=== PATIENT | female | born 1945 | race Caucasian/White ===

== ENCOUNTER → 2016-11-13 | Outpatient (REF) | payer MEDICARE ==
[~2016-11-13] MED LIST: /ADVA50050 IN; /CELE20CA OR; /TIOT18INH INH; ACET65TA OR; ALBU83IN IN; ASPI81TA63 OR; ATOR1TAB21 PO; B-1250TA3 PO; CALC600T71 PO; COLA100C PO; COLA100C2 OR; DIGO0.126 OR; DIOV160T5 OR; DULC5TAB PO; ELIQ5TAB PO; FENO1CAP PO; FOLI1TAB OR; FOLI1TAB2 PO; FURO40TA2 PO; GLUC500T OR; LASI40TA OR; LOPR50TA OR; METF1000 PO; METH2.5T OR; METO50TA2 PO; MEXI15CA PO; MIRA3350 PO; NICO21DI4 TD; OMEG100011 PO; OMEP20TA7 OR; PERC5TAB6 PO; PRED10TA2 OR; PROA1AER INH; RANI300T PO; SIMV40TA2 OR; TRAM50TA2 OR; TRIC145T19 OR; VALS1TAB47 PO; VITA1CAP7 PO
[2016-11-13 12:46] LABS: ALBUMIN/GLOBULIN RATIO 0.94 (1.00-1.93); BILIRUBIN,TOTAL 0.2 MG/DL (0.2-1.0); CALCIUM LEVEL 8.3 MG/DL (8.8-10.2); CREATININE FOR GFR 1.25 MG/DL (0.55-1.02); GLOMERULAR FILTRATION RATE 45.2 (>45); POTASSIUM SERUM 4.2 MEQ/L (3.5-5.1); TOTAL PROTEIN 6.2 GM/DL (6.4-8.2)
[2016-11-13 12:47] LABS: MEAN CORPUSCULAR HEMOGLOBIN 31.2 pg (27.0-33.0); MEAN CORPUSCULAR HGB CONC 31.7 g/dl (32.0-36.5); MEAN CORPUSCULAR VOLUME 98.6 fl (80.0-96.0); RED CELL DISTRIBUTION WIDTH 14.3 % (11.5-14.5); WHITE BLOOD COUNT 6.4 K/mm3 (4.0-10.0)
== END ==
LOC: M LABDRAW1 11:46
PROVIDERS: ATTEND Nurse Practitioner Family
DX: E55.9 Vitamin D deficiency, unspecified (principal); E78.00 Pure hypercholesterolemia, unspecified; E11.9 Type 2 diabetes mellitus without complications; I10 Essential (primary) hypertension

== ENCOUNTER → 2016-11-14 | Outpatient (CLI) | payer MEDICARE ==
--- NOTE | 2016-11-14 11:19 | REP ---
CT LEFT HIP: CT left hip is performed in the axial plane. Sagittal and coronal reconstruction images are performed. I see no evidence of acute fracture or dislocation. Old fracture is noted of the right pubis. There are moderate degenerative changes at the left hip joint with moderate diffuse joint space narrowing, subchondral sclerosis and spurring. No suspicious bone lesion is seen in this region. There are vascular calcifications diffusely with an arterial graft crossing from the left common femoral artery over toward the right. No other significant abnormality is seen of the visualized soft tissue structures. IMPRESSION: Moderate degenerative changes. No acute fracture. Old fracture right pubis. Signed by Raymundo Baeza MD 11/14/2016 04:42 P
== END ==
LOC: M RAD 09:27
PROVIDERS: ATTEND Orthopaedic Surgery
DX: M16.12 Unilateral primary osteoarthritis, left hip (principal)

== ENCOUNTER → 2016-12-31 | Outpatient (REF) | payer MEDICARE ==
[~2016-12-31] MED LIST changes: -COLA100C PO; +COLA100C3 PO
[2016-12-31 14:02] LABS: MEAN CORPUSCULAR HEMOGLOBIN 30.8 pg (27.0-33.0); MEAN CORPUSCULAR HGB CONC 32.3 g/dl (32.0-36.5); MEAN CORPUSCULAR VOLUME 95.4 fl (80.0-96.0); RED CELL DISTRIBUTION WIDTH 14.7 % (11.5-14.5); WHITE BLOOD COUNT 5.4 K/mm3 (4.0-10.0)
[2016-12-31 14:25] LABS: ALBUMIN 3.1 GM/DL (3.2-5.2); ALBUMIN/GLOBULIN RATIO 1.11 (1.00-1.93); ALKALINE PHOSPHATASE 50 U/L (45-117); ALT/SGPT 13 U/L (12-78); ANION GAP 5 MEQ/L (8-16); AST/SGOT 8 U/L (15-37); BILIRUBIN,DIRECT < 0.1 MG/DL (0.0-0.2); BILIRUBIN,TOTAL 0.2 MG/DL (0.2-1.0); BLOOD UREA NITROGEN 29 MG/DL (7-18); CALCIUM LEVEL 8.4 MG/DL (8.8-10.2); CARBON DIOXIDE LEVEL 35 MEQ/L (21-32); CHLORIDE LEVEL 102 MEQ/L (98-107); CHOLESTEROL LEVEL 147 MG/DL (<200); CREATININE FOR GFR 0.96 MG/DL (0.55-1.02); GLOMERULAR FILTRATION RATE > 60.0 (>45); GLUCOSE, FASTING 90 MG/DL (80-110); POTASSIUM SERUM 4.4 MEQ/L (3.5-5.1); SODIUM LEVEL 142 MEQ/L (136-145); TOTAL PROTEIN 5.9 GM/DL (6.4-8.2); TRIGLYCERIDES LEVEL 143 MG/DL (<150)
== END ==
LOC: M LABDRAW1 12:56
PROVIDERS: ATTEND Nurse Practitioner Family
DX: E11.9 Type 2 diabetes mellitus without complications (principal); I10 Essential (primary) hypertension; K21.9 Gastro-esophageal reflux disease without esophagitis; J44.9 Chronic obstructive pulmonary disease, unspecified; I50.9 Heart failure, unspecified; D64.9 Anemia, unspecified

== ENCOUNTER → 2017-02-12 | Outpatient (REF) | payer MEDICARE ==
[2017-02-12 16:15] LABS: FREE T4 1.27 NG/DL (0.76-1.46); PERCENT SATURATION 27.2 % (13.2-37.4)
== END ==
LOC: M LABDRAW1 13:02
PROVIDERS: ATTEND Internal Medicine Cardiovascular Disease
DX: R53.83 Other fatigue (principal); D64.9 Anemia, unspecified

== ENCOUNTER → 2017-04-25 | Outpatient (REF) | payer MEDICARE ==
[~2017-04-25] MED LIST changes: +CALC1TAB5 PO; -CALC600T71 PO; -COLA100C3 PO; +COLA100C5 PO; -FOLI1TAB2 PO; +FOLI1TAB4 PO; -METF1000 PO; +METF10004 PO; -METO50TA2 PO; +METO50TA7 PO; +PERC5TAB12 PO; -PERC5TAB6 PO; -PROA1AER INH; +PROAAER10 INH
[2017-04-25 14:16] LABS: MEAN CORPUSCULAR HEMOGLOBIN 31.5 pg (27.0-33.0); MEAN CORPUSCULAR HGB CONC 32.8 g/dl (32.0-36.5); MEAN CORPUSCULAR VOLUME 95.8 fl (80.0-96.0); RED CELL DISTRIBUTION WIDTH 14.4 % (11.5-14.5)
[2017-04-25 14:28] LABS: ALBUMIN 3.6 GM/DL (3.2-5.2); ALBUMIN/GLOBULIN RATIO 1.03 (1.00-1.93); BILIRUBIN,TOTAL 0.3 MG/DL (0.2-1.0); CALCIUM LEVEL 9.2 MG/DL (8.8-10.2); CREATININE FOR GFR 1.18 MG/DL (0.55-1.02); GLOMERULAR FILTRATION RATE 48.2 (>39); PERCENT SATURATION 24.2 % (13.2-45.0); TOTAL PROTEIN 7.1 GM/DL (6.4-8.2)
== END ==
LOC: M LABDRAW1 13:54
PROVIDERS: ATTEND Nurse Practitioner Family
DX: E78.5 Hyperlipidemia, unspecified (principal); I10 Essential (primary) hypertension; E11.9 Type 2 diabetes mellitus without complications; D64.9 Anemia, unspecified; E55.9 Vitamin D deficiency, unspecified

== ENCOUNTER → 2017-08-04 | Outpatient (REF) | payer OTHER ==
[2017-08-04 16:15] LABS: MEAN CORPUSCULAR HGB CONC 31.3 g/dl (32.0-36.5); MEAN CORPUSCULAR VOLUME 99.1 fl (80.0-96.0); PLATELET COUNT, AUTOMATED 221 10^3/uL (150-450); RED CELL DISTRIBUTION WIDTH 14.3 % (11.5-14.5); WHITE BLOOD COUNT 6.1 10^3/uL (4.0-10.0)
[2017-08-04 16:44] LABS: ALBUMIN 3.3 GM/DL (3.2-5.2); ALBUMIN/GLOBULIN RATIO 1.06 (1.00-1.93); BILIRUBIN,TOTAL 0.3 MG/DL (0.2-1.0); CALCIUM LEVEL 8.8 MG/DL (8.8-10.2); CREATININE FOR GFR 1.01 MG/DL (0.55-1.02); GLOMERULAR FILTRATION RATE 57.7 (>39); POTASSIUM SERUM 4.4 MEQ/L (3.5-5.1); TOTAL PROTEIN 6.4 GM/DL (6.4-8.2)
== END ==
LOC: M LABDRAW1 15:40
PROVIDERS: ATTEND Internal Medicine Cardiovascular Disease
DX: E78.00 Pure hypercholesterolemia, unspecified (principal); I10 Essential (primary) hypertension; E11.9 Type 2 diabetes mellitus without complications

== ENCOUNTER → 2017-08-04 | Outpatient (REF) | payer OTHER ==
[2017-08-04 16:13] LABS: BASO % 0.5 % (0.0-1.0); EOS # 0.3 10^3/uL (0.0-0.50); EOS % 4.1 % (0.0-3.0); IMMATURE GRANULOCYTE % 0.5 % (0-0); LYMPH # 2.1 10^3/uL (1.5-4.5); LYMPH % 34.7 % (24.0-44.0); MEAN CORPUSCULAR HGB CONC 31.3 g/dl (32.0-36.5); MEAN CORPUSCULAR VOLUME 99.1 fl (80.0-96.0); MONO # 0.6 10^3/uL (0.0-0.8); MONO % 9.7 % (0.0-5.0); NEUTROPHILS # 3.1 10^3/uL (1.8-7.7); NEUTROPHILS % 50.5 % (36.0-66.0); PLATELET COUNT, AUTOMATED 221 10^3/uL (150-450); RED CELL DISTRIBUTION WIDTH 14.3 % (11.5-14.5); WHITE BLOOD COUNT 6.1 10^3/uL (4.0-10.0)
[2017-08-04 16:36] LABS: ALBUMIN 3.3 GM/DL (3.2-5.2); ALBUMIN/GLOBULIN RATIO 1.1 (1.00-1.93); BILIRUBIN,TOTAL 0.3 MG/DL (0.2-1.0); CALCIUM LEVEL 8.9 MG/DL (8.8-10.2); CREATININE FOR GFR 1.01 MG/DL (0.55-1.02); GLOMERULAR FILTRATION RATE 57.7 (>39); POTASSIUM SERUM 4.4 MEQ/L (3.5-5.1); TOTAL PROTEIN 6.3 GM/DL (6.4-8.2)
== END ==
LOC: M LABDRAW1 15:45
PROVIDERS: ATTEND Internal Medicine Cardiovascular Disease
DX: I50.42 Chronic combined systolic (congestive) and diastolic (congestive) heart failure (principal); I48.0 Paroxysmal atrial fibrillation

== ENCOUNTER → 2017-12-23 | Outpatient (REF) | payer OTHER ==
[2017-12-23 15:28] LABS: HEMATOCRIT 34.2 % (36.0-47.0); HEMOGLOBIN 10.7 g/dl (12.0-15.5); MEAN CORPUSCULAR HGB CONC 31.3 g/dl (32.0-36.5); MEAN CORPUSCULAR VOLUME 95.8 fl (80.0-96.0); PLATELET COUNT, AUTOMATED 242 10^3/uL (150-450); RED BLOOD COUNT 3.57 10^6/uL (4.00-5.40); RED CELL DISTRIBUTION WIDTH 14.2 % (11.5-14.5); WHITE BLOOD COUNT 7.2 10^3/uL (4.0-10.0)
[2017-12-23 15:52] LABS: ANION GAP 5 MEQ/L (8-16); BLOOD UREA NITROGEN 24 MG/DL (7-18); CALCIUM LEVEL 9.2 MG/DL (8.8-10.2); CARBON DIOXIDE LEVEL 34 MEQ/L (21-32); CHLORIDE LEVEL 105 MEQ/L (98-107); CREATININE FOR GFR 1.49 MG/DL (0.55-1.30); GLOMERULAR FILTRATION RATE 36.8 (>39); GLUCOSE, FASTING 176 MG/DL (70-100); POTASSIUM SERUM 4.2 MEQ/L (3.5-5.1); SODIUM LEVEL 144 MEQ/L (136-145)
== END ==
LOC: M LABDRAW1 14:17
DX: I48.91 Unspecified atrial fibrillation (principal)
CPT/HCPCS: 80048

== ENCOUNTER → 2018-01-02 | Outpatient (CLI) | payer OTHER ==
[2018-01-02 08:29] LABS: INR 1.09; PROTHROMBIN TIME 14.3 SECONDS (12.4-14.5)
[2018-01-02 08:47] LABS: ANION GAP 5 MEQ/L (8-16); BLOOD UREA NITROGEN 30 MG/DL (7-18); CALCIUM LEVEL 8.6 MG/DL (8.8-10.2); CARBON DIOXIDE LEVEL 34 MEQ/L (21-32); CHLORIDE LEVEL 104 MEQ/L (98-107); CREATININE FOR GFR 1.55 MG/DL (0.55-1.30); GLOMERULAR FILTRATION RATE 35.2 (>39); GLUCOSE, FASTING 101 MG/DL (70-100); POTASSIUM SERUM 4.2 MEQ/L (3.5-5.1); SODIUM LEVEL 143 MEQ/L (136-145)
== END ==
LOC: M LAB 06:47
DX: Z79.01 Long term (current) use of anticoagulants (principal); Z79.899 Other long term (current) drug therapy
CPT/HCPCS: 83735

== ENCOUNTER → 2018-01-23 | Outpatient (REF) | payer OTHER ==
[2018-01-23 15:35] LABS: HEMATOCRIT 28.1 % (36.0-47.0); HEMOGLOBIN 8.9 g/dl (12.0-15.5); MEAN CORPUSCULAR HEMOGLOBIN 30.2 pg (27.0-33.0); MEAN CORPUSCULAR HGB CONC 31.7 g/dl (32.0-36.5); MEAN CORPUSCULAR VOLUME 95.3 fl (80.0-96.0); PLATELET COUNT, AUTOMATED 218 10^3/uL (150-450); RED BLOOD COUNT 2.95 10^6/uL (4.00-5.40); RED CELL DISTRIBUTION WIDTH 14.6 % (11.5-14.5); WHITE BLOOD COUNT 6.6 10^3/uL (4.0-10.0)
[2018-01-23 15:43] LABS: ANION GAP 5 MEQ/L (8-16); BLOOD UREA NITROGEN 38 MG/DL (7-18); CALCIUM LEVEL 8.9 MG/DL (8.8-10.2); CARBON DIOXIDE LEVEL 33 MEQ/L (21-32); CHLORIDE LEVEL 105 MEQ/L (98-107); CREATININE FOR GFR 1.61 MG/DL (0.55-1.30); GLOMERULAR FILTRATION RATE 33.7 (>39); GLUCOSE, FASTING 97 MG/DL (70-100); POTASSIUM SERUM 4.3 MEQ/L (3.5-5.1); SODIUM LEVEL 143 MEQ/L (136-145)
== END ==
LOC: M LABDRAW1 11:18
DX: I48.91 Unspecified atrial fibrillation (principal)
CPT/HCPCS: 80048

== ENCOUNTER → 2018-03-30 | Outpatient (REF) | payer OTHER ==
[2018-03-30 13:31] LABS: HEMOGLOBIN 9.6 g/dl (12.0-15.5); MEAN CORPUSCULAR HEMOGLOBIN 30.9 pg (27.0-33.0); MEAN CORPUSCULAR VOLUME 99.7 fl (80.0-96.0); PLATELET COUNT, AUTOMATED 273 10^3/uL (150-450); RED BLOOD COUNT 3.11 10^6/uL (4.00-5.40); RED CELL DISTRIBUTION WIDTH 14.2 % (11.5-14.5)
[2018-03-30 13:51] LABS: ALBUMIN 3.3 GM/DL (3.2-5.2); ALBUMIN/GLOBULIN RATIO 0.92 (1.00-1.93); ALKALINE PHOSPHATASE 82 U/L (45-117); ALT/SGPT 12 U/L (12-78); ANION GAP 7 MEQ/L (8-16); AST/SGOT 10 U/L (7-37); BILIRUBIN,TOTAL 0.3 MG/DL (0.2-1.0); BLOOD UREA NITROGEN 31 MG/DL (7-18); CALCIUM LEVEL 8.7 MG/DL (8.8-10.2); CARBON DIOXIDE LEVEL 32 MEQ/L (21-32); CHLORIDE LEVEL 104 MEQ/L (98-107); CHOLESTEROL LEVEL 115 MG/DL (<200); CHOLESTEROL RISK RATIO 3.382 (<5); CPK CREATINE PHOSPHOKINASE 30 U/L (26-192); CREATININE FOR GFR 1.39 MG/DL (0.55-1.30); FERRITIN 25 NG/ML (8-252); GLOMERULAR FILTRATION RATE 39.8 (>39); GLUCOSE, FASTING 83 MG/DL (70-100); HDL CHOLESTEROL 34 MG/DL (>40); IRON (FE) 50 UG/DL (50-170); LDL CHOLESTEROL 51.6 MG/DL (<100); NON-HDL-C 81 MG/DL; PERCENT SATURATION 19.6 % (13.2-45.0); POTASSIUM SERUM 5.1 MEQ/L (3.5-5.1); SODIUM LEVEL 143 MEQ/L (136-145); TOTAL IRON BINDING CAPACITY 255 UG/DL (250-450); TOTAL PROTEIN 6.9 GM/DL (6.4-8.2); TRIGLYCERIDES LEVEL 147 MG/DL (<150)
[2018-03-30 13:55] LABS: ESTIMATED AVERAGE GLUCOSE 82 MG/DL (60-110); HEMOGLOBIN A1c 4.5 %
[2018-03-30 14:25] LABS: CREATININE, URINE 64.4 MG/DL; MALB URINE SIEMENS 5.1 MG/L; MAU/CREAT RATIO 7.9 MCG/MG (0.0-30.0)
== END ==
LOC: M LABDRAW1 13:06
DX: I10 Essential (primary) hypertension (principal); E11.9 Type 2 diabetes mellitus without complications; E78.00 Pure hypercholesterolemia, unspecified
CPT/HCPCS: 82550

== ENCOUNTER → 2018-06-05 | Outpatient (REF) | payer OTHER ==
[2018-06-05 11:47] LABS: HEMATOCRIT 34.7 % (36.0-47.0); HEMOGLOBIN 11.1 g/dl (12.0-15.5); MEAN CORPUSCULAR HEMOGLOBIN 30.7 pg (27.0-33.0); MEAN CORPUSCULAR VOLUME 95.9 fl (80.0-96.0); PLATELET COUNT, AUTOMATED 267 10^3/uL (150-450); RED BLOOD COUNT 3.62 10^6/uL (4.00-5.40); WHITE BLOOD COUNT 7.5 10^3/uL (4.0-10.0)
[2018-06-05 13:39] LABS: ALBUMIN 3.8 GM/DL (3.2-5.2); ALBUMIN/GLOBULIN RATIO 1.12 (1.00-1.93); ALKALINE PHOSPHATASE 88 U/L (45-117); ALT/SGPT 10 U/L (12-78); ANION GAP 8 MEQ/L (8-16); AST/SGOT 10 U/L (7-37); BILIRUBIN,TOTAL 0.4 MG/DL (0.2-1.0); BLOOD UREA NITROGEN 35 MG/DL (7-18); CALCIUM LEVEL 9.8 MG/DL (8.8-10.2); CARBON DIOXIDE LEVEL 33 MEQ/L (21-32); CHLORIDE LEVEL 101 MEQ/L (98-107); CHOLESTEROL LEVEL 145 MG/DL (<200); CHOLESTEROL RISK RATIO 4.027 (<5); CPK CREATINE PHOSPHOKINASE 51 U/L (26-192); CREATININE FOR GFR 1.53 MG/DL (0.55-1.30); GLOMERULAR FILTRATION RATE 35.6 (>39); GLUCOSE, FASTING 95 MG/DL (70-100); HDL CHOLESTEROL 36 MG/DL (>40); LDL CHOLESTEROL 68 MG/DL (<100); NON-HDL-C 109 MG/DL; SODIUM LEVEL 142 MEQ/L (136-145); TOTAL PROTEIN 7.2 GM/DL (6.4-8.2); TRIGLYCERIDES LEVEL 207 MG/DL (<150)
[2018-06-05 14:19] LABS: CREATININE, URINE 16.8 MG/DL; MALB URINE SIEMENS < 5.0 MG/L
[2018-06-05 14:20] LABS: ESTIMATED AVERAGE GLUCOSE 97 MG/DL (60-110)
[2018-06-05 14:21] LABS: MAU/CREAT RATIO 29.8 MCG/MG (0.0-30.0)
== END ==
LOC: M LABDRAW1 10:51
DX: E11.9 Type 2 diabetes mellitus without complications (principal); I10 Essential (primary) hypertension; E78.00 Pure hypercholesterolemia, unspecified
CPT/HCPCS: 82550

== ENCOUNTER → 2018-10-14 | Outpatient (REF) | payer OTHER ==
[~2018-10-14] MED LIST changes: +FOLI1TAB11 PO; -FOLI1TAB4 PO
[2018-10-14 13:37] LABS: HEMATOCRIT 33.4 % (36.0-47.0); HEMOGLOBIN 10.1 g/dl (12.0-15.5); MEAN CORPUSCULAR HEMOGLOBIN 30.4 pg (27.0-33.0); MEAN CORPUSCULAR HGB CONC 30.2 g/dl (32.0-36.5); MEAN CORPUSCULAR VOLUME 100.6 fl (80.0-96.0); PLATELET COUNT, AUTOMATED 280 10^3/uL (150-450); RED BLOOD COUNT 3.32 10^6/uL (4.00-5.40); WHITE BLOOD COUNT 7.3 10^3/uL (4.0-10.0)
[2018-10-14 13:45] LABS: ALBUMIN 3.6 GM/DL (3.2-5.2); BILIRUBIN,TOTAL 0.4 MG/DL (0.2-1.0); CALCIUM LEVEL 8.8 MG/DL (8.8-10.2); CHOLESTEROL RISK RATIO 3.729 (<5); CREATININE FOR GFR 1.54 MG/DL (0.55-1.30); GLOMERULAR FILTRATION RATE 35.4 (>39); POTASSIUM SERUM 4.5 MEQ/L (3.5-5.1); TOTAL PROTEIN 6.8 GM/DL (6.4-8.2)
[2018-10-14 14:25] LABS: HEMOGLOBIN A1c 4.4 %
[2018-10-14 14:29] LABS: CREATININE, URINE 99.8 MG/DL; MALB URINE SIEMENS 10.4 MG/L; MAU/CREAT RATIO 10.4 MCG/MG (0.0-30.0)
== END ==
LOC: M LABDRAW1 11:23
PROVIDERS: ATTEND Nurse Practitioner Family
DX: J40 Bronchitis, not specified as acute or chronic (principal); I10 Essential (primary) hypertension; E11.9 Type 2 diabetes mellitus without complications; E78.00 Pure hypercholesterolemia, unspecified

== ENCOUNTER → 2019-01-21 | Outpatient (REF) | payer OTHER ==
[~2019-01-21] MED LIST changes: -/ADVA50050 IN; -/CELE20CA OR; -/TIOT18INH INH; +ADVA1AER2 IN; +CELE1CAP4 OR; +D-3-50003 PO; -FENO1CAP PO; +FENO45CA3 PO; +SPIR1CAP INH; -VALS1TAB47 PO; +VALS1TAB67 PO; -VITA1CAP7 PO
[2019-01-21 12:55] LABS: ALBUMIN 3.3 GM/DL (3.2-5.2); BILIRUBIN,TOTAL 0.3 MG/DL (0.2-1.0); CALCIUM LEVEL 8.7 MG/DL (8.8-10.2); CHOLESTEROL RISK RATIO 3.146 (<5); CREATININE FOR GFR 1.57 MG/DL (0.55-1.30); GLOMERULAR FILTRATION RATE 34.6 (>39); POTASSIUM SERUM 4.3 MEQ/L (3.5-5.1); TOTAL PROTEIN 7.1 GM/DL (6.4-8.2)
[2019-01-21 12:56] LABS: HEMOGLOBIN 11.1 g/dl (12.0-15.5); MEAN CORPUSCULAR HEMOGLOBIN 32.1 pg (27.0-33.0); MEAN CORPUSCULAR HGB CONC 30.8 g/dl (32.0-36.5); PLATELET COUNT, AUTOMATED 299 10^3/uL (150-450); RED BLOOD COUNT 3.46 10^6/uL (4.00-5.40); WHITE BLOOD COUNT 7.5 10^3/uL (4.0-10.0)
[2019-01-21 13:02] LABS: TOTAL 25(OH) VITAMIN D 50.2 NG/ML (30.0-100.0)
[2019-01-21 13:14] LABS: HEMOGLOBIN A1c 4.6 %
[2019-01-21 13:21] LABS: CREATININE, URINE 97.8 MG/DL; MALB URINE SIEMENS 15.3 MG/L; MAU/CREAT RATIO 15.6 MCG/MG (0.0-30.0)
== END ==
LOC: M LABDRAW1 11:50
PROVIDERS: ATTEND Nurse Practitioner Family
DX: I10 Essential (primary) hypertension (principal); E78.5 Hyperlipidemia, unspecified; E55.9 Vitamin D deficiency, unspecified

== ENCOUNTER → 2019-03-16 | Outpatient (CLI) | payer MEDICARE ==
--- NOTE | 2019-03-16 23:11 | REP ---
Clinical: History of renal artery aneurysm. Screening for abdominal aortic aneurysm. Technique: Real time parsons scale ultrasound examination using curved array transducer. Findings: Abdominal aorta demonstrates moderate atheromatous plaquing without evidence for aneurysm. No periaortic fluid collections are identified. Proximal aorta 2.2 x 2.3 cm. Mid aorta (renal artery level) gassed out Mid aorta 2.2 x 2.1 cm. Distal aorta 2.6 x 2.3 cm. Right common iliac artery 0.9 cm maximal diameter. Left common iliac artery 0.9 cm maximal diameter. Impression: Atheromatous plaquing without evidence for abdominal aortic aneurysm. Electronically Signed by Eddi Bergman MD 03/16/2019 11:03 P
== END ==
LOC: M RAD 10:08
PROVIDERS: ATTEND Surgery Vascular Surgery
DX: I25.10 Atherosclerotic heart disease of native coronary artery without angina pectoris (principal); I72.2 Aneurysm of renal artery

== ENCOUNTER → 2019-04-30 | Outpatient (REF) | payer MEDICARE ==
[2019-04-30 14:02] LABS: HEMATOCRIT 34.4 % (36.0-47.0); HEMOGLOBIN 10.7 g/dl (12.0-15.5); MEAN CORPUSCULAR HEMOGLOBIN 31.7 pg (27.0-33.0); MEAN CORPUSCULAR HGB CONC 31.1 g/dl (32.0-36.5); MEAN CORPUSCULAR VOLUME 101.8 fl (80.0-96.0); PLATELET COUNT, AUTOMATED 243 10^3/uL (150-450); RED BLOOD COUNT 3.38 10^6/uL (4.00-5.40); WHITE BLOOD COUNT 6.6 10^3/uL (4.0-10.0)
[2019-04-30 14:26] LABS: CALCIUM LEVEL 8.9 MG/DL (8.8-10.2); CREATININE FOR GFR 1.39 MG/DL (0.55-1.30); GLOMERULAR FILTRATION RATE 39.7 (>39)
[2019-04-30 14:27] LABS: ALBUMIN 3.3 GM/DL (3.2-5.2); BILIRUBIN,TOTAL 0.4 MG/DL (0.2-1.0); CHOLESTEROL RISK RATIO 3.136 (<5); TOTAL PROTEIN 6.5 GM/DL (6.4-8.2)
[2019-04-30 14:36] LABS: CREATININE, URINE 73.2 MG/DL; MALB URINE SIEMENS 10.3 MG/L
[2019-04-30 14:44] LABS: HEMOGLOBIN A1c 5.6 %
== END ==
LOC: M LABDRAW1 13:22
PROVIDERS: ATTEND Nurse Practitioner Family
DX: I10 Essential (primary) hypertension (principal); E78.5 Hyperlipidemia, unspecified; E11.9 Type 2 diabetes mellitus without complications; E55.9 Vitamin D deficiency, unspecified

== ENCOUNTER → 2019-07-12 | Outpatient (REF) | payer MEDICARE ==
[2019-07-12 12:54] LABS: HEMATOCRIT 32.6 % (36.0-47.0); HEMOGLOBIN 10.1 g/dl (12.0-15.5); MEAN CORPUSCULAR HEMOGLOBIN 31.2 pg (27.0-33.0); MEAN CORPUSCULAR VOLUME 100.6 fl (80.0-96.0); PLATELET COUNT, AUTOMATED 237 10^3/uL (150-450); RED BLOOD COUNT 3.24 10^6/uL (4.00-5.40); WHITE BLOOD COUNT 8.5 10^3/uL (4.0-10.0)
[2019-07-12 13:18] LABS: ALBUMIN 3.2 GM/DL (3.2-5.2); BILIRUBIN,TOTAL 0.4 MG/DL (0.2-1.0); CALCIUM LEVEL 9.5 MG/DL (8.8-10.2); CHOLESTEROL RISK RATIO 3.357 (<5); CREATININE FOR GFR 1.75 MG/DL (0.55-1.30); GLOMERULAR FILTRATION RATE 30.4 (>39); POTASSIUM SERUM 4.3 MEQ/L (3.5-5.1); TOTAL PROTEIN 6.2 GM/DL (6.4-8.2)
[2019-07-12 15:19] LABS: TOTAL 25(OH) VITAMIN D 68.5 NG/ML (30.0-100.0)
== END ==
LOC: M LABDRAW1 11:31
PROVIDERS: ATTEND Nurse Practitioner Family
DX: I10 Essential (primary) hypertension (principal); E78.49 Other hyperlipidemia; E55.9 Vitamin D deficiency, unspecified

== ENCOUNTER 2019-07-18 01:27 | Emergency (ER) | payer MEDICARE ==
[~2019-07-18] VITALS: Ht 160 cm; Wt 64.5 kg
[2019-07-18] MEDS ORDERED: ASPI325T36 PO (03:39)
[2019-07-18 03:41] VITALS: BP 137/77
== END 2019-07-18 03:55 | disposition home or self-care (01) ==
LOC: M ED 01:27
DX: R04.0 Epistaxis (principal); Z79.899 Other long term (current) drug therapy; Z88.5 Allergy status to narcotic agent; Z88.8 Allergy status to other drugs, medicaments and biological substances

== ENCOUNTER 2019-09-17 22:18 | Emergency (ER) | payer MEDICARE ==
[~2019-09-17 22:18] MED LIST changes: +ASPI325T36 PO
[2019-09-17 23:08] LABS: BASO % 0.5 % (0.0-1.0); EOS # 0.1 10^3/uL (0.0-0.5); EOS % 0.7 % (0.0-3.0); HEMATOCRIT 31.3 % (36.0-47.0); HEMOGLOBIN 9.4 g/dl (12.0-15.5); LYMPH # 0.7 10^3/uL (1.5-5.0); MEAN CORPUSCULAR HEMOGLOBIN 30.4 pg (27.0-33.0); MEAN CORPUSCULAR VOLUME 101.3 fl (80.0-96.0); MONO # 1.3 10^3/uL (0.0-0.8); MONO % 15.3 % (0.0-5.0); NEUTROPHILS # 6.1 10^3/uL (1.5-8.5); NEUTROPHILS % 74.3 % (36.0-66.0); PLATELET COUNT, AUTOMATED 235 10^3/uL (150-450); RED BLOOD COUNT 3.09 10^6/uL (4.00-5.40); VENOUS BASE EXCESS 1.4 (-2.0-2.0); VENOUS HCO3 28.8 MEQ/L (23.0-27.0); VENOUS O2 SATURATION 66.8 % (60.0-80.0); VENOUS PARTIAL PRESSURE CO2 59.2 mmHg (38.0-50.0); VENOUS PARTIAL PRESSURE O2 37.1 mmHg (30.0-50.0); VENOUS PH 7.305 UNITS (7.330-7.430); VENOUS STANDARD HCO3 25.2 MEQ/L; VENOUS TOTAL CO2 30.6 MEQ/L (24.0-28.0); WHITE BLOOD COUNT 8.2 10^3/uL (4.0-10.0)
[2019-09-17] MEDS ORDERED: IPRATROPIUM 0.5MG/ALBUTEROL 2.5MG INH SOL UD 3ML (DUONEB)(J7620) NEB ONE (23:15)
[2019-09-17] MEDS ORDERED: dexameTHASONE 20 MG/5 ML VIAL (J1100) IV ONE (23:15)
[2019-09-17 23:23] LABS: BLOOD UREA NITROGEN 29 MG/DL (7-18); CALCIUM LEVEL 8.5 MG/DL (8.8-10.2); CARBON DIOXIDE LEVEL 32 MEQ/L (21-32); CHLORIDE LEVEL 100 MEQ/L (98-107); CK-MB VALUE MASS < 1.0 NG/ML (<3.6); CPK CREATINE PHOSPHOKINASE 40 U/L (26-192); CREATININE FOR GFR 1.99 MG/DL (0.55-1.30); GLOMERULAR FILTRATION RATE 26.2 (>39); GLUCOSE, FASTING 112 MG/DL (70-100); NT-PRO BNP 3060 PG/ML (<125); POTASSIUM SERUM 3.9 MEQ/L (3.5-5.1); SODIUM LEVEL 140 MEQ/L (136-145); TROPONIN I 0.03 NG/ML (< 0.10)
[2019-09-17] MEDS ORDERED: FUROSEMIDE 100 MG/10 ML VIAL (J1940) IV ONE (23:30)
[2019-09-18 01:04] LABS: INFLUENZA A AMPLIFICATION NEGATIVE (NEGATIVE); INFLUENZA B AMPLIFICATION NEGATIVE (NEGATIVE)
[2019-09-18 01:35] VITALS: BP 143/73
--- NOTE | 2019-09-18 11:10 | REP ---
CHEST, SINGLE VIEW: Comparison 08/30/2015. There is no evidence of acute infiltrate. No pleural effusion is seen. The heart is normal in size. The mediastinal silhouette is unremarkable. The visualized osseous structures are intact. There is a left pacemaker noted. IMPRESSION: No acute pulmonary disease. Electronically Signed by Raymundo Baeza MD 09/18/2019 03:56 P
--- NOTE | 2019-09-18 22:23 | ECGEPIP ---
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
== END 2019-09-18 01:36 | disposition home or self-care (01) ==
LOC: M ED 22:18
DX: J44.9 Chronic obstructive pulmonary disease, unspecified (principal); I50.9 Heart failure, unspecified; E11.9 Type 2 diabetes mellitus without complications; I11.0 Hypertensive heart disease with heart failure; N28.9 Disorder of kidney and ureter, unspecified; I48.91 Unspecified atrial fibrillation; E78.5 Hyperlipidemia, unspecified; K21.9 Gastro-esophageal reflux disease without esophagitis; D64.9 Anemia, unspecified; Z86.718 Personal history of other venous thrombosis and embolism; Z95.0 Presence of cardiac pacemaker; Z79.899 Other long term (current) drug therapy; Z79.84 Long term (current) use of oral hypoglycemic drugs; Z79.82 Long term (current) use of aspirin; Z88.5 Allergy status to narcotic agent; Z88.8 Allergy status to other drugs, medicaments and biological substances; F17.210 Nicotine dependence, cigarettes, uncomplicated
CPT/HCPCS: 36415; 71045; 80048; 82550; 82553; 82803; 83880; 84484; 85025; 87040; 87502; 93005; 94640; 96374; 96375; 99284; J1100; J1940

== ENCOUNTER → 2019-11-03 | Outpatient (REF) | payer MEDICARE ==
[2019-11-03 10:08] LABS: HEMATOCRIT 31.2 % (36.0-47.0); HEMOGLOBIN 9.7 g/dl (12.0-15.5); MEAN CORPUSCULAR HEMOGLOBIN 30.9 pg (27.0-33.0); MEAN CORPUSCULAR HGB CONC 31.1 g/dl (32.0-36.5); MEAN CORPUSCULAR VOLUME 99.4 fl (80.0-96.0); PLATELET COUNT, AUTOMATED 263 10^3/uL (150-450); RED BLOOD COUNT 3.14 10^6/uL (4.00-5.40); WHITE BLOOD COUNT 8.1 10^3/uL (4.0-10.0)
[2019-11-03 10:28] LABS: HEMOGLOBIN A1c 5.2 %
[2019-11-03 10:46] LABS: ALBUMIN 3.4 GM/DL (3.2-5.2); BILIRUBIN,TOTAL 0.3 MG/DL (0.2-1.0); CALCIUM LEVEL 8.7 MG/DL (8.8-10.2); CHOLESTEROL RISK RATIO 4.025 (<5); CREATININE FOR GFR 1.87 MG/DL (0.55-1.30); GLOMERULAR FILTRATION RATE 28.2 (>39); POTASSIUM SERUM 4.4 MEQ/L (3.5-5.1); TOTAL PROTEIN 6.5 GM/DL (6.4-8.2)
[2019-11-03 10:54] LABS: CREATININE, URINE 46.9 MG/DL; MALB URINE SIEMENS 7.2 MG/L; MAU/CREAT RATIO 15.3 MCG/MG (0.0-30.0)
[2019-11-03 11:59] LABS: TOTAL 25(OH) VITAMIN D 58.5 NG/ML (30.0-100.0)
== END ==
LOC: M LABDRAW1 08:50
PROVIDERS: ATTEND Nurse Practitioner Family
DX: I10 Essential (primary) hypertension (principal); E78.5 Hyperlipidemia, unspecified; E11.9 Type 2 diabetes mellitus without complications; D64.9 Anemia, unspecified; E55.9 Vitamin D deficiency, unspecified

== ENCOUNTER → 2019-11-25 | Outpatient (REF) | payer MEDICARE ==
[2019-11-25 13:55] LABS: HEMATOCRIT 31.5 % (36.0-47.0); HEMOGLOBIN 9.8 g/dl (12.0-15.5); MEAN CORPUSCULAR HEMOGLOBIN 31.4 pg (27.0-33.0); MEAN CORPUSCULAR HGB CONC 31.1 g/dl (32.0-36.5); PLATELET COUNT, AUTOMATED 307 10^3/uL (150-450); RED BLOOD COUNT 3.12 10^6/uL (4.00-5.40); WHITE BLOOD COUNT 7.2 10^3/uL (4.0-10.0)
[2019-11-25 14:15] LABS: CALCIUM LEVEL 8.8 MG/DL (8.8-10.2); CREATININE FOR GFR 1.59 MG/DL (0.55-1.30); POTASSIUM SERUM 5.1 MEQ/L (3.5-5.1)
== END ==
LOC: M LABDRAW1 11:42
PROVIDERS: ATTEND Nurse Practitioner Family
DX: D64.9 Anemia, unspecified (principal); E86.0 Dehydration

== ENCOUNTER → 2020-02-08 | Outpatient (CLI) | payer MEDICARE ==
[2020-02-08 11:49] LABS: BASO # 0.1 10^3/uL (0.0-0.2); BASO % 1.1 % (0.0-1.0); EOS # 0.3 10^3/uL (0.0-0.5); EOS % 4.6 % (0.0-3.0); HEMOGLOBIN 10.2 g/dl (12.0-15.5); LYMPH # 1.4 10^3/uL (1.5-5.0); LYMPH % 21.5 % (24.0-44.0); MEAN CORPUSCULAR HEMOGLOBIN 30.5 pg (27.0-33.0); MEAN CORPUSCULAR HGB CONC 30.9 g/dl (32.0-36.5); MEAN CORPUSCULAR VOLUME 98.8 fl (80.0-96.0); MONO # 0.6 10^3/uL (0.0-0.8); NEUTROPHILS % 62.3 % (36.0-66.0); PLATELET COUNT, AUTOMATED 265 10^3/uL (150-450); RED BLOOD COUNT 3.34 10^6/uL (4.00-5.40); WHITE BLOOD COUNT 6.3 10^3/uL (4.0-10.0)
[2020-02-08 13:07] LABS: ALBUMIN 3.3 GM/DL (3.2-5.2); BILIRUBIN,TOTAL 0.6 MG/DL (0.2-1.0); CALCIUM LEVEL 8.3 MG/DL (8.8-10.2); CHOLESTEROL RISK RATIO 3.743 (<5); CREATININE FOR GFR 1.9 MG/DL (0.55-1.30); GLOMERULAR FILTRATION RATE 27.7 (>39); POTASSIUM SERUM 5.4 MEQ/L (3.5-5.1); TOTAL PROTEIN 6.7 GM/DL (6.4-8.2)
== END ==
LOC: M LAB 11:04
PROVIDERS: ATTEND Internal Medicine Cardiovascular Disease
DX: I50.42 Chronic combined systolic (congestive) and diastolic (congestive) heart failure (principal); I44.2 Atrioventricular block, complete; I48.0 Paroxysmal atrial fibrillation

== ENCOUNTER → 2020-02-08 | Outpatient (CLI) | payer MEDICARE ==
[2020-02-08 11:49] LABS: HEMATOCRIT 32.7 % (36.0-47.0); MEAN CORPUSCULAR HEMOGLOBIN 30.1 pg (27.0-33.0); MEAN CORPUSCULAR HGB CONC 30.6 g/dl (32.0-36.5); MEAN CORPUSCULAR VOLUME 98.5 fl (80.0-96.0); PLATELET COUNT, AUTOMATED 262 10^3/uL (150-450); RED BLOOD COUNT 3.32 10^6/uL (4.00-5.40); WHITE BLOOD COUNT 6.4 10^3/uL (4.0-10.0)
[2020-02-08 12:41] LABS: HEMOGLOBIN A1c 4.5 %
[2020-02-08 13:02] LABS: CREATININE, URINE 63.7 MG/DL; MALB URINE SIEMENS 10.3 MG/L; MAU/CREAT RATIO 16.1 MCG/MG (0.0-30.0)
[2020-02-08 13:06] LABS: ALBUMIN 3.4 GM/DL (3.2-5.2); ALT/SGPT 14 U/L (12-78); BILIRUBIN,TOTAL 0.4 MG/DL (0.2-1.0); BLOOD UREA NITROGEN 55 MG/DL (7-18); CALCIUM LEVEL 8.9 MG/DL (8.8-10.2); CARBON DIOXIDE LEVEL 30 MEQ/L (21-32); CHLORIDE LEVEL 105 MEQ/L (98-107); CHOLESTEROL LEVEL 147 MG/DL (<200); CHOLESTEROL RISK RATIO 3.972 (<5); CPK CREATINE PHOSPHOKINASE 212 U/L (26-192); CREATININE FOR GFR 1.91 MG/DL (0.55-1.30); GLOMERULAR FILTRATION RATE 27.5 (>39); GLUCOSE, FASTING 86 MG/DL (70-100); HDL CHOLESTEROL 37 MG/DL (>40); LDL CHOLESTEROL 72 MG/DL (<100); NON-HDL-C 110 MG/DL; POTASSIUM SERUM 5.4 MEQ/L (3.5-5.1); SODIUM LEVEL 139 MEQ/L (136-145); TOTAL 25(OH) VITAMIN D 55.6 NG/ML (30.0-100.0); TOTAL PROTEIN 6.8 GM/DL (6.4-8.2); TRIGLYCERIDES LEVEL 191 MG/DL (<150); VITAMIN B12 LEVEL > 2000 PG/ML (247-911)
== END ==
LOC: M LAB 11:00
PROVIDERS: ATTEND Nurse Practitioner Family
DX: I11.0 Hypertensive heart disease with heart failure (principal); E78.5 Hyperlipidemia, unspecified; E11.9 Type 2 diabetes mellitus without complications; E55.9 Vitamin D deficiency, unspecified; E53.8 Deficiency of other specified B group vitamins; D64.9 Anemia, unspecified; I50.42 Chronic combined systolic (congestive) and diastolic (congestive) heart failure; I44.2 Atrioventricular block, complete; I48.0 Paroxysmal atrial fibrillation

== ENCOUNTER → 2020-02-14 | Outpatient (CLI) | payer MEDICARE ==
[2020-02-14 17:16] LABS: HEMATOCRIT 31.8 % (36.0-47.0); HEMOGLOBIN 9.3 g/dl (12.0-15.5); MEAN CORPUSCULAR HEMOGLOBIN 30.4 pg (27.0-33.0); MEAN CORPUSCULAR HGB CONC 29.2 g/dl (32.0-36.5); MEAN CORPUSCULAR VOLUME 103.9 fl (80.0-96.0); PLATELET COUNT, AUTOMATED 253 10^3/uL (150-450); RED BLOOD COUNT 3.06 10^6/uL (4.00-5.40); WHITE BLOOD COUNT 7.3 10^3/uL (4.0-10.0)
[2020-02-14 17:47] LABS: CALCIUM LEVEL 8.2 MG/DL (8.8-10.2); CREATININE FOR GFR 1.31 MG/DL (0.55-1.30); GLOMERULAR FILTRATION RATE 42.5 (>39); POTASSIUM SERUM 4.9 MEQ/L (3.5-5.1)
== END ==
LOC: M LAB 14:59
PROVIDERS: ATTEND Nurse Practitioner Family
DX: E86.0 Dehydration (principal); D64.9 Anemia, unspecified

== ENCOUNTER → 2020-03-06 | Outpatient (CLI) | payer MEDICARE ==
[2020-03-06 13:47] LABS: BASO # 0.1 10^3/uL (0.0-0.2); EOS # 0.3 10^3/uL (0.0-0.5); EOS % 4.3 % (0.0-3.0); HEMATOCRIT 36.3 % (36.0-47.0); HEMOGLOBIN 10.9 g/dl (12.0-15.5); LYMPH # 1.3 10^3/uL (1.5-5.0); LYMPH % 22.2 % (24.0-44.0); MEAN CORPUSCULAR HEMOGLOBIN 30.4 pg (27.0-33.0); MEAN CORPUSCULAR VOLUME 101.1 fl (80.0-96.0); MONO # 0.5 10^3/uL (0.0-0.8); NEUTROPHILS # 3.9 10^3/uL (1.5-8.5); NEUTROPHILS % 64.2 % (36.0-66.0); PLATELET COUNT, AUTOMATED 292 10^3/uL (150-450); RED BLOOD COUNT 3.59 10^6/uL (4.00-5.40)
[2020-03-06 14:08] LABS: CALCIUM LEVEL 9.1 MG/DL (8.8-10.2); CREATININE FOR GFR 1.63 MG/DL (0.55-1.30); GLOMERULAR FILTRATION RATE 32.9 (>39)
== END ==
LOC: M LAB 13:09
PROVIDERS: ATTEND Internal Medicine Cardiovascular Disease
DX: R06.02 Shortness of breath (principal)

== ENCOUNTER → 2020-03-08 | Outpatient (CLI) | payer MEDICARE | LOC: M LABSMTC 09:55 | PROVIDERS: ATTEND Internal Medicine Cardiovascular Disease | DX: Z01.818 Encounter for other preprocedural examination (principal); Z11.59 Encounter for screening for other viral diseases | CPT/HCPCS: C9803; U0003 ==

== ENCOUNTER → 2020-06-14 | Outpatient (REF) | payer MEDICARE | LOC: M LAB REF 17:27 | PROVIDERS: ATTEND Internal Medicine Nephrology | DX: D50.9 Iron deficiency anemia, unspecified (principal) ==

== ENCOUNTER → 2020-09-14 | Outpatient (REF) | payer MEDICARE ==
[2020-09-20 15:26] LABS: PERCENT SATURATION 32.1 % (13.2-45.0)
== END ==
LOC: M LAB REF 17:16
PROVIDERS: ATTEND Internal Medicine Nephrology
DX: D50.9 Iron deficiency anemia, unspecified (principal)

== ENCOUNTER 2020-11-30 15:08 | Inpatient (IN) | payer MEDICARE ==
[~2020-11-30] VITALS: Ht 160 cm; Wt 74.1 kg
[~2020-11-30 15:08] MED LIST changes: -ASPI325T36 PO; +ASPI325T49 PO
[2020-11-30] MEDS ORDERED: ACETAMINOPHEN 325 MG TAB PO ONE (16:55)
--- NOTE | 2020-11-30 17:26 | REP ---
INDICATION: fall to left side rib pain. COMPARISON: Chest 09/17/2019. TECHNIQUE: Four views left ribs performed as well as PA view chest. FINDINGS: Evaluation of left ribs is somewhat limited due to overlying pacemaker device. No definite rib fracture or bone lesion is seen. At the level of the hilum in the right mid lung zone there is a vague opacity which may represent a small area of infiltrate or a nodule. There appears to be an adjacent metallic clip from a possible prior biopsy. The heart is not enlarged. There is calcification of the thoracic aorta. IMPRESSION: No radiographic evidence of left rib fracture although the study is limited due to overlying left-sided pacemaker. In the right mid lung there is a vague focal opacity which may represent a focal nodule or infiltrate. There appears to be an adjacent clip possibly from a prior biopsy of that area. Clinical correlation is necessary. <Electronically signed by Raymundo Baeza > 11/30/20 [id number]
[2020-11-30 17:29] LABS: BASO # 0.1 10^3/uL (0.0-0.2); BASO % 0.4 % (0.0-1.0); EOS # 0.5 10^3/uL (0.0-0.5); EOS % 3.4 % (0.0-3.0); HEMATOCRIT 32.3 % (36.0-47.0); HEMOGLOBIN 9.7 g/dl (12.0-15.5); LYMPH # 1.2 10^3/uL (1.5-5.0); MEAN CORPUSCULAR HEMOGLOBIN 31.8 pg (27.0-33.0); MEAN CORPUSCULAR VOLUME 105.9 fl (80.0-96.0); MONO # 1.1 10^3/uL (0.0-0.8); NEUTROPHILS # 10.8 10^3/uL (1.5-8.5); NEUTROPHILS % 78.5 % (36.0-66.0); PLATELET COUNT, AUTOMATED 207 10^3/uL (150-450); RED BLOOD COUNT 3.05 10^6/uL (4.00-5.40); WHITE BLOOD COUNT 13.7 10^3/uL (4.0-10.0)
[2020-11-30] MEDS ORDERED: NS 500 ML IV ONE (18:00)
[2020-11-30 19:01] LABS: RSV AMPLIFICATION NEGATIVE (NEGATIVE)
[2020-11-30 19:05] LABS: ALBUMIN 3.2 GM/DL (3.2-5.2); ALT/SGPT 17 U/L (12-78); BILIRUBIN,DIRECT < 0.1 MG/DL (0.0-0.2); BILIRUBIN,TOTAL 0.3 MG/DL (0.2-1.0); CK-MB VALUE MASS 1.1 NG/ML (<3.6); CPK CREATINE PHOSPHOKINASE 64 U/L (26-192); LIPASE 104 U/L (73-393); MB/CK RELATIVE INDEX 1.72 (< OR =4); TOTAL PROTEIN 6.8 GM/DL (6.4-8.2); TROPONIN I < 0.02 NG/ML (< 0.10)
[2020-11-30] MEDS ORDERED: AZIT-12 PO (20:04)
[2020-11-30] MEDS ORDERED: VENTAER INH (20:04)
[2020-11-30] MEDS ORDERED: AMOX875T2 PO (20:04)
[2020-11-30] MEDS ORDERED: FERR1TAB8 PO (20:05)
[2020-11-30] MEDS ORDERED: ALLO10TA PO (20:05)
[2020-11-30] MEDS ORDERED: SITA50TAB PO (20:05)
[2020-11-30] MEDS ORDERED: PANT40TA29 PO (20:05)
[2020-11-30] MEDS ORDERED: DOCU100C16 PO (20:05)
[2020-11-30] MEDS ORDERED: FURO40TA2 PO (20:05)
[2020-11-30] MEDS ORDERED: GLIP2.5T6 PO (20:05)
[2020-11-30] MEDS ORDERED: AMIO200T3 PO (20:05)
[2020-11-30] MEDS ORDERED: CALC1CAP31 PO (20:05)
[2020-11-30] MEDS ORDERED: DILT120C89 PO (20:05)
[2020-11-30] MEDS ORDERED: RALO1TAB PO (20:05)
[2020-11-30] MEDS ORDERED: ALBU83IN INH (20:05)
[2020-11-30] MEDS ORDERED: ENTR1TAB PO (20:05)
[2020-11-30] MEDS ORDERED: CALC600T60 PO (20:05)
[2020-11-30] MEDS ORDERED: D31000TA2 PO (20:05)
[2020-11-30] MEDS ORDERED: FOLI1TAB11 PO (20:05)
[2020-11-30] MEDS ORDERED: ATOR1TAB21 PO (20:05)
--- NOTE | 2020-11-30 20:41 | HPEPDOC ---
General Date of Admission Nov 30, 2020 at 20:09 Date of Service: Nov 30, 2020 Chief Complaint The patient is a 75-year-old female admitted with a reason for visit of [place],Chest Pain,Fall. Exam Limitations: No limitations History of Present Illness HPI:This is a elderly female with Hx of COPD O2 dependent on 3L NC , CAD s/p pacemaker, DM2, who presents to [facility] ER with cc of L sided rib pain and L pelvic pain. 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 She states that she went to [place] ER and imagings were performed but no acute fractures found and she was discharged. She presents back to the ER with continous pain and states that the pain is constant and it is difficult to bear her entire weight on the left side. Denies CP, palpitations, or dizziness or syncopal episodes. Also denies SOB, abdominal pain, no worsened cough from her usual or shortness of breath, no worsening of lower extr edema. Past medical history COPD DM 2 Hypertension CAD s/p pacemaker Past family history noncontributory. Social history not actively smoking, quit in March 2020. Started smoking at age 15, 2 packs per day. Denies any alcohol or illicit drug use Imaging: PHYSICAL EXAM VITALS: See below. GENERAL: Pt is laying comfortably in bed in no acute distress, O2 dependent on 3L NC HEENT: EOMI. Conjunctiva and lids normal. CARDIOVASCULAR: Regular rate and rhythm, trace pedal edema appreciate, no JVD. PULMONARY: Clear to auscultation with good air movement. No wheezes, rales, or rhonchi appreciated. ABD: No tenderness to palpation. Normoactive bowel sounds to all four quadrants. No guarding on palpation EXTREMITIES: 2+ DP pulses. no bruising, cyanosis or clubbing, some almost healed laceration on the L arm from the fall MSK: tenderness in L rib area and hip area where she fell. no signs of bruising or hematoma or bleeding. NEURO: No focal neurological deficits. CN II-12 preserved. Strength 5/5 throughout; sensation intact This is an elderly female who sustained a mechanical fall on Friday resulting in uncontrolled pain in L rib and pelvic region will be admitted for further pain management. No acute findings on Plain films. ASSESSMENT AND PLAN #Mechanical fall - fall was on friday. workeup up at [place]- neg sent home - still reports pain in ribs and L hip. - ordered hip XR- pending - pain control -fall precautions -PT/OT eval and treat #leukocytosis - XR and procal ordered #HTN- c/w home meds #DM2- SSI fingerstick acqhs +hypoglycemic protocol #COPD -at baseline. currently on 3L NC satting >92% -duonebs PRN -XR ordered- pending results #CHF (unspecified) - does not seem to be in decompensated state - c/w home meds DVT ppx: heparin code: full Home Medications Scheduled Albuterol Sulf (Albuterol Sulfate) 2.5 Mg/3 Ml Vial.neb, 2.5 MG INH QID, (Reported) Allopurinol (Allopurinol) 100 Mg Tablet, 100 MG PO DAILY, (Reported) Amiodarone HCl (Amiodarone HCl) 200 Mg Tablet, 200 MG PO DAILY, (Reported) Amoxicillin/Potassium Clav (Amox-Clav 875-125 mg Tablet) 1 Each Tablet, 1 TAB PO BID, (Reported) FOR 10 DAYS, STARTED 11/27 Atorvastatin Calcium (Atorvastatin Calcium) 20 Mg Tablet, 20 MG PO DAILY, (Reported) Azithromycin (Azithromycin) 250 Mg Tablet, 250 MG PO DAILY, (Reported) FOR 5 DAYS, STARTED 11/27 Calcitriol (Calcitriol) 0.25 Mcg Capsule, 0.25 MCG PO DAILY, (Reported) Calcium Carbonate (Calcium) 600 Mg Tablet, 600 MG PO BID, (Reported) Cholecalciferol (Vitamin D3) (Vitamin D3) 1,000 Unit Tablet, 1,000 UNITS PO QHS, (Reported) Ferrous Sulfate (Ferrous Sulfate) 325 Mg Tablet, 325 MG PO BID, (Reported) Folic Acid (Folic Acid) 1 Mg Tablet, 1 MG PO DAILY, (Reported) Furosemide (Furosemide) 40 Mg Tablet, 40 MG PO DAILY, (Reported) Glipizide (Glipizide ER) 2.5 Mg Tab.er.24, 2.5 MG PO DAILY, (Reported) Pantoprazole Sodium (Pantoprazole Sodium) 40 Mg Tablet.dr, 40 MG PO DAILY, (Reported) Raloxifene HCl (Raloxifene HCl) 60 Mg Tablet, 60 MG PO DAILY, (Reported) Sacubitril/Valsartan (Entresto 24 mg-26 mg Tablet) 1 Each Tablet, 1 TAB PO BID, (Reported) Sitagliptin (Januvia) 50 Mg Tablet, 50 MG PO DAILY, (Reported) dilTIAZem HCl (Diltiazem 24Hr Cd) 120 Mg Cap.er.24h, 120 MG PO DAILY, (Reported) Scheduled PRN Albuterol Sulfate (Ventolin Hfa) 18 Gm Hfa.aer.ad, 2 PUFFS INH Q6H PRN for SOB/WHEEZING, (Reported) Docusate Sodium (Docusate Sodium) 100 Mg Capsule, 100 MG PO BID PRN for CONSTIPATION, (Reported) Allergies Coded Allergies: codeine (Verified Adverse Reaction, Intermediate, stabbing abd pain, 11/30/20) phenytoin (Verified Adverse Reaction, Intermediate, feels like being stabbed in abd, 11/30/20) gabapentin (Verified Adverse Reaction, Mild, VERTIGO, 11/30/20) oxycodone (Verified Adverse Reaction, Mild, SHAKINESS, 11/30/20) A-FIB/CHADSVASC A-FIB History Current/History of A-Fib/PAF?: No Current PO Anticoag Therapy: No Vital Signs Vital Signs Date Time Temp Pulse Resp B/P (MAP) Pulse Ox O2 Delivery O2 Flow Rate FiO2 11/30/20 18:37 97.8 72 26 150/67 (94) 98 Nasal Cannula 3.0 Laboratory Data Labs 24H Laboratory Tests 2 11/30/20 17:16: Immature Granulocyte % (Auto) 0.7, Neutrophils (%) (Auto) 78.5H, Lymphocytes (%) (Auto) 9.0L, Monocytes (%) (Auto) 8.0, Eosinophils (%) (Auto) 3.4H, Basophils (%) (Auto) 0.4, Neutrophils # (Auto) 10.8H, Lymphocytes # (Auto) 1.2L, Monocytes # (Auto) 1.1H, Eosinophils # (Auto) 0.5, Basophils # (Auto) 0.1, Nucleated Red Blood Cells % (auto) 0.0, NK-Vha-K-Type Natriuretic Peptide 1279H 11/30/20 17:20: POC Glucose (Misc Panel) 86, POC Sodium (Misc Panel) 142, POC Potassium (Misc Panel) 4.8, POC Chloride (Misc Panel) 103, POC Total CO2 (Misc Panel) 31.0H, POC Blood Urea Nitrogen (Misc Panel 46H, POC Ionized Calcium (Misc Panel) 4.6, POC Creatinine (Misc Panel) 3.0H, POC Hematocrit (Misc Panel) 29.0L 11/30/20 18:14: Coronavirus (COVID-19)(PCR) NEGATIVE, Influenza Type A (RT-PCR) NEGATIVE, Influenza Type B (RT-PCR) NEGATIVE, Respiratory Syncytial Virus (PCR) NEGATIVE 11/30/20 18:26: Total Bilirubin 0.3, Direct Bilirubin < 0.1, Aspartate Amino Transf (AST/SGOT) 15, Alanine Aminotransferase (ALT/SGPT) 17, Alkaline Phosphatase 63, Total Creatine Kinase 64, Creatine Kinase MB 1.1, Creatine Kinase MB Relative Index 1.72, Troponin I < 0.02, Total Protein 6.8, Albumin 3.2, Albumin/Globulin Ratio 0.9L, Lipase 104 CBC/BMP Laboratory Tests 11/30/20 17:16 Plan / VTE VTE Prophylaxis Ordered?: Yes GME ATTESTATION GME ATTESTATION My faculty preceptor for this patient encounter was physically present during the encounter and was fully available. All aspects of the patient interview, examination, medical decision making process, and medical care plan development were reviewed and approved by the faculty preceptor. The faculty preceptor is aware and concurs with the plan as stated in the body of this note and will attest to such by his/her cosignature. ATTENDING NOTE time of service 905pm is a 75 yr old w COPD, O2 dependence, HTN, HFpEF, P Afib, CKD and DLP who is admitted primarily for ELIER; she also has chest wall & hip pain related to a fall. rest per 's H&P Judy Solis DO Nov 30, 2020 20:41 COLETTE BUENROSTRO MD Dec 01, 2020 07:06
[2020-11-30] MEDS ORDERED: DOCUSATE SODIUM 100MG CAPSULE PO PRN (20:45)
[2020-11-30] MEDS ORDERED: ALBUTEROL 90 MCG/ACT 8GM HFA INHALER INH PRN (20:45)
[2020-11-30] MEDS ORDERED: GLUCOSE 4GM CHEW TABLET PO PRN (20:55)
[2020-11-30] MEDS ORDERED: DEXTROSE 50% 50 ML SYRINGE IV PRN (20:55)
[2020-11-30] MEDS ORDERED: GLUCAGON INJ 1MG VIAL SC PRN (20:55)
[2020-11-30 20:57] LABS: VENOUS BASE EXCESS 1.3 (-2.0-2.0); VENOUS HCO3 28.3 MEQ/L (23.0-27.0); VENOUS O2 SATURATION 72.4 % (60.0-80.0); VENOUS PARTIAL PRESSURE CO2 57.3 mmHg (38.0-50.0); VENOUS PARTIAL PRESSURE O2 40.3 mmHg (30.0-50.0); VENOUS PH 7.311 UNITS (7.330-7.430); VENOUS STANDARD HCO3 25.2 MEQ/L
[2020-11-30] MEDS ORDERED: FERROUS SULFATE 325MG TAB PO SCH (21:00)
[2020-11-30] MEDS: HumaLOG INSULIN (NovoLOG) PER UNIT SC SCH (21:00)
[2020-11-30 21:15] VITALS: BP 166/76
[2020-11-30] MEDS: ENTRESTO 24-26MG TABLET (SACUBITRIL/VALSARTAN) PO SCH (22:41)
[2020-11-30] MEDS: VITAMIN D 1,000 INTERNATIONAL UNITS TABLET PO SCH (22:41)
[2020-11-30] MEDS: ACETAMINOPHEN TAB 650MG DOSE (2X325MG) PO PRN (22:46)
--- NOTE | 2020-12-01 02:05 | ECGEPIP ---
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
[2020-12-01] MEDS: HEPARIN SOD (PORCINE) 5000UNITS/ML 1ML VIAL/SYRINGE SC SCH ×3 (05:20→21:08)
[2020-12-01] MEDS: ACETAMINOPHEN TAB 650MG DOSE (2X325MG) PO PRN ×3 (05:20→21:09)
[2020-12-01 06:00] VITALS: BP 111/57
[2020-12-01 06:11] LABS: HEMATOCRIT 29.7 % (36.0-47.0); HEMOGLOBIN 8.9 g/dl (12.0-15.5); MEAN CORPUSCULAR HEMOGLOBIN 31.4 pg (27.0-33.0); MEAN CORPUSCULAR VOLUME 104.9 fl (80.0-96.0); PLATELET COUNT, AUTOMATED 194 10^3/uL (150-450); RED BLOOD COUNT 2.83 10^6/uL (4.00-5.40); WHITE BLOOD COUNT 9.6 10^3/uL (4.0-10.0)
[2020-12-01 06:45] LABS: CALCIUM LEVEL 8.6 MG/DL (8.8-10.2); CREATININE FOR GFR 2.55 MG/DL (0.55-1.30); GLOMERULAR FILTRATION RATE 19.6 (>39); POTASSIUM SERUM 4.4 MEQ/L (3.5-5.1)
[2020-12-01] MEDS: ALBUTEROL SULFATE 2.5 MG/0.5 ML INH NEB SOLN INH SCH ×4 (07:11→20:27)
[2020-12-01] MEDS: HumaLOG INSULIN (NovoLOG) PER UNIT SC SCH ×4 (07:30→21:00)
[2020-12-01] MEDS ORDERED: FUROSEMIDE 40 MG TAB PO SCH (09:00)
[2020-12-01] MEDS ORDERED: FLUBLOK(EGG FREE)(QUAD)INFLUENZA VACC 0.5ML SYRINGE 18YRS & OLDER IM ONE (09:00)
[2020-12-01] MEDS: AMIODARONE 200 MG TAB (PACERONE) PO SCH (09:10)
[2020-12-01] MEDS: CALCITRIOL 0.25 MCG CAP (S0169) PO SCH (09:10)
[2020-12-01] MEDS: FOLIC ACID 1 MG TAB PO SCH (09:10)
[2020-12-01] MEDS: ATORVASTATIN 20 MG TAB PO SCH (09:10)
[2020-12-01] MEDS: allopurinoL 100 MG TAB PO SCH (09:10)
[2020-12-01] MEDS: PANTOPRAZOLE 40MG TAB (PROTONIX) PO SCH (09:10)
[2020-12-01] MEDS: ENTRESTO 24-26MG TABLET (SACUBITRIL/VALSARTAN) PO SCH ×2 (09:11→21:09)
[2020-12-01 09:12] LABS: CREATININE,RANDOM URINE 77.7 MG/DL
[2020-12-01 09:46] LABS: OSMOLALITY URINE 530 MOSM/KG (50-1400)
--- NOTE | 2020-12-01 10:36 | IPNPDOC ---
Text Note Date of Service The patient was seen on 12/01/20. NOTE Subjective: Patient was seen and examined tells me she's feeling well overall. With regards to her fall she tells me she didn't really quite fall she just misplaced her hand while trying to get out of bed and slipped rolling out of the bed onto the floor. I discussed her reason for admission with regards to her acute renal injury. She tells me she drinks multiple cups of coffee per day and rarely any water. There is no acute overnight events. Objective: Constitutional: Awake and alert, in no apparent distress ENT: Sclera are clear. Mucosa is moist. Respiratory: Lungs diminished breath sounds bilaterally. No respiratory distress. Cardiovascular: RRR S1 and S2 are normal, no murmur Gastrointestinal: Abdomen is soft, non distended, non tender Musculoskeletal: Lower extremity pitting edema 1/2+ Neurologic: No focal neurological deficit. Mental Status: A&O x3, normal affect Skin: Warm, dry Assessment/plan: This is an elderly female who sustained a mechanical fall on Friday resulting in uncontrolled pain in L rib and pelvic region will be admitted for further pain management. No acute findings on Plain films. # Acute kidney injury on chronic kidney disease: vs progression of CKD. FeUrea 56% suggestive of intrinsic kidney disease. Her cook supervisor Dr. Mcclellan was consulted. # Mechanical fall: Fell out of bed. Physical therapy evaluation. [facility] and he has been negative for acute fracture. # CHF: EF unkonwn. Fu echo. BNP is elevated. She does have some LE edema. Baseline unknown. Continue home medications. # Hypertension: Continue home meds. Monitor and titrate # DM: ISS. Frequent Accu-Cheks. Hypoglycemic precautions. # COPD: Not in exacerbation. Continue baseline 3 L oxygen by nasal cannula. Continue home inhalers. # DVT prophylaxis: Heparin A Yousef Hospitalist VS,[place], I+O VS, Danielbone, I+O Laboratory Tests 11/30/20 17:16 12/01/20 05:58 Vital Signs Date Time Temp Pulse Resp B/P (MAP) Pulse Ox O2 Delivery O2 Flow Rate FiO2 12/01/20 09:10 91 114/63 12/01/20 06:00 97.5 20 92 Nasal Cannula 2.0 I&O- Last 24 Hours up to 6 AM 12/01/20 05:59 Intake Total 860 ml Output Total 200 ml Balance 660 ml ADRIAN PAIGE MD Dec 01, 2020 10:36
[2020-12-01] MEDS: FUROSEMIDE 40MG/4ML VIAL (J1940) IV SCH ×2 (12:41→20:56)
[2020-12-01 14:00] VITALS: BP 120/50
--- NOTE | 2020-12-01 17:32 | CR ---
CONSULTATION DATE: 12/01/2020 CONSULTATION FOR: Chay Sepulveda M.D. REASON FOR CONSULTATION: Shortness of breath and acute renal failure in this lady with multiple chronic medical problems. HISTORY OF PRESENT ILLNESS: Mrs. Montanez is a 75-year-old female who was admitted due to acute kidney injury and shortness of breath. Apparently she fell at home about 5 days ago and injured left rib cage. She was seen in the emergency room at [facility] and was discharged; however, she continued to have pain in her chest. She came to the emergency room at [facility] last night, and labs were checked. Her kidney function was noticed to be worsened, and she was admitted. A nephrology consultation was requested, and patient is seen this morning. MEDICAL HISTORY: Significant for: 1. History of congestive heart failure. 2. History of type 2 diabetes. 3. History of hypertension. 4. History of coronary artery disease. 5. History of chronic kidney disease. 6. Chronic obstructive pulmonary disease (COPD). PERSONAL AND SOCIAL HISTORY: Patient denies any drug or alcohol use. She is a former smoker. FAMILY HISTORY: Noncontributory for this admission. HOME MEDICATIONS: - albuterol inhaler and nebulizer four times a day - allopurinol 100 mg daily - amiodarone 200 mg daily - Augmentin 500 mg twice a day - atorvastatin 20 mg daily - calcitriol 0.25 mcg daily - calcium carbonate 600 mg twice a day - vitamin D 1000 units daily - ferrous sulfate 325 mg twice a day - folic acid 1 mg daily - furosemide 40 mg daily - glipizide 2.5 mg daily - pantoprazole 40 mg daily - raloxifene 60 mg daily - Entresto 24/26 mg one tablet twice a day - diltiazem ER 120 mg daily - Januvia 50 mg daily ALLERGIES: She has allergy to CODEINE, PHENYTOIN, GABAPENTIN, and OXYCODONE. REVIEW OF SYSTEMS: Patient reports fall at home from the bed a few days ago. She denies any fever or chills. She denies any loss of consciousness. Ears, nose, and throat are unremarkable. Cardiovascular system is significant for history of congestive heart failure. She is short of breath and also reports leg edema. Respiratory system is negative for hemoptysis or pleuritic type of chest pain. Gastrointestinal (GI) system is negative for vomiting or diarrhea. Genitourinary () system is negative for dysuria or hematuria. Musculoskeletal system is significant for history of gout and leg edema. She also has chronic degenerative arthritis. Endocrine system is significant for diabetes, secondary hyperparathyroidism, and no history of thyroid problems. Psychosocial system negative for depression or anxiety. Neurological system is significant for peripheral neuropathy. Hematological system is significant for anemia of chronic kidney disease. She is currently not on any anticoagulation. PHYSICAL EXAMINATION: Temperature 979.5 degrees Fahrenheit, heart rate 88 per minute, respiratory rate 20 per minute, blood pressure 114/63 mmHg and oxygen saturation 92% on 2 liters oxygen. Head is atraumatic. Neck supple, and jugular venous distention (JVD) about 9 cm above sternal angle. Heart sounds are irregular in rhythm and lungs with basilar rales, more prominent on the right than the left. Abdomen is soft and nontender, and bowel sounds are normal. Extremities without any cyanosis or clubbing. She has 1+ leg edema bilaterally. Neurologically, she is awake, alert, and without a focal deficit. Today's labs show sodium 144, potassium 4.4, CO2 of 31, BUN 47, and creatinine 2.55. Glucose 86 and calcium 8.6. Yesterday a BNP level was 1279. Lipase level was 104, and her liver enzymes were all within normal range. Urinalysis completely unremarkable. Chest x-ray was negative for any rib fracture. PROBLEMS: 1. Acute on chronic congestive heart failure. She most likely has diastolic congestive heart failure. Her volume status is clinically decompensated, and I am going to start her on intravenous Lasix 40 mg every 8 hours. We will monitor closely and adjust medications as needed. 2. Acute renal failure superimposed on chronic kidney disease. I suspect this is related to congestive heart failure and likely to improve with diuresis. I do not feel that patient has dehydration. I would not recommend giving her any more fluid. 3. Anemia. Her anemia is stable at present and will need to be monitored closely. No urgent need for transfusion. 4. History of secondary hyperparathyroidism. She has been with chronic kidney disease (CKD) and secondary hyperparathyroidism. She was taking calcitriol at home, and I will recommend to continue with the same dose. We will check parathyroid level next week. 5. Gout. She has no active problems and should continue with allopurinol, as she was taking at home. We are going to diurese her, and that increases the risk for acute gout, so I would recommend to keep her on home dose of allopurinol. Thank you for involving me in the care of Mrs. Montanez. I will follow her along with you.
[2020-12-01] MEDS: VITAMIN D 1,000 INTERNATIONAL UNITS TABLET PO SCH (21:08)
[2020-12-01 22:00] VITALS: BP 124/65
--- NOTE | 2020-12-02 00:21 | REPVR ---
PROCEDURE INFORMATION: Exam: XR Left Hip Exam date and time: 11/30/2020 9:02 PM Age: 75 years old Clinical indication: Hip pain; Left hip; Additional info: Fall and pain TECHNIQUE: Imaging protocol: XR Left hip. Views: 2 or 3 views hip with pelvis when performed. COMPARISON: CT-Hip WITHOUT CONTRAST 11/14/2016 9:36 AM FINDINGS: Bones/joints: Old healed fractures noted of the right pubic symphysis. There is some narrowing of the left hip joint with sclerosis and osteophyte formation. There is no evidence of acute fracture of the left hip. Soft tissues: Unremarkable. Gastrointestinal tract: There is a large amount of stool within the rectum. Vasculature: There is prominent vascular calcification. IMPRESSION: Moderate degenerative and arthritic changes of the left hip joint. Large amount of stool within the rectum and sigmoid colon. Electronically signed by: Harley Lozano On 12/02/2020 00:21:37 AM
[2020-12-02] MEDS: ACETAMINOPHEN TAB 650MG DOSE (2X325MG) PO PRN ×4 (03:11→23:23)
[2020-12-02] MEDS: FUROSEMIDE 40MG/4ML VIAL (J1940) IV SCH (05:04)
[2020-12-02] MEDS: HEPARIN SOD (PORCINE) 5000UNITS/ML 1ML VIAL/SYRINGE SC SCH ×3 (05:05→21:16)
[2020-12-02 06:00] VITALS: BP 104/57
[2020-12-02] MEDS: ALBUTEROL SULFATE 2.5 MG/0.5 ML INH NEB SOLN INH SCH ×4 (07:27→20:48)
[2020-12-02] MEDS: HumaLOG INSULIN (NovoLOG) PER UNIT SC SCH ×4 (07:30→21:00)
[2020-12-02 09:26] LABS: HEMATOCRIT 30.5 % (36.0-47.0); HEMOGLOBIN 9.4 g/dl (12.0-15.5); MEAN CORPUSCULAR HEMOGLOBIN 32.3 pg (27.0-33.0); MEAN CORPUSCULAR HGB CONC 30.8 g/dl (32.0-36.5); MEAN CORPUSCULAR VOLUME 104.8 fl (80.0-96.0); PLATELET COUNT, AUTOMATED 220 10^3/uL (150-450); RED BLOOD COUNT 2.91 10^6/uL (4.00-5.40); WHITE BLOOD COUNT 9.5 10^3/uL (4.0-10.0)
[2020-12-02 09:56] LABS: CALCIUM LEVEL 9.3 MG/DL (8.8-10.2); CREATININE FOR GFR 2.91 MG/DL (0.55-1.30); GLOMERULAR FILTRATION RATE 16.9 (>39); PHOSPHORUS LEVEL 4.6 MG/DL (2.5-4.9); POTASSIUM SERUM 4.4 MEQ/L (3.5-5.1)
[2020-12-02] MEDS: AMIODARONE 200 MG TAB (PACERONE) PO SCH (09:58)
[2020-12-02] MEDS: allopurinoL 100 MG TAB PO SCH (09:58)
[2020-12-02] MEDS: FOLIC ACID 1 MG TAB PO SCH (09:59)
[2020-12-02] MEDS: ENTRESTO 24-26MG TABLET (SACUBITRIL/VALSARTAN) PO SCH ×2 (09:59→21:16)
[2020-12-02] MEDS: ATORVASTATIN 20 MG TAB PO SCH (09:59)
[2020-12-02] MEDS: CALCITRIOL 0.25 MCG CAP (S0169) PO SCH (09:59)
[2020-12-02] MEDS: PANTOPRAZOLE 40MG TAB (PROTONIX) PO SCH (09:59)
--- NOTE | 2020-12-02 11:25 | IPNPDOC ---
Text Note Date of Service The patient was seen on 12/02/20. NOTE Subjective: Patient was seen and examined. She tells me she's been having a lot of urine output because of the IV Lasix. She feels well overall she has some left shoulder pain from the site of her fall I discussed with her using a lidocaine patch she is agreeable to try. There is no acute overnight events. Objective: Constitutional: Awake and alert, in no apparent distress ENT: Sclera are clear. Mucosa is moist. Respiratory: Lungs diminished breath sounds bilaterally. No respiratory distress. Cardiovascular: RRR S1 and S2 are normal, no murmur Gastrointestinal: Abdomen is soft, non distended, non tender Musculoskeletal: Lower extremity pitting edema 1/2+ about the same as yesterday Neurologic: No focal neurological deficit. Mental Status: A&O x3, normal affect Skin: Warm, dry Assessment/plan: This is an elderly female who sustained a mechanical fall on Friday resulting in uncontrolled pain in L rib and pelvic region will be admitted for further pain management. No acute findings on Plain films. # Acute kidney injury on chronic kidney disease: FeUrea 56% suggestive of intrinsic kidney disease. Her park interpretive specialist Dr. Mcclellan was consulted. Possibly fr om her fluid overload state. We should see improvement as she is diuresed. Kidney function is worse today. # Mechanical fall: Fell out of bed. Physical therapy evaluation. Imaging at [facility] has been negative for acute fracture. Lidocaine patch. # CHF: EF unkonwn. Follow up echo. BNP is elevated. She does have some LE edema. Baseline unknown. Continue home medications. Diuresis with IV Lasix. # Hypertension: Continue home meds. Monitor and titrate # DM: ISS. Frequent Accu-Cheks. Hypoglycemic precautions. # COPD: Not in exacerbation. Continue baseline 3 L oxygen by nasal cannula. Continue home inhalers. # DVT prophylaxis: Heparin A Yousef Hospitalist VS,Anna, I+O VS, Danielbone, I+O Laboratory Tests 12/02/20 08:44 Vital Signs Date Time Temp Pulse Resp B/P (MAP) Pulse Ox O2 Delivery O2 Flow Rate FiO2 12/02/20 10:03 85 132/91 12/02/20 09:00 3.0 12/02/20 06:00 98.2 18 94 Nasal Cannula I&O- Last 24 Hours up to 6 AM 12/02/20 06:00 Intake Total 1720 ml Output Total 2875 ml Balance -1155 ml ADRIAN PAIGE MD Dec 02, 2020 11:24
[2020-12-02] MEDS: LIDOCAINE 5% (LIDODERM) PATCH TD SCH (11:34)
[2020-12-02 14:00] VITALS: BP 111/58
[2020-12-02] MEDS: FUROSEMIDE 40 MG TAB PO SCH (16:56)
--- NOTE | 2020-12-02 19:38 | IPN ---
NEPHROLOGY PROGRESS NOTE DATE: 12/02/2020 SUBJECTIVE: Ms. Montanez is seen this morning on her bedside. She complains of frequent urination through the night and could not sleep well. She has been receiving intravenous (IV) Lasix every 8 hours. She denies any nausea or vomiting. Her dyspnea has improved. There is no fever or chills. PHYSICAL EXAMINATION: Temperature 98.2 degrees Fahrenheit, heart rate 80 per minute, respiratory rate 18 per minute, blood pressure 132/90 mmHg, oxygen saturation 92%. HEAD: Atraumatic. NECK: Supple and jugular venous distention (JVD) is not visible sitting upright at the edge of bed. LUNGS: Have much improved breath sounds with few basilar rales. HEART SOUNDS: Regular. ABDOMEN: Soft and nontender. Bowel sounds are normal. EXTREMITIES: Without any cyanosis or clubbing. Lower extremity edema is improved compared with yesterday. LABORATORY STUDIES: Today's labs show a WBC 9.5, hemoglobin 9.4, hematocrit 30.5, platelets 220. Sodium 139, potassium 4.4, CO2 29, BUN 51, creatinine 2.91, glucose 155, calcium 9.2. Albumin 3.0. PROBLEMS: 1. Acute kidney injury superimposed on chronic kidney disease. Kidney function slightly worse related to diuresis. We will continue to monitor closely. No urgent need for dialysis. 2. Congestive heart failure. Volume status is improving. I am going to change her diuretic to oral Lasix 40 mg twice a day. 3. Left-sided chest pain. This is related to recent fall and injury to her rib cage. She remains on Lidoderm patch and Tylenol as needed. 4. Anemia. No change in anemia and we will continue to monitor closely. There is no urgent intervention needed. We will check her iron studies.
[2020-12-02] MEDS: VITAMIN D 1,000 INTERNATIONAL UNITS TABLET PO SCH (21:16)
[2020-12-02] MEDS: **NOTE PATIENT COMMENT** MISC XX SCH (21:16)
[2020-12-02 22:00] VITALS: BP 110/59
[2020-12-03] MEDS: ACETAMINOPHEN TAB 650MG DOSE (2X325MG) PO PRN ×3 (05:38→21:27)
[2020-12-03] MEDS: HEPARIN SOD (PORCINE) 5000UNITS/ML 1ML VIAL/SYRINGE SC SCH ×3 (05:39→21:27)
[2020-12-03 06:00] VITALS: BP 108/54
[2020-12-03 06:26] LABS: HEMATOCRIT 30.7 % (36.0-47.0); HEMOGLOBIN 9.2 g/dl (12.0-15.5); MEAN CORPUSCULAR HEMOGLOBIN 30.8 pg (27.0-33.0); MEAN CORPUSCULAR VOLUME 102.7 fl (80.0-96.0); PLATELET COUNT, AUTOMATED 229 10^3/uL (150-450); RED BLOOD COUNT 2.99 10^6/uL (4.00-5.40); WHITE BLOOD COUNT 9.1 10^3/uL (4.0-10.0)
[2020-12-03 07:03] LABS: CALCIUM LEVEL 9.2 MG/DL (8.8-10.2); CREATININE FOR GFR 3.17 MG/DL (0.55-1.30); GLOMERULAR FILTRATION RATE 15.3 (>39); PERCENT SATURATION 16.9 % (13.2-45.0); PHOSPHORUS LEVEL 5.5 MG/DL (2.5-4.9); POTASSIUM SERUM 4.8 MEQ/L (3.5-5.1)
[2020-12-03] MEDS: ALBUTEROL SULFATE 2.5 MG/0.5 ML INH NEB SOLN INH SCH ×4 (07:14→19:55)
[2020-12-03] MEDS: HumaLOG INSULIN (NovoLOG) PER UNIT SC SCH ×4 (07:30→21:00)
[2020-12-03] MEDS: ATORVASTATIN 20 MG TAB PO SCH (08:51)
[2020-12-03] MEDS: FUROSEMIDE 40 MG TAB PO SCH ×2 (08:51→17:07)
[2020-12-03] MEDS: AMIODARONE 200 MG TAB (PACERONE) PO SCH (08:51)
[2020-12-03] MEDS: FOLIC ACID 1 MG TAB PO SCH (08:51)
[2020-12-03] MEDS: LIDOCAINE 5% (LIDODERM) PATCH TD SCH (08:51)
[2020-12-03] MEDS: allopurinoL 100 MG TAB PO SCH (08:51)
[2020-12-03] MEDS: ENTRESTO 24-26MG TABLET (SACUBITRIL/VALSARTAN) PO SCH ×2 (08:51→21:26)
[2020-12-03] MEDS: PANTOPRAZOLE 40MG TAB (PROTONIX) PO SCH (08:51)
[2020-12-03] MEDS: CALCITRIOL 0.25 MCG CAP (S0169) PO SCH (08:51)
[2020-12-03 14:00] VITALS: BP 109/52
--- NOTE | 2020-12-03 15:53 | IPNPDOC ---
Text Note Date of Service The patient was seen on 12/03/20. NOTE Subjective: Patient is sitting upright in the chair when I examined her this morning. She seems to be in fairly good spirits. She is grateful for having the Lasix and switched over to PO, this seems to be more tolerable for her. She does still continue to have some pain on the left side, the lidocaine patches and Tylenol seem to be helping but not as much as she would like. Nevertheless the pain is still apparently tolerable. Objective: Constitutional: Awake and alert, in no apparent distress ENT: Sclera are clear. Mucosa is moist. Respiratory: Lungs diminished breath sounds at the bases bilaterally. No respiratory distress. Speaking in full sentences. Cardiovascular: RRR S1 and S2 are normal, no murmur. No appreciable JVD. Gastrointestinal: Abdomen is soft, non distended, non tender Musculoskeletal: Lower extremity pitting edema 1-2+ pitting to the mid/upper shins bilaterally. Neurologic: No focal neurological deficit. Mental Status: A&O x3, normal affect Skin: Warm, dry Assessment/plan: This is an elderly female who sustained a mechanical fall on Friday resulting in uncontrolled pain in L rib and pelvic region will be admitted for further pain m anagement. No acute findings on Plain films. # Acute kidney injury on chronic kidney disease: FeUrea 56% suggestive of intrinsic kidney disease. Nephrology was consulted, their input on the matters greatly appreciated. GFR continues to slowly decline, however urinary output still remains fairly good. Will defer to nephrology regarding necessity of dialysis. At this time while she still has some evidence of mild fluid overload, she seems to be better than prior. # Mechanical fall: Fell out of bed. Physical therapy evaluation. Imaging at [facility] has been negative for acute fracture. Continue with Tylenol and Lidocaine patch. # CHF: EF unkonwn. Follow up echo. BNP is elevated. She does have some LE edema. Baseline unknown. Continue home medications. Diuresis with Lasix per recommendations from nephrology. # Hypertension: Continue home meds. Monitor and titrate # DM: ISS. Frequent Accu-Cheks. Hypoglycemic precautions. # COPD: Not in exacerbation. Continue baseline 3 L oxygen by nasal cannula. Continue home inhalers. # DVT prophylaxis: Heparin VS,Fishbone, I+O VS, Fishbone, I+O Laboratory Tests 12/03/20 05:41 Vital Signs Date Time Temp Pulse Resp B/P (MAP) Pulse Ox O2 Delivery O2 Flow Rate FiO2 12/03/20 14:00 98.2 79 20 109/52 (71) 93 Nasal Cannula 3.0 I&O- Last 24 Hours up to 6 AM 12/03/20 06:00 Intake Total 1420 ml Output Total 1725 ml Balance -305 ml JIMMY PAREDES DO Dec 03, 2020 15:52
--- NOTE | 2020-12-03 18:48 | IPN ---
NEPHROLOGY PROGRESS NOTE DATE: 12/03/2020 SUBJECTIVE: Ms. Montanez is seen this afternoon on her bedside. She is sitting in the chair at the time of my visit. She reports feeling better; however, still has some discomfort in her left chest rib cage where she injured herself due to fall. She is using Lidoderm patch. She denies any nausea or vomiting. PHYSICAL EXAMINATION: Temperature 98.2 degrees Fahrenheit, heart rate 80 per minute, respiratory rate 20 per minute, blood pressure 109/52 mmHg, oxygen saturation 96% on 3 liters oxygen. HEAD: Atraumatic. NECK: Supple and jugular venous distention (JVD) not abnormally elevated. LUNGS: Bibasilar rales. HEART SOUNDS: Irregular in rhythm. ABDOMEN: Soft and nontender. EXTREMITIES: Without any cyanosis or clubbing. Lower extremity edema is 1+ bilaterally. NEUROLOGIC: She is awake, alert and oriented times three. MEDICATIONS: Her medications are all reviewed and no changes are noted over the last 24 hours. She has been on oral diuretics now with Lasix 40 mg daily. She is also on diltiazem 120 mg daily and Entresto 24/26 mg twice a day for her congestive heart failure. She remains on amiodarone 200 mg daily for atrial fibrillation. LABORATORY DATA: Today's labs show WBC 9.1, hemoglobin 9.2, hematocrit 30.7, platelets 229. Sodium 139, potassium 4.8, CO2 32, BUN 65, creatinine 3.17. Iron level 39, saturation 17%. BNP level is down to 760 and albumin is 3.0. PROBLEMS: 1. Acute on chronic congestive heart failure. She has known history of systolic congestive heart failure and seems to be responding to diuretic well. She still has some peripheral edema. Currently she is taking oral furosemide 40 mg twice a day. I have explained to the patient that her kidney function is gradually worsening and she is likely to require dialysis in the future. At present so far, she has responded to diuretics so there is no emergent indication for dialysis. 2. Acute kidney superimposed on chronic kidney disease. Kidney function has been gradually worsening with diuresis. She has advanced renal disease and likely to require dialysis in near future. 3. Atrial fibrillation. Ventricular rate is well-controlled with amiodarone, calcium channel alberto and we will continue with the same. 4. Anemia. Her anemia is stable and does not need any urgent intervention. Iron studies are borderline. Will give her one dose of Aranesp 100 mcg tomorrow.
[2020-12-03] MEDS: VITAMIN D 1,000 INTERNATIONAL UNITS TABLET PO SCH (21:26)
[2020-12-03] MEDS: **NOTE PATIENT COMMENT** MISC XX SCH (21:27)
[2020-12-03 22:00] VITALS: BP 102/60
[2020-12-04] MEDS: ACETAMINOPHEN TAB 650MG DOSE (2X325MG) PO PRN ×3 (03:46→21:36)
[2020-12-04] MEDS: HEPARIN SOD (PORCINE) 5000UNITS/ML 1ML VIAL/SYRINGE SC SCH ×3 (05:05→21:36)
[2020-12-04 06:00] VITALS: BP 108/53
[2020-12-04] MEDS: ALBUTEROL SULFATE 2.5 MG/0.5 ML INH NEB SOLN INH SCH ×4 (07:14→19:55)
[2020-12-04] MEDS: HumaLOG INSULIN (NovoLOG) PER UNIT SC SCH ×4 (07:30→20:01)
[2020-12-04 08:40] LABS: HEMATOCRIT 29.6 % (36.0-47.0); HEMOGLOBIN 9.1 g/dl (12.0-15.5); MEAN CORPUSCULAR HEMOGLOBIN 31.9 pg (27.0-33.0); MEAN CORPUSCULAR HGB CONC 30.7 g/dl (32.0-36.5); MEAN CORPUSCULAR VOLUME 103.9 fl (80.0-96.0); PLATELET COUNT, AUTOMATED 223 10^3/uL (150-450); RED BLOOD COUNT 2.85 10^6/uL (4.00-5.40); WHITE BLOOD COUNT 7.2 10^3/uL (4.0-10.0)
[2020-12-04] MEDS ORDERED: DARBEPOETIN 100 MCG/0.5 ML *NON-DIALYSIS* SYRINGE (J0881) SC SCH (09:00)
[2020-12-04] MEDS: ATORVASTATIN 20 MG TAB PO SCH (09:04)
[2020-12-04] MEDS: CALCITRIOL 0.25 MCG CAP (S0169) PO SCH (09:04)
[2020-12-04] MEDS: AMIODARONE 200 MG TAB (PACERONE) PO SCH (09:04)
[2020-12-04] MEDS: PANTOPRAZOLE 40MG TAB (PROTONIX) PO SCH (09:05)
[2020-12-04] MEDS: FUROSEMIDE 40 MG TAB PO SCH (09:05)
[2020-12-04] MEDS: ENTRESTO 24-26MG TABLET (SACUBITRIL/VALSARTAN) PO SCH ×2 (09:05→21:38)
[2020-12-04] MEDS: FOLIC ACID 1 MG TAB PO SCH (09:05)
[2020-12-04] MEDS: LIDOCAINE 5% (LIDODERM) PATCH TD SCH (09:06)
[2020-12-04 09:16] LABS: ALBUMIN 2.9 GM/DL (3.2-5.2); CALCIUM LEVEL 9.2 MG/DL (8.8-10.2); CREATININE FOR GFR 3.54 MG/DL (0.55-1.30); GLOMERULAR FILTRATION RATE 13.5 (>39); PHOSPHORUS LEVEL 5.3 MG/DL (2.5-4.9); POTASSIUM SERUM 4.7 MEQ/L (3.5-5.1)
[2020-12-04 09:56] LABS: URIC ACID 8.4 MG/DL (2.6-6.0)
--- NOTE | 2020-12-04 10:30 | REP ---
INDICATION: CHF COMPARISON: 11/30/2020 TECHNIQUE: PA and lateral. FINDINGS: The mediastinum and cardiac silhouette are stable and within normal limits. Pacemaker again identified in stable position. The lung saavedra demonstrate chronic stable changes without acute consolidation, effusion, or pneumothorax. No evidence for pulmonary vascular congestion or CHF. The skeletal structures are intact and normal. IMPRESSION: No acute cardiopulmonary process. <Electronically signed by Eddi Bergman > 12/04/20 1024
[2020-12-04] MEDS: allopurinoL 100 MG TAB PO SCH (11:34)
--- NOTE | 2020-12-04 13:26 | IPN ---
NEPHROLOGY PROGRESS NOTE DATE: 12/04/2020 SUBJECTIVE: Ms. Montanez is seen this morning on her bedside. She is sitting in the chair as usual and reports feeling well. Her left-sided rib cage is still sore. She denies any nausea or vomiting. She still has some leg edema. PHYSICAL EXAMINATION: Temperature 98 degrees Fahrenheit, heart rate 70 per minute, respiratory rate 18 per minute, blood pressure 108/53 mmHg, oxygen saturation 96% on 2 liters oxygen. HEAD: Atraumatic. NECK: Supple and jugular venous distention (JVD) not abnormally elevated sitting upright. LUNGS: Clear to auscultation. HEART SOUNDS: Regular. ABDOMEN: Soft and nontender. Bowel sounds are normal. EXTREMITIES: Without any cyanosis or clubbing. Lower extremity edema is 1+ bilaterally. NEUROLOGIC: She is awake, alert and oriented times three. LABORATORY DATA: Today's labs show WBC 7.2, hemoglobin 9.2, hematocrit 29.6, platelets 223. Sodium 140, potassium 4.7, CO2 31, BUN 78 and creatinine 3.54, calcium 9.2, phosphorus 5.3. Uric acid 8.4. A BNP level is down to 515. PROBLEMS: 1. Acute on chronic systolic congestive heart failure. Her volume status has improved significantly. We repeated her chest x-ray today which did not show any evidence for pulmonary vascular congestion or pleural effusion. I am going to cut down her diuretics to 40 mg daily. 2. Acute renal failure superimposed on chronic kidney disease. Kidney function gradually worsening with the diuresis. I feel that she has advanced chronic kidney disease at baseline. I have explained to her about potential need for dialysis. At this point, there is no emergent need for dialysis; however, it is quite likely that she will need dialysis in the very near future. 3. Anemia. Her anemia has been stable and does not need any urgent intervention. Her iron studies were borderline and I would recommend that she keep taking oral iron supplement. 4. Pain in the left rib cage due to fall. Patient is feeling the pain is slightly better. She is not a suitable candidate for nonsteroidal antiinflammatories (NSAIDs). She can continue with Lidoderm patch or Tylenol.
--- NOTE | 2020-12-04 13:37 | ECHO ---
DATE OF PROCEDURE: 12/02/2020 Age: 75 Gender: Female Height: 160 cm Weight: 74 kg REFERRING PHYSICIAN: Chay Sepulveda MD INDICATION: Heart failure, unspecified. MEASUREMENTS: 2D Measurements: Left atrium 3.9 cm Aortic root 3.5 cm Intraventricular septum 1.18 cm Posterior wall 1.31 cm Left ventricle diastole 3.5 cm Inferior vena cava 1.4 cm (more than 50% respiratory variation). Doppler Measurements: No aortic stenosis No aortic regurgitation Aortic valve velocity 184 cm/s LVOT velocity 128 cm/s LVOT VTI 19.4 cm No mitral stenosis No mitral regurgitation Mitral E velocity 97.7 cm/s Mitral A velocity 123 cm/s Mitral deceleration time 264 msec Mild tricuspid regurgitation Estimated right ventricular systolic pressure 28-33 mmHg Estimated right atrial pressure 5-10 mmHg No pulmonic regurgitation MITRAL ANNULAR TISSUE DOPPLER E prime septal 5.4 cm/s, E prime lateral 8.5 cm/s DESCRIPTION: Rhythm appeared to be AV sequential paced rhythm. This was a moderately technically difficult echocardiogram performed with the patient supine. This was a 2D, M-mode, color flow Doppler, and pulsed wave Doppler examination including mitral annular tissue Doppler. CONCLUSIONS: 1. Borderline concentric left ventricular hypertrophy. Normal regional LV wall motion and wall thickening. Normal LV systolic function. LVEF 65% by visual estimate. Grade 1 LV diastolic dysfunction. 2. Severe mitral annular calcification. No mitral stenosis or mitral regurgitation. 3. Very mild left atrial dilatation. 4. Normal right ventricle size and systolic function. Suggestive of estimated right ventricle systolic pressure to be nearly upper limits of normal to mildly elevated. Mild tricuspid regurgitation. Normal CVP. 5. Presence of endocardial, right atria, right ventricle, and pulmonary sinus pacemaker leads. MTDD
[2020-12-04 14:00] VITALS: BP 134/57
[2020-12-04] MEDS ORDERED: FERRIC CARBOXYMALTOSE INJ 750 MG in NS 250 ML IV ONE (15:00)
--- NOTE | 2020-12-04 17:46 | IPNPDOC ---
Text Note Date of Service The patient was seen on 12/04/20. NOTE Subjective: She is once again sitting upright in the chair when I examined her this morning. Her only complaint is that of left-sided rib pain. Chest x-ray was obtained today, it does not show any effusion, rib fractures were ruled out previously. She reports that she does continue to urinate, albeit not nearly as much as when she was on IV Lasix. Objective: Constitutional: Awake and alert, in no apparent distress ENT: Sclera are clear. Mucosa is moist. Respiratory: Lungs diminished breath sounds at the bases bilaterally. No respiratory distress. Speaking in full sentences. Cardiovascular: RRR S1 and S2 are normal, no murmur. No appreciable JVD. Gastrointestinal: Abdomen is soft, non distended, non tender Musculoskeletal: Lower extremity pitting edema 1-2+ pitting to the mid/upper shins bilaterally. Neurologic: No focal neurological deficit. Mental Status: A&O x3, normal affect Skin: Warm, dry Assessment/plan: # Acute kidney injury on chronic kidney disease: Nephrology was consulted, their input in the matters greatly appreciated. It seems that she will likely end up on dialysis in the near future. # Mechanical fall: Fell out of bed. Physical therapy evaluation. Imaging at [facility] has been negative for acute fracture. Continue with Tylenol and Lidocaine patch. She is not an appropriate candidate for NSAIDs due to her poor renal function. # CHF: EF unkonwn. Follow up echo. BNP is elevated. She does have some LE edema. Baseline unknown. Continue home medications. Diuresis per recommendations from nephrology. # Hypertension: Continue home meds. Monitor and titrate # DM: ISS. Frequent Accu-Cheks. Hypoglycemic precautions. # COPD: Not in exacerbation. Continue baseline 3 L oxygen by nasal cannula. Continue home inhalers. # DVT prophylaxis: Heparin VS,Fishbone, I+O VS, Fishbone, I+O Laboratory Tests 12/04/20 08:15 Vital Signs Date Time Temp Pulse Resp B/P (MAP) Pulse Ox O2 Delivery O2 Flow Rate FiO2 12/04/20 15:45 17 12/04/20 09:05 69 108/53 12/04/20 09:05 3.0 12/04/20 06:00 98.0 96 12/03/20 22:00 Nasal Cannula I&O- Last 24 Hours up to 6 AM 12/04/20 06:00 Intake Total 1020 ml Output Total 1500 ml Balance -480 ml JIMMY PAREDES DO Dec 04, 2020 17:46
[2020-12-04] MEDS: VITAMIN D 1,000 INTERNATIONAL UNITS TABLET PO SCH (21:36)
[2020-12-04] MEDS: **NOTE PATIENT COMMENT** MISC XX SCH (21:39)
[2020-12-04 22:00] VITALS: BP 121/62
[2020-12-05] MEDS: ACETAMINOPHEN TAB 650MG DOSE (2X325MG) PO PRN (03:49)
[2020-12-05 06:00] VITALS: BP 112/55
[2020-12-05] MEDS: HEPARIN SOD (PORCINE) 5000UNITS/ML 1ML VIAL/SYRINGE SC SCH ×2 (06:23→14:14)
[2020-12-05] MEDS: HumaLOG INSULIN (NovoLOG) PER UNIT SC SCH ×2 (06:37→12:00)
[2020-12-05] MEDS: ALBUTEROL SULFATE 2.5 MG/0.5 ML INH NEB SOLN INH SCH ×2 (07:15→11:21)
[2020-12-05 07:34] LABS: HEMATOCRIT 28.1 % (36.0-47.0); HEMOGLOBIN 8.5 g/dl (12.0-15.5); MEAN CORPUSCULAR HEMOGLOBIN 31.3 pg (27.0-33.0); MEAN CORPUSCULAR HGB CONC 30.2 g/dl (32.0-36.5); MEAN CORPUSCULAR VOLUME 103.3 fl (80.0-96.0); PLATELET COUNT, AUTOMATED 207 10^3/uL (150-450); RED BLOOD COUNT 2.72 10^6/uL (4.00-5.40); WHITE BLOOD COUNT 8.2 10^3/uL (4.0-10.0)
[2020-12-05 07:59] LABS: ALBUMIN 2.7 GM/DL (3.2-5.2); CREATININE FOR GFR 3.43 MG/DL (0.55-1.30); PHOSPHORUS LEVEL 4.3 MG/DL (2.5-4.9); POTASSIUM SERUM 5.2 MEQ/L (3.5-5.1)
[2020-12-05] MEDS: FOLIC ACID 1 MG TAB PO SCH (08:14)
[2020-12-05] MEDS: ATORVASTATIN 20 MG TAB PO SCH (08:14)
[2020-12-05] MEDS: CALCITRIOL 0.25 MCG CAP (S0169) PO SCH (08:15)
[2020-12-05] MEDS: PANTOPRAZOLE 40MG TAB (PROTONIX) PO SCH (08:15)
[2020-12-05] MEDS: ENTRESTO 24-26MG TABLET (SACUBITRIL/VALSARTAN) PO SCH (08:15)
[2020-12-05] MEDS: allopurinoL 100 MG TAB PO SCH (08:15)
[2020-12-05 08:17] VITALS: BP 110/52
[2020-12-05] MEDS: AMIODARONE 200 MG TAB (PACERONE) PO SCH (08:18)
[2020-12-05] MEDS: LIDOCAINE 5% (LIDODERM) PATCH TD SCH (08:21)
[2020-12-05] MEDS ORDERED: CALCIUM GLUCONATE 1,000 MG in D5W MINI-BAG PLUS 100 ML IV ONE (09:00)
[2020-12-05] MEDS ORDERED: FUROSEMIDE 40 MG TAB PO SCH (09:00)
[2020-12-05] MEDS ORDERED: SOD POLYSTYRENE SULFONATE SUSP 15 GM/60 ML UD PO ONE (10:00)
--- NOTE | 2020-12-05 11:14 | DSES ---
DISCHARGE SUMMARY DATE OF ADMISSION: 11/30/2020 DATE OF DISCHARGE: 12/05/2020 RESERVES CLERK: [employer] OPERATOR: VANESSA MOHAMUD MD PRIMARY DISCHARGE DIAGNOSIS: 1. Acute kidney injury on chronic kidney disease Stage IV. 2. Mechanical fall. 3. Diastolic congestive heart failure. 4. Mild tricuspid regurgitation. 5. Hypertension. 6. Type 2 diabetes. 7. COPD, compensated. 8. Hyperkalemia. 9. Anemia of chronic kidney disease. 10.Musculoskeletal pain in the left ribcage status post mechanical fall. 11.Acute on chronic diastolic congestive heart failure exacerbation. DISCHARGE MEDICATIONS: 1. Lasix 40 mg daily. 2. Albuterol 2.5 q. 6 hourly as needed. 3. Allopurinol 100 daily. 4. Amiodarone 200 daily. 5. Augmentin one tablet p.o. b.i.d. 6. Atorvastatin 20 daily. 7. Azithromycin 250 daily. 8. Calcitriol 0.25 mcg daily. 9. Calcium 600 b.i.d. 10.Vitamin D 1000 units q.h.s. 11.Diltiazem 120 daily. 12.Colace 100 b.i.d. as needed. 13.Ferrous sulfate 325 b.i.d. 14.Folic acid 1 mg daily. 15.Protonix 40 daily. 16.Raloxifene 60 mg daily. 17.Januvia 50 mg daily. HOSPITAL COURSE: A 75-year-old female admitted on 11/30/2020 with complaints of mechanical fall at home, was found to have no acute fracture and discharged home, presents back due to persistent pain with difficulty bearing weight on her left side. Patient was admitted status post mechanical fall. During the hospital admission, the patient complained of chest pain due to musculoskeletal pain of the left rib cage. Patient was then found to have worsening renal function and a lodge attendant was consulted. She was found to have acute on chronic diastolic congestive heart failure exacerbation and was started on IV Lasix 40 mg q. 8 hourly with worsening creatinine. Her anemia was stable and did no require any blood transfusion. The patient's admission weight was 74.5 kilos increased to 76.3 kilos and discharged with 74.1 kg. Patient was diuresed from 12/01 to 12/03 and remained in net negative balance, negative 845 ml, negative 305 ml, negative 305 ml, negative 690 ml. Her creatinine continued to worsen to 3.43 on the day of discharge with GFR of 14 at Stage V renal failure. Dr. Mohamud had discussed with her the need for dialysis in the near future. Patient's chest pain improved on as needed pain medication. She was stable on her home doses of medications and had no other acute issues. She had some elevated potassium which was treated with Kayexalate and calcium gluconate. PHYSICAL EXAMINATION: VITAL SIGNS: On discharge, temperature 98.2, pulse 74, respiratory rate 17, blood pressure 110/52, 91% on 3 liters nasal cannula. GENERAL: Awake, alert and oriented x3. HEENT/NECK: No JVD. No thyromegaly or cervical lymphadenopathy. Moist mucous membranes. LUNGS: Clear to auscultation. No wheezing or rales. HEART: S1 and S2, sinus rhythm. ABDOMEN: Soft, nontender and nondistended. EXTREMITIES: No cyanosis or clubbing. 1+ pitting edema bilaterally. LABORATORY DATA: On discharge, white count 8.3, hemoglobin is 8.5, hematocrit is 28, platelet count is 207,000. Sodium is 139, potassium is 5.2, chloride is 106, bicarbonate 30, BUN 81, creatinine 3.43, glucose of 118. Time spent on discharge: 30 minutes MTDD
[2020-12-05 12:30] LABS: HEMATOCRIT 30.1 % (36.0-47.0); HEMOGLOBIN 9.2 g/dl (12.0-15.5)
--- NOTE | 2020-12-05 12:55 | IPN ---
PROGRESS NOTE DATE: 12/05/2020 SUBJECTIVE: Mrs. Montanez is seen this morning on her bedside. She is sitting in the chair at the time of my visit. She has been using oxygen and complains of pain in her left rib cage. She denies any nausea or vomiting. OBJECTIVE: VITAL SIGNS: Temperature 98.2 degrees Fahrenheit, heart rate 74 per minute, and respiratory rate 18 per minute. Blood pressure 110/52 mmHg and oxygen saturation 91% on 3 liters oxygen. HEAD: Atraumatic. NECK: Supple and JVD not abnormally elevated. The patient is using oxygen via nasal cannula. HEART: Sounds are irregular in rhythm. LUNGS: Sounds clear to auscultation. ABDOMEN: Soft and nontender. Bowel sounds are normal. EXTREMITIES: Without any cyanosis or clubbing. She does have some chronic lower extremity edema, which is essentially unchanged since yesterday. NEUROLOGIC: She is awake, alert, and oriented x3. LABORATORY DATA: Today's labs show WBC count 8.2, hemoglobin 8.5, hematocrit 28.1, platelets 207,000. Sodium 139, potassium 5.2, CO2 of 30, BUN 81, creatinine 3.43. Glucose 180 and calcium 9.0. BNP level is down 412. PROBLEMS: 1. Congestive heart failure acute on chronic. Volume status has improved and she remains on Lasix 40 mg just once a day. BNP level continues to decrease. 2. Acute renal failure superimposed on chronic kidney disease. Kidney function slightly improved over the last 24 hours. The patient has almost stage 5 chronic kidney disease. At this point, she does not have any uremic symptoms and there is no emergent indication for dialysis; however, I have explained to the patient once again about potential need for dialysis in the future. 3. Hyperkalemia. Mild hyperkalemia is related to a high potassium diet. She should be placed on a 2 gram potassium diet restriction. 4. Anemia with iron deficiency. The patient received a dose of intravenous iron yesterday and we will continue to monitor. There is no emergent need for a transfusion at this point. She is not on any Aranesp at this time either. 5. Hypertension. Blood pressure seems well-controlled. No changes are being made in her antihypertensive medications. 6. Disposition: I feel that the patient can be discharged to home and follow-up as an outpatient from a renal standpoint.
[2020-12-05] MEDS ORDERED: LIDO5OIN19 TOP (13:11)
== END 2020-12-05 15:08 | disposition home health service (06) | DRG 291 ==
LOC: M ED 15:08 → M ED INP 20:09 → ENRESERV 20:26 → M MSPAV 21:15
PROVIDERS: ADMIT Internal Medicine; ATTEND General Practice
DX: I13.0 Hypertensive heart and chronic kidney disease with heart failure and stage 1 through stage 4 chronic kidney disease, or unspecified chronic kidney disease (principal); I50.33 Acute on chronic diastolic (congestive) heart failure; N17.9 Acute kidney failure, unspecified; N18.4 Chronic kidney disease, stage 4 (severe); N25.81 Secondary hyperparathyroidism of renal origin; J44.9 Chronic obstructive pulmonary disease, unspecified; Z99.81 Dependence on supplemental oxygen; I25.10 Atherosclerotic heart disease of native coronary artery without angina pectoris; E11.22 Type 2 diabetes mellitus with diabetic chronic kidney disease; S20.212A Contusion of left front wall of thorax, initial encounter; S70.02XA Contusion of left hip, initial encounter; W06.XXXA Fall from bed, initial encounter; Y92.013 Bedroom of single-family (private) house as the place of occurrence of the external cause; D72.829 Elevated white blood cell count, unspecified; D63.1 Anemia in chronic kidney disease; R60.0 Localized edema; E87.70 Fluid overload, unspecified; I48.91 Unspecified atrial fibrillation; E87.5 Hyperkalemia; I07.1 Rheumatic tricuspid insufficiency; Z95.0 Presence of cardiac pacemaker; Z87.891 Personal history of nicotine dependence; Z20.822 Contact with and (suspected) exposure to COVID-19; Z79.899 Other long term (current) drug therapy; Z79.84 Long term (current) use of oral hypoglycemic drugs; Z88.5 Allergy status to narcotic agent; Z87.39 Personal history of other diseases of the musculoskeletal system and connective tissue; Z88.8 Allergy status to other drugs, medicaments and biological substances

== ENCOUNTER → 2021-01-24 | Outpatient (CLI) | payer MEDICARE ==
[~2021-01-24] MED LIST changes: +ALBU83IN INH; +ALLO10TA PO; +AMIO200T3 PO; +AMOX875T2 PO; +AZIT-12 PO; +CALC1CAP31 PO; +CALC600T60 PO; +D31000TA2 PO; +DILT120C89 PO; +DOCU100C16 PO; +ENTR1TAB PO; +FERR1TAB8 PO; +GLIP2.5T6 PO; +LIDO5OIN19 TOP; +PANT40TA29 PO; +RALO1TAB PO; +SITA50TAB PO; +VENTAER INH
--- NOTE | 2021-01-24 10:51 | PFTRPT ---
Height: 63.00 Inches Weight: 169.00 Lbs BSA: 1.80 Diagnosis: I48.0 DATE: 01/24/2021 ORDERED BY: Joceline Ferguson M.D. Pre and post bronchodilator studies have excellent technical quality. Forced vital capacity is reduced. FEV1 is out of proportion. Obstructive index is therefore reduced. Expiratory limit of the flow-volume loop consistent with very significant flow rate limitation. Favorable bronchodilator response is identified. Total lung capacity is normal. Residual volume suggests significant air trapping. Diffusing capacity is significantly reduced, but does correct for alveolar volume. No hemoglobin available for correction. Airway resistance and conductance are normal. IMPRESSION: At least moderate obstructive ventilatory impairment with bronchodilator response. Underlying air trapping. Please correlate clinically. MTDD
== END ==
LOC: M CARPUL 10:10
PROVIDERS: ATTEND Internal Medicine Cardiovascular Disease
DX: I48.0 Paroxysmal atrial fibrillation (principal)

== ENCOUNTER → 2021-02-07 | Outpatient (CLI) | payer MEDICARE ==
[2021-02-07 14:20] LABS: BASO # 0.1 10^3/uL (0.0-0.2); BASO % 0.7 % (0.0-1.0); EOS # 0.4 10^3/uL (0.0-0.5); EOS % 4.6 % (0.0-3.0); HEMATOCRIT 34.6 % (36.0-47.0); HEMOGLOBIN 10.3 g/dl (12.0-15.5); LYMPH # 1.2 10^3/uL (1.5-5.0); LYMPH % 13.3 % (24.0-44.0); MEAN CORPUSCULAR HEMOGLOBIN 32.4 pg (27.0-33.0); MEAN CORPUSCULAR HGB CONC 29.8 g/dl (32.0-36.5); MEAN CORPUSCULAR VOLUME 108.8 fl (80.0-96.0); MONO # 0.8 10^3/uL (0.0-0.8); MONO % 8.4 % (2.0-8.0); NEUTROPHILS # 6.4 10^3/uL (1.5-8.5); NEUTROPHILS % 71.9 % (36.0-66.0); PLATELET COUNT, AUTOMATED 221 10^3/uL (150-450); RED BLOOD COUNT 3.18 10^6/uL (4.00-5.40); WHITE BLOOD COUNT 8.9 10^3/uL (4.0-10.0)
[2021-02-07 14:50] LABS: ALBUMIN 3.3 GM/DL (3.2-5.2); BILIRUBIN,TOTAL 0.2 MG/DL (0.2-1.0); CALCIUM LEVEL 8.8 MG/DL (8.8-10.2); CHOLESTEROL RISK RATIO 3.975 (<5); CREATININE FOR GFR 2.63 MG/DL (0.55-1.30); MAGNESIUM LEVEL 2.6 MG/DL (1.8-2.4); POTASSIUM SERUM 4.8 MEQ/L (3.5-5.1); TOTAL PROTEIN 6.8 GM/DL (6.4-8.2)
== END ==
LOC: M LAB 13:33
PROVIDERS: ATTEND Internal Medicine Cardiovascular Disease
DX: I50.42 Chronic combined systolic (congestive) and diastolic (congestive) heart failure (principal)

== ENCOUNTER → 2021-04-18 | Outpatient (REF) | payer MEDICARE | LOC: M LAB REF 12:54 | PROVIDERS: ATTEND Internal Medicine Nephrology | DX: N18.4 Chronic kidney disease, stage 4 (severe) (principal); E83.42 Hypomagnesemia ==

== ENCOUNTER 2021-06-08 18:04 | Inpatient (IN) | payer MEDICARE ==
[~2021-06-08] VITALS: Ht 160 cm; Wt 80.5 kg
--- NOTE | 2021-06-08 20:02 | REP ---
INDICATION: dyspnea. COMPARISON: Comparison chest x-ray December 04, 2020. TECHNIQUE: Sitting AP portable chest x-ray. FINDINGS: A multilead pacemaker is seen in the right heart view of the left side as before. EKG electrodes are seen. Cardiomegaly is observed. Pulmonary vasculature is cephalized. There is no evidence of pleural effusion or diffuse pulmonary edema. There is a mild bilateral lower lobe platelike atelectasis. No focal infiltrate. IMPRESSION: CHF pattern with mild bibasilar platelike atelectasis. Cardiomegaly and vascular congestion. No pleural effusion or pulmonary edema seen. <Electronically signed by Mikie Rose > 06/08/211958
[2021-06-08 20:33] LABS: BASO # 0.1 10^3/uL (0.0-0.2); BASO % 0.4 % (0.0-1.0); EOS # 0.1 10^3/uL (0.0-0.5); EOS % 0.4 % (0.0-3.0); HEMATOCRIT 30.7 % (36.0-47.0); HEMOGLOBIN 9.3 g/dl (12.0-15.5); LYMPH # 0.3 10^3/uL (1.5-5.0); MEAN CORPUSCULAR HEMOGLOBIN 32.4 pg (27.0-33.0); MEAN CORPUSCULAR HGB CONC 30.3 g/dl (32.0-36.5); MONO # 0.6 10^3/uL (0.0-0.8); MONO % 4.3 % (2.0-8.0); NEUTROPHILS # 12.2 10^3/uL (1.5-8.5); PLATELET COUNT, AUTOMATED 187 10^3/uL (150-450); RED BLOOD COUNT 2.87 10^6/uL (4.00-5.40); WHITE BLOOD COUNT 13.5 10^3/uL (4.0-10.0)
[2021-06-08] MEDS ORDERED: ACETAMINOPHEN TAB 650MG DOSE (2X325MG) PO ONE (21:10)
[2021-06-08 21:26] LABS: ALBUMIN 2.8 GM/DL (3.2-5.2); BILIRUBIN,TOTAL 0.2 MG/DL (0.2-1.0); CALCIUM LEVEL 8.6 MG/DL (8.8-10.2); GLOMERULAR FILTRATION RATE 16.2 (>39); MAGNESIUM LEVEL 2.3 MG/DL (1.8-2.4); POTASSIUM SERUM 4.9 MEQ/L (3.5-5.1); TOTAL PROTEIN 6.5 GM/DL (6.4-8.2)
[2021-06-08] MEDS ORDERED: FUROSEMIDE 40MG/4ML VIAL (J1940) IV ONE (22:10)
[2021-06-09] MEDS ORDERED: BREO1INH3 INH (00:25)
[2021-06-09] MEDS ORDERED: GLIP2.5T6 PO (00:25)
[2021-06-09] MEDS ORDERED: MED REC COMMENT (00:49)
[2021-06-09] MEDS ORDERED: HOME MED LIST COMPLETE! XX SCH (00:50)
[2021-06-09] MEDS ORDERED: LevoFLOXacin IV 750 MG in IV 1 EA IV ONE (01:00)
--- NOTE | 2021-06-09 02:08 | REPVR ---
PROCEDURE INFORMATION: Exam: CT Abdomen And Pelvis Without Contrast Exam date and time: 06/09/2021 1:08 AM Age: 76 years old Clinical indication: Fever TECHNIQUE: Imaging protocol: Computed tomography of the abdomen and pelvis without contrast. Radiation optimization: All CT scans at this facility use at least one of these dose optimization techniques: automated exposure control; mA and/or kV adjustment per patient size (includes targeted exams where dose is matched to clinical indication); or iterative reconstruction. COMPARISON: CR Hip, Ap,Lat LEFT 11/30/2020 8:53 PM FINDINGS: Liver: Noncontrast liver shows no obvious lesion. Gallbladder and bile ducts: Gallbladder is surgically absent. Pancreas: Noncontrast pancreas shows no obvious mass or adjacent fluid. Spleen: Noncontrast spleen shows no obvious focal deformity. Adrenal glands: Adrenal glands are normal in appearance. Kidneys and ureters: Kidneys show no stone or hydronephrosis. Stomach and bowel: No evidence of small bowel obstruction. Diverticular changes are present within the colon without inflammation. Appendix: Appendix is not seen. No RLQ inflammation to suggest appendicitis. Intraperitoneal space: No pneumoperitoneum. Vasculature: Atherosclerotic change present in the aorta, without aneurysm. Lymph nodes: No bulky lymphadenopathy. Urinary bladder: Galvan catheter is present within the bladder. Reproductive: Female reproductive organs appear unremarkable. Bones/joints: Degenerative changes are seen in the hips and lumbar spine. Soft tissues: Unremarkable. Other findings: Limited evaluation without enteric or IV contrast. Exam is limited by artifact from patient being scanned with arms at the sides. IMPRESSION: 1. Significantly limited study demonstrating no acute process or explanation for fever. 2. Colonic diverticulosis without active inflammation Electronically signed by: Yazan Crowley On 06/09/2021 02:07:42 AM
--- NOTE | 2021-06-09 02:17 | REPVR ---
PROCEDURE INFORMATION: Exam: CT Chest Without Contrast; Diagnostic Exam date and time: 06/09/2021 1:08 AM Age: 76 years old Clinical indication: Fever TECHNIQUE: Imaging protocol: Diagnostic computed tomography of the chest without contrast. Radiation optimization: All CT scans at this facility use at least one of these dose optimization techniques: automated exposure control; mA and/or kV adjustment per patient size (includes targeted exams where dose is matched to clinical indication); or iterative reconstruction. COMPARISON: CR Chest, 1 view 06/08/2021 7:37 PM FINDINGS: Lungs: Limited study without IV contrast and also limited by streak artifact resulting from motion and scanning of the patient with the arms at the sides of the body. Also the anterior most aspect of the lung tissue and chest wall is excluded from field of view. Atelectasis is present in the dependent portions of the lungs. No suspicious lung mass or air space process. No central endobronchial lesion. Subtle reticulonodular non masslike opacity, lateral right upper lobe Pleural spaces: Miniscule dependent pleural effusions. No pneumothorax. Heart: Multi-chamber cardiac dilatation is noted. Pulmonary arteries: Pulmonary vascular/interstitial pattern does not suggest active pulmonary edema. Aorta: Thoracic aorta is atherosclerotic and ectatic. No focal aneurysm. Other arteries: Atherosclerotic calcifications in the coronary vessels. Lymph nodes: . No enlarged lymph nodes. 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 Soft tissues: Unremarkable. IMPRESSION: Possible focal inflammatory or infectious focus in the left upper lobe measuring 15 mm Probable mild pulmonary fibrosis and dependent atelectasis Electronically signed by: Yazan Crowley On 06/09/2021 02:17:03 AM
--- NOTE | 2021-06-09 02:26 | HPEPDOC ---
[facility] Medical History & Physical Date of Admission Jun 09, 2021 Date of Service: Jun 09, 2021 Attending Physician: TASNEEM MICHELLE MD History and Physical CC: SOB HISTORY OF PRESENT ILLNESS: This is a 77-year-old morbidly obese female who presents to [facility] ER with chief complaint of generalized weakness and shortness of breath. Patient has COPD and emphysematous bronchitis and is oxygen dependent (3 L at home). Patient states that she has had progressive shortness of breath x1 week as well as generalized weakness. Patient also reports orthopnea and paroxysmal nocturnal dyspnea as well as noticing increased lower extremity swelling. She states that she's been complaint with her 2L fluid restriction and limits her salt content as much as possible, although she reports eating packaged hotdogs often. She denies any increased coughing but does have more increased sputum production that is parsons. She has been needing more of her inhalers which do help with her shortness of breath however she presented to the ER today due to more profound generalized weakness. She reports some fever and some chills and states that she could not get up from her bed today which concerned her daughter who brought her into the ER. Patient denies any dizziness syncope or presyncope or loss of consciousness or vision changes and denies any chest pain associated with the shortness of breath. REVIEW OF SYSTEMS: General: Fever and mild chills, denies any unintentional weight loss. Decreased p.o. intake/decreased appetite HEENT: Denies changes in vision including blurry vision or double vision, or hearing loss nasal congestion or sore throat Heart: Denies chest pain or chest pressure or discomfort, or palpitations. Increased lower extremity edema Pulm: Denies increased cough but does report increased sputum production (parsons). Increased shortness of breath GI: Denies nausea vomiting diarrhea abdominal pain or bloody stools MSK: Increasing weakness throughout. Psych: Denies sadness or loss of interest in doing things, no thoughts of self- harm or suicidal ideation PAST MEDICAL HISTORY Obesity Tobacco dependence COPD Emphysematous bronchitis Chronic hypercapnic respiratory failure CATHRYN Essential hypertension Hypoxemia DM2 History of CAD History of CHF History of CKD History of secondary hyperparathyroidism History of anemia GERD Deviated nasal septum SURGICAL HISTORY: Watchman left atrial appendage closure implant 2019 Pacemaker Implant - 2014 Hysterectomy - 1976 Removal of Gallbladder - 1967 Appendectomy - 1967 Fem-Fem - 2002 FAMILY HISTORY: diabetes and htn in both parents SOCIAL HISTORY: . Patient is a current smoker, smokes every day - 1 PPD FOR 2 YEARS PHYSICAL EXAM: VS: SEE BELOW GENERAL: The patient is a well-developed, well-nourished, in no apparent distr ess. AAOx3 NEURO: No focal neurological deficits. Strength 4 out of 5 throughout, sensation intact throughout. HEENT: Head is normocephalic and atraumatic. Extraocular muscles are intact. Pupils are equal, round, and reactive to light and accommodation. Nares appears normal. Moist mucous membranes. PULM: Clear to auscultation bilaterally. No wheezing, rhonchi or rales appreciated.. CARDIO: Normal S1, S2. no significant murmurs, gallops, rubs or clicks. 3+ pitting edema up to her thighs bilaterally. JVD 3 cm above clavicle. ABDOMEN: Obese, soft, nontender, and nondistended. Normal bowel sounds. No significant organomegaly appreciated. EXTREMITIES: No cyanosis, clubbing, rash, lesions. IMAGING: Chest radiograph impression: CHF pattern with mild bibasilar platelike atelectasis. Cardiomegaly and vascular congestion. No pleural effusions or pulmonary edema seen. No focal infiltrate. Abdominal/pelvis CT impression: Significantly limited study demonstrating no acute process or explanation for fever. Colonic diverticulosis without active inflammation CT chest without contrast impression: Possible focal inflammatory or infectious focus in the upper lobe measuring 15 mm. Probable mild pulmonary fibrosis and dependent atelectasis ASSESSMENT AND PLAN This is a 76-year-old female who presents to [facility] ER with chief complaint of generalized weakness and progressive shortness of breath. In the ER she is noted to have hypoxia and elevated proBNP and clinically fluid overloaded. It was also noted that she had fever of 101.3, leukocytosis and POC lactate of 2.35 and a dose of Tylenol for her fever however no antibiotics given in ER. She was placed on supplemental oxygen and given a dose of IV 40 of Lasix and hospitalist team was asked to admit the patient for further management of care. Acute on chronic hypercapnic respiratory failure likely secondary to acute Decompensated systolic and diastolic HF Last echo was performed on November 2020 with left ventricular ejection fraction 65% and grade 1 left ventricular diastolic dysfunction as well as severe mitral annular calcification and mild left atrial dilatation, mild tricuspid regurg. Normal CVP. Will place on telemetry and repeat EKG and troponin tomorrow a.m as well as repeat echo as well as ABG to reassess her PCO2. Will start her on lasix IV q8h and follow her in and outs with daily weight ins. Vital signs every 4 hours. Call physician for heart rate in the 30 or increasing oxygen requirements, SBP less than 95, UOP less than 100 mL/h. Titrate O2 to maintain SPO2 between 88 to 90%. 2 g sodium diet. Sepsis, unknown source currently, possible CAP fever with leukocytosis and initial elevated lactate will order repeat lactate and order procal and MRSA pcr. will place on renally dosed Zosyn UA with reflex culture pending I will order for blood cultures on patient. will order for CT chest and CT abd/pelvis- pending History of anemia No urgent need for transfusion currently. We will continue to monitor her CBC closely and transfuse if necessary. NOAH on CKD Suspect this may be secondary to acute decompensated heart failure. We will diurese with Lasix every 8 hours continue to monitor her diuresis consider upping Lasix the patient does not diurese A.m. team to consider consulting nephrology as necessary. Would not recommend at this point giving her fluids. Essential hypertension Continue home meds COPD less likely to be in acute exacerbation, not wheezing on ausculation c/w home meds/inhalers O2 titrate to SPO2 88%-92% DM2 Hold her home meds glipizide and Januvia. We will place her on sliding scale with FSBS AC nightly plus hypoglycemic protocol History of secondary hyperparathyroidism Patient has a history of CKD. Continue home Calcitrol. Repeat PTH as necessary GERD continue with home meds Obesity complicating medical care Prolonged QTC Would avoid QT prolonging agents. Repeat EKG tomorrow a.m. Placed on telemetry for close monitoring. Patient has no symptoms of chest pain DVT prophylaxis Heparin Vital Signs Vital Signs Date Time Temp Pulse Resp B/P (MAP) Pulse Ox O2 Delivery O2 Flow Rate FiO2 06/09/21 00:21 100 18 129/61 (83) 94 06/08/21 20:28 101.4 Nasal Cannula 4.0 Laboratory Data Labs 24H Laboratory Tests 2 06/08/21 19:51: Immature Granulocyte % (Auto) 1.9, Neutrophils (%) (Auto) 91.0H, Lymphocytes (%) (Auto) 2.0L, Monocytes (%) (Auto) 4.3, Eosinophils (%) (Auto) 0.4, Basophils (%) (Auto) 0.4, Neutrophils # (Auto) 12.2H, Lymphocytes # (Auto) 0.3L, Monocytes # (Auto) 0.6, Eosinophils # (Auto) 0.1, Basophils # (Auto) 0.1, Nucleated Red Blood Cells % (auto) 0.0, Anion Gap 6L, Glomerular Filtration Rate 16.2L, Calcium Level 8.6L, Magnesium Level 2.3, Total Bilirubin 0.2, Aspartate Amino Transf (AST/SGOT) 25, Alanine Aminotransferase (ALT/SGPT) 18, Alkaline Phosphatase 80, QB-Gqn-Z-Type Natriuretic Peptide 3510H, Total Protein 6.5, Albumin 2.8L, Albumin/Globulin Ratio 0.8L 06/08/21 20:26: POC Troponin I (Misc) 0.07 06/08/21 23:41: POC Lactate (Misc Panel) 2.35*H 06/08/21 23:44: Urine Color YELLOW, Urine Appearance HAZY, Urine pH 5.0, Urine Specific [place] 1.013, Urine Protein 1+H, Urine Glucose (UA) NEGATIVE, Urine Ketones NEGATIVE, Urine Blood 2+H, Urine Nitrite NEGATIVE, Urine Bilirubin NEGATIVE, Urine Urobilinogen 0.2, Urine Leukocyte Esterase NEGATIVE, Urine WBC (Auto) 1, Urine RBC (Auto) 2, Urine Hyaline Casts (Auto) 0, Urine Bacteria (Auto) 1+H, Urine Squamous Epithelial Cells 0, Urine Sperm (Auto) CBC/BMP Laboratory Tests 06/08/21 19:51 Microbiology Microbiology 06/08/21 Respiratory Virus Panel (PCR) ([facility]) - Final, Complete Human Rhinovirus/Enterovirus Home Medications Scheduled Albuterol Sulf (Albuterol Sulfate) 2.5 Mg/3 Ml Vial.neb, 2.5 MG INH QID Allopurinol (Allopurinol) 100 Mg Tablet, 100 MG PO DAILY Amiodarone HCl (Amiodarone HCl) 200 Mg Tablet, 200 MG PO DAILY Atorvastatin Calcium (Atorvastatin Calcium) 20 Mg Tablet, 20 MG PO DAILY Calcitriol (Calcitriol) 0.25 Mcg Capsule, 0.25 MCG PO DAILY Calcium Carbonate (Calcium) 600 Mg Tablet, 600 MG PO BID Cholecalciferol (Vitamin D3) (Vitamin D3) 1,000 Unit Tablet, 1,000 UNITS PO QHS Ferrous Sulfate (Ferrous Sulfate) 325 Mg Tablet, 325 MG PO BID Fluticasone/Vilanterol (Breo Ellipta 200-25 Mcg INH) 1 Each Blst.w.dev, 1 PUFF INH DAILY Folic Acid (Folic Acid) 1 Mg Tablet, 1 MG PO DAILY Furosemide (Furosemide) 40 Mg Tablet, 80 MG PO DAILY Glipizide (Glipizide ER) 2.5 Mg Tab.er.24, 2.5 MG PO DAILY Pantoprazole Sodium (Pantoprazole Sodium) 40 Mg Tablet.dr, 40 MG PO DAILY Raloxifene HCl (Raloxifene HCl) 60 Mg Tablet, 60 MG PO DAILY Sitagliptin (Januvia) 50 Mg Tablet, 50 MG PO DAILY dilTIAZem HCl (Diltiazem 24Hr Cd) 120 Mg Cap.er.24h, 120 MG PO DAILY Scheduled PRN Albuterol Sulfate (Ventolin Hfa) 18 Gm Hfa.aer.ad, 2 PUFFS INH Q6H PRN for SOB/WHEEZING Docusate Sodium (Docusate Sodium) 100 Mg Capsule, 100 MG PO BID PRN for CONSTIPATION Miscellaneous Medications [Med Rec Comment] UNABLE TO SPEAK WITH PT. TO VERIFY USED EXTERNAL Allergies Coded Allergies: codeine (Verified Adverse Reaction, Intermediate, stabbing abd pain, 11/30/20) phenytoin (Verified Adverse Reaction, Intermediate, feels like being stabbed in abd, 11/30/20) gabapentin (Verified Adverse Reaction, Mild, VERTIGO, 11/30/20) oxycodone (Verified Adverse Reaction, Mild, SHAKINESS, 11/30/20) GME ATTESTATION GME ATTESTATION My faculty preceptor for this patient encounter was physically present during the encounter and was fully available. All aspects of the patient interview, examination, medical decision making process, and medical care plan development were reviewed and approved by the faculty preceptor. The faculty preceptor is aware and concurs with the plan as stated in the body of this note and will attest to such by his/her cosignature. Judy Solis DO Jun 09, 2021 02:26
[2021-06-09 03:30] VITALS: BP 144/79
[2021-06-09] MEDS: PIPERACILLIN/TAZOBACTAM SOD 2.25 GM in D5W MINI-BAG PLUS 50 ML IV SCH ×3 (03:56→14:35)
[2021-06-09] MEDS: ACETAMINOPHEN TAB 650MG DOSE (2X325MG) PO PRN ×2 (04:01→21:21)
[2021-06-09] MEDS ORDERED: IPRATROPIUM 0.5MG/ALBUTEROL 2.5MG INH SOL UD 3ML (DUONEB) NEB PRN (04:10)
[2021-06-09] MEDS: COMBIVENT RESPIMAT 100-20MCG INHALER 4GM INH PRN (04:24)
[2021-06-09] MEDS ORDERED: GLUCAGON INJ 1MG VIAL SC PRN (04:55)
[2021-06-09] MEDS ORDERED: GLUCOSE 4GM CHEW TABLET PO PRN (04:55)
[2021-06-09] MEDS ORDERED: DEXTROSE 50% 50 ML SYRINGE IV PRN (04:55)
[2021-06-09] MEDS: HEPARIN SOD (PORCINE) 5000UNITS/ML 1ML VIAL/SYRINGE SC SCH ×3 (05:27→21:03)
[2021-06-09] MEDS: FUROSEMIDE 40MG/4ML VIAL (J1940) IV SCH ×4 (05:28→21:08)
--- NOTE | 2021-06-09 05:35 | ECGEPIP ---
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
[2021-06-09] MEDS ORDERED: DOCUSATE SODIUM 100MG CAPSULE PO PRN (05:50)
[2021-06-09] MEDS ORDERED: ALBUTEROL 90 MCG/ACT 8GM HFA INHALER INH PRN (05:50)
[2021-06-09 06:00] VITALS: BP 121/66
[2021-06-09] MEDS ORDERED: FLUBLOK(EGG FREE)(QUAD)INFLUENZA VACC 0.5ML SYRINGE 18YRS & OLDER IM ONE (09:00)
[2021-06-09] MEDS ORDERED: LevoFLOXacin IV 500 MG in IV 1 EA IV ONE (09:00)
[2021-06-09] MEDS: FERROUS SULFATE 325MG TAB PO SCH ×2 (09:13→21:01)
[2021-06-09] MEDS: FOLIC ACID 1 MG TAB PO SCH (09:13)
[2021-06-09] MEDS: allopurinoL 100 MG TAB PO SCH (09:13)
[2021-06-09] MEDS: CALCITRIOL 0.25 MCG CAP (S0169) PO SCH (09:13)
[2021-06-09] MEDS: HumaLOG INSULIN (NovoLOG) PER UNIT SC SCH ×5 (09:14→21:00)
[2021-06-09] MEDS: PANTOPRAZOLE 40MG TAB (PROTONIX) PO SCH (09:15)
[2021-06-09] MEDS: AMIODARONE 200 MG TAB (PACERONE) PO SCH (09:15)
--- NOTE | 2021-06-09 11:11 | ECGEPIP ---
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 Electronically Signed on 06-09-2021 11:11:10 EDT by Deng Aguilera
[2021-06-09 14:00] VITALS: BP 97/65
[2021-06-09 14:35] VITALS: BP 103/51
--- NOTE | 2021-06-09 17:48 | IPNPDOC ---
Date Seen The patient was seen on 06/09/21. Progress Note SUBJECTIVE: Patient is a 76-year-old obese female with generalized weakness and short of breath x1 week and generalized weakness. Currently she is on 5 L nasal cannula. Of note respiratory panel is done, and resulted positive for human rhinovirus/enterovirus. She is currently on Covid contact protocol due to being exposed to several family members have tested positive for the viru s. Patient reports able to walk from bed to chair without becoming shortness of breath and says that she is less weak than yesterday. Review of systems: General: Denies fever, chills Heart: Denies chest pain, tachycardia Respiratory: Denies pain with breathing; reports some shortness of breath, pro ductive cough Gastrointestinal: Denies nausea, vomiting, diarrhea; reports upper abdominal pain which she endorses she has been experiencing on and off since open heart surgery OBJECTIVE PHYSICAL EXAMINATION: VITAL SIGNS: Please see below. GENERAL: 76-year-old obese female, resting in bed, in mild acute respiratory distress, on nasal cannula HEENT: Head normocephalic atraumatic, eyes EOMI CARDIOVASCULAR: Regular rate and rhythm, no murmurs, no rubs, no gallops. RESPIRATORY: Crackles in the right lower lobe appreciated otherwise clear to auscultation bilaterally ABDOMINAL: Obese, normoactive bowel sounds; some abdominal discomfort appreciated when the upper quadrants were palpated (see review of systems) LABORATORY DATA, MICROBIOLOGY: Please see below. IMAGING: Abdomen pelvis CT 06/09/2021: 1. Significantly limited study demonstrating no acute process or explanation for fever. 2. Colonic diverticulosis without active inflammation Chest CT 06/09/2021: Possible focal inflammatory or infectious focus in the left upper lobe Echocardiogram: . DVT prophylaxis ordered?: Heparin ASSESSMENT AND PLAN: This is a 36-year-old female with acute on chronic hypercapnic respiratory failure secondary to acute decompensated systolic and diastolic heart failure who presented to the ED with shortness of breath and weakness.. PROBLEMS: #Acute on chronic hypercapnic respiratory failure likely secondary to acute Decompensated systolic and diastolic HF -Repeat EKG: AV dual-paced rhythm No significant change compared with 06/08/2021 -Zosyn replaced with 1g ceftriaxone -Repeat ABG not resulted -Will start her on lasix IV q8h and follow her in and outs with daily weight ins. #Sepsis, unknown source currently, possible CAP Fever with leukocytosis and initial elevated lactate UA with reflex culture pending I will order for blood cultures on patient. #History of anemia No urgent need for transfusion currently. We will continue to monitor her CBC closely and transfuse if necessary. #NOAH on CKD Suspect this may be secondary to acute decompensated heart failure. We will diurese with Lasix every 8 hours continue to monitor her diuresis consider upping Lasix the patient does not diurese #Essential hypertension Continue home meds #COPD less likely to be in acute exacerbation, not wheezing on ausculation c/w home meds/inhalers O2 titrate to SPO2 88%-92% #DM2 Hold her home meds glipizide and Januvia. We will place her on sliding scale with FSBS AC nightly plus hypoglycemic protocol #History of secondary hyperparathyroidism Patient has a history of CKD. Continue home Calcitrol. Repeat PTH as necessary #GERD continue with home meds #Obesity complicating medical care #Prolonged QTC Would avoid QT prolonging agents. Repeat EKG tomorrow a.m. Placed on telemetry for close monitoring. Patient has no symptoms of chest pain VS, I&O, 24H, [facility] Vital Signs/I&O Vital Signs Date Time Temp Pulse Resp B/P (MAP) Pulse Ox O2 Delivery O2 Flow Rate FiO2 06/09/21 14:35 87 103/51 (68) 06/09/21 14:00 97.7 20 94 Nasal Cannula 5.0 I&O- Last 24 Hours up to 6 AM 06/09/21 06:00 Intake Total 50 ml Output Total 1050 ml Balance -1000 ml Laboratory Data 24H LABS Laboratory Tests 2 06/08/21 19:51: Immature Granulocyte % (Auto) 1.9, Neutrophils (%) (Auto) 91.0H, Lymphocytes (%) (Auto) 2.0L, Monocytes (%) (Auto) 4.3, Eosinophils (%) (Auto) 0.4, Basophils (%) (Auto) 0.4, Neutrophils # (Auto) 12.2H, Lymphocytes # (Auto) 0.3L, Monocytes # (Auto) 0.6, Eosinophils # (Auto) 0.1, Basophils # (Auto) 0.1, Nucleated Red Blood Cells % (auto) 0.0, Anion Gap 6L, Glomerular Filtration Rate 16.2L, Calcium Level 8.6L, Magnesium Level 2.3, Total Bilirubin 0.2, Aspartate Amino Transf (AST/SGOT) 25, Alanine Aminotransferase (ALT/SGPT) 18, Alkaline Phosphatase 80, HE-Jqy-S-Type Natriuretic Peptide 3510H, Total Protein 6.5, Albumin 2.8L, Albumin/Globulin Ratio 0.8L 06/08/21 20:26: POC Troponin I (Misc) 0.07 06/08/21 23:41: POC Lactate (Misc Panel) 2.35*H 06/08/21 23:44: Urine Color YELLOW, Urine Appearance HAZY, Urine pH 5.0, Urine Specific [place] 1.013, Urine Protein 1+H, Urine Glucose (UA) NEGATIVE, Urine Ketones NEGATIVE, Urine Blood 2+H, Urine Nitrite NEGATIVE, Urine Bilirubin NEGATIVE, Urine Urobilinogen 0.2, Urine Leukocyte Esterase NEGATIVE, Urine WBC (Auto) 1, Urine RBC (Auto) 2, Urine Hyaline Casts (Auto) 0, Urine Bacteria (Auto) 1+H, Urine Squamous Epithelial Cells 0, Urine Sperm (Auto) 06/09/21 04:08: Coronavirus (COVID-19)(PCR) NEGATIVE 06/09/21 04:25: Lactic Acid Level 0.7, Troponin I 0.06 06/09/21 05:31: Bedside Glucose (Misc Panel) 166H 06/09/21 08:15: Bedside Glucose (Misc Panel) 143H 06/09/21 11:25: Bedside Glucose (Misc Panel) 212H 06/09/21 16:36: Bedside Glucose (Misc Panel) 90 CBC/BMP Laboratory Tests 06/08/21 19:51 Microbiology Microbiology 06/09/21 Gram Stain - Final, Resulted 06/09/21 Sputum Culture, Resulted Pending 06/09/21 Blood Culture, Received Pending 06/09/21 Blood Culture, Received Pending 06/08/21 Respiratory Virus Panel (PCR) ([facility]) - Final, Complete Human Rhinovirus/Enterovirus GME ATTESTATION GME ATTESTATION My faculty preceptor for this patient encounter was physically present during the encounter and was fully available. All aspects of the patient interview, examination, medical decision making process, and medical care plan development were reviewed and approved by the faculty preceptor. The faculty preceptor is aware and concurs with the plan as stated in the body of this note and will attest to such by his/her cosignature. ATTENDING NOTE I personally examined Ms. Montanez and discussed her physical examination findings, investigative findings, assessment and plan with the resident and I agree with the above noted assessment and plan. She was admitted for acute on chronic hypoxemic respiratory failure i/s/o Rhinovirus and and acute on chronic HFpEF, with suspected superimposed PNA with chronic advanced CKD with significantly diminished GFR. Matt Rhodes DO Jun 09, 2021 17:48 CARITO WEBB MD Jun 10, 2021 17:17
[2021-06-09] MEDS: cefTRIAXone SOD 1 GM in D5W MINI-BAG PLUS 50 ML IV SCH (21:01)
[2021-06-09] MEDS: VITAMIN D 1,000 INTERNATIONAL UNITS TABLET PO SCH (21:01)
[2021-06-09 22:00] VITALS: BP 137/50
[2021-06-10] MEDS: ACETAMINOPHEN TAB 650MG DOSE (2X325MG) PO PRN ×2 (04:01→12:46)
[2021-06-10] MEDS: FUROSEMIDE 40MG/4ML VIAL (J1940) IV SCH (05:08)
[2021-06-10] MEDS: HEPARIN SOD (PORCINE) 5000UNITS/ML 1ML VIAL/SYRINGE SC SCH ×3 (05:10→21:04)
[2021-06-10 06:00] VITALS: BP 116/67
[2021-06-10 06:37] LABS: HEMATOCRIT 31.1 % (36.0-47.0); HEMOGLOBIN 9.4 g/dl (12.0-15.5); MEAN CORPUSCULAR HEMOGLOBIN 32.2 pg (27.0-33.0); MEAN CORPUSCULAR HGB CONC 30.2 g/dl (32.0-36.5); MEAN CORPUSCULAR VOLUME 106.5 fl (80.0-96.0); PLATELET COUNT, AUTOMATED 207 10^3/uL (150-450); RED BLOOD COUNT 2.92 10^6/uL (4.00-5.40); WHITE BLOOD COUNT 10.8 10^3/uL (4.0-10.0)
[2021-06-10 06:59] LABS: CALCIUM LEVEL 8.2 MG/DL (8.8-10.2); CREATININE FOR GFR 3.53 MG/DL (0.55-1.30); GLOMERULAR FILTRATION RATE 13.5 (>39); MAGNESIUM LEVEL 2.4 MG/DL (1.8-2.4)
[2021-06-10] MEDS: HumaLOG INSULIN (NovoLOG) PER UNIT SC SCH ×4 (07:30→20:50)
--- NOTE | 2021-06-10 08:42 | REP ---
INDICATION: chf. COMPARISON: Comparison portable chest x-ray 08 June 2021. TECHNIQUE: Portable upright AP chest radiograph. FINDINGS: A multilead pacemaker is again noted in the right heart view of the left side. The patient appears to be status post mitral and aortic valve replacement. Moderate cardiac enlargement is observed. Pulmonary vasculature is cephalized. There is platelike atelectasis in the left base. The platelike atelectasis previously noted in the right base is improved. No new infiltrate. IMPRESSION: Cardiomegaly with pacemaker. Platelike atelectasis persists left base. Cephalization. <Electronically signed by Mikie Rose > 06/10/21 2062
[2021-06-10] MEDS: allopurinoL 100 MG TAB PO SCH (08:43)
[2021-06-10] MEDS: AMIODARONE 200 MG TAB (PACERONE) PO SCH (08:43)
[2021-06-10] MEDS: CALCITRIOL 0.25 MCG CAP (S0169) PO SCH (08:43)
[2021-06-10] MEDS: FERROUS SULFATE 325MG TAB PO SCH ×2 (08:43→21:04)
[2021-06-10] MEDS: FOLIC ACID 1 MG TAB PO SCH (08:43)
[2021-06-10] MEDS: PANTOPRAZOLE 40MG TAB (PROTONIX) PO SCH (08:43)
[2021-06-10] MEDS: ATORVASTATIN 20 MG TAB PO SCH (08:43)
[2021-06-10] MEDS: FUROSEMIDE 80 MG TAB PO SCH (08:43)
[2021-06-10] MEDS ORDERED: RALOXIFENE 60MG TABLET (PATIENT'S OWN MED) PO SCH (09:00)
[2021-06-10] MEDS: ADVAIR HFA 230/21MCG INHALER INH SCH ×2 (10:58→20:49)
--- NOTE | 2021-06-10 13:09 | IPNPDOC ---
Text Note Date of Service The patient was seen on 06/10/21. NOTE SUBJECTIVE: -Currently on 5 L nasal cannula. -yesterday confirmed human rhinovirus/enterovirus URI. -Currently on droplet precautions due to recent covid-19 exposure as several family members have tested positive -Reports that she continues to feel a bit better. However she is on 5L OBJECTIVE: VITAL SIGNS: Please see below. GENERAL: NAD, on 5L nasal cannula HEENT: Head normocephalic atraumatic, eyes EOMI, MMM CARDIOVASCULAR: Regular rate and rhythm, no murmurs, no rubs, no gallops. RESPIRATORY: has crackles R>L lower lobes, otherwise without wheezing ABDOMINAL: Obese, normoactive bowel sounds, NTND EXT: no edema, WWP LABORATORY DATA: Reviewed WBC 10.8 Hgb 9.9 platelets 207 na 141 K 4 Cr 3.53 mag 2.4 IMAGING: Abdomen pelvis CT 06/09/2021: 1. Significantly limited study demonstrating no acute process or explanation for fever. 2. Colonic diverticulosis without active inflammation Chest CT 06/09/2021: Possible focal inflammatory or infectious focus in the left upper lobe ASSESSMENT AND PLAN: 76-year-old W who was admitted for acute on chronic hypoxemic respiratory failure i/s/o Rhinovirus and and acute on chronic HFpEF, with suspected superimposed PNA. PROBLEMS: #Acute on chronic hypoxemic respiratory failure i/s/o Rhinovirus and and acute on chronic HFpEF, with suspected superimposed PNA. -supplemental O2, to goal >89 -continue home mdis -giving ceftriaxone for suspected PNA with sputum showing GPCs in pairs and chains -droplet precautions -s/p IV diuresis, will restore home diuretic dosing given now rising Cr, pending nephrology recommendations #Sepsis, 2/2 rhinovirus and possible CAP: Fever with leukocytosis and lactic acidosis -f/u UCx and BCx -continue ceftriaxone for potential CAP and f/u BCx and SCx -f/u procalcitonin -lactic acidosis resolved #Chronic anemia -Monitor her CBC closely and transfuse if necessary for goal Hgb >8. #NOAH on CKD, with GFR approaching 10 -consult nephrology despite her diuretic responsiveness given her CKD and GFR that is approaching dialysis need. -daily BMP -for today will give home PO dosing of diuretic pending nephrology recs #Essential hypertension -Continue home meds #COPD w/o exacerbation despite acute on chronic hypoxemia i/s/o rhinovirus URI -c/w home meds/inhalers -O2 titrate to SPO2 88%-92% #DM2 -Hold her home meds glipizide and Januvia. -FSBS ACHS -hypoglycemic protocol #History of secondary hyperparathyroidism -Has history of CKD. Continue home Calcitrol. #GERD -continue with home PPI #Obesity complicating medical care DVT ppx: heparin SC TID VS,Fishbone, I+O VS, Fishbone, I+O Laboratory Tests 06/10/21 06:16 Vital Signs Date Time Temp Pulse Resp B/P (MAP) Pulse Ox O2 Delivery O2 Flow Rate FiO2 06/10/21 06:00 98.2 100 18 116/67 (83) 90 Nasal Cannula 5.0 I&O- Last 24 Hours up to 6 AM 06/10/21 06:00 Intake Total 1540 ml Output Total 2250 ml Balance -710 ml CARITO WEBB MD Jun 10, 2021 08:55
--- NOTE | 2021-06-10 13:51 | CR ---
NEPHROLOGY CONSULTATION DATE: 06/10/2021 CONSULTATION REQUESTED BY: Martina Singh M.D. REASON FOR CONSULTATION: Acute kidney injury superimposed on chronic kidney disease in this lady with congestive heart failure. HISTORY OF PRESENT ILLNESS: Mrs. Montanez is a 77-year-old female with multiple chronic medical problems including history of chronic lung disease with emphysema on home oxygen 3 liters, history of advanced chronic kidney disease, congestive heart failure and anemia. She presented to the emergency room with shortness of breath and was admitted last evening. She tested positive for rhinovirus, but was also noted to be in congestive heart failure. She was diuresed and this morning, her kidney function is noted to be much worse. Nephrology consultation was requested and patient is seen. She is sitting in the chair at the time of my visit. She reports that she has been more short of breath for at least three days prior to admission. She was too weak that she could not even get up from the bed, and that is the reason why her family decided to bring her to the emergency room. PAST MEDICAL HISTORY: Significant for: 1. History of advanced chronic lung disease on home oxygen. 2. History of obesity. 3. History of chronic kidney disease. 4. Obstructive sleep apnea. 5. Essential hypertension. 6. History of type 2 diabetes. 7. History of coronary artery disease. 8. Congestive heart failure. 9. Secondary hyperparathyroidism. 10. Anemia. 11. Gastroesophageal reflux disease. PAST SURGICAL HISTORY: Significant for: 1. Watchman's procedure last year. 2. Pacemaker placement. 3. Hysterectomy. 4. Removal of gallbladder. 5. Appendectomy. 6. Femoral bypass. PERSONAL AND SOCIAL HISTORY: Patient is . She is an active smoker. FAMILY HISTORY: Negative for end-stage renal disease, but significant for diabetes. MEDICATIONS: Her home medications include: - albuterol nebulizers four times a day - allopurinol 100 mg daily - amiodarone 200 mg daily - atorvastatin 20 mg daily - calcitriol 0.25 mcg daily - calcium carbonate 600 mg twice a day - vitamin D 1000 units daily - ferrous sulfate 325 mg twice a day - Breo Ellipta inhaler once a day - folic acid 1 mg daily - furosemide 80 mg daily - glipizide ER 2.5 mg daily - pantoprazole 40 mg daily - raloxifene 60 mg daily - Januvia 50 mg daily - diltiazem 120 mg daily ALLERGIES: She has allergies to CODEINE, PHENYTOIN, GABAPENTIN and OXYCODONE. REVIEW OF SYSTEMS: GENERAL: Patient denies any fevers or chills. She was just very weak and short of breath and could not even get up from the bed. EARS, NOSE AND THROAT: Unremarkable. CARDIOVASCULAR SYSTEM: Significant for chronic dyspnea and hypoxemia. She denies any chest pain. RESPIRATORY SYSTEM: Significant for chronic emphysema and respiratory failure. She is on home oxygen. Denies any hemoptysis or pleuritic-type chest pain. GASTROINTESTINAL (GI) SYSTEM: Negative for nausea, vomiting or diarrhea. GENITOURINARY () SYSTEM: Negative for dysuria or hematuria. MUSCULOSKELETAL SYSTEM: Significant for generalized weakness and chronic degenerative arthritis. ENDOCRINE SYSTEM: Significant for type 2 diabetes and secondary hyperparathyroidism. HEMATOLOGICAL SYSTEM: Significant for chronic anemia. She denies any excessive bleeding or black colored stool. SKIN: Negative for rash or ulcers. NEUROLOGICAL SYSTEM: Negative for seizures or stroke. PHYSICAL EXAMINATION: GENERAL: Patient is awake and alert, at her baseline mentation, sitting in the chair. VITAL SIGNS: Temperature 98.2 degrees Fahrenheit, heart rate 100 per minute, respiratory rate 20 per minute, blood pressure 116/67 mmHg, oxygen saturation 90% on 5 liters oxygen. HEAD: Atraumatic. No oral thrush or ulcers noted. Pupils are equal and reactive to light and sclerae are anicteric. EARS, NOSE AND THROAT: Unremarkable. NECK: Supple and jugular venous distention (JVD) seems to be quite prominent, even sitting upright. HEART: Regular S1, S2 with borderline tachycardia. LUNGS: Diminished breath sounds and rales at lower 1/3 bilaterally. ABDOMEN: Soft. Bowel sounds are normal. No palpable organomegaly. EXTREMITIES: No any cyanosis or clubbing. Lower extremity edema is present. NEUROLOGIC: She is awake, alert and at her baseline mentation. LABORATORY DATA: On June 08, 2021, her WBC was 13.5, hemoglobin 9.3 and hematocrit 30.7. Today her WBC is 10.8, hemoglobin 9.4 and hematocrit 31. Urinalysis showed 1+ protein and 2+ blood. She only had 1 WBC and 2 RBCs. Chemistry on admission showed BUN 56 and creatinine 3.0, sodium 141 and potassium 4.9. A BNP level was 5310. Today, her BUN is 75 and creatinine 3.53, sodium 141 and potassium 4.0, calcium 8.2, magnesium 2.4. IMAGING STUDIES: Included a chest CT scan and chest x-ray today. She has cardiomegaly and pacemaker present. Platelet atelectasis on the left base and cephalization of her blood vessels. Chest CT scan done on June 09, 2021 showed possible focal inflammatory and infectious focus in the left upper lobe measuring 15 mm, mild pulmonary fibrosis and dependent atelectasis. PROBLEMS: 1. Acute kidney injury superimposed on chronic kidney disease. Patient has advanced chronic kidney disease even at baseline. Her worsening kidney function is most likely related to congestive heart failure and diuresis. She is still slightly decompensated. I would not stop her diuretic completely, but we will cut down the dose of her diuretic while monitoring her kidney function. A BNP level should be repeated again. 2. Congestive heart failure. Volume status still decompensated. I agree with the diuresis at a slightly decreased rate now and continued monitoring of her volume status and kidney function. 3. Anemia. At present, her anemia is stable and does not need any urgent intervention. 4. Pulmonary infiltrate. There was only a small infiltrate suspected on her chest CT scan. She is currently on antibiotics, including Zosyn and ceftriaxone. 5. History of gout. At present, she is asymptomatic and remains on allopurinol 100 mg daily. Thank you for involving me in the care of Mrs. Montanez. I will follow her along with you.
[2021-06-10 14:00] VITALS: BP 113/72
[2021-06-10] MEDS: cefTRIAXone SOD 1 GM in D5W MINI-BAG PLUS 50 ML IV SCH (21:01)
[2021-06-10] MEDS: VITAMIN D 1,000 INTERNATIONAL UNITS TABLET PO SCH (21:04)
[2021-06-10 21:53] VITALS: BP 114/71
[2021-06-11] MEDS: ACETAMINOPHEN TAB 650MG DOSE (2X325MG) PO PRN ×4 (00:19→19:48)
[2021-06-11] MEDS: HEPARIN SOD (PORCINE) 5000UNITS/ML 1ML VIAL/SYRINGE SC SCH ×3 (05:06→21:55)
[2021-06-11 06:00] VITALS: BP 112/60
[2021-06-11 06:36] LABS: NT-PRO BNP 3081 PG/ML (<125)
[2021-06-11] MEDS: HumaLOG INSULIN (NovoLOG) PER UNIT SC SCH ×4 (07:30→20:40)
[2021-06-11] MEDS: ADVAIR HFA 230/21MCG INHALER INH SCH ×2 (08:02→20:00)
[2021-06-11 08:11] LABS: BLOOD UREA NITROGEN 92 MG/DL (7-18); CALCIUM LEVEL 8.3 MG/DL (8.8-10.2); CARBON DIOXIDE LEVEL 33 MEQ/L (21-32); CHLORIDE LEVEL 97 MEQ/L (98-107); CREATININE FOR GFR 4.05 MG/DL (0.55-1.30); GLOMERULAR FILTRATION RATE 11.5 (>39); GLUCOSE, FASTING 104 MG/DL (70-100); POTASSIUM SERUM 4.1 MEQ/L (3.5-5.1); SODIUM LEVEL 139 MEQ/L (136-145)
[2021-06-11] MEDS: FOLIC ACID 1 MG TAB PO SCH (08:21)
[2021-06-11] MEDS: CALCITRIOL 0.25 MCG CAP (S0169) PO SCH (08:21)
[2021-06-11] MEDS: ATORVASTATIN 20 MG TAB PO SCH (08:21)
[2021-06-11] MEDS: FERROUS SULFATE 325MG TAB PO SCH ×2 (08:21→21:55)
[2021-06-11] MEDS: FUROSEMIDE 80 MG TAB PO SCH ×2 (08:21→18:35)
[2021-06-11] MEDS: AMIODARONE 200 MG TAB (PACERONE) PO SCH (08:21)
[2021-06-11] MEDS: PANTOPRAZOLE 40MG TAB (PROTONIX) PO SCH (08:21)
[2021-06-11] MEDS: allopurinoL 100 MG TAB PO SCH (08:21)
[2021-06-11 11:49] LABS: HEPATITIS B SURFACE ANTIBODY NEGATIVE (POSITIVE)
[2021-06-11 11:59] LABS: HEPATITIS B SURFACE ANTIGEN NEGATIVE (NEGATIVE)
[2021-06-11 12:28] LABS: HEPATITIS B CORE ANTIBODY IGM NEGATIVE (NEGATIVE)
--- NOTE | 2021-06-11 13:42 | IPN ---
PROGRESS NOTE DATE: 06/11/2021 SUBJECTIVE: Mrs. Montanez is seen this morning on her bedside. She is getting ready for an echocardiogram on her bedside. She reports that her dyspnea is slightly improved and she is still requiring five to six liters of oxygen. She denies any nausea or vomiting. OBJECTIVE: VITAL SIGNS: Temperature is 98.7 degrees Fahrenheit, heart rate is 90 per minute and respiratory rate is 20 per minute. Blood pressure is 112/60 mmHg and oxygen saturation is 92% on six liters of oxygen. HEENT: Head is atraumatic. NECK: Supple. JVD is moderately elevated. HEART: Heart sounds are irregular. LUNGS: Bilateral rales at lower one-third. ABDOMEN: Soft and nontender. Bowel sounds are normal. EXTREMITIES: Without any cyanosis or clubbing. NEUROLOGIC: She is awake, alert and at her baseline mentation. LABORATORY DATA: Today's labs shows a sodium level of 139, potassium of 4.1, CO2 33, BUN 92 and creatinine 4.05. Calcium is 8.3 and a BNP level of 3081. It is important to notice that on admission on June 08 her BNP level was 3510. WBC count is 10.8, hemoglobin 9.4 and hematocrit 31. PROBLEMS: 1. Acute on chronic renal failure. Kidney function is slightly worse compared to yesterday. GFR is now down to 11.5. Patient is known to have advanced chronic kidney disease at baseline and she is very much likely to require dialysis. We will watch for the next 24 hours and if her kidney function does not improve then dialysis will be initiated. 2. Congestive heart failure, volume status slightly improved. I am going to increase her Lasix dose to 80 mg b.i.d. pending echocardiogram report. She is also being treated for rhinovirus and has chronic lung disease so volume status evaluation is somewhat limited on physical exam. Her BNP level is 3081 which is only slightly improved since admission. 3. Anemia, her anemia was stable with CBC yesterday. Today, there was no CBC checked. No urgent need for any intervention.
[2021-06-11 14:00] VITALS: BP 92/50
--- NOTE | 2021-06-11 17:09 | IPNPDOC ---
Date Seen The patient was seen on 06/11/21. Progress Note SUBJECTIVE: -Currently on 5 L nasal cannula. -Respiratory panel was positive for human rhinovirus/enterovirus; sputum culture was positive preliminary for Streptococcus pneumonia -Currently on droplet precautions due to recent covid-19 exposure as several family members have tested positive -Reports that she continues to feel a bit better. -Dr. Mcclellan has been consulted for this patient's management -Per nurses however patient has been complaining of right hip and groin pain. Patient states that it was from fall she had during last Aimee. Says tylenol has been helping. OBJECTIVE: VITAL SIGNS: Please see below. GENERAL: NAD, on 5L nasal cannula, resting comfortably in bed HEENT: Head normocephalic atraumatic, eyes EOMI, MMM CARDIOVASCULAR: Regular rate and rhythm, no murmurs, no rubs, no gallops. RESPIRATORY: Crackles bilaterally, otherwise without wheezing ABDOMINAL: Obese, normoactive bowel sounds, tender to palpation in the right lower quadrant area Extremities: No appreciable swelling noted in lower extremities bilaterally; radial and dorsalis pedis pulses palpated Review of systems: Cardiac: Denies chest pain, tachycardia Respiratory: Denies pain with breathing; reports shortness of breath and cough Gastrointestinal: Denies nausea, vomiting, diarrhea Genitourinary: Denies dysuria, hematuria Neurologic denies headache, dizziness LABORATORY DATA: Reviewed IMAGING: Abdomen pelvis CT 06/09/2021: 1. Significantly limited study demonstrating no acute process or explanation for fever. 2. Colonic diverticulosis without active inflammation Chest CT 06/09/2021: Possible focal inflammatory or infectious focus in the left upper lobe Chest x-ray 06/10/2021: Cardiomegaly with pacemaker. Platelike atelectasis persists in the left base. Cephalization. ASSESSMENT AND PLAN: 76-year-old W who was admitted for acute on chronic hypoxemic respiratory failure i/s/o Rhinovirus and and acute on chronic HFpEF, with suspected superimposed PNA. PROBLEMS: #Acute on chronic hypoxemic respiratory failure i/s/o Rhinovirus and and acute on chronic HFpEF, with suspected superimposed PNA. -supplemental O2, to goal >89 -continue home mdis -giving ceftriaxone for suspected PNA with sputum showing GPCs in pairs and chains -droplet precautions -s/p IV diuresis, will restore home diuretic dosing given now rising Cr, pending nephrology recommendations #Sepsis, 2/2 rhinovirus and possible CAP: Fever with leukocytosis and lactic acidosis -f/u UCx and BCx -continue ceftriaxone for potential CAP and f/u BCx and SCx -procalcitonin resulted and within normal limits -lactic acidosis resolved #Chronic anemia -Monitor her CBC closely and transfuse if necessary for goal Hgb >8. #NOAH on CKD, with GFR approaching 10 -consult nephrology despite her diuretic responsiveness given her CKD and GFR that is approaching dialysis need. -daily BMP today 3081 -Dr. Mcclellan was consulted on this patient. He has advised that we will watch her kidney function over the next 24 hours and if no improvement is seen then dialysis will be initiated. #Essential hypertension -Continue home meds #COPD w/o exacerbation despite acute on chronic hypoxemia i/s/o rhinovirus URI -c/w home meds/inhalers -O2 titrate to SPO2 88%-92% #Congestive heart failure: -Per Dr. Mcclellan volume status has improved. He will increase her Lasix dose to 80 twice daily pending echocardiogram report. #DM2 -Hold her home meds glipizide and Januvia. -FSBS ACHS -hypoglycemic protocol #History of secondary hyperparathyroidism -Has history of CKD. Continue home Calcitrol. #GERD -continue with home PPI #Obesity complicating medical care DVT ppx: heparin SC TID GME ATTESTATION My faculty preceptor for this patient encounter was physically present during the encounter and was fully available. All aspects of the patient interview, examination, medical decision making process, and medical care plan development were reviewed and approved by the faculty preceptor. The faculty preceptor is aware and concurs with the plan as stated in the body of this note and will attest to such by his/her cosignature. ATTENDING NOTE I personally examined Ms. Montanez with the collector of internal revenue and discussed her physical examination findings, investigative findings, assessment and plan with the resident team and I agree with the above noted assessment and plan. She was admitted for acute on chronic hypoxemic respiratory failure i/s/o Rhinovirus and and acute on chronic HFpEF, with superimposed strep PNA with course c/b acute on chronic advanced CKD with significantly diminished GFR with nephrology onboard. VS, I&O, 24H, Fishbone Vital Signs/I&O Vital Signs Date Time Temp Pulse Resp B/P (MAP) Pulse Ox O2 Delivery O2 Flow Rate FiO2 06/11/21 14:00 97.8 66 18 92/50 (64) 91 Nasal Cannula 5.0 I&O- Last 24 Hours up to 6 AM 06/11/21 06:00 Intake Total 580 ml Output Total 850 ml Balance -270 ml Laboratory Data 24H LABS Laboratory Tests 2 06/10/21 20:25: Bedside Glucose (Misc Panel) 116H 06/11/21 05:28: Anion Gap 9, Glomerular Filtration Rate 11.5L, Calcium Level 8.3L, HG-Kiz-[id number]-Type Natriuretic Peptide 3081H, Hepatitis B Surface Antigen NEGATIVE, Hepatitis B Surface Antibody NEGATIVE, Hepatitis B Core IgM Antibody NEGATIVE, Hepatitis C Antibody Index 0.0 06/11/21 06:05: Bedside Glucose (Misc Panel) 107 06/11/21 11:34: Bedside Glucose (Misc Panel) 144H CBC/BMP Laboratory Tests 06/11/21 05:28 Microbiology Microbiology 06/09/21 Gram Stain - Final, Resulted 06/09/21 Sputum Culture - Preliminary, Resulted Streptococcus Pneumoniae 06/09/21 Blood Culture - Preliminary, Resulted No Growth after 48 hours. All Specime... 06/09/21 Blood Culture - Preliminary, Resulted No Growth after 48 hours. All Specime... 06/08/21 Respiratory Virus Panel (PCR) ([facility]) - Final, Complete Human Rhinovirus/Enterovirus Matt Rhodes DO Jun 11, 2021 17:09 CARITO WEBB MD Jun 11, 2021 18:21
[2021-06-11] MEDS: cefTRIAXone SOD 1 GM in D5W MINI-BAG PLUS 50 ML IV SCH (19:36)
[2021-06-11] MEDS: VITAMIN D 1,000 INTERNATIONAL UNITS TABLET PO SCH (21:55)
[2021-06-11 22:07] VITALS: BP 123/70
[2021-06-12] MEDS: ACETAMINOPHEN TAB 650MG DOSE (2X325MG) PO PRN ×3 (04:22→21:52)
[2021-06-12] MEDS ORDERED: NS 250 ML IV ONE (04:55)
[2021-06-12] MEDS: HEPARIN SOD (PORCINE) 5000UNITS/ML 1ML VIAL/SYRINGE SC SCH ×2 (05:19→16:30)
[2021-06-12 05:59] LABS: BASO % 0.1 % (0.0-1.0); HEMOGLOBIN 9.8 g/dl (12.0-15.5); LYMPH # 0.8 10^3/uL (1.5-5.0); LYMPH % 10.1 % (24.0-44.0); MEAN CORPUSCULAR HEMOGLOBIN 32.7 pg (27.0-33.0); MEAN CORPUSCULAR HGB CONC 31.6 g/dl (32.0-36.5); MEAN CORPUSCULAR VOLUME 103.3 fl (80.0-96.0); NEUTROPHILS # 6.3 10^3/uL (1.5-8.5); NEUTROPHILS % 75.9 % (36.0-66.0); PLATELET COUNT, AUTOMATED 170 10^3/uL (150-450); WHITE BLOOD COUNT 8.3 10^3/uL (4.0-10.0)
[2021-06-12 06:15] VITALS: BP 93/58
[2021-06-12 06:21] VITALS: BP 100/60
[2021-06-12 06:24] LABS: CALCIUM LEVEL 8.1 MG/DL (8.8-10.2); CREATININE FOR GFR 4.64 MG/DL (0.55-1.30); GLOMERULAR FILTRATION RATE 9.8 (>39)
[2021-06-12] MEDS: HumaLOG INSULIN (NovoLOG) PER UNIT SC SCH ×4 (07:30→21:00)
[2021-06-12] MEDS: ADVAIR HFA 230/21MCG INHALER INH SCH ×2 (07:57→20:00)
--- NOTE | 2021-06-12 08:13 | ECHO ---
ECHOCARDIOGRAM DATE OF PROCEDURE: 06/11/2021 Age: Gender: F Height: 160 cm Weight: 86 kg REFERRING PHYSICIAN: Judy Solis DO INDICATION: Dyspnea MEASUREMENTS: IVS: 1.1 LV: 5.0 LVPW: 1.2 LA: 3.7 Aorta: 3.3 Left atrial volume index: 43 FINDINGS: This study is of markedly limited quality with very difficult visualization. Underlying sinus rhythm with wide QRS complex. Left ventricle has normal size. I cannot completely rule out some wall motion abnormality but based on limited views, there is probably normal or near-normal left ventricular (LV) systolic function. Right ventricle was poorly seen but grossly appears normal. There is bi-atrial enlargement. Aortic valve has sclerotic abnormalities but visualization was limited and I cannot comment on its anatomic structure. There are degenerative abnormalities of mitral valve with mitral annular calcifications but preserved mobility of leaflets. Again the image was poor. Tricuspid valve appears normal. Pulmonic valve was not seen. No pericardial effusion is noted. Inferior vena cava was not visualized. Aortic root is normal. Aortic arch and abdominal aorta were not seen. Doppler interrogation of aortic valve reveals no insufficiency and trivial stenosis with mean gradient 7 mmHg. There is also trivial mitral stenosis with mean gradient 3 mmHg. Mild tricuspid insufficiency is seen. Calculated pulmonary artery pressure at a minimum is in the 30s assuming normal central venous pressure. Mitral inflow pattern indicated grade 1 diastolic dysfunction but this is not completely reliable in the setting of mild mitral stenosis. CONCLUSIONS: 1. This study is of poor technical quality. Underlying sinus rhythm with wide QRS complex. 2. Normal left ventricle (LV) size with grossly preserved left ventricular (LV) systolic function based on limited views. I certainly cannot rule out segmental wall motion abnormality with any degree of certainty. Most likely grade 1 diastolic dysfunction. 3. Trivial aortic stenosis. 4. Trivial mitral stenosis. 5. Unable to estimate central venous pressure but at least mild pulmonary hypertension. MTDD
[2021-06-12] MEDS ORDERED: LIDOCAINE 1% MDV 20ML VIAL As Ordered ONE (08:25)
[2021-06-12] MEDS: AMIODARONE 200 MG TAB (PACERONE) PO SCH (09:47)
[2021-06-12] MEDS: COMBIVENT RESPIMAT 100-20MCG INHALER 4GM INH PRN (09:53)
--- NOTE | 2021-06-12 11:18 | ROOPDOC ---
[facility] Report Of Operation Report of Operation DATE OF PROCEDURE: 06/12/21 PREPROCEDURE DIAGNOSES: End-stage renal disease, requiring emergent hemodialysis treatment POSTPROCEDURE DIAGNOSES:End-stage renal disease, requiring emergent hemodialysis treatment PROCEDURE PERFORMED: Insertion of right internal jugular vein permacatheter. A 19 cm Palindrome permacatheter was inserted, under ultrasound-guided venous access and fluoroscopic guidance. SURGEON: Padmini Saavedra MD LIGHT BULB ASSEMBLER: None ANESTHESIA: Local ESTIMATED BLOOD LOSS: Approximately two mL. COMPLICATIONS: None. REMARKS: Patent right internal jugular vein FINDINGS: Good flow through both ports of the catheter. The catheter tip was at the junction of the superior vena cava and the right atrium SPECIMENS REMOVED: None PROCEDURE NOTE: Indication for the procedure: The patient is a 76-year-old lady, who was hospitalized with pneumonia, and noted to have worsening chronic kidney disease, and a fluid overload, requiring urgent hemodialysis. DESCRIPTION OF PROCEDURE: Informed consent was obtained from the patient, after explaining the risk benefits and complications of the procedure, which include but are not limited to bleeding, infection, cardiorespiratory complications, including pneumothorax, hemothorax, catheter related complications including sepsis, catheter migration, thrombosis, dislodgment etc. Alternatives to the procedure including nonoperative treatment and its consequences were explained. The patient understood and agreed to the procedure The patient was laid supine on the procedure table. The right side of the neck and her upper chest were cleaned and draped in a sterile fashion. She was already on scheduled antibiotics for pneumonia. A timeout was performed. After administering local anesthesia with 1% lidocaine, the right internal jugular vein was accessed, using the micropuncture needle under ultrasound guidance. The needle was exchanged to five Guamanian micro sheath over 0.018 inch guidewire. All procedures were performed under fluoroscopy guidance. The sheath was then exchanged to an Amplatz floppy tip guidewire, which was positioned in the inferior vena cava. The subcutaneous tunnel for the catheter and the exit site for the catheter were then anesthetized with 1% lidocaine. A small skin incision was made, at the catheter exit site, which was planned, about 2 fingerbreadths below the clavicle, slightly lateral to the midclavicular line. The 19 cm palindrome catheter, that was attached to the metallic tunneler was then tunneled from the exit site to the vein access site subcutaneously. The access site was serially d ilated with dilators, to accommodate the sheath. The dilator of the sheath and the wire were removed, and the catheter that was disconnected from the tunnel was then inserted into the sheath, as the sheath was gently peeled away. The final position of the catheter tip was noted under fluoroscopy. There were no kinks or twists in the course of the catheter. Both ports were aspirated and good flow was noted. Both ports were flushed with heparinized saline and hep-locked with full-strength heparin. The catheter was anchored to the skin with 2-0 Prolene suture. The vein access site was closed with a 4-0 Monocryl subcuticular suture. Dry dressings were placed. The patient tolerated the procedure well and was transferred to the recovery room in a hemodynamically stable condition, with a guarded prognosis Padmini Saavedra MD Jun 12, 2021 11:18
--- NOTE | 2021-06-12 12:24 | IPN ---
PROGRESS NOTE DATE: 06/12/2021 SUBJECTIVE: Mrs. Montanez is seen this morning. Unfortunately, her kidney function has worsened and she did not diurese and in fact she was slightly positive fluid balance yesterday. Her echocardiogram was done yesterday which did not help much other than reiterating that she has Grade 1 diastolic dysfunction. Inferior vena cava could not be evaluated so her volume status discussion remains basically on clinical grounds. She remains hypoxic requiring 7 liters of oxygen now. Oxygenation is only in the high 80s and not even up to 90. OBJECTIVE: VITAL SIGNS: Temperature is 98.7 degrees Fahrenheit, heart rate is 120 per minute and respiratory rate is 20 per minute. Blood pressure is 135/60 mmHg and oxygen saturation 89% on 7 liters of oxygen. HEENT: Head is atraumatic. Pupils are equal and reactive to light. Sclera anicteric. NECK: Supple. JVD is moderately elevated. She has a new Perm-A-Cath placed in her right internal jugular vein. The catheter was just placed this morning by Vascular Surgery. HEART: Her heart sounds are irregular and tachycardic. LUNGS: Diminished breath sounds and bibasilar rales. ABDOMEN: Soft and nontender, bowel sounds are normal. EXTREMITIES: Without any cyanosis or clubbing. NEUROLOGIC: She is awake, alert and at her baseline mentation. LABORATORY DATA: Today's labs showed a WBC count of 8.3, hemoglobin 9.8 and hematocrit 31, platelets are 170,000. Sodium is 138, potassium is 4.0, chloride is 96, CO2 31, BUN up to 101, and creatinine 4.64. Glucose is 109, calcium is 8.1. PROBLEMS: 1. Acute renal failure superimposed on chronic kidney disease. Patient has advanced renal failure at baseline and now she has developed worsening kidney function with congestive heart failure and rhinovirus infection. She has diuresed initially very well, however, was not in negative fluid balance over the last 24 hours. She is being dialyzed this morning and is likely to continue with maintenance dialysis. 2. Congestive heart failure, volume status is slightly decompensated, however her hypoxemia is getting worse. Would try to remove at least one liter of fluid today and see how she does. We will consider another session of dialysis tomorrow to remove further fluid. 3. Anemia. Her anemia is stable and does not need any urgent intervention at present. 4. Rhinovirus respiratory infection. Patient is more hypoxic probably due to a combination of viral infection and congestive heart failure. There is also a risk for bacterial infection and she remains on Rocephin 1 gram every 24 hours. 5. Atrial fibrillation, her ventricular rate is above 100 today and she has been on amiodarone 200 mg daily.
--- NOTE | 2021-06-12 12:34 | CR.PDOC ---
General Date of Consultation: Jun 12, 2021 (800 am) Referring Provider: ELIZA MOHAMUD DO Attending Physician: Padmini Saavedra MD Consultation REASON FOR CONSULTATION/CHIEF COMPLAINT: Acute worsening of chronic kidney disease, requiring urgent hemodialysis and hemodialysis access HISTORY OF PRESENT ILLNESS: Mrs. Montanez is a 77-year-old female who was hospitalized with worsening dyspnea on 06/10/2021. She has history of multiple chronic medical problems including history of chronic lung disease with emphysema on home oxygen 3 liters, history of advanced chronic kidney disease, congestive heart failure and anemia. She tested positive for rhinovirus, but was also noted to be in congestive heart failure. She was initially diuresed, which only worsen her kidney function. She was also noted to have pneumonia of the left upper lobe, with strep pneumoniae noted on sputum cul tures, and is being treated with ceftriaxone. She is right-handed PAST MEDICAL HISTORY: Significant for: 1. History of advanced chronic lung disease on home oxygen. 2. History of obesity. 3. History of chronic kidney disease. 4. Obstructive sleep apnea. 5. Essential hypertension. 6. History of type 2 diabetes. 7. History of coronary artery disease. 8. Congestive heart failure. 9. Secondary hyperparathyroidism. 10. Anemia. 11. Gastroesophageal reflux disease. PAST SURGICAL HISTORY: Watchman left atrial appendage closure implant 2019 Pacemaker Implant - 2014 Hysterectomy - 1976 Removal of Gallbladder - 1967 Appendectomy - 1967 Fem-Fem - 2002 FAMILY HISTORY: Noncontributory SOCIAL HISTORY: Previous smoker, currently lives with her daughter Jennifer. REVIEW OF SYSTEMS: Review of systems, including the dementia systems, apart from the above mentioned history, is otherwise negative to the best of my knowledge PHYSICAL EXAMINATION: VITAL SIGNS: Please see below. GENERAL APPEARANCE: Obese, elderly lady, who is dyspneic, and is wheezing. She was given albuterol nebulizer-after which her dyspnea improved, and the wheezing resolved. She is awake alert and appropriately responsive. She is not in acute distress otherwise. HEENT: Pallor+, no icterus Neck: No carotid bruits RESPIRATORY: Bilateral air entry decreased at the bases, intermittent rhonchi at the bases. Diffuse wheezing-which resolved after and nebulization with albuterol. CARDIOVASCULAR: Median sternotomy scar, left infraclavicular pacemaker noted ABDOMEN: Obese, bruises secondary to subcutaneous heparin, nontender EXTREMITIES: Right radial radial pulse is not palpable, left radial pulse +1 palpable. Both hands are cool however with preserved capillary refill. Bilateral dorsalis pedis +2 palpable, no pedal edema NEUROLOGICAL: Grossly nonfocal exam PSYCHIATRIC: Cooperative, normal mood and affect LABORATORY DATA: Relevant labs and imaging noted. White count normal ASSESSMENT/PLAN: Acute worsening of chronic kidney disease. She is right-handed. She requires urgent hemodialysis treatments. Plan: Insertion of tunneled hemodialysis catheter today. Vital Signs/I&O Vital Signs Date Time Temp Pulse Resp B/P (MAP) Pulse Ox O2 Delivery O2 Flow Rate FiO2 06/12/21 11:01 124 20 89 Nasal Cannula 6.0 06/12/21 09:47 135/61 06/12/21 08:44 98.7 I&O- Last 24 Hours up to 6 AM 06/12/21 05:59 Intake Total 1330 ml Output Total 950 ml Balance 380 ml Laboratory Data Labs 24H Laboratory Tests 2 06/11/21 20:01: Bedside Glucose (Misc Panel) 143H 06/12/21 05:24: Immature Granulocyte % (Auto) 1.9, Neutrophils (%) (Auto) 75.9H, Lymphocytes (%) (Auto) 10.1L, Monocytes (%) (Auto) 12.0H, Eosinophils (%) (Auto) 0.0, Basophils (%) (Auto) 0.1, Neutrophils # (Auto) 6.3, Lymphocytes # (Auto) 0.8L, Monocytes # (Auto) 1.0H, Eosinophils # (Auto) 0.0, Basophils # (Auto) 0.0, Nucleated Red Blood Cells % (auto) 0.0 06/12/21 05:25: Anion Gap 11, Glomerular Filtration Rate 9.8L, Calcium Level 8.1L CBC/BMP Laboratory Tests 06/12/21 05:24 06/12/21 05:25 Microbiology Microbiology 06/09/21 Gram Stain - Final, Complete 06/09/21 Sputum Culture - Final, Complete Streptococcus Pneumoniae 06/09/21 Blood Culture - Preliminary, Resulted No Growth after 72 hours. All specime... 06/09/21 Blood Culture - Preliminary, Resulted No Growth after 72 hours. All specime... 06/08/21 Respiratory Virus Panel (PCR) (NICOLE) - Final, Complete Human Rhinovirus/Enterovirus Allergies Coded Allergies: codeine (Verified Adverse Reaction, Intermediate, stabbing abd pain, 11/30/20) phenytoin (Verified Adverse Reaction, Intermediate, feels like being stabbed in abd, 11/30/20) gabapentin (Verified Adverse Reaction, Mild, VERTIGO, 11/30/20) oxycodone (Verified Adverse Reaction, Mild, SHAKINESS, 11/30/20) Home Medications Scheduled Albuterol Sulf (Albuterol Sulfate) 2.5 Mg/3 Ml Vial.neb, 2.5 MG INH QID, (Reported) Allopurinol (Allopurinol) 100 Mg Tablet, 100 MG PO DAILY, (Reported) Amiodarone HCl (Amiodarone HCl) 200 Mg Tablet, 200 MG PO DAILY, (Reported) Atorvastatin Calcium (Atorvastatin Calcium) 20 Mg Tablet, 20 MG PO DAILY, (Reported) Calcitriol (Calcitriol) 0.25 Mcg Capsule, 0.25 MCG PO DAILY, (Reported) Calcium Carbonate (Calcium) 600 Mg Tablet, 600 MG PO BID, (Reported) Cholecalciferol (Vitamin D3) (Vitamin D3) 1,000 Unit Tablet, 1,000 UNITS PO QHS, (Reported) Ferrous Sulfate (Ferrous Sulfate) 325 Mg Tablet, 325 MG PO BID, (Reported) Fluticasone/Vilanterol (Breo Ellipta 200-25 Mcg INH) 1 Each Blst.w.dev, 1 PUFF INH DAILY, (Reported) Folic Acid (Folic Acid) 1 Mg Tablet, 1 MG PO DAILY, (Reported) Furosemide (Furosemide) 40 Mg Tablet, 80 MG PO DAILY, (Reported) Glipizide (Glipizide ER) 2.5 Mg Tab.er.24, 2.5 MG PO DAILY, (Reported) Pantoprazole Sodium (Pantoprazole Sodium) 40 Mg Tablet.dr, 40 MG PO DAILY, (Repo rted) Raloxifene HCl (Raloxifene HCl) 60 Mg Tablet, 60 MG PO DAILY, (Reported) Sitagliptin (Januvia) 50 Mg Tablet, 50 MG PO DAILY, (Reported) dilTIAZem HCl (Diltiazem 24Hr Cd) 120 Mg Cap.er.24h, 120 MG PO DAILY, (Reported) Scheduled PRN Albuterol Sulfate (Ventolin Hfa) 18 Gm Hfa.aer.ad, 2 PUFFS INH Q6H PRN for SOB/WHEEZING, (Reported) Docusate Sodium (Docusate Sodium) 100 Mg Capsule, 100 MG PO BID PRN for CONSTIPATION, (Reported) Miscellaneous Medications [Med Rec Comment] , (Reported) UNABLE TO SPEAK WITH PT. TO VERIFY USED EXTERNAL Padmini Saavedra MD Jun 12, 2021 12:33
[2021-06-12] MEDS: FUROSEMIDE 80 MG TAB PO SCH ×2 (12:41→16:30)
[2021-06-12] MEDS: FERROUS SULFATE 325MG TAB PO SCH ×2 (12:41→21:52)
[2021-06-12 15:50] VITALS: BP 96/57
[2021-06-12 16:17] LABS: BASO % 0.3 % (0.0-1.0); HEMATOCRIT 36.4 % (36.0-47.0); HEMOGLOBIN 11.2 g/dl (12.0-15.5); LYMPH # 0.8 10^3/uL (1.5-5.0); LYMPH % 7.4 % (24.0-44.0); MEAN CORPUSCULAR HEMOGLOBIN 32.2 pg (27.0-33.0); MEAN CORPUSCULAR HGB CONC 30.8 g/dl (32.0-36.5); MEAN CORPUSCULAR VOLUME 104.6 fl (80.0-96.0); MONO # 0.8 10^3/uL (0.0-0.8); MONO % 7.9 % (2.0-8.0); NEUTROPHILS # 8.2 10^3/uL (1.5-8.5); NEUTROPHILS % 81.6 % (36.0-66.0); PLATELET COUNT, AUTOMATED 193 10^3/uL (150-450); RED BLOOD COUNT 3.48 10^6/uL (4.00-5.40); WHITE BLOOD COUNT 10.1 10^3/uL (4.0-10.0)
[2021-06-12] MEDS: PANTOPRAZOLE 40MG TAB (PROTONIX) PO SCH (16:29)
[2021-06-12] MEDS: allopurinoL 100 MG TAB PO SCH (16:29)
[2021-06-12] MEDS: ATORVASTATIN 20 MG TAB PO SCH (16:29)
[2021-06-12] MEDS: FOLIC ACID 1 MG TAB PO SCH (16:29)
[2021-06-12] MEDS: CALCITRIOL 0.25 MCG CAP (S0169) PO SCH (16:29)
[2021-06-12] MEDS ORDERED: NS 500 ML IV ONE (16:35)
--- NOTE | 2021-06-12 16:54 | REP ---
INDICATION: tachypnea. COMPARISON: 06/10/2021 TECHNIQUE: Portable FINDINGS: The technique utilized in obtaining the radiograph has magnified the cardiac silhouette and accentuated the interstitial markings. There is cardiomegaly accentuated by technique status quo. There is a dual chamber bipolar pacemaker device was is unchanged. Since the last examination a central venous catheter has been placed the tip of which appears to be in the superior vena cava, however, the exact tip of the catheter appears to be superimposed over an exterior equipment monitor phototypesetting lead. There is no significant change in appearance of the lung saavedra. There is chronic central pulmonary venous engorgement status quo. IMPRESSION: 1. Cardiomegaly and chronic lung field changes as described above without evidence of acute cardiopulmonary disease. 2. Central venous catheter as described above. Consider repeat radiograph with removal of the external equipment monitor phototypesetting lead. <Electronically signed by Francisco Sanders > 06/12/21 [id number]
--- NOTE | 2021-06-12 17:02 | ECGEPIP ---
[facility] Test Date: 2021-06-12 Pat Name: DONALD ARMANDO Department: Room: [place] [address] Gender: Female Intelligence Operations: shayy : 1945 Requested By: Judy Solis Order Number: [id number] Reading MD: Deng Aguilera Measurements Intervals [place] Rate: 101 P: GA: QRS: -88 QRSD: 158 T: 77 QT: 402 QTc: 521 Interpretive Statements Sinus tachycardia, P-synchronous Ventricular paced rhythm. Electronically Signed on 06-12-2021 17:02:03 EDT by Deng Aguilera
[2021-06-12 17:44] LABS: CALCIUM LEVEL 9.7 MG/DL (8.8-10.2); CK-MB VALUE MASS 1.9 NG/ML (<3.6); CREATININE FOR GFR 2.74 MG/DL (0.55-1.30); MAGNESIUM LEVEL 2.1 MG/DL (1.8-2.4); MB/CK RELATIVE INDEX 0.07 (< OR =4); TROPONIN I 0.19 NG/ML (< 0.10)
[2021-06-12] MEDS ORDERED: HEPARIN DRIP 25,000 UNITS in IV 1 EA IV SCH (18:30)
[2021-06-12] MEDS ORDERED: HEPARIN SOD (PORCINE) 5000UNITS/ML 1ML VIAL/SYRINGE IV PRN (18:30)
--- NOTE | 2021-06-12 19:21 | IPNPDOC ---
Date Seen The patient was seen on 06/12/21. Progress Note SUBJECTIVE: Patient is a 76-year-old female with acute on chronic hypoxemic respiratory failure, NOAH with CKD, COPD exacerbation despite acute on chronic hypoxemia, congestive heart failure. She is status post permacath placement after worsening kidney function and has received dialysis. After the procedure nurses have reported becoming hypoxic and tachypnea and increased/fluctuating heart rate. Satting only 90% on 4 L nasal cannula at 15 L at 50% on Ventimask. Stat CTA has not been ordered to rule out pulmonary embolism. Patient will be transferred to the PCU for further evaluation. Per patient, she was tired after the procedure and shortness of breath was related to length of time being flat on the table. After dialysis he says she felt better and could breathe better. She denies having chest pain at all today. Review of systems: Respiratory: Denies shortness of breath, wheezing Cardiac: Denies chest pain, tachycardia Gastrointestinal: Denies nausea, vomiting, diarrhea Genitourinary: Denies dysuria, hematuria Neurological: Denies headache, dizziness OBJECTIVE PHYSICAL EXAMINATION: VITAL SIGNS: Please see below. GENERAL: 76-year-old female, propped up in bed, on Ventimask and O2, in no acute distress HEENT: Head normocephalic/atraumatic CARDIOVASCULAR: Tachycardic rate normal rhythm. RESPIRATORY: Crackles appreciated on bases bilaterally. ABDOMINAL: Normoactive bowel sounds, tender to palpation in upper quadrants EXTREMITIES: No appreciable lower extremity swelling LABORATORY DATA, IMAGING STUDIES, MICROBIOLOGY: Please see below. DVT prophylaxis ordered?: Heparin ASSESSMENT AND PLAN: This is a 76-year-old female status post Permacat h placement for worsening kidney failure, hypoxemic respiratory failure, NOAH with CKD. Currently she has been tachypneic and hypoxic. Stat CTA to rule out pulmonary embolism until proven otherwise PROBLEMS: #Acute on chronic hypoxemic respiratory failure i/s/o Rhinovirus and and acute on chronic HFpEF, with suspected superimposed PNA. -supplemental O2, to goal >89 -Has become tachypneic and hypoxic this afternoon. With fluctuating heart rate. Is on 4 L nasal cannula and 15 L at 50% on Ventimask but CTAs that has been ordered to rule out pulmonary embolism. -Also placed on IV heparin drip -Cardio marker panel have also been ordered -continue home mdis -giving ceftriaxone for suspected PNA with sputum showing GPCs in pairs and chains -droplet precautions -s/p IV diuresis, will restore home diuretic dosing given now rising Cr, pending nephrology recommendations #Sepsis, 2/2 rhinovirus and possible CAP: Fever with leukocytosis and lactic acidosis -f/u UCx and BCx -continue ceftriaxone for potential CAP and f/u BCx and SCx -procalcitonin resulted and within normal limits -lactic acidosis resolved #Chronic anemia -Monitor her CBC closely and transfuse if necessary for goal Hgb >8. #NOAH on CKD, with GFR approaching 10 -consult nephrology despite her diuretic responsiveness given her CKD and GFR that is approaching dialysis need. -daily BMP today 3081 -Dr. Mcclellan was consulted on this patient. He has advised that we will watch her kidney function over the next 24 hours and if no improvement is seen then dialysis will be initiated. #Essential hypertension -Continue home meds #COPD w/o exacerbation despite acute on chronic hypoxemia i/s/o rhinovirus URI -c/w home meds/inhalers -O2 titrate to SPO2 88%-92% #Congestive heart failure: -Per Dr. Mcclellan volume status has improved. He will increase her Lasix dose to 80 twice daily pending echocardiogram report. #DM2 -Hold her home meds glipizide and Januvia. -FSBS ACHS -hypoglycemic protocol #History of secondary hyperparathyroidism -Has history of CKD. Continue home Calcitrol. #GERD -continue with home PPI #Obesity complicating medical care DVT ppx: - Will DC heparin SQ - Will start heparin infusion VS, I&O, 24H, Fishbone Vital Signs/I&O Vital Signs Date Time Temp Pulse Resp B/P (MAP) Pulse Ox O2 Delivery O2 Flow Rate FiO2 06/12/21 18:08 90 Venturi Mask 15.0 50 06/12/21 15:50 97.7 61 28 96/57 (70) I&O- Last 24 Hours up to 6 AM 06/12/21 06:00 Intake Total 1370 ml Output Total 1050 ml Balance 320 ml Laboratory Data 24H LABS Laboratory Tests 2 06/11/21 20:01: Bedside Glucose (Misc Panel) 143H 06/12/21 05:24: Immature Granulocyte % (Auto) 1.9, Neutrophils (%) (Auto) 75.9H, Lymphocytes (%) (Auto) 10.1L, Monocytes (%) (Auto) 12.0H, Eosinophils (%) (Auto) 0.0, Basophils (%) (Auto) 0.1, Neutrophils # (Auto) 6.3, Lymphocytes # (Auto) 0.8L, Monocytes # (Auto) 1.0H, Eosinophils # (Auto) 0.0, Basophils # (Auto) 0.0, Nucleated Red Blood Cells % (auto) 0.0 06/12/21 05:25: Anion Gap 11, Glomerular Filtration Rate 9.8L, Calcium Level 8.1L 06/12/21 15:47: Immature Granulocyte % (Auto) 2.8, Neutrophils (%) (Auto) 81.6H, Lymphocytes (%) (Auto) 7.4L, Monocytes (%) (Auto) 7.9, Eosinophils (%) (Auto) 0.0, Basophils (%) (Auto) 0.3, Neutrophils # (Auto) 8.2, Lymphocytes # (Auto) 0.8L, Monocytes # (Auto) 0.8, Eosinophils # (Auto) 0.0, Basophils # (Auto) 0.0, Nucleated Red Blood Cells % (auto) 0.0, Anion Gap 11, Glomerular Filtration Rate 18.0L, Calcium Level 9.7#, Lactic Acid Level 3.3*H, Magnesium Level 2.1, Total Creatine Kinase 2690H, Creatine Kinase MB 1.9, Creatine Kinase MB Relative Index 0.07, Troponin I 0.19H, TR-Vzl-L-Type Natriuretic Peptide 3995H 06/12/21 17:05: Bedside Glucose (Misc Panel) 133H CBC/BMP Laboratory Tests 06/12/21 05:24 06/12/21 05:25 06/12/21 15:47 Microbiology Microbiology 06/09/21 Gram Stain - Final, Complete 06/09/21 Sputum Culture - Final, Complete Streptococcus Pneumoniae 06/09/21 Blood Culture - Preliminary, Resulted No Growth after 72 hours. All specime... 06/09/21 Blood Culture - Preliminary, Resulted No Growth after 72 hours. All specime... 06/08/21 Respiratory Virus Panel (PCR) (NICOLE) - Final, Complete Human Rhinovirus/Enterovirus GME ATTESTATION GME ATTESTATION My faculty preceptor for this patient encounter was physically present during the encounter and was fully available. All aspects of the patient interview, examination, medical decision making process, and medical care plan development were reviewed and approved by the faculty preceptor. The faculty preceptor is aware and concurs with the plan as stated in the body of this note and will attest to such by his/her cosignature. ATTENDING NOTE I, Amy Giles, have independently examined this patient and performed my own physical exam, as well as reviewed the documentation and edited where necessary with the resident. For medical students we have performed the physical exam together and discussed medical decision making and I have verified the history. I have discussed in detail with the resident / student the findings and plan of treatment as documented by the resident / student and edited their note. I agree with their findings and treatment plan and have edited their documentation. I will continue to follow the patient during this hospital stay. Matt Rhodes DO Jun 12, 2021 19:21 AMY GILES MD Jun 12, 2021 20:09
[2021-06-12] MEDS ORDERED: ISOVUE-370 76% 100ML VIAL As Ordered ONE (19:54)
--- NOTE | 2021-06-12 21:01 | REPVR ---
PROCEDURE INFORMATION: Exam: CTA Chest With Contrast Exam date and time: 06/12/2021 8:45 PM Age: 76 years old Clinical indication: Other: Hypoxia TECHNIQUE: Imaging protocol: Computed tomographic angiography of the chest with contrast. 3D rendering (Not supervised by radiologist): MIP and/or 3D reconstructed images were created by the technologist. Radiation optimization: All CT scans at this facility use at least one of these dose optimization techniques: automated exposure control; mA and/or kV adjustment per patient size (includes targeted exams where dose is matched to clinical indication); or iterative reconstruction. Contrast material: ISOVUE 370; Contrast volume: 75 ml; Contrast route: INTRAVENOUS (IV); COMPARISON: CT Chest without contrast 06/09/2021 1:18 AM FINDINGS: Tubes, catheters and devices: Occlusion device in the left atrial appendage. Failure Pulmonary arteries: There is enlargement of the central pulmonary arteries, findings which can be associated with pulmonary arterial hypertension which should be correlated clinically. There are no pulmonary emboli. Aorta: There is fusiform dilatation of the supravalvular ascending thoracic aorta which measures 3.9 cm. maximally. There is no dissection or saccular component. Other arteries: There is mild atherosclerosis in the thoracic aorta. Lungs: Small peripheral reticular opacities in the superior segment of the left lower lobe, posterior segment of the right upper lobe. Findings likely chronic. Bibasilar parenchymal opacities with air bronchograms at the lung bases likely represent foci of atelectasis. Clinical correlation to exclude infection suggested. Well inflated lungs with flattened diaphragmatic contours and increased retrosternal airspace consistent with COPD. Pleural spaces: Unremarkable. No pneumothorax. No pleural effusion. Heart: There is mild atherosclerotic calcification of the coronary arteries. Lymph nodes: Unremarkable. No enlarged lymph nodes. Bones/joints: The spine demonstrates mild degenerative changes. Osteoporosis. Soft tissues: Subcutaneous air demonstrated adjacent to the right clavicle likely iatrogenic. IMPRESSION: 1. Bibasilar parenchymal opacities with air bronchograms at the lung bases likely represent foci of atelectasis. Clinical correlation to exclude infection suggested. 2. COPD. 3. There is fusiform dilatation of the supravalvular ascending thoracic aorta which measures 3.9 cm. maximally. There is no dissection or saccular component. 4. There is enlargement of the central pulmonary arteries, findings which can be associated with pulmonary arterial hypertension which should be correlated clinically. 5. There are no pulmonary emboli. Electronically signed by: Preston Jerez On 06/12/2021 21:01:01 PM
[2021-06-12 21:15] VITALS: BP 132/90
[2021-06-12 21:30] LABS: CK-MB VALUE MASS 1.5 NG/ML (<3.6); MB/CK RELATIVE INDEX 0.06 (< OR =4); TROPONIN I 0.17 NG/ML (< 0.10)
[2021-06-12] MEDS: VITAMIN D 1,000 INTERNATIONAL UNITS TABLET PO SCH (21:52)
[2021-06-12] MEDS: cefTRIAXone SOD 1 GM in D5W MINI-BAG PLUS 50 ML IV SCH (21:53)
[2021-06-12] MEDS ORDERED: LevoFLOXacin IV 750 MG in IV 1 EA IV ONE (22:00)
[2021-06-13] VITALS (8 sets, daily range): BP systolic 112–154; BP diastolic 57–74; O2SAT 88–97
[2021-06-13 02:45] LABS: CK-MB VALUE MASS 1.5 NG/ML (<3.6); MB/CK RELATIVE INDEX 0.07 (< OR =4); TROPONIN I 0.17 NG/ML (< 0.10)
[2021-06-13 06:38] LABS: BASO % 0.3 % (0.0-1.0); HEMATOCRIT 29.6 % (36.0-47.0); LYMPH # 0.6 10^3/uL (1.5-5.0); MEAN CORPUSCULAR HEMOGLOBIN 32.5 pg (27.0-33.0); MEAN CORPUSCULAR HGB CONC 31.1 g/dl (32.0-36.5); MEAN CORPUSCULAR VOLUME 104.6 fl (80.0-96.0); MONO # 0.8 10^3/uL (0.0-0.8); MONO % 10.8 % (2.0-8.0); NEUTROPHILS # 5.3 10^3/uL (1.5-8.5); NEUTROPHILS % 76.6 % (36.0-66.0); PLATELET COUNT, AUTOMATED 151 10^3/uL (150-450); RED BLOOD COUNT 2.83 10^6/uL (4.00-5.40); WHITE BLOOD COUNT 6.9 10^3/uL (4.0-10.0)
[2021-06-13 06:44] LABS: HEMOGLOBIN 9.2 g/dl (12.0-15.5)
[2021-06-13 06:48] LABS: CALCIUM LEVEL 7.9 MG/DL (8.8-10.2); CREATININE FOR GFR 3.73 MG/DL (0.55-1.30); GLOMERULAR FILTRATION RATE 12.6 (>39); POTASSIUM SERUM 4.1 MEQ/L (3.5-5.1)
[2021-06-13] MEDS: ADVAIR HFA 230/21MCG INHALER INH SCH ×2 (07:48→20:00)
[2021-06-13] MEDS: HumaLOG INSULIN (NovoLOG) PER UNIT SC SCH ×4 (08:00→21:02)
[2021-06-13] MEDS ORDERED: REMDESIVIR 200 MG in NS 250 ML IV ONE ×2 (10:50→15:00)
[2021-06-13] MEDS: FOLIC ACID 1 MG TAB PO SCH (10:58)
[2021-06-13] MEDS: FUROSEMIDE 80 MG TAB PO SCH ×2 (10:58→17:45)
[2021-06-13] MEDS: AMIODARONE 200 MG TAB (PACERONE) PO SCH (10:59)
[2021-06-13] MEDS: CALCITRIOL 0.25 MCG CAP (S0169) PO SCH (10:59)
[2021-06-13] MEDS: PANTOPRAZOLE 40MG TAB (PROTONIX) PO SCH (10:59)
[2021-06-13] MEDS: allopurinoL 100 MG TAB PO SCH (10:59)
[2021-06-13] MEDS: FERROUS SULFATE 325MG TAB PO SCH ×2 (10:59→21:02)
[2021-06-13] MEDS: ATORVASTATIN 20 MG TAB PO SCH (10:59)
[2021-06-13 11:58] LABS: BASO % 0.2 % (0.0-1.0); HEMATOCRIT 29.7 % (36.0-47.0); HEMOGLOBIN 9.2 g/dl (12.0-15.5); LYMPH # 0.7 10^3/uL (1.5-5.0); LYMPH % 8.9 % (24.0-44.0); MEAN CORPUSCULAR HEMOGLOBIN 32.2 pg (27.0-33.0); MEAN CORPUSCULAR VOLUME 103.8 fl (80.0-96.0); MONO # 0.8 10^3/uL (0.0-0.8); MONO % 9.7 % (2.0-8.0); NEUTROPHILS # 6.4 10^3/uL (1.5-8.5); NEUTROPHILS % 77.3 % (36.0-66.0); PLATELET COUNT, AUTOMATED 154 10^3/uL (150-450); RED BLOOD COUNT 2.86 10^6/uL (4.00-5.40); WHITE BLOOD COUNT 8.2 10^3/uL (4.0-10.0)
[2021-06-13 12:12] LABS: INR 1.07; PROTHROMBIN TIME 14.3 SECONDS (12.7-14.5)
[2021-06-13 12:13] LABS: PARTIAL THROMBOPLASTIN TIME 34.3 SECONDS (25.9-37.0)
[2021-06-13 12:15] LABS: D-DIMER QUANT 2648.48 ng/ml (<500)
[2021-06-13] MEDS ORDERED: SODIUM CHLORIDE 0.9% INJ 10 ML SYR IV ONE (12:50)
[2021-06-13 13:26] LABS: ALBUMIN 2.3 GM/DL (3.2-5.2); ALT/SGPT 27 U/L (12-78); BILIRUBIN,DIRECT < 0.1 MG/DL (0.0-0.2); BILIRUBIN,TOTAL 0.2 MG/DL (0.2-1.0); BLOOD UREA NITROGEN 59 MG/DL (7-18); C REACTIVE PROTEIN QUANTITATIV 4.07 MG/DL (0.00-0.30); CALCIUM LEVEL 8.1 MG/DL (8.8-10.2); CARBON DIOXIDE LEVEL 26 MEQ/L (21-32); CHLORIDE LEVEL 99 MEQ/L (98-107); CPK CREATINE PHOSPHOKINASE 1809 U/L (26-192); CREATININE FOR GFR 4.18 MG/DL (0.55-1.30); FERRITIN 2843 NG/ML (8-252); GLOMERULAR FILTRATION RATE 11.1 (>39); GLUCOSE, FASTING 119 MG/DL (70-100); LDH LACTATE DEHYDROGENASE 346 U/L (84-246); MAGNESIUM LEVEL 2.2 MG/DL (1.8-2.4); NT-PRO BNP 2393 PG/ML (<125); POTASSIUM SERUM 4.2 MEQ/L (3.5-5.1); SODIUM LEVEL 135 MEQ/L (136-145); TOTAL PROTEIN 5.9 GM/DL (6.4-8.2); TROPONIN I 0.14 NG/ML (< 0.10)
--- NOTE | 2021-06-13 14:14 | ECGEPIP ---
[facility] Test Date: 2021-06-13 Pat Name: DONALD ARMANDO Department: Room: [place] [address] Gender: Female Business Test Analyst: PEEWEE : 1945 Requested By: Judy Solis Order Number: [id number] Reading MD: Deng Aguilera Measurements Intervals [place] Rate: 90 P: -8 [place]: 138 QRS: -87 QRSD: 156 T: 84 QT: 428 QTc: 523 Interpretive Statements AV-sequential Biventricular paced rhythm Electronically Signed on 06-13-2021 14:14:06 EDT by Deng Aguilera
[2021-06-13] MEDS: HEPARIN SOD (PORCINE) 5000UNITS/ML 1ML VIAL/SYRINGE SQ SCH ×2 (14:19→21:03)
[2021-06-13] MEDS: ACETAMINOPHEN TAB 650MG DOSE (2X325MG) PO PRN (14:21)
[2021-06-13] MEDS: dexameTHASONE 4 MG/ML 1ML VIAL (J1100 PER 1MG) IV SCH (14:25)
--- NOTE | 2021-06-13 19:10 | IPNPDOC ---
Date Seen The patient was seen on 06/13/21. Progress Note SUBJECTIVE: Patient is a 76-year-old female with Patient is a 76-year-old female with acute on chronic hypoxemic respiratory failure, NOAH with CKD, COPD exacerbation despite acute on chronic hypoxemia, congestive heart failure. She had permacath placed yesterday for dialysis. She is also been placed on Covid isolation due to recently testing positive. She denies chest pain, shortness of breath, abdominal pain, nausea, vomiting, diarrhea, headache, dizziness. Does report breathing better than yesterday. She does report that pains in her leg, back, hip kept her awake overnight but these are no new issues per patient OBJECTIVE PHYSICAL EXAMINATION: VITAL SIGNS: Please see below. GENERAL: 76-year-old female, sitting in chair, no acute distress HEENT: Normocephalic atraumatic CARDIOVASCULAR: Regular rate and rhythm (limited due to single-use stethoscope being poor quality). RESPIRATORY: Crackles appreciated at bases (limited due to single-use stethos cope being poor quality). EXTREMITIES: No edema noted in the lower extremities LABORATORY DATA, IMAGING STUDIES, MICROBIOLOGY: Please see below. DVT prophylaxis ordered?: Heparin infusion ASSESSMENT AND PLAN: This is a 76-year-old female with recent confirmed positive Covid test, status post Permacath placement for worsening kidney failure, hypoxemic respiratory failure, NOAH with CKD. PROBLEMS: #Acute on chronic hypoxemic respiratory failure - likely 2/2 multifactorial etiology; 2/2 COVID 19 / RSV / Superimposed bacterial PNA / Possibly fluid overload -supplemental O2, to goal >89 -Has been on high flow NC and Vapotherm -continue home mdis -giving ceftriaxone for suspected PNA with sputum showing GPCs in pairs and chains -droplet precautions -s/p IV diuresis, will restore home diuretic dosing given now rising Cr, pending nephrology recommendations #Covid Pneumonia -Placed in isolation on droplet and contact precautions -Has been started on remdesivir and Dexamethasone (Day #2) #Sepsis, 2/2 rhinovirus and possible CAP: Fever with leukocytosis and lactic acidosis -f/u UCx and BCx -continue ceftriaxone for potential CAP and f/u BCx and SCx -procalcitonin resulted and within normal limits -lactic acidosis resolved #Chronic anemia -Monitor her CBC closely and transfuse if necessary for goal Hgb >8. #NOAH on CKD, with GFR approaching 10 -consult nephrology despite her diuretic responsiveness given her CKD and GFR that is approaching dialysis need. -daily BMP today 3081 -Dr. Mcclellan was consulted on this patient. He has advised that we will watch her kidney function over the next 24 hours and if no improvement is seen then dialysis will be initiated. #Essential hypertension -Continue home meds #COPD w/o exacerbation despite acute on chronic hypoxemia i/s/o rhinovirus URI -c/w home meds/inhalers -O2 titrate to SPO2 88%-92% #Congestive heart failure: -Per Dr. Mcclellan volume status has improved. He will increase her Lasix dose to 80 twice daily pending echocardiogram report. #DM2 -Hold her home meds glipizide and Januvia. -FSBS ACHS -hypoglycemic protocol #History of secondary hyperparathyroidism -Has history of CKD. Continue home Calcitrol. #GERD -continue with home PPI #Obesity complicating medical care DVT ppx: - Will DC heparin SQ - Will start heparin infusion Vital Signs Date Time Temp Pulse Resp B/P (MAP) Pulse Ox O2 Delivery O2 Flow Rate FiO2 06/13/21 16:00 40.0 100 06/13/21 15:30 93 HVNI-Vapotherm 40.0 100 06/13/21 15:30 98.7 83 22 116/57 (76) 88 High Flow Cannula 10.0 06/13/21 12:00 99.7 82 22 154/74 (100) 89 High Flow Cannula 6.0 06/13/21 12:00 6.0 06/13/21 12:00 88 High Flow Cannula 6.0 06/13/21 08:00 98.7 75 23 148/64 (92) 90 High Flow Cannula 6.0 06/13/21 08:00 6.0 06/13/21 07:49 79 06/13/21 04:39 98.1 73 24 118/62 (80) 95 High Flow Cannula 10.0 06/13/21 04:00 10.0 06/13/21 00:00 99.1 93 22 112/68 (83) 93 High Flow Cannula 15.0 06/13/21 00:00 15.0 06/12/21 21:15 98.2 114 22 132/90 (104) 90 Nasal Cannula 6.0 06/12/21 21:00 15.0 Intake & Output 06/13/21 06:00 Intake Total 160 ml Output Total 2375 ml Balance -2215 ml Laboratory Tests 06/12/21 19:55: Activated Partial Thromboplast Time 107.6H, Total Creatine Kinase 2445H, Creatine Kinase MB 1.5, Creatine Kinase MB Relative Index 0.06, Troponin I 0.17H 06/12/21 21:22: Bedside Glucose (Misc Panel) 119H 06/12/21 22:02: Lactic Acid Level 1.3 06/13/21 01:50: Total Creatine Kinase 2037H, Creatine Kinase MB 1.5, Creatine Kinase MB Relative Index 0.07, Troponin I 0.17H 06/13/21 05:58: White Blood Count 6.9, Red Blood Count 2.83L, Hemoglobin 9.2#L, Hematocrit 29.6L, Mean Corpuscular Volume 104.6H, Mean Corpuscular Hemoglobin 32.5, Mean Corpuscular Hemoglobin Concent 31.1L, Red Cell Distribution Width 16.0H, Platelet Count 151, Immature Granulocyte % (Auto) 3.3H, Neutrophils (%) (Auto) 76.6H, Lymphocytes (%) (Auto) 9.0L, Monocytes (%) (Auto) 10.8H, Eosinophils (%) (Auto) 0.0, Basophils (%) (Auto) 0.3, Neutrophils # (Auto) 5.3, Lymphocytes # (Auto) 0.6L, Monocytes # (Auto) 0.8, Eosinophils # (Auto) 0.0, Basophils # (Auto) 0.0, Nucleated Red Blood Cells % (auto) 0.3H, Sodium Level 136, Potassium Level 4.1, Chloride Level 99, Carbon Dioxide Level 28, Anion Gap 9, Blood Urea Nitrogen 56H, Creatinine 3.73H, Glomerular Filtration Rate 12.6L, Fasting Glucose 91, Calcium Level 7.9#L 06/13/21 08:07: Bedside Glucose (Misc Panel) 85 06/13/21 08:25: Coronavirus (COVID-19)(PCR) POSITIVEA 06/13/21 11:03: Bedside Glucose (Misc Panel) 153H 06/13/21 11:29: White Blood Count 8.2, Red Blood Count 2.86L, Hemoglobin 9.2L, Hematocrit 29.7L, Mean Corpuscular Volume 103.8H, Mean Corpuscular Hemoglobin 32.2, Mean Corpuscular Hemoglobin Concent 31.0L, Red Cell Distribution Width 16.2H, Platelet Count 154, Immature Granulocyte % (Auto) 3.9H, Neutrophils (%) (Auto) 77.3H, Lymphocytes (%) (Auto) 8.9L, Monocytes (%) (Auto) 9.7H, Eosinophils (%) (Auto) 0.0, Basophils (%) (Auto) 0.2, Neutrophils # (Auto) 6.4, Lymphocytes # (Auto) 0.7L, Monocytes # (Auto) 0.8, Eosinophils # (Auto) 0.0, Basophils # (Auto) 0.0, Nucleated Red Blood Cells % (auto) 0.0, Prothrombin Time 14.3H, Prothromb Time International Ratio 1.07, Activated Partial Thromboplast Time 34.3, Fibrinogen 656H, D-Dimer, Quantitative 2648.48H, Sodium Level 135L, Potassium Level 4.2, Chloride Level 99, Carbon Dioxide Level 26, Anion Gap 10, Blood Urea Nitrogen 59H, Creatinine 4.18H, Glomerular Filtration Rate 11.1L, Fasting Glucose 119H, Calcium Level 8.1L, Magnesium Level 2.2, Ferritin 2843H, Total Bilirubin 0.2, Direct Bilirubin < 0.1, Aspartate Amino Transf (AST/SGOT) 97H, Alanine Aminotransferase (ALT/SGPT) 27, Alkaline Phosphatase 57, Lactate Dehydrogenase 346H, Total Creatine Kinase 1809H, Troponin I 0.14H, C-Reactive Protein, Quantitative 4.07H, PW-Sdt-B-Type Natriuretic Peptide 2393H, Total Protein 5.9L, Albumin 2.3L, Albumin/Globulin Ratio 0.6L, Procalcitonin 0.16 06/13/21 17:23: Bedside Glucose (Misc Panel) 97 Microbiology 06/13/21 Stool Occult Blood (NICOLE) - Final, Complete 06/09/21 Gram Stain - Final, Complete 06/09/21 Sputum Culture - Final, Complete Streptococcus Pneumoniae 06/08/21 Respiratory Virus Panel (PCR) (NICOLE) - Final, Complete Human Rhinovirus/Enterovirus VS, I&O, 24H, Fishbone Vital Signs/I&O Vital Signs Date Time Temp Pulse Resp B/P (MAP) Pulse Ox O2 Delivery O2 Flow Rate FiO2 06/13/21 16:00 40.0 100 06/13/21 15:30 93 HVNI-Vapotherm 06/13/21 15:30 98.7 83 22 116/57 (76) I&O- Last 24 Hours up to 6 AM 06/13/21 06:00 Intake Total 160 ml Output Total 2375 ml Balance -2215 ml Laboratory Data 24H LABS Laboratory Tests 2 06/12/21 19:55: Activated Partial Thromboplast Time 107.6H, Total Creatine Kinase 2445H, Creatine Kinase MB 1.5, Creatine Kinase MB Relative Index 0.06, Troponin I 0.17H 06/12/21 21:22: Bedside Glucose (Misc Panel) 119H 06/12/21 22:02: Lactic Acid Level 1.3 06/13/21 01:50: Total Creatine Kinase 2037H, Creatine Kinase MB 1.5, Creatine Kinase MB Relative Index 0.07, Troponin I 0.17H 06/13/21 05:58: Immature Granulocyte % (Auto) 3.3H, Neutrophils (%) (Auto) 76.6H, Lymphocytes (%) (Auto) 9.0L, Monocytes (%) (Auto) 10.8H, Eosinophils (%) (Auto) 0.0, Basophils (%) (Auto) 0.3, Neutrophils # (Auto) 5.3, Lymphocytes # (Auto) 0.6L, Monocytes # (Auto) 0.8, Eosinophils # (Auto) 0.0, Basophils # (Auto) 0.0, Nucleated Red Blood Cells % (auto) 0.3H, Anion Gap 9, Glomerular Filtration Rate 12.6L, Calcium Level 7.9#L 06/13/21 08:07: Bedside Glucose (Misc Panel) 85 06/13/21 08:25: Coronavirus (COVID-19)(PCR) POSITIVEA 06/13/21 11:03: Bedside Glucose (Misc Panel) 153H 06/13/21 11:29: Immature Granulocyte % (Auto) 3.9H, Neutrophils (%) (Auto) 77.3H, Lymphocytes (%) (Auto) 8.9L, Monocytes (%) (Auto) 9.7H, Eosinophils (%) (Auto) 0.0, Basophils (%) (Auto) 0.2, Neutrophils # (Auto) 6.4, Lymphocytes # (Auto) 0.7L, Monocytes # (Auto) 0.8, Eosinophils # (Auto) 0.0, Basophils # (Auto) 0.0, Nucle ated Red Blood Cells % (auto) 0.0, Prothrombin Time 14.3H, Prothromb Time International Ratio 1.07, Activated Partial Thromboplast Time 34.3, Fibrinogen 656H, D-Dimer, Quantitative 2648.48H, Anion Gap 10, Glomerular Filtration Rate 11.1L, Calcium Level 8.1L, Magnesium Level 2.2, Ferritin 2843H, Total Bilirubin 0.2, Direct Bilirubin < 0.1, Aspartate Amino Transf (AST/SGOT) 97H, Alanine Aminotransferase (ALT/SGPT) 27, Alkaline Phosphatase 57, Lactate Dehydrogenase 346H, Total Creatine Kinase 1809H, Troponin I 0.14H, C-Reactive Protein, Quantitative 4.07H, GI-Aij-O-Type Natriuretic Peptide 2393H, Total Protein 5.9L, Albumin 2.3L, Albumin/Globulin Ratio 0.6L, Procalcitonin 0.16 06/13/21 17:23: Bedside Glucose (Misc Panel) 97 CBC/BMP Laboratory Tests 06/13/21 05:58 06/13/21 11:29 Microbiology Microbiology 06/13/21 Stool Occult Blood (NICOLE) - Final, Complete 06/09/21 Gram Stain - Final, Complete 06/09/21 Sputum Culture - Final, Complete Streptococcus Pneumoniae 06/09/21 Blood Culture - Preliminary, Resulted No Growth after 72 hours. All specime... 06/09/21 Blood Culture - Preliminary, Resulted No Growth after 72 hours. All specime... 06/08/21 Respiratory Virus Panel (PCR) (NICOLE) - Final, Complete Human Rhinovirus/Enterovirus GME ATTESTATION GME ATTESTATION My faculty preceptor for this patient encounter was physically present during the encounter and was fully available. All aspects of the patient interview, examination, medical decision making process, and medical care plan development were reviewed and approved by the faculty preceptor. The faculty preceptor is aware and concurs with the plan as stated in the body of this note and will attest to such by his/her cosignature. ATTENDING NOTE I, Amy Giles, have independently examined this patient and performed my own physical exam, as well as reviewed the documentation and edited where necessary with the resident. For medical students we have performed the physical exam together and discussed medical decision making and I have verified the history. I have discussed in detail with the resident / student the findings and plan of treatment as documented by the resident / student and edited their note. I agree with their findings and treatment plan and have edited their documentation. I will continue to follow the patient during this hospital stay. Matt Rhodes DO Jun 13, 2021 19:10 AMY GILES MD Jun 14, 2021 12:57
[2021-06-13] MEDS: cefTRIAXone SOD 1 GM in D5W MINI-BAG PLUS 50 ML IV SCH (20:00)
[2021-06-13] MEDS: VITAMIN D 1,000 INTERNATIONAL UNITS TABLET PO SCH (21:02)
[2021-06-14] VITALS (27 sets, daily range): BP systolic 90–150; BP diastolic 52–89; O2SAT 96–97
[2021-06-14] MEDS ORDERED: LIDOCAINE 5% (LIDODERM) PATCH TD ONE (00:20)
[2021-06-14 04:58] LABS: HEMATOCRIT 30.3 % (36.0-47.0); HEMOGLOBIN 9.5 g/dl (12.0-15.5); MEAN CORPUSCULAR HGB CONC 31.4 g/dl (32.0-36.5); PLATELET COUNT, AUTOMATED 156 10^3/uL (150-450); RED BLOOD COUNT 2.97 10^6/uL (4.00-5.40); WHITE BLOOD COUNT 6.5 10^3/uL (4.0-10.0)
[2021-06-14 05:04] LABS: INR 1.05; PROTHROMBIN TIME 14.1 SECONDS (12.7-14.5)
[2021-06-14 05:05] LABS: PARTIAL THROMBOPLASTIN TIME 39.2 SECONDS (25.9-37.0)
[2021-06-14 05:07] LABS: D-DIMER QUANT 2551.94 ng/ml (<500)
[2021-06-14 05:22] LABS: LYMPHOCYTES 7 % (16-44); MONOCYTES 1 % (0-5); NEUTROPHILS 84 % (28-66)
[2021-06-14 05:23] LABS: PLATELET ESTIMATE NORMAL (NORMAL)
[2021-06-14 05:37] LABS: ALBUMIN 2.4 GM/DL (3.2-5.2); ALT/SGPT 28 U/L (12-78); BILIRUBIN,DIRECT < 0.1 MG/DL (0.0-0.2); BILIRUBIN,TOTAL 0.2 MG/DL (0.2-1.0); BLOOD UREA NITROGEN 72 MG/DL (7-18); C REACTIVE PROTEIN QUANTITATIV 3.47 MG/DL (0.00-0.30); CALCIUM LEVEL 8.1 MG/DL (8.8-10.2); CARBON DIOXIDE LEVEL 26 MEQ/L (21-32); CHLORIDE LEVEL 100 MEQ/L (98-107); CPK CREATINE PHOSPHOKINASE 1293 U/L (26-192); CREATININE FOR GFR 5.51 MG/DL (0.55-1.30); FERRITIN 2627 NG/ML (8-252); GLOMERULAR FILTRATION RATE 8.1 (>39); GLUCOSE, FASTING 119 MG/DL (70-100); LDH LACTATE DEHYDROGENASE 360 U/L (84-246); MAGNESIUM LEVEL 2.5 MG/DL (1.8-2.4); SODIUM LEVEL 136 MEQ/L (136-145); TROPONIN I 0.09 NG/ML (< 0.10)
[2021-06-14] MEDS: HumaLOG INSULIN (NovoLOG) PER UNIT SC SCH ×4 (06:51→20:33)
[2021-06-14] MEDS: HEPARIN SOD (PORCINE) 5000UNITS/ML 1ML VIAL/SYRINGE SQ SCH ×3 (06:51→20:33)
[2021-06-14] MEDS: FOLIC ACID 1 MG TAB PO SCH (06:55)
[2021-06-14] MEDS: FERROUS SULFATE 325MG TAB PO SCH ×2 (06:55→20:32)
[2021-06-14] MEDS: ATORVASTATIN 20 MG TAB PO SCH (06:56)
[2021-06-14] MEDS: FUROSEMIDE 80 MG TAB PO SCH ×2 (06:56→16:20)
[2021-06-14] MEDS: CALCITRIOL 0.25 MCG CAP (S0169) PO SCH (06:57)
[2021-06-14] MEDS: AMIODARONE 200 MG TAB (PACERONE) PO SCH (06:57)
[2021-06-14] MEDS: dexameTHASONE 4 MG/ML 1ML VIAL (J1100 PER 1MG) IV SCH (06:58)
[2021-06-14] MEDS: PANTOPRAZOLE 40MG TAB (PROTONIX) PO SCH (06:58)
[2021-06-14] MEDS: allopurinoL 100 MG TAB PO SCH (06:58)
[2021-06-14] MEDS: ADVAIR HFA 230/21MCG INHALER INH SCH ×2 (08:41→19:41)
[2021-06-14] MEDS ORDERED: REMDESIVIR 100 MG in NS 250 ML IV SCH (10:50)
--- NOTE | 2021-06-14 12:03 | IPN ---
NEPHROLOGY PROGRESS NOTE DATE: 06/14/2021 SUBJECTIVE: Mrs. Montanez is seen this morning in the intensive care unit. Yesterday, I made several phone calls coordinating her care, as patient needed dialysis. However, she has tested positive for COVID and needed an isolation room for dialysis, which was not available. In any event, she has now been transferred to the intensive care unit and is being dialyzed this morning on her bedside. She has been on Vapotherm with 75% FiO2 and 20 liters of oxygen per minute. She also has developed acute renal failure superimposed on chronic kidney disease requiring dialysis. She was dialyzed three days ago; however, she had difficulty breathing during and after dialysis, which did get worse. Following that, she had a CT angiogram done to rule out pulmonary embolism. Her pulmonary embolism was ruled out and then she tested positive for COVID. It is important that she did test negative on admission for COVID. In any event, she remains oliguric and is being dialyzed this morning. PHYSICAL EXAMINATION: VITAL SIGNS: Temperature 98.4 degrees Fahrenheit, heart rate 94 per minute, respiratory rate 20 per minute, blood pressure 99/55 mmHg, oxygen saturation 97% on high-flow oxygen with Vapotherm. HEAD: Atraumatic. NECK: Supple and jugular venous distention (JVD) difficult to be assessed. HEART SOUNDS: Regular. LUNGS: Diminished breath sounds and bilateral rhonchi. ABDOMEN: Soft and nontender. Bowel sounds are normal. EXTREMITIES: Without any cyanosis or clubbing. LABORATORY DATA: Today's labs show sodium 136, potassium 5.0, CO2 26, BUN 72, creatinine 5.51, glucose 119, calcium 8.1. LDH was 360 this morning. CPK 1293. C-reactive protein is 0. 09. Total protein 6.0 and albumin 2.4. PROBLEMS: 1. Acute renal failure superimposed on chronic kidney disease. Patient will be considered end-stage renal disease for all practical purposes, as her baseline renal failure is pretty advanced and she is not likely to recover any kidney function. She is being dialyzed today and she is tolerating dialysis better compared to her first treatment. 2. Congestive heart failure. Volume status is slightly decompensated. Her hypoxemia is significantly worse related to COVID pneumonia. We are trying to remove about 2 liters of fluid and it remains to be seen how much she tolerates. So far, she is doing well. 3. Anemia. Her anemia is stable and does not need any urgent intervention. 4. COVID pneumonia. Patient is being treated with Remdesivir and dexamethasone. We hope that she will improve, as she is currently hemodynamically stable and feeling slightly better.
--- NOTE | 2021-06-14 12:18 | IPN ---
NEPHROLOGY PROGRESS NOTE DATE: 06/14/2021 SUBJECTIVE: Ms. Montanez is seen this morning in the Intensive Care Unit. Yesterday I made several phone calls coordinating her care as patient needed dialysis; however, she has tested positive for COVID and needed an isolation room for dialysis which was not available. In any event she has been on transfer to the Intensive Care Unit and being dialyzed this morning on her bedside. She has been on Vapotherm with 75% FiO2 and 20 liters of oxygen per minute. She also has developed acute renal failure superimposed on chronic kidney disease requiring dialysis. She was dialyzed 3 days ago; however, she had difficulty breathing during and after dialysis which did get worse. Following that she had a CT audiogram done to rule out pulmonary embolism. Pulmonary embolism was ruled out and then she tested positive for COVID. It is important that she did test negative on admission for COVID. In any event she remains oliguric and is being dialyzed this morning. PHYSICAL EXAMINATION: Temperature 98.4 degrees Fahrenheit, heart rate 94 per minute and respiratory rate 20 per minute. Blood pressure 99/55 mmHg and oxygen saturation 97% on high flow oxygen with Vapotherm. Head: Atraumatic. Neck: Supple and JVD difficult to be assessed. Heart: Sounds are regular. Lungs: With diminished breath sounds and bilateral rhonchi. Abdomen: Soft and nontender and bowel sounds are normal. Extremities: Without any cyanosis or clubbing. LABORATORY DATA: Today's labs show: Sodium 136, potassium 5, CO2 26, BUN 72, creatinine 5.51, glucose 190, calcium 8.1. LDH 360 this morning and CPK 1293. C-reactive protein is 0.09. Total protein 6 and albumin 2.4. PROBLEMS/PLAN: 1. Acute renal failure superimposed on chronic kidney disease: Patient will be considered end-stage renal disease for all practical purposes as her baseline renal failure is pretty advanced and she is not likely to recover any kidney function. She is being dialyzed today and she is tolerating dialysis better compared to her first treatment. 2. Congestive heart failure: Volume status is slightly decompensated. Her hypoxemia is significantly worse related to COVID pneumonia. We are trying to remove about 2 liters of fluid and it remains to be seen how much she tolerates. So far she is doing well. 3. Anemia: Her anemia is stable and does not need any urgent intervention. 4. COVID pneumonia: Patient is being treated with remdesivir and dexamethasone. We hope that she will improve as she is currently hemodynamically stable and feeling slightly better.
[2021-06-14] MEDS ORDERED: **NOTE PATIENT COMMENT** MISC XX ONE (12:20)
[2021-06-14] MEDS: ACETAMINOPHEN TAB 650MG DOSE (2X325MG) PO PRN (12:52)
--- NOTE | 2021-06-14 14:32 | IPNPDOC ---
Date Seen The patient was seen on 06/14/21. Progress Note SUBJECTIVE: Patient is a 76-year-old female with acute on chronic hypoxemic respiratory failure likely 2/2 to multifactorial etiology, Covid pneumonia, sepsis likely 2/2 to rhinovirus and possible CAP, chronic anemia, NOAH on CKD with a GFR protein 10, essential hypertension, COPD without exacerbation despite acute on chronic hypoxemia, CHF, DM 2, 2/2 hyperparathyroidism, GERD. She was transferred to [facility] ICU for further evaluation and management. He is doing well today and breathing better. She does report suprapubic tenderness which she relates related to catheter insertion. Patient has been moved to the ICU today so that she can receive dialysis given that she is on Vapotherm and aerosolizing. OBJECTIVE PHYSICAL EXAMINATION: VITAL SIGNS: Please see below. GENERAL: 76-year-old female, lying in bed in the ICU, on Vapotherm mask, in no acute distress HEENT: Normocephalic atraumatic CARDIOVASCULAR: Regular rate and rhythm (difficult to hear due to poor quality with stethoscope and ambient noise in the room). RESPIRATORY: Slight crackles appreciated at the bases (again poor quality at the stethoscope limited while he could hear). ABDOMINAL: Normoactive bowel sounds, tender to palpation in the suprapubic area likely due to catheter insertion EXTREMITIES: No edema noted in the lower extremities NEUROLOGICAL: No focal deficits appreciated LABORATORY DATA, IMAGING STUDIES, MICROBIOLOGY: Please see below. DVT prophylaxis ordered?: - Heparin SQ ASSESSMENT AND PLAN: This is a 76-year-old female with Covid pneumonia with a confirmed diagnosis yesterday, status post permacath placement due to worsening kidney failure, hypoxemic respiratory failure, NOAH with CKD. PROBLEMS: #Acute on chronic hypoxemic respiratory failure - likely 2/2 multifactorial etiology; 2/2 COVID 19 / RSV / Superimposed bacterial PNA / Possibly fluid overload -supplemental O2, to goal >89 -Has been on high flow NC and Vapotherm -continue home mdis -giving ceftriaxone for suspected PNA with sputum showing GPCs in pairs and chains -droplet precautions -s/p IV diuresis, will restore home diuretic dosing given now rising Cr, pending nephrology recommendations #COVID19 Pneumonia -Placed in isolation on droplet and contact precautions -Has been started on remdesivir and Dexamethasone (Day #2) #Sepsis, 2/2 rhinovirus and possible CAP: Fever with leukocytosis and lactic acidosis -f/u UCx and BCx -continue ceftriaxone for potential CAP and f/u BCx and SCx -procalcitonin resulted and within normal limits -lactic acidosis resolved #Chronic anemia -Monitor her CBC closely and transfuse if necessary for goal Hgb >8. #ESRD - Has received first HD on 06/12 -consult nephrology despite her diuretic responsiveness given her CKD and GFR that is approaching dialysis need. -daily BMP today 3081 - Will be dialyzed today in the ICU -Dr. Mcclellan saw the patient again today #Essential hypertension -Continue home meds #COPD w/o exacerbation despite acute on chronic hypoxemia i/s/o rhinovirus URI -c/w home meds/inhalers -O2 titrate to SPO2 88%-92% #Congestive heart failure: -Per Dr. Mcclellan Volume status is slightly decompensated. Her hypoxemia is significantly worse related to COVID pneumonia. We are trying to remove about 2 liters of fluid and it remains to be seen how much she tolerates. #DM2 -Hold her home meds glipizide and Januvia. -FSBS ACHS -hypoglycemic protocol #History of secondary hyperparathyroidism -Has history of CKD. Continue home Calcitrol. #GERD -continue with home PPI #Obesity complicating medical care DVT ppx: - c/w heparin SQ VS, I&O, 24H, Fishbone Vital Signs/I&O Vital Signs Date Time Temp Pulse Resp B/P (MAP) Pulse Ox O2 Delivery O2 Flow Rate FiO2 06/14/21 12:00 20.0 75 06/14/21 11:00 69 99/55 (70) 97 HVNI-Vapotherm 06/14/21 08:01 98.4 24 I&O- Last 24 Hours up to 6 AM 06/14/21 05:59 Intake Total 955 ml Output Total 1435 ml Balance -480 ml Laboratory Data 24H LABS Laboratory Tests 2 06/13/21 17:23: Bedside Glucose (Misc Panel) 97 06/13/21 21:02: Bedside Glucose (Misc Panel) 301H 06/14/21 04:34: Immature Granulocyte % (Auto) , Neutrophils (%) (Auto) , Nucleated Red Blood Cells % (auto) 0.0, Neutrophils 84H, Band Neutrophils 8, Lymphocytes (Manual) 7L, Monocytes (Manual) 1, Red Blood Cell Morphology NORMAL, Platelet Estimate NORMAL, Prothrombin Time 14.1H, Prothromb Time International Ratio 1.05, Activated Partial Thromboplast Time 39.2H, Fibrinogen 671H, D-Dimer, Quantitative 2551.94H, Anion Gap 10, Glomerular Filtration Rate 8.1L, Calcium Level 8.1L, Magnesium Level 2.5H, Ferritin 2627H, Total Bilirubin 0.2, Direct Bilirubin < 0.1, Aspartate Amino Transf (AST/SGOT) 85H, Alanine Aminotransferase (ALT/SGPT) 28, Alkaline Phosphatase 63, Lactate Dehydrogenase 360H, Total Creatine Kinase 1293H, Troponin I 0.09#, C-Reactive Protein, Quantitative 3.47H, Total Protein 6.0L, Albumin 2.4L, Albumin/Globulin Ratio 0.7L 06/14/21 12:01: Bedside Glucose (Misc Panel) 103 06/14/21 12:55: Urine Color REINA, Urine Appearance CLOUDYH, Urine pH 5.0, Urine Specific [place] 1.027, Urine Protein 2+H, Urine Glucose (UA) NEGATIVE, Urine Ketones NEGATIVE, Urine Blood 3+H, Urine Nitrite NEGATIVE, Urine Bilirubin NEGATIVE, Urine Urobilinogen 0.2, Urine Leukocyte Esterase 2+H, Urine WBC (Auto) 5H, Urine RBC (Auto) TNTCH, Urine Hyaline Casts (Auto) 0, Urine Bacteria (Auto) NEGATIVE, Urine Squamous Epithelial Cells 1, Urine Amorphous Sediment SMALLH, Urine Sperm (Auto) CBC/BMP Laboratory Tests 06/14/21 04:34 Microbiology Microbiology 06/14/21 Urine Culture, Received Pending 06/13/21 Stool Occult Blood (NICOLE) - Final, Complete 06/09/21 Gram Stain - Final, Complete 06/09/21 Sputum Culture - Final, Complete Streptococcus Pneumoniae 06/09/21 Blood Culture - Final, Complete NO GROWTH AFTER 5 DAYS 06/09/21 Blood Culture - Final, Complete NO GROWTH AFTER 5 DAYS 06/08/21 Respiratory Virus Panel (PCR) (NICOLE) - Final, Complete Human Rhinovirus/Enterovirus GME ATTESTATION GME ATTESTATION My faculty preceptor for this patient encounter was physically present during the encounter and was fully available. All aspects of the patient interview, examination, medical decision making process, and medical care plan development were reviewed and approved by the faculty preceptor. The faculty preceptor is aware and concurs with the plan as stated in the body of this note and will attest to such by his/her cosignature. ATTENDING NOTE I, Amy Giles, have independently examined this patient and performed my own physical exam, as well as reviewed the documentation and edited where necessary with the resident. For medical students we have performed the physical exam together and discussed medical decision making and I have verified the history. I have discussed in detail with the resident / student the findings and plan of treatment as documented by the resident / student and edited their note. I agree with their findings and treatment plan and have edited their documentation. I will continue to follow the patient during this hospital stay. Matt Rhodes DO Jun 14, 2021 14:32 AMY GILES MD Jun 14, 2021 15:16
[2021-06-14] MEDS: SODIUM CHLORIDE 0.9% INJ 10 ML SYR IV SCH (14:48)
[2021-06-14] MEDS: REMDESIVIR 100 MG in NS 250 ML IV SCH (14:48)
[2021-06-14] MEDS: cefTRIAXone SOD 1 GM in D5W MINI-BAG PLUS 50 ML IV SCH (19:45)
[2021-06-14] MEDS: VITAMIN D 1,000 INTERNATIONAL UNITS TABLET PO SCH (20:33)
[2021-06-14] MEDS ORDERED: LevoFLOXacin IV 500 MG in IV 1 EA IV SCH (22:00)
[2021-06-15] VITALS (8 sets, daily range): BP systolic 98–126; BP diastolic 54–65
[2021-06-15] MEDS: ACETAMINOPHEN TAB 650MG DOSE (2X325MG) PO PRN ×3 (01:45→22:22)
[2021-06-15] MEDS: HEPARIN SOD (PORCINE) 5000UNITS/ML 1ML VIAL/SYRINGE SQ SCH ×3 (05:24→21:13)
[2021-06-15 05:30] LABS: HEMATOCRIT 28.1 % (36.0-47.0); HEMOGLOBIN 8.9 g/dl (12.0-15.5); MEAN CORPUSCULAR HEMOGLOBIN 32.6 pg (27.0-33.0); MEAN CORPUSCULAR HGB CONC 31.7 g/dl (32.0-36.5); MEAN CORPUSCULAR VOLUME 102.9 fl (80.0-96.0); PLATELET COUNT, AUTOMATED 180 10^3/uL (150-450); RED BLOOD COUNT 2.73 10^6/uL (4.00-5.40); WHITE BLOOD COUNT 7.1 10^3/uL (4.0-10.0)
[2021-06-15 05:48] LABS: INR 1.17; PROTHROMBIN TIME 15.4 SECONDS (12.7-14.5)
[2021-06-15 05:49] LABS: PARTIAL THROMBOPLASTIN TIME 38.3 SECONDS (25.9-37.0)
[2021-06-15 06:06] LABS: ALBUMIN 2.3 GM/DL (3.2-5.2); ALT/SGPT 27 U/L (12-78); BILIRUBIN,DIRECT < 0.1 MG/DL (0.0-0.2); BILIRUBIN,TOTAL 0.2 MG/DL (0.2-1.0); BLOOD UREA NITROGEN 50 MG/DL (7-18); CALCIUM LEVEL 8.1 MG/DL (8.8-10.2); CARBON DIOXIDE LEVEL 25 MEQ/L (21-32); CHLORIDE LEVEL 102 MEQ/L (98-107); CPK CREATINE PHOSPHOKINASE 529 U/L (26-192); CREATININE FOR GFR 4.67 MG/DL (0.55-1.30); FERRITIN 2241 NG/ML (8-252); GLOMERULAR FILTRATION RATE 9.7 (>39); GLUCOSE, FASTING 159 MG/DL (70-100); LDH LACTATE DEHYDROGENASE 346 U/L (84-246); MAGNESIUM LEVEL 2.3 MG/DL (1.8-2.4); NT-PRO BNP 3982 PG/ML (<125); POTASSIUM SERUM 4.3 MEQ/L (3.5-5.1); SODIUM LEVEL 136 MEQ/L (136-145); TOTAL PROTEIN 6.4 GM/DL (6.4-8.2); TROPONIN I 0.08 NG/ML (< 0.10)
[2021-06-15 06:44] LABS: ANISOCYTOSIS 1+; LYMPHOCYTES 4 % (16-44); METAMYELOCYTES 2 % (0-0); MONOCYTES 4 % (0-5); MYELOCYTES 3 % (0-0); NEUTROPHILS 84 % (28-66); PLATELET ESTIMATE NORMAL (NORMAL)
[2021-06-15] MEDS: dexameTHASONE 4 MG/ML 1ML VIAL (J1100 PER 1MG) IV SCH (07:51)
[2021-06-15] MEDS: FOLIC ACID 1 MG TAB PO SCH (07:51)
[2021-06-15] MEDS: HumaLOG INSULIN (NovoLOG) PER UNIT SC SCH ×4 (07:51→20:21)
[2021-06-15] MEDS: PANTOPRAZOLE 40MG TAB (PROTONIX) PO SCH (07:51)
[2021-06-15] MEDS: FUROSEMIDE 80 MG TAB PO SCH ×2 (07:51→17:26)
[2021-06-15] MEDS: AMIODARONE 200 MG TAB (PACERONE) PO SCH (07:52)
[2021-06-15] MEDS: allopurinoL 100 MG TAB PO SCH (07:52)
[2021-06-15] MEDS: FERROUS SULFATE 325MG TAB PO SCH ×2 (07:52→20:22)
[2021-06-15] MEDS: CALCITRIOL 0.25 MCG CAP (S0169) PO SCH (07:53)
[2021-06-15] MEDS: ATORVASTATIN 20 MG TAB PO SCH (07:53)
[2021-06-15] MEDS: ADVAIR HFA 230/21MCG INHALER INH SCH ×2 (08:14→20:16)
--- NOTE | 2021-06-15 12:15 | IPN ---
PROGRESS NOTE DATE: 06/15/2021 Ms. Montanez is seen in intensive care unit. She remains on VapoTherm oxygen supplementation with 20 liters oxygen and 60% FiO2. She is oxygenating much better now, up to 97%. She was dialyzed yesterday, and we removed 2 liters of fluid. She has been in acute renal failure superimposed on chronic kidney disease, and her urine output is minimal. She has been quite hypoxic due to COVID pneumonia in addition to congestive heart failure. PHYSICAL EXAMINATION: Temperature 98.6 degrees Fahrenheit, heart rate 82 per minute, respiratory rate 20 per minute, oxygen saturation is 92%. She is current on VapoTherm, 20 liter oxygen, 60% FiO2. Today's labs show WBC count 7.1, hemoglobin 8.9, and hematocrit 28.1. Platelets 180. Sodium 136, potassium 4.3, chloride 102, CO2 of 25, BUN 50, and creatinine 4.67. Glucose 159 and calcium 8.1. Ferritin is 2241. Her total CPK is down to 529, and LDH is 346. BNP level 3982. PROBLEMS: 1. Congestive heart failure. Volume status somewhat improved with dialysis and fluid removal yesterday. We plan for the removal of fluid with dialysis tomorrow. Today she looks comfortable, so I am holding off on dialysis today. 2. Acute renal failure superimposed on chronic kidney disease. Patient has advanced chronic kidney disease at baseline. She is now end-stage renal disease and likely to remain dialysis dependent. She will be dialyzed tomorrow. 3. Anemia. Her anemia has been stable and does not need any urgent intervention. 4. COVID pneumonia. Patient remains on remdesivir and dexamethasone.
[2021-06-15] MEDS: REMDESIVIR 100 MG in NS 250 ML IV SCH (14:08)
[2021-06-15] MEDS: SODIUM CHLORIDE 0.9% INJ 10 ML SYR IV SCH (14:08)
--- NOTE | 2021-06-15 14:27 | IPNPDOC ---
Date Seen The patient was seen on 06/15/21. Progress Note SUBJECTIVE: Patient is a 76-year-old female with Covid and acute on chronic hypoxemic respiratory failure likely secondary to multifactorial etiology, sepsis likely secondary to rhinovirus and possibly CAP, chronic anemia, NOAH and now ESRD, essential hypertension, COPD without exacerbation despite acute on chronic hypoxemia, CHF, DM 2, 2/2 hyperparathyroidism, GERD. She was seen in the Covid ICU. She reports she is breathing better although apparently she had some trouble overnight and the settings of her Vapotherm was increased. She is complaining of restless painful legs and the inability to keep them still (she says this has been going on since open heart surgery). Review of systems: Cardiac: Denies chest pain, tachycardia Respiratory: Denies shortness of breath, difficulty breathing Gastrointestinal: Denies nausea, vomiting; reports loose stools suprapubic pain/discomfort Genitourinary: Denies dysuria, hematuria OBJECTIVE PHYSICAL EXAMINATION: VITAL SIGNS: Please see below. GENERAL: 36-year-old female, resting in bed, and occasional mild respiratory distress, in the ICU HEENT: Normocephalic atraumatic CARDIOVASCULAR: Regular rhythm (limited due to ambient noise in room and poor quality of the stethoscope). RESPIRATORY: Slight crackles appreciated at the lung bases (again limited due to poor quality of stethoscope). ABDOMINAL: Normoactive bowel sounds, nontender to palpation, nondistended EXTREMITIES: No lower extremity edema NEUROLOGICAL: No focal neurologic deficits appreciated LABORATORY DATA, IMAGING STUDIES, MICROBIOLOGY: Please see below. Imaging: CXR 06/08: CHF pattern with mild bibasilar platelike atelectasis. Cardiomegaly and vascular congestion. No pleural effusion or pulmonary edema seen. CT abdomen / pelvis 06/09: 1. Significantly limited study demonstrating no acute process or explanation for fever. 2. Colonic diverticulosis without active inflammation CT chest 06/09: Possible focal inflammatory or infectious focus in the left upper lobe measuring 15 mm Probable mild pulmonary fibrosis and dependent atelectasis CXR 06/10: Cardiomegaly with pacemaker. Platelike atelectasis persists left base. Cephalization. ECHO 06/10: 1. This study is of poor technical quality. Underlying sinus rhythm with wide QRS complex. 2. Normal left ventricle (LV) size with grossly preserved left ventricular (LV) systolic function based on limited views. I certainly cannot rule out segmental wall motion abnormality with any degree of certainty. Most likely grade 1 diasto lic dysfunction. 3. Trivial aortic stenosis. 4. Trivial mitral stenosis. 5. Unable to estimate central venous pressure but at least mild pulmonary hypertension. CXR 06/12: 1. Cardiomegaly and chronic lung field changes as described above without evidence of acute cardiopulmonary disease. 2. Central venous catheter as described above. Consider repeat radiograph with removal of the external site monitor lead. CTA Chest 06/12: 1. Bibasilar parenchymal opacities with air bronchograms at the lung bases likely represent foci of atelectasis. Clinical correlation to exclude infection suggested. 2. COPD. 3. There is fusiform dilatation of the supravalvular ascending thoracic aorta which measures 3.9 cm. maximally. There is no dissection or saccular component. 4. There is enlargement of the central pulmonary arteries, findings which can be associated with pulmonary arterial hypertension which should be correlated clinically. 5. There are no pulmonary emboli. ASSESSMENT AND PLAN: This is a 76-year-old female with PMH of CAD, CHF, HTN, COPD, CATHRYN, CKD3, Anemia, GERD who presented to the ER with SOB, thought to be 2/2 RSV and superimposed PNA. Her hospital course was complicated with worsening renal function, now dialysis dependent. And patient was eventually found to be COVID19 positive. Patient has been transitioned to the ICU for Vapotherm therapy and dialysis. PROBLEMS: #Acute on chronic hypoxemic respiratory failure - likely 2/2 multifactorial etiology; 2/2 COVID19 / RSV / Superimposed bacterial PNA / Possibly fluid overload - Patient is currently on Vapotherm therapy and her requirement has been improving - Sputum culture /: Streptococcus pneumonia - s/p IV diuresis, will restore home diuretic dosing given now rising Cr, pending nephrology recommendations - c/w Inhaled therapy as ordered - c/w ceftriaxone (Day #6) #COVID19 Pneumonia - Placed in isolation on droplet and contact precautions - Has been started on remdesivir and Dexamethasone (Day #3) - c/w Icentive spirometry; will add Acapella and Mucinex #Sepsis, 2/2 rhinovirus and possible CAP: Fever with leukocytosis and lactic acidosis - Procalcitonin resulted and within normal limits - s/p Lactic acidosis #Chronic anemia -Monitor her CBC closely and transfuse if necessary for goal Hgb >8. #ESRD - Has received first HD on 06/12 -consult nephrology despite her diuretic responsiveness given her CKD and GFR that is approaching dialysis need. -daily BMP today 3081 - Will be dialyzed today in the ICU -Dr. Mcclellan saw the patient again today and plans to remove more fluid with d ialysis tomorrow. #Essential hypertension -Continue home meds #COPD w/o exacerbation -c/w home meds/inhalers -O2 titrate to SPO2 88%-92% #Congestive heart failure: -Per Dr. Mcclellan volume status has improved somewhat with dialysis yesterday #DM2 -Hold her home meds glipizide and Januvia. -FSBS ACHS -hypoglycemic protocol #History of secondary hyperparathyroidism -Has history of CKD. Continue home Calcitrol. #GERD -continue with home PPI #Obesity complicating medical care DVT ppx: - c/w heparin SQ Disposition: - Awaiting clinical improvement VS, I&O, 24H, [facility] Vital Signs/I&O Vital Signs Date Time Temp Pulse Resp B/P (MAP) Pulse Ox O2 Delivery O2 Flow Rate FiO2 06/15/21 13:00 70 92 HVNI-Vapotherm 20.0 60 06/15/21 12:00 98.2 30 120/57 (78) I&O- Last 24 Hours up to 6 AM 06/15/21 06:00 Intake Total 1210 ml Output Total 2110 ml Balance -900 ml Laboratory Data 24H LABS Laboratory Tests 2 06/14/21 17:54: Bedside Glucose (Misc Panel) 209H 06/14/21 19:43: Bedside Glucose (Misc Panel) 372H 06/15/21 05:13: Immature Granulocyte % (Auto) , Neutrophils (%) (Auto) , Nucleated Red Blood Cells % (auto) 0.0, Neutrophils 84H, Band Neutrophils 3, Lymphocytes (Manual) 4L, Monocytes (Manual) 4, Metamyelocytes 2H, Myelocytes 3H, Anisocytosis 1+, M acrocytosis 1+, Platelet Estimate NORMAL, Prothrombin Time 15.4H, Prothromb Time International Ratio 1.17, Activated Partial Thromboplast Time 38.3, Fibrinogen 578H, Anion Gap 9, Glomerular Filtration Rate 9.7L, Calcium Level 8.1L, Magnesium Level 2.3, Ferritin 2241H, Total Bilirubin 0.2, Direct Bilirubin < 0.1, Aspartate Amino Transf (AST/SGOT) 55H, Alanine Aminotransferase (ALT/SGPT) 27, Alkaline Phosphatase 56, Lactate Dehydrogenase 346H, Total Creatine Kinase 529H, Troponin I 0.08, WQ-[id number]-Type Natriuretic Peptide 3982H, Total Protein 6.4, Albumin 2.3L, Albumin/Globulin Ratio 0.6L, Procalcitonin 0.26 06/15/21 12:10: Bedside Glucose (Misc Panel) 179H CBC/BMP Laboratory Tests 06/15/21 05:13 Microbiology Microbiology 06/14/21 Urine Culture - Final, Complete 06/13/21 Stool Occult Blood (NICOLE) - Final, Complete 06/09/21 Gram Stain - Final, Complete 06/09/21 Sputum Culture - Final, Complete Streptococcus Pneumoniae 06/09/21 Blood Culture - Final, Complete NO GROWTH AFTER 5 DAYS 06/09/21 Blood Culture - Final, Complete NO GROWTH AFTER 5 DAYS 06/08/21 Respiratory Virus Panel (PCR) (NICOLE) - Final, Complete Human Rhinovirus/Enterovirus GME ATTESTATION GME ATTESTATION My faculty preceptor for this patient encounter was physically present during the encounter and was fully available. All aspects of the patient interview, examination, medical decision making process, and medical care plan development were reviewed and approved by the faculty preceptor. The faculty preceptor is aware and concurs with the plan as stated in the body of this note and will attest to such by his/her cosignature. ATTENDING NOTE I, Amy Giles, have independently examined this patient and performed my own physical exam, as well as reviewed the documentation and edited where necessary with the resident. For medical students we have performed the physical exam together and discussed medical decision making and I have verified the history. I have discussed in detail with the resident / student the findings and plan of treatment as documented by the resident / student and edited their note. I agree with their findings and treatment plan and have edited their documentation. I will continue to follow the patient during this hospital stay. Matt Rhodes DO Jun 15, 2021 14:27 AMY GILES MD Jun 15, 2021 15:00
[2021-06-15] MEDS: guaiFENesin ER 600 MG TAB PO SCH (20:22)
[2021-06-15] MEDS: VITAMIN D 1,000 INTERNATIONAL UNITS TABLET PO SCH (20:22)
[2021-06-15] MEDS: cefTRIAXone SOD 1 GM in D5W MINI-BAG PLUS 50 ML IV SCH (20:22)
[2021-06-16] VITALS (7 sets, daily range): BP systolic 104–128; BP diastolic 55–76
[2021-06-16 04:54] LABS: HEMATOCRIT 26.6 % (36.0-47.0); HEMOGLOBIN 8.6 g/dl (12.0-15.5); MEAN CORPUSCULAR HEMOGLOBIN 32.3 pg (27.0-33.0); MEAN CORPUSCULAR HGB CONC 32.3 g/dl (32.0-36.5); PLATELET COUNT, AUTOMATED 184 10^3/uL (150-450); RED BLOOD COUNT 2.66 10^6/uL (4.00-5.40)
[2021-06-16 05:03] LABS: INR 1.15; PROTHROMBIN TIME 15.1 SECONDS (12.7-14.5)
[2021-06-16 05:04] LABS: PARTIAL THROMBOPLASTIN TIME 39.9 SECONDS (25.9-37.0)
[2021-06-16 05:06] LABS: D-DIMER QUANT 1924.27 ng/ml (<500)
[2021-06-16 05:19] LABS: ALBUMIN 2.4 GM/DL (3.2-5.2); ALT/SGPT 27 U/L (12-78); BILIRUBIN,DIRECT < 0.1 MG/DL (0.0-0.2); BILIRUBIN,TOTAL 0.2 MG/DL (0.2-1.0); C REACTIVE PROTEIN QUANTITATIV 1.44 MG/DL (0.00-0.30); CPK CREATINE PHOSPHOKINASE 321 U/L (26-192); FERRITIN 1835 NG/ML (8-252); LDH LACTATE DEHYDROGENASE 370 U/L (84-246); MAGNESIUM LEVEL 2.5 MG/DL (1.8-2.4); TOTAL PROTEIN 5.7 GM/DL (6.4-8.2); TROPONIN I 0.05 NG/ML (< 0.10)
[2021-06-16 05:31] LABS: ATYPICAL LYMPH 2 % (0-5); LYMPHOCYTES 6 % (16-44); METAMYELOCYTES 3 % (0-0); MONOCYTES 9 % (0-5); NEUTROPHILS 80 % (28-66)
[2021-06-16 05:32] LABS: ANISOCYTOSIS 1+; PLATELET ESTIMATE NORMAL (NORMAL); POLYCHROMASIA 1+
[2021-06-16] MEDS: HEPARIN SOD (PORCINE) 5000UNITS/ML 1ML VIAL/SYRINGE SQ SCH ×3 (06:15→20:44)
[2021-06-16] MEDS: ADVAIR HFA 230/21MCG INHALER INH SCH ×2 (07:51→20:00)
[2021-06-16] MEDS: HumaLOG INSULIN (NovoLOG) PER UNIT SC SCH ×4 (07:52→20:47)
[2021-06-16 08:41] LABS: BLOOD UREA NITROGEN 79 MG/DL (7-18); CALCIUM LEVEL 7.8 MG/DL (8.8-10.2); CARBON DIOXIDE LEVEL 21 MEQ/L (21-32); CHLORIDE LEVEL 103 MEQ/L (98-107); CREATININE FOR GFR 6.12 MG/DL (0.55-1.30); GLOMERULAR FILTRATION RATE 7.1 (>39); GLUCOSE, FASTING 151 MG/DL (70-100); POTASSIUM SERUM 4.7 MEQ/L (3.5-5.1); SODIUM LEVEL 136 MEQ/L (136-145)
[2021-06-16] MEDS: FOLIC ACID 1 MG TAB PO SCH (09:20)
[2021-06-16] MEDS: allopurinoL 100 MG TAB PO SCH (09:20)
[2021-06-16] MEDS: dexameTHASONE 4 MG/ML 1ML VIAL (J1100 PER 1MG) IV SCH (09:20)
[2021-06-16] MEDS: guaiFENesin ER 600 MG TAB PO SCH ×2 (09:20→20:43)
[2021-06-16] MEDS: PANTOPRAZOLE 40MG TAB (PROTONIX) PO SCH (09:21)
[2021-06-16] MEDS: CALCITRIOL 0.25 MCG CAP (S0169) PO SCH (09:21)
[2021-06-16] MEDS: ATORVASTATIN 20 MG TAB PO SCH (09:21)
[2021-06-16] MEDS: AMIODARONE 200 MG TAB (PACERONE) PO SCH (09:21)
[2021-06-16] MEDS: FUROSEMIDE 80 MG TAB PO SCH ×2 (09:21→17:54)
[2021-06-16] MEDS: FERROUS SULFATE 325MG TAB PO SCH ×2 (09:21→20:42)
[2021-06-16] MEDS: SODIUM CHLORIDE 0.9% INJ 10 ML SYR IV SCH (09:58)
--- NOTE | 2021-06-16 10:08 | IPNPDOC ---
Text Note Date of Service The patient was seen on 06/16/21. NOTE Subjective: Patient is 76-year-old female with PMH of CAD, CHF, HTN, COPD, CATHRYN, CKD3, Anemia, GERD who presented to the ER with SOB, thought to be 2/2 RSV and superimposed PNA. Her hospital course was complicated with worsening renal function, now dialysis dependent. She was eventually found to be COVID19 positive. Patient has been transitioned to the ICU for Vapotherm therapy and dialysis. Patient was seen and examined at the bedside. Patient was that her breathing is doing relatively better. Denies any chest pain or palpitations. Has not exper ience any nausea, vomiting, abdominal pain or diarrhea. Patient is scheduled to receive dialysis today in the ICU. Objective: Vitals (See below) General: Sitting up in chair, appears comfortable, AAOx3 HEENT: NC, AT CVS: +S1S2 Lungs: Fair air entry b/l, faint crackles, no wheezing or rhonchi Abdomen: Soft, ND, NT Extremities: Lower extremities do not reveal any significant edema Imaging: CXR 06/08: CHF pattern with mild bibasilar platelike atelectasis. Cardiomegaly and vascular congestion. No pleural effusion or pulmonary edema seen. CT abdomen / pelvis 06/09: 1. Significantly limited study demonstrating no acute process or explanation for fever. 2. Colonic diverticulosis without active inflammation CT chest 06/09: Possible focal inflammatory or infectious focus in the left upper lobe measuring 15 mm Probable mild pulmonary fibrosis and dependent atelectasis CXR 06/10: Cardiomegaly with pacemaker. Platelike atelectasis persists left base. Cephalization. ECHO 06/10: 1. This study is of poor technical quality. Underlying sinus rhythm with wide QRS complex. 2. Normal left ventricle (LV) size with grossly preserved left ventricular (LV) systolic function based on limited views. I certainly cannot rule out segmental wall motion abnormality with any degree of certainty. Most likely grade 1 diastolic dysfunction. 3. Trivial aortic stenosis. 4. Trivial mitral stenosis. 5. Unable to estimate central venous pressure but at least mild pulmonary hypertension. CXR 06/12: 1. Cardiomegaly and chronic lung field changes as described above without evidence of acute cardiopulmonary disease. 2. Central venous catheter as described above. Consider repeat radiograph with removal of the external rn cardiac cath lead. CTA Chest 06/12: 1. Bibasilar parenchymal opacities with air bronchograms at the lung bases likely represent foci of atelectasis. Clinical correlation to exclude infection suggested. 2. COPD. 3. There is fusiform dilatation of the supravalvular ascending thoracic aorta which measures 3.9 cm. maximally. There is no dissection or saccular component. 4. There is enlargement of the central pulmonary arteries, findings which can be associated with pulmonary arterial hypertension which should be correlated clinically. 5. There are no pulmonary emboli. Assessment and plan: Acute on chronic hypoxemic respiratory failure - likely 2/2 multifactorial etiology; 2/2 COVID19 / RSV / Superimposed bacterial PNA / Possibly fluid overload - Patient is currently on Vapotherm therapy; requirements have remained re latively stable - s/p IV diuresis, will restore home diuretic dosing given now rising Cr, pending nephrology recommendations - c/w Inhaled therapy as ordered COVID19 Pneumonia - c/w Incentive spirometry / Acapella / Mucinex - c/w remdesivir and Dexamethasone (Day #3) Sepsis - likely 2/2 Rhinovirus with superimposed CAP - Patient was that her breathing is doing relatively better - Still reports a mild cough - Hemodynamically stable and afebrile - Sputum culture 06/09: Streptococcus pneumonia - Blood culture 06/09: No growth at 5 days - Urine culture 06/14: Negative - Respiratory panel 06/08: Rhinovirus - s/p Lactic acidosis - PCT of 0.26 - c/w Ceftriaxone (Day #7) Chronic anemia - Hg remains stable ESRD - s/p PermCath placement on 06/[address] Saavedra - Has started HD on 06/12/2021 - Nephrology on consultation; appreciate their input - Will receive HD today HTN - BP well controlled - c/w Furosemide / Diltiazem Questionable athymia - Will review prior records - c/w Amiodarone (from outpatient regimen) DLP - c/w Atorvastatin Chronic COPD - No evidence of exacerbation - c/w inhaled therapy as ordered Chronic Diastolic CHF - No evidence of fluid overload - ECHO noted above - c/w Furosemide NIDDM2 - s/p Glipizide and Januvia from outpatient - c/w ISS Secondary hyperparathyroidism - 2/2 CKD - c/w Calcitrol Gout - c/w Allopurinol Obesity - BMI of 33.5 - Complicating medical care GERD - c/w Protonix DVT prophylaxis - c/w Heparin SQ Disposition: - Awaiting clinical improvement VS,Anna, I+O VSAnna I+O Laboratory Tests 06/16/21 04:35 Vital Signs Date Time Temp Pulse Resp B/P (MAP) Pulse Ox O2 Delivery O2 Flow Rate FiO2 06/16/21 09:22 117 102/59 06/16/21 08:00 99.2 26 88 HVNI-Vapotherm 15.0 55 I&O- Last 24 Hours up to 6 AM 06/16/21 06:00 Intake Total 930 ml Output Total 220 ml Balance 710 ml LAI GILES MD Jun 16, 2021 10:08
[2021-06-16] MEDS: ACETAMINOPHEN TAB 650MG DOSE (2X325MG) PO PRN ×2 (15:17→22:53)
[2021-06-16] MEDS: REMDESIVIR 100 MG in NS 250 ML IV SCH (15:23)
[2021-06-16] MEDS: cefTRIAXone SOD 1 GM in D5W MINI-BAG PLUS 50 ML IV SCH (20:42)
[2021-06-16] MEDS: VITAMIN D 1,000 INTERNATIONAL UNITS TABLET PO SCH (20:42)
--- NOTE | 2021-06-16 21:30 | IPNPDOC ---
Subjective CC/HPI The patient is a 76-year-old female admitted with a reason for visit of [place],Chf Exacerbation,Pneumonia,Rhinovirus Infectio. Events since last encounter Pt was seen and examined in COVID 19 ICU. She remains on Vapotherm with 60% FiO2. She is still oliguria and today and last HD was 2 days ago. Today she will need bedside HD in ICU. She is able to speak to me with the vapotherm on. General: Reports: Fatigue, Malaise; Denies: Chills, Night Sweats Constitutional: Reports: Malaise, Weakness; Denies: Chills, Fever Eyes: Denies: Pain, Vision change ENT: Denies: Head Aches, Ear Pain, Dysphagia Skin: Denies: Rash, Lesions Pulmonary: Reports: Dyspnea, Cough Cardiovascular: Reports: Orthopnea; Denies: Chest Pain, Palpitations Gastrointestinal: Denies: Nausea, Vomiting Genitourinary: Reports: Other Symptoms (Galvan); Denies: Dysuria, Frequency Hematologic: Denies: Bruising, Bleeding Excessively Musculoskeletal: Denies: Neck Pain, Back Pain Neurological: Reports: Weakness; Denies: Numbness, Confusion Psych: Reports: Mood Normal Objective Physical Examination General Exam: Alert, Mild Distress (Resp distress wearing Vapotherm) EYE EXAM: PERRLA, Conjunctiva & lids normal, EOMI ENT EXAM: Atraumatic, Mucous membr. moist/pink Neck Exam: Supple, Other (Rt IJ tunneled HD catheter); No: JVD, thyromegaly Chest Exam: Normal air movement, Other (Mild crepts at bases. Vapother at 60% FiO2 due to COVID 19) Heart Exam: Rate Normal; No: Murmurs, Rubs ABDOMEN EXAM: Normal bowel sounds, Soft; No: Tenderness Extremity Exam: No: Clubbing, Cyanosis, Edema Skin Exam: Nl turgor and temperature; No: Rash, Breakdown Neuro Exam: Strength at 5/5 X4 ext; No: Normal Speech (Sec to shortness of breath) Psych Exam: Mental status NL, Anxiety, Oriented x 3 Vital Signs/I&O Vital Signs Date Time Temp Pulse Resp B/P (MAP) Pulse Ox O2 Delivery O2 Flow Rate FiO2 06/16/21 16:00 99.2 69 22 119/61 (80) 93 HVNI-Vapotherm 20.0 60 I&O- Last 24 Hours up to 6 AM 06/16/21 06:00 Intake Total 930 ml Output Total 220 ml Balance 710 ml Laboratory Data Labs 24H Laboratory Tests 2 06/16/21 04:35: Immature Granulocyte % (Auto) , Neutrophils (%) (Auto) , Nucleated Red Blood Cells % (auto) 0.2H, Neutrophils 80H, Lymphocytes (Manual) 6L, Monocytes (Manual) 9H, Metamyelocytes 3H, Atypical Lymphocytes 2, Polychromasia 1+, Anisocytosis 1+, Macrocytosis 1+, Platelet Estimate NORMAL, Prothrombin Time 15.1H, Prothromb Time International Ratio 1.15, Activated Partial Thromboplast Time 39.9H, Fibrinogen 539H, D-Dimer, Quantitative 1924.27H, Anion Gap 12, Glomerular Filtration Rate 7.1L, Calcium Level 7.8L, Magnesium Level 2.5H, Ferritin 1835H, Total Bilirubin 0.2, Direct Bilirubin < 0.1, Aspartate Amino Transf (AST/SGOT) 38H, Alanine Aminotransferase (ALT/SGPT) 27, Alkaline Phosphatase 58, Lactate Dehydrogenase 370H, Total Creatine Kinase 321H, Troponin I 0.05#, C-Reactive Protein, Quantitative 1.44H, Total Protein 5.7L, Albumin 2 .4L, Albumin/Globulin Ratio 0.7L 06/16/21 07:50: Bedside Glucose (Misc Panel) 135H 06/16/21 11:31: Bedside Glucose (Misc Panel) 168H 06/16/21 17:40: Bedside Glucose (Misc Panel) 138H 06/16/21 20:45: Bedside Glucose (Misc Panel) 297H CBC/BMP Laboratory Tests 06/16/21 04:35 FSBS Laboratory Tests Test 06/16/21 07:50 06/16/21 11:31 06/16/21 17:40 06/16/21 20:45 Range/Units Bedside Glucose (Misc Panel) 135 168 138 297 83-110 MG/DL Current Medications Current Medications Medications (Trade) Dose Ordered Sig/Beatrice Route PRN Reason Start Time Stop Time Status Last Admin Dose Admin Acetaminophen (Tylenol Tab) 650 mg Q4H PRN PO MILD PAIN or TEMP > 101 06/09/21 00:30 06/16/21 15:17 Albuterol Sulfate (Proventil, Ventolin Hfa) 2 puff Q6H PRN INH SOB/WHEEZING 06/09/21 05:50 Albuterol/ Ipratropium (Combivent Respimat 100-20mcg) 1 puff Q4HP PRN INH SHORTNESS OF BREATH 06/09/21 04:20 06/12/21 09:53 Albuterol/ Ipratropium (Duoneb (Ipr 0.5mg/Alb 2.5mg)) 3 ml Q4HP PRN NEB SOB/WHEEZING 06/09/21 04:10 06/09/21 04:17 DC Allopurinol (Zyloprim) 100 mg DAILY PO 06/09/21 09:00 06/16/21 09:20 Amiodarone HCl (Pacerone, Cordarone) 200 mg DAILY PO 06/09/21 09:00 06/16/21 09:21 Atorvastatin Calcium (Lipitor) 20 mg DAILY PO 06/10/21 09:00 06/16/21 09:21 Calcitriol (Rocaltrol) 0.25 mcg DAILY PO 06/09/21 09:00 06/16/21 09:21 Ceftriaxone Sodium 1 gm/ Dextrose 50 ml @ 100 mls/hr Q24H IV 06/09/21 20:00 06/16/21 20:42 Dexamethasone (Decadron) 6 mg DAILY IV 06/13/21 14:00 06/22/21 09:01 06/16/21 09:20 Dextrose (Dextrose 50%) 25 ml ASDIRECTED PRN IV SEE LABEL COMMENTS 06/09/21 04:55 Diltiazem HCl (Cardizem Cd) 120 mg DAILY PO 06/09/21 09:00 06/16/21 09:22 Docusate Sodium (Colace) 100 mg BID PRN PO CONSTIPATION 06/09/21 05:50 Ferrous Sulfate (Ferrous Sulfate) 325 mg BID PO 06/09/21 09:00 06/16/21 20:42 Folic Acid (Folic Acid) 1 mg DAILY PO 06/09/21 09:00 06/16/21 09:20 Furosemide (LASIX injection) 40 mg Q8H IV 06/09/21 06:00 06/10/21 08:27 DC 06/10/21 05:08 Furosemide (Lasix) 80 mg BID@0900,1700 PO 06/11/21 17:00 06/16/21 17:54 Furosemide (Lasix) 80 mg DAILY PO 06/10/21 09:00 06/11/21 12:35 DC 06/11/21 08:21 Glucagon (Glucagon) 1 mg ASDIRECTED PRN SC SEE LABEL COMMENTS 06/09/21 04:55 Glucose (Glucose) 16 GM ASDIRECTED PRN PO SEE LABEL COMMENTS 06/09/21 04:55 Guaifenesin (Mucinex Tab Er) 600 mg BID PO 06/15/21 21:00 06/16/21 20:43 Heparin Sodium (Heparin) Please refer to ... ASDIRECTED XX 06/16/21 06:00 06/17/21 05:59 Heparin Sodium (Heparin) dose as per volume indica... ASDIRECTED PRN IV SEE LABEL COMMENTS 06/16/21 06:00 06/16/21 21:09 DC Heparin Sodium (Porcine) (Heparin) ASDIRECTED PRN IV SEE LABEL COMMENTS 06/12/21 18:30 06/12/21 21:37 DC Heparin Sodium (Porcine) (Heparin) 5,000 units Q8H SC 06/09/21 06:00 06/12/21 18:32 DC 06/12/21 05:19 Heparin Sodium (Porcine) (Heparin) 5,000 units Q8H SQ 06/13/21 14:00 06/16/21 20:44 Heparin Sodium (Porcine) 30080 units/IV Miscellaneous Supplies 250 ml @ 0 mls/hr Q0M IV 06/12/21 18:30 06/12/21 21:37 DC Home Med (Home Med List Complete!) ASDIRECTED XX 06/09/21 00:50 06/09/21 00:55 DC Insulin Human Lispro (HumaLOG INSULIN) SEE PROTOCOL TABLE AC SC 06/09/21 07:30 06/16/21 17:54 Insulin Human Lispro (HumaLOG INSULIN) SEE PROTOCOL TABLE QHS SC 06/09/21 21:00 06/16/21 20:47 Levofloxacin 500 mg/IV Miscellaneous Supplies 100 ml @ 100 mls/hr Q48H IV 06/14/21 22:00 06/13/21 18:05 DC Miscellaneous (Unresolved Patient Own Med Order) SEE LABEL COMMENTS DAILY XX 06/10/21 09:00 06/15/21 16:26 DC Non-Formulary Medication (Heparin Iv Rate Change Documentation ml/ Hr) ASDIRECTED XX 06/12/21 18:30 06/12/21 21:37 DC Pantoprazole Sodium (Protonix) 40 mg DAILY PO 06/09/21 09:00 06/16/21 09:21 Patient Own Medication (Patient'S Own Med) 60MG = 1 TABLET DAILY PO 06/10/21 09:00 06/15/21 16:26 DC Piperacillin Sod/ Tazobactam Sod 2.25 gm/Dextrose 50 ml @ 100 mls/hr Q6H IV 06/09/21 02:00 06/09/21 17:09 DC 06/09/21 14:35 Remdesivir 100 mg/ Sodium Chloride 270 ml @ 270 mls/hr Q24H IV 06/14/21 10:50 06/13/21 12:35 DC Remdesivir 100 mg/ Sodium Chloride 270 ml @ 270 mls/hr Q24H IV 06/14/21 15:00 06/18/21 14:59 06/16/21 15:23 Salmeterol Xinafoate/ Fluticasone (Advair Hfa 230) 2 puff RBID INH 06/10/21 08:00 06/16/21 07:51 Sodium Chloride (Saline Lock Flush) 30 ml Q24H IV 06/14/21 11:50 06/18/21 11:49 06/15/21 14:08 Vitamin D (Vitamin D) 1,000 units QHS PO 06/09/21 21:00 06/16/21 20:42 Allergies Coded Allergies: codeine (Verified Adverse Reaction, Intermediate, stabbing abd pain, 11/30/20) phenytoin (Verified Adverse Reaction, Intermediate, feels like being stabbed in abd, 11/30/20) gabapentin (Verified Adverse Reaction, Mild, VERTIGO, 11/30/20) oxycodone (Verified Adverse Reaction, Mild, SHAKINESS, 11/30/20) Assessment/Plan Date Seen The patient was seen on 06/16/21 in the morning during rounds. Plan / VTE VTE Prophylaxis Ordered?: Yes Plan Orders past 48 Hours Orders Fingerstick Blood Sugar (06/15/21 12:10) Ct W/ Intravenous Contrast Consent (06/15/21 14:17) Acapella (06/15/21 14:54) Guaifenesin Er Tablet (Mucinex Tab Er) (06/15/21 21:00) Pt Eval & Tx As Needed (06/15/21 17:00) Ot Eval & Treat As Needed (06/15/21 17:00) Fingerstick Blood Sugar (06/15/21 17:22) Transfer (In House) (06/15/21 18:12) * Nursing Order * (06/15/21 18:13) Fingerstick Blood Sugar (06/15/21 20:21) Hemodialysis Acute Orders (06/16/21 06:00) Heparin (Heparin) (06/16/21 06:00) Heparin (Heparin) (06/16/21 06:00) Liver Profile (06/16/21 06:00) Creatine Phosphokinase (06/16/21 06:00) Troponin (06/16/21 06:00) C Reactive Protein Quantitativ (06/16/21 06:00) Lactate Dehydrogenase (06/16/21 06:00) Ferritin (06/16/21 06:00) D-Dimer Quant (06/16/21 06:00) Fibrinogen (06/16/21 06:00) Partial Thromboplastin Time (06/16/21 06:00) Prothrombin Time Profile\Inr (06/16/21 06:00) Magnesium Level (06/16/21 06:00) Differential No Charge (06/16/21 04:35) Platelet Estimate (06/16/21 04:35) Basic Metabolic Profile (06/18/21 06:00) Basic Metabolic Profile (06/19/21 06:00) Basic Metabolic Profile (06/20/21 06:00) Basic Metabolic Profile (06/21/21 06:00) Cbc With Differential (06/17/21 06:00) Cbc With Differential (06/18/21 06:00) Cbc With Differential (06/19/21 06:00) Cbc With Differential (06/20/21 06:00) Cbc With Differential (06/21/21 06:00) Fingerstick Blood Sugar (06/16/21 07:50) Basic Metabolic Profile (06/16/21 04:35) 2 Gram Sodium Diet (06/16/21 Breakfast) Fingerstick Blood Sugar (06/16/21 11:31) Fingerstick Blood Sugar (06/16/21 17:40) Basic Metabolic Profile (06/17/21 06:00) Fingerstick Blood Sugar (06/16/21 20:45) Plan Text 1. HFpEF. HD to be done today with UF goal 2Kg. 2. Acute renal failure superimposed on chronic kidney disease. Remains oliguric according to I/O. HD dependent for now. HD today. 3. Anemia sec to ESRD. I would avoid ZINA for now in acute COVID 19 pneumonia due to risk of clots until Hb drops below 8. 4. Acute COVID-19 pneumonia. Patient remains on remdesivir and dexamethasone and requiring O2 via vapotherm. Volume being optimized with HD. 5. Sec Hyperparathyroidism: Continue Calcitriol. Total critical care time excluding procedures was 35 minutes. DAYTON NELSON MD Jun 16, 2021 21:30
[2021-06-17] VITALS (7 sets, daily range): BP systolic 107–133; BP diastolic 59–90
[2021-06-17] MEDS: HEPARIN SOD (PORCINE) 5000UNITS/ML 1ML VIAL/SYRINGE SQ SCH ×3 (06:14→22:10)
[2021-06-17 07:15] LABS: HEMATOCRIT 27.7 % (36.0-47.0); HEMOGLOBIN 8.9 g/dl (12.0-15.5); MEAN CORPUSCULAR HEMOGLOBIN 32.4 pg (27.0-33.0); MEAN CORPUSCULAR HGB CONC 32.1 g/dl (32.0-36.5); MEAN CORPUSCULAR VOLUME 100.7 fl (80.0-96.0); PLATELET COUNT, AUTOMATED 190 10^3/uL (150-450); RED BLOOD COUNT 2.75 10^6/uL (4.00-5.40); WHITE BLOOD COUNT 7.5 10^3/uL (4.0-10.0)
[2021-06-17] MEDS: HumaLOG INSULIN (NovoLOG) PER UNIT SC SCH ×4 (07:30→20:36)
[2021-06-17 07:36] LABS: INR 1.19; PROTHROMBIN TIME 15.5 SECONDS (12.7-14.5)
[2021-06-17 07:37] LABS: PARTIAL THROMBOPLASTIN TIME 43.8 SECONDS (25.9-37.0)
[2021-06-17 07:39] LABS: ALBUMIN 2.4 GM/DL (3.2-5.2); ALT/SGPT 27 U/L (12-78); BILIRUBIN,DIRECT < 0.1 MG/DL (0.0-0.2); BILIRUBIN,TOTAL 0.3 MG/DL (0.2-1.0); BLOOD UREA NITROGEN 47 MG/DL (7-18); CARBON DIOXIDE LEVEL 26 MEQ/L (21-32); CHLORIDE LEVEL 105 MEQ/L (98-107); CPK CREATINE PHOSPHOKINASE 225 U/L (26-192); CREATININE FOR GFR 3.56 MG/DL (0.55-1.30); FERRITIN 1741 NG/ML (8-252); GLOMERULAR FILTRATION RATE 13.3 (>39); GLUCOSE, FASTING 112 MG/DL (70-100); LDH LACTATE DEHYDROGENASE 359 U/L (84-246); MAGNESIUM LEVEL 2.4 MG/DL (1.8-2.4); NT-PRO BNP 3056 PG/ML (<125); POTASSIUM SERUM 4.3 MEQ/L (3.5-5.1); SODIUM LEVEL 139 MEQ/L (136-145); TOTAL PROTEIN 5.7 GM/DL (6.4-8.2); TROPONIN I 0.05 NG/ML (< 0.10)
[2021-06-17] MEDS: ADVAIR HFA 230/21MCG INHALER INH SCH ×2 (08:00→19:28)
[2021-06-17 08:11] LABS: EOSINOPHILS 1 % (0-3); LYMPHOCYTES 2 % (16-44); METAMYELOCYTES 3 % (0-0); MONOCYTES 9 % (0-5); MYELOCYTES 2 % (0-0); NEUTROPHILS 81 % (28-66)
[2021-06-17 08:15] LABS: ANISOCYTOSIS 1+; SCHISTOCYTES 1+; TEAR DROP CELLS 1+
[2021-06-17 08:16] LABS: OVALOCYTES 1+; PLATELET ESTIMATE NORMAL (NORMAL)
--- NOTE | 2021-06-17 09:02 | IPNPDOC ---
Text Note Date of Service The patient was seen on 06/17/21. NOTE Subjective: Patient is 76-year-old female with PMH of CAD, CHF, HTN, COPD, CATHRYN, CKD3, Anemia, GERD who presented to the ER with SOB, thought to be 2/2 RSV and superimposed PNA. Her hospital course was complicated with worsening renal function, now dialysis dependent. She was eventually found to be COVID19 positive. Patient has been transitioned to the ICU for Vapotherm therapy and dialysis. Patient was seen and examined at the bedside. Patient was lying in bed, appears comfortable, not in any acute distress. Reports improvement of her breathing. Reports a mild cough. Denies any chest pain, palpitations, has not spent any nausea, vomiting or diarrhea. Galvan in place. Objective: Vitals (See below) General: Patient is laying in bed, appears comfortable, not in acute distress. She is awake, alert, oriented to person, place and time HEENT: NC, AT CVS: +S1S2 Lungs: There appears to be fair air entry bilaterally without any auscultated crackles, wheezing, rhonchi Abdomen: Soft without distention or tenderness Extremities: No edema Imaging: CXR 06/08: CHF pattern with mild bibasilar platelike atelectasis. Cardiomegaly and vascular congestion. No pleural effusion or pulmonary edema seen. CT abdomen / pelvis 06/09: 1. Significantly limited study demonstrating no acute process or explanation for fever. 2. Colonic diverticulosis without active inflammation CT chest 06/09: Possible focal inflammatory or infectious focus in the left upper lobe measuring 15 mm Probable mild pulmonary fibrosis and dependent atelectasis CXR 06/10: Cardiomegaly with pacemaker. Platelike atelectasis persists left base. Cephalization. ECHO 06/10: 1. This study is of poor technical quality. Underlying sinus rhythm with wide QRS complex. 2. Normal left ventricle (LV) size with grossly preserved left ventricular (LV) systolic function based on limited views. I certainly cannot rule out segmental wall motion abnormality with any degree of certainty. Most likely grade 1 diasto lic dysfunction. 3. Trivial aortic stenosis. 4. Trivial mitral stenosis. 5. Unable to estimate central venous pressure but at least mild pulmonary hypertension. CXR 06/12: 1. Cardiomegaly and chronic lung field changes as described above without evidence of acute cardiopulmonary disease. 2. Central venous catheter as described above. Consider repeat radiograph with removal of the external barge pilot lead. CTA Chest 06/12: 1. Bibasilar parenchymal opacities with air bronchograms at the lung bases likely represent foci of atelectasis. Clinical correlation to exclude infection suggested. 2. COPD. 3. There is fusiform dilatation of the supravalvular ascending thoracic aorta which measures 3.9 cm. maximally. There is no dissection or saccular component. 4. There is enlargement of the central pulmonary arteries, findings which can be associated with pulmonary arterial hypertension which should be correlated clinically. 5. There are no pulmonary emboli. Assessment and plan: Acute on chronic hypoxemic respiratory failure - likely 2/2 multifactorial etiology; 2/2 COVID19 / RSV / Superimposed bacterial PNA - Reports breathing is improving; reports a mild nonproductive cough - Has remained hemodynamically stable and afebrile - Patient is on Vapotherm and her requirement is improving. She will likely be transitioned to nasal cannula today - c/w Inhaled therapy as ordered COVID19 Pneumonia / Rhinovirus - Respiratory panel 06/08: Rhinovirus - COVID19 positive on 06/13 - c/w Remdesivir and Dexamethasone (Day #4) - c/w Incentive spirometry / Acapella / Mucinex Superimposed CAP - Sputum culture 06/09: Streptococcus pneumonia - Blood culture 06/09: No growth at 5 days - Urine culture 06/14: Negative - PCT of 0.26 - Will DC Ceftriaxone (Completed 7 day course ) s/p Lactic acidosis Chronic anemia - Hg remains stable ESRD - s/p PermCath placement on 06/[address] Saavedra - Has started HD on 06/12/2021 - PFS on board for outpatient HD setup - Nephrology on consultation; appreciate their input HTN - BP well controlled - c/w Furosemide / Diltiazem Questionable athymia - Patient reports she doesn't know why she's on this medication - c/w Amiodarone (from outpatient regimen) DLP - c/w Atorvastatin Chronic COPD - No evidence of exacerbation - c/w inhaled therapy as ordered Chronic Diastolic CHF - No evidence of fluid overload - ECHO noted above - c/w Furosemide NIDDM2 - s/p Glipizide and Januvia from outpatient - c/w ISS Secondary hyperparathyroidism - 2/2 CKD - c/w Calcitrol Gout - c/w Allopurinol Obesity - BMI of 33.5 - Complicating medical care GERD - c/w Protonix DVT prophylaxis - c/w Heparin SQ Disposition: - Awaiting clinical improvement - c/w PT / OT - recommending home with services Anna CLANCY, I+O Anna CLANCY I+O Laboratory Tests 06/17/21 06:47 06/17/21 06:48 Vital Signs Date Time Temp Pulse Resp B/P (MAP) Pulse Ox O2 Delivery O2 Flow Rate FiO2 06/17/21 08:00 98.9 69 22 115/72 (86) 92 HVNI-Vapotherm 15.0 45 I&O- Last 24 Hours up to 6 AM 06/17/21 06:00 Intake Total 1440 ml Output Total 2450 ml Balance -1010 ml LAI GILES MD Jun 17, 2021 09:02
[2021-06-17] MEDS: FOLIC ACID 1 MG TAB PO SCH (09:29)
[2021-06-17] MEDS: allopurinoL 100 MG TAB PO SCH (09:29)
[2021-06-17] MEDS: FUROSEMIDE 80 MG TAB PO SCH ×2 (09:30→16:05)
[2021-06-17] MEDS: ATORVASTATIN 20 MG TAB PO SCH (09:30)
[2021-06-17] MEDS: FERROUS SULFATE 325MG TAB PO SCH ×2 (09:30→20:34)
[2021-06-17] MEDS: CALCITRIOL 0.25 MCG CAP (S0169) PO SCH (09:30)
[2021-06-17] MEDS: PANTOPRAZOLE 40MG TAB (PROTONIX) PO SCH (09:30)
[2021-06-17] MEDS: AMIODARONE 200 MG TAB (PACERONE) PO SCH (09:30)
[2021-06-17] MEDS: dexameTHASONE 4 MG/ML 1ML VIAL (J1100 PER 1MG) IV SCH (09:31)
[2021-06-17] MEDS: guaiFENesin ER 600 MG TAB PO SCH ×2 (09:32→20:34)
[2021-06-17] MEDS: SODIUM CHLORIDE 0.9% INJ 10 ML SYR IV SCH (11:50)
[2021-06-17] MEDS: ACETAMINOPHEN TAB 650MG DOSE (2X325MG) PO PRN (14:09)
[2021-06-17] MEDS: REMDESIVIR 100 MG in NS 250 ML IV SCH (16:05)
[2021-06-17] MEDS: VITAMIN D 1,000 INTERNATIONAL UNITS TABLET PO SCH (20:34)
--- NOTE | 2021-06-17 23:08 | IPNPDOC ---
Subjective CC/HPI The patient is a 76-year-old female admitted with a reason for visit of Elier,Chf Exacerbation,Pneumonia,Rhinovirus Infectio. Events since last encounter Pt was seen in COVID 19 ICU. She is feeling better. She is still on Vapotherm. HD was done yesterday 2L fluid was removed. UOP 500/75 ml since yesterday. General: Denies: Chills, Night Sweats Constitutional: Denies: Chills, Fever Eyes: Denies: Pain ENT: Denies: Head Aches, Ear Pain Skin: Denies: Rash, Lesions Pulmonary: Reports: Dyspnea Cardiovascular: Denies: Chest Pain, Palpitations Gastrointestinal: Denies: Nausea, Vomiting Genitourinary: Denies: Dysuria, Frequency Musculoskeletal: Denies: Neck Pain, Back Pain Neurological: Reports: Weakness; Denies: Numbness Psych: Reports: Mood Normal Objective Physical Examination General Exam: Alert, Mild Distress (Resp distress wearing Vapotherm) EYE EXAM: PERRLA, Conjunctiva & lids normal, EOMI ENT EXAM: Atraumatic, Mucous membr. moist/pink Neck Exam: Supple, Other (Rt IJ tunneled HD catheter); No: JVD, thyromegaly Chest Exam: Normal air movement, Other (Mild crepts at bases. Vapother at 60% FiO2 due to COVID 19) Heart Exam: Rate Normal; No: Murmurs, Rubs ABDOMEN EXAM: Normal bowel sounds, Soft; No: Tenderness Extremity Exam: No: Clubbing, Cyanosis, Edema Skin Exam: Nl turgor and temperature; No: Rash, Breakdown Neuro Exam: Strength at 5/5 X4 ext; No: Normal Speech (Sec to shortness of breath) Psych Exam: Mental status NL, Anxiety, Oriented x 3 Vital Signs/I&O Vital Signs Date Time Temp Pulse Resp B/P (MAP) Pulse Ox O2 Delivery O2 Flow Rate FiO2 06/17/21 21:00 8.0 06/17/21 20:30 114 91 06/17/21 20:11 98.7 22 125/90 (102) High Flow Cannula 06/17/21 10:00 45 I&O- Last 24 Hours up to 6 AM 06/17/21 06:00 Intake Total 1440 ml Output Total 2450 ml Balance -1010 ml Laboratory Data Labs 24H Laboratory Tests 2 06/17/21 06:47: Prothrombin Time 15.5H, Prothromb Time International Ratio 1.19, Activated Partial Thromboplast Time 43.8H, Fibrinogen 440, Anion Gap 8, Glomerular Filtration Rate 13.3L, Calcium Level 8.0L, Magnesium Level 2.4, Ferritin 1741H, Total Bilirubin 0.3, Direct Bilirubin < 0.1, Aspartate Amino Transf (AST/SGOT) 29, Alanine Aminotransferase (ALT/SGPT) 27, Alkaline Phosphatase 58, Lactate Dehydrogenase 359H, Total Creatine Kinase 225H, Troponin I 0.05, KG-Rjj-[id number]-Type Natriuretic Peptide 3056H, Total Protein 5.7L, Albumin 2.4L, Albumin/Globulin Ratio 0.7L 06/17/21 06:48: Immature Granulocyte % (Auto) , Neutrophils (%) (Auto) , Nucleated Red Blood Cells % (auto) 0.0, Neutrophils 81H, Band Neutrophils 2, Lymphocytes (Manual) 2L, Monocytes (Manual) 9H, Eosinophils (Manual) 1, Metamyelocytes 3H, Myelocytes 2H, Anisocytosis 1+, Macrocytosis 1+, Schistocytes 1+, Tear Drop Cells 1+, Ovalocytes 1+, Platelet Estimate NORMAL, Procalcitonin 0.06 06/17/21 07:43: Bedside Glucose (Misc Panel) 108 06/17/21 12:21: Bedside Glucose (Misc Panel) 320H 06/17/21 17:42: Bedside Glucose (Misc Panel) 244H CBC/BMP Laboratory Tests 06/17/21 06:47 06/17/21 06:48 FSBS Laboratory Tests Test 06/17/21 07:43 06/17/21 12:21 06/17/21 17:42 Range/Units Bedside Glucose (Misc Panel) 108 320 244 83-110 MG/DL Current Medications Current Medications Medications (Trade) Dose Ordered Sig/Beatrice Route PRN Reason Start Time Stop Time Status Last Admin Dose Admin Acetaminophen (Tylenol Tab) 650 mg Q4H PRN PO MILD PAIN or TEMP > 101 06/09/21 00:30 06/17/21 14:09 Albuterol Sulfate (Proventil, Ventolin Hfa) 2 puff Q6H PRN INH SOB/WHEEZING 06/09/21 05:50 Albuterol/ Ipratropium (Combivent Respimat 100-20mcg) 1 puff Q4HP PRN INH SHORTNESS OF BREATH 06/09/21 04:20 06/12/21 09:53 Albuterol/ Ipratropium (Duoneb (Ipr 0.5mg/Alb 2.5mg)) 3 ml Q4HP PRN NEB SOB/WHEEZING 06/09/21 04:10 06/09/21 04:17 DC Allopurinol (Zyloprim) 100 mg DAILY PO 06/09/21 09:00 06/17/21 09:29 Amiodarone HCl (Pacerone, Cordarone) 200 mg DAILY PO 06/09/21 09:00 06/17/21 09:30 Atorvastatin Calcium (Lipitor) 20 mg DAILY PO 06/10/21 09:00 06/17/21 09:30 Calcitriol (Rocaltrol) 0.25 mcg DAILY PO 06/09/21 09:00 06/17/21 09:30 Ceftriaxone Sodium 1 gm/ Dextrose 50 ml @ 100 mls/hr Q24H IV 06/09/21 20:00 06/17/21 09:03 DC 06/16/21 20:42 Dexamethasone (Decadron) 6 mg DAILY IV 06/13/21 14:00 06/22/21 09:01 06/17/21 09:31 Dextrose (Dextrose 50%) 25 ml ASDIRECTED PRN IV SEE LABEL COMMENTS 06/09/21 04:55 Diltiazem HCl (Cardizem Cd) 120 mg DAILY PO 06/09/21 09:00 06/17/21 09:30 Docusate Sodium (Colace) 100 mg BID PRN PO CONSTIPATION 06/09/21 05:50 Ferrous Sulfate (Ferrous Sulfate) 325 mg BID PO 06/09/21 09:00 06/17/21 20:34 Folic Acid (Folic Acid) 1 mg DAILY PO 06/09/21 09:00 06/17/21 09:29 Furosemide (LASIX injection) 40 mg Q8H IV 06/09/21 06:00 06/10/21 08:27 DC 06/10/21 05:08 Furosemide (Lasix) 80 mg BID@0900,1700 PO 06/11/21 17:00 06/17/21 16:05 Furosemide (Lasix) 80 mg DAILY PO 06/10/21 09:00 06/11/21 12:35 DC 06/11/21 08:21 Glucagon (Glucagon) 1 mg ASDIRECTED PRN SC SEE LABEL COMMENTS 06/09/21 04:55 Glucose (Glucose) 16 GM ASDIRECTED PRN PO SEE LABEL COMMENTS 06/09/21 04:55 Guaifenesin (Mucinex Tab Er) 600 mg BID PO 06/15/21 21:00 06/17/21 20:34 Heparin Sodium (Heparin) Please refer to ... ASDIRECTED XX 06/16/21 06:00 06/17/21 05:59 DC Heparin Sodium (Heparin) dose as per volume indica... ASDIRECTED PRN IV SEE LABEL COMMENTS 06/16/21 06:00 06/16/21 21:09 DC Heparin Sodium (Porcine) (Heparin) ASDIRECTED PRN IV SEE LABEL COMMENTS 06/12/21 18:30 06/12/21 21:37 DC Heparin Sodium (Porcine) (Heparin) 5,000 units Q8H SC 06/09/21 06:00 06/12/21 18:32 DC 06/12/21 05:19 Heparin Sodium (Porcine) (Heparin) 5,000 units Q8H SQ 06/13/21 14:00 06/17/21 22:10 Heparin Sodium (Porcine) 46580 units/IV Miscellaneous Supplies 250 ml @ 0 mls/hr Q0M IV 06/12/21 18:30 06/12/21 21:37 DC Home Med (Home Med List Complete!) ASDIRECTED XX 06/09/21 00:50 06/09/21 00:55 DC Insulin Human Lispro (HumaLOG INSULIN) SEE PROTOCOL TABLE AC SC 06/09/21 07:30 06/17/21 17:47 Insulin Human Lispro (HumaLOG INSULIN) SEE PROTOCOL TABLE QHS SC 06/09/21 21:00 06/16/21 20:47 Levofloxacin 500 mg/IV Miscellaneous Supplies 100 ml @ 100 mls/hr Q48H IV 06/14/21 22:00 06/13/21 18:05 DC Miscellaneous (Unresolved Patient Own Med Order) SEE LABEL COMMENTS DAILY XX 06/10/21 09:00 06/15/21 16:26 DC Non-Formulary Medication (Heparin Iv Rate Change Documentation ml/ Hr) ASDIRECTED XX 06/12/21 18:30 06/12/21 21:37 DC Pantoprazole Sodium (Protonix) 40 mg DAILY PO 06/09/21 09:00 06/17/21 09:30 Patient Own Medication (Patient'S Own Med) 60MG = 1 TABLET DAILY PO 06/10/21 09:00 06/15/21 16:26 DC Piperacillin Sod/ Tazobactam Sod 2.25 gm/Dextrose 50 ml @ 100 mls/hr Q6H IV 06/09/21 02:00 06/09/21 17:09 DC 06/09/21 14:35 Remdesivir 100 mg/ Sodium Chloride 270 ml @ 270 mls/hr Q24H IV 06/14/21 10:50 06/13/21 12:35 DC Remdesivir 100 mg/ Sodium Chloride 270 ml @ 270 mls/hr Q24H IV 06/14/21 15:00 06/18/21 14:59 06/17/21 16:05 Salmeterol Xinafoate/ Fluticasone (Advair Hfa / ) 2 puff RBID INH 06/10/21 08:00 06/17/21 19:28 Sodium Chloride (Saline Lock Flush) 30 ml Q24H IV 06/14/21 11:50 06/18/21 11:49 06/15/21 14:08 Vitamin D (Vitamin D) 1,000 units QHS PO 06/09/21 21:00 06/17/21 20:34 Allergies Coded Allergies: codeine (Verified Adverse Reaction, Intermediate, stabbing abd pain, 11/30/20) phenytoin (Verified Adverse Reaction, Intermediate, feels like being stabbed in abd, 11/30/20) gabapentin (Verified Adverse Reaction, Mild, VERTIGO, 11/30/20) oxycodone (Verified Adverse Reaction, Mild, SHAKINESS, 11/30/20) Assessment/Plan Date Seen The patient was seen on 06/17/21 at 23:04. Plan / VTE VTE Prophylaxis Ordered?: Yes Plan Orders past 48 Hours Orders Basic Metabolic Profile (06/18/21 06:00) Basic Metabolic Profile (06/19/21 06:00) Basic Metabolic Profile (06/20/21 06:00) Basic Metabolic Profile (06/21/21 06:00) Cbc With Differential (06/17/21 06:00) Cbc With Differential (06/18/21 06:00) Cbc With Differential (06/19/21 06:00) Cbc With Differential (06/20/21 06:00) Cbc With Differential (06/21/21 06:00) Fingerstick Blood Sugar (06/16/21 07:50) 2 Gram Sodium Diet (06/16/21 Breakfast) Fingerstick Blood Sugar (06/16/21 11:31) Fingerstick Blood Sugar (06/16/21 17:40) Basic Metabolic Profile (06/17/21 06:00) Fingerstick Blood Sugar (06/16/21 20:45) Differential No Charge (06/17/21 06:48) Platelet Estimate (06/17/21 06:48) Fingerstick Blood Sugar (06/17/21 07:43) Fingerstick Blood Sugar (06/17/21 12:21) Fingerstick Blood Sugar (06/17/21 17:42) Plan Text 1. HFpEF. HD done yesterday. 2Kg removed. Next Hd will be on friday. 2. Acute renal failure superimposed on chronic kidney disease. Remains oliguric according to I/O. HD dependent for now. 3. Anemia sec to ESRD. I would avoid ZINA for now in acute COVID 19 pneumonia due to risk of clots until Hb drops below 8. 4. Acute COVID-19 pneumonia. Patient remains on remdesivir and dexamethasone and requiring O2 via vapotherm. Volume being optimized with HD. 5. Sec Hyperparathyroidism: Continue Calcitriol. DAYTON NELSON MD Jun 17, 2021 23:08
[2021-06-18] VITALS (9 sets, daily range): BP systolic 106–142; BP diastolic 57–90
[2021-06-18 05:15] LABS: HEMATOCRIT 27.2 % (36.0-47.0); HEMOGLOBIN 8.6 g/dl (12.0-15.5); MEAN CORPUSCULAR HEMOGLOBIN 32.5 pg (27.0-33.0); MEAN CORPUSCULAR HGB CONC 31.6 g/dl (32.0-36.5); MEAN CORPUSCULAR VOLUME 102.6 fl (80.0-96.0); PLATELET COUNT, AUTOMATED 210 10^3/uL (150-450); RED BLOOD COUNT 2.65 10^6/uL (4.00-5.40); WHITE BLOOD COUNT 8.3 10^3/uL (4.0-10.0)
[2021-06-18 05:42] LABS: CALCIUM LEVEL 7.6 MG/DL (8.8-10.2); CREATININE FOR GFR 4.5 MG/DL (0.55-1.30); GLOMERULAR FILTRATION RATE 10.2 (>39); POTASSIUM SERUM 4.7 MEQ/L (3.5-5.1)
[2021-06-18 06:14] LABS: ANISOCYTOSIS 1+; LYMPHOCYTES 5 % (16-44); METAMYELOCYTES 3 % (0-0); MONOCYTES 9 % (0-5); MYELOCYTES 4 % (0-0); NEUTROPHILS 79 % (28-66); PLATELET ESTIMATE NORMAL (NORMAL)
[2021-06-18] MEDS: HEPARIN SOD (PORCINE) 5000UNITS/ML 1ML VIAL/SYRINGE SQ SCH ×3 (06:21→21:43)
[2021-06-18] MEDS: FUROSEMIDE 80 MG TAB PO SCH ×2 (08:19→18:21)
[2021-06-18] MEDS: CALCITRIOL 0.25 MCG CAP (S0169) PO SCH (08:19)
[2021-06-18] MEDS: HumaLOG INSULIN (NovoLOG) PER UNIT SC SCH ×4 (08:20→21:43)
[2021-06-18] MEDS: ADVAIR HFA 230/21MCG INHALER INH SCH ×2 (08:20→20:38)
[2021-06-18] MEDS: FOLIC ACID 1 MG TAB PO SCH (08:21)
[2021-06-18] MEDS: allopurinoL 100 MG TAB PO SCH (08:21)
[2021-06-18] MEDS: AMIODARONE 200 MG TAB (PACERONE) PO SCH (08:21)
[2021-06-18] MEDS: ATORVASTATIN 20 MG TAB PO SCH (08:21)
[2021-06-18] MEDS: FERROUS SULFATE 325MG TAB PO SCH ×2 (08:21→21:45)
[2021-06-18] MEDS: PANTOPRAZOLE 40MG TAB (PROTONIX) PO SCH (08:21)
[2021-06-18] MEDS: guaiFENesin ER 600 MG TAB PO SCH ×2 (08:21→21:45)
[2021-06-18] MEDS: dexameTHASONE 4 MG/ML 1ML VIAL (J1100 PER 1MG) IV SCH (08:22)
--- NOTE | 2021-06-18 09:22 | IPNPDOC ---
Text Note Date of Service The patient was seen on 06/18/21. NOTE Subjective: Patient is 76-year-old female with PMH of CAD, CHF, HTN, COPD (on 3L at home), CATHRYN, CKD3, Anemia, GERD who presented to the ER with SOB, thought to be 2/2 RSV and superimposed PNA. Her hospital course was complicated with worsening renal function, now dialysis dependent. She was eventually found to be COVID19 positive. Patient has been transitioned to the ICU for Vapotherm therapy and dialysis. Patient was seen and examined at the bedside. Patient is seen sitting up in chair, appears comfortable. She is now down to her baseline level of oxygen of 3 L. Patient reports her breathing is doing better. She denies any significant cough. Denies any nausea, vomiting, abdominal pain or diarrhea. Objective: Vitals (See below) General: Patient is sitting up in chair, appears to be comfortable without any acute distress. She is awake, alert, oriented 3 HEENT: Atraumatic normocephalic CVS: +S1S2 Lungs: Air entry appears to be fair bilaterally without any auscultated evidence for crackles, wheezing, rhonchi Abdomen: Soft, without any appreciated distension or tenderness Extremities: Lower extremities do not reveal any edema Imaging: CXR 06/08: CHF pattern with mild bibasilar platelike atelectasis. Cardiomegaly and vascular congestion. No pleural effusion or pulmonary edema seen. CT abdomen / pelvis 06/09: 1. Significantly limited study demonstrating no acute process or explanation for fever. 2. Colonic diverticulosis without active inflammation CT chest 06/09: Possible focal inflammatory or infectious focus in the left upper lobe measuring 15 mm Probable mild pulmonary fibrosis and dependent atelectasis CXR 06/10: Cardiomegaly with pacemaker. Platelike atelectasis persists left base. Cephalization. ECHO 06/10: 1. This study is of poor technical quality. Underlying sinus rhythm with wide QRS complex. 2. Normal left ventricle (LV) size with grossly preserved left ventricular (LV) systolic function based on limited views. I certainly cannot rule out segmental wall motion abnormality with any degree of certainty. Most likely grade 1 diasto lic dysfunction. 3. Trivial aortic stenosis. 4. Trivial mitral stenosis. 5. Unable to estimate central venous pressure but at least mild pulmonary hypertension. CXR 06/12: 1. Cardiomegaly and chronic lung field changes as described above without evidence of acute cardiopulmonary disease. 2. Central venous catheter as described above. Consider repeat radiograph with removal of the external conveyor belt installer lead. CTA Chest 06/12: 1. Bibasilar parenchymal opacities with air bronchograms at the lung bases likely represent foci of atelectasis. Clinical correlation to exclude infection suggested. 2. COPD. 3. There is fusiform dilatation of the supravalvular ascending thoracic aorta which measures 3.9 cm. maximally. There is no dissection or saccular component. 4. There is enlargement of the central pulmonary arteries, findings which can be associated with pulmonary arterial hypertension which should be correlated clinically. 5. There are no pulmonary emboli. Assessment and plan: Acute on chronic hypoxemic respiratory failure - likely 2/2 multifactorial etiology; 2/2 COVID19 / RSV / Superimposed bacterial PNA - Patient appears to be breathing comfortably and is now on her baseline level of oxygen - s/p Vapotherm - At baseline patient uses 3 L of nasal cannula oxygen - currently at baseline - Hemodynamically stable / Afebrile - c/w Inhaled therapy as ordered COVID19 Pneumonia / Rhinovirus - Respiratory panel 06/08: Rhinovirus - COVID19 positive on 06/13 - c/w Remdesivir and Dexamethasone (Day #5) - c/w Incentive spirometry / Acapella / Mucinex Superimposed CAP - Sputum culture 06/09: Streptococcus pneumonia - Blood culture 06/09: No growth at 5 days - Urine culture 06/14: Negative - PCT of 0.26 - s/p Ceftriaxone (Completed 7 day course ) s/p Lactic acidosis Chronic anemia - Hg remains stable ESRD - s/p PermCath placement on 06/[address] Saavedra - Has started HD on 06/12/2021 - PFS on board for outpatient HD setup - Nephrology on consultation; appreciate their input HTN - BP well controlled - c/w Furosemide / Diltiazem Questionable athymia - Patient reports she doesn't know why she's on this medication - c/w Amiodarone (from outpatient regimen) DLP - c/w Atorvastatin Chronic COPD - No evidence of exacerbation - c/w inhaled therapy as ordered Chronic Diastolic CHF - No evidence of fluid overload - ECHO noted above - c/w Furosemide NIDDM2 - s/p Glipizide and Januvia from outpatient - c/w ISS Secondary hyperparathyroidism - 2/2 CKD - c/w Calcitrol Gout - c/w Allopurinol Obesity - BMI of 33.5 - Complicating medical care GERD - c/w Protonix DVT prophylaxis - c/w Heparin SQ Code status: - Patient has voiced that she does not want chest compression and does not want to be connected to a ventilator - Will update code status to DNR / DNI to reflect this change Disposition: - Awaiting clinical improvement - PFS on board for HD setup for outpatient - c/w PT / OT - recommending home with services VS,Anna, I+O VSAnna, I+O Laboratory Tests 06/18/21 04:57 Vital Signs Date Time Temp Pulse Resp B/P (MAP) Pulse Ox O2 Delivery O2 Flow Rate FiO2 06/18/21 08:19 76 106/57 06/18/21 08:00 98.1 22 93 Nasal Cannula 3.0 06/17/21 10:00 45 I&O- Last 24 Hours up to 6 AM 06/18/21 05:59 Intake Total 2070 ml Output Total 650 ml Balance 1420 ml LAI GILES MD Jun 18, 2021 09:22
[2021-06-18] MEDS: ACETAMINOPHEN TAB 650MG DOSE (2X325MG) PO PRN ×2 (14:39→21:44)
[2021-06-18] MEDS: VITAMIN D 1,000 INTERNATIONAL UNITS TABLET PO SCH (21:45)
--- NOTE | 2021-06-18 22:04 | IPNPDOC ---
Subjective CC/HPI The patient is a 76-year-old female admitted with a reason for visit of Elier,Chf Exacerbation,Pneumonia,Rhinovirus Infectio. Events since last encounter Pt was seen in [place] [id number] ICU today. She is feeling much better. O2 has been titrated down to nasal canula. She is sitting in the sofa. General: Denies: Chills, Night Sweats Constitutional: Denies: Chills, Fever Eyes: Denies: Pain ENT: Denies: Head Aches, Ear Pain Skin: Denies: Rash, Lesions Pulmonary: Reports: Dyspnea; Denies: Cough Cardiovascular: Denies: Chest Pain, Palpitations, Orthopnea Gastrointestinal: Denies: Nausea, Vomiting Genitourinary: Denies: Dysuria, Frequency Hematologic: Denies: Bruising Musculoskeletal: Denies: Neck Pain, Back Pain Neurological: Denies: Weakness, Numbness Psych: Reports: Mood Normal Objective Physical Examination General Exam: Alert, Mild Distress (Resp distress wearing nasal canula@6L) EYE EXAM: PERRLA, Conjunctiva & lids normal, EOMI ENT EXAM: Atraumatic, Mucous membr. moist/pink Neck Exam: Supple, Other (Rt IJ tunneled HD catheter); No: JVD, thyromegaly Chest Exam: Normal air movement, Other (Mild crepts at bases. NC@6L) Heart Exam: Rate Normal; No: Murmurs, Rubs ABDOMEN EXAM: Normal bowel sounds, Soft; No: Tenderness Extremity Exam: No: Clubbing, Cyanosis, Edema Skin Exam: Nl turgor and temperature; No: Rash, Breakdown Neuro Exam: Strength at 5/5 X4 ext; No: Normal Speech (Sec to shortness of breath) Psych Exam: Mental status NL, Mood NL, Oriented x 3 Vital Signs/I&O Vital Signs Date Time Temp Pulse Resp B/P (MAP) Pulse Ox O2 Delivery O2 Flow Rate FiO2 06/18/21 19:41 3.0 06/18/21 16:43 97.6 76 16 130/64 (86) 95 Nasal Cannula 06/17/21 10:00 45 I&O- Last 24 Hours up to 6 AM 06/18/21 06:00 Intake Total 2070 ml Output Total 650 ml Balance 1420 ml Laboratory Data Labs 24H Laboratory Tests 2 06/18/21 04:57: Immature Granulocyte % (Auto) , Neutrophils (%) (Auto) , Nucleated Red Blood Cells % (auto) 0.0, Neutrophils 79H, Lymphocytes (Manual) 5L, Monocytes (Manual) 9H, Metamyelocytes 3H, Myelocytes 4H, Poikilocytosis , Anisocytosis 1+, Macrocytosis 1+, Ovalocytes , Platelet Estimate NORMAL, Anion Gap 10, Glomerular Filtration Rate 10.2L, Calcium Level 7.6L 06/18/21 07:31: Bedside Glucose (Misc Panel) 127H 06/18/21 11:37: Bedside Glucose (Misc Panel) 258H 06/18/21 18:20: Bedside Glucose (Misc Panel) 233H 06/18/21 21:25: Bedside Glucose (Misc Panel) 293H CBC/BMP Laboratory Tests 06/18/21 04:57 FSBS Laboratory Tests Test 06/18/21 07:31 06/18/21 11:37 06/18/21 18:20 06/18/21 21:25 Range/Units Bedside Glucose (Misc Panel) 127 258 233 293 83-110 MG/DL Current Medications Current Medications Medications (Trade) Dose Ordered Sig/Beatrice Route PRN Reason Start Time Stop Time Status Last Admin Dose Admin Acetaminophen (Tylenol Tab) 650 mg Q4H PRN PO MILD PAIN or TEMP > 101 06/09/21 00:30 06/18/21 21:44 Albuterol Sulfate (Proventil, Ventolin Hfa) 2 puff Q6H PRN INH SOB/WHEEZING 06/09/21 05:50 Albuterol/ Ipratropium (Combivent Respimat 100-20mcg) 1 puff Q4HP PRN INH SHORTNESS OF BREATH 06/09/21 04:20 06/12/21 09:53 Albuterol/ Ipratropium (Duoneb (Ipr 0.5mg/Alb 2.5mg)) 3 ml Q4HP PRN NEB SOB/WHEEZING 06/09/21 04:10 06/09/21 04:17 DC Allopurinol (Zyloprim) 100 mg DAILY PO 06/09/21 09:00 06/18/21 08:21 Amiodarone HCl (Pacerone, Cordarone) 200 mg DAILY PO 06/09/21 09:00 06/18/21 08:21 Atorvastatin Calcium (Lipitor) 20 mg DAILY PO 06/10/21 09:00 06/18/21 08:21 Calcitriol (Rocaltrol) 0.25 mcg DAILY PO 06/09/21 09:00 06/18/21 08:19 Ceftriaxone Sodium 1 gm/ Dextrose 50 ml @ 100 mls/hr Q24H IV 06/09/21 20:00 06/17/21 09:03 DC 06/16/21 20:42 Dexamethasone (Decadron) 6 mg DAILY IV 06/13/21 14:00 06/22/21 09:01 06/18/21 08:22 Dextrose (Dextrose 50%) 25 ml ASDIRECTED PRN IV SEE LABEL COMMENTS 06/09/21 04:55 Diltiazem HCl (Cardizem Cd) 120 mg DAILY PO 06/09/21 09:00 06/18/21 08:19 Docusate Sodium (Colace) 100 mg BID PRN PO CONSTIPATION 06/09/21 05:50 Ferrous Sulfate (Ferrous Sulfate) 325 mg BID PO 06/09/21 09:00 06/18/21 21:45 Folic Acid (Folic Acid) 1 mg DAILY PO 06/09/21 09:00 06/18/21 08:21 Furosemide (LASIX injection) 40 mg Q8H IV 06/09/21 06:00 06/10/21 08:27 DC 06/10/21 05:08 Furosemide (Lasix) 80 mg BID@0900,1700 PO 06/11/21 17:00 06/18/21 18:21 Furosemide (Lasix) 80 mg DAILY PO 06/10/21 09:00 06/11/21 12:35 DC 06/11/21 08:21 Glucagon (Glucagon) 1 mg ASDIRECTED PRN SC SEE LABEL COMMENTS 06/09/21 04:55 Glucose (Glucose) 16 GM ASDIRECTED PRN PO SEE LABEL COMMENTS 06/09/21 04:55 Guaifenesin (Mucinex Tab Er) 600 mg BID PO 06/15/21 21:00 06/18/21 21:45 Heparin Sodium (Heparin) Please refer to ... ASDIRECTED XX 06/16/21 06:00 06/17/21 05:59 DC Heparin Sodium (Heparin) dose as per volume indica... ASDIRECTED PRN IV SEE LABEL COMMENTS 06/16/21 06:00 06/16/21 21:09 DC Heparin Sodium (Porcine) (Heparin) ASDIRECTED PRN IV SEE LABEL COMMENTS 06/12/21 18:30 06/12/21 21:37 DC Heparin Sodium (Porcine) (Heparin) 5,000 units Q8H SC 06/09/21 06:00 06/12/21 18:32 DC 06/12/21 05:19 Heparin Sodium (Porcine) (Heparin) 5,000 units Q8H SQ 06/13/21 14:00 06/18/21 21:43 Heparin Sodium (Porcine) 61360 units/IV Miscellaneous Supplies 250 ml @ 0 mls/hr Q0M IV 06/12/21 18:30 06/12/21 21:37 DC Home Med (Home Med List Complete!) ASDIRECTED XX 06/09/21 00:50 06/09/21 00:55 DC Insulin Human Lispro (HumaLOG INSULIN) SEE PROTOCOL TABLE AC SC 06/09/21 07:30 06/18/21 18:22 Insulin Human Lispro (HumaLOG INSULIN) SEE PROTOCOL TABLE QHS CA 06/09/21 21:00 06/18/21 21:43 Levofloxacin 500 mg/IV Miscellaneous Supplies 100 ml @ 100 mls/hr Q48H IV 06/14/21 22:00 06/13/21 18:05 DC Miscellaneous (Unresolved Patient Own Med Order) SEE LABEL COMMENTS DAILY XX 06/10/21 09:00 06/15/21 16:26 DC Non-Formulary Medication (Heparin Iv Rate Change Documentation ml/ Hr) ASDIRECTED XX 06/12/21 18:30 06/12/21 21:37 DC Pantoprazole Sodium (Protonix) 40 mg DAILY PO 06/09/21 09:00 06/18/21 08:21 Patient Own Medication (Patient'S Own Med) 60MG = 1 TABLET DAILY PO 06/10/21 09:00 06/15/21 16:26 DC Piperacillin Sod/ Tazobactam Sod 2.25 gm/Dextrose 50 ml @ 100 mls/hr Q6H IV 06/09/21 02:00 06/09/21 17:09 DC 06/09/21 14:35 Remdesivir 100 mg/ Sodium Chloride 270 ml @ 270 mls/hr Q24H IV 06/14/21 10:50 06/13/21 12:35 DC Remdesivir 100 mg/ Sodium Chloride 270 ml @ 270 mls/hr Q24H IV 06/14/21 15:00 06/18/21 14:59 DC 06/17/21 16:05 Salmeterol Xinafoate/ Fluticasone (Advair Hfa ) 2 puff RBID INH 06/10/21 08:00 06/18/21 20:38 Sodium Chloride (Saline Lock Flush) 30 ml Q24H IV 06/14/21 11:50 06/18/21 11:49 DC 06/15/21 14:08 Vitamin D (Vitamin D) 1,000 units QHS PO 06/09/21 21:00 06/18/21 21:45 Allergies Coded Allergies: codeine (Verified Adverse Reaction, Intermediate, stabbing abd pain, 11/30/20) phenytoin (Verified Adverse Reaction, Intermediate, feels like being stabbed in abd, 11/30/20) gabapentin (Verified Adverse Reaction, Mild, VERTIGO, 11/30/20) oxycodone (Verified Adverse Reaction, Mild, SHAKINESS, 11/30/20) Assessment/Plan Date Seen The patient was seen on 06/18/21 in AM. Plan / VTE VTE Prophylaxis Ordered?: Yes Plan Orders past 48 Hours Orders Fingerstick Blood Sugar (06/17/21 07:43) Fingerstick Blood Sugar (06/17/21 12:21) Fingerstick Blood Sugar (06/17/21 17:42) Differential No Charge (06/18/21 04:57) Platelet Estimate (06/18/21 04:57) Fingerstick Blood Sugar (06/18/21 07:31) Discontinue Urinary Catheter (06/18/21 09:19) Transfer (In House) (06/18/21 11:28) Dc Telemetry (06/18/21 11:29) Fingerstick Blood Sugar (06/18/21 11:37) Code Status (06/18/21 15:29) Fingerstick Blood Sugar (06/18/21 18:20) Fingerstick Blood Sugar (06/18/21 21:25) Plan Text 1. HFpEF. HD done Friday.Next Hd will be tomorrow. 2. Acute renal failure superimposed on chronic kidney disease. Remains oliguric according to I/O. HD dependent for now. Remove Galvan. 3. Anemia sec to ESRD. I would avoid ZINA for now in acute COVID 19 pneumonia due to risk of clots until Hb drops below 8. 4. Acute COVID-19 pneumonia. Remdesivir and dexamethasone and requiring O2 via NC now. Volume being optimized with HD. OK to transfer out of ICU now. 5. Sec Hyperparathyroidism: Continue Calcitriol. DAYTON NELSON MD Jun 18, 2021 22:04
[2021-06-19] MEDS: ACETAMINOPHEN TAB 650MG DOSE (2X325MG) PO PRN ×3 (04:50→21:10)
[2021-06-19] MEDS: HEPARIN SOD (PORCINE) 5000UNITS/ML 1ML VIAL/SYRINGE SQ SCH ×3 (04:51→21:08)
[2021-06-19 06:00] VITALS: BP 142/76
[2021-06-19] MEDS: ADVAIR HFA 230/21MCG INHALER INH SCH ×2 (07:52→21:04)
[2021-06-19 08:07] LABS: HEMOGLOBIN 9.3 g/dl (12.0-15.5); MEAN CORPUSCULAR HEMOGLOBIN 31.6 pg (27.0-33.0); PLATELET COUNT, AUTOMATED 235 10^3/uL (150-450); RED BLOOD COUNT 2.94 10^6/uL (4.00-5.40); WHITE BLOOD COUNT 10.9 10^3/uL (4.0-10.0)
[2021-06-19 08:18] LABS: INR 1.16; PROTHROMBIN TIME 15.3 SECONDS (12.7-14.5)
[2021-06-19 08:19] LABS: PARTIAL THROMBOPLASTIN TIME 39.9 SECONDS (25.9-37.0)
[2021-06-19 08:37] LABS: LYMPHOCYTES 3 % (16-44); METAMYELOCYTES 4 % (0-0); MONOCYTES 5 % (0-5); MYELOCYTES 1 % (0-0); NEUTROPHILS 86 % (28-66); PLATELET ESTIMATE NORMAL (NORMAL)
[2021-06-19] MEDS: AMIODARONE 200 MG TAB (PACERONE) PO SCH (08:38)
[2021-06-19] MEDS: CALCITRIOL 0.25 MCG CAP (S0169) PO SCH (08:38)
[2021-06-19] MEDS: FERROUS SULFATE 325MG TAB PO SCH ×2 (08:38→21:08)
[2021-06-19] MEDS: ATORVASTATIN 20 MG TAB PO SCH (08:38)
[2021-06-19] MEDS: FOLIC ACID 1 MG TAB PO SCH (08:38)
[2021-06-19] MEDS: PANTOPRAZOLE 40MG TAB (PROTONIX) PO SCH (08:38)
[2021-06-19] MEDS: allopurinoL 100 MG TAB PO SCH (08:38)
[2021-06-19] MEDS: dexameTHASONE 4 MG/ML 1ML VIAL (J1100 PER 1MG) IV SCH (08:39)
[2021-06-19] MEDS: guaiFENesin ER 600 MG TAB PO SCH ×2 (08:39→21:08)
[2021-06-19 08:40] LABS: ALBUMIN 2.7 GM/DL (3.2-5.2); ALT/SGPT 28 U/L (12-78); BILIRUBIN,DIRECT < 0.1 MG/DL (0.0-0.2); BILIRUBIN,TOTAL 0.4 MG/DL (0.2-1.0); BLOOD UREA NITROGEN 104 MG/DL (7-18); CALCIUM LEVEL 8.6 MG/DL (8.8-10.2); CARBON DIOXIDE LEVEL 24 MEQ/L (21-32); CHLORIDE LEVEL 100 MEQ/L (98-107); CPK CREATINE PHOSPHOKINASE 98 U/L (26-192); CREATININE FOR GFR 4.49 MG/DL (0.55-1.30); FERRITIN 1273 NG/ML (8-252); GLOMERULAR FILTRATION RATE 10.2 (>39); GLUCOSE, FASTING 159 MG/DL (70-100); LDH LACTATE DEHYDROGENASE 365 U/L (84-246); NT-PRO BNP 3307 PG/ML (<125); POTASSIUM SERUM 4.4 MEQ/L (3.5-5.1); SODIUM LEVEL 134 MEQ/L (136-145); TOTAL PROTEIN 6.8 GM/DL (6.4-8.2); TROPONIN I 0.02 NG/ML (< 0.10)
[2021-06-19] MEDS: HumaLOG INSULIN (NovoLOG) PER UNIT SC SCH ×3 (08:40→21:10)
[2021-06-19] MEDS: FUROSEMIDE 80 MG TAB PO SCH (09:41)
[2021-06-19 14:00] VITALS: BP 140/74
--- NOTE | 2021-06-19 16:11 | IPNPDOC ---
Text Note Date of Service The patient was seen on 06/19/21. NOTE Subjective: -Sitting up in chair, appears comfortable. On oxygen of 3 L. Conversational. Patient reports her breathing is doing better. -Denies any nausea, vomiting, abdominal pain or diarrhea. Objective: Vitals: See below General: Patient is sitting up in chair, appears to be comfortable without any acute distress. She is awake, alert, oriented 3 HEENT: Atraumatic normocephalic CVS: RRR, no m/r/g Lungs: Air entry appears to be fair bilaterally without any auscultated evidence for crackles, wheezing, rhonchi Abdomen: Soft, without any appreciated distension or tenderness Extremities: Lower extremities do not reveal any edema Labs : reviewed Imaging: CXR 06/08: CHF pattern with mild bibasilar platelike atelectasis. Cardiomegaly and vascular congestion. No pleural effusion or pulmonary edema seen. CT abdomen / pelvis 06/09: 1. Significantly limited study demonstrating no acute process or explanation for fever. 2. Colonic diverticulosis without active inflammation CT chest 06/09: Possible focal inflammatory or infectious focus in the left upper lobe measuring 15 mm Probable mild pulmonary fibrosis and dependent atelectasis CXR 06/10: Cardiomegaly with pacemaker. Platelike atelectasis persists left base. Cephalization. ECHO 06/10: 1. This study is of poor technical quality. Underlying sinus rhythm with wide QRS complex. 2. Normal left ventricle (LV) size with grossly preserved left ventricular (LV) systolic function based on limited views. I certainly cannot rule out segmental wall motion abnormality with any degree of certainty. Most likely grade 1 diastolic dysfunction. 3. Trivial aortic stenosis. 4. Trivial mitral stenosis. 5. Unable to estimate central venous pressure but at least mild pulmonary hypertension. CXR 06/12: 1. Cardiomegaly and chronic lung field changes as described above without evidence of acute cardiopulmonary disease. 2. Central venous catheter as described above. Consider repeat radiograph with removal of the external clinical research monitor lead. CTA Chest 06/12: 1. Bibasilar parenchymal opacities with air bronchograms at the lung bases likely represent foci of atelectasis. Clinical correlation to exclude infection suggested. 2. COPD. 3. There is fusiform dilatation of the supravalvular ascending thoracic aorta which measures 3.9 cm. maximally. There is no dissection or saccular component. 4. There is enlargement of the central pulmonary arteries, findings which can be associated with pulmonary arterial hypertension which should be correlated clinically. 5. There are no pulmonary emboli. Assessment: 76-year-old female with PMH of CAD, CHF, HTN, COPD (on 3L at home), CATHRYN, CKD3, Anemia, GERD who presented to the ER with SOB, thought to be 2/2 RSV and superimposed PNA. Her hospital course was complicated with worsening renal function, now dialysis dependent. She was eventually found to be COVID19 positive. Acute on chronic hypoxemic respiratory failure - likely 2/2 multifactorial etiology; 2/2 COVID19 / RSV / Superimposed bacterial PNA - Patient appears to be breathing comfortably and is now on her baseline level of oxygen - At baseline patient uses 3 L of nasal cannula oxygen - currently at baseline - Hemodynamically stable / Afebrile - c/w Inhaled therapy as ordered COVID19 Pneumonia / Rhinovirus - Respiratory panel 06/08: Rhinovirus - COVID19 positive on 06/13 - DC IV Dexamethasone, will give pred taper - s/p 5d of Remdesivir - c/w Incentive spirometry / Acapella / Mucinex Superimposed CAP - Sputum culture 06/09: Streptococcus pneumonia - Blood culture 06/09: No growth at 5 days - Urine culture 06/14: Negative - PCT of 0.26 - s/p Ceftriaxone (Completed 7 day course ) s/p Lactic acidosis Chronic anemia - Hg remains stable ESRD - s/p PermCath placement on 06/[address] Saavedra - Has started HD on 06/12/2021 - PFS on board for outpatient HD setup, done, To nd home tomorrow with T, Th, Sat HD chair - Nephrology on consultation; appreciate their input HTN - BP well controlled - c/w Furosemide / Diltiazem Questionable athymia - Patient reports she doesn't know why she's on this medication - c/w Amiodarone (from outpatient regimen) DLP - c/w Atorvastatin Chronic COPD - No evidence of exacerbation - c/w inhaled therapy as ordered Chronic Diastolic CHF - No evidence of fluid overload - ECHO noted above - c/w Furosemide NIDDM2 - s/p Glipizide and Januvia from outpatient - c/w ISS Secondary hyperparathyroidism - 2/2 CKD - c/w Calcitrol Gout - c/w Allopurinol Obesity - BMI of 33.5 - Complicating medical care GERD - c/w Protonix DVT prophylaxis - c/w Heparin SQ Code status: - DNR / DNI Disposition: -Home tomorrow with services Anna CLANCY, I+O Anna CLANCY I+O Laboratory Tests 06/19/21 07:15 Vital Signs Date Time Temp Pulse Resp B/P (MAP) Pulse Ox O2 Delivery O2 Flow Rate FiO2 06/19/21 14:00 97.2 99 18 140/74 (96) 95 Nasal Cannula 3.0 06/17/21 10:00 45 l I&O- Last 24 Hours up to 6 AM 06/19/21 05:59 Intake Total 1420 ml Output Total 650 ml Balance 770 ml CARITO WEBB MD Jun 19, 2021 16:11
--- NOTE | 2021-06-19 16:49 | IPNPDOC ---
Subjective CC/HPI The patient is a 76-year-old female admitted with a reason for visit of Elier,Chf Exacerbation,Pneumonia,Rhinovirus Infectio. Events since last encounter Pt was examined in [place] [id number] Isolation unit. She was transferred out of ICU yesterday. O2 requirement is only 3L via NC and she reports it is her baseline O2 requirement. No signs of improvement of renal function. Cr is 4.4. General: Denies: Chills, Night Sweats Constitutional: Denies: Chills, Fever Eyes: Denies: Pain, Vision change ENT: Denies: Head Aches, Ear Pain Skin: Denies: Rash, Lesions Pulmonary: Reports: Dyspnea; Denies: Cough Cardiovascular: Denies: Chest Pain, Palpitations Gastrointestinal: Denies: Nausea, Vomiting Genitourinary: Denies: Dysuria, Frequency Hematologic: Denies: Bruising, Bleeding Excessively Musculoskeletal: Denies: Neck Pain, Back Pain Neurological: Denies: Weakness, Numbness Psych: Reports: Mood Normal Objective Physical Examination General Exam: Alert, No Acute Distress EYE EXAM: PERRLA, Conjunctiva & lids normal, EOMI ENT EXAM: Atraumatic, Mucous membr. moist/pink Neck Exam: Supple, Other (Rt IJ tunneled HD catheter); No: JVD, thyromegaly Chest Exam: Normal air movement, Other (Mild crepts at bases. NC@3L) Heart Exam: Rate Normal; No: Murmurs, Rubs ABDOMEN EXAM: Normal bowel sounds, Soft; No: Tenderness Extremity Exam: No: Clubbing, Cyanosis, Edema Skin Exam: Nl turgor and temperature; No: Rash, Breakdown Neuro Exam: Normal Speech, Strength at 5/5 X4 ext Psych Exam: Mental status NL, Mood NL, Oriented x 3 Vital Signs/I&O Vital Signs Date Time Temp Pulse Resp B/P (MAP) Pulse Ox O2 Delivery O2 Flow Rate FiO2 06/19/21 14:00 97.2 99 18 140/74 (96) 95 Nasal Cannula 3.0 06/17/21 10:00 45 I&O- Last 24 Hours up to 6 AM 06/19/21 06:00 Intake Total 1420 ml Output Total 650 ml Balance 770 ml Laboratory Data Labs 24H Laboratory Tests 2 06/18/21 18:20: Bedside Glucose (Misc Panel) 233H 06/18/21 21:25: Bedside Glucose (Misc Panel) 293H 06/19/21 07:15: Immature Granulocyte % (Auto) , Neutrophils (%) (Auto) , Nucleated Red Blood Cells % (auto) 0.3H, Neutrophils 86H, Band Neutrophils 1, Lymphocytes (Manual) 3L, Monocytes (Manual) 5, Metamyelocytes 4H, Myelocytes 1H, Red Blood Cell Morphology NORMAL, Platelet Estimate NORMAL, Prothrombin Time 15.3H, Prothromb T tre International Ratio 1.16, Activated Partial Thromboplast Time 39.9H, Fibrinogen 474H, Anion Gap 10, Glomerular Filtration Rate 10.2L, Calcium Level 8.6L, Ferritin 1273H, Total Bilirubin 0.4, Direct Bilirubin < 0.1, Aspartate Amino Transf (AST/SGOT) 15, Alanine Aminotransferase (ALT/SGPT) 28, Alkaline Phosphatase 67, Lactate Dehydrogenase 365H, Total Creatine Kinase 98, Troponin I 0.02, WR-Agl-[id number]-Type Natriuretic Peptide 3307H, Total Protein 6.8, Albumin 2.7L, Albumin/Globulin Ratio 0.7L, Procalcitonin <0.05 06/19/21 11:54: Bedside Glucose (Misc Panel) 277H CBC/BMP Laboratory Tests 06/19/21 07:15 FSBS Laboratory Tests Test 06/18/21 18:20 06/18/21 21:25 06/19/21 11:54 Range/Units Bedside Glucose (Misc Panel) 233 293 277 83-110 MG/DL Current Medications Current Medications Medications (Trade) Dose Ordered Sig/Beatrice Route PRN Reason Start Time Stop Time Status Last Admin Dose Admin Acetaminophen (Tylenol Tab) 650 mg Q4H PRN PO MILD PAIN or TEMP > 101 06/09/21 00:30 06/19/21 12:34 Albuterol Sulfate (Proventil, Ventolin Hfa) 2 puff Q6H PRN INH SOB/WHEEZING 06/09/21 05:50 Albuterol/ Ipratropium (Combivent Respimat 100-20mcg) 1 puff Q4HP PRN INH SHORTNESS OF BREATH 06/09/21 04:20 06/12/21 09:53 Albuterol/ Ipratropium (Duoneb (Ipr 0.5mg/Alb 2.5mg)) 3 ml Q4HP PRN NEB SOB/WHEEZING 06/09/21 04:10 06/09/21 04:17 DC Allopurinol (Zyloprim) 100 mg DAILY PO 06/09/21 09:00 06/19/21 08:38 Amiodarone HCl (Pacerone, Cordarone) 200 mg DAILY PO 06/09/21 09:00 06/19/21 08:38 Atorvastatin Calcium (Lipitor) 20 mg DAILY PO 06/10/21 09:00 06/19/21 08:38 Calcitriol (Rocaltrol) 0.25 mcg DAILY PO 06/09/21 09:00 06/19/21 08:38 Ceftriaxone Sodium 1 gm/ Dextrose 50 ml @ 100 mls/hr Q24H IV 06/09/21 20:00 06/17/21 09:03 DC 06/16/21 20:42 Dexamethasone (Decadron) 6 mg DAILY IV 06/13/21 14:00 06/19/21 16:12 DC 06/19/21 08:39 Dextrose (Dextrose 50%) 25 ml ASDIRECTED PRN IV SEE LABEL COMMENTS 06/09/21 04:55 Diltiazem HCl (Cardizem Cd) 120 mg DAILY PO 06/09/21 09:00 06/19/21 08:39 Docusate Sodium (Colace) 100 mg BID PRN PO CONSTIPATION 06/09/21 05:50 Ferrous Sulfate (Ferrous Sulfate) 325 mg BID PO 06/09/21 09:00 06/19/21 08:38 Folic Acid (Folic Acid) 1 mg DAILY PO 06/09/21 09:00 06/19/21 08:38 Furosemide (LASIX injection) 40 mg Q8H IV 06/09/21 06:00 06/10/21 08:27 DC 06/10/21 05:08 Furosemide (Lasix) 80 mg BID@0900,1700 PO 06/11/21 17:00 06/19/21 09:41 Furosemide (Lasix) 80 mg DAILY PO 06/10/21 09:00 06/11/21 12:35 DC 06/11/21 08:21 Glucagon (Glucagon) 1 mg ASDIRECTED PRN SC SEE LABEL COMMENTS 06/09/21 04:55 Glucose (Glucose) 16 GM ASDIRECTED PRN PO SEE LABEL COMMENTS 06/09/21 04:55 Guaifenesin (Mucinex Tab Er) 600 mg BID PO 06/15/21 21:00 06/19/21 08:39 Heparin Sodium (Heparin) Please refer to ... ASDIRECTED XX 06/19/21 06:00 06/20/21 05:59 Heparin Sodium (Heparin) Please refer to ... ASDIRECTED XX 06/16/21 06:00 06/17/21 05:59 DC Heparin Sodium (Heparin) dose as per volume indica... ASDIRECTED PRN IV SEE LABEL COMMENTS 06/19/21 06:00 06/19/21 22:59 Heparin Sodium (Heparin) dose as per volume indica... ASDIRECTED PRN IV SEE LABEL COMMENTS 06/16/21 06:00 06/16/21 21:09 DC Heparin Sodium (Porcine) (Heparin) ASDIRECTED PRN IV SEE LABEL COMMENTS 06/12/21 18:30 06/12/21 21:37 DC Heparin Sodium (Porcine) (Heparin) 5,000 units Q8H SC 06/09/21 06:00 06/12/21 18:32 DC 06/12/21 05:19 Heparin Sodium (Porcine) (Heparin) 5,000 units Q8H SQ 06/13/21 14:00 06/19/21 12:35 Heparin Sodium (Porcine) 83583 units/IV Miscellaneous Supplies 250 ml @ 0 mls/hr Q0M IV 06/12/21 18:30 06/12/21 21:37 DC Home Med (Home Med List Complete!) ASDIRECTED XX 06/09/21 00:50 06/09/21 00:55 DC Insulin Human Lispro (HumaLOG INSULIN) SEE PROTOCOL TABLE AC SC 06/09/21 07:30 06/19/21 12:34 Insulin Human Lispro (HumaLOG INSULIN) SEE PROTOCOL TABLE QHS SC 06/09/21 21:00 06/18/21 21:43 Levofloxacin 500 mg/IV Miscellaneous Supplies 100 ml @ 100 mls/hr Q48H IV 06/14/21 22:00 06/13/21 18:05 DC Miscellaneous (Unresolved Patient Own Med Order) SEE LABEL COMMENTS DAILY XX 06/10/21 09:00 06/15/21 16:26 DC Non-Formulary Medication (Heparin Iv Rate Change Documentation ml/ Hr) ASDIRECTED XX 06/12/21 18:30 06/12/21 21:37 DC Pantoprazole Sodium (Protonix) 40 mg DAILY PO 06/09/21 09:00 06/19/21 08:38 Patient Own Medication (Patient'S Own Med) 60MG = 1 TABLET DAILY PO 06/10/21 09:00 06/15/21 16:26 DC Piperacillin Sod/ Tazobactam Sod 2.25 gm/Dextrose 50 ml @ 100 mls/hr Q6H IV 06/09/21 02:00 06/09/21 17:09 DC 06/09/21 14:35 Prednisone (Deltasone) 40 mg DAILY PO 06/20/21 09:00 Remdesivir 100 mg/ Sodium Chloride 270 ml @ 270 mls/hr Q24H IV 06/14/21 10:50 06/13/21 12:35 DC Remdesivir 100 mg/ Sodium Chloride 270 ml @ 270 mls/hr Q24H IV 06/14/21 15:00 06/18/21 14:59 DC 06/17/21 16:05 Salmeterol Xinafoate/ Fluticasone (Advair Hfa 230) 2 puff RBID INH 06/10/21 08:00 06/19/21 07:52 Sodium Chloride (Saline Lock Flush) 30 ml Q24H IV 06/14/21 11:50 06/18/21 11:49 DC 06/15/21 14:08 Vitamin D (Vitamin D) 1,000 units QHS PO 06/09/21 21:00 06/18/21 21:45 Allergies Coded Allergies: codeine (Verified Adverse Reaction, Intermediate, stabbing abd pain, 11/30/20) phenytoin (Verified Adverse Reaction, Intermediate, feels like being stabbed in abd, 11/30/20) gabapentin (Verified Adverse Reaction, Mild, VERTIGO, 11/30/20) oxycodone (Verified Adverse Reaction, Mild, SHAKINESS, 11/30/20) Assessment/Plan Date Seen The patient was seen on 06/19/21 in AM. Plan / VTE VTE Prophylaxis Ordered?: Yes Plan Orders past 48 Hours Orders Fingerstick Blood Sugar (06/17/21 17:42) Differential No Charge (06/18/21 04:57) Platelet Estimate (06/18/21 04:57) Fingerstick Blood Sugar (06/18/21 07:31) Discontinue Urinary Catheter (06/18/21 09:19) Transfer (In House) (06/18/21 11:28) Dc Telemetry (06/18/21 11:29) Fingerstick Blood Sugar (06/18/21 11:37) Code Status (06/18/21 15:29) Fingerstick Blood Sugar (06/18/21 18:20) Fingerstick Blood Sugar (06/18/21 21:25) Heparin (Heparin) (06/19/21 06:00) Heparin (Heparin) (06/19/21 06:00) Basic Metabolic Profile (06/19/21 06:00) Differential No Charge (06/19/21 07:15) Platelet Estimate (06/19/21 07:15) Hemodialysis Acute Orders (06/19/21 11:29) Notify Provider If: (06/19/21 11:37) Fingerstick Blood Sugar (06/19/21 11:54) Prednisone (Deltasone) (06/20/21 09:00) Plan Text 1. HFpEF. HD to be done today. UF goal ~2.5Kg. 2. Acute renal failure superimposed on chronic kidney disease. Remains oliguric according to I/O. HD dependent for now. Continue outpatient HD on DC. 3. Anemia sec to ESRD. start ZINA as outpatient once COVID symptoms resolve. 4. Acute COVID-19 pneumonia. s/o Remdesivir and dexamethasone. O2 requirement is back to baseline. 5. Sec Hyperparathyroidism: Continue Calcitriol. Disposition: OK to [facility] from nephrology standpoint after HD today. DAYTON NELSON MD Jun 19, 2021 16:48
[2021-06-19 20:00] VITALS: BP 129/77
[2021-06-19] MEDS: VITAMIN D 1,000 INTERNATIONAL UNITS TABLET PO SCH (21:08)
[2021-06-20 04:00] VITALS: BP 135/73
[2021-06-20] MEDS: HEPARIN SOD (PORCINE) 5000UNITS/ML 1ML VIAL/SYRINGE SQ SCH ×2 (06:45→12:19)
[2021-06-20] MEDS: HumaLOG INSULIN (NovoLOG) PER UNIT SC SCH ×3 (07:30→12:19)
[2021-06-20 07:43] LABS: CALCIUM LEVEL 8.5 MG/DL (8.8-10.2); CREATININE FOR GFR 3.41 MG/DL (0.55-1.30); POTASSIUM SERUM 4.4 MEQ/L (3.5-5.1)
[2021-06-20 08:11] LABS: HEMATOCRIT 32.9 % (36.0-47.0); HEMOGLOBIN 10.2 g/dl (12.0-15.5); MEAN CORPUSCULAR HEMOGLOBIN 31.9 pg (27.0-33.0); MEAN CORPUSCULAR VOLUME 102.8 fl (80.0-96.0); PLATELET COUNT, AUTOMATED 252 10^3/uL (150-450)
[2021-06-20] MEDS: ADVAIR HFA 230/21MCG INHALER INH SCH (08:22)
[2021-06-20] MEDS: FOLIC ACID 1 MG TAB PO SCH (08:28)
[2021-06-20 08:29] VITALS: BP 135/73
[2021-06-20] MEDS: allopurinoL 100 MG TAB PO SCH (08:29)
[2021-06-20] MEDS: CALCITRIOL 0.25 MCG CAP (S0169) PO SCH (08:29)
[2021-06-20] MEDS: ATORVASTATIN 20 MG TAB PO SCH (08:29)
[2021-06-20] MEDS: FUROSEMIDE 80 MG TAB PO SCH ×2 (08:29→08:34)
[2021-06-20] MEDS: FERROUS SULFATE 325MG TAB PO SCH (08:30)
[2021-06-20] MEDS: guaiFENesin ER 600 MG TAB PO SCH (08:30)
[2021-06-20] MEDS: AMIODARONE 200 MG TAB (PACERONE) PO SCH (08:30)
[2021-06-20] MEDS: PANTOPRAZOLE 40MG TAB (PROTONIX) PO SCH (08:30)
[2021-06-20 08:56] LABS: LYMPHOCYTES 5 % (16-44); METAMYELOCYTES 2 % (0-0); MONOCYTES 3 % (0-5); MYELOCYTES 2 % (0-0); NEUTROPHILS 86 % (28-66); PLATELET ESTIMATE NORMAL (NORMAL)
[2021-06-20] MEDS ORDERED: predniSONE 20 MG TAB PO SCH (09:00)
--- NOTE | 2021-06-20 10:23 | DS.PDOC ---
Discharge Summary General Date of Admission Jun 09, 2021 at 01:49 Date of Discharge 06/20/2021 Attending Physician: CARITO WEBB MD Specialist/Consultants Involve: Mackenzie Mcclellan MD Discharge Summary PROCEDURES PERFORMED DURING STAY: Permacath placement by vascular surgery on 06/12 ADMITTING DIAGNOSES: CHF exacerbation DISCHARGE DIAGNOSES: Progressive CKD now ESRD and initiated on HD HFpEF exacerbation Acute on Chronic hypoxemic respiratory failure RSV URI Covid-19 PNA Streptococcus pneumonia Obesity Emphysema CATHRYN Essential hypertension DM2 History of CAD History of secondary hyperparathyroidism Chronic anemia GERD Lactic acidosis COMPLICATIONS/CHIEF COMPLAINT: Elier,Chf Exacerbation,Pneumonia,Rhinovirus Infectio. HISTORY OF PRESENT ILLNESS: 77-year-old morbidly obese W who presented to [facility] ER with chief complaint of generalized weakness and shortness of breath. Patient has COPD and emphysematous bronchitis and is oxygen dependent (3 L at home). Patient reported that she has had progressive shortness of breath x1 week as well as generalized weakness. Patient also reported orthopnea and paroxysmal nocturnal dyspnea as well as noticing increased lower extremity swelling. She reported that she had been complaint with her 2L fluid restriction and limits her salt content as much as possible, although she reports eating packaged hotdogs often. She denied any increased coughing but did have more increased sputum. She was needing more of her inhalers which did help with her shortness of breath and decided to present to the ER due to more profound generalized weakness. She reported some subjective fever and some chills. HOSPITAL COURSE: In summary, Ms. Montanez has a history of CAD, HFpEF, HTN, COPD (on 3L at home), CATHRYN, CKD3, Anemia, GERD who presented to the ER with SOB, initially thought to be 2/2 RSV and superimposed PNA. Her hospital course was complicated with worsening renal function, now dialysis dependent, and she was eventually found to be COVID19 positive on repeat testing. She was briefly transferred to the ICU for worsening acute on chronic hypoxemic respiratory failure and required up to Vapotherm therapy while she was transitioned to HD by nephrology. Her hospital course by issues was as follows: Acute on chronic hypoxemic respiratory failure - likely 2/2 multifactorial etiology; 2/2 COVID19 / RSV / Superimposed bacterial PNA - At baseline patient uses 3 L of nasal cannula oxygen - currently at baseline, but during the course required Vapotherm and thus brief ICU stay - c/w Inhaled mdis - s/p dexamethasone, now on prednisone taper COVID19 Pneumonia / Rhinovirus - Respiratory panel 06/08: Rhinovirus - COVID19 positive on 06/13 - s/p 5d of Remdesivir - s/p dexamethasone, now on prednisone taper - c/w Incentive spirometry / Acapella / Mucinex Superimposed CAP - Sputum culture 06/09: Streptococcus pneumonia - Blood culture 06/09: No growth at 5 days - Urine culture 06/14: Negative - PCT of 0.26 - s/p Ceftriaxone (Completed 7 day course ) s/p Lactic acidosis Chronic anemia - Hg remains stable ESRD - s/p PermCath placement on 06/[address] Saavedra - Has started HD on 06/12/2021 HTN - BP well controlled - c/w Furosemide / Diltiazem Questionable arrhythmia - Patient reports she doesn't know why she's on this medication - c/w Amiodarone (from outpatient regimen) DLP - c/w Atorvastatin Chronic COPD - No evidence of exacerbation - c/w inhaled therapy as ordered Acute on chronic Diastolic CHF - ECHO noted above - Initially received IV diuretics, now to c/w Furosemide NIDDM2 - Held Glipizide and Januvia from outpatient - was given ISS Secondary hyperparathyroidism - 10/10 ESRD - c/w Calcitrol Gout - c/w Allopurinol Obesity - BMI of 33.5 - Complicating medical care GERD - c/w Protonix DVT prophylaxis - c/w Heparin SQ DISCHARGE MEDICATIONS: Please see below. ALLERGIES: Please see below. PHYSICAL EXAMINATION ON DISCHARGE: VITAL SIGNS: Please see below. Objective: Vitals: See below General: Patient is sitting up in chair, appears to be comfortable without any acute distress. She is awake, alert, oriented 3 HEENT: Atraumatic normocephalic CVS: RRR, +S1S2 Lungs: Air entry is fair bilaterally without any auscultated evidence for crackles, wheezing, rhonchi Abdomen: Soft, without any appreciated distension or tenderness Extremities: Lower extremities do not reveal any edema LABORATORY DATA: Please see below. Imaging: CXR 06/08: CHF pattern with mild bibasilar platelike atelectasis. Cardiomegaly and vascular congestion. No pleural effusion or pulmonary edema seen. CT abdomen / pelvis 06/09: 1. Significantly limited study demonstrating no acute process or explanation for fever. 2. Colonic diverticulosis without active inflammation CT chest 06/09: Possible focal inflammatory or infectious focus in the left upper lobe measuring 15 mm Probable mild pulmonary fibrosis and dependent atelectasis CXR 06/10: Cardiomegaly with pacemaker. Platelike atelectasis persists left base. Cephalization. ECHO 06/10: 1. This study is of poor technical quality. Underlying sinus rhythm with wide QRS complex. 2. Normal left ventricle (LV) size with grossly preserved left ventricular (LV) systolic function based on limited views. I certainly cannot rule out segmental wall motion abnormality with any degree of certainty. Most likely grade 1 diastolic dysfunction. 3. Trivial aortic stenosis. 4. Trivial mitral stenosis. 5. Unable to estimate central venous pressure but at least mild pulmonary hypertension. CXR 06/12: 1. Cardiomegaly and chronic lung field changes as described above without evidence of acute cardiopulmonary disease. 2. Central venous catheter as described above. Consider repeat radiograph with removal of the external quality assurance monitor final lead. CTA Chest 06/12: 1. Bibasilar parenchymal opacities with air bronchograms at the lung bases likely represent foci of atelectasis. Clinical correlation to exclude infection suggested. 2. COPD. 3. There is fusiform dilatation of the supravalvular ascending thoracic aorta wh ich measures 3.9 cm. maximally. There is no dissection or saccular component. 4. There is enlargement of the central pulmonary arteries, findings which can be associated with pulmonary arterial hypertension which should be correlated clinically. 5. There are no pulmonary emboli. PROGNOSIS: Good ACTIVITY: As tolerated DIET: Renal, consistent carb and 2g sodium DISCHARGE PLAN: Home with services, with HD on , , Fri DISPOSITION: Home with services DISCHARGE INSTRUCTIONS: Home with services, with HD on , , Sat. Please complete the prednisone taper as prescribed ITEMS TO FOLLOWUP ON ON OUTPATIENT: ESRD on HD Covid-19 PNA self isolation until resolution of symptoms DISCHARGE CONDITION: Stable TIME SPENT ON DISCHARGE: 55 minutes. Vital Signs/I&Os Vital Signs Date Time Temp Pulse Resp B/P (MAP) Pulse Ox O2 Delivery O2 Flow Rate FiO2 06/20/21 08:29 135/73 06/20/21 04:00 97.2 92 20 93 Nasal Cannula 3.0 06/17/21 10:00 45 I&O- Last 24 Hours up to 6 AM 06/20/21 06:00 Intake Total 1460 ml Output Total 2500 ml Balance -1040 ml Laboratory Data Labs 24H Laboratory Tests 2 06/19/21 11:54: Bedside Glucose (Misc Panel) 277H 06/19/21 20:33: Bedside Glucose (Misc Panel) 272H 06/20/21 07:00: Immature Granulocyte % (Auto) , Neutrophils (%) (Auto) , Nucleated Red Blood Cells % (auto) 0.8H, Neutrophils 86H, Band Neutrophils 2, Lymphocytes (Manual) 5L, Monocytes (Manual) 3, Metamyelocytes 2H, Myelocytes 2H, Platelet Estimate NORMAL, Anion Gap 8, Glomerular Filtration Rate 14.0L, Calcium Level 8.5L CBC/BMP Laboratory Tests 06/20/21 07:00 FSBS Laboratory Tests Test 06/19/21 11:54 06/19/21 20:33 Range/Units Bedside Glucose (Misc Panel) 277 272 83-110 MG/DL Microbiology Microbiology 06/14/21 Urine Culture - Final, Complete 06/13/21 Stool Occult Blood (NICOLE) - Final, Complete Discharge Medications Scheduled Albuterol Sulf (Albuterol Sulfate) 2.5 Mg/3 Ml Vial.neb, 2.5 MG INH QID, (Reported) Allopurinol (Allopurinol) 100 Mg Tablet, 100 MG PO DAILY, (Reported) Amiodarone HCl (Amiodarone HCl) 200 Mg Tablet, 200 MG PO DAILY, (Reported) Atorvastatin Calcium (Atorvastatin Calcium) 20 Mg Tablet, 20 MG PO DAILY, (Reported) Calcitriol (Calcitriol) 0.25 Mcg Capsule, 0.25 MCG PO DAILY, (Reported) Calcium Carbonate (Calcium) 600 Mg Tablet, 600 MG PO BID, (Reported) Cholecalciferol (Vitamin D3) (Vitamin D3) 1,000 Unit Tablet, 1,000 UNITS PO QHS, (Reported) Ferrous Sulfate (Ferrous Sulfate) 325 Mg Tablet, 325 MG PO BID, (Reported) Fluticasone/Vilanterol (Breo Ellipta 200-25 Mcg INH) 1 Each Blst.w.dev, 1 PUFF INH DAILY, (Reported) Folic Acid (Folic Acid) 1 Mg Tablet, 1 MG PO DAILY, (Reported) Furosemide (Furosemide) 40 Mg Tablet, 80 MG PO DAILY, (Reported) Glipizide (Glipizide ER) 2.5 Mg Tab.er.24, 2.5 MG PO DAILY, (Reported) Pantoprazole Sodium (Pantoprazole Sodium) 40 Mg Tablet.dr, 40 MG PO DAILY, (Reported) Raloxifene HCl (Raloxifene HCl) 60 Mg Tablet, 60 MG PO DAILY, (Reported) Sitagliptin (Januvia) 50 Mg Tablet, 50 MG PO DAILY, (Reported) dilTIAZem HCl (Diltiazem 24Hr Cd) 120 Mg Cap.er.24h, 120 MG PO DAILY, (Reported) Scheduled PRN Albuterol Sulfate (Ventolin Hfa) 18 Gm Hfa.aer.ad, 2 PUFFS INH Q6H PRN for SOB/WHEEZING, (Reported) Docusate Sodium (Docusate Sodium) 100 Mg Capsule, 100 MG PO BID PRN for CONSTIPATION, (Reported) Miscellaneous Medications [Med Rec Comment] , (Reported) UNABLE TO SPEAK WITH PT. TO VERIFY USED EXTERNAL Allergies Coded Allergies: codeine (Verified Adverse Reaction, Intermediate, stabbing abd pain, 11/30/20) phenytoin (Verified Adverse Reaction, Intermediate, feels like being stabbed in abd, 11/30/20) gabapentin (Verified Adverse Reaction, Mild, VERTIGO, 11/30/20) oxycodone (Verified Adverse Reaction, Mild, SHAKINESS, 11/30/20) CARITO WEBB MD Jun 20, 2021 10:23
[2021-06-20] MEDS ORDERED: PRED10TA2 PO (10:28)
[2021-06-20] MEDS ORDERED: COMBAER6 INH (10:28)
[2021-06-20] MEDS ORDERED: FURO40TA2 PO (10:28)
[2021-06-20] MEDS ORDERED: MUCI600T31 PO (10:28)
--- NOTE | 2021-06-20 17:02 | IPNPDOC ---
Subjective CC/HPI The patient is a 76-year-old female admitted with a reason for visit of [place],Chf Exacerbation,Pneumonia,Rhinovirus Infectio. Events since last encounter Pt was seen in [place] [address] isolation unit. She was dialyzed yesterday and 2.2Kg fluid was removed. She reports feeling a lot better. O2 requirement is @3L via NC which is her baseline due to COPD. She is getting ready to be discharged today. General: Denies: Chills, Night Sweats, Fatigue Constitutional: Denies: Chills, Fever Eyes: Denies: Pain, Vision change ENT: Denies: Head Aches, Ear Pain Skin: Denies: Rash, Lesions Pulmonary: Reports: Dyspnea (Baseline COPD.) Cardiovascular: Denies: Chest Pain, Palpitations Gastrointestinal: Denies: Nausea, Vomiting Genitourinary: Denies: Dysuria, Frequency Hematologic: Denies: Bruising, Bleeding Excessively Musculoskeletal: Denies: Neck Pain, Back Pain Neurological: Denies: Weakness Psych: Reports: Mood Normal Objective Physical Examination General Exam: Alert, No Acute Distress EYE EXAM: PERRLA, Conjunctiva & lids normal, EOMI ENT EXAM: Atraumatic, Mucous membr. moist/pink Neck Exam: Supple, Other (Rt IJ tunneled HD catheter); No: JVD, thyromegaly Chest Exam: Normal air movement, Other (Mild crepts at bases. NC@3L) Heart Exam: Rate Normal; No: Murmurs, Rubs ABDOMEN EXAM: Normal bowel sounds, Soft; No: Tenderness Extremity Exam: No: Clubbing, Cyanosis, Edema Skin Exam: Nl turgor and temperature; No: Rash, Breakdown Neuro Exam: Normal Speech, Strength at 5/5 X4 ext Psych Exam: Mental status NL, Mood NL, Oriented x 3 Vital Signs/I&O Vital Signs Date Time Temp Pulse Resp B/P (MAP) Pulse Ox O2 Delivery O2 Flow Rate FiO2 06/20/21 08:29 135/73 06/20/21 04:00 97.2 92 20 93 Nasal Cannula 3.0 06/17/21 10:00 45 I&O- Last 24 Hours up to 6 AM 06/20/21 06:00 Intake Total 1460 ml Output Total 2500 ml Balance -1040 ml Laboratory Data Labs 24H Laboratory Tests 2 06/19/21 20:33: Bedside Glucose (Misc Panel) 272H 10/13/21 07:00: Immature Granulocyte % (Auto) , Neutrophils (%) (Auto) , Nucleated Red Blood Cells % (auto) 0.8H, Neutrophils 86H, Band Neutrophils 2, Lymphocytes (Manual) 5L, Monocytes (Manual) 3, Metamyelocytes 2H, Myelocytes 2H, Platelet Estimate NORMAL, Anion Gap 8, Glomerular Filtration Rate 14.0L, Calcium Level 8.5L 06/20/21 11:53: Bedside Glucose (Misc Panel) 207H CBC/BMP Laboratory Tests 06/20/21 07:00 FSBS Laboratory Tests Test 06/19/21 20:33 06/20/21 11:53 Range/Units Bedside Glucose (Misc Panel) 272 207 83-110 MG/DL Current Medications Current Medications Medications (Trade) Dose Ordered Sig/Beatrice Route PRN Reason Start Time Stop Time Status Last Admin Dose Admin Acetaminophen (Tylenol Tab) 650 mg Q4H PRN PO MILD PAIN or TEMP > 101 06/09/21 00:30 06/19/21 21:10 Albuterol Sulfate (Proventil, Ventolin Hfa) 2 puff Q6H PRN INH SOB/WHEEZING 06/09/21 05:50 Albuterol/ Ipratropium (Combivent Respimat 100-20mcg) 1 puff Q4HP PRN INH SHORTNESS OF BREATH 06/09/21 04:20 06/12/21 09:53 Albuterol/ Ipratropium (Duoneb (Ipr 0.5mg/Alb 2.5mg)) 3 ml Q4HP PRN NEB SOB/WHEEZING 06/09/21 04:10 06/09/21 04:17 DC Allopurinol (Zyloprim) 100 mg DAILY PO 06/09/21 09:00 06/20/21 08:29 Amiodarone HCl (Pacerone, Cordarone) 200 mg DAILY PO 06/09/21 09:00 06/20/21 08:30 Atorvastatin Calcium (Lipitor) 20 mg DAILY PO 06/10/21 09:00 06/20/21 08:29 Calcitriol (Rocaltrol) 0.25 mcg DAILY PO 06/09/21 09:00 06/20/21 08:29 Ceftriaxone Sodium 1 gm/ Dextrose 50 ml @ 100 mls/hr Q24H IV 06/09/21 20:00 06/17/21 09:03 DC 06/16/21 20:42 Dexamethasone (Decadron) 6 mg DAILY IV 06/13/21 14:00 06/19/21 16:12 DC 06/19/21 08:39 Dextrose (Dextrose 50%) 25 ml ASDIRECTED PRN IV SEE LABEL COMMENTS 06/09/21 04:55 Diltiazem HCl (Cardizem Cd) 120 mg DAILY PO 06/09/21 09:00 06/20/21 08:29 Docusate Sodium (Colace) 100 mg BID PRN PO CONSTIPATION 06/09/21 05:50 Ferrous Sulfate (Ferrous Sulfate) 325 mg BID PO 06/09/21 09:00 06/20/21 08:30 Folic Acid (Folic Acid) 1 mg DAILY PO 06/09/21 09:00 06/20/21 08:28 Furosemide (LASIX injection) 40 mg Q8H IV 06/09/21 06:00 06/10/21 08:27 DC 06/10/21 05:08 Furosemide (Lasix) 80 mg BID@0900,1700 PO 06/11/21 17:00 06/20/21 08:29 Furosemide (Lasix) 80 mg DAILY PO 06/10/21 09:00 06/11/21 12:35 DC 06/11/21 08:21 Glucagon (Glucagon) 1 mg ASDIRECTED PRN SC SEE LABEL COMMENTS 06/09/21 04:55 Glucose (Glucose) 16 GM ASDIRECTED PRN PO SEE LABEL COMMENTS 06/09/21 04:55 Guaifenesin (Mucinex Tab Er) 600 mg BID PO 06/15/21 21:00 06/20/21 08:30 Heparin Sodium (Heparin) Please refer to ... ASDIRECTED XX 06/19/21 06:00 06/20/21 05:59 DC Heparin Sodium (Heparin) Please refer to ... ASDIRECTED XX 06/16/21 06:00 06/17/21 05:59 DC Heparin Sodium (Heparin) dose as per volume indica... ASDIRECTED PRN IV SEE LABEL COMMENTS 06/19/21 06:00 06/19/21 22:59 DC Heparin Sodium (Heparin) dose as per volume indica... ASDIRECTED PRN IV SEE LABEL COMMENTS 06/16/21 06:00 06/16/21 21:09 DC Heparin Sodium (Porcine) (Heparin) ASDIRECTED PRN IV SEE LABEL COMMENTS 06/12/21 18:30 06/12/21 21:37 DC Heparin Sodium (Porcine) (Heparin) 5,000 units Q8H SC 06/09/21 06:00 06/12/21 18:32 DC 06/12/21 05:19 Heparin Sodium (Porcine) (Heparin) 5,000 units Q8H SQ 06/13/21 14:00 06/20/21 12:19 Heparin Sodium (Porcine) 98545 units/IV Miscellaneous Supplies 250 ml @ 0 mls/hr Q0M IV 06/12/21 18:30 06/12/21 21:37 DC Home Med (Home Med List Complete!) ASDIRECTED XX 06/09/21 00:50 06/09/21 00:55 DC Insulin Human Lispro (HumaLOG INSULIN) SEE PROTOCOL TABLE AC SC 06/09/21 07:30 06/20/21 12:19 Insulin Human Lispro (HumaLOG INSULIN) SEE PROTOCOL TABLE QHS SC 06/09/21 21:00 06/19/21 21:10 Levofloxacin 500 mg/IV Miscellaneous Supplies 100 ml @ 100 mls/hr Q48H IV 06/14/21 22:00 06/13/21 18:05 DC Miscellaneous (Unresolved Patient Own Med Order) SEE LABEL COMMENTS DAILY XX 06/10/21 09:00 06/15/21 16:26 DC Non-Formulary Medication (Heparin Iv Rate Change Documentation ml/ Hr) ASDIRECTED XX 06/12/21 18:30 06/12/21 21:37 DC Pantoprazole Sodium (Protonix) 40 mg DAILY PO 06/09/21 09:00 06/20/21 08:30 Patient Own Medication (Patient'S Own Med) 60MG = 1 TABLET DAILY PO 06/10/21 09:00 06/15/21 16:26 DC Piperacillin Sod/ Tazobactam Sod 2.25 gm/Dextrose 50 ml @ 100 mls/hr Q6H IV 06/09/21 02:00 06/09/21 17:09 DC 06/09/21 14:35 Prednisone (Deltasone) 40 mg DAILY PO 06/20/21 09:00 06/20/21 08:28 Remdesivir 100 mg/ Sodium Chloride 270 ml @ 270 mls/hr Q24H IV 06/14/21 10:50 06/13/21 12:35 DC Remdesivir 100 mg/ Sodium Chloride 270 ml @ 270 mls/hr Q24H IV 06/14/21 15:00 06/18/21 14:59 DC 06/17/21 16:05 Salmeterol Xinafoate/ Fluticasone (Advair Hfa / ) 2 puff RBID INH 06/10/21 08:00 06/20/21 08:22 Sodium Chloride (Saline Lock Flush) 30 ml Q24H IV 06/14/21 11:50 06/18/21 11:49 DC 06/15/21 14:08 Vitamin D (Vitamin D) 1,000 units QHS PO 06/09/21 21:00 06/19/21 21:08 Allergies Coded Allergies: codeine (Verified Adverse Reaction, Intermediate, stabbing abd pain, 11/30/20) phenytoin (Verified Adverse Reaction, Intermediate, feels like being stab bed in abd, 11/30/20) gabapentin (Verified Adverse Reaction, Mild, VERTIGO, 11/30/20) oxycodone (Verified Adverse Reaction, Mild, SHAKINESS, 11/30/20) Assessment/Plan Date Seen The patient was seen on 06/20/21 in AM at [facility] 19 unit. Plan / VTE VTE Prophylaxis Ordered?: Yes Plan Orders past 48 Hours Orders Fingerstick Blood Sugar (06/18/21 18:20) Fingerstick Blood Sugar (06/18/21 21:25) Heparin (Heparin) (06/19/21 06:00) Heparin (Heparin) (06/19/21 06:00) Basic Metabolic Profile (06/19/21 06:00) Differential No Charge (06/19/21 07:15) Platelet Estimate (06/19/21 07:15) Hemodialysis Acute Orders (06/19/21 11:29) Notify Provider If: (06/19/21 11:37) Fingerstick Blood Sugar (06/19/21 11:54) Prednisone (Deltasone) (06/20/21 09:00) Fingerstick Blood Sugar (06/19/21 20:33) Differential No Charge (06/20/21 07:00) Platelet Estimate (06/20/21 07:00) Discharge/Transfer Order (06/20/21 10:24) Patient Discharge Instruction (06/20/21 10:24) Fingerstick Blood Sugar (06/20/21 11:53) Attending Doctor Change: (06/20/21 12:28) Plan Text 1. HFpEF. HD done yesterday. volume status is better. 2. Acute renal failure superimposed on chronic kidney disease. HD dependent for now. Continue outpatient HD on DC. 3. Anemia sec to ESRD. start ZINA as outpatient once COVID symptoms resolve. 4. Acute COVID-19 pneumonia. s/o Remdesivir and dexamethasone. O2 requirement is back to baseline. 5. Sec Hyperparathyroidism: Continue Calcitriol. Disposition: OK to [facility] from nephrology standpoint. DAYTON NELSON MD Jun 20, 2021 17:02
== END 2021-06-20 13:45 | disposition home health service (06) | DRG 871 ==
LOC: M ED 18:04 → EDBD 18:04 → M ED INP 06-09 01:49 → M MSPAV 06-09 03:27 → M PCU 06-12 21:05 → M 4MAIN 06-13 14:37 → M ICU 06-13 20:14 → M 4MAIN 06-18 16:21
PROVIDERS: ADMIT Family Medicine; ATTEND Internal Medicine
PROC: 0JH63XZ Insertion of Tunneled Vascular Access Device into Chest Subcutaneous Tissue and Fascia, Percutaneous Approach (ICD-10-PCS; 2021-06-12)
PROC: 02HV33Z Insertion of Infusion Device into Superior Vena Cava, Percutaneous Approach (ICD-10-PCS; principal; 2021-06-12 09:30)
PROC: XW033E5 Introduction of Remdesivir Anti-infective into Peripheral Vein, Percutaneous Approach, New Technology Group 5 (ICD-10-PCS; 2021-06-13)
PROC: 3E0333Z Introduction of Anti-inflammatory into Peripheral Vein, Percutaneous Approach (ICD-10-PCS; 2021-06-13)
DX: A41.9 Sepsis, unspecified organism (principal); J96.22 Acute and chronic respiratory failure with hypercapnia; I50.43 Acute on chronic combined systolic (congestive) and diastolic (congestive) heart failure; J96.21 Acute and chronic respiratory failure with hypoxia; J13 Pneumonia due to Streptococcus pneumoniae; U07.1 COVID-19; J12.82 Pneumonia due to coronavirus disease 2019; N18.6 End stage renal disease; N17.9 Acute kidney failure, unspecified; I13.2 Hypertensive heart and chronic kidney disease with heart failure and with stage 5 chronic kidney disease, or end stage renal disease; N25.81 Secondary hyperparathyroidism of renal origin; E87.2 Acidosis; J44.0 Chronic obstructive pulmonary disease with (acute) lower respiratory infection; G72.81 Critical illness myopathy; Z66 Do not resuscitate; E11.22 Type 2 diabetes mellitus with diabetic chronic kidney disease; K21.9 Gastro-esophageal reflux disease without esophagitis; E66.9 Obesity, unspecified; F17.200 Nicotine dependence, unspecified, uncomplicated; D63.1 Anemia in chronic kidney disease; G47.33 Obstructive sleep apnea (adult) (pediatric); I25.10 Atherosclerotic heart disease of native coronary artery without angina pectoris; Z95.0 Presence of cardiac pacemaker; Z90.49 Acquired absence of other specified parts of digestive tract; Z79.84 Long term (current) use of oral hypoglycemic drugs; Z79.899 Other long term (current) drug therapy; Z88.5 Allergy status to narcotic agent; Z88.8 Allergy status to other drugs, medicaments and biological substances; Z68.33 Body mass index [BMI] 33.0-33.9, adult; Z99.81 Dependence on supplemental oxygen; Z99.2 Dependence on renal dialysis

== ENCOUNTER 2021-07-04 19:17 | Inpatient (IN) | payer MEDICARE ==
[~2021-07-04] VITALS: Ht 160 cm; Wt 85.2 kg
[~2021-07-04 19:17] MED LIST changes: +BREO1INH3 INH; +COMBAER6 INH; +MED REC COMMENT; +MUCI600T31 PO; +PRED10TA2 PO
--- OUTSIDE RECORDS SUMMARY | 2021-07-04 19:23 | CCD | Continuity of Care Document ---
Author Author Zita Still Organization Unknown Address Unknown Phone [phone] Care Team Providers Care Production Control Analyst Name Role Phone DANYA JETT NP AUTM [phone] Social History Type Date Description Comments Sex Unknown Allergies and adverse reactions Active Allergies Criticality Reaction | Severity Comments Date Fioricet With Codeine Unable to assess criticality 09/12/2020 Medications Active Medications SIG Qnty Indications Ordering Provide r Date Accu-Chek Gisele Plus Strips Used To Check Blood Sugar Twice Daily DX: E11.9 200units Silver [facility] M[facility] 03/21/2021 Lidocaine 5% Ointment apply to affected area four times a day 106.32gm Silver [facility] M[facility] Entresto 24-26mg Tablets Take One Tablet By Mouth Twice Daily 60tabs Silver [facility] Calcitriol 0.25mcg Capsules Take 1 Capsule By Mouth Daily 90caps Silver [facility] 09/12/19 21 Allopurinol 100mg Tablets take 1 tablet by oral route every day 90tabs Silver [facility] 01/2021 Raloxifene HCL 60mg Tablets Take 1 Tablet By Mouth Daily 90tabs Silver Peterson [facility] 00 Azithromycin 500mg Tablets TK 1 T PO D For 3 Days Unknown Losartan Potassium 100mg Tablets Joceline Ferguson Clopidogrel Bisulfate 75mg Tablets TK 1 T PO qd Unknown Atorvastatin Calcium 20mg Tablets Take One Tablet By Mouth Daily 90tabs Silver Peterson [facility] Ranitidine HCL 300mg Tablets Danya Jett ALEXANDR Prednisone 5mg Tablets TK 1 T PO qd Unknown Buspirone HCL 10mg Tablets TK 1 T PO bid Unknown Ipratropium [place]/Albuterol Sulfate 0.5-2.5(3)mg/3ML Solution Inhale The Contents Of 1 Vial Via Nebulizer qid Unknown Diltiazem HCL ER Coated Beads 120mg Caps ER 24HR take 1 capsule(120 mg) by mouth every day at bedtime 90caps Silver Peterson M[facility] Amoxicillin/Clavulanate Potassium 875-125mg Tablets Take 1 Tablet By Mouth Twice Daily as Directed Unknown Azithromycin 250mg Tablets Unknown Glipizide ER 2.5mg Tablets ER 24HR Take 1 Tablet By Mouth Every Day Unknown Methylprednisolone 4mg TBPK Use as Directed - - Start On 08/02/20 Unknown 0 Ventolin HFA 108(90Base) mcg/Act A erosol Inhale 2 Puffs By Mouth Every 4 To 6 Hours as Needed 54units Silver Peterson M[facility] Albuterol Sulfate (2 .5mg/3ML) 0.083% Nebulizer Inhale The Contents Of 1 Vial Via Nebulizer Four Times Daily 360 units Silver Peterson M.D[facility] Ferosul 325(65Fe) mg Tablets take 1 tablet by mouth twice daily 180tabs Silver [facility] M[facility] Metoprolol Tartrate 25mg Tablets Unknown Hydrocodone-Acetaminophen 5-325mg Tablets Unknown Dok 100mg Capsules Unknown Magnesium Oxide 400mg Tablets take 1 tablet by oral route once a day 90tabs Erlinda Arriaga,P.C. Folic Acid 1mg Tablets take 1 tablet by mouth once a day 90tabs Silver Peterson M[facility] 000 Furosemide 40mg Tablets Mackenzie Mcclellan MD Pantoprazole Sodium 40mg Tablets D R take 1 tablet by oral route once a day 90tabs Erlinda Arriaga,P.C[facility] Metformin HCL 1000mg Tablets Take 1 Tablet By Mouth Twice Daily 180tabs Danya Jett NP Gabapentin 100mg Capsules Take One Tablet By Mouth Twice Daily 180caps Silver Peterson M[facility] Januvia 50mg Tablets take one tablet by mouth daily 90tabs Silver Peterson M[facility] Amiodarone HCL 200mg Tablets Take 1 Tablet By Mouth Every Day 90tabs Silver Peterson [facility] Medications Administered in Office Medication SIG Qnty Indications Ordering Provider Date Technetium TC 99M Sestamibi Injection Silver Peterson M.D[facility] 02/23/2020 Adminstraton Fee Injection Danya Jett NP 08/03/2007 Immunizations CPT Code Status Date Vaccine Lot # [id number] Given 08/03/2007 Flu Injection Vital Signs Date Vital Result Comment 10/30/2020 10:28am Height 63 inches 5'3" Weight 164.00 lb BMI (Body Mass Index) 29.0 kg/m2 Body Temperature 97.4 F BP Systolic 134 mmHg BP Diastolic 64 mmHg Heart Rate 97 /min O2 % BldC Oximetry 89 % 3 l 09/12/2020 2:05pm Height 63 inches 5'3" Weight 154.00 lb BMI (Body Mass Index) 27.3 kg/m2 Body Temperature 97.0 F BP Systolic 100 mmHg BP Diastolic 54 mmHg Heart Rate 87 /min O2 % BldC Oximetry 96 % Respiratory Rate 22 /min Results Test Acquired Date Facility Test Result H/L Range Note Ua W/ Reflex To Culture 06/08/2021 [facility] [place] [id number] [phone] Appearance, Urine RFX HAZY Normal Clear Color, Urine RFX YELLOW Normal Yellow PH,Urine RFX 5.0 units Normal 5.0-9.0 Specific [place] Ur Auto RFX 1.013 Normal 1.002-1.035 Protein, Urine Auto RFX 1+ mg/dL High Negative Glucose, Urine (Ua) Auto RFX NEGATIVE mg/dL Normal Negative Ketone, Urine Auto RFX NEGATIVE mg/dL Normal Negative Urobilinogen, Urine Auto RFX 0.2 mg/dL Normal 0.0-2.0 Bilirubin, Urine Auto RFX NEGATIVE Normal Negative Nitrite, Urine Auto RFX NEGATIVE Normal Negative Leukocyte Esterase Ur Auto RFX NEGATIVE Normal Negative Blood, Urine Blood RFX 2+ High Negative WBC, Urine Auto RFX 1 /HPF Normal 0-3 RBC, Urine Auto RFX 2 /HPF Normal 0-3 Bacteria, Urine Auto RFX 1+ High Negative Squam Epithelial Cell Ur Aurfx 0 /HPF Normal 0-6 Hyaline Cast, Urine Auto RFX 0 /LPF Normal 0-1 Urinalysis 04/12/[address] [address] [phone] Urinalysis (SEE NOTE) 1, 2 Source R Color yellow Normal: Yellow Clarity clear Normal: Clear Spec [place] 1.010 1.001 - 1.030 pH 7 5 - 9 Glucose NORM Normal: Negative Bilirubin NEG Normal: Negative Ketone NEG Normal: Negative Protein 15 Normal: Negative Nitrite NEG Normal: Negative Blood NEG Normal: Negative Leuk Est NEG Normal: Negative Urobilinogen NOR less than 1.0 mg/dL Microscopic See Below WBC 1 - 3 Normal: None Seen Epithelial FEW Normal: None Seen Bacteria Trace Normal: None Seen Amorph Sed RARE Normal: None Seen Casts See Below Hyaline Cast 0-1 Abnormal Normal: None Seen Coarse Gran 0-1 Abnormal Normal: None Seen CBC W/Automated Diff 04/12/[address] [address] [phone] CBC W/Automated Diff (SEE NOTE) 3 WBC 9.5 10^3/uL 4.2 - 11.0 RBC 2.99 10^6/uL Low 4.20 - 5.40 Hemoglobin 9.7 g/dL Low 12.0 - 16.0 Hematocrit 32.0 % Low 37.0 - 47.0 MCV 107.0 fL High 81.0 - 101 MCH 32.4 pg 27.0 - 34.0 MCHC 30.3 g/dL Low 31.0 - 36.0 RDW 16.0 % High 11.5 - 14.5 Platelets 194 10^3/uL 150 - 450 MPV 9.5 fL 7.4 - 10.4 Neut 73.5 % 37.0 - 80.0 Lymph 12.4 % Low 25.0 - 40.0 Dolores 7.8 % 3.0 - 8.0 Eos 3.5 % 0.0 - 7.0 Baso 0.5 % 0.0 - 2.5 %Ig 2.3 % High 0.0 - 0.0 %NRBC 0.0 % 0.0 - 0.0 #Neut 6.95 10^3/uL High 2.00 - 6.90 #Lymph 1.17 10^3/uL 0.60 - 3.40 #Dolores 0.74 10^3/uL 0.00 - 0.90 #Eos 0.33 10^3/uL 0.00 - 0.70 #Baso 0.05 10^3/uL 0.00 - 0.20 #Ig 0.22 10^3/uL High 0.00 - 0.10 #NRBC 0.00 10^3/uL 0.00 - 0.00 Manual Diff NOT INDICATED RBC Morph NOT INDICATED PT/PTT 04/12/[address] [address] [phone] Protime 13.6 seconds 11.0 - 15.5 Inr 1.03 0.93 - 1.23 PTT 27.8 seconds 24.8 - 36.7 4 Laboratory test finding 04/12/2021 [facility] [address] [place] [phone] [phone] Troponin T <0.01 NG/ML 0.00 - 0.10 5 Lipase Serum 26 U/L 13 - 60 Magnesium Serum 2.2 mg/dL 1.7 - 2.2 Comprehensive Metabolic Panel 04/12/2021 [facility] [address] [place] [phone] Comprehensive Metabo (SEE NOTE) 6 Sodium 143 mEq/L 134 - 153 Potassium 4.9 mEq/L 3.6 - 5.0 Chloride 101 mEq/L 98 - 107 Co2 34 mEq/L High 22 - 30 Glucose 88 mg/dL 70 - 99 BUN 52 mg/dL High 7 - 21 Creatinine 2.3 mg/dL High 0.7 - 1.5 BUN/Creat 23 8 - 27 Total Protein 6.3 g/dL 6.3 - 8.2 Albumin 3.9 g/dL 3.9 - 5.0 Globulin 2.4 GM/DL 2.4 - 3.2 A/G Ratio 1.6 0.8 - 2.0 Calcium 9.1 mg/dL 8.4 - 10.2 Total Bili <0.7 mg/dL 0.2 - 1.3 Alkaline Phos 81 U/L 38 - 126 Sgot/Ast 11 U/L 5 - 40 SGPT/Alt 7 U/L 7 - 56 Anion Gap 8.0 mmol/L 8.0 - 16.0 Age 76 yrs Non-Aa GFR 22 mL/min Afr Amer GFR >60 7 Laboratory test finding 04/12/2021 [facility] [address] [place], [place] [id number] [phone] Pro-BNP 1469 pg/mL High 0 - 125 TSH Highly Sensitive 5.41 uIU/mL High 0.47 - 5.01 Influenza A And B Rna Probe [facility] [address] [place] [address] [phone] Influenza A NEGATIVE Normal: Negative Influenza B NEGATIVE Normal: Negative Influenza A Reenter NEGATIVE Normal: Negative Influenza B Reenter NEGATIVE Normal: Negative 8 Complete Blood Count 02/07/[address] [id number] [phone] White Blood Count 8.9 10 Normal 4.0-10.0 Red Blood Count 3.18 10 Low 4.00-5.40 Hemoglobin 10.3 g/dL Low 12.0-15.5 Hematocrit 34.6 % Low 36.0-47.0 Mean Corpuscular Volume 108.8 fl High 80.0-96.0 Mean Corpuscular Hemoglobin 32.4 pg Normal 27.0-33.0 Mean Corpuscular HGB Conc 29.8 g/dL Low 32.0-36.5 Red Cell Distribution Width 15.8 % High 11.5-14.5 Platelet Count, Automated 221 10 Normal 150-450 Neutrophils % 71.9 % High 36.0-66.0 Lymph % 13.3 % Low 24.0-44.0 Dolores % 8.4 % High 2.0-8.0 Eos % 4.6 % High 0.0-3.0 Baso % 0.7 % Normal 0.0-1.0 Immature Granulocyte % 1.1 % Normal 0-3.0 Nucleated Red Blood Cell % 0.0 % Normal 0-0 Neutrophils # 6.4 10 Normal 1.5-8.5 Lymph # 1.2 10 Low 1.5-5.0 Dolores # 0.8 10 Normal 0.0-0.8 Eos # 0.4 10 Normal 0.0-0.5 Baso # 0.1 10 Normal 0.0-0.2 Comprehensive Metabolic Profil 02/07/[address] [address] [phone] Glucose, Fasting 86 mg/dL Normal 70-100 Blood Urea Nitrogen 55 mg/dL High 7-18 Creatinine For GFR 2.63 mg/dL High 0.55-1.30 Glomerular Filtration Rate 19.0 Low >39 9 Sodium Level 143 mEq/L Normal 136-145 Potassium Serum 4.8 mEq/L Normal 3.5-5.1 Chloride Level 106 mEq/L Normal 98-107 Carbon Dioxide Level 35 mEq/L High 21-32 Anion Gap 2 mEq/L Low 8-16 Calcium Level 8.8 mg/dL Normal 8.8-10.2 Ast/Sgot 13 U/L Normal 7-37 Alt/SGPT 16 U/L Normal 12-78 Alkaline Phosphatase 94 U/L Normal 45-117 Bilirubin,Total 0.2 mg/dL Normal 0.2-1.0 Total Protein 6.8 GM/DL Normal 6.4-8.2 Albumin 3.3 GM/DL Normal 3.2-5.2 Albumin/Globulin Ratio 0.9 Low 1.2-2.2 Lipid Panel 02/07/[address] [address] [phone] Triglycerides Level 206 mg/dL High <150 Cholesterol Level 163 mg/dL Normal <200 HDL Cholesterol 41 mg/dL Normal >40 LDL Cholesterol 81 mg/dL Normal <100 Non-HDL-C 122 mg/dL Normal Cholesterol Risk Ratio 3.975 Normal <5 Laboratory test finding 02/07/2021 [facility] l [address] [place], [place] [id number] [phone] Magnesium Level 2.6 mg/dL High 1.8-2.4 NT-Pro BNP 1098 pg/mL High <125 1 SOURCE: Clean Catch 2 URINALYSIS 3 COMPLETE BLOOD COUNT 4 \\BLDo\\INR INTERPRETATION\\BLD x\\ Therapeutic range for Coumadin and related oral anticoagulants. -International Normalized Ratio (INR): 2 .0 - 3.0 for Venous Thrombosis, Pulmonary Embolus, Tissue heart valves, Acute OK Atrial Fibrillation, Valvular heart disease and recurrent Systemic Embolism. -International Normalized Ratio (INR): 2 .5 - 3.5 for Mechanical Prosthetic valve. 5 TROPONIN T 0.1 ng/ml Recommended as the clinical th reshold value for Troponin T. 6 COMPREHENSIVE METABOLIC PANE L 7 Male GFR Interprentation 20-49 yrs >60 mL/min Normal 50-59 yrs >56 mL/min Normal 60-69 yrs >49 mL/min Normal 70-79yrs >42 mL/min Normal 80 and above >35 mL/min Normal Female GFR Interpretation 20-39 yrs >60 mL/min Normal 40-49 yrs >58 mL/min Normal 50-59 yrs >51 mL/min Normal 60-69 yrs >45 mL/min Normal 70-79 yrs >39 mL/min Normal 80 and above >32 mL/min Normal 8 PROCEDURAL CONTROL VALID KIT LOT # _[id number] 04/12/21.MRW. KIT EXP DATE _09.07.22 04/12/21.MRW. The Influenza A & B assay is a rapid molecular in vitro diagnostic test utilizing an isothermal nucleic acid amplification technology for the qualitative detection of influenza A and B viral RNA. Negative results do not preclude influenza virus infection and should not be used as the sole basis for diagnosis, treatment or other patient management decisions. 9 Units are mL/min/1.73 m2 Chronic Kidney Disease Staging per NKF: Stage I & II GFR >=60 Normal to Mildly Decreased Stage III GFR 30-59 Moderately Decreased Stage IV GFR 15-29 Severely Decreased Stage V GFR <15 Very Little GFR Left ESRD GFR <15 on THEATRE PROGRAM DIRECTOR Plan of Treatment 10/31/2020 - Danya Jett NP* E78.5 Hyperlipidemia* Comments:* Continue diet and medication, order given to patient for Fasting lipid * Follow up:* f/u o.v. in 3 months * I10 Essential (primary) hypertension* Comments:* stable, continue current medications Bp 134/64 * Follow up:* f/u 3 months * E11.9 Type 2 diabetes mellitus without complications* Comments:* good control with diet and medication,daily FSBS, reminded to get yearly eye exam * Follow up:* f/u with fasting labs in 3 months * R25.1 Massive tremor* Comments:* episodes x 2 of arms and legs shaking uncontrollably sits down if no chair available will fall, states no LOC, no loss of bowel or bladder control * Referral:* [facility], Neurology * I50.20 Unspecified systolic (congestive) heart failure* Comments:* Continue Entresto, 24-26 i po bid * Follow up:* f/u 4 weeks * J44.9 Chronic obstructive pulmonary disease, unspecified* Comments:* Cont 02@2l/min, cont nebulizor, states breathing at baseline no increased sob
--- OUTSIDE RECORDS SUMMARY | 2021-07-04 19:24 | CCD | Continuity of Care Document ---
Author Author Zita MALDONADO PA-C Organization Unknown Address [address] [place] [address] Phone [phone] Problems Active Problems Provider Date Essential hypertension Onset: 01/18/2016 Social History Type Date Description Comments Sex Unknown ETOH Use Denies alcohol use Tobacco Use Start: Unknown Patient is a current smoker, smo kes every day Allergies, Adverse Reactions, Alerts Active Allergies Criticality Reaction | Severity Comments Date Codeine Unable to assess criticality 01/18/2016 Dilantin Unable to assess criticality 01/18/2016 Medications Active Medications SIG Qnty Indications Ordering Provide r Date Euflexxa 20mg/2ML Soln Prefill Syr zaki Rt knee #1 05/25/21 KL/BC Ephraim Pandya MD 2020 Ipratropium [place] 0.02% Solution Ephraim Pandya MD 11/10/2019 Atorvastatin Calcium 20mg Tablets 1 by mouth every day Unknown Calcium 600+D3 [id number]-[id number] Tablets Unknown Vitamin D3 Maximum Strength 5000Unit Capsules Unknown Furosemide 40mg Tablets 1 by mouth every day Unknown Metformin HCL ER (Mod) 1000mg Tablets ER 24HR Unknown Ranitidine HCL 300mg Capsules Unknown Vitamin B12 100mcg Tablets 1 by mouth every day Unknown Ventolin HFA 108(90Base) mcg/Act A erosol Unknown Ipratropium [place] 0.02% Solution Unknown Aspirin Adult 325mg Tablets 1 by mouth every day Unknown Losartan Potassium 100mg Tablets Unknown Pantoprazole Sodium 40mg Tablets DR Unknown Ferrous Sulfate 325mg Tablets 1 by mouth a day Unknown Raloxifene HCL 60mg Tablets Unknown Immunizations Description No Information Available Vital Signs Date Vital Result Comment 05/09/2021 10:11am Body Temperature 97.4 F Height 63 inches 5'3" Weight 190.00 lb pt in w/c BMI (Body Mass Index) 33.7 kg/m2 04/23/2017 5:50pm Body Temperature 99.1 F Height 62 inches 5'2" Weight 143.00 lb BMI (Body Mass Index) 26.2 kg/m2 Results Description No Information Available Procedures Date Code Description Status 05/25/2021 Inject/Drain Joint/Bursa Major C ompleted 05/09/2021 39258 Office/Outpatient Established Lo w MDM 20-29 Min Completed 05/09/2021 Inject/Drain Joint/Bursa Major C ompleted Medical Devices Description No Information Available Encounters Type Date Location Provider Dx Diagnosis Office Visit 05/25/2021 9:45a [place] Marly Maldonado PA-C M17.11 Unilateral primary osteoarthritis, right knee Office Visit 05/09/2021 10:15a [place] Marly Maldonado PA-C M17.11 Unilateral primary osteoarthritis, right knee Assessments Date Code Description Provider 05/25/2021 M17.11 Unilateral primary osteoarthriti s, right knee Marly Maldonado PA-C 05/09/2021 M17.11 Unilateral primary osteoarthriti s, right knee Marly Maldonado PA-C Plan of Treatment Future Appointment(s):* 06/08/2021 2:00 pm - Marly Maldonado PA-C at [place] * 06/01/2021 5:15 pm - Marly Maldonado PA-C at [place] Functional Status Description No Information Available Mental Status Description No Information Available Referrals Refer to Reason for Referral Status Appt Date Marly Maldonado PA-C 05/23/21 Euflexxa Right Knee per [facility] fax auth is approved, [id number],exp 11/18/21,passed to structural design engineer sw. [facility] [address] [place] [address] [address] [place] [address] [phone] Ephraim Pandya MD Right knee Euflexxa- approved. Sending t o scheduling. Created [address] [facility], [address] [place] [address] [phone]
--- OUTSIDE RECORDS SUMMARY | 2021-07-04 19:24 | CCD | Continuity of Care Document ---
Author Author Zita GUY MD Organization Unknown Address [address] [facility], [address] [place] [address] Phone [phone] Care Team Providers Care Steel Burner Name Role Phone Danya Jett AUTM [phone] John Rey DO AUTM [phone] Joceline Ferguson M.D. AUTM [phone] AUTM Unavailable AUTM Unavailable Problems Active Problems Provider Date Overweight Deng Jacobsen D.O. Onset: 2 Tobacco user Priscilla Ziegler A.NRenteta Onset: 03/21/2011 Hypoxemia Priscilla Ziegler A.N.Adriane Onset: 03/21/2011 Essential hypertension Priscilla Ziegler A.N.Ardiane Onset: 03/21/2011 Obstructive sleep apnea syndrome Priscilla Ziegler A.N.Adriane Onset: 11/21/2010 Emphysematous bronchitis Priscilla Ziegler A.N.PRosey Onset: 11/22/19 11 Chronic hypercapnic respiratory failure STACI Shi Onset: 04/17/2021 Ex-smoker STACI Shi Onset: 04/17/2021 Social History Type Date Description Comments Sex Unknown Tobacco Use Start: Unknown Heavy tobacco smoker (more than 10 cigarettes/day) Cigarette Use Report Cessation Counseling Was Provided Tobacco Use Start: Unknown Patient is a current cigarette smoker, smokes every day Smoking Status Reviewed: 04/17/21 Patient is a current cigarette smoker, smokes every day ETOH Use Denies alcohol use Recreational Drug Use Denies Drug Use Tobacco Use Start: Unknown Patient is a current smoker, smo kes every day 1 PPD FOR 2 YEARS Tobacco Use Start: Unknown Report Cessation Counseling Was Provided Tobacco Use Start: Unknown Patient is a current smoker, smo kes every day Pt. hasn't smoked since March 2020 Allergies and adverse reactions Active Allergies Criticality Reaction | Severity Comments Date Codeine Unable to assess criticality nausea 04/09/2010 Phenytoin Unable to assess criticality nausea 04/09/2010 Medications Active Medications SIG Qnty Indications Ordering Provide r Date Breo Ellipta 200-25mcg/Inh Aerosol inhale one puff by mouth every day 60units J44.9 STACI Shi 04/08 Albuterol Sulfate/ Ipratropium (2.5mg/3ML) 0.083% Nebulizer 1 vial qid prn 120units 493.00 Deng Jacobsen DFran Currie 04/10/2010 Furosemide 40mg Tablets 1 po qd 60tabs Unknown Ranitidine HCL 300mg Tablets 1 po bid Unknown Atorvastatin Calcium 20mg Tablets 1 by mouth every day Unknown Calcium + D3 600-200 Tablets 1 by mouth twice a day Unknown Vitamin D (Ergocalciferol) 42724Smei Capsules 1 qd Unknown Pantoprazole Sodium 40mg Tablets D R daily -- one tablet in morning 1/2 hour before breakfast Unknown Raloxifene HCL 60mg Tablets 1 qd Unknown Vitamin B12 600mcg Tablets ER 1 by mouth every day Unknown Ipratropium [place] 0.03% Solution one nasal spray each nostril twice a day Unknown Aspirin 325mg Tablets DR 1 by mouth every day Unknown Ferrous Sulfate 325mg Tablets 1 by mouth twice a day Unknown Ventolin HFA 108(90Base) mcg/Act A erosol 2 puffs four times a day as needed Unknown Medications Administered in Office Medication SIG Qnty Indications Ordering Provider Date Covid-19 vaccine, Unspecified Inj ection Unknown 11/22/2020 Immunizations CPT Code Status Date Vaccine Lot # [id number] Given 07/14/2013 Influenza Vaccine 3 Years Of Age Or Older (Flulaval) 53484 Given 06/20/2010 Influenza Virus Split 3 Yrs And Above For Intramuscular Use Vital Signs Date Vital Result Comment 04/17/2021 9:52am BP Systolic 122 mmHg BP Diastolic 70 mmHg Heart Rate 97 /min O2 % BldC Oximetry 933 % Height 63 inches 5'3" Weight 186.00 lb BMI (Body Mass Index) 32.9 kg/m2 [place] Body Weight 115 lb Weight 84.370 kg BSA (Body Surface Area) 1.87 m2 09/13/2019 10:55am Height 63 inches 5'3" Weight 135.00 lb BMI (Body Mass Index) 23.9 kg/m2 [place] Body Weight 115 lb Weight 61.236 kg BSA (Body Surface Area) 1.64 m2 Results Description No Information Available Procedures Date Code Description Status 06/12/2021 32674 Hospital Subsequent Care Level 2 Completed 06/12/2021 87981 Fluoroscopic Guidanc e For Central Venous Access Device Placement Completed 06/12/2021 56060 Ultrasound Guidance For Vascular Access Requiring Ultrasound Eval Completed 06/12/2021 58853 Insertion Of [place] d Centrally Inserted Central Venous Catheter Completed 04/17/2021 53761 Office/Outpatient New Moderate M DM 45-59 Minutes Completed 04/17/2021 00182 Inhaler Teaching Completed Medical Devices Description No Information Available Encounters Type Date Location Provider Dx Diagnosis Office Visit 06/12/2021 9:00a [facility] Rat abi Guy MD N18.6 End stage renal disease Office Visit 04/17/2021 10:00a [facility] STACI Cobos J44.9 Chronic obstructive pulmonary disease, u nspecified R91.8 Other nonspecific abnormal f inding of lung field Z87.891 Personal history of nicotine dependence J96.12 Chronic respiratory failure with hypercapnia G47.33 Obstructive sleep apnea (yuko lt) (pediatric) Assessments Date Code Description Provider 06/12/2021 N18.6 End stage renal disease Padmini Guy MD 04/17/2021 J44.9 Chronic obstructive pulmonary di sease, unspecified STACI Shi 04/17/2021 R91.8 Other nonspecific abnormal findi ng of lung field STACI Shi 04/17/2021 Z87.891 Personal history of nicotine dep endence STACI Shi 04/17/2021 J96.12 Chronic respiratory failure with hypercapnia STACI Shi 04/17/2021 G47.33 Obstructive sleep apnea (adult) (pediatric) STACI Shi Plan of Treatment Future Appointment(s):* 11/01/2021 1:30 pm - STACI Shi at [facility] 04/17/2021 - STACI Shi* J44.9 Chronic obstructive pulmonary disease, unspecified * R91.8 Other nonspecific abnormal finding of lung field * Z87.891 Personal history of nicotine dependence * J96.12 Chronic respiratory failure with hypercapnia * G47.33 Obstructive sleep apnea (adult) (pediatric) * * New Medication:* Breo Ellipta 200-25 mcg/Inh * New Labs:* FVL/[place], Ordered: 04/17/21 * FVL/[place], Scheduled: 06/06/21 * Follow up:* Follow up 6-8 weeks with fvl/spirometry. Follow up [address] and FVL. Functional Status Description No Information Available Mental Status Description No Information Available Referrals Refer to Reason for Referral Status Appt Date Priscilla Ziegler A.N.P. COPD Closed 04/17/2021 [facility] [address] [place], [place] [id number] [phone]
--- OUTSIDE RECORDS SUMMARY | 2021-07-04 19:24 | CCD | Continuity of Care Document ---
Author Author Zita SANCHEZ PA-C Organization Unknown Address [address] [place] [address] Phone [phone] Problems Active Problems Provider Date Essential hypertension [...] Date Euflexxa 20mg/2ML Soln Prefill Syr zaki rt knee #1 05/25/21 kl/bc rt. knee #2 06/01/21 KLF/SH Ephraim Pandya MD 05/25/2021 Ipratropium [place] 0.02% Solution Ephraim Pandya MD 11/10/2019 Atorvastatin Calcium 20mg Tablets 1 by mouth every day Unknown Calcium 600+D3 [id number] Tablets Unknown Vitamin D3 Maximum Strength 5000Unit Capsules Unknown Furosemide 40mg Tablets 1 by mouth every day Unknown Metformin HCL ER (Mod) 1000mg Tablets ER 24HR Unknown Ranitidine HCL 300mg Capsules Unknown Vitamin B12 100mcg Tablets 1 by mouth every day Unknown Ventolin HFA 108(90Base) mcg/Act A erosol Unknown Ipratropium [place] 0.02% Solution Unknown Aspirin Adult 325mg Tablets [...] Information Available Procedures Date Code Description Status 06/01/2021 Inject/Drain Joint/Bursa Major C ompleted 05/25/2021 Inject/Drain Joint/Bursa Major C ompleted 05/09/2021 29888 Office/Outpatient Established Lo w MDM 20-29 Min Completed 05/09/2021 Inject/Drain Joint/Bursa Major C ompleted Medical Devices Description No Information Available Encounters Type Date Location Provider Dx Diagnosis Office Visit 06/01/2021 5:15p [place] Marly Sanchze PA-C M17.11 Unilateral primary osteoarthritis, right knee Office Visit 05/25/2021 9:45a [place] Marly Sanchez PA-C M17.11 Unilateral primary osteoarthritis, right knee Office Visit 05/09/2021 10:15a [place] Marly Sanchez PA-C M17.11 Unilateral primary osteoarthritis, right knee Assessments Date Code Description Provider 06/01/2021 M17.11 Unilateral primary osteoarthriti s, right knee Marly L. KIARA Sanchez 05/25/2021 M17.11 Unilateral primary osteoarthriti s, right knee Marly L. KIARA Sanchez 05/09/2021 M17.11 Unilateral primary osteoarthriti s, right knee Marly L. KIARA Sanchez Plan of Treatment Future Appointment(s):* 06/08/2021 2:00 pm - Marly Sanchez PA-C at [place] Functional Status Description No Information Available Mental Status Description No Information Available Referrals Refer to Reason for Referral Status Appt Date Marly Sanchez PA-C 05/23/21 Euflexxa Right Knee per [facility] fax auth is approved, [id number],exp 11/18/21,passed to magnetic prospector sw. Created [address] [place] [address] [address] [place] [address] [phone] Ephraim Pandya MD Right knee Euflexxa- approved. Sending t o scheduling. Created [address] [place] [address], [address] [place] [address] [phone]
--- OUTSIDE RECORDS SUMMARY | 2021-07-04 19:24 | CCD | Continuity of Care Document ---
Author Author Zita SANCHEZ PA-C Organization Unknown Address [address] [place] [address] Phone [phone] Problems Active Problems Provider Date Essential hypertension [...] 06/01/21 KLF/SH Ephraim Pandya MD 05/25/2021 Ipratropium [place] 0.02% Solution Ephraim Pandya MD 11/10/2019 Atorvastatin Calcium 20mg Tablets 1 by mouth every day Unknown Calcium 600+D3 [id number]-[id number] Tablets Unknown Vitamin D3 Maximum Strength 5000Unit Capsules Unknown Furosemide 40mg Tablets 1 by mouth every day Unknown Metformin HCL ER (Mod) 1000mg Tablets ER 24HR Unknown Ranitidine HCL 300mg Capsules Unknown Vitamin B12 100mcg Tablets 1 by mouth every day Unknown Ventolin HFA 108(90Base) mcg/Act A erosol Unknown Ipratropium [place] 0.02% Solution Unknown Aspirin Adult 325mg Tablets [...] 05/25/2021 Inject/Drain Joint/Bursa Major C ompleted 05/09/2021 46712 Office/Outpatient Established Lo w MDM 20-29 Min Completed 05/09/2021 Inject/Drain Joint/Bursa Major C ompleted Medical Devices Description No Information Available Encounters Type Date Location Provider Dx Diagnosis Office Visit 06/01/2021 5:15p [place] Marly Sanchez PA-C M17.11 Unilateral primary osteoarthritis, right knee Office Visit 05/25/2021 9:45a [place] Marly Sanchez PA-C M17.11 Unilateral primary osteoarthritis, right knee Office Visit 05/09/2021 10:15a [place] Marly Sanchez PA-C M17.11 Unilateral primary osteoarthritis, right knee Assessments Date Code Description Provider 06/01/2021 M17.11 Unilateral primary osteoarthriti s, right knee Marly L. KIARA Sanchez 05/25/2021 M17.11 Unilateral primary osteoarthriti s, right knee Marly L. KIARA Sanchez 05/09/2021 M17.11 Unilateral primary osteoarthriti s, right knee Marly L. KIARA Sanchez Plan of Treatment Future Appointment(s):* 06/08/2021 2:00 pm - Marly Sanchez PA-C at [place] Functional Status Description No Information Available Mental Status Description No Information Available Referrals Refer to Reason for Referral Status Appt Date Marly Sanchez PA-C 05/23/21 Euflexxa Right Knee per [facility] fax auth is approved, [id number],exp 11/18/21,passed to patient scheduler sw. Created [address] [place] [address] [address] [place] [address] [phone] Ephraim Pandya MD Right knee Euflexxa- approved. Sending t o scheduling. Created [address] [place] [address], [address] [place] [address] [phone]
--- OUTSIDE RECORDS SUMMARY | 2021-07-04 19:24 | CCD | Continuity of Care Document ---
Author Organization Unknown Address Unknown Phone Unavailable Care Team Providers Care Exercise Science Internship Name Role Phone DANYA JETT NP AUTM [phone] Social History Type Date Description Comments Sex Unknown Allergies, Adverse Reactions, Alerts Active Allergies Reaction Severity Comments Date Fioricet With Codeine 2020 Medications Active Medications SIG Qnty Indications Ordering Provide r Date Accu-Chek Gisele Plus Strips Used To Check Blood Sugar Twice Daily DX: E11.9 200units [facility] 03/21/2021 Lidocaine 5% Ointment apply to affected area four times a day 106.32gm [facility] 0 12/12/2020 Entresto 24-26mg Tablets Take One Tablet By Mouth Twice Daily 60tabs Silver [facility] Calcitriol 0.25mcg Capsules Take 1 Capsule By Mouth Daily 90caps Silver [facility] 021 Allopurinol 100mg Tablets take 1 tablet by oral route every day 90taanderson Peterson M[facility] Raloxifene HCL 60mg Tablets Take 1 Tablet By Mouth Daily 90taanderson [facility] 000 Azithromycin 500mg Tablets TK 1 T PO D For 3 Days Unknown Losartan Potassium 100mg Tablets Joceline Ferguson Clopidogrel Bisulfate 75mg Tablets TK 1 T PO qd Unknown Atorvastatin Calcium 20mg Tablets Joceline Ferguson Ranitidine HCL 300mg Tablets Danya Jett Prednisone 5mg Tablets TK 1 T PO qd Unknown Buspirone HCL 10mg Tablets TK 1 T PO bid Unknown Ipratropium [place]/Albuterol Sulfate 0.5-2.5(3)mg/3ML Solution Inhale The Contents Of 1 Vial Via Nebulizer qid Unknown Diltiazem HCL ER Coated Beads 120mg Caps ER 24HR take 1 capsule(120 mg) by mouth every day at bedtime 90caps Silver [facility] Amoxicillin/Clavulanate Potassium 875-125mg Tablets Take 1 Tablet By Mouth Twice Daily as Directed Unknown Azithromycin 250mg Tablets Unknown Glipizide ER 2.5mg Tablets ER 24HR Take 1 Tablet By Mouth Every Day Unknown Methylprednisolone 4mg TBPK Use as Directed - - Start On 08/02/20 Unknown 0 Ventolin HFA 108(90Base) mcg/Act A erosol inhale 2 puffs by mouth every 4 to 6 hours as needed 54units Silver [facility] Albuterol Sulfate (2 .5mg/3ML) 0.083% Nebulizer inhale the contents of 1 vial via nebulizer four times daily 360 units Silver [facility] Ferosul 325(65Fe) mg Tablets Take 1 Tablet By Mouth Twice Daily 180tabs Danya Jett, PEPPER 000 Metoprolol Tartrate 25mg Tablets Unknown Hydrocodone-Acetaminophen 5-325mg Tablets Unknown Dok 100mg Capsules Unknown Magnesium Oxide 400mg Tablets take 1 tablet by oral route once a day 90tabs Erlinda Arriaga, P.C[facility] Folic Acid 1mg Tablets take 1 tablet by mouth once a day 90tabs Silver [facility]. Furosemide 40mg Tablets Mackenzie Mcclellan MD Pantoprazole Sodium 40mg Tablets D R take 1 tablet by oral route once a day 90tabs Erlinda Arriaga, [facility] Metformin HCL 1000mg Tablets Take 1 Tablet By Mouth Twice Daily 180tabs Danya Jett NP 000 Gabapentin 100mg Capsules Take One Tablet By Mouth Twice Daily 180caps Sliver [facility] Januvia 50mg Tablets take one tablet by mouth daily 90tabs Silver [facility] 000 Amiodarone HCL 200mg Tablets Take 1 Tablet By Mouth Every Day 90tabs Silver [facility] Medications Administered in Office Medication SIG Qnty Indications Ordering Provider Date Technetium TC 99M Sestamibi Injection Silver [facility] 02/23/2020 Adminstraton Fee Injection Danya Jett NP 08/03/2007 Immunizations CPT Code Status Date Vaccine Lot # [id number] Given 08/03/2007 Flu Injection Vital Signs Date [...] Date Facility Test Result H/L Range Note CBC W/Automated Diff 04/12/[address] [address] [phone] CBC W/Automated Diff (SEE NOTE) 1 WBC 9.5 10^3/uL 4.2 - 11.0 RBC [...] Lymph 12.4 % Low 25.0 - 40.0 [place] 7.8 % 3.0 - 8.0 Eos 3.5 % 0.0 - 7.0 Baso 0.5 % 0.0 - 2.5 %Ig 2.3 % High 0.0 - 0.0 %NRBC 0.0 % 0.0 - 0.0 #Neut 6.95 10^3/uL High 2.00 - 6.90 #Lymph 1.17 10^3/uL 0.60 - 3.40 #[place] 0.74 10^3/uL 0.00 - 0.90 #Eos 0.33 10^3/uL 0.00 - 0.70 #Baso 0.05 10^3/uL 0.00 - 0.20 #Ig 0.22 10^3/uL High 0.00 - 0.10 #NRBC 0.00 10^3/uL 0.00 - 0.00 Manual Diff NOT INDICATED RBC Morph NOT INDICATED PT/PTT 04/12/[address] [address] [phone] Protime 13.6 seconds 11.0 - 15.5 Inr 1.03 0.93 - 1.23 PTT 27.8 seconds 24.8 - 36.7 2 Laboratory test finding 04/12/2021 [facility] [address] [place] [address] [phone] Troponin T <0.01 NG/ML 0.00 - 0.10 3 Lipase Serum 26 U/L 13 - 60 Magnesium Serum 2.2 mg/dL 1.7 - 2.2 Comprehensive Metabolic Panel 04/12/2021 [facility] [address] [place] [address] [phone] Comprehensive Metabo (SEE NOTE) 4 Sodium 143 mEq/L 134 - 153 Potassium [...] GFR 22 mL/min Afr Amer GFR >60 5 Laboratory test finding 04/12/[address] [address] [phone] Pro-BNP 1469 pg/mL High 0 - 125 TSH Highly Sensitive 5.41 uIU/mL High 0.47 - 5.01 Influenza A And B Rna Probe 04/12/[address] [address] [phone] Influenza A NEGATIVE Normal: Negative Influenza B NEGATIVE Normal: Negative Influenza A Reenter NEGATIVE Normal: Negative Influenza B Reenter NEGATIVE Normal: Negative 6 Urinalysis 04/12/[address] [address] [phone] Urinalysis (SEE NOTE) 7, 8 Source R Color yellow Normal: Yellow Clarity clear Normal: Clear Spec [place] 1.010 1.001 - 1.030 pH 7 5 [...] Coarse Gran 0-1 Abnormal Normal: None Seen Lipid Panel 02/07/2021 [place] [id number] [phone] Triglycerides Level 206 mg/dL High <150 Cholesterol Level 163 mg/dL Normal <200 HDL Cholesterol 41 mg/dL Normal >40 LDL Cholesterol 81 mg/dL Normal <100 Non-HDL-C 122 mg/dL Normal Cholesterol Risk Ratio 3.975 Normal <5 Laboratory test finding 02/07/2021 [place] [id number] [phone] Magnesium Level 2.6 mg/dL High 1.8-2.4 NT-Pro BNP 1098 pg/mL High <125 Comprehensive Metabolic Profil 02/07/[address] [address] [phone] Glucose, Fasting 86 mg/dL Normal 70-100 Blood [...] Normal 3.2-5.2 Albumin/Globulin Ratio 0.9 Low 1.2-2.2 Complete Blood Count 02/07/2021 [place] 3210993 [phone] White Blood Count 8.9 10 Normal 4.0-10.0 [...] 36.0-66.0 Lymph % 13.3 % Low 24.0-44.0 [place] % 8.4 % High 2.0-8.0 Eos % 4.6 % High 0.0-3.0 Baso % 0.7 % Normal 0.0-1.0 Immature Granulocyte % 1.1 % Normal 0-3.0 Nucleated Red Blood Cell % 0.0 % Normal 0-0 Neutrophils # 6.4 10 Normal 1.5-8.5 Lymph # 1.2 10 Low 1.5-5.0 [place] # 0.8 10 Normal 0.0-0.8 Eos # 0.4 10 Normal 0.0-0.5 Baso # 0.1 10 Normal 0.0-0.2 Cardiac Marker Panel 11/30/[address] [address] [phone] CPK Creatine Phosphokinase 64 U/L Normal 26-19 2 CK-MB Value Mass 1.1 NG/ML Normal <3.6 MB/CK Relative Index 1.72 Normal < Or =4 10 Troponin I < 0.02 NG/ML Normal < 0.10 11 Liver Profile 11/30/[address] [address] [phone] Ast/Sgot 15 U/L Normal 7-37 Alt/SGPT 17 U/L Normal 12-78 Alkaline Phosphatase 63 U/L Normal 45-117 Bilirubin,Total 0.3 mg/dL Normal 0.2-1.0 Bilirubin,Direct < 0.1 mg/dL Normal 0.0-0.2 Total Protein 6.8 GM/DL Normal 6.4-8.2 Albumin 3.2 GM/DL Normal 3.2-5.2 Albumin/Globulin Ratio 0.9 Low 1.2-2.2 Laboratory test finding 11/30/2020 [place] [address] [place] [address] [phone] Lipase 104 U/L Normal 73-393 Istat Chem8+ Panel 11/30/[address] [address] [phone] iSTAT HCT 29.0 % Low 38.0-51.0 iSTAT Glucose 86 mg/dL Normal 70-105 iSTAT Sodium 142 mEq/L Normal 136-145 iSTAT Potassium 4.8 mEq/L Normal 3.5-5.1 iSTAT CA++ 4.6 mg/dL Normal 4.5-5.3 iSTAT Chloride 103 mEq/L Normal 98-109 iSTAT Co2 31.0 MM/L High 23.0-27.0 iSTAT BUN 46 mg/dL High 8-26 iSTAT Creatinine 3.0 mg/dL High 0.6-1.3 CBC With Differential 11/30/[address] [address] [phone] White Blood Count 13.7 10 High 4.0-10.0 Red Blood Count 3.05 10 Low 4.00-5.40 Hemoglobin 9.7 g/dL Low 12.0-15.5 Hematocrit 32.3 % Low 36.0-47.0 Mean Corpuscular Volume 105.9 fl High 80.0-96.0 Mean Corpuscular Hemoglobin 31.8 pg Normal 27.0-33.0 Mean Corpuscular HGB Conc 30.0 g/dL Low 32.0-36.5 Red Cell Distribution Width 15.1 % High 11.5-14.5 Platelet Count, Automated 207 10 Normal 150-450 Neutrophils % 78.5 % High 36.0-66.0 Lymph % 9.0 % Low 24.0-44.0 [place] % 8.0 % Normal 2.0-8.0 Eos % 3.4 % High 0.0-3.0 Baso % 0.4 % Normal 0.0-1.0 Immature Granulocyte % 0.7 % Normal 0-3.0 Nucleated Red Blood Cell % 0.0 % Normal 0-0 Neutrophils # 10.8 10 High 1.5-8.5 Lymph # 1.2 10 Low 1.5-5.0 [place] # 1.1 10 High 0.0-0.8 Eos # 0.5 10 Normal 0.0-0.5 Baso # 0.1 10 Normal 0.0-0.2 Laboratory test finding [facility]30[facility] [address] [place], [place] [id number] [phone] NT-Pro BNP 1279 pg/mL High <125 Urinalysis 11/27/[address] [address] [phone] Urinalysis (SEE NOTE) 12 Source R Color yellow Normal: Yellow Clarity clear Normal: Clear Spec [place] 1.020 1.001 - 1.030 pH 5 5 - 9 Glucose NORM Normal: Negative Bilirubin NEG Normal: Negative Ketone NEG Normal: Negative Protein NEG Normal: Negative Nitrite NEG Normal: Negative Blood NEG Normal: Negative Leuk Est NEG Normal: Negative Urobilinogen NOR less than 1.0 mg/dL Microscopic Not Indicate 1 COMPLETE BLOOD COUNT 2 \\BLDo\\INR INTERPRETATION\\BLD x\\ Therapeutic range for Coumadin and related oral anticoagulants. -International Normalized Ratio (INR): 2 .0 - 3.0 for Venous Thrombosis, Pulmonary Embolus, Tissue heart valves, Acute CT Atrial Fibrillation, Valvular heart disease and recurrent Systemic Embolism. -International Normalized Ratio (INR): 2 .5 - 3.5 for Mechanical Prosthetic valve. 3 TROPONIN T 0.1 ng/ml Recommended as the clinical th reshold value for Troponin T. 4 COMPREHENSIVE METABOLIC PANE L 5 Male GFR Interprentation 20-49 yrs >60 mL/min Normal 50-59 yrs >56 mL/min Normal 60-69 yrs >49 mL/min Normal 70-79yrs >42 mL/min Normal 80 and above >35 mL/min Normal Female GFR Interpretation 20-39 yrs >60 mL/min Normal 40-49 yrs >58 mL/min Normal 50-59 yrs >51 mL/min Normal 60-69 yrs >45 mL/min Normal 70-79 yrs >39 mL/min Normal 80 and above >32 mL/min Normal 6 PROCEDURAL CONTROL VALID KIT LOT # _[id number] 04/12/21.1322.MRW. KIT EXP DATE _09.07.22 04/12/21.1322.MRW. The Influenza A & B assay is a rapid molecular in vitro diagnostic test utilizing an isothermal nucleic acid amplification technology for the qualitative detection of influenza A and B viral RNA. Negative results do not preclude influenza virus infection and should not be used as the sole basis for diagnosis, treatment or other patient management decisions. 7 SOURCE: Clean Catch 8 URINALYSIS 9 Units are mL/min/1.73 m2 Chronic Kidney Disease Staging per NKF: Stage I & II GFR >=60 Normal to Mildly Decreased Stage III GFR 30-59 Moderately Decreased Stage IV GFR 15-29 Severely Decreased Stage V GFR <15 Very Little GFR Left ESRD GFR <15 on [employer] 10 DIAGNOSIS CRITERIA MMB ng/ml Relative Index (RI) NON-AMI < or = 5 N/A FISH ZONE > 5 < or = 4 AMI > 5 > 4 11 Troponin I Reference Interva l for Siemens [place] LOCI: 99th Percentile= 0.00-0.045 ng/ml Risk Stratification: <= 0.10 ng/ml Decreased Risk for Adverse Clinical Events. 0.10-1.50 ng/ml Increased Risk for Adv erse Clinical Events. Evaluation of additional criterion and/or repeat testing in 2-6 hours is suggested to rule out myocardial damage. >= 1.50 ng/ml Indicative of Myocardial Injury. 12 URINALYSIS Procedures Date Code Description Status 12/12/2020 48110 Program Pacemaker Multip Lead Co mpleted 10/30/2020 275[address] Office/Outpatient Established Lo w MDM 20-29 Min Completed 10/30/2020 08589 EKG Completed Encounters Type Date Location Provider Dx Diagnosis Office Visit 10/30/2020 10:[facility]a [facility] Danya Jett NP I 10 Essential (primary) hypertension J44.9 Chronic obstructive pulmonar y disease, unspecified E11.9 Type 2 diabetes mellitus wit hout complications I48.0 Paroxysmal atrial fibrillati on Assessments Date Code Description Provider 12/12/2020 I48.0 Paroxysmal atrial fibrillation [facility]bin [facility] 12/12/2020 Z95.0 Presence of cardiac pacemaker Maddie [facility] 10/31/2020 E78.5 Hyperlipidemia Danya Jett NP 10/31/2020 I10 Essential (primary) hypertension Danya Jett NP 10/31/2020 E11.9 Type 2 diabetes mellitus without complications Danya Jett NP 10/31/2020 R25.1 Massive tremor Danya Jett NP 10/31/2020 I50.20 Unspecified systolic (congestive ) heart failure Danya Jett NP 10/31/2020 J44.9 Chronic obstructive pulmonary di sease, unspecified Danya Jett NP 10/30/2020 I10 Essential (primary) hypertension Danya Jett NP 10/30/2020 J44.9 Chronic obstructive pulmonary di sease, unspecified Danya Jett NP 10/30/2020 E11.9 Type 2 diabetes mellitus without complications Danya Jett NP 10/30/2020 I48.0 Paroxysmal atrial fibrillation L loren Jett NP Plan of Treatment 10/31/2020 - Danya Jett [...] of bowel or bladder control * Referral:* [facility], Neurology * I50.20 Unspecified systolic (congestive) heart failure* Comments:* Continue Entresto, 24-26 i po bid * Follow up:* f/u 4 weeks * J44.9 Chronic obstructive pulmonary disease, unspecified* Comments:* Cont 02@2l/min, cont nebulizor, states breathing at baseline no increased sob Referrals Refer to Reason for Referral Status Appt Date [facility] Please eval and treat Patien t with 2 episodes of uncontrolled shaking of arms and legs,no LOC no Loss of bowel or bladder control. Created [address] [place] [address] [phone]
--- OUTSIDE RECORDS SUMMARY | 2021-07-04 19:24 | CCD | Continuity of Care Document ---
Author Author Zita QUINONES M.D. Organization Unknown Address [address] [place] [address] Phone [phone] Care Team Providers Care Sap Architect Name Role Phone Danya Jett AUTM [phone] Joceline Ferguson M.D. AUTM [phone] Problems Active Problems Provider Date Abdominal aortic aneurysm without rupture Erlinda Wong Onset: 02/04/2020 Acute myocardial infarction Angel Quinones M.D. Onset: 01/07 Essential hypertension Angel Quinones M.D. Onset: 0 Sleep disorder Angel Quinones M.D. Onset: 02/04/2020 Social History Type Date Description Comments Sex Unknown Tobacco Use Reviewed: 02/15/20 currently smokes 1/2 Pack Xiomy ly x 40 years Smoking Status Reviewed: 02/15/20 currently smokes 1/2 Pack Xiomy ly x 40 years ETOH Use Denies alcohol use Tobacco Use Start: Unknown End: Patient is a former smoker Allergies, Adverse Reactions, Alerts Active Allergies Reaction Severity Comments Date Codeine ? 02/04/2020 Medications Active Medications SIG Qnty Indications Ordering Provide r Date Vitamin D (Cholecalciferol) 50mcg (1999 Ut) Capsules 1 by mouth every day Unknown 000 Januvia 50mg Tablets every da y Unknown Glipizide ER 2.5mg Tablets ER 24HR every day Unknown Allopurinol 300mg Tablets espinoza ry day Unknown Clopidogrel Bisulfate 75mg Tablets TK 1 T PO qd Unknown Atorvastatin Calcium 20mg Tablets every day Unknown Raloxifene HCL 60mg Tablets e very day Unknown Furosemide 40mg Tablets every day Unknown Ferrous Sulfate 325(65Fe) mg Table ts 2 by mouth every day Unknown Pantoprazole Sodium 40mg Tablets D R every day Unknown Losartan Potassium 100mg Tablets every day Unknown Vitamin D-3 25mcg (1000 Ut) Capsul es 1 by mouth every day Unknown Metformin HCL 1000mg Tablets twice a day Unknown Aspirin Adult 325mg Tablets 1 by mouth every day Unknown Vitamin B12 500mcg Tablets 1 by mouth every day Unknown Calcium 600 High Potency 600mg Tab lets 2 Tabs qd Unknown Ipratropium [place]/Albuterol Sulfate 0.5-2.5(3)mg/3ML Solution 1 vial via nebulizer four times a day as needed Unknown Ventolin HFA 108(90Base) mcg/Act A erosol as needed Unknown Immunizations Description No Information Available Vital Signs Date Vital Result Comment 03/23/2021 1:33pm BP Systolic Left Arm 180 mmHg BP Diastolic Left Arm 80 mmHg Heart Rate 100 /min Body Temperature 90.0 F Height 63 inches 5'3" Weight 169.00 lb Weight 76.658 kg BMI (Body Mass Index) 29.9 kg/m2 02/04/2020 1:16pm BP Systolic Right Arm 180 mmHg BP Diastolic Right Arm 80 mmHg BP Systolic Left Arm 180 mmHg BP Diastolic Left Arm 80 mmHg Heart Rate 76 /min Height 63 inches 5'3" Weight 145.00 lb Weight 65.772 kg BMI (Body Mass Index) 25.7 kg/m2 Results Description No Information Available Procedures Description No Information Available Medical Devices Description No Information Available Encounters Type Date Location Provider Dx Diagnosis Office Visit 03/23/2021 2:45p Main Office Angel Quinones M.D. 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
--- OUTSIDE RECORDS SUMMARY | 2021-07-04 19:24 | CCD | Continuity of Care Document ---
Author Organization Unknown Address Unknown Phone Unavailable Care Team Providers Care Unionmelt Operator Name Role Phone DANYA JETT NP AUTM [phone] Social History Type Date Description Comments Sex [...] Tablets Joceline Ferguson Ranitidine HCL 300mg Tablets aDnya Jett Prednisone 5mg Tablets TK 1 T PO qd Unknown Buspirone HCL 10mg Tablets TK 1 T PO bid Unknown Ipratropium [place]/Albuterol Sulfate 0.5-2.5(3)mg/3ML Solution Inhale The Contents Of [...] By Mouth Twice Daily 180caps Silver [facility] Januvia 50mg Tablets take [...] CPT Code Status Date Vaccine Lot # [id number] Given 08/03/2007 Flu Injection Vital Signs Date [...] H/L Range Note CBC W/Automated Diff 04/12/[address] [address] [phone] CBC W/Automated Diff (SEE NOTE) 1 WBC [...] Lymph 12.4 % Low 25.0 - 40.0 [place] 7.8 % 3.0 - 8.0 Eos 3.5 % 0.0 - 7.0 Baso 0.5 % 0.0 - 2.5 %Ig 2.3 % High 0.0 - 0.0 %NRBC 0.0 % 0.0 - 0.0 #Neut 6.95 10^3/uL High 2.00 - 6.90 #Lymph 1.17 10^3/uL 0.60 - 3.40 #[place] 0.74 10^3/uL 0.00 - 0.90 #Eos 0.33 10^3/uL 0.00 - 0.70 #Baso 0.05 10^3/uL 0.00 - 0.20 #Ig 0.22 10^3/uL High 0.00 - 0.10 #NRBC 0.00 10^3/uL 0.00 - 0.00 Manual Diff NOT INDICATED RBC Morph NOT INDICATED PT/PTT 04/12/[address] [address] [phone] Protime 13.6 seconds 11.0 - 15.5 Inr 1.03 0.93 - 1.23 PTT 27.8 seconds 24.8 - 36.7 2 Laboratory test finding 04/12/2021 [facility] [address] [place] [address] [phone] Troponin T <0.01 NG/ML 0.00 - 0.10 3 Lipase Serum 26 U/L 13 - 60 Magnesium Serum 2.2 mg/dL 1.7 - 2.2 Comprehensive Metabolic Panel 04/12/2021 [facility] [address] [place] [address] [phone] Comprehensive Metabo (SEE NOTE) 4 Sodium 143 [...] GFR >60 5 Laboratory test finding 04/12/[address] [address] [phone] Pro-BNP 1469 pg/mL High 0 - 125 TSH Highly Sensitive 5.41 uIU/mL High 0.47 - 5.01 Influenza A And B Rna Probe 04/12/[address] [address] [phone] Influenza A NEGATIVE Normal: Negative Influenza B NEGATIVE Normal: Negative Influenza A Reenter NEGATIVE Normal: Negative Influenza B Reenter NEGATIVE Normal: Negative 6 Urinalysis 04/12/[address] [address] [phone] Urinalysis (SEE NOTE) 7, 8 Source R Color yellow Normal: Yellow Clarity clear Normal: Clear Spec [place] 1.010 1.001 - 1.030 pH 7 5 [...] Abnormal Normal: None Seen Lipid Panel 02/07/2021 [place] [id number] [phone] Triglycerides Level 206 mg/dL High <150 Cholesterol Level 163 mg/dL Normal <200 HDL Cholesterol 41 mg/dL Normal >40 LDL Cholesterol 81 mg/dL Normal <100 Non-HDL-C 122 mg/dL Normal Cholesterol Risk Ratio 3.975 Normal <5 Laboratory test finding 02/07/2021 [place] [id number] [phone] Magnesium Level 2.6 mg/dL High 1.8-2.4 NT-Pro BNP 1098 pg/mL High <125 Comprehensive Metabolic Profil 02/07/[address] [address] [phone] Glucose, Fasting 86 mg/dL Normal 70-100 Blood [...] 0.9 Low 1.2-2.2 Complete Blood Count 02/07/2021 [place] 9618458 [phone] White Blood Count 8.9 10 Normal 4.0-10.0 [...] 36.0-66.0 Lymph % 13.3 % Low 24.0-44.0 [place] % 8.4 % High 2.0-8.0 Eos % 4.6 % High 0.0-3.0 Baso % 0.7 % Normal 0.0-1.0 Immature Granulocyte % 1.1 % Normal 0-3.0 Nucleated Red Blood Cell % 0.0 % Normal 0-0 Neutrophils # 6.4 10 Normal 1.5-8.5 Lymph # 1.2 10 Low 1.5-5.0 [place] # 0.8 10 Normal 0.0-0.8 Eos # 0.4 10 Normal 0.0-0.5 Baso # 0.1 10 Normal 0.0-0.2 Cardiac Marker Panel 11/30/[address] [address] [phone] CPK Creatine Phosphokinase 64 U/L Normal 26-19 2 CK-MB Value Mass 1.1 NG/ML Normal <3.6 MB/CK Relative Index 1.72 Normal < Or =4 10 Troponin I < 0.02 NG/ML Normal < 0.10 11 Liver Profile 11/30/[address] [address] [phone] Ast/Sgot 15 U/L Normal 7-37 Alt/SGPT 17 U/L Normal 12-78 Alkaline Phosphatase 63 U/L Normal 45-117 Bilirubin,Total 0.3 mg/dL Normal 0.2-1.0 Bilirubin,Direct < 0.1 mg/dL Normal 0.0-0.2 Total Protein 6.8 GM/DL Normal 6.4-8.2 Albumin 3.2 GM/DL Normal 3.2-5.2 Albumin/Globulin Ratio 0.9 Low 1.2-2.2 Laboratory test finding 11/30/2020 [place] [address] [place] [address] [phone] Lipase 104 U/L Normal 73-393 Istat Chem8+ Panel 11/30/[address] [address] [phone] iSTAT HCT 29.0 % Low 38.0-51.0 iSTAT Glucose 86 mg/dL Normal 70-105 iSTAT Sodium 142 mEq/L Normal 136-145 iSTAT Potassium 4.8 mEq/L Normal 3.5-5.1 iSTAT CA++ 4.6 mg/dL Normal 4.5-5.3 iSTAT Chloride 103 mEq/L Normal 98-109 iSTAT Co2 31.0 MM/L High 23.0-27.0 iSTAT BUN 46 mg/dL High 8-26 iSTAT Creatinine 3.0 mg/dL High 0.6-1.3 CBC With Differential 11/30/[address] [address] [phone] White Blood Count 13.7 10 High 4.0-10.0 [...] 36.0-66.0 Lymph % 9.0 % Low 24.0-44.0 [place] % 8.0 % Normal 2.0-8.0 Eos % 3.4 % High 0.0-3.0 Baso % 0.4 % Normal 0.0-1.0 Immature Granulocyte % 0.7 % Normal 0-3.0 Nucleated Red Blood Cell % 0.0 % Normal 0-0 Neutrophils # 10.8 10 High 1.5-8.5 Lymph # 1.2 10 Low 1.5-5.0 [place] # 1.1 10 High 0.0-0.8 Eos # 0.5 10 Normal 0.0-0.5 Baso # 0.1 10 Normal 0.0-0.2 Laboratory test finding 11/30/2020 [facility] [address] [place], [place] 1108053 [phone] NT-Pro BNP 1279 pg/mL High <125 Urinalysis 11/27/[address] [address] [phone] Urinalysis (SEE NOTE) 12 Source R Color yellow Normal: Yellow Clarity clear Normal: Clear Spec [place] 1.020 1.001 - 1.030 pH 5 5 [...] Thrombosis, Pulmonary Embolus, Tissue heart valves, Acute [place] Atrial Fibrillation, Valvular heart disease and recurrent [...] Little GFR Left ESRD GFR <15 on [employer] 10 DIAGNOSIS CRITERIA MMB ng/ml Relative Index (RI) NON-AMI < or = 5 N/A FISH ZONE > 5 < or = 4 AMI > 5 > 4 11 Troponin I Reference Interva l for Siemens [place] LOCI: 99th Percentile= 0.00-0.045 ng/ml Risk Stratification: <= 0.10 ng/ml Decreased Risk for Adverse Clinical Events. 0.10-1.50 ng/ml Increased Risk for Adv erse Clinical Events. Evaluation of additional criterion and/or repeat testing in 2-6 hours is suggested to rule out myocardial damage. >= 1.50 ng/ml Indicative of Myocardial Injury. 12 URINALYSIS Procedures Date Code Description Status 12/12/2020 67082 Program Pacemaker Multip Lead Co mpleted 10/30/2020 [address] Office/Outpatient Established Lo w MDM 20-29 Min Completed 10/30/2020 92058 EKG Completed Encounters Type Date Location Provider [...] of bowel or bladder control * Referral:* [facility], Neurology * I50.20 Unspecified systolic (congestive) heart failure* Comments:* Continue Entresto, 24-26 i po bid * Follow up:* f/u 4 weeks * J44.9 Chronic obstructive pulmonary disease, unspecified* Comments:* Cont 02@2l/min, cont nebulizor, states breathing at baseline no increased sob Referrals Refer to Reason for Referral Status Appt Date [facility] Please eval and treat Patien t with 2 episodes of uncontrolled shaking of arms and legs,no LOC no Loss of bowel or bladder control. Created [address] [place] [address] [phone]
--- OUTSIDE RECORDS SUMMARY | 2021-07-04 19:24 | CCD | Continuity of Care Document ---
Author Organization Unknown Address Unknown Phone Unavailable Care Team Providers Care Apartment Assistant Manager Name Role Phone DANYA JETT NP AUTM [phone] Social History Type Date Description Comments Sex Unknown Allergies, Adverse Reactions, Alerts Active Allergies Criticality [...] oral route every day 90tabs [facility] Raloxifene HCL 60mg Tablets Take 1 Tablet By Mouth Daily 90tabs [facility] 000 Azithromycin 500mg Tablets TK 1 T PO D For 3 Days Unknown Losartan Potassium 100mg Tablets Joceline Ferguson Clopidogrel Bisulfate 75mg Tablets TK 1 T PO qd Unknown Atorvastatin Calcium 20mg Tablets Take One Tablet By Mouth Daily 90tabs [facility] 0 Ranitidine HCL 300mg Tablets Danya Jett Prednisone 5mg Tablets TK 1 T PO qd Unknown Buspirone HCL 10mg Tablets TK 1 T PO bid Unknown Ipratropium [place]/Albuterol Sulfate 0.5-2.5(3)mg/3ML Solution Inhale The Contents Of [...] mouth daily 90tabs Silver [facility] Amiodarone HCL 200mg Tablets Take 1 Tablet By Mouth Every Day 90tabs Silver [facility] Medications Administered in Office Medication SIG Qnty Indications Ordering Provider Date Technetium TC 99M Sestamibi Injection Silver [facility] 02/23/2020 Adminstraton Fee Injection Danya Jett NP 08/03/2007 Immunizations CPT Code Status Date Vaccine Lot # [id number] Given 08/03/2007 Flu Injection Vital Signs Date [...] H/L Range Note CBC W/Automated Diff 04/12/[address] [address] [phone] CBC W/Automated Diff (SEE NOTE) 1 WBC [...] Lymph 12.4 % Low 25.0 - 40.0 [place] 7.8 % 3.0 - 8.0 Eos 3.5 % 0.0 - 7.0 Baso 0.5 % 0.0 - 2.5 %Ig 2.3 % High 0.0 - 0.0 %NRBC 0.0 % 0.0 - 0.0 #Neut 6.95 10^3/uL High 2.00 - 6.90 #Lymph 1.17 10^3/uL 0.60 - 3.40 #[place] 0.74 10^3/uL 0.00 - 0.90 #Eos 0.33 10^3/uL 0.00 - 0.70 #Baso 0.05 10^3/uL 0.00 - 0.20 #Ig 0.22 10^3/uL High 0.00 - 0.10 #NRBC 0.00 10^3/uL 0.00 - 0.00 Manual Diff NOT INDICATED RBC Morph NOT INDICATED PT/PTT 04/12/2021 [place] [address] [phone] Protime 13.6 seconds 11.0 - 15.5 Inr 1.03 0.93 - 1.23 PTT 27.8 seconds 24.8 - 36.7 2 Laboratory test finding 04/12/2021 [facility] [address] [place] [address] [phone] Troponin T <0.01 NG/ML 0.00 - 0.10 3 Lipase Serum 26 U/L 13 - 60 Magnesium Serum 2.2 mg/dL 1.7 - 2.2 Comprehensive Metabolic Panel 04/12/2021 [facility] [address] [place] [address] [phone] Comprehensive Metabo (SEE NOTE) 4 Sodium 143 [...] GFR >60 5 Laboratory test finding 04/12/[address] [address] [phone] Pro-BNP 1469 pg/mL High 0 - 125 TSH Highly Sensitive 5.41 uIU/mL High 0.47 - 5.01 Influenza A And B Rna Probe 04/12/[address] [address] [phone] Influenza A NEGATIVE Normal: Negative Influenza B NEGATIVE Normal: Negative Influenza A [place]enter NEGATIVE Normal: Negative Influenza B [place] NEGATIVE Normal: Negative 6 Urinalysis 04/12/[address] [address] [phone] Urinalysis (SEE NOTE) 7, 8 Source R Color yellow Normal: Yellow Clarity clear Normal: Clear Spec [place] 1.010 1.001 - 1.030 pH 7 5 [...] Abnormal Normal: None Seen Lipid Panel 02/07/[address] [address] [phone] Triglycerides Level 206 mg/dL High <150 Cholesterol Level 163 mg/dL Normal <200 HDL Cholesterol 41 mg/dL Normal >40 LDL Cholesterol 81 mg/dL Normal <100 Non-HDL-C 122 mg/dL Normal Cholesterol Risk Ratio 3.975 Normal <5 Laboratory test finding 02/07/[address] [address] [phone] Magnesium Level 2.6 mg/dL High 1.8-2.4 NT-Pro BNP 1098 pg/mL High <125 Comprehensive Metabolic Profil 02/07/[address] [address] [phone] Glucose, Fasting 86 mg/dL Normal 70-100 Blood [...] 0.9 Low 1.2-2.2 Complete Blood Count 02/07/[address] [address] [phone] White Blood Count 8.9 10 Normal 4.0-10.0 [...] 36.0-66.0 Lymph % 13.3 % Low 24.0-44.0 [place] % 8.4 % High 2.0-8.0 Eos % 4.6 % High 0.0-3.0 Baso % 0.7 % Normal 0.0-1.0 Immature Granulocyte % 1.1 % Normal 0-3.0 Nucleated Red Blood Cell % 0.0 % Normal 0-0 Neutrophils # 6.4 10 Normal 1.5-8.5 Lymph # 1.2 10 Low 1.5-5.0 [place] # 0.8 10 Normal 0.0-0.8 Eos # 0.4 10 Normal 0.0-0.5 Baso # 0.1 10 Normal 0.0-0.2 Cardiac Marker Panel 11/30/[address] [address] [phone] CPK Creatine Phosphokinase 64 U/L Normal 26-19 2 CK-MB Value Mass 1.1 NG/ML Normal <3.6 MB/CK Relative Index 1.72 Normal < Or =4 10 Troponin I < 0.02 NG/ML Normal < 0.10 11 Liver Profile 11/30/[address] [address] [phone] Ast/Sgot 15 U/L Normal 7-37 Alt/SGPT 17 U/L Normal 12-78 Alkaline Phosphatase 63 U/L Normal 45-117 Bilirubin,Total 0.3 mg/dL Normal 0.2-1.0 Bilirubin,Direct < 0.1 mg/dL Normal 0.0-0.2 Total Protein 6.8 GM/DL Normal 6.4-8.2 Albumin 3.2 GM/DL Normal 3.2-5.2 Albumin/Globulin Ratio 0.9 Low 1.2-2.2 Laboratory test finding 11/30/[address] [address] [phone] Lipase 104 U/L Normal 73-393 Istat Chem8+ Panel 11/30/2020 [place] [id number] [phone] iSTAT HCT 29.0 % Low 38.0-51.0 iSTAT Glucose 86 mg/dL Normal 70-105 iSTAT Sodium 142 mEq/L Normal 136-145 iSTAT Potassium 4.8 mEq/L Normal 3.5-5.1 iSTAT CA++ 4.6 mg/dL Normal 4.5-5.3 iSTAT Chloride 103 mEq/L Normal 98-109 iSTAT Co2 31.0 MM/L High 23.0-27.0 iSTAT BUN 46 mg/dL High 8-26 iSTAT Creatinine 3.0 mg/dL High 0.6-1.3 CBC With Differential 11/30/[address] [address] [phone] White Blood Count 13.7 10 High 4.0-10.0 [...] 36.0-66.0 Lymph % 9.0 % Low 24.0-44.0 [place] % 8.0 % Normal 2.0-8.0 Eos % 3.4 % High 0.0-3.0 Baso % 0.4 % Normal 0.0-1.0 Immature Granulocyte % 0.7 % Normal 0-3.0 Nucleated Red Blood Cell % 0.0 % Normal 0-0 Neutrophils # 10.8 10 High 1.5-8.5 Lymph # 1.2 10 Low 1.5-5.0 [place] # 1.1 10 High 0.0-0.8 Eos # 0.5 10 Normal 0.0-0.5 Baso # 0.1 10 Normal 0.0-0.2 Laboratory test finding 11/30/2020 [facility] [address] [place], [place] [address] [phone] NT-Pro BNP 1279 pg/mL High <125 Urinalysis 11/27/[address] [address] [phone] Urinalysis (SEE NOTE) 12 Source R Color yellow Normal: Yellow Clarity clear Normal: Clear Spec [place] 1.020 1.001 - 1.030 pH 5 5 [...] Thrombosis, Pulmonary Embolus, Tissue heart valves, Acute [place] Atrial Fibrillation, Valvular heart disease and recurrent [...] PROCEDURAL CONTROL VALID KIT LOT # [id number] 04/12/21.1321.MRW. KIT EXP DATE _09.07.22 04/12/21.MRW. The Influenza [...] Little GFR Left ESRD GFR <15 on RENAL DIALYSIS TECHNICIAN 10 DIAGNOSIS CRITERIA MMB ng/ml Relative Index (RI) NON-AMI < or = 5 N/A FISH ZONE > 5 < or = 4 AMI > 5 > 4 11 Troponin I Reference Interva l for [employer] LOCI: 99th Percentile= 0.00-0.045 ng/ml Risk Stratification: <= 0.10 ng/ml Decreased Risk for Adverse Clinical Events. 0.10-1.50 ng/ml Increased Risk for Adv erse Clinical Events. Evaluation of additional criterion and/or repeat testing in 2-6 hours is suggested to rule out myocardial damage. >= 1.50 ng/ml Indicative of Myocardial Injury. 12 URINALYSIS Procedures Date Code Description Status 12/12/2020 26255 Program Pacemaker Multip Lead Co mpleted 10/30/2020 15654 Office/Outpatient Established Lo w MDM 20-29 Min Completed 10/30/2020 92258 EKG Completed Encounters Type Date Location Provider Dx Diagnosis Office Visit 10/30/2020 10[facility]a [facility] Danya Jett NP I 10 Essential (primary) hypertension J44.9 Chronic obstructive pulmonar y disease, unspecified E11.9 Type 2 diabetes mellitus wit hout complications I48.0 Paroxysmal atrial fibrillati on Assessments Date Code Description Provider 12/12/2020 I48.0 Paroxysmal atrial fibrillation [facility]bin [facility] 12/12/2020 Z95.0 Presence of cardiac pacemaker Mi caio [facility] 10/31/2020 E78.5 Hyperlipidemia Danya [...] of bowel or bladder control * Referral:* [facility]rology * I50.20 Unspecified systolic (congestive) heart failure* Comments:* Continue Entresto, 24-26 i po bid * Follow up:* f/u 4 weeks * J44.9 Chronic obstructive pulmonary disease, unspecified* Comments:* Cont 02@2l/min, cont nebulizor, states breathing at baseline no increased sob Referrals Refer to Reason for Referral Status Appt Date [facility] Neurology Please eval and treat Patien t with 2 episodes of uncontrolled shaking of arms and legs,no LOC no Loss of bowel or bladder control. Created [address] [place] [address] [phone]
--- OUTSIDE RECORDS SUMMARY | 2021-07-04 19:24 | CCD | Continuity of Care Document ---
Author Author Zita LUI ANP Organization Unknown Address [address] [address] Phone [phone] Care Team Providers Care Waterproof Material Folder Name Role Phone Danya Jett AUTM [phone] John Rey DO AUTM [phone] Joceline Ferguson M.D. AUTM [phone] AUTM Unavailable AUTM Unavailable Problems Active Problems Provider Date Overweight Deng Jacobsen D.O. Onset: 2 Tobacco user Priscilla Lui A.NRenetta Onset: 03/21/2011 Hypoxemia Priscilla Lui A.NRenetta Onset: 03/21/2011 Essential hypertension Priscilla Lui A.N.Adriane Onset: 03/21/2011 Obstructive sleep apnea syndrome Priscilla Lui A.N.Adriane Onset: 11/21/2010 Emphysematous bronchitis Priscilla Lui A.NRenetta Onset: 11/22/19 11 Chronic hypercapnic respiratory failure [...] day Pt. hasn't smoked since March 2020 Allergies, Adverse Reactions, Alerts Active Allergies Reaction Severity Comments Date Codeine nausea 04/09/2010 Phenytoin nausea 04/09/2010 Medications Active Medications SIG Qnty [...] twice a day Unknown Vitamin D (Ergocalciferol) 17240Fsmg Capsules 1 qd Unknown Pantoprazole Sodium 40mg Tablets D R daily -- one tablet in morning 1/2 hour before breakfast Unknown Raloxifene HCL 60mg Tablets 1 qd Unknown Vitamin B12 600mcg Tablets ER 1 by mouth every day Unknown Ipratropium [place] 0.03% Solution one nasal spray each nostril [...] 3 Years Of Age Or Older (Flulaval) [address] Given 06/20/2010 Influenza Virus Split 3 Yrs And Above For Intramuscular Use Vital Signs Date Vital Result Comment 04/17/2021 9:52am BP Systolic 122 mmHg BP Diastolic 70 mmHg Heart Rate 97 /min O2 % BldC Oximetry 933 % Height 63 inches 5'3" Weight 186.00 lb BMI (Body Mass Index) 32.9 kg/m2 [place] Body Weight 115 lb Weight 84.370 kg BSA (Body Surface Area) 1.87 m2 09/13/2019 10:55am Height 63 inches 5'3" Weight 135.00 lb BMI (Body Mass Index) 23.9 kg/m2 [place] Body Weight 115 lb Weight 61.236 kg BSA (Body Surface Area) 1.64 m2 Results Description No Information Available Procedures Description No Information Available Medical Devices Description No Information Available Encounters Description No Information Available Assessments Date Code Description Provider 04/17/2021 J44.9 Chronic obstructive pulmonary di sease, unspecified STACI Shi 04/17/2021 R91.8 Other nonspecific abnormal findi ng of lung field STACI Shi 04/17/2021 Z87.891 Personal history of nicotine dep endence STACI Shi 04/17/2021 J96.12 Chronic respiratory failure with hypercapnia STACI Shi 04/17/2021 G47.33 Obstructive sleep apnea (adult) (pediatric) STACI Shi Plan of Treatment Future Appointment(s):* 11/01/2021 1:30 pm - STACI Shi at [facility] Pulmonary/Thoracic * 06/06/2021 12:30 pm - STACI Shi at [facility] Pulmonary/Thoracic 04/17/2021 - STACI Shi* J44.9 Chronic obstructive pulmonary disease, unspecified * R91.8 Other nonspecific abnormal finding of lung field * Z87.891 Personal history of nicotine dependence * J96.12 Chronic respiratory failure with hypercapnia * G47.33 Obstructive sleep apnea (adult) (pediatric) * * New Medication:* Breo Ellipta 200-25 mcg/Inh * New Labs:* FVL/[place], Ordered: 04/17/21 * FVL/[place], Scheduled: 06/06/21 * Follow up:* Follow up 6-8 weeks with fvl/spirometry. Follow up [address] and FVL. Functional Status Description No Information Available Mental Status Description No Information Available Referrals Refer to Reason for Referral Status Appt Date Priscilla Lui A.N.P. COPD Scheduled 04/17/2021 [facility] [address] [place], [place] [address] [phone]
--- OUTSIDE RECORDS SUMMARY | 2021-07-04 19:24 | CCD | Continuity of Care Document ---
Author Author Zita SANCHEZ PA-C Organization Unknown Address [address] [place] [address] Phone [phone] Problems Active Problems Provider Date Essential hypertension [...] SIG Qnty Indications Ordering Provide r Date Ipratropium [place] 0.02% Solution Ephraim Pandya MD 11/10/2019 Euflexxa 20mg/2ML Soln Prefill Syr zaki right knee #1 ked/lmk 07/12/19 right knee #2 ked/cp 07/19/19 RT knee #3 07/26/19 louied/le Ephraim Pandya MD 07/12/2019 Atorvastatin Calcium 20mg Tablets 1 by mouth every day Unknown Calcium 600+D3 [id number] Tablets Unknown Vitamin D3 Maximum Strength 5000Unit Capsules Unknown Furosemide 40mg Tablets 1 by mouth every day Unknown Metformin HCL ER (Mod) 1000mg Tablets ER 24HR Unknown Ranitidine HCL 300mg Capsules Unknown Vitamin B12 100mcg Tablets 1 by mouth every day Unknown Ventolin HFA 108(90Base) mcg/Act A erosol Unknown Ipratropium [place] 0.02% Solution Unknown Aspirin Adult 325mg Tablets [...] Information Available Procedures Date Code Description Status 05/09/2021 48444 Office/Outpatient Established Lo w MDM 20-29 Min Completed 05/09/202158051 Inject/Drain Joint/Bursa Major C ompleted 11/16/2020 83452 Office/Outpatient Established Mo d MDM 30-39 Min Completed 11/16/2020 05925 X-Ray Knee Complete W/Obliques & Tunnel And/Or Standing Views Completed 11/16/202086566 Inject/Drain Joint/Bursa Major C ompleted Medical Devices Description No Information Available Encounters Type Date Location Provider Dx Diagnosis Office Visit 05/09/2021 10:15a [place] PA-C M17.11 Unilateral primary osteoarthritis, right knee Office Visit 11/16/2020 11:15a [place] PA-C M17.11 Unilateral primary osteoarthritis, right knee Assessments Date Code Description Provider 05/09/2021 M17.11 Unilateral primary osteoarthriti s, right knee Marly Sanchez PA-C 11/16/2020 M17.11 Unilateral primary osteoarthriti s, right knee Marly Sanchez PA-C Plan of Treatment 05/09/2021 - Marly Sanchez PA-C* M17.11 Unilateral primary osteoarthritis, right knee* New Orders:* Euflexxa RT Knee Injection, Ordered: 05/09/21 * Follow up:* after rt knee Euflexxa approval and lt elbow eval w/KLF Functional Status Description No Information Available Mental Status Description No Information Available Referrals Refer to Reason for Referral Status Appt Date Ephraim Pandya MD Right knee Euflexxa- approved. Sending t o scheduling. Created [address] [facility], [address] [place] [address] [phone]
--- OUTSIDE RECORDS SUMMARY | 2021-07-04 19:24 | CCD | Continuity of Care Document ---
Author Author Zita SANCHEZ PA-C Organization Unknown Address [address] [place] [address] Phone [phone] Problems Active Problems Provider Date Essential hypertension [...] Qnty Indications Ordering Provide r Date Ipratropium [place] 0.02% Solution Ephraim Pandya MD 11/10/2019 Euflexxa 20mg/2ML Soln Prefill Syr zaki right knee #1 ked/lmk 07/12/19 right knee #2 ked/cp 07/19/19 RT knee #3 07/26/19 louied/le Ephraim Pandya MD 07/12/2019 Atorvastatin Calcium 20mg Tablets 1 by mouth every day Unknown Calcium 600+D3 [id number] Tablets Unknown Vitamin D3 Maximum Strength 5000Unit Capsules Unknown Furosemide 40mg Tablets 1 by mouth every day Unknown Metformin HCL ER (Mod) 1000mg Tablets ER 24HR Unknown Ranitidine HCL 300mg Capsules Unknown Vitamin B12 100mcg Tablets 1 by mouth every day Unknown Ventolin HFA 108(90Base) mcg/Act A erosol Unknown Ipratropium [place] 0.02% Solution Unknown Aspirin Adult 325mg Tablets [...] Available Procedures Date Code Description Status 05/09/2021 65491 Office/Outpatient Established Lo w MDM 20-29 Min Completed 05/09/202169542 Inject/Drain Joint/Bursa Major C ompleted 11/16/2020 72591 Office/Outpatient Established Mo d MDM 30-39 Min Completed 11/16/2020 88402 X-Ray Knee Complete W/Obliques & Tunnel And/Or Standing Views Completed 11/16/202005863 Inject/Drain Joint/Bursa Major C ompleted Medical Devices Description No Information Available Encounters Type Date Location Provider Dx Diagnosis Office Visit 05/09/2021 10:15a [place] PA-C M17.11 Unilateral primary osteoarthritis, right knee Office Visit 11/16/2020 11:15a [place] PA-C M17.11 Unilateral primary osteoarthritis, right [...] approved. Sending t o scheduling. Created [address] [facility], [address] [place] [address] [phone]
--- OUTSIDE RECORDS SUMMARY | 2021-07-04 19:24 | CCD | Continuity of Care Document ---
Author Author Zita MALDONADO PA-C Organization Unknown Address [address] [place] [address] Phone [phone] Problems Active Problems Provider Date Essential hypertension [...] Syr zaki Rt knee #1 05/25/21 KL/BC Ehpraim Pandya MD 2020 Ipratropium [place] 0.02% Solution Ephraim Pandya MD 11/10/2019 Atorvastatin Calcium 20mg Tablets 1 by mouth every day Unknown Calcium 600+D3 [id number] Tablets Unknown Vitamin D3 Maximum Strength 5000Unit Capsules Unknown Furosemide 40mg Tablets 1 by mouth every day Unknown Metformin HCL ER (Mod) 1000mg Tablets ER 24HR Unknown Ranitidine HCL 300mg Capsules Unknown Vitamin B12 100mcg Tablets 1 by mouth every day Unknown Ventolin HFA 108(90Base) mcg/Act A erosol Unknown Ipratropium [place] 0.02% Solution Unknown Aspirin Adult 325mg Tablets [...] 05/25/2021 Inject/Drain Joint/Bursa Major C ompleted 05/09/2021 66527 Office/Outpatient Established Lo w MDM 20-29 Min Completed 05/09/2021 Inject/Drain Joint/Bursa Major C ompleted Medical Devices Description No Information Available Encounters Type Date Location Provider Dx Diagnosis Office Visit 05/25/2021 9:45a [place] Marly Maldonado PA-C M17.11 Unilateral primary osteoarthritis, right knee Office Visit 05/09/2021 10:15a [place] Marly Maldonado PA-C M17.11 Unilateral primary osteoarthritis, right knee Assessments Date Code Description Provider 05/25/2021 M17.11 Unilateral primary osteoarthriti s, right knee Marly Maldonado PA-C 05/09/2021 M17.11 Unilateral primary osteoarthriti s, right knee Marly Maldonado PA-C Plan of Treatment Future Appointment(s):* 06/08/2021 2:00 pm - Marly Maldonado PA-C at [place] * 06/01/2021 5:15 pm - Marly Maldonado PA-C at [place] Functional Status Description No Information Available Mental Status Description No Information Available Referrals Refer to Reason for Referral Status Appt Date Marly Maldonado PA-C 05/23/21 Euflexxa Right Knee per [facility] fax auth is approved, [id number],exp 11/18/21,passed to respiratory care technician sw. [facility] [address] [place] [address] [address] [place] [address] [phone] Ephraim Pandya MD Right knee Euflexxa- approved. Sending t o scheduling. Created [address] [facility], [address] [place] [address] [phone]
--- OUTSIDE RECORDS SUMMARY | 2021-07-04 19:24 | CCD | Continuity of Care Document ---
Author Author Zita LUI ANP Organization Unknown Address [address] [address] Phone [phone] Care Team Providers Care [employer] Retailer Sales Consultant Name Role Phone Danya Jett AUTM [phone] John Rey DO AUTM [phone] Joceline Ferguson M.D. AUTM [phone] AUTM Unavailable AUTM Unavailable Problems Active Problems [...] twice a day Unknown Vitamin D (Ergocalciferol) 43514Qxnm Capsules 1 qd Unknown Pantoprazole Sodium 40mg Tablets D R daily -- one tablet in morning 1/2 hour before breakfast Unknown Raloxifene HCL 60mg Tablets 1 qd Unknown Vitamin B12 600mcg Tablets ER 1 by mouth every day Unknown Ipratropium [place] 0.03% Solution one nasal spray each nostril [...] 3 Years Of Age Or Older (Flulaval) [address] Given 06/20/2010 Influenza Virus Split 3 Yrs And Above For Intramuscular Use Vital Signs Date Vital Result Comment 04/17/2021 9:52am BP Systolic 122 mmHg BP Diastolic 70 mmHg Heart Rate 97 /min O2 % BldC Oximetry 933 % Height 63 inches 5'3" Weight 186.00 lb BMI (Body Mass Index) 32.9 kg/m2 [place] Body Weight 115 lb Weight 84.370 kg BSA (Body Surface Area) 1.87 m2 09/13/2019 10:55am Height 63 inches 5'3" Weight 135.00 lb BMI (Body Mass Index) 23.9 kg/m2 [place] Body Weight 115 lb Weight 61.236 kg BSA (Body Surface Area) 1.64 m2 Results Description No Information Available Procedures Date Code Description Status 04/17/2021 85151 Office/Outpatient New Moderate M DM 45-59 Minutes Completed 04/17/2021 93249 Inhaler Teaching Completed Medical Devices Description No Information Available Encounters Type Date Location Provider Dx Diagnosis Office Visit 04/17/2021 10:00a [facility] Pulmonary/Thoracic STACI Cobos J44.9 Chronic obstructive pulmonary disease, u nspecified R91.8 Other nonspecific abnormal f inding of lung field Z87.891 Personal history of nicotine dependence J96.12 Chronic respiratory failure with hypercapnia G47.33 Obstructive sleep apnea (yuko lt) (pediatric) Assessments Date Code Description Provider 04/17/2021 J44.9 [...] 11/01/2021 1:30 pm - STACI Shi at [facility] PulmonaryThoracic * 06/06/2021 12:30 pm - STACI Shi at [facility] Pulmonary/Thoracic 04/17/2021 - STACI Shi* J44.9 Chronic obstructive pulmonary disease, unspecified * R91.8 Other nonspecific abnormal finding of lung field * Z87.891 Personal history of nicotine dependence * J96.12 Chronic respiratory failure with hypercapnia * G47.33 Obstructive sleep apnea (adult) (pediatric) * * New Medication:* Breo Ellipta 200-25 mcg/Inh * New Labs:* FVL/[place], Ordered: 04/17/21 * FVL/[place], Scheduled: 06/06/21 * Follow up:* Follow up 6-8 weeks with fvl/spirometry. Follow up [address] and FVL. Functional Status Description No Information Available Mental Status Description No Information Available Referrals Refer to Reason for Referral Status Appt Date Priscilla Lui A.N.P. COPD Scheduled 04/17/2021 [facility]monary [address] [place], [place] [id number] [phone]
--- OUTSIDE RECORDS SUMMARY | 2021-07-04 19:28 | CCD ---
Author Author [facility] Organization [facility] Address Unknown Phone Unavailable Care Team Providers Care Biology Tutor Name Role Phone Toney, L Priscilla RELIEF PHARMACIST Unavailable Unavailable Toney, L Priscilla RELIEF PHARMACIST Unavailable Unavailable Toney, L Priscilla RELIEF PHARMACIST Unavailable Unavailable Toney, L Priscilla RELIEF PHARMACIST Unavailable Unavailable Toney, L Priscilla RELIEF PHARMACIST Unavailable Unavailable Toney, L Priscilla RELIEF PHARMACIST Unavailable Unavailable Toney, L Priscilla RELIEF PHARMACIST Unavailable Unavailable Toney, L Priscilla RELIEF PHARMACIST Unavailable Unavailable Toney, L Priscilla RELIEF PHARMACIST Unavailable Unavailable Toney, L Priscilla RELIEF PHARMACIST Unavailable Unavailable Toney, L Priscilla RELIEF PHARMACIST Unavailable Unavailable Toney, L Priscilla RELIEF PHARMACIST Unavailable Unavailable Toney, L Priscilla RELIEF PHARMACIST Unavailable Unavailable Toney, L Priscilla RELIEF PHARMACIST Unavailable Unavailable Toney, L Priscilla RELIEF PHARMACIST Unavailable Unavailable Toney, L Priscilla RELIEF PHARMACIST Unavailable Unavailable Toney, L Priscilla RELIEF PHARMACIST Unavailable Unavailable Toney, L Priscilla RELIEF PHARMACIST Unavailable Unavailable Toney, L Priscilla RELIEF PHARMACIST Unavailable Unavailable Toney, L Priscilla RELIEF PHARMACIST Unavailable Unavailable Toney, L Priscilla RELIEF PHARMACIST Unavailable Unavailable Toney, L Priscilla RELIEF PHARMACIST Unavailable Unavailable Toney, L Priscilla RELIEF PHARMACIST Unavailable Unavailable Toney, L Priscilla RELIEF PHARMACIST Unavailable Unavailable Toney, L Priscilla RELIEF PHARMACIST Unavailable Unavailable KIRSCHMAN, L DANYA RELIEF PHARMACIST Unavailable Unavailable KIRSCHMAN, L DANYA RELIEF PHARMACIST Unavailable Unavailable KIRSCHMAN, L DANYA RELIEF PHARMACIST Unavailable Unavailable KIRSCHMAN, L DANYA RELIEF PHARMACIST Unavailable Unavailable KIRSCHMAN, L DANYA RELIEF PHARMACIST Unavailable Unavailable KIRSCHMAN, L DANYA RELIEF PHARMACIST Unavailable Unavailable KIRSCHMAN, L DANYA RELIEF PHARMACIST Unavailable Unavailable KIRSCHMAN, L DANYA RELIEF PHARMACIST Unavailable Unavailable KIRSCHMAN, L DANYA RELIEF PHARMACIST Unavailable Unavailable KIRSCHMAN, L DANYA RELIEF PHARMACIST Unavailable Unavailable KIRSCHMAN, L DANYA RELIEF PHARMACIST Unavailable Unavailable KIRSCHMAN, L DANYA RELIEF PHARMACIST Unavailable Unavailable KIRSCHMAN, L DANYA RELIEF PHARMACIST Unavailable Unavailable KIRSCHMAN, L DANYA RELIEF PHARMACIST Unavailable Unavailable KIRSCHMAN, L DANYA RELIEF PHARMACIST Unavailable Unavailable KIRSCHMAN, L DANYA RELIEF PHARMACIST Unavailable Unavailable KIRSCHMAN, L DANYA RELIEF PHARMACIST Unavailable Unavailable KIRSCHMAN, L DANYA RELIEF PHARMACIST Unavailable Unavailable KIRSCHMAN, L DANYA RELIEF PHARMACIST Unavailable Unavailable KIRSCHMAN, L DANYA RELIEF PHARMACIST Unavailable Unavailable KIRSCHMAN, L DANYA RELIEF PHARMACIST Unavailable Unavailable KIRSCHMAN, L DANYA RELIEF PHARMACIST Unavailable Unavailable KIRSCHMAN, L DANYA RELIEF PHARMACIST Unavailable Unavailable KIRSCHMAN, L DANYA RELIEF PHARMACIST Unavailable Unavailable KIRSCHMAN, L DANYA RELIEF PHARMACIST Unavailable Unavailable KIRSCHMAN, L DANYA RELIEF PHARMACIST Unavailable Unavailable KIRSCHMAN, L DANYA RELIEF PHARMACIST Unavailable Unavailable KIRSCHMAN, L DANYA RELIEF PHARMACIST Unavailable Unavailable KIRSCHMAN, L DANYA RELIEF PHARMACIST Unavailable Unavailable KIRSCHMAN, L DANYA RELIEF PHARMACIST Unavailable Unavailable KIRSCHMAN, L DANYA RELIEF PHARMACIST Unavailable Unavailable KIRSCHMAN, L DANYA RELIEF PHARMACIST Unavailable Unavailable KIRSCHMAN, L DANYA RELIEF PHARMACIST Unavailable Unavailable KIRSCHMAN, L DANYA RELIEF PHARMACIST Unavailable Unavailable KIRSCHMAN, L DANYA RELIEF PHARMACIST Unavailable Unavailable KIRSCHMAN, L DANYA RELIEF PHARMACIST Unavailable Unavailable KIRSCHMAN, L DANYA RELIEF PHARMACIST Unavailable Unavailable KIRSCHMAN, L DANYA RELIEF PHARMACIST Unavailable Unavailable KIRSCHMAN, L DANYA RELIEF PHARMACIST Unavailable Unavailable KIRSCHMAN, L DANYA RELIEF PHARMACIST Unavailable Unavailable KIRSCHMAN, L DANYA RELIEF PHARMACIST Unavailable Unavailable KIRSCHMAN, L DANYA RELIEF PHARMACIST Unavailable Unavailable KIRSCHMAN, L DANYA RELIEF PHARMACIST Unavailable Unavailable KIRSCHMAN, L DANYA RELIEF PHARMACIST Unavailable Unavailable KIRSCHMAN, L DANYA RELIEF PHARMACIST Unavailable Unavailable KIRSCHMAN, L DANYA RELIEF PHARMACIST Unavailable Unavailable KIRSCHMAN, L DANYA RELIEF PHARMACIST Unavailable Unavailable Fish, [facility], PA-C Unavailable Unavailabl e Fish, [facility], PA-C Unavailable Unavailabl e Fish, [facility], PA-C Unavailable Unavailabl e Fish, [facility], PA-C Unavailable Unavailabl e Fish, [facility], PA-C Unavailable Unavailabl e Fish, [facility], PA-C Unavailable Unavailabl e Fish, [facility], PA-C Unavailable Unavailabl e Fish, [facility], PA-C Unavailable Unavailabl e Fish, [facility], PA-C Unavailable Unavailabl e Fish, [facility], PA-C Unavailable Unavailabl e Fish, [facility], PA-C Unavailable Unavailabl e Fish, [facility], PA-C Unavailable Unavailabl e Fish, [facility], PA-C Unavailable Unavailabl e Fish, [facility], PA-C Unavailable Unavailabl e Fish, [facility], PA-C Unavailable Unavailabl e Fish, [facility], PA-C Unavailable Unavailabl e Fish, [facility], PA-C Unavailable Unavailabl e Fish, [facility], PA-C Unavailable Unavailabl e Fish, [facility], PA-C Unavailable Unavailabl e Fish, [facility], PA-C Unavailable Unavailabl e Fish, [facility], PA-C Unavailable Unavailabl e Fish, [facility], PA-C Unavailable Unavailabl e Fish, [facility], PA-C Unavailable Unavailabl e Fish, [facility], PA-C Unavailable Unavailabl e Fish, [facility], PA-C Unavailable Unavailabl e Fish, [facility], PA-C Unavailable Unavailabl e Fish, [facility], PA-C Unavailable Unavailabl e Fish, [facility], PA-C Unavailable Unavailabl e Fish, [facility], PA-C Unavailable Unavailabl e Fish, [facility], PA-C Unavailable Unavailabl e Fish, [facility], PA-C Unavailable Unavailabl e Fish, [facility] Unavailable Unavailabl e Fish, [facility], PA-C Unavailable Unavailabl e Fish, [facility] Unavailable Unavailabl e Fish, [facility] Unavailable Unavailabl e Fish, [facility] Unavailable Unavailabl e KIRSCHMAN, L DANYA RELIEF PHARMACIST Unavailable Unavailable KIRSCHMAN, L DANYA RELIEF PHARMACIST Unavailable Unavailable KIRSCHMAN, L DANYA RELIEF PHARMACIST Unavailable Unavailable KIRSCHMAN, L DANYA RELIEF PHARMACIST Unavailable Unavailable KIRSCHMAN, L DANYA RELIEF PHARMACIST Unavailable Unavailable KIRSCHMAN, L DANYA RELIEF PHARMACIST Unavailable Unavailable KIRSCHMAN, L DANYA RELIEF PHARMACIST Unavailable Unavailable KIRSCHMAN, L DANYA RELIEF PHARMACIST Unavailable Unavailable KIRSCHMAN, L DANYA RELIEF PHARMACIST Unavailable Unavailable KIRSCHMAN, L DANYA RELIEF PHARMACIST Unavailable Unavailable KIRSCHMAN, L DANYA RELIEF PHARMACIST Unavailable Unavailable KIRSCHMAN, L DANYA RELIEF PHARMACIST Unavailable Unavailable KIRSCHMAN, L DANYA RELIEF PHARMACIST Unavailable Unavailable KIRSCHMAN, L DANYA RELIEF PHARMACIST Unavailable Unavailable KIRSCHMAN, L DANYA RELIEF PHARMACIST Unavailable Unavailable KIRSCHMAN, L DANYA RELIEF PHARMACIST Unavailable Unavailable KIRSCHMAN, L DANYA RELIEF PHARMACIST Unavailable Unavailable KIRSCHMAN, L DANYA RELIEF PHARMACIST Unavailable Unavailable KIRSCHMAN, L DANYA RELIEF PHARMACIST Unavailable Unavailable KIRSCHMAN, L DANYA RELIEF PHARMACIST Unavailable Unavailable KIRSCHMAN, L DANYA RELIEF PHARMACIST Unavailable Unavailable KIRSCHMAN, L DANYA RELIEF PHARMACIST Unavailable Unavailable KIRSCHMAN, L DANYA RELIEF PHARMACIST Unavailable Unavailable KIRSCHMAN, L DANYA RELIEF PHARMACIST Unavailable Unavailable KIRSCHMAN, L DANYA RELIEF PHARMACIST Unavailable Unavailable KIRSCHMAN, L DANYA RELIEF PHARMACIST Unavailable Unavailable KIRSCHMAN, L DANYA RELIEF PHARMACIST Unavailable Unavailable KIRSCHMAN, L DANYA RELIEF PHARMACIST Unavailable Unavailable KIRSCHMAN, L DANYA RELIEF PHARMACIST Unavailable Unavailable KIRSCHMAN, L DANYA RELIEF PHARMACIST Unavailable Unavailable KIRSCHMAN, L DANYA RELIEF PHARMACIST Unavailable Unavailable KIRSCHMAN, L DANYA RELIEF PHARMACIST Unavailable Unavailable KIRSCHMAN, L DANYA RELIEF PHARMACIST Unavailable Unavailable KIRSCHMAN, L DANYA RELIEF PHARMACIST Unavailable Unavailable KIRSCHMAN, L DANYA RELIEF PHARMACIST Unavailable Unavailable KIRSCHMAN, L DANYA RELIEF PHARMACIST Unavailable Unavailable KIRSCHMAN, L DANYA RELIEF PHARMACIST Unavailable Unavailable KIRSCHMAN, L DANYA RELIEF PHARMACIST Unavailable Unavailable KIRSCHMAN, L DANYA RELIEF PHARMACIST Unavailable Unavailable KIRSCHMAN, L DANYA RELIEF PHARMACIST Unavailable Unavailable KIRSCHMAN, L DANYA RELIEF PHARMACIST Unavailable Unavailable KIRSCHMAN, L DANYA RELIEF PHARMACIST Unavailable Unavailable KIRSCHMAN, L DANYA RELIEF PHARMACIST Unavailable Unavailable KIRSCHMAN, L DANYA RELIEF PHARMACIST Unavailable Unavailable KIRSCHMAN, L DANYA RELIEF PHARMACIST Unavailable Unavailable KIRSCHMAN, L DANYA RELIEF PHARMACIST Unavailable Unavailable KIRSCHMAN, L DANYA RELIEF PHARMACIST Unavailable Unavailable NED, L FARRUKH MD Unavailable Unavailable NED, L FARRUKH MD Unavailable Unavailable NED, L FARRUKH MD Unavailable Unavailable NED, L FARRUKH MD Unavailable Unavailable NED, L FARRUKH MD Unavailable Unavailable NED, L FARRUKH MD Unavailable Unavailable NED, L FARRUKH MD Unavailable Unavailable NED, L FARRUKH MD Unavailable Unavailable NEDEmelina GERARDO FARRUKH MD Unavailable Unavailable NED, L FARRUKH MD Unavailable Unavailable NED, L FARRUKH MD Unavailable Unavailable NED, L FARRUKH MD Unavailable Unavailable NEDEmelina GERARDO FARRUKH MD Unavailable Unavailable NED L FARRUKH MD Unavailable Unavailable NED, L FARRUKH MD Unavailable Unavailable NED L FARRUKH MD Unavailable Unavailable NED L FARRUKH MD Unavailable Unavailable NED L FARRUKH MD Unavailable Unavailable NED, L FARRUKH MD Unavailable Unavailable NED, L FARRUKH MD Unavailable Unavailable REY, MAQBOOL SILVER BUCHANAN Unavailable Unavailable REY, MAQBOOL SILVER MD Unavailable Unavailable REY, MAQBOOL SILVER MD Unavailable Unavailable REY, MAQBOOL SILVER MD Unavailable Unavailable REY, MAQBOOL SILVER MD Unavailable Unavailable REY, MAQBOOL SILVER MD Unavailable Unavailable REY, MAQBOOL SILVER MD Unavailable Unavailable REY, MAQBOOL SILVER MD Unavailable Unavailable REY, MAQBOOL SILVER MD Unavailable Unavailable REY, MAQBOOL SILVER MD Unavailable Unavailable REY, MAQBOOL SILVER MD Unavailable Unavailable REY, MAQBOOL SILVER MD Unavailable Unavailable REY, MAQBOOL SILVER MD Unavailable Unavailable REY, MAQBOOL SILVER MD Unavailable Unavailable REY, MAQBOOL SILVER MD Unavailable Unavailable REY, MAQBOOL SILVER MD Unavailable Unavailable REY, MAQBOOL SILVER MD Unavailable Unavailable REY, MAQBOOL SILVER MD Unavailable Unavailable REY, MAQBOOL SILVER MD Unavailable Unavailable REY, MAQBOOL SILVER MD Unavailable Unavailable REY, MAQBOOL SILVER MD Unavailable Unavailable REY, MAQBOOL SILVER MD Unavailable Unavailable REY, MAQBOOL SILVER MD Unavailable Unavailable REY, MAQBOOL SILVER MD Unavailable Unavailable REY, MAQBOOL SILVER MD Unavailable Unavailable REY, MAQBOOL SILVER MD Unavailable Unavailable REY, MAQBOOL SILEVR MD Unavailable Unavailable REY, MAQBOOL SILVER MD Unavailable Unavailable REY, MAQBOOL SILVER MD Unavailable Unavailable REY, MAQBOOL SILVER MD Unavailable Unavailable REY, MAQBOOL SILVER MD Unavailable Unavailable REY, MAQBOOL SILVER MD Unavailable Unavailable REY, MAQBOOL SILVER MD Unavailable Unavailable REY, MAQBOOL SILVER MD Unavailable Unavailable REY, MAQBOOL SILVER MD Unavailable Unavailable REY, MAQBOOL SILVER MD Unavailable Unavailable REY, MAQBOOL SILVER MD Unavailable Unavailable REY, MAQBOOL SILVER MD Unavailable Unavailable REY, MAQBOOL SILVER MD Unavailable Unavailable REY, MAQBOOL SILVER MD Unavailable Unavailable REY, MAQBOOL SILVER MD Unavailable Unavailable REY, MAQBOOL SILVER MD Unavailable Unavailable REY, MAQBOOL SILVER MD Unavailable Unavailable REY, MAQBOOL SILVER MD Unavailable Unavailable REY, MAQBOOL SILVER MD Unavailable Unavailable REY, MAQBOOL SILVER MD Unavailable Unavailable REY, MAQBOOL SILVER MD Unavailable Unavailable REY, MAQBOOL SILVER MD Unavailable Unavailable REY, MAQBOOL SILVER MD Unavailable Unavailable REY, MAQBOOL SILVER MD Unavailable Unavailable REY, MAQBOOL SILVER MD Unavailable Unavailable REY, MAQBOOL SILVER MD Unavailable Unavailable REY, MAQBOOL SILVER MD Unavailable Unavailable REY, MAQBOOL SILVER MD Unavailable Unavailable REY, MAQBOOL SILVER MD Unavailable Unavailable REY, MAQBOOL SILVER MD Unavailable Unavailable REY, MAQBOOL SILVER MD Unavailable Unavailable REY, MAQBOOL SILVER MD Unavailable Unavailable REY, MAQBOOL SILVER MD Unavailable Unavailable REY, MAQBOOL SILVER MD Unavailable Unavailable REY, MAQBOOL SILVER MD Unavailable Unavailable REY, MAQBOOL SILVER MD Unavailable Unavailable REY, MAQBOOL SILVER MD Unavailable Unavailable REY, MAQBOOL SILVER MD Unavailable Unavailable REY, MAQBOOL SILVER MD Unavailable Unavailable REY, MAQBOOL SILVER MD Unavailable Unavailable REY, MAQBOOL SILVER MD Unavailable Unavailable REY, MAQBOOL SILVER MD Unavailable Unavailable REY, MAQBOOL SILVER MD Unavailable Unavailable REY, MAQBOOL SILVER MD Unavailable Unavailable REY, MAQBOOL SILVER MD Unavailable Unavailable REY, MAQBOOL SILVER MD Unavailable Unavailable REY, MAQBOOL SILVER MD Unavailable Unavailable REY, MAQBOOL SILVER MD Unavailable Unavailable REY, MAQBOOL SILVER MD Unavailable Unavailable REY, MAQBOOL SILVER MD Unavailable Unavailable REY, MAQBOOL SILVER MD Unavailable Unavailable REY, MAQBOOL SILVER MD Unavailable Unavailable MERRY GUY MD Unavailable Unavailable MERRY GUY MD Unavailable Unavailable Haider Sommer MD Unavailable Unavailable Haider Sommer MD Unavailable Unavailable Haider Sommer MD Unavailable Unavailable Haider Sommer MD Unavailable Unavailable Haider Sommer MD Unavailable Unavailable Haider Sommer MD Unavailable Unavailable Haider Sommer MD Unavailable Unavailable Haider Sommer MD Unavailable Unavailable Haider Sommer MD Unavailable Unavailable Haider Sommer MD Unavailable Unavailable Hiader Sommer MD Unavailable Unavailable Haider Sommer MD Unavailable Unavailable Haider Sommer MD Unavailable Unavailable Haider Sommer MD Unavailable Unavailable Haider Sommer MD Unavailable Unavailable Haider Sommer MD Unavailable Unavailable Haider Sommer MD Unavailable Unavailable Haider Sommer MD Unavailable Unavailable Haider Sommer MD Unavailable Unavailable Haider Sommer MD Unavailable Unavailable Haider Sommer MD Unavailable Unavailable Haider Sommer MD Unavailable Unavailable Haider Sommer MD Unavailable Unavailable Haider Sommer MD Unavailable Unavailable Haider Sommer MD Unavailable Unavailable Ali, Haider Unavailable Unavailable Ali, Haider Unavailable Unavailable Ali, Haider Unavailable Unavailable Ali, Haider MD Unavailable Unavailable Ali, Haider MD Unavailable Unavailable Ali, Haider MD Unavailable Unavailable Ali, Haider MD Unavailable Unavailable Ali, Haider MD Unavailable Unavailable Ali, Haider MD Unavailable Unavailable Ali, Haider MD Unavailable Unavailable Ali, Haider MD Unavailable Unavailable Ali, Haider MD Unavailable Unavailable Ali, Haider MD Unavailable Unavailable Ali, Haider MD Unavailable Unavailable Ali, Haider MD Unavailable Unavailable Ali, Haider MD Unavailable Unavailable Ali, Haider MD Unavailable Unavailable Ali, Haider MD Unavailable Unavailable Ali, Haider MD Unavailable Unavailable Ali, Haider MD Unavailable Unavailable Ali, Haider MD Unavailable Unavailable Ali, Haider MD Unavailable Unavailable Ali, Haider MD Unavailable Unavailable Ali, Haider MD Unavailable Unavailable Ali, Haider MD Unavailable Unavailable Ali, Haider MD Unavailable Unavailable Ali, Haider MD Unavailable Unavailable Ali, Haider MD Unavailable Unavailable Ali, Haider MD Unavailable Unavailable Ali, Haider MD Unavailable Unavailable Ali, Haider BUCHANAN Unavailable Unavailable Ali, Haider BUCHANAN Unavailable Unavailable Ali, Haider MD Unavailable Unavailable Ali, Haider MD Unavailable Unavailable Ali, Haider MD Unavailable Unavailable Ali, Haider MD Unavailable Unavailable Ali, Haider MD Unavailable Unavailable Ali, Haider MD Unavailable Unavailable Ali, Haider MD Unavailable Unavailable Ali, Haider BUCHANAN Unavailable Unavailable Ali, Haider BUCHANAN Unavailable Unavailable Ali, Haider MD Unavailable Unavailable Ali, Haider MD Unavailable Unavailable Ali, Haider MD Unavailable Unavailable Ali, Haider MD Unavailable Unavailable Ali, Haider MD Unavailable Unavailable Ali, Haider BUCHANAN Unavailable Unavailable Ali, Haider BUCHANAN Unavailable Unavailable Ali, Haider BUCHANAN Unavailable Unavailable Ali, Haider BUCHANAN Unavailable Unavailable Ali, Haider BUCHANAN Unavailable Unavailable Ali, Haider BUCHANAN Unavailable Unavailable Ali, Haider Unavailable Unavailable Ali, Haider MD Unavailable Unavailable Ali, Haider Unavailable Unavailable Ali, Haider BUCHANAN Unavailable Unavailable Ali, Haider Unavailable Unavailable Ali, Haider BUCHANAN Unavailable Unavailable Ali, Haider BUCHANAN Unavailable Unavailable Ali, Haider BUCHANAN Unavailable Unavailable Ali, Haider MD Unavailable Unavailable Ali, Haider MD Unavailable Unavailable Ali, Haider MD Unavailable Unavailable Ali, Haider MD Unavailable Unavailable Ali, Haider MD Unavailable Unavailable Ali, Haider MD Unavailable Unavailable Ali, Haider MD Unavailable Unavailable Ali, Haider BUCHANAN Unavailable Unavailable Ali, Haider BUCHANAN Unavailable Unavailable Ali, Haider BUCHANAN Unavailable Unavailable Ali, Haider MD Unavailable Unavailable Ali, Haider MD Unavailable Unavailable Ali, Haider MD Unavailable Unavailable Haider Sommer MD Unavailable Unavailable Haider Sommer MD Unavailable Unavailable TURRIN, CHIOMA Unavailable Unavailable TURRIN, CHIOMA Unavailable Unavailable TURRIN, CHIOMA Unavailable Unavailable TURRIN, CHIOMA Unavailable Unavailable REY, MAQBOOL SILVER MD Unavailable Unavailable REY, MAQBOOL SILVER MD Unavailable Unavailable REY, MAQBOOL SILVER MD Unavailable Unavailable REY, MAQBOOL SILVER MD Unavailable Unavailable REY, MAQBOOL SILVER MD Unavailable Unavailable REY, MAQBOOL SILVER MD Unavailable Unavailable REY, MAQBOOL SILVER MD Unavailable Unavailable REY, MAQBOOL SILVER MD Unavailable Unavailable REY, MAQBOOL SILVER MD Unavailable Unavailable REY, MAQBOOL SILVER MD Unavailable Unavailable REY, MAQBOOL SILVER MD Unavailable Unavailable REY, MAQBOOL SILVER MD Unavailable Unavailable REY, MAQBOOL SILVER MD Unavailable Unavailable REY, MAQBOOL SILVER MD Unavailable Unavailable REY, MAQBOOL SILVER MD Unavailable Unavailable REY, MAQBOOL SILVER MD Unavailable Unavailable REY, MAQBOOL SILVER MD Unavailable Unavailable REY, MAQBOOL SILVER MD Unavailable Unavailable REY, MAQBOOL SILVER MD Unavailable Unavailable REY, MAQBOOL SILVER MD Unavailable Unavailable REY, MAQBOOL SILVER MD Unavailable Unavailable REY, MAQBOOL SILVER MD Unavailable Unavailable REY, MAQBOOL SILVER MD Unavailable Unavailable REY, MAQBOOL SILVER MD Unavailable Unavailable REY, MAQBOOL SILVER MD Unavailable Unavailable REY, MAQBOOL SILVER MD Unavailable Unavailable REY, MAQBOOL SILVER MD Unavailable Unavailable REY, MAQBOOL SILVER MD Unavailable Unavailable REY, MAQBOOL SILVER MD Unavailable Unavailable REY, MAQBOOL SILVER MD Unavailable Unavailable REY, MAQBOOL SILVER MD Unavailable Unavailable REY, MAQBOOL SILVER MD Unavailable Unavailable REY, MAQBOOL SILVER MD Unavailable Unavailable REY, MAQBOOL SILVER MD Unavailable Unavailable REY, MAQBOOL SILVER MD Unavailable Unavailable REY, MAQBOOL SILVER MD Unavailable Unavailable REY, MAQBOOL SILVER MD Unavailable Unavailable REY, MAQBOOL SILVER MD Unavailable Unavailable REY, MAQBOOL SILVER MD Unavailable Unavailable REY, MAQBOOL SILVER MD Unavailable Unavailable REY, MAQBOOL SILVER MD Unavailable Unavailable REY, MAQBOOL SILVER MD Unavailable Unavailable REY, MAQBOOL SILVER MD Unavailable Unavailable REY, MAQBOOL SILVER MD Unavailable Unavailable REY, MAQBOOL SILVER MD Unavailable Unavailable REY, MAQBOOL SILVER MD Unavailable Unavailable REY, MAQBOOL SILVER MD Unavailable Unavailable REY, MAQBOOL SILVER MD Unavailable Unavailable REY, MAQBOOL SILVER MD Unavailable Unavailable REY, MAQBOOL SILVER MD Unavailable Unavailable REY, MAQBOOL SILVER MD Unavailable Unavailable REY, MAQBOOL SILVER MD Unavailable Unavailable REY, MAQBOOL SILVER MD Unavailable Unavailable REY, MAQBOOL SILVER MD Unavailable Unavailable REY, MAQBOOL SILVER MD Unavailable Unavailable REY, MAQBOOL SILVER MD Unavailable Unavailable REY, MAQBOOL SILVER MD Unavailable Unavailable REY, MAQBOOL SILVER MD Unavailable Unavailable REY, MAQBOOL SILVER MD Unavailable Unavailable REY, MAQBOOL SILVER MD Unavailable Unavailable REY, MAQBOOL SILVER MD Unavailable Unavailable REY, MAQBOOL SILVER MD Unavailable Unavailable REY, MAQBOOL SILVER MD Unavailable Unavailable REY, MAQBOOL SILVER MD Unavailable Unavailable REY, MAQBOOL SILVER MD Unavailable Unavailable REY, MAQBOOL SILVER MD Unavailable Unavailable REY, MAQBOOL SILVER MD Unavailable Unavailable REY, MAQBOOL SILVER MD Unavailable Unavailable REY, MAQBOOL SILVER MD Unavailable Unavailable REY, MAQBOOL SILVER MD Unavailable Unavailable REY, MAQBOOL SILVER MD Unavailable Unavailable REY, MAQBOOL SILVER MD Unavailable Unavailable REY, MAQBOOL SILVER MD Unavailable Unavailable REY, RAYRAY LOFTON MD Unavailable Unavailable REY, RAYRAY LOFTON MD Unavailable Unavailable REY, RAYRAY LOFTON MD Unavailable Unavailable REY, RAYRAY LOFTON MD Unavailable Unavailable REY, RAYRAY LOFTON MD Unavailable Unavailable SEMEL, Marianela HELMS MD Unavailable Unavailable SEMEL, Marianela HELMS MD Unavailable Unavailable SEMEL, Marianela HELMS MD Unavailable Unavailable SEMEL, Marianela HELMS MD Unavailable Unavailable SEMEL, Marianela HELMS MD Unavailable Unavailable SEMEL, Marianela HELMS MD Unavailable Unavailable SEMEL, Marianela HELMS MD Unavailable Unavailable SEMEL, Marianela HELMS MD Unavailable Unavailable SEMEL, Marianela HELMS MD Unavailable Unavailable SEMEL, Marianela HELMS MD Unavailable Unavailable SEMEL, Marianela HELMS MD Unavailable Unavailable SEMEL, Marianela HELMS MD Unavailable Unavailable SEMEL, Marianela HELMS MD Unavailable Unavailable SEMEL, Marianela HELMS MD Unavailable Unavailable SEMEL, Marianela HELMS MD Unavailable Unavailable SEMEL, Marianela HELMS MD Unavailable Unavailable SEMEL, Marianela HELMS MD Unavailable Unavailable SEMEL, Marianela HELMS MD Unavailable Unavailable SEMEL, Marianela HELMS MD Unavailable Unavailable SEMEL, Marianela HELMS MD Unavailable Unavailable SEMEL, Marianela HELMS MD Unavailable Unavailable SEMEL, Marianela HELMS MD Unavailable Unavailable SEMEL, Marianela HELMS MD Unavailable Unavailable SEMEL, Marianela HELMS MD Unavailable Unavailable SEMEL, Marianela HELMS MD Unavailable Unavailable SEMEL, Marianela HELMS MD Unavailable Unavailable SEMEL, Marianela HELMS MD Unavailable Unavailable SEMEL, Marianela HELMS MD Unavailable Unavailable SEMEL, Marianela HELMS MD Unavailable Unavailable SEMEL, Marianela HELMS MD Unavailable Unavailable SEMEL, Marianela HELMS MD Unavailable Unavailable SEMEL, Marianela HELMS MD Unavailable Unavailable SEMEL, Marianela HELMS MD Unavailable Unavailable SEMEL, Marianela HELMS MD Unavailable Unavailable SEMEL, Marianela HELMS MD Unavailable Unavailable SEMEL, Marianela HELMS MD Unavailable Unavailable SEMEL, Marianela HELMS MD Unavailable Unavailable SEMEL, Marianela HELMS MD Unavailable Unavailable SEMEL, Marianela HELMS MD Unavailable Unavailable SEMEL, Marianela HELMS MD Unavailable Unavailable SEMEL, Marianela HELMS MD Unavailable Unavailable SEMEL, Marianela HELMS MD Unavailable Unavailable SEMEL, Marianela HELMS MD Unavailable Unavailable SEMEL, Marianela HELMS MD Unavailable Unavailable SEMEL, Marianela HELMS MD Unavailable Unavailable SEMEL, Marianela HELMS MD Unavailable Unavailable SEMEL, Marianela HELMS MD Unavailable Unavailable SEMEL, Marianela HELMS MD Unavailable Unavailable SEMEL, Marianela HELMS MD Unavailable Unavailable SEMEL, Marianela HELMS MD Unavailable Unavailable SEMEL, Marianela HELMS MD Unavailable Unavailable SEMEL, Marianela HELMS MD Unavailable Unavailable SEMEL, Marianela HELMS MD Unavailable Unavailable SEMEL, Marianela HELMS MD Unavailable Unavailable SEMEL, Marianela HELMS MD Unavailable Unavailable SEMEL, Marianela HELMS MD Unavailable Unavailable SEMEL, Marianela HELMS MD Unavailable Unavailable SEMEL, Marianela HELMS MD Unavailable Unavailable SEMEL, Marianela HELMS MD Unavailable Unavailable SEMEL, Marianela HELMS MD Unavailable Unavailable SEMEL, Marianela HELMS MD Unavailable Unavailable SEMEL, Marianela HELMS MD Unavailable Unavailable SEMEL, Marianela HELMS MD Unavailable Unavailable SEMEL, Marianela HELMS MD Unavailable Unavailable SEMEL, Marianela HELMS MD Unavailable Unavailable SEMEL, Marianela HELMS MD Unavailable Unavailable SEMEL, Marianela HELMS MD Unavailable Unavailable SEMEL, Marianela HELMS MD Unavailable Unavailable SEMEL, Marianela HELMS MD Unavailable Unavailable SEMEL, Marianela HELMS MD Unavailable Unavailable SEMEL, Marianela HELMS MD Unavailable Unavailable SEMEL, Marianela HELMS MD Unavailable Unavailable SEMEL, Marianela HELMS MD Unavailable Unavailable SEMEL, Marianela HELMS MD Unavailable Unavailable SEMEL, Marianela HELMS MD Unavailable Unavailable SEMEL, Marianela HELMS MD Unavailable Unavailable SEMEL, Marianela HELMS MD Unavailable Unavailable SEMEL, Marianela HELMS MD Unavailable Unavailable SEMEL, Marianela HELMS MD Unavailable Unavailable SEMEL, Marianela HELMS MD Unavailable Unavailable SEMEL, Marianela HELMS MD Unavailable Unavailable SEMEL, Marianela HELMS MD Unavailable Unavailable SEMEL, Marianela HELMS MD Unavailable Unavailable SEMEL, Marianela HELMS MD Unavailable Unavailable SEMEL, Marianela HELMS MD Unavailable Unavailable SEMEL, Marianela HELMS MD Unavailable Unavailable SEMEL, Marianela HELMS MD Unavailable Unavailable SEMEL, Marianela HELMS MD Unavailable Unavailable SEMEL, Marianela HELMS MD Unavailable Unavailable SEMEL, Marianela HELMS MD Unavailable Unavailable SEMEL, Marianela HELMS MD Unavailable Unavailable SEMEL, Marianela HELMS MD Unavailable Unavailable SEMEL, Marianela HELMS MD Unavailable Unavailable SEMEL, Marianela HELMS MD Unavailable Unavailable SEMEL, Marianela HELMS MD Unavailable Unavailable SEMEL, Marianela HELMS MD Unavailable Unavailable SEMEL, Marianela HELMS MD Unavailable Unavailable SEMEL, Marianela HELMS MD Unavailable Unavailable SEMEL, Marianela HEMLS MD Unavailable Unavailable SEMEL, Marianela HELMS MD Unavailable Unavailable SEMEL, Marianela HELMS MD Unavailable Unavailable SEMEL, Marianela HELMS MD Unavailable Unavailable SEMEL, Marianela HELMS MD Unavailable Unavailable SEMEL, Marianela HELMS MD Unavailable Unavailable SEMEL, Marianela HELMS MD Unavailable Unavailable SEMEL, Marianela HELMS MD Unavailable Unavailable SEMEL, Marianela HELMS MD Unavailable Unavailable SEMEL, Marianela HELMS MD Unavailable Unavailable SEMEL, Marianela HELMS MD Unavailable Unavailable SEMEL, Marianela HELMS MD Unavailable Unavailable SEMEL, Marianela HELMS MD Unavailable Unavailable SEMEL, Marianela HELMS MD Unavailable Unavailable SEMEL, Marianela HELMS MD Unavailable Unavailable SEMEL, Marianela HELMS MD Unavailable Unavailable SEMEL, Marianela HELMS MD Unavailable Unavailable SEMEL, Marianela HELMS MD Unavailable Unavailable SEMEL, Marianela HELMS MD Unavailable Unavailable SEMEL, Marianela HELMS MD Unavailable Unavailable SEMEL, Marianela HELMS MD Unavailable Unavailable SEMEL, Marianela HELMS MD Unavailable Unavailable SEMEL, Marianela HELMS MD Unavailable Unavailable SEMEL, Marianela HELMS MD Unavailable Unavailable SEMEL, Marianela HELMS MD Unavailable Unavailable SEMEL, Marianela HELMS MD Unavailable Unavailable SEMEL, Marianela HELMS MD Unavailable Unavailable SEMEL, Marianela HELMS MD Unavailable Unavailable SEMEL, Marianela HELMS MD Unavailable Unavailable SEMEL, Marianela HELMS MD Unavailable Unavailable SEMEL, Marianela HELMS MD Unavailable Unavailable SEMEL, Marianela HELMS MD Unavailable Unavailable SEMEL, Marianela HELMS MD Unavailable Unavailable SEMEL, Marianela HELMS MD Unavailable Unavailable SEMEL, Marianela HELMS MD Unavailable Unavailable SEMEL, Marianela HELMS MD Unavailable Unavailable SEMEL, Marianela HELMS MD Unavailable Unavailable SEMEL, Marianela HELMS MD Unavailable Unavailable SEMEL, Marianela HELMS MD Unavailable Unavailable SEMEL, Marianela HELMS MD Unavailable Unavailable SEMEL, Marianela HELMS MD Unavailable Unavailable SEMEL, Marianela HELMS MD Unavailable Unavailable SEMEL, Marianela HELMS MD Unavailable Unavailable SEMEL, Marianela HELMS MD Unavailable Unavailable SEMEL, Marianela HELMS MD Unavailable Unavailable SEMEL, Marianela HELMS MD Unavailable Unavailable SEMEL, Marianela HELMS MD Unavailable Unavailable SEMEL, Marianela HELMS MD Unavailable Unavailable SEMEL, Marianela HELMS MD Unavailable Unavailable SEMEL, Marianela HELMS MD Unavailable Unavailable SEMEL, Marianela HELMS MD Unavailable Unavailable SEMEL, Marianela HELMS MD Unavailable Unavailable SEMEL, Marianela HELMS MD Unavailable Unavailable SEMEL, Marianela HELMS MD Unavailable Unavailable SEMEL, Marianela HELMS MD Unavailable Unavailable SEMEL, Marianela HELMS MD Unavailable Unavailable SEMEL, Marianela HELMS MD Unavailable Unavailable SEMEL, Marianela HELMS MD Unavailable Unavailable SEMEL, Marianela HELMS MD Unavailable Unavailable SEMEL, Marianela HELMS MD Unavailable Unavailable SEMEL, Marianela HELMS MD Unavailable Unavailable SEMEL, Marianela HELMS MD Unavailable Unavailable SEMEL, Marianela HELMS MD Unavailable Unavailable SEMEL, Marianela HELMS MD Unavailable Unavailable SEMEL, Marianela HELMS MD Unavailable Unavailable SEMEL, Marianela HELMS MD Unavailable Unavailable SEMEL, Marianela HELMS MD Unavailable Unavailable SEMEL, Marianela HELMS MD Unavailable Unavailable SEMEL, Marianela HELMS MD Unavailable Unavailable SEMEL, Marianela HELMS MD Unavailable Unavailable SEMEL, Marianela HELMS MD Unavailable Unavailable SEMEL, Marianela HELMS MD Unavailable Unavailable SEMEL, Marianela HELMS MD Unavailable Unavailable SEMEL, Marianela HELMS MD Unavailable Unavailable SEMEL, Marianela HELMS MD Unavailable Unavailable SEMEL, Marianela HELMS MD Unavailable Unavailable SEMEL, Marianela HELMS MD Unavailable Unavailable SEMEL, Marianela HELMS MD Unavailable Unavailable SEMEL, Marianela HELMS MD Unavailable Unavailable SEMEL, Marianela HELMS MD Unavailable Unavailable SEMEL, Marianela HELMS MD Unavailable Unavailable SEMEL, Marianela HELMS MD Unavailable Unavailable SEMEL, Marianela HELMS MD Unavailable Unavailable SEMEL, Marianela HELMS MD Unavailable Unavailable SEMEL, Marianela HELMS MD Unavailable Unavailable SEMEL, Marianela HELMS MD Unavailable Unavailable SEMEL, Marianela HELMS MD Unavailable Unavailable SEMEL, Marianela HELMS MD Unavailable Unavailable SEMEL, Marianela HELMS MD Unavailable Unavailable SEMEL, Marianela HELMS MD Unavailable Unavailable SEMEL, Marianela HELMS MD Unavailable Unavailable SEMEL, Marianela HELMS MD Unavailable Unavailable SEMEL, Marianela HELMS MD Unavailable Unavailable SEMEL, Marianela HELMS MD Unavailable Unavailable SEMEL, Marianela HELMS MD Unavailable Unavailable SEMEL, Marianela HELMS MD Unavailable Unavailable SEMEL, Marianela HELMS MD Unavailable Unavailable SEMEL, Marianela HELMS MD Unavailable Unavailable SEMEL, Marianela HELMS MD Unavailable Unavailable SEMEL, Marianela HELMS MD Unavailable Unavailable SEMEL, Marianela HELMS MD Unavailable Unavailable SEMEL, Marianela HELMS MD Unavailable Unavailable SEMEL, Marianela HELMS MD Unavailable Unavailable SEMEL, Marianela HELMS MD Unavailable Unavailable SEMEL, Marianela HELMS MD Unavailable Unavailable SEMEL, Marianela HELMS MD Unavailable Unavailable SEMEL, Marianela HELMS MD Unavailable Unavailable SEMEL, Marianela HELMS MD Unavailable Unavailable SEMEL, Marianela HELMS MD Unavailable Unavailable SEMEL, Marianela HELMS MD Unavailable Unavailable SEMEL, Marianela HELMS MD Unavailable Unavailable SEMEL, Marianela HELMS MD Unavailable Unavailable SEMEL, Marianela HELMS MD Unavailable Unavailable SEMEL, Marianela HELMS MD Unavailable Unavailable SEMEL, Marianela HELMS MD Unavailable Unavailable SEMEL, Marianela HELMS MD Unavailable Unavailable SEMEL, Marianela HELMS MD Unavailable Unavailable SEMEL, Marianela HELMS MD Unavailable Unavailable SEMEL, Marianela HELMS MD Unavailable Unavailable SEMEL, Marianela HELMS MD Unavailable Unavailable SEMEL, Marianela HELMS MD Unavailable Unavailable SEMEL, Marianela HELMS MD Unavailable Unavailable SEMEL, Marianela HELMS MD Unavailable Unavailable SEMEL, Marianela HELMS MD Unavailable Unavailable SEMEL, Marianela HELMS MD Unavailable Unavailable SEMEL, Marianela HELMS MD Unavailable Unavailable SEMEL, Marianela HELMS MD Unavailable Unavailable SEMEL, Marianela HELMS MD Unavailable Unavailable SEMEL, Marianela HELMS MD Unavailable Unavailable SEMEL, Marianela HELMS MD Unavailable Unavailable SEMEL, Marianela HELMS MD Unavailable Unavailable SEMEL, Marianela HELMS MD Unavailable Unavailable SEMEL, Marianela HELMS MD Unavailable Unavailable SEMEL, Marianela HELMS MD Unavailable Unavailable SEMEL, Marianela HELMS MD Unavailable Unavailable SEMEL, Marianela HELMS MD Unavailable Unavailable SEMEL, Marianela HELMS MD Unavailable Unavailable SEMEL, Marianela HELMS MD Unavailable Unavailable SEMEL, Marianela HELMS MD Unavailable Unavailable SEMEL, Marianela HELMS MD Unavailable Unavailable SEMEL, Marianela HELMS MD Unavailable Unavailable SEMEL, Marianela HELMS MD Unavailable Unavailable SEMEL, Marianela HELMS MD Unavailable Unavailable SEMEL, Marianela HELMS MD Unavailable Unavailable Marianela QUINONES MD Unavailable Unavailable Marianela QUINONES MD Unavailable Unavailable Re-disclosure Warning The records that you are about to access may contain information from federally-assisted alcohol or drug abuse programs. If such information is present, then the following federally mandated warning applies: This information has been disclosed to you from records protected by federal confidentiality rules (42 CFR part 2). The federal rules prohibit you from making any further disclosure of this information unless further disclosure is expressly permitted by the written consent of the person to whom it pertains or as otherwise permitted by 42 CFR part 2. A general authorization for the release of medical or other information is NOT sufficient for this purpose. The Federal rules restrict any use of the information to criminally investigate or prosecute any alcohol or drug abuse patient.The records that you are about to access may contain highly sensitive health information, the redisclosure of which is protected by Article 27-F of the [facility] Public Health law. If you continue you may have access to information: Regarding HIV / AIDS; Provided by facilities licensed or operated by the [facility] Office of Mental Health; or Provided by the [facility] Office for People With Developmental Disabilities. If such information is present, then the following [facility] mandated warning applies: This information has been disclosed to you from confidential records which are protected by state law. State law prohibits you from making any further disclosure of this information without the specific written consent of the person to whom it pertains, or as otherwise permitted by law. Any unauthorized further disclosure in violation of state law may result in a fine or fdc sentence or both. A general authorization for the release of medical or other information is NOT sufficient authorization for further disc losure. Allergies and Adverse Reactions Type Description Substance Reaction Status Data Source(s ) Drug allergy DILANTIN DILANTIN STOMACH PAIN [facility] Drug allergy CODEINE CODEINE STOMACH PAIN [facility] Family History Family Member Name Family Member Gender Family Member Status Date o f Status Description Data Source(s) Unknown Male Problem [facility] ([facility]) () - in neck Unknown Female Problem [facility] ([facility]) Unknown Female Problem [facility] ([facility]) Unknown Female Problem [facility] ([facility]) Unknown Female Problem [facility] ([facility]) Unknown Female Problem [facility] ([facility]) Encounters Encounter Providers Location Date Indications Data Source(s ) Outpatient Attender: SAM Neff/Patricia/Damon/Re indl 06/12/2021 09:00:00 AM EDT [facility] ([facility] ) Office Visit Attender: Marly MIKE PA-C Physical Therapy 06/01/2021 05:15:00 PM EDT [facility] ([facility] ) Office Visit Attender: Marly MIKE PA-C Physical Therapy 05/25/2021 09:45:00 AM EDT [facility] ([facility] ) OFFICE OUTPATIENT VISIT 15 MINUTES Attender: Marly MIKE PA-C Physical Therapy 05/09/2021 10:15:00 AM EDT [facility] ([facility] ) Outpatient Attender: Priscilla Neff/Patricia/Damon/Reindl 04/17/2021 10:00:00 AM EDT [facility] ([facility] ) Emergency Attender: FARRUKH CASH MDConsultant: DANYA STONE RELIEF PHARMACIST 04/12/2021 11:40:00 AM EDT - 04/12/2021 03:47:00 PM EDT [facility] Patient discharged. Outpatient Attender: SCOOTER QUINONES MD Main Office 03/23/2021 02:45:0 0 PM EDT [facility] ([facility]) Outpatient Referrer: SCOOTER QUINONES MD 2021 11:21:22 AM EDT [facility] Office Visit Attender: Haider Sommer MD Main office [facility] 01/03/2021 02:15:00 PM EDT [facility] ([facility] ) Outpatient Attender: Haider Sommer MDConsultant: DANYA WATERMAN RELIEF PHARMACIST 12/18/2020 10:38:00 AM EDT - 12/18/2020 11:38:00 AM EDT [facility] Patient discharged. Emergency Attender: CHIOMA BLACKBURNConsultant: DANYA STONE RELIEF PHARMACIST 11/27/2020 03:26:00 PM EDT - 11/27/2020 05:44:00 PM EDT [facility] Patient discharged. Outpatient Attender: Marly MIKE PA-C Physical Therapy 11/16/2020 10:15:00 AM EST [facility] ([facility]) Outpatient Attender: Haider Sommer MD Main office - [place] 11/16/2020 08:30:00 AM EST [facility] ([facility]) Outpatient Attender: DANYA JETT NP [facility] 09:30:00 AM EST [facility] ([facility]) Outpatient Attender: SILVER PETERSON MDConsultant: DANYA STONE NP 09/12/2020 01:20:00 PM EST - 09/12/2020 02:20:[address] [facility] Outpatient Attender: SILVER PETERSON MDConsultant: DANYA STONE NP 08/09/2020 02:27:00 PM EST - 08/09/2020 03:27:[address] [facility] Outpatient Attender: SILVER PETERSON MD [facility] 08/09 12:30:00 PM EST [facility] ([facility]) Outpatient Attender: DANYA JETT NP [facility] 09:15:00 AM EST [facility] ([facility]) Outpatient Attender: SILVER PETERSON MD [facility] 06/28 02:00:00 PM EDT [facility] ([facility]) Inpatient Attender: SILVER PETERSON MDConsultant: DANYA STONE NP 05/28/2020 12:30:00 PM EDT - 06/13/2020 11:02:00 AM EDT [facility] Patient discharged. Inpatient Attender: SILVER PETERSON MDConsultant: DANYA STONE NP 05/22/2020 02:00:00 PM EDT - 05/28/2020 11:00:00 AM EDT [facility] Patient discharged. Outpatient Attender: SILVER PETERSON MDConsultant: DANYA STONE NP 05/01/2020 05:05:00 PM EDT - 05/01/2020 06:05:00 PM EDT [facility] Immunizations Vaccine Date Status Description Data Source(s) COVID-19 VACCINE [facility] 11/22/2020 12:00:00 AM EDT completed [facility] Vaccine Series Complete: YESThis Data wa s Submitted to [facility] [employer]. Medications Medication Brand Name Start Date Product Form Dose Route Admi nistrative Instructions Pharmacy Instructions Status Indications Reaction Description Data Source(s) 2 ML Sodium Hyaluronate 10 MG/ML Prefilled Syringe [Euflexxa ] Euflexxa 05/25/2021 12:00:00 AM EDT active [facility] ([facility]) 30 ACTUAT fluticasone furoate 0.2 MG/ACT UAT / vilanterol 0.025 MG/ACTUAT Dry Powder Inhaler [Breo] Breo Ellipta 04/17/2021 12:00:00 AM EDT OR AL active [facility] ([facility]) Accu-Chek Gisele Plus 03/21/2021 12:00:00 AM EDT active [facility] ([facility]) Lidocaine 0.05 MG/MG Topical Ointment Lidocaine 12/12/2020 12:00:00 AM EDT active [facility] ([facility]) Covid-19 vaccine, Unspecified 11/22/2020 12:00:00 AM EDT completed [facility] ([facility]) Medication administered onsite sacubitril 24 MG / valsartan 26 MG Oral Tablet [Entresto] En tresto 11/01/2020 12:00:00 AM EST active M [facility] ([facility]) Calcitriol 0.55341 MG Oral Capsule Calcitriol 09/12/2020 12:00:[address] active [facility] ([facility]) Allopurinol 100 MG Oral Tablet Allopurinol 09/12/2020 12:00:00 AM EST active [facility] ([facility]) Methylprednisolone Methylprednisolone 08/01/2020 12:00:00 AM EST completed [facility] ([facility]) Docusate Sodium 100 MG Oral Capsule docusate sodium (, DSS,) 100 MG CAPS docusate sodium (,DSS,) 100 MG CAPS 04/13/2020 12:00:00 AM EDT 100 mg Oral active Take 1 capsule (100 mg total ) by mouth 2 (two) times a day Hold for loose stools [facility] Folic Acid 1 MG Oral Tablet folic acid (FOLVITE) 1 MG tablet folic acid (FOLVITE) 1 MG tablet 04/13/2020 12:00:00 AM EDT 1 mg Oral active Take 1 tablet (1 mg total) by mouth daily [facility] Insurance Providers Payer name Policy type / Coverage type Policy ID Covered democrat ID Covered democrat's relationship to vance Policy Vance Plan Information Ghi FHP-(DO Not Use) Medigap Part B [id number] Self 0 [id number] [place]hi FHP-(DO Not Use) Medigap Part B [id number] Self 0 [id number] Ghi FHP-(DO Not Use) Medigap Part B [id number] Self 0 [id number] Ghi FHP-(DO Not Use) Medigap Part B [id number] Self Ghi FHP-(DO Not Use) Medigap Part B [id number] Self 0 [id number] Ghi FHP-(DO Not Use) Medigap Part B [id number] Self 0 [id number] Ghi FHP-(DO Not Use) Medigap Part B [id number] Self 0 [id number] UHC UNITED MEDICARE COMPLETE [id number] Self [id number] MEDICARE [id number] [facility] [id number] Medicare [place] Med[place] Part B [id number] Self 0 [id number] [facility] [id number] [id number] Self [id number] [facility] [id number] [facility] [id number] Self Medicare [place] Med[place]ap Part B [id number] Self 0 [id number] Medicare [place] Med[place]ap Part B [id number] Self 0 [id number] Medicare [place] Med[place]ap Part B [id number] Self 0 [id number] Medicare [place] Med[place]ap Part B [id number] Self 0 [id number] Medicare [place] Med[place]ap Part B [id number] Self 0 [id number] [facility] [id number] Self [id number] [facility] [id number] Self UHC UNITED MEDICARE COMPLETE G [id number] Self [id number] [facility] Commercial [id number] Self [id number] [facility] ([facility]) Medigap Part B [id number] Self [id number] [facility] ([facility]) [facility] Part B [id number] Self [id number] [facility] ([facility]) Commercial [id number] Self [id number] [facility] ([facility]) Commercial [id number] Self [id number] [facility] ([facility]) [facility] Part B [id number] Self [id number] TODAYS OPTIONS [id number] SP [id number] AMER PROG TODAYS OPTIONS G [id number] Self [id number] WELLCARE [id number] SP [id number] WELLCARE [id number] SP [id number] WELLCARE [id number] SP [id number] WELLCARE MEDICARE [id number] [phone] [id number] WELLCARE MEDICARE [id number] Mahsa 09 [id number] WELLCARE MEDICARE [id number] Mahsa 09 [id number] INSURANCE COVID-19 COVID Mahsa C OVID [employer] Commercial [id number] [id number] Self [id number] [facility] [id number] SP [id number] TODAYS OPTIONS/BAHRAINI O [id number] S [id number] TODAYS OPTION MCR -I/P [id number] 18 [id number] MEDICARE PART A SHADOW BILLING [id number] 18 [id number] [employer] Commercial [id number] Self [id number] MEDICARE COMPLETE [id number] SP [id number] TOD[employer] OPTION MCR [id number] 18 [id number] TOD[employer] OPT[place] [id number] 18 [id number] [employer] Commercial [id number] Self [id number] MEDICARE COMPLETE [id number] SP [id number] MEDICARE COMPLETE-UHC O [id number] S [id number] TODAYS OPTION -O/P [id number] 18 [id number] TODAYS OPTIONS [id number] SP [id number] WELLCARE [id number] SP [id number] WELLCARE O [id number] S [id number] INSURANCE COVID-19 [id number] [id number] MEDICARE [id number] SP [id number] A INSURANCE COVID-19 COVID Mahsa C OVID [employer] [place]/UNHC MEDICARE -CLINIC [id number] 18 [id number] [employer] [place]/UNHC MEDICARE-O/P [id number] 18 [id number] MEDICARE [id number] SP [id number] TODAYS OPTIONS [id number] SP [id number] MEDICARE COMPLETE-UHC O [id number] S [id number] MEDICARE COMPLETE-UHC O [id number] S [id number] INSURANCE COVID-19 COVID Mahsa C OVID WELLCARE -I/P [id number] 18 [id number] WELLCARE - SWING [id number] 18 [id number] WELLCARE -O/P [id number] 18 [id number] [facility] Commercial [id number] Self MEDICARE UNAVAILABLE SP UNAVAILA BLE OTHER LIABILITY O [id number] O [id number] OTHER LIABILITY [id number] SP [id number] [employer] O [id number] S [id number] MEDICARE COMPLETE [id number] SP [id number] EVERCARE [id number] SP [id number] [employer] [id number] SP [id number] [employer]URE [employer] [id number] SP [id number] MEDICARE [id number] SP [id number] A [employer] PLUS [id number] SP [id number] GHI [employer]ILY [employer] PLUS [id number] SP [id number] TODAYS OPTIONS [id number] SP [id number] MEDICARE PART A SHADOW BILLING [id number] 18 [id number] [employer] UN MEDICARE -PHYSICIAN [id number] 18 [id number] [employer]/UNHC MEDICARE- [id number] 18 [id number] MEDICARE [id number] SP [id number] [facility] P [id number] S [id number] UNHC AMERICHOICE XIX -HMO [id number] 18 [id number] MEDICARE COMPLETE-[facility] P [id number] S [id number] [employer] Commercial [id number] [id number] Self [id number] A Problems, Conditions, and Diagnoses Code Display Name Description Problem Type Effective Dates Data Source(s) R02261 Personal history of nicotine dependence Personal history of nicotine dependence Diagnosis 04/12/2021 11:40:00 AM EDT [facility] Z8701 Personal history of pneumonia (recurrent ) Personal history of pneumonia (recurrent) Diagnosis 04/12/2021 11:40:00 AM EDT [facility] Z950 Presence of cardiac pacemaker Presence of cardiac pace maker Diagnosis 04/12/2021 11:40:00 AM [facility] 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 Z7982 FDC (current) use of aspirin terminal block assembler (cu rrent) use of aspirin Diagnosis 04/12/2021 11:40:00 AM EDT [facility] [id number] CONTACT WITH AND SUSPECTED EXPOSURE TO C OVID-19 CONTACT WITH AND SUSPECTED EXPOSURE TO COVID-19 Diagnosis 04/12/2021 11:40:00 AM EDT [facility] E119 Type 2 diabetes mellitus without complic ations Type 2 diabetes mellitus without complications Diagnosis 04/12/2021 11:40:00 AM EDT [facility] I10 Essential (primary) hypertension Essential (primary) h ypertension Diagnosis 04/12/2021 11:40:00 AM EDT [facility] J441 Chronic obstructive pulmonary disease wi th (acute) exacerbation Chronic obstructive pulmonary disease with (acute) exacerbation Diagnosis 04/12/2021 11:40:00 AM EDT [facility] R05 Cough Cough Diagnosis 04/12/2021 11:40:00 AM ED T [facility] 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, cervical region Diagnosis 12/18/2020 10:38:00 AM EDT [facility] R2681 Unsteadiness on feet Unsteadiness on feet Diagnosis 12/18/2020 10:38:00 AM EDT [facility] G4089 Other seizures Other seizures Diagnosis 12/18/2020 10:38: 00 AM EDT [facility] G250 Essential tremor Essential tremor Diagnosis 12/18/2020 10 :38:00 AM EDT [facility] B90989 Unspecified place in unspeci fied non-institutional (private) residence as the place of occurrence of the external cause Unspecified place in unspecified non-institutional (private) residence as the place of occurrence of the external cause Diagnosis 11/27/2020 03:26:00 PM EDT [facility] [id number] Fall on same level from slip ping, tripping and stumbling without subsequent striking against object, initial encounter Fall on same level from slipping, tripping and stumbling without subsequent striking against object, initial encounter Diagnosis 11/27/2020 03:26:00 PM EDT [facility] [id number] Contusion of left hip, initial encounter Contusion of left hip, initial encounter Diagnosis 11/27/2020 03:26:00 PM EDT [facility] [id number] Contusion of right knee, initial encount er Contusion of right knee, initial encounter Diagnosis 11/27/2020 03:26:00 PM EDT [facility] J181 Lobar pneumonia, unspecified organism Lo bar pneumonia, unspecified organism Diagnosis 11/27/2020 03:26:00 PM EDT [facility] [id number] Contusion of left front wall of thorax, initial encounter Contusion of left front wall of thorax, initial encounter Diagnosis 03:26:00 PM EDT [facility] [id number] Unspecified injury of thorax, initial en counter Unspecified injury of thorax, initial encounter Diagnosis 11/27/2020 03:26:00 PM EDT [facility] 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 [id number] Unspecified injury of left elbow, initia l encounter Unspecified injury of left elbow, initial encounter Diagnosis 09/12/2020 01:20:[address] [facility] [id number] Unspecified injury of lower back, initia l encounter Unspecified injury of lower back, initial encounter Diagnosis 09/12/2020 01:20:[address] [facility] D649 Anemia, unspecified Anemia, unspecified Diagnosis 0 09/12/2020 01:20:[address] [facility] E8342 Hypomagnesemia Hypomagnesemia Diagnosis 08/09/2020 02:27: [address] [facility] I509 Heart failure, unspecified Heart failure, unspecified Diagnosis 08/09/2020 02:27:[address] [facility] [id number] Presence of other cardiac implants and g rafts Presence of other cardiac implants and grafts Diagnosis [facility]/28[facility] Unspecified atrial fibrillation Unspecified atrial fib rillation Diagnosis 05/28/2020 [facility] E875 Hyperkalemia Hyperkalemia Diagnosis 05/28/2020 12:30:[facility] Z[facility] Presence of other heart-valve replacemen t Presence of other heart-valve replacement Diagnosis 05/28/2020 [facility] Z[facility] Do not resuscitate Do not resuscitate Diagnosis 0 12:30:[facility] N189 Chronic kidney disease, unspecified Chronic kidn ey disease, unspecified Diagnosis 05/28/2020 12:30:00 PM EDT [facility] N179 Acute kidney failure, unspecified Acute kidney f ailure, unspecified Diagnosis 05/28/2020 12:30:00 PM EDT [facility] J9602 Acute respiratory failure with hypercapn ia Acute respiratory failure with hypercapnia Diagnosis 05/28/2020 12:30:00 PM EDT [facility] M6281 Muscle weakness (generalized) Muscle weakness (general ized) Diagnosis 05/28/2020 12:30:00 PM EDT [facility] I5020 Unspecified systolic (congestive) heart failure Unspecified systolic (congestive) heart failure Diagnosis 05/28/2020 12:30:00 PM EDT [facility] R600 Localized edema Localized edema Diagnosis 05/22/2020 02:0 0:00 PM EDT [facility] E8351 Hypocalcemia Hypocalcemia Diagnosis 05/22/2020 02:00:00 P M EDT [facility] J95788 Nicotine dependence, cigarettes, uncompl icated Nicotine dependence, cigarettes, uncomplicated Diagnosis 05/22/2020 02:00:00 PM EDT [facility] J449 Chronic obstructive pulmonary disease, u nspecified Chronic obstructive pulmonary disease, unspecified Diagnosis 05/22/2020 02:00:00 PM EDT [facility] Z87.891 Ex-smoker Ex-smoker Problem 04/17/2021 12:00:00 AM ED T [facility] (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 Problem 11/16/2020 12:00:00 AM EST [facility] ([facility], ) R26.81 Abnormal gait Abnormal gait Problem 11/16/2020 12:00:00 AM EST [facility] ([facility], ) G25.0 Essential tremor Essential tremor Problem 11/16/2020 12 :00:00 AM EST [facility] ([facility], ) Surgeries/Procedures Procedure Description Date Indications Data Source(s) Insertion Of Tunneled Centrally Inserted Central Venous Cath eter 06/12/2021 12:00:00 AM EDT [facility] ([facility]) Ultrasound Guidance For Vascular Access Requiring Ultrasound Eval 06/12/2021 12:00:00 AM EDT [facility] ([facility]) Fluoroscopic Guidance For Central Venous Access Device Place ment 06/12/2021 12:00:00 AM EDT [facility] ([facility]) [facility]/DAY 25 MINUTES 06/12/2021 12:00:00 AM EDT [facility] ([facility]) ARTHROCENTESIS ASPIR&/INJECTION MAJOR JT/BURSA 021 12:00:00 AM EDT [facility] ([facility]) ARTHROCENTESIS ASPIR&/INJECTION MAJOR JT/BURSA 021 12:00:00 AM EDT [facility] ([facility]) ARTHROCENTESIS ASPIR&/INJECTION MAJOR JT/BURSA 021 12:00:00 AM EDT [facility] ([facility]) OFFICE OUTPATIENT VISIT 15 MINUTES 05/09/2021 12:00:00 AM EDT [facility] ([facility]) DEMO&/EVAL OF PT UTILIZ AERSL GEN/NEB/INHLR/IPPB 04/17 12:00:00 AM EDT [facility] ([facility], ) OFFICE OUTPATIENT NEW 45 MINUTES 04/17/2021 12:00:00 A M EDT [facility] ([facility], ) ELECTROENCEPHALOGRAM W/REC AWAKE&ASLEEP 01/08/2021 12: 00:00 AM EDT [facility] ([facility], ) ELECTROENCEPHALOGRAM W/REC AWAKE&ASLEEP 01/08/2021 12: 00:00 AM EDT [facility] ([facility], ) PROGRAM EVAL IMPLANTABLE IN PRSN MULTI LD PACER 2020 12:00:00 AM EDT [facility] ([facility]) ARTHROCENTESIS ASPIR&/INJECTION MAJOR JT/BURSA 021 12:00:00 AM EST [facility] ([facility]) RADIOLOGIC EXAM KNEE COMPLETE 4/MORE VIEWS 11/16/2020 12:00:00 AM EST [facility] ([facility]) OFFICE OUTPATIENT VISIT 25 MINUTES 11/16/2020 12:00:00 AM EST [facility] ([facility]) ECG ROUTINE ECG W/LEAST 12 LDS W/I&R 10/30/2020 12:00: 00 AM EST [facility] ([facility]) OFFICE OUTPATIENT VISIT 15 MINUTES 10/30/2020 12:00:00 AM EST [facility] ([facility]) PROGRAM EVAL IMPLANTABLE IN PERSN DUAL LD PACER 2020 12:00:00 AM EST [facility] ([facility]) OFFICE OUTPATIENT VISIT 15 MINUTES 09/12/2020 12:00:00 AM EST [facility] ([facility]) PROGRAM EVAL IMPLANTABLE IN PERSN DUAL LD PACER 2019 12:00:00 AM EST [facility] ([facility]) PROGRAM EVAL IMPLANTABLE IN PRSN MULTI LD PACER 2019 12:00:00 AM EDT [facility] ([facility]) Computerized Tomography (CT Scan) of Chest and Abdomen Computerized Tomography (CT Scan) of Chest and Abdomen 06/05/2020 12:00:00 AM [facility] Plain Radiography of Chest Plain Radiography of Chest 2019 12:00:00 AM [facility] Monitoring of Cardiac Electrical Activity, External Ap proach Monitoring of Cardiac Electrical Activity, External Approach 05/28/2020 12:00:00 AM [facility] Introduction of Anesthetic Agent into Re spiratory Tract, Via Natural or Artificial Opening Introduction of Anesthetic Agent into Re spiratory Tract, Via Natural or Artificial Openin 05/28/2020 12:00:00 AM [facility] Introduction of Vasopressor into Peripheral Vein, Perc utaneous Approach Introduction of Vasopressor into Peripheral Vein, Percutaneous Approach 05/28/2020 12:00:00 AM [facility] Introduction of Electrolytic and Water B alance Substance into Peripheral Vein, Percutaneous Approach Introduction of Electrolytic and Water B alance Substance into Peripheral Vein, Percutaneous Approach 05/28/2020 12:00:00 AM [facility] Results ID Date Data Source [id number] 06/13/2021 08:25:00 AM EDT [facility] Name Value Range Interpretation Code Description Data Ro rce(s) Supporting Document(s) SARS coronavirus 2 RNA [Presence] in Res piratory specimen by AMARA with probe detection POSITIVE [facility] This lab was ordered by [facility] a nd reported by [facility]. ID Date Data Source [id number] 06/09/2021 04:08:00 AM EDT [facility] Name Value Range Interpretation Code Description Data Ro rce(s) Supporting Document(s) SARS coronavirus 2 RNA [Presence] in Res piratory specimen by AMARA with probe detection NEGATIVE [facility] This lab was ordered by [facility] a nd reported by [facility]. ID Date Data Source [id number] 06/08/2021 11:44:00 PM EDT [facility] ([facility]) Name Value Range Interpretation Code Description Data Ro rce(s) Supporting Document(s) Laboratory test finding (navigational concept) Laboratory test r esult Normal (applies to non-numeric results) [facility] ([facility]) Laboratory test finding (navigational concept) Laboratory test r esult Normal (applies to non-numeric results) [facility] ([facility]) Laboratory test finding (navigational concept) 5.0 units 5 .0-9.0 Normal (applies to non-numeric results) [facility] ([facility]) Laboratory test finding (navigational concept) 1.013 1 .002-1.035 Normal (applies to non-numeric results) [facility] ([facility]) Laboratory test finding (navigational concept) Laboratory test r esult Above high normal [facility] ([facility]) Laboratory test finding (navigational concept) Laboratory test r esult Normal (applies to non-numeric results) [facility] ([facility]) Laboratory test finding (navigational concept) Laboratory test r esult Normal (applies to non-numeric results) [facility] ([facility]) Laboratory test finding (navigational concept) 0.2 mg/dL 0 .0-2.0 Normal (applies to non-numeric results) [facility] ([facility]) Laboratory test finding (navigational concept) Laboratory test r esult Normal (applies to non-numeric results) [facility] ([facility]) Laboratory test finding (navigational concept) Laboratory test r esult Normal (applies to non-numeric results) [facility] ([facility]) Laboratory test finding (navigational concept) Laboratory test r esult Normal (applies to non-numeric results) [facility] ([facility]) Laboratory test finding (navigational concept) Laboratory test r esult Above high normal [facility] ([facility]) Laboratory test finding (navigational concept) 1 /HPF 0 -3 Normal (applies to non-numeric results) [facility] ([facility]) Laboratory test finding (navigational concept) 2 /HPF 0 -3 Normal (applies to non-numeric results) [facility] ([facility]) Laboratory test finding (navigational concept) Laboratory test r esult Above high normal [facility] ([facility]) Laboratory test finding (navigational concept) 0 /HPF 0 -6 Normal (applies to non-numeric results) [facility] ([facility]) Laboratory test finding (navigational concept) 0 /LPF 0 -1 Normal (applies to non-numeric results) [facility] ([facility]) ID Date Data Source [id number] 06/08/2021 07:51:00 PM EDT [facility] Name Value Range Interpretation Code Description Data Ro rce(s) Supporting Document(s) SARS-CoV-2 (COVID 19) NEGATIVE - SARS-CoV-2 (COVID19) [facility] This lab was ordered by [facility] a nd reported by [facility]. ID Date Data Source [id number] 04/12/2021 11:40:00 AM EDT [facility] 1 OrderSheet [facility] Emergency Department [address] [place] [address] Phone #: ext- [phone] 04/12/2021 11:39 [facility]: [id number] Sex: F : 1945 Age: 76yWEIGHT:84.8 kg (M) HEIGHT:63 inches (S) BMI:33.1ALLERGIES: Codeine, DilantinCHIEF COMPLAINT: coughDIAGNOSIS: Chronic obstructive lung diseaseLAB ORDERSOrder Description Priority Entered Acknowledged InitialedCBC w Diff STAT 12:04/12/2021 12:19 Osmar Whalen RN P.A.-C;CMP STAT 12:04/12/2021 12:19 Osmar Whalen RN P.A.-C;Lipase STAT 12:04/12/2021 12:19 Osmar Whalen RN P.A.-C;PT/PTT STAT 12:04/12/2021 12:19 Osmar Whalen RN P.A.-C;Troponin-T STAT 12:04/12/2021 12:19 Osmar Whalen RN P.A.- C;Magnesium STAT 12:04/12/2021 12:19 Osmar Whalen RN P.A.-C;BNP STAT 12:04/12/2021 12:19 Osmar Whalen RN P.A.-C;TSH STAT 12:04/12/2021 12:19 Osmar Whalen RN P.A.-C;Urinalysis (Clean STAT 12:04/12/2021 13:45 OsmarCatch) Luis Whalen RN P.A.-C;COVID-19 CAH STAT 12:04/12/2021 12:19 Osmar(Symptomatic as Luis Whalen RNDefined by CDC) P.A.-C;([id number]) 2 OrderSheet [facility] Emergency Department [address] [place] [address] Phone #: ext- [phone] 04/12/2021 11:39 Patient: DONALD ARM[id number] Sex: F : 1945 Age: 76y(Unknown if FristTest) (NotHospitalized)(Unknown if) (NotResident inCongregate CareSetting) (NotEmployed inHealthcare Setting) NOTES: ? admissoinInfluenza Nasal A B STAT 12:17 04/12/2021 12:19 Osmar Whalen RN P.A.-C;DIAGNOSTIC STUDY ORDERSOrder Description Priority Entered Acknowledged InitialedChest Portable 1 STAT 12:17 04/12/2021 12:20 Art Whalen RN(Oxygen?(No)) P.A.-C; Reason for Study: cough, congestion, hx of COPD. ? PNU vs COPD flare vs CHF flare vs other.CT Chest W/O Cont STAT 13:42 04/12/2021 13:45 Osmar(Oxygen?(No)) Luis Whalen RN P.A.-C; Reason for Study: NO CONTRAST: ? Abnormal CXR portableMEDICATION/IV/DRIP/FLUID ORDERSOrder Description Priority Entered Acknowledged InitialedNS IV 500 mL 12:28 04/12/2021 Cancelled: Other 12:32 ChristopherBolus: : Bolus 500 Luis Wooten P.A.-CmL (X1) P.A.-C;SOLU-Medrol 125 12:28 04/12/2021 Cancelled: Other 12:32 Christophermg IV X1 Dose: 125 Luis Wooten P.A.-Cmg (X1) P.A.-C;DuoNeb 3 mL X2 12:28 04/12/2021 Cancelled: Other 12:32 ChristopherDoses: 6 mL (3 mL Luis Wooten P.A.-CX2 Doses) P.A.-C;DuoNeb 3 mL X2 13:42 04/12/2021 14:09 PeterDoses: 6 mL (3 mL Luis Whalen RNX2 Doses) P.A.-C;SOLU-Medrol 125 13:42 04/12/2021 13:48 Petermg IV X1 Dose: 125 Luis Whalen RN 3 OrderSheet [facility] Emergency Department [address] [place] [address] Phone #: ext- [phone] 04/12/2021 11:39 Patient: DONALD ARMANDO Sex: F : 1945 Age: 76ymg (X1) P.A.-C;GENERAL ORDERSOrder Description Priority Entered Acknowledged InitialedBlood Pressure 12:04/12/2021 12:19 Marcellus Whalen RN P.A.-C;Street Cleaning Equipment Operator 12:04/12/2021 12:19 Osmar(continuous) Luis Whalen RN P.A.-C;EKG 12:04/12/2021 12:27 Chari Wooten larriman helperDamaso P.A.-C; Ilww4PAG 12:17 04/12/2021 12:19 Osmar Whalen RN P.A.-C;Obtain Old EKG 12:04/12/2021 12:19 Osmar Whalen RN P.A.-C;Obtain Old Records 12:17 04/12/2021 12:19 Osmar Whalen RN P.A.-C;Oxygen titrate to 12:04/12/2021 12:19 Osmar92% Luis Whalen RN P.A.-C;Pulse oximeter 12:04/12/2021 12:19 Osmar(Continuous) Luis Whalen RN P.A.-C;Saline Lock 12:04/12/2021 12:34 Osmar Whalen RN P.A.-C;Vitals 12:04/12/2021 12:19 Osmar Whalen RN P.A.-C;Oxygen (3 L/min) 12:17 04/12/2021 12:19 Osmar([place]) (Titrate to O2 Luis Whalen RNSat >92%) P.A.-C;-- (Ambulation oO2 14:54 04/12/2021 15:04 Petersat. ) Luis Whalen RN, P.A.-C;[Electronically signed by Osmar Whalen RN (15:46 04/12/2021)][Electronically signed by Luis Wooten P.A.-C (23:23 04/12/2021)] 4 OrderSheet [facility] Emergency Department [address] [place] [address] Phone #: ext- [phone] 04/12/2021 11:39 Patient: DONALD ARMANDO Sex: F : 1945 Age: 76y[Electronically locked by Osmar Whalen RN (15:46 04/12/2021)] Name Value Range Interpretation Code Description Data Ro rce(s) Supporting Document(s) ID Date Data Source [id number] 04/12/2021 11:40:00 AM EDT [facility] 1 Medication Reconciliation Report [facility] Emergency Department [address] [place] [address] Phone #: ext- [phone] 04/12/2021 11:39 Patient: DONALD ARMANDO Sex: F : 1945 Age: 76yWeight: 84.8 kgHeight/Length: 63 in.BMI: 33.1ALLERGIES: Codeine, DilantinThe patient's Home Medications are listed below:THE FOLLOWING MEDICATIONS NEED TO BE RECONCILED: Aspirin Oral (325 mg), daily Atorvastatin Calcium Oral (20 mg) 1 tablet, at bedtime Calcium 600 Oral Ferrous Sulfate Oral (325 (65 Fe) mg) 1 tablet, daily Furosemide Oral 40 mg, daily Ipratropium-Albuterol Inhalation Losartan Potassium Oral 100 mg, daily metFORMIN HCl Oral (1000 mg), 2x a day Oxygen Pantoprazole Sodium Oral (40 mg) 1 tablet, daily Raloxifene HCl Oral (60 mg) 1 tablet, daily raNITIdine HCl Oral 300 mg, daily, at bedtime Ventolin HFA Inhalation Vitamin B12 Oral Vitamin D3 Oral 50mcg, daily 2 Medication Reconciliation Report [facility] Emergency Department [address] [place] [address] Phone #: ext- [phone] 04/12/2021 11:39 Patient: DONALD ARMANDO Sex: F : 1945 Age: 76yThe source(s) of the original Home Medication information:Not obtained.The following Medications were given to the patient in the Emergency Department:Solu-Medrol [IVP] IVP 125 mg, administered: 13:48 1Duoneb [Neb Tx] Neb TX 2 unit dose, administered: 14:09 04/12/2021The following Medications were prescribed to the patient:prednisone 50 mg tablet Take 1 tablet once a day with meals for 5 days -- Dispense 5 tablet. Refills: 0.Substitution permitted.[facility] #[id number] [phone]. .azithromycin 250 mg tablet Take 2 tablet single dose for 1 days -- Take 2 tabs by mouth and day 1`andthen 1 tab by mouth for days 2-5. Dispense 6 tablet. Refills: 0. Substitution permitted.[facility] #[id number] - [address] [place], [place] [phone]. . -- Luis Wooten P.A.-C Name Value Range Interpretation Code Description Data [facility](s) Supporting Document(s) ID Date Data Source [id number] 04/12/2021 11:40:00 AM EDT [place] [address] Medication Administration Record [facility] Emergency Department [address] [place] [address] Phone #: ext- [phone] 04/12/2021 11:39 Patient: DONALD ARMANDO Sex: F : 1945 Age: 76yWeight: 84.8 kgHeight/Length: 63 inBMI: 33.1ALLERGIES: Codeine, Dilantin Date/Time Medication Administered Medication OrderedGiven DUONEB [NEB TX] DuoNeb 3 mL X2 Doses: 6 mL (314:09 04/12/2021 Dose: 2 unit dose Nebulizer Neb TX mL X2 Doses)Osmar Whalen RNGiven SOLU- MEDROL [IVP] SOLU-Medrol 125 mg IV X1 Dose:13:48 04/12/2021 (METHYLPREDNISOLONE SODIUM 125 mg (X1)Osmar Whalen RN SUCC) Dose: 125 mg IVP Site: #1 right forearm Name Value Range Interpretation Code Description Data [facility](s) Supporting Document(s) ID Date Data Source [id number] 04/12/2021 11:40:00 AM EDT [facility] 1 General Instructions [facility] Emergency Department [address] [place] [address] Phone #: ext- [phone] 04/12/2021 11:39 Patient: DONALD ARMANDO Sex: F : 1945 Age: 76yAcute exacerbation of COPD.INSTRUCTIONSTake Tylenol (Acetaminophen) or Motrin (Ibuprofen) as needed for fever control. Take medicationaccording to label instructions.Drink plenty of fluids. No dietary restrictions.Warnings: Further evaluation is necessary.GENERAL WARNINGS: Return or contact your physician immediately if your condition worsens orchanges unexpectedly, if not improving as expected, or if other problems arise.Prescription Medications:prednisone 50 mg tablet Take 1 tablet once a day with meals for 5 days -- Dispense 5 tablet. Refills: 0.Substitution permitted.Pharmacy [id number] [place] [address]. .azithromycin 250 mg tablet Take 2 tablet single dose for 1 days -- Take 2 tabs by mouth and day 1`andthen 1 tab by mouth for days 2-5. Dispense 6 tablet. Refills: 0. Substitution permitted.Pharmacy - [facility] #[id number] [phone] .Follow-up:Return to the emergency department as needed. Follow up with your healthcare provider in about twodays if not better. Call for an appointment. Follow up with a computer lab aide and senior sales engineer as scheduled.Understanding of the discharge instructions verbalized by patient. ADDITIONAL INFORMATIONCOPD Flare 2 General Instructions [facility] Emergency Department [address] [place] [address] Phone #: ext- [phone] 04/12/2021 11:39 Patient: DONALD ARMANDO Sex: F : 1945 Age: 76yYou have had a flare-up of your COPD.COPD (chronic obstructive pulmonary disease) is a common lung disease. It causes your airways toget irritated and narrower. This makes it harder for you to breathe. Emphysema and chronicbronchitis are both types of COPD. This is a long-term (chronic) condition. This means you alwayshave it. Sometimes it gets worse. When this happens, it is called a flare- up.Symptoms of COPDPeople with COPD may have symptoms most of the time. In a flare-up, your symptoms get worse.These symptoms may mean you are having a flare-up: Shortness of breath, shallow or rapid breathing, or wheezing that gets worse Lung infection Cough that gets worse More mucus, thicker mucus or mucus of a different color 3 General Instructions [facility] Emergency Department [address] [place] [address] Phone #: ext- [phone] 04/12/2021 11:39 Patient: DONALD ARMADNO Sex: F : 1945 Age: 76y Tiredness, less energy, or trouble doing your normal activities Fever Chest tightness Your symptoms don't get better even when you use your normal medicines, inhalers, and nebulizer Trouble talking You feel confusedCauses of flare-upsUnfortunately, a flare-up can happen even if you did everything right. And even if you followed yourhealthcare provider's i nstructions. Some causes of flare-ups are: Smoking or secondhand smoke Colds, the flu, or respiratory infections Air pollution Sudden change in the weather Dust, irritating chemicals, or strong fumes Not taking your medicines as prescribedHome careHere are some things you can do at home to treat a flare-up: Try not to panic. This makes it harder to breathe, and keeps you from doing the right things. Don't smoke or be around others who are smoking. Try to drink more fluids than normal during a flare-up, unless your healthcare provider has told you not to because of heart and kidney problems. More fluids can help loosen the mucus. Use your inhalers and nebulizer, if you have one, as you have been told to. When using a metered dose inhaler or nebulizer, it's very important to use the proper techniques. If you have any questions about how to use your device, contact your healthcare provider or refer to the user manual. If you were given antibiotics, take them until they are used up or your provider tells you to stop. It's important to finish the antibiotics, even though you feel better. This will make sure the infection has cleared. 4 General Instructions [facility] Emergency Department [address] [place] [address] Phone #: ext- [phone] 04/12/2021 11:39 [facility]: [id number] Sex: F : 1945 Age: 76y If you were given a steroid, finish it even if you feel better. Learn the names of your medicines, as well as how and when to use them. Talk with your provider about other conditions you have and their treatment and how it may affect your COPD. Oxygen may be prescribed if tests show that your blood contains too little oxygen. Ask your provider about long-term oxygen therapy. Coping tips for shortness of breath include: o Exercise. Try to be as active as possible. This will improve energy levels and strengthen your muscles, so you can do more. o Breathing methods. Ask your healthcare provider or nurse to show you how to do pursed-lip breath ing. o Balance rest and activity. Each day, try to balance rest periods with activity. For example, you might start the day with getting dressed and eating breakfast. Then you can relax and read the paper. After that, take a brief walk. And then sit with your feet up for a while. o Pulmonary rehab (rehabilitation). These programs help with managing your disease, breathing methods, exercise, support, and counseling. To find one, ask your provider or call your local hospital. Also, talk with your healthcare provider about a self- management program. o Healthy eating. Eating a healthy, balanced diet is important to staying as healthy as possible. So is trying to stay at your ideal weight. Make sure you have a lot of fruits and vegetables every day. And also eat balanced portions of whole grains, lean meats and fish, and low-fat dairy products.Preventing a dicxl-ezJzago-vmy happen. But the best way to treat one is to prevent it before it starts. Here are somepointers: Don't smoke or be around others who are smoking. Avoid using e-cigarettes due to their harmful side effects. Take your medicines as discussed with your healthcare provider. Talk with your provider about getting a flu shot every year. Also find out if you need a pneumonia shot. If there is a weather advisory warning to stay indoors, try to stay inside when possible. 5 General Instructions [facility] Emergency Department [address] [place] [address] Phone #: ext- [phone] 04/12/2021 11:39 Patient: DONALD ARMANDO [id number] Sex: F : 1945 Age: 76y Try to eat healthy, exercise, and get plenty of sleep. Try to stay away from things that normally set you off. These include dust, chemical fumes, hairsprays, or strong perfumes.Follow-up careFollow up with your healthcare provider, or as advised.If a culture was done, you will be told if your treatment needs to be changed. You can call asdirected for the results.If X-rays were done, you will be told of any new findings that may affect your care.During each appointment, talk with your healthcare provider about your ability to: [place] in your normal environment Correctly use inhaler (or your medicine delivery systems) [place] with other conditions you have and their treatments and how they may affect your COPDCall 911Call 911 if any of these occur: Wheezing or shortness or breath does not get better with treatment Chest pain or chest tightness Feeling lightheaded or dizzy You have trouble breathing You feel confused or it's hard to wake you up You faint or lose consciousness You have a rapid heart rate You have new pain in your chest, arm, shoulder, neck, or upper backWhen to seek medical adviceCall your healthcare provider right away if any of these occur: Fever of 100.4F (38C) or higher, or as directed by your healthcare provider Coughing up lots of dark-colored or bloody mucus (sputum) 6 General Instructions [facility] Emergency Department [address] [place] [address] Phone #: ext- [phone] 04/12/2021 11:39 Patient: DONALD ARMANDO Sex: F : 1945 Age: 76y You don't start to get better within 24 hours Swelling of your ankles gets worse Weakness [id number] [employer]. [address] [place] [address]. All rights reserved. This information is not intended as asubstitute for professional medical care. Always follow your healthcare professional's instructions.Bronchitis, Antibiotic Treatment (Adult)Bronchitis is an infection of the air passages (bronchial tu bes) in your lungs. It often occurs when youhave a cold. This illness is contagious during the first few days and is spread through the air bycoughing and sneezing, or by direct contact (touching the sick person and then touching your owneyes, nose, or mouth).Symptoms of bronchitis include cough with mucus (phlegm) and low-grade fever. Bronchitis usually 7 General Instructions [facility] Emergency Department [address] [place] [address] Phone #: ext- [phone] 04/12/2021 11:39 Patient: [facility]ALD [facility]AND[facility] [id number] Sex: F : 1945 Age: 76ylasts 7 to 14 days. Mild cases can be treated with simple home remedies. More severe infection istreated with an antibiotic.Home careFollow these guidelines when caring for yourself at home: If your symptoms are severe, rest at home for the first 2 to 3 days. When you go back to your usual activities, don't let yourself get too tired. Don't smoke. Also stay away from secondhand smoke. You may use vbib-dtx-qrhyzxb medicines to control fever or pain, unless another medicine was prescribed. If you have chronic liver or kidney disease or have ever had a stomach ulcer or gastrointestinal bleeding, talk with your healthcare provider before using these medicines. Also talk to your provider if you are taking medicine to prevent blood clots. Aspirin should never be given to anyone younger than 18 who is ill with a viral infection or fever. It may cause severe liver or brain damage. Your appetite may be l ow, so a light diet is fine. Stay well hydrated by drinking 6 to 8 glasses of fluids per day. This includes water, soft drinks, sports drinks, juices, tea, or soup. Extra fluids will help loosen mucus in your nose and lungs. Gahu-asw-aplqboa cough, cold, and sore-throat medicines will not shorten the length of the illness, but they may be helpful to reduce your symptoms. Don't use decongestants if you have high blood pressure. Finish all antibiotic medicine. Do this even if you are feeling better after only a few days.Follow-up careFollow up with your healthcare provider, or as advised. If you had an X-ray or ECG(electrocardiogram), a specialist will review it. You will be told of any new test results that may affectyour care.If you are age 65 or older, if you smoke, or if you have a chronic lung disease or condition that affectsyour immune system, ask your healthcare provider about getting a pneumococcal vaccine and ayearly flu shot (influenza vaccine).When to seek medical adviceCall your healthcare provider right away if any of these occur: Fever of 100.4F (38C) or higher, or as directed by your healthcare provider Coughing up more sputum 8 General Instructions [facility] Emergency Department [address] [place] [address] Phone #: ext- [phone] 04/12/2021 11:39 Patient: DONALD ARMANDO Sex: F : 1945 Age: 76y Weakness, drowsiness, headache, facial pain, ear pain, or a stiff neckCall 911Call 911 if any of these occur. Coughing up blood Weakness, drowsiness, headache, or stiff neck that get worse Trouble breathing, wheezing, or pain with breathing [id number] [employer]. [address] [place] [address]. All rights reserved. This information is not intended as asubstitute for professional medical care. Always follow your healthcare professional's instructions. You have been given the following additional information: COPD Flare Bronchitis, Antibiotic Treatment (Adult)(Electronically signed by Luis Wooten P.A.-C 04/12/2021 23:23) Name Value Range Interpretation Code Description Data Ro rce(s) Supporting Document(s) ID Date Data Source [id number] 04/12/2021 11:40:00 AM EDT [facility] 1 Clinical Report - Nurses [facility] Emergency Department [address] [place] [address] Phone #: [phone]- [phone] 04/12/2021 11:39 Patient: DONALD ARMANDO Sex: F : 1945 Age: 76yTRIAGEArrived by private vehicle. Historian: patient. Accompanied by family.Acuity: LEVEL 3.Chief Complaint: COUGH and (SOB with ambulation).Onset. (1 - 2 weeks ago). ( pt states she has had a persistent cough for about the past 1-2 weeks,coughing up a yellow sputum, she went to see Emelina Jett NP and was sent here for possible CHF).Treatment [employer]:Recently seen in the office.SEPSIS SCREEN: SIRS SCREEN NEGATIVE. SEPSIS SCREEN NEGATIVE. No suspected or confirmedsigns of infection present.KERRI COMA SCORE: 15- eyes open- spontaneous (4); best verbal response- oriented (5); bestmotor response- obeys commands (6). --11:51 04/12/21 Osmar Whalen RN11:45 04/12/21. BP: 111/89. MAP: 96. HR: 80. RR: 23. O2 saturation: 95% on nasal cannula at 3liters/minute. Temp: 97.4 F. Pain level now: 0/10. --11:51 04/12/21 Osmar Whalen RN.Weight: 84.8 kg measured. Height/Length: 63 inches Per Patient. BMI: 33.1. --11:44 04/12/21 Osmar Whalen RN.MedicationsAspirin Oral (Tablet 325 mg), daily. Atorvastatin Calcium Oral (Tablet 20 mg) 1 tablet, at bedtime. Calcium 600 Oral. Ferrous Sulfate Oral (Tablet 325 (65 Fe) mg) 1 tablet, daily. Furosemide Oral 40 mg, daily. --11:48 04/12/21 Osmar Whalen RN Ipratropium-Albuterol Inhalation. Losartan Potassium Oral 100 mg, daily. metFORMIN HCl Oral (Tablet 1000 mg), 2x a day. Oxygen. Pantoprazole Sodium Oral (Tablet Delayed Release 40 mg) 1 tablet, daily. Raloxifene HCl Oral (Tablet 60 mg) 1 tablet, daily. raNITIdine HCl Oral 300 mg, daily at bedtime. Ventolin HFA Inhalation. Vitamin B12 Oral. Vitamin D3 Oral 50mcg, daily. --11:48 04/12/21 Osmar Whalen RN. 2 Clinical Report - Nurses [facility] Emergency Department [address] [place] [address] Phone #: ext- [phone] 04/12/2021 11:39 Patient: DONALD ARMANDO Sex: F : 1945 Age: 76y Allergies Codeine. Dilantin. --11:48 04/12/21 Osmar Whalen RN. History PAST MEDICAL HX: Immunizations: up-to-date. The patient is post-menopausal. SOCIAL HX: Former smoker, end date 03/2020. No alcohol use or drug use. She was offered HIV testing but declined and hepatitis C testing but declined. She has not traveled outside the [place] Infectious disease exposure: No infectious disease exposure. The patient was not exposed to Coronavirus. SELF HARM ASSESSMENT: Self harm assessment was performed. The patient answered "no" to the question(s) "Have you recently felt down, depressed, or hopeless?", "Do you have thoughts of harming or killing yourself?", "Do you have a plan for harming or killing yourself?", "Have you recently had thoughts about harming or killing others?", "Do you have any dangerous items in your possession?", "Have you noticed less interest or pleasure in doing things?", "Are you here because you tried to hurt yourself?" and "Have you ever tried to hurt yourself before today?". ABUSE ASSESSMENT: No report of abuse. NUTRITIONAL RISK ASSESSMENT: The nutritional r isk assessment revealed no deficiencies. FUNCTIONAL ASSESSMENT: Functional assessment: no impairments noted. LEARNING NEEDS ASSESSMENT: The learning needs assessment revealed no barriers. FALL RISK ASSESSMENT: Fall risk assessment completed. No risk factors identified. SKIN INTEGRITY ASSESSMENT: Skin integrity risk assessment completed. No skin integrity risk identified. --11:51 04/12/21 Osmar Whalen RN. Interventions Identification and allergy band on patient. To treatment room. --11:51 04/12/21 Osmar Whalen RN.PHYSICAL ASSESSMENTAmbulatory to room.GENERAL / NEURO / PSYCH: Alert. Oriented X 4. Appears in distress.HEENT: Pupils equal, round and reactive to light. Ears within normal limits. Mucous membranes arepink.RESPIRATORY: Respiratory distress (pt voices dyspnea with ambulation, none at rest). Wheezesbilaterally; left lung base anteriorly, mid- lung anteriorly and upper lung anteriorly; abnormal breath soundsright lung base anteriorly, mid-lung anteriorly and upper lung anteriorly. Cough productive of scantamounts of yellow sputum.CVS: Cardiac rhythm: 100% A/V sequential pacing. Capillary refill less than 2 seconds. 3 Clinical Report - Nurses [facility] Emergency De partment [address] [place] [address] Phone #: ext- [phone] 04/12/2021 11:39 Patient: DONALD ARMANDO Sex: F : 1945 Age: 76y EXTREMITIES: Bilateral 1+ pitting edema of the lower extremities involving both lower legs. SKIN: Skin is warm and dry. Normal skin turgor. --11:55 04/12/21 Osmar Whalen RN.NURSING PROGRESS NOTESOxygen administered by nasal cannula at 3 liters. hall monitor, NIBP monitor and pulse oximeterplaced on patient; classroom monitor- Lead II; monitor alarms on. Patient gowned. Head of bed elevated.Reassurance given. Call light placed in reach. Side rails up x 2. Bed placed in lowest position. Brakesof bed on. Patient ready for evaluation- ED physician notified. --11:55 04/12/21 Osmar Whalen RN 12:36 04/12/2021 Site #1 started via IV in the right forearm with an 20g angiocath, with aseptic technique and good blood return; one attempt. Saline lock flushed with 10 mL saline. --12:36 04/12/21 Osmar Whalen RN Patient ID band checked for patient name and birthdate: patient confirmed. Flu swab obtained via nasal swab and nasal pharyngeal swab. Labeled in the presence of the patient and sent to lab. Patient ID band checked for patient name and birthdate: patient confirmed. COVID-19 specimen obtained by RN via nasopharyngeal swab. Labeled in the presence of the patient and sent to lab. --12:36 04/12/21 Osmar Whalen RN Reassessment acuity: LEVEL 3. --12:43 04/12/21 Osmar Whalen RN EKG time: (late entry - 12:21 04/12/2021). EKG was performed by a tech and shown to the PA. --12:51 04/12/21 [facility] [place] [address] 13:48 04/12/2021 Solu-Medrol (methylPREDNISolone Sodium Succ) IVP 125 mg given over 2 minute(s) via site #1. Allergies verified and confirmed 5 rights. IV patency established. IV site checked: no pain, redness, or swelling. IV flushed thoroughly pre- and post- medication administration. IVP given by RN. Information reviewed with patient including reason for taking this medication. Verbalizes understanding. --13:48 04/12/21 Osmar Whalen RN 14:09 04/12/2021 Duoneb Neb TX Nebulizer 2 unit dose given. Given by the nurse. Allergies verified and confirmed 5 rights. Information reviewed with patient including reason for taking this medication. Verbalizes understanding. --14:09 04/12/21 Osmar Whalen RN ( Ambulated patient per PA's Request O2 saturation maintained @ 93% on 3L). --15:07 04/12/21 [facility] ( Patient was provided with a cup of coffee and a sandwich.). --15:08 04/12/21 [facility] [place] [address] 15:28 04/12/2021 Si te #1 removed upon discharge. Catheter intact. Manual pressure and bandage applied. --15:28 04/12/21 Osmar Whalen RN.DISPOSITION / DISCHARGE 4 Clinical Report - Nurses [facility] Emergency Department [address] [place] [address] Phone #: ext- [phone] 04/12/2021 11:39 Patient: DONALD ARMANDO Sex: F : 1945 Age: 76y Condition at departure: improved and stable. Discharge instructions provided and reviewed with the patient. Reviewed medication(s) side effects, precautions, dosing and course information. Prescription(s) sent electronically to pharmacy. Patient verbalized understanding. Written instructions provided in [place]. The patient was discharged by the physician visitor service assistant. She was discharged home and accompanied by family. She left ambulatory and via private vehicle. Family member driving. --15:46 04/12/21 Osmar Whalen RN 15:45 04/12/21. BP: 144/84. MAP: 104. HR: 102. RR: 24. O2 saturation: 94%. Temp: 98.2 F. --15:46 04/12/21 Osmar Whalen RN 15:46 04/12/21. Pain level now: 0/10. --15:46 04/12/21 Osmar Whalen RN.Locked/Released at 04/12/2021 15:46 by Osmar Whalen RN Name Value Range Interpretation Code Description Data Ro rce(s) Supporting Document(s) ID Date Data Source [id number] 04/12/2021 11:40:00 AM EDT [facility] 1 Clinical Report - Physicians/Mid Levels [facility] Emergency Department [address] [place] [address] Phone #: ext- [phone] 04/12/2021 11:39 Patient: DONALD ARMANDO Sex: F : 1945 Age: 76y Time Seen: 11:58 04/12/2021; initial patient contact, initial documentation. Arrived- By private vehicle. Historian- patient. Disposition decision: 15:40 04/12/2021.HISTORY OF PRESENT ILLNESS Chief Complaint: COUGH. This started about 1 - 2 weeks ago and is still present. The illness is described as mild. The patient has had sputum production and a cough. No sore throat, hoarseness, nasal congestion or discharge or sinus pressure. No sinus drainage or ear pain. (pt states she has had a persistent cough for about the past 1-2 weeks, coughing up a yellow sputum, she went to see Emelina Jett NP and was sent here for possible CHF). Similar symptoms previously. Recent medical care: The patient was seen recently at another facility in a clinic.REVIEW OF SYSTEMSNo headache, eye discomfort, nausea, vomiting or diarrhea. No abdominal pain, hay fever, calf pain,difficulty with urination or skin rash. No enlarged lymph nodes, joint pain or tick bite. The patient has hadpedal edema. All other systems reviewed and are negative.PAST HISTORYSee nurses notes. Chronic obstructive pulmonary disease. Pneumonia. Problems: Elevated Cholesterol. Diabetes Mellitus. Gastroesophageal Reflux Disease. Fall. Atrial Fibrillation. Aortic Aneurysm. Contusion. Atypical Chest Pain. Heart Disease. Pacemaker. Other Disease. Vertigo. Lung Disease. Hernia. Heart Murmur. Lifestyle / Substance Problems. 2 Clinical Report - Physicians/Mid [facility] Emergency Department [address] [place] [address] Phone #: ext- [phone] 04/12/2021 11:39 Patient: [id number] Sex: F : 1945 Age: 76y Hypertension. Additional Surgeries: Colonoscopy [05/25/2018]. Hysterectomy. Pacemaker. Medications: Ipratropium-Albuterol Inhalation. Losartan Potassium Oral 100 mg, daily. metFORMIN HCl Oral (Tablet 1000 mg), 2x a day. Oxygen. Pantoprazole Sodium Oral (Tablet Delayed Release 40 mg) 1 tablet, daily. Raloxifene HCl Oral (Tablet 60 mg) 1 tablet, daily. raNITIdine HCl Oral 300 mg, daily at bedtime. Ventolin HFA Inhalation. Vitamin B12 Oral. Vitamin D3 Oral 50mcg, daily. Aspirin Oral (Tablet 325 mg), daily. Atorvastatin Calcium Oral (Tablet 20 mg) 1 tablet, at bedtime. Calcium 600 Oral. Ferrous Sulfate Oral (Tablet 325 (65 Fe) mg) 1 tablet, daily. Furosemide Oral 40 mg, daily. Allergies: Codeine. Dilantin.SOCIAL HISTORYFormer smoker. No alcohol use or drug use.ADDITIONAL NOTESThe nursing notes have been reviewed.PHYSICAL EXAMVital Signs: 04/12/2021 11:45 BP: 111/89. MAP: 96. HR: 80. RR: 23. O2 saturation: 95% on nasal cannulaat 3 liters/minute. Temp: 97.4 F. Pain level now: 0/10. Have been reviewed. Oxygen saturation normal.Appearance: Alert. No acute distress.ENT: Voice normal.Neck: Normal inspection. Neck supple.CVS: Normal heart rate and rhythm. No JVD present. Pulses normal. Capillary refill normal. Strongperipheral pulses. Heart sounds normal. Pulses: right radial 2+; left radial 2+; right dorsalis pedis 2+; leftdorsalis pedis 2+; right posterior tibial 2+.Respiratory: Chest normal on inspection. No respiratory distress. Unlabored respirations. Wheezingpresent. Rhonchi present. Good chest movement. 3 Clinical Report - Physicians/Mid Levels [facility] Emergency Department [address] [place] [address] Phone #: ext- [phone] 04/12/2021 11:39 Patient: DONALD [facility]AND[id number] Sex: F : 1945 Age: 76y Abdomen: Normal inspection. Soft and nontender. Bowel sounds normal. No di stention. Skin: Skin warm and dry. Extremities: Bilateral moderate 2+ pitting edema of the lower extremities involving both ankles and both lower legs. Neuro: Awake. Alert. Mood/affect normal. Speech normal. No motor deficit. No sensory deficit. Psych: Cognition normal. Thought process and content normal. Insight and judgement normal.LABS, X-RAYS, AND EKGEKG: Rate: 73. Electronic ventricular pacemaker REviewed by attending. Chest X-ray: (Logan schumacher James - 04/12/2021 1:29:37 PM 1. Congestive heart failure with interstitial edema. 2. Pleural-based opacities on the left, nonspecific. Masses versus airspace disease versus lobulated pleural thickening. PA and lateral chest recommended when feasible. If these are persistent, CT may be necessary for definitive evaluation.). The X-rays were interpreted by the radiologist. Chest CT: (Logan schumacher James - 04/12/2021 2:21:20 PM Healed fractures left second third and fourth ribs. These are new compared to the prior CT from 2019. Abundant sclerosis around the fracture sites account for the rounded opacities projected over the left lung on x-ray. No pulmonary masses are identified.). The study was interpreted by the radiologist. Laboratory Tests: CT Chest W/O Cont: (AURA: 04/12/2021 13:42) ( MsgRcvd 04/12/2021 14:51) In Progress Exam CT [place] W/[place] [address] PHONE: [phone] FAX: [phone] Name .................. : TR Whitley Acct Number.................. : [id number] ROOM. ................. : [facility] Number ................... : [id number] Stay type ............. : E/R Discharge Date......... ... : Admit Date ......... : 04/12/21 [facility] Date of ....... : 1945 Family Phys ................... : [id number] Phone .................. : [phone] Age ................................ : 76 Film# .................. .:[id number] Sex ................................. : F Unsigned transcriptions are preliminary reports and do not represent a medical or legal document CT [facility] W/O CONTRAST [id number] COMPLETE:04/12/21 13:42 [id number] Reason(s): NO CONTRAST: ? Abnormal CXR portable CT CHEST WITHOUT IV CONTRAST INDICATION: Pleural-based opacities seen on the left side, uncertain etiology. CT recommended. COMPARISON: Chest x-ray 04/12/2021, CT10/28/19 CONTRAST: None One or more of the following dose reduction techniques were utilized in effectively 4 Clinical Report - Physicians/Mid Levels [facility] Emergency Department [address] [place] [address] Phone #: ext- [phone] 04/12/2021 11:39 Patient: DONALD ARMANDO Sex: F : 1945 Age: 76ylowering the radiation dose for this examination: Automated Exposure Control,Adjustment of the mA and/or kV according to patient size, or Iterative reconstruction.FINDINGS:LUNGS: No pulmonary nodules or masses. Mild linear scarring in both lower lungsunchanged. No focal consolidation.PLEURA AND PERICARDIUM: No pleural or pericardial effusions.MEDIASTINUM AND SHEELA: No mediastinal or hilar adenopathy or masses. Pacemaker ispresent.CHEST WALL: No axillary adenopathy.SKELETAL: There are healed fractures of the left anterolateral second third and fourthribs. These are healed with abundant sclerosis. These are new compared to the priorCT and explain the rounded opacities seen on x-ray.UPPER ABDOMEN: Unremarkable.IMPRESSION: Healed fractures left second third and fourth ribs. These are new [address] [place], [place] [address] [id number]: [phone] FAX: [phone] .................. : TR Whitley Acct Number.................. : [id number]. ................. : TR-05 MR Number ................... : [id number] type ............. : E/R Discharge Date......... ... :Admit Date ......... : 04/12/21 Admit Phys .................... : COONEYNORMDate of ....... : 1945 Family Phys ................... : KIRSCHMANPhone .................. : [phone] Age ................................ : 76Film# .................. .:[id number] Sex ................................. : FUnsigned transcriptions are preliminary reports and do not represent a medical or legal document CT THORAX W/O CONTRAST [id number] COMPLETE:04/12/21 13:42 60838 Reason(s): NO CONTRAST: ? Abnormal CXR portablecompared to the prior CT from 2019. Abundant sclerosis around the fracture sitesaccount for the rounded opacities projected over the left lung on x-ray. No pulmonarymasses are identified. Electronically Reviewed and Signed ByMAGGIE OLMEDO JWSTranscribe Initials: GOLDEN, Transcribe Date: 04/12/21 14:50, Dictation Date:<<REPDIST>> Page 2 of 2 5 Clinical Report - Physicians/Mid Levels [facility] Emergency Department [address] [place] [address] Phone #: ext- [phone] 04/12/2021 11:39 Patient: DONALD ARMANDO Sex: F : 1945 Age: 76yCBC w Diff: (AURA: 04/12/2021 12:34) ( MsgRcvd 04/12/2021 12:45) Final results Test Result Flag Units (Reference) CBC W/AUTOMATED DIFF COMPLETE BLOOD COUNT WBC 9.5 10/uL (4.2 - 11.0) RBC 2.99 L 10/uL (4.20 - 5.40) HEMOGLOBIN 9.7 L g/dL (12.0 - 16.0) HEMATOCRIT 32.0 L % (37.0 - 47.0) MCV 107.0 H fL (81.0 - 101) MCH 32.4 pg (27.0 - 34.0) MCHC 30.3 L g/dL (31.0 - 36.0) RDW 16.0 H % (11.5 - 14.5) PLATELETS 194 10/uL (150 - 450) MPV 9.5 fL (7.4 - 10.4) NEUT 73.5 % (37.0 - 80.0) LYMPH 12.4 L % (25.0 - 40.0) MONO 7.8 % (3.0 - 8.0) EOS 3.5 % (0.0 - 7.0) BASO 0.5 % (0.0 - 2.5) %IG 2.3 H % (0.0 - 0.0) %NRBC 0.0 % (0.0 - 0.0) #NEUT 6.95 H 10/uL (2.00 - 6.90) #LYMPH 1.17 10/uL (0.60 - 3.40) #MONO 0.74 10/uL (0.00 - 0.90) #EOS 0.33 10/uL (0.00 - 0.70) #BASO 0.05 10/uL (0.00 - 0.20) #IG 0.22 H 10/uL (0.00 - 0.10) #NRBC 0.00 10/uL (0.00 - 0.00) MANUAL DIFF NOT INDICATED RBC MORPH NOT INDICATEDCMP: (AURA: 04/12/2021 12:34) ( MsgRcvd 04/12/2021 13:22) Final results Test Result Flag Units (Reference) COMPREHENSIVE METABOLIC PANEL COMPREHENSIVE METABOLIC PANEL SODIUM 143 mEq/L (134 - 153) POTASSIUM 4.9 mEq/L (3.6 - 5.0) CHLORIDE 101 mEq/L (98 - 107) CO2 34 H MEQ/L (22 - 30) GLUCOSE 88 MG/DL (70 - 99) BUN 52 H MG/DL (7 - 21) CREATININE 2.3 H MG/DL (0.7 - 1.5) BUN/CREAT 23 (8 - 27) TOTAL PROTEIN 6.3 G/DL (6.3 - 8.2) ALBUMIN 3.9 G/DL (3.9 - 5.0) GLOBULIN 2.4 GM/DL (2.4 - 3.2) A/G RATIO 1.6 (0.8 - 2.0) CALCIUM 9.1 MG/DL (8.4 - 10.2) TOTAL BILI <0.7 MG/DL (0.2 - 1.3) ALKALINE PHOS 81 U/L (38 - 1 26) SGOT/AST 11 U/L (5 - 40) SGPT/ALT 7 U/L (7 - 56) ANION GAP 8.0 mmol/L (8.0 - 16.0) AGE 76 yrs NON-AA GFR 22 mL/min AFR AMER GFR >60 Male GFR Interprentation 20-49 yrs >60 mL/min Xdcbil88-46 yrs >56 mL/min Normal 60-69 yrs >49 mL/min Normal 70-79yrs 6 Clinical Report - Physicians/Mid Levels [facility] Emergency Department [address] [place] [address] Phone #: ext- [phone] 04/12/2021 11:39 Patient: DONALD ARMANDO Sex: F : 1945 Age: 76y>42 mL/min Normal 80 and above >35 mL/min Normal Female GFRInterpretation 20-39 yrs >60 mL/min Normal 40-49 yrs >58 mL/minNormal 50-59 yrs >51 mL/min Normal 60-69 yrs >45 mL/min Znbkil40-41 yrs >39 mL/min Normal 80 and above >32 mL/min NormalLipase: (AURA: 04/12/2021 12:34) ( MtgRcvd 04/12/2021 13:18) Final results Test Result Flag Units (Reference) LIPASE 26 U/L (13 - 60)PT/PTT: (AURA: 04/12/2021 12:34) ( MsgRcvd 04/12/2021 12:56) Final results Test Result Flag Units (Reference) PROTIME 13.6 SECONDS (11.0 - 15.5) INR 1.03 (0.93 - 1.23) PTT 27.8 SECONDS (24.8 - 36.7) \\BLDo\\INR INTERPRETATION\\BLDx\\ Therapeutic range for Coumadin andrelated oral anticoagulants. - International Normalized Ratio (INR): 2.0 - 3.0 for VenousThrombosis, Pulmonary Embolus, Tissue heart valves, Acute OR Atrial Fibrillation, Valvular heart diseaseand recurrent Systemic Embolism. - International Normalized Ratio (INR): 2.5 - 3.5 forMechanical Prosthetic valve.Troponin-T: (AURA: 04/12/2021 12:34) ( [facility] 04/12/2021 12:59) Final results Test Result Flag Units (Reference) TROPONIN T <0.01 NG/ML (0.00 - 0.10) TROPONIN T0.1 ng/ml Recommended as the clinical threshold value forTroponin T.Magnesium: (AURA: 04/12/2021 12:34) ( [facility] 04/12/2021 13:18) Final results Test Result Flag Units (Reference) MAGNESIUM 2.2 MG/DL (1.7 - 2.2)BNP: (AURA: 04/12/2021 12:34) ( [facility] 04/12/2021 13:22) Final results Test Result Flag Units (Reference) BNP 1469 H PG/ML (0 - 125)TSH: (AURA: 04/12/2021 12:34) ( [facility] 04/12/2021 13:22) Final results Test Result Flag Units (Reference) TSH 5.41 H uIU/mL (0.47 - 5.01)Urinalysis: (AURA: 04/12/2021 13:45) ( [facility] 04/12/2021 14:17) Final results Test Result Flag Units (Reference) URINALYSIS URINALYSIS SOURCE R COLOR yellow (NORMAL: Yello CLARITY clear (NORMAL: Clear SPEC GRAVITY 1.010 (1.001 - 1.030 pH 7 (5 - 9) GLUCOSE NORM (NORMAL: Negat BILIRUBIN NEG (NORMAL: Negat KETONE NEG (NORMAL: Negat PROTEIN 15 (NORMAL: Negat NITRITE NEG (NORMAL: Negat 7 Clinical Report - Physicians/Mid Levels [facility] Emergency Department [address] [place] [address] Phone #: ext- [phone] 04/12/2021 11:39 - Patient: DONALD ARMANDO Sex: F : 1945 Age: 76y BLOOD NEG (NORMAL: Negat LEUK EST NEG (NORMAL: Negat UROBILINOGEN NOR (less than 1.0 MICROSCOPIC See Below WBC 1 - 3 (NORMAL: NONE EPITHELIAL FEW (NORMAL: NONE BACTERIA Trace (NORMAL: NONE AMORPH SED RARE (NORMAL: NONE CASTS See Below HYALINE CAST 0-1 A (NORMAL: None COARSE GRAN 0-1 A (NORMAL: NoneCOVID-19 CAH: (AURA: 04/12/2021 12:34) ( MsgRcvd 04/12/2021 13:23) Final results Test Result Flag Units (Reference) COVID-19 NOT DETECTED COVID-19 REENTER NOT DETECTED { PROCEDURAL CONTROL VALID KIT LOT # _[id number] 04/12/21.MRW. KIT EXP DATE _07.21.21 04/12/21.MRW. NORMAL RANG E IS NOT DETECTEDThe COVID-19 assay is a rapidmolecular in vitro diagnostic testutilizing an isothermal nucleic acid amplification technology for thequalitativedetection of nucleic acid from the SARS-CoV-2 viral RNA in directnasal or nasopharyngeal swabs. Testing shouldbe performed within the first 7days of the onset of symptoms.NEGATIVE RESULTS SHOULD BE TREATED PRESUMPTIVEAND, IF INCONSISTENT WITHCLINICAL SIGNS AND SYMPTOMS OR NECESSARY FOR PATIENT MANAGEMENT, SHOULD BETESTED WITHDIFFERENT AUTHORIZED OR CLEARED MOLECULAR TESTS. NEGATIVE RESULTSDO NOT PRECLUDE SARS-CoV-2 INFECTION AND SHOULDNOT BE USED THE SOLE BASISFOR PATIENT MANAGEMENT DECISIONS.Influenza Nasal A B: (AURA: 04/12/2021 12:34) ( MsgRcvd 04/12/2021 13:23) Final results Test Result Flag Units (Reference) INFLUENZA A NEGATIVE (NORMAL: NEGAT INFLUENZA B NEGATIVE (NORMAL: NEGAT INFLUENZA A REENTER NEGATIVE (NORMAL: NEGAT INFLUENZA B REENTER NEGATIVE (NORMAL: NEGAT PROCEDURAL CONTROL VALID KIT LOT # _[id number] 04/12/21.1321.MRW. KIT EXP DATE _09.07.22 04/12/21.MRW.The Influenza A utilizing an isothermal nucleic acid amplification technology for thequalitativedetection of influenza A and B viral RNA.Negative results do not preclude influenza virus infection and shouldnot beused as the sole basis for diagnosis, treatment or other patient managementdecisions.Chest Portable 1 View: (AURA: 04/12/2021 12:17) ( MsgRcvd 04/12/2021 13:44) Final results [place] [address] PHONE: [phone] FAX: [phone] Name .................. : TR Whitley Acct Number.................. : [id number] ROOM. ................. : TR05 Number ................... : [id number] Stay type ............. : E/R Discharge Date......... ... : Admit Date ......... : 04/12/21 Admit Phys .................... : COONEYNORM Date of ....... : 1945 Family Phys ................... : CASPER Phone .................. : [phone] Age ................................ : 76 Film# .................. .:[id number] Sex ................................. : F Unsigned transcriptions are preliminary reports and do not represent a medical or legal document CHEST PORTABLE [id number] COMPLETE:04/12/21 12:17 [id number] Reason(s): cough, congestion, hx of COPD. ? PNU vs COPD flare vs CHF flare 8 Clinical Report - Physicians/Mid Levels [facility] Emergency Department [address] [place] [address] Phone #: ext- [phone] 04/12/2021 11:39 Patient: DONALD ARMANDO Sex: F : 1945 Age: 76y PORTABLE CHEST SINGLE VIEW 12:59 PM HISTORY: Cough, congestion, COPD COMPARISON: 05/22/2020 FINDINGS: The heart is not enlarged. There is a pacemaker present. Multiple EKG leads are projected over the chest. Pulmonary vessels are mildly prominent. Mild peribronchial thickening. There are pleural-based opacities along the left lower lateral chest wall measuring up to 25 mm. These are of uncertain etiology. No pleural effusions or pneumothorax. IMPRESSION: 1. Congestive heart failure with interstitial edema. 2. Pleural-based opacities on the left, nonspecific. Masses versus airspace disease versus lobulated pleural thickening. PA and lateral chest recommended when feasible. If these are persistent, CT may be necessary for definitive evaluation. Electronically Reviewed and Signed By Matt Ford MD , 04/12/21 13:44, JWJuju Transcribe Initials: SSR, Transcribe Date: 04/12/21 13:39, Dictation Date: Page 1 of2 [facility] [address] [place] [address] PHONE: [phone] FAX: [phone] Name .................. : TR BENNETT Gutierrez Acct Number.................. : [id number] ROOM. ............... .. : TR05 Number ................... : [id number] Stay type ............. : E/R Discharge Date......... ... : Admit Date ......... : 04/12/21 Admit Phys .................... : COONEYNORM Date of ....... : 1945 [facility] Phone .................. : [phone] Age ................................ : 76 Film# .................. .:[id number] Sex ................................. : F Unsigned transcriptions are preliminary reports and do not represent a medical or legal document CHEST PORTABLE [id number] COMPLETE:04/12/21 12:17 26894 Reason(s): cough, congestion, hx of COPD. ? PNU vs COPD flare vs CHF flare Copy for: 010 EMERGENCY SRV Copy for: JE FREDERICK via fax Copy for: CASPER RACHEL via [employer] Copy for: EMERGENCY DEPT via [employer] 9 Clinical Report - Physicians/Mid Levels [facility] Emergency Department [address] [place] [address] Phone #: ext- [phone] 04/12/2021 11:39 Patient: DONALD ARMANDO Sex: F : 1945 Age: 76y Copy for: 710 MED REC Page 2 of 2.PROGRESS AND PROCEDURESCourse of Care: Enter room and pt marley holland peacefully in bed in NAD. Patient stable. Denies any newissues, concerns, or complaints. NAD, AOx3, interacting well and appropriately, no use of accessory muscle, able to speak full sentences, stable, non-toxic looking. Pt has a hx of COPD and is on O2 at home at 3LPM. Sts she was at PCP due to continued sllighly productive cough and concerns for CHF excerbations vs ohter. Denies any CP, SOB, or dyspnea at rest, but increased with exertion. PE demos NV intact b/l UE and LE. noted new pitting edeam of the b/l LE; pts sts typically of ankles, but not of legs. noted rhnoci nad slihgt wheezing on ausiltation. Pt sts she ahs renal issues, but not sure of numbers; see nephrolgoy. Will order labs adn imaging. Pt elizabethenlty stable, will hold on meds until labs return to evaluate. [facility] lab. Appears stable 49Kyl40 BUN: 40; today 52, increased Cerat: 2.3; today 2.3: stable GFR: 22; today 22: stable BNP: 4547; today 1469: decreased Will tx and obtain CT for furhter eval due to portable findings. 14:55 04/12/21. Enter room and patient lying peacefully in bed in NAD. Patient stable. Denies any new issues, concerns, or complaints. Noted that rhonci has resolved adn wheezing has decreased. will do walking O2 test. Pending reutls. 15:01 04/12/21. Informed that pt stayed constantly at 93% and this is her normal. Discussed wiht pt PCP (Danya) and review labs and results. Feel ath this point based on results and pts compalnts; ? COPD flare. She agrees. Pt has a f/u with Pulm and Nephrolgoy next week. Pt is stable. 10 Clinical Report - Physicians/Mid Levels [facility] Emergency Department [address] [place] [address] Phone #: ext- [phone] 04/12/2021 11:39 Patient: DONALD ARMANDO Sex: F : 1945 Age: 76y Will tx with abx and dc. She agrees. Discuss with attendinga nd agrees. Will utilzie azithromyinc and prednisone due to renal function Prednisone as per UTD: Altered kidney function: Mild to severe impairment: No dosage adjustment necessary (expert opinion). Azithromycin as per UTD: Mild to severe impairment: No dosage adjustment necessary (H?carmelita 1994). Attending agrees. Reviewed results. Discussed with attending. Agrees wiht discharge. Enter room and patient lying peacefully in bed in NAD. Patient stable. Denies any new issues, concerns, or complaints. Discussed results with pt. Discussed tx plan with pt. Discussed and counseled on stable condition. Discussed importance of a f/u with PCP. Discussed return to ER criteria. Answered their questions. Indicates and verbalizes that they understand, agree, and will comply with above. Denies any new questions or concerns. Patient has capacity to understand. Discharge decision based on the following: patient's condition is stable; patient's exam is stable; social support is adequate; transportation is available; follow-up is available. Discussed of OTC Motrin and Tylenol to control inflammation and pain management. Informed to follow directions on bottle that are appropriate for age and/or weight. Discussed case with health care provider (Ned). Disposition: Discharged home in good and improved condition. Condition: good and stable.CLINICAL IMPRESSION Acute exacerbation of COPD.INSTRUCTIONS Take Tylenol (Acetaminophen) or Motrin (Ibuprofen) as needed for fever control. Take medication according to label instructions. Drink plenty of fluids. No dietary restrictions. 11 Clinical Report - Physicians/Mid Levels [facility] Emergency Department [address] [place] [address] Phone #: ext- [phone] 04/12/2021 11:39 Patient: DONALD ARMANDO Sex: F : 1945 Age: 76y Warnings: Further evaluation is necessary. GENERAL WARNINGS: Return or contact your physician immediately if your condition worsens or changes unexpectedly, if not improving as expected, or if other problems arise. Prescription Medications: prednisone 50 mg tablet Take 1 tablet once a day with meals for 5 days -- Dispense 5 tablet. Refills: 0. Substitution permitted. [facility][id number] - [address] [place], [place] [id number]. . azithromycin 250 mg tablet Take 2 tablet single dose for 1 days -- Take 2 tabs by mouth and day 1`and then 1 tab by mouth for days 2-5. Dispense 6 tablet. Refills: 0. Substitution permitted. [facility] #[id number] - [address] [place] [id number]. . Follow-up: Return to the emergency department as needed. Follow up with your healthcare provider in about two days if not better. Call for an appointment. Follow up with a computer lab aide and senior sales engineer as scheduled. Understanding of the discharge instructions verbalized by patient.(Electronically signed by Luis Wooten P.A.-C 04/12/2021 23:23) Name Value Range Interpretation Code Description Data Ro rce(s) Supporting Document(s) ID Date Data Source [id number] 04/12/2021 10:26:00 [place] [address] RESPIRATORY CARE REPORT ==== ---------NAME------- NUMBER SEX AGE ADMIT DISC. XRAY# F/C TYPEPATRICIADEVI BENNETT Gutierrez [id number] F 76 04/12/21 04/12/21 [id number] MB8 E/R DATE OF : 1945 M/R# [id number] PH#: [phone] TR-05 LOCATION: EMERGENCY DEPT EKG 26452 COMP LETE:04/12/21 16:06 [facility] [address] PHYSICIAN: MIRIAN WOOTEN Name Value Range Interpretation Code Description Data Ro rce(s) Supporting Document(s) ID Date Data Source [id number] 04/12/2021 03:09:00 [place] [address] PHONE: [phone] FAX: [phone] Name .................. : PATRICIADEVI DONALD Gutierrez Acct Number.................. : [id number] ROOM. ................. : Number ................... : [id number] Stay type ............. : E/R Discharge Date......... ... : Admit Date ......... : 04/12/21 Admit Phys .................... : COONEYNORM Date of ....... : 1945 Family Phys ................... : Row44 Phone .................. : [phone] Age ................................ : 76 Film# .................. .:[id number] Sex ................................. : F Unsigned transcriptions are preliminary reports and do not represent a medical or legal document CT THORAX W/O CONTRAST [id number] COMPLETE:04/12/21 13:42 46498 Reason(s): NO CONTRAST: ? Abnormal CXR portable CT CHEST WITHOUT IV CONTRAST INDICATION: Pleural-based opacities seen on the left side, uncertain etiology. CT recommended. COMPARISON: Chest x-ray 04/12/2021, CT10/28/19 CONTRAST: None One or more of the following dose reduction techniques were utilized in effectively lowering the radiation dose for this examination: Automated Exposure Control, Adjustment of the mA and/or kV according to patient size, or Iterative reconstruction. FINDINGS: LUNGS: No pulmonary nodules or masses. Mild linear scarring in both lower lungs unchanged. No focal consolidation. PLEURA AND PERICARDIUM: No pleural or pericardial effusions. MEDIASTINUM AND SHEELA: No mediastinal or hilar adenopathy or masses. Pacemaker is present. CHEST WALL: No axillary adenopathy. SKELETAL: There are healed fractures of the left anterolateral second third and fourth ribs. These are healed with abundant sclerosis. These are new compared to the prior CT and explain the rounded opacities seen on x-ray. UPPER ABDOMEN: Unremarkable. IMPRESSION: Healed fractures left second third and fourth ribs. These are new Page 1 of 2 [facility] [address] [place] [address] PHONE: [phone] FAX: [phone] Name .................. : TR Whitley Acct Number.................. : [id number] ROOM. ................. : [address] Number ................... : [id number] Stay type ............. : E/R Discharge Date......... ... : Admit Date ......... : 04/12/21 Admit Phys .................... : COONEYNORM Date of ....... : 1945 Family Phys ................... : Row44 Phone .................. : [phone] Age ................................ : 76 Film# .................. .:[id number] Sex ................................. : F Unsigned transcriptions are preliminary reports and do not represent a medical or legal document CT THORAX W/O CONTRAST [id number] COMPLETE:04/12/21 13:42 [id number] Reason(s): NO CONTRAST: ? Abnormal CXR portable compared to the prior CT from 2019. Abundant sclerosis around the fracture sites account for the rounded opacities projected over the left lung on x-ray. No pulmonary masses are identified. Electronically Reviewed and Signed By Matt Ford MD , 04/12/21 15:09, COSMO Transcribe Initials: SSR, Transcribe Date: 04/12/21 14:50, Dictation Date: Copy for: 010 EMERGENCY SRV Copy for: JE FREDERICK via fax Copy for: CASPER RACHEL via modem Copy for: EMERGENCY DEPT via modem Copy for: Laura MED REC Page 2 of 2 Name Value Range Interpretation Code Description Data Ro rce(s) Supporting Document(s) ID Date Data Source [id number] 04/12/2021 01:44:00 PM EDT [facility] [address] [place] [address] PHONE: [phone] FAX: [phone] Name .................. : TR Whitley Acct Number.................. : [id number] ROOM. ................. : [address] Number ................... : [id number] Stay type ............. : E/R Discharge Date......... ... : Admit Date ......... : 04/12/21 Admit Phys .................... : [facility] Date of ....... : 1945 Family Phys ................... : CASPER Phone .................. : [phone] Age ................................ : 76 Film# .................. .:[id number] Sex ................................. : F Unsigned transcriptions are preliminary reports and do not represent a medical or legal document CHEST PORTABLE [id number] COMPLETE:04/12/21 12:17 52632 Reason(s): cough, congestion, hx of COPD. ? PNU vs COPD flare vs CHF flare PORTABLE CHEST SINGLE VIEW 12:59 PM HISTORY: Cough, congestion, COPD COMPARISON: 05/22/2020 FINDINGS: The heart is not enlarged. There is a pacemaker present. Multiple EKG leads are projected over the chest. Pulmonary vessels are mildly prominent. Mild peribronchial thickening. There are pleural-based opacities along the left lower lateral chest wall measuring up to 25 mm. These are of uncertain etiology. No pleural effusions or pneumothorax. IMPRESSION: 1. Congestive heart failure with interstitial edema. 2. Pleural-based opacities on the left, nonspecific. Masses versus airspace disease versus lobulated pleural thickening. PA and lateral chest recommended when feasible. If these are persistent, CT may be necessary for definitive evaluation. Electronically Reviewed and Signed By Matt Ford MD , 04/12/21 13:44, COSMO Transcribe Initials: GOLDEN, Transcribe Date: 04/12/21 13:39, Dictation Date: Page 1 of 2 [facility] [address] [place] [address] PHONE: [phone] FAX: [phone] Name .................. : TR Whitley Acct Number.................. : [id number] ROOM. ................. : TR- MR Number ................... : [id number] Stay type ............. : E/R Discharge Date......... ... : Admit Date ......... : 04/12/21 Admit Phys .................... : COCHAPINCITO Date of ....... : 1945 Family Phys ................... : CASPER Phone .................. : [phone] Age ................................ : 76 Film# .................. .:[id number] Sex ................................. : F Unsigned transcriptions are preliminary reports and do not represent a medical or legal document CHEST PORTABLE [id number] COMPLETE:04/12/21 12:17 [id number] Reason(s): cough, congestion, hx of COPD. ? PNU vs COPD flare vs CHF flare Copy for: 010 EMERGENCY SRV Copy for: JE FREDERICK via fax Copy for: CASPER RACHEL via modem Copy for: EMERGENCY DEPT via modem Copy for: 710 MED REC Page 2 of 2 Name Value Range Interpretation Code Description Data Ro rce(s) Supporting Document(s) ID Date Data Source [id number] 04/12/2021 01:45:00 PM EDT [facility] (Silver Peterson MD) Name Value Range Interpretation Code Description Data Ro rce(s) Supporting Document(s) Laboratory test finding (navigational concept) Laboratory test result [facility] (Silver Peterson MD) SOURCE: [facility] [employer] Laboratory test finding (navigational concept) Laboratory test result [facility] (Silver Peterson MD) SOURCE: [employer] Laboratory test finding (navigational concept) Laboratory test result [facility] (Silver Peterson MD) SOURCE: Clean Catch Laboratory test finding (navigational concept) Laboratory test result [facility] (Silver Pteerson MD) SOURCE: Clean Catch Laboratory test finding (navigational concept) 1.010 1.001-1.030 [facility] (Silver Peterson MD) SOURCE: Clean Catch Laboratory test finding (navigational concept) 7 5-9 [facility] (Silver Peterson MD) SOURCE: Clean Catch Laboratory test finding (navigational concept) Laboratory test result [facility] (Silver Peterson MD) SOURCE: Clean Catch Laboratory test finding (navigational concept) Laboratory test result [facility] (Silver Peterson MD) SOURCE: Clean Catch Laboratory test finding (navigational concept) Laboratory test result [facility] (Silver Pteerson MD) SOURCE: Clean Catch Laboratory test finding (navigational concept) 15 [facility] (Silver Peterson MD) SOURCE: Clean Catch Laboratory test finding (navigational concept) Laboratory test result [facility] (Silver Peterson MD) SOURCE: Clean Catch Laboratory test finding (navigational concept) Laboratory test result [facility] (Silver Peterson MD) SOURCE: Clean Catch Laboratory test finding (navigational concept) Laboratory test result [facility] (Silver Peterson MD) SOURCE: Clean Catch Laboratory test finding (navigational concept) Laboratory test result [facility] (Silver Peterson MD) SOURCE: Clean Catch Laboratory test finding (navigational concept) Laboratory test result [facility] (iSlver Peterson MD) SOURCE: Clean Catch Laboratory test finding (navigational concept) Laboratory test result [facility] (Silver Peterson MD) SOURCE: Clean Catch Laboratory test finding (navigational concept) Laboratory test result [facility] (Silver Peterson MD) SOURCE: Clean Catch Laboratory test finding (navigational concept) Laboratory test result [facility] (Silver Peterson MD) SOURCE: Clean Catch Laboratory test finding (navigational concept) Laboratory test result [facility] (Silver Peterson MD) SOURCE: Clean Catch Laboratory test finding (navigational concept) Laboratory test result [facility] (Silver Peterson MD) SOURCE: Clean Catch Laboratory test finding (navigational concept) Laboratory test r esult Abnormal (applies to non-numeric results) [facility] (Silver Peterson MD ) SOURCE: Clean Catch Laboratory test finding (navigational concept) Laboratory test r esult Abnormal (applies to non-numeric results) TONIENT (Silver Peterson MD ) SOURCE: Clean Catch ID Date Data Source [id number] 04/12/2021 02:15:00 PM EDT [facility] Name Value Range Interpretation Code Description Data Ro rce(s) Supporting Document(s) [facility]ALYSIS [facility] COL[facility] yellow NORMAL: Yellow [facility] CLARITY clear NORMAL: Clear [facility] Specific gravity of Urine by Test strip 1.010 1.001 - 1.030 [facility] pH 7 5 - 9 [facility] Glucose [Mass/volume] in Urine by Test strip NORM NORMAL: Negat [facility] Bilirubin.total [Presence] in Urine by Test strip NEG NORMAL: Negative [facility] Ketones [Presence] in Urine by Test strip NEG NORMAL: Negative [facility] Protein [Mass/volume] in Urine by Test strip 15 NORMAL: Negat [facility] Nitrite [Presence] in Urine by Test strip NEG NORMAL: Negative [facility] BLOOD NEG NORMAL: Negative [facility] LEUK EST NEG NORMAL: Negative [facility] Urobilinogen [Mass/volume] in Urine by Test strip NOR less joyce n 1.0 mg/dL [facility] MICROSCOPIC See Below [facility] WBC 1 - 3 NORMAL: NONE SEEN [facility] EPITHELIAL FEW NORMAL: NONE SEEN [facility] Bacteria [Presence] in Urine sediment by Light microscopy Tr sonali NORMAL: NONE SEEN [facility] Amorphous sediment [Presence] in Urine sediment by Light melody roscopy RARE NORMAL: NONE SEEN [facility] Casts [#/area] in Urine sediment by Microscopy low power field See Be low [facility] Hyaline casts [#/area] in Urine sediment by Microscopy low p ower field 0-1 NORMAL: None Seen A [facility] Coarse Granular Casts [#/area] in Urine sediment by Mi croscopy low power field 0-1 NORMAL: None Seen A [facility] ID Date Data Source [id number] 04/12/2021 12:34:00 PM EDT [facility] (Silver Peterson MD) Name Value Range Interpretation Code Description Data Ro rce(s) Supporting Document(s) Laboratory test finding (navigational concept) Laboratory test result [facility] (Silver Peterson MD) Laboratory test finding (navigational concept) Laboratory test result [facility] (Silver Peterson MD) Laboratory test finding (navigational concept) Laboratory test result [facility] (Silver Peterson MD) Laboratory test finding (navigational concept) Laboratory test result [facility] (Silver Peterson MD) <content>PROCEDURAL CONTROL VALID</con tent>
<content>KIT LOT # _[id number] 04/12/21.1322.MRW.</content>
<content>KIT EXP DATE _09.07.22 04/12/21.1322.MRW.</content>
<content>The Influenza A & B assay is a rapid molecular in vitro diagnostic test</content>
<content>utilizing an isothermal nucleic acid amplification technology for the</content>
<content>qualitative detection of influenza A and B viral RNA.</content>
<content>Negative results do not preclude influenza virus infection and should not be</content>
<content>used as the sole basis for diagnosis, treatment or other patient management</content>
<content>decisions.</content>
<content></content> ID Date Data Source [id number] 04/12/2021 12:34:00 PM EDT [facility] (Silver Peterson MD) Name Value Range Interpretation Code Description Data Ro rce(s) Supporting Document(s) Natriuretic peptide.B prohormone N-Terminal [Mass/volu me] in Serum or Plasma 1469 pg/mL 0-125 Above high normal [facility] (Silver Peterson MD) Thyrotropin [Units/volume] in Serum or Plasma by Detec tion limit <= 0.005 mIU/L 5.41 uIU/mL 0.47-5.01 Above high normal [facility] (Silver Peterson MD) ID Date Data Source [id number] 04/12/2021 12:34:00 PM EDT [facility] (Silver Peterson MD) Name Value Range Interpretation Code Description Data Ro rce(s) Supporting Document(s) Laboratory test finding (navigational concept) Laboratory test result [facility] (Silver Peterson MD) COMPREHENSIVE METABOLIC PANEL Laboratory test finding (navigational concept) 101 meq/L 98-107 [facility] (Silver Peterson MD) Laboratory test finding (navigational concept) 143 meq/L 134-153 [facility] (Silver Peterson MD) Laboratory test finding (navigational concept) 4.9 meq/L 3.6-5.0 [facility] (Silver Peterson MD) Laboratory test finding (navigational concept) 52 mg/dL 7-21 Above high normal [facility] (Silver Peterson MD) Laboratory test finding (navigational concept) 34 meq/L 22-30 Above high normal [facility] (Silver Peterson MD) Laboratory test finding (navigational concept) 88 mg/dL 70-99 [facility] (Silver Peterson MD) Laboratory test finding (navigational concept) 6.3 g/dL 6.3-8.2 [facility] (Silver Peterson MD) Laboratory test finding (navigational concept) 2.3 mg/dL 0 .7-1.5 Above high normal [facility] (Silver Peterson MD) Laboratory test finding (navigational concept) 23 8-27 [facility] (Silver Peterson MD) Laboratory test finding (navigational concept) 3.9 g/dL 3.9-5.0 [facility] (Silver Peterson MD) Laboratory test finding (navigational concept) 1.6 0.8-2.0 [facility] (Silver Peterson MD) Laboratory test finding (navigational concept) 2.4 GM/DL 2.4-3.2 [facility] (Silver Peterson MD) Laboratory test finding (navigational concept) 81 U/L 38-126 [facility] (Silver Peterson MD) Laboratory test finding (navigational concept) 9.1 mg/dL 8.4-10.2 [facility] (Silver Peterson MD) Laboratory test finding (navigational concept) Laboratory test resu lt 0.2-1.3 [facility] (Silver Peterson MD) Laboratory test finding (navigational concept) 8.0 mmol/L 8.0-16.0 [facility] (Silver Peterson MD) Laboratory test finding (navigational concept) 11 U/L 5-40 [facility] (Silver Peterson MD) Laboratory test finding (navigational concept) 7 U/L 7-56 [facility] (Silver Peterson MD) Laboratory test finding (navigational concept) 76 yrs [facility] (Silver Peterson MD) Laboratory test finding (navigational concept) 22 mL/min [facility] (Silver Peterson MD) Laboratory test finding (navigational concept) Laboratory test result [facility] (Silver Peterson MD) Male GFR Interprentation 20-49 yrs >60 mL/min Normal 50-59 yrs >56 mL/min Normal 60-69 yrs >49 mL/min Normal 70-79yrs >42 mL/min Normal 80 and above >35 mL/min Normal Female GFR Interpretation 20-39 yrs >60 mL/min Normal 40-49 yrs >58 mL/min Normal 50-59 yrs >51 mL/min Normal 60-69 yrs >45 mL/min Normal 70-79 yrs >39 mL/min Normal 80 and above >32 mL/min Normal ID Date Data Source [id number] 04/12/2021 12:34:00 PM EDT [facility] (Silver Peterson MD) Name Value Range Interpretation Code Description Data Ro rce(s) Supporting Document(s) Troponin T.cardiac [Mass/volume] in Serum or Plasma Laborato ry test result 0.00-0.10 [facility] (Silver Peterson MD) TROPONIN T 0.1 ng/ml Recommended as the clinical th reshold value for Troponin T. Magnesium [Mass/volume] in Serum or Plasma 2.2 mg/dL 1.7-2.2 [facility] (Silver Peterson MD) Lipoprotein lipase [Enzymatic activity/volume] in Serum or Plasm a 26 U/L 13-60 [facility] (Silver Peterson MD) ID Date Data Source [id number] 04/12/2021 12:34:00 PM EDT [facility] (Silver Peterson MD) Name Value Range Interpretation Code Description Data Ro rce(s) Supporting Document(s) Laboratory test finding (navigational concept) 13.6 s 11.0-15.5 [facility] (Silver Peterson MD) Laboratory test finding (navigational concept) 27.8 s 24.8-36.7 [facility] (Silver Peterson MD) \\BLDo\\INR INTERPRETATION\\BLDx\\ Therapeutic range for Coumadin and related oral anticoagulants. -International Normalized Ratio (INR): 2 .0 - 3.0 for Venous Thrombosis, Pulmonary Embolus, Tissue heart valves, Acute OR Atrial Fibrillation, Valvular heart disease and recurrent Systemic Embolism. -International Normalized Ratio (INR): 2 .5 - 3.5 for Mechanical Prosthetic valve. Laboratory test finding (navigational concept) 1.03 0.93-1.23 [facility] (Silver Peterson MD) ID Date Data Source [id number] 04/12/2021 12:34:00 PM EDT [facility] (Silver Peterson MD) Name Value Range Interpretation Code Description Data Ro rce(s) Supporting Document(s) Laboratory test finding (navigational concept) 2.99 10^6/uL 4 .20-5.40 Below low normal [facility] (Silver Peterson MD) Laboratory test finding (navigational concept) Laboratory test result [facility] (Silver Peterson MD) COMPLETE BLOOD COUNT Laboratory test finding (navigational concept) 9.5 10^3/uL 4.2-11.0 [facility] (Silver Peterson MD) Laboratory test finding (navigational concept) 9.7 g/dL 1 2.0-16.0 Below low normal [facility] (Silver Peterson MD) Laboratory test finding (navigational concept) 32.0 % 3 7.0-47.0 Below low normal [facility] (Silver Peterson MD) Laboratory test finding (navigational concept) 107.0 fL 8 1.0-101 Above high normal [facility] (Silver Peterson MD) Laboratory test finding (navigational concept) 32.4 pg 27.0-34.0 [facility] (Silver Peterson MD) Laboratory test finding (navigational concept) 30.3 g/dL 3 1.0-36.0 Below low normal [facility] (Silver Peterson MD) Laboratory test finding (navigational concept) 16.0 % 1 1.5-14.5 Above high normal [facility] (Silver Peterson MD) Laboratory test finding (navigational concept) 194 10^3/uL 150-450 [facility] (Silver Peterson MD) Laboratory test finding (navigational concept) 73.5 % 37.0-80.0 [facility] (Silver Peterson MD) Laboratory test finding (navigational concept) 9.5 fL 7.4-10.4 [facility] (Sivler Peterson MD) Laboratory test finding (navigational concept) 7.8 % 3.0-8.0 [facility] (Silver Peterson MD) Laboratory test finding (navigational concept) 3.5 % 0.0-7.0 [facility] (Silver Peterson MD) Laboratory test finding (navigational concept) 12.4 % 2 5.0-40.0 Below low normal [facility] (Silver Peterson MD) Laboratory test finding (navigational concept) 0.0 % 0.0-0.0 [facility] (Silver Peterson MD) Laboratory test finding (navigational concept) 2.3 % 0.0-0.0 Above high normal [facility] (Silver Peterson MD) Laboratory test finding (navigational concept) 0.5 % 0.0-2.5 [facility] (Silver Peterson MD) Laboratory test finding (navigational concept) 6.95 10^3/uL 2 .00-6.90 Above high normal [facility] (Silver Peterson MD) Laboratory test finding (navigational concept) 1.17 10^3/uL 0.60-3.40 [facility] (Silver Peterson MD) Laboratory test finding (navigational concept) 0.05 10^3/uL 0.00-0.20 [facility] (Silver Peterson MD) Laboratory test finding (navigational concept) 0.74 10^3/uL 0.00-0.90 [facility] (Silver Peterson MD) Laboratory test finding (navigational concept) 0.33 10^3/uL 0.00-0.70 [facility] (Silver Peterson MD) Laboratory test finding (navigational concept) 0.00 10^3/uL 0.00-0.00 [facility] (Silver Peterson MD) Laboratory test finding (navigational concept) 0.22 10^3/uL 0 .00-0.10 Above high normal [facility] (Silver Peterson MD) Laboratory test finding (navigational concept) Laboratory test result [facility] (Silver Peterson MD) Laboratory test finding (navigational concept) Laboratory test result [facility] (Silver Peterson MD) ID Date Data Source [id number] 04/12/2021 12:34:00 PM EDT [facility] Name Value Range Interpretation Code Description Data Ro rce(s) Supporting Document(s) COVID19 Case rprt NOT DETECTED [facility] This lab was ordered by [facility] and reported by [facility]. ID Date Data Source [id number] 04/12/2021 01:23:00 PM EDT [facility] NOT DETECTEDNOT DETECTED{ PROC EDURAL CONTROL VALID KIT LOT # _[id number] 04/12/21.1322.MRW. KIT EXP DATE _07.21.21 04/12/21.MRW. NORMAL RANGE IS NOT DETECTEDThe COVID-19 assay is a rapid molecular in vitro diagnostic testutilizing an isothermal nucleic acid amplification technology for thequalitative detection of nucleic acid from the SARS-CoV-2 viral RNA in directnasal or nasopharyngeal swabs. Testing should be performed within the first 7days of the onset of symptoms.NEGATIVE RESULTS SHOULD BE TREATED PRESUMPTIVE AND, IF INCONSISTENT WITHCLINICAL SIGNS AND SYMPTOMS OR NECESSARY FOR PATIENT MANAGEMENT, SHOULD BETESTED WITH DIFFERENT AUTHORIZED OR CLEARED MOLECULAR TESTS. NEGATIVE RESULTSDO NOT PRECLUDE SARS-CoV-2 INFECTION AND SHOULD NOT BE USED THE SOLE BASISFOR PATIENT MANAGEMENT DECISIONS. Name Value Range Interpretation Code Description Data Ro rce(s) Supporting Document(s) ID Date Data Source [id number] 04/12/2021 01:22:00 PM EDT [facility] Name Value Range Interpretation Code Description Data Ro rce(s) Supporting Document(s) Influenza virus A Ag [Presence] in Nasopharynx by Immunoassa y NEGATIVE NORMAL: NEGATIVE [facility] Influenza virus B Ag [Presence] in Nasopharynx by Immunoassa y NEGATIVE NORMAL: NEGATIVE [facility] NEGATIVENEGATIVE PROCEDURAL CO NTROL VALID KIT LOT # _[id number] 04/12/21.1321.MRW. KIT EXP DATE _09.07.22 04/12/21.MRW.The Influenza A & B assay is a rapid molecular in vitro diagnostic testutilizing an isothermal nucleic acid amplification technology for thequalitative detection of influenza A and B viral RNA.Negative results do not preclude influenza virus infection and should not beused as the sole basis for diagnosis, treatment or other patient managementdecisions. ID Date Data Source [id number] 04/12/2021 01:22:00 PM EDT [facility] Name Value Range Interpretation Code Description Data Ro rce(s) Supporting Document(s) Thyrotropin [Units/volume] in Serum or Plasma by Detec tion limit <= 0.05 mIU/L 5.41 uIU/mL 0.47 - 5.01 H [facility] ID Date Data Source [id number] 04/12/2021 01:22:00 PM EDT [facility] Name Value Range Interpretation Code Description Data Ro rce(s) Supporting Document(s) BNP 1469 PG/ML 0 - 125 H [facility] ID Date Data Source [id number] 04/12/2021 01:22:00 PM EDT [facility] Name Value Range Interpretation Code Description Data Ro rce(s) Supporting Document(s) COMPREHENSIVE METABOLIC PANEL [facility] COMPREHENSIVE METABOLIC PANEL Sodium [Moles/volume] in Serum or Plasma 143 mEq/L 134 - 153 [facility] Potassium [Moles/volume] in Serum or Plasma 4.9 mEq/L 3.6 - 5.0 [facility] Chloride [Moles/volume] in Serum or Plasma 101 mEq/L 98 - 107 [facility] Carbon dioxide, total [Moles/volume] in Serum or Plasma 34 MEQ/L 22 - 30 H [facility] Glucose [Mass/volume] in Serum or Plasma 88 MG/DL 70 - 99 [facility] BUN 52 MG/DL 7 - 21 [facility] Creatinine [Mass/volume] in Serum or Plasma 2.3 MG/DL 0.7 - 1.5 H [facility] BUN/CREAT 23 8 - 27 [facility] Protein [Mass/volume] in Serum or Plasma 6.3 G/DL 6.3 - 8.2 [facility] Albumin [Mass/volume] in Serum or Plasma 3.9 G/DL 3.9 - 5.0 [facility] Globulin [Mass/volume] in Serum by calculation 2.4 GM/DL 2.4 - 3.2 [facility] A/G RATIO 1.6 0.8 - 2.0 [facility] Calcium [Mass/volume] in Serum or Plasma 9.1 MG/DL 8.4 - 10.2 [facility] Bilirubin.total [Mass/volume] in Serum or Plasma <0.7 MG/DL 0.2 - 1.3 [facility] Alkaline phosphatase [Enzymatic activity/volume] in Serum or Plasma 81 U/L 38 - 126 [facility] Aspartate aminotransferase [Enzymatic activity/volume] in Serum or Plasma 11 U/L 5 - 40 [facility] Alanine aminotransferase [Enzymatic activity/volume] in Seru m or Plasma 7 U/L 7 - 56 [facility] Anion gap 3 in Serum or Plasma 8.0 mmol/L 8.0 - 16.0 [facility] AGE 76 yrs [facility] NON-AA GFR 22 mL/min [facility] AFR AMER GFR >60 [facility] Male GFR In terprentation 20-49 yrs >60 mL/min Normal 50-59 yrs >56 mL/min Normal 60-69 yrs >49 mL/min Normal 70-79yrs >42 mL/min Normal 80 and above >35 mL/min Normal Female GFR Interpretation 20-39 yrs >60 mL/min Normal 40-49 yrs >58 mL/min Normal 50-59 yrs >51 mL/min Normal 60-69 yrs >45 mL/min Normal 70-79 yrs >39 mL/min Normal 80 and above >32 mL/min Normal ID Date Data Source [id number] 04/12/2021 01:18:00 PM EDT [facility] Name Value Range Interpretation Code Description Data Ro rce(s) Supporting Document(s) Magnesium [Mass/volume] in Serum or Plasma 2.2 MG/DL 1.7 - 2.2 [facility] ID Date Data Source [id number] 04/12/2021 01:18:00 PM EDT [facility] Name Value Range Interpretation Code Description Data Ro rce(s) Supporting Document(s) Lipase [Enzymatic activity/volume] in Serum or Plasma 26 U/L 13 - 60 [facility] ID Date Data Source [id number] 04/12/2021 12:59:00 PM EDT [facility] Name Value Range Interpretation Code Description Data Ro rce(s) Supporting Document(s) TROPONIN T <0.01 NG/ML 0.00 - 0.10 [facility] TROPONIN T0.1 ng/ml Recommended as the c linical threshold value forTroponin T. ID Date Data Source [id number] 04/12/2021 12:55:00 PM EDT [facility] Name Value Range Interpretation Code Description Data Ro rce(s) Supporting Document(s) Prothrombin time (PT) 13.6 SECONDS 11.0 - 15.5 [facility] INR in Platelet poor plasma by Coagulation assay 1.03 0.93 - 1. 23 [facility] aPTT in Blood by Coagulation assay 27.8 SECONDS 24.8 - 36.7 [facility] \\BLDo\\INR INTERPRETATION\\BLDx\\ Therapeutic range for Coumadin and related oral anticoagulants. - International Normalized Ratio (INR): 2.0 - 3.0 for Venous Thrombosis, Pulmonary Embolus, Tissue heart valves, Acute OR Atrial Fibrillation, Valvular heart disease and recurrent Systemic Embolism. - International Normalized Ratio (INR): 2.5 - 3.5 for Mechanical Prosthetic valve. ID Date Data Source [id number] 04/12/2021 12:44:00 PM EDT [facility] Name Value Range Interpretation Code Description Data Ro rce(s) Supporting Document(s) CBC W/AUTOMATED DIFF [facility] COMPLETE BLOOD COUNT Leukocytes [#/volume] in Blood by Automated count 9.5 10^3/uL 4.2 - 1 1.0 [facility] Erythrocytes [#/volume] in Blood by Automated count 2.99 10^6/uL 4. 20 - 5.40 L [facility] Hemoglobin [Mass/volume] in Blood 9.7 g/dL 12.0 - 16.0 L [facility] Hematocrit [Volume Fraction] of Blood by Automated count 32.0 % 3 7.0 - 47.0 L [facility] Erythrocyte mean corpuscular volume [Entitic volume] b y Automated count 107.0 fL 81.0 - 101 H [facility] Erythrocyte mean corpuscular hemoglobin [Entitic mass] by Automated count 32.4 pg 27.0 - 34.0 [facility] Erythrocyte mean corpuscular hemoglobin concentration [Mass/volume] by Automated count 30.3 g/dL 31.0 - 36.0 L [facility] Erythrocyte distribution width [Ratio] by Automated count 16.0 % 11.5 - 14.5 H [facility] Platelets [#/volume] in Blood by Automated count 194 10^3/uL 150 - 45 0 [facility] Platelet mean volume [Entitic volume] in Blood by Automated count 9.5 fL 7.4 - 10.4 [facility] Neutrophils/100 leukocytes in Blood by Automated count 73.5 % 37. 0 - 80.0 [facility] Lymphocytes/100 leukocytes in Blood by Manual count 12.4 % 25.0 - 40.0 L [facility] Monocytes/100 leukocytes in Blood by Automated count 7.8 % 3.0 - 8.0 [facility] Eosinophils/100 leukocytes in Blood by Automated count 3.5 % 0.0 - 7.0 [facility] Basophils/100 leukocytes in Blood by Automated count 0.5 % 0.0 - 2.5 [facility] %IG 2.3 % 0.0 - 0.0 [facility] %NRBC 0.0 % 0.0 - 0.0 [facility] al Neutrophils [#/volume] in Blood by Automated count 6.95 10^3/uL 2.00 - 6.90 H [facility] Lymphocytes [#/volume] in Blood by Automated count 1.17 10^3/uL 0.60 - 3.40 [facility] Monocytes [#/volume] in Blood by Automated count 0.74 10^3/uL 0.00 - 0.90 [facility] Eosinophils [#/volume] in Blood by Automated count 0.33 10^3/uL 0.00 - 0.70 [facility] Basophils [#/volume] in Blood by Automated count 0.05 10^3/uL 0.00 - 0.20 [facility] #IG 0.22 10^3/uL 0.00 - 0.10 H [facility] #NRBC 0.00 10^3/uL 0.00 - 0.00 [facility] MANUAL DIFF NOT INDICATED [facility] RBC MORPH NOT INDICATED [facility] ID Date Data Source [id number] 03/23/2021 01:22:00 PM EDT [facility] WO IV CONTRASTCLINICAL HISTORY: Thoracic aortic aneurysm.COMPARISON: CT chest 02/04/2020TECHNIQUE: Helical acquisition performed through the chest.Coronal and parasagittal reconstructions are provided.FINDINGS: Lung parenchyma and pleura: Bronchiectasis and mucous plugging is identified in the anterolateral basal segment left lower lobe, increased compared to the prior study. Increased atelectasis likely related to mucous plugging identified inferior lingula. No suspicious nodule is seen. No endobronchial mass. Phlegm is identified in the left side of the trachea above the sander, similar to the prior study.Heart: The heart size is normal. There are pacemaker wires. There is no pericardial effusion. There is coronary artery calcification.Mediastinum: No endotracheal mass. No adenopathy in the mediastinum. Visualized esophagus looks normal.Thoracic aorta: Prior study demonstrated focal abdominal aortic aneurysm distally in front of the spine measuring 3.7 x 4.4 cm. I actually think the 4.4 cm measurement is related to tortuosity. The sagittal image measurement of 3.5 cm is probably more accurate. On today's examination the AP measurement is largest on sagittal image 59 at 3.6 cm. The AP and transverse measurements at the same level on today's examination are 4.3 by 4.1 cm, increased in transverse dimension compared to the prior study.Within the thoracic inlet the thyroid gland remains globular with no obvious nodule.Chest wall: Pacemaker seen left chest wall. Visualized portions of breasts unremarkable. Exaggerated kyphosis with no obvious fracture in the visualized vertebral bodies. There might be an old fracture superior endplate of L4 sagittal image 62, unchanged.Upper Abdomen: Liver more dense than the spleen. Vascular calcifications. Colonic diverticulosis. No suspicious findings.IMPRESSION: Increased atelectasis likely related to mucous plugging in the lateral right lung base.Bronchiectasis identified. No significant change in the extent of bronchiectasis.Larger distal abdominal aortic aneurysm. No evidence for leak.Follow-up recommended.Dictated by: JOSE SIMMONS M.D. on 1 Transcribed by: vick on 03/23/2021 02:08 PMCDS G code: ,CDS Modifier: ,cc: Name Value Range Interpretation Code Description Data Ro rce(s) Supporting Document(s) ID Date Data Source [id number] 02/07/2021 01:53:00 PM EDT [facility] (Silver Peterson MD) Name Value Range Interpretation Code Description Data Ro rce(s) Supporting Document(s) Magnesium [Mass/volume] in Serum or Plasma 2.6 mg/dL 1.8-2.4 Above high normal [facility] (Silver Peterson MD) Natriuretic peptide.B prohormone N-Terminal [Mass/volu me] in Serum or Plasma 1098 pg/mL Above high normal [facility] (Silver Peterson MD) ID Date Data Source [id number] 02/07/2021 01:53:00 PM EDT [facility] (Silver Peterson MD) Name Value Range Interpretation Code Description Data Ro rce(s) Supporting Document(s) Laboratory test finding (navigational concept) 206 mg/dL Above high normal [facility] (Silver Peterson MD) Laboratory test finding (navigational concept) 41 mg/dL Normal (applies to non-numeric results) [facility] (Silver Peterson MD) Laboratory test finding (navigational concept) 163 mg/dL Normal (applies to non-numeric results) [facility] (Silver Peterson MD) Laboratory test finding (navigational concept) 81 mg/dL Normal (applies to non-numeric results) [facility] (Silver Peterson MD) Laboratory test finding (navigational concept) 122 mg/dL Normal (applies to non-numeric results) [facility] (Silver Peterson MD) Laboratory test finding (navigational concept) 3.975 Normal (applies to non- numeric results) [facility] (Silver Peterson MD) ID Date Data Source [id number] 02/07/2021 01:53:00 PM EDT [facility] (Silver Peterson MD) Name Value Range Interpretation Code Description Data Ro rce(s) Supporting Document(s) Laboratory test finding (navigational concept) 55 mg/dL 7-18 Above high normal [facility] (Silver Peterson MD) Laboratory test finding (navigational concept) 86 mg/dL 7 0-100 Normal (applies to non-numeric results) [facility] (Silver Peterson MD) Laboratory test finding (navigational concept) 2.63 mg/dL 0 .55-1.30 Above high normal [facility] (Silver Peterson MD) Laboratory test finding (navigational concept) 143 meq/L 1 36-145 Normal (applies to non-numeric results) [facility] (Silver Peterson MD) Laboratory test finding (navigational concept) 19.0 Below low normal [facility] (Silver Peterson MD) <content>Units are mL/min/1.73 m2</content>
<content></content>
<content>Chronic Kidney Disease Staging per NKF:</content>
<content></content>
<content>Stage I & II GFR >=60 Normal to Mildly Decreased</content>
<content>Stage III GFR 30- 59 Moderately Decreased</content>
<content>Stage IV GFR 15-29 Severely Decreased</content>
<content>Stage V GFR <15 Very Little GFR Left</content>
<content>ESRD GFR <15 on [employer]ALSM[employer] APPRENTICE</content>
<content></content> Laboratory test finding (navigational concept) 106 meq/L 9 8-107 Normal (applies to non-numeric results) [facility] (Silver Peterson MD) Laboratory test finding (navigational concept) 4.8 meq/L 3 .5-5.1 Normal (applies to non-numeric results) [facility] (Silver Peterson MD) Laboratory test finding (navigational concept) 35 meq/L 21-32 Above high normal [facility] (Silver Peterson MD) Laboratory test finding (navigational concept) 2 meq/L 8-16 Below low normal [facility] (Silver Peterson MD) Laboratory test finding (navigational concept) 8.8 mg/dL 8 .8-10.2 Normal (applies to non-numeric results) [facility] (Silver Peterson MD) Laboratory test finding (navigational concept) 16 U/L 1 2-78 Normal (applies to non-numeric results) [facility] (Silver Peterson MD) Laboratory test finding (navigational concept) 13 U/L 7 -37 Normal (applies to non-numeric results) [facility] (Silver Peterson MD) Laboratory test finding (navigational concept) 6.8 GM/DL 6 .4-8.2 Normal (applies to non-numeric results) [facility] (Silver Peterson MD) Laboratory test finding (navigational concept) 94 U/L 4 5-117 Normal (applies to non-numeric results) [facility] (Silver Peterson MD) Laboratory test finding (navigational concept) 0.2 mg/dL 0 .2-1.0 Normal (applies to non-numeric results) [facility] (Silver Peterson MD) Laboratory test finding (navigational concept) 3.3 GM/DL 3 .2-5.2 Normal (applies to non-numeric results) [facility] (Silver ePterson MD) Laboratory test finding (navigational concept) 0.9 1.2-2.2 Below low normal [facility] (Silver Peterson MD) ID Date Data Source [id number] 02/07/2021 01:53:00 PM EDT [facility] (Silver Peterson MD) Name Value Range Interpretation Code Description Data Ro rce(s) Supporting Document(s) Laboratory test finding (navigational concept) 8.9 10 4 .0-10.0 Normal (applies to non-numeric results) [facility] (Silver Peterson MD) Laboratory test finding (navigational concept) 3.18 10 4 .00-5.40 Below low normal [facility] (Silver Peterson MD) Laboratory test finding (navigational concept) 34.6 % 3 6.0-47.0 Below low normal [facility] (Silver Peterson MD) Laboratory test finding (navigational concept) 10.3 g/dL 1 2.0-15.5 Below low normal [facility] (Silver Peterson MD) Laboratory test finding (navigational concept) 108.8 fl 8 0.0-96.0 Above high normal [facility] (Silver Peterson MD) Laboratory test finding (navigational concept) 29.8 g/dL 3 2.0-36.5 Below low normal [facility] (Silver Peterson MD) Laboratory test finding (navigational concept) 32.4 pg 2 7.0-33.0 Normal (applies to non-numeric results) [facility] (Silver Peterson MD) Laboratory test finding (navigational concept) 221 10 1 50-450 Normal (applies to non-numeric results) [facility] (Silver Peterson MD) Laboratory test finding (navigational concept) 15.8 % 1 1.5-14.5 Above high normal [facility] (Silver Peterson MD) Laboratory test finding (navigational concept) 71.9 % 3 6.0-66.0 Above high normal [facility] (Silver Peterson MD) Laboratory test finding (navigational concept) 13.3 % 2 4.0-44.0 Below low normal [facility] (Silver Peterson MD) Laboratory test finding (navigational concept) 4.6 % 0.0-3.0 Above high normal [facility] (Silver Peterson MD) Laboratory test finding (navigational concept) 8.4 % 2.0-8.0 Above high normal [facility] (Silver Peterson MD) Laboratory test finding (navigational concept) 0.7 % 0 .0-1.0 Normal (applies to non-numeric results) [facility] (Silver Peterson MD) Laboratory test finding (navigational concept) 0.0 % 0 -0 Normal (applies to non- numeric results) [facility] (Silevr Peterson MD) Laboratory test finding (navigational concept) 1.1 % 0 -3.0 Normal (applies to non-numeric results) [facility] (Silver Peterson MD) Laboratory test finding (navigational concept) 6.4 10 1 .5-8.5 Normal (applies to non-numeric results) [facility] (Silver Peterson MD) Laboratory test finding (navigational concept) 1.2 10 1.5-5.0 Below low normal [facility] (Silver Peterson MD) Laboratory test finding (navigational concept) 0.8 10 0 .0-0.8 Normal (applies to non-numeric results) [facility] (Silver Peterson MD) Laboratory test finding (navigational concept) 0.4 10 0 .0-0.5 Normal (applies to non-numeric results) [facility] (Silver Peterson MD) Laboratory test finding (navigational concept) 0.1 10 0 .0-0.2 Normal (applies to non-numeric results) [facility] (Silver Peterson MD) ID Date Data Source [id number] 12/20/2020 10:59:00 [place] [address] PHONE: [phone] FAX: [phone] Name .................. : MARGARETCINDY BENNETT Gutierrez Acct Number.................. : [id number] ROOM. ................. : Number ................... : [id number] Stay type ............. : O/P Discharge Date......... ... : 12/18/20 Admit Date ......... : 12/18/20 Admit Phys .................... : HAIDER SOMMER Date of ....... : 1945 Family Phys ................... : CASPER Phone .................. : [phone] Age ................................ : 75 Film# .................. .:[id number] Sex ................................. : F Unsigned transcriptions are preliminary reports and do not represent a medical or legal document CT CERV SPINE W/O ARI [id number] COMPLETE:12/18/20 19:[address] [facility] 8545 Reason for Exam: UNSTEADINESS ON FEET CT OF THE CERVICAL SPINE WITHOUT CONTRAST: FINDINGS: Marked spondylosis is seen at the vertebral body endplates of C4-5 and C5-6. Otherwise, mild and moderate degenerative spondylosis is seen. Fracture, subluxation, focal osseous lesion or spondylolisthesis is not seen. C2-3 and C3-4 intervertebral disc space is unremarkable. C4-5 and C5-6: Spondylosis at vertebral body endplates resulting in mild lateral recess narrowing without central canal stenosis or neuroforaminal narrowing. C6-7: Spondylosis and mild disc bulging noted that resulted in mild lateral recess narrowing without central canal stenosis or neuroforaminal narrowing. C7-T1 and T1-T2 intervertebral disc space is unremarkable. The paraspinal soft tissues are unremarkable. The visualized pulmonic apices are clear. IMPRESSION: Degenerative spondylosis. Spondylosis at C4-5 and C5-6 with mild lateral recess narrowing. Spondylosis and disc bulging at C6-7 with mild lateral recess narrowing. While performing the above CT examination, radiation dose reduction was accomplished utilizing automated exposure control, adjusting of the mA and kV based on the patient's body size and/or the use of imperative reconstructive techniques. Page [address] 2 [place] [address] PHONE: [phone] FAX: [phone] Name .................. : TR Whitley Acct Number.................. : [id number] ROOM. ................. : MR Number ................... : [id number] Stay type ............. : O/P Discharge Date......... ... : 12/18/20 Admit Date ......... : 12/18/20 Admit Phys .................... : HAIDER SOMMER Date of ....... : 1945 Family Phys ................... : CASPER Phone .................. : [phone] Age ................................ : 75 Film# ... ............... .:[id number] Sex ................................. : F Unsigned transcriptions are preliminary reports and do not represent a medical or legal document CT CERV SPINE W/O CONTRAS [id number] COMPLETE:12/18/20 19:[address] [facility] 8545 Reason for Exam: UNSTEADINESS ON FEET CT dose: 868.3 mGycm Electronically Reviewed and Signed By Viet Parra MD , 12/20/20 10:59, KGG Transcribe Initials: DZ , Transcribe Date: 12/19/20 05:34, Dictation Date: Copy for: HAIDER YUIMKO via fax Copy for: CASPER RACHEL via modem Copy for: [facility] MED REC Page 2 of 2 Name Value Range Interpretation Code Description Data Ro rce(s) Supporting Document(s) ID Date Data Source [id number] 12/19/2020 11:57:00 AM EDT [facility] [address] [place] [address] PHONE: [phone] FAX: [phone] Name .................. : TR Whitley Acct Number.................. : [id number] ROOM. ................. : MR Number ................... : [id number] Stay type ............. : O/P Discharge Date......... ... : 12/18/20 Admit Date ......... : 12/18/20 Admit Phys .................... : HAIDER SOMMER Date of ....... : 1945 Family Phys ................... : CASPER Phone .................. : [phone] Age ................................ : 75 Film# .................. .:[id number] Sex ................................. : F Unsigned transcriptions are preliminary reports and do not represent a medical or legal document CT HEAD W/O CONTRAST [id number] COMPLETE:12/18/20 19:[address] [facility] 8544 Reason for Exam: TREMOR,SEIZURES, UNSTEADINESS ON FEET CT SCAN OF THE HEAD WITHOUT CONTRAST: CLINICAL HISTORY: Tremors, seizures, unsteadiness on feet. COMPARISON: Prior study from 07/05/18. FINDINGS: No evidence of an acute hemorrhage or infarct is identified. No midline shift or mass effect is identified. No clear evidence of an extra-axial fluid collection is identified. No significant change as compared to the prior study. IMPRESSION: No acute intracranial findings. No significant change as compared to prior study from 07/05/18. While performing the above CT examination, radiation dose reduction was accomplished utilizing automated exposure control, adjusting of the mA and kV based on the patient's body size and/or the use of imperative reconstructive techniques. CT dose: 861.4 mGycm Examination dictated by SHIRA Meng. Examination was reviewed with Viet Parra MD, radiologist at the time of this dictation. Electronically Reviewed and Signed By Viet Parra MD , 12/19/20 11:57, KGG Transcribe Initials: DZ , Transcribe Date: 12/19/20 03:17, Dictation Date: Copy for: HAIDER SOMMER via fax Copy for: CASPER RACHEL via waylandm [address] [place] [address] PHONE: [phone] FAX: [phone] Name .................. : TR Whitley Acct Number.................. : [id number] ROOM. ................. : MR Number ................... : [id number] Stay type ............. : O/P Discharge Date......... ... : 12/18/20 Admit Date ......... : 12/18/20 Admit Phys .................... : HAIDER SOMMER Date of ....... : 1945 Family Phys ................... : CASPER Phone .................. : [phone] Age ................................ : 75 Film# .................. .:[id number] Sex ................................. : F Unsigned transcriptions are preliminary reports and do not represent a medical or legal document CT HEAD W/O CONTRAST [id number] COMPLETE:12/18/20 19:[address] [facility] 8544 Reason for Exam: TREMOR,SEIZURES, UNSTEADINESS ON FEET Copy for: 710 MED REC Page 2 of 2 Name Value Range Interpretation Code Description Data Ro rce(s) Supporting Document(s) ID Date Data Source [id number] 11/30/2020 06:26:00 PM EDT [facility] (Silver Peterson MD) Name Value Range Interpretation Code Description Data Ro rce(s) Supporting Document(s) Lipoprotein lipase [Enzymatic activity/volume] in Serum or P lasma 104 U/L 73-393 Normal (applies to non-numeric results) [facility] ( Silver Peterson MD) ID Date Data Source [id number] 11/30/2020 06:26:00 PM EDT [facility] (Silver Peterson MD) Name Value Range Interpretation Code Description Data Ro rce(s) Supporting Document(s) Laboratory test finding (navigational concept) 17 U/L 1 2-78 Normal (applies to non-numeric results) [facility] (Silver Peterson MD) Laboratory test finding (navigational concept) 15 U/L 7 -37 Normal (applies to non-numeric results) [facility] (Silver Peterson MD) Laboratory test finding (navigational concept) 63 U/L 4 5-117 Normal (applies to non-numeric results) [facility] (Silver Peterson MD) Laboratory test finding (navigational concept) 0.3 mg/dL 0 .2-1.0 Normal (applies to non-numeric results) [facility] (Silver Peterson MD) Laboratory test finding (navigational concept) Laboratory test r esult 0.0-0.2 Normal (applies to non-numeric results) [facility] (Silver curtis MD) Laboratory test finding (navigational concept) 3.2 GM/DL 3 .2-5.2 Normal (applies to non-numeric results) [facility] (Silver Peterson MD) Laboratory test finding (navigational concept) 6.8 GM/DL 6 .4-8.2 Normal (applies to non-numeric results) [facility] (Silver Peterson MD) Laboratory test finding (navigational concept) 0.9 1.2-2.2 Below low normal [facility] (Silver Peterson MD) ID Date Data Source [id number] 11/30/2020 06:26:00 PM EDT [facility] (Silver Peterson MD) Name Value Range Interpretation Code Description Data Ro rce(s) Supporting Document(s) Laboratory test finding (navigational concept) 64 U/L 2 6-192 Normal (applies to non-numeric results) [facility] (Silver Peterson MD) Laboratory test finding (navigational concept) 1.1 ng/mL Normal (applies to non-numeric results) [facility] (Silver Peterson MD) Laboratory test finding (navigational concept) 1.72 Normal (applies to non- numeric results) [facility] (Silver Peterson MD) <content>DIAGNOSIS CRITERIA</content>
<content>MMB ng/ml Relative Index (RI)</content>
<content>NON-AMI < or = 5 N/A</content>
<content>FISH ZONE > 5 < or = 4</content>
<content>AMI > 5 > 4</content>
<content></content> Laboratory test finding (navigational concept) Laboratory test r esult Normal (applies to non-numeric results) [facility] (Silver Peterson MD) <content>Troponin I Reference Interval f or Siemens [place] LOCI:</content>
<content></content>
<content>99th Percentile= 0.00-0.045 ng/ml</content>
<content></content>
<content>Risk Stratification:</content>
<content><= 0.10 ng/ml Decreased Risk for Adverse Clinical</content>
<content>Events.</content>
<content>0.10-1.50 ng/ml Increased Risk for Adverse Clinical</content>
<content>Events. Evaluation of additional</content>
<content>criterion and/or repeat testing in 2-6</content>
<content>hours is suggested to rule out myocardial</content>
<content>damage.</content>
<content>>= 1.50 ng/ml Indicative of Myocardial Injury.</content>
<content></content> ID Date Data Source [id number] 11/30/2020 06:14:00 PM EDT [facility] Name Value Range Interpretation Code Description Data Ro rce(s) Supporting Document(s) SARS coronavirus 2 RNA [Presence] in Res piratory specimen by AMARA with probe detection NEGATIVE [facility] This lab was ordered by [facility] a nd reported by [facility]. ID Date Data Source [id number] 11/30/2020 05:20:00 PM EDT [facility] (Silver Peterson MD) Name Value Range Interpretation Code Description Data Ro rce(s) Supporting Document(s) Laboratory test finding (navigational concept) 86 mg/dL 7 0-105 Normal (applies to non-numeric results) [facility] (Silver Peterson MD) Laboratory test finding (navigational concept) 29.0 % 3 8.0-51.0 Below low normal [facility] (Silver Peterson MD) Laboratory test finding (navigational concept) 142 meq/L 1 36-145 Normal (applies to non-numeric results) [facility] (Silver Peterson MD) Laboratory test finding (navigational concept) 4.6 mg/dL 4 .5-5.3 Normal (applies to non-numeric results) [facility] (Silver Peterson MD) Laboratory test finding (navigational concept) 4.8 meq/L 3 .5-5.1 Normal (applies to non-numeric results) [facility] (Silver Peterson MD) Laboratory test finding (navigational concept) 103 meq/L 9 8-109 Normal (applies to non-numeric results) [facility] (Silver Peterson MD) Laboratory test finding (navigational concept) 31.0 MM/L 2 3.0-27.0 Above high normal [facility] (Silver Peterson MD) Laboratory test finding (navigational concept) 46 mg/dL 8-26 Above high normal [facility] (Silver Peterson MD) Laboratory test finding (navigational concept) 3.0 mg/dL 0 .6-1.3 Above high normal [facility] (Silver Peterson MD) ID Date Data Source [id number] 11/30/2020 05:16:00 PM EDT [facility] (Silver Peterson MD) Name Value Range Interpretation Code Description Data Ro rce(s) Supporting Document(s) Natriuretic peptide.B prohormone N-Terminal [Mass/volu me] in Serum or Plasma 1279 pg/mL Above high normal [facility] (Silver Peterson MD) ID Date Data Source [id number] 11/30/2020 05:16:00 PM EDT [facility] (Silver Peterson MD) Name Value Range Interpretation Code Description Data Ro rce(s) Supporting Document(s) Laboratory test finding (navigational concept) 13.7 10 4 .0-10.0 Above high normal [facility] (Silver Peterson MD) Laboratory test finding (navigational concept) 9.7 g/dL 1 2.0-15.5 Below low normal [facility] (Silver Peterson MD) Laboratory test finding (navigational concept) 3.05 10 4 .00-5.40 Below low normal [facility] (Silver Peterson MD) Laboratory test finding (navigational concept) 32.3 % 3 6.0-47.0 Below low normal [facility] (Silver Peterson MD) Laboratory test finding (navigational concept) 105.9 fl 8 0.0-96.0 Above high normal [facility] (Silver Peterson MD) Laboratory test finding (navigational concept) 31.8 pg 2 7.0-33.0 Normal (applies to non-numeric results) [facility] (Silver Peterson MD) Laboratory test finding (navigational concept) 30.0 g/dL 3 2.0-36.5 Below low normal [facility] (Silver Peterson MD) Laboratory test finding (navigational concept) 207 10 1 50-450 Normal (applies to non-numeric results) [facility] (Silver Peterson MD) Laboratory test finding (navigational concept) 15.1 % 1 1.5-14.5 Above high normal [facility] (Silver Peterson MD) Laboratory test finding (navigational concept) 78.5 % 3 6.0-66.0 Above high normal [facility] (Silver Peterson MD) Laboratory test finding (navigational concept) 9.0 % 24.0-44 .0 Below low normal [facility] (Silver Peterson MD) Laboratory test finding (navigational concept) 8.0 % 2 .0-8.0 Normal (applies to non-numeric results) [facility] (Silver Peterson MD) Laboratory test finding (navigational concept) 3.4 % 0.0-3.0 Above high normal [facility] (Silver Peterson MD) Laboratory test finding (navigational concept) 0.4 % 0 .0-1.0 Normal (applies to non-numeric results) [facility] (Silver Peterson MD) Laboratory test finding (navigational concept) 0.0 % 0 -0 Normal (applies to non- numeric results) [facility] (Silver Peterson MD) Laboratory test finding (navigational concept) 0.7 % 0 -3.0 Normal (applies to non-numeric results) [facility] (Silver Peterson MD) Laboratory test finding (navigational concept) 1.2 10 1.5-5.0 Below low normal [facility] (Silver Peterson MD) Laboratory test finding (navigational concept) 10.8 10 1 .5-8.5 Above high normal [facility] (Silver Peterson MD) Laboratory test finding (navigational concept) 1.1 10 0.0-0.8 Above high normal [facility] (Silver Peterson MD) Laboratory test finding (navigational concept) 0.5 10 0 .0-0.5 Normal (applies to non-numeric results) [facility] (Silver Peterson MD) Laboratory test finding (navigational concept) 0.1 10 0 .0-0.2 Normal (applies to non-numeric results) [facility] (Silver Peterson MD) ID Date Data Source [id number] 11/28/2020 12:41:00 PM EDT [facility] [address] [place] [address] PHONE: [phone] FAX: [phone] Name .................. : PATRICIADEVI BENNETT Gutierrez Acct Number.................. : [id number] ROOM. ................. : TR-08 Number ................... : [id number] Stay type ............. : E/R Discharge Date......... ... : 11/27/20 Admit Date ......... : 11/27/20 Admit Phys .................... : BERE ULRICH Date of ....... : 1945 Family Phys ................... : Row44 Phone .................. : [phone] Age ................................ : 75 Film# .................. .:[id number] Sex ................................. : F Unsigned transcriptions are preliminary reports and do not represent a medical or legal document SPINE THORACIC [id number] COMPLETE:11/27/20 16:48 [facility] 6800 Reason(s): Fall THORACIC SPINE X-RAY: INDICATION: Fall. FINDINGS: Alignment is maintained. Anterior vertebral body heights are maintained. There is no fracture or dislocation. Multilevel degenerative disc disease is noted. There is exaggerated kyphosis. IMPRESSION: 1. No acute osseous abnormality of the thoracic spine. 2. Multilevel degenerative changes. Electronically Reviewed and Signed By Robert Gilliland M.D. , 11/28/20 12:41, [facility] Transcribe Initials: DZ , Transcribe Date: 11/28/20 00:39, Dictation Date: Copy for: EDOUARD LOYA via fax Copy for: CASPER RACHEL via modem Copy for: EMERGENCY DEPT via modem Copy for: 710 MED REC DISCHARGED Page 1 of 1 Name Value Range Interpretation Code Description Data Ro rce(s) Supporting Document(s) ID Date Data Source [id number] 11/28/2020 12:41:00 [place] [address] PHONE: [phone] FAX: [phone] Name .................. : PATRICIADEVI BENNETT Gutierrez Acct Number.................. : [id number] ROOM. ................. : TR-08 Number ................... : [id number] Stay type ............. : E/R Discharge Date......... ... : 11/27/20 Admit Date ......... : 11/27/20 Admit Phys .................... : BERE ULRICH Date of ....... : 1945 Family Phys ................... : CAS[place] Phone .................. : [phone] Age ................................ : 75 Film# .................. .:[id number] Sex ................................. : F Unsigned transcriptions are preliminary reports and do not represent a medical or legal document CHEST 2 VIEWS [id number] COMPLETE:11/27/20 16:48 KBO 6799 Reason(s): Chest Pain CHEST X-RAY: 2-VIEWS INDICATION: Chest pain. FINDINGS: The lungs are well-expanded with chronic interstitial changes and mild pulmonary vascular congestion. There is an area of approximately 2 cm in size in the left lower lobe which may represent a focal pneumonia or atelectasis. The cardiac silhouette is normal in size and contour. There is a left-sided cardiac conduction device. No acute osseous abnormality. IMPRESSION: 2 cm area of opacity in the left lower lobe. This may represent atelectasis versus an infiltrate. Electronically Reviewed and Signed By Robert Gilliland M.D. , 11/28/20 12:41, [facility] Transcribe Initials: KIRIT , Transcribe Date: 11/28/20 00:35, Dictation Date: Copy for: EDOUARD LOYA via fax Copy for: CASPER RACHEL via modem Copy for: EMERGENCY DEPT via modem Copy for: 710 MED REC DISCHARGED Page 1 of 1 Name Value Range Interpretation Code Description Data Ro rce(s) Supporting Document(s) ID Date Data Source [id number] 11/28/2020 12:41:00 PM EDT [facility] [address] [place] [address] PHONE: [phone] FAX: [phone] Name .................. : TR Whitley Acct Number.................. : [id number] ROOM. ................. : [facility] Number ................... : [id number] Stay type ............. : E/R Discharge Date......... ... : 11/27/20 Admit Date ......... : 11/27/20 Admit Phys .................... : BERE ULRICH Date of ....... : 1945 Family Phys ................... : [place] Phone .................. : [phone] Age ................................ : 75 Film# .................. .:[id number] Sex ................................. : F Unsigned transcriptions are preliminary reports and do not represent a medical or legal document HIP UNILAT W PELV 2 TO 3V LT [id number] COMPLETE:11/27/20 16:48 KBO 6798 Reason(s): Hip Injury LEFT HIP WITH AP PELVIS X-RAY: INDICATION: Hip injury. FINDINGS/IMPRESSION: There is no fracture or dislocation. Moderate degenerative changes are noted of the left femoroacetabular joint. Electronically Reviewed and Signed By Robert Gilliland M.D. , 11/28/20 12:41, [facility] Transcribe Initials: DZ , Transcribe Date: 11/28/20 00:33, Dictation Date: Copy for: EDOUARD ALEJANDREDE via fax Copy for: CASPER DESIRDIA via modem Copy for: EMERGENCY DEPT via modem Copy for: 710 MED REC DISCHARGED Page 1 of 1 Name Value Range Interpretation Code Description Data Ro rce(s) Supporting Document(s) ID Date Data Source [id number] 11/27/2020 03:26:00 PM EDT [facility] 1 OrderSheet [facility] Emergency Department [address] [place] [address] Phone #: ext- [phone] 11/27/2020 15:12 Patient: DONALD ARMANDO Sex: F : 1945 Age: 75yWEIGHT:73.4 kg (S) HEIGHT:63 inches (S) BMI:28.7ALLERGIES: Codeine, DilantinCHIEF COMPLAINT: slipped, fall, attempting to get upDIAGNOSIS: Fall, Contusion, PneumoniaLAB ORDERSOrder Description Priority Entered Acknowledged InitialedUrinalysis (Clean STAT 16:42 11/27/2020 16:53 BurnhamCatch) Ravindra [facility] TechDamaso PA; [id number] STUDY ORDERSOrder Description Priority Entered Acknowledged InitialedHip Left with Pelvis STAT 16:07 11/27/2020 16:13 Burnham2-3 Views [facility]; Tech1 Reason for Study: Hip Injury, Hip PainChest 2 View STAT 16:07 11/27/2020 16:13 Chari(Oxygen?(No)) [facility] HospitalDam[facility] PA; Tech1 NOTES: Fall left rib pain Reason for Study: Chest PainSpine Thoracic AP STAT 16:07 11/27/2020 16:13 BurnhamAnd Lat Ravindra Kimble larriman helper, Damaso ER(Oxygen?(No)) PA; Tech1 Reason for Study: Fall, Mid Back PainMEDICATION/IV/DRIP/FLUID ORDERSOrder Description Priority Entered Acknowledged InitialedTylenol PO 1000 16:07 11/27/2020 16:55 Graham Whalen RN PA;Vicodin (5-325mg) 17:17 11/27/2020 17:32 PeterPO 1 tab ( HIGH Ravindra Whalen RNALERT PA;MEDICATION)GENERAL ORDERS 2 OrderSheet [facility] Emergency Department [address] [place] [address] Phone #: ext- [phone] 11/27/2020 15:12 Patient: DONALD ARMANDO Sex: F : 1945 Age: 75yOrder Description Priority Entered Acknowledged InitialedSpirometry - 17:24 11/27/2020 Cancelled: Physician Order 17:33 RavindraIncentive (RT Req.) Ravindra SILVA PA;[Electronically signed by Osmar Whalen RN (17:44 11/27/2020)][Electronically signed by Ravindra Kimble (21:39 11/27/2020)][Electronically locked by Osmar Whalen RN (17:44 11/27/2020)] Name Value Range Interpretation Code Description Data Ro rce(s) Supporting Document(s) ID Date Data Source [id number] 11/27/2020 03:26:00 PM EDT [facility] 1 Medication Reconciliation Report [facility] Emergency Department [address] [place] [address] Phone #: ext- [phone] 11/27/2020 15:12 Patient: DONALD ARMANDO Sex: F : 1945 Age: 75yWeight: 73.4 kgHeight/Length: 63 in.BMI: 28.7ALLERGIES: Codeine, DilantinThe patient's Home Medications are listed below:CONTINUE TAKING THE FOLLOWING MEDICATIONS: Aspirin Oral (325 mg), daily Atorvastatin Calcium Oral (20 mg) 1 tablet, at bedtime Calcium 600 Oral Ferrous Sulfate Oral (325 (65 Fe) mg) 1 tablet, daily Furosemide Oral 40 mg, daily Ipratropium- Albuterol Inhalation Losartan Potassium Oral 100 mg, daily metFORMIN HCl Oral (1000 mg), 2x a day Oxygen Pantoprazole Sodium Oral (40 mg) 1 tablet, daily Raloxifene HCl Oral (60 mg) 1 tablet, daily raNITIdine HCl Oral 300 mg, daily, at bedtime Ventolin HFA Inhalation Vitamin B12 Oral Vitamin D3 Oral 50mcg, daily 2 Medication Reconciliation Report [facility] Emergency Department [address] [place] [address] Phone #: ext- [phone] 11/27/2020 15:12 Patient: DONALD ARMANDO Sex: F : 1945 Age: 75yThe source(s) of the original Home Medication information:Not obtained.The following Medications were given to the patient in the Emergency Department:Tylenol [PO] PO 1000 mg, administered: 16:55 11/27/2020VICODIN (5-325MG) [PO] PO 1 tab, administered: 17:32 11/27/2020The following Medications were prescribed to the patient:Augmentin 875 mg-125 mg tablet Take 1 tablet twice a day as directed for 10 days -- Dispense 20tablet. Refills: 0. Substitution permitted. Note to Pharmacy - Discounted [facility]: $217.82. Adjudicatewith: BIN:[id number] PCN:TEEPO Group:EMR ID:[id number]. Phone:[phone].Pharmacy - [facility] [address] [place] [address]. .azithromycin 250 mg tablet -- Take 2 tablets on the first day then one tablet daily for 4 days, totalduration is 5 days. Dispense 6 tablet. Refills: 0. Substitution permitted.Pharmacy - [facility] [address] [place] [address]. .gabapentin 100 mg capsule Take 1 capsule three times a day for 30 days -- Dispense 90 capsule.Refills: 0. Substitution permitted. Note to Pharmacy - Discounted [facility]: $19.99. Adjudicate with:BIN:[id number] PCN:BIJAN Group:EMR ID:[id number]. Phone:[phone].Pharmacy - [facility] [address] [place] [address]. . -- SHIRA Medina Name Value Range Interpretation Code Description Data Ro rce(s) Supporting Document(s) ID Date Data Source [id number] 11/27/2020 03:26:00 PM EDT [facility] 1 Medication Administration Record [facility] Emergency Department [address] [place] [address] Phone #: [phone] ext- [phone] 11/27/2020 15:12 Patient: DONALD ARMANDO Sex: F : 1945 Age: 75yWeight: 73.4 kgHeight/Length: 63 inBMI: 28.7ALLERGIES: Codeine, Dilantin Date/Time Medication Administered Medication OrderedGiven TYLENOL [PO] (APAP) Tylenol PO 1000 mg16:55 11/27/2020 Dose: 1000 mg Tablets Uli Whalen RNGiven VICODIN (5-325MG) [PO] Vicodin (5-325mg) PO 1 tab (HIGH17:32 11/27/2020 (ACETAMINOPHEN- HYDROCODONE) ALERT MEDICATION)Osmar Whalen RN Dose: 1 tab 5/325 mg Tablets PO Name Value Range Interpretation Code Description Data Ro rce(s) Supporting Document(s) ID Date Data Source [id number] 11/27/2020 03:26:00 PM EDT [facility] 1 General Instructions [facility] Emergency Department [address] [place] [address] Phone #: ext- [phone] 11/27/2020 15:12 Patient: DONALD ARMANDO Sex: F : 1945 Age: 75y Lobar pneumonia. Multiple contusions with soft tissue hematoma and abrasion to the left anterior chest, right knee and left hip. Fall on the same level by tripping.INSTRUCTIONS Warnings: Further evaluation is necessary. It is very important to follow up with a healthcare provider. GENERAL WARNINGS: Return or contact your physician immediately if your condition worsens or changes unexpectedly, if not improving as expected, or if other problems arise. SPECIFICALLY, return if there is no improvement in the pain. Your Current Medications: Your current home medications have been reviewed. CONTINUE TAKING THE FOLLOWING MEDICATIONS: Aspirin Oral : Tablet 325 mg, daily. Atorvastatin Calcium Oral : Tablet 20 mg, 1 tablet, at bedtime. Calcium 600 Oral. Ferrous Sulfate Oral : Tablet 325 (65 Fe) mg, 1 tablet daily. Furosemide Oral : 40 mg daily. Ipratropium-Albuterol Inhalation. Losartan Potassium Oral : 100 mg daily. metFORMIN HCl Oral : Tablet 1000 mg, 2x a day. Oxygen*. Pantoprazole Sodium Oral : Tablet Delayed Release 40 mg, 1 tablet daily. Raloxifene HCl Oral : Tablet 60 mg, 1 tablet daily. raNITIdine HCl Oral : 300 mg daily, at bedtime. Ventolin HFA Inhalation. Vitamin B12 Oral. Vitamin D3 Oral : 50mcg daily. Prescription Medications: Augmentin 875 mg-125 mg tablet Take 1 tablet twice a day as directed for 10 days -- Dispense 20 tablet. Refills: 0. Substitution permitted. Note to Pharmacy - [facility]ounted [facility]: $217.82. Adjudicate with: BIN:[id number] N:TEE Group:EMR ID:[id number]. Phone:[phone]. Pharmacy - [facility] #[id number] [id number]. . azithromycin 250 mg tablet -- Take 2 tablets on the first day then one tablet daily for 4 days, total 2 General Instructions [facility] Emergency Department [address] [place] [address] Phone #: ext- [phone] 11/27/2020 15:12 Patient: DONALD ARMANDO Sex: F : 1945 Age: 75y duration is 5 days. Dispense 6 tablet. Refills: 0. Substitution permitted. Pharmacy - [facility] #[id number] [id number]. . gabapentin 100 mg capsule Take 1 capsule three times a day for 30 days -- Dispense 90 capsule. Refills: 0. Substitution permitted. Note to Pharmacy - [facility]ounted [facility]: $19.99. Adjudicate with: BIN:[id number] PCN:BIJAN Group:EMR ID:[id number]. Phone:[phone]. Pharmacy - [facility] #[id number] - [address] [place], [place] [id number]. . Follow-up: Follow up with your doctor in three days if not better. Reason for referral: evaluation and treatment. Summary of care provided to patient. Understanding of the discharge instructions verbalized by patient. ADDITIONAL INFORMATIONMechanical FallYou have had a fall today. It appears that the cause is what is called mechanical. That means thatyo u slipped, tripped, or lost your balance. If your fall had been because of fainting or a seizure, youmight need other tests.It is normal to feel sore and tight in your muscles and back the next day, and not just the muscles youinjured at first. Remember, all the parts of your body are connected, so while initially one area hurts,the next day another may hurt. Also, when you injure yourself, it causes inflammation, which thencauses the muscles to tighten up and hurt more. After the initial worsening, it should graduallyimprove over the next few days. Do report more severe pain.Even without a definite head injury, you can still get a concussion from your head suddenly jerkingforward, backward, or sideways when falling. Concussions and even bleeding can still happen,especially if you have had a recent injury or take blood thinner medicine. It is not unusual to have amild headache and feel tired and even nauseous or dizzy.Home care Rest today and go back to your normal activities when you are feeling back to normal. If you were injured during the fall, follow the advice from your healthcare provider regarding care of your injury. At first, do not try to stretch out the sore spots. If there is a strain, stretching may make it worse. Massage may help relax the muscles without stretching them. 3 General Instructions [facility] Emergency Department [address] [place] [address] Phone #: ext- [phone] 11/27/2020 15:12 --------- [facility]: [id number] Sex: F : 1945 Age: 75y You can use an ice pack or cold compress on and off to the sore spots 10 to 20 minutes at a time, as often as you feel comfortable. This may help reduce the inflammation, swelling and pain. If you have any scrapes or abrasions, they usually heal within 10 days. It is important to keep the abrasions clean while they initially start to heal. However, an infection may happen even with proper care, so watch for early signs of infection (such as warmth, redness, or swelling).Medicines Talk to your healthcare provider before taking new medicines, especially if you have other medical problems or are taking other medicines. If you need anything for pain, you can take acetaminophen or ibuprofen, unless you were given a different pain medicine to use. Talk with your healthcare provider before using these medicines if you have chronic liver or kidney disease, or ever had a stomach ulcer or gastrointestinal bleeding, or are taking blood thinner medicines. Be careful if you are given prescription pain medicines, narcotics, or medicine for muscle spasm. They can make you sleepy and dizzy, and can affect your coordination, reflexes, and judgment. Do not drive or do work where you can injure yourself when taking them.Fall prevention Fix, remove, or replace anything that caused your fall. Make your home safe by keeping walkways clear of objects you may trip over. Use nonslip pads under rugs. Don't use small area rugs or throw rugs. Don't walk in poorly lit areas. Don't stand on chairs or wobbly ladders. Use caution when reaching overhead or looking upward. This position can cause a loss of balance. Be sure your shoes fit properly, have nonslip bottoms and are in good condition. Be cautious when going up and down curbs, and walking on uneven sidewalks. If your balance is poor, consider using a cane or walker. Stay as active as you can. Balance, flexibility, strength, and endurance all come from exercise. They all play a role in preventing falls. If you have pets, know where they are before you stand up or walk so you don't trip over 4 General Instructions [facility] Emergency Department [address] [place] [address] Phone #: ext- [phone] 11/27/2020 15:12 Patient: DONALD ARMAND[id number] Sex: F : 1945 Age: 75y them. Limit alcohol intake. Alcohol can cause balance problems and increase the risk of falls. Use night lights. Have your eyes tested to be sure you are seeing well, even if you already wear glasses.Follow-upFollow up with your healthcare provider, or as advised. If X-rays or CT scans were done, you will benotified if there is a change in the reading, especially if it affects treatment.Call [phone] if any of these happen: Trouble breathing Confused or difficulty arousing Fainting or loss of consciousness Rapid or very slow heart rate Se izure Difficulty with speech or vision, weakness of an arm or leg Difficulty walking or talking, loss of balance, numbness or weakness in one side of your body, or facial droopWhen to seek medical adviceCall your healthcare provider right away if any of these happen: Repeated mechanical falls, or unexplained falls Dizziness Severe headache Blood in vomit, stools (black or red color) 5454-1354 [employer]. [address] [place] [address]. All rights reserved. This information is not intended as asubstitute for professional medical care. Always follow your healthcare professional's instructions.Chest Bruise (Contusion) 5 General Instructions [facility] Emergency Department [address] [place], [place] [id number] Phone #: ext- [phone] 11/27/2020 15:12 Patient: DONALD ARMANDO Sex: F : 1945 Age: 75yThe chest wall runs from the shoulders to the diaphragm or bottom of the ribs. It includes the frontand back of the rib cage. It also includes the breastbone, shoulders, and collarbones. A blunt traumasuch as during a car accident or fall can injure the chest wall. This injury is called a chest wall bruise(contusion).Injury to the chest wall may result in pain, tenderness, bruising, and swelling. It may also result inbroken ribs and injured muscles. These cause pain, often during breathing. If one or more ribs arebroken in several areas, the chest wall may become unstable and painful. This may cause seriousbreathing trouble.In the emergency room or urgent care center, any broken bones or other injuries will be assessed.You will likely be given medicine for pain. Broken ribs usually heal without further treatment. A brokenshoulder or collarbone may be taped or supported with a sling.Home careFollow these guidelines when caring for yourself at home: Rest. Don't do any heavy lifting or strenuous activity. Don't do any activity that causes pain. Put an ice pack on the injured area. Do this for 20 minutes every 1 to 2 hours the first day. You can make an ice pack by wrapping a plastic bag of ice cubes in a thin towel. Continue to use the ice pack 3 to 4 times a day for the next 2 days. Then use the ice pack as needed to ease pain and swelling. After 1 to 2 days you may put a warm compress on the area. Do this for 10 minutes several times a day. A warm compress is a clean cloth that's damp with warm water. 6 General Instructions [facility] Emergency Department [address] [place] [address] Phone #: ext- [phone] 11/27/2020 15:12 Patient: DONALD ARMANDO Sex: F : 1945 Age: 75y Hold a pillow to the affected area when you cough. This will help ease pain. You may use [id number] pain medicine such as acetaminophen or ibuprofen to control pain, unless another pain medicine was prescribed. If you have chronic liver or kidney disease, talk with your healthcare provider before using these medicines. Also talk with your provider if you've had a stomach ulcer or gastrointestinal bleeding.Follow-up careFollow up with your healthcare provider, or as advised.When to seek medical adviceCall your healthcare provider right away if any of these occur: New abdominal pain or abdominal pain that gets worse Fever of 100.4F (38C) or higher, or as directed by your healthcare providerCall 911Call 911 if any of these occur: Dizziness, weakness, or fainting Shortness of breath, trouble breathing, or breathing fast Chest pain gets worse when you breathe Severe pain that comes on suddenly or lasts more than an hour [id number] [employer]. [address] [place] [address]. All rights reserved. This information is not intended as asubstitute for professional medical care. Always follow your healthcare professional's instructions.Upper Extremity BruiseYou have a bruise (contusion) on your arm, wrist, hand, or fingers. Symptoms include pain, swelling,and skin discoloration. No bones are broken. This injury may take from a few days to a few weeks toheal. During that time, the bruise may change from reddish in color, to purple-blue, to green-yellow, toyellow-brown.Home care Unless another medicine was prescribed, you can take acetaminophen, ibuprofen, or naproxen to control pain. Talk with your healthcare provider before using these medicines if you have chronic live r or kidney disease or ever had a stomach ulcer or digestive bleeding. 7 General Instructions [facility] Emergency Department [address] [place] [address] Phone #: ext- [phone] 11/27/2020 15:12 Patient: DONALD ARMANDO Sex: F : 1945 Age: 75y Elevate the injured area to reduce pain and swelling. As much as possible, sit or lie down with the injured area raised about the level of your heart. This is especially important during the first 48 hours. Ice the injured area to help reduce pain and swelling. Wrap an ice pack or ice cubes in a plastic bag in a thin towel. Apply to the bruised area for 20 minutes every 1 to 2 hours the first day. Continue this 3 to 4 times a day until the pain and swelling goes away. If a sling was provided, you may remove it to shower or bathe. To prevent joint stiffness, don't wear it for more than 1 week.Follow-up careFollow up with your healthcare provide, or as advised. Call if you are not improving within the next 1to 2 weeks.When to seek medical adviceCall your healthcare provider right away if any of these occur: Increased pain or swelling Hand or fingers become cold, blue, numb or tingly Signs of infection: Warmth, drainage, or increased redness or pain around the injury Inability to move the injured body part, the hand, or individual fingers. Frequent bruising for unknown reasons [id number] [employer]. [address] [place] [address]. All rights reserved. This information is not intended as asubstitute for professional medical care. Always follow your healthcare professional's instructions.Lower Extremity BruiseYou have a bruise (contusion on a leg, knee, ankle, foot, or toe. Symptoms include pain, swelling,and skin discoloration. No bones are broken. This injury may take from a few days to a few weeks toheal. During that time, the bruise may change from reddish in color, to purple-blue, to green-yellow,to yellow-brown.Home care Unless another medicine was prescribed, you can take acetaminophen, ibuprofen, or naproxen to control pain. Talk with your healthcare provider before using these medicines if you have chronic liver or kidney disease or ever had a stomach ulcer or digestive bleeding. 8 General Instructions [facility] Emergency Department [address] [place] [address] Phone #: ext- [phone] 11/27/2020 15:12 Patient: DONALD ARMANDO Sex: F : 1945 Age: 75y Elevate the injured area to reduce pain and swelling. As much as possible, sit or lie down with the injured area raised about the level of your heart. This is especially important during the first 48 hours. Ice the injured area to help reduce pain and swelling. Wrap an ice pack or ice cubes in a plastic bag in a thin towel. Apply to the bruised area for 20 minutes every 1 to 2 hours the first day. Continue this 3 to 4 times a day until the pain and swelling goes away. If crutches have been advised, don't bear full weight on the injured leg until you can do so without pain. You may return to sports when you are able to put full weight and impact on the injured leg without pain.Follow upFollow up with your healthcare provider, or as advised. Call if you are not improving within the next 1to 2 weeks.When to seek medical adviceCall your healthcare provider right away if any of these occur: Increased pain or swelling Foot or toes become cold, blue, numb or tingly Signs of infection: Warmth, drainage, or increased redness or pain around the injury Inability to move the injured area, or any joints below the injured area Frequent bruising for unknown reasons [id number] [employer]. [address] [place] [address], [place] [address]. All rights reserved. This information is not intended as asubstitute for professional medical care. Always follow your healthcare professional's instructions.Pneumonia (Adult)Pneumonia is an infection deep in the lungs. It is in the small air sacs (alveoli). It may be ca used by avirus, fungus, or bacteria. Pneumonia caused by bacteria is often treated with an antibiotic. Severecases may need to be treated in the hospital. Milder cases can be treated at home. Pneumoniasymptoms are a lot like flu symptoms. They include fever, cough (dry or with phlegm), headache,muscle weakness, and pain. These symptoms often get worse in the first 2 days. But they often startto get better in the first week of treatment. 9 General Instructions [facility] Emergency Department [address] [place] [address] Phone #: ext- [phone] 11/27/2020 15:12 Patient: DONALD ARMANDO Sex: F : 1945 Age: 75yHome careFollow these guidelines when caring for yourself at home: Get plenty of rest. Don't let yourself get overly tired when you go back to your activities. Participate in activities as directed by your healthcare provider. Stop smoking. This is the most important step you can take to help treat pneumonia. If you need help stopping smoking, talk with your healthcare provider. Stay away from smoke and other irritants. Stay away from secondhand smoke. Don't let anyone smoke in your home. 10 General Instructions [facility] Emergency Department [address] [place] [address] Phone #: ext- [phone] 11/27/2020 15:12 Patient: DONALD ARMANDO Sex: F : 1945 Age: 75y Prevent lung infections. Ask your healthcare provider about the flu and pneumonia vaccines. Take steps to prevent colds and other lung infections. Practice correct handwashing. Wash your hands often with soap and water. Use hand church history teacher when you can't wash your hands. Stay away from crowds during cold and flu season. Use pain medicine as directed. You may use acetaminophen or ibuprofen to control fever or pain, unless another medicine was prescribed. If you have chronic liver or kidney disease, talk with your healthcare provider before using these medicines. Also talk with your provider if you've had a stomach ulcer or GI (gastrointestinal) bleeding. Don't give aspirin to a child younger than age 19 unless directed by the provider. Taking aspirin can put a child at risk for Aliyah syndrome. This is a rare but very serious disorder. It most often affects the brain and the liver. Eat a light diet as needed. You may not feel like eating, so a light diet is fine. Follow the treatment plan as advised by your healthcare provider. Drink plenty of water and fluids. This can make mucus thinner and easier to cough up. Ask your healthcare provider how much water you should drink. For many people, 6 to 8 glasses (8 ounces each) a day is a good goal. Other fluids include sport drinks, sodas without caffeine, juices, tea, or soup. If you also have heart or kidney disease, check with your provider before you drink extra fluids. Finish all prescription medicine. Take antibiotic or antiviral medicine as prescribed by your healthcare provider, even if you are feeling better after a few days. Take the medicine until it is all gone. Try to stay away from air pollution. If you live in an area with air pollution, track the Air Quality Index (AQI) reports and plan your outdoor activities with the AQI recommendations in mindFollow-up careFollow up with your healthcare provider in the next 2 to 3 days, or as advised. This is to be sure themedicine is helping you get better.If you are 65 or older, you should get a pneumococcal vaccine and a yearly flu (influenza) shot. Youshould also get these vaccines if you have chronic lung disease such as asthma, emphysema, orCOPD. A second type of pneumonia vaccine is also available for people over age 65 and thoseyounger than 65 with certain health conditions. Talk with your healthcare provider about whichpneumococcal vaccine is best for you.Call [phone] any of these occur: 11 General Instructions [facility] Emergency Department [address] [place] [address] Phone #: ext- [phone] 11/27/2020 15:12 Patient: DONALD ARMANDO Sex: F : 1945 Age: 75y Unable to speak or swallow Lips or skin looks blue, purple, or fish Feeling dizzy or faint Unable to wake up or loss of consciousness Feeling of doom Trouble breathing or wheezing Shortness of breath gets worse or doesn't get better with treatment Rapid breathing (more than 25 breaths per minute) Coughing up blood Chest pain gets worse with breathing or doesn't get better with treatmentWhen to get medical adviceCall your healthcare provider right away if any of these occur: You don't get better in the first 2 days of treatment Fever of 100.4F (38C) or higher, or as directed by your healthcare provi watl Shaking chills Cough with phlegm that doesn't get better, or get worse Shortness of breath with activities Weakness, dizziness, or fainting that gets worse Thirst or dry mouth that gets worse Sinus pain, headache, or a stiff neck Chest pain with breathing or coughing Symptoms that get worse or not improving [id number] [employer]. [address] [place] [address]. All rights reserved. This information is not intendedas a substitute for professional medical care. Always follow your healthcare professional's instructions. You have been given the following additional information: Mechanical Fall Chest Wall Contusion 12 General Instructions [facility] Emergency Department [address] [place] [address] Phone #: ext [phone] 11/27/2020 15:12 Patient: DONALD ARMANDO Sex: F : 1945 Age: 75y Contusion, Upper Extremity Contusion, Lower Extremity Pneumonia (Adult)(Electronically signed by SHIRA Medina 11/27/2020 21:39) Name Value Range Interpretation Code Description Data Ro rce(s) Supporting Document(s) ID Date Data Source [id number] 11/27/2020 03:26:00 PM EDT [facility] 1 Clinical Report - Nurses [facility] Emergency Department [address] [place] [address] Phone #: ext- [phone] 11/27/2020 15:12 Patient: DONALD ARMANDO Sex: F : 1945 Age: 75yTRIAGEArrived by private vehicle. Historian: patient. Accompanied by family.Acuity: LEVEL 3.Chief Complaint: FALL. Slipped while attempting to get up.(left hip/side).Location of injuries: left axilla, left forearm, right knee and left hip. This occurred (12 hours ago). 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 SEPSIS SCREEN NEGATIVE. No suspected or conf irmedsigns of infection present.KERRI COMA SCORE: 15- eyes open- spontaneous (4); best verbal response- oriented (5); bestmotor response- obeys commands (6). --15:31 11/27/20 Osmar Whalen RN15:25 11/27/20. BP: 105/75. MAP: 85. HR: 75. RR: 18. O2 saturation: 96%. Temp: 97.9 F. Pain level now:05/18. --15:31 11/27/20 Osmar Whalen RN.Weight: 73.4 kg stated. Height/Length: 63 inches Per Patient. BMI: 28.7. --15:24 11/27/20 Osmar Whalen RN.MedicationsAspirin Oral (Tablet 325 mg), daily. Atorvastatin Calcium Oral (Tablet 20 mg) 1 tablet, at bedtime. Calcium 600 Oral. Ferrous Sulfate Oral (Tablet 325 (65 Fe) mg) 1 tablet, daily. Furosemide Oral 40 mg, daily. Ipratropium-Albuterol Inhalation. Losartan Potassium Oral 100 mg, daily. metFORMIN HCl Oral (Tablet 1000 mg), 2x a day. Oxygen. Pantoprazole Sodium Oral (Tablet Delayed Release 40 mg) 1 tablet, daily. Raloxifene HCl Oral (Tablet 60 mg) 1 tablet, daily. raNITIdine HCl Oral 300 mg, daily at bedtime. 2 Clinical Report - Nurses [facility] Emergency Department [address] [place] [address] Phone #: ext- [phone] 11/27/2020 15:12 [id number] Sex: F : 1945 Age: 75y Ventolin HFA Inhalation. Vitamin B12 Oral. Vitamin D3 Oral 50mcg, daily. --16:54 11/27/20 Osmar Whalen RN. Allergies Codeine. Dilantin. --16:54 11/27/20 Osmar Whalen RN. History PAST MEDICAL HX: Tetanus status: up-to-date. Immunizations: up-to-date. The patient is post-menopausal. SOCIAL HX: Former smoker, end date 03/2020. No alcohol use or drug use. She was offered HIV testing but declined and hepatitis C testing but declined. She has not traveled outside the [place] Infectious disease exposure: No infectious disease exposure. The patient was not exposed to Coronavirus. SELF HARM ASSESSMENT: Self harm assessment was performed. The patient answered "no" to the question(s) "Have you recently felt down, depressed, or hopeless?", "Do you have thoughts of harming or killing yourself?", "Do you have a plan for harming or killing yourself?", "Have you recently had thoughts about harming or killing others?", "Do you have any dangerous items in your possession?", "Have you noticed less interest or pleasure in doing things?", "Are you here because you tried to hurt yourself?" and "Have you ever tried to hurt yourself before today?". ABUSE ASSESSMENT: No report of abuse. NUTRITIONAL RISK ASSESSMENT: The nutritional risk assessment re vealed no deficiencies. LEARNING NEEDS ASSESSMENT: The learning needs assessment revealed no barriers. FALL RISK ASSESSMENT: Fall risk assessment completed. Risk factors identified include patient age greater than 65 years, history of fall and impairment of mobility. FUNCTIONAL ASSESSMENT: Functional assessment performed: uses walker. SKIN INTEGRITY ASSESSMENT: Skin integrity risk assessment completed. No skin integrity risk identified. --15:11/27/20 Osmar Whalen RN. Interventions To treatment room. --15:11/27/20 Osmar Whalen RN.PHYSICAL ASSESSMENTTo room via wheelchair.GENERAL / NEURO / PSYCH: Alert. Oriented X 4. Appears in pain.HEENT: Pupils equal, round and reactive to light. Head non-tender.RESPIRATORY: Respirations not labored. Breath sounds within normal limits. ( pain with palpation to 3 Clinical Report - Nurses [facility] Emergency Department [address] [place] [address] Phone #: ext- [phone] 11/27/2020 15:12 Patient: DONALD ARMANDO Sex: F : 1945 Age: 75y left chest area, lateral area). CVS: Left breast area : tenderness. Left rib area: tenderness. Normal heart rate and rhythm. Cardiac rhythm: 100% ventricular pacing. Pulses within normal limits. Capillary refill less than 2 seconds. GI / : Abdomen soft and nontender. EXTREMITIES: Extremities exhibit normal ROM. Neuro-vascular status intact to the extremity. Left forearm: small abrasion (mepilex dressing apllied per home health nurse). Right knee: ecchymosis. Left hip: tenderness. SKIN: Skin intact. Skin is warm and dry. --15:34 11/27/20 Osmar Whalen RN.NURSING PROGRESS NOTESCardiac monitor and NIBP monitor placed on patient; classroom monitor- Lead II; monitor alarms on.Extremity elevated. Patient gowned. Reassurance given. Call light placed in reach. Side rails up x 2.Bed placed in lowest position. Brakes of bed on. Patient ready for evaluation- ED physician notified.--15:35 11/27/20 Osmar Whalen RN Patient transported to CT by stretcher with mask and orthodontic laboratory technician. --16:15 11/27/20 [place] larriman helper, Damaso, ER Tech1 Correction --16:15 11/27/20 [place] larriman helper, Daamso, ER Tech1 Patient transported to radiology by stretcher with orthodontic laboratory technician. --16:16 11/27/20 [facility] Tech, Damaso, ER Tech1 Patient ID band checked for patient name and birthdate: patient confirmed. Instructions provided to collect clean catch urine and patient verbalized understanding. Clean catch urine collected with return of yellow-colored clear urine; sample sent to lab for urinalysis and culture. Specimen labeled in the presence of the patient. --16:55 11/27/20 [facility] Tech, Damaso, ER Tech1 16:55 11/27/2020 Tylenol (APAP) PO Tablets 1000 mg given. Allergies verified and confirmed 5 rights. Information reviewed with patient including reason for taking this medication. Verbalizes understanding. --16:55 11/27/20 Osmar Whalen RN 17:32 11/27/2020 VICODIN (5-325MG) (Acetaminophen-HYDROcodone) PO 5/325 mg Tablets 1 tab given. Allergies verified and confirmed 5 rights. Information reviewed with patient including reason for taking this medication and sedative warning. Verbalizes understanding. --17:32 11/27/20 Osmar Whalen RN.DISPOSITION / DISCHARGE Condition at departure: improved and stable. Discharge instructions provided and reviewed with the patient. Reviewed medication(s) side effects, precautions, dosing and course information. Prescription(s) sent electronically to pharmacy. Patient verbalized understanding. Written instructions provided in [place]. The patient was discharged by the physician visitor service assistant. She was discharged home and accompanied by family. She left in a wheelchair and via private vehicle. Family member driving. --17:44 11/27/20 Osmar Whalen RN 17:43 11/27/20. BP: 118/65. MAP: 82. HR: 71. RR: 18. O2 saturation: 96%. Pain level now: 02/15. 4 Clinical Report - Nurses [facility] Emergency Department [address] [place] [address] Phone #: ext- [phone] 11/27/2020 15:12 Patient: DONALD ARMANDO Sex: F : 1945 Age: 75y --17:44 11/27/20 Osmar Whalen RN.Locked/Released at 11/27/2020 17:44 by Osmar Whalen RN Name Value Range Interpretation Code Description Data Ro rce(s) Supporting Document(s) ID Date Data Source [id number] 11/27/2020 03:26:00 PM EDT [facility] 1 Clinical Report - Physicians/Mid Levels [facility] Emergency Department [address] [place] [address] Phone #: ext- [phone] 11/27/2020 15:12 Patient: DONALD ARMANDO Sex: F : 1945 Age: 75y Time Seen: 15:55 11/27/2020. Arrived- By private vehicle. Historian- patient.HISTORY OF PRESENT ILLNESS Chief Complaint: FALL: Location of injuries- chest, upper back, right knee and left forearm and left hip. The injury occurred this AM. Fell: No fainting episodes. Occurred at home. ( left axilla, left forearm, right knee and left hip. This occurred (12 hours ago). ( pt states she was attempting to get out of bed early this morning and she thought the bed was there when she went to use her hand and over judged the bed and she fell to the floor landing on the hardwood floor causing an injury to her left forearm, left hip and axillary area, and bruised her right knee)). The patient complains of mild pain. No blow to the head, neck pain, loss of consciousness or seizure. Not dazed.REVIEW OF SYSTEMSThe patient complains of pain on weight bearing. No n umbness, dizziness, loss of vision, hearing loss ordifficulty breathing. No weakness, headache, nausea, abdominal pain or laceration. No fever, vomiting,urinary problems or depression. The patient has had chest pain.PAST HISTORYDiabetes mellitus. Problems: Pneumonia. Medications: Aspirin Oral (Tablet 325 mg), daily. Atorvastatin Calcium Oral (Tablet 20 mg) 1 tablet, at bedtime. Calcium 600 Oral. Ferrous Sulfate Oral (Tablet 325 (65 Fe) mg) 1 tablet, daily. Furosemide Oral 40 mg, daily. Ipratropium-Albuterol Inhalation. Losartan Potassium Oral 100 mg, daily. metFORMIN HCl Oral (Tablet 1000 mg), 2x a day. Oxygen. Pantoprazole Sodium Oral (Tablet Delayed Release 40 mg) 1 tablet, daily. Raloxifene HCl Oral (Tablet 60 mg) 1 tablet, daily. raNITIdine HCl Oral 300 mg, daily at bedtime. 2 Clinical Report - Physicians/Mid Levels [facility] Emergency Department [address] [place] [address] Phone #: ext- [phone] 11/27/2020 15:12 Patient: DONALD ARMANDO Sex: F : 1945 Age: 75y Ventolin HFA Inhalation. Vitamin B12 Oral. Vitamin D3 Oral 50mcg, daily. Allergies: Codeine. Dilantin.SOCIAL HISTORYFormer smoker. No alcohol use or drug use.PHYSICAL EXAMVital Signs: 11/27/2020 15:25 BP: 105/75. MAP: 85. HR: 75. RR: 18. O2 saturation: 96%. Temp: 97.9 F.Pain level now: 9/10. Have been reviewed as normal. Oxygen saturation normal.Appearance: Alert. Oriented X3. No acute distress.Head: Head non-tender. No swelling of head.Eyes: Pupils equal, round a nd reactive to light. EOM intact.ENT: No dental injury. Pharynx normal.Neck: Painless ROM. Non-tender.CVS: Heart sounds normal. Pulses normal.Respiratory: Chest wall injury: moderate tenderness located in the upper and lateral chest. Splintingpresent. Chest wall: moderate tenderness located in the upper and lateral chest and area of the costalcartilage. Splinting present. Breath sounds normal.Abdomen: No visible injury. Soft and nontender. Bowel sounds normal. No organomegaly. No mass.Back: Tenderness in the left mid thoracic area.Skin: Skin warm and dry. Normal skin color. Normal skin turgor.Extremities: Left forearm: located in the mid forearm. (skin tear dressed by home health aid/ CDI). Lefthip: mild tenderness located in the lateral aspect of the hip. Limited ROM secondary to pain. Neurovascularintact distally.Gait: Gait not tested due to pain.Neuro: Oriented X 3.LABS, X-RAYS, AND EKGT-Spine X-rays: Degenerative joint disease. No fracture present. Views: AP and lateral. The X-rayswere interpreted by the radiologist and contemporaneously by me. Interpretation time: 16:50 11/27/2020.Chest X-ray: (2 cm area of the opacity in the left lower lobe. This may represent atelectasis versus aninfiltrate.). Views: PA and lateral. The X- rays were interpreted by the radiologist and contemporaneouslyby me. Interpretation time: 16:50 11/27/2020.Lt Hip X-ray: No fracture. Degenerative joint disease. Views: 2 view hip series. The X-rays wereinterpreted by the radiologist and contemporaneously by me. Interpretation time: 16:51 11/27/2020.PROGRESS AND PROCEDURESCourse of Care: 17:16 Nov 27 2020. (Discussed x-ray findings and pt is agreeable with dx and tx plan.). Patient counseled in person regarding the patient's stable condition, test results, diagnosis and need for 3 Clinical Report - Physicians/Mid Levels [facility] Emergency Department [address] [place] [address] Phone #: ext- [phone] 11/27/2020 15:12 Patient: DONALD ARMANDO Sex: F : 1945 Age: 75y follow-up. Patient agrees with plan of care. 17:Nov 27 2020. Disposition: Discharged home in good and improved condition (17:Nov 27 2020).CLINICAL IMPRESSION Lobar pneumonia. Multiple contusions with soft tissue hematoma and abrasion to the left anterior chest, right knee and left hip. Fall on the same level by tripping.INSTRUCTIONS Warnings: Further evaluation is necessary. It is very important to follow up with a healthcare provider. GENERAL WARNINGS: Return or contact your physician immediately if your condition worsens or changes unexpectedly, if not improving as expected, or if other problems arise. SPECIFICALLY, return if there is no improvement in the pain. Your Current Me dications: Your current home medications have been reviewed. CONTINUE TAKING THE FOLLOWING MEDICATIONS: Aspirin Oral : Tablet 325 mg, daily. Atorvastatin Calcium Oral : Tablet 20 mg, 1 tablet, at bedtime. Calcium 600 Oral. Ferrous Sulfate Oral : Tablet 325 (65 Fe) mg, 1 tablet daily. Furosemide Oral : 40 mg daily. Ipratropium-Albuterol Inhalation. Losartan Potassium Oral : 100 mg daily. metFORMIN HCl Oral : Tablet 1000 mg, 2x a day. Oxygen*. Pantoprazole Sodium Oral : Tablet Delayed Release 40 mg, 1 tablet daily. Raloxifene HCl Oral : Tablet 60 mg, 1 tablet daily. raNITIdine HCl Oral : 300 mg daily, at bedtime. Ventolin HFA Inhalation. Vitamin B12 Oral. Vitamin D3 Oral : 50mcg daily. Prescription Medications: Augmentin 875 mg-125 mg tablet Take 1 tablet twice a day as directed for 10 days -- Dispense 20 tablet. Refills: 0. Substitution permitted. Note to Pharmacy - Discounted [facility]: $217.82. Adjudicate with: BIN:[id number] SHAISTAN:BIJAN Group:EMR ID:[id number]. Phone:[phone]. [facility] [address] [place] [address]. . 4 Clinical Report - Physicians/Mid Levels [facility] Emergency Department [address] [place] [address] Phone #: ext- [phone] 11/27/2020 15:12 Patient: DONALD ARMANDO Sex: F : 1945 Age: 75y azithromycin 250 mg tablet -- Take 2 tablets on the first day then one tablet daily for 4 days, total duration is 5 days. Dispense 6 tablet. Refills: 0. Substitution permitted. [facility] [address] [place] [address]. . gabapentin 100 mg capsule Take 1 capsule three times a day for 30 days -- Dispense 90 capsule. Refills: 0. Substitution permitted. Note to Pharmacy - Discounted [facility]: $19.99. Adjudicate with: BIN:[id number] SHAISTAN:BIJAN Group:EMR ID:[id number]. Phone:[phone]. [facility] #[id number] [place] [address]. FaxNumber: [phone]. Follow-up: Follow up with your doctor in three days if not better. Reason for referral: evaluation and treatment. Summary of care provided to patient. Understanding of the discharge instructions verbalized by patient.(Electronically signed by SHIRA Medina 11/27/2020 21:39) Name Value Range Interpretation Code Description Data Ro rce(s) Supporting Document(s) ID Date Data Source [id number] 11/27/2020 04:45:00 PM EDT [facility] (Silver Peterson MD) Name Value Range Interpretation Code Description Data Ro rce(s) Supporting Document(s) Laboratory test finding (navigational concept) Laboratory test result [facility] (Silver Peterson MD) URINALYSIS Laboratory test finding (navigational concept) Laboratory test result [facility] (Silver Peterson MD) SOURCE: Clean Catch Laboratory test finding (navigational concept) Laboratory test result [facility] (Silver Peterson MD) SOURCE: Clean Catch Laboratory test finding (navigational concept) Laboratory test result [facility] (Silver Peterson MD) SOURCE: Clean Catch Laboratory test finding (navigational concept) 1.020 1.001-1.030 [facility] (Silver Peterson MD) SOURCE: Clean Catch Laboratory test finding (navigational concept) 5 5-9 [facility] (Silver Peterson MD) SOURCE: Clean Catch Laboratory test finding (navigational concept) Laboratory test result [facility] (Silver Peterson MD) SOURCE: Clean Catch Laboratory test finding (navigational concept) Laboratory test result [facility] (Silver Peterson MD) SOURCE: Clean Catch Laboratory test finding (navigational concept) Laboratory test result [facility] (Silver Peterson MD) SOURCE: Clean Catch Laboratory test finding (navigational concept) Laboratory test result [facility] (Silver Peterson MD) SOURCE: Clean Catch Laboratory test finding (navigational concept) Laboratory test result [facility] (Silver Peterson MD) SOURCE: Clean Catch Laboratory test finding (navigational concept) Laboratory test result [facility] (Silver Peterson MD) SOURCE: Clean Catch Laboratory test finding (navigational concept) Laboratory test result [facility] (Silver Peterson MD) SOURCE: Clean Catch Laboratory test finding (navigational concept) Laboratory test result [facility] (Silver Peterson MD) SOURCE: Clean Catch Laboratory test finding (navigational concept) Laboratory test result [facility] (Silver Peterson MD) SOURCE: Clean Catch ID Date Data Source [id number] 11/27/2020 05:14:00 PM EDT [facility] Name Value Range Interpretation Code Description Data Ro rce(s) Supporting Document(s) URINALYSIS [facility]er URINALYSIS SOURCE R [facility] COLOR yellow NORMAL: Yellow [facility] CLARITY clear NORMAL: Clear [facility] Specific gravity of Urine by Test strip 1.020 1.001 - 1.030 [facility] pH 5 5 - 9 [facility] al Glucose [Mass/volume] in Urine by Test strip NORM N[facility]AL[facility] Bil[facility].total [Presence] in Urine by Test strip NEG NORMAL: Negative [facility] Ketones [Presence] in Urine by Test strip NEG NORMAL: Negative [facility] Protein [Mass/volume] in Urine by Test strip NEG NORMAL: Negat [facility] Nitrite [Presence] in Urine by Test strip NEG NORMAL: Negative [facility] [facility] BLOOD NEG NORMAL: Negative [facility] Leukocyte esterase [Presence] in Urine by Test strip NEG FARRUKH L: Negative [facility] Urobilinogen [Mass/volume] in Urine by Test strip NOR less joyce n 1.0 mg/dL [facility] MICROSCOPIC Not Indicate [facility] ID Date Data Source [id number] 09/13/2020 01:40:00 PM EST [facility] [address] [place] [address] PHONE: [phone] FAX: [phone] Name .................. : RT Whitley Acct Number.................. : [id number] ROOM. ................. : MR Number ................... : [id number] Stay type ............. : O/P Discharge Date......... ... : 09/12/20 Admit Date ......... : 09/12/20 Admit Phys .................... : REY PAUL Date of ....... : 1945 Family Phys ................... : CASPER Phone .................. : [phone] Age ................................ : 75 Film# .................. .:[id number] Sex ................................. : F Unsigned transcriptions are preliminary reports and do not represent a medical or legal document [place] [id number] COMPLETE:09/12/20 15:25 KBO 1498 (REASON FOR PROCESS: FALL, ELBOW PAIN LEFT ELBOW X-RAY: INDICATION: Fall with elbow pain. FINDINGS/IMPRESSION: There is no fracture or dislocation. No significant degenerative changes. No joint effusion. Electronically Reviewed and Signed By Robert Gilliland M.D. , 09/13/20 13:40, NHY Transcribe Initials: KIRIT , Transcribe Date: 09/12/20 17:16, Dictation Date: Copy for: REY LOFTON via modem Copy for: CASPER RACHEL via modem Copy for: [id number] REC Page 1 of 1 Name Value Range Interpretation Code Description Data Ro rce(s) Supporting Document(s) ID Date Data Source [id number] 09/13/2020 01:40:00 PM EST [facility] [address] [address] PHONE: [phone] FAX: [phone] Name .................. : TR Whitley Acct Number.................. : [id number] ROOM. ................. : MR Number ................... : [id number] Stay type ............. : O/P Discharge Date......... ... : 09/12/20 Admit Date ......... : 09/12/20 Admit Phys .................... : REY BEVERLY Date of ....... : 1945 [facility] Phone .................. : [phone] Age ................................ : 75 Film# .................. .:[id number] Sex ................................. : F Unsigned transcriptions are preliminary reports and do not represent a medical or legal document SPINE LS COMPLETE [id number] COMPLETE:09/12/20 15:25 KBO 1497 (SPINE PROC REASON: FALL, BACKACHE LUMBAR SPINE X-RAY: INDICATION: Fall with backache. FINDINGS: Alignment is maintained. Anterior vertebral body heights are maintained. There is no evidence of fracture or dislocation. Moderate facet arthritis is noted from L3 through S1. Oblique images are at a suboptimal position on the left. There is no neuroforaminal narrowing on the right. IMPRESSION: 1. No acute osseous abnormality of the lumbar spine. 2. Moderate facet arthropathy from L3 through S1. Electronically Reviewed and Signed By Robert Gilliland M.D. , 09/13/20 13:40, NHY Transcribe Initials: DZ , Transcribe Date: 09/12/20 17:14, Dictation Date: Copy for: REY LOFTON via modem Copy for: CASPER RACHEL via modem Copy for: Laura MED REC Page 1 of 1 Name Value Range Interpretation Code Description Data Ro rce(s) Supporting Document(s) ID Date Data Source [id number] 09/12/2020 01:25:00 PM EST [facility] (Silver Peterson MD) Name Value Range Interpretation Code Description Data Ro rce(s) Supporting Document(s) Laboratory test finding (navigational concept) 144 meq/L 134-153 [facility] (Silver Peterson MD) Laboratory test finding (navigational concept) Laboratory test result [facility] (Silver Peterson MD) COMPREHENSIVE METABOLIC PANEL Laboratory test finding (navigational concept) 101 meq/L 98-107 [facility] (Silver Peterson MD) Laboratory test finding (navigational concept) 33 meq/L 22-30 Above high normal [facility] (Silver Peterson MD) Laboratory test finding (navigational concept) 5.2 meq/L 3 .6-5.0 Above high normal [facility] (Silver Peterson MD) Laboratory test finding (navigational concept) 62 mg/dL 7-21 Above high normal [facility] (Silver Peterson MD) Laboratory test finding (navigational concept) 62 mg/dL 65-110 Below low normal [facility] (Silver Peterson MD) Laboratory test finding (navigational concept) 3.0 mg/dL 0 .7-1.5 Above high normal [facility] (Silver Peterson MD) Laboratory test finding (navigational concept) 21 8-27 [facility] (Silver Peterson MD) Laboratory test finding (navigational concept) 6.7 g/dL 6.3-8.2 [facility] (Silver Peterson MD) Laboratory test finding (navigational concept) 4.0 g/dL 3.9-5.0 [facility] (Silver Peterson MD) Laboratory test finding (navigational concept) 1.5 0.8-2.0 [facility] (Silver Peterson MD) Laboratory test finding (navigational concept) 9.5 mg/dL 8.4-10.2 [facility] (Silver Peterson MD) Laboratory test finding (navigational concept) 2.7 GM/DL 2.4-3.2 [facility] (Silver Peterson MD) Laboratory test finding (navigational concept) 76 U/L 38-126 [facility] (Silver Peterson MD) Laboratory test finding (navigational concept) Laboratory test resu lt 0.2-1.3 [facility] (Silver Peterson MD) Laboratory test finding (navigational concept) 10.0 mmol/L 8.0-16.0 [facility] (Silver Peterson MD) Laboratory test finding (navigational concept) 10 U/L 5-40 [facility] (Silver Peterson MD) Laboratory test finding (navigational concept) 8 U/L 7-56 [facility] (Silver Peterson MD) Laboratory test finding (navigational concept) 16 mL/min [facility] (Silver Peterson MD) Laboratory test finding (navigational concept) 75 yrs [facility] (Sivler Peterson MD) Laboratory test finding (navigational concept) Laboratory test result [facility] (Silver Peterson MD) Male GFR Interprentation 20-49 yrs >60 mL/min Normal 50-59 yrs >56 mL/min Normal 60-69 yrs >49 mL/min Normal 70-79yrs >42 mL/min Normal 80 and above >35 mL/min Normal Female GFR Interpretation 20-39 yrs >60 mL/min Normal 40-49 yrs >58 mL/min Normal 50-59 yrs >51 mL/min Normal 60-69 yrs >45 mL/min Normal 70-79 yrs >39 mL/min Normal 80 and above >32 mL/min Normal ID Date Data Source [id number] 09/12/2020 01:25:00 PM EST [facility] (Silver Peterson MD) Name Value Range Interpretation Code Description Data Ro rce(s) Supporting Document(s) Laboratory test finding (navigational concept) Laboratory test result [facility] (Silver Peterson MD) COMPLETE BLOOD COUNT Laboratory test finding (navigational concept) 9.1 10^3/uL 4.2-11.0 [facility] (Silver Peterson MD) Laboratory test finding (navigational concept) 3.20 10^6/uL 4 .20-5.40 Below low normal [facility] (Silver Peterson MD) Laboratory test finding (navigational concept) 9.9 g/dL 1 2.0-16.0 Below low normal [facility] (Silver Peterson MD) Laboratory test finding (navigational concept) 32.5 % 3 7.0-47.0 Below low normal [facility] (Silver Peterson MD) Laboratory test finding (navigational concept) 30.9 pg 27.0-34.0 [facility] (Silver Peterson MD) Laboratory test finding (navigational concept) 101.6 fL 8 1.0-101 Above high normal [facility] (Silver Peterson MD) Laboratory test finding (navigational concept) 17.1 % 1 1.5-14.5 Above high normal [facility] (Silver Peterson MD) Laboratory test finding (navigational concept) 30.5 g/dL 3 1.0-36.0 Below low normal [facility] (Silver Peterson MD) Laboratory test finding (navigational concept) 272 10^3/uL 150-450 [facility] (Silver Peterson MD) Laboratory test finding (navigational concept) 10.4 fL 7.4-10.4 [facility] (Silver Peterson MD) Laboratory test finding (navigational concept) 17.2 % 2 5.0-40.0 Below low normal [facility] (Silver Peterson MD) Laboratory test finding (navigational concept) 65.8 % 37.0-80.0 [facility] (Silver Peterson MD) Laboratory test finding (navigational concept) 3.2 % 0.0-7.0 [facility] (Silver Peterson MD) Laboratory test finding (navigational concept) 12.2 % 3.0-8.0 Above high normal [facility] (Silver Peterson MD) Laboratory test finding (navigational concept) 1.1 % 0.0-0.0 Above high normal [facility] (Silver Peterson MD) Laboratory test finding (navigational concept) 0.5 % 0.0-2.5 [facility] (Silver Peterson MD) Laboratory test finding (navigational concept) 0.0 % 0.0-0.0 [facility] (Silver Peterson MD) Laboratory test finding (navigational concept) 1.57 10^3/uL 0.60-3.40 [facility] (Silver Peterson MD) Laboratory test finding (navigational concept) 5.99 10^3/uL 2.00-6.90 [facility] (Silver Peterson MD) Laboratory test finding (navigational concept) 0.05 10^3/uL 0.00-0.20 [facility] (Silver Peterson MD) Laboratory test finding (navigational concept) 1.11 10^3/uL 0 .00-0.90 Above high normal [facility] (Silver Peterson MD) Laboratory test finding (navigational concept) 0.29 10^3/uL 0.00-0.70 [facility] (Silver Peterson MD) Laboratory test finding (navigational concept) 0.10 10^3/uL 0.00-0.10 [facility] (Silver Peterson MD) Laboratory test finding (navigational concept) 0.00 10^3/uL 0.00-0.00 [facility] (Silver Peterson MD) Laboratory test finding (navigational concept) 1 % 0-5 [facility] (Silver Peterson MD) Laboratory test finding (navigational concept) 71 % 37-80 [facility] (Silver Peterson MD) Laboratory test finding (navigational concept) Laboratory test result [facility] (Silver Peterson MD) Laboratory test finding (navigational concept) 14 % 3-8 Above high normal [facility] (Silver Peterson MD) Laboratory test finding (navigational concept) 11 % 25-40 Below low normal [facility] (Silver Peterson MD) Laboratory test finding (navigational concept) 1 % 0-7 [facility] (Silver Peterson MD) Laboratory test finding (navigational concept) 2 % 0-2 [facility] (Silver Peterson MD) Laboratory test finding (navigational concept) Laboratory test result [facility] (Silver Peterson MD) Laboratory test finding (navigational concept) Laboratory test r esult Abnormal (applies to non-numeric results) [facility] (Silver Peterson MD ) Laboratory test finding (navigational concept) Laboratory test r esult Abnormal (applies to non-numeric results) [facility] (Silver Peterson MD ) Laboratory test finding (navigational concept) Laboratory test r esult Abnormal (applies to non-numeric results) [facility] (Silver Peterson MD ) Laboratory test finding (navigational concept) Laboratory test r esult Abnormal (applies to non-numeric results) [facility] (Silver Peterson MD ) { SICKLE CELL (NORMAL: NONE SEEN ) Laboratory test finding (navigational concept) Laboratory test result [facility] (Silver Peterson MD) COMMENT: ID Date Data Source [id number] 09/12/2020 02:48:[address] [facility] Name Value Range Interpretation Code Description Data Ro rce(s) Supporting Document(s) COMPREHENSIVE METABOLIC PANEL [facility] COMPREHENSIVE METABOLIC PANEL Sodium [Moles/volume] in Serum or Plasma 144 mEq/L 134 - 153 [facility] Potassium [Moles/volume] in Serum or Plasma 5.2 mEq/L 3.6 - 5.0 H [facility] Chloride [Moles/volume] in Serum or Plasma 101 mEq/L 98 - 107 [facility] Carbon dioxide, total [Moles/volume] in Serum or Plasma 33 MEQ/L 22 - 30 H [facility] Glucose [Mass/volume] in Serum or Plasma 62 MG/DL 65 - 110 L [facility] BUN 62 MG/DL 7 - 21 H [facility] Creatinine [Mass/volume] in Serum or Plasma 3.0 MG/DL 0.7 - 1.5 H [facility] BUN/CREAT 21 8 - 27 [facility] Protein [Mass/volume] in Serum or Plasma 6.7 G/DL 6.3 - 8.2 [facility] Albumin [Mass/volume] in Serum or Plasma 4.0 G/DL 3.9 - 5.0 [facility] Globulin [Mass/volume] in Serum by calculation 2.7 GM/DL 2.4 - 3.2 [facility] A/G RATIO 1.5 0.8 - 2.0 [facility] Calcium [Mass/volume] in Serum or Plasma 9.5 MG/DL 8.4 - 10.2 [facility] Bilirubin.total [Mass/volume] in Serum or Plasma <0.7 MG/DL 0.2 - 1.3 [facility] Alkaline phosphatase [Enzymatic activity/volume] in Serum or Plasma 76 U/L 38 - 126 [facility] Aspartate aminotransferase [Enzymatic activity/volume] in Serum or Plasma 10 U/L 5 - 40 [facility] Alanine aminotransferase [Enzymatic activity/volume] in Seru m or Plasma 8 U/L 7 - 56 [facility] Anion gap 3 in Serum or Plasma 10.0 mmol/L 8.0 - 16.0 [facility]GE 75 [facility] 16 mL/min [facility] AFR AMER GFR >60 [facility] Male GFR In terprentation 20-49 yrs >60 mL/min Normal 50-59 yrs >56 mL/min Normal 60-69 yrs >49 mL/min Normal 70-79yrs >42 mL/min Normal 80 and above >35 mL/min Normal Female GFR Interpretation 20-39 yrs >60 mL/min Normal 40-49 yrs >58 mL/min Normal 50-59 yrs >51 mL/min Normal 60-69 yrs >45 mL/min Normal 70-79 yrs >39 mL/min Normal 80 and above >32 mL/min Normal ID Date Data Source [id number] 09/12/2020 02:08:00 PM EST [facility] Name Value Range Interpretation Code Description Data Ro rce(s) Supporting Document(s) CBC W/AUTOMATED DIFF [facility] COMPLETE BLOOD COUNT Leukocytes [#/volume] in Blood by Automated count 9.1 10^3/uL 4.2 - 1 1.0 [facility] Erythrocytes [#/volume] in Blood by Automated count 3.20 10^6/uL 4. 20 - 5.40 L [facility] Hemoglobin [Mass/volume] in Blood 9.9 g/dL 12.0 - 16.0 L [facility] Hematocrit [Volume Fraction] of Blood by Automated count 32.5 % 3 7.0 - 47.0 L [facility] Erythrocyte mean corpuscular volume [Entitic volume] b y Automated count 101.6 fL 81.0 - 101 H [facility] Erythrocyte mean corpuscular hemoglobin [Entitic mass] by Automated count 30.9 pg 27.0 - 34.0 [facility] Erythrocyte mean corpuscular hemoglobin concentration [Mass/volume] by Automated count 30.5 g/dL 31.0 - 36.0 L [facility] Erythrocyte distribution width [Ratio] by Automated count 17.1 % 11.5 - 14.5 H [facility] Platelets [#/volume] in Blood by Automated count 272 10^3/uL 150 - 45 0 [facility] Platelet mean volume [Entitic volume] in Blood by Automated count 10.4 fL 7.4 - 10.4 [facility] Neutrophils/100 leukocytes in Blood by Automated count 65.8 % 37. 0 - 80.0 [facility] Lymphocytes/100 leukocytes in Blood by Manual count 17.2 % 25.0 - 40.0 L [facility] Monocytes/100 leukocytes in Blood by Automated count 12.2 % 3.0 - 8.0 H [facility] Eosinophils/100 leukocytes in Blood by Automated count 3.2 % 0.0 - 7.0 [facility] 0.5 %IG 1.1 % 0.0 - 0.0 H [facility] %NRBC 0.0 % 0.0 - 0.0 [facility] Neutrophils [#/volume] in Blood by Automated count 5.99 10^3/uL 2.00 - 6.90 [facility] Lymphocytes [#/volume] in Blood by Automated count 1.57 10^3/uL 0.60 - 3.40 [facility] Monocytes [#/volume] in Blood by Automated count 1.11 10^3/uL 0.00 - 0.90 H [facility] Eosinophils [#/volume] in Blood by Automated count 0.29 10^3/uL 0.00 - 0.70 [facility] Basophils [#/volume] in Blood by Automated count 0.05 10^3/uL 0.00 - 0.20 [facility] #IG 0.10 10^3/uL 0.00 - 0.10 [facility] #NRBC 0.00 10^3/uL 0.00 - 0.00 [facility] MANUAL DIFF SEE BELOW [facility] Segmented neutrophils/100 leukocytes in Blood by Manual count 71 % 37 - 80 [facility] BAND 1 % 0 - 5 [facility] %LYMPH 11 % 25 - 40 L [facility] %MONO 14 % 3 - 8 H [facility] %EOS 1 % 0 - 7 [facility] 2 RBC MORPH SEE BELOW [facility] Anisocytosis [Presence] in Blood by Light microscopy 1+ FARRUKH L: NONE SEEN A [facility] Macrocytes [Presence] in Blood by Light microscopy 1+ NORMAL: NONE SEEN A [facility] Poikilocytosis [Presence] in Blood by Light microscopy 1+ NOR MAL: NONE SEEN A [facility] { SICKLE CELL (NORMAL: NONE SEEN ) Ovalocytes [Presence] in Blood by Light microscopy 1+ NORMAL: NONE SEEN A [facility] Platelet adequacy [Presence] in Blood by Light microscopy NORMAL NORMAL: NORMAL [facility] COMMENT: ID Date Data Source [id number] 08/09/2020 02:36:00 PM EST [facility] (Silver Peterson MD) Name Value Range Interpretation Code Description Data Ro rce(s) Supporting Document(s) Laboratory test finding (navigational concept) Laboratory test result [facility] (Silver Peterson MD) COMPLETE BLOOD COUNT Laboratory test finding (navigational concept) 11.4 10^3/uL 4 .2-11.0 Above high normal [facility] (Silver Peterson MD) Laboratory test finding (navigational concept) 3.80 10^6/uL 4 .20-5.40 Below low normal [facility] (Silver Peterson MD) Laboratory test finding (navigational concept) 11.5 g/dL 1 2.0-16.0 Below low normal [facility] (Silver Peterson MD) Laboratory test finding (navigational concept) 37.9 % 37.0-47.0 [facility] (Silver Peterson MD) Laboratory test finding (navigational concept) 99.7 fL 81.0-101 [facility] (Silver Peterson MD) Laboratory test finding (navigational concept) 30.3 pg 27.0-34.0 [facility] (Silver Peterson MD) Laboratory test finding (navigational concept) 30.3 g/dL 3 1.0-36.0 Below low normal [facility] (Silver Peterson MD) Laboratory test finding (navigational concept) 17.2 % 1 1.5-14.5 Above high normal [facility] (Silver Peterson MD) Laboratory test finding (navigational concept) 10.5 fL 7 .4-10.4 Above high normal [facility] (Silver Peterson MD) Laboratory test finding (navigational concept) 287 10^3/uL 150-450 [facility] (Silver Peterson MD) Laboratory test finding (navigational concept) 70.6 % 37.0-80.0 [facility] (Silver Peterson MD) Laboratory test finding (navigational concept) 14.1 % 2 5.0-40.0 Below low normal [facility] (Silver Peterson MD) Laboratory test finding (navigational concept) 9.8 % 3.0-8.0 Above high normal [facility] (Silver Peterson MD) Laboratory test finding (navigational concept) 1.5 % 0.0-7.0 [facility] (Silver Peterson MD) Laboratory test finding (navigational concept) 0.7 % 0.0-2.5 [facility] (Silver Peterson MD) Laboratory test finding (navigational concept) 3.3 % 0.0-0.0 Above high normal [facility] (Silver Peterson MD) Laboratory test finding (navigational concept) 0.0 % 0.0-0.0 [facility] (Silver Peterson MD) Laboratory test finding (navigational concept) 8.04 10^3/uL 2 .00-6.90 Above high normal [facility] (Silver Peterson MD) Laboratory test finding (navigational concept) 1.60 10^3/uL 0.60-3.40 [facility] (Silver Peterson MD) Laboratory test finding (navigational concept) 1.11 10^3/uL 0 .00-0.90 Above high normal [facility] (Silver Peterson MD) Laboratory test finding (navigational concept) 0.08 10^3/uL 0.00-0.20 [facility] (Silver Peterson MD) Laboratory test finding (navigational concept) 0.17 10^3/uL 0.00-0.70 [facility] (Silver Peterson MD) Laboratory test finding (navigational concept) 0.37 10^3/uL 0 .00-0.10 Above high normal [facility] (Silver Peterson MD) Laboratory test finding (navigational concept) 78 % 37-80 [facility] (Silver Peterson MD) Laboratory test finding (navigational concept) Laboratory test result [facility] (Silver Peterson MD) Laboratory test finding (navigational concept) 0.00 10^3/uL 0.00-0.00 [facility] (Silver Peterson MD) Laboratory test finding (navigational concept) 4 % 3-8 [facility] (Silver Peterson MD) Laboratory test finding (navigational concept) 16 % 25-40 Below low normal [facility] (Silver Peterson MD) Laboratory test finding (navigational concept) 2 % 0-7 [facility] (Silver Peterson MD) Laboratory test finding (navigational concept) Laboratory test result [facility] (Silver Peterson MD) Laboratory test finding (navigational concept) Laboratory test r esult Abnormal (applies to non-numeric results) [facility] (Silver Peterson MD ) { SICKLE CELL (NORMAL: NONE SEEN ) Laboratory test finding (navigational concept) Laboratory test result [facility] (Silver Peterson MD) COMMENT: _0 08/09/20.1609.TAD. ID Date Data Source [id number] 08/09/2020 02:36:00 PM EST [facility] (Silver Peterson MD) Name Value Range Interpretation Code Description Data Ro rce(s) Supporting Document(s) Laboratory test finding (navigational concept) Laboratory test result [facility] (Silver Peterson MD) COMPREHENSIVE METABOLIC PANEL Laboratory test finding (navigational concept) 142 meq/L 134-153 [facility] (Silver Peterson MD) Laboratory test finding (navigational concept) 5.1 meq/L 3 .6-5.0 Above high normal [facility] (Silver Peterson MD) Laboratory test finding (navigational concept) 32 meq/L 22-30 Above high normal [facility] (Silver Peterson MD) Laboratory test finding (navigational concept) 101 meq/L 98-107 [facility] (Silver Peterson MD) Laboratory test finding (navigational concept) 126 mg/dL 6 5-110 Above high normal [facility] (Silver Peterson MD) Laboratory test finding (navigational concept) 2.4 mg/dL 0 .7-1.5 Above high normal [facility] (Silver Peterson MD) Laboratory test finding (navigational concept) 57 mg/dL 7-21 Above high normal [facility] (Silver Peterson MD) Laboratory test finding (navigational concept) 24 8-27 [facility] (Silver Peterson MD) Laboratory test finding (navigational concept) 6.7 g/dL 6.3-8.2 [facility] (Silver Peterson MD) Laboratory test finding (navigational concept) 2.6 GM/DL 2.4-3.2 [facility] (Silver Peterson MD) Laboratory test finding (navigational concept) 4.1 g/dL 3.9-5.0 [facility] (Silver Peterson MD) Laboratory test finding (navigational concept) 1.6 0.8-2.0 [facility] (Silver Peterson MD) Laboratory test finding (navigational concept) 9.6 mg/dL 8.4-10.2 [facility] (Silver Peterson MD) Laboratory test finding (navigational concept) Laboratory test resu lt 0.2-1.3 [facility] (Silver Peterson MD) Laboratory test finding (navigational concept) 65 U/L 38-126 [facility] (Silver Peterson MD) Laboratory test finding (navigational concept) 8 U/L 5-40 [facility] (Silver Peterson MD) Laboratory test finding (navigational concept) 7 U/L 7-56 [facility] (Silver Peterson MD) Laboratory test finding (navigational concept) 75 yrs [facility] (Silver Peterson MD) Laboratory test finding (navigational concept) 21 mL/min [facility] (Silver Peterson MD) Laboratory test finding (navigational concept) 9.0 mmol/L 8.0-16.0 [facility] (Silver Peterson MD) Laboratory test finding (navigational concept) Laboratory test result [facility] (Silver Peterson MD) Male GFR Interprentation 20-49 yrs >60 mL/min Normal 50-59 yrs >56 mL/min Normal 60-69 yrs >49 mL/min Normal 70-79yrs >42 mL/min Normal 80 and above >35 mL/min Normal Female GFR Interpretation 20-39 yrs >60 mL/min Normal 40-49 yrs >58 mL/min Normal 50-59 yrs >51 mL/min Normal 60-69 yrs >45 mL/min Normal 70-79 yrs >39 mL/min Normal 80 and above >32 mL/min Normal ID Date Data Source [id number] 08/09/2020 02:36:00 PM EST [facility] (Silver Peterson MD) Name Value Range Interpretation Code Description Data Ro rce(s) Supporting Document(s) Natriuretic peptide.B prohormone N-Terminal [Mass/volu me] in Serum or Plasma 1329 pg/mL 0-125 Above high normal [facility] (Silver Peterson MD) Fibrin D-dimer [Presence] in Platelet poor plasma 3.96 ug/mL 0.27-0.50 Above high normal [facility] (Silver Peterson MD) Iron [Mass/volume] in Serum or Plasma 75 ug/dL 42-135 [facility] (Silver Peterson MD) Magnesium [Mass/volume] in Serum or Plasma 1.5 mg/dL 1.7-2.2 Belo w low normal [facility] (Silver Peterson MD) ID Date Data Source [id number] 08/09/2020 04:09:00 PM EST [facility] Name Value Range Interpretation Code Description Data Ro rce(s) Supporting Document(s) CBC W/AUTOMATED DIFF [facility] COMPLETE BLOOD COUNT Leukocytes [#/volume] in Blood by Automated count 11.4 10^3/uL 4.2 - 11.0 H [facility] Erythrocytes [#/volume] in Blood by Automated count 3.80 10^6/uL 4. 20 - 5.40 L [facility] Hemoglobin [Mass/volume] in Blood 11.5 g/dL 12.0 - 16.0 L [facility] Hematocrit [Volume Fraction] of Blood by Automated count 37.9 % 3 7.0 - 47.0 [facility] Erythrocyte mean corpuscular volume [Entitic volume] by Auto mated count 99.7 fL 81.0 - 101 [facility] Erythrocyte mean corpuscular hemoglobin [Entitic mass] by Automated count 30.3 pg 27.0 - 34.0 [facility] Erythrocyte mean corpuscular hemoglobin concentration [Mass/volume] by Automated count 30.3 g/dL 31.0 - 36.0 L [facility] Erythrocyte distribution width [Ratio] by Automated count 17.2 % 11.5 - 14.5 H [facility] Platelets [#/volume] in Blood by Automated count 287 10^3/uL 150 - 45 0 [facility] Platelet mean volume [Entitic volume] in Blood by Automated count 10.5 fL 7.4 - 10.4 H [facility] Neutrophils/100 leukocytes in Blood by Automated count 70.6 % 37. 0 - 80.0 [facility] Lymphocytes/100 leukocytes in Blood by Manual count 14.1 % 25.0 - 40.0 L [facility] Monocytes/100 leukocytes in Blood by Automated count 9.8 % 3.0 - 8.0 H [facility] Eosinophils/100 leukocytes in Blood by Automated count 1.5 % 0.0 - 7.0 [facility] Basophils/100 leukocytes in Blood by Automated count 0.7 % 0.0 - 2.5 [facility] %IG 3.3 % 0.0 - 0.0 H [facility] al %NRBC 0.0 % 0.0 - 0.0 [facility] al Neutrophils [#/volume] in Blood by Automated count 8.04 10^3/uL 2.00 - 6.90 H [facility] Lymphocytes [#/volume] in Blood by Automated count 1.60 10^3/uL 0.60 - 3.40 [facility] Monocytes [#/volume] in Blood by Automated count 1.11 10^3/uL 0.00 - 0.90 H [facility] Eosinophils [#/volume] in Blood by Automated count 0.17 10^3/uL 0.00 - 0.70 [facility] Basophils [#/volume] in Blood by Automated count 0.08 10^3/uL 0.00 - 0.20 [facility] #IG 0.37 10^3/uL 0.00 - 0.10 H [facility] #NRBC 0.00 10^3/uL 0.00 - 0.00 [facility] o[facility]ital MANUAL DIFF SEE BELOW [facility] ital Segmented neutrophils/100 leukocytes in Blood by Manual count 78 % 37 - 80 [facility] %LYMPH 16 % 25 - 40 L [facility] al %MONO 4 % 3 - 8 [facility] al %EOS 2 % 0 - 7 [facility] al RBC MORPH SEE BELOW [facility] al Anisocytosis [Presence] in Blood by Light microscopy 1+ FARRUKH L: NONE SEEN A [facility] { SICKLE CELL (NORMAL: NONE SEEN ) Platelet adequacy [Presence] in Blood by Light microscopy NORMAL NORMAL: NORMAL [facility] COMMENT: _0 08/09/20.1609.TAD. ID Date Data Source [id number] 08/09/2020 04:02:00 PM EST [facility] Name Value Range Interpretation Code Description Data Ro rce(s) Supporting Document(s) COMPREHENSIVE METABOLIC PANEL [facility] COMPREHENSIVE METABOLIC PANEL Sodium [Moles/volume] in Serum or Plasma 142 mEq/L 134 - 153 [facility] Potassium [Moles/volume] in Serum or Plasma 5.1 mEq/L 3.6 - 5.0 H [facility] Chloride [Moles/volume] in Serum or Plasma 101 mEq/L 98 - 107 [facility] Carbon dioxide, total [Moles/volume] in Serum or Plasma 32 MEQ/L 22 - 30 H [facility] Glucose [Mass/volume] in Serum or Plasma 126 MG/DL 65 - 110 [facility] BUN 57 MG/DL 7 - 21 H [facility] Creatinine [Mass/volume] in Serum or Plasma 2.4 MG/DL 0.7 - 1.5 H [facility] BUN/CREAT 24 8 - 27 [facility] Protein [Mass/volume] in Serum or Plasma 6.7 G/DL 6.3 - 8.2 [facility] Albumin [Mass/volume] in Serum or Plasma 4.1 G/DL 3.9 - 5.0 [facility] Globulin [Mass/volume] in Serum by calculation 2.6 GM/DL 2.4 - 3.2 [facility] A/G RATIO 1.6 0.8 - 2.0 [facility] al Calcium [Mass/volume] in Serum or Plasma 9.6 MG/DL 8.4 - 10.2 [facility] Bilirubin.total [Mass/volume] in Serum or Plasma <0.7 MG/DL 0.2 - 1.3 [facility] Alkaline phosphatase [Enzymatic activity/volume] in Serum or Plasma 65 U/L 38 - 126 [facility] Aspartate aminotransferase [Enzymatic activity/volume] in Se rum or Plasma 8 U/L 5 - 40 [facility] Alanine aminotransferase [Enzymatic activity/volume] in Seru m or Plasma 7 U/L 7 - 56 [facility] Anion gap 3 in Serum or Plasma 9.0 mmol/L 8.0 - 16.0 [facility] AGE 75 yrs [facility] NON-AA GFR 21 mL/min [facility] AFR AMER GFR >60 [facility] Male GFR In terprentation 20-49 yrs >60 mL/min Normal 50-59 yrs >56 mL/min Normal 60-69 yrs >49 mL/min Normal 70-79yrs >42 mL/min Normal 80 and above >35 mL/min Normal Female GFR Interpretation 20-39 yrs >60 mL/min Normal 40-49 yrs >58 mL/min Normal 50-59 yrs >51 mL/min Normal 60-69 yrs >45 mL/min Normal 70-79 yrs >39 mL/min Normal 80 and above >32 mL/min Normal ID Date Data Source [id number] 08/09/2020 04:02:[address] [facility] Name Value Range Interpretation Code Description Data Ro rce(s) Supporting Document(s) Magnesium [Mass/volume] in Serum or Plasma 1.5 MG/DL 1.7 - 2.2 L [facility] ID Date Data Source [id number] 08/09/2020 04:02:00 PM [facility] Value Range Interpretation Code Description Data Ro rce(s) Supporting Document(s) Iron [Mass/volume] in Serum or Plasma 75 UG/DL 42 - 135 [facility] ID Date Data Source [id number] 08/09/2020 04:02:00 PM EST [facility] Name Value Range Interpretation Code Description Data Ro rce(s) Supporting Document(s) BNP 1329 PG/ML 0 - 125 H [facility] booker ID Date Data Source [id number] 08/09/2020 03:48:00 PM EST [facility] Name Value Range Interpretation Code Description Data Ro rce(s) Supporting Document(s) Fibrin D-dimer FEU [Mass/volume] in Platelet poor plasma 3.96 ug /mL 0.27 - 0.50 H [facility] ID Date Data Source [id number] 06/12/2020 10:46:00 [place] [address] PROGRESS NOTENAME: TR Whitley ROOM#: 119-1DATE OF : 1945 MR#: [id number] DATE: 05/28/20 OF SERVICE: 06/12/2020SUBJECTIVE:This patient has known history of renal failure and congestive heart failure. She was given Lasix 80 mgIV for her congestive heart failure. She is feeling better. Dyspnea has improved. She still has someankle edema. ROS: Did not notice any dizziness, syncope, blurred vision, diplopia, headache. No chestpain. No chills or fever. No cough or hemoptysis. No bowel disturbance. Has ankle edema.OBJECTIVE:On exam, moderately built. Blood pressure was 130/60. Head is normal. Heart is regular sinus rhythm.Lungs clear. Abdomen soft. Extremities 1+ edema.LABORATORY DATA:Lab tests showed BUN 44, creatinine 2.7, potassium 4.4, hemoglobin 8.6.ASSESSMENT:The patient has the following issues:1. Renal failure, acute on chronic.2. Congestive heart failure, responding to Lasix.PLAN:Plan is to give half normal saline 300 cc today over four hours. I spoke with Dr. Mcclellan, thenephrologist. He will be able to see her this week for renal failure.DD: Silver Peterson MD, PC 06/12/20 09:37DT: SSR 06/12/20 10:45DS: Silver Peterson MD, PC 06/28/20 09:35 1 Name Value Range Interpretation Code Description Data Ro rce(s) Supporting Document(s) ID Date Data Source [id number] 06/15/2020 02:17:00 [place] [address] DISCHARGE SUMMARYNAME: TR Whitley ROOM#: 119-1DATE OF : 1945 MR#: [id number] PHYS: Silver Peterson MD, PC DATE: 05/28/20 DISCHARGED: 06/13/20HISTORY OF PRESENT ILLNESS:This patient is being discharged from swing bed. She is a 74-year-old white female with a history ofcongestive heart failure, renal failure. She received a Lasix drip when she came in and she diuresed well andfelt better, but she went into kidney failure. Serum creatinine is staying between 2 and 6. She has knownhistory of mitral valve repair, mitral valve ring and tricuspid ring because of regurgitation. [facility]. On examination, blood pressure was 130/80. Head is normal. Heart rate was 70.Lungs were clear. Abdomen is soft. 1+ edema. The initial impression was congestive heart failure, systolicejection fraction of 40-50%, status post open heart surgery with mitral valve repair and mitral valve ring,history of atrial fibrillation with permanent pacemaker, Watchman device. The patient was deconditioned andwe wanted to control her kidney failure and adjust the diuretics appropriate. PT/OT was done. She was dizzywhen she walked, but PT/OT did help. The patient was maintained on Neurontin 100 mg t.i.d. for backache,Amiodarone 200 mg daily for atrial fibrillation, metoprolol tartrate 100 mg b.i.d., Januvia 50 mg daily fordiabetes. Half normal saline at 1000 cc with 1 ampoule of bicarb was given at 60 cc/hr IV for elevated BUNand creatinine.LABORATORY & X-RAY DATA:BNP on 05/28 was 19,000. Hemoglobin was 9.2. White count was 12.2. Magnesium was 1.8. BUN was 65.Creatinine was 2.2. Potassium was 5.3. Iron level was 87. On 05/31, BUN was 52, creatinine was 2.2,potassium was 5.8. Potassium went up. Patient was given Kayexalate. Hemoglobin was 9.3. Iron was low at35 on 06/01. Hemoglobin was 8.6. Magnesium was 1.6 on 06/01. BUN was 44, creatinine was 1.9, potassiumwas 4.8. ABG showed pO2 of 87, pCO2 of 79. On 06/01, patient was very unstable. She was given high flowoxygen. The patient went into respiratory failure with hypercapnia. Repeat on 06/02 showed pCO2 was 68.2,pH was 7.39. On 06/01, BUN was 13, creatinine was 1.8, hemoglobin was 9.8. On 06/03, pH was 7.40, pO2 was73, pCO2 was 67. BUN was 46, creatinine was 2.1. BNP [place] [address]. On 06/04, sodium was 143, potassiumwas 4.3, BUN was 40, creatinine was 2.0. BUN was 44, creatinine was 2.0 on 06/05. On 06/06, hemoglobin was8.9, BUN was 47, creatinine was 2.2. On 06/07, hemoglobin was 8.8. Patient's sputum culture grew some gramnegative rods and cocci. On 06/09, hemoglobin was 9.1. On 06/10, BUN was 42, creatinine was 2.1. On 06/11,hemoglobin was 8.9, BUN was 34, creatinine was 1.9, potassium was 5.6. Potassium went up and patient wasgiven Kayexalate. On 06/12, potassium was 4.4, BUN was 44, creatinine was 2.7. At this point, the patient wasgiven half normal saline at 300 cc. On 06/13, hemoglobin was 8.8, potassium was 4.4, BUN was 41, creatininewas 1.9, which was better. CT scan of the chest did show mild pleural effusion. EKG showed regular sinusrhythm with paced rhythm.HOSPITAL COURSE:The patient was treated with half normal saline with 1 ampoule of bicarb initially. Patient was given at60 cc/hr to improve kidney function and Lasix 40 mg was given 2 days in a row. The moment thepatient had Lasix IV, she goes into renal failure and her creatinine goes up. On 05/31, she was only onhalf normal saline at 60 cc/hr for 300 cc. Venofer 200 mg IV was given for low hemoglobin. [address] [place] [address] DISCHARGE SUMMARYNAME: TR Whitley ROOM#: 119-1DATE OF : 1945 MR#: [id number] PHYS: Silver Peterson MD, PC DATE: 05/28/20 DISCHARGED: 06/13/20Kayexalate 15 grams was given for 4 doses for high serum potassium. The patient stayed in thehospital. She was given boluses of IV fluids and had Lasix. I spoke with Dr. Mcclellan, the nephrologistwho is going to see the patient next week for kidney dysfunction. On 05/31, patient was also given IVLasix 5 mg/hr IV drip for 2 days because she was in congestive heart failure. On 06/07 half saline at 60cc/hr was given and continued the following day. Primaxin was given for positive sputum of gramnegative bacilli and cocci. The patient gradually improved and got better. BUN and creatinine becamegradually stable. On 06/13, BUN was 41 and creatinine was 1.9. I spoke with Dr. Mcclellan fromnephrology and he will see the patient next week. She became more stable and she was not dyspneic.She had rehabilitated and she had reached maximum improvement and further improvement would notbe expected, however she was stable and she was not dyspneic when she walks. She was made to walkin the martin and there was no drop in the oxygen saturation. O2 saturation stayed stable around 95%.DISCHARGE MEDICATIONS:1. Amiodarone 200 mg daily2. Lipitor 20 mg daily3. Colace 100 mg b.i.d.4. Ferrous sulfate 325 mg daily5. Folic acid 1 mg daily6. Gabapentin 100 mg b.i.d.7. [place] was stopped.8. Protonix 40 mg daily9. Plavix was stopped.10. Venlafaxine 60 mg daily11. Ventolin inhaler p.r.n.12. Metformin was zfkkyju08. Januvia was added at 50 mg daily for high blood sugar 14. Lasix was given at 20 mg on alternate daysDISCHARGE FOLLOW-UP:She was much more stable on the 6th and she was discharged to follow in the office.FINAL DIAGNOSES:1. Marked deconditioning2. Congestive heart failure, systolic ejection fraction of 40-50%3. Acute on chronic renal failure4. Status post open heart surgery with mitral valve repair with mitral valve ring and tricuspid valve ring.5. History of atrial fibrillation [address] [place] [address] DISCHARGE SUMMARYNAME: TR Whitley ROOM#: 119-1DATE OF : 1945 MR#: [id number] PHYS: Silver Peterson MD, PC DATE: 05/28/20 DISCHARGED: 06/13/20 6. History of permanent pacemaker 7. History of Watchman device 8. History of bronchitis 9. Gram negative bacilli in the sputum and cocci in the sputum 10. History of diabetesDD: Silver Peterson MD, PC 06/13/20 09:28DT: DMZ 06/15/20 01:37DS: Silver Peterson MD, PC 06/28/20 09:35 3 Name Value Range Interpretation Code Description Data Ro rce(s) Supporting Document(s) ID Date Data Source [id number] 06/13/2020 12:18:00 [place] [address] PHONE: [phone] FAX: [phone] Name .................. : TR Whitley Acct Number.................. : [id number] ROOM. ................. : 119-1 MR Number ................... : [id number] Stay type ............. : I/P Discharge Date......... ... : Admit Date ......... : 05/28/20 Admit Phys .................... : REY BEVERLY Date of ....... : 1945 Family Phys ................... : CASPER Phone .................. : [phone] Age ................................ : 75 Film# .................. .:[id number] Sex ................................. : F Unsigned transcriptions are preliminary reports and do not represent a medical or legal document RENAL/URINARY BLADDER [id number] COMPLETE:06/11/20 12:38 BAW [id number] (PROCEDURE REASON :HYDRONEPHROSIS RENAL AND BLADDER ULTRASOUND: HISTORY: Concern for hydronephrosis. COMPARISON: CT of the abdomen from 08/25/18. FINDINGS: Ultrasound images of the kidney and bladder are obtained. Examination is slightly limited due to patient body habitus and inability for proper positioning and respiratory hold. The right kidney measures 10.0 cm in length and demonstrates normal parenchymal echogenicity. No hydronephrosis or shadowing calculus. Measured resistive index is 0.66. The bladder is moderately distended somewhat, but within normal limits. The left kidney measures 8.6 cm in length and demonstrate normal pare nchymal echogenicity. No hydronephrosis or shadowing calculus. IMPRESSION: Limited examination. No hydronephrosis or shadowing calculi. Electronically Reviewed and Signed By Lauryn Huerta MD , 06/13/20 12:18, TANISHA Transcribe Initials: KIRIT , Transcribe Date: 06/11/20 16:52, Dictation Date: Copy for: [address] [place] [address] REC DISCHARGED Page 1 of 1 Name Value Range Interpretation Code Description Data Ro rce(s) Supporting Document(s) ID Date Data Source [id number] 06/13/2020 07:09:00 AM EDT [facility] Name Value Range Interpretation Code Description Data Ro rce(s) Supporting Document(s) CBC W/AUTOMATED DIFF [facility] COMPLETE BLOOD COUNT Leukocytes [#/volume] in Blood by Automated count 6.4 10^3/uL 4.2 - 1 1.0 [facility] Erythrocytes [#/volume] in Blood by Automated count 2.92 10^6/uL 4. 20 - 5.40 L [facility] Hemoglobin [Mass/volume] in Blood 8.8 g/dL 12.0 - 16.0 L [facility] Hematocrit [Volume Fraction] of Blood by Automated count 29.9 % 3 7.0 - 47.0 L [facility] Erythrocyte mean corpuscular volume [Entitic volume] b y Automated count 102.4 fL 81.0 - 101 H [facility] Erythrocyte mean corpuscular hemoglobin [Entitic mass] by Automated count 30.1 pg 27.0 - 34.0 [facility] Erythrocyte mean corpuscular hemoglobin concentration [Mass/volume] by Automated count 29.4 g/dL 31.0 - 36.0 L [facility] Erythrocyte distribution width [Ratio] by Automated count 17.0 % 11.5 - 14.5 H [facility] Platelets [#/volume] in Blood by Automated count 227 10^3/uL 150 - 45 0 [facility] Platelet mean volume [Entitic volume] in Blood by Automated count 9.8 fL 7.4 - 10.4 [facility] Neutrophils/100 leukocytes in Blood by Automated count 64.1 % 37. 0 - 80.0 [facility] Lymphocytes/100 leukocytes in Blood by Manual count 11.7 % 25.0 - 40.0 L [facility] Monocytes/100 leukocytes in Blood by Automated count 14.5 % 3.0 - 8.0 H [facility] Eosinophils/100 leukocytes in Blood by Automated count 8.3 % 0.0 - 7.0 H [facility] Basophils/100 leukocytes in Blood by Automated count 0.5 % 0.0 - 2.5 [facility] %IG 0.9 % 0.0 - 0.0 H [facility] al %NRBC 0.0 % 0.0 - 0.0 [facility] al Neutrophils [#/volume] in Blood by Automated count 4.07 10^3/uL 2.00 - 6.90 [facility] Lymphocytes [#/volume] in Blood by Automated count 0.74 10^3/uL 0.60 - 3.40 [facility] Monocytes [#/volume] in Blood by Automated count 0.92 10^3/uL 0.00 - 0.90 H [facility] Eosinophils [#/volume] in Blood by Automated count 0.53 10^3/uL 0.00 - 0.70 [facility] Basophils [#/volume] in Blood by Automated count 0.03 10^3/uL 0.00 - 0.20 [facility] #IG 0.06 10^3/uL 0.00 - 0.10 [facility] #NRBC 0.00 10^3/uL 0.00 - 0.00 [facility] MANUAL DIFF NOT INDICATED [facility] RBC MORPH NOT INDICATED [facility] spital ID Date Data Source [id number] 06/13/2020 07:06:00 AM EDT [facility] Name Value Range Interpretation Code Description Data Ro rce(s) Supporting Document(s) COMPREHENSIVE METABOLIC PANEL [facility] COMPREHENSIVE METABOLIC PANEL Sodium [Moles/volume] in Serum or Plasma 144 mEq/L 134 - 153 [facility] Potassium [Moles/volume] in Serum or Plasma 4.5 mEq/L 3.6 - 5.0 [facility] Chloride [Moles/volume] in Serum or Plasma 104 mEq/L 98 - 107 [facility] Carbon dioxide, total [Moles/volume] in Serum or Plasma 35 MEQ/L 22 - 30 H [facility] Glucose [Mass/volume] in Serum or Plasma 98 MG/DL 65 - 110 [facility] BUN 41 MG/DL 7 - 21 H [facility] Creatinine [Mass/volume] in Serum or Plasma 1.9 MG/DL 0.7 - 1.5 H [facility] BUN/CREAT 22 8 - 27 [facility] Protein [Mass/volume] in Serum or Plasma 5.3 G/DL 6.3 - 8.2 L [facility] Albumin [Mass/volume] in Serum or Plasma 3.3 G/DL 3.9 - 5.0 L [facility] Globulin [Mass/volume] in Serum by calculation 2.0 GM/DL 2.4 - 3.2 L [facility] A/G RATIO 1.7 0.8 - 2.0 [facility] Calcium [Mass/volume] in Serum or Plasma 8.7 MG/DL 8.4 - 10.2 [facility] Bilirubin.total [Mass/volume] in Serum or Plasma <0.7 MG/DL 0.2 - 1.3 [facility] Alkaline phosphatase [Enzymatic activity/volume] in Serum or Plasma 94 U/L 38 - 126 [facility] Aspartate aminotransferase [Enzymatic activity/volume] in Serum or Plasma 14 U/L 5 - 40 [facility] Alanine aminotransferase [Enzymatic activity/volume] in Seru m or Plasma 25 U/L 7 - 56 [facility] Anion gap 3 in Serum or Plasma 5.0 mmol/L 8.0 - 16.0 L [facility] AGE 75 yrs [facility] NON-AA GFR 28 mL/min [facility] AFR AMER GFR >60 [facility] Male GFR In terprentation 20-49 yrs >60 mL/min Normal 50-59 yrs >56 mL/min Normal 60-69 yrs >49 mL/min Normal 70-79yrs >42 mL/min Normal 80 and above >35 mL/min Normal Female GFR Interpretation 20-39 yrs >60 mL/min Normal 40-49 yrs >58 mL/min Normal 50-59 yrs >51 mL/min Normal 60-69 yrs >45 mL/min Normal 70-79 yrs >39 mL/min Normal 80 and above >32 mL/min Normal ID Date Data Source [id number] 06/12/2020 01:24:00 PM EDT [facility] [address] [place] [address] PHONE: [phone] FAX: [phone] Name .................. : PATRICIADEVI Whitley Acct Number.................. : [id number] ROOM. ................. : 119-1 MR Number ................... : [id number] Stay type ............. : I/P Discharge Date......... ... : Admit Date ......... : 05/10 Admit Phys .................... : REY BEVERLY Date of ....... : 1945 Family Phys ................... : [id number] Phone .................. : [phone] Age ................................ : 75 Film# .................. .:[id number] Sex ................................. : F Unsigned transcriptions are preliminary reports and do not represent a medical or legal document CT THORAX W/O CONTRAST [id number] COMPLETE:06/09/20 09:55 SAIMA [id number] (REASON FOR CHEST: EFFUSION CT OF THE THORAX WITHOUT CONTRAST: INDICATION: Effusion. FINDINGS: The neck base demonstrate a left-sided cardiac conduction device. The thyroid is grossly normal. The lungs demonstrate moderate chronic interstitial changes and slight hyperinflation. There is scarring in the bilateral lung bases. Trace bilateral pleural effusions are noted, right slightly greater than left. The heart is at the upper limits of n ormal in size. No lymphadenopathy is appreciated. There is evidence of coronary artery calcifications and aortic arch calcifications. The visualized upper abdomen demonstrate no acute abnormality. There is no acute osseous abnormality. IMPRESSION: Tiny bilateral pleural effusions, slightly greater on the right. While performing the above CT examination, radiation dose reduction was accomplished utilizing automated exposure control, adjusting of the mA and kV based on the patient's body size and/or the use of imperative reconstructive techniques. CT dose: 764.7 mGycm Electronically Reviewed and Signed By Robert Gilliland M.D. , 06/12/20 13:24, [place] [address] [place] [address] [place] [address] PHONE: [phone] FAX: [phone] Name .................. : TR Whitley Acct Number.................. : [id number] ROOM. ................. : 119-1 MR Number ................... : [id number] Stay type ............. : I/P Discharge Date......... ... : Admit Date ......... : 05/28/20 Admit Phys .................... : REY MIR Date of ....... : 1945 Family Phys ................... [place] Phone .................. : [phone] Age ................................ : 75 Film# .................. .:[id number] Sex ................................. : F Unsigned transcriptions are preliminary reports and do not represent a medical or legal document CT THORAX W/O CONTRAST [id number] COMPLETE:06/09/20 09:55 SAIMA [id number] (REASON FOR CHEST: EFFUSION Transcribe Initials: DZ , Transcribe Date: 06/10/20 03:30, Dictation Date: Copy for: 002 RUST Copy for: 710 [employer] REC Page 2 of 2 Name Value Range Interpretation Code Description Data Ro rce(s) Supporting Document(s) ID Date Data Source [id number] 06/11/2020 11:46:00 [place] [address] PROGRESS NOTENAME: TR Whitley ROOM#: [id number] OF : 1945 MR#: [id number] DATE: 05/28/20 OF SERVICE: 06/11/20UBJECTIVE: This patient has congestive heart failure. She is ambulating better. She does have dyspneaand ankle edema. ROS: There are no chills or fever. No cough or hemoptysis. No bowel disturbance. She hasankle edema. She denies any orthopnea or paroxysmal nocturnal dyspnea.OBJECTIVE: On exam, moderately built. Blood pressure is 95/58. Head is normal. Heart rate is 70. Lungsare clear. Abdomen is soft. Legs with 2+ pitting edema.LABORATORY DATA: Sodium is 143, potassium is 4.6, BUN is 34, creatinine is 1.9. Hemoglobinis 8.9. Iron level is low, being 33.ASSESSMENT: Patient has the following issues:1. Acute on chronic renal failure2. Hyperkalemia3. Anemia4. Mild congestive heart failurePLAN:1. We will discontinue IV fluids. She has ankle edema, which could be fluid overload, yet her kidney functions are poor with creatinine at 1.9.2. High serum potassium at 5.6. Plan to give Kayexalate 15 gram p.o. twice a day today. Ultrasound of the kidneys and bladder is being done for evaluation of hydronephrosis. We will give Lasix 60 mg IV. IV fluids will be discontinued.3. Venofer IV 200 mg and Procrit 20,000 units subcutaneous will be given for anemia.DD: Silver Peterson MD, PC 06/11/20 11:32DT: RAMIRO 06/11/20 11:41DS: Silver Peterson MD, PC 06/12/20 07:51 1 Name Value Range Interpretation Code Description Data Ro rce(s) Supporting Document(s) ID Date Data Source [id number] 06/10/2020 11:17:00 [place] [address] PROGRESS NOTENAME: TR Whitley ROOM#: 119-1DATE OF : 1945 MR#: [id number] DATE: 05/28/20 OF SERVICE: 06/10/20UBJECTIVE: This patient's dyspnea and wheezing is better. The CT scan does show tiny bilateral pleuraleffusions, greater on the right. The dyspnea has improved. BUN and creatinine are still high. ROS: There areno chills or fever. No cough or hemoptysis. No bowel disturbance. No ankle edema.OBJECTIVE: On exam, moderately built. Blood pressure is 130/80. Head is normal. Heart is regular sinusrhythm. Lungs are clear. Abdomen is soft. Extremities: No pitting edema.LABORATORY DATA: CT scan does show right-sided mild effusion. Hemoglobin is 8.9. Potassiumis 5.1. BUN is 42. Creatinine is 2.1.ASSESSMENT: Patient has the following issues:1. Elevated BUN and creatinine, renal failure.2. Elevated serum potassium.PLAN: Plan is to:1. Continue IV half saline at 80 cc/hr IV to improve kidney function.2. Kayexalate will be given a 15 grams b.i.d. p.o. for elevated serum potassium.DD: Silver ePterson MD, PC 06/10/20 11:32DT: RAMIRO 06/10/20 23:14DS: Marbin Peterson MD, PC 06/12/20 07:51 1 Name Value Range Interpretation Code Description Data Ro rce(s) Supporting Document(s) ID Date Data Source [id number] 06/09/2020 01:00:00 [place] [address] PROGRESS NOTENAME: TR Whitley ROOM#: 119-1DATE OF : 1945 MR#: [id number] DATE: 05/28/20 OF SERVICE: 06/09/20UBJECTIVE: This patient's dyspnea and wheezing is better. She denies any chest pain. ROS: There are nochills or fever. No cough or hemoptysis. No bowel disturbance. No ankle edema.OBJECTIVE: On exam, moderately built. Blood pressure is 130/80. Head is normal. Heart rate is 70. Lungsclear. Abdomen is soft.LABORATORY DATA: Serum potassium is 5. BUN is 46. Creatinine is 1.7. Hemoglobin is 9.1.ASSESSMENT/PLAN: Patient has the following issues: Congestive heart failure, renal failure,responding to Lasix. Will give 80 of Lasix IV today for mild congestive heart failure. We will also geta CT scan of the lungs to be sure there is no pleural effusion. We will give her half normal saline at 60cc/hr to improve kidney function. Serum creatinine is already coming down. PT/OT is being done.DD: Silver Peterson MD, PC 06/09/20 09:16DT: RAMIRO 06/09/20 12:53DS: Silver Peterson MD, PC 06/12/20 07:51 1 Name Value Range Interpretation Code Description Data Ro rce(s) Supporting Document(s) ID Date Data Source [id number] 06/08/2020 10:48:00 [place] [address] PROGRESS NOTENAME: TR Whitley ROOM#: 119-1DATE OF : 1945 MR#: [id number] DATE: 05/28/20 OF SERVICE: 06/08/2020SUBJECTIVE:This 75-year-old white female presented with renal failure. She is on IV fluids. Congestive heartfailure is better, dyspnea is better. ROS: No dizziness, syncope, blurred vision, diplopia, headache. Noorthopnea or paroxysmal nocturnal dyspnea. No chills or fever. No cough or hemoptysis. No boweldisturbance. No ankle edema.OBJECTIVE:On exam, moderately built. Blood pressure was 140/80. Head is normal. Heart regular sinus rhythm.Lungs clear. Abdomen soft.LABORATORY DATA:Lab tests showed hemoglobin of 9.0, potassium 5.1, BUN 50, creatinine 2.0.ASSESSMENT: Patient has the following issues:1. Acute on chronic renal failure.2. Hyperkalemia.3. Anemia.PLAN:Plan is to continue half normal saline at 60 cc/hour to improve kidney function. Patient is also gettingIV Primaxin, which will be stopped. Kayexalate will be given for high serum potassium.DD: Silver Peterson MD, PC 06/08/20 09:20DT: SSR 06/08/20 10:48DS: Silver Peterson MD, PC 06/12/20 07:51 1 Name Value Range Interpretation Code Description Data Ro rce(s) Supporting Document(s) ID Date Data Source [id number] 06/07/2020 10:47:00 [place] [address] PROGRESS NOTENAME: TR Whitley ROOM#: 119-1DATE OF : 1945 MR#: [id number] DATE: 05/28/20 OF SERVICE: 06/07/2020SUBJECTIVE:Patient feels better. Dyspnea and wheezing improved. Patient going into renal failure. ROS: Nodizziness, syncope, blurred vision, diplopia, headache. No chest pain. No chills or fever. No cough orhemoptysis. No bowel disturbance. No ankle edema.OBJECTIVE:On exam, moderately built. Blood pressure was 130/80. Head is normal. Heart regular sinus rhythm.Lungs clear. Abdomen soft.LABORATORY DATA:Lab tests showed potassium 4.7, BUN 53, creatinine 2.3, BNP 2536.ASSESSMENT:Patient has the following issues:1. Anemia, hemoglobin 8.8.2. Congestive heart failure.3. Renal failure.PLAN:The plan is to give half normal saline 60 cc/hour IV to improve kidney function.DD: Silver Peterson MD, PC 06/07/20 09:25DT: SSR 06/07/20 10:47DS: Silver Peterson MD, PC 06/12/20 07:51 1 Name Value Range Interpretation Code Description Data Ro rce(s) Supporting Document(s) ID Date Data Source [id number] 06/06/2020 01:48:00 [place] [address] PROGRESS NOTENAME: TR Whitley ROOM#: 119-1DATE OF : 1945 MR#: [id number] DATE: 05/28/20 OF SERVICE: 06/06/2020SUBJECTIVE:This patient is in a SWING bed for renal failure and congestive heart failure. Dyspnea and wheezingimproved, and she feels better. ROS: No syncope. Dizziness is better. No chills or fever. No cough orhemoptysis. No bowel disturbance. Has ankle edema.OBJECTIVE:On exam, moderately built. Blood pressure was 130/80. Head is normal. Heart regular sinus rhythm.Lungs clear. Abdomen soft. Has 1+ edema in leg.LABORATORY DATA:Lab tests showed BUN 47, creatinine 2.2, BNP 4177, hemoglobin 8.9.ASSESSMENT: Patient has the following issues:1. History of anemia.2. History of congestive heart failure.3. History of renal failure.PLAN:The plan is to continue Lasix 5 mg/hour drip for congestive heart failure. Primaxin 500 mg 12 hourlyfor pneumonitis. Sputum culture is being obtained. Will repeat CPK daily to evaluate kidney functions.Patient has output of almost 2500 over the past 24 hours, she lost 2 pounds of weight. Prognosis isguarded.DD: Silver Peterson MD, PC 06/06/20 09:54DT: [facility] 06/06/20 13:48DS: Silver Peterson MD, PC 06/12/20 07:51 1 Name Value Range Interpretation Code Description Data Ro rce(s) Supporting Document(s) ID Date Data Source [id number] 06/05/2020 11:50:00 [place] [address] PROGRESS NOTENAME: TR Whitley ROOM#: 119-1DATE OF : 1945 MR#: [id number] DATE: 05/28/20 OF SERVICE: 06/05/2020SUBJECTIVE:Patient complains of dizziness when she walks. Is slightly dyspneic also. ROS: There is no syncope,diplopia, headache. No chest pain. No chills or fever. No cough or hemoptysis. No bowel disturbance.No ankle edema. She is dizzy with exertion.OBJECTIVE:On exam, moderately built. Blood pressure was 131/80. Head is normal. Heart rate 70. Lungsdiminished at the bases. Extremities normal, no pitting edema.LABORATORY DATA:Lab tests showed hemoglobin 8.6, sodium 142, potassium 4.7, BUN 44, creatinine 2.0.ASSESSMENT: Patient has the following issues:1. Congestive heart failure.2. Renal failure.3. Dizziness.PLAN:The plan is to give low dose Lasix drip 5 mg/hour IV for diuresing her. Also, CAT scan of the chest emily done to rule out pleural effusion.DD: Silver Peterson MD, 06/05/20 09:10DT: SSR 06/05/20 11:50DS: Silver Peterson MD, PC 06/12/20 07:51 1 Name Value Range Interpretation Code [facility] ID Date Data Source [id number] 06/12/2020 06:55:00 AM EDT [facility] Name Value Range Interpretation Code Description Data [facility](s) Supporting Document(s) CBC W/AUTOMATED DIFF [facility] COMPLETE BLOOD COUNT Leukocytes [#/volume] in Blood by Automated count 6.3 10^3/uL 4.2 - 1 1.0 [facility] Erythrocytes [#/volume] in Blood by Automated count 2.81 10^6/uL 4. 20 - 5.40 L [facility] Hemoglobin [Mass/volume] in Blood 8.6 g/dL 12.0 - 16.0 L [facility] Hematocrit [Volume Fraction] of Blood by Automated count 28.9 % 3 7.0 - 47.0 L [facility] Erythrocyte mean corpuscular volume [Entitic volume] b y Automated count 102.8 fL 81.0 - 101 H [facility] Erythrocyte mean corpuscular hemoglobin [Entitic mass] by Automated count 30.6 pg 27.0 - 34.0 [facility] Erythrocyte mean corpuscular hemoglobin concentration [Mass/volume] by Automated count 29.8 g/dL 31.0 - 36.0 L [facility] Erythrocyte distribution width [Ratio] by Automated count 17.0 % 11.5 - 14.5 H [facility] Platelets [#/volume] in Blood by Automated count 203 10^3/uL 150 - 45 0 [facility] Platelet mean volume [Entitic volume] in Blood by Automated count 10.2 fL 7.4 - 10.4 [facility] Neutrophils/100 leukocytes in Blood by Automated count 66.5 % 37. 0 - 80.0 [facility] Lymphocytes/100 leukocytes in Blood by Manual count 11.4 % 25.0 - 40.0 L [facility] Monocytes/100 leukocytes in Blood by Automated count 13.4 % 3.0 - 8.0 H [facility] Eosinophils/100 leukocytes in Blood by Automated count 7.6 % 0.0 - 7.0 H [facility] 0.3 %IG 0.8 % 0.0 - 0.0 H [facility] al %NRBC 0.0 % 0.0 - 0.0 [facility] al Neutrophils [#/volume] in Blood by Automated count 4.18 10^3/uL 2.00 - 6.90 [facility] Lymphocytes [#/volume] in Blood by Automated count 0.72 10^3/uL 0.60 - 3.40 [facility] Monocytes [#/volume] in Blood by Automated count 0.84 10^3/uL 0.00 - 0.90 [facility] Eosinophils [#/volume] in Blood by Automated count 0.48 10^3/uL 0.00 - 0.70 [facility] Basophils [#/volume] in Blood by Automated count 0.02 10^3/uL 0.00 - 0.20 [facility] #IG 0.05 10^3/uL 0.00 - 0.10 [facility]ital #NRBC 0.00 10^3/uL 0.00 - 0.00 [facility] MANUAL DIFF SEE BELOW [facility] ital Segmented neutrophils/100 leukocytes in Blood by Manual count 73 % 37 - 80 [facility] BAND 0 % 0 - 5 [facility] %LYMPH 13 % 25 - 40 [facility] %MONO 6 % 3 - 8 [facility] %EOS 8 % 0 - 7 [facility] 0 RBC MORPH NOT INDICATED [facility] ID Date Data Source [id number] 06/12/2020 06:54:00 AM EDT [facility] Name Value Range Interpretation Code Description Data Ro rce(s) Supporting Document(s) COMPREHENSIVE METABOLIC PANEL [facility] COMPREHENSIVE METABOLIC PANEL Sodium [Moles/volume] in Serum or Plasma 143 mEq/L 134 - 153 [facility] Potassium [Moles/volume] in Serum or Plasma 4.4 mEq/L 3.6 - 5.0 [facility] Chloride [Moles/volume] in Serum or Plasma 101 mEq/L 98 - 107 [facility] Carbon dioxide, total [Moles/volume] in Serum or Plasma 36 MEQ/L 22 - 30 H [facility] Glucose [Mass/volume] in Serum or Plasma 115 MG/DL 65 - 110 H [facility] BUN 44 MG/DL 7 - 21 H [facility] al Creatinine [Mass/volume] in Serum or Plasma 2.7 MG/DL 0.7 - 1.5 H [facility] BUN/CREAT 16 8 - 27 [facility] al Protein [Mass/volume] in Serum or Plasma 5.6 G/DL 6.3 - 8.2 L [facility] Albumin [Mass/volume] in Serum or Plasma 3.4 G/DL 3.9 - 5.0 L [facility] Globulin [Mass/volume] in Serum by calculation 2.2 GM/DL 2.4 - 3.2 L [facility] A/G RATIO 1.5 0.8 - 2.0 [facility] al Calcium [Mass/volume] in Serum or Plasma 8.2 MG/DL 8.4 - 10.2 L [facility] Bilirubin.total [Mass/volume] in Serum or Plasma <0.7 MG/DL 0.2 - 1.3 [facility] Alkaline phosphatase [Enzymatic activity/volume] in Serum or Plasma 96 U/L 38 - 126 [facility] Aspartate aminotransferase [Enzymatic activity/volume] in Serum or Plasma 19 U/L 5 - 40 [facility] Alanine aminotransferase [Enzymatic activity/volume] in Seru m or Plasma 29 U/L 7 - 56 [facility] Anion gap 3 in Serum or Plasma 6.0 mmol/L 8.0 - 16.0 L [facility] AGE 75 yrs [facility] NON-AA GFR 18 mL/min [facility]er AFR AMER GFR >60 [facility] Male GFR In terprentation 20-49 yrs >60 mL/min Normal 50-59 yrs >56 mL/min Normal 60-69 yrs >49 mL/min Normal 70-79yrs >42 mL/min Normal 80 and above >35 mL/min Normal Female GFR Interpretation 20-39 yrs >60 mL/min Normal 40-49 yrs >58 mL/min Normal 50-59 yrs >51 mL/min Normal 60-69 yrs >45 mL/min Normal 70-79 yrs >39 mL/min Normal 80 and above >32 mL/min Normal ID Date Data Source [id number] 06/04/2020 11:02:00 [place] [address] PROGRESS NOTENAME: TR Whitley ROOM#: 119-1DATE OF : 1945 MR#: [id number] DATE: 05/28/20 OF SERVICE: 06/04/20UBJECTIVE: She was admitted with acute on chronic renal failure, CHF. She is breathing much better. Herchest x-ray shows improvement. The effusions are smaller. She was feeling slightly lightheaded today. Herlegs felt "a little rubbery". We held her Lasix as she is probably at or close to dry weight. Her BUN andcreatinine are up at 43/2.0. BNP has improved. On the , it was 12,799 and is currently down to 2,971. Willhold Lasix today and probably start p.o. tomorrow. She had a slight bloody nose yesterday, probably to dowith dry nostrils. She coughed up thick sputum that had a slight blood streak to it. Will stop her Lovenox andput on TEDS hose and encourage ambulation. She has been up walking today and yesterday. No complaints ofchest pain. Feels her breathing is much improved.OBJECTIVE: Blood pressure is 150/79. Pulse 95. Respirations 18. O2 saturation on 3 liters is 93%. Patient isalert and oriented x3. Pharynx, tongue, and gums pink and moist. Tongue is midline. Neck is supple withoutlymphadenopathy. No thyromegaly or goiter. Carotids 2+ without bruit. Chest has a few scattered rhonchi thatclear with cough. Heart is regular. Abdomen is benign. Bowel sounds positive. /rectal: Not done.Extremities: Trace bilateral lower extremity edema.ASSESSMENT/PLAN:1. CHF, improved.2. Acute on chronic renal failure, impro ving.3. Nonfasting blood sugar is 180.4. CO2 is much improved to 38.5. Continue other medications without change.DD: ALEXANDR Pulliam 06/04/20 15:47DT: RAMIRO 06/04/20 22:54DS: ALEXANDR Pulliam 06/11/20 15:33 1 Name Value Range Interpretation Code Description Data Ro rce(s) Supporting Document(s) ID Date Data Source [id number] 06/03/2020 11:06:00 [place] [address] PROGRESS NOTENAME: TR Whitley ROOM#: 119-1DATE OF : 1945 MR#: [id number] DATE: 05/28/20 OF SERVICE: 06/03/20UBJECTIVE: She was admitted with CHF, acute renal failure. She has history of severe COPD.LABORATORY STUDIES: Sodium is 147, potassium 4.1, chloride 99, CO2 is 43, blood sugar was 107,BUN 46, creatinine was 2.1. Yesterday BUN and creatinine was 38/1.8. Will stop her IV Lasix. White count isnormal. H&H is 8.7/30.2, up slightly from 8.6/30.1. Platelets are normal at 193. O2 saturation on 3 liters isrunning 96-100%. Patient remains in a paced rhythm. Arterial blood gas is improved. PH is 7.40, pCO2 is 67,down slightly from yesterday. PO2 is 78. O2 saturation is 95%. Total CO2 is 42.9. Patient states her breathingis improving to her. She continues to utilize her Acapella as well as her DuoNeb treatments. Will follow up onsputum C&S. Chest x-ray from the shows stable mild CHF. Stable small bilateral pleural effusions. Willrecheck chest x-ray in the AM. Patient state she is feeling stronger. She did ambulate in the martin with herwalker and one assist.OBJECTIVE: Blood pressure is 146/83. Pulse is 80. Respirations 20. O2 saturation is 100% on 3 liters.Patient is alert and oriented x3. Pharynx, tongue, and gums pink and moist. Tongue is midline. Neck is supplewithout lymphadenopathy. No thyromegaly or goiter. Jugular venous pressure is at clavicle at 60 degrees.Chest has decreased breath sounds. No wheeze or retraction. Heart is regular. Abdomen is benign. Bowelsounds positive. /rectal: Not done. Extremities: Trace bilateral lower extremity edema. Peripheral pulsesequal and palpable bilaterally.ASSESSMENT/PLAN:1. CHF, improving.2. Renal failure. BUN and creatinine up. Chest x-ray showing improvement. Will hold Lasix today. Recheck in the AM.3. Continue other medications without change.DD: ALEXANDR Pulliam 06/03/20 15:26DT: RAMIRO 06/03/20 22:56DS: ALEXANDR Pulliam 06/11/20 15:33 1 Name Value Range Interpretation Code Description Data Ro rce(s) Supporting Document(s) ID Date Data Source [id number] 06/11/2020 08:01:00 AM T [facility] Name Value Range Interpretation Code Description Data Ro rce(s) Supporting Document(s) CBC W/AUTOMATED DIFF [facility] COMPLETE BLOOD COUNT Leukocytes [#/volume] in Blood by Automated count 5.6 10^3/uL 4.2 - 1 1.0 [facility] Erythrocytes [#/volume] in Blood by Automated count 2.90 10^6/uL 4. 20 - 5.40 L [facility] Hemoglobin [Mass/volume] in Blood 8.9 g/dL 12.0 - 16.0 L [facility] Hematocrit [Volume Fraction] of Blood by Automated count 30.2 % 3 7.0 - 47.0 L [facility] Erythrocyte mean corpuscular volume [Entitic volume] b y Automated count 104.1 fL 81.0 - 101 H [facility] Erythrocyte mean corpuscular hemoglobin [Entitic mass] by Automated count 30.7 pg 27.0 - 34.0 [facility] Erythrocyte mean corpuscular hemoglobin concentration [Mass/volume] by Automated count 29.5 g/dL 31.0 - 36.0 L [facility] Erythrocyte distribution width [Ratio] by Automated count 17.3 % 11.5 - 14.5 H [facility] Platelets [#/volume] in Blood by Automated count 198 10^3/uL 150 - 45 0 [facility] Platelet mean volume [Entitic volume] in Blood by Automated count 10.3 fL 7.4 - 10.4 [facility] Neutrophils/100 leukocytes in Blood by Automated count 61.0 % 37. 0 - 80.0 [facility] Lymphocytes/100 leukocytes in Blood by Manual count 13.5 % 25.0 - 40.0 L [facility] Monocytes/100 leukocytes in Blood by Automated count 16.3 % 3.0 - 8.0 H [facility] Eosinophils/100 leukocytes in Blood by Automated count 7.6 % 0.0 - 7.0 H [facility] Basophils/100 leukocytes in Blood by Automated count 0.7 % 0.0 - 2.5 [facility] %IG 0.9 % 0.0 - 0.0 [facility] %NRBC 0.0 % 0.0 - 0.0 [facility] al Neutrophils [#/volume] in Blood by Automated count 3.43 10^3/uL 2.00 - 6.90 [facility] Lymphocytes [#/volume] in Blood by Automated count 0.76 10^3/uL 0.60 - 3.40 [facility] Monocytes [#/volume] in Blood by Automated count 0.92 10^3/uL 0.00 - 0.90 H [facility] Eosinophils [#/volume] in Blood by Automated count 0.43 10^3/uL 0.00 - 0.70 [facility] Basophils [#/volume] in Blood by Automated count 0.04 10^3/uL 0.00 - 0.20 [facility] #IG 0.05 10^3/uL 0.00 - 0.10 [facility] #NRBC 0.00 10^3/uL 0.00 - 0.00 [facility]spital MANUAL DIFF NOT INDICATED [facility] RBC MORPH NOT INDICATED [facility] spital ID Date Data Source [id number] 06/11/2020 08:00:00 AM EDT [facility] Name Value Range Interpretation Code Description Data Ro rce(s) Supporting Document(s) COMPREHENSIVE METABOLIC PANEL [facility] COMPREHENSIVE METABOLIC PANEL Sodium [Moles/volume] in Serum or Plasma 143 mEq/L 134 - 153 [facility] Potassium [Moles/volume] in Serum or Plasma 5.6 mEq/L 3.6 - 5.0 H [facility] Chloride [Moles/volume] in Serum or Plasma 104 mEq/L 98 - 107 [facility] Carbon dioxide, total [Moles/volume] in Serum or Plasma 34 MEQ/L 22 - 30 H [facility] Glucose [Mass/volume] in Serum or Plasma 90 MG/DL 65 - 110 [facility] BUN 34 MG/DL 7 - 21 H [facility] Creatinine [Mass/volume] in Serum or Plasma 1.9 MG/DL 0.7 - 1.5 H [facility] BUN/CREAT 18 8 - 27 [facility] Protein [Mass/volume] in Serum or Plasma 5.5 G/DL 6.3 - 8.2 L [facility] Albumin [Mass/volume] in Serum or Plasma 3.4 G/DL 3.9 - 5.0 L [facility] Globulin [Mass/volume] in Serum by calculation 2.1 GM/DL 2.4 - 3.2 L [facility] A/G RATIO 1.6 0.8 - 2.0 [facility] Calcium [Mass/volume] in Serum or Plasma 8.1 MG/DL 8.4 - 10.2 L [facility] Bilirubin.total [Mass/volume] in Serum or Plasma <0.7 MG/DL 0.2 - 1.3 [facility] Alkaline phosphatase [Enzymatic activity/volume] in Serum or Plasma 76 U/L 38 - 126 [facility] Aspartate aminotransferase [Enzymatic activity/volume] in Serum or Plasma 12 U/L 5 - 40 [facility] Alanine aminotransferase [Enzymatic activity/volume] in Seru m or Plasma 11 U/L 7 - 56 [facility] Anion gap 3 in Serum or Plasma 5.0 mmol/L 8.0 - 16.0 L [facility] AGE 75 yrs [facility] NON-AA GFR 28 mL/min [facility] AFR AMER GFR >60 [facility] Male GFR In terprentation 20-49 yrs >60 mL/min Normal 50-59 yrs >56 mL/min Normal 60-69 yrs >49 mL/min Normal 70-79yrs >42 mL/min Normal 80 and above >35 mL/min Normal Female GFR Interpretation 20-39 yrs >60 mL/min Normal 40-49 yrs >58 mL/min Normal 50-59 yrs >51 mL/min Normal 60-69 yrs >45 mL/min Normal 70-79 yrs >39 mL/min Normal 80 and above >32 mL/min Normal ID Date Data Source [id number] 06/11/2020 07:52:00 AM EDT [facility] Name Value Range Interpretation Code Description Data Ro rce(s) Supporting Document(s) Cobalamin (Vitamin B12) [Mass/volume] in Serum or Plasma 759 PG/ML 232 - 1245 [facility] ID Date Data Source [id number] 06/11/2020 07:40:00 AM EDT [facility] Name Value Range Interpretation Code Description Data Ro rce(s) Supporting Document(s) Magnesium [Mass/volume] in Serum or Plasma 1.9 MG/DL 1.7 - 2.2 [facility] ID Date Data Source [id number] 06/10/2020 12:33:00 PM EDT [facility] Name Value Range Interpretation Code Description Data Ro rce(s) Supporting Document(s) Iron [Mass/volume] in Serum or Plasma 33 UG/DL 42 - 135 L [facility] ID Date Data Source [id number] 06/10/2020 08:07:00 AM EDT [facility] Name Value Range Interpretation Code Description Data Ro rce(s) Supporting Document(s) CBC W/AUTOMATED DIFF [facility] COMPLETE BLOOD COUNT Leukocytes [#/volume] in Blood by Automated count 6.0 10^3/uL 4.2 - 1 1.0 [facility] Erythrocytes [#/volume] in Blood by Automated count 2.91 10^6/uL 4. 20 - 5.40 L [facility] Hemoglobin [Mass/volume] in Blood 8.9 g/dL 12.0 - 16.0 L [facility] Hematocrit [Volume Fraction] of Blood by Automated count 30.2 % 3 7.0 - 47.0 L [facility] Erythrocyte mean corpuscular volume [Entitic volume] b y Automated count 103.8 fL 81.0 - 101 H [facility] Erythrocyte mean corpuscular hemoglobin [Entitic mass] by Automated count 30.6 pg 27.0 - 34.0 [facility] Erythrocyte mean corpuscular hemoglobin concentration [Mass/volume] by Automated count 29.5 g/dL 31.0 - 36.0 L [facility] Erythrocyte distribution width [Ratio] by Automated count 17.5 % 11.5 - 14.5 H [facility] Platelets [#/volume] in Blood by Automated count 185 10^3/uL 150 - 45 0 [facility] Platelet mean volume [Entitic volume] in Blood by Automated count 10.2 fL 7.4 - 10.4 [facility] Neutrophils/100 leukocytes in Blood by Automated count 62.8 % 37. 0 - 80.0 [facility] Lymphocytes/100 leukocytes in Blood by Manual count 13.7 % 25.0 - 40.0 L [facility] Monocytes/100 leukocytes in Blood by Automated count 15.2 % 3.0 - 8.0 H [facility] Eosinophils/100 leukocytes in Blood by Automated count 6.8 % 0.0 - 7.0 [facility] Basophils/100 leukocytes in Blood by Automated count 0.5 % 0.0 - 2.5 [facility] %IG 1.0 % 0.0 - 0.0 H [facility] %NRBC 0.0 % 0.0 - 0.0 [facility] al Neutrophils [#/volume] in Blood by Automated count 3.77 10^3/uL 2.00 - 6.90 [facility] Lymphocytes [#/volume] in Blood by Automated count 0.82 10^3/uL 0.60 - 3.40 [facility] Monocytes [#/volume] in Blood by Automated count 0.91 10^3/uL 0.00 - 0.90 H [facility] Eosinophils [#/volume] in Blood by Automated count 0.41 10^3/uL 0.00 - 0.70 [facility] Basophils [#/volume] in Blood by Automated count 0.03 10^3/uL 0.00 - 0.20 [facility] #IG 0.06 10^3/uL 0.00 - 0.10 [facility] #NRBC 0.00 10^3/uL 0.00 - 0.00 [facility] MANUAL DIFF NOT INDICATED [facility] RBC MORPH NOT INDICATED [facility] ID Date Data Source [id number] 06/10/2020 07:46:00 AM EDT [facility] Name Value Range Interpretation Code Description Data Ro rce(s) Supporting Document(s) COMPREHENSIVE METABOLIC PANEL [facility] COMPREHENSIVE METABOLIC PANEL Sodium [Moles/volume] in Serum or Plasma 144 mEq/L 134 - 153 [facility] Potassium [Moles/volume] in Serum or Plasma 5.1 mEq/L 3.6 - 5.0 H [facility] Chloride [Moles/volume] in Serum or Plasma 102 mEq/L 98 - 107 [facility] Carbon dioxide, total [Moles/volume] in Serum or Plasma 36 MEQ/L 22 - 30 H [facility] Glucose [Mass/volume] in Serum or Plasma 102 MG/DL 65 - 110 [facility] BUN 42 MG/DL 7 - 21 H [facility] Creatinine [Mass/volume] in Serum or Plasma 2.1 MG/DL 0.7 - 1.5 H [facility] BUN/CREAT 20 8 - 27 [facility] Protein [Mass/volume] in Serum or Plasma 5.4 G/DL 6.3 - 8.2 L [facility] Albumin [Mass/volume] in Serum or Plasma 3.4 G/DL 3.9 - 5.0 L [facility] Globulin [Mass/volume] in Serum by calculation 2.0 GM/DL 2.4 - 3.2 L [facility] A/G RATIO 1.7 0.8 - 2.0 [facility] Calcium [Mass/volume] in Serum or Plasma 8.3 MG/DL 8.4 - 10.2 L [facility] Bilirubin.total [Mass/volume] in Serum or Plasma <0.7 MG/DL 0.2 - 1.3 [facility] Alkaline phosphatase [Enzymatic activity/volume] in Serum or Plasma 72 U/L 38 - 126 [facility] Aspartate aminotransferase [Enzymatic activity/volume] in Serum or Plasma 10 U/L 5 - 40 [facility] Alanine aminotransferase [Enzymatic activity/volume] in Seru m or Plasma 9 U/L 7 - 56 [facility] Anion gap 3 in Serum or Plasma 6.0 mmol/L 8.0 - 16.0 L [facility] AGE 75 yrs [facility] al NON-AA GFR 25 mL/min [facility] AFR AMER GFR >60 [facility] Male GFR In terprentation 20-49 yrs >60 mL/min Normal 50-59 yrs >56 mL/min Normal 60-69 yrs >49 mL/min Normal 70-79yrs >42 mL/min Normal 80 and above >35 mL/min Normal Female GFR Interpretation 20-39 yrs >60 mL/min Normal 40-49 yrs >58 mL/min Normal 50-59 yrs >51 mL/min Normal 60-69 yrs >45 mL/min Normal 70-79 yrs >39 mL/min Normal 80 and above >32 mL/min Normal ID Date Data Source [id number] 06/09/2020 07:02:00 AM EDT [facility] Name Value Range Interpretation Code Description Data Ro rce(s) Supporting Document(s) COMPREHENSIVE METABOLIC PANEL [facility] COMPREHENSIVE METABOLIC PANEL Sodium [Moles/volume] in Serum or Plasma 145 mEq/L 134 - 153 [facility] Potassium [Moles/volume] in Serum or Plasma 5.0 mEq/L 3.6 - 5.0 [facility] Chloride [Moles/volume] in Serum or Plasma 103 mEq/L 98 - 107 [facility] Carbon dioxide, total [Moles/volume] in Serum or Plasma 36 MEQ/L 22 - 30 H [facility] Glucose [Mass/volume] in Serum or Plasma 107 MG/DL 65 - 110 [facility] BUN 46 MG/DL 7 - 21 H [facility] al Creatinine [Mass/volume] in Serum or Plasma 1.7 MG/DL 0.7 - 1.5 H [facility] BUN/CREAT 27 8 - 27 [facility] Protein [Mass/volume] in Serum or Plasma 5.4 G/DL 6.3 - 8.2 L [facility] Albumin [Mass/volume] in Serum or Plasma 3.6 G/DL 3.9 - 5.0 L [facility] Globulin [Mass/volume] in Serum by calculation 1.8 GM/DL 2.4 - 3.2 L [facility] A/G RATIO 2.0 0.8 - 2.0 [facility] Calcium [Mass/volume] in Serum or Plasma 8.8 MG/DL 8.4 - 10.2 [facility] Bilirubin.total [Mass/volume] in Serum or Plasma <0.7 MG/DL 0.2 - 1.3 [facility] Alkaline phosphatase [Enzymatic activity/volume] in Serum or Plasma 73 U/L 38 - 126 [facility] Aspartate aminotransferase [Enzymatic activity/volume] in Se rum or Plasma 9 U/L 5 - 40 [facility] Alanine aminotransferase [Enzymatic activity/volume] in Seru m or Plasma 10 U/L 7 - 56 [facility] Anion gap 3 in Serum or Plasma 6.0 mmol/L 8.0 - 16.0 L [facility] AGE 75 yrs [facility] NON-AA GFR 31 mL/min [facility] booker AFR AMER GFR >60 [facility] Male GFR In terprentation 20-49 yrs >60 mL/min Normal 50-59 yrs >56 mL/min Normal 60-69 yrs >49 mL/min Normal 70-79yrs >42 mL/min Normal 80 and above >35 mL/min Normal Female GFR Interpretation 20-39 yrs >60 mL/min Normal 40-49 yrs >58 mL/min Normal 50-59 yrs >51 mL/min Normal 60-69 yrs >45 mL/min Normal 70-79 yrs >39 mL/min Normal 80 and above >32 mL/min Normal ID Date Data Source [id number] 06/09/2020 07:01:00 AM EDT [facility] Name Value Range Interpretation Code Description Data Or rce(s) Supporting Document(s) CBC W/AUTOMATED DIFF [facility] COMPLETE BLOOD COUNT Leukocytes [#/volume] in Blood by Automated count 7.2 10^3/uL 4.2 - 1 1.0 [facility] Erythrocytes [#/volume] in Blood by Automated count 3.05 10^6/uL 4. 20 - 5.40 L [facility] Hemoglobin [Mass/volume] in Blood 9.1 g/dL 12.0 - 16.0 L [facility] Hematocrit [Volume Fraction] of Blood by Automated count 32.1 % 3 7.0 - 47.0 L [facility] Erythrocyte mean corpuscular volume [Entitic volume] b y Automated count 105.2 fL 81.0 - 101 H [facility] Erythrocyte mean corpuscular hemoglobin [Entitic mass] by Automated count 29.8 pg 27.0 - 34.0 [facility] Erythrocyte mean corpuscular hemoglobin concentration [Mass/volume] by Automated count 28.3 g/dL 31.0 - 36.0 L [facility] Erythrocyte distribution width [Ratio] by Automated count 17.6 % 11.5 - 14.5 H [facility] Platelets [#/volume] in Blood by Automated count 183 10^3/uL 150 - 45 0 [facility] Platelet mean volume [Entitic volume] in Blood by Automated count 10.4 fL 7.4 - 10.4 [facility] Neutrophils/100 leukocytes in Blood by Automated count 66.6 % 37. 0 - 80.0 [facility] Lymphocytes/100 leukocytes in Blood by Manual count 12.6 % 25.0 - 40.0 L [facility] Monocytes/100 leukocytes in Blood by Automated count 14.5 % 3.0 - 8.0 H [facility] Eosinophils/100 leukocytes in Blood by Automated count 4.6 % 0.0 - 7.0 [facility] Basophils/100 leukocytes in Blood by Automated count 0.6 % 0.0 - 2.5 [facility] %IG 1.1 % 0.0 - 0.0 [facility] %NRBC 0.0 % 0.0 - 0.0 [facility] al Neutrophils [#/volume] in Blood by Automated count 4.83 10^3/uL 2.00 - 6.90 [facility] Lymphocytes [#/volume] in Blood by Automated count 0.91 10^3/uL 0.60 - 3.40 [facility] Monocytes [#/volume] in Blood by Automated count 1.05 10^3/uL 0.00 - 0.90 H [facility] Eosinophils [#/volume] in Blood by Automated count 0.33 10^3/uL 0.00 - 0.70 [facility] Basophils [#/volume] in Blood by Automated count 0.04 10^3/uL 0.00 - 0.20 [facility] #IG 0.08 10^3/uL 0.00 - 0.10 [facility] #NRBC 0.00 10^3/uL 0.00 - 0.00 [facility] MANUAL DIFF SEE BELOW [facility] ital Segmented neutrophils/100 leukocytes in Blood by Manual count 93 % 37 - 80 H [facility] %LYMPH 4 % 25 - 40 L [facility] %MONO 3 % 3 - 8 [facility] RBC MORPH SEE BELOW [facility] Anisocytosis [Presence] in Blood by Light microscopy 1+ FARRUKH L: NONE SEEN A [facility] Macrocytes [Presence] in Blood by Light microscopy 1+ NORMAL: NONE SEEN A [facility] Poikilocytosis [Presence] in Blood by Light microscopy 1+ NOR MAL: NONE SEEN A [facility] HYPO 1+ NORMAL: NONE SEEN A [facility] Polychromasia [Presence] in Blood by Light microscopy 1+ NORM AL: NONE SEEN A [facility] { SICKLE CELL (NORMAL: NONE SEEN ) Platelet adequacy [Presence] in Blood by Light microscopy NORMAL NORMAL: NORMAL [facility] COMMENT: ID Date Data Source [id number] 06/08/2020 07:21:00 AM EDT [facility] Name Value Range Interpretation Code Description Data Ro rce(s) Supporting Document(s) CBC W/AUTOMATED DIFF [facility] COMPLETE BLOOD COUNT Leukocytes [#/volume] in Blood by Automated count 8.5 10^3/uL 4.2 - 1 1.0 [facility] Erythrocytes [#/volume] in Blood by Automated count 2.98 10^6/uL 4. 20 - 5.40 L [facility] Hemoglobin [Mass/volume] in Blood 9.0 g/dL 12.0 - 16.0 L [facility] Hematocrit [Volume Fraction] of Blood by Automated count 31.1 % 3 7.0 - 47.0 L [facility] Erythrocyte mean corpuscular volume [Entitic volume] b y Automated count 104.4 fL 81.0 - 101 H [facility] Erythrocyte mean corpuscular hemoglobin [Entitic mass] by Automated count 30.2 pg 27.0 - 34.0 [facility] Erythrocyte mean corpuscular hemoglobin concentration [Mass/volume] by Automated count 28.9 g/dL 31.0 - 36.0 L [facility] Erythrocyte distribution width [Ratio] by Automated count 17.5 % 11.5 - 14.5 H [facility] Platelets [#/volume] in Blood by Automated count 167 10^3/uL 150 - 45 0 [facility] Platelet mean volume [Entitic volume] in Blood by Automated count 10.6 fL 7.4 - 10.4 H [facility] Neutrophils/100 leukocytes in Blood by Automated count 70.9 % 37. 0 - 80.0 [facility] Lymphocytes/100 leukocytes in Blood by Manual count 10.5 % 25.0 - 40.0 L [facility] Monocytes/100 leukocytes in Blood by Automated count 13.4 % 3.0 - 8.0 H [facility] Eosinophils/100 leukocytes in Blood by Automated count 3.9 % 0.0 - 7.0 [facility] Basophils/100 leukocytes in Blood by Automated count 0.4 % 0.0 - 2.5 [facility] %IG 0.9 % 0.0 - 0.0 H [facility] al %NRBC 0.0 % 0.0 - 0.0 [facility] al Neutrophils [#/volume] in Blood by Automated count 5.99 10^3/uL 2.00 - 6.90 [facility] Lymphocytes [#/volume] in Blood by Automated count 0.89 10^3/uL 0.60 - 3.40 [facility] Monocytes [#/volume] in Blood by Automated count 1.13 10^3/uL 0.00 - 0.90 H [facility] Eosinophils [#/volume] in Blood by Automated count 0.33 10^3/uL 0.00 - 0.70 [facility] Basophils [#/volume] in Blood by Automated count 0.03 10^3/uL 0.00 - 0.20 [facility] #IG 0.08 10^3/uL 0.00 - 0.10 [facility] #NRBC 0.00 10^3/uL 0.00 - 0.00 [facility] MANUAL DIFF NOT INDICATED [facility] RBC MORPH NOT INDICATED [facility] ID Date Data Source [id number] 06/08/2020 07:03:00 AM EDT [facility] Name Value Range Interpretation Code Description Data Ro rce(s) Supporting Document(s) COMPREHENSIVE METABOLIC PANEL [facility] COMPREHENSIVE METABOLIC PANEL Sodium [Moles/volume] in Serum or Plasma 143 mEq/L 134 - 153 [facility] Potassium [Moles/volume] in Serum or Plasma 5.1 mEq/L 3.6 - 5.0 H [facility] Chloride [Moles/volume] in Serum or Plasma 100 mEq/L 98 - 107 [facility] Carbon dioxide, total [Moles/volume] in Serum or Plasma 38 MEQ/L 22 - 30 H [facility] Glucose [Mass/volume] in Serum or Plasma 117 MG/DL 65 - 110 H [facility] BUN 50 MG/DL 7 - 21 H [facility] Creatinine [Mass/volume] in Serum or Plasma 2.0 MG/DL 0.7 - 1.5 H [facility] BUN/CREAT 25 8 - 27 [facility] Protein [Mass/volume] in Serum or Plasma 5.6 G/DL 6.3 - 8.2 L [facility] Albumin [Mass/volume] in Serum or Plasma 3.4 G/DL 3.9 - 5.0 L [facility] Globulin [Mass/volume] in Serum by calculation 2.2 GM/DL 2.4 - 3.2 L [facility] A/G RATIO 1.5 0.8 - 2.0 [facility] Calcium [Mass/volume] in Serum or Plasma 8.5 MG/DL 8.4 - 10.2 [facility] Bilirubin.total [Mass/volume] in Serum or Plasma <0.7 MG/DL 0.2 - 1.3 [facility] Alkaline phosphatase [Enzymatic activity/volume] in Serum or Plasma 68 U/L 38 - 126 [facility] Aspartate aminotransferase [Enzymatic activity/volume] in Se rum or Plasma 8 U/L 5 - 40 [facility] Alanine aminotransferase [Enzymatic activity/volume] in Seru m or Plasma 10 U/L 7 - 56 [facility] Anion gap 3 in Serum or Plasma 5.0 mmol/L 8.0 - 16.0 L [facility] AGE 75 yrs [facility] NON-AA GFR 26 mL/min [facility] booker AFR AMER GFR >60 [facility] Male GFR In terprentation 20-49 yrs >60 mL/min Normal 50-59 yrs >56 mL/min Normal 60-69 yrs >49 mL/min Normal 70-79yrs >42 mL/min Normal 80 and above >35 mL/min Normal Female GFR Interpretation 20-39 yrs >60 mL/min Normal 40-49 yrs >58 mL/min Normal 50-59 yrs >51 mL/min Normal 60-69 yrs >45 mL/min Normal 70-79 yrs >39 mL/min Normal 80 and above >32 mL/min Normal ID Date Data Source [id number] 06/07/2020 12:45:00 PM EDT [facility] [address] [place] [address] PHONE: [phone] FAX: [phone] Name .................. : TR Whitley Acct Number.................. : [id number] ROOM. ................. : 119-1 Number ................... : [id number] Stay type ............. : I/P Discharge Date......... ... : Admit Date ......... : 05/10 Admit Phys .................... : REY BEVERLY Date of ....... : 1945 Family Phys ................... : CASPER Phone .................. : [phone] Age ................................ : 75 Film# .................. .:[id number] Sex ................................. : F Unsigned transcriptions are preliminary reports and do not represent a medical or legal document CHEST 2 VIEWS [id number] COMPLETE:06/07/20 06:42 DLA [id number] (REASON FOR CHEST: CHF CHEST TWO VIEW, 06/07/20: INDICATION: CHF. Comparison . FINDINGS: Two views of the chest were submitted. Hyperinflation. Chronic interstitial changes. No infiltrate or effusion. Left-sided pacemaker. Borderline cardiomegaly. IMPRESSION: No infiltrate or effusion. COPD changes. Borderline cardiomegaly. Electronically Reviewed and Signed By Rishabh Cee MD , 06/07/20 12:45, JANINE Transcribe Initials: SSR, Transcribe Date: 06/07/20 09:22, Dictation Date: Copy for: 002 RUST Copy for: 710 [employer] REC Page 1 of 1 Name Value Range Interpretation Code Description Data Ro rce(s) Supporting Document(s) ID Date Data Source [id number] 06/07/2020 06:55:00 AM EDT [facility] Name Value Range Interpretation Code Description Data Ro rce(s) Supporting Document(s) COMPREHENSIVE METABOLIC PANEL [facility] COMPREHENSIVE METABOLIC PANEL Sodium [Moles/volume] in Serum or Plasma 143 mEq/L 134 - 153 [facility] Potassium [Moles/volume] in Serum or Plasma 4.7 mEq/L 3.6 - 5.0 [facility] Chloride [Moles/volume] in Serum or Plasma 97 mEq/L 98 - 107 L [facility] Carbon dioxide, total [Moles/volume] in Serum or Plasma 38 MEQ/L 22 - 30 H [facility] Glucose [Mass/volume] in Serum or Plasma 110 MG/DL 65 - 110 [facility] BUN 53 MG/DL 7 - 21 H [facility] Creatinine [Mass/volume] in Serum or Plasma 2.3 MG/DL 0.7 - 1.5 H [facility] BUN/CREAT 23 8 - 27 [facility] Protein [Mass/volume] in Serum or Plasma 5.3 G/DL 6.3 - 8.2 L [facility] Albumin [Mass/volume] in Serum or Plasma 3.2 G/DL 3.9 - 5.0 L [facility] Globulin [Mass/volume] in Serum by calculation 2.1 GM/DL 2.4 - 3.2 L [facility] A/G RATIO 1.5 0.8 - 2.0 [facility] Calcium [Mass/volume] in Serum or Plasma 8.4 MG/DL 8.4 - 10.2 [facility] Bilirubin.total [Mass/volume] in Serum or Plasma <0.7 MG/DL 0.2 - 1.3 [facility] Alkaline phosphatase [Enzymatic activity/volume] in Serum or Plasma 58 U/L 38 - 126 [facility] Aspartate aminotransferase [Enzymatic activity/volume] in Se rum or Plasma 8 U/L 5 - 40 [facility] Alanine aminotransferase [Enzymatic activity/volume] in Seru m or Plasma 11 U/L 7 - 56 [facility] Anion gap 3 in Serum or Plasma 8.0 mmol/L 8.0 - 16.0 [facility] AGE 75 [facility] G[facility] 22 mL/min [facility] AFR AMER GFR >60 [facility] pital Male GFR In terprentation 20-49 yrs >60 mL/min Normal 50-59 yrs >56 mL/min Normal 60-69 yrs >49 mL/min Normal 70-79yrs >42 mL/min Normal 80 and above >35 mL/min Normal Female GFR Interpretation 20-39 yrs >60 mL/min Normal 40-49 yrs >58 mL/min Normal 50-59 yrs >51 mL/min Normal 60-69 yrs >45 mL/min Normal 70-79 yrs >39 mL/min Normal 80 and above >32 mL/min Normal ID Date Data Source [id number] 06/07/2020 06:50:00 AM EDT [facility] Name Value Range Interpretation Code Description Data Ro rce(s) Supporting Document(s) BNP 2536 PG/ML 0 - 125 H [facility] booker ID Date Data Source [id number] 06/07/2020 10:53:00 AM EDT [facility] Name Value Range Interpretation Code Description Data Ro rce(s) Supporting Document(s) Iron [Mass/volume] in Serum or Plasma 54 UG/DL 42 - 135 [facility] ID Date Data Source [id number] 06/07/2020 07:10:00 AM EDT [facility] Name Value Range Interpretation Code Description Data Ro rce(s) Supporting Document(s) CBC W/AUTOMATED DIFF [facility] COMPLETE BLOOD COUNT Leukocytes [#/volume] in Blood by Automated count 7.8 10^3/uL 4.2 - 1 1.0 [facility] Erythrocytes [#/volume] in Blood by Automated count 2.89 10^6/uL 4. 20 - 5.40 L [facility] Hemoglobin [Mass/volume] in Blood 8.8 g/dL 12.0 - 16.0 L [facility] Hematocrit [Volume Fraction] of Blood by Automated count 29.8 % 3 7.0 - 47.0 L [facility] Erythrocyte mean corpuscular volume [Entitic volume] b y Automated count 103.1 fL 81.0 - 101 H [facility] Erythrocyte mean corpuscular hemoglobin [Entitic mass] by Automated count 30.4 pg 27.0 - 34.0 [facility] Erythrocyte mean corpuscular hemoglobin concentration [Mass/volume] by Automated count 29.5 g/dL 31.0 - 36.0 L [facility] Erythrocyte distribution width [Ratio] by Automated count 17.3 % 11.5 - 14.5 H [facility] Platelets [#/volume] in Blood by Automated count 169 10^3/uL 150 - 45 0 [facility] Platelet mean volume [Entitic volume] in Blood by Automated count 10.7 fL 7.4 - 10.4 H [facility] Neutrophils/100 leukocytes in Blood by Automated count 65.0 % 37. 0 - 80.0 [facility] Lymphocytes/100 leukocytes in Blood by Manual count 13.0 % 25.0 - 40.0 L [facility] Monocytes/100 leukocytes in Blood by Automated count 16.0 % 3.0 - 8.0 H [facility] Eosinophils/100 leukocytes in Blood by Automated count 4.2 % 0.0 - 7.0 [facility] 0.4 %IG 1.4 % 0.0 - 0.0 H [facility] [place] %NRBC 0.0 % 0.0 - 0.0 [facility] Neutrophils [#/volume] in Blood by Automated count 5.09 10^3/uL 2.00 - 6.90 [facility] Lymphocytes [#/volume] in Blood by Automated count 1.02 10^3/uL 0.60 - 3.40 [facility] Monocytes [#/volume] in Blood by Automated count 1.25 10^3/uL 0.00 - 0.90 H [facility] Eosinophils [#/volume] in Blood by Automated count 0.33 10^3/uL 0.00 - 0.70 [facility] Basophils [#/volume] in Blood by Automated count 0.03 10^3/uL 0.00 - 0.20 [facility] #IG 0.11 10^3/uL 0.00 - 0.10 H [facility] #NRBC 0.00 10^3/uL 0.00 - 0.00 [facility] MANUAL DIFF SEE BELOW [facility] Segmented neutrophils/100 leukocytes in Blood by Manual count 73 % 37 - 80 [facility] BAND 0 % 0 - 5 [facility] %LYMPH 17 % 25 - 40 L [facility] %MONO 7 % 3 - 8 [facility] %EOS 3 % 0 - 7 [facility] 0 RBC MORPH SEE BELOW [facility] Anisocytosis [Presence] in Blood by Light microscopy 1+ FARRUKH L: NONE SEEN A [facility] Poikilocytosis [Presence] in Blood by Light microscopy 1+ NOR MAL: NONE SEEN A [facility] HYPO 1+ NORMAL: NONE SEEN A [facility] { SICKLE CELL (NORMAL: NONE SEEN ) COMMENT: ID Date Data Source [id number] 06/06/2020 10:42:00 AM EDT [facility] [address] [place] [address] PHONE: [phone] FAX: [phone] Name .................. : TR Whitley Acct Number.................. : [id number] ROOM. ................. : 119-1 Number ................... : [id number] Stay type ............. : I/P Discharge Date......... ... : Admit Date ......... : 05/28/20 Admit Phys .................... : REY BEVERLY Date of ....... : 1945 Family Phys ................... : CASPER Phone .................. : [phone] Age ................................ : 75 Film# .................. .:[id number] Sex ................................. : F Unsigned transcriptions are preliminary reports and do not represent a medical or legal document CT THORAX W/O CONTRAST [id number] COMPLETE:06/05/20 19:[address] [facility] 17971 (REASON FOR CHEST: CHF CT OF THE CHEST WITHOUT CONTRAST: INDICATION: CHF. COMPARISON: 05/26/20 FINDINGS: No reactive mediastinal or hilar adenopathy. No cardiac enlargement or pericardial effusion. No infiltrate. No effusion. Chronic interstitial changes lower lungs. Mild hyperinflation. The osseous structures are unremarkable. Small right pleural effusion. IMPRESSION: No infiltrate. Small right effusion. Basilar atelectasis versus scarring. No reactive adenopathy. While performing the above CT examination, radiation dose reduction was accomplished utilizing automated exposure control, adjusting of the mA and kV based on the patient's body size and/or the use of imperative reconstructive techniques. CT dose: 311.7 mGycm Electronically Reviewed and Signed By Rishabh Cee MD , 06/06/20 10:42, JANINE Transcribe Initials: KIRIT , Transcribe Date: 06/06/20 03:18, Dictation Date: Page 1 of [address] [place] [address] PHONE: [phone] FAX: [phone] Name .................. : TR Whitley Acct Number.................. : [id number] ROOM. ................. : 119-1 MR Number ................... : [id number] Stay type ............. : I/P Discharge Date......... ... : Admit Date ......... : 05/28/20 Admit Phys .................... : REY BEVERLY Date of ....... : 1945 Family Phys ................... : [id number] Phone .................. : [phone] Age ................................ : 75 Film# .................. .:[id number] Sex ................................. : F Unsigned transcriptions are preliminary reports and do not represent a medical or legal document CT THORAX W/O CONTRAST 73705 COMPLETE:06/05/20 19:[address] [facility] 42775 (REASON FOR CHEST: CHF Copy for: 002 RUST Copy for: 710 MED REC Page 2 of 2 Name Value Range Interpretation Code Description Data Ro rce(s) Supporting Document(s) ID Date Data Source [id number] 06/06/2020 07:24:00 AM EDT [facility] Name Value Range Interpretation Code Description Data Ro rce(s) Supporting Document(s) CBC W/AUTOMATED DIFF [facility] COMPLETE BLOOD COUNT Leukocytes [#/volume] in Blood by Automated count 9.1 10^3/uL 4.2 - 1 1.0 [facility] Erythrocytes [#/volume] in Blood by Automated count 2.93 10^6/uL 4. 20 - 5.40 L [facility] Hemoglobin [Mass/volume] in Blood 8.9 g/dL 12.0 - 16.0 L [facility] Hematocrit [Volume Fraction] of Blood by Automated count 31.0 % 3 7.0 - 47.0 L [facility] Erythrocyte mean corpuscular volume [Entitic volume] b y Automated count 105.8 fL 81.0 - 101 H [facility] Erythrocyte mean corpuscular hemoglobin [Entitic mass] by Automated count 30.4 pg 27.0 - 34.0 [facility] Erythrocyte mean corpuscular hemoglobin concentration [Mass/volume] by Automated count 28.7 g/dL 31.0 - 36.0 L [facility] Erythrocyte distribution width [Ratio] by Automated count 17.6 % 11.5 - 14.5 H [facility] Platelets [#/volume] in Blood by Automated count 174 10^3/uL 150 - 45 0 [facility] Platelet mean volume [Entitic volume] in Blood by Automated count 10.8 fL 7.4 - 10.4 H [facility] Neutrophils/100 leukocytes in Blood by Automated count 71.2 % 37. 0 - 80.0 [facility] Lymphocytes/100 leukocytes in Blood by Manual count 11.0 % 25.0 - 40.0 L [facility] Monocytes/100 leukocytes in Blood by Automated count 14.1 % 3.0 - 8.0 H [facility] Eosinophils/100 leukocytes in Blood by Automated count 2.4 % 0.0 - 7.0 [facility] Basophils/100 leukocytes in Blood by Automated count 0.2 % 0.0 - 2.5 [facility] %IG 1.1 % 0.0 - 0.0 [facility] [place] %NRBC 0.0 % 0.0 - 0.0 [facility] Neutrophils [#/volume] in Blood by Automated count 6.49 10^3/uL 2.00 - 6.90 [facility] Lymphocytes [#/volume] in Blood by Automated count 1.00 10^3/uL 0.60 - 3.40 [facility] Monocytes [#/volume] in Blood by Automated count 1.29 10^3/uL 0.00 - 0.90 H [facility] Eosinophils [#/volume] in Blood by Automated count 0.22 10^3/uL 0.00 - 0.70 [facility] Basophils [#/volume] in Blood by Automated count 0.02 10^3/uL 0.00 - 0.20 [facility] #IG 0.10 10^3/uL 0.00 - 0.10 [facility] #NRBC 0.00 10^3/uL 0.00 - 0.00 [facility] MANUAL DIFF SEE BELOW [facility] Segmented neutrophils/100 leukocytes in Blood by Manual count 78 % 37 - 80 [facility] BAND 1 % 0 - 5 [facility] %LYMPH 8 % 25 - 40 L [facility] %MONO 11 % 3 - 8 H [facility] %EOS 2 % 0 - 7 [facility] RBC MORPH SEE BELOW [facility] Anisocytosis [Presence] in Blood by Light microscopy 1+ FARRUKH L: NONE SEEN A [facility] Macrocytes [Presence] in Blood by Light microscopy 1+ NORMAL: NONE SEEN A [facility] Poikilocytosis [Presence] in Blood by Light microscopy 1+ NOR MAL: NONE SEEN A [facility] HYPO 1+ NORMAL: NONE SEEN A [facility] { SICKLE CELL (NORMAL: NONE SEEN ) Platelet adequacy [Presence] in Blood by Light microscopy NORMAL NORMAL: NORMAL [facility] COMMENT: ID Date Data Source [id number] 06/06/2020 07:09:00 AM EDT [facility] Name Value Range Interpretation Code Description Data Ro rce(s) Supporting Document(s) COMPREHENSIVE METABOLIC PANEL [facility] COMPREHENSIVE METABOLIC PANEL Sodium [Moles/volume] in Serum or Plasma 145 mEq/L 134 - 153 [facility] Potassium [Moles/volume] in Serum or Plasma 4.7 mEq/L 3.6 - 5.0 [facility] Chloride [Moles/volume] in Serum or Plasma 99 mEq/L 98 - 107 [facility] Carbon dioxide, total [Moles/volume] in Serum or Plasma 39 MEQ/L 22 - 30 H [facility] Glucose [Mass/volume] in Serum or Plasma 102 MG/DL 65 - 110 [facility] BUN 47 MG/DL 7 - 21 H [facility] Creatinine [Mass/volume] in Serum or Plasma 2.2 MG/DL 0.7 - 1.5 H [facility] BUN/CREAT 21 8 - 27 [facility] Protein [Mass/volume] in Serum or Plasma 5.6 G/DL 6.3 - 8.2 L [facility] Albumin [Mass/volume] in Serum or Plasma 3.5 G/DL 3.9 - 5.0 L [facility] Globulin [Mass/volume] in Serum by calculation 2.1 GM/DL 2.4 - 3.2 L [facility] A/G RATIO 1.7 0.8 - 2.0 [facility] Calcium [Mass/volume] in Serum or Plasma 8.6 MG/DL 8.4 - 10.2 [facility] Bilirubin.total [Mass/volume] in Serum or Plasma <0.7 MG/DL 0.2 - 1.3 [facility] Alkaline phosphatase [Enzymatic activity/volume] in Serum or Plasma 62 U/L 38 - 126 [facility] Aspartate aminotransferase [Enzymatic activity/volume] in Se rum or Plasma 9 U/L 5 - 40 [facility] Alanine aminotransferase [Enzymatic activity/volume] in Seru m or Plasma 15 U/L 7 - 56 [facility] Anion gap 3 in Serum or Plasma 7.0 mmol/L 8.0 - 16.0 L [facility] AGE 75 yrs [facility] NON-AA GFR 23 mL/min [facility] AFR AMER GFR >60 [facility] Male GFR In terprentation 20-49 yrs >60 mL/min Normal 50-59 yrs >56 mL/min Normal 60-69 yrs >49 mL/min Normal 70-79yrs >42 mL/min Normal 80 and above >35 mL/min Normal Female GFR Interpretation 20-39 yrs >60 mL/min Normal 40-49 yrs >58 mL/min Normal 50-59 yrs >51 mL/min Normal 60-69 yrs >45 mL/min Normal 70-79 yrs >39 mL/min Normal 80 and above >32 mL/min Normal ID Date Data Source [id number] 06/06/2020 07:09:00 AM EDT [facility] Name Value Range Interpretation Code Description Data Ro rce(s) Supporting Document(s) BNP 4177 PG/ML 0 - 125 [facility] ID Date Data Source [id number] 06/05/2020 09:09:00 [place] [address] RESPIRATORY CARE REPORT ==== ---------NAME------- NUMBER SEX AGE ADMIT DISC. XRAY# F/C EDWIN DONALD Whitley [id number] F 75 05/28/20 [id number] ME8 I/P DATE OF : 1945 M/R# [id number] PH#: [phone] 119-1 LOCATION: EKG 42223 COMPLETE:06/05/20 1 0:50 72675 PHYSICIAN: REY PAUL Name Value Range Interpretation Code Description Data Ro rce(s) Supporting Document(s) ID Date Data Source [id number] 06/03/2020 01:19:00 [place] [address] PROGRESS NOTENAME: TR Whitley ROOM#: 119-1DATE OF : 1945 MR#: [id number] DATE: 05/28/20 OF SERVICE: 06/02/20UBJECTIVE: This patient's dyspnea and wheezing are slightly better. Patient went into respiratory failurewith hypercapnia. She is on high flow oxygen. ROS: She is dizzy when she stands up. There is no chills orfever. No cough or hemoptysis. No bowel disturbance. No ankle edema. She has some orthopnea.OBJECTIVE: On exam, moderately built. Blood pressure is 140/80. Head is normal. Heart is regular sinusrhythm. Lungs with scattered rhonchi in the bases. Abdomen is soft. Extremities with 1+ edema.LABORATORY DATA: Hemoglobin is 8.9. Sodium is 135, potassium is 4.7, BUN is 33, creatinineis 1.8. ABG shows pH of 7.39, pCO2 is 60, pO2 is 80. Magnesium is 1.9.ASSESSMENT: Patient has the following issues:1. Respiratory failure, hypercapnia.2. Congestive heart failure.PLAN:1. Patient is on high flow oxygen. We will change it to oxygen 2-3 liters per minute.2. We will add handihaler nebulizers with DuoNeb treatments with Pulmicort twice a day.3. We will increase Lasix to 40 mg b.i.d. IV.4. ABG will be obtained tomorrow in the morning.DD: Silver Peterson MD, 06/02/20 09:19DT: RAMIRO 06/03/20 01:14DS: Silver Peterson MD, PC 06/05/20 09:31 1 Name Value Range Interpretation Code Description Data Ro rce(s) Supporting Document(s) ID Date Data Source [id number] 06/01/2020 05:34:00 [place] [address] PROGRESS NOTENAME: TR Whitley ROOM#: 119-1DATE OF : 1945 MR#: [id number] DATE: 05/28/20 OF SERVICE: 06/01/20UBJECTIVE: This patient's condition became worse. She is more dyspneic.OBJECTIVE: Heart is regular sinus rhythm. Lungs with scattered rhonchi at the bases. Abdomen is soft.ASSESSMENT/PLAN: Patient went into respiratory distress with hypercapnia. Her venous pCO2 is 42.BUN is 44. Creatinine is 1.9. Magnesium level is 1.6. Hemoglobin is 8.6. Plan is to give high flow oxygen forelevated pCO2.DD: Silver Peterson MD, PC 06/01/20 16:48DT: RAMIRO 06/01/20 17:31DS: Silver Peterson MD, PC 06/05/20 09:31 1 Name Value Range Interpretation Code Description Data Ro rce(s) Supporting Document(s) ID Date Data Source [id number] 05/29/2020 02:01:00 [place] [address] PROGRESS NOTENAME: TR Whitley ROOM#: 119-1DATE OF : 1945 MR#: [id number] DATE: 05/28/20 OF SERVICE: 05/29/2020SUBJECTIVE:Donald Armando has improved quite a bit. Dyspnea and wheezing have improved. She is more alert.ROS: There is no dizziness, syncope, diplopia, headache. No chest pain. No chills or fever. No coughor hemoptysis. No bowel disturbance. No ankle edema.OBJECTIVE:On exam, moderately built. Blood pressure was 130/80. Head is normal. Heart regular sinus rhythm.Lungs clear. Abdomen soft.LABORATORY DATA:Lab tests showed sodium 145, potassium 5.3, BUN 65, creatinine 2.2, magnesium 1.8, hemoglobin 9.2,white count 12,200.ASSESSMENT: Patient has the following issues:1. Renal failure.2. Congestive heart failure.3. Hyperkalemia.PLAN:The plan is to give Kayexalate infusion 1 gram today. We will continue low dose Lasix.DD: Silver Peterson MD, PC 05/29/20 09:34DT: SSR 05/29/20 14:01DS: Silver Peterson MD, PC 06/05/20 09:31 1 Name Value Range Interpretation Code Description Data Ro rce(s) Supporting Document(s) ID Date Data Source [id number] 05/29/2020 11:32:00 [place] [address] HISTORY AND PHYSICALNAME: TR Whitley ROOM#: 119-1DATE OF : 1945 MR#: [id number] PHYS: Silver Peterson MD, DATE: 05/28/20HISTORY OF PRESENT ILLNESS:This is a 74-year-old white female who presented with dyspnea, orthopnea, ankle edema, weakness, chestpain, congestive heart failure. She received a Lasix drip, went into kidney failure, and was given IV saline toimprove kidney function. Patient has a history of coronary artery disease, coronary bypass, permanentpacemaker. She has had a mitral valve repair, mitral valve ring, and tricuspid ring for tricuspid regurgitation.She had surgery done in [facility] several months ago. On exam, blood pressure 130/80, pulse was70. Head was normal. Neck was distended. Heart regular sinus rhythm. Lungs had rales at the bases. Abdomensoft. Admission impression of congestive heart failure, systolic ejection fraction 40-50%, status post openheart surgery, mitral valve repair with mitral valve ring and tricuspid valve ring, history of atrial fibrillationwith permanent pacemaker, history of Watchman dev ice.LABORATORY STUDIES:Initial lab tests showed that the x-ray did show congestive failure, cardiomegaly, pulmonary venouscongestion, bilateral atelectasis, bilateral pleural effusion. EKG showed paced rhythm. Lab tests showed T4and TSH were normal. Patient was on amiodarone, we wanted to be sure the thyroid panels were good.Magnesium 1.8, iron level 87, sodium 138, potassium 4.9, BUN 40, creatinine 2.3. She had renal dysfunctionat the start of it. Troponin was 0.15, lactic acid 2.2. ABG showed pH 7.41, pO2 63.8, pCO2 46. On 05/22,sodium 138, potassium 4.9, creatinine 2.3, hemoglobin 10.2. On 05/23, potassium 5.3, BUN 47, creatinine 2.5,hemoglobin 9.8, LDL 78, hemoglobin A1c 5. On 05/24, potassium 5.3, BUN 70, creatinine 3.2. Patient wentinto renal failure from possible Lasix drip from diabetes, so we put her on IV fluid half normal with 1ampoule of bicarb 80 cc/hour. On 05/25, BUN 87, creatinine 3.4,hemoglobin 8.8. On 05/26, BUN 87,creatinine 3.1. IV fluid did improve the kidney function. Iron level was 48 on 05/26. On 05/27, BUN 85,creatinine 2.6, is much better, hemoglobin 9.1. On 05/28, hemoglobin 9.3, white count 12,000, potassium 5.1,BUN 78, creatinine 2.4. Kidney function improved with the IV fluid.COURSE DURING HOSPITALIZATION:Patient was put on classroom monitor, 2 L of oxygen per minute nasal cannula, amiodarone 200 mg dailytaking for atrial fib, metoprolol 25 mg bid, Lasix drip 10 mg/hour IV, metformin 1000 bid which wassubsequently stopped, Solu-Medrol 62.5 mg eight hourly IV. Dyspnea improved. Lung examination becamemuch clearer, chest x-ray much clearer. Procrit was given 20,000 units for anemia. On 05/25, BUN andcreatinine went up, Lasix drip was stopped, patient was given normal saline 250 cc/hour IV over three hours.Subsequently, she was put on half normal saline on 05/25 with 1 ampoule of bicarb 80 cc/hour, whichimproved the kidney function. CAT scan of the chest did show minimal congestive changes. Solu-Medrol wasgradually tapered and cut down to 62.5 mg once a day. The patient improved, much better. On 05/28, she hadimproved quite a bit. It was decided to discharge her to swing bed.FINAL DIAGNOSES: 1. Congestive heart failure, systolic ejection fraction 40-50% 1 [place] [address] HISTORY AND PHYSICALNAME: TR Whitley ROOM#: 119-1DATE OF : 1945 MR#: [id number] PHYS: Silver Peterson MD, PC DATE: 05/28/20 2. Status post open heart surgery. 3. Status post mitral valve repair with mitral valve ring and tricuspid valve ring. 4. History of atrial fibrillation. 5. History of permanent pacemaker, Watchmen device. 6. History of acute on chronic renal failure.DD: Silver Peterson MD, PC 05/28/20 12:17DT: DMZ 05/29/20 23:22DS: Silver Peterson MD, PC 06/05/20 09:31 2 Name Value Range Interpretation Code Description Data Ro rce(s) Supporting Document(s) ID Date Data Source [id number] [facility] Value Range Interpretation Code Description Data Ro rce(s) Supporting Document(s) Cobalamin (Vitamin B12) [Mass/volume] in Serum or Plasma 653 PG/ML 232 - 1245 [facility] ID Date Data Source [id number] 06/05/2020 09:52:[facility] Name Value Range Interpretation Code Description Data Ro rce(s) Supporting Document(s) Iron [Mass/volume] in Serum or Plasma 54 UG/DL 42 - 135 [facility] ID Date Data Source [id number] 06/05/2020 06:49:[facility] Value Range Interpretation Code Description Data Ro rce(s) Supporting Document(s) CBC W/AUTOMATED DIFF [facility] CORRECTE D REPORT COMPLETE BLOOD COUNT Leukocytes [#/volume] in Blood by Automated count 8.8 10^3/uL 4.2 - 1 1.0 [facility] Erythrocytes [#/volume] in Blood by Automated count 2.88 10^6/uL 4. 20 - 5.40 L [facility] Hemoglobin [Mass/volume] in Blood 8.6 g/dL 12.0 - 16.0 L [facility] Hematocrit [Volume Fraction] of Blood by Automated count 30.4 % 3 7.0 - 47.0 L [facility] Erythrocyte mean corpuscular volume [Entitic volume] b y Automated count 105.6 fL 81.0 - 101 H [facility] Erythrocyte mean corpuscular hemoglobin [Entitic mass] by Automated count 29.9 pg 27.0 - 34.0 [facility] Erythrocyte mean corpuscular hemoglobin concentration [Mass/volume] by Automated count 28.3 g/dL 31.0 - 36.0 L [facility] Erythrocyte distribution width [Ratio] by Automated count 17.5 % 11.5 - 14.5 H [facility] Platelets [#/volume] in Blood by Automated count 171 10^3/uL 150 - 45 0 [facility] Platelet mean volume [Entitic volume] in Blood by Automated count 10.0 fL 7.4 - 10.4 [facility] Neutrophils/100 leukocytes in Blood by Automated count 69.8 % 37. 0 - 80.0 [facility] Lymphocytes/100 leukocytes in Blood by Manual count 11.8 % 25.0 - 40.0 L [facility] Monocytes/100 leukocytes in Blood by Automated count 14.5 % 3.0 - 8.0 H [facility] Eosinophils/100 leukocytes in Blood by Automated count 2.5 % 0.0 - 7.0 [facility] 0.2 Basophils/100 leukocytes in Blood by Automated count 0.2 % 0.0 - 2.5 [facility] %IG 1.2 % 0.0 - 0.0 [facility] %NRBC 0.0 % 0.0 - 0.0 [facility] Neutrophils [#/volume] in Blood by Automated count 6.15 10^3/uL 2.00 - 6.90 [facility] Lymphocytes [#/volume] in Blood by Automated count 1.04 10^3/uL 0.60 - 3.40 [facility] Monocytes [#/volume] in Blood by Automated count 1.28 10^3/uL 0.00 - 0.90 H [facility] Eosinophils [#/volume] in Blood by Automated count 0.22 10^3/uL 0.00 - 0.70 [facility] Basophils [#/volume] in Blood by Automated count 0.02 10^3/uL 0.00 - 0.20 [facility] #IG 0.11 10^3/uL 0.00 - 0.10 H [facility] #NRBC 0.00 10^3/uL 0.00 - 0.00 [facility] MANUAL DIFF SEE BELOW [facility] Segmented neutrophils/100 leukocytes in Blood by Manual count 75 % 37 - 80 [facility] BAND 0 % 0 - 5 [facility] %LYMPH 17 % 25 - 40 L [facility] %MONO 7 % 3 - 8 [facility] %EOS 1 % 0 - 7 [facility] 0 RBC MORPH SEE BELOW [facility] { SICKLE CELL (NORMAL: NONE SEEN ) COMMENT: _NO_PLATELET_CLUMPING 06/05/20.TN . . . ____ Anisocytosis [Presence] in Blood by Light microscopy 1+ FARRUKH L: NONE SEEN A [facility] Poikilocytosis [Presence] in Blood by Light microscopy 1+ NOR MAL: NONE SEEN A [facility] HYPO 1+ NORMAL: NONE SEEN A [facility] { SICKLE CELL (NORMAL: NONE SEEN ) COMMENT: _NO_PLATELET_CLUMPING 06/05/20.TN . . . ____ ======== FOLLOWING RESULTS REPORTED IN ERROR MANUAL DIFF { CORRECT DIFF ADDED ID Date Data Source [id number] 06/05/2020 06:48:00 AM EDT [facility] Name Value Range Interpretation Code Description Data Ro rce(s) Supporting Document(s) COMPREHENSIVE METABOLIC PANEL [facility] COMPREHENSIVE METABOLIC PANEL Sodium [Moles/volume] in Serum or Plasma 142 mEq/L 134 - 153 [facility] Potassium [Moles/volume] in Serum or Plasma 4.7 mEq/L 3.6 - 5.0 [facility] Chloride [Moles/volume] in Serum or Plasma 99 mEq/L 98 - 107 [facility] Carbon dioxide, total [Moles/volume] in Serum or Plasma 40 MEQ/L 22 - 30 H [facility] Glucose [Mass/volume] in Serum or Plasma 107 MG/DL 65 - 110 [facility] BUN 44 MG/DL 7 - 21 H [facility] Creatinine [Mass/volume] in Serum or Plasma 2.0 MG/DL 0.7 - 1.5 H [facility] BUN/CREAT 22 8 - 27 [facility] Protein [Mass/volume] in Serum or Plasma 5.1 G/DL 6.3 - 8.2 L [facility] Albumin [Mass/volume] in Serum or Plasma 3.1 G/DL 3.9 - 5.0 L [facility] Globulin [Mass/volume] in Serum by calculation 2.0 GM/DL 2.4 - 3.2 L [facility] A/G RATIO 1.6 0.8 - 2.0 [facility] Calcium [Mass/volume] in Serum or Plasma 8.3 MG/DL 8.4 - 10.2 L [facility] Bilirubin.total [Mass/volume] in Serum or Plasma <0.7 MG/DL 0.2 - 1.3 [facility] Alkaline phosphatase [Enzymatic activity/volume] in Serum or Plasma 54 U/L 38 - 126 [facility] Aspartate aminotransferase [Enzymatic activity/volume] in Se rum or Plasma 8 U/L 5 - 40 [facility] Alanine aminotransferase [Enzymatic activity/volume] in Seru m or Plasma 15 U/L 7 - 56 [facility] Anion gap 3 in Serum or Plasma 3.0 mmol/L 8.0 - 16.0 L [facility] 75 [facility] 26 mL/min [facility] AFR AMER GFR >60 [facility] Male GFR In terprentation 20-49 yrs >60 mL/min Normal 50-59 yrs >56 mL/min Normal 60-69 yrs >49 mL/min Normal 70-79yrs >42 mL/min Normal 80 and above >35 mL/min Normal Female GFR Interpretation 20-39 yrs >60 mL/min Normal 40-49 yrs >58 mL/min Normal 50-59 yrs >51 mL/min Normal 60-69 yrs >45 mL/min Normal 70-79 yrs >39 mL/min Normal 80 and above >32 mL/min Normal ID Date Data Source [id number] 06/05/2020 06:48:00 AM EDT [facility] Name Value Range Interpretation Code Description Data Ro rce(s) Supporting Document(s) BNP 3862 PG/ML 0 - 125 H [facility] booker ID Date Data Source [id number] 06/04/2020 03:24:00 PM EDT [facility] Name Value Range Interpretation Code Description Data Ro rce(s) Supporting Document(s) COMPREHENSIVE METABOLIC PANEL [facility] COMPREHENSIVE METABOLIC PANEL Sodium [Moles/volume] in Serum or Plasma 143 mEq/L 134 - 153 [facility] Potassium [Moles/volume] in Serum or Plasma 4.8 mEq/L 3.6 - 5.0 [facility] Chloride [Moles/volume] in Serum or Plasma 98 mEq/L 98 - 107 [facility] Carbon dioxide, total [Moles/volume] in Serum or Plasma 38 MEQ/L 22 - 30 H [facility] Glucose [Mass/volume] in Serum or Plasma 180 MG/DL 65 - 110 H [facility] BUN 43 MG/DL 7 - 21 [facility] Creatinine [Mass/volume] in Serum or Plasma 2.0 MG/DL 0.7 - 1.5 H [facility] BUN/CREAT 22 8 - 27 [facility] Protein [Mass/volume] in Serum or Plasma 4.9 G/DL 6.3 - 8.2 L [facility] Albumin [Mass/volume] in Serum or Plasma 3.3 G/DL 3.9 - 5.0 L [facility] Globulin [Mass/volume] in Serum by calculation 1.6 GM/DL 2.4 - 3.2 L [facility] A/G RATIO 2.1 0.8 - 2.0 H [facility] Calcium [Mass/volume] in Serum or Plasma 8.7 MG/DL 8.4 - 10.2 [facility] Bilirubin.total [Mass/volume] in Serum or Plasma <0.7 MG/DL 0.2 - 1.3 [facility] Alkaline phosphatase [Enzymatic activity/volume] in Serum or Plasma 57 U/L 38 - 126 [facility] Aspartate aminotransferase [Enzymatic activity/volume] in Se rum or Plasma 9 U/L 5 - 40 [facility] Alanine aminotransferase [Enzymatic activity/volume] in Seru m or Plasma 19 U/L 7 - 56 [facility] Anion gap 3 in Serum or Plasma 7.0 mmol/L 8.0 - 16.0 L [facility] AGE 75 yrs [facility] NON-AA GFR 26 mL/min [facility] booker AFR AMER GFR >60 [facility] Male GFR In terprentation 20-49 yrs >60 mL/min Normal 50-59 yrs >56 mL/min Normal 60-69 yrs >49 mL/min Normal 70-79yrs >42 mL/min Normal 80 and above >35 mL/min Normal Female GFR Interpretation 20-39 yrs >60 mL/min Normal 40-49 yrs >58 mL/min Normal 50-59 yrs >51 mL/min Normal 60-69 yrs >45 mL/min Normal 70-79 yrs >39 mL/min Normal 80 and above >32 mL/min Normal ID Date Data Source [id number] 06/04/2020 03:23:00 PM EDT [facility] Name Value Range Interpretation Code Description Data Ro rce(s) Supporting Document(s) BNP 3971 PG/ML 0 - 125 H [facility] ID Date Data Source [id number] 06/08/2020 03:30:00 PM EDT [facility] Name Value Range Interpretation Code Description Data Ro rce(s) Supporting Document(s) CULTURE SPUTUM [facility] _CULTURE SPUTUM_$$[id number]$$[id number]$$[id number]$$[id number]$$[id number]$$[id number]$$[id number]$$[id number]$$[id number]$ $[id number]$$[id number]$$[id number]$$[id number] DATE/TIME: 06/08/2020 15:06Culture: CULTURE SPUTUM Status: FinalWhite Blood Cells: [id number] Cells: [id number] 1: P1Many gram positive rods. -- Continued on next page --Patient: TR Whitley Order: [id number] Page 2Culture: CULTURE SPUTUM Status: Final ====Result 2: P1Few gram negative rods.Result 3: P1Few gram positive cocci in pairs, chains, and clustersGram Stain Evaluation: P1This specimen is of good quality and is acceptable for routinebacterial culture.Isolate 1 Diphtheroids Flag: . . . . . . .5Heavy growthSusceptibility not normally performed on this organism. Previous result entered on 06/08/2020 14:50 ET Diphtheroids Previous result entered on 06/07/2020 12:10 ET Microbiological testing to rule out the presence of possible pathogensis in progress.Lower Respiratory Culture: [id number] Test performed by: [facility] #: [id number] [address] [place] [address] [id number] [facility] [id number] Director : Shreyas Fontana MD NPI #:Drawer Waxer : 06/07/20.0612.XMT.SENT REF 06/07/20.1503.XMT.SENT REF 06/08/20.1530.XMT.SENT REF 06/08/20.1530.DW .to [facility] via modem ID Date Data Source [id number] 06/03/2020 07:38:00 AM EDT [facility] Name Value Range Interpretation Code Description Data Ro rce(s) Supporting Document(s) DORIAN TEST POSITIVE A [facility] FiO2 3 LPM [facility] SITE RADIAL RT [facility] pH of Arterial blood 7.40 7.34 - 7.44 [facility] Carbon dioxide [Partial pressure] in Blood 67.1 mm/HG 32.0 - 42.0 H [facility] Oxygen [Partial pressure] in Blood 78.0 mm/HG 75.0 - 100 [facility] Bicarbonate [Moles/volume] in Blood 40.9 meq/L 20.0 - 24.0 H [facility] TCO2 42.9 meq/L 21.0 - 25.0 H [facility] pital Base excess in Blood by calculation 14.2 -2.0 - 2.0 H [facility] O2 SAT 95.9 % 95.0 - 98.0 [facility] ID Date Data Source [id number] 06/03/2020 07:45:00 AM EDT [facility] Name Value Range Interpretation Code Description Data Ro rce(s) Supporting Document(s) CBC W/AUTOMATED DIFF [facility] COMPLETE BLOOD COUNT Leukocytes [#/volume] in Blood by Automated count 9.0 10^3/uL 4.2 - 1 1.0 [facility] Erythrocytes [#/volume] in Blood by Automated count 2.90 10^6/uL 4. 20 - 5.40 L [facility] Hemoglobin [Mass/volume] in Blood 8.7 g/dL 12.0 - 16.0 L [facility] Hematocrit [Volume Fraction] of Blood by Automated count 30.2 % 3 7.0 - 47.0 L [facility] Erythrocyte mean corpuscular volume [Entitic volume] b y Automated count 104.1 fL 81.0 - 101 H [facility] Erythrocyte mean corpuscular hemoglobin [Entitic mass] by Automated count 30.0 pg 27.0 - 34.0 [facility] Erythrocyte mean corpuscular hemoglobin concentration [Mass/volume] by Automated count 28.8 g/dL 31.0 - 36.0 L [facility] Erythrocyte distribution width [Ratio] by Automated count 17.3 % 11.5 - 14.5 H [facility] Platelets [#/volume] in Blood by Automated count 193 10^3/uL 150 - 45 0 [facility] Platelet mean volume [Entitic volume] in Blood by Automated count 10.2 fL 7.4 - 10.4 [facility] Neutrophils/100 leukocytes in Blood by Automated count 65.6 % 37. 0 - 80.0 [facility] Lymphocytes/100 leukocytes in Blood by Manual count 16.5 % 25.0 - 40.0 L [facility] Monocytes/100 leukocytes in Blood by Automated count 13.5 % 3.0 - 8.0 H [facility] Eosinophils/100 leukocytes in Blood by Automated count 2.2 % 0.0 - 7.0 [facility] Basophils/100 leukocytes in Blood by Automated count 0.1 % 0.0 - 2.5 [facility] %IG 2.1 % 0.0 - 0.0 H [facility] %NRBC 0.0 % 0.0 - 0.0 [facility] Neutrophils [#/volume] in Blood by Automated count 5.91 10^3/uL 2.00 - 6.90 [facility] Lymphocytes [#/volume] in Blood by Automated count 1.49 10^3/uL 0.60 - 3.40 [facility] Monocytes [#/volume] in Blood by Automated count 1.22 10^3/uL 0.00 - 0.90 H [facility] Eosinophils [#/volume] in Blood by Automated count 0.20 10^3/uL 0.00 - 0.70 [facility] Basophils [#/volume] in Blood by Automated count 0.01 10^3/uL 0.00 - 0.20 [facility] #IG 0.19 10^3/uL 0.00 - 0.10 H [facility] #NRBC 0.00 10^3/uL 0.00 - 0.00 [facility] MANUAL DIFF SEE BELOW [facility] ital Segmented neutrophils/100 leukocytes in Blood by Manual count 70 % 37 - 80 [facility] %LYMPH 17 % 25 - 40 L [facility] al %MONO 11 % 3 - 8 H [facility] %EOS 2 % 0 - 7 [facility] RBC MORPH SEE BELOW [facility] Anisocytosis [Presence] in Blood by Light microscopy 1+ FARRUKH L: NONE SEEN A [facility] Macrocytes [Presence] in Blood by Light microscopy 1+ NORMAL: NONE SEEN A [facility] Poikilocytosis [Presence] in Blood by Light microscopy 1+ NOR MAL: NONE SEEN A [facility] HYPO 1+ NORMAL: NONE SEEN A [facility] { SICKLE CELL (NORMAL: NONE SEEN ) Platelet adequacy [Presence] in Blood by Light microscopy NORMAL NORMAL: NORMAL [facility] COMMENT: ID Date Data Source [id number] 06/03/2020 07:39:00 AM EDT [facility] Name Value Range Interpretation Code Description Data Ro rce(s) Supporting Document(s) COMPREHENSIVE METABOLIC PANEL [facility] COMPREHENSIVE METABOLIC PANEL Sodium [Moles/volume] in Serum or Plasma 147 mEq/L 134 - 153 [facility] Potassium [Moles/volume] in Serum or Plasma 4.1 mEq/L 3.6 - 5.0 [facility] Chloride [Moles/volume] in Serum or Plasma 99 mEq/L 98 - 107 [facility] Carbon dioxide, total [Moles/volume] in Serum or Plasma 43 MEQ/L 22 - 30 HH [facility] CALL/ READ BACK DARIAN ON [facility] BY: CM [facility] DATE/TIME 06/03/20 0740 [facility] Glucose [Mass/volume] in Serum or Plasma 107 MG/DL 65 - 110 [facility] BUN 46 MG/DL 7 - 21 H [facility] Creatinine [Mass/volume] in Serum or Plasma 2.1 MG/DL 0.7 - 1.5 H [facility] BUN/CREAT 22 8 - 27 [facility] Protein [Mass/volume] in Serum or Plasma 5.0 G/DL 6.3 - 8.2 L [facility] Albumin [Mass/volume] in Serum or Plasma 3.1 G/DL 3.9 - 5.0 L [facility] Globulin [Mass/volume] in Serum by calculation 1.9 GM/DL 2.4 - 3.2 L [facility] A/G RATIO 1.6 0.8 - 2.0 [facility] Calcium [Mass/volume] in Serum or Plasma 8.5 MG/DL 8.4 - 10.2 [facility] Bilirubin.total [Mass/volume] in Serum or Plasma <0.7 MG/DL 0.2 - 1.3 [facility] Alkaline phosphatase [Enzymatic activity/volume] in Serum or Plasma 50 U/L 38 - 126 [facility] Aspartate aminotransferase [Enzymatic activity/volume] in Se rum or Plasma 9 U/L 5 - 40 [facility] Alanine aminotransferase [Enzymatic activity/volume] in Seru m or Plasma 22 U/L 7 - 56 [facility] Anion gap 3 in Serum or Plasma 5.0 mmol/L 8.0 - 16.0 L [facility] AGE 75 yrs [facility] NON-AA GFR 25 mL/min [facility] AFR AMER GFR >60 [facility] Male GFR In terprentation 20-49 yrs >60 mL/min Normal 50-59 yrs >56 mL/min Normal 60-69 yrs >49 mL/min Normal 70-79yrs >42 mL/min Normal 80 and above >35 mL/min Normal Female GFR Interpretation 20-39 yrs >60 mL/min Normal 40-49 yrs >58 mL/min Normal 50-59 yrs >51 mL/min Normal 60-69 yrs >45 mL/min Normal 70-79 yrs >39 mL/min Normal 80 and above >32 mL/min Normal ID Date Data Source [id number] 06/03/2020 07:10:00 AM EDT [facility] Name Value Range Interpretation Code Description Data Ro rce(s) Supporting Document(s) BNP 15298 PG/ML 0 - 125 H [facility] ID Date Data Source [id number] 06/03/2020 07:03:00 AM EDT [facility] Name Value Range Interpretation Code Description Data Ro rce(s) Supporting Document(s) Magnesium [Mass/volume] in Serum or Plasma 1.9 MG/DL 1.7 - 2.2 [facility] ID Date Data Source [id number] 06/02/2020 08:59:00 AM EDT [facility] [address] [place] [address] PHONE: [phone] FAX: [phone] Name .................. : TR Whitley Acct Number.................. : [id number] ROOM. ................. : 119-1 MR Number ................... : [id number] Stay type ............. : I/P Discharge Date......... ... : Admit Date ......... : 05/28/20 Admit Phys .................... : REY BEVERLY Date of ....... : 1945 Family Phys ................... : [place] Phone .................. : [phone] Age ................................ : 75 Film# .................. .:[id number] Sex ................................. : F Unsigned transcriptions are preliminary reports and do not represent a medical or legal document CHEST 2 VIEWS 18272 COMPLETE:06/02/20 06:08 RLB [id number] (REASON FOR CHEST: CHF P A & LATERAL CHEST, 06/02/20: Comparison is made to 06/01/20. FINDINGS: There is cardiomegaly. The perihilar vasculature is mildly engorged. There are mild bilateral perihilar and basilar infiltrates that appear stable. Small bilateral pleural effusions are stable. No pneumothorax is seen. Left-sided pacemaker is present with leads at the right atrium and ventricle. The bones are stable. IMPRESSION: Cardiomegaly. Stable mild CHF. Stable small bilateral pleural effusions. Electronically Reviewed and Signed By Burt Gardner MD , 06/02/20 08:59, TDS Transcribe Initials: GOLDEN, Transcribe Date: 06/02/20 07:48, Dictation Date: Copy for: 002 RUST Copy for: 710 [employer] REC Page 1 of 1 Name Value Range Interpretation Code Description Data Ro rce(s) Supporting Document(s) ID Date Data Source [id number] 06/02/2020 08:56:00 AM EDT [facility] [address] [place] [address] PHONE: [phone] FAX: [phone] Name .................. : TR Whitley Acct Number.................. : [id number] ROOM. ................. : 119-1 MR Number ................... : [id number] Stay type ............. : I/P Discharge Date......... ... : Admit Date ......... : 05/28/20 Admit Phys .................... : REY PAUL Date of ....... : 1945 Family Phys ................... : [place] Phone .................. : [phone] Age ................................ : 75 Film# .................. .:[id number] Sex ................................. : F Unsigned transcriptions are preliminary reports and do not represent a medical or legal document CHEST 2 VIEWS 42443 COMPLETE:06/01/20 12:02 SAIMA [id number] (REASON FOR CHEST: CHF CHEST PA AND LATERAL, 06/01/20: INDICATION: CHF. FINDINGS: Compared to 05/30/2020, the pacer leads are again noted to be in good position. The right lower lobe disease is a bit improved with a trace right effusion. Pulmonary venous hypertension. Cardiomegaly noted. No CHF. IMPRESSION: Improved pulmonary venous hypertension. Trace right effusion remains. Improved aeration in the right lower lobe. Electronically Reviewed and Signed By RASHAD LIAR MD , 06/02/20 08:56, [facility] Transcribe Initials: SSR, Transcribe Date: 06/01/20 13:16, Dictation Date: Copy for: 002 RUST Copy for: 710 [employer] REC Page 1 of 1 Name Value Range Interpretation Code Description Data Ro rce(s) Supporting Document(s) ID Date Data Source [id number] 06/02/2020 06:57:00 AM EDT [facility] Name Value Range Interpretation Code Description Data Ro rce(s) Supporting Document(s) DORIAN TEST NOT GIVEN [facility] booker FiO2 3L NC [facility] SITE BRACHIAL LT [facility] pH of Arterial blood 7.39 7.34 - 7.44 [facility] Carbon dioxide [Partial pressure] in Blood 68.2 mm/HG 32.0 - 42.0 H [facility] Oxygen [Partial pressure] in Blood 80.8 mm/HG 75.0 - 100 [facility] Bicarbonate [Moles/volume] in Blood 40.1 meq/L 20.0 - 24.0 H [facility] TCO2 42.2 meq/L 21.0 - 25.0 H [facility] p[facility] Base excess in Blood by calculation 13.2 -2.0 - 2.0 H [facility] O2 SAT 96.1 % 95.0 - 98.0 [facility] ital ID Date Data Source [id number] 06/02/2020 07:24:00 AM EDT [facility] Name Value Range Interpretation Code Description Data Ro rce(s) Supporting Document(s) CBC W/AUTOMATED DIFF [facility] COMPLETE BLOOD COUNT Leukocytes [#/volume] in Blood by Automated count 6.4 10^3/uL 4.2 - 1 1.0 [facility] Erythrocytes [#/volume] in Blood by Automated count 2.99 10^6/uL 4. 20 - 5.40 L [facility] Hemoglobin [Mass/volume] in Blood 8.9 g/dL 12.0 - 16.0 L [facility] Hematocrit [Volume Fraction] of Blood by Automated count 30.9 % 3 7.0 - 47.0 L [facility] Erythrocyte mean corpuscular volume [Entitic volume] b y Automated count 103.3 fL 81.0 - 101 H [facility] Erythrocyte mean corpuscular hemoglobin [Entitic mass] by Automated count 29.8 pg 27.0 - 34.0 [facility] Erythrocyte mean corpuscular hemoglobin concentration [Mass/volume] by Automated count 28.8 g/dL 31.0 - 36.0 L [facility] Erythrocyte distribution width [Ratio] by Automated count 16.7 % 11.5 - 14.5 H [facility] Platelets [#/volume] in Blood by Automated count 211 10^3/uL 150 - 45 0 [facility] Platelet mean volume [Entitic volume] in Blood by Automated count 10.3 fL 7.4 - 10.4 [facility] Neutrophils/100 leukocytes in Blood by Automated count 86.1 % 37. 0 - 80.0 H [facility] Lymphocytes/100 leukocytes in Blood by Manual count 5.9 % 25.0 - 40.0 L [facility] Monocytes/100 leukocytes in Blood by Automated count 1.6 % 3.0 - 8.0 L [facility] Eosinophils/100 leukocytes in Blood by Automated count 0.0 % 0.0 - 7.0 [facility] Basophils/100 leukocytes in Blood by Automated count 0.3 % 0.0 - 2.5 [facility] %IG 6.1 % 0.0 - 0.0 H [facility] %NRBC 0.3 % 0.0 - 0.0 H [facility] Neutrophils [#/volume] in Blood by Automated count 5.50 10^3/uL 2.00 - 6.90 [facility] Lymphocytes [#/volume] in Blood by Automated count 0.38 10^3/uL 0.60 - 3.40 L [facility] Monocytes [#/volume] in Blood by Automated count 0.10 10^3/uL 0.00 - 0.90 [facility] Eosinophils [#/volume] in Blood by Automated count 0.00 10^3/uL 0.00 - 0.70 [facility] Basophils [#/volume] in Blood by Automated count 0.02 10^3/uL 0.00 - 0.20 [facility] #IG 0.39 10^3/uL 0.00 - 0.10 H [facility] #NRBC 0.02 10^3/uL 0.00 - 0.00 H [facility] MANUAL DIFF SEE BELOW [facility] Segmented neutrophils/100 leukocytes in Blood by Manual count 91 % 37 - 80 H [facility] BAND 1 % 0 - 5 [facility] %LYMPH 3 % 25 - 40 L [facility] %MONO 2 % 3 - 8 L [facility] Metamyelocytes/100 leukocytes in Blood by Manual count 1 % [facility] Myelocytes/100 leukocytes in Blood by Manual count 2 % [facility] RBC MORPH SEE BELOW [facility] Anisocytosis [Presence] in Blood by Light microscopy 1+ FARRUKH L: NONE SEEN A [facility] Macrocytes [Presence] in Blood by Light microscopy 1+ NORMAL: NONE SEEN A [facility] Poikilocytosis [Presence] in Blood by Light microscopy 1+ NOR MAL: NONE SEEN A [facility] HYPO 1+ NORMAL: NONE SEEN A [facility] { SICKLE CELL (NORMAL: NONE SEEN ) Platelet adequacy [Presence] in Blood by Light microscopy NORMAL NORMAL: NORMAL [facility] COMMENT: ID Date Data Source [id number] 06/02/2020 07:01:00 AM EDT [facility] Name Value Range Interpretation Code Description Data Ro rce(s) Supporting Document(s) Magnesium [Mass/volume] in Serum or Plasma 1.9 MG/DL 1.7 - 2.2 [facility] ID Date Data Source [id number] 06/02/2020 07:00:00 AM EDT [facility] Name Value Range Interpretation Code Description Data Ro rce(s) Supporting Document(s) COMPREHENSIVE METABOLIC PANEL [facility] COMPREHENSIVE METABOLIC PANEL Sodium [Moles/volume] in Serum or Plasma 145 mEq/L 134 - 153 [facility] Potassium [Moles/volume] in Serum or Plasma 4.7 mEq/L 3.6 - 5.0 [facility] Chloride [Moles/volume] in Serum or Plasma 100 mEq/L 98 - 107 [facility] Carbon dioxide, total [Moles/volume] in Serum or Plasma 40 MEQ/L 22 - 30 H [facility] Glucose [Mass/volume] in Serum or Plasma 170 MG/DL 65 - 110 H [facility] BUN 38 MG/DL 7 - 21 H [facility] al Creatinine [Mass/volume] in Serum or Plasma 1.8 MG/DL 0.7 - 1.5 H [facility] BUN/CREAT 21 8 - 27 [facility] Protein [Mass/volume] in Serum or Plasma 5.2 G/DL 6.3 - 8.2 L [facility] Albumin [Mass/volume] in Serum or Plasma 3.2 G/DL 3.9 - 5.0 L [facility] Globulin [Mass/volume] in Serum by calculation 2.0 GM/DL 2.4 - 3.2 L [facility] A/G RATIO 1.6 0.8 - 2.0 [facility] Calcium [Mass/volume] in Serum or Plasma 8.4 MG/DL 8.4 - 10.2 [facility] Bilirubin.total [Mass/volume] in Serum or Plasma <0.7 MG/DL 0.2 - 1.3 [facility] Alkaline phosphatase [Enzymatic activity/volume] in Serum or Plasma 55 U/L 38 - 126 [facility] Aspartate aminotransferase [Enzymatic activity/volume] in Serum or Plasma 12 U/L 5 - 40 [facility] Alanine aminotransferase [Enzymatic activity/volume] in Seru m or Plasma 31 U/L 7 - 56 [facility] Anion gap 3 in Serum or Plasma 5.0 mmol/L 8.0 - 16.0 L [facility] 75 [facility] 29 mL/min [facility] AFR AMER GFR >60 [facility] Male GFR In terprentation 20-49 yrs >60 mL/min Normal 50-59 yrs >56 mL/min Normal 60-69 yrs >49 mL/min Normal 70-79yrs >42 mL/min Normal 80 and above >35 mL/min Normal Female GFR Interpretation 20-39 yrs >60 mL/min Normal 40-49 yrs >58 mL/min Normal 50-59 yrs >51 mL/min Normal 60-69 yrs >45 mL/min Normal 70-79 yrs >39 mL/min Normal 80 and above >32 mL/min Normal ID Date Data Source [id number] 06/01/2020 07:46:00 PM EDT [facility] [address] [place] [address] RESPIRATORY CARE REPORT ==== ---------NAME------- NUMBER SEX AGE ADMIT DISC. XRAY# F/C TYPEDUFFANY DONALD Whitley [id number] F 75 05/28/20 [id number] ME8 I/P DATE OF : 1945 M/R# [id number] #: [id number] [id number] LOCATION: EKG 70983 COMPLETE:06/01/20 1 1:16 [place] [address] PHYSICIAN: REY PAUL Name Value Range Interpretation Code Description Data Ro rce(s) Supporting Document(s) ID Date Data Source [id number] 06/01/2020 09:56:00 AM EDT [facility] Name Value Range Interpretation Code Description Data Ro rce(s) Supporting Document(s) DORIAN TEST NOT GIVEN [facility] FiO2 3 LNC [facility] SITE BRACHIAL LT [facility] pH of Arterial blood 7.33 7.34 - 7.44 L [facility] Carbon dioxide [Partial pressure] in Blood 79.5 mm/HG 32.0 - 42.0 [facility] CALL/ READ BACK TIMUR PATEL 1000 [facility] BY: ASHOK [facility] DATE/TIME [id number] 1647 [facility] ital Oxygen [Partial pressure] in Blood 87.1 mm/HG 75.0 - 100 [facility] Bicarbonate [Moles/volume] in Blood 40.9 meq/L 20.0 - 24.0 H [facility] TCO2 43.3 meq/L 21.0 - 25.0 H [facility] pital Base excess in Blood by calculation 12.0 -2.0 - 2.0 H [facility] O2 SAT 96.2 % 95.0 - 98.0 [facility] ital ID Date Data Source [id number] 06/01/2020 07:22:00 AM EDT [facility] Name Value Range Interpretation Code Description Data Ro rce(s) Supporting Document(s) CBC W/AUTOMATED DIFF [facility] COMPLETE BLOOD COUNT Leukocytes [#/volume] in Blood by Automated count 8.4 10^3/uL 4.2 - 1 1.0 [facility] Erythrocytes [#/volume] in Blood by Automated count 2.84 10^6/uL 4. 20 - 5.40 L [facility] Hemoglobin [Mass/volume] in Blood 8.6 g/dL 12.0 - 16.0 L [facility] Hematocrit [Volume Fraction] of Blood by Automated count 30.1 % 3 7.0 - 47.0 L [facility] Erythrocyte mean corpuscular volume [Entitic volume] b y Automated count 106.0 fL 81.0 - 101 H [facility] Erythrocyte mean corpuscular hemoglobin [Entitic mass] by Automated count 30.3 pg 27.0 - 34.0 [facility] Erythrocyte mean corpuscular hemoglobin concentration [Mass/volume] by Automated count 28.6 g/dL 31.0 - 36.0 L [facility] Erythrocyte distribution width [Ratio] by Automated count 16.7 % 11.5 - 14.5 H [facility] Platelets [#/volume] in Blood by Automated count 216 10^3/uL 150 - 45 0 [facility] Platelet mean volume [Entitic volume] in Blood by Automated count 10.0 fL 7.4 - 10.4 [facility] Neutrophils/100 leukocytes in Blood by Automated count 55.8 % 37. 0 - 80.0 [facility] Lymphocytes/100 leukocytes in Blood by Manual count 16.7 % 25.0 - 40.0 L [facility] Monocytes/100 leukocytes in Blood by Automated count 14.1 % 3.0 - 8.0 H [facility] Eosinophils/100 leukocytes in Blood by Automated count 6.7 % 0.0 - 7.0 [facility] Basophils/100 leukocytes in Blood by Automated count 0.4 % 0.0 - 2.5 [facility] %IG 6.3 % 0.0 - 0.0 H [facility] %NRBC 0.2 % 0.0 - 0.0 H [facility] al Neutrophils [#/volume] in Blood by Automated count 4.68 10^3/uL 2.00 - 6.90 [facility] Lymphocytes [#/volume] in Blood by Automated count 1.40 10^3/uL 0.60 - 3.40 [facility] Monocytes [#/volume] in Blood by Automated count 1.18 10^3/uL 0.00 - 0.90 H [facility] Eosinophils [#/volume] in Blood by Automated count 0.56 10^3/uL 0.00 - 0.70 [facility] Basophils [#/volume] in Blood by Automated count 0.03 10^3/uL 0.00 - 0.20 [facility] #IG 0.53 10^3/uL 0.00 - 0.10 H [facility] #NRBC 0.02 10^3/uL 0.00 - 0.00 H [facility] MANUAL DIFF SEE BELOW [facility] ital Segmented neutrophils/100 leukocytes in Blood by Manual count 56 % 37 - 80 [facility] %LYMPH 21 % 25 - 40 L [facility] %MONO 9 % 3 - 8 [facility] %EOS 7 % 0 - 7 [facility] al Metamyelocytes/100 leukocytes in Blood by Manual count 5 % [facility] Myelocytes/100 leukocytes in Blood by Manual count 2 % [facility] RBC MORPH SEE BELOW [facility] al Anisocytosis [Presence] in Blood by Light microscopy 1+ FARRUKH L: NONE SEEN A [facility] Macrocytes [Presence] in Blood by Light microscopy 1+ NORMAL: NONE SEEN A [facility] Poikilocytosis [Presence] in Blood by Light microscopy 1+ NOR MAL: NONE SEEN A [facility] HYPO 1+ NORMAL: NONE SEEN A [facility] { SICKLE CELL (NORMAL: NONE SEEN ) Platelet adequacy [Presence] in Blood by Light microscopy NORMAL NORMAL: NORMAL [facility] COMMENT: ID Date Data Source [id number] 06/01/2020 07:29:00 AM EDT [facility] Name Value Range Interpretation Code Description Data Ro rce(s) Supporting Document(s) COMPREHENSIVE METABOLIC PANEL [facility] COMPREHENSIVE METABOLIC PANEL Sodium [Moles/volume] in Serum or Plasma 145 mEq/L 134 - 153 [facility] Potassium [Moles/volume] in Serum or Plasma 4.8 mEq/L 3.6 - 5.0 [facility] Chloride [Moles/volume] in Serum or Plasma 99 mEq/L 98 - 107 [facility] Carbon dioxide, total [Moles/volume] in Serum or Plasma 42 MEQ/L 22 - 30 HH [facility] CALL/ READ BACK PAT ON [facility] BY: CM [facility] DATE/TIME 06/01/20 0730 [facility] Glucose [Mass/volume] in Serum or Plasma 95 MG/DL 65 - 110 [facility] BUN 44 MG/DL 7 - 21 H [facility] Creatinine [Mass/volume] in Serum or Plasma 1.9 MG/DL 0.7 - 1.5 H [facility] BUN/CREAT 23 8 - 27 [facility] al Protein [Mass/volume] in Serum or Plasma 4.9 G/DL 6.3 - 8.2 L [facility] Albumin [Mass/volume] in Serum or Plasma 3.1 G/DL 3.9 - 5.0 L [facility] Globulin [Mass/volume] in Serum by calculation 1.8 GM/DL 2.4 - 3.2 L [facility] A/G RATIO 1.7 0.8 - 2.0 [facility] Calcium [Mass/volume] in Serum or Plasma 8.8 MG/DL 8.4 - 10.2 [facility] Bilirubin.total [Mass/volume] in Serum or Plasma <0.7 MG/DL 0.2 - 1.3 [facility] Alkaline phosphatase [Enzymatic activity/volume] in Serum or Plasma 48 U/L 38 - 126 [facility] Aspartate aminotransferase [Enzymatic activity/volume] in Serum or Plasma 11 U/L 5 - 40 [facility] Alanine aminotransferase [Enzymatic activity/volume] in Seru m or Plasma 30 U/L 7 - 56 [facility] Anion gap 3 in Serum or Plasma 4.0 mmol/L 8.0 - 16.0 L [facility] AGE 75 yrs [facility] al NON-AA GFR 28 mL/min [facility] AFR AMER GFR >60 [facility] pital Male GFR In terprentation 20-49 yrs >60 mL/min Normal 50-59 yrs >56 mL/min Normal 60-69 yrs >49 mL/min Normal 70-79yrs >42 mL/min Normal 80 and above >35 mL/min Normal Female GFR Interpretation 20-39 yrs >60 mL/min Normal 40-49 yrs >58 mL/min Normal 50-59 yrs >51 mL/min Normal 60-69 yrs >45 mL/min Normal 70-79 yrs >39 mL/min Normal 80 and above >32 mL/min Normal ID Date Data Source [id number] 06/01/2020 07:25:00 AM EDT [facility] Name Value Range Interpretation Code Description Data Ro rce(s) Supporting Document(s) Magnesium [Mass/volume] in Serum or Plasma 1.6 MG/DL 1.7 - 2.2 L [facility] ID Date Data Source [id number] 05/31/2020 10:48:00 AM EDT [facility] Name Value Range Interpretation Code Description Data Ro rce(s) Supporting Document(s) Iron [Mass/volume] in Serum or Plasma 35 UG/DL 42 - 135 L [facility] ID Date Data Source [id number] 05/31/2020 06:53:00 AM T [facility] Name Value Range Interpretation Code Description Data Ro rce(s) Supporting Document(s) CBC W/AUTOMATED DIFF [facility] COMPLETE BLOOD COUNT Leukocytes [#/volume] in Blood by Automated count 10.9 10^3/uL 4.2 - 11.0 [facility] Erythrocytes [#/volume] in Blood by Automated count 3.04 10^6/uL 4. 20 - 5.40 L [facility] Hemoglobin [Mass/volume] in Blood 9.3 g/dL 12.0 - 16.0 L [facility] Hematocrit [Volume Fraction] of Blood by Automated count 32.3 % 3 7.0 - 47.0 L [facility] Erythrocyte mean corpuscular volume [Entitic volume] b y Automated count 106.3 fL 81.0 - 101 H [facility] Erythrocyte mean corpuscular hemoglobin [Entitic mass] by Automated count 30.6 pg 27.0 - 34.0 [facility] Erythrocyte mean corpuscular hemoglobin concentration [Mass/volume] by Automated count 28.8 g/dL 31.0 - 36.0 L [facility] Erythrocyte distribution width [Ratio] by Automated count 17.0 % 11.5 - 14.5 H [facility] Platelets [#/volume] in Blood by Automated count 270 10^3/uL 150 - 45 0 [facility] Platelet mean volume [Entitic volume] in Blood by Automated count 10.1 fL 7.4 - 10.4 [facility] Neutrophils/100 leukocytes in Blood by Automated count 62.4 % 37. 0 - 80.0 [facility] Lymphocytes/100 leukocytes in Blood by Manual count 12.1 % 25.0 - 40.0 L [facility] Monocytes/100 leukocytes in Blood by Automated count 12.4 % 3.0 - 8.0 H [facility] Eosinophils/100 leukocytes in Blood by Automated count 6.7 % 0.0 - 7.0 [facility] Basophils/100 leukocytes in Blood by Automated count 0.4 % 0.0 - 2.5 [facility] %IG 6.0 % 0.0 - 0.0 H [facility] %NRBC 0.3 % 0.0 - 0.0 H [facility] Neutrophils [#/volume] in Blood by Automated count 6.77 10^3/uL 2.00 - 6.90 [facility] Lymphocytes [#/volume] in Blood by Automated count 1.31 10^3/uL 0.60 - 3.40 [facility] Monocytes [#/volume] in Blood by Automated count 1.35 10^3/uL 0.00 - 0.90 H [facility] Eosinophils [#/volume] in Blood by Automated count 0.73 10^3/uL 0.00 - 0.70 H [facility] Basophils [#/volume] in Blood by Automated count 0.04 10^3/uL 0.00 - 0.20 [facility] #IG 0.65 10^3/uL 0.00 - 0.10 H [facility] #NRBC 0.03 10^3/uL 0.00 - 0.00 H [facility] MANUAL DIFF SEE BELOW [facility] ital Segmented neutrophils/100 leukocytes in Blood by Manual count 71 % 37 - 80 [facility] %LYMPH 10 % 25 - 40 L [facility] %MONO 9 % 3 - 8 H [facility] %EOS 8 % 0 - 7 H [facility] Myelocytes/100 leukocytes in Blood by Manual count 2 % [facility] RBC MORPH SEE BELOW [facility] Anisocytosis [Presence] in Blood by Light microscopy 1+ FARRUKH L: NONE SEEN A [facility] Microcytes [Presence] in Blood by Light microscopy 1+ NORMAL: NONE SEEN A [facility] HYPO 1+ NORMAL: NONE SEEN A [facility] Basophilic stippling [Presence] in Blood by Light microscopy 2+ NORMAL: NONE SEEN A [facility] { SICKLE CELL (NORMAL: NONE SEEN ) Platelet adequacy [Presence] in Blood by Light microscopy NORMAL NORMAL: NORMAL [facility] COMMENT: ID Date Data Source [id number] 05/31/2020 06:40:00 AM EDT [facility] Name Value Range Interpretation Code Description Data Ro rce(s) Supporting Document(s) Magnesium [Mass/volume] in Serum or Plasma 1.8 MG/DL 1.7 - 2.2 [facility] ID Date Data Source [id number] 05/31/2020 06:39:00 AM EDT [facility] Name Value Range Interpretation Code Description Data Ro rce(s) Supporting Document(s) COMPREHENSIVE METABOLIC PANEL [facility] COMPREHENSIVE METABOLIC PANEL Sodium [Moles/volume] in Serum or Plasma 146 mEq/L 134 - 153 [facility] Potassium [Moles/volume] in Serum or Plasma 5.6 mEq/L 3.6 - 5.0 H [facility] Chloride [Moles/volume] in Serum or Plasma 102 mEq/L 98 - 107 [facility] Carbon dioxide, total [Moles/volume] in Serum or Plasma 41 MEQ/L 22 - 30 HH [facility] VERIFIED BY REPEAT CALL/ READ BACK CALLED TO MARY GRACE [facility] BY: MARLYS [facility] DATE/TIME 0605-31-2020 [facility] Glucose [Mass/volume] in Serum or Plasma 100 MG/DL 65 - 110 [facility] BUN 52 MG/DL 7 - 21 H [facility] Creatinine [Mass/volume] in Serum or Plasma 2.2 MG/DL 0.7 - 1.5 H [facility] BUN/CREAT 24 8 - 27 [facility] Protein [Mass/volume] in Serum or Plasma 5.4 G/DL 6.3 - 8.2 L [facility] Albumin [Mass/volume] in Serum or Plasma 3.4 G/DL 3.9 - 5.0 L [facility] Globulin [Mass/volume] in Serum by calculation 2.0 GM/DL 2.4 - 3.2 L [facility] A/G RATIO 1.7 0.8 - 2.0 [facility] Calcium [Mass/volume] in Serum or Plasma 9.4 MG/DL 8.4 - 10.2 [facility] Bilirubin.total [Mass/volume] in Serum or Plasma <0.7 MG/DL 0.2 - 1.3 [facility] Alkaline phosphatase [Enzymatic activity/volume] in Serum or Plasma 54 U/L 38 - 126 [facility] Aspartate aminotransferase [Enzymatic activity/volume] in Serum or Plasma 15 U/L 5 - 40 [facility] Alanine aminotransferase [Enzymatic activity/volume] in Seru m or Plasma 43 U/L 7 - 56 [facility] Anion gap 3 in Serum or Plasma 3.0 mmol/L 8.0 - 16.0 L [facility] AGE 75 yrs [facility] al NON-AA GFR 23 mL/min [facility] AFR AMER GFR >60 [facility] Male GFR In terprentation 20-49 yrs >60 mL/min Normal 50-59 yrs >56 mL/min Normal 60-69 yrs >49 mL/min Normal 70-79yrs >42 mL/min Normal 80 and above >35 mL/min Normal Female GFR Interpretation 20-39 yrs >60 mL/min Normal 40-49 yrs >58 mL/min Normal 50-59 yrs >51 mL/min Normal 60-69 yrs >45 mL/min Normal 70-79 yrs >39 mL/min Normal 80 and above >32 mL/min Normal ID Date Data Source [id number] 05/31/2020 01:31:00 [place] [address] RESPIRATORY CARE REPORT ==== ---------NAME------- NUMBER SEX AGE ADMIT DISC. XRAY# F/C TYPEMARGARETCINDY Whitley [id number] F 75 05/28/20 [id number] ME8 I/P DATE OF : 1945 M/R# [id number] PH#: [id number] 119-1 LOCATION: EKG 18747 COMPLETE:05/30/20 0 8:24 M 18702 PHYSICIAN: REY PAUL Name Value Range Interpretation Code Description Data Ro rce(s) Supporting Document(s) ID Date Data Source [id number] 05/30/2020 03:11:00 [place] [address] PHONE: [phone] FAX: [phone] Name .................. : PATRICIADEVI Whitley Acct Number.................. : [id number] ROOM. ................. : 119-1 Number ................... : [id number] Stay type ............. : I/P Discharge Date......... ... : Admit Date ......... : 05/10 Admit Phys .................... : REY BEVERLY Date of ....... : 1945 Family Phys ................... : [id number] Phone .................. : [phone] Age ................................ : 75 Film# .................. .:[id number] Sex ................................. : F Unsigned transcriptions are preliminary reports and do not represent a medical or legal document CHEST 2 VIEWS 35634 COMPLETE:05/29/20 06:10 DLA 71672 (REASON FOR CHEST: CHF CHEST X-RAY: 2-VIEWS INDICATION: CHF. FINDINGS: The lungs are well-expanded with moderate pulmonary vascular congestion. There is a small left pleural effusion. The cardiac silhouette is at the upper limits of normal in size. There is a left-sided cardiac conduction device. No acute osseous abnormality. IMPRESSION: Stable pulmonary vascular congestion. Enlarging right effusion. Bibasilar scarring and atelectasis noted. Electronically Reviewed and Signed By Robert Gilliland M.D. , 05/30/20 15:11, [facility] Transcribe Initials: KIRIT , Transcribe Date: 05/29/20 22:02, Dictation Date: Copy for: 002 RUST Copy for: 710 [employer] REC Page 1 of 1 Name Value Range Interpretation Code Description Data Ro rce(s) Supporting Document(s) ID Date Data Source [id number] 05/30/2020 03:00:00 PM EDT [facility] [address] [place] [address] PHONE: [phone] FAX: [phone] Name .................. : TR Whitley Acct Number.................. : [id number] ROOM. ................. : 119-1 MR Number ................... : [id number] Stay type ............. : I/P Discharge Date......... ... : Admit Date ......... : 05/10 Admit Phys .................... : REY BEVERLY Date of ....... : 1945 Family Phys ................... : [id number] Phone .................. : [phone] Age ................................ : 75 Film# .................. .:[id number] Sex ................................. : F Unsigned transcriptions are preliminary reports and do not represent a medical or legal document CHEST 2 VIEWS 90914 COMPLETE:05/30/20 06:35 DLA 16617 (REASON FOR CHEST: CHF CHEST TWO VIEWS, 05/30/20: Comparison is May 29, 2020. FINDINGS: Frontal and lateral views of the chest were performed. COPD changes and cardiomegaly are noted. Bibasilar air space disease suspicious for CHF and/or pneumonic infiltrates are noted. There are small bilateral pleural effusions. There is no pneumothorax or acute osseous abnormality. IMPRESSION: COPD. Cardiomegaly. Bibasilar air space disease and pleural effusions, likely CHF, however pneumonia cannot be excluded. No significant change noted. Electronically Reviewed and Signed By Viet Parra MD , 05/30/20 15:00, [facility] Transcribe Initials: SSR, Transcribe Date: 05/30/20 12:35, Dictation Date: Copy for: 002 RUST Copy for: 710 [facility] Page 1 of 1 Name Value Range Interpretation Code Description Data Ro rce(s) Supporting Document(s) ID Date Data Source [id number] 05/30/2020 07:35:00 AM EDT [facility] Name Value Range Interpretation Code Description Data Ro rce(s) Supporting Document(s) CBC W/AUTOMATED DIFF [facility] COMPLETE BLOOD COUNT Leukocytes [#/volume] in Blood by Automated count 12.7 10^3/uL 4.2 - 11.0 H [facility] Erythrocytes [#/volume] in Blood by Automated count 3.08 10^6/uL 4. 20 - 5.40 L [facility] Hemoglobin [Mass/volume] in Blood 9.4 g/dL 12.0 - 16.0 L [facility] Hematocrit [Volume Fraction] of Blood by Automated count 32.7 % 3 7.0 - 47.0 L [facility] Erythrocyte mean corpuscular volume [Entitic volume] b y Automated count 106.2 fL 81.0 - 101 H [facility] Erythrocyte mean corpuscular hemoglobin [Entitic mass] by Automated count 30.5 pg 27.0 - 34.0 [facility] Erythrocyte mean corpuscular hemoglobin concentration [Mass/volume] by Automated count 28.7 g/dL 31.0 - 36.0 L [facility] Erythrocyte distribution width [Ratio] by Automated count 17.2 % 11.5 - 14.5 H [facility] Platelets [#/volume] in Blood by Automated count 314 10^3/uL 150 - 45 0 [facility] Platelet mean volume [Entitic volume] in Blood by Automated count 10.1 fL 7.4 - 10.4 [facility] Neutrophils/100 leukocytes in Blood by Automated count 58.5 % 37. 0 - 80.0 [facility] Lymphocytes/100 leukocytes in Blood by Manual count 15.1 % 25.0 - 40.0 L [facility] Monocytes/100 leukocytes in Blood by Automated count 12.7 % 3.0 - 8.0 H [facility] Eosinophils/100 leukocytes in Blood by Automated count 5.3 % 0.0 - 7.0 [facility] Basophils/100 leukocytes in Blood by Automated count 0.7 % 0.0 - 2.5 [facility] %IG 7.7 % 0.0 - 0.0 H [facility] %NRBC 0.9 % 0.0 - 0.0 H [facility] Neutrophils [#/volume] in Blood by Automated count 7.41 10^3/uL 2.00 - 6.90 H [facility] Lymphocytes [#/volume] in Blood by Automated count 1.91 10^3/uL 0.60 - 3.40 [facility] Monocytes [#/volume] in Blood by Automated count 1.61 10^3/uL 0.00 - 0.90 H [facility] Eosinophils [#/volume] in Blood by Automated count 0.67 10^3/uL 0.00 - 0.70 [facility] Basophils [#/volume] in Blood by Automated count 0.09 10^3/uL 0.00 - 0.20 [facility] #IG 0.98 10^3/uL 0.00 - 0.10 H [facility] #NRBC 0.11 10^3/uL 0.00 - 0.00 H [facility] MANUAL DIFF SEE BELOW [facility] Segmented neutrophils/100 leukocytes in Blood by Manual count 67 % 37 - 80 [facility] BAND 1 % 0 - 5 [facility] %LYMPH 14 % 25 - 40 L [facility] %MONO 7 % 3 - 8 [facility] %EOS 11 % 0 - 7 H [facility] Nucleated erythrocytes/100 erythrocytes in Blood by Manual count 1 % [facility] RBC MORPH SEE BELOW [facility] al Anisocytosis [Presence] in Blood by Light microscopy 1+ FARRUKH L: NONE SEEN A [facility] Macrocytes [Presence] in Blood by Light microscopy 1+ NORMAL: NONE SEEN A [facility] Poikilocytosis [Presence] in Blood by Light microscopy 1+ NOR MAL: NONE SEEN A [facility] HYPO 1+ NORMAL: NONE SEEN A [facility] Polychromasia [Presence] in Blood by Light microscopy 1+ NORM AL: NONE SEEN A [facility] { SICKLE CELL (NORMAL: NONE SEEN ) Platelet adequacy [Presence] in Blood by Light microscopy NORMAL NORMAL: NORMAL [facility] COMMENT: ID Date Data Source [id number] 05/30/2020 07:28:00 AM EDT [facility] Name Value Range Interpretation Code Description Data Ro rce(s) Supporting Document(s) COMPREHENSIVE METABOLIC PANEL [facility] COMPREHENSIVE METABOLIC PANEL Sodium [Moles/volume] in Serum or Plasma 144 mEq/L 134 - 153 [facility] Potassium [Moles/volume] in Serum or Plasma 5.2 mEq/L 3.6 - 5.0 H [facility] Chloride [Moles/volume] in Serum or Plasma 101 mEq/L 98 - 107 [facility] Carbon dioxide, total [Moles/volume] in Serum or Plasma 39 MEQ/L 22 - 30 H [facility] Glucose [Mass/volume] in Serum or Plasma 90 MG/DL 65 - 110 [facility] [facility] [place] BUN 59 MG/DL 7 - 21 [facility] Creatinine [Mass/volume] in Serum or Plasma 2.3 MG/DL 0.7 - 1.5 [facility] [place] BUN/CREAT 26 8 - 27 [facility] Protein [Mass/volume] in Serum or Plasma 5.6 G/DL 6.3 - 8.2 L [facility] [place] Albumin [Mass/volume] in Serum or Plasma 3.5 G/DL 3.9 - 5.0 L [facility] Globulin [Mass/volume] in Serum by calculation 2.1 GM/DL 2.4 - 3.2 L [facility] A/G RATIO 1.7 0.8 - 2.0 [facility] Calcium [Mass/volume] in Serum or Plasma 8.9 MG/DL 8.4 - 10.2 [facility] Bilirubin.total [Mass/volume] in Serum or Plasma <0.7 MG/DL 0.2 - 1.3 [facility] Alkaline phosphatase [Enzymatic activity/volume] in Serum or Plasma 52 U/L 38 - 126 [facility] Aspartate aminotransferase [Enzymatic activity/volume] in Serum or Plasma 20 U/L 5 - 40 [facility] Alanine aminotransferase [Enzymatic activity/volume] in Seru m or Plasma 53 U/L 7 - 56 [facility] Anion gap 3 in Serum or Plasma 4.0 mmol/L 8.0 - 16.0 L [facility] [place] [facility] 75 [facility] 22 mL/min [facility] AFR AMER GFR >60 [facility] Male GFR In terprentation 20-49 yrs >60 mL/min Normal 50-59 yrs >56 mL/min Normal 60-69 yrs >49 mL/min Normal 70-79yrs >42 mL/min Normal 80 and above >35 mL/min Normal Female GFR Interpretation 20-39 yrs >60 mL/min Normal 40-49 yrs >58 mL/min Normal 50-59 yrs >51 mL/min Normal 60-69 yrs >45 mL/min Normal 70-79 yrs >39 mL/min Normal 80 and above >32 mL/min Normal ID Date Data Source [id number] 05/30/2020 07:28:00 AM EDT [facility] Name Value Range Interpretation Code Description Data Ro rce(s) Supporting Document(s) Magnesium [Mass/volume] in Serum or Plasma 1.8 MG/DL 1.7 - 2.2 [facility] ID Date Data Source [id number] 05/30/2020 03:10:00 [place] [address] RESPIRATORY CARE REPORT ==== ---------NAME------- NUMBER SEX AGE ADMIT DISC. XRAY# F/C BENCINDY Whitley [id number] F 75 05/28/20 [id number] I/P DATE OF : 1945 M/R# [id number] #: [id number] LOCATION: EKG [id number] COMPLETE:05/29/20 0 8:15 [facility] [address] PHYSICIAN: REY PAUL Name Value Range Interpretation Code Description Data Ro rce(s) Supporting Document(s) ID Date Data Source [id number] 05/27/2020 10:38:00 [place] [address] PROGRESS NOTENAME: TR Whitley ROOM#: [id number] OF : 1945 MR#: [id number] DATE: 05/22/20 OF SERVICE: 05/27/20UBJECTIVE: This patient dyspnea and wheezing have improved. Her appetite is fair. ROS: There is nodizziness, syncope, visual loss, diplopia or headache. There is no chest pain. No chills or fever. No cough orhemoptysis. No bowel disturbance. She has ankle edema.OBJECTIVE: On exam, moderately built. Blood pressure is 140/80. Head is normal. Heart rate is 70. Lungsare clear. Abdomen is soft. 1+ edema in the legs.LABORATORY DATA: Hemoglobin is 9.1. White count is 12.6. Sodium is 138, potassium is 4.9,BUN is 85, creatinine is 2.6.ASSES SMENT/PLAN: Her BUN and creatinine have improved. Yesterday, it was 87. BUN today is85. Patient has the following issues: 1. Renal failure 2. Congestive heart failure 3. Ankle edemaPLAN:1. Plan to give Lasix 1 dose of 40 mg today IV. We will continue IV fluids.2. Will give IV fluids with half normal saline with 1 ampoule of bicarb at 60-80 cc/hr IV. Her kidney functions are improving.DD: Silver Peterson MD, PC 05/27/20 12:02DT: RAMIRO 05/27/20 22:32DS: Silver Peterson MD, PC 05/29/20 12:06 1 Name Value Range Interpretation Code Description Data Ro rce(s) Supporting Document(s) ID Date Data Source [id number] 05/26/2020 11:50:00 [place] [address] PROGRESS NOTENAME: TR Whitley ROOM#: [id number] OF : 1945 MR#: [id number] DATE: 05/22/20 OF SERVICE: 05/26/20UBJECTIVE: This patient has known history of congestive heart failure and renal failure. The dyspnea andwheezing is better. Patient is on IV fluid. ROS: There is no history of any dizziness, syncope, visual loss,diplopia or headache. There is no orthopnea or paroxysmal nocturnal dyspnea. No chills or fever. No cough orhemoptysis. No bowel disturbance. No urinary problem. No ankle edema.OBJECTIVE: On exam, moderately built. Blood pressure is 110/80. Head is normal. Heart rate is 60. Lungsare clear. Abdomen is soft. Extremities with no pitting edema.LABORATORY DATA: Sodium is 137, potassium is 5.1, BUN is 87, creatinine is 3.1. Serumcalcium is 6.9. Hemoglobin is 8.3.ASSESSMENT: Patient has the following issues:1. Renal failure2. Congestive heart failure3. Hypocalcemia4. AnemiaPLAN: Plan is to give calcium gluconate 10 cc IV for hypoglycemia. We will continue IV fluid withhalf normal saline and 1 ampoule of bicarb at 80 cc/hr. She has urinary output of 900 cc in the past 24hours, but her BUN and creatinine are dropping. Solu-Medrol is being tapered to 62.5 mg daily. A CTscan of the chest is being planned for congestive heart failure.DD: Silver Peterson MD, PC 05/26/20 09:26DT: DMZ 05/26/20 23:45DS: Silver Peterson MD, PC 05/29/20 12:06 1 Name Value Range Interpretation Code Description Data Ro rce(s) Supporting Document(s) ID Date Data Source [id number] 05/25/2020 11:03:00 [place] [address] PROGRESS NOTENAME: TR Whitley ROOM#: [id number] OF : 1945 MR#: [id number] DATE: 05/22/20 OF SERVICE: 05/25/2020SUBJECTIVE:Patient has known history of congestive heart failure. She is taking Lasix IV. Dyspnea and wheezinghave improved. ROS: No chills or fever. No cough or hemoptysis. No bowel disturbance. No ankleedema.OBJECTIVE:On exam, moderately built. Blood pressure was 130/80. Head is normal. Heart rate 70. Lungs arediminished at the right base. Abdomen soft. Extremities normal.LABORATORY DATA:Lab tests showed hemoglobin 8.8. BUN was 70, creatinine 3.2 yesterday. Today's blood tests areawaited.ASSESSMENT:Patient has the following issues:1. Congestive heart failure.2. Renal failure.PLAN:The plan is to give normal saline at 250 cc/hour. This was stopped, waiting for labs today. Normalsaline will be given 250 cc IV over three hours. PT/OT will be done. Patient is responding to themedical therapy.DD: Silver Peterson MD, PC 05/25/20 07:17DT: SSR 05/25/20 11:03DS: Silver Peterson MD, PC 05/29/20 12:06 1 Name Value Range Interpretation Code Description Data Ro rce(s) Supporting Document(s) ID Date Data Source [id number] 05/24/2020 11:05:00 [place] [address] PROGRESS NOTENAME: TR Whitley ROOM#: [id number] OF : 1945 MR#: [id number] DATE: 05/22/20 OF SERVICE: 05/24/20UBJECTIVE: This is a patient with anemia, renal failure and congestive heart failure. The dyspnea andwheezing are improved. ROS: There is no history of any dizziness, syncope, visual loss, diplopia or headache.Denies any orthopnea or paroxysmal nocturnal dyspnea. No chills or fever. No cough or hemoptysis. Nobowel disturbance. The ankle edema is improved.OBJECTIVE: On exam, moderately built. Blood pressure is 140/80. Head is normal. Heart is regular sinusrhythm. Lungs with diminished air entry in the right base. Abdomen is soft. Extremities with 1+ pittingedema. Neurology normal.LABORATORY DATA: White count is 12. Hemoglobin is 8.8. Potassium is 5.3. BUN is 70.Creatinine is 3.2.ASSESSMENT: Patient has the following issues:1. Congestive heart failure2. Hyperkalemia3. Acute on chronic renal failurePLAN: Plan is to discontinue the Lasix drip, discontinue KCL. Kayexalate 15 gram p.o. is being givenfor high serum potassium. Normal saline is being given at 250 cc IV bolus for renal failure. Prognosisguarded.DD: Silver Peterson MD, PC 05/24/20 09:43DT: RAMIRO 9/16/20 22:57DS: Silver Peterson MD, PC 05/29/20 12:06 1 Name Value Range Interpretation Code Description Data Ro rce(s) Supporting Document(s) ID Date Data Source [id number] 05/23/2020 11:37:00 PM EDT [address] [address] PROGRESS NOTENAME: TR Whitley ROOM#: [id number] OF : 1945 MR#: [id number] DATE: 05/22/20 OF SERVICE: 05/23/20UBJECTIVE: This patient came in congestive heart failure. He is on a Lasix drip. He also is in renal failure.ROS: The patient denies any dizziness or syncope. The dyspnea is better. No chills or fever. No cough orhemoptysis. No bowel disturbance. He has ankle edema. He has orthopnea.OBJECTIVE: On exam, moderately built. Blood pressure is 120/80. Head is normal. Heart rate is 70. Lungswith rales at the bases. Abdomen is soft. Legs with 2+ pitting edema.LABORATORY DATA: BNP is 35,000. Sodium is 138, potassium is 4.9, BUN is 40, creatinine is2.3. ABG shows pH of 7.41, pCO2 of 63, pO2 of 46. Troponin was 0.15, slightly elevated. Lactic acidis 2.2. Hemoglobin is 10.2.ASSESSMENT: Patient has the following issues:1. Congestive heart failure.2. Anemia.3. Elevated BNP.PLAN: Plan is to continue the Lasix drip at 10 mg/hr IV. She has COPD. We will give her low dose ofmethylprednisolone. We will continue metoprolol as a beta alberto. Blood sugar will be monitoredclosely. BUN and creatinine are high. SONALI inhibitor is not being given. Her ejection fraction is 40-50%.DD: Silver Peterson MD, PC 05/23/20 09:37DT: RAMIRO 05/23/20 23:17DS: Silver Peterson MD, PC 05/29/20 12:06 1 Name Value Range Interpretation Code Description Data Ro rce(s) Supporting Document(s) ID Date Data Source [id number] 05/22/2020 12:07:00 [place] [address] HISTORY AND PHYSICALNAME: TR Whitley ROOM#: [id number] OF : 1945 MR#: [id number] PHYS: Silver Peterson MD, PC DATE: 05/22/20CHIEF COMPLAINT: This 74-year-old female complains of dyspnea, orthopnea, ankle edema, weakness,dizziness.HISTORY OF PRESENT ILLNESS:This patient has not been doing well for the last few days. She complains of tiredness, fatigue, dyspnea afterminimal exertion, ankle edema. She complains of weakness. She complains of significantly more dyspnea andcould not walk.MEDICATIONS: 1. Gabapentin 100 mg t.i.d. 2. Protonix 40 mg daily 3. Lipitor 20 mg daily 4. Amiodarone 200 mg daily 5. Metoprolol tartrate 25 mg daily 6. Furosemide 40 mg daily 7. Metformin 1000 mg b.i.d. 8. Folic acid dailyREVIEW OF SYSTEMS:The patient has significant orthopnea and paroxysmal nocturnal dyspnea. She cannot lay flat. She isdizzy when she walks. There are no chills or fever. No cough or hemoptysis. No bowel disturbance.She has ankle edema. No hematemesis or melena. No syncope. Patient has known history of atrialfibrillation with slow ventricular rate.PAST MEDICAL HISTORY:The patient has a permanent pacemaker. The patient was admitted on 09/19/19 for dyspnea, COPD,atrial fibrillation. She has known history of cholecystectomy, appendectomy, hysterectomy, history ofCOPD, history of aortic regurgitation, history of mitral regurgitation, history of mitral valve repair andmitral valve ring surgery at [facility] on 04/04/20. She has known history of COPD, historyof chronic kidney failure, history of cardiomyopathy, history of hypertension, history of anemia.PERSONAL HISTORY:Patient smokes half pack.FAMILY HISTORY:Father and mother both had heart disease.PHYSICAL EXAMINATION: [address] [place] [id number] HISTORY AND PHYSICAL NAME: TR Whitley ROOM#: [id number] DATE OF : 1945 MR#: [id number] ATTENDING PHYS: Silver Peterson MD, PC ADMISSION DATE: 05/22/20GENERAL: Moderately-built.VITAL SIGNS: Blood pressure is 130/80. Pulse was 70. Temperature 98. Respirations 18.HEENT: Head and eyes are normal. Pupils and fundus reveal grade 2 changes. Mouth normal. Tonguedry.NECK: Supple. No lymphadenopathy. Thyroid not enlarged. Neck veins are not distended. No carotidbruits.CHEST: Symmetrical.HEART: Rate is 70 beats per minute. There is a grade 1 systolic murmur at the base.LUNGS: Rales at the bases.ABDOMEN: Soft and nontender.EXTREMITIES: 2+ edema.NEUROLOGICAL: Normal.IMPRESSION: 1. Congestive heart failure. 2. Status post open heart surgery. 3. Status post mitral valve repair with mitral valve ring. 4. History of atrial fibrillation. 5. History of permanent pacemaker. 6. History of Watchman device.PLAN:This patient presented with congestive heart failure and COPD. We will give IV Lasix drip at 10 mg/hr.Patient is in renal failure. Creatinine is 2.6. It will be difficult to diurese here, but we will try the Lasix drip.We will monitor closely. Galvan catheter will be inserted, if indicated.DD: Silver Peterson MD, 05/22/20 17:15DT: RAMIRO 05/22/20 23:53DS: Silver Peterson MD, PC 05/29/20 12:06 2 Name Value Range Interpretation Code Description Data Ro rce(s) Supporting Document(s) ID Date Data Source [id number] 05/29/2020 10:49:00 [place] [address] DISCHARGE SUMMARYNAME: TR Whitley ROOM#: [id number] OF : 1945 MR#: [id number] PHYS: Silver Peterson MD, PC DATE: 05/22/20 DISCHARGED: 05/28/20DISCHARGE TO SWING BED.HISTORY OF PRESENT ILLNESS:This is a 74-year-old white female who presented with dyspnea, orthopnea, ankle edema, weakness,chest pain, congestive heart failure. She received a Lasix drip, went into kidney failure, and was givenIV saline to improve kidney function. Patient has a history of coronary artery disease, coronary bypass,permanent pacemaker. She has had a mitral valve repair, mitral valve ring, and tricuspid ring fortricuspid regurgitation. She had surgery done in [facility] several months ago. On exam,blood pressure 130/80, pulse was 70. Head was normal. Neck was distended. Heart regular sinusrhythm. Lungs had rales at the bases. Abdomen soft. Admission impression of congestive heart failure,systolic ejection fraction 40-50%, status post open heart surgery, mitral valve repair with mitral valvering and tricuspid valve ring, history of atrial fibrillation with permanent pacemaker, history ofWatchman device.LABORATORY STUDIES:Initial lab tests showed that the x-ray did show congestive failure, cardiomegaly, pulmonary venouscongestion, bilateral atelectasis, bilateral pleural effusion. EKG showed paced rhythm. Lab testsshowed T4 and TSH were normal. Patient was on amiodarone, we wanted to be sure the thyroid panelswere good. Magnesium 1.8, iron level 87, sodium 138, potassium 4.9, BUN 40, creatinine 2.3. She hadrenal dysfunction at the start of it. Troponin was 0.15, lactic acid 2.2. ABG showed pH 7.41, pO2 63.8,pCO2 46. On 05/22, sodium 138, potassium 4.9, creatinine 2.3, hemoglobin 10.2. On 05/23, potassium5.3, BUN 47, creatinine 2.5, hemoglobin 9.8, LDL 78, hemoglobin A1c 5. On 05/24, potassium 5.3,BUN 70, creatinine 3.2. Patient went into renal failure from possible Lasix drip from diabetes, so weput her on IV fluid half normal with 1 ampule of bicarb 80 cc/hour. On 05/25, BUN 87, creatinine 3.4,hemoglobin 8.8. On 05/26, BUN 87, creatinine 3.1. IV fluid did improve the kidney function. Ironlevel was 48 on 05/26. On 05/27, BUN 85, creatinine 2.6, is much better, hemoglobin 9.1. On 05/28,hemoglobin 9.3, white count 12,000, potassium 5.1, BUN 78, creatinine 2.4. Kidney functionimproved with the IV fluid.COURSE DURING HOSPITALIZATION:Patient was put on classroom monitor, 2 L of oxygen per minute nasal cannula, amiodarone 200 mgdaily taking for atrial fib, metoprolol 25 mg bid, Lasix drip 10 mg/hour IV, metformin 1000 bid whichwas subsequently stopped, Solu-Medrol 62.5 mg eight hourly IV. Dyspnea improved. Lung exambecame much clearer, chest x-ray much clearer. Procrit was given 20,000 units for anemia. On 05/25,BUN and creatinine went up, Lasix drip was stopped, patient was given normal saline 250 cc/hour IVover three hours. Subsequently, she was put on half normal saline on 05/25 with 1 ampule of bicarb 80cc/hour, which improved the kidney function. CAT scan of the chest did show minimal congestivechanges. Solu-Medrol was gradually tapered and cut down to 62.5 mg once a day. The patient [address] [place] [address] DISCHARGE SUMMARYNAME: TR Whitley ROOM#: [id number] OF : 1945 MR#: [id number] PHYS: Silver Peterson MD, PC DATE: 05/22/20 DISCHARGED: 05/28/20improved, much better. On 05/28, she had improved quite a bit. It was decided to discharge her toSWING bed.FINAL DIAGNOSES:1. CONGESTIVE HEART FAILURE, SYSTOLIC EJECTION 40-50%.2. STATUS POST OPEN HEART SURGERY.3. STATUS POST MITRAL VALVE REPAIR WITH MITRAL VALVE RING AND TRICUSPID VALVE RING.4. HISTORY OF ATRIAL FIBRILLATION.5. HISTORY OF PERMANENT PACEMAKER, WATCHMAN DEVICE.6. HISTORY OF ACUTE ON CHRONIC RENAL FAILURE.DD: Silver Peterson MD, PC 05/28/20 12:17DT: GOLDEN 05/29/20 10:49DS: Silver Peterson MD, PC 05/29/20 12:06 2 Name Value Range Interpretation Code Description Data Ro rce(s) Supporting Document(s) ID Date Data Source [id number] 05/29/2020 10:26:00 AM EDT [facility] [address] [place] [address] PHONE: [phone] FAX: [phone] Name .................. : TR Whitley Acct Number.................. : [id number] ROOM. ................. : [address] Number ................... : [id number] Stay type ............. : I/P Discharge Date......... ... : Admit Date ......... : 05/22/20 Admit Phys .................... : REY BEVERLY Date of ....... : 1945 Family Phys ................... : [id number] Phone .................. : [phone] Age ................................ : 75 Film# .................. .:[id number] Sex ................................. : F Unsigned transcriptions are preliminary reports and do not represent a medical or legal document CT THORAX W/O CONTRAST [id number] COMPLETE:05/26/20 12:04 RLB [id number] (REASON FOR CHEST: CHF CT OF THE THORAX WITHOUT CONTRAST ENHANCEMENT: HISTORY: CHF. FINDINGS: The thoracic inlet demonstrate atherosclerotic calcification throughout the aorta. There are pacer leads present and in good position. Some bibasilar atelectasis and scarring noted. Much of this is atelectatic, but there is some of it that is scarring. This is about the same as compared to 05/26/20. There is some pulmonary venous hypertension noted. No signs of any infiltrate identified. No signs of any alveolar edema noted. There is a trace right and left pleural effusion noted. No other significant findings. IMPRESSION: Pulmonary venous congestion. Stable bibasilar atelectasis and scarring. Trace bilateral effusions noted. Minimal change compared to 05/22/20. While performing the above CT examination, radiation dose reduction was accomplished utilizing automated exposure control, adjusting of the mA and kV based on the patient's body size and/or the use of imperative reconstructive techniques. CT dose: 333 mGycm Electronically Reviewed and Signed By RASHAD LIRA MD , 05/29/20 10:26, GMMarbin Transcribe Initials: DZ , Transcribe Date: 05/26/20 22:59, Dictation Date: Copy for: 710 MED REC DISCHARGED Page 1 of 1 Name Value Range Interpretation Code Description Data Ro rce(s) Supporting Document(s) ID Date Data Source [id number] 05/29/2020 07:46:00 AM EDT [facility] Name Value Range Interpretation Code Description Data Ro rce(s) Supporting Document(s) Magnesium [Mass/volume] in Serum or Plasma 1.8 MG/DL 1.7 - 2.2 [facility] ID Date Data Source [id number] 05/29/2020 07:46:00 AM EDT [facility] Name Value Range Interpretation Code Description Data Ro rce(s) Supporting Document(s) COMPREHENSIVE METABOLIC PANEL [facility] COMPREHENSIVE METABOLIC PANEL Sodium [Moles/volume] in Serum or Plasma 145 mEq/L 134 - 153 [facility] Potassium [Moles/volume] in Serum or Plasma 5.3 mEq/L 3.6 - 5.0 H [facility] Chloride [Moles/volume] in Serum or Plasma 103 mEq/L 98 - 107 [facility] Carbon dioxide, total [Moles/volume] in Serum or Plasma 37 MEQ/L 22 - 30 H [facility] Glucose [Mass/volume] in Serum or Plasma 101 MG/DL 65 - 110 [facility] BUN 65 MG/DL 7 - 21 H [facility] Creatinine [Mass/volume] in Serum or Plasma 2.2 MG/DL 0.7 - 1.5 H [facility] BUN/CREAT 30 8 - 27 H [facility] Protein [Mass/volume] in Serum or Plasma 5.7 G/DL 6.3 - 8.2 L [facility] Albumin [Mass/volume] in Serum or Plasma 3.5 G/DL 3.9 - 5.0 L [facility] Globulin [Mass/volume] in Serum by calculation 2.2 GM/DL 2.4 - 3.2 L [facility] A/G RATIO 1.6 0.8 - 2.0 [facility] Calcium [Mass/volume] in Serum or Plasma 8.3 MG/DL 8.4 - 10.2 L [facility] Bilirubin.total [Mass/volume] in Serum or Plasma <0.7 MG/DL 0.2 - 1.3 [facility] Alkaline phosphatase [Enzymatic activity/volume] in Serum or Plasma 54 U/L 38 - 126 [facility] Aspartate aminotransferase [Enzymatic activity/volume] in Serum or Plasma 15 U/L 5 - 40 [facility] Alanine aminotransferase [Enzymatic activity/volume] in Seru m or Plasma 50 U/L 7 - 56 [facility] Anion gap 3 in Serum or Plasma 5.0 mmol/L 8.0 - 16.0 L [facility] AGE 75 yrs [facility] al NON-AA GFR 23 mL/min [facility] AFR AMER GFR >60 [facility] Male GFR In terprentation 20-49 yrs >60 mL/min Normal 50-59 yrs >56 mL/min Normal 60-69 yrs >49 mL/min Normal 70-79yrs >42 mL/min Normal 80 and above >35 mL/min Normal Female GFR Interpretation 20-39 yrs >60 mL/min Normal 40-49 yrs >58 mL/min Normal 50-59 yrs >51 mL/min Normal 60-69 yrs >45 mL/min Normal 70-79 yrs >39 mL/min Normal 80 and above >32 mL/min Normal ID Date Data Source [id number] 05/29/2020 07:46:00 AM EDT [facility] Name Value Range Interpretation Code Description Data Ro rce(s) Supporting Document(s) Iron [Mass/volume] in Serum or Plasma 87 UG/DL 42 - 135 [facility] ID Date Data Source [id number] 05/29/2020 07:42:00 AM EDT [facility] Name Value Range Interpretation Code Description Data Ro rce(s) Supporting Document(s) CBC W/AUTOMATED DIFF [facility] COMPLETE BLOOD COUNT Leukocytes [#/volume] in Blood by Automated count 12.2 10^3/uL 4.2 - 11.0 H [facility] Erythrocytes [#/volume] in Blood by Automated count 3.05 10^6/uL 4. 20 - 5.40 L [facility] Hemoglobin [Mass/volume] in Blood 9.2 g/dL 12.0 - 16.0 L [facility] Hematocrit [Volume Fraction] of Blood by Automated count 31.8 % 3 7.0 - 47.0 L [facility] Erythrocyte mean corpuscular volume [Entitic volume] b y Automated count 104.3 fL 81.0 - 101 H [facility] Erythrocyte mean corpuscular hemoglobin [Entitic mass] by Automated count 30.2 pg 27.0 - 34.0 [facility] Erythrocyte mean corpuscular hemoglobin concentration [Mass/volume] by Automated count 28.9 g/dL 31.0 - 36.0 L [facility] Erythrocyte distribution width [Ratio] by Automated count 16.6 % 11.5 - 14.5 H [facility] Platelets [#/volume] in Blood by Automated count 312 10^3/uL 150 - 45 0 [facility] Platelet mean volume [Entitic volume] in Blood by Automated count 10.0 fL 7.4 - 10.4 [facility] Neutrophils/100 leukocytes in Blood by Automated count 70.6 % 37. 0 - 80.0 [facility] Lymphocytes/100 leukocytes in Blood by Manual count 10.0 % 25.0 - 40.0 L [facility] Monocytes/100 leukocytes in Blood by Automated count 11.5 % 3.0 - 8.0 H [facility] Eosinophils/100 leukocytes in Blood by Automated count 0.2 % 0.0 - 7.0 [facility] Basophils/100 leukocytes in Blood by Automated count 0.7 % 0.0 - 2.5 [facility] %IG 7.0 % 0.0 - 0.0 H [facility] al %NRBC 1.1 % 0.0 - 0.0 H [facility] al Neutrophils [#/volume] in Blood by Automated count 8.63 10^3/uL 2.00 - 6.90 [facility] [facility] [place] Lymphocytes [#/volume] in Blood by Automated count 1.22 10^3/uL 0.60 - 3.40 [facility] [place] Monocytes [#/volume] in Blood by Automated count 1.40 10^3/uL 0.00 - 0.90 H [facility] [place] Eosinophils [#/volume] in Blood by Automated count 0.02 10^3/uL 0.00 - 0.70 [facility] [place] Basophils [#/volume] in Blood by Automated count 0.08 10^3/uL 0.00 - 0.20 [facility] [place] #IG 0.85 10^3/uL 0.00 - 0.10 H [facility] #NRBC 0.14 10^3/uL 0.00 - 0.00 H [facility] MANUAL DIFF SEE BELOW [facility] ital Segmented neutrophils/100 leukocytes in Blood by Manual count 75 % 37 - 80 [facility] [place] BAND 1 % 0 - 5 [facility] %LYMPH 10 % 25 - 40 L [facility] al %MONO 10 % 3 - 8 H [facility] al Metamyelocytes/100 leukocytes in Blood by Manual count 2 % [facility] [place] Myelocytes/100 leukocytes in Blood by Manual count 2 % [facility] [place] Nucleated erythrocytes/100 erythrocytes in Blood by Manual count 2 % [facility] [place] RBC MORPH SEE BELOW [facility] al Anisocytosis [Presence] in Blood by Light microscopy 1+ FARRUKH L: NONE SEEN A [facility] Macrocytes [Presence] in Blood by Light microscopy 1+ NORMAL: NONE SEEN A [facility] [place] Poikilocytosis [Presence] in Blood by Light microscopy 1+ NOR MAL: NONE SEEN A [facility] HYPO 1+ NORMAL: NONE SEEN A [facility] { SICKLE CELL (NORMAL: NONE SEEN ) Platelet adequacy [Presence] in Blood by Light microscopy NORMAL NORMAL: NORMAL [facility] COMMENT: ID Date Data Source [id number] 05/29/2020 07:26:00 AM EDT [facility] Name Value Range Interpretation Code Description Data Ro rce(s) Supporting Document(s) BNP 82019 PG/ML 0 - 125 H [facility] ID Date Data Source [id number] 05/28/2020 08:11:00 AM [facility] Name Value Range Interpretation Code Description Data Ro rce(s) Supporting Document(s) COMPREHENSIVE METABOLIC PANEL [facility] [place] COMPREHENSIVE METABOLIC PANEL Sodium [Moles/volume] in Serum or Plasma 142 mEq/L 134 - 153 [facility] [place] Potassium [Moles/volume] in Serum or Plasma 5.1 mEq/L 3.6 - 5.0 H [facility] [place] Chloride [Moles/volume] in Serum or Plasma 100 mEq/L 98 - 107 [facility] [place] Carbon dioxide, total [Moles/volume] in Serum or Plasma 32 MEQ/L 22 - 30 H [facility] [place] Glucose [Mass/volume] in Serum or Plasma 133 MG/DL 65 - 110 H [facility] [place] BUN 78 MG/DL 7 - 21 HH [facility] al CALL/ READ BACK CALLED TO [facility] BY: TRACIE [facility] al DATE/TIME 05/28/20 @ 0810 [facility] ospital Creatinine [Mass/volume] in Serum or Plasma 2.4 MG/DL 0.7 - 1.5 H [facility] BUN/CREAT 33 8 - 27 H [facility] al Protein [Mass/volume] in Serum or Plasma 5.6 G/DL 6.3 - 8.2 L [facility] [place] Albumin [Mass/volume] in Serum or Plasma 3.4 G/DL 3.9 - 5.0 L [facility] [place] Globulin [Mass/volume] in Serum by calculation 2.2 GM/DL 2.4 - 3.2 L [facility] [place] A/G RATIO 1.5 0.8 - 2.0 [facility] Calcium [Mass/volume] in Serum or Plasma 7.8 MG/DL 8.4 - 10.2 L [facility] [place] Bilirubin.total [Mass/volume] in Serum or Plasma <0.7 MG/DL 0.2 - 1.3 [facility] [place] Alkaline phosphatase [Enzymatic activity/volume] in Serum or Plasma 59 U/L 38 - 126 [facility] [place] Aspartate aminotransferase [Enzymatic activity/volume] in Serum or Plasma 21 U/L 5 - 40 [facility] [place] Alanine aminotransferase [Enzymatic activity/volume] in Seru m or Plasma 62 U/L 7 - 56 H [facility] [place] Anion gap 3 in Serum or Plasma 10.0 mmol/L 8.0 - 16.0 [facility] [place] AGE 75 yrs [facility] NON-AA GFR 21 mL/min [facility] AFR AMER GFR >60 [facility] Male GFR In terprentation 20-49 yrs >60 mL/min Normal 50-59 yrs >56 mL/min Normal 60-69 yrs >49 mL/min Normal 70-79yrs >42 mL/min Normal 80 and above >35 mL/min Normal Female GFR Interpretation 20-39 yrs >60 mL/min Normal 40-49 yrs >58 mL/min Normal 50-59 yrs >51 mL/min Normal 60-69 yrs >45 mL/min Normal 70-79 yrs >39 mL/min Normal 80 and above >32 mL/min Normal ID Date Data Source [id number] 05/28/2020 07:43:00 AM EDT [facility] Name Value Range Interpretation Code Description Data Ro rce(s) Supporting Document(s) CBC W/AUTOMATED DIFF [facility] [place] COMPLETE BLOOD COUNT Leukocytes [#/volume] in Blood by Automated count 12.0 10^3/uL 4.2 - 11.0 H [facility] [place] Erythrocytes [#/volume] in Blood by Automated count 3.03 10^6/uL 4. 20 - 5.40 L [facility] [place] Hemoglobin [Mass/volume] in Blood 9.3 g/dL 12.0 - 16.0 L [facility] [place] Hematocrit [Volume Fraction] of Blood by Automated count 31.2 % 3 7.0 - 47.0 L [facility] [place] Erythrocyte mean corpuscular volume [Entitic volume] b y Automated count 103.0 fL 81.0 - 101 H [facility] [place] Erythrocyte mean corpuscular hemoglobin [Entitic mass] by Automated count 30.7 pg 27.0 - 34.0 [facility] [place] Erythrocyte mean corpuscular hemoglobin concentration [Mass/volume] by Automated count 29.8 g/dL 31.0 - 36.0 L [facility] [place] Erythrocyte distribution width [Ratio] by Automated count 16.5 % 11.5 - 14.5 H [facility] [place] Platelets [#/volume] in Blood by Automated count 317 10^3/uL 150 - 45 0 [facility] [place] Platelet mean volume [Entitic volume] in Blood by Automated count 10.4 fL 7.4 - 10.4 [facility] [place] Neutrophils/100 leukocytes in Blood by Automated count 78.3 % 37. 0 - 80.0 [facility] [place] Lymphocytes/100 leukocytes in Blood by Manual count 8.0 % 25.0 - 40.0 L [facility] [place] Monocytes/100 leukocytes in Blood by Automated count 8.5 % 3.0 - 8.0 H [facility] [place] Eosinophils/100 leukocytes in Blood by Automated count 0.1 % 0.0 - 7.0 [facility] [place] Basophils/100 leukocytes in Blood by Automated count 0.4 % 0.0 - 2.5 [facility] [place] %IG 4.7 % 0.0 - 0.0 H [facility] %NRBC 1.6 % 0.0 - 0.0 [facility] Neutrophils [#/volume] in Blood by Automated count 9.37 10^3/uL 2.00 - 6.90 H [facility] [place] Lymphocytes [#/volume] in Blood by Automated count 0.96 10^3/uL 0.60 - 3.40 [facility] [place] Monocytes [#/volume] in Blood by Automated count 1.02 10^3/uL 0.00 - 0.90 H [facility] [place] Eosinophils [#/volume] in Blood by Automated count 0.01 10^3/uL 0.00 - 0.70 [facility] [place] Basophils [#/volume] in Blood by Automated count 0.05 10^3/uL 0.00 - 0.20 [facility] [place] #IG 0.56 10^3/uL 0.00 - 0.10 H [facility] #NRBC 0.19 10^3/uL 0.00 - 0.00 H [facility] ospital MANUAL DIFF NOT INDICATED [facility] [place] RBC MORPH NOT INDICATED [facility] spital ID Date Data Source [id number] 05/27/2020 08:29:00 AM EDT [facility] Name Value Range Interpretation Code Description Data Ro rce(s) Supporting Document(s) CBC W/AUTOMATED DIFF [facility] [place] COMPLETE BLOOD COUNT Leukocytes [#/volume] in Blood by Automated count 12.6 10^3/uL 4.2 - 11.0 H [facility] [place] Erythrocytes [#/volume] in Blood by Automated count 3.02 10^6/uL 4. 20 - 5.40 L [facility] [place] Hemoglobin [Mass/volume] in Blood 9.1 g/dL 12.0 - 16.0 L [facility] [place] Hematocrit [Volume Fraction] of Blood by Automated count 30.6 % 3 7.0 - 47.0 L [facility] [place] Erythrocyte mean corpuscular volume [Entitic volume] b y Automated count 101.3 fL 81.0 - 101 H [facility] [place] Erythrocyte mean corpuscular hemoglobin [Entitic mass] by Automated count 30.1 pg 27.0 - 34.0 [facility] [place] Erythrocyte mean corpuscular hemoglobin concentration [Mass/volume] by Automated count 29.7 g/dL 31.0 - 36.0 L [facility] [place] Erythrocyte distribution width [Ratio] by Automated count 16.2 % 11.5 - 14.5 H [facility] [place] Platelets [#/volume] in Blood by Automated count 312 10^3/uL 150 - 45 0 [facility] [place] Platelet mean volume [Entitic volume] in Blood by Automated count 10.5 fL 7.4 - 10.4 H [facility] [place] Neutrophils/100 leukocytes in Blood by Automated count 75.8 % 37. 0 - 80.0 [facility] [place] Lymphocytes/100 leukocytes in Blood by Manual count 8.8 % 25.0 - 40.0 L [facility] [place] Monocytes/100 leukocytes in Blood by Automated count 10.4 % 3.0 - 8.0 H [facility] [place] Eosinophils/100 leukocytes in Blood by Automated count 0.0 % 0.0 - 7.0 [facility] [place] 0.4 %IG 4.6 % 0.0 - 0.0 H [facility] al %NRBC 2.3 % 0.0 - 0.0 H [facility] al Neutrophils [#/volume] in Blood by Automated count 9.55 10^3/uL 2.00 - 6.90 H [facility] [place] Lymphocytes [#/volume] in Blood by Automated count 1.11 10^3/uL 0.60 - 3.40 [facility] [place] Monocytes [#/volume] in Blood by Automated count 1.31 10^3/uL 0.00 - 0.90 H [facility] [place] Eosinophils [#/volume] in Blood by Automated count 0.00 10^3/uL 0.00 - 0.70 [facility] [place] Basophils [#/volume] in Blood by Automated count 0.05 10^3/uL 0.00 - 0.20 [facility] [place] #IG 0.58 10^3/uL 0.00 - 0.10 H [facility] ospital #NRBC 0.29 10^3/uL 0.00 - 0.00 H [facility] MANUAL DIFF SEE BELOW [facility] ital Segmented neutrophils/100 leukocytes in Blood by Manual count 83 % 37 - 80 H [facility] [place] BAND 0 % 0 - 5 [facility] al %LYMPH 12 % 25 - 40 [facility] %MONO 5 % 3 - 8 [facility] %EOS 0 % 0 - 7 [facility] 0 Nucleated erythrocytes/100 erythrocytes in Blood by Manual count 2 % [facility] [place] RBC MORPH NOT INDICATED [facility] sp[facility] ID Date Data Source [id number] 05/27/2020 08:00:00 AM EDT [facility] Name Value Range Interpretation Code Description Data Ro rce(s) Supporting Document(s) COMPREHENSIVE METABOLIC PANEL [facility] [place] COMPREHENSIVE METABOLIC PANEL Sodium [Moles/volume] in Serum or Plasma 138 mEq/L 134 - 153 [facility] [place] Potassium [Moles/volume] in Serum or Plasma 4.9 mEq/L 3.6 - 5.0 [facility] [place] Chloride [Moles/volume] in Serum or Plasma 98 mEq/L 98 - 107 [facility] [place] Carbon dioxide, total [Moles/volume] in Serum or Plasma 30 MEQ/L 22 - 30 [facility] [place] Glucose [Mass/volume] in Serum or Plasma 137 MG/DL 65 - 110 H [facility] [place] BUN 85 MG/DL 7 - 21 [facility]/ READ BACK CALL[facility] TO [facility] BY: TRACIE [facility]/TIME 05/27/20 @ 0800 [facility] Creatinine [Mass/volume] in Serum or Plasma 2.6 MG/DL 0.7 - 1.5 H [facility] [place] BUN/CREAT 33 8 - 27 [facility] Protein [Mass/volume] in Serum or Plasma 5.4 G/DL 6.3 - 8.2 L [facility] [place] Albumin [Mass/volume] in Serum or Plasma 3.3 G/DL 3.9 - 5.0 L [facility] [place] Globulin [Mass/volume] in Serum by calculation 2.1 GM/DL 2.4 - 3.2 L [facility] [place] A/G RATIO 1.6 0.8 - 2.0 [facility] Calcium [Mass/volume] in Serum or Plasma 7.1 MG/DL 8.4 - 10.2 L [facility] [place] Bilirubin.total [Mass/volume] in Serum or Plasma <0.7 MG/DL 0.2 - 1.3 [facility] [place] Alkaline phosphatase [Enzymatic activity/volume] in Serum or Plasma 61 U/L 38 - 126 [facility] [place] Aspartate aminotransferase [Enzymatic activity/volume] in Serum or Plasma 36 U/L 5 - 40 [facility] [place] Alanine aminotransferase [Enzymatic activity/volume] in Seru m or Plasma 77 U/L 7 - 56 H [facility] [place] Anion gap 3 in Serum or Plasma 10.0 mmol/L 8.0 - 16.0 [facility] [place] AGE 75 yrs [facility] NON-AA GFR 19 mL/min [facility] AFR AMER GFR >60 [facility] Male GFR In terprentation 20-49 yrs >60 mL/min Normal 50-59 yrs >56 mL/min Normal 60-69 yrs >49 mL/min Normal 70-79yrs >42 mL/min Normal 80 and above >35 mL/min Normal Female GFR Interpretation 20-39 yrs >60 mL/min Normal 40-49 yrs >58 mL/min Normal 50-59 yrs >51 mL/min Normal 60-69 yrs >45 mL/min Normal 70-79 yrs >39 mL/min Normal 80 and above >32 mL/min Normal ID Date Data Source [id number] 05/26/2020 09:22:00 AM EDT [facility] [address] [place] [address] PHONE: [phone] FAX: [phone] Name .................. : TR Whitley Acct Number.................. : [id number] ROOM. ................. : CCU3 Number ................... : [id number] Stay type ............. : I/P Discharge Date......... ... : Admit Date ......... : 05/09 12/26 Admit Phys .................... : REY BEVERLY Date of ....... : 1945 Family Phys ................... : [id number] Phone .................. : [phone] Age ................................ : 75 Film# .................. .:[id number] Sex ................................. : F Unsigned transcriptions are preliminary reports and do not represent a medical or legal document CHEST 2 VIEWS [id number] COMPLETE:05/25/20 06:29 KJE [id number] (REASON FOR CHEST: CHF CHEST X-RAY: 2-VIEWS INDICATION: CHF. COMPARISON: 02/08/20 TECHNIQUE: 2-views of the chest submitted. FINDINGS: Stable hyperinflation. No infiltrate. Borderline cardiomegaly. A left-sided pacemaker. Basilar atelectasis. IMPRESSION: Basilar atelectasis. Hyperinflation. Borderline cardiomegaly. No infiltrate. Electronically Reviewed and Signed By Rishabh Cee MD , 05/26/20 09:22, JANINE Transcribe Initials: KIRIT , Transcribe Date: 05/25/20 16:34, Dictation Date: Copy for: 002 RUST Copy for: 710 [employer] REC Page 1 of 1 Name Value Range Interpretation Code Description Data Ro rce(s) Supporting Document(s) ID Date Data Source [id number] 05/26/2020 10:33:00 AM EDT [facility] Name Value Range Interpretation Code Description Data Ro rce(s) Supporting Document(s) Cobalamin (Vitamin B12) [Mass/volume] in Serum or Plasma 653 PG/ML 232 - 1245 [facility] [place] ID Date Data Source [id number] 05/26/2020 10:14:00 AM EDT [facility] [place] Name Value Range Interpretation Code Description Data Ro rce(s) Supporting Document(s) Iron [Mass/volume] in Serum or Plasma 48 UG/DL 42 - 135 [facility] [place] ID Date Data Source [id number] 05/26/2020 07:33:00 AM EDT [facility] Name Value Range Interpretation Code Description Data Ro rce(s) Supporting Document(s) COMPREHENSIVE METABOLIC PANEL [facility] [place] COMPREHENSIVE METABOLIC PANEL Sodium [Moles/volume] in Serum or Plasma 137 mEq/L 134 - 153 [facility] [place] Potassium [Moles/volume] in Serum or Plasma 5.1 mEq/L 3.6 - 5.0 H [facility] [place] Chloride [Moles/volume] in Serum or Plasma 96 mEq/L 98 - 107 L [facility] [place] Carbon dioxide, total [Moles/volume] in Serum or Plasma 28 MEQ/L 22 - 30 [facility] [place] Glucose [Mass/volume] in Serum or Plasma 165 MG/DL 65 - 110 H [facility] [place] BUN 87 MG/DL 7 - 21 HH [facility] ELISEO ON AIUCM05/26/20 0734 Creatinine [Mass/volume] in Serum or Plasma 3.1 MG/DL 0.7 - 1.5 H [facility] [place] BUN/CREAT 28 8 - 27 [facility] Protein [Mass/volume] in Serum or Plasma 5.4 G/DL 6.3 - 8.2 L [facility] [place] Albumin [Mass/volume] in Serum or Plasma 3.1 G/DL 3.9 - 5.0 L [facility] [place] Globulin [Mass/volume] in Serum by calculation 2.3 GM/DL 2.4 - 3.2 L [facility] [place] A/G RATIO 1.3 0.8 - 2.0 [facility] Calcium [Mass/volume] in Serum or Plasma 6.9 MG/DL 8.4 - 10.2 LL [facility] [place] ELISEO ON AIUCM05/26/20 0734 Bilirubin.total [Mass/volume] in Serum or Plasma <0.7 MG/DL 0.2 - 1.3 [facility] [place] Alkaline phosphatase [Enzymatic activity/volume] in Serum or Plasma 56 U/L 38 - 126 [facility] [place] Aspartate aminotransferase [Enzymatic activity/volume] in Serum or Plasma 44 U/L 5 - 40 H [facility] [place] Alanine aminotransferase [Enzymatic activity/volume] in Seru m or Plasma 60 U/L 7 - 56 H [facility] [place] Anion gap 3 in Serum or Plasma 13.0 mmol/L 8.0 - 16.0 [facility] [place] AGE 75 yrs [facility] NON-AA GFR 16 mL/min [facility] booker AFR AMER GFR >60 [facility] Male GFR In terprentation 20-49 yrs >60 mL/min Normal 50-59 yrs >56 mL/min Normal 60-69 yrs >49 mL/min Normal 70-79yrs >42 mL/min Normal 80 and above >35 mL/min Normal Female GFR Interpretation 20-39 yrs >60 mL/min Normal 40-49 yrs >58 mL/min Normal 50-59 yrs >51 mL/min Normal 60-69 yrs >45 mL/min Normal 70-79 yrs >39 mL/min Normal 80 and above >32 mL/min Normal ID Date Data Source [id number] 05/26/2020 06:35:00 AM EDT [facility] Name Value Range Interpretation Code Description Data Ro rce(s) Supporting Document(s) CBC W/AUTOMATED DIFF [facility] [place] COMPLETE BLOOD COUNT Leukocytes [#/volume] in Blood by Automated count 11.2 10^3/uL 4.2 - 11.0 H [facility] [place] Erythrocytes [#/volume] in Blood by Automated count 2.72 10^6/uL 4. 20 - 5.40 L [facility] [place] Hemoglobin [Mass/volume] in Blood 8.3 g/dL 12.0 - 16.0 L [facility] [place] Hematocrit [Volume Fraction] of Blood by Automated count 27.3 % 3 7.0 - 47.0 L [facility] [place] Erythrocyte mean corpuscular volume [Entitic volume] b y Automated count 100.4 fL 81.0 - 101 [facility] [place] Erythrocyte mean corpuscular hemoglobin [Entitic mass] by Automated count 30.5 pg 27.0 - 34.0 [facility] Erythrocyte mean corpuscular hemoglobin concentration [Mass/volume] by Automated count 30.4 g/dL 31.0 - 36.0 L [facility] [place] Erythrocyte distribution width [Ratio] by Automated count 15.9 % 11.5 - 14.5 H [facility] [place] Platelets [#/volume] in Blood by Automated count 260 10^3/uL 150 - 45 0 [facility] [place] Platelet mean volume [Entitic volume] in Blood by Automated count 10.1 fL 7.4 - 10.4 [facility] Neutrophils/100 leukocytes in Blood by Automated count 88.9 % 37. 0 - 80.0 H [facility] [place] Lymphocytes/100 leukocytes in Blood by Manual count 5.0 % 25.0 - 40.0 L [facility] [place] Monocytes/100 leukocytes in Blood by Automated count 2.4 % 3.0 - 8.0 L [facility] [place] Eosinophils/100 leukocytes in Blood by Automated count 0.0 % 0.0 - 7.0 [facility] Basophils/100 leukocytes in Blood by Automated count 0.2 % 0.0 - 2.5 [facility] %IG 3.5 % 0.0 - 0.0 [facility] %NRBC 0.6 % 0.0 - 0.0 H [facility] al Neutrophils [#/volume] in Blood by Automated count 9.95 10^3/uL 2.00 - 6.90 H [facility] [place] Lymphocytes [#/volume] in Blood by Automated count 0.56 10^3/uL 0.60 - 3.40 L [facility] [place] Monocytes [#/volume] in Blood by Automated count 0.27 10^3/uL 0.00 - 0.90 [facility] Eosinophils [#/volume] in Blood by Automated count 0.00 10^3/uL 0.00 - 0.70 [facility] Basophils [#/volume] in Blood by Automated count 0.02 10^3/uL 0.00 - 0.20 [facility] #IG 0.39 10^3/uL 0.00 - 0.10 H [facility] #NRBC 0.07 10^3/uL 0.00 - 0.00 H [facility] MANUAL DIFF NOT INDICATED [facility] RBC MORPH NOT INDICATED [facility] sp[facility] ID Date Data Source [id number] 05/26/2020 03:21:00 AM EDT [facility] [address] [place] [address] RESPIRATORY CARE REPORT ==== ---------NAME------- NUMBER SEX AGE ADMIT DISC. XRAY# F/C [id number] DONALD Gutierrez [id number] F 75 05/22/20 [id number] [id number] I/P DATE OF : 1945 M/R# [id number] #: [id number] CCU3 LOCATION: [facility] [address] COMPLETE:05/25/20 08 :22 [facility] [id number] PHYSICIAN: REY PAUL Name Value Range Interpretation Code Description Data Ro rce(s) Supporting Document(s) ID Date Data Source [id number] 05/25/2020 08:28:00 AM EDT [facility] Name Value Range Interpretation Code Description Data Ro rce(s) Supporting Document(s) COMPREHENSIVE METABOLIC PANEL [facility] COMPREHENSIVE METABOLIC PANEL Sodium [Moles/volume] in Serum or Plasma 137 mEq/L 134 - 153 [facility] Potassium [Moles/volume] in Serum or Plasma 4.8 mEq/L 3.6 - 5.0 [facility] Chloride [Moles/volume] in Serum or Plasma 94 mEq/L 98 - 107 L [facility] [place] Carbon dioxide, total [Moles/volume] in Serum or Plasma 26 MEQ/L 22 - 30 [facility] Glucose [Mass/volume] in Serum or Plasma 168 MG/DL 65 - 110 H [facility] BUN 87 MG/DL 7 - 21 HH [facility] CALL/ READ BACK FAUZIA PATEL [facility] BY: ASHOK [facility] DATE/TIME 05.25.20 [facility] Creatinine [Mass/volume] in Serum or Plasma 3.4 MG/DL 0.7 - 1.5 H [facility] BUN/CREAT 26 8 - 27 [facility] Protein [Mass/volume] in Serum or Plasma 5.5 G/DL 6.3 - 8.2 L [facility] Albumin [Mass/volume] in Serum or Plasma 3.4 G/DL 3.9 - 5.0 L [facility] Globulin [Mass/volume] in Serum by calculation 2.1 GM/DL 2.4 - 3.2 L [facility] A/G RATIO 1.6 0.8 - 2.0 [facility] Calcium [Mass/volume] in Serum or Plasma 7.5 MG/DL 8.4 - 10.2 L [facility] Bilirubin.total [Mass/volume] in Serum or Plasma <0.7 MG/DL 0.2 - 1.3 [facility] Alkaline phosphatase [Enzymatic activity/volume] in Serum or Plasma 65 U/L 38 - 126 [facility] Aspartate aminotransferase [Enzymatic activity/volume] in Serum or Plasma 16 U/L 5 - 40 [facility] Alanine aminotransferase [Enzymatic activity/volume] in Seru m or Plasma 19 U/L 7 - 56 [facility] Anion gap 3 in Serum or Plasma 17.0 mmol/L 8.0 - 16.0 H [facility] AGE 75 yrs [facility] NON-AA GFR 14 mL/min [facility] AFR AMER GFR >60 [facility] Male GFR In terprentation 20-49 yrs >60 mL/min Normal 50-59 yrs >56 mL/min Normal 60-69 yrs >49 mL/min Normal 70-79yrs >42 mL/min Normal 80 and above >35 mL/min Normal Female GFR Interpretation 20-39 yrs >60 mL/min Normal 40-49 yrs >58 mL/min Normal 50-59 yrs >51 mL/min Normal 60-69 yrs >45 mL/min Normal 70-79 yrs >39 mL/min Normal 80 and above >32 mL/min Normal ID Date Data Source [id number] 05/25/2020 07:19:00 AM EDT [facility] Name Value Range Interpretation Code Description Data Ro rce(s) Supporting Document(s) CBC W/AUTOMATED DIFF [facility] COMPLETE BLOOD COUNT Leukocytes [#/volume] in Blood by Automated count 13.2 10^3/uL 4.2 - 11.0 H [facility] Erythrocytes [#/volume] in Blood by Automated count 2.88 10^6/uL 4. 20 - 5.40 L [facility] Hemoglobin [Mass/volume] in Blood 8.8 g/dL 12.0 - 16.0 L [facility] Hematocrit [Volume Fraction] of Blood by Automated count 28.8 % 3 7.0 - 47.0 L [facility] Erythrocyte mean corpuscular volume [Entitic volume] b y Automated count 100.0 fL 81.0 - 101 [facility] Erythrocyte mean corpuscular hemoglobin [Entitic mass] by Automated count 30.6 pg 27.0 - 34.0 [facility] Erythrocyte mean corpuscular hemoglobin concentration [Mass/volume] by Automated count 30.6 g/dL 31.0 - 36.0 L [facility] Erythrocyte distribution width [Ratio] by Automated count 15.9 % 11.5 - 14.5 H [facility] Platelets [#/volume] in Blood by Automated count 266 10^3/uL 150 - 45 0 [facility] Platelet mean volume [Entitic volume] in Blood by Automated count 10.6 fL 7.4 - 10.4 H [facility] Neutrophils/100 leukocytes in Blood by Automated count 91.7 % 37. 0 - 80.0 H [facility] Lymphocytes/100 leukocytes in Blood by Manual count 4.0 % 25.0 - 40.0 L [facility] Monocytes/100 leukocytes in Blood by Automated count 2.5 % 3.0 - 8.0 L [facility] Eosinophils/100 leukocytes in Blood by Automated count 0.0 % 0.0 - 7.0 [facility] Basophils/100 leukocytes in Blood by Automated count 0.1 % 0.0 - 2.5 [facility] %IG 1.7 % 0.0 - 0.0 H [facility] %NRBC 0.3 % 0.0 - 0.0 [facility] Neutrophils [#/volume] in Blood by Automated count 12.13 10^3/uL 2. 00 - 6.90 H [facility] Lymphocytes [#/volume] in Blood by Automated count 0.53 10^3/uL 0.60 - 3.40 L [facility] Monocytes [#/volume] in Blood by Automated count 0.33 10^3/uL 0.00 - 0.90 [facility] Eosinophils [#/volume] in Blood by Automated count 0.00 10^3/uL 0.00 - 0.70 [facility] Basophils [#/volume] in Blood by Automated count 0.01 10^3/uL 0.00 - 0.20 [facility] #IG 0.22 10^3/uL 0.00 - 0.10 H [facility] #NRBC 0.04 10^3/uL 0.00 - 0.00 H [facility] MANUAL DIFF NOT INDICATED [facility] RBC MORPH NOT INDICATED [facility] spital ID Date Data Source [id number] 05/25/2020 01:53:00 [place] [address] RESPIRATORY CARE REPORT ==== ---------NAME------- NUMBER SEX AGE ADMIT DISC. XRAY# F/C EDWIN DONALD Whitley [id number] F 75 05/22/20 [id number] I/P DATE OF : 1945 M/R# [id number] PH#: [id number] CCU3 LOCATION: [facility] [address] COMPLETE:05/24/20 13 :02 M [id number] PHYSICIAN: REY PAUL Name Value Range Interpretation Code Description Data Ro rce(s) Supporting Document(s) ID Date Data Source [id number] 05/24/2020 11:03:00 AM EDT [facility] [address] [place] [address] PHONE: [phone] FAX: [phone] Name .................. : TR DONALD Gutierrez Acct Number.................. : [id number] ROOM. ................. : [address] Number ................... : [id number] Stay type ............. : I/P Discharge Date......... ... : Admit Date ......... : 05/22/20 Admit Phys .................... : REY PAUL Date of ....... : 1945 Family Phys ................... : Row44 Phone .................. : [phone] Age ................................ : 75 Film# .................. .:[id number] Sex ................................. : F Unsigned transcriptions are preliminary reports and do not represent a medical or legal document CT THORAX W/O CONTRAST [id number] COMPLETE:05/22/20 15:44 BEM [id number] (REASON FOR CHEST: CHF CT OF THE CHEST WITHOUT CONTRAST: INDICATION: CHF. FINDINGS: The neck base is clear. There is a left-sided cardiac conduction device. The lungs demonstrate mild apical emphysematous changes. Trace dependent atelectasis and a tiny right pleural effusion are noted. The heart is normal in size. There is severe coronary artery calcification/evidence of prior cardiac stenting. No lymphadenopathy is visualized. The visualized upper abdomen demonstrates no acute abnormality. There is no acute osseous abnormality. IMPRESSION: No evidence of pulmonary edema to suggest CHF. Trace right pleural effusion. Mild dependent atelectasis bilaterally. While performing the above CT examination, radiation dose reduction was accomplished utilizing automated exposure control, adjusting of the mA and kV based on the patient's body size and/or the use of imperative reconstructive techniques. CT dose: 685.4 mGycm [address] [place] [address] PHONE: [phone] FAX: [phone] Name .................. : TR Whitley Acct Number.................. : [id number] ROOM. ................. : CCU3 MR Number ................... : [id number] Stay type ............. : I/P Discharge Date......... ... : Admit Date ......... : 05/22/20 Admit Phys .................... : REY MIR Date of ....... : 1945 Family Phys ................... : CASPER Phone .................. : [phone] Age ................................ : 75 Film# .................. .:[id number] Sex ................................. : F Unsigned transcriptions are preliminary reports and do not represent a medical or legal document CT THORAX W/O CONTRAST [id number] COMPLETE:05/22/20 15:44 BEM [id number] (REASON FOR CHEST: CHF Electronically Reviewed and Signed By Robert Gilliland M.D. , 05/24/20 11:03, TNFede Transcribe Initials: DZ , Transcribe Date: 05/23/20 00:49, Dictation Date: Copy for: 002 RUST Copy for: 710 MED REC Page 2 of 2 Name Value Range Interpretation Code Description Data Ro rce(s) Supporting Document(s) ID Date Data Source [id number] 05/24/2020 09:50:00 [place] [address] PHONE: [phone] FAX: [phone] Name .................. : TR MCKENZIEARA Gutierrez Acct Number.................. : [id number] ROOM. ................. : CCU3 Number ................... : [id number] Stay type ............. : I/P Discharge Date......... ... : Admit Date ......... : 05/22/20 Admit Phys .................... : REY BEVERLY Date of ....... : 1945 Family Phys ................... : CASPER Phone .................. : [phone] Age ................................ : 75 Film# .................. .:[id number] Sex ................................. : F Unsigned transcriptions are preliminary reports and do not represent a medical or legal document CHEST PORTABLE [id number] COMPLETE:05/22/20 17:47 RUBENS [id number] (REASON FOR CHEST: CHF AP PORTABLE CHEST X-RAY: FINDINGS: Pacer leads in good position. There is pulmonary venous hypertension identified. There is no definitive CHF identified. Compared to 09/22/19, the PVH is however, increased. IMPRESSION: Some increased pulmonary venous hypertension. No other definite abnormalities. Electronically Reviewed and Signed By RASHAD LIRA MD , 05/24/20 09:50, [facility] Transcribe Initials: DZ , Transcribe Date: 05/23/20 01:28, Dictation Date: Copy for: 002 RUST Copy for: 710 [employer] REC Page 1 of 1 Name Value Range Interpretation Code Description Data Ro rce(s) Supporting Document(s) ID Date Data Source [id number] 05/24/2020 07:31:00 AM EDT [facility] Name Value Range Interpretation Code Description Data Ro rce(s) Supporting Document(s) COMPREHENSIVE METABOLIC PANEL [facility] COMPREHENSIVE METABOLIC PANEL Sodium [Moles/volume] in Serum or Plasma 138 mEq/L 134 - 153 [facility] Potassium [Moles/volume] in Serum or Plasma 5.3 mEq/L 3.6 - 5.0 H [facility] Chloride [Moles/volume] in Serum or Plasma 94 mEq/L 98 - 107 L [facility] Carbon dioxide, total [Moles/volume] in Serum or Plasma 31 MEQ/L 22 - 30 H [facility] Glucose [Mass/volume] in Serum or Plasma 149 MG/DL 65 - 110 H [facility] BUN 70 MG/DL 7 - 21 H [facility] Creatinine [Mass/volume] in Serum or Plasma 3.2 MG/DL 0.7 - 1.5 H [facility] BUN/CREAT 22 8 - 27 [facility] Protein [Mass/volume] in Serum or Plasma 6.1 G/DL 6.3 - 8.2 L [facility] Albumin [Mass/volume] in Serum or Plasma 3.6 G/DL 3.9 - 5.0 L [facility] Globulin [Mass/volume] in Serum by calculation 2.5 GM/DL 2.4 - 3.2 [facility] A/G RATIO 1.4 0.8 - 2.0 [facility] Calcium [Mass/volume] in Serum or Plasma 8.2 MG/DL 8.4 - 10.2 L [facility] Bilirubin.total [Mass/volume] in Serum or Plasma <0.7 MG/DL 0.2 - 1.3 [facility] Alkaline phosphatase [Enzymatic activity/volume] in Serum or Plasma 71 U/L 38 - 126 [facility] Aspartate aminotransferase [Enzymatic activity/volume] in Se rum or Plasma 9 U/L 5 - 40 [facility] Alanine aminotransferase [Enzymatic activity/volume] in Seru m or Plasma 10 U/L 7 - 56 [facility] Anion gap 3 in Serum or Plasma 13.0 mmol/L 8.0 - 16.0 [facility] AGE 75 yrs [facility] GFR 15 mL/min [facility] AFR AMER GFR >60 [facility] Male GFR In terprentation 20-49 yrs >60 mL/min Normal 50-59 yrs >56 mL/min Normal 60-69 yrs >49 mL/min Normal 70-79yrs >42 mL/min Normal 80 and above >35 mL/min Normal Female GFR Interpretation 20-39 yrs >60 mL/min Normal 40-49 yrs >58 mL/min Normal 50-59 yrs >51 mL/min Normal 60-69 yrs >45 mL/min Normal 70-79 yrs >39 mL/min Normal 80 and above >32 mL/min Normal ID Date Data Source [id number] 05/24/2020 06:31:00 AM EDT [facility] Name Value Range Interpretation Code Description Data Ro rce(s) Supporting Document(s) CBC W/AUTOMATED DIFF [facility] COMPLETE BLOOD COUNT Leukocytes [#/volume] in Blood by Automated count 12.0 10^3/uL 4.2 - 11.0 H [facility] Erythrocytes [#/volume] in Blood by Automated count 2.91 10^6/uL 4. 20 - 5.40 L [facility] Hemoglobin [Mass/volume] in Blood 8.8 g/dL 12.0 - 16.0 L [facility] Hematocrit [Volume Fraction] of Blood by Automated count 29.1 % 3 7.0 - 47.0 L [facility] Erythrocyte mean corpuscular volume [Entitic volume] b y Automated count 100.0 fL 81.0 - 101 [facility] Erythrocyte mean corpuscular hemoglobin [Entitic mass] by Automated count 30.2 pg 27.0 - 34.0 [facility] Erythrocyte mean corpuscular hemoglobin concentration [Mass/volume] by Automated count 30.2 g/dL 31.0 - 36.0 L [facility] Erythrocyte distribution width [Ratio] by Automated count 15.9 % 11.5 - 14.5 H [facility] Platelets [#/volume] in Blood by Automated count 265 10^3/uL 150 - 45 0 [facility] Platelet mean volume [Entitic volume] in Blood by Automated count 10.5 fL 7.4 - 10.4 H [facility] Neutrophils/100 leukocytes in Blood by Automated count 92.1 % 37. 0 - 80.0 H [facility] Lymphocytes/100 leukocytes in Blood by Manual count 5.3 % 25.0 - 40.0 L [facility] Monocytes/100 leukocytes in Blood by Automated count 1.7 % 3.0 - 8.0 L [facility] Eosinophils/100 leukocytes in Blood by Automated count 0.0 % 0.0 - 7.0 [facility] Basophils/100 leukocytes in Blood by Automated count 0.1 % 0.0 - 2.5 [facility] %IG 0.8 % 0.0 - 0.0 [facility] %NRBC 0.0 % 0.0 - 0.0 [facility] Neutrophils [#/volume] in Blood by Automated count 11.04 10^3/uL 2. 00 - 6.90 H [facility] Lymphocytes [#/volume] in Blood by Automated count 0.63 10^3/uL 0.60 - 3.40 [facility] Monocytes [#/volume] in Blood by Automated count 0.20 10^3/uL 0.00 - 0.90 [facility] Eosinophils [#/volume] in Blood by Automated count 0.00 10^3/uL 0.00 - 0.70 [facility] Basophils [#/volume] in Blood by Automated count 0.01 10^3/uL 0.00 - 0.20 [facility] #IG 0.10 10^3/uL 0.00 - 0.10 [facility] #NRBC 0.00 10^3/uL 0.00 - 0.00 [facility] ospital MANUAL DIFF NOT INDICATED [facility] RBC MORPH NOT INDICATED [facility] spital ID Date Data Source [id number] 05/23/2020 10:39:00 AM EDT [facility] Name Value Range Interpretation Code Description Data Ro rce(s) Supporting Document(s) Iron [Mass/volume] in Serum or Plasma 75 UG/DL 42 - 135 [facility] ID Date Data Source [id number] 05/23/2020 07:21:00 AM EDT [facility] Name Value Range Interpretation Code Description Data Ro rce(s) Supporting Document(s) COMPREHENSIVE METABOLIC PANEL [facility] COMPREHENSIVE METABOLIC PANEL Sodium [Moles/volume] in Serum or Plasma 139 mEq/L 134 - 153 [facility] Potassium [Moles/volume] in Serum or Plasma 5.3 mEq/L 3.6 - 5.0 H [facility] Chloride [Moles/volume] in Serum or Plasma 95 mEq/L 98 - 107 L [facility] Carbon dioxide, total [Moles/volume] in Serum or Plasma 33 MEQ/L 22 - 30 H [facility] Glucose [Mass/volume] in Serum or Plasma 160 MG/DL 65 - 110 H [facility] BUN 47 MG/DL 7 - 21 H [facility] Creatinine [Mass/volume] in Serum or Plasma 2.5 MG/DL 0.7 - 1.5 H [facility] BUN/CREAT 19 8 - 27 [facility] Protein [Mass/volume] in Serum or Plasma 7.0 G/DL 6.3 - 8.2 [facility] Albumin [Mass/volume] in Serum or Plasma 4.0 G/DL 3.9 - 5.0 [facility] Globulin [Mass/volume] in Serum by calculation 3.0 GM/DL 2.4 - 3.2 [facility] A/G RATIO 1.3 0.8 - 2.0 [facility] Calcium [Mass/volume] in Serum or Plasma 8.8 MG/DL 8.4 - 10.2 [facility] Bilirubin.total [Mass/volume] in Serum or Plasma <0.7 MG/DL 0.2 - 1.3 [facility] Alkaline phosphatase [Enzymatic activity/volume] in Serum or Plasma 91 U/L 38 - 126 [facility] Aspartate aminotransferase [Enzymatic activity/volume] in Serum or Plasma 21 U/L 5 - 40 [facility] Alanine aminotransferase [Enzymatic activity/volume] in Seru m or Plasma 15 U/L 7 - 56 [facility] Anion gap 3 in Serum or Plasma 11.0 mmol/L 8.0 - 16.0 [facility] AGE 75 yrs [facility] NON-AA GFR 20 mL/min [facility] AFR AMER GFR >60 [facility] Male GFR In terprentation 20-49 yrs >60 mL/min Normal 50-59 yrs >56 mL/min Normal 60-69 yrs >49 mL/min Normal 70-79yrs >42 mL/min Normal 80 and above >35 mL/min Normal Female GFR Interpretation 20-39 yrs >60 mL/min Normal 40-49 yrs >58 mL/min Normal 50-59 yrs >51 mL/min Normal 60-69 yrs >45 mL/min Normal 70-79 yrs >39 mL/min Normal 80 and above >32 mL/min Normal ID Date Data Source [id number] 05/23/2020 07:21:00 AM EDT [facility] Name Value Range Interpretation Code Description Data Ro rce(s) Supporting Document(s) CVE PANEL [facility] LIPID PANEL Cholesterol [Mass/volume] in Serum or Plasma 153 MG/DL 131 - 200 [facility] Deprecated Triglyceride [Mass/volume] in Serum or Plasma 172 MG/DL 3 5 - 160 H [facility] HDL 46 MG/DL 29 - 86 [facility] Cholesterol in LDL [Mass/volume] in Serum or Plasma by Direc t assay 78 mg/dL 65 - 175 [facility] Cholesterol.total/Cholesterol in HDL [Mass Ratio] in Serum o r Plasma 3.3 3.2 - 4.4 [facility] LDL/HDL 1.70 1.47 - 3.22 [facility] CVE RISK CHOL/HDL LDL/HDLMEN: 1/2 AVERAGE 3.43 1.00 AVERAGE 4.97 3.55 2X AVERAGE 9.55 6.25 3X AVERAGE 23.99 7.99WOMEN: 1/2 AVERAGE 3.27 1.47 AVERAGE 4.44 3.22 2X AVERAGE 7.05 5.03 3X AVERAGE 11.04 6.14 ID Date Data Source [id number] 05/23/2020 07:21:00 AM EDT [facility] Name Value Range Interpretation Code Description Data Ro rce(s) Supporting Document(s) Hemoglobin A1c/Hemoglobin.total in Blood 5.0 % 4.4 - 6.1 [facility] {A1]{HB] ID Date Data Source [id number] 05/23/2020 07:01:00 AM EDT [facility] Name Value Range Interpretation Code Description Data Ro rce(s) Supporting Document(s) CBC W/AUTOMATED DIFF [facility] COMPLETE BLOOD COUNT Leukocytes [#/volume] in Blood by Automated count 5.5 10^3/uL 4.2 - 1 1.0 [facility] Erythrocytes [#/volume] in Blood by Automated count 3.27 10^6/uL 4. 20 - 5.40 L [facility] Hemoglobin [Mass/volume] in Blood 9.8 g/dL 12.0 - 16.0 L [facility] Hematocrit [Volume Fraction] of Blood by Automated count 32.4 % 3 7.0 - 47.0 L [facility] Erythrocyte mean corpuscular volume [Entitic volume] by Auto mated count 99.1 fL 81.0 - 101 [facility] Erythrocyte mean corpuscular hemoglobin [Entitic mass] by Automated count 30.0 pg 27.0 - 34.0 [facility] Erythrocyte mean corpuscular hemoglobin concentration [Mass/volume] by Automated count 30.2 g/dL 31.0 - 36.0 L [facility] Erythrocyte distribution width [Ratio] by Automated count 15.9 % 11.5 - 14.5 H [facility] Platelets [#/volume] in Blood by Automated count 281 10^3/uL 150 - 45 0 [facility] Platelet mean volume [Entitic volume] in Blood by Automated count 10.5 fL 7.4 - 10.4 H [facility] Neutrophils/100 leukocytes in Blood by Automated count 85.7 % 37. 0 - 80.0 H [facility] Lymphocytes/100 leukocytes in Blood by Manual count 11.4 % 25.0 - 40.0 L [facility] Monocytes/100 leukocytes in Blood by Automated count 1.3 % 3.0 - 8.0 L [facility] Eosinophils/100 leukocytes in Blood by Automated count 0.5 % 0.0 - 7.0 [facility] Basophils/100 leukocytes in Blood by Automated count 0.4 % 0.0 - 2.5 [facility] %IG 0.7 % 0.0 - 0.0 [facility] %NRBC 0.0 % 0.0 - 0.0 [facility] Neutrophils [#/volume] in Blood by Automated count 4.75 10^3/uL 2.00 - 6.90 [facility] Lymphocytes [#/volume] in Blood by Automated count 0.63 10^3/uL 0.60 - 3.40 [facility] Monocytes [#/volume] in Blood by Automated count 0.07 10^3/uL 0.00 - 0.90 [facility] Eosinophils [#/volume] in Blood by Automated count 0.03 10^3/uL 0.00 - 0.70 [facility] Basophils [#/volume] in Blood by Automated count 0.02 10^3/uL 0.00 - 0.20 [facility] #IG 0.04 10^3/uL 0.00 - 0.10 [facility] #NRBC 0.00 10^3/uL 0.00 - 0.00 [facility] MANUAL DIFF NOT INDICATED [facility] RBC MORPH NOT INDICATED [facility] ID Date Data Source [id number] 05/22/2020 07:58:00 PM EDT [facility] [address] [place] [address] PHONE: [phone] FAX: [phone] Name ..............: TR BENNETT [facility] Number ..........................: [id number] ROOM. ............: CCU3 Number ............................: [id number] Stay type.........: I/P Discharge Date...............: Admit Date .....: 05/22/20 Admit Phys .............................: REY BEVERLY Date of ..: 1945 Family Phys ...........................: CASPER Phone..............: [phone] Age.................................:75 Film# . ..............:[id number] Sex.................................:F Unsigned transcriptions are preliminary reports and do not represent a medical or legal document EKG [id number] COMPLETE:05/22/20 16:02 [place] [id number] Please See Scanned Results. Name Value Range Interpretation Code Description Data [facility] rce(s) Supporting Document(s) ID Date Data Source [id number] 05/22/2020 04:40:00 PM EDT [facility] Name Value Range Interpretation Code Description Data [facility] rce(s) Supporting Document(s) CBC W/AUTOMATED DIFF [facility] COMPLETE BLOOD COUNT Leukocytes [#/volume] in Blood by Automated count 12.8 10^3/uL 4.2 - 11.0 H [facility] Erythrocytes [#/volume] in Blood by Automated count 3.35 10^6/uL 4. 20 - 5.40 L [facility] Hemoglobin [Mass/volume] in Blood 10.2 g/dL 12.0 - 16.0 L [facility] Hematocrit [Volume Fraction] of Blood by Automated count 33.1 % 3 7.0 - 47.0 L [facility] Erythrocyte mean corpuscular volume [Entitic volume] by Auto mated count 98.8 fL 81.0 - 101 [facility] Erythrocyte mean corpuscular hemoglobin [Entitic mass] by Automated count 30.4 pg 27.0 - 34.0 [facility] Erythrocyte mean corpuscular hemoglobin concentration [Mass/volume] by Automated count 30.8 g/dL 31.0 - 36.0 L [facility] Erythrocyte distribution width [Ratio] by Automated count 16.0 % 11.5 - 14.5 H [facility] Platelets [#/volume] in Blood by Automated count 293 10^3/uL 150 - 45 0 [facility] Platelet mean volume [Entitic volume] in Blood by Automated count 9.8 fL 7.4 - 10.4 [facility] Neutrophils/100 leukocytes in Blood by Automated count 79.9 % 37. 0 - 80.0 [facility] Lymphocytes/100 leukocytes in Blood by Manual count 9.1 % 25.0 - 40.0 L [facility] Monocytes/100 leukocytes in Blood by Automated count 9.1 % 3.0 - 8.0 H [facility] Eosinophils/100 leukocytes in Blood by Automated count 0.9 % 0.0 - 7.0 [facility] Basophils/100 leukocytes in Blood by Automated count 0.5 % 0.0 - 2.5 [facility] %IG 0.5 % 0.0 - 0.0 H [facility] %NRBC 0.0 % 0.0 - 0.0 [facility] al Neutrophils [#/volume] in Blood by Automated count 10.24 10^3/uL 2. 00 - 6.90 H [facility] Lymphocytes [#/volume] in Blood by Automated count 1.16 10^3/uL 0.60 - 3.40 [facility] Monocytes [#/volume] in Blood by Automated count 1.16 10^3/uL 0.00 - 0.90 H [facility] Eosinophils [#/volume] in Blood by Automated count 0.11 10^3/uL 0.00 - 0.70 [facility] Basophils [#/volume] in Blood by Automated count 0.07 10^3/uL 0.00 - 0.20 [facility] #IG 0.06 10^3/uL 0.00 - 0.10 [facility] #NRBC 0.00 10^3/uL 0.00 - 0.00 [facility] MANUAL DIFF SEE BELOW [facility] Segmented neutrophils/100 leukocytes in Blood by Manual count 73 % 37 - 80 [facility] %LYMPH 13 % 25 - 40 L [facility] %MONO 14 % 3 - 8 [facility] MORPH NOT INDICATED [facility] ID Date Data Source [id number] 05/22/2020 04:13:00 PM EDT [facility] Name Value Range Interpretation Code Description Data Ro rce(s) Supporting Document(s) BNP >87263 PG/ML 0 - 125 H [facility] ID Date Data Source [id number] 05/22/2020 03:57:00 PM EDT [facility] Name Value Range Interpretation Code Description Data Ro rce(s) Supporting Document(s) Thyrotropin [Units/volume] in Serum or Plasma by Detec tion limit <= 0.05 mIU/L 3.67 uIU/mL 0.47 - 5.01 [facility] ID Date Data Source [id number] 05/22/2020 03:57:00 PM EDT [facility] Name Value Range Interpretation Code Description Data Ro rce(s) Supporting Document(s) Thyroxine (T4) [Mass/volume] in Serum or Plasma 8.7 UG/DL 4.5 - 12.5 [facility] ID Date Data Source [id number] 05/22/2020 03:56:00 PM EDT [facility] Name Value Range Interpretation Code Description Data Ro rce(s) Supporting Document(s) Cobalamin (Vitamin B12) [Mass/volume] in Serum or Plasma 819 PG/ML 232 - 1245 [facility] ID Date Data Source [id number] 05/22/2020 03:39:00 PM EDT [facility] Name Value Range Interpretation Code Description Data Ro rce(s) Supporting Document(s) TROPONIN T 0.15 NG/ML 0.00 - 0.10 [facility] spital CALL/ READ BACK MULUGETA PATEL ICU [facility] BY: TAD [facility] DATE/TIME [id number] [facility] ital TROPONIN T0.1 ng/ml Recommended as the c linical threshold value forTroponin T. ID Date Data Source [id number] 05/22/2020 03:38:00 PM EDT [facility] Value Range Interpretation Code Description Data Ro rce(s) Supporting Document(s) COMPREHENSIVE METABOLIC PANEL [facility] COMPREHENSIVE METABOLIC PANEL Sodium [Moles/volume] in Serum or Plasma 138 mEq/L 134 - 153 [facility] Potassium [Moles/volume] in Serum or Plasma 4.9 mEq/L 3.6 - 5.0 [facility] Chloride [Moles/volume] in Serum or Plasma 96 mEq/L 98 - 107 L [facility] Carbon dioxide, total [Moles/volume] in Serum or Plasma 31 MEQ/L 22 - 30 H [facility] Glucose [Mass/volume] in Serum or Plasma 99 MG/DL 65 - 110 [facility] BUN 40 MG/DL 7 - 21 H [facility] Creatinine [Mass/volume] in Serum or Plasma 2.3 MG/DL 0.7 - 1.5 H [facility] BUN/CREAT 17 8 - 27 [facility] Protein [Mass/volume] in Serum or Plasma 7.0 G/DL 6.3 - 8.2 [facility] Albumin [Mass/volume] in Serum or Plasma 4.1 G/DL 3.9 - 5.0 [facility] Globulin [Mass/volume] in Serum by calculation 2.9 GM/DL 2.4 - 3.2 [facility] A/G RATIO 1.4 0.8 - 2.0 [facility] Calcium [Mass/volume] in Serum or Plasma 9.1 MG/DL 8.4 - 10.2 [facility] Bilirubin.total [Mass/volume] in Serum or Plasma <0.7 MG/DL 0.2 - 1.3 [facility] Alkaline phosphatase [Enzymatic activity/volume] in Serum or Plasma 92 U/L 38 - 126 [facility] Aspartate aminotransferase [Enzymatic activity/volume] in Serum or Plasma 17 U/L 5 - 40 [facility] Alanine aminotransferase [Enzymatic activity/volume] in Seru m or Plasma 7 U/L 7 - 56 [facility] Anion gap 3 in Serum or Plasma 11.0 mmol/L 8.0 - 16.0 [facility] AGE 75 yrs [facility] al NON-AA GFR 22 mL/min [facility] AFR AMER GFR >60 [facility] Male GFR In terprentation 20-49 yrs >60 mL/min Normal 50-59 yrs >56 mL/min Normal 60-69 yrs >49 mL/min Normal 70-79yrs >42 mL/min Normal 80 and above >35 mL/min Normal Female GFR Interpretation 20-39 yrs >60 mL/min Normal 40-49 yrs >58 mL/min Normal 50-59 yrs >51 mL/min Normal 60-69 yrs >45 mL/min Normal 70-79 yrs >39 mL/min Normal 80 and above >32 mL/min Normal ID Date Data Source [id number] 05/22/2020 03:36:00 PM EDT [facility] Name Value Range Interpretation Code Description Data Ro rce(s) Supporting Document(s) Iron [Mass/volume] in Serum or Plasma 87 UG/DL 42 - 135 [facility] ID Date Data Source [id number] 05/22/2020 03:35:00 PM EDT [facility] Name Value Range Interpretation Code Description Data Ro rce(s) Supporting Document(s) Magnesium [Mass/volume] in Serum or Plasma 1.8 MG/DL 1.7 - 2.2 [facility] ID Date Data Source [id number] 05/22/2020 03:14:00 PM EDT [facility] Name Value Range Interpretation Code Description Data Ro rce(s) Supporting Document(s) Lactate [Moles/volume] in Serum or Plasma 2.2 MMOL/L 0.2 - 2.2 [facility] ID Date Data Source [id number] 05/22/2020 03:00:00 PM EDT [facility] Name Value Range Interpretation Code Description Data Ro rce(s) Supporting Document(s) DORIAN TEST POSITIVE A [facility] booker FiO2 2LNC [facility] SITE RADIAL LT [facility] pH of Arterial blood 7.41 7.34 - 7.44 [facility] Carbon dioxide [Partial pressure] in Blood 46.0 mm/HG 32.0 - 42.0 H [facility] Oxygen [Partial pressure] in Blood 63.8 mm/HG 75.0 - 100 L [facility] Bicarbonate [Moles/volume] in Blood 28.7 meq/L 20.0 - 24.0 H [facility] TCO2 30.1 meq/L 21.0 - 25.0 H [facility] Base excess in Blood by calculation 3.5 -2.0 - 2.0 H [facility] O2 SAT 92.5 % 95.0 - 98.0 L [facility] Procedure Social History No Information Vital Signs ID Date Data Source UNK Name Value Range Interpretation Code Description Data Source(s) Body temperature 97.4 [degF] 97.4 [degF] [facility] ([facility]) Body height 63 [in_i] 63 [in_i] [facility] ([facility]) 5'3" Body weight 190.00 [lb_av] 190.00 [lb_av] MEDEN T ([facility]) pt in w/c Body mass index (BMI) [Ratio] 33.7 kg/m2 33.7 k g/m2 [facility] ([facility]) Systolic blood pressure 122 mm[Hg] 122 mm[Hg] M EDENT ([facility]) Diastolic blood pressure 70 mm[Hg] 70 mm[Hg] [facility] ([facility]) Heart rate 97 /min 97 /min [facility] ([facility]) Oxygen saturation in Arterial blood by Pulse oximetry 933 % 933 % [facility] ([facility]) Body height 63 [in_i] 63 [in_i] [facility] ([facility]) 5'3" Body weight 186.00 [lb_av] 186.00 [lb_av] MEDEN T ([facility]) Body mass index (BMI) [Ratio] 32.9 kg/m2 32.9 k g/m2 [facility] ([facility]) [place] body weight 115 [lb_av] 115 [lb_av] MEDEN T ([facility]) Body weight 84.370 kg 84.370 kg [facility] ([facility]) Body surface area Derived from formula 1.87 m2 1.87 m2 [facility] ([facility]) Diastolic blood pressure 80 mm[Hg] 80 mm[Hg] [facility] ([facility]) Systolic blood pressure 180 mm[Hg] 180 mm[Hg] M EDENT ([facility]) Body temperature 90.0 [degF] 90.0 [degF] [facility] ([facility]) Body height 63 [in_i] 63 [in_i] [facility] 5'3" Body weight 76.658 kg 76.658 kg [facility] ([facility] Body weight 169.00 [lb_av] 169.00 [lb_av] MEDEN T ([facility]) Body mass index (BMI) [Ratio] 29.9 kg/m2 29.9 k g/m2 [facility] ([facility]) Heart rate 100 /min 100 /min [facility] ([facility]) Systolic blood pressure 100 mm[Hg] 100 mm[Hg] M EDENT ([facility], ) Heart rate 60 /min 60 /min [facility] ([facility]) Respiratory rate 14 /min 14 /min [facility] ( [facility]) Body height 63 [in_i] 63 [in_i] [facility] ([facility]) 5'3" Body weight 164.00 [lb_av] 164.00 [lb_av] MEDEN T ([facility]) Diastolic blood pressure 60 mm[Hg] 60 mm[Hg] [facility] ([facility]) Body mass index (BMI) [Ratio] 29.0 kg/m2 29.0 k g/m2 [facility] ([facility]) [place] body weight 115 [lb_av] 115 [lb_av] MEDEN T ([facility]) Systolic blood pressure 134 mm[Hg] 134 mm[Hg] M EDENT ([facility]) Body temperature 97.4 [degF] 97.4 [degF] [facility] ([facility]) Body height 63 [in_i] 63 [in_i] [facility] ([facility]) 5'3" Heart rate 97 /min 97 /min [facility] ([facility]) Diastolic blood pressure 64 mm[Hg] 64 mm[Hg] [facility] ([facility]) Oxygen saturation in Arterial blood by Pulse oximetry 89 % 89 % [facility] ([facility]) 3 l Body weight 164.00 [lb_av] 164.00 [lb_av] MEDEN T ([facility]) Body mass index (BMI) [Ratio] 29.0 kg/m2 29.0 k g/m2 [facility] ([facility]) Body temperature 97.0 [degF] 97.0 [degF] [facility] ([facility]) Body height 63 [in_i] 63 [in_i] [facility] ([facility]) 5'3" Body weight 154.00 [lb_av] 154.00 [lb_av] MEDEN T ([facility]) Heart rate 87 /min 87 /min [facility] ([facility]) Oxygen saturation in Arterial blood by Pulse oximetry 96 % 96 % [facility] ([facility]) Body mass index (BMI) [Ratio] 27.3 kg/m2 27.3 k g/m2 [facility] ([facility]) Systolic blood pressure 100 mm[Hg] 100 mm[Hg] M EDENT ([facility]) Diastolic blood pressure 54 mm[Hg] 54 mm[Hg] [facility] ([facility]) Respiratory rate 22 /min 22 /min [facility] ( [facility]) Body height 63 [in_i] 63 [in_i] [facility] ([facility]) 5'3" Body weight 153.00 [lb_av] 153.00 [lb_av] MEDEN T ([facility]) Body mass index (BMI) [Ratio] 27.1 kg/m2 27.1 k g/m2 [facility] ([facility]) Body temperature 97.2 [degF] 97.2 [degF] [facility] ([facility]) Systolic blood pressure 171 mm[Hg] 171 mm[Hg] M EDENT ([facility]) Diastolic blood pressure 89 mm[Hg] 89 mm[Hg] [facility] ([facility]) Heart rate 90 /min 90 /min [facility] ([facility]) Oxygen saturation in Arterial blood by Pulse oximetry 93 % 93 % [facility] ([facility]) 3 liters Respiratory rate 22 /min 22 /min [facility] ( [facility]) ID Date Data Source [id number] 06/28/2020 09:35:48 AM EDT [facility] Name Value Range Interpretation Code Description Data Source(s) WEIGHT RECORDED 163.[address] [facility] Height 63 Inches 063 Inches [facility] ID Date Data Source [id number] 06/01/2020 09:57:04 AM EDT [facility] Name Value Range Interpretation Code Description Data Source(s) WEIGHT RECORDED 158.[address] [facility] Height 63 Inches 063 Inches [facility] Patient Treatment Plan of Care Planned Activity Planned Date Details Description Data Source (s) Folic Acid 1 MG Oral Tablet 04/13/2020 12:00:00 AM EDT [facility] Docusate Sodium 100 MG Oral Capsule 04/13/2020 12:00:00 AM EDT [facility]
[2021-07-04] MEDS: ALBUTEROL 90 MCG/ACT 8GM HFA INHALER INH SCH ×2 (20:24→20:42)
--- OUTSIDE RECORDS SUMMARY | 2021-07-04 20:35 | CCD ---
Author Author [facility] Organization [facility] Address Unknown Phone Unavailable Care Team Providers Care Director Custom Name Role Phone Toney, L Priscilla STRUCTURAL ANALYST Unavailable Unavailable Toney, L Priscilla STRUCTURAL ANALYST Unavailable Unavailable Toney, L Priscilla STRUCTURAL ANALYST Unavailable Unavailable Toney, L Priscilla STRUCTURAL ANALYST Unavailable Unavailable Toney, L Priscilla STRUCTURAL ANALYST Unavailable Unavailable Toney, L Priscilla STRUCTURAL ANALYST Unavailable Unavailable Toney, L Priscilla STRUCTURAL ANALYST Unavailable Unavailable Toney, L Priscilla STRUCTURAL ANALYST Unavailable Unavailable Toney, L Priscilla STRUCTURAL ANALYST Unavailable Unavailable Toney, L Priscilla STRUCTURAL ANALYST Unavailable Unavailable Toney, L Priscilla STRUCTURAL ANALYST Unavailable Unavailable Toney, L Priscilla STRUCTURAL ANALYST Unavailable Unavailable Toney, L Priscilla STRUCTURAL ANALYST Unavailable Unavailable Toney, L Priscilla STRUCTURAL ANALYST Unavailable Unavailable Toney, L Priscilla STRUCTURAL ANALYST Unavailable Unavailable Toney, L Priscilla STRUCTURAL ANALYST Unavailable Unavailable Toney, L Priscilla STRUCTURAL ANALYST Unavailable Unavailable Toney, L Priscilla STRUCTURAL ANALYST Unavailable Unavailable Toney, L Priscilla STRUCTURAL ANALYST Unavailable Unavailable Toney, L Priscilla STRUCTURAL ANALYST Unavailable Unavailable Toney, L Prsicilla STRUCTURAL ANALYST Unavailable Unavailable Toney, L Priscilla STRUCTURAL ANALYST Unavailable Unavailable Toney, L Priscilla STRUCTURAL ANALYST Unavailable Unavailable Toney, L Priscilla STRUCTURAL ANALYST Unavailable Unavailable Toney, L Priscilla STRUCTURAL ANALYST Unavailable Unavailable KIRSCHMAN, L DANYA STRUCTURAL ANALYST Unavailable Unavailable KIRSCHMAN, L DANYA STRUCTURAL ANALYST Unavailable Unavailable KIRSCHMAN, L DANYA STRUCTURAL ANALYST Unavailable Unavailable KIRSCHMAN, L DANYA STRUCTURAL ANALYST Unavailable Unavailable KIRSCHMAN, L DANYA STRUCTURAL ANALYST Unavailable Unavailable KIRSCHMAN, L DANYA STRUCTURAL ANALYST Unavailable Unavailable KIRSCHMAN, L DANYA STRUCTURAL ANALYST Unavailable Unavailable KIRSCHMAN, L DANYA STRUCTURAL ANALYST Unavailable Unavailable KIRSCHMAN, L DANYA STRUCTURAL ANALYST Unavailable Unavailable KIRSCHMAN, L DANYA STRUCTURAL ANALYST Unavailable Unavailable KIRSCHMAN, L DANYA STRUCTURAL ANALYST Unavailable Unavailable KIRSCHMAN, L DANYA STRUCTURAL ANALYST Unavailable Unavailable KIRSCHMAN, L DANYA STRUCTURAL ANALYST Unavailable Unavailable KIRSCHMAN, L DANYA STRUCTURAL ANALYST Unavailable Unavailable KIRSCHMAN, L DANYA STRUCTURAL ANALYST Unavailable Unavailable KIRSCHMAN, L DANYA STRUCTURAL ANALYST Unavailable Unavailable KIRSCHMAN, L DANYA STRUCTURAL ANALYST Unavailable Unavailable KIRSCHMAN, L DANYA STRUCTURAL ANALYST Unavailable Unavailable KIRSCHMAN, L DANYA STRUCTURAL ANALYST Unavailable Unavailable KIRSCHMAN, L DANYA STRUCTURAL ANALYST Unavailable Unavailable KIRSCHMAN, L DANYA STRUCTURAL ANALYST Unavailable Unavailable KIRSCHMAN, L DANYA STRUCTURAL ANALYST Unavailable Unavailable KIRSCHMAN, L DANYA STRUCTURAL ANALYST Unavailable Unavailable KIRSCHMAN, L DANYA STRUCTURAL ANALYST Unavailable Unavailable KIRSCHMAN, L DANYA STRUCTURAL ANALYST Unavailable Unavailable KIRSCHMAN, L DANYA STRUCTURAL ANALYST Unavailable Unavailable KIRSCHMAN, L DANYA STRUCTURAL ANALYST Unavailable Unavailable KIRSCHMAN, L DANYA STRUCTURAL ANALYST Unavailable Unavailable KIRSCHMAN, L DANYA STRUCTURAL ANALYST Unavailable Unavailable KIRSCHMAN, L DANYA STRUCTURAL ANALYST Unavailable Unavailable KIRSCHMAN, L DANYA STRUCTURAL ANALYST Unavailable Unavailable KIRSCHMAN, L DANYA STRUCTURAL ANALYST Unavailable Unavailable KIRSCHMAN, L DANYA STRUCTURAL ANALYST Unavailable Unavailable KIRSCHMAN, L DANYA STRUCTURAL ANALYST Unavailable Unavailable KIRSCHMAN, L DANYA STRUCTURAL ANALYST Unavailable Unavailable KIRSCHMAN, L DANYA STRUCTURAL ANALYST Unavailable Unavailable KIRSCHMAN, L DANYA STRUCTURAL ANALYST Unavailable Unavailable KIRSCHMAN, L DANYA STRUCTURAL ANALYST Unavailable Unavailable KIRSCHMAN, L DANYA STRUCTURAL ANALYST Unavailable Unavailable KIRSCHMAN, L DANYA STRUCTURAL ANALYST Unavailable Unavailable KIRSCHMAN, L DANYA STRUCTURAL ANALYST Unavailable Unavailable KIRSCHMAN, L DANYA STRUCTURAL ANALYST Unavailable Unavailable KIRSCHMAN, L DANYA STRUCTURAL ANALYST Unavailable Unavailable KIRSCHMAN, L DANYA STRUCTURAL ANALYST Unavailable Unavailable KIRSCHMAN, L DANYA STRUCTURAL ANALYST Unavailable Unavailable KIRSCHMAN, L DANYA STRUCTURAL ANALYST Unavailable Unavailable KIRSCHMAN, L DANYA STRUCTURAL ANALYST Unavailable Unavailable Fish, [facility], PA-C Unavailable Unavailabl e Fish, [facility], PA-C Unavailable Unavailabl e Fish, [facility], PA-C Unavailable Unavailabl e Fish, [facility], PA-C Unavailable Unavailabl e Fish, [facility], PA-C Unavailable Unavailabl e Fish, [facility], PA-C Unavailable Unavailabl e Fish, [facility], PA-C Unavailable Unavailabl e Fish, [facility], PA-C Unavailable Unavailabl e Fish, [facility], PA-C Unavailable Unavailabl e Fish, [facility], PA-C Unavailable Unavailabl e Fish, [facility], PA-C Unavailable Unavailabl e Fish, [facility], PA-C Unavailable Unavailabl e Fish, [facility], PA-C Unavailable Unavailabl e Fish, [facility], PA-C Unavailable Unavailabl e Fish, [facility], PA-C Unavailable Unavailabl e Fish, [facility], PA-C Unavailable Unavailabl e Fish, [facility], PA-C Unavailable Unavailabl e Fish, [facility], PA-C Unavailable Unavailabl e Fish, [facility], PA-C Unavailable Unavailabl e Fish, [facility], PA-C Unavailable Unavailabl e Fish, [facility], PA-C Unavailable Unavailabl e Fish, [facility], PA-C Unavailable Unavailabl e Fish, [facility], PA-C Unavailable Unavailabl e Fish, [facility], PA-C Unavailable Unavailabl e Fish, [facility], PA-C Unavailable Unavailabl e Fish, [facility], PA-C Unavailable Unavailabl e Fish, [facility], PA-C Unavailable Unavailabl e Fish, [facility], PA-C Unavailable Unavailabl e Fish, [facility], PA-C Unavailable Unavailabl e Fish, [facility], PA-C Unavailable Unavailabl e Fish, [facility], PA-C Unavailable Unavailabl e Fish, [facility] Unavailable Unavailabl e Fish, An[facility], PA-C Unavailable Unavailabl e Fish, [facility] Unavailable Unavailabl e Fish, [facility] Unavailable Unavailabl e Fish, [facility] Unavailable Unavailabl e KIRSCHMAN, L DANYA STRUCTURAL ANALYST Unavailable Unavailable KIRSCHMAN, L DANYA STRUCTURAL ANALYST Unavailable Unavailable KIRSCHMAN, L DANYA STRUCTURAL ANALYST Unavailable Unavailable KIRSCHMAN, L DANYA STRUCTURAL ANALYST Unavailable Unavailable KIRSCHMAN, L DANYA STRUCTURAL ANALYST Unavailable Unavailable KIRSCHMAN, L DANYA STRUCTURAL ANALYST Unavailable Unavailable KIRSCHMAN, L DANYA STRUCTURAL ANALYST Unavailable Unavailable KIRSCHMAN, L DANYA STRUCTURAL ANALYST Unavailable Unavailable KIRSCHMAN, L DANYA STRUCTURAL ANALYST Unavailable Unavailable KIRSCHMAN, L DANYA STRUCTURAL ANALYST Unavailable Unavailable KIRSCHMAN, L DANYA STRUCTURAL ANALYST Unavailable Unavailable KIRSCHMAN, L DANYA STRUCTURAL ANALYST Unavailable Unavailable KIRSCHMAN, L DANYA STRUCTURAL ANALYST Unavailable Unavailable KIRSCHMAN, L DANYA STRUCTURAL ANALYST Unavailable Unavailable KIRSCHMAN, L DANYA STRUCTURAL ANALYST Unavailable Unavailable KIRSCHMAN, L DANYA STRUCTURAL ANALYST Unavailable Unavailable KIRSCHMAN, L DANYA STRUCTURAL ANALYST Unavailable Unavailable KIRSCHMAN, L DANYA STRUCTURAL ANALYST Unavailable Unavailable KIRSCHMAN, L DANYA STRUCTURAL ANALYST Unavailable Unavailable KIRSCHMAN, L DANYA STRUCTURAL ANALYST Unavailable Unavailable KIRSCHMAN, L DANYA STRUCTURAL ANALYST Unavailable Unavailable KIRSCHMAN, L DANYA STRUCTURAL ANALYST Unavailable Unavailable KIRSCHMAN, L DANYA STRUCTURAL ANALYST Unavailable Unavailable KIRSCHMAN, L DANYA STRUCTURAL ANALYST Unavailable Unavailable KIRSCHMAN, L DANYA STRUCTURAL ANALYST Unavailable Unavailable KIRSCHMAN, L DANYA STRUCTURAL ANALYST Unavailable Unavailable KIRSCHMAN, L DANYA STRUCTURAL ANALYST Unavailable Unavailable KIRSCHMAN, L DANYA STRUCTURAL ANALYST Unavailable Unavailable KIRSCHMAN, L DANYA STRUCTURAL ANALYST Unavailable Unavailable KIRSCHMAN, L DANYA STRUCTURAL ANALYST Unavailable Unavailable KIRSCHMAN, L DANYA STRUCTURAL ANALYST Unavailable Unavailable KIRSCHMAN, L DANYA STRUCTURAL ANALYST Unavailable Unavailable KIRSCHMAN, L DANYA STRUCTURAL ANALYST Unavailable Unavailable KIRSCHMAN, L DANYA STRUCTURAL ANALYST Unavailable Unavailable KIRSCHMAN, L DANYA STRUCTURAL ANALYST Unavailable Unavailable KIRSCHMAN, L DANYA STRUCTURAL ANALYST Unavailable Unavailable KIRSCHMAN, L DANYA STRUCTURAL ANALYST Unavailable Unavailable KIRSCHMAN, L DANYA STRUCTURAL ANALYST Unavailable Unavailable KIRSCHMAN, L DANYA STRUCTURAL ANALYST Unavailable Unavailable KIRSCHMAN, L DANYA STRUCTURAL ANALYST Unavailable Unavailable KIRSCHMAN, L DANYA STRUCTURAL ANALYST Unavailable Unavailable KIRSCHMAN, L DANYA STRUCTURAL ANALYST Unavailable Unavailable KIRSCHMAN, L DANYA STRUCTURAL ANALYST Unavailable Unavailable KIRSCHMAN, L DANYA STRUCTURAL ANALYST Unavailable Unavailable KIRSCHMAN, L DANYA STRUCTURAL ANALYST Unavailable Unavailable KIRSCHMAN, L DANYA STRUCTURAL ANALYST Unavailable Unavailable KIRSCHMAN, L DANYA STRUCTURAL ANALYST Unavailable Unavailable NED, L FARRUKH MD Unavailable [...] Unavailable Haider Sommer MD Unavailable Unavailable Haider Smomer MD Unavailable Unavailable Haider Sommer MD Unavailable [...] MAQBOOL SILVER MD Unavailable Unavailable REY, MAQBOOL SIVLER MD Unavailable Unavailable REY, MAQBOOL SILVER MD [...] SEMEL, Marianela HELMS MD Unavailable Unavailable SEMEL, Marainela HELMS MD Unavailable Unavailable SEMEL, Marianela HELMS [...] is protected by Article 27-F of the [place] Public Health law. If you continue you may have access to information: Regarding HIV / AIDS; Provided by facilities licensed or operated by the [facility] Office of Mental Health; or Provided by the [facility] Office for People With Developmental Disabilities. If such information is present, then the following [facility] mandated warning applies: This information has been [...] law may result in a fine or shelter sentence or both. A general authorization for the release of medical or other information is NOT sufficient authorization for further disc losure. Allergies and Adverse Reactions Type Description Substance Reaction Status Data Source(s ) Drug allergy DILANTIN DILANTIN STOMACH PAIN [facility] Drug allergy CODEINE CODEINE STOMACH PAIN [facility] Family History Family Member Name Family Member Gender Family Member Status Date o f Status Description Data Source(s) Unknown Male Problem [facility] ([facility]) () - in neck Unknown Female Problem [facility] ([facility]) Unknown Female Problem [facility] ([facility]) Unknown Female Problem [facility] ([facility]) Unknown Female Problem [facility] ([facility]) Unknown Female Problem [facility] ([facility]) Encounters Encounter Providers Location Date Indications Data Source(s ) Outpatient Attender: SAM Neff/Patricia/Damon/Re indl 06/12/2021 09:00:00 AM EDT [facility] Office Visit Attender: Marly MIKE PA-C Physical Therapy 06/01/2021 05:15:00 PM EDT [facility] ([facility] ) Office Visit Attender: Marly MIKE PA-C Physical Therapy 05/25/2021 09:45:00 AM EDT [facility] ([facility] ) OFFICE OUTPATIENT VISIT 15 MINUTES Attender: Marly MIKE PA-C Physical Therapy 05/09/2021 10:15:00 AM EDT [facility] ([facility] ) Outpatient Attender: Priscilla Neff/Patricia/Damon/Reindl 04/17/2021 10:00:00 AM EDT [facility] ([facility] ) Emergency Attender: FARRUKH CASH MDConsultant: DANYA STONE STRUCTURAL ANALYST 04/12/2021 11:40:00 AM EDT - 04/12/2021 03:47:[address] [facility] Patient discharged. Outpatient Attender: SCOOTER QUINONES MD Main Office 03/23/2021 02:45:0 0 PM EDT [facility] ([facility]) Outpatient Referrer: SCOOTER QUINONES MD 2021 11:21:[address] [facility] Office Visit Attender: Haider Sommer MD Main office [facility] 01/03/2021 02:15:00 PM EDT [facility] ([facility] ) Outpatient Attender: Haider Sommer MDConsultant: DANYA WATERMAN STRUCTURAL ANALYST 12/18/2020 10:38:00 AM EDT - 12/18/2020 11:38:[address] [facility] Patient discharged. Emergency Attender: CHIOMA BLACKBURNConsultant: DANYA STONE STRUCTURAL ANALYST 11/27/2020 03:26:00 PM EDT - 11/27/2020 05:44:[address] [facility] Patient discharged. Outpatient Attender: Marly MIKE PA-C Physical Therapy 11/16/2020 10:15:00 AM EST [facility] ([facility]) Outpatient Attender: Haider Sommer MD Main office - [place] 11/16/2020 08:30:00 AM EST [facility] ([facility]) Outpatient Attender: DANYA JETT NP [facility] 09:30:00 AM EST [facility] ([facility]) Outpatient Attender: SILVER PETERSON MDConsultant: DANYA STONE NP 09/12/2020 01:20:00 PM EST - 09/12/2020 02:20:00 PM [facility] Outpatient Attender: SILVER PETERSON MDConsultant: DANYA STONE NP 08/09/2020 02:27:00 PM EST - 08/09/2020 03:27:00 PM [facility] Outpatient Attender: SILVER PETERSON MD Medical [facility] 08/09 12:30:00 PM EST [facility] ([facility]) Outpatient Attender: DANYA JETT NP [facility] 09:15:00 AM EST [facility] ([facility]) Outpatient Attender: SILVER PETERSON MD [facility] 06/28 02:00:00 PM EDT [facility] ([facility]) Inpatient Attender: SILVER PETERSON MDConsultant: DANYA STONE NP 05/28/2020 12:30:00 PM EDT - 06/13/2020 11:02:[address] [facility] Patient discharged. Inpatient Attender: SILVER PETERSON MDConsultant: DANYA STONE NP 05/22/2020 02:00:00 PM EDT - 05/28/2020 11:00:[address] [facility] Patient discharged. Outpatient Attender: SILVER PETERSON MDConsultant: DANYA STONE NP 05/01/2020 05:05:00 PM EDT - 05/01/2020 06:05:[address] [facility] Immunizations Vaccine Date Status Description Data Source(s) COVID-19 VACCINE Connor 11/22/2020 12:00:00 AM EDT completed [facility] Vaccine Series Complete: YESThis Data wa s Submitted to [facility]. Medications Medication Brand Name Start Date Product Form Dose Route Admi nistrative Instructions Pharmacy Instructions Status Indications Reaction Description Data Source(s) 2 ML Sodium Hyaluronate 10 MG/ML Prefilled Syringe [Euflexxa ] Euflexxa 05/25/2021 12:00:00 AM EDT active [facility] ([facility]) 30 ACTUAT fluticasone furoate 0.2 MG/ACT UAT / vilanterol 0.025 MG/ACTUAT Dry Powder Inhaler [Breo] Breo Ellipta 04/17/2021 12:00:00 AM EDT OR AL active [facility] ([facility]) Accu-Chek Gisele Plus 03/21/2021 12:00:00 AM EDT active [facility] ([facility]) Lidocaine 0.05 MG/MG Topical Ointment Lidocaine 12/12/2020 12:00:00 AM EDT active [facility] ([facility]) Covid-19 vaccine, Unspecified 11/22/2020 12:00:00 AM EDT completed [facility] ([facility]) Medication administered onsite sacubitril 24 MG / valsartan 26 MG Oral Tablet [Entresto] En tresto 11/01/2020 12:00:00 AM EST active M [facility]ENT ([facility]) Calcitriol 0.52193 MG Oral Capsule Calcitriol 09/12/2020 12:00:00 AM [...] times a day Hold for loose stools [facility] Folic Acid 1 MG Oral Tablet folic acid (FOLVITE) 1 MG tablet folic acid (FOLVITE) 1 MG tablet 04/13/2020 12:00:00 AM EDT 1 mg Oral active Take 1 tablet (1 mg total) by mouth daily [facility] Insurance Providers Payer name Policy type / Coverage type Policy ID Covered constitution party ID Covered constitution party's relationship to vance Policy Vance Plan Information Ghi FHP-(DO Not Use) Medigap Part B [id number] Self 0 [id number] Ghi FHP-(DO Not Use) Medigap Part B [id number] Self 0 [id number] Ghi FHP-(DO Not Use) Medigap Part B [id number] Self 0 [id number] Ghi FHP-(DO Not Use) Medigap Part B [id number] Self Ghi FHP-(DO Not Use) Medigap Part B [id number] Self 0 [id number] Ghi FHP-(DO Not Use) Medigap Part B [id number] Self 0 [id number] Ghi FHP-(DO Not Use) Medigap Part B [id number] Self 0 [id number] UHC UNITED MEDICARE COMPLETE [id number] Self [id number] MEDICARE [id number] [facility] [id number] Medicare [place] Medigap Part B [id number] Self 0 [id number] [facility] [id number] Self [id number] [facility] [id number] [facility] [id number] Self Medicare [place] Medigap Part B [id number] Self 0 [id number] Medicare [place] Medigap Part B [id number] Self 0 [id number] Medicare [place] Medigap Part B [id number] Self 0 [id number] Medicare [place] Medigap Part B [id number] Self 0 [id number] Medicare [place] Medigap Part B [id number] Self 0 [id number] Medicare [facility] [id number] Self [id number] Medicare Advantage [facility] [id number] Self UHC UNITED MEDICARE COMPLETE G [id number] Self [id number] [facility] ([facility]) Commercial [id number] Self [id number] [facility] ([facility]) Medigap Part B [id number] Self [id number] [facility] ([facility]) [facility] Part B [id number] Self [id number] [facility] ([facility]) Commercial [id number] Self [id number] [facility] ([facility]) Commercial [id number] Self [id number] [facility] ([facility]) [facility] Part B [id number] Self [id number] [employer] [id number] SP [id number] AMER PROG [employer] G [id number] Self [id number] WELLCARE [id number] SP [id number] WELLCARE [id number] SP [id number] WELLCARE [id number] SP [id number] WELLCARE MEDICARE [id number] xxxxxxxxx [id number] WELLCARE MEDICARE [id number] Mahsa 09 [id number] WELLCARE MEDICARE [id number] Mahsa [id number] INSURANCE COVID-19 COVID Mahsa C OVID [employer] Commercial [id number] Self [id number] [facility] [id number] SP [id number] [employer]/IVORIAN O [id number] S [id number] [employer] MCR -I/P [id number] 18 [id number] MEDICARE PART A SHADOW BILLING [id number] 18 [id number] [employer] Commercial [id number] Self [id number] MEDICARE COMPLETE [id number] SP [id number] [employer] MCR [id number] 18 [id number] [employer] [place] [id number] 18 [id number] [employer] Commercial [id number] Self [id number] MEDICARE COMPLETE [id number] SP [id number] MEDICARE COMPLETE-UHC O [id number] S [id number] [employer] -O/P [id number] 18 [id number] [employer] [id number] SP [id number] WELLCARE [id number] SP [id number] WELLCARE O [id number] S [id number] INSURANCE COVID-19 [id number] xxxxx [id number] MEDICARE [id number] SP [id number] A INSURANCE COVID-19 COVID Mahsa C OVID [employer]/UNHC MEDICARE -CLINIC [id number] 18 [id number] [employer]/UNHC MEDICARE-O/P [id number] 18 [id number] MEDICARE [id number] SP [id number] [employer] [id number] SP [id number] MEDICARE COMPLETE-UHC O [id number] S [id number] MEDICARE COMPLETE-UHC O [id number] S [id number] INSURANCE COVID-19 COVID Mahsa C OVID WELLCARE -I/P [id number] 18 [id number] WELLCARE - SWING [id number] 18 [id number] WELLCARE -O/P [id number] 18 [id number] [facility] Commercial [id number] Self MEDICARE UNAVAILABLE SP UNAVAILA BLE OTHER LIABILITY O [id number] O [id number] OTHER LIABILITY [id number] SP [id number] [employer] O [id number] S [id number] MEDICARE COMPLETE [id number] SP [id number] EVERCARE [id number] SP [id number] [employer] [id number] SP [id number] [employer] [id number] SP [id number] MEDICARE [id number] SP [id number] A [employer] [id number] SP [id number] [employer] [id number] SP [id number] [employer] OPTIONS [id number] SP [id number] MEDICARE PART A SHADOW BILLING [id number] 18 [id number] [employer] UN MEDICARE -PHYSICIAN [id number] 18 [id number] [employer]/UNHC MEDICARE- [id number] 18 [id number] MEDICARE [id number] SP [id number] [facility] P [id number] S [id number] UNHC AMERICHOICE XIX -HMO [id number] 18 [id number] MEDICARE COMPLETE-[facility] P [id number] S [id number] [employer] Commercial [id number] Self [id number] A Problems, Conditions, and Diagnoses Code Display Name Description Problem Type Effective Dates Data Source(s) T29302 Personal history of nicotine dependence Personal history of nicotine dependence Diagnosis 04/12/2021 11:40:[address] [facility] Z8701 Personal history of pneumonia (recurrent ) Personal history of pneumonia (recurrent) Diagnosis 04/12/2021 11:40:[address] 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 [id number] CONTACT WITH AND SUSPECTED EXPOSURE TO C OVID-19 CONTACT WITH AND SUSPECTED EXPOSURE TO COVID-19 Diagnosis 04/12/2021 11:40:00 AM EDT [facility] E119 Type 2 diabetes mellitus without complic ations Type 2 diabetes mellitus without complications Diagnosis 04/12/2021 11:40:00 AM EDT [facility] I10 Essential (primary) hypertension Essential (primary) h ypertension Diagnosis 04/12/2021 11:40:[address] [facility] [facility] J441 Chronic obstructive pulmonary disease wi th (acute) exacerbation Chronic obstructive pulmonary disease with (acute) exacerbation Diagnosis 04/12/2021 11:40:[address] [facility] R05 Cough Cough Diagnosis 04/12/2021 11:40:[address] 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 R2681 Unsteadiness on feet Unsteadiness on feet Diagnosis 12/18/2020 10:38:[address] [facility] G4089 Other seizures Other seizures Diagnosis 12/18/2020 10:38: [address] [facility] G250 Essential tremor Essential tremor Diagnosis 12/18/2020 10 :38:[address] [facility] [id number] Unspecified place in unspeci fied non-institutional (private) residence as the place of occurrence of the external cause Unspecified place in unspecified non-institutional (private) residence as the place of occurrence of the external cause Diagnosis 11/27/2020 03:26:[address] [facility] U037CCP Fall on same level from slip ping, tripping and stumbling without subsequent striking against object, initial encounter Fall on same level from slipping, tripping and stumbling without subsequent striking against object, initial encounter Diagnosis 11/27/2020 03:26:[address] [facility] D5838PF Contusion of left hip, initial encounter Contusion of left hip, initial encounter Diagnosis 11/27/2020 03:26:[address] [facility] F1518TD Contusion of right knee, initial encount er Contusion of right knee, initial encounter Diagnosis 11/27/2020 03:26:[address] [facility] J181 Lobar pneumonia, unspecified organism Lo bar pneumonia, unspecified organism Diagnosis 11/27/2020 03:26:[address] [facility] U52693B Contusion of left front wall of thorax, initial encounter Contusion of left front wall of thorax, initial encounter Diagnosis 03:26:[address] 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, lumbar region Unspecified inflammatory spondylopathy, lumbar region Diagnosis 09/12/2020 01:20:0 0 PM [facility] [id number] Unspecified injury of left elbow, initia l encounter Unspecified injury of left elbow, initial encounter Diagnosis 09/12/2020 01:20:00 PM [facility] T2354PD Unspecified injury of lower back, initia l encounter Unspecified injury of lower back, initial encounter Diagnosis 09/12/2020 01:20:00 PM [facility] D649 Anemia, unspecified Anemia, unspecified Diagnosis 0 09/12/2020 01:20:00 PM [facility] E8342 Hypomagnesemia Hypomagnesemia Diagnosis 08/09/2020 02:27: 00 PM [facility] I509 Heart failure, unspecified Heart failure, unspecified Diagnosis 08/09/2020 02:27:00 PM [facility] W43245 Presence of other cardiac implants and g rafts Presence of other cardiac implants and grafts Diagnosis [facility]/28[facility] Unspecified atrial fibrillation Unspecified atrial fib rillation Diagnosis 05/28/2020 [facility] E875 Hyperkalemia Hyperkalemia Diagnosis 05/28/2020 12:30:[facility] Z954 Presence of other heart-valve replacemen t Presence of other heart-valve replacement Diagnosis 05/28/2020 [facility] Z66 Do not resuscitate Do not resuscitate Diagnosis 0 12:30[facility] N189 Chronic kidney disease, unspecified Chronic kidn ey disease, unspecified Diagnosis 05/28/2020 12:30:[address] [facility] N179 Acute kidney failure, unspecified Acute kidney f ailure, unspecified Diagnosis 05/28/2020 12:30:[address] [facility] J9602 Acute respiratory failure with hypercapn ia Acute respiratory failure with hypercapnia Diagnosis 05/28/2020 12:30:[address] [facility] M6281 Muscle weakness (generalized) Muscle weakness (general ized) Diagnosis 05/28/2020 12:30:[address] [facility] I5020 Unspecified systolic (congestive) heart failure Unspecified systolic (congestive) heart failure Diagnosis 05/28/2020 12:30:00 PM EDT [facility] R600 Localized edema Localized edema Diagnosis 05/22/2020 02:0 0:[address] [facility] E8351 Hypocalcemia Hypocalcemia Diagnosis 05/22/2020 02:00:[address] [facility] V37437 Nicotine dependence, cigarettes, uncompl icated Nicotine dependence, cigarettes, uncomplicated Diagnosis 05/22/2020 02:00:00 PM EDT [facility] J449 Chronic obstructive pulmonary disease, u nspecified Chronic obstructive pulmonary disease, unspecified Diagnosis 05/22/2020 02:00:00 PM EDT [facility] Z87.891 Ex-smoker Ex-smoker Problem 04/17/2021 12:00:00 AM ED T [facility] ([facility], ) J96.12 Chronic hypercapnic respiratory failure Chronic hypercapnic respiratory failure Problem 04/17/2021 12:00:00 AM EDT [facility] ([facility], ) 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 Problem 11/16/2020 12:00:00 AM EST [facility] ([facility], ) R26.81 Abnormal gait Abnormal gait Problem 11/16/2020 12:00:00 AM EST [facility] ([facility], ) G25.0 Essential tremor Essential tremor Problem 11/16/2020 12 :00:00 AM EST [facility] ([facility] ) Surgeries/Procedures Procedure Description Date Indications Data Source(s) Insertion Of Tunneled Centrally Inserted Central Venous Cath eter 06/12/2021 12:00:00 AM EDT [facility] ([facility]) Ultrasound Guidance For Vascular Access Requiring Ultrasound Eval 06/12/2021 12:00:00 AM EDT [facility] ([facility]) Fluoroscopic Guidance For Central Venous Access Device Place ment 06/12/2021 12:00:00 AM EDT [facility] ([facility]) [facility] HOSPITAL CARE/DAY 25 MINUTES 06/12/2021 12:00:00 AM EDT [facility] ([facility]) ARTHROCENTESIS ASPIR&/INJECTION MAJOR JT/BURSA 021 12:00:00 AM EDT [facility] ([facility]) ARTHROCENTESIS ASPIR&/INJECTION MAJOR JT/BURSA 021 12:00:00 AM EDT [facility] ([facility]) ARTHROCENTESIS ASPIR&/INJECTION MAJOR JT/BURSA 021 12:00:00 AM EDT [facility] ([facility]) OFFICE OUTPATIENT VISIT 15 MINUTES 05/09/2021 12:00:00 AM EDT [facility] ([facility]) DEMO&/EVAL OF PT UTILIZ AERSL GEN/NEB/INHLR/IPPB 04/17 12:00:00 AM EDT [facility] ([facility], ) OFFICE OUTPATIENT NEW 45 MINUTES 04/17/2021 12:00:00 A M EDT [facility] ([facility], ) ELECTROENCEPHALOGRAM W/REC AWAKE&ASLEEP 01/08/2021 12: 00:00 AM EDT [facility] ([facility] ) ELECTROENCEPHALOGRAM W/REC AWAKE&ASLEEP 01/08/2021 12: 00:00 AM EDT [facility] ([facility] ) PROGRAM EVAL IMPLANTABLE IN PRSN MULTI LD PACER 2020 12:00:00 AM EDT [facility] ([facility]) ARTHROCENTESIS ASPIR&/INJECTION MAJOR JT/BURSA 021 12:00:00 AM EST [facility] ([facility]) RADIOLOGIC EXAM KNEE COMPLETE 4/MORE VIEWS 11/16/2020 12:00:00 AM EST [facility] ([facility]) OFFICE OUTPATIENT VISIT 25 MINUTES 11/16/2020 12:00:00 AM EST [facility] ([facility]) ECG ROUTINE ECG W/LEAST 12 [...] of Chest and Abdomen 06/05/2020 12:00:00 AM [facility] Radiography of Chest Plain Radiography of Chest 2019 12:00:00 AM [facility] Monitoring of Cardiac Electrical Activity, External Ap proach Monitoring of Cardiac Electrical Activity, External Approach 05/28/2020 12:00:00 AM [facility] Introduction of Anesthetic Agent into Re spiratory Tract, Via Natural or Artificial Opening Introduction of Anesthetic Agent into Re spiratory Tract, Via Natural or Artificial Openin 05/28/2020 12:00:00 AM [facility] Introduction of Vasopressor into Peripheral Vein, Perc utaneous Approach Introduction of Vasopressor into Peripheral Vein, Percutaneous Approach 05/28/2020 12:00:00 AM [facility] Introduction of Electrolytic and Water B alance Substance into Peripheral Vein, Percutaneous Approach Introduction of Electrolytic and Water B alance Substance into Peripheral Vein, Percutaneous Approach 05/28/2020 12:00:00 AM [facility] Results ID Date Data Source [id number] 06/13/2021 08:25:00 AM EDT [facility] Name Value Range Interpretation Code Description Data Ro rce(s) Supporting Document(s) SARS coronavirus 2 RNA [Presence] in Res piratory specimen by AMARA with probe detection POSITIVE [facility] This lab was ordered by [facility] a nd reported by [facility]. ID Date Data Source [id number] 06/09/2021 04:08:00 AM EDT [facility] Name Value Range Interpretation Code Description Data Ro rce(s) Supporting Document(s) SARS coronavirus 2 RNA [Presence] in Res piratory specimen by AMARA with probe detection NEGATIVE [facility] This lab was ordered by [facility] a nd reported by [facility]. ID Date Data Source [id number] 06/08/2021 11:44:00 PM EDT [facility] ([facility] [...] r esult Above high normal [facility] (Silver Petersno MD) Laboratory test finding (navigational concept) 1 [...] (Silver Peterson MD) ID Date Data Source [id number] 06/08/2021 07:51:00 PM EDT [facility] Name Value Range Interpretation Code Description Data Ro rce(s) Supporting Document(s) SARS-CoV-2 (COVID 19) NEGATIVE - SARS-CoV-2 (COVID19) [facility] This lab was ordered by [facility] a nd reported by [facility]. ID Date Data Source [id number] 04/12/2021 11:40:[address] [facility] [address] [facility] Emergency Department [address] [place] [address] Phone #: ext- [phone] 04/12/2021 11:39 Patient: DONALD ARMANDO [facility] [id number] Sex: F : 1945 Age: 76yWEIGHT:84.8 kg [...] Osmar(Symptomatic as Luis Whalen RNDefined by CDC) P.A.-C;([id number]) [address] [facility] Emergency Department [address] [place] [address] Phone #: ext- [phone] 04/12/2021 11:39 Patient: DONALD ARMANDO [facility] [id number] Sex: F : 1945 Age: 76y(Unknown if [...] W/O Cont STAT 13:42 04/12/2021 13:45 Osmar(Oxygen?(No)) Lius Whalen RN P.A.-C; Reason for Study: NO [...] Dose: 125 Luis Whalen RN [address] [facility] Emergency Department [address] [place] [address] Phone #: ext- [phone] 04/12/2021 11:39 Patient: DONALD ARMANDO Sex: F : 1945 Age: 76ymg (X1) P.A.-C;GENERAL ORDERSOrder Description Priority Entered Acknowledged InitialedBlood Pressure 12:04/12/2021 12:19 Marcellus Whalen RN P.A.-C;Weighter 12:04/12/2021 12:19 Osmar(continuous) Luis Whalen RN P.A.-C;EKG 12:04/12/2021 12:27 Chari Wooten burlap bag sewerDamaso P.A.-C; Ccma4PGC 12:17 04/12/2021 12:19 Osmar Whalen RN P.A.-C;Obtain [...] Luis Wooten P.A.-C (23:23 04/12/2021)] [address] [facility] Emergency Department [address] [place] [address] Phone #: ext- [phone] 04/12/2021 11:39 Patient: DONALD ARMANDO Sex: F : 1945 Age: 76y[Electronically locked by Osmar Whalen RN (15:46 04/12/2021)] Name Value Range Interpretation Code Description Data Ro rce(s) Supporting Document(s) ID Date Data Source [id number] 04/12/2021 11:40:[address] [facility] [address] [facility] Emergency Department [address] [place] [address] Phone #: ext- [phone] 04/12/2021 11:39 Patient: [...] Oral 50mcg, daily [address] [facility] Emergency Department [address] [place] [address] Phone #: ext- [phone] 04/12/2021 11:39 Patient: DONALD ARMANDO Sex: F [...] days -- Dispense 5 tablet. Refills: 0.Substitution permitted.[id number] [id number]. .azithromycin 250 mg tablet Take 2 tablet single dose for 1 days -- Take 2 tabs by mouth and day 1`andthen 1 tab by mouth for days 2-5. Dispense 6 tablet. Refills: 0. Substitution permitted.[facility] #[id number] - [address] [place], [place] [id number]. . -- Luis Wooten P.A.-C Name Value Range Interpretation Code Description Data [facility](s) Supporting Document(s) ID Date Data Source [id number] 04/12/2021 11:40:00 AM EDT [place] [address] [facility] Emergency Department [address] [place] [address] Phone #: ext- [phone] 04/12/2021 11:39 Patient: [...] Name Value Range Interpretation Code Description Data [facility](s) Supporting Document(s) ID Date Data Source [id number] 04/12/2021 11:40:[address] [facility] [address] [facility] Emergency Department [address] [place] [address] Phone #: ext- [phone] 04/12/2021 11:39 Patient: [...] -- Dispense 5 tablet. Refills: 0.Substitution permitted.Pharmacy [id number] [place] [address]. .azithromycin 250 mg tablet Take 2 tablet single dose for 1 days -- Take 2 tabs by mouth and day 1`andthen 1 tab by mouth for days 2-5. Dispense 6 tablet. Refills: 0. Substitution permitted.Pharmacy - [facility] #[id number] [id number]. .Follow-up:Return to the emergency department as needed. Follow up with your healthcare provider in about twodays if not better. Call for an appointment. Follow up with a certified maintenance welder and car hiker as scheduled.Understanding of the discharge instructions verbalized by patient. ADDITIONAL INFORMATIONCOPD Flare [address] [facility] Emergency Department [address] [place] [address] Phone #: ext- [phone] 04/12/2021 11:39 Patient: DONALD ARMANDO Sex: F [...] of a different color [address] [facility] Emergency Department [address] [place] [address] Phone #: ext- [phone] 04/12/2021 11:39 Patient: DONALD ARMANDO Sex: F : 1945 Age: 76y Tiredness, [...] the infection has cleared. 4 General Instructions [facility] Emergency Department [address] [place] [address] Phone #: ext- [phone] 04/12/2021 11:39 Patient: DONALD ARMANDO [facility] [id number] Sex: F : 1945 Age: 76y If [...] and fish, and low-fat dairy products.Preventing a qocoh-tpEwxma-tvf happen. But the best way to treat [...] stay inside when possible. [address] [facility] Emergency Department [address] [place] [address] Phone #: ext- [phone] 04/12/2021 11:39 Patient: DONALD ARMANDO [facility] [id number] Sex: F : 1945 Age: 76y Try [...] your healthcare provider about your ability to: Hilton in your normal environment Correctly use inhaler (or your medicine delivery systems) Hilton with other conditions you have and their [...] or bloody mucus (sputum) [address] [facility] Emergency Department [address] [place] [address] Phone #: ext- [phone] 04/12/2021 11:39 Patient: DONALD ARMANDO Sex: F : 1945 Age: 76y You don't start to get better within 24 hours Swelling of your ankles gets worse Weakness [phone] [employer] [address] [place] [address]. All rights reserved. This information is not [...] low-grade fever. Bronchitis usually [address] [facility] Emergency Department [address] [place] [address] Phone #: ext- [phone] 04/12/2021 11:39 Patient: DONALD ARMANDO [facility]#: [id number] Sex: F : 1945 Age: 76ylasts 7 [...] away from secondhand smoke. You may use gdhq-bbq-dvdptnv medicines to control fever or pain, unless [...] loosen mucus in your nose and lungs. Mkps-ekn-vovuxsd cough, cold, and sore-throat medicines will not [...] Coughing up more sputum [address] [facility] Emergency Department [address] [place] [address] Phone #: ext- [phone] 04/12/2021 11:39 Patient: DONALD ARMANDO Sex: F : 1945 Age: 76y Weakness, drowsiness, headache, facial pain, ear pain, or a stiff neckCall 911Call 911 if any of these occur. Coughing up blood Weakness, drowsiness, headache, or stiff neck that get worse Trouble breathing, wheezing, or pain with breathing [phone] [employer] [address] [place] [address]. All rights reserved. This information is not intended as asubstitute for professional medical care. Always follow your healthcare professional's instructions. You have been given the following additional information: COPD Flare Bronchitis, Antibiotic Treatment (Adult)(Electronically signed by Luis Wooten P.A.-C 04/12/2021 23:23) Name Value Range Interpretation Code Description Data Ro rce(s) Supporting Document(s) ID Date Data Source [id number] 04/12/2021 11:40:[address] [facility] 1 Clinical Report - Nurses [facility] Emergency Department [address] [place] [address] Phone #: [phone] puq- [phone] 04/12/2021 11:39 Patient: DONALD ARMANDO Sex: F [...] and was sent here for possible CHF).Treatment PROGRAM TECHNICIAN:Recently seen in the office.SEPSIS SCREEN: SIRS SCREEN [...] Whalen RN. 2 Clinical Report - Nurses [facility] Emergency Department [address] [place] [address] Phone #: ext- [phone] 04/12/2021 11:39 Patient: DONALD ARMANDO Sex: F [...] 2 seconds. 3 Clinical Report - Nurses [facility] Emergency De partment [address] [place] [address] Phone #: ext- [phone] 04/12/2021 11:39 Patient: DONALD ARMANDO Sex: F : 1945 Age: 76y EXTREMITIES: Bilateral 1+ pitting edema of the lower extremities involving both lower legs. SKIN: Skin is warm and dry. Normal skin turgor. --11:55 04/12/21 Osmar Whalen RN.NURSING PROGRESS NOTESOxygen administered by nasal cannula at 3 liters. lottery sales clerk, NIBP monitor and pulse oximeterplaced on patient; engine emission technician- Lead II; monitor alarms on. Patient gowned. [...] and shown to the PA. --12:51 04/12/21 [facility] [place] [address] 13:48 04/12/2021 Solu-Medrol (methylPREDNISolone Sodium Succ) IVP [...] maintained @ 93% on 3L). --15:07 04/12/21 [facility] ( Patient was provided with a cup of coffee and a sandwich.). --15:08 04/12/21 [facility] [place] [address] 15:28 04/12/2021 Si te #1 removed upon discharge. Catheter intact. Manual pressure and bandage applied. --15:28 04/12/21 Osmar Whalen RN.DISPOSITION / DISCHARGE 4 Clinical Report - Nurses [facility] Emergency Department [address] [place] [address] Phone #: ext- [phone] 04/12/2021 11:39 Patient: DONALD ARMANDO Sex: F : 1945 Age: 76y Condition at departure: improved and stable. Discharge instructions provided and reviewed with the patient. Reviewed medication(s) side effects, precautions, dosing and course information. Prescription(s) sent electronically to pharmacy. Patient verbalized understanding. Written instructions provided in Mosotho. The patient was discharged by the physician general office assistant. She was discharged home and accompanied [...] rce(s) Supporting Document(s) ID Date Data Source [id number] 04/12/2021 11:40:[address] [facility] 1 Clinical Report - Physicians/Mid Levels [facility] Emergency Department [address] [place] [address] Phone #: ext- [phone] 04/12/2021 11:39 Patient: [...] Substance Problems. 2 Clinical Report - Physicians/Mid [facility] Emergency Department [address] [place] [address] Phone #: ext- [phone] 04/12/2021 11:39 Patient: DONALD ARMANDO [facility] [id number] Sex: F : 1945 Age: 76y Hypertension. [...] movement. 3 Clinical Report - Physicians/Mid Levels [facility] Emergency Department [address] [place] [address] Phone #: ext- [phone] 04/12/2021 11:39 Patient: DONALD ARMANDO [facility]#: [id number] Sex: F : 1945 Age: 76y Abdomen: [...] In Progress Exam [place]OR[place] W/[place] [address] PHONE: [phone] FAX: [phone] Name .................. : TR Whitley Acct Number.................. : [id number] [id number] Stay type ............. : E/R Discharge Date......... ... : Admit Date ......... : 04/12/21 [facility] .................... [facility] Date of ....... : 1945 Family Phys ................... : [employer] Phone .................. : [phone] Age ................................ : 76 Film# .................. .:[id number] Sex ................................. : F Unsigned transcriptions are preliminary reports and do not represent a medical or legal document CT THORAX W/O CONTRAST [id number] COMPLETE:04/12/21 13:42 33223 Reason(s): NO CONTRAST: ? Abnormal CXR portable CT CHEST WITHOUT IV CONTRAST INDICATION: Pleural-based opacities seen on the left side, uncertain etiology. CT recommended. COMPARISON: Chest x-ray 04/12/2021, CT10/28/19 CONTRAST: None One or more of the following dose reduction techniques were utilized in effectively 4 Clinical Report - Physicians/Mid Levels [facility] Emergency Department [address] [place] [address] Phone #: ext- [phone] 04/12/2021 11:39 Patient: [...] ribs. These are new [address] [place], [place] [address] [id number]: [phone] FAX: [phone] .................. : TR Whitley Acct Number.................. : [id number]. ................. : TR-05 MR Number ................... : [id number] type ............. : E/R Discharge Date......... ... :Admit Date ......... : 04/12/21 Admit Phys .................... : COONEYNORMDate of ....... : 1945 Family Phys ................... : KIRSCHMANPhone .................. : [phone] Age ................................ : 76Film# .................. .:[id number] Sex ................................. : FUnsigned transcriptions are preliminary reports and do not represent a medical or legal document CT THORAX W/O CONTRAST [id number] COMPLETE:04/12/21 13:42 [id number] Reason(s): NO CONTRAST: ? Abnormal CXR portablecompared to the prior CT from 2019. Abundant sclerosis around the fracture sitesaccount for the rounded opacities projected over the left lung on x-ray. No pulmonarymasses are identified. Electronically Reviewed and Signed ByMAGGIE OLMEDO JWSTranscribe Initials: GOLDEN, Transcribe Date: 04/12/21 14:50, Dictation Date:<<REPDIST>> Page 2 of 2 5 Clinical Report - Physicians/Mid Levels [facility] Emergency Department [address] [place] [address] Phone #: ext- [phone] 04/12/2021 11:39 Patient: [...] Male GFR Interprentation 20-49 yrs >60 mL/min Ryiyeg77-93 yrs >56 mL/min Normal 60-69 yrs >49 mL/min Normal 70-79yrs 6 Clinical Report - Physicians/Mid Levels [facility] Emergency Department [address] [place] [address] Phone #: ext- [phone] 04/12/2021 11:39 Patient: DONALD ARMANDO Sex: F : 1945 Age: 76y>42 mL/min Normal 80 and above >35 mL/min Normal Female GFRInterpretation 20-39 yrs >60 mL/min Normal 40-49 yrs >58 mL/minNormal 50-59 yrs >51 mL/min Normal 60-69 yrs >45 mL/min Uwchgd69-94 yrs >39 mL/min Normal 80 and above >32 mL/min NormalLipase: (AURA: 04/12/2021 12:34) ( AlgRcvd 04/12/2021 13:18) Final results Test Result Flag [...] VenousThrombosis, Pulmonary Embolus, Tissue heart valves, Acute [place] Atrial Fibrillation, Valvular heart diseaseand recurrent Systemic Embolism. - International Normalized Ratio (INR): 2.5 - 3.5 forMechanical Prosthetic valve.Troponin-T: (AURA: 04/12/2021 12:34) ( [facility] 04/12/2021 12:59) Final results Test Result Flag Units (Reference) TROPONIN T <0.01 NG/ML (0.00 - 0.10) TROPONIN T0.1 ng/ml Recommended as the clinical threshold value forTroponin T.Magnesium: (AURA: 04/12/2021 12:34) ( [facility] 04/12/2021 13:18) Final results Test Result Flag Units (Reference) MAGNESIUM 2.2 MG/DL (1.7 - 2.2)BNP: (AURA: 04/12/2021 12:34) ( [facility] 04/12/2021 13:22) Final results Test Result Flag Units (Reference) BNP 1469 H PG/ML (0 - 125)TSH: (AURA: 04/12/2021 12:34) ( [facility] 04/12/2021 13:22) Final results Test Result Flag Units (Reference) TSH 5.41 H uIU/mL (0.47 - 5.01)Urinalysis: (AURA: 04/12/2021 13:45) ( [facility] 04/12/2021 14:17) Final results Test Result Flag Units (Reference) URINALYSIS URINALYSIS SOURCE R COLOR yellow (NORMAL: Yello CLARITY clear (NORMAL: Clear SPEC GRAVITY 1.010 (1.001 - 1.030 pH 7 (5 - 9) GLUCOSE NORM (NORMAL: Negat BILIRUBIN NEG (NORMAL: Negat KETONE NEG (NORMAL: Negat PROTEIN 15 (NORMAL: Negat NITRITE NEG (NORMAL: Negat 7 Clinical Report - Physicians/Mid Levels [facility] Emergency Department [address] [place] [address] Phone #: ext- [phone] 04/12/2021 11:39 - [...] 04/12/2021 13:44) Final [place] [address] PHONE: [phone] FAX: [phone] Name .................. : TR Whitley Acct Number.................. : [id number] ROOM. ................. : TR05 Number ................... : [id number] Stay type ............. : E/R Discharge Date......... ... : Admit Date ......... : 04/12/21 Admit Phys .................... : COONEYNORM Date of ....... : 1945 Family Phys ................... : CASPER Phone .................. : [phone] Age ................................ : 76 Film# .................. .:[id number] Sex ................................. : F Unsigned transcriptions are preliminary reports and do not represent a medical or legal document CHEST PORTABLE [id number] COMPLETE:04/12/21 12:17 18799 Reason(s): cough, congestion, hx of COPD. ? PNU vs COPD flare vs CHF flare 8 Clinical Report - Physicians/Mid Levels [facility] Emergency Department [address] [place] [address] Phone #: ext- [phone] 04/12/2021 11:39 Patient: DONALD ARMANDO Sex: F [...] 04/12/21 13:39, Dictation Date: Page 1 of2 [facility] [address] [place] [address] PHONE: [phone] FAX: [phone] Name .................. : TR BENNETT Gutierrez Acct Number.................. : [id number] ROOM. ............... .. : TR05 Number ................... : [id number] Stay type ............. : E/R Discharge Date......... ... : Admit Date ......... : 04/12/21 Admit Phys .................... : COONEYNORM Date of ....... : 1945 [facility] ................[facility] Phone .................. : [phone] Age ................................ : 76 Film# .................. .:[id number] Sex ................................. : F Unsigned transcriptions are preliminary reports and do not represent a medical or legal document CHEST PORTABLE [id number] COMPLETE:04/12/21 12:17 79880 Reason(s): cough, congestion, hx of COPD. ? PNU vs COPD flare vs CHF flare Copy for: 010 EMERGENCY SRV Copy for: JE FREDERICK via fax Copy for: CASPER RACHEL via [employer] Copy for: EMERGENCY DEPT via [employer] 9 Clinical Report - Physicians/Mid Levels [facility] Emergency Department [address] [place] [address] Phone #: ext- [phone] 04/12/2021 11:39 Patient: DONALD ARMANDO Sex: F [...] return to evaluate. [facility] lab. Appears stable [id number] BUN: 40; today 52, increased Cerat: 2.3; [...] stable. 10 Clinical Report - Physicians/Mid Levels [facility] Emergency Department [address] [place] [address] Phone #: ext- [phone] 04/12/2021 11:39 Patient: DONALD ARMANDO Sex: F [...] restrictions. 11 Clinical Report - Physicians/Mid Levels [facility] Emergency Department [address] [place] [address] Phone #: ext- [phone] 04/12/2021 11:39 Patient: [...] Dispense 5 tablet. Refills: 0. Substitution permitted. [id number] - [address] [place], [place] [id number]. . azithromycin 250 mg tablet Take 2 tablet single dose for 1 days -- Take 2 tabs by mouth and day 1`and then 1 tab by mouth for days 2-5. Dispense 6 tablet. Refills: 0. Substitution permitted. [facility] #[id number] - [address] [place] [id number]. . Follow-up: Return to the emergency department as needed. Follow up with your healthcare provider in about two days if not better. Call for an appointment. Follow up with a certified maintenance welder and car hiker as scheduled. Understanding of the discharge instructions verbalized by patient.(Electronically signed by Luis Wooten P.A.-C 04/12/2021 23:23) Name Value Range Interpretation Code Description Data Ro rce(s) Supporting Document(s) ID Date Data Source [id number] 04/12/2021 10:26:00 [place] [address] RESPIRATORY CARE REPORT ==== ---------NAME------- NUMBER SEX AGE ADMIT DISC. XRAY# F/C TYPEPATRICIADEVI BENNETT Gutierrez [id number] F 76 04/12/21 04/12/21 [id number] E/R DATE OF : 1945 M/R# [id number] PH#: [phone] TR-05 LOCATION: EMERGENCY DEPT EKG [id number] COMP LETE:04/12/21 16:06 [facility] [address] PHYSICIAN: MIRIAN WOOTEN Name Value Range Interpretation Code Description Data Ro rce(s) Supporting Document(s) ID Date Data Source [id number] 04/12/2021 03:09:00 [place] [address] PHONE: [phone] FAX: [phone] Name .................. : PATRICIADEVI DONALD Gutierrez Acct Number.................. : [id number] ROOM. ................. : Number ................... : [id number] Stay type ............. : E/R Discharge Date......... ... : Admit Date ......... : 04/12/21 Admit Phys .................... : COONEYNORM Date of ....... : 1945 Family Phys ................... : [employer] Phone .................. : [phone] Age ................................ : 76 Film# .................. .:[id number] Sex ................................. : F Unsigned transcriptions are preliminary reports and do not represent a medical or legal document CT THORAX W/O CONTRAST [id number] COMPLETE:04/12/21 13:42 32479 Reason(s): NO CONTRAST: ? Abnormal CXR portable [...] These are new Page 1 of 2 [facility] [address] [place] [address] PHONE: [phone] FAX: [phone] Name .................. : TR Whitley Acct Number.................. : [id number] ROOM. ................. : [address] Number ................... : [id number] Stay type ............. : E/R Discharge Date......... ... : Admit Date ......... : 04/12/21 Admit Phys .................... : COONEYNORM Date of ....... : 1945 Family Phys ................... : [employer] Phone .................. : [phone] Age ................................ : 76 Film# .................. .:[id number] Sex ................................. : F Unsigned transcriptions are preliminary reports and do not represent a medical or legal document CT THORAX W/O CONTRAST [id number] COMPLETE:04/12/21 13:42 76857 Reason(s): NO CONTRAST: ? Abnormal CXR portable [...] rce(s) Supporting Document(s) ID Date Data Source [id number] 04/12/2021 01:44:00 PM EDT [facility] [address] [place] [address] PHONE: [phone] FAX: [phone] Name .................. : TR Whitley Acct Number.................. : [id number] ROOM. ................. : [address] Number ................... : [id number] Stay type ............. : E/R Discharge Date......... ... : Admit Date ......... : 04/12/21 Admit Phys .................... : [facility] Date of ....... : 1945 Family Phys ................... : CASPER Phone .................. : [phone] Age ................................ : 76 Film# .................. .:[id number] Sex ................................. : F Unsigned transcriptions are preliminary reports and do not represent a medical or legal document CHEST PORTABLE [id number] COMPLETE:04/12/21 12:17 78480 Reason(s): cough, congestion, hx of COPD. ? [...] 13:39, Dictation Date: Page 1 of 2 [facility] [address] [place] [address] PHONE: [phone] FAX: [phone] Name .................. : TR Whitley Acct Number.................. : [id number] ROOM. ................. : TR- MR Number ................... : [id number] Stay type ............. : E/R Discharge Date......... ... : Admit Date ......... : 04/12/21 Admit Phys .................... : COCHAPINCITO Date of ....... : 1945 Family Phys ................... : CASPER Phone .................. : [phone] Age ................................ : 76 Film# .................. .:[id number] Sex ................................. : F Unsigned transcriptions are preliminary reports and do not represent a medical or legal document CHEST PORTABLE [id number] COMPLETE:04/12/21 12:17 14102 Reason(s): cough, congestion, hx of COPD. ? PNU vs COPD flare vs CHF flare Copy for: 010 EMERGENCY SRV Copy for: JE FREDERICK via fax Copy for: CASPER RACHEL via modem Copy for: EMERGENCY DEPT via modem Copy for: 710 MED REC Page 2 of 2 Name Value Range Interpretation Code Description Data Ro rce(s) Supporting Document(s) ID Date Data Source [id number] 04/12/2021 01:45:00 PM EDT [facility] (Silver Peterson [...] finding (navigational concept) Laboratory test result [facility] (Sivler Peterson MD) SOURCE: Clean Catch Laboratory test [...] SOURCE: Clean Catch ID Date Data Source [id number] 04/12/2021 02:15:[address] [facility] Name Value Range Interpretation Code Description Data Ro rce(s) Supporting Document(s) [facility] COLOR yellow NORMAL: Yellow [facility] CLARITY clear NORMAL: Clear [facility] Specific gravity of Urine by Test strip 1.010 1.001 - 1.030 [facility] pH 7 5 - 9 [facility] Glucose [Mass/volume] in Urine by Test strip NORM NORMAL: Negat [facility] Bilirubin.total [Presence] in Urine by Test strip NEG NORMAL: Negative [facility] Ketones [Presence] in Urine by Test strip NEG NORMAL: Negative [facility] Protein [Mass/volume] in Urine by Test strip 15 NORMAL: Negat [facility] Nitrite [Presence] in Urine by Test strip NEG NORMAL: Negative [facility] BLOOD NEG NORMAL: Negative [facility] LEUK EST NEG NORMAL: Negative [facility] Urobilinogen [Mass/volume] in Urine by Test strip NOR less joyce n 1.0 mg/dL [facility] MICROSCOPIC See Below [facility] ital WBC 1 - 3 NORMAL: NONE SEEN [facility] EPITHELIAL FEW NORMAL: NONE SEEN [facility] Bacteria [Presence] in Urine sediment by Light microscopy Tr sonali NORMAL: NONE SEEN [facility] Amorphous sediment [Presence] in Urine sediment by Light melody roscopy RARE NORMAL: NONE SEEN [facility] Casts [#/area] in Urine sediment by Microscopy low power field See Be low [facility] Hyaline casts [#/area] in Urine sediment by Microscopy low p ower field 0-1 NORMAL: None Seen A [facility] Coarse Granular Casts [#/area] in Urine sediment by Mi croscopy low power field 0-1 NORMAL: None Seen A [facility] ID Date Data Source [id number] 04/12/2021 12:34:00 PM EDT [facility] (Silver Peterson [...] management</content>
<content>decisions.</content>
<content></content> ID Date Data Source [id number] 04/12/2021 12:34:00 PM EDT [facility] (Silver Peterson [...] (Silver Peterson MD) ID Date Data Source [id number] 04/12/2021 12:34:00 PM EDT [facility] (Silver Peterson [...] test finding (navigational concept) 22 mL/min [facility] (Sliver Peterson MD) Laboratory test finding (navigational concept) [...] >32 mL/min Normal ID Date Data Source [id number] 04/12/2021 12:34:00 PM EDT [facility] (Silver Peterson [...] (Silver Peterson MD) ID Date Data Source [id number] 04/12/2021 12:34:00 PM EDT [facility] (Silver Peterson [...] Thrombosis, Pulmonary Embolus, Tissue heart valves, Acute [place] Atrial Fibrillation, Valvular heart disease and recurrent Systemic Embolism. -International Normalized Ratio (INR): 2 .5 - 3.5 for Mechanical Prosthetic valve. Laboratory test finding (navigational concept) 1.03 0.93-1.23 [facility] (Silver Peterson MD) ID Date Data Source [id number] 04/12/2021 12:34:00 PM EDT [facility] (Silver Peterson [...] finding (navigational concept) 9.5 fL 7.4-10.4 [facility] (Silver Peterson MD) Laboratory test finding (navigational concept) 7.8 % 3.0-8.0 [facility] (Silver Peterson MD) Laboratory test finding (navigational concept) 3.5 % 0.0-7.0 [facility] (Silver Peterson MD) Laboratory test finding (navigational concept) 12.4 % 2 5.0-40.0 Below low normal [facility] (Silver Peterson MD) Laboratory test finding (navigational concept) 0.0 % 0.0-0.0 [facility] (Sliver Peterson MD) Laboratory test finding (navigational concept) [...] (Silver Peterson MD) ID Date Data Source [id number] 04/12/2021 12:34:00 PM EDT [facility] Name Value Range Interpretation Code Description Data Ro rce(s) Supporting Document(s) COVID19 Case rprt NOT DETECTED [facility] This lab was ordered by [facility] and reported by [facility]. ID Date Data Source [id number] 04/12/2021 01:23:[address] [facility] NOT DETECTEDNOT DETECTED{ PROC EDURAL CONTROL VALID [...] rce(s) Supporting Document(s) ID Date Data Source [id number] 04/12/2021 01:22:[address] [facility] Name Value Range Interpretation Code Description Data Ro rce(s) Supporting Document(s) Influenza virus A Ag [Presence] in Nasopharynx by Immunoassa y NEGATIVE NORMAL: NEGATIVE [facility] Influenza virus B Ag [Presence] in Nasopharynx by Immunoassa y NEGATIVE NORMAL: NEGATIVE [facility] NEGATIVENEGATIVE PROCEDURAL CO NTROL VALID KIT LOT [...] other patient managementdecisions. ID Date Data Source [id number] 04/12/2021 01:22:[address] [facility] Name Value Range Interpretation Code Description Data Ro rce(s) Supporting Document(s) Thyrotropin [Units/volume] in Serum or Plasma by Detec tion limit <= 0.05 mIU/L 5.41 uIU/mL 0.47 - 5.[address] [facility] ID Date Data Source [id number] 04/12/2021 01:22:[address] [facility] Name Value Range Interpretation Code Description Data Ro rce(s) Supporting Document(s) BNP 1469 PG/ML 0 - 125 [facility] ID Date Data Source [id number] 04/12/2021 01:22:[address] [facility] Name Value Range Interpretation Code Description Data Ro rce(s) Supporting Document(s) COMPREHENSIVE METABOLIC PANEL [facility] COMPREHENSIVE METABOLIC PANEL Sodium [Moles/volume] in Serum or Plasma 143 mEq/L 134 - 153 [facility] Potassium [Moles/volume] in Serum or Plasma 4.9 mEq/L 3.6 - 5.0 [facility] Chloride [Moles/volume] in Serum or Plasma 101 mEq/L 98 - 107 [facility] Carbon dioxide, total [Moles/volume] in Serum or Plasma 34 MEQ/L 22 - [address] [facility] Glucose [Mass/volume] in Serum or Plasma 88 MG/DL 70 - 99 [facility] BUN 52 MG/DL 7 - 21 [facility] Creatinine [Mass/volume] in Serum or Plasma 2.3 MG/DL 0.7 - 1.[address] [facility] BUN/CREAT 23 8 - 27 [facility] Protein [Mass/volume] in Serum or Plasma 6.3 G/DL 6.3 - 8.2 [facility] Albumin [Mass/volume] in Serum or Plasma 3.9 G/DL 3.9 - 5.0 [facility] Globulin [Mass/volume] in Serum by calculation 2.4 GM/DL 2.4 - 3.2 [facility] A/G RATIO 1.6 0.8 - 2.0 [facility] Calcium [Mass/volume] in Serum or Plasma 9.1 MG/DL 8.4 - 10.2 [facility] Bilirubin.total [Mass/volume] in Serum or Plasma <0.7 MG/DL 0.2 - 1.3 [facility] Alkaline phosphatase [Enzymatic activity/volume] in Serum or Plasma 81 U/L 38 - 126 [facility] Aspartate aminotransferase [Enzymatic activity/volume] in Serum or Plasma 11 U/L 5 - 40 [facility] Alanine aminotransferase [Enzymatic activity/volume] in Seru m or Plasma 7 U/L 7 - 56 [facility] Anion gap 3 in Serum or Plasma 8.0 mmol/L 8.0 - 16.0 [facility] AGE 76 yrs [facility] al NON-AA GFR 22 mL/min [facility] AFR AMER GFR >60 [facility] Male GFR In [...] >32 mL/min Normal ID Date Data Source [id number] 04/12/2021 01:18:[address] [facility] Name Value Range Interpretation Code Description Data Ro rce(s) Supporting Document(s) Magnesium [Mass/volume] in Serum or Plasma 2.2 MG/DL 1.7 - 2.2 [facility] ID Date Data Source [id number] 04/12/2021 01:18:[address] [facility] Name Value Range Interpretation Code Description Data Ro rce(s) Supporting Document(s) Lipase [Enzymatic activity/volume] in Serum or Plasma 26 U/L 13 - 60 [facility] ID Date Data Source [id number] 04/12/2021 12:59:[address] [facility] Name Value Range Interpretation Code Description Data Ro rce(s) Supporting Document(s) TROPONIN T <0.01 NG/ML 0.00 - 0.10 [facility] TROPONIN T0.1 ng/ml Recommended as the c linical threshold value forTroponin T. ID Date Data Source [id number] 04/12/2021 12:55:[address] [facility] Name Value Range Interpretation Code Description Data Ro rce(s) Supporting Document(s) Prothrombin time (PT) 13.6 SECONDS 11.0 - 15.5 [facility] INR in Platelet poor plasma by Coagulation assay 1.03 0.93 - 1. 23 [facility] aPTT in Blood by Coagulation assay 27.8 SECONDS 24.8 - 36.7 [facility] \\BLDo\\INR INTERPRETATION\\BLDx\\ Therapeutic range for Coumadin and related oral anticoagulants. - International Normalized Ratio (INR): 2.0 - 3.0 for Venous Thrombosis, Pulmonary Embolus, Tissue heart valves, Acute [place] Atrial Fibrillation, Valvular heart disease and recurrent Systemic Embolism. - International Normalized Ratio (INR): 2.5 - 3.5 for Mechanical Prosthetic valve. ID Date Data Source [id number] 04/12/2021 12:44:[address] [facility] Name Value Range Interpretation Code Description Data Ro rce(s) Supporting Document(s) CBC W/AUTOMATED DIFF [facility] COMPLETE BLOOD COUNT Leukocytes [#/volume] in Blood by Automated count 9.5 10^3/uL 4.2 - [address] [facility] Erythrocytes [#/volume] in Blood by Automated count 2.99 10^6/uL 4. 20 - 5.[address] [facility] Hemoglobin [Mass/volume] in Blood 9.7 g/dL 12.0 - 16.[address] [facility] Hematocrit [Volume Fraction] of Blood by Automated count 32.0 % 3 7.0 - 47.[address] [facility] Erythrocyte mean corpuscular volume [Entitic volume] b y Automated count 107.0 fL 81.0 - [address] [facility] Erythrocyte mean corpuscular hemoglobin [Entitic mass] by Automated count 32.4 pg 27.0 - 34.0 [facility] Erythrocyte mean corpuscular hemoglobin concentration [Mass/volume] by Automated count 30.3 g/dL 31.0 - 36.[address] [facility] Erythrocyte distribution width [Ratio] by Automated count 16.0 % 11.5 - 14.[address] [facility] Platelets [#/volume] in Blood by Automated count 194 10^3/uL 150 - [address] [facility] Platelet mean volume [Entitic volume] in Blood by Automated count 9.5 fL 7.4 - 10.4 [facility] Neutrophils/100 leukocytes in Blood by Automated count 73.5 % 37. 0 - 80.0 [facility] Lymphocytes/100 leukocytes in Blood by Manual count 12.4 % 25.0 - 40.[address] [facility] Monocytes/100 leukocytes in Blood by Automated count 7.8 % 3.0 - 8.0 [facility] Eosinophils/100 leukocytes in Blood by Automated count 3.5 % 0.0 - 7.0 [facility] Basophils/100 leukocytes in Blood by Automated count 0.5 % 0.0 - 2.5 [facility] %IG 2.3 % 0.0 - 0.0 [facility] %NRBC 0.0 % 0.0 - 0.0 [facility] al Neutrophils [#/volume] in Blood by Automated count 6.95 10^3/uL 2.00 - 6.[address] [facility] Lymphocytes [#/volume] in Blood by Automated count 1.17 10^3/uL 0.60 - 3.40 [facility] Monocytes [#/volume] in Blood by Automated count 0.74 10^3/uL 0.00 - 0.90 [facility] Eosinophils [#/volume] in Blood by Automated count 0.33 10^3/uL 0.00 - 0.70 [facility] Basophils [#/volume] in Blood by Automated count 0.05 10^3/uL 0.00 - 0.20 [facility] #IG 0.22 10^3/uL 0.00 - 0.10 H [facility] #NRBC 0.00 10^3/uL 0.00 - 0.00 [facility] MANUAL DIFF NOT INDICATED [facility] RBC MORPH NOT INDICATED [facility] spital ID Date Data Source [id number] 03/23/2021 01:22:00 PM EDT [facility] WO IV CONTRASTCLINICAL HISTORY: [...] rce(s) Supporting Document(s) ID Date Data Source [id number] 02/07/2021 01:53:00 PM EDT [facility] (Silver Peterson MD) Name Value Range Interpretation Code Description Data Ro rce(s) Supporting Document(s) Magnesium [Mass/volume] in Serum or Plasma 2.6 mg/dL 1.8-2.4 Above high normal [facility] (Silver Peterson MD) Natriuretic peptide.B prohormone N-Terminal [Mass/volu me] in Serum or Plasma 1098 pg/mL Above high normal [facility] (Silver Peterson MD) ID Date Data Source [id number] 02/07/2021 01:53:00 PM EDT [facility] (Silver Peterson [...] Normal (applies to non- numeric results) [facility] (iSlver Peterson MD) ID Date Data Source [id number] 02/07/2021 01:53:00 PM EDT [facility] (Silver Peterson [...] Little GFR Left</content>
<content>ESRD GFR <15 on MORTGAGE LOAN ASSISTANT</content>
<content></content> Laboratory test finding (navigational concept) 106 [...] (Silver Peterson MD) ID Date Data Source [id number] 02/07/2021 01:53:00 PM EDT [facility] (Silver Peterson [...] % 2.0-8.0 Above high normal [facility] (Silver ePterson MD) Laboratory test finding (navigational concept) 0.7 [...] (Silver Peterson MD) ID Date Data Source [id number] 12/20/2020 10:59:00 [place] [address] PHONE: [phone] FAX: [phone] Name .................. : MARGARETCINDY BENNETT Gutierrez Acct Number.................. : [id number] ROOM. ................. : Number ................... : [id number] Stay type ............. : O/P Discharge Date......... ... : 12/18/20 Admit Date ......... : 12/18/20 Admit Phys .................... : HAIDER SOMMRE Date of ....... : 1945 Family Phys ................... : CASPER Phone .................. : [phone] Age ................................ : 75 Film# .................. .:[id number] Sex ................................. : F Unsigned transcriptions are preliminary reports and do not represent a medical or legal document CT CERV SPINE W/O ARI 41838 COMPLETE:12/18/20 19:20 [facility] 8545 Reason for Exam: UNSTEADINESS ON FEET [...] imperative reconstructive techniques. Page 1 of 2 [place] [address] PHONE: [phone] FAX: [phone] Name .................. : TR Whitley Acct Number.................. : [id number] ROOM. ................. : MR Number ................... : [id number] Stay type ............. : O/P Discharge Date......... ... : 12/18/20 Admit Date ......... : 12/18/20 Admit Phys .................... : HAIDER SOMMER Date of ....... : 1945 Family Phys ................... : CASPER Phone .................. : [phone] Age ................................ : 75 Film# ... ............... .:[id number] Sex ................................. : F Unsigned transcriptions are preliminary reports and do not represent a medical or legal document CT CERV SPINE W/O CONTRAS [id number] COMPLETE:12/18/20 19:20 [facility] 8545 Reason for Exam: UNSTEADINESS ON FEET CT dose: 868.3 mGycm Electronically Reviewed and Signed By Viet Parra MD , 12/20/20 10:59, KGG Transcribe Initials: DZ , Transcribe Date: 12/19/20 05:34, Dictation Date: Copy for: HAIDER YUMIKO via fax Copy for: CASPER RACHEL via modem Copy for: [facility] MED REC Page 2 of 2 Name Value Range Interpretation Code Description Data Ro rce(s) Supporting Document(s) ID Date Data Source [id number] 12/19/2020 11:57:00 AM EDT [facility] [address] [place] [address] PHONE: [phone] FAX: [phone] Name .................. : TR Whitley Acct Number.................. : [id number] ROOM. ................. : MR Number ................... : [id number] Stay type ............. : O/P Discharge Date......... ... : 12/18/20 Admit Date ......... : 12/18/20 Admit Phys .................... : HAIDER SOMMER Date of ....... : 1945 Family Phys ................... : CASPER Phone .................. : [phone] Age ................................ : 75 Film# .................. .:[id number] Sex ................................. : F Unsigned transcriptions are preliminary reports and do not represent a medical or legal document CT HEAD W/O CONTRAST [id number] COMPLETE:12/18/20 19:20 [facility] 8544 Reason for Exam: TREMOR,SEIZURES, UNSTEADINESS ON [...] via fax Copy for: CASPER RACHEL via dothanm [address] [place] [address] PHONE: [phone] FAX: [phone] Name .................. : TR Whitley Acct Number.................. : [id number] ROOM. ................. : MR Number ................... : [id number] Stay type ............. : O/P Discharge Date......... ... : 12/18/20 Admit Date ......... : 12/18/20 Admit Phys .................... : HAIDER SOMMER Date of ....... : 1945 Family Phys ................... : CASPER Phone .................. : [phone] Age ................................ : 75 Film# .................. .:[id number] Sex ................................. : F Unsigned transcriptions are preliminary reports and do not represent a medical or legal document CT HEAD W/O CONTRAST [id number] COMPLETE:12/18/20 19:20 [facility] 8544 Reason for Exam: TREMOR,SEIZURES, UNSTEADINESS ON FEET Copy for: 710 MED REC Page 2 of 2 Name Value Range Interpretation Code Description Data Ro rce(s) Supporting Document(s) ID Date Data Source [id number] 11/30/2020 06:26:00 PM EDT [facility] (Silver Peterson MD) Name Value Range Interpretation Code Description Data Ro rce(s) Supporting Document(s) Lipoprotein lipase [Enzymatic activity/volume] in Serum or P lasma 104 U/L 73-393 Normal (applies to non-numeric results) [facility] ( Silver Peterson MD) ID Date Data Source [id number] 11/30/2020 06:26:00 PM EDT [facility] (Silver Peterson [...] (Silver Peterson MD) ID Date Data Source [id number] 11/30/2020 06:26:00 PM EDT [facility] (Silver Peterson [...] <content>Troponin I Reference Interval f or Siemens [place] LOCI:</content>
<content></content>
<content>99th Percentile= 0.00-0.045 ng/ml</content>
<content></content>
<content>Risk Stratification:</content>
<content><= 0.10 ng/ml Decreased Risk for Adverse Clinical</content>
<content>Events.</content>
<content>0.10-1.50 ng/ml Increased Risk for Adverse Clinical</content>
<content>Events. Evaluation of additional</content>
<content>criterion and/or repeat testing in 2-6</content>
<content>hours is suggested to rule out myocardial</content>
<content>damage.</content>
<content>>= 1.50 ng/ml Indicative of Myocardial Injury.</content>
<content></content> ID Date Data Source [id number] 11/30/2020 06:14:00 PM EDT [facility] Name Value Range Interpretation Code Description Data Ro rce(s) Supporting Document(s) SARS coronavirus 2 RNA [Presence] in Res piratory specimen by AMARA with probe detection NEGATIVE [facility] This lab was ordered by [facility] a nd reported by [facility]. ID Date Data Source [id number] 11/30/2020 05:20:00 PM EDT [facility] (Silver Peterson [...] (Silver Peterson MD) ID Date Data Source [id number] 11/30/2020 05:16:00 PM EDT [facility] (Silver Peterson MD) Name Value Range Interpretation Code Description Data Ro rce(s) Supporting Document(s) Natriuretic peptide.B prohormone N-Terminal [Mass/volu me] in Serum or Plasma 1279 pg/mL Above high normal [facility] (Silver Peterson MD) ID Date Data Source [id number] 11/30/2020 05:16:00 PM EDT [facility] (Silver Peterson [...] % 0.0-3.0 Above high normal [facility] (Silver Petersno MD) Laboratory test finding (navigational concept) 0.4 [...] (Silver Peterson MD) ID Date Data Source [id number] 11/28/2020 12:41:00 PM EDT [facility] [address] [place] [address] PHONE: [phone] FAX: [phone] Name .................. : PATRICIADEVI BENNETT Gutierrez Acct Number.................. : [id number] ROOM. ................. : TR-08 Number ................... : [id number] Stay type ............. : E/R Discharge Date......... ... : 11/27/20 Admit Date ......... : 11/27/20 Admit Phys .................... : BERE ULRICH Date of ....... : 1945 Family Phys ................... : [employer] Phone .................. : [phone] Age ................................ : 75 Film# .................. .:[id number] Sex ................................. : F Unsigned transcriptions are preliminary reports and do not represent a medical or legal document SPINE THORACIC 11646 COMPLETE:11/27/20 16:48 K[facility] 6800 Reason(s): Fall THORACIC [...] EDOUARD LOYA via fax Copy for: CASPER RACEHL via modem Copy for: [facility] via modem Copy for: 710 MED REC DISCHARGED Page 1 of 1 Name Value Range Interpretation Code Description Data Ro rce(s) Supporting Document(s) ID Date Data Source [id number] 11/28/2020 12:41:00 [place] [address] PHONE: [phone] FAX: [phone] Name .................. : PATRICIADEVI BENNETT Gutierrez Acct Number.................. : [id number] ROOM. ................. : TR-08 Number ................... : [id number] Stay type ............. : E/R Discharge Date......... ... : 11/27/20 Admit Date ......... : 11/27/20 Admit Phys .................... : BERE ULRICH Date of ....... : 1945 Family Phys ................... : CASPER Phone .................. : [phone] Age ................................ : 75 Film# .................. .:[id number] Sex ................................. : F Unsigned transcriptions are preliminary reports and do not represent a medical or legal document CHEST 2 VIEWS 42365 COMPLETE:11/27/20 16:48 [facility] 6799 Reason(s): Chest Pain [...] rce(s) Supporting Document(s) ID Date Data Source [id number] 11/28/2020 12:41:00 PM EDT [facility] [address] [place] [address] PHONE: [phone] FAX: [phone] Name .................. : TR Whitley Acct Number.................. : [id number] ROOM. ................. : [facility] Number ................... : [id number] Stay type ............. : E/R Discharge Date......... ... : 11/27/20 Admit Date ......... : 11/27/20 Admit Phys .................... : BERE ULRICH Date of ....... : 1945 Family Phys ................... : [employer] Phone .................. : [phone] Age ................................ : 75 Film# .................. .:[id number] Sex ................................. : F Unsigned transcriptions are preliminary reports and do not represent a medical or legal document HIP UNILAT W PELV 2 TO 3V LT [id number] COMPLETE:11/27/20 16:48 KBO 6798 Reason(s): Hip Injury [...] rce(s) Supporting Document(s) ID Date Data Source [id number] 11/27/2020 03:26:[address] [facility] [address] [facility] Emergency Department [address] [place] [address] Phone #: ext- [phone] 11/27/2020 15:12 Patient: DONALD ARMANDO Sex: F : 1945 Age: 75yWEIGHT:73.4 kg (S) HEIGHT:63 inches (S) BMI:28.7ALLERGIES: Codeine, DilantinCHIEF COMPLAINT: slipped, fall, attempting to get upDIAGNOSIS: Fall, Contusion, PneumoniaLAB ORDERSOrder Description Priority Entered Acknowledged InitialedUrinalysis (Clean STAT 16:42 11/27/2020 16:53 BurnhamCatch) Ravindra [facility] TechDamaso PA; [id number] STUDY ORDERSOrder Description Priority Entered Acknowledged InitialedHip Left with Pelvis STAT 16:07 11/27/2020 16:13 Burnham2-3 Views [facility]ind[facility]; Tech1 Reason for Study: Hip Injury, Hip PainChest 2 View STAT 16:07 11/27/2020 16:13 Chari(Oxygen?(No)) Ravindra [facility] HospitalDam[facility] PA; Tech1 NOTES: Fall left rib pain Reason for Study: Chest PainSpine Thoracic AP STAT 16:07 11/27/2020 16:13 BurnhamAnd Lat Ravindra Kimble burlap bag sewer, Damaso ER(Oxygen?(No)) PA; Tech1 Reason for Study: Fall, Mid Back PainMEDICATION/IV/DRIP/FLUID ORDERSOrder Description Priority Entered Acknowledged InitialedTylenol PO 1000 16:07 11/27/2020 16:55 Graham Whalen RN PA;Vicodin (5-325mg) 17:17 11/27/2020 17:32 PeterPO 1 tab ( HIGH Ravindra Whalen RNALERT PA;MEDICATION)GENERAL ORDERS [address] [facility] Emergency Department [address] [place] [address] Phone #: ext- [phone] 11/27/2020 15:12 Patient: DONALD ARMANDO Sex: F : 1945 Age: 75yOrder Description Priority Entered Acknowledged InitialedSpirometry - 17:24 11/27/2020 Cancelled: Physician Order 17:33 RavindraIncentive (RT Req.) Ravindra SILVA PA;[Electronically signed by Osmar Wahlen RN (17:44 11/27/2020)][Electronically signed by Ravindra Kimble (21:39 11/27/2020)][Electronically locked by Osmar Whalen RN (17:44 11/27/2020)] Name Value Range Interpretation Code Description Data Ro rce(s) Supporting Document(s) ID Date Data Source [id number] 11/27/2020 03:26:[address] [facility] [address] [facility] Emergency Department [address] [place] [address] Phone #: ext- [phone] 11/27/2020 15:12 Patient: [...] Oral 50mcg, daily [address] [facility] Emergency Department [address] [place] [address] Phone #: ext- [phone] 11/27/2020 15:12 Patient: [...] Pharmacy - [facility]: $217.82. Adjudicatewith: BIN:[id number] PCN:TEEPO Group:EMR ID:[id number]. Phone:[phone].Pharmacy - [facility] [address] [place] [address]. .azithromycin 250 mg tablet -- Take 2 tablets on the first day then one tablet daily for 4 days, totalduration is 5 days. Dispense 6 tablet. Refills: 0. Substitution permitted.Pharmacy - [facility] [address] [place] [address]. .gabapentin 100 mg capsule Take 1 capsule three times a day for 30 days -- Dispense 90 capsule.Refills: 0. Substitution permitted. Note to Pharmacy - [facility]: $19.99. Adjudicate with:BIN:[id number] PCN:BIJAN Group:EMR ID:[id number]. Phone:[phone].Pharmacy - [facility] [address] [place] [address]. . -- SHIRA Medina Name Value Range Interpretation Code Description Data Ro rce(s) Supporting Document(s) ID Date Data Source [id number] 11/27/2020 03:26:[address] [facility] [address] [facility] Emergency Department [address] [place] [address] Phone #: [phone] ext- [phone] 11/27/2020 15:12 Patient: DONALD ARMANDO Sex: F [...] rce(s) Supporting Document(s) ID Date Data Source [id number] 11/27/2020 03:26:[address] [facility] [address] [facility] Emergency Department [address] [place] [address] Phone #: ext- [phone] 11/27/2020 15:12 Patient: [...] - [facility]: $217.82. Adjudicate with: BIN:[id number] N:TEE Group:EMR ID:[id number]. Phone:[phone]. Pharmacy - [facility] #[id number] [id number]. . azithromycin 250 mg tablet -- Take 2 tablets on the first day then one tablet daily for 4 days, total [address] [facility] Emergency Department [address] [place] [address] Phone #: ext- [phone] 11/27/2020 15:12 Patient: DONALD ARMANDO Sex: F : 1945 Age: 75y duration is 5 days. Dispense 6 tablet. Refills: 0. Substitution permitted. Pharmacy - [facility] #[id number] [id number]. . gabapentin 100 mg capsule Take 1 capsule three times a day for 30 days -- Dispense 90 capsule. Refills: 0. Substitution permitted. Note to Pharmacy - [facility]: $19.99. Adjudicate with: BIN:[id number] PCN:BIJAN Group:EMR ID:[id number]. Phone:[phone]. Pharmacy - [facility] #[id number] - [address] [place], [place] [id number]. . Follow-up: Follow up with your doctor [...] muscles without stretching them. [address] [facility] Emergency Department [address] [place] [address] Phone #: ext- [phone] 11/27/2020 15:12 --------- Patient: DONALD ARMANDO [facility] [id number] Sex: F : 1945 Age: 75y You [...] you don't trip over [address] [facility] Emergency Department [address] [place] [address] Phone #: ext- [phone] 11/27/2020 15:12 Patient: DONALD ARMANDO [facility]#: [id number] Sex: F : 1945 Age: 75y them. [...] the reading, especially if it affects treatment.Call [phone] if any of these happen: Trouble breathing [...] in vomit, stools (black or red color) [phone] Sleep Number. [address] [place] [address]. All rights reserved. This information is not intended as asubstitute for professional medical care. Always follow your healthcare professional's instructions.Chest Bruise (Contusion) [address] [facility] Emergency Department [address] [place], [place] [address] Phone #: ext- [phone] 11/27/2020 15:12 Patient: [...] damp with warm water. [address] [facility] Emergency Department [address] [place] [address] Phone #: ext- [phone] 11/27/2020 15:12 Patient: DONALD ARMANDO Sex: F : 1945 Age: 75y Hold a pillow to the affected area when you cough. This will help ease pain. You may use akal-tpq-cqcjebm pain medicine such as acetaminophen or ibuprofen [...] suddenly or lasts more than an hour [phone] Sleep Number. [address] [place] [address]. All rights reserved. This information is not [...] ulcer or digestive bleeding. [address] [facility] Emergency Department [address] [place] [address] Phone #: ext- [phone] 11/27/2020 15:12 Patient: DONALD ARMANDO Sex: F [...] individual fingers. Frequent bruising for unknown reasons [phone] [employer]. [address] [place] [address]. All rights reserved. This information is not [...] ulcer or digestive bleeding. [address] [facility] Emergency Department [address] [place] [address] Phone #: ext- [phone] 11/27/2020 15:12 Patient: DONALD ARMANDO Sex: F [...] injured area Frequent bruising for unknown reasons [phone] [employer]. [address] [place] [address], [place] [address]. All rights reserved. This information is not [...] first week of treatment. [address] [facility] Emergency Department [address] [place] [address] Phone #: ext- [phone] 11/27/2020 15:12 Patient: [...] smoke in your home. [address] [facility] Emergency Department [address] [place] [address] Phone #: ext- [phone] 11/27/2020 15:12 Patient: DONALD ARMANDO Sex: F : 1945 Age: 75y Prevent lung infections. Ask your healthcare provider about the flu and pneumonia vaccines. Take steps to prevent colds and other lung infections. Practice correct handwashing. Wash your hands often with soap and water. Use hand silk screener when you can't wash your hands. Stay [...] about whichpneumococcal vaccine is best for you.Call [phone] any of these occur: [address] [facility] Emergency Department [address] [place] [address] Phone #: ext- [phone] 11/27/2020 15:12 Patient: [...] or as directed by your healthcare provi walt Shaking chills Cough with phlegm that doesn't get better, or get worse Shortness of breath with activities Weakness, dizziness, or fainting that gets worse Thirst or dry mouth that gets worse Sinus pain, headache, or a stiff neck Chest pain with breathing or coughing Symptoms that get worse or not improving [phone] [employer] [address] [place] [address]. All rights reserved. This information is not intendedas a substitute for professional medical care. Always follow your healthcare professional's instructions. You have been given the following additional information: Mechanical Fall Chest Wall Contusion [address] [facility] Emergency Department [address] [place] [address] Phone #: ext [phone] 11/27/2020 15:12 Patient: DONALD ARMANDO Sex: F : 1945 Age: 75y Contusion, Upper Extremity Contusion, Lower Extremity Pneumonia (Adult)(Electronically signed by SHIRA Medina 11/27/2020 21:39) Name Value Range Interpretation Code Description Data Ro rce(s) Supporting Document(s) ID Date Data Source [id number] 11/27/2020 03:26:[address] [facility] 1 Clinical Report - Nurses [facility] Emergency Department [address] [place] [address] Phone #: ext- [phone] 11/27/2020 15:12 Patient: DONALD ARMANDO Sex: F [...] axillary area, and bruised her right knee).Treatment PROGRAM TECHNICIAN:None.SEPSIS SCREEN: SIRS SCREEN NEGATIVE. SEPSIS SCREEN NEGATIVE. [...] at bedtime. 2 Clinical Report - Nurses [facility] Emergency Department [address] [place] [address] Phone #: ext- [phone] 11/27/2020 15:12 Patient: DONALD ARMANDO [facility]#: [id number] Sex: F : 1945 Age: 75y Ventolin [...] palpation to 3 Clinical Report - Nurses [facility] Emergency Department [address] [place] [address] Phone #: ext- [phone] 11/27/2020 15:12 Patient: DONALD ARMANDO Sex: F [...] monitor and NIBP monitor placed on patient; engine emission technician- Lead II; monitor alarms on.Extremity elevated. Patient gowned. Reassurance given. Call light placed in reach. Side rails up x 2.Bed placed in lowest position. Brakes of bed on. Patient ready for evaluation- ED physician notified.--15:35 11/27/20 Osmar Whalen RN Patient transported to CT by stretcher with mask and radiology teacher. --16:15 11/27/20 [facility] burlap bag sewer, Damaso, ER Tech1 Correction --16:15 11/27/20 [facility] burlap bag sewer, Damaso, ER Tech1 Patient transported to radiology by stretcher with radiology teacher. --16:16 11/27/20 [facility] Tech, Damaso, ER Tech1 Patient ID band checked for patient name and birthdate: patient confirmed. Instructions provided to collect clean catch urine and patient verbalized understanding. Clean catch urine collected with return of yellow-colored clear urine; sample sent to lab for urinalysis and culture. Specimen labeled in the presence of the patient. --16:55 11/27/20 [facility] Tech, Damaso, ER Tech1 16:55 11/27/2020 Tylenol [...] Patient verbalized understanding. Written instructions provided in Mosotho. The patient was discharged by the physician general office assistant. She was discharged home and accompanied by family. She left in a wheelchair and via private vehicle. Family member driving. --17:44 11/27/20 Osmar Whalen RN 17:43 11/27/20. BP: 118/65. MAP: 82. HR: 71. RR: 18. O2 saturation: 96%. Pain level now: 02/15. 4 Clinical Report - Nurses [facility] Emergency Department [address] [place] [address] Phone #: ext- [phone] 11/27/2020 15:12 Patient: DONALD ARMANDO Sex: F : 1945 Age: 75y --17:44 11/27/20 Osmar Whalen RN.Locked/Released at 11/27/2020 17:44 by Osmar Wahlen RN Name Value Range Interpretation Code Description Data Ro rce(s) Supporting Document(s) ID Date Data Source [id number] 11/27/2020 03:26:[address] [facility] 1 Clinical Report - Physicians/Mid Levels [facility] Emergency Department [address] [place] [address] Phone #: ext- [phone] 11/27/2020 15:12 Patient: DONALD ARMANDO Sex: F [...] bedtime. 2 Clinical Report - Physicians/Mid Levels [facility] Emergency Department [address] [place] [address] Phone #: ext- [phone] 11/27/2020 15:12 Patient: DONALD ARMANDO Sex: F [...] for 3 Clinical Report - Physicians/Mid Levels [facility] Emergency Department [address] [place] [address] Phone #: ext- [phone] 11/27/2020 15:12 Patient: [...] - [facility]: $217.82. Adjudicate with: BIN:[id number] SHAISTAN:BIJAN Group:EMR ID:[id number]. Phone:[phone]. [facility] [address] [place] [address]. . 4 Clinical Report - Physicians/Mid Levels [facility] Emergency Department [address] [place] [address] Phone #: ext- [phone] 11/27/2020 15:12 Patient: DONALD ARMANDO Sex: F : 1945 Age: 75y azithromycin 250 mg tablet -- Take 2 tablets on the first day then one tablet daily for 4 days, total duration is 5 days. Dispense 6 tablet. Refills: 0. Substitution permitted. [facility] [address] [place] [address]. . gabapentin 100 mg capsule Take 1 capsule three times a day for 30 days -- Dispense 90 capsule. Refills: 0. Substitution permitted. Note to Pharmacy - [facility]ount[facility]: $19.99. Adjudicate with: BIN:[id number] SHAISTAN:BIJAN Group:EMR ID:[id number]. Phone:[phone]. [facility] - [facility] #[id number] [place] [address]. FaxNumber: [phone]. Follow-up: Follow up with your doctor in three days if not better. Reason for referral: evaluation and treatment. Summary of care provided to patient. Understanding of the discharge instructions verbalized by patient.(Electronically signed by SHIRA Medina 11/27/2020 21:39) Name Value Range Interpretation Code Description Data Ro rce(s) Supporting Document(s) ID Date Data Source [id number] 11/27/2020 04:45:00 PM EDT [facility] (Silver Peterson MD) Name Value Range Interpretation Code Description Data Or rce(s) Supporting Document(s) Laboratory test finding (navigational [...] SOURCE: Clean Catch ID Date Data Source [id number] 11/27/2020 05:14:[address] [facility] Name Value Range Interpretation Code Description Data Ro rce(s) Supporting Document(s) URINALYSIS [facility] URINALYSIS SOURCE R [facility] COLOR yellow NORMAL: Yellow [facility] CLARITY clear NORMAL: Clear [facility] Specific gravity of Urine by Test strip 1.020 1.001 - 1.030 [facility] pH 5 5 - 9 [facility] Glucose [Mass/volume] in Urine by Test strip NORM [facility]: [facility] Bilirubin.total [Presence] in Urine by Test strip NEG NORMAL: Negative [facility] Ketones [Presence] in Urine by Test strip NEG NORMAL: Negative [facility] Protein [Mass/volume] in Urine by Test strip NEG NORMAL: Negat [facility] Nitrite [Presence] in Urine by Test strip NEG NORMAL: Negative [facility] BLOOD NEG NORMAL: Negative [facility] Leukocyte esterase [Presence] in Urine by Test strip NEG FARRUKH L: Negative [facility] Urobilinogen [Mass/volume] in Urine by Test strip NOR less joyce n 1.0 mg/dL [facility] MICROSCOPIC Not Indicate [facility] ID Date Data Source [id number] 09/13/2020 01:40:00 PM EST [facility] [address] [place] [address] PHONE: [phone] FAX: [phone] Name .................. : TR Whitley Acct Number.................. : [id number] ROOM. ................. : MR Number ................... : [id number] Stay type ............. : O/P Discharge Date......... ... : 09/12/20 Admit Date ......... : 09/12/20 Admit Phys .................... : REY PAUL Date of ....... : 1945 Family Phys ................... : CASPER Phone .................. : [phone] Age ................................ : 75 Film# .................. .:[id number] Sex ................................. : F Unsigned transcriptions are preliminary reports and do not represent a medical or legal [place] [id number] COMPLETE:09/12/20 15:25 KBO 1498 (REASON FOR PROCESS: [...] CASPER RACHEL via modem Copy for: [facility] REC Page 1 of 1 Name Value Range Interpretation Code Description Data Ro rce(s) Supporting Document(s) ID Date Data Source [id number] 09/13/2020 01:40:00 PM EST [facility] [address] [address] PHONE: [phone] FAX: [phone] Name .................. : TR Whitley Acct Number.................. : [id number] ROOM. ................. : MR Number ................... : [id number] Stay type ............. : O/P Discharge Date......... ... : 09/12/20 Admit Date ......... : 09/12/20 Admit Phys .................... : REY BEVERLY Date of ....... : 1945 [facility] ................[facility] Phone .................. : [phone] Age ................................ : 75 Film# .................. .:[id number] Sex ................................. : F Unsigned transcriptions are preliminary reports and do not represent a medical or legal document SPINE LS COMPLETE [id number] COMPLETE:09/12/20 15:25 KBO 1497 (SPINE PROC REASON: [...] rce(s) Supporting Document(s) ID Date Data Source [id number] 09/12/2020 01:25:00 PM EST [facility] (Silver Peterson [...] Laboratory test result [facility] (Silver Pteerson MD) Male GFR Interprentation 20-49 yrs >60 [...] >32 mL/min Normal ID Date Data Source [id number] 09/12/2020 01:25:00 PM EST [facility] (Silver Peterson [...] finding (navigational concept) 30.9 pg 27.0-34.0 [facility] (Silevr Peterson MD) Laboratory test finding [...] esult Abnormal (applies to non-numeric results) [facility] (Sivler Peterson MD ) Laboratory test finding (navigational concept) Laboratory test r esult Abnormal (applies to non-numeric results) [facility] (Silver Peterson MD ) { SICKLE CELL (NORMAL: NONE SEEN ) Laboratory test finding (navigational concept) Laboratory test result [facility] (Silver Peterson MD) COMMENT: ID Date Data Source [id number] 09/12/2020 02:48:00 PM [facility] Name Value Range Interpretation Code Description Data Ro rce(s) Supporting Document(s) COMPREHENSIVE METABOLIC PANEL [facility] COMPREHENSIVE METABOLIC PANEL Sodium [Moles/volume] in Serum or Plasma 144 mEq/L 134 - 153 [facility] Potassium [Moles/volume] in Serum or Plasma 5.2 mEq/L 3.6 - 5.[address] [facility] Chloride [Moles/volume] in Serum or Plasma 101 mEq/L 98 - 107 [facility] Carbon dioxide, total [Moles/volume] in Serum or Plasma 33 MEQ/L 22 - [address] [facility] Glucose [Mass/volume] in Serum or Plasma 62 MG/DL 65 - [address] [facility] BUN 62 MG/DL 7 - 21 H [facility] Creatinine [Mass/volume] in Serum or Plasma 3.0 MG/DL 0.7 - 1.[address] [facility] BUN/CREAT 21 8 - 27 [facility] Protein [Mass/volume] in Serum or Plasma 6.7 G/DL 6.3 - 8.2 [facility] Albumin [Mass/volume] in Serum or Plasma 4.0 G/DL 3.9 - 5.0 [facility] Globulin [Mass/volume] in Serum by calculation 2.7 GM/DL 2.4 - 3.2 [facility] A/G RATIO 1.5 0.8 - 2.0 [facility] Calcium [Mass/volume] in Serum or Plasma 9.5 MG/DL 8.4 - 10.2 [facility] Bilirubin.total [Mass/volume] in Serum or Plasma <0.7 MG/DL 0.2 - 1.3 [facility] Alkaline phosphatase [Enzymatic activity/volume] in Serum or Plasma 76 U/L 38 - 126 [facility] Aspartate aminotransferase [Enzymatic activity/volume] in Serum or Plasma 10 U/L 5 - 40 [facility] Alanine aminotransferase [Enzymatic activity/volume] in Seru m or Plasma 8 U/L 7 - 56 [facility] Anion gap 3 in Serum or Plasma 10.0 mmol/L 8.0 - 16.0 [facility] 75 [facility] A[facility] AMER GFR >60 [facility] Male GFR In [...] >32 mL/min Normal ID Date Data Source [id number] 09/12/2020 02:08:[address] [facility] Name Value Range Interpretation Code Description Data Ro rce(s) Supporting Document(s) CBC W/AUTOMATED DIFF [facility] COMPLETE BLOOD COUNT Leukocytes [#/volume] in Blood by Automated count 9.1 10^3/uL 4.2 - [address] [facility] Erythrocytes [#/volume] in Blood by Automated count 3.20 10^6/uL 4. 20 - 5.[address] [facility] Hemoglobin [Mass/volume] in Blood 9.9 g/dL 12.0 - 16.[address] [facility] Hematocrit [Volume Fraction] of Blood by Automated count 32.5 % 3 7.0 - 47.[address] [facility] Erythrocyte mean corpuscular volume [Entitic volume] b y Automated count 101.6 fL 81.0 - [address] [facility] Erythrocyte mean corpuscular hemoglobin [Entitic mass] by Automated count 30.9 pg 27.0 - 34.0 [facility] Erythrocyte mean corpuscular hemoglobin concentration [Mass/volume] by Automated count 30.5 g/dL 31.0 - 36.[address] [facility] Erythrocyte distribution width [Ratio] by Automated count 17.1 % 11.5 - 14.[address] [facility] Platelets [#/volume] in Blood by Automated count 272 10^3/uL 150 - [address] [facility] Platelet mean volume [Entitic volume] in Blood by Automated count 10.4 fL 7.4 - 10.4 [facility] Neutrophils/100 leukocytes in Blood by Automated count 65.8 % 37. 0 - 80.0 [facility] Lymphocytes/100 leukocytes in Blood by Manual count 17.2 % 25.0 - 40.[address] [facility] Monocytes/100 leukocytes in Blood by Automated count 12.2 % 3.0 - 8.0 H [facility] Eosinophils/100 leukocytes in Blood by Automated count 3.2 % 0.0 - 7.0 [facility] 0.5 %IG 1.1 % 0.0 - 0.0 H [facility] %NRBC 0.0 % 0.0 - 0.0 [facility] Neutrophils [#/volume] in Blood by Automated count 5.99 10^3/uL 2.00 - 6.90 [facility] Lymphocytes [#/volume] in Blood by Automated count 1.57 10^3/uL 0.60 - 3.40 [facility] Monocytes [#/volume] in Blood by Automated count 1.11 10^3/uL 0.00 - 0.[address] [facility] Eosinophils [#/volume] in Blood by Automated count 0.29 10^3/uL 0.00 - 0.70 [facility] Basophils [#/volume] in Blood by Automated count 0.05 10^3/uL 0.00 - 0.20 [facility] #IG 0.10 10^3/uL 0.00 - 0.10 [facility] #NRBC 0.00 10^3/uL 0.00 - 0.00 [facility] MANUAL DIFF SEE BELOW [facility] ital Segmented neutrophils/100 leukocytes in Blood by Manual count 71 % 37 - 80 [facility] BAND 1 % 0 - 5 [facility] %LYMPH 11 % 25 - 40 [facility] %MONO 14 % 3 - 8 [facility] %EOS 1 % 0 - 7 [facility] 2 RBC MORPH SEE BELOW [facility] Anisocytosis [Presence] in Blood by Light microscopy 1+ FARRUKH L: NONE SEEN A [facility] Macrocytes [Presence] in Blood by Light microscopy 1+ NORMAL: NONE SEEN A [facility] Poikilocytosis [Presence] in Blood by Light microscopy 1+ NOR MAL: NONE SEEN A [facility] { SICKLE CELL (NORMAL: NONE SEEN ) Ovalocytes [Presence] in Blood by Light microscopy 1+ NORMAL: NONE SEEN A [facility] Platelet adequacy [Presence] in Blood by Light microscopy NORMAL NORMAL: NORMAL [facility] COMMENT: ID Date Data Source [id number] 08/09/2020 02:36:00 PM EST [facility] (Silver Peterson [...] 3 1.0-36.0 Below low normal [facility] (Silver ePterson MD) Laboratory test finding (navigational concept) 17.2 [...] COMMENT: _0 08/09/20.1609.TAD. ID Date Data Source [id number] 08/09/2020 02:36:00 PM EST [facility] (Silver Peterson [...] >32 mL/min Normal ID Date Data Source [id number] 08/09/2020 02:36:00 PM EST [facility] (Silver Peterson [...] (Silver Peterson MD) ID Date Data Source [id number] 08/09/2020 04:09:[address] [facility] Name Value Range Interpretation Code Description Data Ro rce(s) Supporting Document(s) CBC W/AUTOMATED DIFF [facility] COMPLETE BLOOD COUNT Leukocytes [#/volume] in Blood by Automated count 11.4 10^3/uL 4.2 - 11.[address] [facility] Erythrocytes [#/volume] in Blood by Automated count 3.80 10^6/uL 4. 20 - 5.[address] [facility] Hemoglobin [Mass/volume] in Blood 11.5 g/dL 12.0 - 16.[address] [facility] Hematocrit [Volume Fraction] of Blood by Automated count 37.9 % 3 7.0 - 47.0 [facility] Erythrocyte mean corpuscular volume [Entitic volume] by Auto mated count 99.7 fL 81.0 - 101 [facility] Erythrocyte mean corpuscular hemoglobin [Entitic mass] by Automated count 30.3 pg 27.0 - 34.0 [facility] Erythrocyte mean corpuscular hemoglobin concentration [Mass/volume] by Automated count 30.3 g/dL 31.0 - 36.[address] [facility] Erythrocyte distribution width [Ratio] by Automated count 17.2 % 11.5 - 14.[address] [facility] Platelets [#/volume] in Blood by Automated count 287 10^3/uL 150 - [address] [facility] Platelet mean volume [Entitic volume] in Blood by Automated count 10.5 fL 7.4 - 10.[address] [facility] Neutrophils/100 leukocytes in Blood by Automated count 70.6 % 37. 0 - 80.0 [facility] Lymphocytes/100 leukocytes in Blood by Manual count 14.1 % 25.0 - 40.[address] [facility] Monocytes/100 leukocytes in Blood by Automated count 9.8 % 3.0 - 8.[address] [facility] Eosinophils/100 leukocytes in Blood by Automated count 1.5 % 0.0 - 7.0 [facility] Basophils/100 leukocytes in Blood by Automated count 0.7 % 0.0 - 2.5 [facility] %IG 3.3 % 0.0 - 0.0 H [facility] %NRBC 0.0 % 0.0 - 0.0 [facility] Neutrophils [#/volume] in Blood by Automated count 8.04 10^3/uL 2.00 - 6.[address] [facility] Lymphocytes [#/volume] in Blood by Automated count 1.60 10^3/uL 0.60 - 3.40 [facility] Monocytes [#/volume] in Blood by Automated count 1.11 10^3/uL 0.00 - 0.[address] [facility] Eosinophils [#/volume] in Blood by Automated count 0.17 10^3/uL 0.00 - 0.70 [facility] Basophils [#/volume] in Blood by Automated count 0.08 10^3/uL 0.00 - 0.20 [facility] #IG 0.37 10^3/uL 0.00 - 0.10 H [facility] #NRBC 0.00 10^3/uL 0.00 - 0.00 [facility] ospital MANUAL DIFF SEE BELOW [facility] ital Segmented neutrophils/100 leukocytes in Blood by Manual count 78 % 37 - 80 [facility] %LYMPH 16 % 25 - 40 L [facility] %MONO 4 % 3 - 8 [facility] %EOS 2 % 0 - 7 [facility] RBC MORPH SEE BELOW [facility] Anisocytosis [Presence] in Blood by Light microscopy 1+ FARRUKH L: NONE SEEN A [facility] { SICKLE CELL (NORMAL: NONE SEEN ) Platelet adequacy [Presence] in Blood by Light microscopy NORMAL NORMAL: NORMAL [facility] COMMENT: _0 08/09/20.1609.TAD. ID Date Data Source [id number] 08/09/2020 04:02:[address] [facility] Name Value Range Interpretation Code Description Data Ro rce(s) Supporting Document(s) COMPREHENSIVE METABOLIC PANEL [facility] COMPREHENSIVE METABOLIC PANEL Sodium [Moles/volume] in Serum or Plasma 142 mEq/L 134 - 153 [facility] Potassium [Moles/volume] in Serum or Plasma 5.1 mEq/L 3.6 - 5.[address] [facility] Chloride [Moles/volume] in Serum or Plasma 101 mEq/L 98 - 107 [facility] Carbon dioxide, total [Moles/volume] in Serum or Plasma 32 MEQ/L 22 - [address] [facility] Glucose [Mass/volume] in Serum or Plasma 126 MG/DL 65 - [address] [facility] BUN 57 MG/DL 7 - 21 H [facility] Creatinine [Mass/volume] in Serum or Plasma 2.4 MG/DL 0.7 - 1.[address] [facility] BUN/CREAT 24 8 - 27 [facility] Protein [Mass/volume] in Serum or Plasma 6.7 G/DL 6.3 - 8.2 [facility] Albumin [Mass/volume] in Serum or Plasma 4.1 G/DL 3.9 - 5.0 [facility] Globulin [Mass/volume] in Serum by calculation 2.6 GM/DL 2.4 - 3.2 [facility] A/G RATIO 1.6 0.8 - 2.0 [facility] Calcium [Mass/volume] in Serum or Plasma 9.6 MG/DL 8.4 - 10.2 [facility] Bilirubin.total [Mass/volume] in Serum or Plasma <0.7 MG/DL 0.2 - 1.3 [facility] Alkaline phosphatase [Enzymatic activity/volume] in Serum or Plasma 65 U/L 38 - 126 [facility] Aspartate aminotransferase [Enzymatic activity/volume] in Se rum or Plasma 8 U/L 5 - 40 [facility] Alanine aminotransferase [Enzymatic activity/volume] in Seru m or Plasma 7 U/L 7 - 56 [facility] Anion gap 3 in Serum or Plasma 9.0 mmol/L 8.0 - 16.0 [facility] AGE 75 yrs [facility] NON-AA GFR 21 mL/min [facility] AFR AMER GFR >60 [facility] Male GFR In [...] >32 mL/min Normal ID Date Data Source [id number] 08/09/2020 04:02:00 PM [facility] Name Value Range Interpretation Code Description Data Ro rce(s) Supporting Document(s) Magnesium [Mass/volume] in Serum or Plasma 1.5 MG/DL 1.7 - 2.[address] [facility] ID Date Data Source [id number] 08/09/2020 04:02:00 PM [facility] Value Range Interpretation Code Description Data Ro rce(s) Supporting Document(s) Iron [Mass/volume] in Serum or Plasma 75 UG/DL 42 - 135 [facility] ID Date Data Source [id number] 08/09/2020 04:02:00 PM EST [facility] Name Value Range Interpretation Code Description Data Ro rce(s) Supporting Document(s) BNP 1329 PG/ML 0 - 125 H [facility] ID Date Data Source [id number] 08/09/2020 03:48:[address] [facility] Name Value Range Interpretation Code Description Data Ro rce(s) Supporting Document(s) Fibrin D-dimer FEU [Mass/volume] in Platelet poor plasma 3.96 ug /mL 0.27 - 0.[address] [facility] ID Date Data Source [id number] 06/12/2020 10:46:00 [place] [address] PROGRESS NOTENAME: TR Whtiley ROOM#: 119-1DATE OF : 1945 MR#: [id number] DATE: 05/28/20 OF SERVICE: 06/12/2020SUBJECTIVE:This patient has [...] rce(s) Supporting Document(s) ID Date Data Source [id number] 06/15/2020 02:17:00 [place] [address] DISCHARGE SUMMARYNAME: TR Whitley ROOM#: 119-1DATE OF : 1945 MR#: [id number] PHYS: Silver Peterson MD, PC DATE: 05/28/20 [...] ring because of regurgitation. [facility]. On examination, blood pressure was 130/80. [...] was 46, creatinine was 2.1. BNP was [address]. On 06/04, sodium was 143, potassiumwas 4.3, [...] IV was given for low hemoglobin. 1 [place] [address] DISCHARGE SUMMARYNAME: TR Whitley ROOM#: 119-1DATE OF : 1945 MR#: [id number] PHYS: Silver Peterson MD, PC DATE: 05/28/20 [...] 1 mg daily6. Gabapentin 100 mg b.i.d.7. [place] was stopped.8. Protonix 40 mg daily9. Plavix was stopped.10. Venlafaxine 60 mg daily11. Ventolin inhaler p.r.n.12. Metformin was hqcnpgo42. Januvia was added at 50 mg daily [...] valve ring.5. History of atrial fibrillation [address] [place] [address] DISCHARGE SUMMARYNAME: TR Whitley ROOM#: 119-1DATE OF : 1945 MR#: [id number] PHYS: Silver Peterson MD, PC DATE: 05/28/20 [...] rce(s) Supporting Document(s) ID Date Data Source [id number] 06/13/2020 12:18:00 [place] [address] PHONE: [phone] FAX: [phone] Name .................. : TR Whitley Acct Number.................. : [id number] ROOM. ................. : 119-1 MR Number ................... : [id number] Stay type ............. : I/P Discharge Date......... ... : Admit Date ......... : 05/28/20 Admit Phys .................... : REY BEVERLY Date of ....... : 1945 Family Phys ................... : CASPER Phone .................. : [phone] Age ................................ : 75 Film# .................. .:[id number] Sex ................................. : F Unsigned transcriptions are preliminary reports and do not represent a medical or legal document RENAL/URINARY BLADDER [id number] COMPLETE:06/11/20 12:38 BAW [id number] (PROCEDURE REASON :HYDRONEPHROSIS RENAL AND BLADDER ULTRASOUND: [...] Date: 06/11/20 16:52, Dictation Date: Copy for: [address] [place] [address] REC DISCHARGED Page 1 of 1 Name Value Range Interpretation Code Description Data Ro rce(s) Supporting Document(s) ID Date Data Source [id number] 06/13/2020 07:09:[address] [facility] Name Value Range Interpretation Code Description Data Ro rce(s) Supporting Document(s) CBC W/AUTOMATED DIFF [facility] COMPLETE BLOOD COUNT Leukocytes [#/volume] in Blood by Automated count 6.4 10^3/uL 4.2 - [address] [facility] Erythrocytes [#/volume] in Blood by Automated count 2.92 10^6/uL 4. 20 - 5.[address] [facility] Hemoglobin [Mass/volume] in Blood 8.8 g/dL 12.0 - 16.[address] [facility] Hematocrit [Volume Fraction] of Blood by Automated count 29.9 % 3 7.0 - 47.[address] [facility] Erythrocyte mean corpuscular volume [Entitic volume] b y Automated count 102.4 fL 81.0 - [address] [facility] Erythrocyte mean corpuscular hemoglobin [Entitic mass] by Automated count 30.1 pg 27.0 - 34.0 [facility] Erythrocyte mean corpuscular hemoglobin concentration [Mass/volume] by Automated count 29.4 g/dL 31.0 - 36.[address] [facility] Erythrocyte distribution width [Ratio] by Automated count 17.0 % 11.5 - 14.[address] [facility] Platelets [#/volume] in Blood by Automated count 227 10^3/uL 150 - [address] [facility] Platelet mean volume [Entitic volume] in Blood by Automated count 9.8 fL 7.4 - 10.4 [facility] Neutrophils/100 leukocytes in Blood by Automated count 64.1 % 37. 0 - 80.0 [facility] Lymphocytes/100 leukocytes in Blood by Manual count 11.7 % 25.0 - 40.[address] [facility] Monocytes/100 leukocytes in Blood by Automated count 14.5 % 3.0 - 8.[address] [facility] Eosinophils/100 leukocytes in Blood by Automated count 8.3 % 0.0 - 7.[address] [facility] Basophils/100 leukocytes in Blood by Automated count 0.5 % 0.0 - 2.5 [facility] %IG 0.9 % 0.0 - 0.0 H [facility] %NRBC 0.0 % 0.0 - 0.0 [facility] Neutrophils [#/volume] in Blood by Automated count 4.07 10^3/uL 2.00 - 6.90 [facility] Lymphocytes [#/volume] in Blood by Automated count 0.74 10^3/uL 0.60 - 3.40 [facility] Monocytes [#/volume] in Blood by Automated count 0.92 10^3/uL 0.00 - 0.[address] [facility] Eosinophils [#/volume] in Blood by Automated count 0.53 10^3/uL 0.00 - 0.70 [facility] Basophils [#/volume] in Blood by Automated count 0.03 10^3/uL 0.00 - 0.20 [facility] #IG 0.06 10^3/uL 0.00 - 0.10 [facility] ospital #NRBC 0.00 10^3/uL 0.00 - 0.00 [facility] ospital MANUAL DIFF NOT INDICATED [facility] RBC MORPH NOT INDICATED [facility] spital ID Date Data Source [id number] 06/13/2020 07:06:[address] [facility] Name Value Range Interpretation Code Description Data Ro rce(s) Supporting Document(s) COMPREHENSIVE METABOLIC PANEL [facility] COMPREHENSIVE METABOLIC PANEL Sodium [Moles/volume] in Serum or Plasma 144 mEq/L 134 - 153 [facility] Potassium [Moles/volume] in Serum or Plasma 4.5 mEq/L 3.6 - 5.0 [facility] Chloride [Moles/volume] in Serum or Plasma 104 mEq/L 98 - 107 [facility] Carbon dioxide, total [Moles/volume] in Serum or Plasma 35 MEQ/L 22 - [address] [facility] Glucose [Mass/volume] in Serum or Plasma 98 MG/DL 65 - 110 [facility] BUN 41 MG/DL 7 - 21 [facility] Creatinine [Mass/volume] in Serum or Plasma 1.9 MG/DL 0.7 - 1.[address] [facility] BUN/CREAT 22 8 - 27 [facility] Protein [Mass/volume] in Serum or Plasma 5.3 G/DL 6.3 - 8.[address] [facility] Albumin [Mass/volume] in Serum or Plasma 3.3 G/DL 3.9 - 5.[address] [facility] Globulin [Mass/volume] in Serum by calculation 2.0 GM/DL 2.4 - 3.[address] [facility] A/G RATIO 1.7 0.8 - 2.0 [facility] Calcium [Mass/volume] in Serum or Plasma 8.7 MG/DL 8.4 - 10.2 [facility] Bilirubin.total [Mass/volume] in Serum or Plasma <0.7 MG/DL 0.2 - 1.3 [facility] Alkaline phosphatase [Enzymatic activity/volume] in Serum or Plasma 94 U/L 38 - 126 [facility] Aspartate aminotransferase [Enzymatic activity/volume] in Serum or Plasma 14 U/L 5 - 40 [facility] Alanine aminotransferase [Enzymatic activity/volume] in Seru m or Plasma 25 U/L 7 - 56 [facility] Anion gap 3 in Serum or Plasma 5.0 mmol/L 8.0 - 16.[address] [facility] AGE 75 yrs [facility] NON-AA GFR 28 [facility] AMER GFR >60 [facility] Male GFR In [...] >32 mL/min Normal ID Date Data Source [id number] 06/12/2020 01:24:00 PM EDT [facility] [address] [place] [address] PHONE: [phone] FAX: [phone] Name .................. : PATRICIADEVI Whitley Acct Number.................. : [id number] ROOM. ................. : 119-1 MR Number ................... : [id number] Stay type ............. : I/P Discharge Date......... ... : Admit Date ......... : 05/10 Admit Phys .................... : REY BEVERLY Date of ....... : 1945 Family Phys ................... : [employer] Phone .................. : [phone] Age ................................ : 75 Film# .................. .:[id number] Sex ................................. : F Unsigned transcriptions are preliminary reports and do not represent a medical or legal document CT THORAX W/O CONTRAST [id number] COMPLETE:06/09/20 09:55 SAIMA [id number] (REASON FOR CHEST: EFFUSION CT OF THE [...] , 06/12/20 13:24, [place] [address] [place] [address] [place] [address] PHONE: [phone] FAX: [phone] Name .................. : TR Whitley Acct Number.................. : [id number] ROOM. ................. : 119-1 MR Number ................... : [id number] Stay type ............. : I/P Discharge Date......... ... : Admit Date ......... : 05/28/20 Admit Phys .................... : REY MIR Date of ....... : 1945 [facility] ................... : [facility] Phone .................. : [phone] Age ................................ : 75 Film# .................. .:[id number] Sex ................................. : F Unsigned transcriptions are preliminary reports and do not represent a medical or legal document CT THORAX W/O CONTRAST [id number] COMPLETE:06/09/20 09:55 SAIMA [id number] (REASON FOR CHEST: EFFUSION Transcribe Initials: DZ , Transcribe Date: 06/10/20 03:30, Dictation Date: Copy for: 002 [facility] Copy for: 710 [facility] REC Page 2 of 2 Name Value Range Interpretation Code Description Data Ro rce(s) Supporting Document(s) ID Date Data Source [id number] 06/11/2020 11:46:00 [place] [address] PROGRESS NOTENAME: TR Whitley ROOM#: 119-1DATE OF : 1945 MR#: [id number] DATE: 05/28/20 OF SERVICE: 06/11/20UBJECTIVE: This patient [...] rce(s) Supporting Document(s) ID Date Data Source [id number] 06/10/2020 11:17:00 [place] [address] PROGRESS NOTENAME: TR Whitley ROOM#: 119-1DATE OF : 1945 MR#: [id number] DATE: 05/28/20 OF SERVICE: 06/10/20UBJECTIVE: This patient's [...] b.i.d. p.o. for elevated serum potassium.DD: Silver Peterson MD, PC 06/10/20 11:32DT: RAMIRO 06/10/20 23:14DS: Marbin Peterson MD, PC 06/12/20 07:51 1 Name Value Range Interpretation Code Description Data Ro rce(s) Supporting Document(s) ID Date Data Source [id number] 06/09/2020 01:00:00 [place] [address] PROGRESS NOTENAME: TR Whitley ROOM#: 119-1DATE OF : 1945 MR#: [id number] DATE: 05/28/20 OF SERVICE: 06/09/20UBJECTIVE: This patient's [...] rce(s) Supporting Document(s) ID Date Data Source [id number] 06/08/2020 10:48:00 [place] [address] PROGRESS NOTENAME: TR Whitley ROOM#: 119-1DATE OF : 1945 MR#: [id number] DATE: 05/28/20 OF SERVICE: 06/08/2020SUBJECTIVE:This 75-year-old white [...] rce(s) Supporting Document(s) ID Date Data Source [id number] 06/07/2020 10:47:00 [place] [address] PROGRESS NOTENAME: TR Whitley ROOM#: 119-1DATE OF : 1945 MR#: [id number] DATE: 05/28/20 OF SERVICE: 06/07/2020SUBJECTIVE:Patient feels better. [...] rce(s) Supporting Document(s) ID Date Data Source [id number] 06/06/2020 01:48:00 [place] [address] PROGRESS NOTENAME: TR Whitley ROOM#: 119-1DATE OF : 1945 MR#: [id number] DATE: 05/28/20 OF SERVICE: 06/06/2020SUBJECTIVE:This patient is [...] isguarded.DD: Silver Peterson MD, PC 06/06/20 09:54DT: [facility] 06/06/20 13:48DS: Silver Peterson MD, PC 06/12/20 07:51 1 Name Value Range Interpretation Code Description Data Ro rce(s) Supporting Document(s) ID Date Data Source [id number] 06/05/2020 11:50:00 [place] [address] PROGRESS NOTENAME: TR Whitley ROOM#: 119-1DATE OF : 1945 MR#: [id number] DATE: 05/28/20 OF SERVICE: 06/05/2020SUBJECTIVE:Patient complains of [...] Name Value Range Interpretation Code Description Data [facility](s) Supporting Document(s) ID Date Data Source [id number] 06/12/2020 06:55:[address] [facility] Name Value Range Interpretation Code Description Data [facility](s) Supporting Document(s) CBC W/AUTOMATED DIFF [facility] COMPLETE BLOOD COUNT Leukocytes [#/volume] in Blood by Automated count 6.3 10^3/uL 4.2 - [address] [facility] Erythrocytes [#/volume] in Blood by Automated count 2.81 10^6/uL 4. 20 - 5.[address] [facility] Hemoglobin [Mass/volume] in Blood 8.6 g/dL 12.0 - 16.[address] [facility] Hematocrit [Volume Fraction] of Blood by Automated count 28.9 % 3 7.0 - 47.[address] [facility] Erythrocyte mean corpuscular volume [Entitic volume] b y Automated count 102.8 fL 81.0 - [address] [facility] Erythrocyte mean corpuscular hemoglobin [Entitic mass] by Automated count 30.6 pg 27.0 - 34.0 [facility] Erythrocyte mean corpuscular hemoglobin concentration [Mass/volume] by Automated count 29.8 g/dL 31.0 - 36.[address] [facility] Erythrocyte distribution width [Ratio] by Automated count 17.0 % 11.5 - 14.[address] [facility] Platelets [#/volume] in Blood by Automated count 203 10^3/uL 150 - [address] [facility] Platelet mean volume [Entitic volume] in Blood by Automated count 10.2 fL 7.4 - 10.4 [facility] Neutrophils/100 leukocytes in Blood by Automated count 66.5 % 37. 0 - 80.0 [facility] Lymphocytes/100 leukocytes in Blood by Manual count 11.4 % 25.0 - 40.[address] [facility] Monocytes/100 leukocytes in Blood by Automated count 13.4 % 3.0 - 8.[address] [facility] Eosinophils/100 leukocytes in Blood by Automated count 7.6 % 0.0 - 7.[address] [facility] 0.3 %IG 0.8 % 0.0 - 0.0 H [facility] %NRBC 0.0 % 0.0 - 0.0 [facility] Neutrophils [#/volume] in Blood by Automated count 4.18 10^3/uL 2.00 - 6.90 [facility] Lymphocytes [#/volume] in Blood by Automated count 0.72 10^3/uL 0.60 - 3.40 [facility] Monocytes [#/volume] in Blood by Automated count 0.84 10^3/uL 0.00 - 0.90 [facility] Eosinophils [#/volume] in Blood by Automated count 0.48 10^3/uL 0.00 - 0.70 [facility] Basophils [#/volume] in Blood by Automated count 0.02 10^3/uL 0.00 - 0.20 [facility] #IG 0.05 10^3/uL 0.00 - 0.10 [facility] ospital #NRBC 0.00 10^3/uL 0.00 - 0.00 [facility] MANUAL DIFF SEE BELOW [facility] ital Segmented neutrophils/100 leukocytes in Blood by Manual count 73 % 37 - 80 [facility] BAND 0 % 0 - 5 [facility] %LYMPH 13 % 25 - 40 [facility] %MONO 6 % 3 - 8 [facility] %EOS 8 % 0 - 7 [facility] 0 RBC MORPH NOT INDICATED [facility] spital ID Date Data Source [id number] 06/12/2020 06:54:[address] [facility] Name Value Range Interpretation Code Description Data Ro rce(s) Supporting Document(s) COMPREHENSIVE METABOLIC PANEL [facility] COMPREHENSIVE METABOLIC PANEL Sodium [Moles/volume] in Serum or Plasma 143 mEq/L 134 - 153 [facility] Potassium [Moles/volume] in Serum or Plasma 4.4 mEq/L 3.6 - 5.0 [facility] Chloride [Moles/volume] in Serum or Plasma 101 mEq/L 98 - 107 [facility] Carbon dioxide, total [Moles/volume] in Serum or Plasma 36 MEQ/L 22 - [address] [facility] Glucose [Mass/volume] in Serum or Plasma 115 MG/DL 65 - [address] [facility] BUN 44 MG/DL 7 - 21 H [facility] Creatinine [Mass/volume] in Serum or Plasma 2.7 MG/DL 0.7 - 1.[address] [facility] BUN/CREAT 16 8 - 27 [facility] Protein [Mass/volume] in Serum or Plasma 5.6 G/DL 6.3 - 8.[address] [facility] Albumin [Mass/volume] in Serum or Plasma 3.4 G/DL 3.9 - 5.[address] [facility] Globulin [Mass/volume] in Serum by calculation 2.2 GM/DL 2.4 - 3.[address] [facility] A/G RATIO 1.5 0.8 - 2.0 [facility] Calcium [Mass/volume] in Serum or Plasma 8.2 MG/DL 8.4 - 10.[address] [facility] Bilirubin.total [Mass/volume] in Serum or Plasma <0.7 MG/DL 0.2 - 1.3 [facility] Alkaline phosphatase [Enzymatic activity/volume] in Serum or Plasma 96 U/L 38 - 126 [facility] Aspartate aminotransferase [Enzymatic activity/volume] in Serum or Plasma 19 U/L 5 - 40 [facility] Alanine aminotransferase [Enzymatic activity/volume] in Seru m or Plasma 29 U/L 7 - 56 [facility] Anion gap 3 in Serum or Plasma 6.0 mmol/L 8.0 - 16.[address] [facility] AGE 75 yrs [facility] NON-AA GFR 18 mL/min [facility]er AFR AMER GFR >60 [facility] Male GFR In [...] >32 mL/min Normal ID Date Data Source [id number] 06/04/2020 11:02:00 [place] [address] PROGRESS NOTENAME: TR Whitley ROOM#: 119-1DATE OF : 1945 MR#: [id number] DATE: 05/28/20 OF SERVICE: 06/04/20UBJECTIVE: She was [...] rce(s) Supporting Document(s) ID Date Data Source [id number] 06/03/2020 11:06:00 [place] [address] PROGRESS NOTENAME: TR Whitley ROOM#: 119-1DATE OF : 1945 MR#: [id number] DATE: 05/28/20 OF SERVICE: 06/03/20UBJECTIVE: She was [...] rce(s) Supporting Document(s) ID Date Data Source [id number] 06/11/2020 08:01:[address] [facility] Name Value Range Interpretation Code Description Data Ro rce(s) Supporting Document(s) CBC W/AUTOMATED DIFF [facility] COMPLETE BLOOD COUNT Leukocytes [#/volume] in Blood by Automated count 5.6 10^3/uL 4.2 - [address] [facility] Erythrocytes [#/volume] in Blood by Automated count 2.90 10^6/uL 4. 20 - 5.[address] [facility] Hemoglobin [Mass/volume] in Blood 8.9 g/dL 12.0 - 16.[address] [facility] Hematocrit [Volume Fraction] of Blood by Automated count 30.2 % 3 7.0 - 47.[address] [facility] Erythrocyte mean corpuscular volume [Entitic volume] b y Automated count 104.1 fL 81.0 - [address] [facility] Erythrocyte mean corpuscular hemoglobin [Entitic mass] by Automated count 30.7 pg 27.0 - 34.0 [facility] Erythrocyte mean corpuscular hemoglobin concentration [Mass/volume] by Automated count 29.5 g/dL 31.0 - 36.[address] [facility] Erythrocyte distribution width [Ratio] by Automated count 17.3 % 11.5 - 14.[address] [facility] Platelets [#/volume] in Blood by Automated count 198 10^3/uL 150 - [address] [facility] Platelet mean volume [Entitic volume] in Blood by Automated count 10.3 fL 7.4 - 10.4 [facility] Neutrophils/100 leukocytes in Blood by Automated count 61.0 % 37. 0 - 80.0 [facility] Lymphocytes/100 leukocytes in Blood by Manual count 13.5 % 25.0 - 40.[address] [facility] Monocytes/100 leukocytes in Blood by Automated count 16.3 % 3.0 - 8.[address] [facility] Eosinophils/100 leukocytes in Blood by Automated count 7.6 % 0.0 - 7.[address] [facility] Basophils/100 leukocytes in Blood by Automated count 0.7 % 0.0 - 2.5 [facility] %IG 0.9 % 0.0 - 0.0 [facility] %NRBC 0.0 % 0.0 - 0.0 [facility] Neutrophils [#/volume] in Blood by Automated count 3.43 10^3/uL 2.00 - 6.90 [facility] Lymphocytes [#/volume] in Blood by Automated count 0.76 10^3/uL 0.60 - 3.40 [facility] Monocytes [#/volume] in Blood by Automated count 0.92 10^3/uL 0.00 - 0.[address] [facility] Eosinophils [#/volume] in Blood by Automated count 0.43 10^3/uL 0.00 - 0.70 [facility] Basophils [#/volume] in Blood by Automated count 0.04 10^3/uL 0.00 - 0.20 [facility] #IG 0.05 10^3/uL 0.00 - 0.10 [facility] #NRBC 0.00 10^3/uL 0.00 - 0.00 [facility] ospital MANUAL DIFF NOT INDICATED [facility] RBC MORPH NOT INDICATED [facility] spital ID Date Data Source [id number] 06/11/2020 08:00:[address] [facility] Name Value Range Interpretation Code Description Data Ro rce(s) Supporting Document(s) COMPREHENSIVE METABOLIC PANEL [facility] COMPREHENSIVE METABOLIC PANEL Sodium [Moles/volume] in Serum or Plasma 143 mEq/L 134 - 153 [facility] Potassium [Moles/volume] in Serum or Plasma 5.6 mEq/L 3.6 - 5.[address] [facility] Chloride [Moles/volume] in Serum or Plasma 104 mEq/L 98 - 107 [facility] Carbon dioxide, total [Moles/volume] in Serum or Plasma 34 MEQ/L 22 - [address] [facility] Glucose [Mass/volume] in Serum or Plasma 90 MG/DL 65 - 110 [facility] BUN 34 MG/DL 7 - 21 H [facility] Creatinine [Mass/volume] in Serum or Plasma 1.9 MG/DL 0.7 - 1.[address] [facility] BUN/CREAT 18 8 - 27 [facility] Protein [Mass/volume] in Serum or Plasma 5.5 G/DL 6.3 - 8.[address] [facility] Albumin [Mass/volume] in Serum or Plasma 3.4 G/DL 3.9 - 5.[address] [facility] Globulin [Mass/volume] in Serum by calculation 2.1 GM/DL 2.4 - 3.[address] [facility] A/G RATIO 1.6 0.8 - 2.0 [facility] Calcium [Mass/volume] in Serum or Plasma 8.1 MG/DL 8.4 - 10.[address] [facility] Bilirubin.total [Mass/volume] in Serum or Plasma <0.7 MG/DL 0.2 - 1.3 [facility] Alkaline phosphatase [Enzymatic activity/volume] in Serum or Plasma 76 U/L 38 - 126 [facility] Aspartate aminotransferase [Enzymatic activity/volume] in Serum or Plasma 12 U/L 5 - 40 [facility] Alanine aminotransferase [Enzymatic activity/volume] in Seru m or Plasma 11 U/L 7 - 56 [facility] Anion gap 3 in Serum or Plasma 5.0 mmol/L 8.0 - 16.[address] [facility] AGE 75 yrs [facility] NON-AA GFR 28 mL/min [facility] AFR AMER GFR >60 [facility] Male GFR In [...] >32 mL/min Normal ID Date Data Source [id number] 06/11/2020 07:52:[address] [facility] Name Value Range Interpretation Code Description Data Ro rce(s) Supporting Document(s) Cobalamin (Vitamin B12) [Mass/volume] in Serum or Plasma 759 PG/ML 232 - 1245 [facility] ID Date Data Source [id number] 06/11/2020 07:40:[address] [facility] Name Value Range Interpretation Code Description Data Ro rce(s) Supporting Document(s) Magnesium [Mass/volume] in Serum or Plasma 1.9 MG/DL 1.7 - 2.2 [facility] ID Date Data Source [id number] 06/10/2020 12:33:[address] [facility] Name Value Range Interpretation Code Description Data Ro rce(s) Supporting Document(s) Iron [Mass/volume] in Serum or Plasma 33 UG/DL 42 - [address] [facility] ID Date Data Source [id number] 06/10/2020 08:07:[address] [facility] Name Value Range Interpretation Code Description Data Ro rce(s) Supporting Document(s) CBC W/AUTOMATED DIFF [facility] COMPLETE BLOOD COUNT Leukocytes [#/volume] in Blood by Automated count 6.0 10^3/uL 4.2 - [address] [facility] Erythrocytes [#/volume] in Blood by Automated count 2.91 10^6/uL 4. 20 - 5.[address] [facility] Hemoglobin [Mass/volume] in Blood 8.9 g/dL 12.0 - 16.[address] [facility] Hematocrit [Volume Fraction] of Blood by Automated count 30.2 % 3 7.0 - 47.[address] [facility] Erythrocyte mean corpuscular volume [Entitic volume] b y Automated count 103.8 fL 81.0 - [address] [facility] Erythrocyte mean corpuscular hemoglobin [Entitic mass] by Automated count 30.6 pg 27.0 - 34.0 [facility] Erythrocyte mean corpuscular hemoglobin concentration [Mass/volume] by Automated count 29.5 g/dL 31.0 - 36.[address] [facility] Erythrocyte distribution width [Ratio] by Automated count 17.5 % 11.5 - 14.[address] [facility] Platelets [#/volume] in Blood by Automated count 185 10^3/uL 150 - [address] [facility] Platelet mean volume [Entitic volume] in Blood by Automated count 10.2 fL 7.4 - 10.4 [facility] Neutrophils/100 leukocytes in Blood by Automated count 62.8 % 37. 0 - 80.0 [facility] Lymphocytes/100 leukocytes in Blood by Manual count 13.7 % 25.0 - 40.[address] [facility] Monocytes/100 leukocytes in Blood by Automated count 15.2 % 3.0 - 8.[address] [facility] Eosinophils/100 leukocytes in Blood by Automated count 6.8 % 0.0 - 7.0 [facility] Basophils/100 leukocytes in Blood by Automated count 0.5 % 0.0 - 2.5 [facility] %IG 1.0 % 0.0 - 0.0 H [facility] %NRBC 0.0 % 0.0 - 0.0 [facility] Neutrophils [#/volume] in Blood by Automated count 3.77 10^3/uL 2.00 - 6.90 [facility] Lymphocytes [#/volume] in Blood by Automated count 0.82 10^3/uL 0.60 - 3.40 [facility] Monocytes [#/volume] in Blood by Automated count 0.91 10^3/uL 0.00 - 0.[address] [facility] Eosinophils [#/volume] in Blood by Automated count 0.41 10^3/uL 0.00 - 0.70 [facility] Basophils [#/volume] in Blood by Automated count 0.03 10^3/uL 0.00 - 0.20 [facility] #IG 0.06 10^3/uL 0.00 - 0.10 [facility] ospital #NRBC 0.00 10^3/uL 0.00 - 0.00 [facility] ospital MANUAL DIFF NOT INDICATED [facility] RBC MORPH NOT INDICATED [facility] spital ID Date Data Source [id number] 06/10/2020 07:46:[address] [facility] Name Value Range Interpretation Code Description Data Ro rce(s) Supporting Document(s) COMPREHENSIVE METABOLIC PANEL [facility] COMPREHENSIVE METABOLIC PANEL Sodium [Moles/volume] in Serum or Plasma 144 mEq/L 134 - 153 [facility] Potassium [Moles/volume] in Serum or Plasma 5.1 mEq/L 3.6 - 5.[address] [facility] Chloride [Moles/volume] in Serum or Plasma 102 mEq/L 98 - 107 [facility] Carbon dioxide, total [Moles/volume] in Serum or Plasma 36 MEQ/L 22 - [address] [facility] Glucose [Mass/volume] in Serum or Plasma 102 MG/DL 65 - 110 [facility] BUN 42 MG/DL 7 - [address] [facility] Creatinine [Mass/volume] in Serum or Plasma 2.1 MG/DL 0.7 - 1.[address] [facility] BUN/CREAT 20 8 - 27 [facility] Protein [Mass/volume] in Serum or Plasma 5.4 G/DL 6.3 - 8.[address] [facility] Albumin [Mass/volume] in Serum or Plasma 3.4 G/DL 3.9 - 5.[address] [facility] Globulin [Mass/volume] in Serum by calculation 2.0 GM/DL 2.4 - 3.[address] [facility] A/G RATIO 1.7 0.8 - 2.0 [facility] Calcium [Mass/volume] in Serum or Plasma 8.3 MG/DL 8.4 - 10.[address] [facility] Bilirubin.total [Mass/volume] in Serum or Plasma <0.7 MG/DL 0.2 - 1.3 [facility] Alkaline phosphatase [Enzymatic activity/volume] in Serum or Plasma 72 U/L 38 - 126 [facility] Aspartate aminotransferase [Enzymatic activity/volume] in Serum or Plasma 10 U/L 5 - 40 [facility] Alanine aminotransferase [Enzymatic activity/volume] in Seru m or Plasma 9 U/L 7 - 56 [facility] Anion gap 3 in Serum or Plasma 6.0 mmol/L 8.0 - 16.[address] [facility] AGE 75 yrs [facility] NON-AA GFR 25 mL/min [facility] AFR AMER GFR >60 [facility] Male GFR In [...] >32 mL/min Normal ID Date Data Source [id number] 06/09/2020 07:02:[address] [facility] Name Value Range Interpretation Code Description Data Ro rce(s) Supporting Document(s) COMPREHENSIVE METABOLIC PANEL [facility] COMPREHENSIVE METABOLIC PANEL Sodium [Moles/volume] in Serum or Plasma 145 mEq/L 134 - 153 [facility] Potassium [Moles/volume] in Serum or Plasma 5.0 mEq/L 3.6 - 5.0 [facility] Chloride [Moles/volume] in Serum or Plasma 103 mEq/L 98 - 107 [facility] [place] Carbon dioxide, total [Moles/volume] in Serum or Plasma 36 MEQ/L 22 - [address] [facility] Glucose [Mass/volume] in Serum or Plasma 107 MG/DL 65 - 110 [facility] BUN 46 MG/DL 7 - 21 H [facility] Creatinine [Mass/volume] in Serum or Plasma 1.7 MG/DL 0.7 - 1.[address] [facility] BUN/CREAT 27 8 - 27 [facility] Protein [Mass/volume] in Serum or Plasma 5.4 G/DL 6.3 - 8.[address] [facility] Albumin [Mass/volume] in Serum or Plasma 3.6 G/DL 3.9 - 5.[address] [facility] Globulin [Mass/volume] in Serum by calculation 1.8 GM/DL 2.4 - 3.[address] [facility] A/G RATIO 2.0 0.8 - 2.0 [facility] Calcium [Mass/volume] in Serum or Plasma 8.8 MG/DL 8.4 - 10.2 [facility] Bilirubin.total [Mass/volume] in Serum or Plasma <0.7 MG/DL 0.2 - 1.3 [facility] Alkaline phosphatase [Enzymatic activity/volume] in Serum or Plasma 73 U/L 38 - 126 [facility] Aspartate aminotransferase [Enzymatic activity/volume] in Se rum or Plasma 9 U/L 5 - 40 [facility] Alanine aminotransferase [Enzymatic activity/volume] in Seru m or Plasma 10 U/L 7 - 56 [facility] Anion gap 3 in Serum or Plasma 6.0 mmol/L 8.0 - 16.[address] [facility] AGE 75 yrs [facility] NON-AA GFR 31 mL/min [facility] AFR AMER GFR >60 [facility] Male GFR In [...] >32 mL/min Normal ID Date Data Source [id number] 06/09/2020 07:01:[address] [facility] Name Value Range Interpretation Code Description Data Ro rce(s) Supporting Document(s) CBC W/AUTOMATED DIFF [facility] COMPLETE BLOOD COUNT Leukocytes [#/volume] in Blood by Automated count 7.2 10^3/uL 4.2 - [address] [facility] Erythrocytes [#/volume] in Blood by Automated count 3.05 10^6/uL 4. 20 - 5.[address] [facility] Hemoglobin [Mass/volume] in Blood 9.1 g/dL 12.0 - 16.[address] [facility] Hematocrit [Volume Fraction] of Blood by Automated count 32.1 % 3 7.0 - 47.[address] [facility] Erythrocyte mean corpuscular volume [Entitic volume] b y Automated count 105.2 fL 81.0 - [address] [facility] Erythrocyte mean corpuscular hemoglobin [Entitic mass] by Automated count 29.8 pg 27.0 - 34.0 [facility] Erythrocyte mean corpuscular hemoglobin concentration [Mass/volume] by Automated count 28.3 g/dL 31.0 - 36.[address] [facility] Erythrocyte distribution width [Ratio] by Automated count 17.6 % 11.5 - 14.[address] [facility] Platelets [#/volume] in Blood by Automated count 183 10^3/uL 150 - [address] [facility] Platelet mean volume [Entitic volume] in Blood by Automated count 10.4 fL 7.4 - 10.4 [facility] Neutrophils/100 leukocytes in Blood by Automated count 66.6 % 37. 0 - 80.0 [facility] Lymphocytes/100 leukocytes in Blood by Manual count 12.6 % 25.0 - 40.[address] [facility] Monocytes/100 leukocytes in Blood by Automated count 14.5 % 3.0 - 8.[address] [facility] Eosinophils/100 leukocytes in Blood by Automated count 4.6 % 0.0 - 7.0 [facility] Basophils/100 leukocytes in Blood by Automated count 0.6 % 0.0 - 2.5 [facility] %IG 1.1 % 0.0 - [facility] 0.[facility] % 0.0 - 0.0 [facility] Neutrophils [#/volume] in Blood by Automated count 4.83 10^3/uL 2.00 - 6.90 [facility] Lymphocytes [#/volume] in Blood by Automated count 0.91 10^3/uL 0.60 - 3.40 [facility] Monocytes [#/volume] in Blood by Automated count 1.05 10^3/uL 0.00 - 0.[address] [facility] Eosinophils [#/volume] in Blood by Automated count 0.33 10^3/uL 0.00 - 0.70 [facility] Basophils [#/volume] in Blood by Automated count 0.04 10^3/uL 0.00 - 0.20 [facility] #IG 0.08 10^3/uL 0.00 - 0.10 [facility] #NRBC 0.00 10^3/uL 0.00 - 0.00 [facility] ospital MANUAL DIFF SEE BELOW [facility] ital Segmented neutrophils/100 leukocytes in Blood by Manual count 93 % 37 - [address] [facility] %LYMPH 4 % 25 - 40 L [facility] %MONO 3 % 3 - 8 [facility] RBC MORPH [facility]OW [facility] Anisocytosis [Presence] in Blood by Light microscopy 1+ FARRUKH L: NONE SEEN A [facility] Macrocytes [Presence] in Blood by Light microscopy 1+ NORMAL: NONE SEEN A [facility] Poikilocytosis [Presence] in Blood by Light microscopy 1+ NOR MAL: NONE SEEN A [facility] HYPO 1+ NORMAL: NONE SEEN A [facility] Polychromasia [Presence] in Blood by Light microscopy 1+ NORM AL: NONE SEEN A [facility] { SICKLE CELL (NORMAL: NONE SEEN ) Platelet adequacy [Presence] in Blood by Light microscopy NORMAL NORMAL: NORMAL [facility] COMMENT: ID Date Data Source [id number] 06/08/2020 07:21:[address] [facility] Name Value Range Interpretation Code Description Data Ro rce(s) Supporting Document(s) CBC W/AUTOMATED DIFF [facility] COMPLETE BLOOD COUNT Leukocytes [#/volume] in Blood by Automated count 8.5 10^3/uL 4.2 - [address] [facility] Erythrocytes [#/volume] in Blood by Automated count 2.98 10^6/uL 4. 20 - 5.[address] [facility] Hemoglobin [Mass/volume] in Blood 9.0 g/dL 12.0 - 16.[address] [facility] Hematocrit [Volume Fraction] of Blood by Automated count 31.1 % 3 7.0 - 47.[address] [facility] Erythrocyte mean corpuscular volume [Entitic volume] b y Automated count 104.4 fL 81.0 - [address] [facility] Erythrocyte mean corpuscular hemoglobin [Entitic mass] by Automated count 30.2 pg 27.0 - 34.0 [facility] Erythrocyte mean corpuscular hemoglobin concentration [Mass/volume] by Automated count 28.9 g/dL 31.0 - 36.[address] [facility] Erythrocyte distribution width [Ratio] by Automated count 17.5 % 11.5 - 14.[address] [facility] Platelets [#/volume] in Blood by Automated count 167 10^3/uL 150 - [address] [facility] Platelet mean volume [Entitic volume] in Blood by Automated count 10.6 fL 7.4 - 10.[address] [facility] Neutrophils/100 leukocytes in Blood by Automated count 70.9 % 37. 0 - 80.0 [facility] Lymphocytes/100 leukocytes in Blood by Manual count 10.5 % 25.0 - 40.[address] [facility] Monocytes/100 leukocytes in Blood by Automated count 13.4 % 3.0 - 8.[address] [facility] Eosinophils/100 leukocytes in Blood by Automated count 3.9 % 0.0 - 7.0 [facility] Basophils/100 leukocytes in Blood by Automated count 0.4 % 0.0 - 2.5 [facility] %IG 0.9 % 0.0 - 0.0 H [facility] %NRBC 0.0 % 0.0 - 0.0 [facility] Neutrophils [#/volume] in Blood by Automated count 5.99 10^3/uL 2.00 - 6.90 [facility] Lymphocytes [#/volume] in Blood by Automated count 0.89 10^3/uL 0.60 - 3.40 [facility] Monocytes [#/volume] in Blood by Automated count 1.13 10^3/uL 0.00 - 0.[address] [facility] Eosinophils [#/volume] in Blood by Automated count 0.33 10^3/uL 0.00 - 0.70 [facility] Basophils [#/volume] in Blood by Automated count 0.03 10^3/uL 0.00 - 0.20 [facility] #IG 0.08 10^3/uL 0.00 - 0.10 [facility] #NRBC 0.00 10^3/uL 0.00 - 0.00 [facility] MANUAL DIFF NOT INDICATED [facility] RBC MORPH NOT INDICATED [facility] ID Date Data Source [id number] 06/08/2020 07:03:[address] [facility] Name Value Range Interpretation Code Description Data Ro rce(s) Supporting Document(s) COMPREHENSIVE METABOLIC PANEL [facility] COMPREHENSIVE METABOLIC PANEL Sodium [Moles/volume] in Serum or Plasma 143 mEq/L 134 - 153 [facility] Potassium [Moles/volume] in Serum or Plasma 5.1 mEq/L 3.6 - 5.[address] [facility] Chloride [Moles/volume] in Serum or Plasma 100 mEq/L 98 - 107 [facility] Carbon dioxide, total [Moles/volume] in Serum or Plasma 38 MEQ/L 22 - [address] [facility] Glucose [Mass/volume] in Serum or Plasma 117 MG/DL 65 - [address] [facility] BUN 50 MG/DL 7 - 21 H [facility] Creatinine [Mass/volume] in Serum or Plasma 2.0 MG/DL 0.7 - 1.[address] [facility] BUN/CREAT 25 8 - 27 [facility] Protein [Mass/volume] in Serum or Plasma 5.6 G/DL 6.3 - 8.[address] [facility] Albumin [Mass/volume] in Serum or Plasma 3.4 G/DL 3.9 - 5.[address] [facility] Globulin [Mass/volume] in Serum by calculation 2.2 GM/DL 2.4 - 3.[address] [facility] A/G RATIO 1.5 0.8 - 2.0 [facility] Calcium [Mass/volume] in Serum or Plasma 8.5 MG/DL 8.4 - 10.2 [facility] Bilirubin.total [Mass/volume] in Serum or Plasma <0.7 MG/DL 0.2 - 1.3 [facility] Alkaline phosphatase [Enzymatic activity/volume] in Serum or Plasma 68 U/L 38 - 126 [facility] Aspartate aminotransferase [Enzymatic activity/volume] in Se rum or Plasma 8 U/L 5 - 40 [facility] Alanine aminotransferase [Enzymatic activity/volume] in Seru m or Plasma 10 U/L 7 - 56 [facility] Anion gap 3 in Serum or Plasma 5.0 mmol/L 8.0 - 16.[address] [facility] AGE 75 yrs [facility] NON-AA GFR 26 mL/min [facility] AFR AMER GFR >60 [facility] Male GFR In [...] >32 mL/min Normal ID Date Data Source [id number] 06/07/2020 12:45:00 PM EDT [facility] [address] [place] [address] PHONE: [phone] FAX: [phone] Name .................. : TR Whitley Acct Number.................. : [id number] ROOM. ................. : 119-1 Number ................... : [id number] Stay type ............. : I/P Discharge Date......... ... : Admit Date ......... : 05/10 Admit Phys .................... : REY BEVERLY Date of ....... : 1945 Family Phys ................... : CASPER Phone .................. : [phone] Age ................................ : 75 Film# .................. .:[id number] Sex ................................. : F Unsigned transcriptions are preliminary reports and do not represent a medical or legal document CHEST 2 VIEWS [id number] COMPLETE:06/07/20 06:42 DLA 29051 (REASON FOR CHEST: CHF CHEST TWO VIEW, [...] 06/07/20 09:22, Dictation Date: Copy for: 002 [facility] Copy for: 710 [facility] REC Page 1 of 1 Name Value Range Interpretation Code Description Data Ro rce(s) Supporting Document(s) ID Date Data Source [id number] 06/07/2020 06:55:[address] [facility] Name Value Range Interpretation Code Description Data Ro rce(s) Supporting Document(s) COMPREHENSIVE METABOLIC PANEL [facility] COMPREHENSIVE METABOLIC PANEL Sodium [Moles/volume] in Serum or Plasma 143 mEq/L 134 - 153 [facility] Potassium [Moles/volume] in Serum or Plasma 4.7 mEq/L 3.6 - 5.0 [facility] Chloride [Moles/volume] in Serum or Plasma 97 mEq/L 98 - [address] [facility] Carbon dioxide, total [Moles/volume] in Serum or Plasma 38 MEQ/L 22 - [address] [facility] Glucose [Mass/volume] in Serum or Plasma 110 MG/DL 65 - 110 [facility] BUN 53 MG/DL 7 - 21 H [facility] Creatinine [Mass/volume] in Serum or Plasma 2.3 MG/DL 0.7 - 1.[address] [facility] BUN/CREAT 23 8 - 27 [facility] Protein [Mass/volume] in Serum or Plasma 5.3 G/DL 6.3 - 8.[address] [facility] Albumin [Mass/volume] in Serum or Plasma 3.2 G/DL 3.9 - 5.[address] [facility] Globulin [Mass/volume] in Serum by calculation 2.1 GM/DL 2.4 - 3.[address] [facility] A/G RATIO 1.5 0.8 - 2.0 [facility] Calcium [Mass/volume] in Serum or Plasma 8.4 MG/DL 8.4 - 10.2 [facility] Bilirubin.total [Mass/volume] in Serum or Plasma <0.7 MG/DL 0.2 - 1.3 [facility] Alkaline phosphatase [Enzymatic activity/volume] in Serum or Plasma 58 U/L 38 - 126 [facility] Aspartate aminotransferase [Enzymatic activity/volume] in Se rum or Plasma 8 U/L 5 - 40 [facility] Alanine aminotransferase [Enzymatic activity/volume] in Seru m or Plasma 11 U/L 7 - 56 [facility] Anion gap 3 in Serum or Plasma 8.0 mmol/L 8.0 - 16.0 [facility] 75 [facility] A[facility] AMER GFR >60 [facility] pital Male GFR In terprentation 20-49 [...] >32 mL/min Normal ID Date Data Source [id number] 06/07/2020 06:50:[address] [facility] Name Value Range Interpretation Code Description Data Ro rce(s) Supporting Document(s) BNP 2536 PG/ML 0 - 125 H [facility] ID Date Data Source [id number] 06/07/2020 10:53:[address] [facility] Name Value Range Interpretation Code Description Data Ro rce(s) Supporting Document(s) Iron [Mass/volume] in Serum or Plasma 54 UG/DL 42 - 135 [facility] ID Date Data Source [id number] 06/07/2020 07:10:[address] [facility] Name Value Range Interpretation Code Description Data Ro rce(s) Supporting Document(s) CBC W/AUTOMATED DIFF [facility] COMPLETE BLOOD COUNT Leukocytes [#/volume] in Blood by Automated count 7.8 10^3/uL 4.2 - [address] [facility] Erythrocytes [#/volume] in Blood by Automated count 2.89 10^6/uL 4. 20 - 5.[address] [facility] Hemoglobin [Mass/volume] in Blood 8.8 g/dL 12.0 - 16.[address] [facility] Hematocrit [Volume Fraction] of Blood by Automated count 29.8 % 3 7.0 - 47.[address] [facility] Erythrocyte mean corpuscular volume [Entitic volume] b y Automated count 103.1 fL 81.0 - [address] [facility] Erythrocyte mean corpuscular hemoglobin [Entitic mass] by Automated count 30.4 pg 27.0 - 34.0 [facility] Erythrocyte mean corpuscular hemoglobin concentration [Mass/volume] by Automated count 29.5 g/dL 31.0 - 36.[address] [facility] Erythrocyte distribution width [Ratio] by Automated count 17.3 % 11.5 - 14.[address] [facility] Platelets [#/volume] in Blood by Automated count 169 10^3/uL 150 - [address] [facility] Platelet mean volume [Entitic volume] in Blood by Automated count 10.7 fL 7.4 - 10.[address] [facility] Neutrophils/100 leukocytes in Blood by Automated count 65.0 % 37. 0 - 80.0 [facility] Lymphocytes/100 leukocytes in Blood by Manual count 13.0 % 25.0 - 40.[address] [facility] Monocytes/100 leukocytes in Blood by Automated count 16.0 % 3.0 - 8.[address] [facility] Eosinophils/100 leukocytes in Blood by Automated count 4.2 % 0.0 - 7.0 [facility] 0.4 %IG 1.4 % 0.0 - 0.0 [facility] %NRBC 0.0 % 0.0 - 0.0 [facility] Neutrophils [#/volume] in Blood by Automated count 5.09 10^3/uL 2.00 - 6.90 [facility] Lymphocytes [#/volume] in Blood by Automated count 1.02 10^3/uL 0.60 - 3.40 [facility] Monocytes [#/volume] in Blood by Automated count 1.25 10^3/uL 0.00 - 0.[address] [facility] Eosinophils [#/volume] in Blood by Automated count 0.33 10^3/uL 0.00 - 0.70 [facility] Basophils [#/volume] in Blood by Automated count 0.03 10^3/uL 0.00 - 0.20 [facility] #IG 0.11 10^3/uL 0.00 - 0.10 H [facility] #NRBC 0.00 10^3/uL 0.00 - 0.00 [facility] MANUAL DIFF SEE BELOW [facility] ital Segmented neutrophils/100 leukocytes in Blood by Manual count 73 % 37 - 80 [facility] BAND 0 % 0 - 5 [facility] al %LYMPH 17 % 25 - 40 L [facility] %MONO 7 % 3 - 8 [facility] %EOS 3 % 0 - 7 [facility] 0 RBC MORPH SEE BELOW [facility] Anisocytosis [Presence] in Blood by Light microscopy 1+ FARRUKH L: NONE SEEN A [facility] Poikilocytosis [Presence] in Blood by Light microscopy 1+ NOR MAL: NONE SEEN A [facility] HYPO 1+ NORMAL: NONE SEEN A [facility] { SICKLE CELL (NORMAL: NONE SEEN ) COMMENT: ID Date Data Source [id number] 06/06/2020 10:42:00 AM EDT [facility] [address] [place] [address] PHONE: [phone] FAX: [phone] Name .................. : TR Whitley Acct Number.................. : [id number] ROOM. ................. : 119-1 Number ................... : [id number] Stay type ............. : I/P Discharge Date......... ... : Admit Date ......... : 05/28/20 Admit Phys .................... : REY BEVERLY Date of ....... : 1945 Family Phys ................... : CASPER Phone .................. : [phone] Age ................................ : 75 Film# .................. .:[id number] Sex ................................. : F Unsigned transcriptions are preliminary reports and do not represent a medical or legal document CT THORAX W/O CONTRAST [id number] COMPLETE:06/05/20 19:06 [facility] [address]140 (REASON FOR CHEST: CHF CT OF THE [...] 03:18, Dictation Date: Page 1 of [address] [place] [address] PHONE: [phone] FAX: [phone] Name .................. : TR Whitley Acct Number.................. : [id number] ROOM. ................. : 119-1 MR Number ................... : [id number] Stay type ............. : I/P Discharge Date......... ... : Admit Date ......... : 05/28/20 Admit Phys .................... : REY BEVERLY Date of ....... : 1945 Family Phys ................... : [employer] Phone .................. : [phone] Age ................................ : 75 Film# .................. .:[id number] Sex ................................. : F Unsigned transcriptions are preliminary reports and do not represent a medical or legal document CT [facility] W/O CONTRAST [id number] COMPLETE:06/05/20 19:06 [facility] [address] (REASON FOR CHEST: CHF Copy for: 002 [facility] Copy for: 710 MED REC Page 2 of 2 Name Value Range Interpretation Code Description Data Ro rce(s) Supporting Document(s) ID Date Data Source [id number] 06/06/2020 07:24:[address] [facility] Name Value Range Interpretation Code Description Data Ro rce(s) Supporting Document(s) CBC W/AUTOMATED DIFF [facility] COMPLETE BLOOD COUNT Leukocytes [#/volume] in Blood by Automated count 9.1 10^3/uL 4.2 - [address] [facility] Erythrocytes [#/volume] in Blood by Automated count 2.93 10^6/uL 4. 20 - 5.[address] [facility] Hemoglobin [Mass/volume] in Blood 8.9 g/dL 12.0 - 16.[address] [facility] Hematocrit [Volume Fraction] of Blood by Automated count 31.0 % 3 7.0 - 47.[address] [facility] Erythrocyte mean corpuscular volume [Entitic volume] b y Automated count 105.8 fL 81.0 - [address] [facility] Erythrocyte mean corpuscular hemoglobin [Entitic mass] by Automated count 30.4 pg 27.0 - 34.0 [facility] Erythrocyte mean corpuscular hemoglobin concentration [Mass/volume] by Automated count 28.7 g/dL 31.0 - 36.[address] [facility] Erythrocyte distribution width [Ratio] by Automated count 17.6 % 11.5 - 14.[address] [facility] Platelets [#/volume] in Blood by Automated count 174 10^3/uL 150 - [address] [facility] Platelet mean volume [Entitic volume] in Blood by Automated count 10.8 fL 7.4 - 10.[address] [facility] Neutrophils/100 leukocytes in Blood by Automated count 71.2 % 37. 0 - 80.0 [facility] Lymphocytes/100 leukocytes in Blood by Manual count 11.0 % 25.0 - 40.[address] [facility] Monocytes/100 leukocytes in Blood by Automated count 14.1 % 3.0 - 8.[address] [facility] Eosinophils/100 leukocytes in Blood by Automated count 2.4 % 0.0 - 7.0 [facility] Basophils/100 leukocytes in Blood by Automated count 0.2 % 0.0 - 2.5 [facility] %IG 1.1 % 0.0 - 0.0 [facility] %NRBC 0.0 % 0.0 - 0.0 [facility] al Neutrophils [#/volume] in Blood by Automated count 6.49 10^3/uL 2.00 - 6.90 [facility] Lymphocytes [#/volume] in Blood by Automated count 1.00 10^3/uL 0.60 - 3.40 [facility] Monocytes [#/volume] in Blood by Automated count 1.29 10^3/uL 0.00 - 0.[address] [facility] Eosinophils [#/volume] in Blood by Automated count 0.22 10^3/uL 0.00 - 0.70 [facility] Basophils [#/volume] in Blood by Automated count 0.02 10^3/uL 0.00 - 0.20 [facility] #IG 0.10 10^3/uL 0.00 - 0.10 [facility] #NRBC 0.00 10^3/uL 0.00 - 0.00 [facility] MANUAL DIFF SEE BELOW [facility] ital Segmented neutrophils/100 leukocytes in Blood by Manual count 78 % 37 - 80 [facility] BAND 1 % 0 - 5 [facility] %LYMPH 8 % 25 - 40 L [facility] %MONO 11 % 3 - 8 H [facility] %EOS 2 % 0 - 7 [facility] RBC MORPH [facility]OW [facility] Anisocytosis [Presence] in Blood by Light microscopy 1+ FARRUKH L: NONE SEEN A [facility] Macrocytes [Presence] in Blood by Light microscopy 1+ NORMAL: NONE SEEN A [facility] Poikilocytosis [Presence] in Blood by Light microscopy 1+ NOR MAL: NONE SEEN A [facility] [place] HYPO 1+ NORMAL: NONE SEEN A [facility] { SICKLE CELL (NORMAL: NONE SEEN ) Platelet adequacy [Presence] in Blood by Light microscopy NORMAL NORMAL: NORMAL [facility] COMMENT: ID Date Data Source [id number] 06/06/2020 07:09:[address] [facility] Name Value Range Interpretation Code Description Data Ro rce(s) Supporting Document(s) COMPREHENSIVE METABOLIC PANEL [facility] COMPREHENSIVE METABOLIC PANEL Sodium [Moles/volume] in Serum or Plasma 145 mEq/L 134 - 153 [facility] Potassium [Moles/volume] in Serum or Plasma 4.7 mEq/L 3.6 - 5.0 [facility] Chloride [Moles/volume] in Serum or Plasma 99 mEq/L 98 - 107 [facility] Carbon dioxide, total [Moles/volume] in Serum or Plasma 39 MEQ/L 22 - [address] [facility] Glucose [Mass/volume] in Serum or Plasma 102 MG/DL 65 - 110 [facility] BUN 47 MG/DL 7 - [address] [facility] Creatinine [Mass/volume] in Serum or Plasma 2.2 MG/DL 0.7 - 1.[address] [facility] BUN/CREAT 21 8 - 27 [facility] Protein [Mass/volume] in Serum or Plasma 5.6 G/DL 6.3 - 8.[address] [facility] Albumin [Mass/volume] in Serum or Plasma 3.5 G/DL 3.9 - 5.[address] [facility] Globulin [Mass/volume] in Serum by calculation 2.1 GM/DL 2.4 - 3.[address] [facility] A/G RATIO 1.7 0.8 - 2.0 [facility] Calcium [Mass/volume] in Serum or Plasma 8.6 MG/DL 8.4 - 10.2 [facility] Bilirubin.total [Mass/volume] in Serum or Plasma <0.7 MG/DL 0.2 - 1.3 [facility] Alkaline phosphatase [Enzymatic activity/volume] in Serum or Plasma 62 U/L 38 - 126 [facility] Aspartate aminotransferase [Enzymatic activity/volume] in Se rum or Plasma 9 U/L 5 - 40 [facility] Alanine aminotransferase [Enzymatic activity/volume] in Seru m or Plasma 15 U/L 7 - 56 [facility] Anion gap 3 in Serum or Plasma 7.0 mmol/L 8.0 - 16.[address] [facility] AGE 75 yrs [facility] NON-AA GFR 23 mL/min [facility] AFR AMER GFR >60 [facility] Male GFR In [...] >32 mL/min Normal ID Date Data Source [id number] 06/06/2020 07:09:[address] [facility] Name Value Range Interpretation Code Description Data Ro rce(s) Supporting Document(s) BNP 4177 PG/ML 0 - 125 [facility] ID Date Data Source [id number] 06/05/2020 09:09:00 [place] [address] RESPIRATORY CARE REPORT ==== ---------NAME------- NUMBER SEX AGE ADMIT DISC. XRAY# F/C EDWIN DONALD Whitley [id number] F 75 05/28/20 [id number] ME8 I/P DATE OF : 1945 M/R# [id number] PH#: [phone] 119-1 LOCATION: EKG 40588 COMPLETE:06/05/20 1 0:50 94565 PHYSICIAN: REY PAUL Name Value Range Interpretation Code Description Data Ro rce(s) Supporting Document(s) ID Date Data Source [id number] 06/03/2020 01:19:00 [place] [address] PROGRESS NOTENAME: TR Whitley ROOM#: 119-1DATE OF : 1945 MR#: [id number] DATE: 05/28/20 OF SERVICE: 06/02/20UBJECTIVE: This patient's [...] rce(s) Supporting Document(s) ID Date Data Source [id number] 06/01/2020 05:34:00 [place] [address] PROGRESS NOTENAME: TR Whitley ROOM#: 119-1DATE OF : 1945 MR#: [id number] DATE: 05/28/20 OF SERVICE: 06/01/20UBJECTIVE: This patient's [...] rce(s) Supporting Document(s) ID Date Data Source [id number] 05/29/2020 02:01:00 [place] [address] PROGRESS NOTENAME: TR Whitley ROOM#: 119-1DATE OF : 1945 MR#: [id number] DATE: 05/28/20 OF SERVICE: 05/29/2020SUBJECTIVE:Donald Armando has [...] rce(s) Supporting Document(s) ID Date Data Source [id number] 05/29/2020 11:32:00 [place] [address] HISTORY AND PHYSICALNAME: TR Whitley ROOM#: 119-1DATE OF : 1945 MR#: [id number] PHYS: Silver Peterson MD, DATE: 05/28/20HISTORY OF [...] for tricuspid regurgitation.She had surgery done in [facility] several months ago. On exam, blood [...] IV fluid.COURSE DURING HOSPITALIZATION:Patient was put on cell stripper, 2 L of oxygen per minute nasal [...] heart failure, systolic ejection fraction 40-50% 1 [place] [address] HISTORY AND PHYSICALNAME: TR Whitley ROOM#: [id number] OF : 1945 MR#: [id number] PHYS: Silver Peterson MD, PC DATE: 05/28/20 [...] rce(s) Supporting Document(s) ID Date Data Source [id number] [facility] Value Range Interpretation Code Description Data Ro rce(s) Supporting Document(s) Cobalamin (Vitamin B12) [Mass/volume] in Serum or Plasma 653 PG/ML 232 - 1245 [facility] ID Date Data Source [id number] [facility] Name Value Range Interpretation Code Description Data Ro rce(s) Supporting Document(s) Iron [Mass/volume] in Serum or Plasma 54 UG/DL 42 - 135 [facility] ID Date Data Source [id number] [facility]/05[facility] Name Value Range Interpretation Code Description Data Ro rce(s) Supporting Document(s) CBC W/AUTOMATED DIFF [facility] CORRECTE D REPORT COMPLETE BLOOD COUNT Leukocytes [#/volume] in Blood by Automated count 8.8 10^3/uL 4.2 - [address] [facility] Erythrocytes [#/volume] in Blood by Automated count 2.88 10^6/uL 4. 20 - 5.[address] [facility] Hemoglobin [Mass/volume] in Blood 8.6 g/dL 12.0 - 16.[address] [facility] Hematocrit [Volume Fraction] of Blood by Automated count 30.4 % 3 7.0 - 47.[address] [facility] Erythrocyte mean corpuscular volume [Entitic volume] b y Automated count 105.6 fL 81.0 - [address] [facility] Erythrocyte mean corpuscular hemoglobin [Entitic mass] by Automated count 29.9 pg 27.0 - 34.0 [facility] Erythrocyte mean corpuscular hemoglobin concentration [Mass/volume] by Automated count 28.3 g/dL 31.0 - 36.[address] [facility] Erythrocyte distribution width [Ratio] by Automated count 17.5 % 11.5 - 14.[address] [facility] Platelets [#/volume] in Blood by Automated count 171 10^3/uL 150 - [address] [facility] Platelet mean volume [Entitic volume] in Blood by Automated count 10.0 fL 7.4 - 10.4 [facility] Neutrophils/100 leukocytes in Blood by Automated count 69.8 % 37. 0 - 80.0 [facility] Lymphocytes/100 leukocytes in Blood by Manual count 11.8 % 25.0 - 40.[address] [facility] Monocytes/100 leukocytes in Blood by Automated count 14.5 % 3.0 - 8.[address] [facility] Eosinophils/100 leukocytes in Blood by Automated count 2.5 % 0.0 - 7.0 [facility] 0.2 Basophils/100 leukocytes in Blood by Automated count 0.2 % 0.0 - 2.5 [facility] %IG 1.2 % 0.0 - [facility] 0.0 % 0.0 - 0.0 [facility] Neutrophils [#/volume] in Blood by Automated count 6.15 10^3/uL 2.00 - 6.90 [facility] Lymphocytes [#/volume] in Blood by Automated count 1.04 10^3/uL 0.60 - 3.40 [facility] Monocytes [#/volume] in Blood by Automated count 1.28 10^3/uL 0.00 - 0.90 H [facility] Eosinophils [#/volume] in Blood by Automated count 0.22 10^3/uL 0.00 - 0.70 [facility] Basophils [#/volume] in Blood by Automated count 0.02 10^3/uL 0.00 - 0.20 [facility] #IG 0.11 10^3/uL 0.00 - 0.10 H [facility] #NRBC 0.00 10^3/uL 0.00 - 0.00 [facility] MANUAL DIFF SEE BELOW [facility] ital Segmented neutrophils/100 leukocytes in Blood by Manual count 75 % 37 - 80 [facility] BAND 0 % 0 - 5 [facility] %LYMPH 17 % 25 - 40 L [facility] %MONO 7 % 3 - 8 [facility] %EOS 1 % 0 - 7 [facility] 0 RBC MORPH SEE BELOW [facility] { SICKLE CELL (NORMAL: NONE SEEN ) COMMENT: _NO_PLATELET_CLUMPING 06/05/20.OR . . . ____ Anisocytosis [Presence] in Blood by Light microscopy 1+ FARRUKH L: NONE SEEN A [facility] Poikilocytosis [Presence] in Blood by Light microscopy 1+ NOR MAL: NONE SEEN A [facility] HYPO 1+ NORMAL: NONE SEEN A [facility] { SICKLE CELL (NORMAL: NONE SEEN ) COMMENT: _NO_PLATELET_CLUMPING 06/05/20.OR . . . ____ ======== FOLLOWING RESULTS REPORTED IN ERROR MANUAL DIFF { CORRECT DIFF ADDED ID Date Data Source [id number] 06/05/2020 06:48:[address] [facility] Name Value Range Interpretation Code Description Data Ro rce(s) Supporting Document(s) COMPREHENSIVE METABOLIC PANEL [facility] COMPREHENSIVE METABOLIC PANEL Sodium [Moles/volume] in Serum or Plasma 142 mEq/L 134 - 153 [facility] Potassium [Moles/volume] in Serum or Plasma 4.7 mEq/L 3.6 - 5.0 [facility] Chloride [Moles/volume] in Serum or Plasma 99 mEq/L 98 - 107 [facility] Carbon dioxide, total [Moles/volume] in Serum or Plasma 40 MEQ/L 22 - [address] [facility] Glucose [Mass/volume] in Serum or Plasma 107 MG/DL 65 - 110 [facility] BUN 44 MG/DL 7 - [address] [facility] Creatinine [Mass/volume] in Serum or Plasma 2.0 MG/DL 0.7 - 1.[address] [facility] BUN/CREAT 22 8 - 27 [facility] Protein [Mass/volume] in Serum or Plasma 5.1 G/DL 6.3 - 8.[address] [facility] Albumin [Mass/volume] in Serum or Plasma 3.1 G/DL 3.9 - 5.[address] [facility] Globulin [Mass/volume] in Serum by calculation 2.0 GM/DL 2.4 - 3.[address] [facility] A/G RATIO 1.6 0.8 - 2.0 [facility] Calcium [Mass/volume] in Serum or Plasma 8.3 MG/DL 8.4 - 10.[address] [facility] Bilirubin.total [Mass/volume] in Serum or Plasma <0.7 MG/DL 0.2 - 1.3 [facility] Alkaline phosphatase [Enzymatic activity/volume] in Serum or Plasma 54 U/L 38 - 126 [facility] Aspartate aminotransferase [Enzymatic activity/volume] in Se rum or Plasma 8 U/L 5 - 40 [facility] Alanine aminotransferase [Enzymatic activity/volume] in Seru m or Plasma 15 U/L 7 - 56 [facility] Anion gap 3 in Serum or Plasma 3.0 mmol/L 8.0 - 16.[address] [facility]GE 75 [facility] AFR AMER GFR >60 [facility] Male GFR In [...] >32 mL/min Normal ID Date Data Source [id number] 06/05/2020 06:48:[address] [facility] Name Value Range Interpretation Code Description Data Ro rce(s) Supporting Document(s) BNP 3862 PG/ML 0 - 125 H [facility] ID Date Data Source [id number] 06/04/2020 03:24:[address] [facility] Name Value Range Interpretation Code Description Data Ro rce(s) Supporting Document(s) COMPREHENSIVE METABOLIC PANEL [facility] COMPREHENSIVE METABOLIC PANEL Sodium [Moles/volume] in Serum or Plasma 143 mEq/L 134 - 153 [facility] Potassium [Moles/volume] in Serum or Plasma 4.8 mEq/L 3.6 - 5.0 [facility] Chloride [Moles/volume] in Serum or Plasma 98 mEq/L 98 - 107 [facility] Carbon dioxide, total [Moles/volume] in Serum or Plasma 38 MEQ/L 22 - [address] [facility] Glucose [Mass/volume] in Serum or Plasma 180 MG/DL 65 - [address] [facility] BUN 43 MG/DL 7 - 21 [facility] Creatinine [Mass/volume] in Serum or Plasma 2.0 MG/DL 0.7 - 1.[address] [facility] BUN/CREAT 22 8 - 27 [facility] Protein [Mass/volume] in Serum or Plasma 4.9 G/DL 6.3 - 8.[address] [facility] Albumin [Mass/volume] in Serum or Plasma 3.3 G/DL 3.9 - 5.[address] [facility] Globulin [Mass/volume] in Serum by calculation 1.6 GM/DL 2.4 - 3.[address] [facility] A/G RATIO 2.1 0.8 - 2.0 H [facility] Calcium [Mass/volume] in Serum or Plasma 8.7 MG/DL 8.4 - 10.2 [facility] Bilirubin.total [Mass/volume] in Serum or Plasma <0.7 MG/DL 0.2 - 1.3 [facility] Alkaline phosphatase [Enzymatic activity/volume] in Serum or Plasma 57 U/L 38 - 126 [facility] Aspartate aminotransferase [Enzymatic activity/volume] in Se rum or Plasma 9 U/L 5 - 40 [facility] Alanine aminotransferase [Enzymatic activity/volume] in Seru m or Plasma 19 U/L 7 - 56 [facility] Anion gap 3 in Serum or Plasma 7.0 mmol/L 8.0 - 16.[address] [facility] AGE 75 yrs [facility] NON-AA GFR 26 mL/min [facility] booker AFR AMER GFR >60 [facility] Male GFR In [...] >32 mL/min Normal ID Date Data Source [id number] 06/04/2020 03:23:[address] [facility] Name Value Range Interpretation Code Description Data Ro rce(s) Supporting Document(s) BNP 3971 PG/ML 0 - 125 [facility] ID Date Data Source [id number] 06/08/2020 03:30:[address] [facility] Name Value Range Interpretation Code Description Data Ro rce(s) Supporting Document(s) CULTURE SPUTUM [facility]spital _CULTURE SPUTUM_$$[id number]$$[id number]$$[id number]$$[id number]$$[id number]$$[id number]$$[id number]$$[id number]$$[id number]$ $[id number]$$[id number]$$[id number]$$[id number] DATE/TIME: 06/08/2020 15:06Culture: CULTURE SPUTUM Status: FinalWhite Blood Cells: [id number] Cells: I6ZaqXciotk 1: P1Many gram positive rods. -- Continued on next page --Patient: TR Whitley Order: [id number] Page 2Culture: CULTURE SPUTUM Status: Final ====Result [...] of possible pathogensis in progress.Lower Respiratory Culture: [id number] Test performed by: [facility] #: [id number] [address] [place] [id number] [facility] [id number] Director : Shreyas Fontana MD NPI #:[employer] Associate : 06/07/20.0612.XMT.SENT REF 06/07/20.1503.XMT.SENT REF 06/08/20.1530.XMT.SENT REF 06/08/20.1530.DW .to [facility] via modem ID Date Data Source [id number] 06/03/2020 07:38:[address] [facility] Name Value Range Interpretation Code Description Data Ro rce(s) Supporting Document(s) DORIAN TEST POSITIVE A [facility] FiO2 3 LPM [facility] SITE RADIAL RT [facility] pH of Arterial blood 7.40 7.34 - 7.44 [facility] Carbon dioxide [Partial pressure] in Blood 67.1 mm/HG 32.0 - 42.0 H [facility] Oxygen [Partial pressure] in Blood 78.0 mm/HG 75.0 - 100 [facility] Bicarbonate [Moles/volume] in Blood 40.9 meq/L 20.0 - 24.[address] [facility] TCO2 42.9 meq/L 21.0 - 25.0 H [facility] pital Base excess in Blood by calculation 14.2 -2.0 - 2.[address] [facility] O2 SAT 95.9 % 95.0 - 98.0 [facility] ID Date Data Source [id number] 06/03/2020 07:45:[address] [facility] Name Value Range Interpretation Code Description Data Ro rce(s) Supporting Document(s) CBC W/AUTOMATED DIFF [facility] COMPLETE BLOOD COUNT Leukocytes [#/volume] in Blood by Automated count 9.0 10^3/uL 4.2 - [address] [facility] Erythrocytes [#/volume] in Blood by Automated count 2.90 10^6/uL 4. 20 - 5.[address] [facility] Hemoglobin [Mass/volume] in Blood 8.7 g/dL 12.0 - 16.[address] [facility] Hematocrit [Volume Fraction] of Blood by Automated count 30.2 % 3 7.0 - 47.[address] [facility] Erythrocyte mean corpuscular volume [Entitic volume] b y Automated count 104.1 fL 81.0 - [address] [facility] Erythrocyte mean corpuscular hemoglobin [Entitic mass] by Automated count 30.0 pg 27.0 - 34.0 [facility] Erythrocyte mean corpuscular hemoglobin concentration [Mass/volume] by Automated count 28.8 g/dL 31.0 - 36.[address] [facility] Erythrocyte distribution width [Ratio] by Automated count 17.3 % 11.5 - 14.[address] [facility] Platelets [#/volume] in Blood by Automated count 193 10^3/uL 150 - [address] [facility] Platelet mean volume [Entitic volume] in Blood by Automated count 10.2 fL 7.4 - 10.4 [facility] Neutrophils/100 leukocytes in Blood by Automated count 65.6 % 37. 0 - 80.0 [facility] Lymphocytes/100 leukocytes in Blood by Manual count 16.5 % 25.0 - 40.[address] [facility] Monocytes/100 leukocytes in Blood by Automated count 13.5 % 3.0 - 8.[address] [facility] Eosinophils/100 leukocytes in Blood by Automated count 2.2 % 0.0 - 7.0 [facility] Basophils/100 leukocytes in Blood by Automated count 0.1 % 0.0 - 2.5 [facility] %IG 2.1 % 0.0 - 0.0 H [facility] %NRBC 0.0 % 0.0 - 0.0 [facility] Neutrophils [#/volume] in Blood by Automated count 5.91 10^3/uL 2.00 - 6.90 [facility] Lymphocytes [#/volume] in Blood by Automated count 1.49 10^3/uL 0.60 - 3.40 [facility] Monocytes [#/volume] in Blood by Automated count 1.22 10^3/uL 0.00 - 0.[address] [facility] Eosinophils [#/volume] in Blood by Automated count 0.20 10^3/uL 0.00 - 0.70 [facility] Basophils [#/volume] in Blood by Automated count 0.01 10^3/uL 0.00 - 0.20 [facility] #IG 0.19 10^3/uL 0.00 - 0.10 H [facility] #NRBC 0.00 10^3/uL 0.00 - 0.00 [facility] MANUAL DIFF SEE BELOW [facility] ital Segmented neutrophils/100 leukocytes in Blood by Manual count 70 % 37 - 80 [facility] %LYMPH 17 % 25 - 40 L [facility] al %MONO 11 % 3 - 8 H [facility] %EOS 2 % 0 - 7 [facility] RBC MORPH SEE BELOW [facility] Anisocytosis [Presence] in Blood by Light microscopy 1+ FARRUKH L: NONE SEEN A [facility] Macrocytes [Presence] in Blood by Light microscopy 1+ NORMAL: NONE SEEN A [facility] Poikilocytosis [Presence] in Blood by Light microscopy 1+ NOR MAL: NONE SEEN A [facility] HYPO 1+ NORMAL: NONE SEEN A [facility] { SICKLE CELL (NORMAL: NONE SEEN ) Platelet adequacy [Presence] in Blood by Light microscopy NORMAL NORMAL: NORMAL [facility] COMMENT: ID Date Data Source [id number] 06/03/2020 07:39:[address] [facility] Name Value Range Interpretation Code Description Data Ro rce(s) Supporting Document(s) COMPREHENSIVE METABOLIC PANEL [facility] COMPREHENSIVE METABOLIC PANEL Sodium [Moles/volume] in Serum or Plasma 147 mEq/L 134 - 153 [facility] Potassium [Moles/volume] in Serum or Plasma 4.1 mEq/L 3.6 - 5.0 [facility] Chloride [Moles/volume] in Serum or Plasma 99 mEq/L 98 - 107 [facility] Carbon dioxide, total [Moles/volume] in Serum or Plasma 43 MEQ/L 22 - [address] [facility] CALL/ READ BACK DARIAN [facility] BY: CM [facility] DATE/TIME 06/03/20 0740 [facility] Glucose [Mass/volume] in Serum or Plasma 107 MG/DL 65 - 110 [facility] BUN 46 MG/DL 7 - 21 H [facility] Creatinine [Mass/volume] in Serum or Plasma 2.1 MG/DL 0.7 - 1.[address] [facility] BUN/CREAT 22 8 - 27 [facility] Protein [Mass/volume] in Serum or Plasma 5.0 G/DL 6.3 - 8.[address] [facility] Albumin [Mass/volume] in Serum or Plasma 3.1 G/DL 3.9 - 5.[address] [facility] Globulin [Mass/volume] in Serum by calculation 1.9 GM/DL 2.4 - 3.[address] [facility] A/G RATIO 1.6 0.8 - 2.0 [facility] Calcium [Mass/volume] in Serum or Plasma 8.5 MG/DL 8.4 - 10.2 [facility] Bilirubin.total [Mass/volume] in Serum or Plasma <0.7 MG/DL 0.2 - 1.3 [facility] Alkaline phosphatase [Enzymatic activity/volume] in Serum or Plasma 50 U/L 38 - 126 [facility] Aspartate aminotransferase [Enzymatic activity/volume] in Se rum or Plasma 9 U/L 5 - 40 [facility] Alanine aminotransferase [Enzymatic activity/volume] in Seru m or Plasma 22 U/L 7 - 56 [facility] Anion gap 3 in Serum or Plasma 5.0 mmol/L 8.0 - 16.[address] [facility] AGE 75 yrs [facility] NON-AA GFR 25 mL/min [facility] AFR AMER GFR >60 [facility] Male GFR In [...] >32 mL/min Normal ID Date Data Source [id number] 06/03/2020 07:10:[address] [facility] Name Value Range Interpretation Code Description Data Ro rce(s) Supporting Document(s) BNP 41284 PG/ML 0 - 125 H [facility] ID Date Data Source [id number] 06/03/2020 07:03:00 AM EDT [facility] Name Value Range Interpretation Code Description Data Ro rce(s) Supporting Document(s) Magnesium [Mass/volume] in Serum or Plasma 1.9 MG/DL 1.7 - 2.2 [facility] ID Date Data Source [id number] 06/02/2020 08:59:00 AM EDT [facility] [address] [place] [address] PHONE: [phone] FAX: [phone] Name .................. : TR Whitley Acct Number.................. : [id number] ROOM. ................. : 119-1 MR Number ................... : [id number] Stay type ............. : I/P Discharge Date......... ... : Admit Date ......... : 05/28/20 Admit Phys .................... : REY BEVERLY Date of ....... : 1945 Family Phys ................... : LISETTEHELENA Phone .................. : [phone] Age ................................ : 75 Film# .................. .:[id number] Sex ................................. : F Unsigned transcriptions are preliminary reports and do not represent a medical or legal document CHEST 2 VIEWS [id number] COMPLETE:06/02/20 06:08 RLB [id number] (REASON FOR CHEST: CHF P A & [...] 06/02/20 07:48, Dictation Date: Copy for: 002 [facility] Copy for: 710 [facility] REC Page 1 of 1 Name Value Range Interpretation Code Description Data Ro rce(s) Supporting Document(s) ID Date Data Source [id number] 06/02/2020 08:56:00 AM EDT [facility] [address] [place] [address] PHONE: [phone] FAX: [phone] Name .................. : TR Whitley Acct Number.................. : [id number] ROOM. ................. : 119-1 MR Number ................... : [id number] Stay type ............. : I/P Discharge Date......... ... : Admit Date ......... : 05/28/20 Admit Phys .................... : REY PAUL Date of ....... : 1945 Family Phys ................... : CASPER Phone .................. : [phone] Age ................................ : 75 Film# .................. .:[id number] Sex ................................. : F Unsigned transcriptions are preliminary reports and do not represent a medical or legal document CHEST 2 VIEWS [id number] COMPLETE:06/01/20 12:02 SAIMA [id number] (REASON FOR CHEST: CHF CHEST PA AND [...] lobe. Electronically Reviewed and Signed By RASHAD LIRA MD , 06/02/20 08:56, [facility] Transcribe Initials: SSR, Transcribe Date: 06/01/20 13:16, Dictation Date: Copy for: 002 [facility] Copy for: 710 [facility] REC Page 1 of 1 Name Value Range Interpretation Code Description Data Ro rce(s) Supporting Document(s) ID Date Data Source [id number] 06/02/2020 06:57:[address] [facility] Name Value Range Interpretation Code Description Data Ro rce(s) Supporting Document(s) DORIAN TEST NOT GIVEN [facility] FiO2 3L [facility] SITE BRACHIAL LT [facility] pH of Arterial blood 7.39 7.34 - 7.44 [facility] Carbon dioxide [Partial pressure] in Blood 68.2 mm/HG 32.0 - 42.[address] [facility] Oxygen [Partial pressure] in Blood 80.8 mm/HG 75.0 - 100 [facility] Bicarbonate [Moles/volume] in Blood 40.1 meq/L 20.0 - 24.[address] [facility] TCO2 42.2 meq/L 21.0 - 25.0 H [facility] pital Base excess in Blood by calculation 13.2 -2.0 - 2.[address] [facility] O2 SAT 96.1 % 95.0 - 98.0 [facility] ital ID Date Data Source [id number] 06/02/2020 07:24:[address] [facility] Name Value Range Interpretation Code Description Data Ro rce(s) Supporting Document(s) CBC W/AUTOMATED DIFF [facility] COMPLETE BLOOD COUNT Leukocytes [#/volume] in Blood by Automated count 6.4 10^3/uL 4.2 - [address] [facility] Erythrocytes [#/volume] in Blood by Automated count 2.99 10^6/uL 4. 20 - 5.[address] [facility] Hemoglobin [Mass/volume] in Blood 8.9 g/dL 12.0 - 16.[address] [facility] Hematocrit [Volume Fraction] of Blood by Automated count 30.9 % 3 7.0 - 47.[address] [facility] Erythrocyte mean corpuscular volume [Entitic volume] b y Automated count 103.3 fL 81.0 - [address] [facility] Erythrocyte mean corpuscular hemoglobin [Entitic mass] by Automated count 29.8 pg 27.0 - 34.0 [facility] Erythrocyte mean corpuscular hemoglobin concentration [Mass/volume] by Automated count 28.8 g/dL 31.0 - 36.[address] [facility] Erythrocyte distribution width [Ratio] by Automated count 16.7 % 11.5 - 14.[address] [facility] Platelets [#/volume] in Blood by Automated count 211 10^3/uL 150 - [address] [facility] Platelet mean volume [Entitic volume] in Blood by Automated count 10.3 fL 7.4 - 10.4 [facility] Neutrophils/100 leukocytes in Blood by Automated count 86.1 % 37. 0 - 80.0 H [facility] Lymphocytes/100 leukocytes in Blood by Manual count 5.9 % 25.0 - 40.0 L [facility] Monocytes/100 leukocytes in Blood by Automated count 1.6 % 3.0 - 8.[address] [facility] Eosinophils/100 leukocytes in Blood by Automated count 0.0 % 0.0 - 7.0 [facility] Basophils/100 leukocytes in Blood by Automated count 0.3 % 0.0 - 2.5 [facility] %IG 6.1 % 0.0 - 0.0 H [facility] %NRBC 0.3 % 0.0 - 0.0 H [facility] Neutrophils [#/volume] in Blood by Automated count 5.50 10^3/uL 2.00 - 6.90 [facility] Lymphocytes [#/volume] in Blood by Automated count 0.38 10^3/uL 0.60 - 3.[address] [facility] Monocytes [#/volume] in Blood by Automated count 0.10 10^3/uL 0.00 - 0.90 [facility] Eosinophils [#/volume] in Blood by Automated count 0.00 10^3/uL 0.00 - 0.70 [facility] Basophils [#/volume] in Blood by Automated count 0.02 10^3/uL 0.00 - 0.20 [facility] #IG 0.39 10^3/uL 0.00 - 0.10 H [facility] #NRBC 0.02 10^3/uL 0.00 - 0.00 H [facility] MANUAL DIFF SEE BELOW [facility] Segmented neutrophils/100 leukocytes in Blood by Manual count 91 % 37 - 80 H [facility] BAND 1 % 0 - 5 [facility] %LYMPH 3 % 25 - 40 L [facility] %MONO 2 % 3 - 8 L [facility] Metamyelocytes/100 leukocytes in Blood by Manual count 1 % [facility] Myelocytes/100 leukocytes in Blood by Manual count 2 % [facility] RBC MORPH SEE BELOW [facility] Anisocytosis [Presence] in Blood by Light microscopy 1+ FARRUKH L: NONE SEEN A [facility] Macrocytes [Presence] in Blood by Light microscopy 1+ NORMAL: NONE SEEN A [facility] Poikilocytosis [Presence] in Blood by Light microscopy 1+ NOR MAL: NONE SEEN A [facility] HYPO 1+ NORMAL: NONE SEEN A [facility] { SICKLE CELL (NORMAL: NONE SEEN ) Platelet adequacy [Presence] in Blood by Light microscopy NORMAL NORMAL: NORMAL [facility] COMMENT: ID Date Data Source [id number] 06/02/2020 07:01:[address] [facility] Name Value Range Interpretation Code Description Data Ro rce(s) Supporting Document(s) Magnesium [Mass/volume] in Serum or Plasma 1.9 MG/DL 1.7 - 2.2 [facility] ID Date Data Source [id number] 06/02/2020 07:00:[address] [facility] Name Value Range Interpretation Code Description Data Ro rce(s) Supporting Document(s) COMPREHENSIVE METABOLIC PANEL [facility] COMPREHENSIVE METABOLIC PANEL Sodium [Moles/volume] in Serum or Plasma 145 mEq/L 134 - 153 [facility] Potassium [Moles/volume] in Serum or Plasma 4.7 mEq/L 3.6 - 5.0 [facility] Chloride [Moles/volume] in Serum or Plasma 100 mEq/L 98 - 107 [facility] Carbon dioxide, total [Moles/volume] in Serum or Plasma 40 MEQ/L 22 - [address] [facility] Glucose [Mass/volume] in Serum or Plasma 170 MG/DL 65 - [address] [facility] BUN 38 MG/DL 7 - 21 H [facility] Creatinine [Mass/volume] in Serum or Plasma 1.8 MG/DL 0.7 - 1.[address] [facility] BUN/CREAT 21 8 - 27 [facility] Protein [Mass/volume] in Serum or Plasma 5.2 G/DL 6.3 - 8.[address] [facility] Albumin [Mass/volume] in Serum or Plasma 3.2 G/DL 3.9 - 5.[address] [facility] Globulin [Mass/volume] in Serum by calculation 2.0 GM/DL 2.4 - 3.[address] [facility] A/G RATIO 1.6 0.8 - 2.0 [facility] Calcium [Mass/volume] in Serum or Plasma 8.4 MG/DL 8.4 - 10.2 [facility] Bilirubin.total [Mass/volume] in Serum or Plasma <0.7 MG/DL 0.2 - 1.3 [facility] Alkaline phosphatase [Enzymatic activity/volume] in Serum or Plasma 55 U/L 38 - 126 [facility] Aspartate aminotransferase [Enzymatic activity/volume] in Serum or Plasma 12 U/L 5 - 40 [facility] Alanine aminotransferase [Enzymatic activity/volume] in Seru m or Plasma 31 U/L 7 - 56 [facility] Anion gap 3 in Serum or Plasma 5.0 mmol/L 8.0 - 16.[address] [facility] 75 [facility] A[facility] AMER GFR >60 [facility] Male GFR In [...] >32 mL/min Normal ID Date Data Source [id number] 06/01/2020 07:46:00 PM EDT [facility] [address] [place] [address] RESPIRATORY CARE REPORT ==== ---------NAME------- NUMBER SEX AGE ADMIT DISC. XRAY# F/C [id number] DONALD Whitley [id number] F 75 05/28/20 [id number] ME8 I/P DATE OF : 1945 M/R# [id number] #: [id number] 119-1 LOCATION: EKG 38415 COMPLETE:06/01/20 1 1:16 [place] [id number] PHYSICIAN: REY PAUL Name Value Range Interpretation Code Description Data Ro rce(s) Supporting Document(s) ID Date Data Source [id number] 06/01/2020 09:56:[address] [facility] Name Value Range Interpretation Code Description Data Ro rce(s) Supporting Document(s) DORIAN TEST NOT GIVEN [facility] FiO2 3 L[facility] SITE BRACHIAL LT [facility] pH of Arterial blood 7.33 7.34 - 7.44 L [facility] Carbon dioxide [Partial pressure] in Blood 79.5 mm/HG 32.0 - 42.0 [facility] CALL/ READ BACK TIMUR PATEL [address] [facility] BY: ASHOK [facility] DATE/TIME [id number] [facility] Oxygen [Partial pressure] in Blood 87.1 mm/HG 75.0 - 100 [facility] Bicarbonate [Moles/volume] in Blood 40.9 meq/L 20.0 - 24.[address] [facility] TCO2 43.3 meq/L 21.0 - 25.0 H [facility] pital Base excess in Blood by calculation 12.0 -2.0 - 2.[address] [facility] O2 SAT 96.2 % 95.0 - 98.0 [facility] ital ID Date Data Source [id number] 06/01/2020 07:22:[address] [facility] Name Value Range Interpretation Code Description Data Ro rce(s) Supporting Document(s) CBC W/AUTOMATED DIFF [facility] COMPLETE BLOOD COUNT Leukocytes [#/volume] in Blood by Automated count 8.4 10^3/uL 4.2 - [address] [facility] Erythrocytes [#/volume] in Blood by Automated count 2.84 10^6/uL 4. 20 - 5.[address] [facility] Hemoglobin [Mass/volume] in Blood 8.6 g/dL 12.0 - 16.[address] [facility] Hematocrit [Volume Fraction] of Blood by Automated count 30.1 % 3 7.0 - 47.[address] [facility] Erythrocyte mean corpuscular volume [Entitic volume] b y Automated count 106.0 fL 81.0 - [address] [facility] Erythrocyte mean corpuscular hemoglobin [Entitic mass] by Automated count 30.3 pg 27.0 - 34.0 [facility] Erythrocyte mean corpuscular hemoglobin concentration [Mass/volume] by Automated count 28.6 g/dL 31.0 - 36.[address] [facility] Erythrocyte distribution width [Ratio] by Automated count 16.7 % 11.5 - 14.[address] [facility] Platelets [#/volume] in Blood by Automated count 216 10^3/uL 150 - [address] [facility] Platelet mean volume [Entitic volume] in Blood by Automated count 10.0 fL 7.4 - 10.4 [facility] Neutrophils/100 leukocytes in Blood by Automated count 55.8 % 37. 0 - 80.0 [facility] Lymphocytes/100 leukocytes in Blood by Manual count 16.7 % 25.0 - 40.[address] [facility] Monocytes/100 leukocytes in Blood by Automated count 14.1 % 3.0 - 8.[address] [facility] Eosinophils/100 leukocytes in Blood by Automated count 6.7 % 0.0 - 7.0 [facility] Basophils/100 leukocytes in Blood by Automated count 0.4 % 0.0 - 2.5 [facility] %IG 6.3 % 0.0 - 0.0 H [facility] %NRBC 0.2 % 0.0 - 0.0 H [facility] Neutrophils [#/volume] in Blood by Automated count 4.68 10^3/uL 2.00 - 6.90 [facility] Lymphocytes [#/volume] in Blood by Automated count 1.40 10^3/uL 0.60 - 3.40 [facility] Monocytes [#/volume] in Blood by Automated count 1.18 10^3/uL 0.00 - 0.[address] [facility] Eosinophils [#/volume] in Blood by Automated count 0.56 10^3/uL 0.00 - 0.70 [facility] Basophils [#/volume] in Blood by Automated count 0.03 10^3/uL 0.00 - 0.20 [facility] #IG 0.53 10^3/uL 0.00 - 0.10 H [facility] #NRBC 0.02 10^3/uL 0.00 - 0.00 H [facility] MANUAL DIFF SEE BELOW [facility] ital Segmented neutrophils/100 leukocytes in Blood by Manual count 56 % 37 - 80 [facility] %LYMPH 21 % 25 - 40 L [facility] %MONO 9 % 3 - 8 [facility] %EOS 7 % 0 - 7 [facility] Metamyelocytes/100 leukocytes in Blood by Manual count 5 % [facility] Myelocytes/100 leukocytes in Blood by Manual count 2 % [facility] RBC MORPH SEE BELOW [facility] Anisocytosis [Presence] in Blood by Light microscopy 1+ FARRUKH L: NONE SEEN A [facility] Macrocytes [Presence] in Blood by Light microscopy 1+ NORMAL: NONE SEEN A [facility] Poikilocytosis [Presence] in Blood by Light microscopy 1+ NOR MAL: NONE SEEN A [facility] HYPO 1+ NORMAL: NONE SEEN A [facility] { SICKLE CELL (NORMAL: NONE SEEN ) Platelet adequacy [Presence] in Blood by Light microscopy NORMAL NORMAL: NORMAL [facility] COMMENT: ID Date Data Source [id number] 06/01/2020 07:29:[address] [facility] Name Value Range Interpretation Code Description Data Ro rce(s) Supporting Document(s) COMPREHENSIVE METABOLIC PANEL [facility] COMPREHENSIVE METABOLIC PANEL Sodium [Moles/volume] in Serum or Plasma 145 mEq/L 134 - 153 [facility] Potassium [Moles/volume] in Serum or Plasma 4.8 mEq/L 3.6 - 5.0 [facility] Chloride [Moles/volume] in Serum or Plasma 99 mEq/L 98 - 107 [facility] Carbon dioxide, total [Moles/volume] in Serum or Plasma 42 MEQ/L 22 - [address] [facility] CALL/ READ BACK PAT ON [facility] BY: CM [facility] DATE/TIME 06/01/20 0730 [facility] Glucose [Mass/volume] in Serum or Plasma 95 MG/DL 65 - 110 [facility] BUN 44 MG/DL 7 - [address] [facility] Creatinine [Mass/volume] in Serum or Plasma 1.9 MG/DL 0.7 - 1.[address] [facility] BUN/CREAT 23 8 - 27 [facility] Protein [Mass/volume] in Serum or Plasma 4.9 G/DL 6.3 - 8.[address] [facility] Albumin [Mass/volume] in Serum or Plasma 3.1 G/DL 3.9 - 5.[address] [facility] Globulin [Mass/volume] in Serum by calculation 1.8 GM/DL 2.4 - 3.[address] [facility] A/G RATIO 1.7 0.8 - 2.0 [facility] Calcium [Mass/volume] in Serum or Plasma 8.8 MG/DL 8.4 - 10.2 [facility] Bilirubin.total [Mass/volume] in Serum or Plasma <0.7 MG/DL 0.2 - 1.3 [facility] Alkaline phosphatase [Enzymatic activity/volume] in Serum or Plasma 48 U/L 38 - 126 [facility] Aspartate aminotransferase [Enzymatic activity/volume] in Serum or Plasma 11 U/L 5 - 40 [facility] Alanine aminotransferase [Enzymatic activity/volume] in Seru m or Plasma 30 U/L 7 - 56 [facility] Anion gap 3 in Serum or Plasma 4.0 mmol/L 8.0 - 16.[address] [facility] AGE 75 yrs [facility] NON-AA GFR 28 mL/min [facility] AFR AMER GFR >60 [facility] pital Male GFR In terprentation 20-49 [...] >32 mL/min Normal ID Date Data Source [id number] 06/01/2020 07:25:[address] [facility] Name Value Range Interpretation Code Description Data Ro rce(s) Supporting Document(s) Magnesium [Mass/volume] in Serum or Plasma 1.6 MG/DL 1.7 - 2.[address] [facility] ID Date Data Source [id number] 05/31/2020 10:48:[address] [facility] Name Value Range Interpretation Code Description Data Ro rce(s) Supporting Document(s) Iron [Mass/volume] in Serum or Plasma 35 UG/DL 42 - [address] [facility] ID Date Data Source [id number] 05/31/2020 06:53:[address] [facility] Name Value Range Interpretation Code Description Data Ro rce(s) Supporting Document(s) CBC W/AUTOMATED DIFF [facility] COMPLETE BLOOD COUNT Leukocytes [#/volume] in Blood by Automated count 10.9 10^3/uL 4.2 - 11.0 [facility] Erythrocytes [#/volume] in Blood by Automated count 3.04 10^6/uL 4. 20 - 5.[address] [facility] Hemoglobin [Mass/volume] in Blood 9.3 g/dL 12.0 - 16.[address] [facility] Hematocrit [Volume Fraction] of Blood by Automated count 32.3 % 3 7.0 - 47.[address] [facility] Erythrocyte mean corpuscular volume [Entitic volume] b y Automated count 106.3 fL 81.0 - [address] [facility] Erythrocyte mean corpuscular hemoglobin [Entitic mass] by Automated count 30.6 pg 27.0 - 34.0 [facility] Erythrocyte mean corpuscular hemoglobin concentration [Mass/volume] by Automated count 28.8 g/dL 31.0 - 36.[address] [facility] Erythrocyte distribution width [Ratio] by Automated count 17.0 % 11.5 - 14.[address] [facility] Platelets [#/volume] in Blood by Automated count 270 10^3/uL 150 - [address] [facility] Platelet mean volume [Entitic volume] in Blood by Automated count 10.1 fL 7.4 - 10.4 [facility] Neutrophils/100 leukocytes in Blood by Automated count 62.4 % 37. 0 - 80.0 [facility] Lymphocytes/100 leukocytes in Blood by Manual count 12.1 % 25.0 - 40.[address] [facility] Monocytes/100 leukocytes in Blood by Automated count 12.4 % 3.0 - 8.0 H [facility] Eosinophils/100 leukocytes in Blood by Automated count 6.7 % 0.0 - 7.0 [facility] Basophils/100 leukocytes in Blood by Automated count 0.4 % 0.0 - 2.5 [facility] %IG 6.0 % 0.0 - 0.0 H [facility] %NRBC 0.3 % 0.0 - 0.0 H [facility] Neutrophils [#/volume] in Blood by Automated count 6.77 10^3/uL 2.00 - 6.90 [facility] Lymphocytes [#/volume] in Blood by Automated count 1.31 10^3/uL 0.60 - 3.40 [facility] Monocytes [#/volume] in Blood by Automated count 1.35 10^3/uL 0.00 - 0.[address] [facility] Eosinophils [#/volume] in Blood by Automated count 0.73 10^3/uL 0.00 - 0.[address] [facility] Basophils [#/volume] in Blood by Automated count 0.04 10^3/uL 0.00 - 0.20 [facility] #IG 0.65 10^3/uL 0.00 - 0.10 H [facility] #NRBC 0.03 10^3/uL 0.00 - 0.00 H [facility] MANUAL DIFF SEE BELOW [facility] ital Segmented neutrophils/100 leukocytes in Blood by Manual count 71 % 37 - 80 [facility] %LYMPH 10 % 25 - 40 L [facility] %MONO 9 % 3 - 8 H [facility] %EOS 8 % 0 - 7 H [facility] Myelocytes/100 leukocytes in Blood by Manual count 2 % [facility] RBC MORPH SEE BELOW [facility] Anisocytosis [Presence] in Blood by Light microscopy 1+ FARRUKH L: NONE SEEN A [facility] Microcytes [Presence] in Blood by Light microscopy 1+ NORMAL: NONE SEEN A [facility] HYPO 1+ NORMAL: NONE SEEN A [facility] Basophilic stippling [Presence] in Blood by Light microscopy 2+ NORMAL: NONE SEEN A [facility] { SICKLE CELL (NORMAL: NONE SEEN ) Platelet adequacy [Presence] in Blood by Light microscopy NORMAL NORMAL: NORMAL [facility] COMMENT: ID Date Data Source [id number] 05/31/2020 06:40:00 AM EDT [facility] Name Value Range Interpretation Code Description Data Ro rce(s) Supporting Document(s) Magnesium [Mass/volume] in Serum or Plasma 1.8 MG/DL 1.7 - 2.2 [facility] ID Date Data Source [id number] 05/31/2020 06:39:[address] [facility] Name Value Range Interpretation Code Description Data Ro rce(s) Supporting Document(s) COMPREHENSIVE METABOLIC PANEL [facility] COMPREHENSIVE METABOLIC PANEL Sodium [Moles/volume] in Serum or Plasma 146 mEq/L 134 - 153 [facility] Potassium [Moles/volume] in Serum or Plasma 5.6 mEq/L 3.6 - 5.[address] [facility] Chloride [Moles/volume] in Serum or Plasma 102 mEq/L 98 - 107 [facility] Carbon dioxide, total [Moles/volume] in Serum or Plasma 41 MEQ/L 22 - [address] [facility] VERIFIED BY REPEAT CALL/ READ BACK CALLED TO MARY GR[facility] BY: MARLYS [facility] DATE/TIME 0605-31-2020 [facility] Glucose [Mass/volume] in Serum or Plasma 100 MG/DL 65 - 110 [facility] BUN 52 MG/DL 7 - [address] [facility] Creatinine [Mass/volume] in Serum or Plasma 2.2 MG/DL 0.7 - 1.[address] [facility] BUN/CREAT 24 8 - 27 [facility] Protein [Mass/volume] in Serum or Plasma 5.4 G/DL 6.3 - 8.[address] [facility] Albumin [Mass/volume] in Serum or Plasma 3.4 G/DL 3.9 - 5.[address] [facility] Globulin [Mass/volume] in Serum by calculation 2.0 GM/DL 2.4 - 3.[address] [facility] A/G RATIO 1.7 0.8 - 2.0 [facility] Calcium [Mass/volume] in Serum or Plasma 9.4 MG/DL 8.4 - 10.2 [facility] Bilirubin.total [Mass/volume] in Serum or Plasma <0.7 MG/DL 0.2 - 1.3 [facility] Alkaline phosphatase [Enzymatic activity/volume] in Serum or Plasma 54 U/L 38 - 126 [facility] Aspartate aminotransferase [Enzymatic activity/volume] in Serum or Plasma 15 U/L 5 - 40 [facility] Alanine aminotransferase [Enzymatic activity/volume] in Seru m or Plasma 43 U/L 7 - 56 [facility] Anion gap 3 in Serum or Plasma 3.0 mmol/L 8.0 - 16.[address] [facility] AGE 75 yrs [facility] NON-AA GFR [facility] AMER GFR >60 [facility] Male GFR In [...] >32 mL/min Normal ID Date Data Source [id number] 05/31/2020 01:31:00 [place] [address] RESPIRATORY CARE REPORT ==== ---------NAME------- NUMBER SEX AGE ADMIT DISC. XRAY# F/C TYPEMARGARETCINDY Whitley [id number] F 75 05/28/20 [id number] ME8 I/P DATE OF : 1945 M/R# [id number] PH#: [phone] 119-1 LOCATION: EKG 88770 COMPLETE:05/30/20 0 8:24 M 55805 PHYSICIAN: REY PAUL Name Value Range Interpretation Code Description Data Ro rce(s) Supporting Document(s) ID Date Data Source [id number] 05/30/2020 03:11:00 [place] [address] PHONE: [phone] FAX: [phone] Name .................. : PATRICIADEVI Whitley Acct Number.................. : [id number] ROOM. ................. : 119-1 Number ................... : [id number] Stay type ............. : I/P Discharge Date......... ... : Admit Date ......... : 05/10 Admit Phys .................... : REY BEVERLY Date of ....... : 1945 Family Phys ................... : [employer] Phone .................. : [phone] Age ................................ : 75 Film# .................. .:[id number] Sex ................................. : F Unsigned transcriptions are preliminary reports and do not represent a medical or legal document CHEST 2 VIEWS 49063 COMPLETE:05/29/20 06:10 DLA 83435 (REASON FOR CHEST: CHF CHEST X-RAY: 2-VIEWS [...] 05/29/20 22:02, Dictation Date: Copy for: 002 [facility] Copy for: 710 [facility] REC Page 1 of 1 Name Value Range Interpretation Code Description Data Ro rce(s) Supporting Document(s) ID Date Data Source [id number] 05/30/2020 03:00:00 PM EDT [facility] [address] [place] [address] PHONE: [phone] FAX: [phone] Name .................. : TR Whitley Acct Number.................. : [id number] ROOM. ................. : 119-1 MR Number ................... : [id number] Stay type ............. : I/P Discharge Date......... ... : Admit Date ......... : 05/10 Admit Phys .................... : REY BEVERLY Date of ....... : 1945 Family Phys ................... : [employer] Phone .................. : [phone] Age ................................ : 75 Film# .................. .:[id number] Sex ................................. : F Unsigned transcriptions are preliminary reports and do not represent a medical or legal document CHEST 2 VIEWS 79253 COMPLETE:05/30/20 06:35 DLA 67669 (REASON FOR CHEST: CHF CHEST TWO VIEWS, [...] 05/30/20 12:35, Dictation Date: Copy for: 002 [facility] Copy for: 710 [facility] Page 1 of 1 Name Value Range Interpretation Code Description Data Ro rce(s) Supporting Document(s) ID Date Data Source [id number] 05/30/2020 07:35:[address] [facility] Name Value Range Interpretation Code Description Data Ro rce(s) Supporting Document(s) CBC W/AUTOMATED DIFF [facility] COMPLETE BLOOD COUNT Leukocytes [#/volume] in Blood by Automated count 12.7 10^3/uL 4.2 - 11.[address] [facility] Erythrocytes [#/volume] in Blood by Automated count 3.08 10^6/uL 4. 20 - 5.[address] [facility] Hemoglobin [Mass/volume] in Blood 9.4 g/dL 12.0 - 16.[address] [facility] Hematocrit [Volume Fraction] of Blood by Automated count 32.7 % 3 7.0 - 47.[address] [facility] Erythrocyte mean corpuscular volume [Entitic volume] b y Automated count 106.2 fL 81.0 - [address] [facility] Erythrocyte mean corpuscular hemoglobin [Entitic mass] by Automated count 30.5 pg 27.0 - 34.0 [facility] Erythrocyte mean corpuscular hemoglobin concentration [Mass/volume] by Automated count 28.7 g/dL 31.0 - 36.[address] [facility] Erythrocyte distribution width [Ratio] by Automated count 17.2 % 11.5 - 14.[address] [facility] Platelets [#/volume] in Blood by Automated count 314 10^3/uL 150 - [address] [facility] Platelet mean volume [Entitic volume] in Blood by Automated count 10.1 fL 7.4 - 10.4 [facility] Neutrophils/100 leukocytes in Blood by Automated count 58.5 % 37. 0 - 80.0 [facility] Lymphocytes/100 leukocytes in Blood by Manual count 15.1 % 25.0 - 40.[address] [facility] Monocytes/100 leukocytes in Blood by Automated count 12.7 % 3.0 - 8.[address] [facility] Eosinophils/100 leukocytes in Blood by Automated count 5.3 % 0.0 - 7.0 [facility] Basophils/100 leukocytes in Blood by Automated count 0.7 % 0.0 - 2.5 [facility] %IG 7.7 % 0.0 - 0.0 H [facility] %NRBC 0.9 % 0.0 - 0.0 H [facility] Neutrophils [#/volume] in Blood by Automated count 7.41 10^3/uL 2.00 - 6.[address] [facility] Lymphocytes [#/volume] in Blood by Automated count 1.91 10^3/uL 0.60 - 3.40 [facility] Monocytes [#/volume] in Blood by Automated count 1.61 10^3/uL 0.00 - 0.[address] [facility] Eosinophils [#/volume] in Blood by Automated count 0.67 10^3/uL 0.00 - 0.70 [facility] Basophils [#/volume] in Blood by Automated count 0.09 10^3/uL 0.00 - 0.20 [facility] #IG 0.98 10^3/uL 0.00 - 0.10 H [facility] #NRBC 0.11 10^3/uL 0.00 - 0.00 H [facility] MANUAL DIFF SEE BELOW [facility] ital Segmented neutrophils/100 leukocytes in Blood by Manual count 67 % 37 - 80 [facility] BAND 1 % 0 - 5 [facility] %LYMPH 14 % 25 - 40 L [facility] %MONO 7 % 3 - 8 [facility] %EOS 11 % 0 - 7 [facility] Nucleated erythrocytes/100 erythrocytes in Blood by Manual count 1 % [facility] RBC MORPH SEE BELOW [facility] Anisocytosis [Presence] in Blood by Light microscopy 1+ FARRUKH L: NONE SEEN A [facility] Macrocytes [Presence] in Blood by Light microscopy 1+ NORMAL: NONE SEEN A [facility] Poikilocytosis [Presence] in Blood by Light microscopy 1+ NOR MAL: NONE SEEN A [facility] HYPO 1+ NORMAL: NONE SEEN A [facility] Polychromasia [Presence] in Blood by Light microscopy 1+ NORM AL: NONE SEEN A [facility] { SICKLE CELL (NORMAL: NONE SEEN ) Platelet adequacy [Presence] in Blood by Light microscopy NORMAL NORMAL: NORMAL [facility] COMMENT: ID Date Data Source [id number] 05/30/2020 07:28:[address] [facility] Name Value Range Interpretation Code Description Data Ro rce(s) Supporting Document(s) COMPREHENSIVE METABOLIC PANEL [facility] COMPREHENSIVE METABOLIC PANEL Sodium [Moles/volume] in Serum or Plasma 144 mEq/L 134 - 153 [facility] Potassium [Moles/volume] in Serum or Plasma 5.2 mEq/L 3.6 - 5.0 H [facility] Chloride [Moles/volume] in Serum or Plasma 101 mEq/L 98 - 107 [facility] Carbon dioxide, total [Moles/volume] in Serum or Plasma 39 MEQ/L 22 - [address] [facility] Glucose [Mass/volume] in Serum or Plasma 90 MG/DL 65 - 110 [facility] BUN 59 MG/DL 7 - [address] [facility] Creatinine [Mass/volume] in Serum or Plasma 2.3 MG/DL 0.7 - 1.[address] [facility] BUN/CREAT 26 8 - 27 [facility] Protein [Mass/volume] in Serum or Plasma 5.6 G/DL 6.3 - 8.[address] [facility] Albumin [Mass/volume] in Serum or Plasma 3.5 G/DL 3.9 - 5.[address] [facility] Globulin [Mass/volume] in Serum by calculation 2.1 GM/DL 2.4 - 3.[address] [facility] A/G RATIO 1.7 0.8 - 2.0 [facility] Calcium [Mass/volume] in Serum or Plasma 8.9 MG/DL 8.4 - 10.2 [facility] Bilirubin.total [Mass/volume] in Serum or Plasma <0.7 MG/DL 0.2 - 1.3 [facility] Alkaline phosphatase [Enzymatic activity/volume] in Serum or Plasma 52 U/L 38 - 126 [facility] Aspartate aminotransferase [Enzymatic activity/volume] in Serum or Plasma 20 U/L 5 - 40 [facility] Alanine aminotransferase [Enzymatic activity/volume] in Seru m or Plasma 53 U/L 7 - 56 [facility] Anion gap 3 in Serum or Plasma 4.0 mmol/L 8.0 - 16.[address] [facility] 75 [facility] AFR AMER GFR >60 [facility] Male GFR In [...] >32 mL/min Normal ID Date Data Source [id number] 05/30/2020 07:28:[address] [facility] Name Value Range Interpretation Code Description Data Ro rce(s) Supporting Document(s) Magnesium [Mass/volume] in Serum or Plasma 1.8 MG/DL 1.7 - 2.2 [facility] ID Date Data Source [id number] 05/30/2020 03:10:00 [place] [address] RESPIRATORY CARE REPORT ==== ---------NAME------- NUMBER SEX AGE ADMIT DISC. XRAY# F/C BENCINDY Whitley [id number] F 75 05/28/20 [id number] ME8 I/P DATE OF : 1945 M/R# [id number] #: [id number] 119-1 LOCATION: EKG 12056 COMPLETE:05/29/20 0 8:15 [facility] [address] PHYSICIAN: REY PAUL Name Value Range Interpretation Code Description Data Ro rce(s) Supporting Document(s) ID Date Data Source [id number] 05/27/2020 10:38:00 [place] [address] PROGRESS NOTENAME: TR Whitley ROOM#: [id number] OF : 1945 MR#: [id number] DATE: 05/22/20 OF SERVICE: 05/27/20UBJECTIVE: This patient [...] rce(s) Supporting Document(s) ID Date Data Source [id number] 05/26/2020 11:50:00 [place] [address] PROGRESS NOTENAME: TR Whitley ROOM#: [id number] OF : 1945 MR#: [id number] DATE: 05/22/20 OF SERVICE: 05/26/20UBJECTIVE: This patient [...] rce(s) Supporting Document(s) ID Date Data Source [id number] 05/25/2020 11:03:00 [place] [address] PROGRESS NOTENAME: TR Whitley ROOM#: [id number] OF : 1945 MR#: [id number] DATE: 05/22/20 OF SERVICE: 05/25/2020SUBJECTIVE:Patient has known [...] rce(s) Supporting Document(s) ID Date Data Source [id number] 05/24/2020 11:05:00 [place] [address] PROGRESS NOTENAME: TR Whitley ROOM#: [id number] OF : 1945 MR#: [id number] DATE: 05/22/20 OF SERVICE: 05/24/20UBJECTIVE: This is [...] rce(s) Supporting Document(s) ID Date Data Source [id number] 05/23/2020 11:37:00 PM EDT [address] [address] PROGRESS NOTENAME: TR Whitley ROOM#: [id number] OF : 1945 MR#: [id number] DATE: 05/22/20 OF SERVICE: 05/23/20UBJECTIVE: This patient [...] rce(s) Supporting Document(s) ID Date Data Source [id number] 05/22/2020 12:07:00 [place] [address] HISTORY AND PHYSICALNAME: TR Whitley ROOM#: [id number] OF : 1945 MR#: [id number] PHYS: Silver Peterson MD, PC DATE: 05/22/20CHIEF [...] valve repair andmitral valve ring surgery at [facility] on 04/04/20. She has known history of COPD, historyof chronic kidney failure, history of cardiomyopathy, history of hypertension, history of anemia.PERSONAL HISTORY:Patient smokes half pack.FAMILY HISTORY:Father and mother both had heart disease.PHYSICAL EXAMINATION: [address] [place] [id number] HISTORY AND PHYSICAL NAME: TR Whitley ROOM#: [id number] DATE OF : 1945 MR#: [id number] ATTENDING PHYS: Silver Peterson MD, PC ADMISSION [...] rce(s) Supporting Document(s) ID Date Data Source [id number] 05/29/2020 10:49:00 [place] [address] DISCHARGE SUMMARYNAME: TR Whitley ROOM#: [id number] OF : 1945 MR#: [id number] PHYS: Silver Peterson MD, PC DATE: 05/22/20 [...] fortricuspid regurgitation. She had surgery done in [facility] several months ago. On exam,blood pressure [...] IV fluid.COURSE DURING HOSPITALIZATION:Patient was put on cell stripper, 2 L of oxygen per minute nasal [...] mg once a day. The patient [address] [place] [address] DISCHARGE SUMMARYNAME: TR Whitley ROOM#: [id number] OF : 1945 MR#: [id number] PHYS: Silver Peterson MD, PC DATE: 05/22/20 [...] rce(s) Supporting Document(s) ID Date Data Source [id number] 05/29/2020 10:26:00 AM EDT [facility] [address] [place] [address] PHONE: [phone] FAX: [phone] Name .................. : TR Whitley Acct Number.................. : [id number] ROOM. ................. : [address] Number ................... : [id number] Stay type ............. : I/P Discharge Date......... ... : Admit Date ......... : 05/22/20 Admit Phys .................... : REY BEVERLY Date of ....... : 1945 Family Phys ................... : [employer] Phone .................. : [phone] Age ................................ : 75 Film# .................. .:[id number] Sex ................................. : F Unsigned transcriptions are preliminary reports and do not represent a medical or legal document CT [place]ORAX W/O CONTRAST [id number] COMPLETE:05/26/20 12:04 RLB 46574 (REASON FOR CHEST: CHF CT OF THE [...] rce(s) Supporting Document(s) ID Date Data Source [id number] 05/29/2020 07:46:[address] [facility] Name Value Range Interpretation Code Description Data Ro rce(s) Supporting Document(s) Magnesium [Mass/volume] in Serum or Plasma 1.8 MG/DL 1.7 - 2.2 [facility] ID Date Data Source [id number] 05/29/2020 07:46:[address] [facility] Name Value Range Interpretation Code Description Data Ro rce(s) Supporting Document(s) COMPREHENSIVE METABOLIC PANEL [facility] COMPREHENSIVE METABOLIC PANEL Sodium [Moles/volume] in Serum or Plasma 145 mEq/L 134 - 153 [facility] Potassium [Moles/volume] in Serum or Plasma 5.3 mEq/L 3.6 - 5.[address] [facility] Chloride [Moles/volume] in Serum or Plasma 103 mEq/L 98 - 107 [facility] Carbon dioxide, total [Moles/volume] in Serum or Plasma 37 MEQ/L 22 - [address] [facility] Glucose [Mass/volume] in Serum or Plasma 101 MG/DL 65 - 110 [facility] BUN 65 MG/DL 7 - [address] [facility] Creatinine [Mass/volume] in Serum or Plasma 2.2 MG/DL 0.7 - 1.[address] [facility] BUN/CREAT 30 8 - [address] [facility] Protein [Mass/volume] in Serum or Plasma 5.7 G/DL 6.3 - 8.[address] [facility] Albumin [Mass/volume] in Serum or Plasma 3.5 G/DL 3.9 - 5.[address] [facility] Globulin [Mass/volume] in Serum by calculation 2.2 GM/DL 2.4 - 3.[address] [facility] A/G RATIO 1.6 0.8 - 2.0 [facility] Calcium [Mass/volume] in Serum or Plasma 8.3 MG/DL 8.4 - 10.[address] [facility] Bilirubin.total [Mass/volume] in Serum or Plasma <0.7 MG/DL 0.2 - 1.3 [facility] Alkaline phosphatase [Enzymatic activity/volume] in Serum or Plasma 54 U/L 38 - 126 [facility] Aspartate aminotransferase [Enzymatic activity/volume] in Serum or Plasma 15 U/L 5 - 40 [facility] Alanine aminotransferase [Enzymatic activity/volume] in Seru m or Plasma 50 U/L 7 - 56 [facility] Anion gap 3 in Serum or Plasma 5.0 mmol/L 8.0 - 16.[address] [facility] AGE 75 yrs [facility] NON-AA GFR 23 mL/min [facility] AFR AMER GFR >60 [facility] Male GFR In [...] >32 mL/min Normal ID Date Data Source [id number] 05/29/2020 07:46:[address] [facility] Name Value Range Interpretation Code Description Data Ro rce(s) Supporting Document(s) Iron [Mass/volume] in Serum or Plasma 87 UG/DL 42 - 135 [facility] ID Date Data Source [id number] 05/29/2020 07:42:[address] [facility] Name Value Range Interpretation Code Description Data Ro rce(s) Supporting Document(s) CBC W/AUTOMATED DIFF [facility] COMPLETE BLOOD COUNT Leukocytes [#/volume] in Blood by Automated count 12.2 10^3/uL 4.2 - 11.[address] [facility] Erythrocytes [#/volume] in Blood by Automated count 3.05 10^6/uL 4. 20 - 5.[address] [facility] Hemoglobin [Mass/volume] in Blood 9.2 g/dL 12.0 - 16.[address] [facility] Hematocrit [Volume Fraction] of Blood by Automated count 31.8 % 3 7.0 - 47.[address] [facility] Erythrocyte mean corpuscular volume [Entitic volume] b y Automated count 104.3 fL 81.0 - [address] [facility] Erythrocyte mean corpuscular hemoglobin [Entitic mass] by Automated count 30.2 pg 27.0 - 34.0 [facility] Erythrocyte mean corpuscular hemoglobin concentration [Mass/volume] by Automated count 28.9 g/dL 31.0 - 36.[address] [facility] Erythrocyte distribution width [Ratio] by Automated count 16.6 % 11.5 - 14.[address] [facility] Platelets [#/volume] in Blood by Automated count 312 10^3/uL 150 - [address] [facility] Platelet mean volume [Entitic volume] in Blood by Automated count 10.0 fL 7.4 - 10.4 [facility] Neutrophils/100 leukocytes in Blood by Automated count 70.6 % 37. 0 - 80.0 [facility] Lymphocytes/100 leukocytes in Blood by Manual count 10.0 % 25.0 - 40.[address] [facility] Monocytes/100 leukocytes in Blood by Automated count 11.5 % 3.0 - 8.[address] [facility] Eosinophils/100 leukocytes in Blood by Automated count 0.2 % 0.0 - 7.0 [facility] Basophils/100 leukocytes in Blood by Automated count 0.7 % 0.0 - 2.5 [facility] %IG 7.0 % 0.0 - 0.0 H [facility] %NRBC 1.1 % 0.0 - 0.0 H [facility] Neutrophils [#/volume] in Blood by Automated count 8.63 10^3/uL 2.00 - 6.[address] [facility] Lymphocytes [#/volume] in Blood by Automated count 1.22 10^3/uL 0.60 - 3.40 [facility] Monocytes [#/volume] in Blood by Automated count 1.40 10^3/uL 0.00 - 0.[address] [facility] Eosinophils [#/volume] in Blood by Automated count 0.02 10^3/uL 0.00 - 0.70 [facility] Basophils [#/volume] in Blood by Automated count 0.08 10^3/uL 0.00 - 0.20 [facility] #IG 0.85 10^3/uL 0.00 - 0.10 H [facility] #NRBC 0.14 10^3/uL 0.00 - 0.00 H [facility] MANUAL DIFF SEE BELOW [facility] ital Segmented neutrophils/100 leukocytes in Blood by Manual count 75 % 37 - 80 [facility] BAND 1 % 0 - 5 [facility] %LYMPH 10 % 25 - 40 L [facility] %MONO 10 % 3 - 8 H [facility] al Metamyelocytes/100 leukocytes in Blood by Manual count 2 % [facility] Myelocytes/100 leukocytes in Blood by Manual count 2 % [facility] Nucleated erythrocytes/100 erythrocytes in Blood by Manual count 2 % [facility] RBC MORPH SEE BELOW [facility] Anisocytosis [Presence] in Blood by Light microscopy 1+ FARRUKH L: NONE SEEN A [facility] Macrocytes [Presence] in Blood by Light microscopy 1+ NORMAL: NONE SEEN A [facility] Poikilocytosis [Presence] in Blood by Light microscopy 1+ NOR MAL: NONE SEEN A [facility] HYPO 1+ NORMAL: NONE SEEN A [facility] { SICKLE CELL (NORMAL: NONE SEEN ) Platelet adequacy [Presence] in Blood by Light microscopy NORMAL NORMAL: NORMAL [facility] COMMENT: ID Date Data Source [id number] 05/29/2020 07:26:00 AM EDT [facility] Name Value Range Interpretation Code Description Data Ro rce(s) Supporting Document(s) BNP 17509 PG/ML 0 - 125 H [facility] ital ID Date Data Source [id number] 05/28/2020 08:11:00 AM [facility] Name Value Range Interpretation Code Description Data Ro rce(s) Supporting Document(s) COMPREHENSIVE METABOLIC PANEL [facility] COMPREHENSIVE METABOLIC PANEL Sodium [Moles/volume] in Serum or Plasma 142 mEq/L 134 - 153 [facility] Potassium [Moles/volume] in Serum or Plasma 5.1 mEq/L 3.6 - 5.[address] [facility] Chloride [Moles/volume] in Serum or Plasma 100 mEq/L 98 - 107 [facility] Carbon dioxide, total [Moles/volume] in Serum or Plasma 32 MEQ/L 22 - [address] [facility] Glucose [Mass/volume] in Serum or Plasma 133 MG/DL 65 - [address] [facility] BUN 78 MG/DL 7 - 21 [facility] CALL/ READ BACK CALLED TO [facility] BY: TRACIE [facility] DATE/TIME 05/28/20 @ 0810 [facility] ospital Creatinine [Mass/volume] in Serum or Plasma 2.4 MG/DL 0.7 - 1.[address] [facility] BUN/CREAT 33 8 - 27 H [facility] Protein [Mass/volume] in Serum or Plasma 5.6 G/DL 6.3 - 8.[address] [facility] Albumin [Mass/volume] in Serum or Plasma 3.4 G/DL 3.9 - 5.[address] [facility] Globulin [Mass/volume] in Serum by calculation 2.2 GM/DL 2.4 - 3.[address] [facility] A/G RATIO 1.5 0.8 - 2.0 [facility] Calcium [Mass/volume] in Serum or Plasma 7.8 MG/DL 8.4 - 10.[address] [facility] Bilirubin.total [Mass/volume] in Serum or Plasma <0.7 MG/DL 0.2 - 1.3 [facility] Alkaline phosphatase [Enzymatic activity/volume] in Serum or Plasma 59 U/L 38 - 126 [facility] Aspartate aminotransferase [Enzymatic activity/volume] in Serum or Plasma 21 U/L 5 - 40 [facility] Alanine aminotransferase [Enzymatic activity/volume] in Seru m or Plasma 62 U/L 7 - [address] [facility] Anion gap 3 in Serum or Plasma 10.0 mmol/L 8.0 - 16.0 [facility] AGE 75 yrs [facility] NON-AA GFR 21 mL/min [facility] AFR AMER GFR >60 [facility] Male GFR In [...] >32 mL/min Normal ID Date Data Source [id number] 05/28/2020 07:43:[address] [facility] Name Value Range Interpretation Code Description Data Ro rce(s) Supporting Document(s) CBC W/AUTOMATED DIFF [facility] COMPLETE BLOOD COUNT Leukocytes [#/volume] in Blood by Automated count 12.0 10^3/uL 4.2 - 11.[address] [facility] Erythrocytes [#/volume] in Blood by Automated count 3.03 10^6/uL 4. 20 - 5.[address] [facility] Hemoglobin [Mass/volume] in Blood 9.3 g/dL 12.0 - 16.[address] [facility] Hematocrit [Volume Fraction] of Blood by Automated count 31.2 % 3 7.0 - 47.[address] [facility] Erythrocyte mean corpuscular volume [Entitic volume] b y Automated count 103.0 fL 81.0 - [address] [facility] Erythrocyte mean corpuscular hemoglobin [Entitic mass] by Automated count 30.7 pg 27.0 - 34.0 [facility] Erythrocyte mean corpuscular hemoglobin concentration [Mass/volume] by Automated count 29.8 g/dL 31.0 - 36.[address] [facility] Erythrocyte distribution width [Ratio] by Automated count 16.5 % 11.5 - 14.[address] [facility] Platelets [#/volume] in Blood by Automated count 317 10^3/uL 150 - [address] [facility] Platelet mean volume [Entitic volume] in Blood by Automated count 10.4 fL 7.4 - 10.4 [facility] Neutrophils/100 leukocytes in Blood by Automated count 78.3 % 37. 0 - 80.0 [facility] Lymphocytes/100 leukocytes in Blood by Manual count 8.0 % 25.0 - 40.[address] [facility] Monocytes/100 leukocytes in Blood by Automated count 8.5 % 3.0 - 8.[address] [facility] Eosinophils/100 leukocytes in Blood by Automated count 0.1 % 0.0 - 7.0 [facility] Basophils/100 leukocytes in Blood by Automated count 0.4 % 0.0 - 2.5 [facility] %IG 4.7 % 0.0 - 0.0 H [facility] %NRBC 1.6 % 0.0 - [facility].0 [facility] Neutrophils [#/volume] in Blood by Automated count 9.37 10^3/uL 2.00 - 6.[address] [facility] Lymphocytes [#/volume] in Blood by Automated count 0.96 10^3/uL 0.60 - 3.40 [facility] Monocytes [#/volume] in Blood by Automated count 1.02 10^3/uL 0.00 - 0.[address] [facility] Eosinophils [#/volume] in Blood by Automated count 0.01 10^3/uL 0.00 - 0.70 [facility] Basophils [#/volume] in Blood by Automated count 0.05 10^3/uL 0.00 - 0.20 [facility] #IG 0.56 10^3/uL 0.00 - 0.10 H [facility] #NRBC 0.19 10^3/uL 0.00 - 0.[address] [facility] ospital MANUAL DIFF NOT INDICATED [facility] RBC MORPH NOT INDICATED [facility] spital ID Date Data Source [id number] 05/27/2020 08:29:[address] [facility] Name Value Range Interpretation Code Description Data Ro rce(s) Supporting Document(s) CBC W/AUTOMATED DIFF [facility] COMPLETE BLOOD COUNT Leukocytes [#/volume] in Blood by Automated count 12.6 10^3/uL 4.2 - 11.[address] [facility] Erythrocytes [#/volume] in Blood by Automated count 3.02 10^6/uL 4. 20 - 5.[address] [facility] Hemoglobin [Mass/volume] in Blood 9.1 g/dL 12.0 - 16.[address] [facility] Hematocrit [Volume Fraction] of Blood by Automated count 30.6 % 3 7.0 - 47.[address] [facility] Erythrocyte mean corpuscular volume [Entitic volume] b y Automated count 101.3 fL 81.0 - [address] [facility] Erythrocyte mean corpuscular hemoglobin [Entitic mass] by Automated count 30.1 pg 27.0 - 34.0 [facility] Erythrocyte mean corpuscular hemoglobin concentration [Mass/volume] by Automated count 29.7 g/dL 31.0 - 36.[address] [facility] Erythrocyte distribution width [Ratio] by Automated count 16.2 % 11.5 - 14.[address] [facility] Platelets [#/volume] in Blood by Automated count 312 10^3/uL 150 - [address] [facility] Platelet mean volume [Entitic volume] in Blood by Automated count 10.5 fL 7.4 - 10.[address] [facility] Neutrophils/100 leukocytes in Blood by Automated count 75.8 % 37. 0 - 80.0 [facility] Lymphocytes/100 leukocytes in Blood by Manual count 8.8 % 25.0 - 40.[address] [facility] Monocytes/100 leukocytes in Blood by Automated count 10.4 % 3.0 - 8.[address] [facility] Eosinophils/100 leukocytes in Blood by Automated count 0.0 % 0.0 - 7.0 [facility] 0.4 %IG 4.6 % 0.0 - 0.0 H [facility] al %NRBC 2.3 % 0.0 - 0.0 H [facility] al Neutrophils [#/volume] in Blood by Automated count 9.55 10^3/uL 2.00 - 6.[address] [facility] Lymphocytes [#/volume] in Blood by Automated count 1.11 10^3/uL 0.60 - 3.40 [facility] Monocytes [#/volume] in Blood by Automated count 1.31 10^3/uL 0.00 - 0.[address] [facility] Eosinophils [#/volume] in Blood by Automated count 0.00 10^3/uL 0.00 - 0.70 [facility] Basophils [#/volume] in Blood by Automated count 0.05 10^3/uL 0.00 - 0.20 [facility] #IG 0.58 10^3/uL 0.00 - 0.[address] [facility] ospital #NRBC 0.29 10^3/uL 0.00 - 0.00 H [facility] MANUAL DIFF SEE BELOW [facility] ital Segmented neutrophils/100 leukocytes in Blood by Manual count 83 % 37 - [address] [facility] BAND 0 % 0 - 5 [facility] %LYMPH 12 % 25 - 40 [facility] %MONO 5 % 3 - 8 [facility] %EOS 0 % 0 - 7 [facility] 0 Nucleated erythrocytes/100 erythrocytes in Blood by Manual count 2 % [facility] RBC MORPH NOT INDICATED [facility] spital ID Date Data Source [id number] 05/27/2020 08:00:[address] [facility] Name Value Range Interpretation Code Description Data Ro rce(s) Supporting Document(s) COMPREHENSIVE METABOLIC PANEL [facility] COMPREHENSIVE METABOLIC PANEL Sodium [Moles/volume] in Serum or Plasma 138 mEq/L 134 - 153 [facility] Potassium [Moles/volume] in Serum or Plasma 4.9 mEq/L 3.6 - 5.0 [facility] Chloride [Moles/volume] in Serum or Plasma 98 mEq/L 98 - 107 [facility] Carbon dioxide, total [Moles/volume] in Serum or Plasma 30 MEQ/L 22 - 30 [facility] Glucose [Mass/volume] in Serum or Plasma 137 MG/DL 65 - [address] [facility] BUN 85 MG/DL 7 - 21 [facility] CALL/ READ BACK CALLED TO [facility] BY: TRACIE [facility] DATE/TIME 05/27/20 @ 0800 [facility] ospital Creatinine [Mass/volume] in Serum or Plasma 2.6 MG/DL 0.7 - 1.[address] [facility] BUN/CREAT 33 8 - 27 [facility] Protein [Mass/volume] in Serum or Plasma 5.4 G/DL 6.3 - 8.[address] [facility] Albumin [Mass/volume] in Serum or Plasma 3.3 G/DL 3.9 - 5.[address] [facility] Globulin [Mass/volume] in Serum by calculation 2.1 GM/DL 2.4 - 3.[address] [facility] A/G RATIO 1.6 0.8 - 2.0 [facility] Calcium [Mass/volume] in Serum or Plasma 7.1 MG/DL 8.4 - 10.[address] [facility] Bilirubin.total [Mass/volume] in Serum or Plasma <0.7 MG/DL 0.2 - 1.3 [facility] Alkaline phosphatase [Enzymatic activity/volume] in Serum or Plasma 61 U/L 38 - 126 [facility] Aspartate aminotransferase [Enzymatic activity/volume] in Serum or Plasma 36 U/L 5 - 40 [facility] Alanine aminotransferase [Enzymatic activity/volume] in Seru m or Plasma 77 U/L 7 - [address] [facility] Anion gap 3 in Serum or Plasma 10.0 mmol/L 8.0 - 16.0 [facility] AGE 75 yrs [facility] al NON-AA GFR 19 mL/min [facility] AFR AMER GFR >60 [facility] Male GFR In [...] >32 mL/min Normal ID Date Data Source [id number] 05/26/2020 09:22:00 AM EDT [facility] [address] [place] [address] PHONE: [phone] FAX: [phone] Name .................. : TR Whitley Acct Number.................. : [id number] ROOM. ................. : CCU3 Number ................... : [id number] Stay type ............. : I/P Discharge Date......... ... : Admit Date ......... : 05/09 12/26 Admit Phys .................... : REY BEVERLY Date of ....... : 1945 Family Phys ................... : [employer] Phone .................. : [phone] Age ................................ : 75 Film# .................. .:[id number] Sex ................................. : F Unsigned transcriptions are preliminary reports and do not represent a medical or legal document CHEST 2 VIEWS [id number] COMPLETE:05/25/20 06:29 KJE [id number] (REASON FOR CHEST: CHF CHEST X-RAY: 2-VIEWS INDICATION: CHF. COMPARISON: 02/08/20 TECHNIQUE: 2-views of the chest submitted. FINDINGS: Stable hyperinflation. No infiltrate. Borderline cardiomegaly. A left-sided pacemaker. Basilar atelectasis. IMPRESSION: Basilar atelectasis. Hyperinflation. Borderline cardiomegaly. No infiltrate. Electronically Reviewed and Signed By Rishabh Cee MD , 05/26/20 09:22, JANINE Transcribe Initials: KIRIT , Transcribe Date: 05/25/20 16:34, Dictation Date: Copy for: 002 [facility] Copy for: 710 [facility] REC Page 1 of 1 Name Value Range Interpretation Code Description Data Ro rce(s) Supporting Document(s) ID Date Data Source [id number] 05/26/2020 10:33:[address] [facility] Name Value Range Interpretation Code Description Data Ro rce(s) Supporting Document(s) Cobalamin (Vitamin B12) [Mass/volume] in Serum or Plasma 653 PG/ML 232 - 1245 [facility] ID Date Data Source [id number] 05/26/2020 10:14:[address] [facility] Name Value Range Interpretation Code Description Data Ro rce(s) Supporting Document(s) Iron [Mass/volume] in Serum or Plasma 48 UG/DL 42 - 135 [facility] ID Date Data Source [id number] 05/26/2020 07:33:[address] [facility] Name Value Range Interpretation Code Description Data Ro rce(s) Supporting Document(s) COMPREHENSIVE METABOLIC PANEL [facility] COMPREHENSIVE METABOLIC PANEL Sodium [Moles/volume] in Serum or Plasma 137 mEq/L 134 - 153 [facility] Potassium [Moles/volume] in Serum or Plasma 5.1 mEq/L 3.6 - 5.[address] [facility] Chloride [Moles/volume] in Serum or Plasma 96 mEq/L 98 - [address] [facility] Carbon dioxide, total [Moles/volume] in Serum or Plasma 28 MEQ/L 22 - 30 [facility] Glucose [Mass/volume] in Serum or Plasma 165 MG/DL 65 - [address] [facility] BUN 87 MG/DL 7 - 21 HH [facility] ELISEO ON AIUCM05/26/20 0734 Creatinine [Mass/volume] in Serum or Plasma 3.1 MG/DL 0.7 - 1.[address] [facility] BUN/CREAT 28 8 - 27 [facility] Protein [Mass/volume] in Serum or Plasma 5.4 G/DL 6.3 - 8.[address] [facility] Albumin [Mass/volume] in Serum or Plasma 3.1 G/DL 3.9 - 5.[address] [facility] Globulin [Mass/volume] in Serum by calculation 2.3 GM/DL 2.4 - 3.[address] [facility] A/G RATIO 1.3 0.8 - 2.0 [facility] Calcium [Mass/volume] in Serum or Plasma 6.9 MG/DL 8.4 - 10.[address] [facility] ELISEO ON AIUCM05/26/20 0734 Bilirubin.total [Mass/volume] in Serum or Plasma <0.7 MG/DL 0.2 - 1.3 [facility] Alkaline phosphatase [Enzymatic activity/volume] in Serum or Plasma 56 U/L 38 - 126 [facility] Aspartate aminotransferase [Enzymatic activity/volume] in Serum or Plasma 44 U/L 5 - [address] [facility] Alanine aminotransferase [Enzymatic activity/volume] in Seru m or Plasma 60 U/L 7 - [address] [facility] Anion gap 3 in Serum or Plasma 13.0 mmol/L 8.0 - 16.0 [facility] AGE 75 yrs [facility] NON-AA GFR 16 mL/min [facility] AFR AMER GFR >60 [facility] Male GFR In [...] >32 mL/min Normal ID Date Data Source [id number] 05/26/2020 06:35:[address] [facility] Name Value Range Interpretation Code Description Data Ro rce(s) Supporting Document(s) CBC W/AUTOMATED DIFF [facility] COMPLETE BLOOD COUNT Leukocytes [#/volume] in Blood by Automated count 11.2 10^3/uL 4.2 - 11.[address] [facility] Erythrocytes [#/volume] in Blood by Automated count 2.72 10^6/uL 4. 20 - 5.[address] [facility] Hemoglobin [Mass/volume] in Blood 8.3 g/dL 12.0 - 16.[address] [facility] Hematocrit [Volume Fraction] of Blood by Automated count 27.3 % 3 7.0 - 47.[address] [facility] Erythrocyte mean corpuscular volume [Entitic volume] b y Automated count 100.4 fL 81.0 - 101 [facility] Erythrocyte mean corpuscular hemoglobin [Entitic mass] by Automated count 30.5 pg 27.0 - 34.0 [facility] Erythrocyte mean corpuscular hemoglobin concentration [Mass/volume] by Automated count 30.4 g/dL 31.0 - 36.[address] [facility] Erythrocyte distribution width [Ratio] by Automated count 15.9 % 11.5 - 14.[address] [facility] Platelets [#/volume] in Blood by Automated count 260 10^3/uL 150 - [address] [facility] Platelet mean volume [Entitic volume] in Blood by Automated count 10.1 fL 7.4 - 10.4 [facility] Neutrophils/100 leukocytes in Blood by Automated count 88.9 % 37. 0 - 80.[address] [facility] Lymphocytes/100 leukocytes in Blood by Manual count 5.0 % 25.0 - 40.[address] [facility] Monocytes/100 leukocytes in Blood by Automated count 2.4 % 3.0 - 8.[address] [facility] Eosinophils/100 leukocytes in Blood by Automated count 0.0 % 0.0 - 7.0 [facility] Basophils/100 leukocytes in Blood by Automated count 0.2 % 0.0 - 2.5 [facility] %IG 3.5 % 0.0 - 0.0 [facility] %NRBC 0.6 % 0.0 - 0.0 H [facility] Neutrophils [#/volume] in Blood by Automated count 9.95 10^3/uL 2.00 - 6.[address] [facility] Lymphocytes [#/volume] in Blood by Automated count 0.56 10^3/uL 0.60 - 3.[address] [facility] Monocytes [#/volume] in Blood by Automated count 0.27 10^3/uL 0.00 - 0.90 [facility] Eosinophils [#/volume] in Blood by Automated count 0.00 10^3/uL 0.00 - 0.70 [facility] Basophils [#/volume] in Blood by Automated count 0.02 10^3/uL 0.00 - 0.20 [facility] #IG 0.39 10^3/uL 0.00 - 0.10 H [facility] #NRBC 0.07 10^3/uL 0.00 - 0.00 H [facility] MANUAL DIFF NOT INDICATED [facility] RBC MORPH NOT INDICATED [facility] spital ID Date Data Source [id number] 05/26/2020 03:21:00 AM EDT [facility] [address] [place] [address] RESPIRATORY CARE REPORT ==== ---------NAME------- NUMBER SEX AGE ADMIT DISC. XRAY# F/C TYPEDUFFANY DONALD Gutierrez [id number] F 75 05/22/20 [id number] M8 I/P DATE OF : 1945 M/R# [id number] #: [id number] CCU3 LOCATION: [facility] [id number] COMPLETE:05/25/20 08 :22 [facility] [address] PHYSICIAN: REY PAUL Name Value Range Interpretation Code Description Data Ro rce(s) Supporting Document(s) ID Date Data Source [id number] 05/25/2020 08:28:[address] [facility] Name Value Range Interpretation Code Description Data Ro rce(s) Supporting Document(s) COMPREHENSIVE METABOLIC PANEL [facility] COMPREHENSIVE METABOLIC PANEL Sodium [Moles/volume] in Serum or Plasma 137 mEq/L 134 - 153 [facility] Potassium [Moles/volume] in Serum or Plasma 4.8 mEq/L 3.6 - 5.0 [facility] Chloride [Moles/volume] in Serum or Plasma 94 mEq/L 98 - [address] [facility] Carbon dioxide, total [Moles/volume] in Serum or Plasma 26 MEQ/L 22 - 30 [facility] Glucose [Mass/volume] in Serum or Plasma 168 MG/DL 65 - [address] [facility] BUN 87 MG/DL 7 - [address] [facility] CALL/ READ BACK FAUZIA PATEL [facility]U [facility] BY: ASHOK [facility] DATE/TIME 05.25.20 [facility] Creatinine [Mass/volume] in Serum or Plasma 3.4 MG/DL 0.7 - 1.[address] [facility] BUN/CREAT 26 8 - 27 [facility] Protein [Mass/volume] in Serum or Plasma 5.5 G/DL 6.3 - 8.[address] [facility] Albumin [Mass/volume] in Serum or Plasma 3.4 G/DL 3.9 - 5.[address] [facility] Globulin [Mass/volume] in Serum by calculation 2.1 GM/DL 2.4 - 3.[address] [facility] A/G RATIO 1.6 0.8 - 2.0 [facility] Calcium [Mass/volume] in Serum or Plasma 7.5 MG/DL 8.4 - 10.[address] [facility] Bilirubin.total [Mass/volume] in Serum or Plasma <0.7 MG/DL 0.2 - 1.3 [facility] Alkaline phosphatase [Enzymatic activity/volume] in Serum or Plasma 65 U/L 38 - 126 [facility] Aspartate aminotransferase [Enzymatic activity/volume] in Serum or Plasma 16 U/L 5 - 40 [facility] Alanine aminotransferase [Enzymatic activity/volume] in Seru m or Plasma 19 U/L 7 - 56 [facility] Anion gap 3 in Serum or Plasma 17.0 mmol/L 8.0 - 16.[address] [facility] AGE [address] [facility] NON-AA GFR 14 mL/min [facility] AFR AMER GFR >60 [facility] Male GFR In [...] >32 mL/min Normal ID Date Data Source [id number] 05/25/2020 07:19:[address] [facility] Name Value Range Interpretation Code Description Data Ro rce(s) Supporting Document(s) CBC W/AUTOMATED DIFF [facility] COMPLETE BLOOD COUNT Leukocytes [#/volume] in Blood by Automated count 13.2 10^3/uL 4.2 - 11.[address] [facility] Erythrocytes [#/volume] in Blood by Automated count 2.88 10^6/uL 4. 20 - 5.[address] [facility] Hemoglobin [Mass/volume] in Blood 8.8 g/dL 12.0 - 16.[address] [facility] Hematocrit [Volume Fraction] of Blood by Automated count 28.8 % 3 7.0 - 47.[address] [facility] Erythrocyte mean corpuscular volume [Entitic volume] b y Automated count 100.0 fL 81.0 - 101 [facility] Erythrocyte mean corpuscular hemoglobin [Entitic mass] by Automated count 30.6 pg 27.0 - 34.0 [facility] Erythrocyte mean corpuscular hemoglobin concentration [Mass/volume] by Automated count 30.6 g/dL 31.0 - 36.[address] [facility] Erythrocyte distribution width [Ratio] by Automated count 15.9 % 11.5 - 14.[address] [facility] Platelets [#/volume] in Blood by Automated count 266 10^3/uL 150 - [address] [facility] Platelet mean volume [Entitic volume] in Blood by Automated count 10.6 fL 7.4 - 10.[address] [facility] Neutrophils/100 leukocytes in Blood by Automated count 91.7 % 37. 0 - 80.[address] [facility] Lymphocytes/100 leukocytes in Blood by Manual count 4.0 % 25.0 - 40.[address] [facility] Monocytes/100 leukocytes in Blood by Automated count 2.5 % 3.0 - 8.[address] [facility] Eosinophils/100 leukocytes in Blood by Automated count 0.0 % 0.0 - 7.0 [facility] Basophils/100 leukocytes in Blood by Automated count 0.1 % 0.0 - 2.5 [facility] %IG 1.7 % 0.0 - 0.0 H [facility] %NRBC 0.3 % 0.0 - 0.0 [facility] Neutrophils [#/volume] in Blood by Automated count 12.13 10^3/uL 2. 00 - 6.[address] [facility] Lymphocytes [#/volume] in Blood by Automated count 0.53 10^3/uL 0.60 - 3.[address] [facility] Monocytes [#/volume] in Blood by Automated count 0.33 10^3/uL 0.00 - 0.90 [facility] Eosinophils [#/volume] in Blood by Automated count 0.00 10^3/uL 0.00 - 0.70 [facility] Basophils [#/volume] in Blood by Automated count 0.01 10^3/uL 0.00 - 0.20 [facility] #IG 0.22 10^3/uL 0.00 - 0.10 H [facility] #NRBC 0.04 10^3/uL 0.00 - 0.00 H [facility] MANUAL DIFF NOT INDICATED [facility] RBC MORPH NOT INDICATED [facility] spital ID Date Data Source [id number] 05/25/2020 01:53:00 [place] [address] RESPIRATORY CARE REPORT ==== ---------NAME------- NUMBER SEX AGE ADMIT DISC. XRAY# F/C EDWIN DONALD Whitley [id number] F 75 05/22/20 [id number] M8 I/P DATE OF : 1945 M/R# [id number] PH#: [id number] CCU3 LOCATION: [facility] [address] COMPLETE:05/24/20 13 :02 M [id number] PHYSICIAN: REY PAUL Name Value Range Interpretation Code Description Data Ro rce(s) Supporting Document(s) ID Date Data Source [id number] 05/24/2020 11:03:00 AM EDT [facility] [address] [place] [address] PHONE: [phone] FAX: [phone] Name .................. : TR DONALD Gutierrez Acct Number.................. : [id number] ROOM. ................. : [address] Number ................... : [id number] Stay type ............. : I/P Discharge Date......... ... : Admit Date ......... : 05/22/20 Admit Phys .................... : REY PAUL Date of ....... : 1945 Family Phys ................... : [employer] Phone .................. : [phone] Age ................................ : 75 Film# .................. .:[id number] Sex ................................. : F Unsigned transcriptions are preliminary reports and do not represent a medical or legal document CT THORAX W/O CONTRAST [id number] COMPLETE:05/22/20 15:44 BEM [id number] (REASON FOR CHEST: CHF CT OF THE [...] CT dose: 685.4 mGycm Page [address] [place] [address] PHONE: [phone] FAX: [phone] Name .................. : TR Whitley Acct Number.................. : [id number] ROOM. ................. : CCU3 MR Number ................... : [id number] Stay type ............. : I/P Discharge Date......... ... : Admit Date ......... : 05/22/20 Admit Phys .................... : REY MIR Date of ....... : 1945 Family Phys ................... : CASPER Phone .................. : [phone] Age ................................ : 75 Film# .................. .:[id number] Sex ................................. : F Unsigned transcriptions are preliminary reports and do not represent a medical or legal document CT THORAX W/O CONTRAST [id number] COMPLETE:05/22/20 15:44 BEM [id number] (REASON FOR CHEST: CHF Electronically Reviewed and Signed By Robert Gilliland M.D. , 05/24/20 11:03, ORFede Transcribe Initials: DZ , Transcribe Date: 05/23/20 00:49, Dictation Date: Copy for: 002 [facility] Copy for: 710 MED REC Page 2 of 2 Name Value Range Interpretation Code Description Data Ro rce(s) Supporting Document(s) ID Date Data Source [id number] 05/24/2020 09:50:00 [place] [address] PHONE: [phone] FAX: [phone] Name .................. : TR MCKENZIEARA Gutierrez Acct Number.................. : [id number] ROOM. ................. : CCU3 Number ................... : [id number] Stay type ............. : I/P Discharge Date......... ... : Admit Date ......... : 05/22/20 Admit Phys .................... : REY BEVERLY Date of ....... : 1945 Family Phys ................... : CASPER Phone .................. : [phone] Age ................................ : 75 Film# .................. .:[id number] Sex ................................. : F Unsigned transcriptions are preliminary reports and do not represent a medical or legal document CHEST PORTABLE [id number] COMPLETE:05/22/20 17:47 [place] [id number] (REASON FOR CHEST: CHF AP PORTABLE CHEST X-RAY: FINDINGS: Pacer leads in good position. There is pulmonary venous hypertension identified. There is no definitive CHF identified. Compared to 09/22/19, the PVH is however, increased. IMPRESSION: Some increased pulmonary venous hypertension. No other definite abnormalities. Electronically Reviewed and Signed By RASHAD LIRA MD , 05/24/20 09:50, [facility] Transcribe Initials: DZ , Transcribe Date: 05/23/20 01:28, Dictation Date: Copy for: 002 [facility] Copy for: 710 [facility] REC Page 1 of 1 Name Value Range Interpretation Code Description Data Ro rce(s) Supporting Document(s) ID Date Data Source [id number] 05/24/2020 07:31:[address] [facility] Name Value Range Interpretation Code Description Data Ro rce(s) Supporting Document(s) COMPREHENSIVE METABOLIC PANEL [facility] COMPREHENSIVE METABOLIC PANEL Sodium [Moles/volume] in Serum or Plasma 138 mEq/L 134 - 153 [facility] Potassium [Moles/volume] in Serum or Plasma 5.3 mEq/L 3.6 - 5.[address] [facility] Chloride [Moles/volume] in Serum or Plasma 94 mEq/L 98 - [address] [facility] Carbon dioxide, total [Moles/volume] in Serum or Plasma 31 MEQ/L 22 - [address] [facility] Glucose [Mass/volume] in Serum or Plasma 149 MG/DL 65 - [address] [facility] BUN 70 MG/DL 7 - [address] [facility] Creatinine [Mass/volume] in Serum or Plasma 3.2 MG/DL 0.7 - 1.[address] [facility] BUN/CREAT 22 8 - 27 [facility] Protein [Mass/volume] in Serum or Plasma 6.1 G/DL 6.3 - 8.[address] [facility] Albumin [Mass/volume] in Serum or Plasma 3.6 G/DL 3.9 - 5.[address] [facility] Globulin [Mass/volume] in Serum by calculation 2.5 GM/DL 2.4 - 3.2 [facility] A/G RATIO 1.4 0.8 - 2.0 [facility] Calcium [Mass/volume] in Serum or Plasma 8.2 MG/DL 8.4 - 10.[address] [facility] Bilirubin.total [Mass/volume] in Serum or Plasma <0.7 MG/DL 0.2 - 1.3 [facility] Alkaline phosphatase [Enzymatic activity/volume] in Serum or Plasma 71 U/L 38 - 126 [facility] Aspartate aminotransferase [Enzymatic activity/volume] in Se rum or Plasma 9 U/L 5 - 40 [facility] Alanine aminotransferase [Enzymatic activity/volume] in Seru m or Plasma 10 U/L 7 - 56 [facility] Anion gap 3 in Serum or Plasma 13.0 mmol/L 8.0 - 16.0 [facility] 75 [facility] AFR AMER GFR >60 [facility] Male GFR In [...] >32 mL/min Normal ID Date Data Source [id number] 05/24/2020 06:31:[address] [facility] Name Value Range Interpretation Code Description Data Ro rce(s) Supporting Document(s) CBC W/AUTOMATED DIFF [facility] COMPLETE BLOOD COUNT Leukocytes [#/volume] in Blood by Automated count 12.0 10^3/uL 4.2 - 11.[address] [facility] Erythrocytes [#/volume] in Blood by Automated count 2.91 10^6/uL 4. 20 - 5.[address] [facility] Hemoglobin [Mass/volume] in Blood 8.8 g/dL 12.0 - 16.[address] [facility] Hematocrit [Volume Fraction] of Blood by Automated count 29.1 % 3 7.0 - 47.[address] [facility] Erythrocyte mean corpuscular volume [Entitic volume] b y Automated count 100.0 fL 81.0 - 101 [facility] Erythrocyte mean corpuscular hemoglobin [Entitic mass] by Automated count 30.2 pg 27.0 - 34.0 [facility] Erythrocyte mean corpuscular hemoglobin concentration [Mass/volume] by Automated count 30.2 g/dL 31.0 - 36.[address] [facility] Erythrocyte distribution width [Ratio] by Automated count 15.9 % 11.5 - 14.[address] [facility] Platelets [#/volume] in Blood by Automated count 265 10^3/uL 150 - [address] [facility] Platelet mean volume [Entitic volume] in Blood by Automated count 10.5 fL 7.4 - 10.[address] [facility] Neutrophils/100 leukocytes in Blood by Automated count 92.1 % 37. 0 - 80.[address] [facility] Lymphocytes/100 leukocytes in Blood by Manual count 5.3 % 25.0 - 40.[address] [facility] Monocytes/100 leukocytes in Blood by Automated count 1.7 % 3.0 - 8.[address] [facility] Eosinophils/100 leukocytes in Blood by Automated count 0.0 % 0.0 - 7.0 [facility] Basophils/100 leukocytes in Blood by Automated count 0.1 % 0.0 - 2.5 [facility] %IG 0.8 % 0.0 - 0.0 [facility] %NRBC 0.0 % 0.0 - 0.0 [facility] Neutrophils [#/volume] in Blood by Automated count 11.04 10^3/uL 2. 00 - 6.[address] [facility] Lymphocytes [#/volume] in Blood by Automated count 0.63 10^3/uL 0.60 - 3.40 [facility] Monocytes [#/volume] in Blood by Automated count 0.20 10^3/uL 0.00 - 0.90 [facility] Eosinophils [#/volume] in Blood by Automated count 0.00 10^3/uL 0.00 - 0.70 [facility] Basophils [#/volume] in Blood by Automated count 0.01 10^3/uL 0.00 - 0.20 [facility] #IG 0.10 10^3/uL 0.00 - 0.10 [facility] #NRBC 0.00 10^3/uL 0.00 - 0.00 [facility] ospital MANUAL DIFF NOT INDICATED [facility] RBC MORPH NOT INDICATED [facility] spital ID Date Data Source [id number] 05/23/2020 10:39:[address] [facility] Name Value Range Interpretation Code Description Data Ro rce(s) Supporting Document(s) Iron [Mass/volume] in Serum or Plasma 75 UG/DL 42 - 135 [facility] ID Date Data Source [id number] 05/23/2020 07:21:[address] [facility] Name Value Range Interpretation Code Description Data Ro rce(s) Supporting Document(s) COMPREHENSIVE METABOLIC PANEL [facility] COMPREHENSIVE METABOLIC PANEL Sodium [Moles/volume] in Serum or Plasma 139 mEq/L 134 - 153 [facility] Potassium [Moles/volume] in Serum or Plasma 5.3 mEq/L 3.6 - 5.[address] [facility] Chloride [Moles/volume] in Serum or Plasma 95 mEq/L 98 - [address] [facility] Carbon dioxide, total [Moles/volume] in Serum or Plasma 33 MEQ/L 22 - [address] [facility] Glucose [Mass/volume] in Serum or Plasma 160 MG/DL 65 - [address] [facility] BUN 47 MG/DL 7 - [address] [facility] Creatinine [Mass/volume] in Serum or Plasma 2.5 MG/DL 0.7 - 1.[address] [facility] BUN/CREAT 19 8 - 27 [facility] Protein [Mass/volume] in Serum or Plasma 7.0 G/DL 6.3 - 8.2 [facility] Albumin [Mass/volume] in Serum or Plasma 4.0 G/DL 3.9 - 5.0 [facility] Globulin [Mass/volume] in Serum by calculation 3.0 GM/DL 2.4 - 3.2 [facility] A/G RATIO 1.3 0.8 - 2.0 [facility] Calcium [Mass/volume] in Serum or Plasma 8.8 MG/DL 8.4 - 10.2 [facility] Bilirubin.total [Mass/volume] in Serum or Plasma <0.7 MG/DL 0.2 - 1.3 [facility] Alkaline phosphatase [Enzymatic activity/volume] in Serum or Plasma 91 U/L 38 - 126 [facility] Aspartate aminotransferase [Enzymatic activity/volume] in Serum or Plasma 21 U/L 5 - 40 [facility] Alanine aminotransferase [Enzymatic activity/volume] in Seru m or Plasma 15 U/L 7 - 56 [facility] Anion gap 3 in Serum or Plasma 11.0 mmol/L 8.0 - 16.0 [facility] AGE 75 yrs [facility] NON-AA GFR 20 mL/min [facility] AFR AMER GFR >60 [facility] Male GFR In [...] >32 mL/min Normal ID Date Data Source [id number] 05/23/2020 07:21:[address] [facility] Name Value Range Interpretation Code Description Data Ro rce(s) Supporting Document(s) CVE PANEL [facility] LIPID PANEL Cholesterol [Mass/volume] in Serum or Plasma 153 MG/DL 131 - 200 [facility] Deprecated Triglyceride [Mass/volume] in Serum or Plasma 172 MG/DL 3 5 - [address] [facility] HDL 46 MG/DL 29 - 86 [facility] Cholesterol in LDL [Mass/volume] in Serum or Plasma by Direc t assay 78 mg/dL 65 - 175 [facility] Cholesterol.total/Cholesterol in HDL [Mass Ratio] in Serum o r Plasma 3.3 3.2 - 4.4 [facility] LDL/HDL 1.70 1.47 - 3.22 [facility] CVE RISK CHOL/HDL LDL/HDLMEN: 1/2 AVERAGE 3.43 1.00 AVERAGE 4.97 3.55 2X AVERAGE 9.55 6.25 3X AVERAGE 23.99 7.99WOMEN: 1/2 AVERAGE 3.27 1.47 AVERAGE 4.44 3.22 2X AVERAGE 7.05 5.03 3X AVERAGE 11.04 6.14 ID Date Data Source [id number] 05/23/2020 07:21:[address] [facility] Name Value Range Interpretation Code Description Data Ro rce(s) Supporting Document(s) Hemoglobin A1c/Hemoglobin.total in Blood 5.0 % 4.4 - 6.1 [facility] {A1]{HB] ID Date Data Source [id number] 05/23/2020 07:01:[address] [facility] Name Value Range Interpretation Code Description Data Ro rce(s) Supporting Document(s) CBC W/AUTOMATED DIFF [facility] COMPLETE BLOOD COUNT Leukocytes [#/volume] in Blood by Automated count 5.5 10^3/uL 4.2 - [address] [facility] Erythrocytes [#/volume] in Blood by Automated count 3.27 10^6/uL 4. 20 - 5.[address] [facility] Hemoglobin [Mass/volume] in Blood 9.8 g/dL 12.0 - 16.[address] [facility] Hematocrit [Volume Fraction] of Blood by Automated count 32.4 % 3 7.0 - 47.[address] [facility] Erythrocyte mean corpuscular volume [Entitic volume] by Auto mated count 99.1 fL 81.0 - 101 [facility] Erythrocyte mean corpuscular hemoglobin [Entitic mass] by Automated count 30.0 pg 27.0 - 34.0 [facility] Erythrocyte mean corpuscular hemoglobin concentration [Mass/volume] by Automated count 30.2 g/dL 31.0 - 36.[address] [facility] Erythrocyte distribution width [Ratio] by Automated count 15.9 % 11.5 - 14.[address] [facility] Platelets [#/volume] in Blood by Automated count 281 10^3/uL 150 - [address] [facility] Platelet mean volume [Entitic volume] in Blood by Automated count 10.5 fL 7.4 - 10.[address] [facility] Neutrophils/100 leukocytes in Blood by Automated count 85.7 % 37. 0 - 80.[address] [facility] Lymphocytes/100 leukocytes in Blood by Manual count 11.4 % 25.0 - 40.[address] [facility] Monocytes/100 leukocytes in Blood by Automated count 1.3 % 3.0 - 8.[address] [facility] Eosinophils/100 leukocytes in Blood by Automated count 0.5 % 0.0 - 7.0 [facility] Basophils/100 leukocytes in Blood by Automated count 0.4 % 0.0 - 2.5 [facility] %IG 0.7 % 0.0 - 0.0 [facility] %NRBC 0.0 % 0.0 - 0.0 [facility] Neutrophils [#/volume] in Blood by Automated count 4.75 10^3/uL 2.00 - 6.90 [facility] Lymphocytes [#/volume] in Blood by Automated count 0.63 10^3/uL 0.60 - 3.40 [facility] Monocytes [#/volume] in Blood by Automated count 0.07 10^3/uL 0.00 - 0.90 [facility] Eosinophils [#/volume] in Blood by Automated count 0.03 10^3/uL 0.00 - 0.70 [facility] Basophils [#/volume] in Blood by Automated count 0.02 10^3/uL 0.00 - 0.20 [facility] #IG 0.04 10^3/uL 0.00 - 0.10 [facility] #NRBC 0.00 10^3/uL 0.00 - 0.00 [facility] MANUAL DIFF NOT INDICATED [facility] RBC MORPH NOT INDICATED [facility] spital ID Date Data Source [id number] 05/22/2020 07:58:00 PM EDT [facility] [address] [place] [address] PHONE: [phone] FAX: [phone] Name ..............: TR BENNETT [facility] Number ..........................: [id number] ROOM. ............: CCU3 Number ............................: [id number] Stay type.........: I/P Discharge Date...............: Admit Date .....: 05/22/20 Admit Phys .............................: REY BEVERLY Date of ..: 1945 Family Phys ...........................: CASPER Phone..............: [phone] Age.................................:75 Film# . ..............:[id number] Sex.................................:F Unsigned transcriptions are preliminary reports and do not represent a medical or legal document EKG [id number] COMPLETE:05/22/20 16:02 [place] [id number] Please See Scanned Results. Name Value Range Interpretation Code Description Data [facility] rce(s) Supporting Document(s) ID Date Data Source [id number] 05/22/2020 04:40:[address] [facility] Name Value Range Interpretation Code Description Data [facility] rce(s) Supporting Document(s) CBC W/AUTOMATED DIFF [facility] COMPLETE BLOOD COUNT Leukocytes [#/volume] in Blood by Automated count 12.8 10^3/uL 4.2 - 11.[address] [facility] Erythrocytes [#/volume] in Blood by Automated count 3.35 10^6/uL 4. 20 - 5.[address] [facility] Hemoglobin [Mass/volume] in Blood 10.2 g/dL 12.0 - 16.[address] [facility] Hematocrit [Volume Fraction] of Blood by Automated count 33.1 % 3 7.0 - 47.[address] [facility] Erythrocyte mean corpuscular volume [Entitic volume] by Auto mated count 98.8 fL 81.0 - 101 [facility] Erythrocyte mean corpuscular hemoglobin [Entitic mass] by Automated count 30.4 pg 27.0 - 34.0 [facility] Erythrocyte mean corpuscular hemoglobin concentration [Mass/volume] by Automated count 30.8 g/dL 31.0 - 36.[address] [facility] Erythrocyte distribution width [Ratio] by Automated count 16.0 % 11.5 - 14.[address] [facility] Platelets [#/volume] in Blood by Automated count 293 10^3/uL 150 - [address] [facility] Platelet mean volume [Entitic volume] in Blood by Automated count 9.8 fL 7.4 - 10.4 [facility] Neutrophils/100 leukocytes in Blood by Automated count 79.9 % 37. 0 - 80.0 [facility] Lymphocytes/100 leukocytes in Blood by Manual count 9.1 % 25.0 - 40.[address] [facility] Monocytes/100 leukocytes in Blood by Automated count 9.1 % 3.0 - 8.[address] [facility] Eosinophils/100 leukocytes in Blood by Automated count 0.9 % 0.0 - 7.0 [facility] Basophils/100 leukocytes in Blood by Automated count 0.5 % 0.0 - 2.5 [facility] %IG 0.5 % 0.0 - 0.0 H [facility] %NRBC 0.0 % 0.0 - 0.0 [facility] Neutrophils [#/volume] in Blood by Automated count 10.24 10^3/uL 2. 00 - 6.[address] [facility] Lymphocytes [#/volume] in Blood by Automated count 1.16 10^3/uL 0.60 - 3.40 [facility] Monocytes [#/volume] in Blood by Automated count 1.16 10^3/uL 0.00 - 0.[address] [facility] Eosinophils [#/volume] in Blood by Automated count 0.11 10^3/uL 0.00 - 0.70 [facility] Basophils [#/volume] in Blood by Automated count 0.07 10^3/uL 0.00 - 0.20 [facility] #IG 0.06 10^3/uL 0.00 - 0.10 [facility] #NRBC 0.00 10^3/uL 0.00 - 0.00 [facility] MANUAL DIFF SEE BELOW [facility] Segmented neutrophils/100 leukocytes in Blood by Manual count 73 % 37 - 80 [facility] %LYMPH 13 % 25 - 40 L [facility] %MONO 14 % 3 - 8 [facility] RBC MORPH NOT INDICATED [facility] sp[facility] ID Date Data Source [id number] 05/22/2020 04:13:[address] [facility] Name Value Range Interpretation Code Description Data Ro rce(s) Supporting Document(s) BNP >52661 PG/ML 0 - 125 H [facility] ID Date Data Source [id number] 05/22/2020 03:57:[address] [facility] Name Value Range Interpretation Code Description Data Ro rce(s) Supporting Document(s) Thyrotropin [Units/volume] in Serum or Plasma by Detec tion limit <= 0.05 mIU/L 3.67 uIU/mL 0.47 - 5.01 [facility] ID Date Data Source [id number] 05/22/2020 03:57:[address] [facility] Name Value Range Interpretation Code Description Data Ro rce(s) Supporting Document(s) Thyroxine (T4) [Mass/volume] in Serum or Plasma 8.7 UG/DL 4.5 - 12.5 [facility] ID Date Data Source [id number] 05/22/2020 03:56:[address] [facility] Name Value Range Interpretation Code Description Data Ro rce(s) Supporting Document(s) Cobalamin (Vitamin B12) [Mass/volume] in Serum or Plasma 819 PG/ML 232 - 1245 [facility] ID Date Data Source [id number] 05/22/2020 03:39:[address] [facility] Name Value Range Interpretation Code Description Data Ro rce(s) Supporting Document(s) TROPONIN T 0.15 NG/ML 0.00 - 0.10 [facility] spital CALL/ READ BACK MULUGETA PATEL ICU [facility] BY: TAD [facility] DATE/TIME [id number] [facility] TROPONIN T0.1 ng/ml Recommended as the c linical threshold value forTroponin T. ID Date Data Source [id number] 05/22/2020 03:38:00 PM EDT [facility] Value Range Interpretation Code Description Data Ro rce(s) Supporting Document(s) COMPREHENSIVE METABOLIC PANEL [facility] COMPREHENSIVE METABOLIC PANEL Sodium [Moles/volume] in Serum or Plasma 138 mEq/L 134 - 153 [facility] Potassium [Moles/volume] in Serum or Plasma 4.9 mEq/L 3.6 - 5.0 [facility] Chloride [Moles/volume] in Serum or Plasma 96 mEq/L 98 - [address] [facility] Carbon dioxide, total [Moles/volume] in Serum or Plasma 31 MEQ/L 22 - [address] [facility] Glucose [Mass/volume] in Serum or Plasma 99 MG/DL 65 - 110 [facility] BUN 40 MG/DL 7 - [address] [facility] Creatinine [Mass/volume] in Serum or Plasma 2.3 MG/DL 0.7 - 1.[address] [facility] BUN/CREAT 17 8 - 27 [facility] Protein [Mass/volume] in Serum or Plasma 7.0 G/DL 6.3 - 8.2 [facility] Albumin [Mass/volume] in Serum or Plasma 4.1 G/DL 3.9 - 5.0 [facility] Globulin [Mass/volume] in Serum by calculation 2.9 GM/DL 2.4 - 3.2 [facility] A/G RATIO 1.4 0.8 - 2.0 [facility] Calcium [Mass/volume] in Serum or Plasma 9.1 MG/DL 8.4 - 10.2 [facility] Bilirubin.total [Mass/volume] in Serum or Plasma <0.7 MG/DL 0.2 - 1.3 [facility] Alkaline phosphatase [Enzymatic activity/volume] in Serum or Plasma 92 U/L 38 - 126 [facility] Aspartate aminotransferase [Enzymatic activity/volume] in Serum or Plasma 17 U/L 5 - 40 [facility] Alanine aminotransferase [Enzymatic activity/volume] in Seru m or Plasma 7 U/L 7 - 56 [facility] Anion gap 3 in Serum or Plasma 11.0 mmol/L 8.0 - 16.0 [facility] AGE 75 yrs [facility] al NON-AA GFR 22 mL/min [facility] AFR AMER GFR >60 [facility] Male GFR In [...] >32 mL/min Normal ID Date Data Source [id number] 05/22/2020 03:36:[address] [facility] Name Value Range Interpretation Code Description Data Ro rce(s) Supporting Document(s) Iron [Mass/volume] in Serum or Plasma 87 UG/DL 42 - 135 [facility] ID Date Data Source [id number] 05/22/2020 03:35:[address] [facility] Name Value Range Interpretation Code Description Data Ro rce(s) Supporting Document(s) Magnesium [Mass/volume] in Serum or Plasma 1.8 MG/DL 1.7 - 2.2 [facility] ID Date Data Source [id number] 05/22/2020 03:14:[address] [facility] Name Value Range Interpretation Code Description Data Ro rce(s) Supporting Document(s) Lactate [Moles/volume] in Serum or Plasma 2.2 MMOL/L 0.2 - 2.2 [facility] ID Date Data Source [id number] 05/22/2020 03:00:[address] [facility] Name Value Range Interpretation Code Description Data Ro rce(s) Supporting Document(s) DORIAN TEST POSITIVE A [facility] booker FiO2 2LNC [facility] SITE RADIAL LT [facility] pH of Arterial blood 7.41 7.34 - 7.44 [facility] Carbon dioxide [Partial pressure] in Blood 46.0 mm/HG 32.0 - 42.[address] [facility] Oxygen [Partial pressure] in Blood 63.8 mm/HG 75.0 - [address] [facility] Bicarbonate [Moles/volume] in Blood 28.7 meq/L 20.0 - 24.0 H [facility] TCO2 30.1 meq/L 21.0 - 25.0 H [facility] Base excess in Blood by calculation 3.5 -2.0 - 2.[address] [facility] O2 SAT 92.5 % 95.0 - 98.0 L [facility] ital Procedure Social History No Information Vital Signs ID Date Data Source UNK Name Value Range Interpretation Code Description Data Source(s) Body height 63 [in_i] 63 [in_i] MEDENT ([facility]) 5'3" Body weight 190.00 [lb_av] 190.00 [lb_av] MEDEN T ([facility]) pt in w/c Body mass index (BMI) [Ratio] 33.7 kg/m2 33.7 k g/m2 MEDENT ([facility]) Body temperature 97.4 [degF] 97.4 [degF] MEDENT ([facility]) Systolic blood pressure 122 mm[Hg] 122 mm[Hg] M EDENT ([facility]) Diastolic blood pressure 70 mm[Hg] 70 mm[Hg] MEDENT ([facility]) Heart rate 97 /min 97 /min [facility] ([facility]) Oxygen saturation in Arterial blood by Pulse oximetry 933 % 933 % [facility] ([facility]) Body height 63 [in_i] 63 [in_i] MEDENT ([facility]) 5'3" Body weight 186.00 [lb_av] 186.00 [lb_av] MEDEN T ([facility]) Body mass index (BMI) [Ratio] 32.9 kg/m2 32.9 k g/m2 [facility] ([facility]) [place] body weight 115 [lb_av] 115 [lb_av] MEDEN T ([facility]) Body weight 84.370 kg 84.370 kg [facility] ([facility]) Body surface area Derived from formula 1.87 m2 1.87 m2 [facility] ([facility]) Systolic blood pressure 180 mm[Hg] 180 mm[Hg] M EDENT ([facility]) Body temperature 90.0 [degF] 90.0 [degF] MEDENT ([facility]) Body height 63 [in_i] 63 [in_i] MEDENT ([facility] 5'3" Body weight 169.00 [lb_av] 169.00 [lb_av] MEDEN T ([facility]) Body weight 76.658 kg 76.658 kg MEDENT ([facility]) Body mass index (BMI) [Ratio] 29.9 kg/m2 29.9 k g/m2 MEDENT ([facility]) Diastolic blood pressure 80 mm[Hg] 80 mm[Hg] MEDENT ([facility]) Heart rate 100 /min 100 /min [facility] ([facility]) Body mass index (BMI) [Ratio] 29.0 kg/m2 29.0 k g/m2 MEDENT ([facility], ) Systolic blood pressure 100 mm[Hg] 100 mm[Hg] M EDENT ([facility], ) Heart rate 60 /min 60 /min MEDENT ([facility], ) Respiratory rate 14 /min 14 /min MEDENT ( [facility]) Body height 63 [in_i] 63 [in_i] MEDENT ([facility], ) 5'3" Body weight 164.00 [lb_av] 164.00 [lb_av] MEDEN T ([facility]) [place] body weight 115 [lb_av] 115 [lb_av] MEDEN T ([facility]) Diastolic blood pressure 60 mm[Hg] 60 mm[Hg] MEDENT ([facility], ) Systolic blood pressure 134 mm[Hg] 134 mm[Hg] M EDENT ([facility]) Body height 63 [in_i] 63 [in_i] MEDENT ([facility]) 5'3" Body temperature 97.4 [degF] 97.4 [degF] MEDENT ([facility]) Diastolic blood pressure 64 mm[Hg] 64 mm[Hg] MEDENT ([facility]) Heart rate 97 /min 97 /min MEDENT ([facility]) Oxygen saturation in Arterial blood by Pulse oximetry 89 % 89 % MEDENT ([facility]) 3 l Body weight 164.00 [lb_av] 164.00 [lb_av] MEDEN T ([facility]) Body mass index (BMI) [Ratio] 29.0 kg/m2 29.0 k g/m2 MEDENT ([facility]) Body temperature 97.0 [degF] 97.0 [degF] MEDENT ([facility]) Systolic blood pressure 100 mm[Hg] 100 mm[Hg] M EDENT ([facility]) Diastolic blood pressure 54 mm[Hg] 54 mm[Hg] MEDENT ([facility]) Heart rate 87 /min 87 /min [facility] ([facility]) Oxygen saturation in Arterial blood by Pulse oximetry 96 % 96 % MEDENT ([facility]) Respiratory rate 22 /min 22 /min MEDENT ( [facility]) Body height 63 [in_i] 63 [in_i] MEDENT ([facility]) 5'3" Body weight 154.00 [lb_av] 154.00 [lb_av] MEDEN T ([facility]) Body mass index (BMI) [Ratio] 27.3 kg/m2 27.3 k g/m2 MEDENT ([facility]) Body height 63 [in_i] 63 [in_i] MEDENT ([facility]) 5'3" Body weight 153.00 [lb_av] 153.00 [lb_av] MEDEN T ([facility]) Body mass index (BMI) [Ratio] 27.1 kg/m2 27.1 k g/m2 MEDENT ([facility]) Body temperature 97.2 [degF] 97.2 [degF] MEDENT ([facility]) Systolic blood pressure 171 mm[Hg] 171 mm[Hg] EDENT ([facility]) Diastolic blood pressure 89 mm[Hg] 89 mm[Hg] MEDENT ([facility]) Heart rate 90 /min 90 /min [facility] ([facility]) Oxygen saturation in Arterial blood by Pulse oximetry 93 % 93 % MEDENT ([facility]) 3 liters Respiratory rate 22 /min 22 /min [facility] ( [facility]) ID Date Data Source [id number] 06/28/2020 09:35:[address] [facility] Name Value Range Interpretation Code Description Data Source(s) WEIGHT RECORDED 163.[address] [facility] Height [address] [facility] ID Date Data Source [id number] 06/01/2020 09:57:[address] [facility] Name Value Range Interpretation Code Description Data Source(s) WEIGHT RECORDED 158.[address] [facility] Height [address] [facility] Patient Treatment Plan of Care Planned Activity Planned Date Details Description Data Source (s) Folic Acid 1 MG Oral Tablet 04/13/2020 12:00:00 AM EDT [facility] Docusate Sodium 100 MG Oral Capsule 04/13/2020 12:00:00 AM EDT [facility]
--- NOTE | 2021-07-04 20:37 | REPVR ---
PROCEDURE INFORMATION: Exam: XR Chest Exam date and time: 07/04/2021 7:56 PM Age: 76 years old Clinical indication: Other: Dyspnea; Additional info: Dyspnea/cough TECHNIQUE: Imaging protocol: XR of the chest. Views: 1 view. COMPARISON: CR PORTABLE CHEST X-RAY 06/12/2021 4:35 PM FINDINGS: Tubes, catheters and devices: Dual lumen dialysis catheter located in the IVC/right atrium. Three lead cardiac pacer demonstrated with intact pacer wire. Lungs: Patchy infiltrates right right lower left perihilar bilateral lung. Findings may indicate multifocal pneumonitis. Changes related to fluid overload and atypical pulmonary edema to be considered as well. Apparent truncation of the left mainstem bronchus the mass. Should further evaluation desired correlation with CT suggested. Pleural spaces: Unremarkable. No pleural effusion. No pneumothorax. Heart/Mediastinum: Unremarkable. No cardiomegaly. Status post mitral valve replacement. Bones/joints: Unremarkable. IMPRESSION: 1. Patchy infiltrates right right lower left perihilar bilateral lung. Findings may indicate multifocal pneumonitis. Changes related to fluid overload and atypical pulmonary edema to be considered as well. 2. Apparent truncation of the left mainstem bronchus the mass. Should further evaluation desired correlation with CT suggested. Electronically signed by: Preston Jerez On 07/04/2021 20:37:01 PM
[2021-07-04 20:39] LABS: BASO % 0.3 % (0.0-1.0); EOS # 0.1 10^3/uL (0.0-0.5); EOS % 1.3 % (0.0-3.0); HEMATOCRIT 27.7 % (36.0-47.0); HEMOGLOBIN 8.1 g/dl (12.0-15.5); LYMPH # 0.8 10^3/uL (1.5-5.0); LYMPH % 11.2 % (24.0-44.0); MEAN CORPUSCULAR HGB CONC 29.2 g/dl (32.0-36.5); MEAN CORPUSCULAR VOLUME 109.5 fl (80.0-96.0); MONO % 13.6 % (2.0-8.0); NEUTROPHILS # 5.1 10^3/uL (1.5-8.5); NEUTROPHILS % 71.9 % (36.0-66.0); PLATELET COUNT, AUTOMATED 195 10^3/uL (150-450); RED BLOOD COUNT 2.53 10^6/uL (4.00-5.40); WHITE BLOOD COUNT 7.1 10^3/uL (4.0-10.0)
[2021-07-04 20:50] LABS: ABG BASE EXCESS 4.3 (-2.0-2.0); ABG HCO3 30.6 MEQ/L (22.0-26.0); ABG O2 SATURATION 87.6 % (95.0-99.0); ABG PARTIAL PRESSURE CO2 56.4 mmHg (35.0-45.0); ABG STANDARD HCO3 28.1 MEQ/L (22.0-26.0); ABG TOTAL CO2 32.3 MEQ/L (23.0-31.0); ABG pH (ARTERIAL) 7.352 UNITS (7.350-7.450)
[2021-07-04 21:13] LABS: ALBUMIN 2.4 GM/DL (3.2-5.2); ALT/SGPT 28 U/L (12-78); BILIRUBIN,DIRECT < 0.1 MG/DL (0.0-0.2); BILIRUBIN,TOTAL 0.2 MG/DL (0.2-1.0); BLOOD UREA NITROGEN 35 MG/DL (7-18); CALCIUM LEVEL 8.7 MG/DL (8.8-10.2); CARBON DIOXIDE LEVEL 36 MEQ/L (21-32); CHLORIDE LEVEL 101 MEQ/L (98-107); CK-MB VALUE MASS 1.9 NG/ML (<3.6); CPK CREATINE PHOSPHOKINASE 38 U/L (26-192); CREATININE FOR GFR 2.99 MG/DL (0.55-1.30); GLOMERULAR FILTRATION RATE 16.3 (>39); GLUCOSE, FASTING 112 MG/DL (70-100); POTASSIUM SERUM 4.2 MEQ/L (3.5-5.1); SODIUM LEVEL 139 MEQ/L (136-145); TOTAL PROTEIN 5.9 GM/DL (6.4-8.2); TROPONIN I < 0.02 NG/ML (< 0.10)
[2021-07-04] MEDS ORDERED: cefTRIAXone SOD 2 GM in D5W MINI-BAG PLUS 50 ML IV ONE (21:25)
--- NOTE | 2021-07-04 22:16 | HPEPDOC ---
General Date of Admission Jul 04, 2021 at 21:55 Date of Service: Jul 04, 2021 Attending Physician: COLETTE BUENROSTRO MD Chief Complaint The patient is a 76-year-old female admitted with a reason for visit of Dyspnea. History of Present Illness History of present illness: Mrs. Montanez is a 76 year old female who presented to the Emergency department for worsening shortness of breath that started after hemodialysis one day prior. She states that she has felt consistently short of breath and weak since being discharged from [facility] on 06/20/21 for COVID pneumonia. She decided to call an ambulance today because she could not catch her breath and "felt like she had no energy". Over the last week she has noticed an increase in her sputum production (5-6tsp/day) and a change in the color to dark yellow. She reports having alternating episodes of feeling very warm and then cold. She has been using her albuterol MDI and nebulizer treatments more than usual. She reports having PND and orthopnea as well as chronic swelling in her ankles. She denies chest pain or palpitations. In the ED she was found to have multifocal lung infiltrates on imaging and met sepsis criteria. Past medical history: Obesity Tobacco dependence COPD COVID pneumonia Chronic hypercapnic respiratory failure Hypertension Type 2 Diabetes Mellitus Coronary artery disease Congestive heart failure Chronic Kidney disease History of secondary hyperparathyroidism History of anemia GERD CATHRYN Past surgical history: Watchman left atrial appendage closure implant 2019 Pacemaker Implant - 2014 Hysterectomy - 1976 Removal of Gallbladder - 1967 Appendectomy - 1967 Femoral-Femoral - 2002 Social history: Patient is a former smoker: quit on 03/16/20. Smoked 1ppd since age 17 Patient drinks ETOH occasionally Patient denies illicit drug use She lives with her daughter in [place] Allergies: see below Review of systems: General: patient admits to subject fevers and chills, occasional daytime sweating, fatigue, weakness HEENT: denies changes in vision or hearing, difficulty swallowing, swollen glands Cardiovascular: denies chest pain or palpitations. Admits orthopnea and PND Pulmonary: admits to increasingly worsening shortness of breath, chronic cough, increased sputum production and color change, Abdomen: denies nausea, vomiting, diarrhea, constipation, blood in stool/urine Extremities: admits to chronic ankle swelling Skin: denies easy bruising or bleeding Physical examination: General: An elderly female sitting back in bed, she appears dyspneic but is not in a tripod position. She is able to speak in 4 word sentences. HEENT: PERRLA, EOMI, mucous membranes appear mildly dry, no lymphadenopathy, neck is supple Cardiovascular: regular rate and rhythm, no murmurs or gallops noted. Pulses 2+ throughout, was unable to palpate dorsalis pedis, capillary refill <2 seconds Pulmonary: diminished are intake bilaterally, mild end expiratory wheezes heard throughout, scattered rales present, rhonchi present prior to coughing. Abdomen: obese, soft, nontender to palpation, positive bowel sounds Extremities: 2+ pitting edema noted to knees bilaterally, no cyanosis Skin: warm and dry Psych: alert and oriented x 4 Imaging: Chest x-ray 07/04/21: IMPRESSION: Patchy infiltrates right right lower left perihilar bilateral lung. Findings may indicate multifocal pneumonitis. Changes related to fluid overload and atypical pulmonary edema to be considered as well. Apparent truncation of the left mainstem bronchus mass. Should further evaluation desired correlation with CT suggested. Chest CT 07/04/21: IMPRESSION: No identifiable lung mass. Multifocal lung infiltrates new since the CT from June 09, 2021 suggesting an atypical pneumonia such as COVID-19 or other viral process Mild dilatation of the thoracic aorta the diaphragmatic hiatus level measuring 3.5 cm Assessment:Mrs. Montanez is a 76 year old female who presented to the Emergency department for worsening shortness of breath that started one day prior after hemodialysis. In the ED she was found to have multifocal lung infiltrates on imaging and met sepsis criteria. She is being admitted for treatment of pneumonia, copd exacerbation, and sepsis. Plan: Pneumonia atypical vs community acquired -Multifocal lung infiltrate seen on imaging suggestive of an atypical pneumonia likely of viral origin -Mycoplasma, chlamydia, legionella, strep pneumonia, respiratory panel pending -MRSA PCR pending, can deescalate vancomycin once culture sensitivities result -started patient on broad spectrum coverage (zosyn vancomycin) until culture sensitivities result. -CURB 65 score 2 points moderate risk group -Rapid COVID (nadine) negative in ED -afebrile, WBC 7.1 Acute on chronic copd exacerbation -clinically diagnosed by worsening shortness of breath, increased sputum production, and sputum color change -oxygen saturation 93% on 3L O2, patient is on 3L at home -imaging results as above -started 125mg solumedrol once, will continue Prednisone po 40mg x 4 days -started albuterol nebulizer [id number] prn Sepsis: -patient meets sepsis criteria: HR >90, RR>20, suspected/known source of infection. -patient has bilateral lower ext edema, will start patient on maintenance fluids. Mucous membranes appear dry on PE. We do not want to fluid overload her with her history of CHF. -BNP ordered -afebrile, WBC 7.1 -lactic acid 1.0 ESRD -patient is on a Fri//Fri hemodialysis schedule -Permcath placement 06/12/21, started HD on 06/12/21 -Creatinine 2.99 below baseline -BUN 35 below baseline -Nephrology consult placed Chronic hypercapnic respiratory failure -ABG: pCO2 56, pH:7.3 -will order repeat ABG tomorrow if it is clinically warranted Hypertension -patient is normotensive -continue home medications Type 2 Diabetes Mellitus -BG 112 -started sliding scale insulin with hypoglycemic protocol -FSBG AC/HS Coronary artery disease -EKG exhibited AV dual paced rhythm -Prolonged QT interval -patient denies any chest pain -continue atorvastatin Congestive heart failure -BNP pending -patient has 2+ pitting edema bilaterally of LE, this is chronic -Echocardiogram 06/11/21: poor quality History of secondary hyperparathyroidism -continue calcitriol History of anemia -Hemoglobin is 8.1 will continue to monitor and transfuse as needed GERD -continue pantoprazole Obesity -BMI 32.9 DVT prophylaxis: -continue heparin Disposition: Will continue to treat patient with IV antibiotics and steroids. Will monitor her respiratory function and observe for clinical improvement. Lab results pending. Patient is unsure whether she would like to be DNR/DNR, she would like to fill out a MOLST form in the AM and discuss goals of care. Home Medications Scheduled Albuterol Sulf (Albuterol Sulfate) 2.5 Mg/3 Ml Vial.neb, 2.5 MG INH QID, (Reported) Allopurinol (Allopurinol) 100 Mg Tablet, 100 MG PO DAILY, (Reported) Amiodarone HCl (Amiodarone HCl) 200 Mg Tablet, 200 MG PO DAILY, (Reported) Atorvastatin Calcium (Atorvastatin Calcium) 20 Mg Tablet, 20 MG PO DAILY, (Repo rted) Calcitriol (Calcitriol) 0.25 Mcg Capsule, 0.25 MCG PO DAILY, (Reported) Calcium Carbonate (Calcium) 600 Mg Tablet, 600 MG PO BID, (Reported) Cholecalciferol (Vitamin D3) (Vitamin D3) 1,000 Unit Tablet, 1,000 UNITS PO QPM, (Reported) TAKES AT 1600 Ferrous Sulfate (Ferrous Sulfate) 325 Mg Tablet, 325 MG PO BID, (Reported) Fluticasone/Vilanterol (Breo Ellipta 200-25 Mcg INH) 1 Each Blst.w.dev, 1 PUFF INH DAILY, (Reported) Folic Acid (Folic Acid) 1 Mg Tablet, 1 MG PO DAILY, (Reported) Furosemide (Furosemide) 40 Mg Tablet, 80 MG PO DAILY, (Reported) Glipizide (Glipizide ER) 2.5 Mg Tab.er.24, 2.5 MG PO DAILY, (Reported) Magnesium Oxide (Magnesium Oxide) 400 Mg Tablet, 400 MG PO QPM, (Reported) TAKES AT 1600 Pantoprazole Sodium (Pantoprazole Sodium) 40 Mg Tablet.dr, 40 MG PO DAILY, (Reported) Raloxifene HCl (Raloxifene HCl) 60 Mg Tablet, 60 MG PO DAILY, (Reported) Sitagliptin (Januvia) 50 Mg Tablet, 50 MG PO DAILY, (Reported) dilTIAZem HCl (Diltiazem 24Hr Cd) 120 Mg Cap.er.24h, 120 MG PO DAILY, (Reported) Scheduled PRN Albuterol Sulfate (Ventolin Hfa) 18 Gm Hfa.aer.ad, 2 PUFFS INH Q6H PRN for SOB/WHEEZING, (Reported) Allergies Coded Allergies: codeine (Verified Adverse Reaction, Intermediate, stabbing abd pain, 11/30/20) phenytoin (Verified Adverse Reaction, Intermediate, feels like being stabbed in abd, 11/30/20) gabapentin (Verified Adverse Reaction, Mild, VERTIGO, 11/30/20) oxycodone (Verified Adverse Reaction, Mild, SHAKINESS, 11/30/20) A-FIB/CHADSVASC A-FIB History Current/History of A-Fib/PAF?: No Current PO Anticoag Therapy: No Vital Signs Vital Signs Date Time Temp Pulse Resp B/P (MAP) Pulse Ox O2 Delivery O2 Flow Rate FiO2 07/04/21 20:47 Nasal Cannula 07/04/21 20:47 85 20 90 4.0 07/04/21 20:30 129/70 (89) 07/04/21 19:30 99.3 Laboratory Data Labs 24H Laboratory Tests 2 07/04/21 20:11: Immature Granulocyte % (Auto) 1.7, Neutrophils (%) (Auto) 71.9H, Lymphocytes (%) (Auto) 11.2L, Monocytes (%) (Auto) 13.6H, Eosinophils (%) (Auto) 1.3, Basophils (%) (Auto) 0.3, Neutrophils # (Auto) 5.1, Lymphocytes # (Auto) 0.8L, Monocytes # (Auto) 1.0H, Eosinophils # (Auto) 0.1, Basophils # (Auto) 0.0, Nucleated Red Blood Cells % (auto) 0.3H, Anion Gap 2L, Glomerular Filtration Rate 16.3L, Lactic Acid Level 1.0, Calcium Level 8.7L, Total Bilirubin 0.2, Direct Bilirubin < 0.1, Aspartate Amino Transf (AST/SGOT) 22, Alanine Aminotransferase (ALT/SGPT) 28, Alkaline Phosphatase 74, Total Creatine Kinase 38, Creatine Kinase MB 1.9, Creatine Kinase MB Relative Index 5.00H, Troponin I < 0.02, Total Protein 5.9L, Albumin 2.4L, Albumin/Globulin Ratio 0.7L 07/04/21 20:26: Blood Gas Bicarbonate Standard 28.1H, Arterial Blood pH 7.352, Arterial Blood Partial Pressure CO2 56.4H, Arterial Blood Partial Pressure O2 56.0L, Arterial Blood Total CO2 32.3H, Arterial Blood HCO3 30.6H, Arterial Blood Base Excess 4.3H, Arterial Blood Oxygen Saturation 87.6L CBC/BMP Laboratory Tests 07/04/21 20:11 Microbiology Microbiology 07/04/21 Blood Culture, Received Pending 07/04/21 Blood Culture, Received Pending Plan / VTE VTE Prophylaxis Ordered?: Yes GME ATTESTATION GME ATTESTATION My faculty preceptor for this patient encounter was physically present during the encounter and was fully available. All aspects of the patient interview, examination, medical decision making process, and medical care plan development were reviewed and approved by the faculty preceptor. The faculty preceptor is aw are and concurs with the plan as stated in the body of this note and will attest to such by his/her cosignature. ATTENDING NOTE Time of service 1040PM I independently examined the patient, discussed the case with , reviewed the note and agree with the findings as documented. is a 76 yr old w a hx of chronic HFpEF, pacemaker, NIDDM, HTN, CKD4, emphysema, class 1 obesity & CATHRYN who is admitted for sepsis 2/2 possibly pneumonia & acute COPD. rest per 's H&P AMANDA RIVERA DO Jul 04, 2021 22:16 COLETTE BUENROSTRO MD Jul 05, 2021 05:01
--- OUTSIDE RECORDS SUMMARY | 2021-07-04 22:23 | CCD ---
Author Author [facility] Organization [facility] Address Unknown Phone Unavailable Care Team Providers Care Operations Research Analyst Name Role Phone Toney, L Priscilla AG SERVICE MANAGER Unavailable Unavailable Toney, L Priscilla AG SERVICE MANAGER Unavailable Unavailable Toney, L Priscilla AG SERVICE MANAGER Unavailable Unavailable Toney, L Priscilla AG SERVICE MANAGER Unavailable Unavailable Toney, L Priscilla AG SERVICE MANAGER Unavailable Unavailable Toney, L Priscilla AG SERVICE MANAGER Unavailable Unavailable Toney, L Priscilla AG SERVICE MANAGER Unavailable Unavailable Toney, L Priscilla AG SERVICE MANAGER Unavailable Unavailable Toney, L Priscilla AG SERVICE MANAGER Unavailable Unavailable Toney, L Priscilla AG SERVICE MANAGER Unavailable Unavailable Toney, L Priscilla AG SERVICE MANAGER Unavailable Unavailable Toney, L Priscilla AG SERVICE MANAGER Unavailable Unavailable Toney, L Priscilla AG SERVICE MANAGER Unavailable Unavailable Toney, L Priscilla AG SERVICE MANAGER Unavailable Unavailable Toney, L Priscilla AG SERVICE MANAGER Unavailable Unavailable Toney, L Priscilla AG SERVICE MANAGER Unavailable Unavailable Toney, L Priscilla AG SERVICE MANAGER Unavailable Unavailable Toney, L Priscilla AG SERVICE MANAGER Unavailable Unavailable Toney, L Priscilla AG SERVICE MANAGER Unavailable Unavailable Toney, L Priscilla AG SERVICE MANAGER Unavailable Unavailable Toney, L Priscilla AG SERVICE MANAGER Unavailable Unavailable Toney, L Priscilla AG SERVICE MANAGER Unavailable Unavailable Toney, L Priscilla AG SERVICE MANAGER Unavailable Unavailable Toney, L Priscilla AG SERVICE MANAGER Unavailable Unavailable Toney, L Priscilla AG SERVICE MANAGER Unavailable Unavailable KIRSCHMAN, L DANYA AG SERVICE MANAGER Unavailable Unavailable KIRSCHMAN, L DANYA AG SERVICE MANAGER Unavailable Unavailable KIRSCHMAN, L DANYA AG SERVICE MANAGER Unavailable Unavailable KIRSCHMAN, L DANYA AG SERVICE MANAGER Unavailable Unavailable KIRSCHMAN, L DANYA AG SERVICE MANAGER Unavailable Unavailable KIRSCHMAN, L DANYA AG SERVICE MANAGER Unavailable Unavailable KIRSCHMAN, L DANYA AG SERVICE MANAGER Unavailable Unavailable KIRSCHMAN, L DANYA AG SERVICE MANAGER Unavailable Unavailable KIRSCHMAN, L DANYA AG SERVICE MANAGER Unavailable Unavailable KIRSCHMAN, L DANYA AG SERVICE MANAGER Unavailable Unavailable KIRSCHMAN, L DANYA AG SERVICE MANAGER Unavailable Unavailable KIRSCHMAN, L DANYA AG SERVICE MANAGER Unavailable Unavailable KIRSCHMAN, L DANYA AG SERVICE MANAGER Unavailable Unavailable KIRSCHMAN, L DANYA AG SERVICE MANAGER Unavailable Unavailable KIRSCHMAN, L DANYA AG SERVICE MANAGER Unavailable Unavailable KIRSCHMAN, L DANYA AG SERVICE MANAGER Unavailable Unavailable KIRSCHMAN, L DANYA AG SERVICE MANAGER Unavailable Unavailable KIRSCHMAN, L DANYA AG SERVICE MANAGER Unavailable Unavailable KIRSCHMAN, L DANYA AG SERVICE MANAGER Unavailable Unavailable KIRSCHMAN, L DANYA AG SERVICE MANAGER Unavailable Unavailable KIRSCHMAN, L DANYA AG SERVICE MANAGER Unavailable Unavailable KIRSCHMAN, L DANYA AG SERVICE MANAGER Unavailable Unavailable KIRSCHMAN, L DANYA AG SERVICE MANAGER Unavailable Unavailable KIRSCHMAN, L DANYA AG SERVICE MANAGER Unavailable Unavailable KIRSCHMAN, L DANYA AG SERVICE MANAGER Unavailable Unavailable KIRSCHMAN, L DANYA AG SERVICE MANAGER Unavailable Unavailable KIRSCHMAN, L DANYA AG SERVICE MANAGER Unavailable Unavailable KIRSCHMAN, L DANYA AG SERVICE MANAGER Unavailable Unavailable KIRSCHMAN, L DANYA AG SERVICE MANAGER Unavailable Unavailable KIRSCHMAN, L DANYA AG SERVICE MANAGER Unavailable Unavailable KIRSCHMAN, L DANYA AG SERVICE MANAGER Unavailable Unavailable KIRSCHMAN, L DANYA AG SERVICE MANAGER Unavailable Unavailable KIRSCHMAN, L DANYA AG SERVICE MANAGER Unavailable Unavailable KIRSCHMAN, L DANYA AG SERVICE MANAGER Unavailable Unavailable KIRSCHMAN, L DANYA AG SERVICE MANAGER Unavailable Unavailable KIRSCHMAN, L DANYA AG SERVICE MANAGER Unavailable Unavailable KIRSCHMAN, L DANYA AG SERVICE MANAGER Unavailable Unavailable KIRSCHMAN, L DANYA AG SERVICE MANAGER Unavailable Unavailable KIRSCHMAN, L DANYA AG SERVICE MANAGER Unavailable Unavailable KIRSCHMAN, L DANYA AG SERVICE MANAGER Unavailable Unavailable KIRSCHMAN, L DANYA AG SERVICE MANAGER Unavailable Unavailable KIRSCHMAN, L DANYA AG SERVICE MANAGER Unavailable Unavailable KIRSCHMAN, L DANYA AG SERVICE MANAGER Unavailable Unavailable KIRSCHMAN, L DANYA AG SERVICE MANAGER Unavailable Unavailable KIRSCHMAN, L DANYA AG SERVICE MANAGER Unavailable Unavailable KIRSCHMAN, L DANYA AG SERVICE MANAGER Unavailable Unavailable KIRSCHMAN, L DANYA AG SERVICE MANAGER Unavailable Unavailable Fish, [facility], PA-C Unavailable Unavailabl e Fish, [facility], PA-C Unavailable Unavailabl e Fish, [facility], PA-C Unavailable Unavailabl e Fish, [facility], PA-C Unavailable Unavailabl e Fish, [facility], PA-C Unavailable Unavailabl e Fish, [facility], PA-C Unavailable Unavailabl e Fish, [facility], PA-C Unavailable Unavailabl e Fish, [facility], PA-C Unavailable Unavailabl e Fish, [facility], PA-C Unavailable Unavailabl e Fish, [facility], PA-C Unavailable Unavailabl e Fish, [facility], PA-C Unavailable Unavailabl e Fish, [facility], PA-C Unavailable Unavailabl e Fish, [facility], PA-C Unavailable Unavailabl e Fish, [facility], PA-C Unavailable Unavailabl e Fish, [facility], PA-C Unavailable Unavailabl e Fish, [facility], PA-C Unavailable Unavailabl e Fish, [facility], PA-C Unavailable Unavailabl e Fish, [facility], PA-C Unavailable Unavailabl e Fish, [facility], PA-C Unavailable Unavailabl e Fish, [facility], PA-C Unavailable Unavailabl e Fish, [facility], PA-C Unavailable Unavailabl e Fish, [facility], PA-C Unavailable Unavailabl e Fish, [facility], PA-C Unavailable Unavailabl e Fish, [facility], PA-C Unavailable Unavailabl e Fish, [facility], PA-C Unavailable Unavailabl e Fish, [facility], PA-C Unavailable Unavailabl e Fish, [facility], PA-C Unavailable Unavailabl e Fish, [facility], PA-C Unavailable Unavailabl e Fish, [facility], PA-C Unavailable Unavailabl e Fish, [facility], PA-C Unavailable Unavailabl e Fish, [facility], PA-C Unavailable Unavailabl e Fish, [facility]available Unavailabl e Fish, [facility], PA-C Unavailable Unavailabl e Fish, [facility] Unavailable Unavailabl e Fish, [facility] Unavailable Unavailabl e Fish, [facility] Unavailable Unavailabl e KIRSCHMAN, L DANYA AG SERVICE MANAGER Unavailable Unavailable KIRSCHMAN, L DANYA AG SERVICE MANAGER Unavailable Unavailable KIRSCHMAN, L DANYA AG SERVICE MANAGER Unavailable Unavailable KIRSCHMAN, L DANYA AG SERVICE MANAGER Unavailable Unavailable KIRSCHMAN, L DANYA AG SERVICE MANAGER Unavailable Unavailable KIRSCHMAN, L DANYA AG SERVICE MANAGER Unavailable Unavailable KIRSCHMAN, L DANYA AG SERVICE MANAGER Unavailable Unavailable KIRSCHMAN, L DANYA AG SERVICE MANAGER Unavailable Unavailable KIRSCHMAN, L DANYA AG SERVICE MANAGER Unavailable Unavailable KIRSCHMAN, L DANYA AG SERVICE MANAGER Unavailable Unavailable KIRSCHMAN, L DANYA AG SERVICE MANAGER Unavailable Unavailable KIRSCHMAN, L DANYA AG SERVICE MANAGER Unavailable Unavailable KIRSCHMAN, L DANYA AG SERVICE MANAGER Unavailable Unavailable KIRSCHMAN, L DANYA AG SERVICE MANAGER Unavailable Unavailable KIRSCHMAN, L DANYA AG SERVICE MANAGER Unavailable Unavailable KIRSCHMAN, L DANYA AG SERVICE MANAGER Unavailable Unavailable KIRSCHMAN, L DANYA AG SERVICE MANAGER Unavailable Unavailable KIRSCHMAN, L DANYA AG SERVICE MANAGER Unavailable Unavailable KIRSCHMAN, L DANYA AG SERVICE MANAGER Unavailable Unavailable KIRSCHMAN, L DANYA AG SERVICE MANAGER Unavailable Unavailable KIRSCHMAN, L DANYA AG SERVICE MANAGER Unavailable Unavailable KIRSCHMAN, L DANYA AG SERVICE MANAGER Unavailable Unavailable KIRSCHMAN, L DANYA AG SERVICE MANAGER Unavailable Unavailable KIRSCHMAN, L DANYA AG SERVICE MANAGER Unavailable Unavailable KIRSCHMAN, L DANYA AG SERVICE MANAGER Unavailable Unavailable KIRSCHMAN, L DANYA AG SERVICE MANAGER Unavailable Unavailable KIRSCHMAN, L DANYA AG SERVICE MANAGER Unavailable Unavailable KIRSCHMAN, L DANYA AG SERVICE MANAGER Unavailable Unavailable KIRSCHMAN, L DANYA AG SERVICE MANAGER Unavailable Unavailable KIRSCHMAN, L DANYA AG SERVICE MANAGER Unavailable Unavailable KIRSCHMAN, L DANYA AG SERVICE MANAGER Unavailable Unavailable KIRSCHMAN, L DNAYA AG SERVICE MANAGER Unavailable Unavailable KIRSCHMAN, L DANYA AG SERVICE MANAGER Unavailable Unavailable KIRSCHMAN, L DANYA AG SERVICE MANAGER Unavailable Unavailable KIRSCHMAN, L DANYA AG SERVICE MANAGER Unavailable Unavailable KIRSCHMAN, L DANYA AG SERVICE MANAGER Unavailable Unavailable KIRSCHMAN, L DANYA AG SERVICE MANAGER Unavailable Unavailable KIRSCHMAN, L DANYA AG SERVICE MANAGER Unavailable Unavailable KIRSCHMAN, L DANYA AG SERVICE MANAGER Unavailable Unavailable KIRSCHMAN, L DANYA AG SERVICE MANAGER Unavailable Unavailable KIRSCHMAN, L DANYA AG SERVICE MANAGER Unavailable Unavailable KIRSCHMAN, L DANYA AG SERVICE MANAGER Unavailable Unavailable KIRSCHMAN, L DANYA AG SERVICE MANAGER Unavailable Unavailable KIRSCHMAN, L DANYA AG SERVICE MANAGER Unavailable Unavailable KIRSCHMAN, L DANYA AG SERVICE MANAGER Unavailable Unavailable KIRSCHMAN, L DANYA AG SERVICE MANAGER Unavailable Unavailable KIRSCHMAN, L DANYA AG SERVICE MANAGER Unavailable Unavailable NED, L FARRUKH MD Unavailable Unavailable NED, L FARRUKH MD Unavailable Unavailable END, L FARRUKH MD Unavailable Unavailable NED, L [...] Marianela HELMS MD Unavailable Unavailable SEMEL, Marianela HLEMS MD Unavailable Unavailable SEMEL, Marianela HELMS MD [...] Marianela HELMS MD Unavailable Unavailable SEMEL, Marianela HLEMS MD Unavailable Unavailable SEMEL, Marianela HELMS MD [...] SEMEL, Marianela HELMS MD Unavailable Unavailable SEMEL, Mraianela HELMS MD Unavailable Unavailable SEMEL, Marianela HELMS [...] is protected by Article 27-F of the [facility] Public Health law. If you continue you may have access to information: Regarding HIV / AIDS; Provided by facilities licensed or operated by the [facility] Office of Mental Health; or Provided by the [facility] Office for People With Developmental Disabilities. If such information is present, then the following [facility] mandated warning applies: This information has [...] law may result in a fine or fpc sentence or both. A general authorization for the release of medical or other information is NOT sufficient authorization for further disc losure. Allergies and Adverse Reactions Type Description Substance Reaction Status Data Source(s ) Drug allergy DILANTIN DILANTIN STOMACH PAIN [facility] Drug allergy CODEINE CODEINE STOMACH PAIN [facility] Family History Family Member Name Family Member Gender Family Member Status Date o f Status Description Data Source(s) Unknown Male Problem [facility] ([facility]) () - in neck Unknown Female Problem [facility] ([facility]) Unknown Female Problem [facility] ([facility]) Unknown Female Problem [facility] ([facility]) Unknown Female Problem [facility] ([facility]) Unknown Female Problem [facility] ([facility]) Encounters Encounter Providers Location Date Indications Data Source(s ) Outpatient Attender: SAM Neff/Patricia/Damon/Re indl 06/12/2021 09:00:00 AM EDT [facility] Office Visit Attender: Marly MIKE PA-C Physical Therapy 06/01/2021 05:15:00 PM EDT [facility] ([facility] ) Office Visit Attender: Marly MIKE PA-C Physical Therapy 05/25/2021 09:45:00 AM EDT [facility] ([facility] ) OFFICE OUTPATIENT VISIT 15 MINUTES Attender: Marly MIKE PA-C Physical Therapy 05/09/2021 10:15:00 AM EDT [facility] ([facility] ) Outpatient Attender: Priscilla Neff/Patricia/Damon/Reindl 04/17/2021 10:00:00 AM EDT [facility] ([facility] Emergency Attender: FARRUKH CASH MDConsultant: DANYA STONE AG SERVICE MANAGER 04/12/2021 11:40:00 AM EDT - 04/12/2021 03:47:00 PM EDT [facility] Patient discharged. Outpatient Attender: SCOOTER QUINONES MD Main Office 03/23/2021 02:45:0 0 PM EDT [facility] ([facility]) Outpatient Referrer: SCOOTER QUINONES MD 2021 11:21:22 AM EDT [facility] Office Visit Attender: Haider Sommer MD Main office [facility] 01/03/2021 02:15:00 PM EDT [facility] ([facility] ) Outpatient Attender: Haider Sommer MDConsultant: DANYA WATERMAN AG SERVICE MANAGER 12/18/2020 10:38:00 AM EDT - 12/18/2020 11:38:00 AM EDT [facility] Patient discharged. Emergency Attender: CHIOMA BLACKBURNConsultant: DANYA STONE AG SERVICE MANAGER 11/27/2020 03:26:00 PM EDT - 11/27/2020 05:44:00 PM EDT [facility] Patient discharged. Outpatient Attender: Marly MIKE PA-C Physical Therapy 11/16/2020 10:15:00 AM EST [facility] ([facility]) Outpatient Attender: Haider Sommer MD Main office - [place] 11/16/2020 08:30:00 AM EST [facility] ([facility]) Outpatient Attender: DANYA JETT NP Medical [facility] 09:30:00 AM EST [facility] ([facility]) Outpatient Attender: SILVER PETERSON MDConsultant: DANYA STONE NP 09/12/2020 01:20:00 PM EST - 09/12/2020 02:20:00 PM [facility] Outpatient Attender: SILVER PETERSON MDConsultant: DANYA STONE NP 08/09/2020 02:27:00 PM EST - 08/09/2020 03:27:00 PM [facility] Outpatient Attender: SILVER PETERSON MD Medical [facility] 08/09 12:30:00 PM EST [facility] ([facility]) Outpatient Attender: DANYA JETT NP [facility] 09:15:00 AM EST [facility] ([facility]) Outpatient Attender: SILVER PETERSON MD [facility] 06/28 02:00:00 PM EDT [facility] ([facility]) Inpatient Attender: SILVER PETERSON MDConsultant: DANYA STONE NP 05/28/2020 12:30:00 PM EDT - 06/13/2020 11:02:00 AM EDT [facility] Patient discharged. Inpatient Attender: SILVER PETERSON MDConsultant: DANYA STONE NP 05/22/2020 02:00:00 PM EDT - 05/28/2020 11:00:00 AM EDT [facility] Patient discharged. Outpatient Attender: SILVER PETERSON MDConsultant: DANYA STONE NP 05/01/2020 05:05:00 PM EDT - 05/01/2020 06:05:00 PM EDT [facility] Immunizations Vaccine Date Status Description Data Source(s) COVID-19 VACCINE Connor 11/22/2020 12:00:00 AM EDT completed [facility] Vaccine Series Complete: YESThis Data wa s Submitted to [facility] Via [facility]. Medications Medication Brand Name Start Date Product Form Dose Route Admi nistrative Instructions Pharmacy Instructions Status Indications Reaction Description Data Source(s) 2 ML Sodium Hyaluronate 10 MG/ML Prefilled Syringe [Euflexxa ] Euflexxa 05/25/2021 12:00:00 AM EDT active MED[facility] ([facility]) 30 ACTUAT fluticasone furoate 0.2 MG/ACT UAT / vilanterol 0.025 MG/ACTUAT Dry Powder Inhaler [Breo] Breo Ellipta 04/17/2021 12:00:00 AM EDT OR AL active [facility] ([facility]) Accu-Chek Gisele Plus 03/21/2021 12:00:00 AM EDT active [facility] ([facility]) Lidocaine 0.05 MG/MG Topical Ointment Lidocaine 12/12/2020 12:00:00 AM EDT active [facility] ([facility]) Covid-19 vaccine, Unspecified 11/22/2020 12:00:00 AM EDT completed [facility] ([facility]) Medication administered onsite sacubitril 24 MG / valsartan 26 MG Oral Tablet [Entresto] En tresto 11/01/2020 12:00:00 AM EST active M EDENT ([facility]) Calcitriol 0.52885 MG Oral Capsule Calcitriol 09/12/2020 12:00:00 AM [...] times a day Hold for loose stools [facility] Folic Acid 1 MG Oral Tablet folic acid (FOLVITE) 1 MG tablet folic acid (FOLVITE) 1 MG tablet 04/13/2020 12:00:00 AM EDT 1 mg Oral active Take 1 tablet (1 mg total) by mouth daily [facility] Insurance Providers Payer name Policy type / Coverage type Policy ID Covered constitution party ID Covered constitution party's relationship to vance Policy Vance Plan Information Ghi FHP-(DO Not Use) Medigap Part B [id number] Self 0 [id number] Ghi FHP-(DO Not Use) Medigap Part B [id number] Self 0 [id number] Ghi FHP-(DO Not Use) Medigap Part B [id number] Self 0 [id number] Ghi FHP-(DO Not Use) Medigap Part B [id number] Self Ghi FHP-(DO Not Use) Medigap Part B [id number] Self 0 [id number] Ghi FHP-(DO Not Use) Medigap Part B [id number] Self 0 [id number] Ghi FHP-(DO Not Use) Medigap Part B [id number] Self 0 [id number] UHC UNITED MEDICARE COMPLETE [id number] Self [id number] MEDICARE [id number] [facility] [id number] Medicare [place] Med[place]ap Part B [id number] Self 0 [id number] [facility] [id number] [id number] Self [id number] [facility] [id number] [id number] Self Medicare [place] Medigap Part B [id number] Self 0 [id number] Medicare [place] Medigap Part B [id number] Self 0 [id number] Medicare [place] Medigap Part B [id number] Self 0 [id number] Medicare [place] Med[place]ap Part B [id number] Self 0 [id number] Medicare [place] Medigap Part B [id number] Self 0 [id number] [facility] [id number] Self [id number] Medicare Advantage [facility] [id number] Self UHC UNITED MEDICARE COMPLETE G [id number] Self [id number] [facility] ([facility]) Commercial [id number] Self [id number] [facility] ([facility]) Medigap Part B [id number] Self [id number] [facility] ([facility]) [facility] Part B [id number] Self [id number] [facility] ([facility]) Commercial [id number] Self [id number] [facility] ([facility]) Commercial [id number] Self [id number] [facility] ([facility]) [facility] Part B [id number] Self [id number] [employer]IONS [id number] SP [id number] AMER PROG TOD[employer] OPTIONS G [id number] Self [id number] WELLCARE [id number] SP [id number] WELLCARE [id number] SP [id number] WELLCARE [id number] SP [id number] WELLCARE MEDICARE [id number] xxxxxxxxx [id number] WELLCARE MEDICARE [id number] Mahsa [id number] WELLCARE MEDICARE [id number] Mahsa [id number] INSURANCE COVID-19 COVID Mahsa C OVID [employer] Commercial [id number] Self [id number] [facility] [id number] SP [id number] TODAYS OPTIONS/CROATIAN O [id number] S [id number] TOD[employer] OPTION MCR -I/P [id number] 18 [id number] MEDICARE PART A SHADOW BILLING [id number] 18 [id number] [employer] Commercial [id number] Self [id number] MEDICARE COMPLETE [id number] SP [id number] [employer]ION MCR [id number] 18 [id number] [employer] [id number] 18 [id number] [employer] Commercial [id number] Self [id number] MEDICARE COMPLETE [id number] SP [id number] MEDICARE COMPLETE-UHC O [id number] S [id number] TOD[employer] OPTION -O/P [id number] 18 [id number] [employer]IONS [id number] SP [id number] WELLCARE [id number] SP [id number] WELLCARE O [id number] S [id number] INSURANCE COVID-19 [id number] xxxxx [id number] MEDICARE [id number] SP [id number] A INSURANCE COVID-19 COVID Mahsa C OVID [employer]/UNHC MEDICARE -CLINIC [id number] 18 [id number] [employer]/UNHC MEDICARE-O/P [id number] 18 [id number] MEDICARE [id number] SP [id number] [employer] [id number] SP [id number] MEDICARE COMPLETE-UHC O [id number] S [id number] MEDICARE COMPLETE-UHC O [id number] S [id number] INSURANCE COVID-19 COVID Mahsa C OVID WELLCARE -I/P [id number] 18 [id number] WELLCARE - SWING [id number] 18 [id number] WELLCARE -O/P [id number] 18 [id number] [facility] Commercial [id number] Self MEDICARE UNAVAILABLE SP UNAVAILA BLE OTHER LIABILITY O [id number] O [id number] OTHER LIABILITY [id number] SP [id number] [employer] O [id number] S [id number] MEDICARE COMPLETE [id number] SP [id number] EVERCARE [id number] SP [id number] [employer] [id number] SP [id number] SECURE [employer] [id number] SP [id number] MEDICARE [id number] SP [id number] A [employer] PLUS [id number] SP [id number] [employer] PLUS [id number] SP [id number] [employer] OPTIONS [id number] SP [id number] MEDICARE PART A SHADOW BILLING [id number] 18 [id number] [employer] UN MEDICARE -PHYSICIAN [id number] 18 [id number] SECURE [employer]/UNHC MEDICARE- [id number] 18 [id number] MEDICARE [id number] SP [id number] [facility] P [id number] S [id number] UNHC AMERICHOICE XIX -HMO [id number] 18 [id number] MEDICARE COMPLETE-[facility] P [id number] S [id number] [employer] Commercial [id number] Self [id number] A Problems, Conditions, and Diagnoses Code Display Name Description Problem Type Effective Dates Data Source(s) V20658 Personal history of nicotine dependence Personal history of nicotine dependence Diagnosis 04/12/2021 11:40:00 AM EDT [facility] Z8701 Personal history of pneumonia (recurrent ) Personal history of pneumonia (recurrent) Diagnosis 04/12/2021 11:40:00 AM EDT [facility] Z950 Presence of cardiac pacemaker Presence of cardiac pace maker Diagnosis 04/12/2021 11:40:00 AM [facility] 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 intermediate (current) use of oral hypoglycemic drugs Diagnosis 04/12/2021 11:40:00 AM EDT [facility] Z7982 intermediate (current) use of aspirin terminal supervisor (cu rrent) use of aspirin Diagnosis 04/12/2021 11:40:00 AM EDT [facility] K17646 CONTACT WITH AND SUSPECTED EXPOSURE TO C OVID-19 CONTACT WITH AND SUSPECTED EXPOSURE TO COVID-19 Diagnosis 04/12/2021 11:40:00 AM EDT [facility] E119 Type 2 diabetes mellitus without complic ations Type 2 diabetes mellitus without complications Diagnosis 04/12/2021 11:40:00 AM EDT [facility] I10 Essential (primary) hypertension Essential (primary) h ypertension Diagnosis 04/12/2021 11:40:00 AM EDT [facility] J441 Chronic obstructive pulmonary disease wi th (acute) exacerbation Chronic obstructive pulmonary disease with (acute) exacerbation Diagnosis 04/12/2021 11:40:00 AM EDT [facility] R05 Cough Cough Diagnosis 04/12/2021 11:40:00 AM ED T [facility] U91902 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 Other cervical disc displacement at C6-C7 level Diagnosis 12/18/2020 10:38:00 AM EDT [facility] 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, 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, cervical region Diagnosis 12/18/2020 10:38:00 AM EDT [facility] R2681 Unsteadiness on feet Unsteadiness on feet Diagnosis 12/18/2020 10:38:00 AM EDT [facility] G4089 Other seizures Other seizures Diagnosis 12/18/2020 10:38: 00 AM EDT [facility] G250 Essential tremor Essential tremor Diagnosis 12/18/2020 10 :38:00 AM EDT [facility] E62901 Unspecified place in unspeci fied non-institutional (private) residence as the place of occurrence of the external cause Unspecified place in unspecified non-institutional (private) residence as the place of occurrence of the external cause Diagnosis 11/27/2020 03:26:00 PM EDT [facility] L826GNA Fall on same level from slip ping, tripping and stumbling without subsequent striking against object, initial encounter Fall on same level from slipping, tripping and stumbling without subsequent striking against object, initial encounter Diagnosis 11/27/2020 03:26:00 PM EDT [facility] E8890LK Contusion of left hip, initial encounter Contusion of left hip, initial encounter Diagnosis 11/27/2020 03:26:00 PM EDT [facility] A8289SK Contusion of right knee, initial encount er Contusion of right knee, initial encounter Diagnosis 11/27/2020 03:26:00 PM EDT [facility] J181 Lobar pneumonia, unspecified organism Lo bar pneumonia, unspecified organism Diagnosis 11/27/2020 03:26:00 PM EDT [facility] [id number] Contusion of left front wall of thorax, initial encounter Contusion of left front wall of thorax, initial encounter Diagnosis 03:26:00 PM EDT [facility] Y279TNP Unspecified injury of thorax, initial en counter Unspecified injury of thorax, initial encounter Diagnosis 11/27/2020 03:26:[address] 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, lumbar region Unspecified inflammatory spondylopathy, lumbar region Diagnosis 09/12/2020 01:20:0 0 PM [facility] S12951M Unspecified injury of left elbow, initia l encounter Unspecified injury of left elbow, initial encounter Diagnosis 09/12/2020 01:20:00 PM [facility] O0289PG Unspecified injury of lower back, initia l encounter Unspecified injury of lower back, initial encounter Diagnosis 09/12/2020 01:20:00 PM [facility] D649 Anemia, unspecified Anemia, unspecified Diagnosis 0 09/12/2020 01:20:00 PM [facility] E8342 Hypomagnesemia Hypomagnesemia Diagnosis 08/09/2020 02:27: 00 PM [facility] I509 Heart failure, unspecified Heart failure, unspecified Diagnosis 08/09/2020 02:27:00 PM [facility] E27559 Presence of other cardiac implants and g rafts Presence of other cardiac implants and grafts Diagnosis [facility]/28[facility] Unspecified atrial fibrillation Unspecified atrial fib rillation Diagnosis [facility]/28[facility]2020 [facility]875 Hyperkalemia Hyperkalemia Diagnosis 05/28/2020 12:30:[facility] Z[facility] Presence of other heart-valve replacemen t Presence of other heart-valve replacement Diagnosis 05/28/2020 [facility] Z[facility] Do not resuscitate Do not resuscitate Diagnosis 0 [facility] N189 Chronic kidney disease, unspecified Chronic kidn ey disease, unspecified Diagnosis 05/28/2020 12:30:00 PM EDT [facility] N179 Acute kidney failure, unspecified Acute kidney f ailure, unspecified Diagnosis 05/28/2020 12:30:00 PM EDT [facility] J9602 Acute respiratory failure with hypercapn ia Acute respiratory failure with hypercapnia Diagnosis 05/28/2020 12:30:00 PM EDT [facility] M6281 Muscle weakness (generalized) Muscle weakness (general ized) Diagnosis 05/28/2020 12:30:00 PM EDT [facility] I5020 Unspecified systolic (congestive) heart failure Unspecified systolic (congestive) heart failure Diagnosis 05/28/2020 12:30:00 PM EDT [facility] R600 Localized edema Localized edema Diagnosis 05/22/2020 02:0 0:00 PM EDT [facility] E8351 Hypocalcemia Hypocalcemia Diagnosis 05/22/2020 02:00:00 P M EDT [facility] J69910 Nicotine dependence, cigarettes, uncompl icated Nicotine dependence, cigarettes, uncomplicated Diagnosis 05/22/2020 02:00:[address] 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 Problem 11/16/2020 12:00:00 AM EST [facility] ([facility], ) R26.81 Abnormal gait Abnormal gait Problem 11/16/2020 12:00:00 AM EST [facility] ([facility], ) G25.0 Essential tremor Essential tremor Problem 11/16/2020 12 :00:00 AM EST [facility] ([facility], ) Surgeries/Procedures Procedure Description Date Indications Data Source(s) Insertion Of Tunneled Centrally Inserted Central Venous Cath eter 06/12/2021 12:00:00 AM EDT [facility] ([facility]) Ultrasound Guidance For Vascular Access Requiring Ultrasound Eval 06/12/2021 12:00:00 AM EDT [facility] ([facility]) Fluoroscopic Guidance For Central Venous Access Device Place ment 06/12/2021 12:00:00 AM EDT [facility] ([facility]) [facility] HOSPITAL CARE/DAY 25 MINUTES 06/12/2021 12:00:00 AM EDT [facility] ([facility]) ARTHROCENTESIS ASPIR&/INJECTION MAJOR JT/BURSA 021 12:00:00 AM EDT [facility] ([facility]) ARTHROCENTESIS ASPIR&/INJECTION MAJOR JT/BURSA 021 12:00:00 AM EDT [facility] ([facility]) ARTHROCENTESIS ASPIR&/INJECTION MAJOR JT/BURSA 021 12:00:00 AM EDT [facility] ([facility]) OFFICE OUTPATIENT VISIT 15 MINUTES 05/09/2021 12:00:00 AM EDT [facility] ([facility]) DEMO&/EVAL OF PT UTILIZ AERSL GEN/NEB/INHLR/IPPB 04/17 12:00:00 AM EDT [facility] ([facility], ) OFFICE OUTPATIENT NEW 45 MINUTES 04/17/2021 12:00:00 A M EDT [facility] ([facility], ) ELECTROENCEPHALOGRAM W/REC AWAKE&ASLEEP 01/08/2021 12: 00:00 AM EDT [facility] ([facility], ) ELECTROENCEPHALOGRAM W/REC AWAKE&ASLEEP 01/08/2021 12: 00:00 AM EDT [facility] ([facility], ) PROGRAM EVAL IMPLANTABLE IN PRSN MULTI LD PACER 2020 12:00:00 AM EDT [facility] (Silver Peterson MD) ARTHROCENTESIS ASPIR&/INJECTION MAJOR JT/BURSA 021 12:00:00 AM EST [facility] ([facility]) RADIOLOGIC EXAM KNEE COMPLETE 4/MORE VIEWS 11/16/2020 12:00:00 AM EST [facility] ([facility]) OFFICE OUTPATIENT VISIT 25 MINUTES 11/16/2020 12:00:00 AM EST [facility] ([facility]) ECG ROUTINE [...] of Chest and Abdomen 06/05/2020 12:00:00 AM [facility] Radiography of Chest Plain Radiography of Chest 2019 12:00:00 AM [facility] Monitoring of Cardiac Electrical Activity, External Ap proach Monitoring of Cardiac Electrical Activity, External Approach 05/28/2020 12:00:00 AM [facility] Introduction of Anesthetic Agent into Re spiratory Tract, Via Natural or Artificial Opening Introduction of Anesthetic Agent into Re spiratory Tract, Via Natural or Artificial Openin 05/28/2020 12:00:00 AM [facility] Introduction of Vasopressor into Peripheral Vein, Perc utaneous Approach Introduction of Vasopressor into Peripheral Vein, Percutaneous Approach 05/28/2020 12:00:00 AM [facility] Introduction of Electrolytic and Water B alance Substance into Peripheral Vein, Percutaneous Approach Introduction of Electrolytic and Water B alance Substance into Peripheral Vein, Percutaneous Approach 05/28/2020 12:00:00 AM [facility] Results ID Date Data Source [id number] 06/13/2021 08:25:00 AM EDT [facility] Name Value Range Interpretation Code Description Data Ro rce(s) Supporting Document(s) SARS coronavirus 2 RNA [Presence] in Res piratory specimen by AMARA with probe detection POSITIVE [facility] This lab was ordered by [facility] a nd reported by [facility]. ID Date Data Source [id number] 06/09/2021 04:08:00 AM EDT [facility] Name Value Range Interpretation Code Description Data Ro rce(s) Supporting Document(s) SARS coronavirus 2 RNA [Presence] in Res piratory specimen by AMARA with probe detection NEGATIVE [facility] This lab was ordered by [facility] a nd reported by [facility]. ID Date Data Source [id number] 06/08/2021 11:44:00 PM EDT [facility] ([facility] Peterson [...] (Silver Peterson MD) ID Date Data Source [id number] 06/08/2021 07:51:00 PM EDT [facility] Name Value Range Interpretation Code Description Data Ro rce(s) Supporting Document(s) SARS-CoV-2 (COVID 19) NEGATIVE - SARS-CoV-2 (COVID19) [facility] This lab was ordered by [facility] a nd reported by [facility]. ID Date Data Source [id number] 04/12/2021 11:40:00 AM EDT [facility] 1 OrderSheet [facility] Emergency Department [address] [place] [address] Phone #: ext- [phone] 04/12/2021 11:39 [id number] Sex: [facility] : 1945 Age: 76yWEIGHT:84.8 kg [...] Osmar(Symptomatic as Luis Whalen RNDefined by CDC) P.A.-C;([id number]) 2 OrderSheet [facility] Emergency Department [address] [place] [address] Phone #: ext- [phone] 04/12/2021 11:39 [id number] Sex: F : 1945 Age: 76y(Unknown if [...] Cont STAT 13:42 04/12/2021 13:45 Osmar(Oxygen?(No)) Luis Wahlen RN P.A.-C; Reason for Study: NO CONTRAST: [...] Dose: 125 Luis Whalen RN 3 OrderSheet [facility] Emergency Department [address] [place] [address] Phone #: ext- [phone] 04/12/2021 11:39 Patient: DONALD ARMANDO Sex: F : 1945 Age: 76ymg (X1) P.A.-C;GENERAL ORDERSOrder Description Priority Entered Acknowledged InitialedBlood Pressure 12:04/12/2021 12:19 Marcellus Whalen RN P.A.-C;[employer] 12:04/12/2021 12:19 Osmar(continuous) Luis Whalen RN P.A.-C;EKG 12:04/12/2021 12:27 Chari Wooten exchange engineerDamaso P.A.-C; [id number] 12:17 04/12/2021 12:19 Osmar Whalen RN P.A.-C;Obtain Old EKG 12:04/12/2021 12:19 Osmar Whalen RN P.A.-C;Obtain Old Records 12:17 04/12/2021 12:19 Osmar Whalen RN P.A.-C;Oxygen titrate to 12:04/12/2021 12:19 Osmar92% Luis Whalen RN P.A.-C;Pulse oximeter 12:04/12/2021 12:19 Osmar(Continuous) Luis Whalen RN P.A.-C;Saline Lock 12:04/12/2021 12:34 Osamr Whalen RN P.A.-C;Vitals 12:04/12/2021 12:19 Osmar Whalen RN P.A.-C;Oxygen (3 L/min) 12:17 04/12/2021 12:19 Osmar(NC) (Titrate to O2 Luis Whalen RNSat >92%) P.A.-C;-- (Ambulation oO2 14:54 04/12/2021 15:04 Petersat. ) Luis Whalen RN, P.A.-C;[Electronically signed by Osmar Whalen RN (15:46 04/12/2021)][Electronically signed by Luis Wooten P.A.-C (23:23 04/12/2021)] 4 OrderSheet [facility] Emergency Department [address] [place] [address] Phone #: ext- [phone] 04/12/2021 11:39 Patient: DONALD ARMANDO Sex: F : 1945 Age: 76y[Electronically locked by Osmar Whalen RN (15:46 04/12/2021)] Name Value Range Interpretation Code Description Data Ro rce(s) Supporting Document(s) ID Date Data Source [id number] 04/12/2021 11:40:00 AM EDT [facility] 1 Medication Reconciliation Report [facility] Emergency Department [address] [place] [address] Phone #: ext- [phone] 04/12/2021 11:39 Patient: [...] Oral 50mcg, daily 2 Medication Reconciliation Report [facility] Emergency Department [address] [place] [address] Phone #: ext- [phone] 04/12/2021 11:39 Patient: DONALD ARMANDO Sex: F [...] days -- Dispense 5 tablet. Refills: 0.Substitution permitted.[id number] [id number]. .azithromycin 250 mg tablet Take 2 tablet single dose for 1 days -- Take 2 tabs by mouth and day 1`andthen 1 tab by mouth for days 2-5. Dispense 6 tablet. Refills: 0. Substitution permitted.[facility] #[id number] - [address] [place], [place] [id number]. . -- Luis Wooten P.A.-C Name Value Range Interpretation Code Description Data [facility](s) Supporting Document(s) ID Date Data Source [id number] 04/12/2021 11:40:00 AM EDT [place] [address] Medication Administration Record [facility] Emergency Department [address] [place] [address] Phone #: ext- [phone] 04/12/2021 11:39 Patient: [...] Name Value Range Interpretation Code Description Data [facility](s) Supporting Document(s) ID Date Data Source [id number] 04/12/2021 11:40:00 AM EDT [facility] 1 General Instructions [facility] Emergency Department [address] [place] [address] Phone #: ext- [phone] 04/12/2021 11:39 Patient: [...] -- Dispense 5 tablet. Refills: 0.Substitution permitted.Pharmacy [facility] #[id number] [place] [address]. .azithromycin 250 mg tablet Take 2 tablet single dose for 1 days -- Take 2 tabs by mouth and day 1`andthen 1 tab by mouth for days 2-5. Dispense 6 tablet. Refills: 0. Substitution permitted.Pharmacy - [facility] #[id number] [id number]. .Follow-up:Return to the emergency department as needed. Follow up with your healthcare provider in about twodays if not better. Call for an appointment. Follow up with a pottery striper and burner technician as scheduled.Understanding of the discharge instructions verbalized by patient. ADDITIONAL INFORMATIONCOPD Flare 2 General Instructions [facility] Emergency Department [address] [place] [address] Phone #: ext- [phone] 04/12/2021 11:39 Patient: DONALD ARMANDO Sex: F [...] of a different color 3 General Instructions [facility] Emergency Department [address] [place] [address] Phone #: ext- [phone] 04/12/2021 11:39 Patient: [...] the infection has cleared. 4 General Instructions [facility] Emergency Department [address] [place] [address] Phone #: ext- [phone] 04/12/2021 11:39 [id number] Sex: F : 1945 Age: 76y If [...] and fish, and low-fat dairy products.Preventing a hxaki-raLihra-znk happen. But the best way to treat [...] stay inside when possible. 5 General Instructions [facility] Emergency Department [address] [place] [address] Phone #: ext- [phone] 04/12/2021 11:39 [id number] Sex: F : 1945 Age: 76y Try [...] your healthcare provider about your ability to: [place] in your normal environment Correctly use inhaler (or your medicine delivery systems) [place] with other conditions you have and their [...] or bloody mucus (sputum) 6 General Instructions [facility] Emergency Department [address] [place] [address] Phone #: ext- [phone] 04/12/2021 11:39 Patient: DONALD ARMANDO Sex: F : 1945 Age: 76y You don't start to get better within 24 hours Swelling of your ankles gets worse Weakness [id number] [employer]. [address] [place] [address]. All rights reserved. This information is not [...] low-grade fever. Bronchitis usually 7 General Instructions [facility] Emergency Department [address] [place] [address] Phone #: ext- [phone] 04/12/2021 11:39 [id number] Sex: F : 1945 Age: 76ylasts 7 [...] away from secondhand smoke. You may use xmqi-xey-jhyvltq medicines to control fever or pain, unless [...] loosen mucus in your nose and lungs. Qkat-cap-uwzoeys cough, cold, and sore-throat medicines will not [...] Coughing up more sputum 8 General Instructions [facility] Emergency Department [address] [place] [address] Phone #: ext- [phone] 04/12/2021 11:39 Patient: DONALD ARMANDO Sex: F : 1945 Age: 76y Weakness, drowsiness, headache, facial pain, ear pain, or a stiff neckCall 911Call 911 if any of these occur. Coughing up blood Weakness, drowsiness, headache, or stiff neck that get worse Trouble breathing, wheezing, or pain with breathing [id number] [employer]. [address] [place] [address]. All rights reserved. This information is not intended as asubstitute for professional medical care. Always follow your healthcare professional's instructions. 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 2 Clinical Report - Nurses [facility] Emergency Department [address] [place] [address] Phone #: ext- [phone] 04/12/2021 11:39 Patient: DONALD ARMANDO Sex: F [...] 2 seconds. 3 Clinical Report - Nurses [facility] Emergency De partment [address] [place] [address] Phone #: ext- [phone] 04/12/2021 11:39 Patient: DONALD ARMANDO Sex: F : 1945 Age: 76y EXTREMITIES: Bilateral 1+ pitting edema of the lower extremities involving both lower legs. SKIN: Skin is warm and dry. Normal skin turgor. --11:55 04/12/21 Osmar Whalen RN.NURSING PROGRESS NOTESOxygen administered by nasal cannula at 3 liters. equipment monitor phototypesetting, NIBP monitor and pulse oximeterplaced on patient; monitoring tech- Lead II; monitor alarms on. Patient gowned. [...] and shown to the PA. --12:51 [facility]/12[facility]21 [facility] [place] [address] 13:48 04/12/2021 Solu-Medrol (methylPREDNISolone Sodium Succ) IVP [...] maintained @ 93% on 3L). --15:07 04/12/21 [facility] ( Patient was provided with a cup of coffee and a sandwich.). --15:08 04/12/21 [facility] [place] [address] 15:28 04/12/2021 Si te #1 removed upon discharge. Catheter intact. Manual pressure and bandage applied. --15:28 04/12/21 Osmar Whalen RN.DISPOSITION / DISCHARGE 4 Clinical Report - Nurses [facility] Emergency Department [address] [place] [address] Phone #: ext- [phone] 04/12/2021 11:39 Patient: DONALD ARMANDO Sex: F : 1945 Age: 76y Condition at departure: improved and stable. Discharge instructions provided and reviewed with the patient. Reviewed medication(s) side effects, precautions, dosing and course information. Prescription(s) sent electronically to pharmacy. Patient verbalized understanding. Written instructions provided in [place]. The patient was discharged by the physician assistant tennis professional. She was discharged home and accompanied by [...] rce(s) Supporting Document(s) ID Date Data Source [id number] 04/12/2021 11:40:00 AM EDT [facility] 1 Clinical Report - Physicians/Mid Levels [facility] Emergency Department [address] [place] [address] Phone #: ext- [phone] 04/12/2021 11:39 Patient: [...] Substance Problems. 2 Clinical Report - Physicians/Mid [facility] Emergency Department [address] [place] [address] Phone #: ext- [phone] 04/12/2021 11:39 [id number] Sex: F : 1945 Age: 76y Hypertension. [...] movement. 3 Clinical Report - Physicians/Mid Levels [facility] Emergency Department [address] [place] [address] Phone #: ext- [phone] 04/12/2021 11:39 [id number] Sex: F : 1945 Age: 76y Abdomen: [...] In Progress Exam [place] THOR[place] W/[place] [address] PHONE: [phone] FAX: [phone] Name .................. : TR Whitley Acct Number.................. : [id number] [facility]......... [facility]... : [id number] Stay type ............. : E/R Discharge Date......... ... : Admit Date ......... : 04/12/21 [facility] Date [facility] ....... : 1945 Family Phys ................... : [employer] Phone .................. : [phone] Age ................................ : 76 Film# .................. .:[id number] Sex ................................. : F Unsigned transcriptions are preliminary reports and do not represent a medical or legal document CT THORAX W/O CONTRAST [id number] COMPLETE:04/12/21 13:42 50429 Reason(s): NO CONTRAST: ? Abnormal CXR portable CT CHEST WITHOUT IV CONTRAST INDICATION: Pleural-based opacities seen on the left side, uncertain etiology. CT recommended. COMPARISON: Chest x-ray 04/12/2021, CT10/28/19 CONTRAST: None One or more of the following dose reduction techniques were utilized in effectively 4 Clinical Report - Physicians/Mid Levels [facility] Emergency Department [address] [place] [address] Phone #: ext- [phone] 04/12/2021 11:39 Patient: [...] ribs. These are new [address] [place], [place] [address] [id number]: [phone] FAX: [phone] .................. : TR Whitley Acct Number.................. : [id number]. ................. : TR-05 MR Number ................... : [id number] type ............. : E/R Discharge Date......... ... :Admit Date ......... : 04/12/21 Admit Phys .................... : COONEYNORMDate of ....... : 1945 Family Phys ................... : KIRSCHMANPhone .................. : [phone] Age ................................ : 76Film# .................. .:[id number] Sex ................................. : FUnsigned transcriptions are preliminary reports and do not represent a medical or legal document CT THORAX W/O CONTRAST [id number] COMPLETE:04/12/21 13:42 [id number] Reason(s): NO CONTRAST: ? Abnormal CXR portablecompared to the prior CT from 2019. Abundant sclerosis around the fracture sitesaccount for the rounded opacities projected over the left lung on x-ray. No pulmonarymasses are identified. Electronically Reviewed and Signed ByMAGGIE OLMEDO JWSTranscribe Initials: GOLDEN, Transcribe Date: 04/12/21 14:50, Dictation Date:<<REPDIST>> Page 2 of 2 5 Clinical Report - Physicians/Mid Levels [facility] Emergency Department [address] [place] [address] Phone #: ext- [phone] 04/12/2021 11:39 Patient: [...] Male GFR Interprentation 20-49 yrs >60 mL/min Idrokn23-61 yrs >56 mL/min Normal 60-69 yrs >49 mL/min Normal 70-79yrs 6 Clinical Report - Physicians/Mid Levels [facility] Emergency Department [address] [place] [address] Phone #: ext- [phone] 04/12/2021 11:39 Patient: DONALD ARMANDO Sex: F : 1945 Age: 76y>42 mL/min Normal 80 and above >35 mL/min Normal Female GFRInterpretation 20-39 yrs >60 mL/min Normal 40-49 yrs >58 mL/minNormal 50-59 yrs >51 mL/min Normal 60-69 yrs >45 mL/min Bbazpl18-40 yrs >39 mL/min Normal 80 and above >32 mL/min NormalLipase: (AURA: 04/12/2021 12:34) ( OrgRcvd 04/12/2021 13:18) Final results Test Result Flag [...] VenousThrombosis, Pulmonary Embolus, Tissue heart valves, Acute MT Atrial Fibrillation, Valvular heart diseaseand recurrent Systemic Embolism. - International Normalized Ratio (INR): 2.5 - 3.5 forMechanical Prosthetic valve.Troponin-T: (AURA: 04/12/2021 12:34) ( [facility] 04/12/2021 12:59) Final results Test Result Flag Units (Reference) TROPONIN T <0.01 NG/ML (0.00 - 0.10) TROPONIN T0.1 ng/ml Recommended as the clinical threshold value forTroponin T.Magnesium: (AURA: 04/12/2021 12:34) ( [facility] 04/12/2021 13:18) Final results Test Result Flag Units (Reference) MAGNESIUM 2.2 MG/DL (1.7 - 2.2)BNP: (AURA: 04/12/2021 12:34) ( [facility] 04/12/2021 13:22) Final results Test Result Flag Units (Reference) BNP 1469 H PG/ML (0 - 125)TSH: (AURA: 04/12/2021 12:34) ( [facility] 04/12/2021 13:22) Final results Test Result Flag Units (Reference) TSH 5.41 H uIU/mL (0.47 - 5.01)Urinalysis: (AURA: 04/12/2021 13:45) ( [facility] 04/12/2021 14:17) Final results Test Result Flag Units (Reference) URINALYSIS URINALYSIS SOURCE R COLOR yellow (NORMAL: Yello CLARITY clear (NORMAL: Clear SPEC GRAVITY 1.010 (1.001 - 1.030 pH 7 (5 - 9) GLUCOSE NORM (NORMAL: Negat BILIRUBIN NEG (NORMAL: Negat KETONE NEG (NORMAL: Negat PROTEIN 15 (NORMAL: Negat NITRITE NEG (NORMAL: Negat 7 Clinical Report - Physicians/Mid Levels [facility] Emergency Department [address] [place] [address] Phone #: ext- [phone] 04/12/2021 11:39 - [...] 04/12/2021 13:44) Final [place] [address] PHONE: [phone] FAX: [phone] Name .................. : TR Whitley Acct Number.................. : [id number] ROOM. ................. : TR05 Number ................... : [id number] Stay type ............. : E/R Discharge Date......... ... : Admit Date ......... : 04/12/21 Admit Phys .................... : COONEYNORM Date of ....... : 1945 Family Phys ................... : CASPER Phone .................. : [phone] Age ................................ : 76 Film# .................. .:[id number] Sex ................................. : F Unsigned transcriptions are preliminary reports and do not represent a medical or legal document CHEST PORTABLE [id number] COMPLETE:04/12/21 12:17 38793 Reason(s): cough, congestion, hx of COPD. ? PNU vs COPD flare vs CHF flare 8 Clinical Report - Physicians/Mid Levels [facility] Emergency Department [address] [place] [address] Phone #: ext- [phone] 04/12/2021 11:39 Patient: DONALD ARMANDO Sex: F [...] 04/12/21 13:39, Dictation Date: Page 1 of2 [facility] [address] [place] [address] PHONE: [phone] FAX: [phone] Name .................. : TR BENNETT Gutierrez Acct Number.................. : [id number] ROOM. ............... .. : TR05 Number ................... : [id number] Stay type ............. : E/R Discharge Date......... ... : Admit Date ......... : 04/12/21 Admit Phys .................... : COONEYNORM Date of ....... : 1945 [facility] ................[facility] Phone .................. : [phone] Age ................................ : 76 Film# .................. .:[id number] Sex ................................. : F Unsigned transcriptions are preliminary reports and do not represent a medical or legal document CHEST PORTABLE [id number] COMPLETE:04/12/21 12:17 97631 Reason(s): cough, congestion, hx of COPD. ? PNU vs COPD flare vs CHF flare Copy for: 010 EMERGENCY SRV Copy for: JE FREDERICK via fax Copy for: CASPER RACHEL via [employer] Copy for: EMERGENCY DEPT via [employer] 9 Clinical Report - Physicians/Mid Levels [facility] Emergency Department [address] [place] [address] Phone #: ext- [phone] 04/12/2021 11:39 Patient: DONALD ARMANDO Sex: F [...] return to evaluate. [facility]. Appears stable [id number] BUN: 40; today 52, increased Cerat: 2.3; [...] stable. 10 Clinical Report - Physicians/Mid Levels [facility] Emergency Department [address] [place] [address] Phone #: ext- [phone] 04/12/2021 11:39 Patient: DONALD ARMANDO Sex: F [...] restrictions. 11 Clinical Report - Physicians/Mid Levels [facility] Emergency Department [address] [place] [address] Phone #: ext- [phone] 04/12/2021 11:39 Patient: [...] Dispense 5 tablet. Refills: 0. Substitution permitted. [employer] [facility] #[id number] - [address], [place] [id number]. . azithromycin 250 mg tablet Take 2 tablet single dose for 1 days -- Take 2 tabs by mouth and day 1`and then 1 tab by mouth for days 2-5. Dispense 6 tablet. Refills: 0. Substitution permitted. [employer] [facility] #[id number] - [address] [id number]. . Follow-up: Return to the emergency department as needed. Follow up with your healthcare provider in about two days if not better. Call for an appointment. Follow up with a pottery striper and burner technician as scheduled. Understanding of the discharge instructions verbalized by patient.(Electronically signed by Luis Wooten P.A.-C 04/12/2021 23:23) Name Value Range Interpretation Code Description Data Ro rce(s) Supporting Document(s) ID Date Data Source [id number] 04/12/2021 10:26:00 [place] [address] RESPIRATORY CARE REPORT ==== ---------NAME------- NUMBER SEX AGE ADMIT DISC. XRAY# F/C TYPEPATRICIADEVI BENNETT Gutierrez [id number] F 76 04/12/21 04/12/21 [id number] E/R DATE OF : 1945 M/R# [id number] PH#: [phone] TR-05 LOCATION: EMERGENCY DEPT EKG [id number] COMP LETE:04/12/21 16:06 [facility] [address] PHYSICIAN: MIRIAN WOOTEN Name Value Range Interpretation Code Description Data Ro rce(s) Supporting Document(s) ID Date Data Source [id number] 04/12/2021 03:09:00 [place] [address] PHONE: [phone] FAX: [phone] Name .................. : PATRICIADEVI DONALD Gutierrez Acct Number.................. : [id number] ROOM. ................. : Number ................... : [id number] Stay type ............. : E/R Discharge Date......... ... : Admit Date ......... : 04/12/21 Admit Phys .................... : COONEYNORM Date of ....... : 1945 Family Phys ................... : [employer] Phone .................. : [phone] Age ................................ : 76 Film# .................. .:[id number] Sex ................................. : F Unsigned transcriptions are preliminary reports and do not represent a medical or legal document CT THORAX W/O CONTRAST [id number] COMPLETE:04/12/21 13:42 27028 Reason(s): NO CONTRAST: ? Abnormal CXR portable [...] These are new Page 1 of 2 [facility] [address] [place] [address] PHONE: [phone] FAX: [phone] Name .................. : TR Whitley Acct Number.................. : [id number] ROOM. ................. : [address] Number ................... : [id number] Stay type ............. : E/R Discharge Date......... ... : Admit Date ......... : 04/12/21 Admit Phys .................... : COONEYNORM Date of ....... : 1945 Family Phys ................... : [employer] Phone .................. : [phone] Age ................................ : 76 Film# .................. .:[id number] Sex ................................. : F Unsigned transcriptions are preliminary reports and do not represent a medical or legal document CT THORAX W/O CONTRAST [id number] COMPLETE:04/12/21 13:42 39593 Reason(s): NO CONTRAST: ? Abnormal CXR portable [...] rce(s) Supporting Document(s) ID Date Data Source [id number] 04/12/2021 01:44:00 PM EDT [facility] [address] [place] [address] PHONE: [phone] FAX: [phone] Name .................. : TR Whitley Acct Number.................. : [id number] ROOM. ................. : [address] Number ................... : [id number] Stay type ............. : E/R Discharge Date......... ... : Admit Date ......... : 04/12/21 [facility] Date of ....... : 1945 Family Phys ................... : CASPER Phone .................. : [phone] Age ................................ : 76 Film# .................. .:[id number] Sex ................................. : F Unsigned transcriptions are preliminary reports and do not represent a medical or legal document CHEST PORTABLE [id number] COMPLETE:04/12/21 12:17 17704 Reason(s): cough, congestion, hx of COPD. ? [...] 13:39, Dictation Date: Page 1 of 2 [facility] [address] [place] [address] PHONE: [phone] FAX: [phone] Name .................. : TR Whitley Acct Number.................. : [id number] ROOM. ................. : TR- MR Number ................... : [id number] Stay type ............. : E/R Discharge Date......... ... : Admit Date ......... : 04/12/21 Admit Phys .................... : COCHAPINCITO Date of ....... : 1945 Family Phys ................... : CASPER Phone .................. : [phone] Age ................................ : 76 Film# .................. .:[id number] Sex ................................. : F Unsigned transcriptions are preliminary reports and do not represent a medical or legal document CHEST PORTABLE [id number] COMPLETE:04/12/21 12:17 34635 Reason(s): cough, congestion, hx of COPD. ? PNU vs COPD flare vs CHF flare Copy for: 010 EMERGENCY SRV Copy for: JE FREDERICK via fax Copy for: CASPER RACHEL via modem Copy for: EMERGENCY DEPT via modem Copy for: 710 MED REC Page 2 of 2 Name Value Range Interpretation Code Description Data Ro rce(s) Supporting Document(s) ID Date Data Source [id number] 04/12/2021 01:45:00 PM EDT [facility] (Silver Peterson [...] SOURCE: Clean Catch ID Date Data Source [id number] 04/12/2021 02:15:00 PM EDT [facility] Name Value Range Interpretation Code Description Data Ro rce(s) Supporting Document(s) [facility] SOURCE R [facility] COLOR yellow NORMAL: Yellow [facility] CLARITY clear NORMAL: Clear [facility] Specific gravity of Urine by Test strip 1.010 1.001 - 1.030 [facility] pH 7 5 - 9 [facility] Glucose [Mass/volume] in Urine by Test strip NORM NORMAL: Negat [facility] Bilirubin.total [Presence] in Urine by Test strip NEG NORMAL: Negative [facility] Ketones [Presence] in Urine by Test strip NEG NORMAL: Negative [facility] Protein [Mass/volume] in Urine by Test strip 15 NORMAL: Negat [facility] Nitrite [Presence] in Urine by Test strip NEG NORMAL: Negative [facility] BLOOD NEG NORMAL: Negative [facility] LEUK EST NEG NORMAL: Negative [facility] Urobilinogen [Mass/volume] in Urine by Test strip NOR less joyce n 1.0 mg/dL [facility] MICROSCOPIC See Below [facility] ital WBC 1 - 3 NORMAL: NONE SEEN [facility] EPITHELIAL FEW NORMAL: NONE SEEN [facility] Bacteria [Presence] in Urine sediment by Light microscopy Tr sonali NORMAL: NONE SEEN [facility] Amorphous sediment [Presence] in Urine sediment by Light melody roscopy RARE NORMAL: NONE SEEN [facility] Casts [#/area] in Urine sediment by Microscopy low power field See Be low [facility] Hyaline casts [#/area] in Urine sediment by Microscopy low p ower field 0-1 NORMAL: None Seen A [facility] Coarse Granular Casts [#/area] in Urine sediment by Mi croscopy low power field 0-1 NORMAL: None Seen A [facility] ID Date Data Source [id number] 04/12/2021 12:34:00 PM EDT [facility] (Silver Peterson [...] management</content>
<content>decisions.</content>
<content></content> ID Date Data Source [id number] 04/12/2021 12:34:00 PM EDT [facility] (Silver Peterson [...] (Silver Peterson MD) ID Date Data Source [id number] 04/12/2021 12:34:00 PM EDT [facility] (Silver Peterson [...] >32 mL/min Normal ID Date Data Source [id number] 04/12/2021 12:34:00 PM EDT [facility] (Silver Peterson [...] (Silver Peterson MD) ID Date Data Source [id number] 04/12/2021 12:34:00 PM EDT [facility] (Silver Peterson [...] Thrombosis, Pulmonary Embolus, Tissue heart valves, Acute MT Atrial Fibrillation, Valvular heart disease and recurrent Systemic Embolism. -International Normalized Ratio (INR): 2 .5 - 3.5 for Mechanical Prosthetic valve. Laboratory test finding (navigational concept) 1.03 0.93-1.23 [facility] (Silver Peterson MD) ID Date Data Source [id number] 04/12/2021 12:34:00 PM EDT [facility] (Silver Peterson [...] (Silver Peterson MD) ID Date Data Source [id number] 04/12/2021 12:34:00 PM EDT [facility] Name Value Range Interpretation Code Description Data Ro rce(s) Supporting Document(s) COVID19 Case rprt NOT DETECTED [facility] This lab was ordered by [facility] and reported by [facility]. ID Date Data Source [id number] 04/12/2021 01:23:00 PM EDT [facility] NOT DETECTEDNOT DETECTED{ PROC EDURAL CONTROL VALID [...] rce(s) Supporting Document(s) ID Date Data Source [id number] 04/12/2021 01:22:00 PM EDT [facility] Name Value Range Interpretation Code Description Data Ro rce(s) Supporting Document(s) Influenza virus A Ag [Presence] in Nasopharynx by Immunoassa y NEGATIVE NORMAL: NEGATIVE [facility] Influenza virus B Ag [Presence] in Nasopharynx by Immunoassa y NEGATIVE NORMAL: NEGATIVE [facility] NEGATIVENEGATIVE PROCEDURAL CO NTROL VALID KIT LOT [...] other patient managementdecisions. ID Date Data Source [id number] 04/12/2021 01:22:00 PM EDT [facility] Name Value Range Interpretation Code Description Data Ro rce(s) Supporting Document(s) Thyrotropin [Units/volume] in Serum or Plasma by Detec tion limit <= 0.05 mIU/L 5.41 uIU/mL 0.47 - 5.01 H [facility] ID Date Data Source [id number] 04/12/2021 01:22:00 PM EDT [facility] Name Value Range Interpretation Code Description Data Ro rce(s) Supporting Document(s) BNP 1469 PG/ML 0 - 125 H [facility] ID Date Data Source [id number] 04/12/2021 01:22:00 PM EDT [facility] Name Value Range Interpretation Code Description Data Ro rce(s) Supporting Document(s) COMPREHENSIVE METABOLIC PANEL [facility] COMPREHENSIVE METABOLIC PANEL Sodium [Moles/volume] in Serum or Plasma 143 mEq/L 134 - 153 [facility] Potassium [Moles/volume] in Serum or Plasma 4.9 mEq/L 3.6 - 5.0 [facility] Chloride [Moles/volume] in Serum or Plasma 101 mEq/L 98 - 107 [facility] Carbon dioxide, total [Moles/volume] in Serum or Plasma 34 MEQ/L 22 - 30 H [facility] Glucose [Mass/volume] in Serum or Plasma 88 MG/DL 70 - 99 [facility] BUN 52 MG/DL 7 - 21 H [facility] Creatinine [Mass/volume] in Serum or Plasma 2.3 MG/DL 0.7 - 1.5 H [facility] BUN/CREAT 23 8 - 27 [facility] al Protein [Mass/volume] in Serum or Plasma 6.3 G/DL 6.3 - 8.2 [facility] Albumin [Mass/volume] in Serum or Plasma 3.9 G/DL 3.9 - 5.0 [facility] Globulin [Mass/volume] in Serum by calculation 2.4 GM/DL 2.4 - 3.2 [facility] A/G RATIO 1.6 0.8 - 2.0 [facility] Calcium [Mass/volume] in Serum or Plasma 9.1 MG/DL 8.4 - 10.2 [facility] Bilirubin.total [Mass/volume] in Serum or Plasma <0.7 MG/DL 0.2 - 1.3 [facility] Alkaline phosphatase [Enzymatic activity/volume] in Serum or Plasma 81 U/L 38 - 126 [facility] Aspartate aminotransferase [Enzymatic activity/volume] in Serum or Plasma 11 U/L 5 - 40 [facility] Alanine aminotransferase [Enzymatic activity/volume] in Seru m or Plasma 7 U/L 7 - 56 [facility] Anion gap 3 in Serum or Plasma 8.0 mmol/L 8.0 - 16.0 [facility] AGE 76 yrs [facility] al NON-AA GFR 22 mL/min [facility] AFR AMER GFR >60 [facility] Male GFR In terprentation 20-49 [...] >32 mL/min Normal ID Date Data Source [id number] 04/12/2021 01:18:00 PM EDT [facility] Name Value Range Interpretation Code Description Data Ro rce(s) Supporting Document(s) Magnesium [Mass/volume] in Serum or Plasma 2.2 MG/DL 1.7 - 2.2 [facility] ID Date Data Source [id number] 04/12/2021 01:18:00 PM EDT [facility] Name Value Range Interpretation Code Description Data Ro rce(s) Supporting Document(s) Lipase [Enzymatic activity/volume] in Serum or Plasma 26 U/L 13 - 60 [facility] ID Date Data Source [id number] 04/12/2021 12:59:00 PM EDT [facility] Name Value Range Interpretation Code Description Data Ro rce(s) Supporting Document(s) TROPONIN T <0.01 NG/ML 0.00 - 0.10 [facility] ospital TROPONIN T0.1 ng/ml Recommended as the c linical threshold value forTroponin T. ID Date Data Source [id number] 04/12/2021 12:55:00 PM EDT [facility] Name Value Range Interpretation Code Description Data Ro rce(s) Supporting Document(s) Prothrombin time (PT) 13.6 SECONDS 11.0 - 15.5 [facility] INR in Platelet poor plasma by Coagulation assay 1.03 0.93 - 1. 23 [facility] aPTT in Blood by Coagulation assay 27.8 SECONDS 24.8 - 36.7 [facility] \\BLDo\\INR INTERPRETATION\\BLDx\\ Therapeutic range for Coumadin and related oral anticoagulants. - International Normalized Ratio (INR): 2.0 - 3.0 for Venous Thrombosis, Pulmonary Embolus, Tissue heart valves, Acute MT Atrial Fibrillation, Valvular heart disease and recurrent Systemic Embolism. - International Normalized Ratio (INR): 2.5 - 3.5 for Mechanical Prosthetic valve. ID Date Data Source [id number] 04/12/2021 12:44:00 PM EDT [facility] Name Value Range Interpretation Code Description Data Ro rce(s) Supporting Document(s) CBC W/AUTOMATED DIFF [facility] COMPLETE BLOOD COUNT Leukocytes [#/volume] in Blood by Automated count 9.5 10^3/uL 4.2 - 1 1.0 [facility] Erythrocytes [#/volume] in Blood by Automated count 2.99 10^6/uL 4. 20 - 5.40 L [facility] Hemoglobin [Mass/volume] in Blood 9.7 g/dL 12.0 - 16.0 L [facility] Hematocrit [Volume Fraction] of Blood by Automated count 32.0 % 3 7.0 - 47.0 L [facility] Erythrocyte mean corpuscular volume [Entitic volume] b y Automated count 107.0 fL 81.0 - 101 H [facility] Erythrocyte mean corpuscular hemoglobin [Entitic mass] by Automated count 32.4 pg 27.0 - 34.0 [facility] Erythrocyte mean corpuscular hemoglobin concentration [Mass/volume] by Automated count 30.3 g/dL 31.0 - 36.0 L [facility] Erythrocyte distribution width [Ratio] by Automated count 16.0 % 11.5 - 14.5 H [facility] Platelets [#/volume] in Blood by Automated count 194 10^3/uL 150 - 45 0 [facility] Platelet mean volume [Entitic volume] in Blood by Automated count 9.5 fL 7.4 - 10.4 [facility] Neutrophils/100 leukocytes in Blood by Automated count 73.5 % 37. 0 - 80.0 [facility] Lymphocytes/100 leukocytes in Blood by Manual count 12.4 % 25.0 - 40.0 L [facility] Monocytes/100 leukocytes in Blood by Automated count 7.8 % 3.0 - 8.0 [facility] Eosinophils/100 leukocytes in Blood by Automated count 3.5 % 0.0 - 7.0 [facility] Basophils/100 leukocytes in Blood by Automated count 0.5 % 0.0 - 2.5 [facility] %IG 2.3 % 0.0 - 0.0 H [facility] %NRBC 0.0 % 0.0 - 0.0 [facility] al Neutrophils [#/volume] in Blood by Automated count 6.95 10^3/uL 2.00 - 6.90 H [facility] Lymphocytes [#/volume] in Blood by Automated count 1.17 10^3/uL 0.60 - 3.40 [facility] Monocytes [#/volume] in Blood by Automated count 0.74 10^3/uL 0.00 - 0.90 [facility] Eosinophils [#/volume] in Blood by Automated count 0.33 10^3/uL 0.00 - 0.70 [facility] Basophils [#/volume] in Blood by Automated count 0.05 10^3/uL 0.00 - 0.20 [facility] #IG 0.22 10^3/uL 0.00 - 0.10 H [facility] #NRBC 0.00 10^3/uL 0.00 - 0.00 [facility] ospital MANUAL DIFF NOT INDICATED [facility] RBC MORPH NOT INDICATED [facility] spital ID Date Data Source [id number] 03/23/2021 01:22:00 PM EDT [facility] WO IV CONTRASTCLINICAL [...] rce(s) Supporting Document(s) ID Date Data Source [id number] 02/07/2021 01:53:00 PM EDT [facility] (Silver Peterson MD) Name Value Range Interpretation Code Description Data Ro rce(s) Supporting Document(s) Magnesium [Mass/volume] in Serum or Plasma 2.6 mg/dL 1.8-2.4 Above high normal [facility] (Silver Peterson MD) Natriuretic peptide.B prohormone N-Terminal [Mass/volu me] in Serum or Plasma 1098 pg/mL Above high normal [facility] (Silver Peterson MD) ID Date Data Source [id number] 02/07/2021 01:53:00 PM EDT [facility] (Silver Peterson [...] (Silver Peterson MD) ID Date Data Source [id number] 02/07/2021 01:53:00 PM EDT [facility] (Silver Peterson [...] Little GFR Left</content>
<content>ESRD GFR <15 on CLASSROOM AIDE</content>
<content></content> Laboratory test finding (navigational concept) 106 [...] (Silver Peterson MD) ID Date Data Source [id number] 02/07/2021 01:53:00 PM EDT [facility] (Silver Peterson [...] (Silver Peterson MD) ID Date Data Source [id number] 12/20/2020 10:59:00 [place] [address] PHONE: [phone] FAX: [phone] Name .................. : MARGARETCINDY BENNETT Gutierrez Acct Number.................. : [id number] ROOM. ................. : Number ................... : [id number] Stay type ............. : O/P Discharge Date......... ... : 12/18/20 Admit Date ......... : 12/18/20 Admit Phys .................... : HAIDER SOMMER Date of ....... : 1945 Family Phys ................... : CASPER Phone .................. : [phone] Age ................................ : 75 Film# .................. .:[id number] Sex ................................. : F Unsigned transcriptions are preliminary reports and do not represent a medical or legal document CT CERV SPINE W/O ARI 40245 COMPLETE:12/18/20 19:20 [facility] 8545 Reason for Exam: UNSTEADINESS ON [...] imperative reconstructive techniques. Page 1 of 2 [place] [address] PHONE: [phone] FAX: [phone] Name .................. : TR Whitley Acct Number.................. : [id number] ROOM. ................. : MR Number ................... : [id number] Stay type ............. : O/P Discharge Date......... ... : 12/18/20 Admit Date ......... : 12/18/20 Admit Phys .................... : HAIDER SOMMER Date of ....... : 1945 Family Phys ................... : CASPER Phone .................. : [phone] Age ................................ : 75 Film# ... ............... .:[id number] Sex ................................. : F Unsigned transcriptions are preliminary reports and do not represent a medical or legal document CT CERV SPINE W/O CONTRAS 34676 COMPLETE:12/18/20 19:20 [facility] 8545 Reason for Exam: UNSTEADINESS ON FEET CT dose: 868.3 mGycm Electronically Reviewed and Signed By Viet Parra MD , 12/20/20 10:59, KGG Transcribe Initials: DZ , Transcribe Date: 12/19/20 05:34, Dictation Date: Copy for: HAIDER YUMIKO via fax Copy for: CASPER RACHEL via modem Copy for: [facility] MED REC Page 2 of 2 Name Value Range Interpretation Code Description Data Ro rce(s) Supporting Document(s) ID Date Data Source [id number] 12/19/2020 11:57:00 AM EDT [facility] [address] [place] [address] PHONE: [phone] FAX: [phone] Name .................. : TR Whitley Acct Number.................. : [id number] ROOM. ................. : MR Number ................... : [id number] Stay type ............. : O/P Discharge Date......... ... : 12/18/20 Admit Date ......... : 12/18/20 Admit Phys .................... : HAIDER SOMMER Date of ....... : 1945 Family Phys ................... : CASPER Phone .................. : [phone] Age ................................ : 75 Film# .................. .:[id number] Sex ................................. : F Unsigned transcriptions are preliminary reports and do not represent a medical or legal document CT HEAD W/O CONTRAST 51878 COMPLETE:12/18/20 19:20 [facility] 8544 Reason for Exam: TREMOR,SEIZURES, UNSTEADINESS [...] dose: 861.4 mGycm Examination dictated by SHIRA Megn. Examination was reviewed with Viet Parra MD, radiologist at the time of this dictation. Electronically Reviewed and Signed By Viet Parra MD , 12/19/20 11:57, KGG Transcribe Initials: DZ , Transcribe Date: 12/19/20 03:17, Dictation Date: Copy for: HAIDER SOMMER via fax Copy for: CASPER RACHEL via [place] Page 1 of 2 [place] [address] PHONE: [phone] FAX: [phone] Name .................. : TR Whitley Acct Number.................. : [id number] ROOM. ................. : MR Number ................... : [id number] Stay type ............. : O/P Discharge Date......... ... : 12/18/20 Admit Date ......... : 12/18/20 Admit Phys .................... : HAIDER SOMMER Date of ....... : 1945 Family Phys ................... : CASPER Phone .................. : [phone] Age ................................ : 75 Film# .................. .:[id number] Sex ................................. : F Unsigned transcriptions are preliminary reports and do not represent a medical or legal document CT HEAD W/O CONTRAST 63975 COMPLETE:12/18/20 19:20 [facility] 8544 Reason for Exam: TREMOR,SEIZURES, UNSTEADINESS ON FEET Copy for: 710 MED REC Page 2 of 2 Name Value Range Interpretation Code Description Data Ro rce(s) Supporting Document(s) ID Date Data Source [id number] 11/30/2020 06:26:00 PM EDT [facility] (Silver Peterson MD) Name Value Range Interpretation Code Description Data Ro rce(s) Supporting Document(s) Lipoprotein lipase [Enzymatic activity/volume] in Serum or P lasma 104 U/L 73-393 Normal (applies to non-numeric results) [facility] ( Silver Peterson MD) ID Date Data Source [id number] 11/30/2020 06:26:00 PM EDT [facility] (Silver Peterson [...] (Silver Peterson MD) ID Date Data Source [id number] 11/30/2020 06:26:00 PM EDT [facility] (Silver Peterson [...] <content>Troponin I Reference Interval f or Siemens Nye LOCI:</content>
<content></content>
<content>99th Percentile= 0.00-0.045 ng/ml</content>
<content></content>
<content>Risk Stratification:</content>
<content><= 0.10 ng/ml Decreased Risk for Adverse Clinical</content>
<content>Events.</content>
<content>0.10-1.50 ng/ml Increased Risk for Adverse Clinical</content>
<content>Events. Evaluation of additional</content>
<content>criterion and/or repeat testing in 2-6</content>
<content>hours is suggested to rule out myocardial</content>
<content>damage.</content>
<content>>= 1.50 ng/ml Indicative of Myocardial Injury.</content>
<content></content> ID Date Data Source [id number] 11/30/2020 06:14:00 PM EDT [facility] Name Value Range Interpretation Code Description Data Ro rce(s) Supporting Document(s) SARS coronavirus 2 RNA [Presence] in Res piratory specimen by AMARA with probe detection NEGATIVE [facility] This lab was ordered by [facility] a nd reported by [facility]. ID Date Data Source [id number] 11/30/2020 05:20:00 PM EDT [facility] (Silver Peterson [...] (Silver Peterson MD) ID Date Data Source [id number] 11/30/2020 05:16:00 PM EDT [facility] (Silver Peterson MD) Name Value Range Interpretation Code Description Data Ro rce(s) Supporting Document(s) Natriuretic peptide.B prohormone N-Terminal [Mass/volu me] in Serum or Plasma 1279 pg/mL Above high normal [facility] (Silver Peterson MD) ID Date Data Source [id number] 11/30/2020 05:16:00 PM EDT [facility] (Silver Peterson [...] (Silver Peterson MD) ID Date Data Source [id number] 11/28/2020 12:41:00 PM EDT [facility] [address] [place] [address] PHONE: [phone] FAX: [phone] Name .................. : PATRICIADEVI BENNETT Gutierrez Acct Number.................. : [id number] ROOM. ................. : TR-08 Number ................... : [id number] Stay type ............. : E/R Discharge Date......... ... : 11/27/20 Admit Date ......... : 11/27/20 Admit Phys .................... : BERE ULRICH Date of ....... : 1945 Family Phys ................... : [employer] Phone .................. : [phone] Age ................................ : 75 Film# .................. .:[id number] Sex ................................. : F Unsigned transcriptions are preliminary reports and do not represent a medical or legal document SPINE THORACIC 95713 COMPLETE:11/27/20 16:48 KBO 6800 Reason(s): Fall THORACIC [...] rce(s) Supporting Document(s) ID Date Data Source [id number] 11/28/2020 12:41:00 [place] [address] PHONE: [phone] FAX: [phone] Name .................. : PATRICIADEVI BENNETT Gutierrez Acct Number.................. : [id number] ROOM. ................. : TR-08 Number ................... : [id number] Stay type ............. : E/R Discharge Date......... ... : 11/27/20 Admit Date ......... : 11/27/20 Admit Phys .................... : BERE ULRICH Date of ....... : 1945 Family Phys ................... : CASPER Phone .................. : [phone] Age ................................ : 75 Film# .................. .:[id number] Sex ................................. : F Unsigned transcriptions are preliminary reports and do not represent a medical or legal document CHEST 2 VIEWS 40355 COMPLETE:11/27/20 16:48 KBO 6799 Reason(s): Chest Pain [...] By Robert Gilliland M.D. , 11/28/20 12:41, [facility] Transcribe Initials: KIRIT , Transcribe Date: 11/28/20 00:35, Dictation Date: Copy for: EDOUARD LOYA via fax Copy for: CASPER RACHEL via modem Copy for: EMERGENCY DEPT via modem Copy for: 710 MED REC DISCHARGED Page 1 of 1 Name Value Range Interpretation Code Description Data Ro rce(s) Supporting Document(s) ID Date Data Source [id number] 11/28/2020 12:41:00 PM EDT [facility] [address] [place] [address] PHONE: [phone] FAX: [phone] Name .................. : TR Whitley Acct Number.................. : [id number] ROOM. ................. : [facility] Number ................... : [id number] Stay type ............. : E/R Discharge Date......... ... : 11/27/20 Admit Date ......... : 11/27/20 Admit Phys .................... : BERE ULRICH Date of ....... : 1945 Family Phys ................... : [place] Phone .................. : [phone] Age ................................ : 75 Film# .................. .:[id number] Sex ................................. : F Unsigned transcriptions are preliminary reports and do not represent a medical or legal document HIP UNILAT W PELV 2 TO 3V LT [id number] COMPLETE:11/27/20 16:48 KBO 6798 Reason(s): Hip Injury [...] rce(s) Supporting Document(s) ID Date Data Source [id number] 11/27/2020 03:26:00 PM EDT [facility] 1 OrderSheet [facility] Emergency Department [address] [place] [address] Phone #: ext- [phone] 11/27/2020 15:12 Patient: DONALD ARMANDO Sex: F : 1945 Age: 75yWEIGHT:73.4 kg (S) HEIGHT:63 inches (S) BMI:28.7ALLERGIES: Codeine, DilantinCHIEF COMPLAINT: slipped, fall, attempting to get upDIAGNOSIS: Fall, Contusion, PneumoniaLAB ORDERSOrder Description Priority Entered Acknowledged InitialedUrinalysis (Clean STAT 16:42 11/27/2020 16:53 BurnhamCatch) [facility]ind[facility] TechDamaso PA; [id number] STUDY ORDERSOrder Description Priority Entered Acknowledged InitialedHip Left with Pelvis STAT 16:07 11/27/2020 16:13 Burnham2-3 Views [facility]; Tech1 Reason for Study: Hip Injury, Hip PainChest 2 View STAT 16:07 11/27/2020 16:13 Chari(Oxygen?(No)) [facility]; Tech1 NOTES: Fall left rib pain Reason for Study: Chest PainSpine Thoracic AP STAT 16:07 11/27/2020 16:13 BurnhamAnd Lat Ravindra Kimble exchange engineer, Damaso ER(Oxygen?(No)) PA; Tech1 Reason for Study: Fall, Mid Back PainMEDICATION/IV/DRIP/FLUID ORDERSOrder Description Priority Entered Acknowledged InitialedTylenol PO 1000 16:07 11/27/2020 16:55 Graham Whalen RN PA;Vicodin (5-325mg) 17:17 11/27/2020 17:32 PeterPO 1 tab ( HIGH Ravindra Whalen RNALERT PA;MEDICATION)GENERAL ORDERS 2 OrderSheet [facility] Emergency Department [address] [place] [address] Phone #: ext- [phone] 11/27/2020 15:12 Patient: [...] rce(s) Supporting Document(s) ID Date Data Source [id number] 11/27/2020 03:26:00 PM EDT [facility] 1 Medication Reconciliation Report [facility] Emergency Department [address] [place] [address] Phone #: ext- [phone] 11/27/2020 15:12 Patient: [...] Oral 50mcg, daily 2 Medication Reconciliation Report [facility] Emergency Department [address] [place] [address] Phone #: ext- [phone] 11/27/2020 15:12 Patient: [...] Pharmacy - Discounted [facility]: $217.82. Adjudicatewith: BIN:[id number] PCN:TEEPO Group:EMR ID:[id number]. Phone:[phone].Pharmacy - [facility] [address] [place] [address]. .azithromycin 250 mg tablet -- Take 2 tablets on the first day then one tablet daily for 4 days, totalduration is 5 days. Dispense 6 tablet. Refills: 0. Substitution permitted.Pharmacy - [facility] [address] [place] [address]. .gabapentin 100 mg capsule Take 1 capsule three times a day for 30 days -- Dispense 90 capsule.Refills: 0. Substitution permitted. Note to Pharmacy - Discounted [facility]: $19.99. Adjudicate with:BIN:[id number] PCN:BIJAN Group:EMR ID:[id number]. Phone:[phone].Pharmacy - [facility] [address] [place] [address]. . -- SHIRA Medina Name Value Range Interpretation Code Description Data Ro rce(s) Supporting Document(s) ID Date Data Source [id number] 11/27/2020 03:26:00 PM EDT [facility] 1 Medication Administration Record [facility] Emergency Department [address] [place] [address] Phone #: [phone] ext- [phone] 11/27/2020 15:12 Patient: DONALD ARMANDO Sex: F [...] rce(s) Supporting Document(s) ID Date Data Source [id number] 11/27/2020 03:26:00 PM EDT [facility] 1 General Instructions [facility] Emergency Department [address] [place] [address] Phone #: ext- [phone] 11/27/2020 15:12 Patient: [...] - Discounted [facility]: $217.82. Adjudicate with: BIN:[id number] N:TEE Group:EMR ID:[id number]. Phone:[phone]. Pharmacy - [facility] #[id number] [id number]. . azithromycin 250 mg tablet -- Take 2 tablets on the first day then one tablet daily for 4 days, total 2 General Instructions [facility] Emergency Department [address] [place] [address] Phone #: ext- [phone] 11/27/2020 15:12 Patient: DONALD ARMANDO Sex: F : 1945 Age: 75y duration is 5 days. Dispense 6 tablet. Refills: 0. Substitution permitted. Pharmacy - [facility] #[id number] [id number]. . gabapentin 100 mg capsule Take 1 capsule three times a day for 30 days -- Dispense 90 capsule. Refills: 0. Substitution permitted. Note to Pharmacy - [facility]ount[facility]: $19.99. Adjudicate with: BIN:[id number] PCN:BIJAN Group:EMR ID:[id number]. Phone:[phone]. Pharmacy - [facility] #[id number] - [address] [place], [place] [id number]. . Follow-up: Follow up with your doctor [...] muscles without stretching them. 3 General Instructions [facility] Emergency Department [address] [place] [address] Phone #: ext- [phone] 11/27/2020 15:12 --------- [id number] Sex: [facility] : 1945 Age: 75y You [...] you don't trip over 4 General Instructions [facility] Emergency Department [address] [place] [address] Phone #: ext- [phone] 11/27/2020 15:12 [id number] Sex: F : 1945 Age: 75y them. [...] the reading, especially if it affects treatment.Call [phone] if any of these happen: Trouble breathing [...] in vomit, stools (black or red color) 8224-5077 [employer] [address] [place] [address]. All rights reserved. This information is not intended as asubstitute for professional medical care. Always follow your healthcare professional's instructions.Chest Bruise (Contusion) 5 General Instructions [facility] Emergency Department [address] [place], [place] [address] Phone #: ext- [phone] 11/27/2020 15:12 Patient: [...] damp with warm water. 6 General Instructions [facility] Emergency Department [address] [place] [address] Phone #: ext- [phone] 11/27/2020 15:12 Patient: DONALD ARMANDO Sex: F : 1945 Age: 75y Hold a pillow to the affected area when you cough. This will help ease pain. You may use xvip-mzh-cvwxkjp pain medicine such as acetaminophen or ibuprofen [...] suddenly or lasts more than an hour 4730-6845 [employer] [address] [place] [address]. All rights reserved. This information is not [...] ulcer or digestive bleeding. 7 General Instructions [facility] Emergency Department [address] [place] [address] Phone #: ext- [phone] 11/27/2020 15:12 Patient: DONALD ARMANDO Sex: F [...] individual fingers. Frequent bruising for unknown reasons 1854-9187 [employer]. [address] [place] [address]. All rights reserved. This information is not [...] ulcer or digestive bleeding. 8 General Instructions [facility] Emergency Department [address] [place] [address] Phone #: ext- [phone] 11/27/2020 15:12 Patient: DONALD ARMANDO Sex: F [...] injured area Frequent bruising for unknown reasons 7917-8772 [employer]. [address] [place] [address], [place] [address]. All rights reserved. This information is not [...] first week of treatment. 9 General Instructions [facility] Emergency Department [address] [place] [address] Phone #: ext- [phone] 11/27/2020 15:12 Patient: [...] smoke in your home. 10 General Instructions [facility] Emergency Department [address] [place] [address] Phone #: ext- [phone] 11/27/2020 15:12 Patient: DONALD ARMANDO Sex: F : 1945 Age: 75y Prevent lung infections. Ask your healthcare provider about the flu and pneumonia vaccines. Take steps to prevent colds and other lung infections. Practice correct handwashing. Wash your hands often with soap and water. Use hand high lift operator when you can't wash your hands. Stay [...] about whichpneumococcal vaccine is best for you.Call [phone] any of these occur: 11 General Instructions [facility] Emergency Department [address] [place] [address] Phone #: ext- [phone] 11/27/2020 15:12 Patient: [...] Symptoms that get worse or not improving 8251-8645 [employer]. [address] [place] [address]. All rights reserved. This information is not intendedas a substitute for professional medical care. Always follow your healthcare professional's instructions. You have been given the following additional information: Mechanical Fall Chest Wall Contusion 12 General Instructions [facility] Emergency Department [address] [place] [address] Phone #: ext [phone] 11/27/2020 15:12 Patient: DONALD ARMANDO Sex: F : 1945 Age: 75y Contusion, Upper Extremity Contusion, Lower Extremity Pneumonia (Adult)(Electronically signed by SHIRA Medina 11/27/2020 21:39) Name Value Range Interpretation Code Description Data Ro rce(s) Supporting Document(s) ID Date Data Source [id number] 11/27/2020 03:26:00 PM EDT [facility] 1 Clinical Report - Nurses [facility] Emergency Department [address] [place] [address] Phone #: ext- [phone] 11/27/2020 15:12 Patient: DONALD ARMANDO Sex: F [...] axillary area, and bruised her right knee).Treatment EXPLOSIVE ORDNANCE DISPOSAL TECHNICIAN:None.SEPSIS SCREEN: SIRS SCREEN NEGATIVE. SEPSIS SCREEN [...] at bedtime. 2 Clinical Report - Nurses [facility] Emergency Department [address] [place] [address] Phone #: ext- [phone] 11/27/2020 15:12 [id number] Sex: F : 1945 Age: 75y Ventolin [...] palpation to 3 Clinical Report - Nurses [facility] Emergency Department [address] [place] [address] Phone #: ext- [phone] 11/27/2020 15:12 Patient: DONALD ARMANDO Sex: F [...] monitor and NIBP monitor placed on patient; monitoring tech- Lead II; monitor alarms on.Extremity elevated. Patient gowned. Reassurance given. Call light placed in reach. Side rails up x 2.Bed placed in lowest position. Brakes of bed on. Patient ready for evaluation- ED physician notified.--15:35 11/27/20 Osmar Whalen RN Patient transported to CT by stretcher with mask and hydraulic technician. --16:15 11/27/20 Cidra exchange engineer, Damaso, ER Tech1 Correction --16:15 11/27/20 [employer] exchange engineer, Damaso, ER Tech1 Patient transported to radiology by stretcher with hydraulic technician. --16:16 11/27/20 [facility] Tech, Damaso, ER Tech1 Patient ID band checked for patient name and birthdate: patient confirmed. Instructions provided to collect clean catch urine and patient verbalized understanding. Clean catch urine collected with return of yellow-colored clear urine; sample sent to lab for urinalysis and culture. Specimen labeled in the presence of the patient. --16:55 11/27/20 [facility] Tech, Damaso, ER Tech1 16:55 11/27/2020 Tylenol [...] Patient verbalized understanding. Written instructions provided in [place] Island[place]. The patient was discharged by the physician assistant tennis professional. She was discharged home and accompanied by family. She left in a wheelchair and via private vehicle. Family member driving. --17:44 11/27/20 Osmar Whalen RN 17:43 11/27/20. BP: 118/65. MAP: 82. HR: 71. RR: 18. O2 saturation: 96%. Pain level now: 02/15. 4 Clinical Report - Nurses [facility] Emergency Department [address] [place] [address] Phone #: ext- [phone] 11/27/2020 15:12 Patient: DONALD ARMANDO Sex: F : 1945 Age: 75y --17:44 11/27/20 Osmar Whalen RN.Locked/Released at 11/27/2020 17:44 by Osmar Whalen RN Name Value Range Interpretation Code Description Data Ro rce(s) Supporting Document(s) ID Date Data Source [id number] 11/27/2020 03:26:00 PM EDT [facility] 1 Clinical Report - Physicians/Mid Levels [facility] Emergency Department [address] [place] [address] Phone #: ext- [phone] 11/27/2020 15:12 Patient: DONALD ARMANDO Sex: F [...] bedtime. 2 Clinical Report - Physicians/Mid Levels [facility] Emergency Department [address] [place] [address] Phone #: ext- [phone] 11/27/2020 15:12 Patient: DONALD ARMANDO Sex: F [...] for 3 Clinical Report - Physicians/Mid Levels [facility] Emergency Department [address] [place] [address] Phone #: ext- [phone] 11/27/2020 15:12 Patient: [...] - Discounted [facility]: $217.82. Adjudicate with: BIN:[id number] SHAISTAN:BIJAN Group:EMR ID:[id number]. Phone:[phone]. [facility] [address] [place] [address]. . 4 Clinical Report - Physicians/Mid Levels [facility] Emergency Department [address] [place] [address] Phone #: ext- [phone] 11/27/2020 15:12 Patient: DONALD ARMANDO Sex: F : 1945 Age: 75y azithromycin 250 mg tablet -- Take 2 tablets on the first day then one tablet daily for 4 days, total duration is 5 days. Dispense 6 tablet. Refills: 0. Substitution permitted. [facility] [address] [place] [address]. . gabapentin 100 mg capsule Take 1 capsule three times a day for 30 days -- Dispense 90 capsule. Refills: 0. Substitution permitted. Note to Pharmacy - Discounted [facility]: $19.99. Adjudicate with: BIN:[id number] SHAISTAN:BIJAN Group:EMR ID:[id number]. Phone:[phone]. [facility] - [id number] [place] [address]. FaxNumber: . Follow-up: Follow up with your doctor in three days if not better. Reason for referral: evaluation and treatment. Summary of care provided to patient. Understanding of the discharge instructions verbalized by patient.(Electronically signed by SHIRA Medina 11/27/2020 21:39) Name Value Range Interpretation Code Description Data Ro rce(s) Supporting Document(s) ID Date Data Source [id number] 11/27/2020 04:45:00 PM EDT [facility] (Silver Peterson [...] SOURCE: Clean Catch ID Date Data Source [id number] 11/27/2020 05:14:00 PM EDT [facility] Name Value Range Interpretation Code Description Data Ro rce(s) Supporting Document(s) URINALYSIS [facility] booker URINALYSIS SOURCE R [facility] COLOR yellow NORMAL: Yellow [facility] CLARITY clear NORMAL: Clear [facility] Specific gravity of Urine by Test strip 1.020 1.001 - 1.030 [facility] pH 5 5 - 9 [facility] al Glucose [Mass/volume] in Urine by Test strip NORM N[facility]AL: [facility] Bilirubin.total [Presence] in Urine by Test strip NEG NORMAL: Negative [facility] Ketones [Presence] in Urine by Test strip NEG NORMAL: Negative [facility] Protein [Mass/volume] in Urine by Test strip NEG NORMAL: Negat [facility] Nitrite [Presence] in Urine by Test strip NEG NORMAL: Negative [facility] BLOOD NEG NORMAL: Negative [facility] Leukocyte esterase [Presence] in Urine by Test strip NEG FARRUKH L: Negative [facility] Urobilinogen [Mass/volume] in Urine by Test strip NOR less joyce n 1.0 mg/dL [facility] MICROSCOPIC Not Indicate [facility] ID Date Data Source [id number] 09/13/2020 01:40:00 PM EST [facility] [address] [place] [address] PHONE: [phone] FAX: [phone] Name .................. : TR Whitley Acct Number.................. : [id number] ROOM. ................. : MR Number ................... : [id number] Stay type ............. : O/P Discharge Date......... ... : 09/12/20 Admit Date ......... : 09/12/20 Admit Phys .................... : REY PAUL Date of ....... : 1945 Family Phys ................... : CASPER Phone .................. : [phone] Age ................................ : 75 Film# .................. .:[id number] Sex ................................. : F Unsigned transcriptions are preliminary reports and do not represent a medical or legal document [place] COMPLETE LT [id number] COMPLETE:09/12/20 15:25 KBO 1498 (REASON FOR PROCESS: [...] CASPER RACHEL via modem Copy for: [facility] REC Page 1 of 1 Name Value Range Interpretation Code Description Data Ro rce(s) Supporting Document(s) ID Date Data Source [id number] 09/13/2020 01:40:00 PM EST [facility] [address] [address] PHONE: [phone] FAX: [phone] Name .................. : TR Whitley Acct Number.................. : [id number] ROOM. ................. : MR Number ................... : [id number] Stay type ............. : O/P Discharge Date......... ... : 09/12/20 Admit Date ......... : 09/12/20 Admit Phys .................... : REY BEVERLY Date of ....... : 1945 [facility] ................[facility] Phone .................. : [phone] Age ................................ : 75 Film# .................. .:[id number] Sex ................................. : F Unsigned transcriptions are preliminary reports and do not represent a medical or legal document SPINE LS COMPLETE [id number] COMPLETE:09/12/20 15:25 KBO 1497 (SPINE PROC REASON: [...] rce(s) Supporting Document(s) ID Date Data Source [id number] 09/12/2020 01:25:00 PM EST [facility] (Silver Peterson [...] >32 mL/min Normal ID Date Data Source [id number] 09/12/2020 01:25:00 PM EST [facility] (Silver Peterson [...] Peterson MD) COMMENT: ID Date Data Source [id number] 09/12/2020 02:48:00 PM [facility] Name Value Range Interpretation Code Description Data Ro rce(s) Supporting Document(s) COMPREHENSIVE METABOLIC PANEL [facility] COMPREHENSIVE METABOLIC PANEL Sodium [Moles/volume] in Serum or Plasma 144 mEq/L 134 - 153 [facility] Potassium [Moles/volume] in Serum or Plasma 5.2 mEq/L 3.6 - 5.0 H [facility] Chloride [Moles/volume] in Serum or Plasma 101 mEq/L 98 - 107 [facility] Carbon dioxide, total [Moles/volume] in Serum or Plasma 33 MEQ/L 22 - 30 H [facility] Glucose [Mass/volume] in Serum or Plasma 62 MG/DL 65 - 110 L [facility] BUN 62 MG/DL 7 - 21 H [facility] al Creatinine [Mass/volume] in Serum or Plasma 3.0 MG/DL 0.7 - 1.5 H [facility] BUN/CREAT 21 8 - 27 [facility] Protein [Mass/volume] in Serum or Plasma 6.7 G/DL 6.3 - 8.2 [facility] Albumin [Mass/volume] in Serum or Plasma 4.0 G/DL 3.9 - 5.0 [facility] Globulin [Mass/volume] in Serum by calculation 2.7 GM/DL 2.4 - 3.2 [facility] A/G RATIO 1.5 0.8 - 2.0 [facility] Calcium [Mass/volume] in Serum or Plasma 9.5 MG/DL 8.4 - 10.2 [facility] Bilirubin.total [Mass/volume] in Serum or Plasma <0.7 MG/DL 0.2 - 1.3 [facility] Alkaline phosphatase [Enzymatic activity/volume] in Serum or Plasma 76 U/L 38 - 126 [facility] Aspartate aminotransferase [Enzymatic activity/volume] in Serum or Plasma 10 U/L 5 - 40 [facility] Alanine aminotransferase [Enzymatic activity/volume] in Seru m or Plasma 8 U/L 7 - 56 [facility] Anion gap 3 in Serum or Plasma 10.0 mmol/L 8.0 - 16.0 [facility] 75 [facility] AFR AMER GFR >60 [facility] Male GFR In terprentation 20-49 [...] >32 mL/min Normal ID Date Data Source [id number] 09/12/2020 02:08:00 PM EST [facility] Name Value Range Interpretation Code Description Data Ro rce(s) Supporting Document(s) CBC W/AUTOMATED DIFF [facility] COMPLETE BLOOD COUNT Leukocytes [#/volume] in Blood by Automated count 9.1 10^3/uL 4.2 - 1 1.0 [facility] Erythrocytes [#/volume] in Blood by Automated count 3.20 10^6/uL 4. 20 - 5.40 L [facility] Hemoglobin [Mass/volume] in Blood 9.9 g/dL 12.0 - 16.0 L [facility] Hematocrit [Volume Fraction] of Blood by Automated count 32.5 % 3 7.0 - 47.0 L [facility] Erythrocyte mean corpuscular volume [Entitic volume] b y Automated count 101.6 fL 81.0 - 101 H [facility] Erythrocyte mean corpuscular hemoglobin [Entitic mass] by Automated count 30.9 pg 27.0 - 34.0 [facility] Erythrocyte mean corpuscular hemoglobin concentration [Mass/volume] by Automated count 30.5 g/dL 31.0 - 36.0 L [facility] Erythrocyte distribution width [Ratio] by Automated count 17.1 % 11.5 - 14.5 H [facility] Platelets [#/volume] in Blood by Automated count 272 10^3/uL 150 - 45 0 [facility] Platelet mean volume [Entitic volume] in Blood by Automated count 10.4 fL 7.4 - 10.4 [facility] Neutrophils/100 leukocytes in Blood by Automated count 65.8 % 37. 0 - 80.0 [facility] Lymphocytes/100 leukocytes in Blood by Manual count 17.2 % 25.0 - 40.0 L [facility] Monocytes/100 leukocytes in Blood by Automated count 12.2 % 3.0 - 8.0 H [facility] Eosinophils/100 leukocytes in Blood by Automated count 3.2 % 0.0 - 7.0 [facility] 0.5 %IG 1.1 % 0.0 - 0.0 H [facility] al %NRBC 0.0 % 0.0 - 0.0 [facility] Neutrophils [#/volume] in Blood by Automated count 5.99 10^3/uL 2.00 - 6.90 [facility] Lymphocytes [#/volume] in Blood by Automated count 1.57 10^3/uL 0.60 - 3.40 [facility] Monocytes [#/volume] in Blood by Automated count 1.11 10^3/uL 0.00 - 0.90 H [facility] Eosinophils [#/volume] in Blood by Automated count 0.29 10^3/uL 0.00 - 0.70 [facility] Basophils [#/volume] in Blood by Automated count 0.05 10^3/uL 0.00 - 0.20 [facility] #IG 0.10 10^3/uL 0.00 - 0.10 [facility] #NRBC 0.00 10^3/uL 0.00 - 0.00 [facility] MANUAL DIFF SEE BELOW [facility] ital Segmented neutrophils/100 leukocytes in Blood by Manual count 71 % 37 - 80 [facility] BAND 1 % 0 - 5 [facility] al %LYMPH 11 % 25 - 40 L [facility] %MONO 14 % 3 - 8 H [facility] %EOS 1 % 0 - 7 [facility] al 2 RBC MORPH SEE BELOW [facility] al Anisocytosis [Presence] in Blood by Light microscopy 1+ FARRUKH L: NONE SEEN A [facility] Macrocytes [Presence] in Blood by Light microscopy 1+ NORMAL: NONE SEEN A [facility] Poikilocytosis [Presence] in Blood by Light microscopy 1+ NOR MAL: NONE SEEN A [facility] { SICKLE CELL (NORMAL: NONE SEEN ) Ovalocytes [Presence] in Blood by Light microscopy 1+ NORMAL: NONE SEEN A [facility] Platelet adequacy [Presence] in Blood by Light microscopy NORMAL NORMAL: NORMAL [facility] COMMENT: ID Date Data Source [id number] 08/09/2020 02:36:00 PM EST [facility] (Silver Peterson [...] COMMENT: _0 08/09/20.1609.TAD. ID Date Data Source [id number] 08/09/2020 02:36:00 PM EST [facility] (Silver Peterson [...] >32 mL/min Normal ID Date Data Source [id number] 08/09/2020 02:36:00 PM EST [facility] (Silver Peterson [...] (Silver Peterson MD) ID Date Data Source [id number] 08/09/2020 04:09:00 PM EST [facility] Name Value Range Interpretation Code Description Data Ro rce(s) Supporting Document(s) CBC W/AUTOMATED DIFF [facility] COMPLETE BLOOD COUNT Leukocytes [#/volume] in Blood by Automated count 11.4 10^3/uL 4.2 - 11.0 H [facility] Erythrocytes [#/volume] in Blood by Automated count 3.80 10^6/uL 4. 20 - 5.40 L [facility] Hemoglobin [Mass/volume] in Blood 11.5 g/dL 12.0 - 16.0 L [facility] Hematocrit [Volume Fraction] of Blood by Automated count 37.9 % 3 7.0 - 47.0 [facility] Erythrocyte mean corpuscular volume [Entitic volume] by Auto mated count 99.7 fL 81.0 - 101 [facility] Erythrocyte mean corpuscular hemoglobin [Entitic mass] by Automated count 30.3 pg 27.0 - 34.0 [facility] Erythrocyte mean corpuscular hemoglobin concentration [Mass/volume] by Automated count 30.3 g/dL 31.0 - 36.0 L [facility] Erythrocyte distribution width [Ratio] by Automated count 17.2 % 11.5 - 14.5 H [facility] Platelets [#/volume] in Blood by Automated count 287 10^3/uL 150 - 45 0 [facility] Platelet mean volume [Entitic volume] in Blood by Automated count 10.5 fL 7.4 - 10.4 H [facility] Neutrophils/100 leukocytes in Blood by Automated count 70.6 % 37. 0 - 80.0 [facility] Lymphocytes/100 leukocytes in Blood by Manual count 14.1 % 25.0 - 40.0 L [facility] Monocytes/100 leukocytes in Blood by Automated count 9.8 % 3.0 - 8.0 H [facility] Eosinophils/100 leukocytes in Blood by Automated count 1.5 % 0.0 - 7.0 [facility] Basophils/100 leukocytes in Blood by Automated count 0.7 % 0.0 - 2.5 [facility] %IG 3.3 % 0.0 - 0.0 H [facility] al %NRBC 0.0 % 0.0 - 0.0 [facility] al Neutrophils [#/volume] in Blood by Automated count 8.04 10^3/uL 2.00 - 6.90 H [facility] Lymphocytes [#/volume] in Blood by Automated count 1.60 10^3/uL 0.60 - 3.40 [facility] Monocytes [#/volume] in Blood by Automated count 1.11 10^3/uL 0.00 - 0.90 H [facility] Eosinophils [#/volume] in Blood by Automated count 0.17 10^3/uL 0.00 - 0.70 [facility] Basophils [#/volume] in Blood by Automated count 0.08 10^3/uL 0.00 - 0.20 [facility] #IG 0.37 10^3/uL 0.00 - 0.10 H [facility] #NRBC 0.00 10^3/uL 0.00 - 0.00 [facility] ospital MANUAL DIFF SEE BELOW [facility] ital Segmented neutrophils/100 leukocytes in Blood by Manual count 78 % 37 - 80 [facility] %LYMPH 16 % 25 - 40 L [facility] al %MONO 4 % 3 - 8 [facility] al %EOS 2 % 0 - 7 [facility] al RBC MORPH SEE BELOW [facility] al Anisocytosis [Presence] in Blood by Light microscopy 1+ FARRUKH L: NONE SEEN A [facility] { SICKLE CELL (NORMAL: NONE SEEN ) Platelet adequacy [Presence] in Blood by Light microscopy NORMAL NORMAL: NORMAL [facility] COMMENT: _0 08/09/20.1609.TAD. ID Date Data Source [id number] 08/09/2020 04:02:00 PM EST [facility] Name Value Range Interpretation Code Description Data Ro rce(s) Supporting Document(s) COMPREHENSIVE METABOLIC PANEL [facility] COMPREHENSIVE METABOLIC PANEL Sodium [Moles/volume] in Serum or Plasma 142 mEq/L 134 - 153 [facility] Potassium [Moles/volume] in Serum or Plasma 5.1 mEq/L 3.6 - 5.0 H [facility] Chloride [Moles/volume] in Serum or Plasma 101 mEq/L 98 - 107 [facility] Carbon dioxide, total [Moles/volume] in Serum or Plasma 32 MEQ/L 22 - 30 H [facility] Glucose [Mass/volume] in Serum or Plasma 126 MG/DL 65 - 110 H [facility] BUN 57 MG/DL 7 - 21 H [facility] al Creatinine [Mass/volume] in Serum or Plasma 2.4 MG/DL 0.7 - 1.5 H [facility] BUN/CREAT 24 8 - 27 [facility] Protein [Mass/volume] in Serum or Plasma 6.7 G/DL 6.3 - 8.2 [facility] Albumin [Mass/volume] in Serum or Plasma 4.1 G/DL 3.9 - 5.0 [facility] Globulin [Mass/volume] in Serum by calculation 2.6 GM/DL 2.4 - 3.2 [facility] A/G RATIO 1.6 0.8 - 2.0 [facility] al Calcium [Mass/volume] in Serum or Plasma 9.6 MG/DL 8.4 - 10.2 [facility] Bilirubin.total [Mass/volume] in Serum or Plasma <0.7 MG/DL 0.2 - 1.3 [facility] Alkaline phosphatase [Enzymatic activity/volume] in Serum or Plasma 65 U/L 38 - 126 [facility] Aspartate aminotransferase [Enzymatic activity/volume] in Se rum or Plasma 8 U/L 5 - 40 [facility] Alanine aminotransferase [Enzymatic activity/volume] in Seru m or Plasma 7 U/L 7 - 56 [facility] Anion gap 3 in Serum or Plasma 9.0 mmol/L 8.0 - 16.0 [facility] AGE 75 yrs [facility] al NON-AA GFR 21 mL/min [facility] AFR AMER GFR >60 [facility] Male GFR In terprentation 20-49 [...] >32 mL/min Normal ID Date Data Source [id number] 08/09/2020 04:02:00 PM [facility] Name Value Range Interpretation Code Description Data Ro rce(s) Supporting Document(s) Magnesium [Mass/volume] in Serum or Plasma 1.5 MG/DL 1.7 - 2.2 L [facility] ID Date Data Source [id number] 08/09/2020 04:02:00 PM [facility] Value Range Interpretation Code Description Data Ro rce(s) Supporting Document(s) Iron [Mass/volume] in Serum or Plasma 75 UG/DL 42 - 135 [facility] ID Date Data Source [id number] 08/09/2020 04:02:00 PM EST [facility] Name Value Range Interpretation Code Description Data Ro rce(s) Supporting Document(s) BNP 1329 PG/ML 0 - 125 H [facility] booker ID Date Data Source [id number] 08/09/2020 03:48:00 PM EST [facility] Name Value Range Interpretation Code Description Data Ro rce(s) Supporting Document(s) Fibrin D-dimer FEU [Mass/volume] in Platelet poor plasma 3.96 ug /mL 0.27 - 0.50 H [facility] ID Date Data Source [id number] 06/12/2020 10:46:00 [place] [address] PROGRESS NOTENAME: TR Whitley ROOM#: 119-1DATE OF : 1945 MR#: [id number] DATE: 05/28/20 OF SERVICE: 06/12/2020SUBJECTIVE:This patient has [...] rce(s) Supporting Document(s) ID Date Data Source [id number] 06/15/2020 02:17:00 [place] [address] DISCHARGE SUMMARYNAME: TR Whitley ROOM#: 119-1DATE OF : 1945 MR#: [id number] PHYS: Silver Peterson MD, PC DATE: 05/28/20 [...] ring because of regurgitation. [facility]. On examination, blood pressure was 130/80. [...] was 46, creatinine was 2.1. BNP [place] [address]84. On 06/04, sodium was 143, potassiumwas 4.3, [...] IV was given for low hemoglobin. [address] [place] [address] DISCHARGE SUMMARYNAME: TR Whitley ROOM#: 119-1DATE OF : 1945 MR#: [id number] PHYS: Silver Peterson MD, PC DATE: 05/28/20 [...] 1 mg daily6. Gabapentin 100 mg b.i.d.7. [place] was stopped.8. Protonix 40 mg daily9. Plavix was stopped.10. Venlafaxine 60 mg daily11. Ventolin inhaler p.r.n.12. Metformin was qtbwmcy81. Januvia was added at 50 mg daily [...] valve ring.5. History of atrial fibrillation [address] [place] [address] DISCHARGE SUMMARYNAME: TR Whitley ROOM#: 119-1DATE OF : 1945 MR#: [id number] PHYS: Silver Peterson MD, PC DATE: 05/28/20 [...] rce(s) Supporting Document(s) ID Date Data Source [id number] 06/13/2020 12:18:00 [place] [address] PHONE: [phone] FAX: [phone] Name .................. : TR Whitley Acct Number.................. : [id number] ROOM. ................. : 119-1 MR Number ................... : [id number] Stay type ............. : I/P Discharge Date......... ... : Admit Date ......... : 05/28/20 Admit Phys .................... : REY BEVERLY Date of ....... : 1945 Family Phys ................... : CASPER Phone .................. : [phone] Age ................................ : 75 Film# .................. .:[id number] Sex ................................. : F Unsigned transcriptions are preliminary reports and do not represent a medical or legal document RENAL/URINARY BLADDER [id number] COMPLETE:06/11/20 12:38 BAW 77271 (PROCEDURE REASON :HYDRONEPHROSIS RENAL AND BLADDER ULTRASOUND: [...] Date: 06/11/20 16:52, Dictation Date: Copy for: [address] [place] [address] REC DISCHARGED Page 1 of 1 Name Value Range Interpretation Code Description Data Ro rce(s) Supporting Document(s) ID Date Data Source [id number] 06/13/2020 07:09:00 AM EDT [facility] Name Value Range Interpretation Code Description Data Ro rce(s) Supporting Document(s) CBC W/AUTOMATED DIFF [facility] COMPLETE BLOOD COUNT Leukocytes [#/volume] in Blood by Automated count 6.4 10^3/uL 4.2 - 1 1.0 [facility] Erythrocytes [#/volume] in Blood by Automated count 2.92 10^6/uL 4. 20 - 5.40 L [facility] Hemoglobin [Mass/volume] in Blood 8.8 g/dL 12.0 - 16.0 L [facility] Hematocrit [Volume Fraction] of Blood by Automated count 29.9 % 3 7.0 - 47.0 L [facility] Erythrocyte mean corpuscular volume [Entitic volume] b y Automated count 102.4 fL 81.0 - 101 H [facility] Erythrocyte mean corpuscular hemoglobin [Entitic mass] by Automated count 30.1 pg 27.0 - 34.0 [facility] Erythrocyte mean corpuscular hemoglobin concentration [Mass/volume] by Automated count 29.4 g/dL 31.0 - 36.0 L [facility] Erythrocyte distribution width [Ratio] by Automated count 17.0 % 11.5 - 14.5 H [facility] Platelets [#/volume] in Blood by Automated count 227 10^3/uL 150 - 45 0 [facility] Platelet mean volume [Entitic volume] in Blood by Automated count 9.8 fL 7.4 - 10.4 [facility] Neutrophils/100 leukocytes in Blood by Automated count 64.1 % 37. 0 - 80.0 [facility] Lymphocytes/100 leukocytes in Blood by Manual count 11.7 % 25.0 - 40.0 L [facility] Monocytes/100 leukocytes in Blood by Automated count 14.5 % 3.0 - 8.0 H [facility] Eosinophils/100 leukocytes in Blood by Automated count 8.3 % 0.0 - 7.0 H [facility] Basophils/100 leukocytes in Blood by Automated count 0.5 % 0.0 - 2.5 [facility] %IG 0.9 % 0.0 - 0.0 H [facility] al %NRBC 0.0 % 0.0 - 0.0 [facility] al Neutrophils [#/volume] in Blood by Automated count 4.07 10^3/uL 2.00 - 6.90 [facility] Lymphocytes [#/volume] in Blood by Automated count 0.74 10^3/uL 0.60 - 3.40 [facility] Monocytes [#/volume] in Blood by Automated count 0.92 10^3/uL 0.00 - 0.90 H [facility] Eosinophils [#/volume] in Blood by Automated count 0.53 10^3/uL 0.00 - 0.70 [facility] Basophils [#/volume] in Blood by Automated count 0.03 10^3/uL 0.00 - 0.20 [facility] #IG 0.06 10^3/uL 0.00 - 0.10 [facility] ospital #NRBC 0.00 10^3/uL 0.00 - 0.00 [facility] ospital MANUAL DIFF NOT INDICATED [facility] RBC MORPH NOT INDICATED [facility] spital ID Date Data Source [id number] 06/13/2020 07:06:00 AM EDT [facility] Name Value Range Interpretation Code Description Data Ro rce(s) Supporting Document(s) COMPREHENSIVE METABOLIC PANEL [facility] COMPREHENSIVE METABOLIC PANEL Sodium [Moles/volume] in Serum or Plasma 144 mEq/L 134 - 153 [facility] Potassium [Moles/volume] in Serum or Plasma 4.5 mEq/L 3.6 - 5.0 [facility] Chloride [Moles/volume] in Serum or Plasma 104 mEq/L 98 - 107 [facility] Carbon dioxide, total [Moles/volume] in Serum or Plasma 35 MEQ/L 22 - 30 H [facility] Glucose [Mass/volume] in Serum or Plasma 98 MG/DL 65 - 110 [facility] BUN 41 MG/DL 7 - 21 H [facility] al Creatinine [Mass/volume] in Serum or Plasma 1.9 MG/DL 0.7 - 1.5 H [facility] BUN/CREAT 22 8 - 27 [facility] Protein [Mass/volume] in Serum or Plasma 5.3 G/DL 6.3 - 8.2 L [facility] Albumin [Mass/volume] in Serum or Plasma 3.3 G/DL 3.9 - 5.0 L [facility] Globulin [Mass/volume] in Serum by calculation 2.0 GM/DL 2.4 - 3.2 L [facility] A/G RATIO 1.7 0.8 - 2.0 [facility] Calcium [Mass/volume] in Serum or Plasma 8.7 MG/DL 8.4 - 10.2 [facility] Bilirubin.total [Mass/volume] in Serum or Plasma <0.7 MG/DL 0.2 - 1.3 [facility] Alkaline phosphatase [Enzymatic activity/volume] in Serum or Plasma 94 U/L 38 - 126 [facility] Aspartate aminotransferase [Enzymatic activity/volume] in Serum or Plasma 14 U/L 5 - 40 [facility] Alanine aminotransferase [Enzymatic activity/volume] in Seru m or Plasma 25 U/L 7 - 56 [facility] Anion gap 3 in Serum or Plasma 5.0 mmol/L 8.0 - 16.0 L [facility] AGE 75 yrs [facility] al NON-AA GFR 28 mL/min [facility] AFR AMER GFR >60 [facility] Male GFR In terprentation 20-49 [...] >32 mL/min Normal ID Date Data Source [id number] 06/12/2020 01:24:00 PM EDT [facility] [address] [place] [address] PHONE: [phone] FAX: [phone] Name .................. : PATRICIADEIV Whitley Acct Number.................. : [id number] ROOM. ................. : 119-1 MR Number ................... : [id number] Stay type ............. : I/P Discharge Date......... ... : Admit Date ......... : 05/10 Admit Phys .................... : REY BEVERLY Date of ....... : 1945 Family Phys ................... : [employer] Phone .................. : [phone] Age ................................ : 75 Film# .................. .:[id number] Sex ................................. : F Unsigned transcriptions are preliminary reports and do not represent a medical or legal document CT THORAX W/O CONTRAST [id number] COMPLETE:06/09/20 09:55 SAIMA 62022 (REASON FOR CHEST: EFFUSION CT OF THE [...] , 06/12/20 13:24, [facility] [address] [place] [address] [place] [address] PHONE: [phone] FAX: [phone] Name .................. : TR Whitley Acct Number.................. : [id number] ROOM. ................. : 119-1 MR Number ................... : [id number] Stay type ............. : I/P Discharge Date......... ... : Admit Date ......... : 05/28/20 Admit Phys .................... : REY MIR Date of ....... : 1945 [place] ................... [place] Phone .................. : [phone] Age ................................ : 75 Film# .................. .:[id number] Sex ................................. : F Unsigned transcriptions are preliminary reports and do not represent a medical or legal document CT [facility]AX W/O CONTRAST 27756 COMPLETE:06/09/20 09:55 SAIMA 16204 (REASON FOR CHEST: EFFUSION Transcribe Initials: DZ , Transcribe Date: 06/10/20 03:30, Dictation Date: Copy for: 002 [facility] Copy for: 710 [facility] REC Page 2 of 2 Name Value Range Interpretation Code Description Data Ro rce(s) Supporting Document(s) ID Date Data Source [id number] 06/11/2020 11:46:00 [place] [address] PROGRESS NOTENAME: TR Whitley ROOM#: 119-1DATE OF : 1945 MR#: [id number] DATE: 05/28/20 OF SERVICE: 06/11/20UBJECTIVE: This patient [...] rce(s) Supporting Document(s) ID Date Data Source [id number] 06/10/2020 11:17:00 [place] [address] PROGRESS NOTENAME: TR Whitley ROOM#: 119-1DATE OF : 1945 MR#: [id number] DATE: 05/28/20 OF SERVICE: 06/10/20UBJECTIVE: This patient's [...] rce(s) Supporting Document(s) ID Date Data Source [id number] 06/09/2020 01:00:00 [place] [address] PROGRESS NOTENAME: TR Whitley ROOM#: 119-1DATE OF : 1945 MR#: [id number] DATE: 05/28/20 OF SERVICE: 06/09/20UBJECTIVE: This patient's [...] rce(s) Supporting Document(s) ID Date Data Source [id number] 06/08/2020 10:48:00 [place] [address] PROGRESS NOTENAME: TR Whitley ROOM#: 119-1DATE OF : 1945 MR#: [id number] DATE: 05/28/20 OF SERVICE: 06/08/2020SUBJECTIVE:This 75-year-old white [...] rce(s) Supporting Document(s) ID Date Data Source [id number] 06/07/2020 10:47:00 [place] [address] PROGRESS NOTENAME: TR Whitley ROOM#: 119-1DATE OF : 1945 MR#: [id number] DATE: 05/28/20 OF SERVICE: 06/07/2020SUBJECTIVE:Patient feels better. [...] rce(s) Supporting Document(s) ID Date Data Source [id number] 06/06/2020 01:48:00 [place] [address] PROGRESS NOTENAME: RT Whitley ROOM#: 119-1DATE OF : 1945 MR#: [id number] DATE: 05/28/20 OF SERVICE: 06/06/2020SUBJECTIVE:This patient is [...] Silver Peterson MD, PC 06/06/20 09:54DT: [facility] 06/06/20 13:48DS: Silver Peterson MD, PC 06/12/20 07:51 1 Name Value Range Interpretation Code Description Data Ro rce(s) Supporting Document(s) ID Date Data Source [id number] 06/05/2020 11:50:00 [place] [address] PROGRESS NOTENAME: TR Whitley ROOM#: 119-1DATE OF : 1945 MR#: [id number] DATE: 05/28/20 OF SERVICE: 06/05/2020SUBJECTIVE:Patient complains of [...] Name Value Range Interpretation Code Description Data [facility] Document(s) ID Date Data Source [id number] 06/12/2020 06:55:00 AM EDT [facility] Name Value Range Interpretation Code Description Data [facility](s) Supporting Document(s) CBC W/AUTOMATED DIFF [facility] COMPLETE BLOOD COUNT Leukocytes [#/volume] in Blood by Automated count 6.3 10^3/uL 4.2 - 1 1.0 [facility] Erythrocytes [#/volume] in Blood by Automated count 2.81 10^6/uL 4. 20 - 5.40 L [facility] Hemoglobin [Mass/volume] in Blood 8.6 g/dL 12.0 - 16.0 L [facility] Hematocrit [Volume Fraction] of Blood by Automated count 28.9 % 3 7.0 - 47.0 L [facility] Erythrocyte mean corpuscular volume [Entitic volume] b y Automated count 102.8 fL 81.0 - 101 H [facility] Erythrocyte mean corpuscular hemoglobin [Entitic mass] by Automated count 30.6 pg 27.0 - 34.0 [facility] Erythrocyte mean corpuscular hemoglobin concentration [Mass/volume] by Automated count 29.8 g/dL 31.0 - 36.0 L [facility] Erythrocyte distribution width [Ratio] by Automated count 17.0 % 11.5 - 14.5 H [facility] Platelets [#/volume] in Blood by Automated count 203 10^3/uL 150 - 45 0 [facility] Platelet mean volume [Entitic volume] in Blood by Automated count 10.2 fL 7.4 - 10.4 [facility] Neutrophils/100 leukocytes in Blood by Automated count 66.5 % 37. 0 - 80.0 [facility] Lymphocytes/100 leukocytes in Blood by Manual count 11.4 % 25.0 - 40.0 L [facility] Monocytes/100 leukocytes in Blood by Automated count 13.4 % 3.0 - 8.0 H [facility] Eosinophils/100 leukocytes in Blood by Automated count 7.6 % 0.0 - 7.0 H [facility] 0.3 %IG 0.8 % 0.0 - 0.0 H [facility] al %NRBC 0.0 % 0.0 - 0.0 [facility] al Neutrophils [#/volume] in Blood by Automated count 4.18 10^3/uL 2.00 - 6.90 [facility] Lymphocytes [#/volume] in Blood by Automated count 0.72 10^3/uL 0.60 - 3.40 [facility] Monocytes [#/volume] in Blood by Automated count 0.84 10^3/uL 0.00 - 0.90 [facility] Eosinophils [#/volume] in Blood by Automated count 0.48 10^3/uL 0.00 - 0.70 [facility] Basophils [#/volume] in Blood by Automated count 0.02 10^3/uL 0.00 - 0.20 [facility] #IG 0.05 10^3/uL 0.00 - 0.10 [facility] ospital #NRBC 0.00 10^3/uL 0.00 - 0.00 [facility] H ospital MANUAL DIFF SEE BELOW [facility] ital Segmented neutrophils/100 leukocytes in Blood by Manual count 73 % 37 - 80 [facility] BAND 0 % 0 - 5 [facility] al %LYMPH 13 % 25 - 40 [facility] %MONO 6 % 3 - 8 [facility] %EOS 8 % 0 - 7 [facility] 0 RBC MORPH NOT INDICATED [facility] Ho spital ID Date Data Source [id number] 06/12/2020 06:54:00 AM EDT [facility] Name Value Range Interpretation Code Description Data Ro rce(s) Supporting Document(s) COMPREHENSIVE METABOLIC PANEL [facility] COMPREHENSIVE METABOLIC PANEL Sodium [Moles/volume] in Serum or Plasma 143 mEq/L 134 - 153 [facility] Potassium [Moles/volume] in Serum or Plasma 4.4 mEq/L 3.6 - 5.0 [facility] Chloride [Moles/volume] in Serum or Plasma 101 mEq/L 98 - 107 [facility] Carbon dioxide, total [Moles/volume] in Serum or Plasma 36 MEQ/L 22 - 30 H [facility] Glucose [Mass/volume] in Serum or Plasma 115 MG/DL 65 - 110 H [facility] BUN 44 MG/DL 7 - 21 H [facility] al Creatinine [Mass/volume] in Serum or Plasma 2.7 MG/DL 0.7 - 1.5 H [facility] BUN/CREAT 16 8 - 27 [facility] al Protein [Mass/volume] in Serum or Plasma 5.6 G/DL 6.3 - 8.2 L [facility] Albumin [Mass/volume] in Serum or Plasma 3.4 G/DL 3.9 - 5.0 L [facility] Globulin [Mass/volume] in Serum by calculation 2.2 GM/DL 2.4 - 3.2 L [facility] A/G RATIO 1.5 0.8 - 2.0 [facility] al Calcium [Mass/volume] in Serum or Plasma 8.2 MG/DL 8.4 - 10.2 L [facility] Bilirubin.total [Mass/volume] in Serum or Plasma <0.7 MG/DL 0.2 - 1.3 [facility] Alkaline phosphatase [Enzymatic activity/volume] in Serum or Plasma 96 U/L 38 - 126 [facility] Aspartate aminotransferase [Enzymatic activity/volume] in Serum or Plasma 19 U/L 5 - 40 [facility] Alanine aminotransferase [Enzymatic activity/volume] in Seru m or Plasma 29 U/L 7 - 56 [facility] Anion gap 3 in Serum or Plasma 6.0 mmol/L 8.0 - 16.0 L [facility] AGE 75 yrs [facility] al NON-AA GFR 18 mL/min [facility] booker AFR AMER GFR >60 [facility] Male GFR In terprentation 20-49 [...] >32 mL/min Normal ID Date Data Source [id number] 06/04/2020 11:02:00 [place] [address] PROGRESS NOTENAME: TR Whitley ROOM#: 119-1DATE OF : 1945 MR#: [id number] DATE: 05/28/20 OF SERVICE: 06/04/20UBJECTIVE: She was [...] rce(s) Supporting Document(s) ID Date Data Source [id number] 06/03/2020 11:06:00 [place] [address] PROGRESS NOTENAME: TR Whitley ROOM#: 119-1DATE OF : 1945 MR#: [id number] DATE: 05/28/20 OF SERVICE: 06/03/20UBJECTIVE: She was [...] the AM.3. Continue other medications without change.DD: ALEXADNR Pulliam 06/03/20 15:26DT: RAMIRO 06/03/20 22:56DS: ALEXANDR Pulliam 06/11/20 15:33 1 Name Value Range Interpretation Code Description Data Ro rce(s) Supporting Document(s) ID Date Data Source [id number] 06/11/2020 08:01:00 AM T [facility] Name Value Range Interpretation Code Description Data Ro rce(s) Supporting Document(s) CBC W/AUTOMATED DIFF [facility] COMPLETE BLOOD COUNT Leukocytes [#/volume] in Blood by Automated count 5.6 10^3/uL 4.2 - 1 1.0 [facility] Erythrocytes [#/volume] in Blood by Automated count 2.90 10^6/uL 4. 20 - 5.40 L [facility] Hemoglobin [Mass/volume] in Blood 8.9 g/dL 12.0 - 16.0 L [facility] Hematocrit [Volume Fraction] of Blood by Automated count 30.2 % 3 7.0 - 47.0 L [facility] Erythrocyte mean corpuscular volume [Entitic volume] b y Automated count 104.1 fL 81.0 - 101 H [facility] Erythrocyte mean corpuscular hemoglobin [Entitic mass] by Automated count 30.7 pg 27.0 - 34.0 [facility] Erythrocyte mean corpuscular hemoglobin concentration [Mass/volume] by Automated count 29.5 g/dL 31.0 - 36.0 L [facility] Erythrocyte distribution width [Ratio] by Automated count 17.3 % 11.5 - 14.5 H [facility] Platelets [#/volume] in Blood by Automated count 198 10^3/uL 150 - 45 0 [facility] Platelet mean volume [Entitic volume] in Blood by Automated count 10.3 fL 7.4 - 10.4 [facility] Neutrophils/100 leukocytes in Blood by Automated count 61.0 % 37. 0 - 80.0 [facility] Lymphocytes/100 leukocytes in Blood by Manual count 13.5 % 25.0 - 40.0 L [facility] Monocytes/100 leukocytes in Blood by Automated count 16.3 % 3.0 - 8.0 H [facility] Eosinophils/100 leukocytes in Blood by Automated count 7.6 % 0.0 - 7.0 H [facility] Basophils/100 leukocytes in Blood by Automated count 0.7 % 0.0 - 2.5 [facility] %IG 0.9 % 0.0 - 0.0 [facility] %[facility] 0.0 % 0.0 - 0.0 [facility] al Neutrophils [#/volume] in Blood by Automated count 3.43 10^3/uL 2.00 - 6.90 [facility] Lymphocytes [#/volume] in Blood by Automated count 0.76 10^3/uL 0.60 - 3.40 [facility] Monocytes [#/volume] in Blood by Automated count 0.92 10^3/uL 0.00 - 0.90 H [facility] Eosinophils [#/volume] in Blood by Automated count 0.43 10^3/uL 0.00 - 0.70 [facility] Basophils [#/volume] in Blood by Automated count 0.04 10^3/uL 0.00 - 0.20 [facility] #IG 0.05 10^3/uL 0.00 - 0.10 [facility] H ospital #NRBC 0.00 10^3/uL 0.00 - 0.00 [facility] ospital MANUAL DIFF NOT INDICATED [facility] RBC MORPH NOT INDICATED [facility] spital ID Date Data Source [id number] 06/11/2020 08:00:00 AM EDT [facility] Name Value Range Interpretation Code Description Data Ro rce(s) Supporting Document(s) COMPREHENSIVE METABOLIC PANEL [facility] COMPREHENSIVE METABOLIC PANEL Sodium [Moles/volume] in Serum or Plasma 143 mEq/L 134 - 153 [facility] Potassium [Moles/volume] in Serum or Plasma 5.6 mEq/L 3.6 - 5.0 H [facility] Chloride [Moles/volume] in Serum or Plasma 104 mEq/L 98 - 107 [facility] Carbon dioxide, total [Moles/volume] in Serum or Plasma 34 MEQ/L 22 - 30 H [facility] Glucose [Mass/volume] in Serum or Plasma 90 MG/DL 65 - 110 [facility] BUN 34 MG/DL 7 - 21 H [facility] al Creatinine [Mass/volume] in Serum or Plasma 1.9 MG/DL 0.7 - 1.5 H [facility] BUN/CREAT 18 8 - 27 [facility] Protein [Mass/volume] in Serum or Plasma 5.5 G/DL 6.3 - 8.2 L [facility] Albumin [Mass/volume] in Serum or Plasma 3.4 G/DL 3.9 - 5.0 L [facility] Globulin [Mass/volume] in Serum by calculation 2.1 GM/DL 2.4 - 3.2 L [facility] A/G RATIO 1.6 0.8 - 2.0 [facility] Calcium [Mass/volume] in Serum or Plasma 8.1 MG/DL 8.4 - 10.2 L [facility] Bilirubin.total [Mass/volume] in Serum or Plasma <0.7 MG/DL 0.2 - 1.3 [facility] Alkaline phosphatase [Enzymatic activity/volume] in Serum or Plasma 76 U/L 38 - 126 [facility] Aspartate aminotransferase [Enzymatic activity/volume] in Serum or Plasma 12 U/L 5 - 40 [facility] Alanine aminotransferase [Enzymatic activity/volume] in Seru m or Plasma 11 U/L 7 - 56 [facility] Anion gap 3 in Serum or Plasma 5.0 mmol/L 8.0 - 16.0 L [facility] AGE 75 yrs [facility] al NON-AA GFR 28 mL[facility]min [facility] AFR AMER GFR >60 [facility] Male GFR In terprentation 20-49 [...] >32 mL/min Normal ID Date Data Source [id number] 06/11/2020 07:52:00 AM EDT [facility] Name Value Range Interpretation Code Description Data Ro rce(s) Supporting Document(s) Cobalamin (Vitamin B12) [Mass/volume] in Serum or Plasma 759 PG/ML 232 - 1245 [facility] ID Date Data Source [id number] 06/11/2020 07:40:00 AM EDT [facility] Name Value Range Interpretation Code Description Data Ro rce(s) Supporting Document(s) Magnesium [Mass/volume] in Serum or Plasma 1.9 MG/DL 1.7 - 2.2 [facility] ID Date Data Source [id number] 06/10/2020 12:33:00 PM EDT [facility] Name Value Range Interpretation Code Description Data Ro rce(s) Supporting Document(s) Iron [Mass/volume] in Serum or Plasma 33 UG/DL 42 - 135 L [facility] ID Date Data Source [id number] 06/10/2020 08:07:00 AM EDT [facility] Name Value Range Interpretation Code Description Data Ro rce(s) Supporting Document(s) CBC W/AUTOMATED DIFF [facility] COMPLETE BLOOD COUNT Leukocytes [#/volume] in Blood by Automated count 6.0 10^3/uL 4.2 - 1 1.0 [facility] Erythrocytes [#/volume] in Blood by Automated count 2.91 10^6/uL 4. 20 - 5.40 L [facility] Hemoglobin [Mass/volume] in Blood 8.9 g/dL 12.0 - 16.0 L [facility] Hematocrit [Volume Fraction] of Blood by Automated count 30.2 % 3 7.0 - 47.0 L [facility] Erythrocyte mean corpuscular volume [Entitic volume] b y Automated count 103.8 fL 81.0 - 101 H [facility] Erythrocyte mean corpuscular hemoglobin [Entitic mass] by Automated count 30.6 pg 27.0 - 34.0 [facility] Erythrocyte mean corpuscular hemoglobin concentration [Mass/volume] by Automated count 29.5 g/dL 31.0 - 36.0 L [facility] Erythrocyte distribution width [Ratio] by Automated count 17.5 % 11.5 - 14.5 H [facility] Platelets [#/volume] in Blood by Automated count 185 10^3/uL 150 - 45 0 [facility] Platelet mean volume [Entitic volume] in Blood by Automated count 10.2 fL 7.4 - 10.4 [facility] Neutrophils/100 leukocytes in Blood by Automated count 62.8 % 37. 0 - 80.0 [facility] Lymphocytes/100 leukocytes in Blood by Manual count 13.7 % 25.0 - 40.0 L [facility] Monocytes/100 leukocytes in Blood by Automated count 15.2 % 3.0 - 8.0 H [facility] Eosinophils/100 leukocytes in Blood by Automated count 6.8 % 0.0 - 7.0 [facility] Basophils/100 leukocytes in Blood by Automated count 0.5 % 0.0 - 2.5 [facility] %IG 1.0 % 0.0 - 0.0 H [facility] al %NRBC 0.0 % 0.0 - 0.0 [facility] al Neutrophils [#/volume] in Blood by Automated count 3.77 10^3/uL 2.00 - 6.90 [facility] Lymphocytes [#/volume] in Blood by Automated count 0.82 10^3/uL 0.60 - 3.40 [facility] Monocytes [#/volume] in Blood by Automated count 0.91 10^3/uL 0.00 - 0.90 H [facility] Eosinophils [#/volume] in Blood by Automated count 0.41 10^3/uL 0.00 - 0.70 [facility] Basophils [#/volume] in Blood by Automated count 0.03 10^3/uL 0.00 - 0.20 [facility] #IG 0.06 10^3/uL 0.00 - 0.10 [facility] ospital #NRBC 0.00 10^3/uL 0.00 - 0.00 [facility] ospital MANUAL DIFF NOT INDICATED [facility] RBC MORPH NOT INDICATED [facility] Ho spital ID Date Data Source [id number] 06/10/2020 07:46:00 AM EDT [facility] Name Value Range Interpretation Code Description Data Ro rce(s) Supporting Document(s) COMPREHENSIVE METABOLIC PANEL [facility] COMPREHENSIVE METABOLIC PANEL Sodium [Moles/volume] in Serum or Plasma 144 mEq/L 134 - 153 [facility] Potassium [Moles/volume] in Serum or Plasma 5.1 mEq/L 3.6 - 5.0 H [facility] Chloride [Moles/volume] in Serum or Plasma 102 mEq/L 98 - 107 [facility] Carbon dioxide, total [Moles/volume] in Serum or Plasma 36 MEQ/L 22 - 30 H [facility] Glucose [Mass/volume] in Serum or Plasma 102 MG/DL 65 - 110 [facility] BUN 42 MG/DL 7 - 21 H [facility] Creatinine [Mass/volume] in Serum or Plasma 2.1 MG/DL 0.7 - 1.5 H [facility] BUN/CREAT 20 8 - 27 [facility] Protein [Mass/volume] in Serum or Plasma 5.4 G/DL 6.3 - 8.2 L [facility] Albumin [Mass/volume] in Serum or Plasma 3.4 G/DL 3.9 - 5.0 L [facility] Globulin [Mass/volume] in Serum by calculation 2.0 GM/DL 2.4 - 3.2 L [facility] A/G RATIO 1.7 0.8 - 2.0 [facility] Calcium [Mass/volume] in Serum or Plasma 8.3 MG/DL 8.4 - 10.2 L [facility] Bilirubin.total [Mass/volume] in Serum or Plasma <0.7 MG/DL 0.2 - 1.3 [facility] Alkaline phosphatase [Enzymatic activity/volume] in Serum or Plasma 72 U/L 38 - 126 [facility] Aspartate aminotransferase [Enzymatic activity/volume] in Serum or Plasma 10 U/L 5 - 40 [facility] Alanine aminotransferase [Enzymatic activity/volume] in Seru m or Plasma 9 U/L 7 - 56 [facility] Anion gap 3 in Serum or Plasma 6.0 mmol/L 8.0 - 16.0 L [facility] AGE 75 yrs [facility] al NON-AA GFR 25 mL/min [facility] AFR AMER GFR >60 [facility] Male GFR In terprentation 20-49 [...] >32 mL/min Normal ID Date Data Source [id number] 06/09/2020 07:02:00 AM EDT [facility] Name Value Range Interpretation Code Description Data Ro rce(s) Supporting Document(s) COMPREHENSIVE METABOLIC PANEL [facility] COMPREHENSIVE METABOLIC PANEL Sodium [Moles/volume] in Serum or Plasma 145 mEq/L 134 - 153 [facility] Potassium [Moles/volume] in Serum or Plasma 5.0 mEq/L 3.6 - 5.0 [facility] Chloride [Moles/volume] in Serum or Plasma 103 mEq/L 98 - 107 [facility] Carbon dioxide, total [Moles/volume] in Serum or Plasma 36 MEQ/L 22 - 30 H [facility] Glucose [Mass/volume] in Serum or Plasma 107 MG/DL 65 - 110 [facility] BUN 46 MG/DL 7 - 21 H [facility] al Creatinine [Mass/volume] in Serum or Plasma 1.7 MG/DL 0.7 - 1.5 H [facility] BUN/CREAT 27 8 - 27 [facility] Protein [Mass/volume] in Serum or Plasma 5.4 G/DL 6.3 - 8.2 L [facility] Albumin [Mass/volume] in Serum or Plasma 3.6 G/DL 3.9 - 5.0 L [facility] Globulin [Mass/volume] in Serum by calculation 1.8 GM/DL 2.4 - 3.2 L [facility] A/G RATIO 2.0 0.8 - 2.0 [facility] Calcium [Mass/volume] in Serum or Plasma 8.8 MG/DL 8.4 - 10.2 [facility] Bilirubin.total [Mass/volume] in Serum or Plasma <0.7 MG/DL 0.2 - 1.3 [facility] Alkaline phosphatase [Enzymatic activity/volume] in Serum or Plasma 73 U/L 38 - 126 [facility] Aspartate aminotransferase [Enzymatic activity/volume] in Se rum or Plasma 9 U/L 5 - 40 [facility] Alanine aminotransferase [Enzymatic activity/volume] in Seru m or Plasma 10 U/L 7 - 56 [facility] Anion gap 3 in Serum or Plasma 6.0 mmol/L 8.0 - 16.0 L [facility] AGE 75 yrs [facility] al NON-AA GFR 31 mL/min [facility] booker AFR AMER GFR >60 [facility] Male GFR In terprentation 20-49 [...] >32 mL/min Normal ID Date Data Source [id number] 06/09/2020 07:01:00 AM EDT [facility] Name Value Range Interpretation Code Description Data Ro rce(s) Supporting Document(s) CBC W/AUTOMATED DIFF [facility] COMPLETE BLOOD COUNT Leukocytes [#/volume] in Blood by Automated count 7.2 10^3/uL 4.2 - 1 1.0 [facility] Erythrocytes [#/volume] in Blood by Automated count 3.05 10^6/uL 4. 20 - 5.40 L [facility] Hemoglobin [Mass/volume] in Blood 9.1 g/dL 12.0 - 16.0 L [facility] Hematocrit [Volume Fraction] of Blood by Automated count 32.1 % 3 7.0 - 47.0 L [facility] Erythrocyte mean corpuscular volume [Entitic volume] b y Automated count 105.2 fL 81.0 - 101 H [facility] Erythrocyte mean corpuscular hemoglobin [Entitic mass] by Automated count 29.8 pg 27.0 - 34.0 [facility] Erythrocyte mean corpuscular hemoglobin concentration [Mass/volume] by Automated count 28.3 g/dL 31.0 - 36.0 L [facility] Erythrocyte distribution width [Ratio] by Automated count 17.6 % 11.5 - 14.5 H [facility] Platelets [#/volume] in Blood by Automated count 183 10^3/uL 150 - 45 0 [facility] Platelet mean volume [Entitic volume] in Blood by Automated count 10.4 fL 7.4 - 10.4 [facility] Neutrophils/100 leukocytes in Blood by Automated count 66.6 % 37. 0 - 80.0 [facility] Lymphocytes/100 leukocytes in Blood by Manual count 12.6 % 25.0 - 40.0 L [facility] Monocytes/100 leukocytes in Blood by Automated count 14.5 % 3.0 - 8.0 H [facility] Eosinophils/100 leukocytes in Blood by Automated count 4.6 % 0.0 - 7.0 [facility] Basophils/100 leukocytes in Blood by Automated count 0.6 % 0.0 - 2.5 [facility] %IG 1.1 % 0.0 - 0.0 [facility] %[facility] 0.0 % 0.0 - 0.0 [facility] al Neutrophils [#/volume] in Blood by Automated count 4.83 10^3/uL 2.00 - 6.90 [facility] Lymphocytes [#/volume] in Blood by Automated count 0.91 10^3/uL 0.60 - 3.40 [facility] Monocytes [#/volume] in Blood by Automated count 1.05 10^3/uL 0.00 - 0.90 H [facility] Eosinophils [#/volume] in Blood by Automated count 0.33 10^3/uL 0.00 - 0.70 [facility] Basophils [#/volume] in Blood by Automated count 0.04 10^3/uL 0.00 - 0.20 [facility] #IG 0.08 10^3/uL 0.00 - 0.10 [facility] H ospital #NRBC 0.00 10^3/uL 0.00 - 0.00 [facility] ospital MANUAL DIFF SEE BELOW [facility] ital Segmented neutrophils/100 leukocytes in Blood by Manual count 93 % 37 - 80 [facility] %LYMPH 4 % 25 - 40 L [facility] %MONO 3 % 3 - 8 [facility] RBC [facility]ORPH [facility] An[facility] [Presence] in Blood by Light microscopy 1+ FARRUKH L: NONE SEEN A [facility] Macrocytes [Presence] in Blood by Light microscopy 1+ NORMAL: NONE SEEN A [facility] Poikilocytosis [Presence] in Blood by Light microscopy 1+ NOR MAL: NONE SEEN A [facility] HYPO 1+ NORMAL: NONE SEEN A [facility] Polychromasia [Presence] in Blood by Light microscopy 1+ NORM AL: NONE SEEN A [facility] { SICKLE CELL (NORMAL: NONE SEEN ) Platelet adequacy [Presence] in Blood by Light microscopy NORMAL NORMAL: NORMAL [facility] COMMENT: ID Date Data Source [id number] 06/08/2020 07:21:00 AM EDT [facility] Name Value Range Interpretation Code Description Data Ro rce(s) Supporting Document(s) CBC W/AUTOMATED DIFF [facility] COMPLETE BLOOD COUNT Leukocytes [#/volume] in Blood by Automated count 8.5 10^3/uL 4.2 - 1 1.0 [facility] Erythrocytes [#/volume] in Blood by Automated count 2.98 10^6/uL 4. 20 - 5.40 L [facility] Hemoglobin [Mass/volume] in Blood 9.0 g/dL 12.0 - 16.0 L [facility] Hematocrit [Volume Fraction] of Blood by Automated count 31.1 % 3 7.0 - 47.0 L [facility] Erythrocyte mean corpuscular volume [Entitic volume] b y Automated count 104.4 fL 81.0 - 101 H [facility] Erythrocyte mean corpuscular hemoglobin [Entitic mass] by Automated count 30.2 pg 27.0 - 34.0 [facility] Erythrocyte mean corpuscular hemoglobin concentration [Mass/volume] by Automated count 28.9 g/dL 31.0 - 36.0 L [facility] Erythrocyte distribution width [Ratio] by Automated count 17.5 % 11.5 - 14.5 H [facility] Platelets [#/volume] in Blood by Automated count 167 10^3/uL 150 - 45 0 [facility] Platelet mean volume [Entitic volume] in Blood by Automated count 10.6 fL 7.4 - 10.4 H [facility] Neutrophils/100 leukocytes in Blood by Automated count 70.9 % 37. 0 - 80.0 [facility] Lymphocytes/100 leukocytes in Blood by Manual count 10.5 % 25.0 - 40.0 L [facility] Monocytes/100 leukocytes in Blood by Automated count 13.4 % 3.0 - 8.0 H [facility] Eosinophils/100 leukocytes in Blood by Automated count 3.9 % 0.0 - 7.0 [facility] Basophils/100 leukocytes in Blood by Automated count 0.4 % 0.0 - 2.5 [facility] %IG 0.9 % 0.0 - 0.0 H [facility] al %NRBC 0.0 % 0.0 - 0.0 [facility] al Neutrophils [#/volume] in Blood by Automated count 5.99 10^3/uL 2.00 - 6.90 [facility] Lymphocytes [#/volume] in Blood by Automated count 0.89 10^3/uL 0.60 - 3.40 [facility] Monocytes [#/volume] in Blood by Automated count 1.13 10^3/uL 0.00 - 0.90 H [facility] Eosinophils [#/volume] in Blood by Automated count 0.33 10^3/uL 0.00 - 0.70 [facility] Basophils [#/volume] in Blood by Automated count 0.03 10^3/uL 0.00 - 0.20 [facility] #IG 0.08 10^3/uL 0.00 - 0.10 [facility] #NRBC 0.00 10^3/uL 0.00 - 0.00 [facility] MANUAL DIFF NOT INDICATED [facility] RBC MORPH NOT INDICATED [facility] ID Date Data Source [id number] 06/08/2020 07:03:00 AM EDT [facility] Name Value Range Interpretation Code Description Data Ro rce(s) Supporting Document(s) COMPREHENSIVE METABOLIC PANEL [facility] COMPREHENSIVE METABOLIC PANEL Sodium [Moles/volume] in Serum or Plasma 143 mEq/L 134 - 153 [facility] Potassium [Moles/volume] in Serum or Plasma 5.1 mEq/L 3.6 - 5.0 H [facility] Chloride [Moles/volume] in Serum or Plasma 100 mEq/L 98 - 107 [facility] Carbon dioxide, total [Moles/volume] in Serum or Plasma 38 MEQ/L 22 - 30 H [facility] Glucose [Mass/volume] in Serum or Plasma 117 MG/DL 65 - 110 H [facility] BUN 50 MG/DL 7 - 21 H [facility] al Creatinine [Mass/volume] in Serum or Plasma 2.0 MG/DL 0.7 - 1.5 H [facility] BUN/CREAT 25 8 - 27 [facility] al Protein [Mass/volume] in Serum or Plasma 5.6 G/DL 6.3 - 8.2 L [facility] Albumin [Mass/volume] in Serum or Plasma 3.4 G/DL 3.9 - 5.0 L [facility] Globulin [Mass/volume] in Serum by calculation 2.2 GM/DL 2.4 - 3.2 L [facility] A/G RATIO 1.5 0.8 - 2.0 [facility] Calcium [Mass/volume] in Serum or Plasma 8.5 MG/DL 8.4 - 10.2 [facility] Bilirubin.total [Mass/volume] in Serum or Plasma <0.7 MG/DL 0.2 - 1.3 [facility] Alkaline phosphatase [Enzymatic activity/volume] in Serum or Plasma 68 U/L 38 - 126 [facility] Aspartate aminotransferase [Enzymatic activity/volume] in Se rum or Plasma 8 U/L 5 - 40 [facility] Alanine aminotransferase [Enzymatic activity/volume] in Seru m or Plasma 10 U/L 7 - 56 [facility] Anion gap 3 in Serum or Plasma 5.0 mmol/L 8.0 - 16.0 L [facility] AGE 75 yrs [facility] NON-AA GFR 26 mL/min [facility] booker AFR AMER GFR >60 [facility] Male GFR In terprentation 20-49 [...] >32 mL/min Normal ID Date Data Source [id number] 06/07/2020 12:45:00 PM EDT [facility] [address] [place] [address] PHONE: [phone] FAX: [phone] Name .................. : TR Whitley Acct Number.................. : [id number] ROOM. ................. : 119-1 Number ................... : [id number] Stay type ............. : I/P Discharge Date......... ... : Admit Date ......... : 05/10 Admit Phys .................... : REY BEVERLY Date of ....... : 1945 Family Phys ................... : CASPER Phone .................. : [phone] Age ................................ : 75 Film# .................. .:[id number] Sex ................................. : F Unsigned transcriptions are preliminary reports and do not represent a medical or legal document CHEST 2 VIEWS 88051 COMPLETE:06/07/20 06:42 DLA 79683 (REASON FOR CHEST: CHF CHEST TWO VIEW, [...] 06/07/20 09:22, Dictation Date: Copy for: 002 [facility] Copy for: 710 [facility] REC Page 1 of 1 Name Value Range Interpretation Code Description Data Ro rce(s) Supporting Document(s) ID Date Data Source [id number] 06/07/2020 06:55:00 AM EDT [facility] Name Value Range Interpretation Code Description Data Ro rce(s) Supporting Document(s) COMPREHENSIVE METABOLIC PANEL [facility] COMPREHENSIVE METABOLIC PANEL Sodium [Moles/volume] in Serum or Plasma 143 mEq/L 134 - 153 [facility] Potassium [Moles/volume] in Serum or Plasma 4.7 mEq/L 3.6 - 5.0 [facility] Chloride [Moles/volume] in Serum or Plasma 97 mEq/L 98 - 107 L [facility] Carbon dioxide, total [Moles/volume] in Serum or Plasma 38 MEQ/L 22 - 30 H [facility] Glucose [Mass/volume] in Serum or Plasma 110 MG/DL 65 - 110 [facility] BUN 53 MG/DL 7 - 21 H [facility] al Creatinine [Mass/volume] in Serum or Plasma 2.3 MG/DL 0.7 - 1.5 H [facility] BUN/CREAT 23 8 - 27 [facility] Protein [Mass/volume] in Serum or Plasma 5.3 G/DL 6.3 - 8.2 L [facility] Albumin [Mass/volume] in Serum or Plasma 3.2 G/DL 3.9 - 5.0 L [facility] Globulin [Mass/volume] in Serum by calculation 2.1 GM/DL 2.4 - 3.2 L [facility] A/G RATIO 1.5 0.8 - 2.0 [facility] Calcium [Mass/volume] in Serum or Plasma 8.4 MG/DL 8.4 - 10.2 [facility] Bilirubin.total [Mass/volume] in Serum or Plasma <0.7 MG/DL 0.2 - 1.3 [facility] Alkaline phosphatase [Enzymatic activity/volume] in Serum or Plasma 58 U/L 38 - 126 [facility] Aspartate aminotransferase [Enzymatic activity/volume] in Se rum or Plasma 8 U/L 5 - 40 [facility] Alanine aminotransferase [Enzymatic activity/volume] in Seru m or Plasma 11 U/L 7 - 56 [facility] Anion gap 3 in Serum or Plasma 8.0 mmol/L 8.0 - 16.0 [facility] 75 [facility] AFR AMER GFR >60 [facility] pital Male GFR In terprentation 20-49 yrs [...] >32 mL/min Normal ID Date Data Source [id number] 06/07/2020 06:50:00 AM EDT [facility] Name Value Range Interpretation Code Description Data Ro rce(s) Supporting Document(s) BNP 2536 PG/ML 0 - 125 H [facility] booker ID Date Data Source [id number] 06/07/2020 10:53:00 AM EDT [facility] Name Value Range Interpretation Code Description Data Ro rce(s) Supporting Document(s) Iron [Mass/volume] in Serum or Plasma 54 UG/DL 42 - 135 [facility] ID Date Data Source [id number] 06/07/2020 07:10:00 AM EDT [facility] Name Value Range Interpretation Code Description Data Ro rce(s) Supporting Document(s) CBC W/AUTOMATED DIFF [facility] COMPLETE BLOOD COUNT Leukocytes [#/volume] in Blood by Automated count 7.8 10^3/uL 4.2 - 1 1.0 [facility] Erythrocytes [#/volume] in Blood by Automated count 2.89 10^6/uL 4. 20 - 5.40 L [facility] Hemoglobin [Mass/volume] in Blood 8.8 g/dL 12.0 - 16.0 L [facility] Hematocrit [Volume Fraction] of Blood by Automated count 29.8 % 3 7.0 - 47.0 L [facility] Erythrocyte mean corpuscular volume [Entitic volume] b y Automated count 103.1 fL 81.0 - 101 H [facility] Erythrocyte mean corpuscular hemoglobin [Entitic mass] by Automated count 30.4 pg 27.0 - 34.0 [facility] Erythrocyte mean corpuscular hemoglobin concentration [Mass/volume] by Automated count 29.5 g/dL 31.0 - 36.0 L [facility] Erythrocyte distribution width [Ratio] by Automated count 17.3 % 11.5 - 14.5 H [facility] Platelets [#/volume] in Blood by Automated count 169 10^3/uL 150 - 45 0 [facility] Platelet mean volume [Entitic volume] in Blood by Automated count 10.7 fL 7.4 - 10.4 H [facility] Neutrophils/100 leukocytes in Blood by Automated count 65.0 % 37. 0 - 80.0 [facility] Lymphocytes/100 leukocytes in Blood by Manual count 13.0 % 25.0 - 40.0 L [facility] Monocytes/100 leukocytes in Blood by Automated count 16.0 % 3.0 - 8.0 H [facility] Eosinophils/100 leukocytes in Blood by Automated count 4.2 % 0.0 - 7.0 [facility] 0.4 %IG 1.4 % 0.0 - 0.0 [facility] %NRBC 0.0 % 0.0 - 0.0 [facility] Neutrophils [#/volume] in Blood by Automated count 5.09 10^3/uL 2.00 - 6.90 [facility] Lymphocytes [#/volume] in Blood by Automated count 1.02 10^3/uL 0.60 - 3.40 [facility] Monocytes [#/volume] in Blood by Automated count 1.25 10^3/uL 0.00 - 0.90 H [facility] Eosinophils [#/volume] in Blood by Automated count 0.33 10^3/uL 0.00 - 0.70 [facility] Basophils [#/volume] in Blood by Automated count 0.03 10^3/uL 0.00 - 0.20 [facility] #IG 0.11 10^3/uL 0.00 - 0.10 H [facility] #NRBC 0.00 10^3/uL 0.00 - 0.00 [facility] MANUAL DIFF SEE BELOW [facility] ital Segmented neutrophils/100 leukocytes in Blood by Manual count 73 % 37 - 80 [facility] BAND 0 % 0 - 5 [facility] %LYMPH 17 % 25 - 40 L [facility] %MONO 7 % 3 - 8 [facility] %EOS 3 % 0 - 7 [facility] 0 RBC MORPH SEE BELOW [facility] Anisocytosis [Presence] in Blood by Light microscopy 1+ FARRUKH L: NONE SEEN A [facility] Poikilocytosis [Presence] in Blood by Light microscopy 1+ NOR MAL: NONE SEEN A [facility] HYPO 1+ NORMAL: NONE SEEN A [facility] { SICKLE CELL (NORMAL: NONE SEEN ) COMMENT: ID Date Data Source [id number] 06/06/2020 10:42:00 AM EDT [facility] [address] [place] [address] PHONE: [phone] FAX: [phone] Name .................. : TR Whitley Acct Number.................. : [id number] ROOM. ................. : 119-1 Number ................... : [id number] Stay type ............. : I/P Discharge Date......... ... : Admit Date ......... : 05/28/20 Admit Phys .................... : REY BEVERLY Date of ....... : 1945 Family Phys ................... : CASPER Phone .................. : [phone] Age ................................ : 75 Film# .................. .:[id number] Sex ................................. : F Unsigned transcriptions are preliminary reports and do not represent a medical or legal document CT THORAX W/O CONTRAST [id number] COMPLETE:06/05/20 19:06 [facility] [address] (REASON FOR CHEST: CHF CT OF THE [...] 03:18, Dictation Date: Page 1 of [address] [place] [address] PHONE: [phone] FAX: [phone] Name .................. : TR Whitley Acct Number.................. : [id number] ROOM. ................. : 119-1 MR Number ................... : [id number] Stay type ............. : I/P Discharge Date......... ... : Admit Date ......... : 05/28/20 Admit Phys .................... : REY BEVERLY Date of ....... : 1945 Family Phys ................... : [employer] Phone .................. : [phone] Age ................................ : 75 Film# .................. .:[id number] Sex ................................. : F Unsigned transcriptions are preliminary reports and do not represent a medical or legal document CT THORAX W/O CONTRAST [id number] COMPLETE:06/05/20 19:06 [facility] [address] (REASON FOR CHEST: CHF Copy for: 002 [facility] Copy for: 710 MED REC Page 2 of 2 Name Value Range Interpretation Code Description Data Ro rce(s) Supporting Document(s) ID Date Data Source [id number] 06/06/2020 07:24:00 AM EDT [facility] Name Value Range Interpretation Code Description Data Ro rce(s) Supporting Document(s) CBC W/AUTOMATED DIFF [facility] COMPLETE BLOOD COUNT Leukocytes [#/volume] in Blood by Automated count 9.1 10^3/uL 4.2 - 1 1.0 [facility] Erythrocytes [#/volume] in Blood by Automated count 2.93 10^6/uL 4. 20 - 5.40 L [facility] Hemoglobin [Mass/volume] in Blood 8.9 g/dL 12.0 - 16.0 L [facility] Hematocrit [Volume Fraction] of Blood by Automated count 31.0 % 3 7.0 - 47.0 L [facility] Erythrocyte mean corpuscular volume [Entitic volume] b y Automated count 105.8 fL 81.0 - 101 H [facility] Erythrocyte mean corpuscular hemoglobin [Entitic mass] by Automated count 30.4 pg 27.0 - 34.0 [facility] Erythrocyte mean corpuscular hemoglobin concentration [Mass/volume] by Automated count 28.7 g/dL 31.0 - 36.0 L [facility] Erythrocyte distribution width [Ratio] by Automated count 17.6 % 11.5 - 14.5 H [facility] Platelets [#/volume] in Blood by Automated count 174 10^3/uL 150 - 45 0 [facility] Platelet mean volume [Entitic volume] in Blood by Automated count 10.8 fL 7.4 - 10.4 H [facility] Neutrophils/100 leukocytes in Blood by Automated count 71.2 % 37. 0 - 80.0 [facility] Lymphocytes/100 leukocytes in Blood by Manual count 11.0 % 25.0 - 40.0 L [facility] Monocytes/100 leukocytes in Blood by Automated count 14.1 % 3.0 - 8.0 H [facility] Eosinophils/100 leukocytes in Blood by Automated count 2.4 % 0.0 - 7.0 [facility] Basophils/100 leukocytes in Blood by Automated count 0.2 % 0.0 - 2.5 [facility] %IG 1.1 % 0.0 - 0.0 [facility] %NRBC 0.0 % 0.0 - 0.0 [facility] al Neutrophils [#/volume] in Blood by Automated count 6.49 10^3/uL 2.00 - 6.90 [facility] Lymphocytes [#/volume] in Blood by Automated count 1.00 10^3/uL 0.60 - 3.40 [facility] Monocytes [#/volume] in Blood by Automated count 1.29 10^3/uL 0.00 - 0.90 H [facility] Eosinophils [#/volume] in Blood by Automated count 0.22 10^3/uL 0.00 - 0.70 [facility] Basophils [#/volume] in Blood by Automated count 0.02 10^3/uL 0.00 - 0.20 [facility] #IG 0.10 10^3/uL 0.00 - 0.10 [facility] #NRBC 0.00 10^3/uL 0.00 - 0.00 [facility] MANUAL DIFF SEE BELOW [facility] Segmented neutrophils/100 leukocytes in Blood by Manual count 78 % 37 - 80 [facility] BAND 1 % 0 - 5 [facility] %LYMPH 8 % 25 - 40 L [facility] %MONO 11 % 3 - 8 H [facility] %EOS 2 % 0 - 7 [facility] RBC MORPH SEE BELOW [facility] Anisocytosis [Presence] in Blood by Light microscopy 1+ FARRUKH L: NONE SEEN A [facility] Macrocytes [Presence] in Blood by Light microscopy 1+ NORMAL: NONE SEEN A [facility] Poikilocytosis [Presence] in Blood by Light microscopy 1+ NOR MAL: NONE SEEN A [facility] HYPO 1+ NORMAL: NONE SEEN A [facility] { SICKLE CELL (NORMAL: NONE SEEN ) Platelet adequacy [Presence] in Blood by Light microscopy NORMAL NORMAL: NORMAL [facility] COMMENT: ID Date Data Source [id number] 06/06/2020 07:09:00 AM EDT [facility] Name Value Range Interpretation Code Description Data Ro rce(s) Supporting Document(s) COMPREHENSIVE METABOLIC PANEL [facility] COMPREHENSIVE METABOLIC PANEL Sodium [Moles/volume] in Serum or Plasma 145 mEq/L 134 - 153 [facility] Potassium [Moles/volume] in Serum or Plasma 4.7 mEq/L 3.6 - 5.0 [facility] Chloride [Moles/volume] in Serum or Plasma 99 mEq/L 98 - 107 [facility] Carbon dioxide, total [Moles/volume] in Serum or Plasma 39 MEQ/L 22 - 30 H [facility] Glucose [Mass/volume] in Serum or Plasma 102 MG/DL 65 - 110 [facility] BUN 47 MG/DL 7 - 21 H [facility] Creatinine [Mass/volume] in Serum or Plasma 2.2 MG/DL 0.7 - 1.5 H [facility] BUN/CREAT 21 8 - 27 [facility] Protein [Mass/volume] in Serum or Plasma 5.6 G/DL 6.3 - 8.2 L [facility] Albumin [Mass/volume] in Serum or Plasma 3.5 G/DL 3.9 - 5.0 L [facility] Globulin [Mass/volume] in Serum by calculation 2.1 GM/DL 2.4 - 3.2 L [facility] A/G RATIO 1.7 0.8 - 2.0 [facility] Calcium [Mass/volume] in Serum or Plasma 8.6 MG/DL 8.4 - 10.2 [facility] Bilirubin.total [Mass/volume] in Serum or Plasma <0.7 MG/DL 0.2 - 1.3 [facility] Alkaline phosphatase [Enzymatic activity/volume] in Serum or Plasma 62 U/L 38 - 126 [facility] Aspartate aminotransferase [Enzymatic activity/volume] in Se rum or Plasma 9 U/L 5 - 40 [facility] Alanine aminotransferase [Enzymatic activity/volume] in Seru m or Plasma 15 U/L 7 - 56 [facility] Anion gap 3 in Serum or Plasma 7.0 mmol/L 8.0 - 16.0 L [facility] AGE 75 yrs [facility] NON-AA GFR 23 mL/min [facility] booker AFR AMER GFR >60 [facility] p[facility] Male GFR In terprentation 20-49 [...] >32 mL/min Normal ID Date Data Source [id number] 06/06/2020 07:09:00 AM EDT [facility] Name Value Range Interpretation Code Description Data Ro rce(s) Supporting Document(s) BNP 4177 PG/ML 0 - 125 H [facility] ID Date Data Source [id number] 06/05/2020 09:09:00 [place] [address] RESPIRATORY CARE REPORT ==== ---------NAME------- NUMBER SEX AGE ADMIT DISC. XRAY# F/C EDWIN DONALD Whitley [id number] F 75 05/28/20 [id number] ME8 I/P DATE OF : 1945 M/R# [id number] PH#: [phone] 119-1 LOCATION: EKG 05869 COMPLETE:06/05/20 1 0:50 51625 PHYSICIAN: REY PAUL Name Value Range Interpretation Code Description Data Ro rce(s) Supporting Document(s) ID Date Data Source [id number] 06/03/2020 01:19:00 [place] [address] PROGRESS NOTENAME: TR Whitley ROOM#: 119-1DATE OF : 1945 MR#: [id number] DATE: 05/28/20 OF SERVICE: 06/02/20UBJECTIVE: This patient's [...] rce(s) Supporting Document(s) ID Date Data Source [id number] 06/01/2020 05:34:00 [place] [address] PROGRESS NOTENAME: TR Whitley ROOM#: [id number] OF : 1945 MR#: [id number] DATE: 05/28/20 OF SERVICE: 06/01/20UBJECTIVE: This patient's [...] rce(s) Supporting Document(s) ID Date Data Source [id number] 05/29/2020 02:01:00 [place] [address] PROGRESS NOTENAME: TR Whitley ROOM#: 119-1DATE OF : 1945 MR#: [id number] DATE: 05/28/20 OF SERVICE: 05/29/2020SUBJECTIVE:Donald Armando has [...] rce(s) Supporting Document(s) ID Date Data Source [id number] 05/29/2020 11:32:00 [place] [address] HISTORY AND PHYSICALNAME: TR Whitley ROOM#: [id number] OF : 1945 MR#: [id number] PHYS: Silver Peterson MD, DATE: 05/28/20HISTORY OF [...] for tricuspid regurgitation.She had surgery done in [facility] several months ago. On exam, blood [...] IV fluid.COURSE DURING HOSPITALIZATION:Patient was put on playground monitor, 2 L of oxygen per minute [...] heart failure, systolic ejection fraction 40-50% [address] [place] [address] HISTORY AND PHYSICALNAME: TR Whitley ROOM#: [id number] OF : 1945 MR#: [id number] PHYS: Silver Peterson MD, PC DATE: 05/28/20 [...] rce(s) Supporting Document(s) ID Date Data Source [id number] [facility] Range Interpretation Code Description Data Ro rce(s) Supporting Document(s) Cobalamin (Vitamin B12) [Mass/volume] in Serum or Plasma 653 PG/ML 232 - 1245 [facility] ID Date Data Source [id number] [facility] Name Value Range Interpretation Code Description Data Ro rce(s) Supporting Document(s) Iron [Mass/volume] in Serum or Plasma 54 UG/DL 42 - 135 [facility] ID Date Data Source [id number] [facility] Name Value Range Interpretation Code Description Data Ro rce(s) Supporting Document(s) CBC W/AUTOMATED DIFF [facility] CORRECTE D REPORT COMPLETE BLOOD COUNT Leukocytes [#/volume] in Blood by Automated count 8.8 10^3/uL 4.2 - 1 1.0 [facility] Erythrocytes [#/volume] in Blood by Automated count 2.88 10^6/uL 4. 20 - 5.40 L [facility] Hemoglobin [Mass/volume] in Blood 8.6 g/dL 12.0 - 16.0 L [facility] Hematocrit [Volume Fraction] of Blood by Automated count 30.4 % 3 7.0 - 47.0 L [facility] [facility] Erythrocyte mean corpuscular volume [Entitic volume] b y Automated count 105.6 fL 81.0 - 101 H [facility] Erythrocyte mean corpuscular hemoglobin [Entitic mass] by Automated count 29.9 pg 27.0 - 34.0 [facility] Erythrocyte mean corpuscular hemoglobin concentration [Mass/volume] by Automated count 28.3 g/dL 31.0 - 36.0 L [facility] Erythrocyte distribution width [Ratio] by Automated count 17.5 % 11.5 - 14.5 H [facility] Platelets [#/volume] in Blood by Automated count 171 10^3/uL 150 - 45 0 [facility] Platelet mean volume [Entitic volume] in Blood by Automated count 10.0 fL 7.4 - 10.4 [facility] Neutrophils/100 leukocytes in Blood by Automated count 69.8 % 37. 0 - 80.0 [facility] Lymphocytes/100 leukocytes in Blood by Manual count 11.8 % 25.0 - 40.0 L [facility] Monocytes/100 leukocytes in Blood by Automated count 14.5 % 3.0 - 8.0 H [facility] Eosinophils/100 leukocytes in Blood by Automated count 2.5 % 0.0 - 7.0 [facility] 0.2 Basophils/100 leukocytes in Blood by Automated count 0.2 % 0.0 - 2.5 [facility] %IG 1.2 % 0.0 - 0.0 [facility] 0.0 % 0.0 - 0.0 [facility] al Neutrophils [#/volume] in Blood by Automated count 6.15 10^3/uL 2.00 - 6.90 [facility] Lymphocytes [#/volume] in Blood by Automated count 1.04 10^3/uL 0.60 - 3.40 [facility] Monocytes [#/volume] in Blood by Automated count 1.28 10^3/uL 0.00 - 0.90 H [facility] Eosinophils [#/volume] in Blood by Automated count 0.22 10^3/uL 0.00 - 0.70 [facility] Basophils [#/volume] in Blood by Automated count 0.02 10^3/uL 0.00 - 0.20 [facility] #IG 0.11 10^3/uL 0.00 - 0.10 H [facility] #NRBC 0.00 10^3/uL 0.00 - 0.00 [facility] MANUAL DIFF SEE BELOW [facility] ital Segmented neutrophils/100 leukocytes in Blood by Manual count 75 % 37 - 80 [facility] BAND 0 % 0 - 5 [facility] %LYMPH 17 % 25 - 40 L [facility] %MONO 7 % 3 - 8 [facility] %EOS 1 % 0 - 7 [facility] 0 RBC MORPH SEE BELOW [facility] { SICKLE CELL (NORMAL: NONE SEEN ) COMMENT: _NO_PLATELET_CLUMPING 06/05/20.CT . . . ____ Anisocytosis [Presence] in Blood by Light microscopy 1+ FARRUKH L: NONE SEEN A [facility] Poikilocytosis [Presence] in Blood by Light microscopy 1+ NOR MAL: NONE SEEN A [facility] HYPO 1+ NORMAL: NONE SEEN A [facility] { SICKLE CELL (NORMAL: NONE SEEN ) COMMENT: _NO_PLATELET_CLUMPING 06/05/20.CT . . . ____ ======== FOLLOWING RESULTS REPORTED IN ERROR MANUAL DIFF { CORRECT DIFF ADDED ID Date Data Source [id number] 06/05/2020 06:48:00 AM EDT [facility] Name Value Range Interpretation Code Description Data Ro rce(s) Supporting Document(s) COMPREHENSIVE METABOLIC PANEL [facility] COMPREHENSIVE METABOLIC PANEL Sodium [Moles/volume] in Serum or Plasma 142 mEq/L 134 - 153 [facility] Potassium [Moles/volume] in Serum or Plasma 4.7 mEq/L 3.6 - 5.0 [facility] Chloride [Moles/volume] in Serum or Plasma 99 mEq/L 98 - 107 [facility] Carbon dioxide, total [Moles/volume] in Serum or Plasma 40 MEQ/L 22 - 30 H [facility] Glucose [Mass/volume] in Serum or Plasma 107 MG/DL 65 - 110 [facility] BUN 44 MG/DL 7 - 21 H [facility] Creatinine [Mass/volume] in Serum or Plasma 2.0 MG/DL 0.7 - 1.5 H [facility] BUN/CREAT 22 8 - 27 [facility] al Protein [Mass/volume] in Serum or Plasma 5.1 G/DL 6.3 - 8.2 L [facility] Albumin [Mass/volume] in Serum or Plasma 3.1 G/DL 3.9 - 5.0 L [facility] Globulin [Mass/volume] in Serum by calculation 2.0 GM/DL 2.4 - 3.2 L [facility] A/G RATIO 1.6 0.8 - 2.0 [facility] Calcium [Mass/volume] in Serum or Plasma 8.3 MG/DL 8.4 - 10.2 L [facility] Bilirubin.total [Mass/volume] in Serum or Plasma <0.7 MG/DL 0.2 - 1.3 [facility] Alkaline phosphatase [Enzymatic activity/volume] in Serum or Plasma 54 U/L 38 - 126 [facility] Aspartate aminotransferase [Enzymatic activity/volume] in Se rum or Plasma 8 U/L 5 - 40 [facility] Alanine aminotransferase [Enzymatic activity/volume] in Seru m or Plasma 15 U/L 7 - 56 [facility] Anion gap 3 in Serum or Plasma 3.0 mmol/L 8.0 - 16.0 L [facility] 75 [facility]/min [facility] AFR AMER GFR >60 [facility] Male GFR In terprentation 20-49 [...] >32 mL/min Normal ID Date Data Source [id number] 06/05/2020 06:48:00 AM EDT [facility] Name Value Range Interpretation Code Description Data Ro rce(s) Supporting Document(s) BNP 3862 PG/ML 0 - 125 H [facility] booker ID Date Data Source [id number] 06/04/2020 03:24:00 PM EDT [facility] Name Value Range Interpretation Code Description Data Ro rce(s) Supporting Document(s) COMPREHENSIVE METABOLIC PANEL [facility] COMPREHENSIVE METABOLIC PANEL Sodium [Moles/volume] in Serum or Plasma 143 mEq/L 134 - 153 [facility] Potassium [Moles/volume] in Serum or Plasma 4.8 mEq/L 3.6 - 5.0 [facility] Chloride [Moles/volume] in Serum or Plasma 98 mEq/L 98 - 107 [facility] Carbon dioxide, total [Moles/volume] in Serum or Plasma 38 MEQ/L 22 - 30 H [facility] Glucose [Mass/volume] in Serum or Plasma 180 MG/DL 65 - 110 H [facility] BUN 43 MG/DL 7 - 21 [facility] Creatinine [Mass/volume] in Serum or Plasma 2.0 MG/DL 0.7 - 1.5 H [facility] BUN/CREAT 22 8 - 27 [facility] Protein [Mass/volume] in Serum or Plasma 4.9 G/DL 6.3 - 8.2 L [facility] Albumin [Mass/volume] in Serum or Plasma 3.3 G/DL 3.9 - 5.0 L [facility] Globulin [Mass/volume] in Serum by calculation 1.6 GM/DL 2.4 - 3.2 L [facility] A/G RATIO 2.1 0.8 - 2.0 H [facility] al Calcium [Mass/volume] in Serum or Plasma 8.7 MG/DL 8.4 - 10.2 [facility] Bilirubin.total [Mass/volume] in Serum or Plasma <0.7 MG/DL 0.2 - 1.3 [facility] Alkaline phosphatase [Enzymatic activity/volume] in Serum or Plasma 57 U/L 38 - 126 [facility] Aspartate aminotransferase [Enzymatic activity/volume] in Se rum or Plasma 9 U/L 5 - 40 [facility] Alanine aminotransferase [Enzymatic activity/volume] in Seru m or Plasma 19 U/L 7 - 56 [facility] Anion gap 3 in Serum or Plasma 7.0 mmol/L 8.0 - 16.0 L [facility] AGE 75 yrs [facility] NON-AA GFR 26 mL/min [facility] booker AFR AMER GFR >60 [facility] Male GFR In terprentation 20-49 [...] >32 mL/min Normal ID Date Data Source [id number] 06/04/2020 03:23:00 PM EDT [facility] Name Value Range Interpretation Code Description Data Ro rce(s) Supporting Document(s) BNP 3971 PG/ML 0 - 125 H [facility] ID Date Data Source [id number] 06/08/2020 03:30:00 PM EDT [facility] Name Value Range Interpretation Code Description Data Ro rce(s) Supporting Document(s) CULTURE SPUTUM [facility] ospital _CULTURE SPUTUM_$$[id number]$$[id number]$$[id number]$$312110$$[id number]$$765349$$685583$$330462$$[id number]$ $[id number]$$316538$$[id number]$$[id number] DATE/TIME: 06/08/2020 15:06Culture: CULTURE SPUTUM Status: FinalWhite Blood Cells: E3VskUlbrsldqhm Cells: W3JqrIlrtnr 1: P1Many gram positive rods. -- Continued on next page --Patient: TR Whitley Order: [id number] Page 2Culture: CULTURE SPUTUM Status: Final ====Result [...] of possible pathogensis in progress.Lower Respiratory Culture: [id number] Test performed by: [facility] #: [id number] [address] [place] [address] [id number] [facility] [id number] Director : Shreyas Fontana MD NPI #:Nib Assembler : 06/07/20.0612.XMT.SENT REF 06/07/20.1503.XMT.SENT REF 06/08/20.1530.XMT.SENT REF 06/08/20.1530.DW .to [facility] via modem ID Date Data Source [id number] 06/03/2020 07:38:00 AM EDT [facility] Name Value Range Interpretation Code Description Data Ro rce(s) Supporting Document(s) DORIAN TEST POSITIVE A [facility] FiO2 3 LPM [facility] SITE RADIAL RT [facility] pH of Arterial blood 7.40 7.34 - 7.44 [facility] Carbon dioxide [Partial pressure] in Blood 67.1 mm/HG 32.0 - 42.0 H [facility] Oxygen [Partial pressure] in Blood 78.0 mm/HG 75.0 - 100 [facility] Bicarbonate [Moles/volume] in Blood 40.9 meq/L 20.0 - 24.0 H [facility] TCO2 42.9 meq/L 21.0 - 25.0 H [facility] pital Base excess in Blood by calculation 14.2 -2.0 - 2.0 H [facility] O2 SAT 95.9 % 95.0 - 98.0 [facility] ital ID Date Data Source [id number] 06/03/2020 07:45:00 AM EDT [facility] Name Value Range Interpretation Code Description Data Ro rce(s) Supporting Document(s) CBC W/AUTOMATED DIFF [facility] COMPLETE BLOOD COUNT Leukocytes [#/volume] in Blood by Automated count 9.0 10^3/uL 4.2 - 1 1.0 [facility] Erythrocytes [#/volume] in Blood by Automated count 2.90 10^6/uL 4. 20 - 5.40 L [facility] Hemoglobin [Mass/volume] in Blood 8.7 g/dL 12.0 - 16.0 L [facility] Hematocrit [Volume Fraction] of Blood by Automated count 30.2 % 3 7.0 - 47.0 L [facility] Erythrocyte mean corpuscular volume [Entitic volume] b y Automated count 104.1 fL 81.0 - 101 H [facility] Erythrocyte mean corpuscular hemoglobin [Entitic mass] by Automated count 30.0 pg 27.0 - 34.0 [facility] Erythrocyte mean corpuscular hemoglobin concentration [Mass/volume] by Automated count 28.8 g/dL 31.0 - 36.0 L [facility] Erythrocyte distribution width [Ratio] by Automated count 17.3 % 11.5 - 14.5 H [facility] Platelets [#/volume] in Blood by Automated count 193 10^3/uL 150 - 45 0 [facility] Platelet mean volume [Entitic volume] in Blood by Automated count 10.2 fL 7.4 - 10.4 [facility] Neutrophils/100 leukocytes in Blood by Automated count 65.6 % 37. 0 - 80.0 [facility] Lymphocytes/100 leukocytes in Blood by Manual count 16.5 % 25.0 - 40.0 L [facility] Monocytes/100 leukocytes in Blood by Automated count 13.5 % 3.0 - 8.0 H [facility] Eosinophils/100 leukocytes in Blood by Automated count 2.2 % 0.0 - 7.0 [facility] Basophils/100 leukocytes in Blood by Automated count 0.1 % 0.0 - 2.5 [facility] %IG 2.1 % 0.0 - 0.0 H [facility] al %NRBC 0.0 % 0.0 - 0.0 [facility] al Neutrophils [#/volume] in Blood by Automated count 5.91 10^3/uL 2.00 - 6.90 [facility] Lymphocytes [#/volume] in Blood by Automated count 1.49 10^3/uL 0.60 - 3.40 [facility] Monocytes [#/volume] in Blood by Automated count 1.22 10^3/uL 0.00 - 0.90 H [facility] Eosinophils [#/volume] in Blood by Automated count 0.20 10^3/uL 0.00 - 0.70 [facility] Basophils [#/volume] in Blood by Automated count 0.01 10^3/uL 0.00 - 0.20 [facility] #IG 0.19 10^3/uL 0.00 - 0.10 H [facility]spital #NRBC 0.00 10^3/uL 0.00 - 0.00 [facility] MANUAL DIFF SEE BELOW [facility] ital Segmented neutrophils/100 leukocytes in Blood by Manual count 70 % 37 - 80 [facility] %LYMPH 17 % 25 - 40 L [facility] al %MONO 11 % 3 - 8 H [facility] al %EOS 2 % 0 - 7 [facility] al RBC MORPH SEE BELOW [facility] al Anisocytosis [Presence] in Blood by Light microscopy 1+ FARRUKH L: NONE SEEN A [facility] Macrocytes [Presence] in Blood by Light microscopy 1+ NORMAL: NONE SEEN A [facility] Poikilocytosis [Presence] in Blood by Light microscopy 1+ NOR MAL: NONE SEEN A [facility] HYPO 1+ NORMAL: NONE SEEN A [facility] { SICKLE CELL (NORMAL: NONE SEEN ) Platelet adequacy [Presence] in Blood by Light microscopy NORMAL NORMAL: NORMAL [facility] COMMENT: ID Date Data Source [id number] 06/03/2020 07:39:00 AM EDT [facility] Name Value Range Interpretation Code Description Data Ro rce(s) Supporting Document(s) COMPREHENSIVE METABOLIC PANEL [facility] COMPREHENSIVE METABOLIC PANEL Sodium [Moles/volume] in Serum or Plasma 147 mEq/L 134 - 153 [facility] Potassium [Moles/volume] in Serum or Plasma 4.1 mEq/L 3.6 - 5.0 [facility] Chloride [Moles/volume] in Serum or Plasma 99 mEq/L 98 - 107 [facility] Carbon dioxide, total [Moles/volume] in Serum or Plasma 43 MEQ/L 22 - 30 HH [facility] CALL/ READ BACK DARIAN ON [facility] BY: CM [facility] DATE/TIME 06/03/20 0740 [facility] Glucose [Mass/volume] in Serum or Plasma 107 MG/DL 65 - 110 [facility] BUN 46 MG/DL 7 - 21 H [facility] Creatinine [Mass/volume] in Serum or Plasma 2.1 MG/DL 0.7 - 1.5 H [facility] BUN/CREAT 22 8 - 27 [facility] al Protein [Mass/volume] in Serum or Plasma 5.0 G/DL 6.3 - 8.2 L [facility] Albumin [Mass/volume] in Serum or Plasma 3.1 G/DL 3.9 - 5.0 L [facility] Globulin [Mass/volume] in Serum by calculation 1.9 GM/DL 2.4 - 3.2 L [facility] A/G RATIO 1.6 0.8 - 2.0 [facility] Calcium [Mass/volume] in Serum or Plasma 8.5 MG/DL 8.4 - 10.2 [facility] Bilirubin.total [Mass/volume] in Serum or Plasma <0.7 MG/DL 0.2 - 1.3 [facility] Alkaline phosphatase [Enzymatic activity/volume] in Serum or Plasma 50 U/L 38 - 126 [facility] Aspartate aminotransferase [Enzymatic activity/volume] in Se rum or Plasma 9 U/L 5 - 40 [facility] Alanine aminotransferase [Enzymatic activity/volume] in Seru m or Plasma 22 U/L 7 - 56 [facility] Anion gap 3 in Serum or Plasma 5.0 mmol/L 8.0 - 16.0 L [facility] AGE 75 yrs [facility] al NON-AA GFR 25 mL/min [facility] AFR AMER GFR >60 [facility] Male GFR In terprentation 20-49 [...] >32 mL/min Normal ID Date Data Source [id number] 06/03/2020 07:10:00 AM EDT [facility] Name Value Range Interpretation Code Description Data Ro rce(s) Supporting Document(s) BNP 14618 PG/ML 0 - 125 H [facility] ital ID Date Data Source [id number] 06/03/2020 07:03:00 AM EDT [facility] Name Value Range Interpretation Code Description Data Ro rce(s) Supporting Document(s) Magnesium [Mass/volume] in Serum or Plasma 1.9 MG/DL 1.7 - 2.2 [facility] ID Date Data Source [id number] 06/02/2020 08:59:00 AM EDT [facility] [address] [place] [address] PHONE: [phone] FAX: [phone] Name .................. : TR Whitley Acct Number.................. : [id number] ROOM. ................. : 119-1 MR Number ................... : [id number] Stay type ............. : I/P Discharge Date......... ... : Admit Date ......... : 05/28/20 Admit Phys .................... : REY BEVERLY Date of ....... : 1945 Family Phys ................... : [place] Phone .................. : [phone] Age ................................ : 75 Film# .................. .:[id number] Sex ................................. : F Unsigned transcriptions are preliminary reports and do not represent a medical or legal document CHEST 2 VIEWS [id number] COMPLETE:06/02/20 06:08 RLB [id number] (REASON FOR CHEST: CHF P A & [...] 06/02/20 07:48, Dictation Date: Copy for: 002 [facility] Copy for: [facility] REC Page 1 of 1 Name Value Range Interpretation Code Description Data Ro rce(s) Supporting Document(s) ID Date Data Source [id number] 06/02/2020 08:56:00 AM EDT [facility] [address] [place] [address] PHONE: [phone] FAX: [phone] Name .................. : TR Whitley Acct Number.................. : [id number] ROOM. ................. : 119-1 MR Number ................... : [id number] Stay type ............. : I/P Discharge Date......... ... : Admit Date ......... : 05/28/20 Admit Phys .................... : REY PAUL Date of ....... : 1945 Family Phys ................... : [place] Phone .................. : [phone] Age ................................ : 75 Film# .................. .:[id number] Sex ................................. : F Unsigned transcriptions are preliminary reports and do not represent a medical or legal document CHEST 2 VIEWS 92249 COMPLETE:06/01/20 12:02 SAIMA [id number] (REASON FOR CHEST: CHF CHEST PA AND [...] By RASHAD LIRA MD , 06/02/20 08:56, [facility] Transcribe Initials: SSR, Transcribe Date: 06/01/20 13:16, Dictation Date: Copy for: 002 [facility] Copy for: [facility] REC Page 1 of 1 Name Value Range Interpretation Code Description Data Ro rce(s) Supporting Document(s) ID Date Data Source [id number] 06/02/2020 06:57:00 AM EDT [facility] Name Value Range Interpretation Code Description Data Ro rce(s) Supporting Document(s) DORIAN TEST NOT GIVEN [facility] FiO2 3L NC [facility] SITE BRACHIAL LT [facility] pH of Arterial blood 7.39 7.34 - 7.44 [facility] Carbon dioxide [Partial pressure] in Blood 68.2 mm/HG 32.0 - 42.0 H [facility] Oxygen [Partial pressure] in Blood 80.8 mm/HG 75.0 - 100 [facility] Bicarbonate [Moles/volume] in Blood 40.1 meq/L 20.0 - 24.0 H [facility] TCO2 42.2 meq/L 21.0 - 25.0 H [facility] pital Base excess in Blood by calculation 13.2 -2.0 - 2.0 H [facility] O2 SAT 96.1 % 95.0 - 98.0 [facility] ital ID Date Data Source [id number] 06/02/2020 07:24:00 AM EDT [facility] Name Value Range Interpretation Code Description Data Ro rce(s) Supporting Document(s) CBC W/AUTOMATED DIFF [facility] COMPLETE BLOOD COUNT Leukocytes [#/volume] in Blood by Automated count 6.4 10^3/uL 4.2 - 1 1.0 [facility] Erythrocytes [#/volume] in Blood by Automated count 2.99 10^6/uL 4. 20 - 5.40 L [facility] Hemoglobin [Mass/volume] in Blood 8.9 g/dL 12.0 - 16.0 L [facility] Hematocrit [Volume Fraction] of Blood by Automated count 30.9 % 3 7.0 - 47.0 L [facility] Erythrocyte mean corpuscular volume [Entitic volume] b y Automated count 103.3 fL 81.0 - 101 H [facility] Erythrocyte mean corpuscular hemoglobin [Entitic mass] by Automated count 29.8 pg 27.0 - 34.0 [facility] Erythrocyte mean corpuscular hemoglobin concentration [Mass/volume] by Automated count 28.8 g/dL 31.0 - 36.0 L [facility] Erythrocyte distribution width [Ratio] by Automated count 16.7 % 11.5 - 14.5 H [facility] Platelets [#/volume] in Blood by Automated count 211 10^3/uL 150 - 45 0 [facility] Platelet mean volume [Entitic volume] in Blood by Automated count 10.3 fL 7.4 - 10.4 [facility] Neutrophils/100 leukocytes in Blood by Automated count 86.1 % 37. 0 - 80.0 H [facility] Lymphocytes/100 leukocytes in Blood by Manual count 5.9 % 25.0 - 40.0 L [facility] Monocytes/100 leukocytes in Blood by Automated count 1.6 % 3.0 - 8.0 L [facility] Eosinophils/100 leukocytes in Blood by Automated count 0.0 % 0.0 - 7.0 [facility] Basophils/100 leukocytes in Blood by Automated count 0.3 % 0.0 - 2.5 [facility] %IG 6.1 % 0.0 - 0.0 H [facility] %NRBC 0.3 % 0.0 - 0.0 H [facility] al Neutrophils [#/volume] in Blood by Automated count 5.50 10^3/uL 2.00 - 6.90 [facility] Lymphocytes [#/volume] in Blood by Automated count 0.38 10^3/uL 0.60 - 3.40 L [facility] Monocytes [#/volume] in Blood by Automated count 0.10 10^3/uL 0.00 - 0.90 [facility] Eosinophils [#/volume] in Blood by Automated count 0.00 10^3/uL 0.00 - 0.70 [facility] Basophils [#/volume] in Blood by Automated count 0.02 10^3/uL 0.00 - 0.20 [facility] #IG 0.39 10^3/uL 0.00 - 0.10 H [facility]spital #NRBC 0.02 10^3/uL 0.00 - 0.00 H [facility]spital MANUAL DIFF SEE BELOW [facility] ital Segmented neutrophils/100 leukocytes in Blood by Manual count 91 % 37 - 80 H [facility] BAND 1 % 0 - 5 [facility] %LYMPH 3 % 25 - 40 L [facility] %MONO 2 % 3 - 8 L [facility] al Metamyelocytes/100 leukocytes in Blood by Manual count 1 % [facility] Myelocytes/100 leukocytes in Blood by Manual count 2 % [facility] RBC MORPH SEE BELOW [facility] al Anisocytosis [Presence] in Blood by Light microscopy 1+ FARRUKH L: NONE SEEN A [facility] Macrocytes [Presence] in Blood by Light microscopy 1+ NORMAL: NONE SEEN A [facility] Poikilocytosis [Presence] in Blood by Light microscopy 1+ NOR MAL: NONE SEEN A [facility] HYPO 1+ NORMAL: NONE SEEN A [facility] { SICKLE CELL (NORMAL: NONE SEEN ) Platelet adequacy [Presence] in Blood by Light microscopy NORMAL NORMAL: NORMAL [facility] COMMENT: ID Date Data Source [id number] 06/02/2020 07:01:00 AM EDT [facility] Name Value Range Interpretation Code Description Data Ro rce(s) Supporting Document(s) Magnesium [Mass/volume] in Serum or Plasma 1.9 MG/DL 1.7 - 2.2 [facility] ID Date Data Source [id number] 06/02/2020 07:00:00 AM EDT [facility] Name Value Range Interpretation Code Description Data Ro rce(s) Supporting Document(s) COMPREHENSIVE METABOLIC PANEL [facility] COMPREHENSIVE METABOLIC PANEL Sodium [Moles/volume] in Serum or Plasma 145 mEq/L 134 - 153 [facility] Potassium [Moles/volume] in Serum or Plasma 4.7 mEq/L 3.6 - 5.0 [facility] Chloride [Moles/volume] in Serum or Plasma 100 mEq/L 98 - 107 [facility] Carbon dioxide, total [Moles/volume] in Serum or Plasma 40 MEQ/L 22 - 30 [facility] [facility] Glucose [Mass/volume] in Serum or Plasma 170 MG/DL 65 - 110 H [facility] BUN 38 MG/DL 7 - 21 H [facility] al Creatinine [Mass/volume] in Serum or Plasma 1.8 MG/DL 0.7 - 1.5 H [facility] BUN/CREAT 21 8 - 27 [facility] Protein [Mass/volume] in Serum or Plasma 5.2 G/DL 6.3 - 8.2 L [facility] Albumin [Mass/volume] in Serum or Plasma 3.2 G/DL 3.9 - 5.0 L [facility] Globulin [Mass/volume] in Serum by calculation 2.0 GM/DL 2.4 - 3.2 L [facility] A/G RATIO 1.6 0.8 - 2.0 [facility] Calcium [Mass/volume] in Serum or Plasma 8.4 MG/DL 8.4 - 10.2 [facility] Bilirubin.total [Mass/volume] in Serum or Plasma <0.7 MG/DL 0.2 - 1.3 [facility] Alkaline phosphatase [Enzymatic activity/volume] in Serum or Plasma 55 U/L 38 - 126 [facility] Aspartate aminotransferase [Enzymatic activity/volume] in Serum or Plasma 12 U/L 5 - 40 [facility] Alanine aminotransferase [Enzymatic activity/volume] in Seru m or Plasma 31 U/L 7 - 56 [facility] Anion gap 3 in Serum or Plasma 5.0 mmol/L 8.0 - 16.0 L [facility] 75 [facility] AFR AMER GFR >60 [facility] Male GFR In terprentation 20-49 [...] >32 mL/min Normal ID Date Data Source [id number] 06/01/2020 07:46:00 PM EDT [facility] [address] [place] [address] RESPIRATORY CARE REPORT ==== ---------NAME------- NUMBER SEX AGE ADMIT DISC. XRAY# F/C TYPEDUFFANY DONALD Whitley [id number] F 75 05/28/20 [id number] ME8 I/P DATE OF : 1945 M/R# [id number] #: [id number] 119-1 LOCATION: EKG 23634 COMPLETE:06/01/20 1 1:16 [place] [address] PHYSICIAN: REY PAUL Name Value Range Interpretation Code Description Data Ro rce(s) Supporting Document(s) ID Date Data Source [id number] 06/01/2020 09:56:00 AM EDT [facility] Name Value Range Interpretation Code Description Data Ro rce(s) Supporting Document(s) DORIAN TEST NOT GIVEN [facility] booker FiO2 3 LNC [facility] al SITE BRACHIAL LT [facility] ital pH of Arterial blood 7.33 7.34 - 7.[address] [facility] Carbon dioxide [Partial pressure] in Blood 79.5 mm/HG 32.0 - 42.0 [facility] CALL/ READ BACK TIMUR PATEL 1000 [facility] BY: ASHOK [facility] DATE/TIME [id number] [facility] ital Oxygen [Partial pressure] in Blood 87.1 mm/HG 75.0 - 100 [facility] Bicarbonate [Moles/volume] in Blood 40.9 meq/L 20.0 - 24.0 H [facility] TCO2 43.3 meq/L 21.0 - 25.0 H [facility] pital Base excess in Blood by calculation 12.0 -2.0 - 2.0 H [facility] O2 SAT 96.2 % 95.0 - 98.0 [facility] ital ID Date Data Source [id number] 06/01/2020 07:22:00 AM EDT [facility] Name Value Range Interpretation Code Description Data Ro rce(s) Supporting Document(s) CBC W/AUTOMATED DIFF [facility] COMPLETE BLOOD COUNT Leukocytes [#/volume] in Blood by Automated count 8.4 10^3/uL 4.2 - 1 1.0 [facility] Erythrocytes [#/volume] in Blood by Automated count 2.84 10^6/uL 4. 20 - 5.40 L [facility] Hemoglobin [Mass/volume] in Blood 8.6 g/dL 12.0 - 16.0 L [facility] Hematocrit [Volume Fraction] of Blood by Automated count 30.1 % 3 7.0 - 47.0 L [facility] Erythrocyte mean corpuscular volume [Entitic volume] b y Automated count 106.0 fL 81.0 - 101 H [facility] Erythrocyte mean corpuscular hemoglobin [Entitic mass] by Automated count 30.3 pg 27.0 - 34.0 [facility] Erythrocyte mean corpuscular hemoglobin concentration [Mass/volume] by Automated count 28.6 g/dL 31.0 - 36.0 L [facility] Erythrocyte distribution width [Ratio] by Automated count 16.7 % 11.5 - 14.5 H [facility] Platelets [#/volume] in Blood by Automated count 216 10^3/uL 150 - 45 0 [facility] Platelet mean volume [Entitic volume] in Blood by Automated count 10.0 fL 7.4 - 10.4 [facility] Neutrophils/100 leukocytes in Blood by Automated count 55.8 % 37. 0 - 80.0 [facility] Lymphocytes/100 leukocytes in Blood by Manual count 16.7 % 25.0 - 40.0 L [facility] Monocytes/100 leukocytes in Blood by Automated count 14.1 % 3.0 - 8.0 H [facility] Eosinophils/100 leukocytes in Blood by Automated count 6.7 % 0.0 - 7.0 [facility] Basophils/100 leukocytes in Blood by Automated count 0.4 % 0.0 - 2.5 [facility] %IG 6.3 % 0.0 - 0.0 H [facility] al %NRBC 0.2 % 0.0 - 0.0 H [facility] al Neutrophils [#/volume] in Blood by Automated count 4.68 10^3/uL 2.00 - 6.90 [facility] Lymphocytes [#/volume] in Blood by Automated count 1.40 10^3/uL 0.60 - 3.40 [facility] Monocytes [#/volume] in Blood by Automated count 1.18 10^3/uL 0.00 - 0.90 H [facility] Eosinophils [#/volume] in Blood by Automated count 0.56 10^3/uL 0.00 - 0.70 [facility] Basophils [#/volume] in Blood by Automated count 0.03 10^3/uL 0.00 - 0.20 [facility] #IG 0.53 10^3/uL 0.00 - 0.10 H [facility] #NRBC 0.02 10^3/uL 0.00 - 0.00 H [facility] MANUAL DIFF SEE BELOW [facility] ital Segmented neutrophils/100 leukocytes in Blood by Manual count 56 % 37 - 80 [facility] %LYMPH 21 % 25 - 40 L [facility] al %MONO 9 % 3 - 8 H [facility] %EOS 7 % 0 - 7 [facility] al Metamyelocytes/100 leukocytes in Blood by Manual count 5 % [facility] Myelocytes/100 leukocytes in Blood by Manual count 2 % [facility] RBC MORPH SEE BELOW [facility] al Anisocytosis [Presence] in Blood by Light microscopy 1+ FARRUKH L: NONE SEEN A [facility] Macrocytes [Presence] in Blood by Light microscopy 1+ NORMAL: NONE SEEN A [facility] Poikilocytosis [Presence] in Blood by Light microscopy 1+ NOR MAL: NONE SEEN A [facility] HYPO 1+ NORMAL: NONE SEEN A [facility] { SICKLE CELL (NORMAL: NONE SEEN ) Platelet adequacy [Presence] in Blood by Light microscopy NORMAL NORMAL: NORMAL [facility] COMMENT: ID Date Data Source [id number] 06/01/2020 07:29:00 AM EDT [facility] Name Value Range Interpretation Code Description Data Ro rce(s) Supporting Document(s) COMPREHENSIVE METABOLIC PANEL [facility] COMPREHENSIVE METABOLIC PANEL Sodium [Moles/volume] in Serum or Plasma 145 mEq/L 134 - 153 [facility] Potassium [Moles/volume] in Serum or Plasma 4.8 mEq/L 3.6 - 5.0 [facility] Chloride [Moles/volume] in Serum or Plasma 99 mEq/L 98 - 107 [facility] Carbon dioxide, total [Moles/volume] in Serum or Plasma 42 MEQ/L 22 - 30 HH [facility] CALL/ READ BACK PAT ON [facility] BY: CM [facility] DATE/TIME 06/01/20 0730 [facility] Glucose [Mass/volume] in Serum or Plasma 95 MG/DL 65 - 110 [facility] BUN 44 MG/DL 7 - 21 H [facility] Creatinine [Mass/volume] in Serum or Plasma 1.9 MG/DL 0.7 - 1.5 H [facility] BUN/CREAT 23 8 - 27 [facility] al Protein [Mass/volume] in Serum or Plasma 4.9 G/DL 6.3 - 8.2 L [facility] Albumin [Mass/volume] in Serum or Plasma 3.1 G/DL 3.9 - 5.0 L [facility] Globulin [Mass/volume] in Serum by calculation 1.8 GM/DL 2.4 - 3.2 L [facility] A/G RATIO 1.7 0.8 - 2.0 [facility] Calcium [Mass/volume] in Serum or Plasma 8.8 MG/DL 8.4 - 10.2 [facility] Bilirubin.total [Mass/volume] in Serum or Plasma <0.7 MG/DL 0.2 - 1.3 [facility] Alkaline phosphatase [Enzymatic activity/volume] in Serum or Plasma 48 U/L 38 - 126 [facility] Aspartate aminotransferase [Enzymatic activity/volume] in Serum or Plasma 11 U/L 5 - 40 [facility] Alanine aminotransferase [Enzymatic activity/volume] in Seru m or Plasma 30 U/L 7 - 56 [facility] Anion gap 3 in Serum or Plasma 4.0 mmol/L 8.0 - 16.0 L [facility] AGE 75 yrs [facility] al NON-AA GFR 28 mL/min [facility] AFR AMER GFR >60 [facility] pital Male GFR In terprentation 20-49 yrs [...] >32 mL/min Normal ID Date Data Source [id number] 06/01/2020 07:25:00 AM EDT [facility] Name Value Range Interpretation Code Description Data Ro rce(s) Supporting Document(s) Magnesium [Mass/volume] in Serum or Plasma 1.6 MG/DL 1.7 - 2.2 L [facility] ID Date Data Source [id number] 05/31/2020 10:48:00 AM EDT [facility] Name Value Range Interpretation Code Description Data Ro rce(s) Supporting Document(s) Iron [Mass/volume] in Serum or Plasma 35 UG/DL 42 - 135 L [facility] ID Date Data Source [id number] 05/31/2020 06:53:00 AM T [facility] Name Value Range Interpretation Code Description Data Ro rce(s) Supporting Document(s) CBC W/AUTOMATED DIFF [facility] COMPLETE BLOOD COUNT Leukocytes [#/volume] in Blood by Automated count 10.9 10^3/uL 4.2 - 11.0 [facility] Erythrocytes [#/volume] in Blood by Automated count 3.04 10^6/uL 4. 20 - 5.40 L [facility] Hemoglobin [Mass/volume] in Blood 9.3 g/dL 12.0 - 16.0 L [facility] Hematocrit [Volume Fraction] of Blood by Automated count 32.3 % 3 7.0 - 47.0 L [facility] Erythrocyte mean corpuscular volume [Entitic volume] b y Automated count 106.3 fL 81.0 - 101 H [facility] Erythrocyte mean corpuscular hemoglobin [Entitic mass] by Automated count 30.6 pg 27.0 - 34.0 [facility] Erythrocyte mean corpuscular hemoglobin concentration [Mass/volume] by Automated count 28.8 g/dL 31.0 - 36.0 L [facility] Erythrocyte distribution width [Ratio] by Automated count 17.0 % 11.5 - 14.5 H [facility] Platelets [#/volume] in Blood by Automated count 270 10^3/uL 150 - 45 0 [facility] Platelet mean volume [Entitic volume] in Blood by Automated count 10.1 fL 7.4 - 10.4 [facility] Neutrophils/100 leukocytes in Blood by Automated count 62.4 % 37. 0 - 80.0 [facility] Lymphocytes/100 leukocytes in Blood by Manual count 12.1 % 25.0 - 40.0 L [facility] Monocytes/100 leukocytes in Blood by Automated count 12.4 % 3.0 - 8.0 H [facility] Eosinophils/100 leukocytes in Blood by Automated count 6.7 % 0.0 - 7.0 [facility] Basophils/100 leukocytes in Blood by Automated count 0.4 % 0.0 - 2.5 [facility] %IG 6.0 % 0.0 - 0.0 H [facility] %NRBC 0.3 % 0.0 - 0.0 H [facility] Neutrophils [#/volume] in Blood by Automated count 6.77 10^3/uL 2.00 - 6.90 [facility] Lymphocytes [#/volume] in Blood by Automated count 1.31 10^3/uL 0.60 - 3.40 [facility] Monocytes [#/volume] in Blood by Automated count 1.35 10^3/uL 0.00 - 0.90 H [facility] Eosinophils [#/volume] in Blood by Automated count 0.73 10^3/uL 0.00 - 0.70 H [facility] Basophils [#/volume] in Blood by Automated count 0.04 10^3/uL 0.00 - 0.20 [facility] #IG 0.65 10^3/uL 0.00 - 0.10 H [facility] #NRBC 0.03 10^3/uL 0.00 - 0.00 H [facility] MANUAL DIFF SEE BELOW [facility] ital Segmented neutrophils/100 leukocytes in Blood by Manual count 71 % 37 - 80 [facility] %LYMPH 10 % 25 - 40 L [facility] %MONO 9 % 3 - 8 H [facility] %EOS 8 % 0 - 7 H [facility] Myelocytes/100 leukocytes in Blood by Manual count 2 % [facility] RBC MORPH SEE BELOW [facility] Anisocytosis [Presence] in Blood by Light microscopy 1+ FARRUKH L: NONE SEEN A [facility] Microcytes [Presence] in Blood by Light microscopy 1+ NORMAL: NONE SEEN A [facility] HYPO 1+ NORMAL: NONE SEEN A [facility] Basophilic stippling [Presence] in Blood by Light microscopy 2+ NORMAL: NONE SEEN A [facility] { SICKLE CELL (NORMAL: NONE SEEN ) Platelet adequacy [Presence] in Blood by Light microscopy NORMAL NORMAL: NORMAL [facility] COMMENT: ID Date Data Source [id number] 05/31/2020 06:40:00 AM EDT [facility] Name Value Range Interpretation Code Description Data Ro rce(s) Supporting Document(s) Magnesium [Mass/volume] in Serum or Plasma 1.8 MG/DL 1.7 - 2.2 [facility] ID Date Data Source [id number] 05/31/2020 06:39:00 AM EDT [facility] Name Value Range Interpretation Code Description Data Ro rce(s) Supporting Document(s) COMPREHENSIVE METABOLIC PANEL [facility] COMPREHENSIVE METABOLIC PANEL Sodium [Moles/volume] in Serum or Plasma 146 mEq/L 134 - 153 [facility] Potassium [Moles/volume] in Serum or Plasma 5.6 mEq/L 3.6 - 5.0 H [facility] Chloride [Moles/volume] in Serum or Plasma 102 mEq/L 98 - 107 [facility] Carbon dioxide, total [Moles/volume] in Serum or Plasma 41 MEQ/L 22 - 30 HH [facility] VERIFIED BY REPEAT CALL/ READ BACK CALLED TO MARY GRACE [facility] BY: MARLYS [facility] DATE/TIME 0605-31-2020 [facility] Glucose [Mass/volume] in Serum or Plasma 100 MG/DL 65 - 110 [facility] BUN 52 MG/DL 7 - 21 H [facility] Creatinine [Mass/volume] in Serum or Plasma 2.2 MG/DL 0.7 - 1.5 H [facility] BUN/CREAT 24 8 - 27 [facility] Protein [Mass/volume] in Serum or Plasma 5.4 G/DL 6.3 - 8.2 L [facility] Albumin [Mass/volume] in Serum or Plasma 3.4 G/DL 3.9 - 5.0 L [facility] Globulin [Mass/volume] in Serum by calculation 2.0 GM/DL 2.4 - 3.2 L [facility] A/G RATIO 1.7 0.8 - 2.0 [facility] Calcium [Mass/volume] in Serum or Plasma 9.4 MG/DL 8.4 - 10.2 [facility] Bilirubin.total [Mass/volume] in Serum or Plasma <0.7 MG/DL 0.2 - 1.3 [facility] Alkaline phosphatase [Enzymatic activity/volume] in Serum or Plasma 54 U/L 38 - 126 [facility] Aspartate aminotransferase [Enzymatic activity/volume] in Serum or Plasma 15 U/L 5 - 40 [facility] Alanine aminotransferase [Enzymatic activity/volume] in Seru m or Plasma 43 U/L 7 - 56 [facility] Anion gap 3 in Serum or Plasma 3.0 mmol/L 8.0 - 16.0 L [facility] AGE 75 yrs [facility] al NON-AA GFR 23 mL/min [facility] AFR AMER GFR >60 [facility] Male GFR In terprentation 20-49 [...] >32 mL/min Normal ID Date Data Source [id number] 05/31/2020 01:31:[place] [address] RESPIRATORY CARE REPORT ==== ---------NAME------- NUMBER SEX AGE ADMIT DISC. XRAY# F/C TYPEMARGARETCINDY Whitley [id number] F 75 05/28/20 [id number] ME8 I/P DATE OF : 1945 M/R# [id number] PH#: [phone] 119-1 LOCATION: EKG 61966 COMPLETE:05/30/20 0 8:24 M [id number] PHYSICIAN: REY PAUL Name Value Range Interpretation Code Description Data Ro rce(s) Supporting Document(s) ID Date Data Source [id number] 05/30/2020 03:11:00 [place] [address] PHONE: [phone] FAX: [phone] Name .................. : PATRICIADEVI Whitley Acct Number.................. : [id number] ROOM. ................. : 119-1 Number ................... : [id number] Stay type ............. : I/P Discharge Date......... ... : Admit Date ......... : 05/10 Admit Phys .................... : REY BEVERLY Date of ....... : 1945 Family Phys ................... : [employer] Phone .................. : [phone] Age ................................ : 75 Film# .................. .:[id number] Sex ................................. : F Unsigned transcriptions are preliminary reports and do not represent a medical or legal document CHEST 2 VIEWS [id number] COMPLETE:05/29/20 06:10 DLA 78875 (REASON FOR CHEST: CHF CHEST X-RAY: 2-VIEWS [...] By Robert Gilliland M.D. , 05/30/20 15:11, [facility] Transcribe Initials: KIRIT , Transcribe Date: 05/29/20 22:02, Dictation Date: Copy for: 002 [facility] Copy for: 710 [facility] REC Page 1 of 1 Name Value Range Interpretation Code Description Data Ro rce(s) Supporting Document(s) ID Date Data Source [id number] 05/30/2020 03:00:00 PM EDT [facility] [address] [place] [address] PHONE: [phone] FAX: [phone] Name .................. : TR Whitley Acct Number.................. : [id number] ROOM. ................. : 119-1 MR Number ................... : [id number] Stay type ............. : I/P Discharge Date......... ... : Admit Date ......... : 05/10 Admit Phys .................... : REY BEVERLY Date of ....... : 1945 Family Phys ................... : [employer] Phone .................. : [phone] Age ................................ : 75 Film# .................. .:[id number] Sex ................................. : F Unsigned transcriptions are preliminary reports and do not represent a medical or legal document CHEST 2 VIEWS 94094 COMPLETE:05/30/20 06:35 DLA 33049 (REASON FOR CHEST: CHF CHEST TWO VIEWS, [...] 05/30/20 12:35, Dictation Date: Copy for: 002 [facility] Copy for: 710 [facility] Page 1 of 1 Name Value Range Interpretation Code Description Data Ro rce(s) Supporting Document(s) ID Date Data Source [id number] 05/30/2020 07:35:00 AM EDT [facility] Name Value Range Interpretation Code Description Data Ro rce(s) Supporting Document(s) CBC W/AUTOMATED DIFF [facility] COMPLETE BLOOD COUNT Leukocytes [#/volume] in Blood by Automated count 12.7 10^3/uL 4.2 - 11.0 H [facility] Erythrocytes [#/volume] in Blood by Automated count 3.08 10^6/uL 4. 20 - 5.40 L [facility] Hemoglobin [Mass/volume] in Blood 9.4 g/dL 12.0 - 16.0 L [facility] Hematocrit [Volume Fraction] of Blood by Automated count 32.7 % 3 7.0 - 47.0 L [facility] Erythrocyte mean corpuscular volume [Entitic volume] b y Automated count 106.2 fL 81.0 - 101 H [facility] Erythrocyte mean corpuscular hemoglobin [Entitic mass] by Automated count 30.5 pg 27.0 - 34.0 [facility] Erythrocyte mean corpuscular hemoglobin concentration [Mass/volume] by Automated count 28.7 g/dL 31.0 - 36.0 L [facility] Erythrocyte distribution width [Ratio] by Automated count 17.2 % 11.5 - 14.5 H [facility] Platelets [#/volume] in Blood by Automated count 314 10^3/uL 150 - 45 0 [facility] Platelet mean volume [Entitic volume] in Blood by Automated count 10.1 fL 7.4 - 10.4 [facility] Neutrophils/100 leukocytes in Blood by Automated count 58.5 % 37. 0 - 80.0 [facility] Lymphocytes/100 leukocytes in Blood by Manual count 15.1 % 25.0 - 40.0 L [facility] Monocytes/100 leukocytes in Blood by Automated count 12.7 % 3.0 - 8.0 H [facility] Eosinophils/100 leukocytes in Blood by Automated count 5.3 % 0.0 - 7.0 [facility] Basophils/100 leukocytes in Blood by Automated count 0.7 % 0.0 - 2.5 [facility] %IG 7.7 % 0.0 - 0.0 H [facility] al %NRBC 0.9 % 0.0 - 0.0 H [facility] al Neutrophils [#/volume] in Blood by Automated count 7.41 10^3/uL 2.00 - 6.90 H [facility] Lymphocytes [#/volume] in Blood by Automated count 1.91 10^3/uL 0.60 - 3.40 [facility] Monocytes [#/volume] in Blood by Automated count 1.61 10^3/uL 0.00 - 0.90 H [facility] Eosinophils [#/volume] in Blood by Automated count 0.67 10^3/uL 0.00 - 0.70 [facility] Basophils [#/volume] in Blood by Automated count 0.09 10^3/uL 0.00 - 0.20 [facility] #IG 0.98 10^3/uL 0.00 - 0.10 H [facility] #NRBC 0.11 10^3/uL 0.00 - 0.00 H [facility] MANUAL DIFF SEE BELOW [facility] ital Segmented neutrophils/100 leukocytes in Blood by Manual count 67 % 37 - 80 [facility] BAND 1 % 0 - 5 [facility] al %LYMPH 14 % 25 - 40 L [facility] al %MONO 7 % 3 - 8 [facility] al %EOS 11 % 0 - 7 H [facility] al Nucleated erythrocytes/100 erythrocytes in Blood by Manual count 1 % [facility] RBC MORPH SEE BELOW [facility] al Anisocytosis [Presence] in Blood by Light microscopy 1+ FARRUKH L: NONE SEEN A [facility] Macrocytes [Presence] in Blood by Light microscopy 1+ NORMAL: NONE SEEN A [facility] Poikilocytosis [Presence] in Blood by Light microscopy 1+ NOR MAL: NONE SEEN A [facility] HYPO 1+ NORMAL: NONE SEEN A [facility] Polychromasia [Presence] in Blood by Light microscopy 1+ NORM AL: NONE SEEN A [facility] { SICKLE CELL (NORMAL: NONE SEEN ) Platelet adequacy [Presence] in Blood by Light microscopy NORMAL NORMAL: NORMAL [facility] COMMENT: ID Date Data Source [id number] 05/30/2020 07:28:00 AM EDT [facility] Name Value Range Interpretation Code Description Data Ro rce(s) Supporting Document(s) COMPREHENSIVE METABOLIC PANEL [facility] COMPREHENSIVE METABOLIC PANEL Sodium [Moles/volume] in Serum or Plasma 144 mEq/L 134 - 153 [facility] Potassium [Moles/volume] in Serum or Plasma 5.2 mEq/L 3.6 - 5.0 H [facility] Chloride [Moles/volume] in Serum or Plasma 101 mEq/L 98 - 107 [facility] Carbon dioxide, total [Moles/volume] in Serum or Plasma 39 MEQ/L 22 - 30 H [facility] Glucose [Mass/volume] in Serum or Plasma 90 MG/DL 65 - 110 [facility] BUN 59 MG/DL 7 - 21 H [facility] Creatinine [Mass/volume] in Serum or Plasma 2.3 MG/DL 0.7 - 1.5 H [facility] BUN/CREAT 26 8 - 27 [facility] Protein [Mass/volume] in Serum or Plasma 5.6 G/DL 6.3 - 8.2 L [facility] Albumin [Mass/volume] in Serum or Plasma 3.5 G/DL 3.9 - 5.0 L [facility] Globulin [Mass/volume] in Serum by calculation 2.1 GM/DL 2.4 - 3.2 L [facility] A/G RATIO 1.7 0.8 - 2.0 [facility] Calcium [Mass/volume] in Serum or Plasma 8.9 MG/DL 8.4 - 10.2 [facility] Bilirubin.total [Mass/volume] in Serum or Plasma <0.7 MG/DL 0.2 - 1.3 [facility] Alkaline phosphatase [Enzymatic activity/volume] in Serum or Plasma 52 U/L 38 - 126 [facility] Aspartate aminotransferase [Enzymatic activity/volume] in Serum or Plasma 20 U/L 5 - 40 [facility] Alanine aminotransferase [Enzymatic activity/volume] in Seru m or Plasma 53 U/L 7 - 56 [facility] Anion gap 3 in Serum or Plasma 4.0 mmol/L 8.0 - 16.0 L [facility] 75 [facility] AFR AMER GFR >60 [facility] Male GFR In terprentation 20-49 [...] >32 mL/min Normal ID Date Data Source [id number] 05/30/2020 07:28:00 AM EDT [facility] Name Value Range Interpretation Code Description Data Or rce(s) Supporting Document(s) Magnesium [Mass/volume] in Serum or Plasma 1.8 MG/DL 1.7 - 2.2 [facility] ID Date Data Source [id number] 05/30/2020 03:10:00 [place] [address] RESPIRATORY CARE REPORT ==== ---------NAME------- NUMBER SEX AGE ADMIT DISC. XRAY# F/C BENCINDY Whitley [id number] F 75 05/28/20 [id number] ME8 I/P DATE OF : 1945 M/R# [id number] #: [id number] LOCATION: EKG [id number] COMPLETE:05/29/20 0 8:15 [facility] [address] PHYSICIAN: REY PAUL Name Value Range Interpretation Code Description Data Ro rce(s) Supporting Document(s) ID Date Data Source [id number] 05/27/2020 10:38:00 [place] [address] PROGRESS NOTENAME: TR Whitley ROOM#: [id number] OF : 1945 MR#: [id number] DATE: 05/22/20 OF SERVICE: 05/27/20UBJECTIVE: This patient [...] rce(s) Supporting Document(s) ID Date Data Source [id number] 05/26/2020 11:50:00 [place] [address] PROGRESS NOTENAME: TR Whitley ROOM#: [id number] OF : 1945 MR#: [id number] DATE: 05/22/20 OF SERVICE: 05/26/20UBJECTIVE: This patient [...] rce(s) Supporting Document(s) ID Date Data Source [id number] 05/25/2020 11:03:00 [place] [address] PROGRESS NOTENAME: TR Whitley ROOM#: [id number] OF : 1945 MR#: [id number] DATE: 05/22/20 OF SERVICE: 05/25/2020SUBJECTIVE:Patient has known [...] rce(s) Supporting Document(s) ID Date Data Source [id number] 05/24/2020 11:05:00 [place] [address] PROGRESS NOTENAME: TR Whitley ROOM#: [id number] OF : 1945 MR#: [id number] DATE: 05/22/20 OF SERVICE: 05/24/20UBJECTIVE: This is [...] rce(s) Supporting Document(s) ID Date Data Source [id number] 05/23/2020 11:37:00 PM EDT [address] [address] PROGRESS NOTENAME: TR Whitley ROOM#: [id number] OF : 1945 MR#: [id number] DATE: 05/22/20 OF SERVICE: 05/23/20UBJECTIVE: This patient [...] rce(s) Supporting Document(s) ID Date Data Source [id number] 05/22/2020 12:07:00 [place] [address] HISTORY AND PHYSICALNAME: TR Whitley ROOM#: [id number] OF : 1945 MR#: [id number] PHYS: Silver Peterson MD, PC DATE: 05/22/20CHIEF [...] valve repair andmitral valve ring surgery at [facility] on 04/04/20. She has known history of COPD, historyof chronic kidney failure, history of cardiomyopathy, history of hypertension, history of anemia.PERSONAL HISTORY:Patient smokes half pack.FAMILY HISTORY:Father and mother both had heart disease.PHYSICAL EXAMINATION: [address] [place] [id number] HISTORY AND PHYSICAL NAME: TR Whitley ROOM#: [id number] DATE OF : 1945 MR#: [id number] ATTENDING PHYS: Silver Peterson MD, PC ADMISSION [...] rce(s) Supporting Document(s) ID Date Data Source [id number] 05/29/2020 10:49:00 [place] [address] DISCHARGE SUMMARYNAME: TR Whitley ROOM#: [id number] OF : 1945 MR#: [id number] PHYS: Silver Peterson MD, PC DATE: 05/22/20 [...] fortricuspid regurgitation. She had surgery done in [facility] several months ago. On exam,blood pressure [...] IV fluid.COURSE DURING HOSPITALIZATION:Patient was put on playground monitor, 2 L of oxygen per minute [...] mg once a day. The patient [address] [place] [address] DISCHARGE SUMMARYNAME: TR Whitley ROOM#: [id number] OF : 1945 MR#: [id number] PHYS: Silver Peterson MD, PC DATE: 05/22/20 [...] rce(s) Supporting Document(s) ID Date Data Source [id number] 05/29/2020 10:26:00 AM EDT [facility] [address] [place] [address] PHONE: [phone] FAX: [phone] Name .................. : TR Whitley Acct Number.................. : [id number] ROOM. ................. : [address] Number ................... : [id number] Stay type ............. : I/P Discharge Date......... ... : Admit Date ......... : 05/22/20 Admit Phys .................... : REY BEVERLY Date of ....... : 1945 Family Phys ................... : [employer] Phone .................. : [phone] Age ................................ : 75 Film# .................. .:[id number] Sex ................................. : F Unsigned transcriptions are preliminary reports and do not represent a medical or legal document CT THORAX W/O CONTRAST 14032 COMPLETE:05/26/20 12:04 RLB [id number] (REASON FOR CHEST: CHF CT OF THE [...] rce(s) Supporting Document(s) ID Date Data Source [id number] 05/29/2020 07:46:00 AM EDT [facility] Name Value Range Interpretation Code Description Data Ro rce(s) Supporting Document(s) Magnesium [Mass/volume] in Serum or Plasma 1.8 MG/DL 1.7 - 2.2 [facility] ID Date Data Source [id number] 05/29/2020 07:46:00 AM EDT [facility] Name Value Range Interpretation Code Description Data Ro rce(s) Supporting Document(s) COMPREHENSIVE METABOLIC PANEL [facility] COMPREHENSIVE METABOLIC PANEL Sodium [Moles/volume] in Serum or Plasma 145 mEq/L 134 - 153 [facility] Potassium [Moles/volume] in Serum or Plasma 5.3 mEq/L 3.6 - 5.0 H [facility] Chloride [Moles/volume] in Serum or Plasma 103 mEq/L 98 - 107 [facility] Carbon dioxide, total [Moles/volume] in Serum or Plasma 37 MEQ/L 22 - 30 H [facility] Glucose [Mass/volume] in Serum or Plasma 101 MG/DL 65 - 110 [facility] BUN 65 MG/DL 7 - 21 H [facility] Creatinine [Mass/volume] in Serum or Plasma 2.2 MG/DL 0.7 - 1.5 H [facility] BUN/CREAT 30 8 - 27 H [facility] Protein [Mass/volume] in Serum or Plasma 5.7 G/DL 6.3 - 8.2 L [facility] Albumin [Mass/volume] in Serum or Plasma 3.5 G/DL 3.9 - 5.0 L [facility] Globulin [Mass/volume] in Serum by calculation 2.2 GM/DL 2.4 - 3.2 L [facility] A/G RATIO 1.6 0.8 - 2.0 [facility] Calcium [Mass/volume] in Serum or Plasma 8.3 MG/DL 8.4 - 10.2 L [facility] Bilirubin.total [Mass/volume] in Serum or Plasma <0.7 MG/DL 0.2 - 1.3 [facility] Alkaline phosphatase [Enzymatic activity/volume] in Serum or Plasma 54 U/L 38 - 126 [facility] Aspartate aminotransferase [Enzymatic activity/volume] in Serum or Plasma 15 U/L 5 - 40 [facility] Alanine aminotransferase [Enzymatic activity/volume] in Seru m or Plasma 50 U/L 7 - 56 [facility] Anion gap 3 in Serum or Plasma 5.0 mmol/L 8.0 - 16.0 L [facility] AGE 75 yrs [facility] al NON-AA GFR 23 mL/min [facility] AFR AMER GFR >60 [facility] Male GFR In terprentation 20-49 [...] >32 mL/min Normal ID Date Data Source [id number] 05/29/2020 07:46:00 AM EDT [facility] Name Value Range Interpretation Code Description Data Ro rce(s) Supporting Document(s) Iron [Mass/volume] in Serum or Plasma 87 UG/DL 42 - 135 [facility] ID Date Data Source [id number] 05/29/2020 07:42:00 AM EDT [facility] Name Value Range Interpretation Code Description Data Ro rce(s) Supporting Document(s) CBC W/AUTOMATED DIFF [facility] COMPLETE BLOOD COUNT Leukocytes [#/volume] in Blood by Automated count 12.2 10^3/uL 4.2 - 11.0 H [facility] Erythrocytes [#/volume] in Blood by Automated count 3.05 10^6/uL 4. 20 - 5.40 L [facility] Hemoglobin [Mass/volume] in Blood 9.2 g/dL 12.0 - 16.0 L [facility] Hematocrit [Volume Fraction] of Blood by Automated count 31.8 % 3 7.0 - 47.0 L [facility] Erythrocyte mean corpuscular volume [Entitic volume] b y Automated count 104.3 fL 81.0 - 101 H [facility] Erythrocyte mean corpuscular hemoglobin [Entitic mass] by Automated count 30.2 pg 27.0 - 34.0 [facility] Erythrocyte mean corpuscular hemoglobin concentration [Mass/volume] by Automated count 28.9 g/dL 31.0 - 36.0 L [facility] Erythrocyte distribution width [Ratio] by Automated count 16.6 % 11.5 - 14.5 H [facility] Platelets [#/volume] in Blood by Automated count 312 10^3/uL 150 - 45 0 [facility] Platelet mean volume [Entitic volume] in Blood by Automated count 10.0 fL 7.4 - 10.4 [facility] Neutrophils/100 leukocytes in Blood by Automated count 70.6 % 37. 0 - 80.0 [facility] Lymphocytes/100 leukocytes in Blood by Manual count 10.0 % 25.0 - 40.0 L [facility] Monocytes/100 leukocytes in Blood by Automated count 11.5 % 3.0 - 8.0 H [facility] Eosinophils/100 leukocytes in Blood by Automated count 0.2 % 0.0 - 7.0 [facility] Basophils/100 leukocytes in Blood by Automated count 0.7 % 0.0 - 2.5 [facility] %IG 7.0 % 0.0 - 0.0 H [facility] al %NRBC 1.1 % 0.0 - 0.0 H [facility] al Neutrophils [#/volume] in Blood by Automated count 8.63 10^3/uL 2.00 - 6.90 H [facility] Lymphocytes [#/volume] in Blood by Automated count 1.22 10^3/uL 0.60 - 3.40 [facility] Monocytes [#/volume] in Blood by Automated count 1.40 10^3/uL 0.00 - 0.90 H [facility] Eosinophils [#/volume] in Blood by Automated count 0.02 10^3/uL 0.00 - 0.70 [facility] Basophils [#/volume] in Blood by Automated count 0.08 10^3/uL 0.00 - 0.20 [facility] #IG 0.85 10^3/uL 0.00 - 0.10 H [facility]ital #NRBC 0.14 10^3/uL 0.00 - 0.00 H [facility] H ospital MANUAL DIFF SEE BELOW [facility] ital Segmented neutrophils/100 leukocytes in Blood by Manual count 75 % 37 - 80 [facility] BAND 1 % 0 - 5 [facility] %LYMPH 10 % 25 - 40 L [facility] al %MONO 10 % 3 - 8 H [facility] al Metamyelocytes/100 leukocytes in Blood by Manual count 2 % [facility] Myelocytes/100 leukocytes in Blood by Manual count 2 % [facility] Nucleated erythrocytes/100 erythrocytes in Blood by Manual count 2 % [facility] RBC MORPH SEE BELOW [facility] al Anisocytosis [Presence] in Blood by Light microscopy 1+ FARRUKH L: NONE SEEN A [facility] Macrocytes [Presence] in Blood by Light microscopy 1+ NORMAL: NONE SEEN A [facility] Poikilocytosis [Presence] in Blood by Light microscopy 1+ NOR MAL: NONE SEEN A [facility] HYPO 1+ NORMAL: NONE SEEN A [facility] { SICKLE CELL (NORMAL: NONE SEEN ) Platelet adequacy [Presence] in Blood by Light microscopy NORMAL NORMAL: NORMAL [facility] COMMENT: ID Date Data Source [id number] 05/29/2020 07:26:00 AM EDT [facility] Name Value Range Interpretation Code Description Data Ro rce(s) Supporting Document(s) BNP 15067 PG/ML 0 - 125 H [facility] ital ID Date Data Source [id number] 05/28/2020 08:11:00 AM [facility] Name Value Range Interpretation Code Description Data Ro rce(s) Supporting Document(s) COMPREHENSIVE METABOLIC PANEL [facility] COMPREHENSIVE METABOLIC PANEL Sodium [Moles/volume] in Serum or Plasma 142 mEq/L 134 - 153 [facility] Potassium [Moles/volume] in Serum or Plasma 5.1 mEq/L 3.6 - 5.0 H [facility] Chloride [Moles/volume] in Serum or Plasma 100 mEq/L 98 - 107 [facility] Carbon dioxide, total [Moles/volume] in Serum or Plasma 32 MEQ/L 22 - 30 H [facility] Glucose [Mass/volume] in Serum or Plasma 133 MG/DL 65 - 110 H [facility] BUN 78 MG/DL 7 - 21 HH [facility] al CALL/ READ BACK CALLED TO [facility] BY: TRACIE [facility] al DATE/TIME 05/28/20 @ 0810 [facility] ospital Creatinine [Mass/volume] in Serum or Plasma 2.4 MG/DL 0.7 - 1.5 H [facility] BUN/CREAT 33 8 - 27 H [facility] al Protein [Mass/volume] in Serum or Plasma 5.6 G/DL 6.3 - 8.2 L [facility] Albumin [Mass/volume] in Serum or Plasma 3.4 G/DL 3.9 - 5.0 L [facility] Globulin [Mass/volume] in Serum by calculation 2.2 GM/DL 2.4 - 3.2 L [facility] A/G RATIO 1.5 0.8 - 2.0 [facility] Calcium [Mass/volume] in Serum or Plasma 7.8 MG/DL 8.4 - 10.2 L [facility] Bilirubin.total [Mass/volume] in Serum or Plasma <0.7 MG/DL 0.2 - 1.3 [facility] Alkaline phosphatase [Enzymatic activity/volume] in Serum or Plasma 59 U/L 38 - 126 [facility] Aspartate aminotransferase [Enzymatic activity/volume] in Serum or Plasma 21 U/L 5 - 40 [facility] Alanine aminotransferase [Enzymatic activity/volume] in Seru m or Plasma 62 U/L 7 - 56 H [facility] Anion gap 3 in Serum or Plasma 10.0 mmol/L 8.0 - 16.0 [facility] AGE 75 yrs [facility] al NON-AA GFR 21 mL/min [facility] AFR AMER GFR >60 [facility] Male GFR In terprentation 20-49 [...] >32 mL/min Normal ID Date Data Source [id number] 05/28/2020 07:43:00 AM EDT [facility] Name Value Range Interpretation Code Description Data Ro rce(s) Supporting Document(s) CBC W/AUTOMATED DIFF [facility] COMPLETE BLOOD COUNT Leukocytes [#/volume] in Blood by Automated count 12.0 10^3/uL 4.2 - 11.0 H [facility] Erythrocytes [#/volume] in Blood by Automated count 3.03 10^6/uL 4. 20 - 5.40 L [facility] Hemoglobin [Mass/volume] in Blood 9.3 g/dL 12.0 - 16.0 L [facility] Hematocrit [Volume Fraction] of Blood by Automated count 31.2 % 3 7.0 - 47.0 L [facility] Erythrocyte mean corpuscular volume [Entitic volume] b y Automated count 103.0 fL 81.0 - 101 H [facility] Erythrocyte mean corpuscular hemoglobin [Entitic mass] by Automated count 30.7 pg 27.0 - 34.0 [facility] Erythrocyte mean corpuscular hemoglobin concentration [Mass/volume] by Automated count 29.8 g/dL 31.0 - 36.0 L [facility] Erythrocyte distribution width [Ratio] by Automated count 16.5 % 11.5 - 14.5 H [facility] Platelets [#/volume] in Blood by Automated count 317 10^3/uL 150 - 45 0 [facility] Platelet mean volume [Entitic volume] in Blood by Automated count 10.4 fL 7.4 - 10.4 [facility] Neutrophils/100 leukocytes in Blood by Automated count 78.3 % 37. 0 - 80.0 [facility] Lymphocytes/100 leukocytes in Blood by Manual count 8.0 % 25.0 - 40.0 L [facility] Monocytes/100 leukocytes in Blood by Automated count 8.5 % 3.0 - 8.0 H [facility] Eosinophils/100 leukocytes in Blood by Automated count 0.1 % 0.0 - 7.0 [facility] Basophils/100 leukocytes in Blood by Automated count 0.4 % 0.0 - 2.5 [facility] %IG 4.7 % 0.0 - 0.0 H [facility] al %NRBC 1.6 % 0.0 - 0.0 [facility] Neutrophils [#/volume] in Blood by Automated count 9.37 10^3/uL 2.00 - 6.90 H [facility] Lymphocytes [#/volume] in Blood by Automated count 0.96 10^3/uL 0.60 - 3.40 [facility] Monocytes [#/volume] in Blood by Automated count 1.02 10^3/uL 0.00 - 0.90 H [facility] Eosinophils [#/volume] in Blood by Automated count 0.01 10^3/uL 0.00 - 0.70 [facility] Basophils [#/volume] in Blood by Automated count 0.05 10^3/uL 0.00 - 0.20 [facility] #IG 0.56 10^3/uL 0.00 - 0.10 H [facility] H ospital #NRBC 0.19 10^3/uL 0.00 - 0.00 H [facility] ospital MANUAL DIFF NOT INDICATED [facility] RBC MORPH NOT INDICATED [facility] spital ID Date Data Source [id number] 05/27/2020 08:29:00 AM EDT [facility] Name Value Range Interpretation Code Description Data Ro rce(s) Supporting Document(s) CBC W/AUTOMATED DIFF [facility] COMPLETE BLOOD COUNT Leukocytes [#/volume] in Blood by Automated count 12.6 10^3/uL 4.2 - 11.0 H [facility] Erythrocytes [#/volume] in Blood by Automated count 3.02 10^6/uL 4. 20 - 5.40 L [facility] Hemoglobin [Mass/volume] in Blood 9.1 g/dL 12.0 - 16.0 L [facility] Hematocrit [Volume Fraction] of Blood by Automated count 30.6 % 3 7.0 - 47.0 L [facility] Erythrocyte mean corpuscular volume [Entitic volume] b y Automated count 101.3 fL 81.0 - 101 H [facility] Erythrocyte mean corpuscular hemoglobin [Entitic mass] by Automated count 30.1 pg 27.0 - 34.0 [facility] Erythrocyte mean corpuscular hemoglobin concentration [Mass/volume] by Automated count 29.7 g/dL 31.0 - 36.0 L [facility] Erythrocyte distribution width [Ratio] by Automated count 16.2 % 11.5 - 14.5 H [facility] Platelets [#/volume] in Blood by Automated count 312 10^3/uL 150 - 45 0 [facility] Platelet mean volume [Entitic volume] in Blood by Automated count 10.5 fL 7.4 - 10.4 H [facility] Neutrophils/100 leukocytes in Blood by Automated count 75.8 % 37. 0 - 80.0 [facility] Lymphocytes/100 leukocytes in Blood by Manual count 8.8 % 25.0 - 40.0 L [facility] Monocytes/100 leukocytes in Blood by Automated count 10.4 % 3.0 - 8.0 H [facility] Eosinophils/100 leukocytes in Blood by Automated count 0.0 % 0.0 - 7.0 [facility] 0.4 %IG 4.6 % 0.0 - 0.0 H [facility] al %NRBC 2.3 % 0.0 - 0.0 H [facility] al Neutrophils [#/volume] in Blood by Automated count 9.55 10^3/uL 2.00 - 6.90 H [facility] Lymphocytes [#/volume] in Blood by Automated count 1.11 10^3/uL 0.60 - 3.40 [facility] Monocytes [#/volume] in Blood by Automated count 1.31 10^3/uL 0.00 - 0.90 H [facility] Eosinophils [#/volume] in Blood by Automated count 0.00 10^3/uL 0.00 - 0.70 [facility] Basophils [#/volume] in Blood by Automated count 0.05 10^3/uL 0.00 - 0.20 [facility] #IG 0.58 10^3/uL 0.00 - 0.10 H [facility] ospital #NRBC 0.29 10^3/uL 0.00 - 0.00 H [facility] H ospital MANUAL DIFF SEE BELOW [facility] ital Segmented neutrophils/100 leukocytes in Blood by Manual count 83 % 37 - 80 H [facility] BAND 0 % 0 - 5 [facility] al %LYMPH 12 % 25 - 40 L [facility] %MONO 5 % 3 - 8 [facility] %EOS 0 % 0 - 7 [facility] 0 Nucleated erythrocytes/100 erythrocytes in Blood by Manual count 2 % [facility] RBC MORPH NOT INDICATED [facility] spital ID Date Data Source [id number] 05/27/2020 08:00:00 AM EDT [facility] Name Value Range Interpretation Code Description Data Ro rce(s) Supporting Document(s) COMPREHENSIVE METABOLIC PANEL [facility] COMPREHENSIVE METABOLIC PANEL Sodium [Moles/volume] in Serum or Plasma 138 mEq/L 134 - 153 [facility] Potassium [Moles/volume] in Serum or Plasma 4.9 mEq/L 3.6 - 5.0 [facility] Chloride [Moles/volume] in Serum or Plasma 98 mEq/L 98 - 107 [facility] Carbon dioxide, total [Moles/volume] in Serum or Plasma 30 MEQ/L 22 - 30 [facility] Glucose [Mass/volume] in Serum or Plasma 137 MG/DL 65 - 110 H [facility] BUN 85 MG/DL 7 - 21 [facility]/ READ BACK CALLED TO [facility] BY: TRACIE [facility] DATE/TIME 05/27/20 @ 0800 [facility] ospital Creatinine [Mass/volume] in Serum or Plasma 2.6 MG/DL 0.7 - 1.5 H [facility] BUN/CREAT 33 8 - 27 H [facility] Protein [Mass/volume] in Serum or Plasma 5.4 G/DL 6.3 - 8.2 L [facility] Albumin [Mass/volume] in Serum or Plasma 3.3 G/DL 3.9 - 5.0 L [facility] Globulin [Mass/volume] in Serum by calculation 2.1 GM/DL 2.4 - 3.2 L [facility] A/G RATIO 1.6 0.8 - 2.0 [facility] Calcium [Mass/volume] in Serum or Plasma 7.1 MG/DL 8.4 - 10.2 L [facility] Bilirubin.total [Mass/volume] in Serum or Plasma <0.7 MG/DL 0.2 - 1.3 [facility] Alkaline phosphatase [Enzymatic activity/volume] in Serum or Plasma 61 U/L 38 - 126 [facility] Aspartate aminotransferase [Enzymatic activity/volume] in Serum or Plasma 36 U/L 5 - 40 [facility] Alanine aminotransferase [Enzymatic activity/volume] in Seru m or Plasma 77 U/L 7 - 56 H [facility] Anion gap 3 in Serum or Plasma 10.0 mmol/L 8.0 - 16.0 [facility] AGE 75 yrs [facility] al NON-AA GFR 19 mL/min [facility] AFR AMER GFR >60 [facility] Male GFR In terprentation 20-49 [...] >32 mL/min Normal ID Date Data Source [id number] 05/26/2020 09:22:00 AM EDT [facility] [address] [place] [address] PHONE: [phone] FAX: [phone] Name .................. : TR Whitley Acct Number.................. : [id number] ROOM. ................. : CCU3 Number ................... : [id number] Stay type ............. : I/P Discharge Date......... ... : Admit Date ......... : 05/09 12/26 Admit Phys .................... : REY BEVERLY Date of ....... : 1945 Family Phys ................... : [employer] Phone .................. : [phone] Age ................................ : 75 Film# .................. .:[id number] Sex ................................. : F Unsigned transcriptions are preliminary reports and do not represent a medical or legal document CHEST 2 VIEWS [id number] COMPLETE:05/25/20 06:29 KJE [id number] (REASON FOR CHEST: CHF CHEST X-RAY: 2-VIEWS INDICATION: CHF. COMPARISON: 02/08/20 TECHNIQUE: 2-views of the chest submitted. FINDINGS: Stable hyperinflation. No infiltrate. Borderline cardiomegaly. A left-sided pacemaker. Basilar atelectasis. IMPRESSION: Basilar atelectasis. Hyperinflation. Borderline cardiomegaly. No infiltrate. Electronically Reviewed and Signed By Rishabh Cee MD , 05/26/20 09:22, JANINE Transcribe Initials: KIRIT , Transcribe Date: 05/25/20 16:34, Dictation Date: Copy for: 002 [facility] Copy for: 710 [facility] REC Page 1 of 1 Name Value Range Interpretation Code Description Data Ro rce(s) Supporting Document(s) ID Date Data Source [id number] 05/26/2020 10:33:00 AM EDT [facility] Name Value Range Interpretation Code Description Data Ro rce(s) Supporting Document(s) Cobalamin (Vitamin B12) [Mass/volume] in Serum or Plasma 653 PG/ML 232 - 1245 [facility] ID Date Data Source [id number] 05/26/2020 10:14:00 AM EDT [facility] Name Value Range Interpretation Code Description Data Ro rce(s) Supporting Document(s) Iron [Mass/volume] in Serum or Plasma 48 UG/DL 42 - 135 [facility] ID Date Data Source [id number] 05/26/2020 07:33:00 AM EDT [facility] Name Value Range Interpretation Code Description Data Ro rce(s) Supporting Document(s) COMPREHENSIVE METABOLIC PANEL [facility] COMPREHENSIVE METABOLIC PANEL Sodium [Moles/volume] in Serum or Plasma 137 mEq/L 134 - 153 [facility] Potassium [Moles/volume] in Serum or Plasma 5.1 mEq/L 3.6 - 5.0 H [facility] Chloride [Moles/volume] in Serum or Plasma 96 mEq/L 98 - 107 L [facility] Carbon dioxide, total [Moles/volume] in Serum or Plasma 28 MEQ/L 22 - 30 [facility] Glucose [Mass/volume] in Serum or Plasma 165 MG/DL 65 - 110 H [facility] BUN 87 MG/DL 7 - 21 HH [facility] al ELISEO ON AIUCM05/26/20 0734 Creatinine [Mass/volume] in Serum or Plasma 3.1 MG/DL 0.7 - 1.5 H [facility] BUN/CREAT 28 8 - 27 [facility] Protein [Mass/volume] in Serum or Plasma 5.4 G/DL 6.3 - 8.2 L [facility] Albumin [Mass/volume] in Serum or Plasma 3.1 G/DL 3.9 - 5.0 L [facility] Globulin [Mass/volume] in Serum by calculation 2.3 GM/DL 2.4 - 3.2 L [facility] A/G RATIO 1.3 0.8 - 2.0 [facility] Calcium [Mass/volume] in Serum or Plasma 6.9 MG/DL 8.4 - 10.2 LL [facility] ELISEO ON AIUCM05/26/20 0734 Bilirubin.total [Mass/volume] in Serum or Plasma <0.7 MG/DL 0.2 - 1.3 [facility] Alkaline phosphatase [Enzymatic activity/volume] in Serum or Plasma 56 U/L 38 - 126 [facility] Aspartate aminotransferase [Enzymatic activity/volume] in Serum or Plasma 44 U/L 5 - 40 H [facility] Alanine aminotransferase [Enzymatic activity/volume] in Seru m or Plasma 60 U/L 7 - 56 H [facility] Anion gap 3 in Serum or Plasma 13.0 mmol/L 8.0 - 16.0 [facility] AGE 75 yrs [facility] NON-AA GFR 16 mL/min [facility] Hospi booker AFR AMER GFR >60 [facility] p[facility] Male GFR In terprentation 20-49 [...] >32 mL/min Normal ID Date Data Source [id number] 05/26/2020 06:35:00 AM EDT [facility] Name Value Range Interpretation Code Description Data Ro rce(s) Supporting Document(s) CBC W/AUTOMATED DIFF [facility] COMPLETE BLOOD COUNT Leukocytes [#/volume] in Blood by Automated count 11.2 10^3/uL 4.2 - 11.0 H [facility] Erythrocytes [#/volume] in Blood by Automated count 2.72 10^6/uL 4. 20 - 5.40 L [facility] Hemoglobin [Mass/volume] in Blood 8.3 g/dL 12.0 - 16.0 L [facility] Hematocrit [Volume Fraction] of Blood by Automated count 27.3 % 3 7.0 - 47.0 L [facility] Erythrocyte mean corpuscular volume [Entitic volume] b y Automated count 100.4 fL 81.0 - 101 [facility] Erythrocyte mean corpuscular hemoglobin [Entitic mass] by Automated count 30.5 pg 27.0 - 34.0 [facility] Erythrocyte mean corpuscular hemoglobin concentration [Mass/volume] by Automated count 30.4 g/dL 31.0 - 36.0 L [facility] Erythrocyte distribution width [Ratio] by Automated count 15.9 % 11.5 - 14.5 H [facility] Platelets [#/volume] in Blood by Automated count 260 10^3/uL 150 - 45 0 [facility] Platelet mean volume [Entitic volume] in Blood by Automated count 10.1 fL 7.4 - 10.4 [facility] Neutrophils/100 leukocytes in Blood by Automated count 88.9 % 37. 0 - 80.0 H [facility] Lymphocytes/100 leukocytes in Blood by Manual count 5.0 % 25.0 - 40.0 L [facility] Monocytes/100 leukocytes in Blood by Automated count 2.4 % 3.0 - 8.0 L [facility] Eosinophils/100 leukocytes in Blood by Automated count 0.0 % 0.0 - 7.0 [facility] Basophils/100 leukocytes in Blood by Automated count 0.2 % 0.0 - 2.5 [facility] %IG 3.5 % 0.0 - 0.0 [facility] %NRBC 0.6 % 0.0 - 0.0 H [facility] al Neutrophils [#/volume] in Blood by Automated count 9.95 10^3/uL 2.00 - 6.90 H [facility] Lymphocytes [#/volume] in Blood by Automated count 0.56 10^3/uL 0.60 - 3.40 L [facility] Monocytes [#/volume] in Blood by Automated count 0.27 10^3/uL 0.00 - 0.90 [facility] Eosinophils [#/volume] in Blood by Automated count 0.00 10^3/uL 0.00 - 0.70 [facility] Basophils [#/volume] in Blood by Automated count 0.02 10^3/uL 0.00 - 0.20 [facility] #IG 0.39 10^3/uL 0.00 - 0.10 H [facility] H ospital #NRBC 0.07 10^3/uL 0.00 - 0.00 H [facility] H ospital MANUAL DIFF NOT INDICATED [facility] RBC MORPH NOT INDICATED [facility] Ho spital ID Date Data Source [id number] 05/26/2020 03:21:00 AM EDT [facility] [address] [place] [address] RESPIRATORY CARE REPORT ==== ---------NAME------- NUMBER SEX AGE ADMIT DISC. XRAY# F/C TYPEDUFFANY DONALD Gutierrez [id number] F 75 05/22/20 [id number] M8 I/P DATE OF : 1945 M/R# [id number] #: [id number] CCU3 LOCATION: [facility] [id number] COMPLETE:05/25/20 08 :22 [facility] [id number] PHYSICIAN: REY PAUL Name Value Range Interpretation Code Description Data Ro rce(s) Supporting Document(s) ID Date Data Source [id number] 05/25/2020 08:28:00 AM EDT [facility] Name Value Range Interpretation Code Description Data Ro rce(s) Supporting Document(s) COMPREHENSIVE METABOLIC PANEL [facility] COMPREHENSIVE METABOLIC PANEL Sodium [Moles/volume] in Serum or Plasma 137 mEq/L 134 - 153 [facility] Potassium [Moles/volume] in Serum or Plasma 4.8 mEq/L 3.6 - 5.0 [facility] Chloride [Moles/volume] in Serum or Plasma 94 mEq/L 98 - 107 L [facility] Carbon dioxide, total [Moles/volume] in Serum or Plasma 26 MEQ/L 22 - 30 [facility] Glucose [Mass/volume] in Serum or Plasma 168 MG/DL 65 - 110 H [facility] BUN 87 MG/DL 7 - 21 HH [facility] CALL/ READ BACK FAUZIA PATEL CCU [facility] BY: ASHOK [facility] DATE/TIME 05.25.20 [facility] Creatinine [Mass/volume] in Serum or Plasma 3.4 MG/DL 0.7 - 1.5 H [facility] BUN/CREAT 26 8 - 27 [facility] Protein [Mass/volume] in Serum or Plasma 5.5 G/DL 6.3 - 8.2 L [facility] Albumin [Mass/volume] in Serum or Plasma 3.4 G/DL 3.9 - 5.0 L [facility] Globulin [Mass/volume] in Serum by calculation 2.1 GM/DL 2.4 - 3.2 L [facility] A/G RATIO 1.6 0.8 - 2.0 [facility] Calcium [Mass/volume] in Serum or Plasma 7.5 MG/DL 8.4 - 10.2 L [facility] Bilirubin.total [Mass/volume] in Serum or Plasma <0.7 MG/DL 0.2 - 1.3 [facility] Alkaline phosphatase [Enzymatic activity/volume] in Serum or Plasma 65 U/L 38 - 126 [facility] Aspartate aminotransferase [Enzymatic activity/volume] in Serum or Plasma 16 U/L 5 - 40 [facility] Alanine aminotransferase [Enzymatic activity/volume] in Seru m or Plasma 19 U/L 7 - 56 [facility] Anion gap 3 in Serum or Plasma 17.0 mmol/L 8.0 - 16.0 H [facility] AGE 75 yrs [facility] NON-AA GFR 14 [facility] AFR AMER GFR >60 [facility] Male GFR In terprentation 20-49 [...] >32 mL/min Normal ID Date Data Source [id number] 05/25/2020 07:19:00 AM EDT [facility] Name Value Range Interpretation Code Description Data Ro rce(s) Supporting Document(s) CBC W/AUTOMATED DIFF [facility] COMPLETE BLOOD COUNT Leukocytes [#/volume] in Blood by Automated count 13.2 10^3/uL 4.2 - 11.0 H [facility] Erythrocytes [#/volume] in Blood by Automated count 2.88 10^6/uL 4. 20 - 5.40 L [facility] Hemoglobin [Mass/volume] in Blood 8.8 g/dL 12.0 - 16.0 L [facility] Hematocrit [Volume Fraction] of Blood by Automated count 28.8 % 3 7.0 - 47.0 L [facility] Erythrocyte mean corpuscular volume [Entitic volume] b y Automated count 100.0 fL 81.0 - 101 [facility] Erythrocyte mean corpuscular hemoglobin [Entitic mass] by Automated count 30.6 pg 27.0 - 34.0 [facility] Erythrocyte mean corpuscular hemoglobin concentration [Mass/volume] by Automated count 30.6 g/dL 31.0 - 36.0 L [facility] Erythrocyte distribution width [Ratio] by Automated count 15.9 % 11.5 - 14.5 H [facility] Platelets [#/volume] in Blood by Automated count 266 10^3/uL 150 - 45 0 [facility] Platelet mean volume [Entitic volume] in Blood by Automated count 10.6 fL 7.4 - 10.4 H [facility] Neutrophils/100 leukocytes in Blood by Automated count 91.7 % 37. 0 - 80.0 H [facility] Lymphocytes/100 leukocytes in Blood by Manual count 4.0 % 25.0 - 40.0 L [facility] Monocytes/100 leukocytes in Blood by Automated count 2.5 % 3.0 - 8.0 L [facility] Eosinophils/100 leukocytes in Blood by Automated count 0.0 % 0.0 - 7.0 [facility] Basophils/100 leukocytes in Blood by Automated count 0.1 % 0.0 - 2.5 [facility] %IG 1.7 % 0.0 - 0.0 H [facility] %NRBC 0.3 % 0.0 - 0.0 [facility] Neutrophils [#/volume] in Blood by Automated count 12.13 10^3/uL 2. 00 - 6.90 H [facility] Lymphocytes [#/volume] in Blood by Automated count 0.53 10^3/uL 0.60 - 3.40 L [facility] Monocytes [#/volume] in Blood by Automated count 0.33 10^3/uL 0.00 - 0.90 [facility] Eosinophils [#/volume] in Blood by Automated count 0.00 10^3/uL 0.00 - 0.70 [facility] Basophils [#/volume] in Blood by Automated count 0.01 10^3/uL 0.00 - 0.20 [facility] #IG 0.22 10^3/uL 0.00 - 0.10 H [facility] H ospital #NRBC 0.04 10^3/uL 0.00 - 0.00 H [facility] MANUAL DIFF NOT INDICATED [facility] RBC MORPH NOT INDICATED [facility] spital ID Date Data Source [id number] 05/25/2020 01:53:00 [place] [address] RESPIRATORY CARE REPORT ==== ---------NAME------- NUMBER SEX AGE ADMIT DISC. XRAY# F/C EDWIN DONALD Whitley [id number] F 75 05/22/20 [id number] M8 I/P DATE OF : 1945 M/R# [id number] PH#: [phone] CCU3 LOCATION: [facility] [address] COMPLETE:05/24/20 13 :02 M [address] PHYSICIAN: REY PAUL Name Value Range Interpretation Code Description Data Ro rce(s) Supporting Document(s) ID Date Data Source [id number] 05/24/2020 11:03:00 AM EDT [facility] [address] [place] [address] PHONE: [phone] FAX: [phone] Name .................. : TR DONALD Gutierrez Acct Number.................. : [id number] ROOM. ................. : [address] Number ................... : [id number] Stay type ............. : I/P Discharge Date......... ... : Admit Date ......... : 05/22/20 Admit Phys .................... : REY PAUL Date of ....... : 1945 Family Phys ................... : [employer] Phone .................. : [phone] Age ................................ : 75 Film# .................. .:[id number] Sex ................................. : F Unsigned transcriptions are preliminary reports and do not represent a medical or legal document CT THORAX W/O CONTRAST [address] COMPLETE:05/22/20 15:44 BEM 06101 (REASON FOR CHEST: CHF CT OF THE [...] CT dose: 685.4 mGy[address] [place] [address] PHONE: [phone] FAX: [phone] Name .................. : TR Whitley Acct Number.................. : [id number] ROOM. ................. : CCU3 MR Number ................... : [id number] Stay type ............. : I/P Discharge Date......... ... : Admit Date ......... : 05/22/20 Admit Phys .................... : REY MIR Date of ....... : 1945 Family Phys ................... : CASPER Phone .................. : [phone] Age ................................ : 75 Film# .................. .:[id number] Sex ................................. : F Unsigned transcriptions are preliminary reports and do not represent a medical or legal document CT THORAX W/O CONTRAST [address] COMPLETE:05/22/20 15:44 BEM 05489 (REASON FOR CHEST: CHF Electronically Reviewed and Signed By Robert Gilliland M.D. , 05/24/20 11:03, [facility] Transcribe Initials: DZ , Transcribe Date: 05/23/20 00:49, Dictation Date: Copy for: 002 [facility] Copy for: 710 MED REC Page 2 of 2 Name Value Range Interpretation Code Description Data Ro rce(s) Supporting Document(s) ID Date Data Source [id number] 05/24/2020 09:50:00 [place] [address] PHONE: [phone] FAX: [phone] Name .................. : TR MCKENZIEARA Gutierrez Acct Number.................. : [id number] ROOM. ................. : CCU3 Number ................... : [id number] Stay type ............. : I/P Discharge Date......... ... : Admit Date ......... : 05/22/20 Admit Phys .................... : REY BEVERLY Date of ....... : 1945 Family Phys ................... : CASPER Phone .................. : [phone] Age ................................ : 75 Film# .................. .:[id number] Sex ................................. : F Unsigned transcriptions are preliminary reports and do not represent a medical or legal document CHEST PORTABLE 10334 COMPLETE:05/22/20 17:47 RUBENS 63[address] (REASON FOR CHEST: CHF AP PORTABLE CHEST X-RAY: FINDINGS: Pacer leads in good position. There is pulmonary venous hypertension identified. There is no definitive CHF identified. Compared to 09/22/19, the PVH is however, increased. IMPRESSION: Some increased pulmonary venous hypertension. No other definite abnormalities. Electronically Reviewed and Signed By RASHAD LIRA MD , 05/24/20 09:50, [facility] Transcribe Initials: DZ , Transcribe Date: 05/23/20 01:28, Dictation Date: Copy for: 002 [facility] Copy for: 710 [facility] REC Page 1 of 1 Name Value Range Interpretation Code Description Data Ro rce(s) Supporting Document(s) ID Date Data Source [id number] 05/24/2020 07:31:00 AM EDT [facility] Name Value Range Interpretation Code Description Data Ro rce(s) Supporting Document(s) COMPREHENSIVE METABOLIC PANEL [facility] COMPREHENSIVE METABOLIC PANEL Sodium [Moles/volume] in Serum or Plasma 138 mEq/L 134 - 153 [facility] Potassium [Moles/volume] in Serum or Plasma 5.3 mEq/L 3.6 - 5.0 H [facility] Chloride [Moles/volume] in Serum or Plasma 94 mEq/L 98 - 107 L [facility] Carbon dioxide, total [Moles/volume] in Serum or Plasma 31 MEQ/L 22 - 30 H [facility] Glucose [Mass/volume] in Serum or Plasma 149 MG/DL 65 - 110 H [facility] BUN 70 MG/DL 7 - 21 H [facility] Creatinine [Mass/volume] in Serum or Plasma 3.2 MG/DL 0.7 - 1.5 H [facility] BUN/CREAT 22 8 - 27 [facility] Protein [Mass/volume] in Serum or Plasma 6.1 G/DL 6.3 - 8.2 L [facility] Albumin [Mass/volume] in Serum or Plasma 3.6 G/DL 3.9 - 5.0 L [facility] Globulin [Mass/volume] in Serum by calculation 2.5 GM/DL 2.4 - 3.2 [facility] A/G RATIO 1.4 0.8 - 2.0 [facility] Calcium [Mass/volume] in Serum or Plasma 8.2 MG/DL 8.4 - 10.2 L [facility] Bilirubin.total [Mass/volume] in Serum or Plasma <0.7 MG/DL 0.2 - 1.3 [facility] Alkaline phosphatase [Enzymatic activity/volume] in Serum or Plasma 71 U/L 38 - 126 [facility] Aspartate aminotransferase [Enzymatic activity/volume] in Se rum or Plasma 9 U/L 5 - 40 [facility] Alanine aminotransferase [Enzymatic activity/volume] in Seru m or Plasma 10 U/L 7 - 56 [facility] Anion gap 3 in Serum or Plasma 13.0 mmol/L 8.0 - 16.0 [facility] 75 [facility]min [facility] AFR AMER GFR >60 [facility] Male GFR In terprentation 20-49 [...] >32 mL/min Normal ID Date Data Source [id number] 05/24/2020 06:31:00 AM EDT [facility] Name Value Range Interpretation Code Description Data Ro rce(s) Supporting Document(s) CBC W/AUTOMATED DIFF [facility] COMPLETE BLOOD COUNT Leukocytes [#/volume] in Blood by Automated count 12.0 10^3/uL 4.2 - 11.0 H [facility] Erythrocytes [#/volume] in Blood by Automated count 2.91 10^6/uL 4. 20 - 5.40 L [facility] Hemoglobin [Mass/volume] in Blood 8.8 g/dL 12.0 - 16.0 L [facility] Hematocrit [Volume Fraction] of Blood by Automated count 29.1 % 3 7.0 - 47.0 L [facility] Erythrocyte mean corpuscular volume [Entitic volume] b y Automated count 100.0 fL 81.0 - 101 [facility] Erythrocyte mean corpuscular hemoglobin [Entitic mass] by Automated count 30.2 pg 27.0 - 34.0 [facility] Erythrocyte mean corpuscular hemoglobin concentration [Mass/volume] by Automated count 30.2 g/dL 31.0 - 36.0 L [facility] Erythrocyte distribution width [Ratio] by Automated count 15.9 % 11.5 - 14.5 H [facility] Platelets [#/volume] in Blood by Automated count 265 10^3/uL 150 - 45 0 [facility] Platelet mean volume [Entitic volume] in Blood by Automated count 10.5 fL 7.4 - 10.4 H [facility] Neutrophils/100 leukocytes in Blood by Automated count 92.1 % 37. 0 - 80.0 H [facility] Lymphocytes/100 leukocytes in Blood by Manual count 5.3 % 25.0 - 40.0 L [facility] Monocytes/100 leukocytes in Blood by Automated count 1.7 % 3.0 - 8.0 L [facility] Eosinophils/100 leukocytes in Blood by Automated count 0.0 % 0.0 - 7.0 [facility] Basophils/100 leukocytes in Blood by Automated count 0.1 % 0.0 - 2.5 [facility] %IG 0.8 % 0.0 - 0.0 [facility] %NRBC 0.0 % 0.0 - 0.0 [facility] al Neutrophils [#/volume] in Blood by Automated count 11.04 10^3/uL 2. 00 - 6.90 H [facility] Lymphocytes [#/volume] in Blood by Automated count 0.63 10^3/uL 0.60 - 3.40 [facility] Monocytes [#/volume] in Blood by Automated count 0.20 10^3/uL 0.00 - 0.90 [facility] Eosinophils [#/volume] in Blood by Automated count 0.00 10^3/uL 0.00 - 0.70 [facility] Basophils [#/volume] in Blood by Automated count 0.01 10^3/uL 0.00 - 0.20 [facility] #IG 0.10 10^3/uL 0.00 - 0.10 [facility] H ospital #NRBC 0.00 10^3/uL 0.00 - 0.00 [facility] ospital MANUAL DIFF NOT INDICATED [facility] RBC MORPH NOT INDICATED [facility] spital ID Date Data Source [id number] 05/23/2020 10:39:00 AM EDT [facility] Name Value Range Interpretation Code Description Data Ro rce(s) Supporting Document(s) Iron [Mass/volume] in Serum or Plasma 75 UG/DL 42 - 135 [facility] ID Date Data Source [id number] 05/23/2020 07:21:00 AM EDT [facility] Name Value Range Interpretation Code Description Data Ro rce(s) Supporting Document(s) COMPREHENSIVE METABOLIC PANEL [facility] COMPREHENSIVE METABOLIC PANEL Sodium [Moles/volume] in Serum or Plasma 139 mEq/L 134 - 153 [facility] Potassium [Moles/volume] in Serum or Plasma 5.3 mEq/L 3.6 - 5.0 H [facility] Chloride [Moles/volume] in Serum or Plasma 95 mEq/L 98 - 107 L [facility] Carbon dioxide, total [Moles/volume] in Serum or Plasma 33 MEQ/L 22 - 30 H [facility] Glucose [Mass/volume] in Serum or Plasma 160 MG/DL 65 - 110 H [facility] BUN 47 MG/DL 7 - 21 H [facility] Creatinine [Mass/volume] in Serum or Plasma 2.5 MG/DL 0.7 - 1.5 H [facility] BUN/CREAT 19 8 - 27 [facility] Protein [Mass/volume] in Serum or Plasma 7.0 G/DL 6.3 - 8.2 [facility] Albumin [Mass/volume] in Serum or Plasma 4.0 G/DL 3.9 - 5.0 [facility] Globulin [Mass/volume] in Serum by calculation 3.0 GM/DL 2.4 - 3.2 [facility] A/G RATIO 1.3 0.8 - 2.0 [facility] Calcium [Mass/volume] in Serum or Plasma 8.8 MG/DL 8.4 - 10.2 [facility] Bilirubin.total [Mass/volume] in Serum or Plasma <0.7 MG/DL 0.2 - 1.3 [facility] Alkaline phosphatase [Enzymatic activity/volume] in Serum or Plasma 91 U/L 38 - 126 [facility] Aspartate aminotransferase [Enzymatic activity/volume] in Serum or Plasma 21 U/L 5 - 40 [facility] Alanine aminotransferase [Enzymatic activity/volume] in Seru m or Plasma 15 U/L 7 - 56 [facility] Anion gap 3 in Serum or Plasma 11.0 mmol/L 8.0 - 16.0 [facility] AGE 75 yrs [facility] al NON-AA GFR 20 mL/min [facility] AFR AMER GFR >60 [facility] Male GFR In terprentation 20-49 [...] >32 mL/min Normal ID Date Data Source [id number] 05/23/2020 07:21:00 AM EDT [facility] Name Value Range Interpretation Code Description Data Ro rce(s) Supporting Document(s) CVE PANEL [facility] al LIPID PANEL Cholesterol [Mass/volume] in Serum or Plasma 153 MG/DL 131 - 200 [facility] Deprecated Triglyceride [Mass/volume] in Serum or Plasma 172 MG/DL 3 5 - 160 H [facility] HDL 46 MG/DL 29 - 86 [facility] Cholesterol in LDL [Mass/volume] in Serum or Plasma by Direc t assay 78 mg/dL 65 - 175 [facility] Cholesterol.total/Cholesterol in HDL [Mass Ratio] in Serum o r Plasma 3.3 3.2 - 4.4 [facility] LDL/HDL 1.70 1.47 - 3.22 [facility] ital CVE RISK CHOL/HDL LDL/HDLMEN: 1/2 AVERAGE 3.43 1.00 AVERAGE 4.97 3.55 2X AVERAGE 9.55 6.25 3X AVERAGE 23.99 7.99WOMEN: 1/2 AVERAGE 3.27 1.47 AVERAGE 4.44 3.22 2X AVERAGE 7.05 5.03 3X AVERAGE 11.04 6.14 ID Date Data Source [id number] 05/23/2020 07:21:00 AM EDT [facility] Name Value Range Interpretation Code Description Data Ro rce(s) Supporting Document(s) Hemoglobin A1c/Hemoglobin.total in Blood 5.0 % 4.4 - 6.1 [facility] {A1]{HB] ID Date Data Source [id number] 05/23/2020 07:01:00 AM EDT [facility] Name Value Range Interpretation Code Description Data Ro rce(s) Supporting Document(s) CBC W/AUTOMATED DIFF [facility] COMPLETE BLOOD COUNT Leukocytes [#/volume] in Blood by Automated count 5.5 10^3/uL 4.2 - 1 1.0 [facility] Erythrocytes [#/volume] in Blood by Automated count 3.27 10^6/uL 4. 20 - 5.40 L [facility] Hemoglobin [Mass/volume] in Blood 9.8 g/dL 12.0 - 16.0 L [facility] Hematocrit [Volume Fraction] of Blood by Automated count 32.4 % 3 7.0 - 47.0 L [facility] Erythrocyte mean corpuscular volume [Entitic volume] by Auto mated count 99.1 fL 81.0 - 101 [facility] Erythrocyte mean corpuscular hemoglobin [Entitic mass] by Automated count 30.0 pg 27.0 - 34.0 [facility] Erythrocyte mean corpuscular hemoglobin concentration [Mass/volume] by Automated count 30.2 g/dL 31.0 - 36.0 L [facility] Erythrocyte distribution width [Ratio] by Automated count 15.9 % 11.5 - 14.5 H [facility] Platelets [#/volume] in Blood by Automated count 281 10^3/uL 150 - 45 0 [facility] Platelet mean volume [Entitic volume] in Blood by Automated count 10.5 fL 7.4 - 10.4 H [facility] Neutrophils/100 leukocytes in Blood by Automated count 85.7 % 37. 0 - 80.0 H [facility] Lymphocytes/100 leukocytes in Blood by Manual count 11.4 % 25.0 - 40.0 L [facility] Monocytes/100 leukocytes in Blood by Automated count 1.3 % 3.0 - 8.0 L [facility] Eosinophils/100 leukocytes in Blood by Automated count 0.5 % 0.0 - 7.0 [facility] Basophils/100 leukocytes in Blood by Automated count 0.4 % 0.0 - 2.5 [facility] %IG 0.7 % 0.0 - 0.0 [facility] 0.0 % 0.0 - 0.0 [facility] al Neutrophils [#/volume] in Blood by Automated count 4.75 10^3/uL 2.00 - 6.90 [facility] Lymphocytes [#/volume] in Blood by Automated count 0.63 10^3/uL 0.60 - 3.40 [facility] Monocytes [#/volume] in Blood by Automated count 0.07 10^3/uL 0.00 - 0.90 [facility] Eosinophils [#/volume] in Blood by Automated count 0.03 10^3/uL 0.00 - 0.70 [facility] Basophils [#/volume] in Blood by Automated count 0.02 10^3/uL 0.00 - 0.20 [facility] #IG 0.04 10^3/uL 0.00 - 0.10 [facility] #NRBC 0.00 10^3/uL 0.00 - 0.00 [facility] MANUAL DIFF NOT INDICATED [facility] RBC MORPH NOT INDICATED [facility] spital ID Date Data Source [id number] 05/22/2020 07:58:00 PM EDT [facility] [address] [place] [address] PHONE: [phone] FAX: [phone] Name ..............: TR BENNETT [facility] Number ..........................: [id number] ROOM. ............: CCU3 Number ............................: [id number] Stay type.........: I/P Discharge Date...............: Admit Date .....: 05/22/20 Admit Phys .............................: REY BEVERLY Date of ..: 1945 Family Phys ...........................: CASPER Phone..............: [phone] Age.................................:75 Film# . ..............:[id number] Sex.................................:F Unsigned transcriptions are preliminary reports and do not represent a medical or legal document EKG [id number] COMPLETE:05/22/20 16:02 [place] [id number] Please See Scanned Results. Name Value Range Interpretation Code Description Data [facility] rce(s) Supporting Document(s) ID Date Data Source [id number] 05/22/2020 04:40:00 PM EDT [facility] Name Value Range Interpretation Code Description Data [facility] rce(s) Supporting Document(s) CBC W/AUTOMATED DIFF [facility] COMPLETE BLOOD COUNT Leukocytes [#/volume] in Blood by Automated count 12.8 10^3/uL 4.2 - 11.0 H [facility] Erythrocytes [#/volume] in Blood by Automated count 3.35 10^6/uL 4. 20 - 5.40 L [facility] Hemoglobin [Mass/volume] in Blood 10.2 g/dL 12.0 - 16.0 L [facility] Hematocrit [Volume Fraction] of Blood by Automated count 33.1 % 3 7.0 - 47.0 L [facility] Erythrocyte mean corpuscular volume [Entitic volume] by Auto mated count 98.8 fL 81.0 - 101 [facility] Erythrocyte mean corpuscular hemoglobin [Entitic mass] by Automated count 30.4 pg 27.0 - 34.0 [facility] Erythrocyte mean corpuscular hemoglobin concentration [Mass/volume] by Automated count 30.8 g/dL 31.0 - 36.0 L [facility] Erythrocyte distribution width [Ratio] by Automated count 16.0 % 11.5 - 14.5 H [facility] Platelets [#/volume] in Blood by Automated count 293 10^3/uL 150 - 45 0 [facility] Platelet mean volume [Entitic volume] in Blood by Automated count 9.8 fL 7.4 - 10.4 [facility] Neutrophils/100 leukocytes in Blood by Automated count 79.9 % 37. 0 - 80.0 [facility] Lymphocytes/100 leukocytes in Blood by Manual count 9.1 % 25.0 - 40.0 L [facility] Monocytes/100 leukocytes in Blood by Automated count 9.1 % 3.0 - 8.0 H [facility] Eosinophils/100 leukocytes in Blood by Automated count 0.9 % 0.0 - 7.0 [facility] Basophils/100 leukocytes in Blood by Automated count 0.5 % 0.0 - 2.5 [facility] %IG 0.5 % 0.0 - 0.0 H [facility] al %NRBC 0.0 % 0.0 - 0.0 [facility] al Neutrophils [#/volume] in Blood by Automated count 10.24 10^3/uL 2. 00 - 6.90 H [facility] Lymphocytes [#/volume] in Blood by Automated count 1.16 10^3/uL 0.60 - 3.40 [facility] Monocytes [#/volume] in Blood by Automated count 1.16 10^3/uL 0.00 - 0.90 H [facility] Eosinophils [#/volume] in Blood by Automated count 0.11 10^3/uL 0.00 - 0.70 [facility] Basophils [#/volume] in Blood by Automated count 0.07 10^3/uL 0.00 - 0.20 [facility] #IG 0.06 10^3/uL 0.00 - 0.10 [facility] #NRBC 0.00 10^3/uL 0.00 - 0.00 [facility] MANUAL DIFF SEE BELOW [facility] ital Segmented neutrophils/100 leukocytes in Blood by Manual count 73 % 37 - 80 [facility] %LYMPH 13 % 25 - 40 L [facility] %MONO 14 % 3 - 8 [facility] RBC MORPH NOT INDICATED [facility] sp[facility] ID Date Data Source [id number] 05/22/2020 04:13:00 PM EDT [facility] Name Value Range Interpretation Code Description Data Ro rce(s) Supporting Document(s) BNP >36729 PG/ML 0 - 125 H [facility] ID Date Data Source [id number] 05/22/2020 03:57:00 PM EDT [facility] Name Value Range Interpretation Code Description Data Ro rce(s) Supporting Document(s) Thyrotropin [Units/volume] in Serum or Plasma by Detec tion limit <= 0.05 mIU/L 3.67 uIU/mL 0.47 - 5.01 [facility] ID Date Data Source [id number] 05/22/2020 03:57:00 PM EDT [facility] Name Value Range Interpretation Code Description Data Ro rce(s) Supporting Document(s) Thyroxine (T4) [Mass/volume] in Serum or Plasma 8.7 UG/DL 4.5 - 12.5 [facility] ID Date Data Source [id number] 05/22/2020 03:56:00 PM EDT [facility] Name Value Range Interpretation Code Description Data Ro rce(s) Supporting Document(s) Cobalamin (Vitamin B12) [Mass/volume] in Serum or Plasma 819 PG/ML 232 - 1245 [facility] ID Date Data Source [id number] 05/22/2020 03:39:00 PM EDT [facility] Name Value Range Interpretation Code Description Data Ro rce(s) Supporting Document(s) TROPONIN T 0.15 NG/ML 0.00 - 0.10 [facility] spital CALL/ READ BACK MULUGETA PATEL ICU [facility] BY: TAD [facility] DATE/TIME [id number] 1436 [facility] ital TROPONIN T0.1 ng/ml Recommended as the c linical threshold value forTroponin T. ID Date Data Source [id number] 05/22/2020 03:38:00 PM EDT [facility] Value Range Interpretation Code Description Data Ro rce(s) Supporting Document(s) COMPREHENSIVE METABOLIC PANEL [facility] COMPREHENSIVE METABOLIC PANEL Sodium [Moles/volume] in Serum or Plasma 138 mEq/L 134 - 153 [facility] Potassium [Moles/volume] in Serum or Plasma 4.9 mEq/L 3.6 - 5.0 [facility] Chloride [Moles/volume] in Serum or Plasma 96 mEq/L 98 - 107 L [facility] Carbon dioxide, total [Moles/volume] in Serum or Plasma 31 MEQ/L 22 - 30 H [facility] Glucose [Mass/volume] in Serum or Plasma 99 MG/DL 65 - 110 [facility] BUN 40 MG/DL 7 - 21 H [facility] Creatinine [Mass/volume] in Serum or Plasma 2.3 MG/DL 0.7 - 1.5 H [facility] BUN/CREAT 17 8 - 27 [facility] Protein [Mass/volume] in Serum or Plasma 7.0 G/DL 6.3 - 8.2 [facility] Albumin [Mass/volume] in Serum or Plasma 4.1 G/DL 3.9 - 5.0 [facility] Globulin [Mass/volume] in Serum by calculation 2.9 GM/DL 2.4 - 3.2 [facility] A/G RATIO 1.4 0.8 - 2.0 [facility] Calcium [Mass/volume] in Serum or Plasma 9.1 MG/DL 8.4 - 10.2 [facility] Bilirubin.total [Mass/volume] in Serum or Plasma <0.7 MG/DL 0.2 - 1.3 [facility] Alkaline phosphatase [Enzymatic activity/volume] in Serum or Plasma 92 U/L 38 - 126 [facility] Aspartate aminotransferase [Enzymatic activity/volume] in Serum or Plasma 17 U/L 5 - 40 [facility] Alanine aminotransferase [Enzymatic activity/volume] in Seru m or Plasma 7 U/L 7 - 56 [facility] Anion gap 3 in Serum or Plasma 11.0 mmol/L 8.0 - 16.0 [facility] AGE 75 yrs [facility] al NON-AA GFR 22 mL/min [facility] AFR AMER GFR >60 [facility] Male GFR In terprentation 20-49 [...] >32 mL/min Normal ID Date Data Source [id number] 05/22/2020 03:36:00 PM EDT [facility] Name Value Range Interpretation Code Description Data Ro rce(s) Supporting Document(s) Iron [Mass/volume] in Serum or Plasma 87 UG/DL 42 - 135 [facility] ID Date Data Source [id number] 05/22/2020 03:35:00 PM EDT [facility] Name Value Range Interpretation Code Description Data Ro rce(s) Supporting Document(s) Magnesium [Mass/volume] in Serum or Plasma 1.8 MG/DL 1.7 - 2.2 [facility] ID Date Data Source [id number] 05/22/2020 03:14:00 PM EDT [facility] Name Value Range Interpretation Code Description Data Ro rce(s) Supporting Document(s) Lactate [Moles/volume] in Serum or Plasma 2.2 MMOL/L 0.2 - 2.2 [facility] ID Date Data Source [id number] 05/22/2020 03:00:00 PM EDT [facility] Name Value Range Interpretation Code Description Data Ro rce(s) Supporting Document(s) DORIAN TEST POSITIVE A [facility] booker FiO2 2LNC [facility] SITE RADIAL LT [facility] pH of Arterial blood 7.41 7.34 - 7.44 [facility] Carbon dioxide [Partial pressure] in Blood 46.0 mm/HG 32.0 - 42.0 H [facility] Oxygen [Partial pressure] in Blood 63.8 mm/HG 75.0 - 100 L [facility] Bicarbonate [Moles/volume] in Blood 28.7 meq/L 20.0 - 24.0 H [facility] TCO2 30.1 meq/L 21.0 - 25.0 H [facility] Base excess in Blood by calculation 3.5 -2.0 - 2.0 H [facility] O2 SAT 92.5 % 95.0 - 98.0 L [facility] ital Procedure Social History No Information Vital Signs ID Date Data Source UNK Name Value Range Interpretation Code Description Data Source(s) Body temperature 97.4 [degF] 97.4 [degF] [facility] ([facility]) Body height 63 [in_i] 63 [in_i] [facility] ([facility]) 5'3" Body weight 190.00 [lb_av] 190.00 [lb_av] MEDEN T ([facility]) pt in w/c Body mass index (BMI) [Ratio] 33.7 kg/m2 33.7 k g/m2 [facility] ([facility]) Systolic blood pressure 122 mm[Hg] 122 mm[Hg] M EDENT ([facility]) Diastolic blood pressure 70 mm[Hg] 70 mm[Hg] [facility] ([facility]) Heart rate 97 /min 97 /min [facility] ([facility]) Oxygen saturation in Arterial blood by Pulse oximetry 933 % 933 % [facility] ([facility]) Body height 63 [in_i] 63 [in_i] [facility] ([facility]) 5'3" Body weight 186.00 [lb_av] 186.00 [lb_av] MEDEN T ([facility]) Body mass index (BMI) [Ratio] 32.9 kg/m2 32.9 k g/m2 [facility] ([facility]) [place] body weight 115 [lb_av] 115 [lb_av] MEDEN T ([facility]) Body weight 84.370 kg 84.370 kg [facility] ([facility]) Body surface area Derived from formula 1.87 m2 1.87 m2 [facility] ([facility]) Systolic blood pressure 180 mm[Hg] 180 mm[Hg] M EDENT ([facility]) Body temperature 90.0 [degF] 90.0 [degF] [facility] ([facility]) Body height 63 [in_i] 63 [in_i] [facility] ([facility] 5'3" Body weight 169.00 [lb_av] 169.00 [lb_av] MEDEN T ([facility]) Body weight 76.658 kg 76.658 kg [facility] ([facility]) Body mass index (BMI) [Ratio] 29.9 kg/m2 29.9 k g/m2 [facility] ([facility]) Diastolic blood pressure 80 mm[Hg] 80 mm[Hg] [facility] ([facility]) Heart rate 100 /min 100 /min [facility] ([facility]) Systolic blood pressure 100 mm[Hg] 100 mm[Hg] M EDENT ([facility], ) Diastolic blood pressure 60 mm[Hg] 60 mm[Hg] [facility] ([facility]) Body mass index (BMI) [Ratio] 29.0 kg/m2 29.0 k g/m2 [facility] ([facility]) [place] body weight 115 [lb_av] 115 [lb_av] MEDEN T ([facility]) Body height 63 [in_i] 63 [in_i] [facility] ([facility]) 5'3" Heart rate 60 /min 60 /min [facility] ([facility]) Respiratory rate 14 /min 14 /min [facility] ( [facility]) Body weight 164.00 [lb_av] 164.00 [lb_av] MEDEN T ([facility]) Systolic blood pressure 134 mm[Hg] 134 mm[Hg] M EDENT ([facility]) Body height 63 [in_i] 63 [in_i] [facility] ([facility]) 5'3" Heart rate 97 /min 97 /min [facility] ([facility]) Body temperature 97.4 [degF] [...] k g/m2 [facility] ([facility]) Body mass index [...] [lb_av] MEDEN T ([facility]) Body height 63 [in_i] [...] Silver Peterson MD) ID Date Data Source [id number] 06/28/2020 09:35:48 AM T [facility] Name Value Range Interpretation Code Description Data Source(s) WEIGHT RECORDED 163.00 pounds 163.00 pounds [facility] Height 63 Inches 063 Inches [facility] ID Date Data Source [id number] 06/01/2020 09:57:04 AM EDT [facility] Name Value Range Interpretation Code Description Data Source(s) WEIGHT RECORDED 158.00 pounds 158.00 pounds [facility] Height 63 Inches 063 Inches [facility] Patient Treatment Plan of Care Planned Activity Planned Date Details Description Data Source (s) Folic Acid 1 MG Oral Tablet 04/13/2020 12:00:00 AM EDT [facility] Docusate Sodium 100 MG Oral Capsule 04/13/2020 12:00:00 AM EDT [facility]
[2021-07-04] MEDS ORDERED: MAALOX 30 ML SUSP *UDC PO PRN (23:00)
[2021-07-04] MEDS ORDERED: MOM 30ML SUSPENSION UDC PO PRN (23:00)
[2021-07-04] MEDS ORDERED: GLUCOSE 4GM CHEW TABLET PO PRN (23:05)
[2021-07-04] MEDS ORDERED: DEXTROSE 50% 50 ML SYRINGE IV PRN (23:05)
[2021-07-04] MEDS ORDERED: GLUCAGON INJ 1MG VIAL SC PRN (23:05)
[2021-07-04] MEDS ORDERED: FURO40TA2 PO (23:55)
[2021-07-04] MEDS ORDERED: MAGN400T33 PO (23:55)
[2021-07-05] MEDS ORDERED: HOME MED LIST COMPLETE! XX SCH
[2021-07-05] MEDS ORDERED: ALBUTEROL 90 MCG/ACT 8GM HFA INHALER INH PRN
[2021-07-05] MEDS ORDERED: methylPREDNISolone 125MG 2ML VIAL IV STA (00:05)
[2021-07-05] MEDS ORDERED: ALBUTEROL SULFATE 2.5 MG/0.5 ML INH NEB SOLN NEB PRN (00:05)
--- NOTE | 2021-07-05 00:06 | REPVR ---
PROCEDURE INFORMATION: Exam: CT Chest Without Contrast; Diagnostic Exam date and time: 07/04/2021 10:09 PM Age: 76 years old Clinical indication: Other: F/u; Additional info: F/u on chest mass seen on chest xray / post viral pna? TECHNIQUE: Imaging protocol: Diagnostic computed tomography of the chest without contrast. 3D rendering (Not supervised by radiologist): MIP and/or 3D reconstructed images were created by the technologist. Radiation optimization: All CT scans at this facility use at least one of these dose optimization techniques: automated exposure control; mA and/or kV adjustment per patient size (includes targeted exams where dose is matched to clinical indication); or iterative reconstruction. COMPARISON: CT Chest without contrast 06/09/2021 1:18 AM FINDINGS: Lungs: Multifocal peripheral lung infiltrates are present, new since the prior CT from June 09, 2021 suggesting an inflammatory or infectious process. No discrete masslike lesion. No central endobronchial lesion. Pleural spaces: Miniscule dependent pleural effusions. No pneumothorax. Heart: Atherosclerotic calcifications in the coronary vessels. Multi-chamber cardiac dilatation is noted. No evidence of acute pulmonary edema. Aorta: Ectatic atherosclerotic aorta shows no change . 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 Soft tissues: No asymmetric abnormality of the extrathoracic soft tissues. Other findings: Limited without IV contrast and also limited by motion IMPRESSION: 1. No identifiable lung mass. 2. Multifocal lung infiltrates new since the CT from June 09, 2021 suggesting an atypical pneumonia such as COVID-19 or other viral process 3. Mild dilatation of the thoracic aorta the diaphragmatic hiatus level measuring 3.5 cm Electronically signed by: Yazan Crowley On 07/05/2021 00:05:57 AM
[2021-07-05] MEDS: HumaLOG INSULIN (NovoLOG) PER UNIT SC SCH ×5 (00:30→20:05)
[2021-07-05 00:51] VITALS: BP 156/70
[2021-07-05] MEDS ORDERED: VANCOMYCIN HCL 750 MG, VIAL MATE ADAPTER 1 EACH in NS 250 ML IV ONE ×2 (01:00→02:00)
[2021-07-05] MEDS ORDERED: VANCOMYCIN INTERMITTENT/PULSE DOSING BY CLINICAL PHARMACIST PER DOSING PROTOCOL XX SCH (01:35)
[2021-07-05] MEDS: ACETAMINOPHEN TAB 650MG DOSE (2X325MG) PO PRN (03:06)
[2021-07-05] MEDS ORDERED: VANCOMYCIN HCL 1,000 MG, VIAL MATE ADAPTER 1 EACH in NS 250 ML IV SCH (04:00)
[2021-07-05] MEDS ORDERED: NS 1,000 ML IV SCH (04:05)
[2021-07-05 04:19] VITALS: O2SAT 93
[2021-07-05] MEDS: PIPERACILLIN/TAZOBACTAM SOD 2.25 GM in D5W MINI-BAG PLUS 50 ML IV SCH ×2 (05:36→13:02)
[2021-07-05 06:00] VITALS: BP 166/73
[2021-07-05 06:50] LABS: MEAN CORPUSCULAR HEMOGLOBIN 31.9 pg (27.0-33.0); MEAN CORPUSCULAR HGB CONC 29.6 g/dl (32.0-36.5); MEAN CORPUSCULAR VOLUME 107.6 fl (80.0-96.0); PLATELET COUNT, AUTOMATED 190 10^3/uL (150-450); RED BLOOD COUNT 2.51 10^6/uL (4.00-5.40); WHITE BLOOD COUNT 6.6 10^3/uL (4.0-10.0)
[2021-07-05 06:56] LABS: CALCIUM LEVEL 8.2 MG/DL (8.8-10.2); CREATININE FOR GFR 3.05 MG/DL (0.55-1.30); GLOMERULAR FILTRATION RATE 15.9 (>39); POTASSIUM SERUM 4.8 MEQ/L (3.5-5.1)
[2021-07-05] MEDS: ADVAIR HFA 115/21MCG INHALER INH SCH ×2 (07:39→20:30)
[2021-07-05 07:59] LABS: ATYPICAL LYMPH 1 % (0-5); LYMPHOCYTES 10 % (16-44); METAMYELOCYTES 1 % (0-0); MONOCYTES 2 % (0-5); NEUTROPHILS 86 % (28-66)
[2021-07-05 08:00] LABS: PLATELET ESTIMATE NORMAL (NORMAL)
[2021-07-05] MEDS ORDERED: FLUBLOK(EGG FREE)(QUAD)INFLUENZA VACC 0.5ML SYRINGE 18YRS & OLDER IM ONE (09:00)
[2021-07-05] MEDS ORDERED: PREVNAR 13 VACCINE SYRINGE IM ONE (09:00)
[2021-07-05 09:43] LABS: VANCOMYCIN RANDOM 26.7 UG/ML
--- NOTE | 2021-07-05 10:42 | REP ---
INDICATION: pneumonia. COMPARISON: Multiple the latest 07/04/2021 portable exam TECHNIQUE: PA and lateral FINDINGS: The right lung is unchanged. A new discoid opacity has developed in the left lower lobe. The pleural angles remain sharp. The cardiomediastinal silhouette and pacemaker device are stable. There is no change in appearance of the tip of the central venous catheter. The remains in the superior vena cava. IMPRESSION: There is a new left lower lobe opacity possibly reflecting subsegmental atelectasis or focal zone of pneumonia. Other findings as described above. <Electronically signed by Francisco Sanders > 07/05/21 [id number]
[2021-07-05] MEDS: DOCUSATE SODIUM 100MG CAPSULE PO SCH ×2 (12:56→20:09)
--- NOTE | 2021-07-05 12:56 | CR ---
NEPHROLOGY CONSULTATION DATE: 07/05/2021 REQUESTING CLINICIAN: Angélica Bowen MD. REASON FOR CONSULTATION: To assist in the management of end-stage renal disease and shortness of breath. HISTORY OF PRESENT ILLNESS: Ms. Montanez is a 76-year-old female with known history of advanced chronic lung disease on home oxygen, history of hypertension, type-2 diabetes, coronary artery disease, congestive heart failure and end-stage renal disease. She recently started dialysis when she was admitted with COVID pneumonia and developed worsening renal function. Even at baseline she has known history of early stage 5 of chronic kidney disease. She is currently dialysis dependent and presented to the Emergency Room yesterday with shortness of breath. She was noticed to have bilateral infiltrates on her CT scan of chest. She was admitted last evening and I was informed this morning by the Hospitalist Service. Patient is due for dialysis today. PAST MEDICAL HISTORY: Significant for: 1. History of COPD with chronic smoking. 2. Recent history of COVID pneumonia. 3. Chronic hypercapnic respiratory failure on home oxygen. 4. Hypertension. 5. Diabetes. 6. Coronary artery disease. 7. History of congestive heart failure. 8. History of end-stage renal disease. 9. History of secondary hyperparathyroidism. 10. Anemia. 11. Obstructive sleep apnea. 12. Gastroesophageal reflux disease. PAST SURGICAL HISTORY: Significant for: 1. WATCHMAN device for left atrial appendage closure. 2. Pacemaker placement. 3. Hysterectomy. 4. Cholecystectomy. 5. Appendectomy. 6. Femoral-popliteal bypass. 7. Permacath placement for dialysis. FAMILY HISTORY: Unremarkable and noncontributory. PERSONAL AND SOCIAL HISTORY: Patient is a former smoker who quit smoking in March of last year. She occasionally drinks alcohol and denies any drug use. She lives with her daughter. ALLERGIES: 1. CODEINE. 2. PHENYTOIN. 3. GABAPENTIN. 4. OXYCODONE. MEDICATIONS: Her home medications include: 1. Albuterol nebulizer four times a day. 2. Allopurinol 100 mg daily. 3. Amiodarone 200 mg daily. 4. Atorvastatin 20 mg daily. 5. Calcitriol 0.25 mcg daily. 6. Calcium carbonate 600 mg twice a day. 7. Vitamin D 1000 units daily. 8. Ferrous sulfate 325 mg twice a day. 9. Breo Ellipta inhaler 1 puff daily. 10. Folic acid 1 mg daily. 11. Furosemide 80 mg daily. 12. Glipizide 2.5 mg daily. 13. Magnesium oxide 400 mg daily. 14. Pantoprazole 40 mg daily. 15. Raloxifene 60 mg daily. 16. Januvia 50 mg daily. 17. Diltiazem 120 mg daily. REVIEW OF SYSTEMS: Patient reports worsening shortness of breath due to which she came to the Emergency Room yesterday. She did have a low grade fever. Ears, nose and throat: Unremarkable. Cardiovascular system: Significant for shortness of breath and increased lower extremity edema. Respiratory system: She has chronic oxygen use. Negative for recent COVID pneumonia. She was found to have bilateral pulmonary infiltrates on her chest CT scan. She denies any hemoptysis or pleuritic type chest pain. GI system: Significant for gastroesophageal reflux disease. She denies any vomiting or diarrhea at present. system: Negative for dysuria or hematuria. Endocrine system: Significant for type-2 diabetes and secondary hyperparathyroidism. Musculoskeletal system: Significant for chronic degenerative arthritis and history of gout. Hematological system: Significant for anemia of chronic kidney disease. Neurological system: Negative for seizures or stroke. PHYSICAL EXAMINATION: PHYSICAL EXAMINATION: Temperature 99.5 degrees Fahrenheit, heart rate 100 per minute and respiratory rate 18 per minute. Blood pressure 166/72 mmHg and oxygen saturation 93% on 4 liters oxygen. Head: Atraumatic. Neck: Supple and JVD is difficult to be assessed and seems to be elevated. Heart sounds: Tachycardic. Lungs: With diminished breath sounds and bibasilar rales. Abdomen: Soft and nontender and bowel sounds are present. Extremities: Without any cyanosis or clubbing. She does have some lower extremity edema bilaterally. Neurologic: She is awake, alert and oriented times 3. LABORATORY DATA: Today's labs show: WBC count 6.6, hemoglobin 8, hematocrit 27 and platelets 190. Sodium 139, potassium 4.8, CO2 34, BUN 36, creatinine 3.05. BNP was 8395. Random vancomycin level today is 26.7. PROBLEMS AND PLAN: 1. End-stage renal disease: Patient is regularly dialyzed on a Friday, and Friday schedule. Today is her regular day and she is already being dialyzed. 2. Congestive heart failure: Her volume status is somewhat decompensated. She also received some I.V. fluid in the Emergency Room. We are trying to remove about 2 liters of fluid this morning with dialysis and she is tolerating it well so far. 3. Pneumonia and shortness of breath: She recently had COVID pneumonia. Now she has bilateral pulmonary infiltrates. She is being treated with vancomycin and Zosyn. She is currently afebrile. Her vancomycin dose can be given after dialysis. 4. Atrial fibrillation: She has been on amiodarone and diltiazem. Ventricular rate is moderately well controlled. 5. Anemia: She has chronic anemia and we will add iron studies to her lab work. At present no urgent intervention is needed. Thank you for involving me in the care of Ms. Montanez. I will follow her along with you.
[2021-07-05] MEDS: allopurinoL 100 MG TAB PO SCH (12:57)
[2021-07-05] MEDS: AMIODARONE 200 MG TAB (PACERONE) PO SCH (12:57)
[2021-07-05] MEDS: PANTOPRAZOLE 40MG TAB (PROTONIX) PO SCH (12:57)
[2021-07-05] MEDS: CALCITRIOL 0.25 MCG CAP (S0169) PO SCH (12:57)
[2021-07-05] MEDS: FOLIC ACID 1 MG TAB PO SCH (12:57)
[2021-07-05] MEDS: FUROSEMIDE 80 MG TAB PO SCH (12:58)
[2021-07-05] MEDS: ATORVASTATIN 20 MG TAB PO SCH (12:58)
[2021-07-05] MEDS: HEPARIN SOD (PORCINE) 5000UNITS/ML 1ML VIAL/SYRINGE SC SCH ×2 (12:59→20:10)
[2021-07-05 14:00] VITALS: BP 103/59
--- NOTE | 2021-07-05 14:05 | IPNPDOC ---
Text Note Date of Service The patient was seen on 07/05/21. NOTE SUBJECTIVE: -No acute events. In HD this morning General: NAD, elderly HEENT: PERRLA, EOMI, moist mucous membranes, no lymphadenopathy, neck is supple Cardiovascular: regular rate and rhythm, no murmurs or gallops noted, capillary refill <2 seconds Pulmonary: Diminished bilaterally, has scattered bibasilar rales present Abdomen: obese, soft, nontender to palpation, positive bowel sounds Extremities: 2+ pitting edema noted to knees bilaterally, no cyanosis, warm Psych: alert and oriented x 4 Labs: WBC 6.6 Hgb 8 Platelets 190 na 139 K 4.8 Cr 3.05 Imaging: Chest x-ray 07/04/21: IMPRESSION: Patchy infiltrates right right lower left perihilar bilateral lung. Findings may indicate multifocal pneumonitis. Changes related to fluid overload and atypical pulmonary edema to be considered as well. Apparent truncation of the left mainstem bronchus mass. Should further aleena luation desired correlation with CT suggested. Chest CT 07/04/21: IMPRESSION: No identifiable lung mass. Multifocal lung infiltrates new since the CT from June 09, 2021 suggesting an atypical pneu monia such as COVID-19 or other viral process Mild dilatation of the thoracic aorta the diaphragmatic hiatus level measuring 3.5 cm Assessment: 76 year old W who presented to the Emergency department for worsening shortness of breath that started one day prior after hemodialysis, and found to have multifocal lung infiltrates on imaging and met sepsis criteria i/s/o recent covid-19 PNA and was admitted for presumed pneumonia, copd exacerbation, and potential sepsis. Plan: Suspected bacterial pneumonia: I actually have low suspicion for bacterial PNA. Her XR shows multifocal infiltrates in a host that just had covid-19 PNA, she has no leukocytosis, procalcitonin is negative, MRSA was negative, she is afebrile and proBNP was elevated suggesting more likely CHF exacerbation. -Multifocal lung infiltrate seen on imaging suggestive likely of viral origin vs. unlikely atypical pneumonia -Mycoplasma, chlamydia, legionella, strep pneumonia, respiratory panel pending -MRSA PCR negative -will dc antibiotics at this time Acute on chronic copd exacerbation -clinically diagnosed by worsening shortness of breath, increased sputum production, and wheezing on initial examination -saturating well on 3L O2, patient is on 3L at home -will continue Prednisone po 40mg x 4 days -albuterol nebulizer [id number] prn CHF exacerbation: -volume optimization per HD -continue home lasix -elevated proBNP, with 2+ pitting edema bilaterally of LE, this is chronic -Echocardiogram 06/11/21: poor quality ESRD -Nephrology consult placed, had HD this AM Chronic hypercapnic respiratory failure -ABG: pCO2 56, pH:7.3 -clinically without concern of worsening hypercarbia Hypertension -continue home medications Type 2 Diabetes Mellitus -sliding scale insulin with hypoglycemic protocol -FSBG AC/HS Coronary artery disease -EKG exhibited AV dual paced rhythm -continue atorvastatin History of secondary hyperparathyroidism -continue calcitriol History of anemia -Hemoglobin is 8. Monitor GERD -continue pantoprazole Obesity -BMI 32.9 DVT prophylaxis: -continue heparin VS,Fishbone, I+O VS, Fishbone, I+O Laboratory Tests 07/04/21 20:11 07/05/21 05:57 Vital Signs Date Time Temp Pulse Resp B/P (MAP) Pulse Ox O2 Delivery O2 Flow Rate FiO2 07/05/21 12:56 101 135/71 07/05/21 09:00 3.0 07/05/21 07:39 18 07/05/21 06:00 99.5 93 Nasal Cannula I&O- Last 24 Hours up to 6 AM 07/05/21 06:00 Intake Total 835 ml Balance 835 ml CARITO WEBB MD Jul 05, 2021 14:04
--- NOTE | 2021-07-05 20:12 | ECGEPIP ---
[facility] - ED Test Date: 2021-07-04 Pat Name: DONALD ARMANDO Department: Room: [place] [address] Gender: Female Manager Epic: RENÉE : [id number] Requested By: MARYELLEN STRANGE Order Number: [id number] Reading MD: Delilha Banks Measurements Intervals [place] Rate: 102 P: 0 MI: 144 QRS: 253 QRSD: 140 T: 65 QT: 376 QTc: 490 Interpretive Statements AV dual-paced rhythm increased rate 06/13/21 Electronically Signed on 07-05-2021 20:11:50 EDT by Delilah Banks
[2021-07-05 21:00] VITALS: BP 133/60
[2021-07-05 22:00] VITALS: O2SAT 91
--- NOTE | 2021-07-05 22:18 | IPNPDOC ---
Text Note Date of Service The patient was seen on 07/05/21. NOTE Time of service 810pm The patient would like to be DNR/DNI and verbalized understanding the implications of her code status, mainly that she would pass away if she didn't have CPR or was not intubated. She signed a MOLST form. VS,Fishbone, I+O VS, Fishbone, I+O Laboratory Tests 07/05/21 05:57 Vital Signs Date Time Temp Pulse Resp B/P (MAP) Pulse Ox O2 Delivery O2 Flow Rate FiO2 07/05/21 14:00 99.2 115 19 103/59 (74) 88 Nasal Cannula 3.0 I&O- Last 24 Hours up to 6 AM 07/05/21 06:00 Intake Total 835 ml Balance 835 ml COLETTE BUENROSTRO MD Jul 05, 2021 22:18
[2021-07-06] MEDS: ACETAMINOPHEN TAB 650MG DOSE (2X325MG) PO PRN ×3 (01:23→20:06)
[2021-07-06 06:17] VITALS: BP 133/74
[2021-07-06 06:57] LABS: BASO % 0.1 % (0.0-1.0); HEMATOCRIT 27.8 % (36.0-47.0); HEMOGLOBIN 8.3 g/dl (12.0-15.5); LYMPH # 0.9 10^3/uL (1.5-5.0); MEAN CORPUSCULAR HGB CONC 29.9 g/dl (32.0-36.5); MEAN CORPUSCULAR VOLUME 107.3 fl (80.0-96.0); MONO # 0.9 10^3/uL (0.0-0.8); MONO % 11.6 % (2.0-8.0); NEUTROPHILS # 5.7 10^3/uL (1.5-8.5); NEUTROPHILS % 74.5 % (36.0-66.0); PLATELET COUNT, AUTOMATED 237 10^3/uL (150-450); RED BLOOD COUNT 2.59 10^6/uL (4.00-5.40); WHITE BLOOD COUNT 7.6 10^3/uL (4.0-10.0)
[2021-07-06] MEDS: ADVAIR HFA 115/21MCG INHALER INH SCH ×2 (07:16→19:09)
[2021-07-06 07:34] LABS: CALCIUM LEVEL 8.9 MG/DL (8.8-10.2); CREATININE FOR GFR 2.76 MG/DL (0.55-1.30); GLOMERULAR FILTRATION RATE 17.9 (>39); POTASSIUM SERUM 4.1 MEQ/L (3.5-5.1)
[2021-07-06] MEDS: PANTOPRAZOLE 40MG TAB (PROTONIX) PO SCH (07:52)
[2021-07-06] MEDS: DOCUSATE SODIUM 100MG CAPSULE PO SCH ×2 (07:52→20:05)
[2021-07-06] MEDS: predniSONE 20 MG TAB PO SCH (07:52)
[2021-07-06] MEDS: CALCITRIOL 0.25 MCG CAP (S0169) PO SCH (07:52)
[2021-07-06] MEDS: allopurinoL 100 MG TAB PO SCH (07:53)
[2021-07-06] MEDS: FOLIC ACID 1 MG TAB PO SCH (07:53)
[2021-07-06] MEDS: AMIODARONE 200 MG TAB (PACERONE) PO SCH (07:53)
[2021-07-06] MEDS: FUROSEMIDE 80 MG TAB PO SCH (07:53)
[2021-07-06] MEDS: ATORVASTATIN 20 MG TAB PO SCH (07:53)
[2021-07-06] MEDS: HEPARIN SOD (PORCINE) 5000UNITS/ML 1ML VIAL/SYRINGE SC SCH ×2 (07:54→20:06)
[2021-07-06] MEDS: HumaLOG INSULIN (NovoLOG) PER UNIT SC SCH ×4 (07:54→20:01)
--- NOTE | 2021-07-06 12:32 | IPN ---
PROGRESS NOTE DATE: 07/06/2021 SUBJECTIVE: Mrs. Montanez is seen this morning on her bedside. She was admitted with shortness of breath. She has a known history of chronic lung disease with home oxygen and superimposed congestive heart failure. She also tested positive for RSV. She was dialyzed yesterday and we were able to remove about 1.5 liters of fluid. She is still short of breath and edematous. She has no fever or chills at present and denies any nausea or vomiting. OBJECTIVE: VITAL SIGNS: Temperature is 98.4 degrees Fahrenheit, heart rate is 105 per minute and respiratory rate is 18 per minute, blood pressure is 133/74 mmHg and oxygen saturation 91% on 3 liters of oxygen. HEAD: Atraumatic. NECK: Supple, JVD is elevated. HEART: Heart sounds are tachycardic. LUNGS: Diminished breath sounds and bilateral rales. ABDOMEN: Soft and nontender. Bowel sounds are normal. EXTREMITIES: Without any cyanosis or clubbing. Lower extremity edema is 2+ at least bilaterally. NEUROLOGIC: She is at her baseline mentation without any focal deficit. LABORATORY DATA: Today's labs showed a WBC count of 7.6, hemoglobin 8.3 and hematocrit 27.8, platelets are 237,000. Sodium is 137, potassium is 4.1, BUN 31 and creatinine 2.76. PROBLEMS: 1. Endstage renal disease. Patient was dialyzed yesterday and her regular next dialysis will be scheduled for tomorrow. 2. Congestive heart failure and shortness of breath. Her volume status is still decompensated and will try to ultrafiltrate her today and remove another 2-3 liters of fluid as tolerated. 3. Anemia, her anemia is chronic and she also has iron deficiency. Will start intravenous Venofer 100 mg with each dialysis for 10 doses. 4. Other issues are being addressed by the Hospitalist Service.
[2021-07-06 16:00] VITALS: BP 133/71
[2021-07-06 17:24] LABS: MYCOPLASMA PNEUMONIAE IgG 131 U/mL (0-99); MYCOPLASMA PNEUMONIAE IgM <770 U/mL (0-769)
--- NOTE | 2021-07-06 18:43 | IPNPDOC ---
Text Note Date of Service The patient was seen on 07/06/21. NOTE SUBJECTIVE: -No acute events. -Overnight, decided to become DNR/DNI after requesting conversation with MD to express her wishes at this time. General: NAD, elderly HEENT: PERRLA, EOMI, moist mucous membranes, no lymphadenopathy, neck is supple Cardiovascular: regular rate and rhythm, no murmurs or gallops noted, capillary refill <2 seconds Pulmonary: Diminished bilaterally, has scattered bibasilar rales present Abdomen: obese, soft, nontender to palpation, positive bowel sounds Extremities: 2+ pitting edema noted to knees bilaterally, no cyanosis, warm Psych: alert and oriented x 4 Labs: Reviewed Imaging: Chest x-ray 07/04/21: IMPRESSION: Patchy infiltrates right right lower left perihilar bilateral lung. Findings may indicate multifocal pneumonitis. Changes related to fluid overload and atypical pulmonary edema to be considered as well. Apparent truncation of the left mainstem bronchus mass. Should further evaluation desired correlation with CT suggested. Chest CT 07/04/21: IMPRESSION: No identifiable lung mass. Multifocal lung infiltrates new since the CT from June 09, 2021 suggesting an atypical pneumonia such as COVID-19 or other viral process Mild dilatation of the thoracic aorta the diaphragmatic hiatus level measuring 3.5 cm Assessment: 76 year old W who presented to the Emergency department for worsening shortness of breath that started one day prior after hemodialysis, and found to have multifocal lung infiltrates on imaging and met sepsis criteria i/s/o recent covid-19 PNA and was admitted for presumed pneumonia, copd exacerbation, and potential sepsis. Plan: Initial suspicion of bacterial pneumonia: I actually have low suspicion for bacterial PNA. Her XR shows multifocal infiltrates in a host that just had covid-19 PNA, she has no leukocytosis, procalcitonin is negative, MRSA was negative, she is afebrile and proBNP was elevated suggesting more likely CHF exacerbation. -Multifocal lung infiltrate seen on imaging suggestive likely of viral origin vs. unlikely atypical pneumonia -Mycoplasma, chlamydia, legionella, strep pneumonia, respiratory panel pending -MRSA PCR negative -Dc'd antibiotics on 07/05 Acute on chronic copd exacerbation -clinically diagnosed by worsening shortness of breath, increased sputum pro duction, and wheezing on initial examination -saturating well on 3L O2, patient is on 3L at home -will continue Prednisone po, day 3 of 5 -albuterol nebulizer [id number] prn CHF exacerbation: -volume optimization per HD -continue home lasix -elevated proBNP, with 2+ pitting edema bilaterally of LE, this is chronic ESRD -Nephrology consult placed, having HD while inpatient Chronic hypercapnic respiratory failure -ABG: pCO2 56, pH:7.3 -clinically without concern of worsening hypercarbia Hypertension -continue home medications Type 2 Diabetes Mellitus -sliding scale insulin with hypoglycemic protocol -FSBG AC/HS Coronary artery disease -EKG exhibited AV dual paced rhythm -continue atorvastatin History of secondary hyperparathyroidism -continue calcitriol History of anemia -Hemoglobin is 8. Monitor GERD -continue pantoprazole Obesity -BMI 32.9 DVT prophylaxis: -continue heparin Discharge plan: pending PT/OT eval VS,Fishbone, I+O VS, Fishbone, I+O Laboratory Tests 07/06/21 06:26 Vital Signs Date Time Temp Pulse Resp B/P (MAP) Pulse Ox O2 Delivery O2 Flow Rate FiO2 07/06/21 07:53 105 133/74 07/06/21 06:17 98.4 18 91 Nasal Cannula 3.0 I&O- Last 24 Hours up to 6 AM 07/06/21 05:59 Intake Total 1280 ml Output Total 1850 ml Balance -570 ml CARITO WEBB MD Jul 06, 2021 10:13
[2021-07-06] MEDS: ALBUTEROL SULFATE 2.5 MG/0.5 ML INH NEB SOLN NEB PRN (19:08)
[2021-07-06 22:00] VITALS: BP 115/59
[2021-07-07 01:06] VITALS: O2SAT 92
[2021-07-07 06:00] VITALS: BP 132/68
[2021-07-07] MEDS: DOCUSATE SODIUM 100MG CAPSULE PO SCH ×2 (06:12→20:09)
[2021-07-07] MEDS: allopurinoL 100 MG TAB PO SCH (06:12)
[2021-07-07] MEDS: ATORVASTATIN 20 MG TAB PO SCH (06:12)
[2021-07-07] MEDS: PANTOPRAZOLE 40MG TAB (PROTONIX) PO SCH (06:12)
[2021-07-07] MEDS: HEPARIN SOD (PORCINE) 5000UNITS/ML 1ML VIAL/SYRINGE SC SCH ×2 (06:12→20:10)
[2021-07-07] MEDS: CALCITRIOL 0.25 MCG CAP (S0169) PO SCH (06:12)
[2021-07-07] MEDS: predniSONE 20 MG TAB PO SCH (06:12)
[2021-07-07] MEDS: FUROSEMIDE 80 MG TAB PO SCH (06:13)
[2021-07-07] MEDS: AMIODARONE 200 MG TAB (PACERONE) PO SCH (06:13)
[2021-07-07] MEDS: FOLIC ACID 1 MG TAB PO SCH (06:13)
[2021-07-07 07:14] LABS: BASO # 0.1 10^3/uL (0.0-0.2); BASO % 0.6 % (0.0-1.0); HEMATOCRIT 27.2 % (36.0-47.0); HEMOGLOBIN 8.2 g/dl (12.0-15.5); LYMPH # 1.1 10^3/uL (1.5-5.0); LYMPH % 12.9 % (24.0-44.0); MEAN CORPUSCULAR HEMOGLOBIN 32.2 pg (27.0-33.0); MEAN CORPUSCULAR HGB CONC 30.1 g/dl (32.0-36.5); MEAN CORPUSCULAR VOLUME 106.7 fl (80.0-96.0); MONO % 11.6 % (2.0-8.0); NEUTROPHILS # 5.8 10^3/uL (1.5-8.5); NEUTROPHILS % 69.9 % (36.0-66.0); PLATELET COUNT, AUTOMATED 269 10^3/uL (150-450); RED BLOOD COUNT 2.55 10^6/uL (4.00-5.40); WHITE BLOOD COUNT 8.3 10^3/uL (4.0-10.0)
[2021-07-07] MEDS: HumaLOG INSULIN (NovoLOG) PER UNIT SC SCH ×4 (07:18→20:05)
[2021-07-07 07:33] LABS: CALCIUM LEVEL 8.8 MG/DL (8.8-10.2); CREATININE FOR GFR 4.04 MG/DL (0.55-1.30); GLOMERULAR FILTRATION RATE 11.5 (>39); POTASSIUM SERUM 4.4 MEQ/L (3.5-5.1)
[2021-07-07] MEDS ORDERED: SODIUM CHLORIDE 0.9% 1000ML IV PRN (08:45)
[2021-07-07] MEDS: ADVAIR HFA 115/21MCG INHALER INH SCH ×2 (09:23→19:37)
[2021-07-07] MEDS: IRON SUCROSE 100MG 5ML VIAL (J1756 PER 1MG) IV SCH (09:44)
[2021-07-07] MEDS ORDERED: PRED20TA PO (10:20)
--- NOTE | 2021-07-07 11:40 | IPN ---
NEPHROLOGY PROGRESS NOTE DATE: 07/07/2021 SUBJECTIVE: Ms. Montanez is seen and examined this morning in the Hemodialysis Unit receiving a treatment. She reports an ongoing productive cough and shortness of breath. She was dialyzed the last 2 days as well and goal fluid removal today is 2-2.5 liters has tolerated by hemodynamics. She is now DNR, DNI I note. PHYSICAL EXAMINATION: Vital signs: Temperature 98.3, pulse 81, respiratory rate 18, blood pressure 132/68, saturating 94% on 3 liters nasal cannula. Intake yesterday was 920. Dialysis yesterday removed 2.5 liters. Weight on the bed scale today is 86.5 kg. General: Patient is seen in the Hemodialysis Unit receiving a treatment, elderly female awake, alert and oriented times 3 in no apparent distress. HEENT: Extraocular muscles are intact. Tongue is moist. Nasal cannula is in place. Neck: Jugular veins are mildly elevated. Heart sounds: Regular S1 and S2. There is 2+ edema in the lower extremities. Lungs: Diminished breath sound with occasional expiratory wheeze and bibasilar rale. There is no accessory muscle use. There is no tachypneic. She is comfortable on nasal cannula. Abdomen: Soft, obese and nontender. Chest: There is a tunneled dialysis catheter in the right chest wall currently in use. Extremities: 2+ pitting edema in the legs. Neurologic: She is oriented times 3, interactive, conversational. Psychiatric: Appropriate mood and affect. LABORATORY DATA: White count 8.3, hemoglobin 8.2, platelets 269. Sodium 138, potassium 4.4, bicarbonate 29, glucose 132. INPATIENT MEDICATIONS: Reviewed by myself and no changes are noted over the past 24 hours. PROBLEMS/PLAN: 1. End-stage renal disease: On hemodialysis on a Friday, , Friday schedule. Patient is in fluid overload. She is short of breath. She was dialyzed the last 2 days in a row; 2.5 liters were removed on July 06, 1.5 liters was removed on July 05 and we are trying to remove another 2 liters today to improve her clinical volume status. 2. Decompensated congestive heart failure: Echocardiogram June 10 shows diastolic dysfunction. Patient is in fluid overload. She was dialyzed the last 2 days and we are dialyzing her again today to remove further volume. 3. Acute on chronic hypoxic hypercapnic respiratory failure secondary to fluid overload and also patient with underlying COPD: She is on prednisone and bronchodilators managed by the primary service and is currently requiring 3 liters of oxygen via nasal cannula and we are working to remove fluid with 3 dialysis treatments in a row. 4. Chronic anemia in the setting of end-stage renal disease and iron deficiency: She is on Venofer with dialysis. Hemoglobin on the latest labs is 8.2. Transferrin saturation was only 10%. 5. Hypertension: Patient is tolerating fluid removal with hemodialysis without any hypotension. She is presently on diltiazem and I made no change to the anti-hypertensive regimen. CODE STATUS: DNR, DNI.
[2021-07-07 14:00] VITALS: BP 91/65
[2021-07-07] MEDS: ALBUTEROL SULFATE 2.5 MG/0.5 ML INH NEB SOLN NEB PRN (19:37)
[2021-07-07] MEDS: ACETAMINOPHEN TAB 650MG DOSE (2X325MG) PO PRN (20:09)
[2021-07-07 22:00] VITALS: BP 133/84
[2021-07-07] MEDS: guaiFENesin 200 MG TAB PO PRN (22:05)
[2021-07-08 06:00] VITALS: BP 115/58
[2021-07-08 06:57] LABS: HEMATOCRIT 28.7 % (36.0-47.0); HEMOGLOBIN 8.6 g/dl (12.0-15.5); MEAN CORPUSCULAR HEMOGLOBIN 32.1 pg (27.0-33.0); MEAN CORPUSCULAR VOLUME 107.1 fl (80.0-96.0); PLATELET COUNT, AUTOMATED 290 10^3/uL (150-450); RED BLOOD COUNT 2.68 10^6/uL (4.00-5.40); WHITE BLOOD COUNT 11.6 10^3/uL (4.0-10.0)
[2021-07-08 07:28] LABS: CALCIUM LEVEL 9.6 MG/DL (8.8-10.2); CREATININE FOR GFR 3.26 MG/DL (0.55-1.30); GLOMERULAR FILTRATION RATE 14.8 (>39); POTASSIUM SERUM 4.5 MEQ/L (3.5-5.1)
[2021-07-08] MEDS: HumaLOG INSULIN (NovoLOG) PER UNIT SC SCH ×4 (07:30→20:24)
[2021-07-08] MEDS: ADVAIR HFA 115/21MCG INHALER INH SCH ×2 (07:39→20:00)
[2021-07-08 07:59] LABS: ATYPICAL LYMPH 2 % (0-5); BASOPHILS 1 % (0-1); LYMPHOCYTES 17 % (16-44); METAMYELOCYTES 4 % (0-0); MONOCYTES 10 % (0-5); MYELOCYTES 5 % (0-0); NEUTROPHILS 61 % (28-66)
[2021-07-08 08:01] LABS: PLATELET ESTIMATE NORMAL (NORMAL)
[2021-07-08 08:02] LABS: ANISOCYTOSIS 2+
--- NOTE | 2021-07-08 08:11 | DS.PDOC ---
Discharge Summary General Date of Admission Jul 04, 2021 at 21:55 Date of Discharge 07/08/2021 Attending Physician: CARITO WEBB MD Discharge Summary PROCEDURES PERFORMED DURING STAY: None ADMITTING DIAGNOSES: CHF exacerbation Suspicion of CAP Recent covid-19 PNA DISCHARGE DIAGNOSES: Obesity Tobacco dependence Mild COPD exacerbation Recent COVID pneumonia, with persistent radiologic findings Chronic hypoxemic respiratory failure Hypertension Type 2 Diabetes Mellitus Coronary artery disease ESRD on HD History of secondary hyperparathyroidism History of anemia GERD CATHRYN COMPLICATIONS/CHIEF COMPLAINT: Dyspnea. HISTORY OF PRESENT ILLNESS: 76 year old W who presented to the Emergency department for worsening shortness of breath that started after hemodialysis one day prior. She reported that she has felt consistently short of breath and weak since being discharged from [facility] on 06/20/21 for COVID pneumonia. She decided to call an ambulance because she could not catch her breath and "felt like she had no energy" with subjective fevers, PND and orthopnea as well as chronic swelling in her ankles. She denied chest pain or palpitations. HOSPITAL COURSE: In the ED she was found to have multifocal lung infiltrates on imaging and met sepsis criteria and was initially treated as having CAP. She however had no leukocytosis, procalcitonin was negative and she was at her home supplemental oxygen the entire time and my suspicion of actual bacterial pneumonia is low, so I stopped all antibiotics and instead focused on volume optimization for a CHF exacerbation with nephrology onboard on HD and she did well with improvement in symptoms, continued to be afebrile and on her baseline supplemental O2. She worked with PT/OT and was deemed safe for home discharge with home services. DISCHARGE MEDICATIONS: Please see below. ALLERGIES: Please see below. PHYSICAL EXAMINATION ON DISCHARGE: VITAL SIGNS: Please see below. General: NAD, elderly HEENT: PERRLA, EOMI, moist mucous membranes, no lymphadenopathy, neck is supple Cardiovascular: regular rate and rhythm, no murmurs or gallops noted, capillary refill <2 seconds Pulmonary: Diminished bilaterally, has scattered crackles at the bases bilaterall, on 3L NC Abdomen: obese, soft, nontender to palpation, positive bowel sounds Extremities: 2+ pitting edema noted to knees bilaterally, no cyanosis, warm Psych: alert and oriented x 4 LABORATORY DATA: Please see below. IMAGING: Chest x-ray 07/04/21: IMPRESSION: Patchy infiltrates right right lower left perihilar bilateral lung. Findings may indicate multifocal pneumonitis. Changes related to fluid overload and atypical pulmonary edema to be considered as well. Apparent truncation of the left mainstem bronchus mass. Should further evaluation desired correlation with CT suggested. Chest CT 07/04/21: IMPRESSION: No identifiable lung mass. Multifocal lung infiltrates new since the CT from June 09, 2021 suggesting an atypical pneumonia such as COVID-19 or other viral process Mild dilatation of the thoracic aorta the diaphragmatic hiatus level measuring 3.5 cm CXR: 07/05 The right lung is unchanged. A new discoid opacity has developed in the left lower lobe. The pleural angles remain sharp. The cardiomediastinal silhouette and pacemaker device are stable. There is no change in appearance of the tip of the central venous catheter. The remains in the superior vena cava. IMPRESSION: There is a new left lower lobe opacity possibly reflecting subsegmental atelectasis or focal zone of pneumonia. Other findings as described above. CT chest: 07/04: Lungs: Multifocal peripheral lung infiltrates are present, new since the prior CT from June 09, 2021 suggesting an inflammatory or infectious process. No discrete masslike lesion. No central endobronchial lesion. Pleural spaces: Miniscule dependent pleural effusions. No pneumothorax. Heart: Atherosclerotic calcifications in the coronary vessels. Multi-chamber cardiac dilatation is noted. No evidence of acute pulmonary edema. Aorta: Ectatic atherosclerotic aorta shows no change . 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 Soft tissues: No asymmetric abnormality of the extrathoracic soft tissues. Other findings: Limited without IV contrast and also limited by motion IMPRESSION: 1. No identifiable lung mass. 2. Multifocal lung infiltrates new since the CT from June 09, 2021 suggesting an atypical pneumonia such as COVID-19 or other viral process 3. Mild dilatation of the thoracic aorta the diaphragmatic hiatus level measuring 3.5 cm PROGNOSIS: Good ACTIVITY: As tolerated DIET: consistent carb, 2g sodium DISCHARGE PLAN: Home with services, close nephrology and PCP follow up. DISPOSITION: Home with services DISCHARGE INSTRUCTIONS: Home with services, close nephrology and PCP follow up. ITEMS TO FOLLOWUP ON ON OUTPATIENT: CHF, and volume optimization with HD in nephrology ESRD on HD recent covid-19 PNA, PCP follow up Mild COPD exacerbation DISCHARGE CONDITION: Stable TIME SPENT ON DISCHARGE: 45 minutes. Vital Signs/I&Os Vital Signs Date Time Temp Pulse Resp B/P (MAP) Pulse Ox O2 Delivery O2 Flow Rate FiO2 07/07/21 06:13 85 132/60 07/07/21 06:00 98.3 18 94 Nasal Cannula 3.0 I&O- Last 24 Hours up to 6 AM 07/07/21 06:00 Intake Total 820 ml Output Total 3000 ml Balance -2180 ml Laboratory Data Labs 24H Laboratory Tests 2 07/06/21 11:16: Bedside Glucose (Misc Panel) 125H 07/06/21 16:48: Bedside Glucose (Misc Panel) 210H 07/06/21 19:47: Bedside Glucose (Misc Panel) 194H 07/07/21 05:57: Immature Granulocyte % (Auto) 5.0H, Neutrophils (%) (Auto) 69.9H, Lymphocytes (%) (Auto) 12.9L, Monocytes (%) (Auto) 11.6H, Eosinophils (%) (Auto) 0.0, Basophils (%) (Auto) 0.6, Neutrophils # (Auto) 5.8, Lymphocytes # (Auto) 1.1L, Monocytes # (Auto) 1.0H, Eosinophils # (Auto) 0.0, Basophils # (Auto) 0.1, Nucleated Red Blood Cells % (auto) 0.2H, Anion Gap 8, Glomerular Filtration Rate 11.5L, Calcium Level 8.8 07/07/21 06:28: Bedside Glucose (Misc Panel) 125H CBC/BMP Laboratory Tests 07/07/21 05:57 FSBS Laboratory Tests Test 07/06/21 11:16 07/06/21 16:48 07/06/21 19:47 07/07/21 06:28 Range/Units Bedside Glucose (Misc Panel) 125 210 194 125 83-110 MG/DL Microbiology Microbiology 07/05/21 Gram Stain - Final, Complete 07/05/21 Sputum Culture - Final, Complete 07/05/21 Respiratory Virus Panel (PCR) (NICOLE) - Final, Complete Respiratory Syncytial Virus 07/04/21 Blood Culture - Preliminary, Resulted No Growth after 48 hours. All Specime... 07/04/21 Blood Culture - Preliminary, Resulted No Growth after 48 hours. All Specime... Discharge Medications Scheduled Albuterol Sulf (Albuterol Sulfate) 2.5 Mg/3 Ml Vial.neb, 2.5 MG INH QID, (Reported) Allopurinol (Allopurinol) 100 Mg Tablet, 100 MG PO DAILY, (Reported) Amiodarone HCl (Amiodarone HCl) 200 Mg Tablet, 200 MG PO DAILY, (Reported) Atorvastatin Calcium (Atorvastatin Calcium) 20 Mg Tablet, 20 MG PO DAILY, (Reported) Calcitriol (Calcitriol) 0.25 Mcg Capsule, 0.25 MCG PO DAILY, (Reported) Calcium Carbonate (Calcium) 600 Mg Tablet, 600 MG PO BID, (Reported) Cholecalciferol (Vitamin D3) (Vitamin D3) 1,000 Unit Tablet, 1,000 UNITS PO QPM, (Reported) TAKES AT 1600 Ferrous Sulfate (Ferrous Sulfate) 325 Mg Tablet, 325 MG PO BID, (Reported) Fluticasone/Vilanterol (Breo Ellipta 200-25 Mcg INH) 1 Each Blst.w.dev, 1 PUFF INH DAILY, (Reported) Folic Acid (Folic Acid) 1 Mg Tablet, 1 MG PO DAILY, (Reported) Furosemide (Furosemide) 40 Mg Tablet, 80 MG PO DAILY, (Reported) Glipizide (Glipizide ER) 2.5 Mg Tab.er.24, 2.5 MG PO DAILY, (Reported) Magnesium Oxide (Magnesium Oxide) 400 Mg Tablet, 400 MG PO QPM, (Reported) TAKES AT 1600 Pantoprazole Sodium (Pantoprazole Sodium) 40 Mg Tablet.dr, 40 MG PO DAILY, (Reported) Prednisone (Prednisone) 20 Mg Tablet, 40 MG PO DAILY Raloxifene HCl (Raloxifene HCl) 60 Mg Tablet, 60 MG PO DAILY, (Reported) Sitagliptin (Januvia) 50 Mg Tablet, 50 MG PO DAILY, (Reported) dilTIAZem HCl (Diltiazem 24Hr Cd) 120 Mg Cap.er.24h, 120 MG PO DAILY, (Reported) Scheduled PRN Albuterol Sulfate (Ventolin Hfa) 18 Gm Hfa.aer.ad, 2 PUFFS INH Q6H PRN for SOB/WHEEZING, (Reported) Allergies Coded Allergies: codeine (Verified Adverse Reaction, Intermediate, stabbing abd pain, 11/30/20) phenytoin (Verified Adverse Reaction, Intermediate, feels like being stabbed in abd, 11/30/20) gabapentin (Verified Adverse Reaction, Mild, VERTIGO, 11/30/20) oxycodone (Verified Adverse Reaction, Mild, SHAKINESS, 11/30/20) CARITO WEBB MD Jul 07, 2021 10:18
--- NOTE | 2021-07-08 08:12 | IPNPDOC ---
Text Note Date of Service The patient was seen on 07/07/21. NOTE SUBJECTIVE: -No acute events. General: NAD, elderly HEENT: PERRLA, EOMI, moist mucous membranes, no lymphadenopathy, neck is supple Cardiovascular: regular rate and rhythm, no murmurs or gallops noted, capillary refill <2 seconds Pulmonary: Diminished bilaterally, has scattered bibasilar rales present Abdomen: obese, soft, nontender to palpation, positive bowel sounds Extremities: 2+ pitting edema noted to knees bilaterally, no cyanosis, warm Psych: alert and oriented x 4 Labs: Reviewed Imaging: Chest x-ray 07/04/21: IMPRESSION: Patchy infiltrates right right lower left perihilar bilateral lung. Findings may indicate multifocal pneumonitis. Changes related to fluid overload and atypical pulmonary edema to be considered as well. Apparent truncation of the left mainstem bronchus mass. Should further evaluation desired correlation with CT suggested. Chest CT 07/04/21: IMPRESSION: No identifiable lung mass. Multifocal lung infiltrates new since the CT from June 09, 2021 suggesting an atypical pneumonia such as COVID-19 or other viral process Mild dilatation of the thoracic aorta the diaphragmatic hiatus level measuring 3.5 cm Assessment: 76 year old W who presented to the Emergency department for worsening shortness of breath that started one day prior after hemodialysis, and found to have multifocal lung infiltrates on imaging and met sepsis criteria i/s/o recent covid-19 PNA and was admitted for presumed pneumonia, copd exacerbation, and pot ential sepsis. Plan: Initial suspicion of bacterial pneumonia: I actually have low suspicion for bacterial PNA. Her XR shows multifocal infiltrates in a host that just had covid-19 PNA, she has no leukocytosis, procalcitonin is negative, MRSA was negative, she is afebrile and proBNP was elevated suggesting more likely CHF exacerbation. -Multifocal lung infiltrate seen on imaging suggestive likely of viral origin vs. unlikely atypical pneumonia -Mycoplasma, chlamydia, legionella, strep pneumonia, respiratory panel pending -MRSA PCR negative -Dc'd antibiotics on 07/05 Acute on chronic copd exacerbation -clinically diagnosed by worsening shortness of breath, increased sputum production, and wheezing on initial examination -saturating well on 3L O2, patient is on 3L at home -will continue Prednisone po, day 3 of 5 -albuterol nebulizer [id number] prn CHF exacerbation: -volume optimization per HD -continue home lasix -elevated proBNP, with 2+ pitting edema bilaterally of LE, this is chronic ESRD -Nephrology consult placed, having HD while inpatient Chronic hypercapnic respiratory failure -ABG: pCO2 56, pH:7.3 -clinically without concern of worsening hypercarbia Hypertension -continue home medications Type 2 Diabetes Mellitus -sliding scale insulin with hypoglycemic protocol -FSBG AC/HS Coronary artery disease -EKG exhibited AV dual paced rhythm -continue atorvastatin History of secondary hyperparathyroidism -continue calcitriol History of anemia -Hemoglobin is 8. Monitor GERD -continue pantoprazole Obesity -BMI 32.9 DVT prophylaxis: -continue heparin Discharge plan: Was going to discharge home but had soft BPs post HD so will dc tomorrow with services. VS,Fishbone, I+O VS, Fishbone, I+O Laboratory Tests 07/08/21 06:01 Vital Signs Date Time Temp Pulse Resp B/P (MAP) Pulse Ox O2 Delivery O2 Flow Rate FiO2 07/08/21 06:00 97.5 87 19 115/58 (77) 95 Nasal Cannula 3.0 I&O- Last 24 Hours up to 6 AM 07/08/21 06:00 Intake Total 720 ml Output Total 2000 ml Balance -1280 ml CARITO WEBB MD Jul 08, 2021 08:12
[2021-07-08 09:00] VITALS: O2SAT 91
[2021-07-08] MEDS: DOCUSATE SODIUM 100MG CAPSULE PO SCH ×2 (09:56→20:49)
[2021-07-08] MEDS: FUROSEMIDE 80 MG TAB PO SCH (09:57)
[2021-07-08] MEDS: PANTOPRAZOLE 40MG TAB (PROTONIX) PO SCH (09:57)
[2021-07-08] MEDS: predniSONE 20 MG TAB PO SCH (09:57)
[2021-07-08] MEDS: ATORVASTATIN 20 MG TAB PO SCH (09:57)
[2021-07-08] MEDS: allopurinoL 100 MG TAB PO SCH (09:57)
[2021-07-08] MEDS: AMIODARONE 200 MG TAB (PACERONE) PO SCH (09:57)
[2021-07-08] MEDS: CALCITRIOL 0.25 MCG CAP (S0169) PO SCH (09:57)
[2021-07-08] MEDS: HEPARIN SOD (PORCINE) 5000UNITS/ML 1ML VIAL/SYRINGE SC SCH ×2 (09:58→20:49)
[2021-07-08] MEDS: FOLIC ACID 1 MG TAB PO SCH (09:58)
[2021-07-08] MEDS: ACETAMINOPHEN TAB 650MG DOSE (2X325MG) PO PRN ×3 (09:58→20:50)
[2021-07-08] MEDS: guaiFENesin 200 MG TAB PO PRN ×3 (09:58→20:49)
--- NOTE | 2021-07-08 11:26 | IPNPDOC ---
Text Note Date of Service The patient was seen on 07/08/21. NOTE SUBJECTIVE: -No acute events. -Told nephrology that she feels well enough to be discharged but is a bit short of breath and feels like she will likely return to the ED soon. Therefore Dr. Carmen Mcclellan recommended inpatient HD tomorrow then discharge home to resume outpatient HD on Friday. General: NAD, elderly HEENT: PERRLA, EOMI, moist mucous membranes, no lymphadenopathy, neck is supple Cardiovascular: regular rate and rhythm, no murmurs or gallops noted, capillary refill <2 seconds Pulmonary: Diminished bilaterally, has scattered bibasilar rales present Abdomen: obese, soft, nontender to palpation, positive bowel sounds Extremities: 2+ pitting edema noted to knees bilaterally, no cyanosis, warm Psych: alert and oriented x 4 Labs: Reviewed Imaging: Chest x-ray 07/04/21: IMPRESSION: Patchy infiltrates right right lower left perihilar bilateral lung. Findings may indicate multifocal pneumonitis. Changes related to fluid overload and atypical pulmonary edema to be considered as well. Apparent truncation of the left mainstem bronchus mass. Should further aleena luation desired correlation with CT suggested. Chest CT 07/04/21: IMPRESSION: No identifiable lung mass. Multifocal lung infiltrates new since the CT from June 09, 2021 suggesting an atypical pneu monia such as COVID-19 or other viral process Mild dilatation of the thoracic aorta the diaphragmatic hiatus level measuring 3.5 cm Assessment: 76 year old W who presented to the Emergency department for worsening shortness of breath that started one day prior after hemodialysis, and found to have multifocal lung infiltrates on imaging and met sepsis criteria i/s/o recent covid-19 PNA and was admitted for presumed pneumonia, copd exacerbation, and potential sepsis. Plan: Initial suspicion of bacterial pneumonia: I actually have low suspicion for bacterial PNA. Her XR shows multifocal infiltrates in a host that just had covid-19 PNA, she has no leukocytosis, procalcitonin is negative, MRSA was negative, she is afebrile and proBNP was elevated suggesting more likely CHF exacerbation. -Multifocal lung infiltrate seen on imaging suggestive likely of viral origin vs. unlikely atypical pneumonia -Mycoplasma, chlamydia, legionella, strep pneumonia, respiratory panel pending -MRSA PCR negative -Dc'd antibiotics on 07/05 Acute on chronic copd exacerbation -clinically diagnosed by worsening shortness of breath, increased sputum production, and wheezing on initial examination -saturating well on 3L O2, patient is on 3L at home -will continue Prednisone po, day 3 of 5 -albuterol nebulizer [id number] prn CHF exacerbation: -volume optimization per HD -continue home lasix -elevated proBNP, with 2+ pitting edema bilaterally of LE, this is chronic ESRD -Nephrology consult placed, having HD while inpatient Chronic hypercapnic respiratory failure -ABG: pCO2 56, pH:7.3 -clinically without concern of worsening hypercarbia Hypertension -continue home medications Type 2 Diabetes Mellitus -sliding scale insulin with hypoglycemic protocol -FSBG AC/HS Coronary artery disease -EKG exhibited AV dual paced rhythm -continue atorvastatin History of secondary hyperparathyroidism -continue calcitriol History of anemia -Hemoglobin is 8. Monitor GERD -continue pantoprazole Obesity -BMI 32.9 DVT prophylaxis: -continue heparin Discharge plan: Told nephrology that she feels well enough to be discharged but is a bit short of breath and feels like she will likely return to the ED soon. Therefore Dr. Carmen Mcclellan recommended inpatient HD tomorrow then discharge home to resume outpatient HD on Friday. VS,Fishbone, I+O VS, Fishbone, I+O Laboratory Tests 07/08/21 06:01 Vital Signs Date Time Temp Pulse Resp B/P (MAP) Pulse Ox O2 Delivery O2 Flow Rate FiO2 07/08/21 09:58 91 120/59 07/08/21 09:00 3.0 07/08/21 06:00 97.5 19 95 Nasal Cannula I&O- Last 24 Hours up to 6 AM 07/08/21 06:00 Intake Total 720 ml Output Total 2000 ml Balance -1280 ml CARITO WEBB MD Jul 08, 2021 11:26
--- NOTE | 2021-07-08 11:59 | IPN ---
NEPHROLOGY PROGRESS NOTE DATE: 07/08/2021 SUBJECTIVE: Ms. Montanez is seen and examined this morning at the bedside. She complains she is still short of breath with mild exertion. She was dialyzed the last three days in a row. She reports ongoing cough, but otherwise has no complaints. Peripheral edema is improving, but not resolved. PHYSICAL EXAMINATION: VITAL SIGNS: Temperature 97.5, pulse 87respiratory rate 18, blood pressure 115/58, saturating 95% on 3 liters nasal cannula. INTAKE AND OUTPUT: Intake yesterday was 720. Dialysis yesterday removed 2 liters. Weight in the bed scale today is 85.2 kg. GENERAL: Patient is seen sitting in the chair, elderly female, awake, alert, oriented times three, comfortable and in no acute distress. HEENT: Extraocular muscles are intact. Tongue is moist. NECK: Supple. Jugular veins were not elevated while she was sitting upright. LUNG SOUNDS: Diminished bilaterally and there is scattered rhonchus and diminished breath sounds at the base. She is seen comfortable on 3 liters nasal cannula. There is no accessory muscle use. There is no tachypnea. There is a tunneled hemodialysis catheter in the right chest wall with a clean dressing. HEART SOUNDS: Regular. S1, S2. There is ongoing 1+ edema of the lower extremities. ABDOMEN: Soft, obese and nontender. EXTREMITIES: 1+ edema to coming up to just below the knees bilaterally. NEUROLOGIC: Oriented times three, interactive, conversational. SKIN: Shows some pallor. LABORATORY STUDIES: White count 11.6, hemoglobin 8.6, platelets 290. Sodium 138, potassium 4.5, bicarbonate 29, glucose 96. INPATIENT MEDICATIONS: Reviewed by myself and no changes noted over the past 24 hours. PROBLEMS: 1. End-stage renal disease on hemodialysis on a Friday, , Friday schedule. Patient was dialyzed the last three days in a row, as she is in moderate fluid overload. She still has some peripheral edema and is complaining of dyspnea with even mild exertion. I will plan to give her an extra dialysis treatment tomorrow, Friday, July 09, 2021, and then she can be discharged afterwards and can follow up in the outpatient hemodialysis unit to continue dialysis on a Friday, , Friday schedule. 2. Decompensated diastolic congestive heart failure. Patient was dialyzed the last three days in a row. Clinically, her volume status has improved, but is not yet optimized. She still has peripheral edema. She still has dyspnea with mild exertion. We will dialyze her on Friday. It will be an extra treatment and then she will continue dialysis as an outpatient on a Friday, , Friday schedule. She should continue with a moderate fluid restriction (1.5 liters) and low sodium intake. 3. Acute on chronic hypoxic respiratory failure in this patient with ongoing fluid overload, underlying chronic obstructive pulmonary disease (COPD) and currently also with respiratory syncytial virus (RSV). She received dialysis three days in a row and she will have an extra dialysis treatment on Friday as well. The remainder of issues are managed by the primary team. She is on oral prednisone. She continues with supplemental oxygen and is also on the usual bronchodilators. 4. Anemia. Hemoglobin is 8.6 on the latest labs. She is on Venofer with dialysis and she will receive erythrocyte sedimentation rate in the outpatient dialysis unit for goal hemoglobin 10-11. 5. Hypertension. Blood pressures are controlled on the current regimen. She is only on diltiazem.
[2021-07-08 14:00] VITALS: BP 127/70
[2021-07-08 20:11] VITALS: BP 124/59
[2021-07-08] MEDS: NYSTATIN 100,000 UNITS/GM TOPICAL PWD 15 GM TOP PRN (22:56)
[2021-07-09 06:00] VITALS: BP 130/63
[2021-07-09 06:54] LABS: HEMATOCRIT 28.8 % (36.0-47.0); HEMOGLOBIN 8.7 g/dl (12.0-15.5); MEAN CORPUSCULAR HEMOGLOBIN 32.1 pg (27.0-33.0); MEAN CORPUSCULAR HGB CONC 30.2 g/dl (32.0-36.5); MEAN CORPUSCULAR VOLUME 106.3 fl (80.0-96.0); PLATELET COUNT, AUTOMATED 279 10^3/uL (150-450); RED BLOOD COUNT 2.71 10^6/uL (4.00-5.40); WHITE BLOOD COUNT 12.8 10^3/uL (4.0-10.0)
[2021-07-09 07:27] LABS: CALCIUM LEVEL 9.2 MG/DL (8.8-10.2); CREATININE FOR GFR 4.31 MG/DL (0.55-1.30); GLOMERULAR FILTRATION RATE 10.7 (>39); POTASSIUM SERUM 4.6 MEQ/L (3.5-5.1)
[2021-07-09] MEDS: HumaLOG INSULIN (NovoLOG) PER UNIT SC SCH ×2 (07:30→12:07)
[2021-07-09 07:33] LABS: ATYPICAL LYMPH 1 % (0-5); LYMPHOCYTES 12 % (16-44); METAMYELOCYTES 4 % (0-0); MONOCYTES 13 % (0-5); MYELOCYTES 7 % (0-0); NEUTROPHILS 63 % (28-66)
[2021-07-09 07:34] LABS: ANISOCYTOSIS 1+; PLATELET ESTIMATE NORMAL (NORMAL)
[2021-07-09] MEDS: ADVAIR HFA 115/21MCG INHALER INH SCH (07:58)
[2021-07-09] MEDS: DOCUSATE SODIUM 100MG CAPSULE PO SCH (08:16)
[2021-07-09] MEDS: FUROSEMIDE 80 MG TAB PO SCH (08:17)
[2021-07-09] MEDS: AMIODARONE 200 MG TAB (PACERONE) PO SCH (08:17)
[2021-07-09] MEDS: predniSONE 20 MG TAB PO SCH (08:17)
[2021-07-09] MEDS: CALCITRIOL 0.25 MCG CAP (S0169) PO SCH (08:17)
[2021-07-09] MEDS: ATORVASTATIN 20 MG TAB PO SCH (08:17)
[2021-07-09] MEDS: FOLIC ACID 1 MG TAB PO SCH (08:17)
[2021-07-09 08:18] VITALS: BP 115/62
[2021-07-09] MEDS: allopurinoL 100 MG TAB PO SCH (08:18)
[2021-07-09] MEDS: PANTOPRAZOLE 40MG TAB (PROTONIX) PO SCH (08:18)
[2021-07-09] MEDS: HEPARIN SOD (PORCINE) 5000UNITS/ML 1ML VIAL/SYRINGE SC SCH (08:19)
[2021-07-09 08:26] VITALS: O2SAT 93
[2021-07-09] MEDS: guaiFENesin 200 MG TAB PO PRN (09:29)
[2021-07-09] MEDS: NYSTATIN 100,000 UNITS/GM TOPICAL PWD 15 GM TOP PRN (09:30)
[2021-07-09] MEDS ORDERED: SODIUM CHLORIDE 0.9% 1000ML IV PRN (10:50)
[2021-07-09] MEDS: IRON SUCROSE 100MG 5ML VIAL (J1756 PER 1MG) IV SCH (12:40)
[2021-07-09 13:10] LABS: BODY FLUID CULTURE Not indicated. (.); LEGIONELLA ANTIGEN URINE Negative (Negative); ORGANISM ID Not indicated. (.); SPECIMEN SOURCE Urine (.); URINE STREP PNEUMONIAE ANTIGEN Negative (Negative)
--- NOTE | 2021-07-09 13:41 | IPNPDOC ---
Text Note Date of Service The patient was seen on 07/09/21. NOTE SUBJECTIVE: -No acute events. -Told nephrology yesterday that she felt well enough to be discharged but was a bit short of breath and felt like she would soon return to the ED, so Dr. Carmen Mcclellan recommended inpatient HD this AM then discharge home to resume outpatient HD tomorrow. General: NAD, elderly HEENT: PERRLA, EOMI, moist mucous membranes, no lymphadenopathy, neck is supple Cardiovascular: regular rate and rhythm, no murmurs or gallops noted, capillary refill <2 seconds Pulmonary: Diminished bilaterally, has scattered bibasilar rales present Abdomen: obese, soft, nontender to palpation, positive bowel sounds Extremities: 2+ pitting edema noted to knees bilaterally, no cyanosis, warm Psych: alert and oriented x 4 Labs: Reviewed Imaging: Chest x-ray 07/04/21: IMPRESSION: Patchy infiltrates right right lower left perihilar bilateral lung. Findings may indicate multifocal pneumonitis. Changes related to fluid overload and atypical pulmonary edema to be considered as well. Apparent truncation of the left mainstem bronchus mass. Should further evaluation desired correlation with CT suggested. Chest CT 07/04/21: IMPRESSION: No identifiable lung mass. Multifocal lung infiltrates new since the CT from June 09, 2021 suggesting an atypical pneumonia such as COVID-19 or other viral process Mild dilatation of the thoracic aorta the diaphragmatic hiatus level measuring 3.5 cm Assessment: 76 year old W who presented to the Emergency department for worsening shortness of breath that started one day prior after hemodialysis, and found to have multifocal lung infiltrates on imaging and met sepsis criteria i/s/o recent covid-19 PNA and was admitted for presumed pneumonia, copd exacerbation, and potential sepsis. She is now being discharged home. PLEASE SEE DISCHARGE SUMMARY FOR REST OF HOSPITAL COURSE. VS,Fishbone, I+O VS, Fishbone, I+O Laboratory Tests 07/09/21 06:41 Vital Signs Date Time Temp Pulse Resp B/P (MAP) Pulse Ox O2 Delivery O2 Flow Rate FiO2 07/09/21 08:26 93 Nasal Cannula 3.0 07/09/21 08:18 92 115/62 07/09/21 06:00 97.9 18 I&O- Last 24 Hours up to 6 AM 07/09/21 05:59 Intake Total 420 ml Output Total 300 ml Balance 120 ml CARITO WEBB MD Jul 09, 2021 10:15
--- NOTE | 2021-07-09 14:54 | IPN ---
PROGRESS NOTE DATE: 07/09/2021 SUBJECTIVE: Ms. Ahumada is seen this afternoon in the hemodialysis unit receiving a treatment. She is discharged pending after dialysis. She has no complaints. She reports she is still having a productive cough but is looking forward to going home. Dialysis today is uneventful. OBJECTIVE: VITAL SIGNS: Temperature is 97.9, pulse 80, respiratory rate is 18, blood pressure is 130/63, saturating 94% on 3 liters nasal cannula. INTAKE AND OUTPUT: Intake yesterday was not fully recorded. Goal dialysis fluid removal today is 2.5 liters. Weight on the bed scale today is not recorded. GENERAL: Patient is seen awake, alert and oriented, comfortable, receiving her treatment in no apparent distress. HEENT: Extraocular muscles are intact. Tongue is moist. NECK: Supple. Jugular veins are mildly elevated. HEART: Heart sounds are regular. S1 and S2. There is 1+ peripheral edema. LUNGS: Diminished breath sounds bilaterally, she has a cough with deep inspiration. There is occasional rhonchus. ABDOMEN: Obese, soft and nontender. EXTREMITIES: There is at least 1+, almost 2+ pitting edema that comes up to the proximal knee. NEUROLOGIC: She is oriented x3. She is interactive and conversational. SKIN: There is some pallor and normal temperature. LABORATORY DATA: White count is 12.8, hemoglobin is 8.7, platelets are 279,000. Sodium is 139, potassium is 4.6, bicarbonate 28. INPATIENT MEDICATIONS: Reviewed by myself. No changes noted over the past 24 hours. PROBLEMS: 1. Endstage renal disease on a Friday, and Friday schedule. The patient is still in mild fluid overload. She is receiving an extra dialysis treatment today. We are going to remove 2.5 liters as tolerated by hemodynamics. Tomorrow she will have her regular outpatient treatment for further control of her volume status. Her electrolytes are otherwise reasonable and I have discussed with her that she should continue to follow a moderate fluid restriction and low sodium diet as an outpatient. 2. Anemia related to chronic renal failure along with iron deficiency. The patient is receiving Venofer with dialysis and will start on Erythropoietin stimulating agent in the outpatient dialysis unit. Hemoglobin is 8.7 on the latest labs and has slowly improved over the course of this admission. 3. Decompensated diastolic congestive heart failure. Patient still has some mild fluid overload, ongoing peripheral edema and she is chronically oxygen dependent because of underlying COPD. She also is currently admit with respiratory syncytial virus and is complaining of dyspnea on exertion. We have tried to optimize her volume status. She had an extra dialysis treatment last week and she is having an additional extra treatment today for further fluid removal and she will continue with dialysis on Friday, and Friday schedule and 1.5 liter fluid restriction. 4. Acute on chronic hypoxic respiratory failure in this patient with congestive heart failure, COPD and currently with RSV. She had extra dialysis treatments done on this admission for optimization of her volume status and remainder of issues are managed by the primary team. At home, she is also chronically on three liters of oxygen. 5. Hypertension, blood pressures are controlled with the current regimen (Diltiazem monotherapy). 6. Disposition: Patient is stable for discharge from a Nephrology point of view after today's dialysis treatment.
[2021-07-09 15:58] VITALS: BP 110/84
[2021-07-09 16:08] LABS: CHLAMYDIA PNEUMONIAE IgG <1:16 (Neg:<1:16); CHLAMYDIA PNEUMONIAE IgM <1:10 (Neg:<1:10)
== END 2021-07-09 17:23 | disposition home health service (06) | DRG 291 ==
LOC: M ED 19:17 → M ED INP 21:55 → ENRESERV 07-05 00:11 → M MSPAV 07-05 00:53
PROVIDERS: ADMIT Internal Medicine; ATTEND Internal Medicine
PROC: 5A1D70Z Performance of Urinary Filtration, Intermittent, Less than 6 Hours Per Day (ICD-10-PCS; principal; 2021-07-06)
DX: I13.2 Hypertensive heart and chronic kidney disease with heart failure and with stage 5 chronic kidney disease, or end stage renal disease (principal); N18.6 End stage renal disease; I50.33 Acute on chronic diastolic (congestive) heart failure; J96.12 Chronic respiratory failure with hypercapnia; N25.81 Secondary hyperparathyroidism of renal origin; J44.0 Chronic obstructive pulmonary disease with (acute) lower respiratory infection; J44.1 Chronic obstructive pulmonary disease with (acute) exacerbation; D63.1 Anemia in chronic kidney disease; Z99.2 Dependence on renal dialysis; E66.9 Obesity, unspecified; Z86.16 Personal history of COVID-19; E11.22 Type 2 diabetes mellitus with diabetic chronic kidney disease; I25.10 Atherosclerotic heart disease of native coronary artery without angina pectoris; K21.9 Gastro-esophageal reflux disease without esophagitis; G47.33 Obstructive sleep apnea (adult) (pediatric); Z95.0 Presence of cardiac pacemaker; Z90.49 Acquired absence of other specified parts of digestive tract; Z90.79 Acquired absence of other genital organ(s); Z87.891 Personal history of nicotine dependence; Z68.32 Body mass index [BMI] 32.0-32.9, adult; Z66 Do not resuscitate; Z20.822 Contact with and (suspected) exposure to COVID-19; Z79.84 Long term (current) use of oral hypoglycemic drugs; Z79.899 Other long term (current) drug therapy; Z88.5 Allergy status to narcotic agent; Z88.8 Allergy status to other drugs, medicaments and biological substances; I48.91 Unspecified atrial fibrillation

== ENCOUNTER 2021-08-10 08:34 | Inpatient (IN) | payer MEDICARE ==
[~2021-08-10] VITALS: Ht 160 cm; Wt 81.2 kg
[~2021-08-10 08:34] MED LIST changes: +MAGN400T33 PO; +PRED20TA PO
--- OUTSIDE RECORDS SUMMARY | 2021-08-10 08:40 | CCD | Continuity of Care Document ---
Author Author Zita LUINRenetta Organization Unknown Address [address] [address] Phone [phone] Care Team Providers Care Derrick Boat Captain Name Role Phone Danya Jett AUTM [phone] John Rey DO AUTM [phone] Joceline Ferguson M.D. AUTM [phone] AUTM Unavailable AUTM Unavailable Problems Active Problems Provider Date Overweight Deng Jacobsen D.O. Onset: 2 Tobacco user Priscilla Lui A.N.Adriane Onset: 03/21/2011 Hypoxemia Priscilla Lui A.NRenetta Onset: 03/21/2011 Essential hypertension Priscilla Lui A.N.Adriane Onset: 03/21/2011 Obstructive sleep apnea syndrome Priscilla Lui A.N.PRosey Onset: 11/21/2010 Emphysematous bronchitis Priscilla Lui A.N.PRosey Onset: 11/22/19 11 Chronic hypercapnic respiratory failure Rafa ShiNRenetta Onset: 04/17/2021 Ex-smoker Rafa ShiNRenetta Onset: 04/17/2021 Social History Type Date Description Comments Sex Unknown Tobacco Use Start: Unknown Heavy tobacco smoker (more than 10 cigarettes/day) Cigarette Use Report Cessation Counseling Was Provided Tobacco Use Start: Unknown Patient is a current cigarette smoker, smokes every day ETOH Use Denies alcohol use Recreational Drug Use Denies Drug Use Tobacco Use Start: Unknown Report Cessation Counseling Was Provided Tobacco Use Start: Unknown End: Patient is a former smoker Smoking Status Reviewed: 08/09/21 Patient is a former smoker Allergies and adverse reactions Active Allergies Criticality Reaction | Severity Comments Date Codeine Unable to assess criticality nausea 04/09/2010 Phenytoin Unable to assess criticality nausea 04/09/2010 Medications Active Medications SIG Qnty Indications Ordering Provide r Date Breo Ellipta 200-25mcg/Inh Aerosol inhale one puff by mouth every day 60units J44.9 Priscilla Lui, A.N.P. 0 04/17/2021 Albuterol Sulfate/ Ipratropium (2.5mg/3ML) 0.083% Nebulizer 1 vial qid prn 120units 493.00 Deng Jacobsen D.O . 04/10/2010 Furosemide 40mg Tablets 1 po qd 60tabs Unknown Ranitidine HCL 300mg Tablets 1 po bid Unknown Atorvastatin Calcium 20mg Tablets 1 by mouth every day Unknown Calcium + D3 600-200 Tablets 1 by mouth twice a day Unknown Vitamin D (Ergocalciferol) 22727Fezl Capsules 1 qd Unknown Pantoprazole Sodium 40mg Tablets D R daily -- one tablet in morning 1/2 hour before breakfast Unknown Raloxifene HCL 60mg Tablets 1 qd Unknown Vitamin B12 600mcg Tablets ER 1 by mouth every day Unknown Ipratropium Spring 0.03% Solution one nasal spray each nostril [...] 3 Years Of Age Or Older (Flulaval) [address]443 Given 06/20/2010 Influenza Virus Split 3 Yrs And Above For Intramuscular Use Vital Signs Date Vital Result Comment 08/09/2021 11:39am BP Systolic 112 mmHg BP Diastolic 60 mmHg Heart Rate 93 /min Height 63 inches 5'3" Weight 189.00 lb BMI (Body Mass Index) 33.5 kg/m2 Lavinia Body Weight 115 lb Weight 85.730 kg BSA (Body Surface Area) 1.89 m2 04/17/2021 9:52am BP Systolic 122 mmHg BP Diastolic 70 mmHg Heart Rate 97 /min O2 % BldC Oximetry 933 % Height 63 inches 5'3" Weight 186.00 lb BMI (Body Mass Index) 32.9 kg/m2 Lavinia Body Weight 115 lb Weight 84.370 kg BSA (Body Surface Area) 1.87 m2 Results Description No Information Available Procedures Date Code Description Status 06/12/2021 66422 Hospital Subsequent Care Level 2 Completed 06/12/2021 43044 Fluoroscopic Guidanc e For Central Venous Access Device Placement Completed 06/12/2021 65234 Ultrasound Guidance For Vascular Access Requiring Ultrasound Eval Completed 06/12/2021 41793 Insertion Of [place] d Centrally Inserted Central Venous Catheter Completed 04/17/2021 81093 Office/Outpatient New Moderate M DM 45-59 Minutes Completed 04/17/2021 90199 Inhaler Teaching Completed Medical Devices Description No Information Available Encounters Type Date Location Provider Dx Diagnosis Office Visit 06/12/2021 9:00a [facility] Rat na Juwan Saavedra MD N18.6 End stage renal disease Office Visit 04/17/2021 10:00a [facility] Pulmonary/Thoracic Priscilla escalante, A.N.P. J44.9 Chronic obstructive pulmonary disease, u nspecified R91.8 Other nonspecific abnormal f inding of lung field Z87.891 Personal history of nicotine dependence J96.12 Chronic respiratory failure with hypercapnia G47.33 Obstructive sleep apnea (yuko lt) (pediatric) Assessments Date Code Description Provider 08/09/2021 J44.9 Chronic obstructive pulmonary di sease, unspecified Priscilla Lui, A.N.P. 08/09/2021 R09.02 Hypoxemia Priscilla Lui, A.N. P. 08/09/2021 R91.8 Other nonspecific abnormal findi ng of lung field Priscilla Lui, A.N.P. 08/09/2021 Z87.891 Personal history of nicotine dep endence Rafa ShiNRenetta 06/12/2021 N18.6 End stage renal disease Padmini Saavedra MD 04/17/2021 J44.9 Chronic obstructive pulmonary di sease, unspecified Darrius Shi 04/17/2021 R91.8 Other nonspecific abnormal findi ng of lung field Darrius Shi 04/17/2021 Z87.891 Personal history of nicotine dep endence Darrius Shi 04/17/2021 J96.12 Chronic respiratory failure with hypercapnia Darrius Shi 04/17/2021 G47.33 Obstructive sleep apnea (adult) (pediatric) Darrius Shi Plan of Treatment Future Appointment(s):* 11/01/2021 1:30 pm - Darrius Shi at [facility] Pulmonary/Thoracic 08/09/2021 - Darrius Shi* J44.9 Chronic obstructive pulmonary disease, unspecified * R09.02 Hypoxemia * R91.8 Other nonspecific abnormal finding of lung field * Z87.891 Personal history of nicotine dependence * * Follow up:* As scheduled Functional Status Description No Information Available Mental Status Description No Information Available Referrals Refer to Reason for Referral Status Appt Priscilla Ruiz A.N.P. COPD Closed 04/17/2021 [facility] Medical Practice Pulmonary [address] [place], [place] [id number] [phone]
--- OUTSIDE RECORDS SUMMARY | 2021-08-10 08:40 | CCD | Continuity of Care Document ---
Author Author Zita LUINRenetta Organization Unknown Address [address] [address] Phone [phone] Care Team Providers Care Research Physicist Name Role Phone Danya Jett AUTM [phone] John Rey DO AUTM [phone] Joceline Ferguson M.D. AUTM [phone] AUTM Unavailable AUTM Unavailable Problems Active Problems [...] twice a day Unknown Vitamin D (Ergocalciferol) [id number] Capsules 1 qd Unknown Pantoprazole Sodium 40mg Tablets D R daily -- one tablet in morning 1/2 hour before breakfast Unknown Raloxifene HCL 60mg Tablets 1 qd Unknown Vitamin B12 600mcg Tablets ER 1 by mouth every day Unknown Ipratropium Bude 0.03% Solution one nasal spray each nostril [...] 3 Years Of Age Or Older (Flulaval) [address] Given 06/20/2010 Influenza Virus Split 3 Yrs And Above For Intramuscular Use Vital Signs Date Vital Result Comment 08/09/2021 11:39am BP Systolic 112 mmHg BP Diastolic 60 mmHg Heart Rate 93 /min Height 63 inches 5'3" Weight 189.00 lb BMI (Body Mass Index) 33.5 kg/m2 Celina Body Weight 115 lb Weight 85.730 kg BSA (Body Surface Area) 1.89 m2 04/17/2021 9:52am BP Systolic 122 mmHg BP Diastolic 70 mmHg Heart Rate 97 /min O2 % BldC Oximetry 933 % Height 63 inches 5'3" Weight 186.00 lb BMI (Body Mass Index) 32.9 kg/m2 Celina Body Weight 115 lb Weight 84.370 kg BSA (Body Surface Area) 1.87 m2 Results Description No Information Available Procedures Date Code Description Status 06/12/2021 93529 Hospital Subsequent Care Level 2 Completed 06/12/2021 64118 Fluoroscopic Guidanc e For Central Venous Access Device Placement Completed 06/12/2021 69850 Ultrasound Guidance For Vascular Access Requiring Ultrasound Eval Completed 06/12/2021 14297 Insertion Of [place] d Centrally Inserted Central Venous Catheter Completed 04/17/2021 93829 Office/Outpatient New Moderate M DM 45-59 Minutes Completed 04/17/2021 13917 Inhaler Teaching Completed Medical Devices Description No Information Available Encounters Type Date Location Provider Dx Diagnosis Office Visit 06/12/2021 9:00a [facility] Rat na Juwan Saavedra MD N18.6 End stage renal disease Office Visit 04/17/2021 10:00a [facility] Priscilla escalante, A.N.P. J44.9 [...] 11/01/2021 1:30 pm - Darrius Shi at [facility] 08/09/2021 - Darrius Shi* [...] Appt Priscilla Ruiz A.N.P. COPD Closed 04/17/2021 [facility] [address] [place], [place] [id number] [phone]
--- OUTSIDE RECORDS SUMMARY | 2021-08-10 08:41 | CCD ---
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 Bette Artis Hypertensive heart and chronic kidney di sease with heart failure and with stage 5 chronic kidney disease, or end stage renal disease Hypertensive heart and chronic kidney disease with heart failure and with stage 5 chronic kidney disease, or end stage renal disease Diagnosis Active Bette Artis Acute on chronic diastolic (congestive) heart failure Acute on chronic diastolic (congestive) heart failure Diagnosis Active Yunior Artis 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 Active Bette Artis End stage renal disease End stage renal disease Diagnosis Active Bette Artis Acute kidney failure, unspecified Acute kidney failure, unspecif ied Diagnosis Active Bette Artis COVID-19 COVID-19 Diagnosis Active Sue Mikel rory Pneumonia due to coronavirus disease 2019 Pneumonia du e to coronavirus disease 2019 Diagnosis Active Bette Artis Chronic obstructive pulmonary disease with (acute) low er respiratory infection Chronic obstructive pulmonary disease with (acute) lower respiratory infection Diagnosis Active Bette Artis Pneumonia due to other streptococci Pneumonia due to other s treptococci Diagnosis Active Bette Artis Acute upper respiratory infection, unspecified Acute u pper respiratory infection, unspecified Diagnosis Active Bette Artis Respiratory syncytial virus as the cause of diseases c lassified elsewhere Respiratory syncytial virus as the cause of diseases classified elsewhere Diagnosis Active Bette Artis Acute and chronic respiratory failure with hypoxia Acu te and chronic respiratory failure with hypoxia Diagnosis Active Bette Artis 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 Diagnosis Active Bette Epperson Marolf Secondary hyperparathyroidism of renal origin Secondar y hyperparathyroidism of renal origin Diagnosis Active Bette Raeolf Anemia in chronic kidney disease Anemia in chronic kidney diseas e Diagnosis Active Bette Epperson Marolf Obesity, unspecified Obesity, unspecified Diagnosis Active Bette Epperson Marolf Body mass index [BMI] 31.0-31.9, adult Body mass index [BMI] 31.0-31.9, adult Diagnosis Active Bette Raeolf Obstructive sleep apnea (adult) (pediatric) Obstructiv e sleep apnea (adult) (pediatric) Diagnosis Active Bette Raeolf Nicotine dependence, unspecified, uncomplicated Nicoti ne dependence, unspecified, uncomplicated Diagnosis Active Yunior Raeolf Gastro-esophageal reflux disease without esophagitis G garcia-esophageal reflux disease without esophagitis Diagnosis Active Tanner Artis Hyperlipidemia, unspecified Hyperlipidemia, unspecified Diagnosis Active Bette Blockf Gout, unspecified Gout, unspecified Diagnosis Active Bette Epperson Marolf Do not resuscitate Do not resuscitate Diagnosis Active Bette Epperson Marolf Presence of cardiac pacemaker Presence of cardiac pacemaker Diagnosis Active Bette Raeolf Infection s/s of infection Infection Active 2021-06-21 12:00:00 Nae Galeas Pain frequent pain Pain Mgmt Active 2021-06-21 12:00:00 Nae Galeas Cardio hypertension Cardiovascular Active 2021-06-21 12:00:00 Nae Galeas Cardio knowledge/skill deficit: pt Cardiovascular Active 2021-06 12:00:00 Nae Galeas Respiratory lung sounds deficit Respiratory Active 2021-06-21 12:00:00 Nae Galeas Respiratory dyspnea present Respiratory Active 2021-06-21 12:00:00 Nae Galeas Respiratory oxygen treatments in home Respiratory Active 2021-06-21 12:00:00 Nae Galeas Respiratory pneumonia Respiratory Active 2021-06-21 12:00:00 Nae Galeas Respiratory smoker Respiratory Active 2021-06-21 12:00:00 Nae Galeas Respiratory nebulizer treatment in home Respiratory Active 2020-09 12:00:00 Nae Galeas Endo/Ha knowledge/skill deficit: pt Endo/Ha Active 2021-06-21 12:00 :00 Nae Galeas Endo/Ha k/s deficit hypo/hyperglycemia: pt Endo/Ha Active 2021-06-21 12:00:00 Ane Galeas Endo/Ha anti-coagulation therapy Endo/Ha Active 2021-06-21 12:00:00 Nae Galeas Integument skin integrity risk Integument Active 2021-06-21 12:00:00 Nae Galeas Integument knowledge/skill deficit: pt Integument Active 2021-06-21 12:00:00 Nae Galeas Nutrition knowledge/skill deficit: pt Nutrition Active 2021-06-21 12:00 :00 Nae Galeas Nutrition nutritional restrictions Nutrition Active 2021-06-21 12:00:00 Nae Galeas Elimination knowledge/skill deficit: pt Elimination Active 2020-09 12:00:00 Nae Galeas Neuro confusion present Neuro/Emotion Active 2021-06-21 12:00:00 Nae Galeas Neuro anxiety present Neuro/Emotion Active 2021-06-21 12:00:00 Nae Galeas Neuro knowledge/skill deficit: pt Neuro/Emotion Active 2021-06-21 12: 00:00 Nae Galeas Activity ADL assistance required Activity Active 2021-06-21 12:00:00 Nae Galeas Activity self-care deficit Activity Active 2021-06-21 12:00:00 Nae Galeas Activity knowledge/skill deficit: pt Activity Active 2021-06-21 12:00:0 0 Nae Galeas Safety cannot be left alone Safety Active 2021-06-21 12:00:00 Nae Galeas Safety knowledge/skill deficit: pt Safety Active 2021-06-21 12:00:00 Nae Galeas Safety fall risk factor present Safety Active 2021-06-21 12:00:00 Nae Galeas Safety risk for hospitalization Safety Active 2021-06-21 12:00:00 Nae Galeas Medication oral med assistance required Meds Active 2021-06-21 12:00 :00 Nae Galeas Medication knowledge/skill deficit: pt Meds Active 2021-06-21 12:00: 00 Nae Galeas Diagnoses knowledge/skill deficit: pt Diagnoses Active 2021-06-21 12:00 :00 Nae Galeas Musculoskeletal transfer assistance required Musculoskeletal Active 2021-06-21 12:00:00 Nae Galeas Musculoskeletal requires human assist to leave home Musculoskeletal Active 2021-06-21 12:00:00 Nae Galeas Musculoskeletal requires special transportation Musculoskeletal Act nick 2021-06-21 12:00:00 Naebart Galeas Elimination urinary incontinence Elimination Active 2021-07-11 12:15:00 Marian German Safety can be left alone for only short periods Safety Active 2021-07-11 12:15:00 Marian German Allergies, Adverse Reactions, Alerts Allergy Name Allergy Type Status Severity Reaction(s) Onset Date Inacti ve Date Treating Clinician Comments codeine Base Ingredient Active Unknown Reaction Unknown 2021-06-21 Nae Galeas gabapentin Base Ingredient Active Unknown Reaction Unknown 2021-06-21 Nae Galeas oxycodone Base Ingredient Active Unknown Reaction Unknown 2021-06-21 Nae Galeas phenytoin Base Ingredient Active Unknown Reaction Unknown 2021-06-21 Nae Galeas Medications Ordered Medication Name Filled Medication Name Start Date Stop Da te Current Medication? Ordering Clinician Indication Dosage Frequency Signature (SIG) Comments Components Mucinex 600 mg tablet, extended release Mucinex 600 mg table t, extended release 2021-06-21 Yes Kristen,Silver Unknown Unknown ipratropium 20 mcg-albuteroL 100 mcg/actuation mist fo r inhalation ipratropium 20 mcg-albuteroL 100 mcg/actuation mist for inhalation 2021-06-21 Yes Kristen,Silver Unknown Unknown Januvia 50 mg tablet Januvia 50 mg tablet 2021-06-21 Yes Jules ever,Silver Unknown Unknown predniSONE 10 mg tablet predniSONE 10 mg tablet 2021-06-21 2021-06-28 Yes Kristen,Silver Unknown Unknown furosemide 40 mg tablet furosemide 40 mg tablet 2021-06-21 2021-07-11 Yes Kristen,Silver Unknown Unknown albuterol sulfate 2.5 mg/3 mL (0.083 %) solution for n ebulization albuterol sulfate 2.5 mg/3 mL (0.083 %) solution for nebulization 2021-06-21 Yes Kristen,Silver Unknown Unknown Ventolin HFA 90 mcg/actuation aerosol inhaler Ventolin HFA 90 mcg/actuation aerosol inhaler 2021-06-21 Yes Silver Peterson Unknown Unknown allopurinoL 100 mg tablet allopurinoL 100 mg tablet 2021-06-21 Yes Silver Peterson Unknown Unknown amiodarone 200 mg tablet amiodarone 200 mg tablet 2021-06-21 Yes Silver Peterson Unknown Unknown atorvastatin 20 mg tablet atorvastatin 20 mg tablet 2021-06-21 Yes Silver Peterson Unknown Unknown calcitrioL 0.25 mcg capsule calcitrioL 0.25 mcg capsule 2021-06-21 Yes Silver Peterson Unknown Unknown calcium carbonate 600 mg calcium (1,500 mg) tablet dominique cium carbonate 600 mg calcium (1,500 mg) tablet 2021-06-21 Yes Silver Peterson Unknown U nknown Vitamin D3 25 mcg (1,000 unit) tablet Vitamin D3 25 mcg (1,0 00 unit) tablet 2021-06-21 2021-07-11 Yes Silver Peterson Unknown Unknown dilTIAZem CD 120 mg capsule,extended release 24 hr dil TIAZem CD 120 mg capsule,extended release 24 hr 2021-06-21 Yes Silver Peterson U nknown Unknown docusate sodium 100 mg capsule docusate sodium 100 mg capsule 2021-06 Yes Silver Peterson Unknown Unknown ferrous sulfate 325 mg (65 mg iron) tablet ferrous sul fate 325 mg (65 mg iron) tablet 2021-06-21 Yes Silver Peterson Unknown Unknown Breo Ellipta 200 mcg-25 mcg/dose powder for inhalation Breo Ellipta 200 mcg-25 mcg/dose powder for inhalation 2021-06-21 Yes Silver Peterson U nknown Unknown folic acid 1 mg tablet folic acid 1 mg tablet 2021-06-21 Yes Silver Peterson Unknown Unknown glipiZIDE ER 2.5 mg tablet, extended release 24 hr gli piZIDE ER 2.5 mg tablet, extended release 24 hr 2021-06-21 Yes Silver Peterson Unknown Unkn own pantoprazole 40 mg tablet,delayed release pantoprazole 40 mg tablet,delayed release 2021-06-21 Yes Kristen,Silver Unknown Unknown raloxifene 60 mg tablet raloxifene 60 mg tablet 2021-06-21 Yes Kristen,Silver Unknown Unknown Acetaminophen Extra Strength 500 mg tablet Acetaminoph en Extra Strength 500 mg tablet 2021-06-21 Yes Krisetn,Silver Unknown Unknown oxygen oxygen 2021-06-21 Yes Kristen,Silver Unknown Unknown predniSONE 20 mg tablet predniSONE 20 mg tablet 2021-07-11 2021-07-20 Yes Kristen,Silver Unknown Unknown Vitamin D3 25 mcg (1,000 unit) tablet Vitamin D3 25 mcg (1,0 00 unit) tablet 2021-07-11 Yes Kristen,Silver Unknown Unknown furosemide 40 mg tablet furosemide 40 mg tablet 2021-07-11 Yes Kristen,Silver Unknown Unknown Protein Nutritional Shake oral liquid Protein Nutritional Sh sommer oral liquid 2021-07-20 Yes Kristen,Silver Unknown Unknown aspirin 325 mg tablet aspirin 325 mg tablet 2021-07-20 2021-07-27 Yes Kristen,Silver Unknown Unknown aspirin 325 mg tablet aspirin 325 mg tablet 2021-07-27 Yes A shraf,Silver Unknown Unknown Vital Signs Vital Name Observation Time Observation Value Comments SYSTOLIC mm[Hg] 2021-08-07 18:21:18 102 mm[Hg] mm[Hg] Method: Si t DIASTOLIC mm[Hg] 2021-08-07 18:21:18 54 mm[Hg] mm[Hg] Method: Si t PULSE 2021-08-07 18:21:18 100 /min /min RESP RATE 2021-08-07 18:21:18 18 /min /min TEMP 2021-08-07 18:21:18 97.6 [degF] Procedures This patient has no known procedures. Results This patient has no known results.
--- OUTSIDE RECORDS SUMMARY | 2021-08-10 08:43 | CCD ---
Author Author [facility] Organization [facility] Address Unknown Phone Unavailable Care Team Providers Care Supervisor [facility] Name Role Phone Toney, L Priscilla WATERSHED TENDER Unavailable Unavailable Toney, L Priscilla WATERSHED TENDER Unavailable Unavailable Toney, L Priscilla WATERSHED TENDER Unavailable Unavailable Toney, L Priscilla WATERSHED TENDER Unavailable Unavailable Toney, L Priscilla WATERSHED TENDER Unavailable Unavailable Toney, L Priscilla WATERSHED TENDER Unavailable Unavailable Toney, L Priscilla WATERSHED TENDER Unavailable Unavailable Toney, L Priscilla WATERSHED TENDER Unavailable Unavailable Toney, L Priscilla WATERSHED TENDER Unavailable Unavailable Toney, L Priscilla WATERSHED TENDER Unavailable Unavailable Toney, L Priscilla WATERSHED TENDER Unavailable Unavailable Toney, L Priscilla WATERSHED TENDER Unavailable Unavailable Toney, L Priscilla WATERSHED TENDER Unavailable Unavailable Toney, L Priscilla WATERSHED TENDER Unavailable Unavailable Toney, L Priscilla WATERSHED TENDER Unavailable Unavailable Toney, L Priscilla WATERSHED TENDER Unavailable Unavailable Toney, L Priscilla WATERSHED TENDER Unavailable Unavailable Toney, L Priscilla WATERSHED TENDER Unavailable Unavailable Toney, L Priscilla WATERSHED TENDER Unavailable Unavailable Toney, L Priscilla WATERSHED TENDER Unavailable Unavailable Toney, L Priscilla WATERSHED TENDER Unavailable Unavailable Toney, L Priscilla WATERSHED TENDER Unavailable Unavailable Toney, L Priscilla WATERSHED TENDER Unavailable Unavailable Toney, L Priscilla WATERSHED TENDER Unavailable Unavailable Toney, L Priscilla WATERSHED TENDER Unavailable Unavailable KIRSCHMAN, L DANYA WATERSHED TENDER Unavailable Unavailable KIRSCHMAN, L DANYA WATERSHED TENDER Unavailable Unavailable KIRSCHMAN, L DANYA WATERSHED TENDER Unavailable Unavailable KIRSCHMAN, L DANYA WATERSHED TENDER Unavailable Unavailable KIRSCHMAN, L DANYA WATERSHED TENDER Unavailable Unavailable KIRSCHMAN, L DANYA WATERSHED TENDER Unavailable Unavailable KIRSCHMAN, L DANYA WATERSHED TENDER Unavailable Unavailable KIRSCHMAN, L DANYA WATERSHED TENDER Unavailable Unavailable KIRSCHMAN, L DANYA WATERSHED TENDER Unavailable Unavailable KIRSCHMAN, L DANYA WATERSHED TENDER Unavailable Unavailable KIRSCHMAN, L DANYA WATERSHED TENDER Unavailable Unavailable KIRSCHMAN, L DANYA WATERSHED TENDER Unavailable Unavailable KIRSCHMAN, L DANYA WATERSHED TENDER Unavailable Unavailable KIRSCHMAN, L DANYA WATERSHED TENDER Unavailable Unavailable KIRSCHMAN, L DANYA WATERSHED TENDER Unavailable Unavailable KIRSCHMAN, L DANYA WATERSHED TENDER Unavailable Unavailable KIRSCHMAN, L DANYA WATERSHED TENDER Unavailable Unavailable KIRSCHMAN, L DANYA WATERSHED TENDER Unavailable Unavailable KIRSCHMAN, L DANYA WATERSHED TENDER Unavailable Unavailable KIRSCHMAN, L DANYA WATERSHED TENDER Unavailable Unavailable KIRSCHMAN, L DANYA WATERSHED TENDER Unavailable Unavailable KIRSCHMAN, L DANYA WATERSHED TENDER Unavailable Unavailable KIRSCHMAN, L DANYA WATERSHED TENDER Unavailable Unavailable KIRSCHMAN, L DANYA WATERSHED TENDER Unavailable Unavailable KIRSCHMAN, L DANYA WATERSHED TENDER Unavailable Unavailable KIRSCHMAN, L DANYA WATERSHED TENDER Unavailable Unavailable KIRSCHMAN, L DANYA WATERSHED TENDER Unavailable Unavailable KIRSCHMAN, L DANYA WATERSHED TENDER Unavailable Unavailable KIRSCHMAN, L DANYA WATERSHED TENDER Unavailable Unavailable KIRSCHMAN, L DANYA WATERSHED TENDER Unavailable Unavailable KIRSCHMAN, L DANYA WATERSHED TENDER Unavailable Unavailable KIRSCHMAN, L DANYA WATERSHED TENDER Unavailable Unavailable KIRSCHMAN, L DANYA WATERSHED TENDER Unavailable Unavailable KIRSCHMAN, L DANYA WATERSHED TENDER Unavailable Unavailable KIRSCHMAN, L DANYA WATERSHED TENDER Unavailable Unavailable KIRSCHMAN, L DANYA WATERSHED TENDER Unavailable Unavailable KIRSCHMAN, L DANYA WATERSHED TENDER Unavailable Unavailable KIRSCHMAN, L DANYA WATERSHED TENDER Unavailable Unavailable KIRSCHMAN, L DANYA WATERSHED TENDER Unavailable Unavailable KIRSCHMAN, L DANYA WATERSHED TENDER Unavailable Unavailable KIRSCHMAN, L DANYA WATERSHED TENDER Unavailable Unavailable KIRSCHMAN, L DANYA WATERSHED TENDER Unavailable Unavailable KIRSCHMAN, L DANYA WATERSHED TENDER Unavailable Unavailable KIRSCHMAN, L DANYA WATERSHED TENDER Unavailable Unavailable KIRSCHMAN, L DANYA WATERSHED TENDER Unavailable Unavailable KIRSCHMAN, L DANYA WATERSHED TENDER Unavailable Unavailable KIRSCHMAN, L DANYA WATERSHED TENDER Unavailable Unavailable Vy, P Khalid MD Unavailable Unavailable Vy, P Khalid MD Unavailable Unavailable Vy, P Khalid MD Unavailable Unavailable Vy, P Khalid MD Unavailable Unavailable Vy, P Khalid MD Unavailable Unavailable Vy, P Khalid MD Unavailable Unavailable Vy, P Khalid MD Unavailable Unavailable Vy, P Khalid MD Unavailable Unavailable Vy, P Khalid MD Unavailable Unavailable Vy, P Khalid MD Unavailable Unavailable Vy, P Khalid MD Unavailable Unavailable Vy, P Khalid MD Unavailable Unavailable Vy, P Khalid MD Unavailable Unavailable Vy, P Khalid MD Unavailable Unavailable Vy, P Khalid MD Unavailable Unavailable Vy, P Khalid MD Unavailable Unavailable Vy, P Khalid MD Unavailable Unavailable Vy, P Khalid MD Unavailable Unavailable Vy, P Khalid MD Unavailable Unavailable Vy, P Khalid MD Unavailable Unavailable Vy, P Khalid MD Unavailable Unavailable Vy, P Khalid MD Unavailable Unavailable Vy, P Khalid MD Unavailable Unavailable Vy, P Khalid MD Unavailable Unavailable Vy, P Khalid MD Unavailable Unavailable Vy, P Khalid MD Unavailable Unavailable Vy, P Khalid MD Unavailable Unavailable Vy, P Khalid MD Unavailable Unavailable Vy, P Khalid MD Unavailable Unavailable Vy, P Khalid MD Unavailable Unavailable Vy, P Khalid MD Unavailable Unavailable Vy, P Khalid MD Unavailable Unavailable Vy, P Khalid MD Unavailable Unavailable Vy, P Khalid MD Unavailable Unavailable Vy, P Khalid MD Unavailable Unavailable Vy, P Khalid MD Unavailable Unavailable Vy, P Khalid MD Unavailable Unavailable Vy, P Khalid MD Unavailable Unavailable Vy, P Khalid MD Unavailable Unavailable Vy, P Khalid MD Unavailable Unavailable Vy, P Khalid MD Unavailable Unavailable Vy, P Khalid MD Unavailable Unavailable Vy, Phong Mann MD Unavailable Unavailable Vy, Phong Mann MD Unavailable Unavailable Vy, Phong Mann MD Unavailable Unavailable Vy, Phong Mann MD Unavailable Unavailable Vy, Phong Mann MD Unavailable Unavailable Vy, Phong Mann MD Unavailable Unavailable Vy, Phong Mann MD Unavailable Unavailable Vy, Phong Mann MD Unavailable Unavailable Vy, Phong Mann MD Unavailable Unavailable Vy, Phong Mann MD Unavailable Unavailable Vy, Phong Mann MD Unavailable Unavailable Vy, Phong Mann MD Unavailable Unavailable Vy, Phong Mann MD Unavailable Unavailable Vy, Phong Mann MD Unavailable Unavailable Vy, P Mackenzie BUCHANAN Unavailable Unavailable Vy, Phong Mann MD Unavailable Unavailable [facility], [facility], PA-C Unavailable Unavailabl e Fish, [facility], PA-C Unavailable Unavailabl e Fish, [facility], PA-C Unavailable Unavailabl e Fish, [facility], PA-C Unavailable Unavailabl e Fish, [facility], PA-C Unavailable Unavailabl e Fish, [facility], PA-C Unavailable Unavailabl e Fish, [facility], PA-C Unavailable Unavailabl e Fish, [facility], PA-C Unavailable Unavailabl e Fish, [facility], PA-C Unavailable Unavailabl e Fish, [facility], PA-C Unavailable Unavailabl e Fish, [facility], PA-C Unavailable Unavailabl e Fish, [facility], PA-C Unavailable Unavailabl e Fish, [facility], PA-C Unavailable Unavailabl e Fish, [facility], PA-C Unavailable Unavailabl e Fish, [facility], PA-C Unavailable Unavailabl e Fish, [facility], PA-C Unavailable Unavailabl e Fish, [facility], PA-C Unavailable Unavailabl e Fish, [facility], PA-C Unavailable Unavailabl e Fish, [facility], PA-C Unavailable Unavailabl e Fish, [facility], PA-C Unavailable Unavailabl e Fish, Anitra Marly MPAS, PA-C Unavailable Unavailabl e Fish, [facility], PA-C Unavailable Unavailabl e Fish, [facility], PA-C Unavailable Unavailabl e Fish, [facility], PA-C Unavailable Unavailabl e Fish, [facility], PA-C Unavailable Unavailabl e Fish, [facility], PA-C Unavailable Unavailabl e Fish, [facility], PA-C Unavailable Unavailabl e Fish, [facility], PA-C Unavailable Unavailabl e Fish, [facility], PA-C Unavailable Unavailabl e Fish, [facility], PA-C Unavailable Unavailabl e Fish, [facility], PA-C Unavailable Unavailabl e Fish, [facility], PA-C Unavailable Unavailabl e Fish, [facility], PA-C Unavailable Unavailabl e Fish, [facility], PA-C Unavailable Unavailabl e Fish, [facility], PA-C Unavailable Unavailabl e Fish, [facility], PA-C Unavailable Unavailabl e KIRSCHMAN, L DANYA WATERSHED TENDER Unavailable Unavailable KIRSCHMAN, L DANYA WATERSHED TENDER Unavailable Unavailable KIRSCHMAN, L DANYA WATERSHED TENDER Unavailable Unavailable KIRSCHMAN, L DANYA WATERSHED TENDER Unavailable Unavailable KIRSCHMAN, L DANYA WATERSHED TENDER Unavailable Unavailable KIRSCHMAN, L DANYA WATERSHED TENDER Unavailable Unavailable KIRSCHMAN, L DANYA WATERSHED TENDER Unavailable Unavailable KIRSCHMAN, L DANYA WATERSHED TENDER Unavailable Unavailable KIRSCHMAN, L DANYA WATERSHED TENDER Unavailable Unavailable KIRSCHMAN, L DANYA WATERSHED TENDER Unavailable Unavailable KIRSCHMAN, L DANYA WATERSHED TENDER Unavailable Unavailable KIRSCHMAN, L DANYA WATERSHED TENDER Unavailable Unavailable KIRSCHMAN, L DANYA WATERSHED TENDER Unavailable Unavailable KIRSCHMAN, L DANYA WATERSHED TENDER Unavailable Unavailable KIRSCHMAN, L DANYA WATERSHED TENDER Unavailable Unavailable KIRSCHMAN, L DANYA WATERSHED TENDER Unavailable Unavailable KIRSCHMAN, L DANYA WATERSHED TENDER Unavailable Unavailable KIRSCHMAN, L DANYA WATERSHED TENDER Unavailable Unavailable KIRSCHMAN, L DANYA WATERSHED TENDER Unavailable Unavailable KIRSCHMAN, L DANYA WATERSHED TENDER Unavailable Unavailable KIRSCHMAN, L DANYA WATERSHED TENDER Unavailable Unavailable KIRSCHMAN, L DANYA WATERSHED TENDER Unavailable Unavailable KIRSCHMAN, L DANYA WATERSHED TENDER Unavailable Unavailable KIRSCHMAN, L DANYA WATERSHED TENDER Unavailable Unavailable KIRSCHMAN, L DANYA WATERSHED TENDER Unavailable Unavailable KIRSCHMAN, L DANYA WATERSHED TENDER Unavailable Unavailable KIRSCHMAN, L DANYA WATERSHED TENDER Unavailable Unavailable KIRSCHMAN, L DANYA WATERSHED TENDER Unavailable Unavailable KIRSCHMAN, L DANYA WATERSHED TENDER Unavailable Unavailable KIRSCHMAN, L DANYA WATERSHED TENDER Unavailable Unavailable KIRSCHMAN, L DANYA WATERSHED TENDER Unavailable Unavailable KIRSCHMAN, L DANYA WATERSHED TENDER Unavailable Unavailable KIRSCHMAN, L DANYA WATERSHED TENDER Unavailable Unavailable KIRSCHMAN, L DANYA WATERSHED TENDER Unavailable Unavailable KIRSCHMAN, L DANYA WATERSHED TENDER Unavailable Unavailable KIRSCHMAN, L DANYA WATERSHED TENDER Unavailable Unavailable KIRSCHMAN, L DNAYA WATERSHED TENDER Unavailable Unavailable KIRSCHMAN, L DANYA WATERSHED TENDER Unavailable Unavailable KIRSCHMAN, L DANYA WATERSHED TENDER Unavailable Unavailable KIRSCHMAN, L DANYA WATERSHED TENDER Unavailable Unavailable KIRSCHMAN, L DANYA WATERSHED TENDER Unavailable Unavailable KIRSCHMAN, L DANYA WATERSHED TENDER Unavailable Unavailable KIRSCHMAN, L DANYA WATERSHED TENDER Unavailable Unavailable KIRSCHMAN, L DANYA WATERSHED TENDER Unavailable Unavailable KIRSCHMAN, L DANYA WATERSHED TENDER Unavailable Unavailable KIRSCHMAN, L DANYA WATERSHED TENDER Unavailable Unavailable KIRSCHMAN, L DANYA WATERSHED TENDER Unavailable Unavailable Emelina CASH MD Unavailable Unavailable Emelina CASH MD Unavailable Unavailable Emelina CASH MD Unavailable Unavailable Emelina CASH MD Unavailable Unavailable Emelina CASH MD Unavailable Unavailable Emelina CASH MD Unavailable Unavailable Emelina CASH MD Unavailable Unavailable Emelina CASH MD Unavailable Unavailable Emelina CASH MD Unavailable Unavailable Emelina CASH MD Unavailable Unavailable Emelina CASH MD Unavailable Unavailable Emelina CASH MD Unavailable Unavailable Emelina CAHS MD Unavailable Unavailable Emelina CASH MD Unavailable Unavailable Emelina CASH MD Unavailable Unavailable Emelina CASH MD Unavailable Unavailable Emelina CASH MD Unavailable Unavailable Emelina CASH MD Unavailable Unavailable Emelina CASH MD Unavailable Unavailable Emelina CASH MD Unavailable Unavailable RAYRAY PETERSON MD Unavailable Unavailable RAYRAY PETERSON MD Unavailable Unavailable RAYRAY PETERSON MD Unavailable Unavailable RAYRAY PETERSON MD Unavailable Unavailable REY, MAQBOOL SILVER MD [...] Unavailable REY, MAQBOOL SILVER MD Unavailable Unavailable KUNEUN, MERRY VARGAS MD Unavailable Unavailable BROOKS, MERRY VARGAS MD Unavailable Unavailable BROOKS, MERRY VARGAS MD Unavailable Unavailable Ali, Haider BUCHANAN Unavailable [...] Unavailable Ali, Haider BUCHANAN Unavailable Unavailable Ali, aHider BUCHANAN Unavailable Unavailable Ali, Haider BUCHANAN Unavailable [...] Unavailable Unavailable Ali, Haider MD Unavailable Unavailable REY, MAQBOOL SILVER MD [...] Unavailable REY, MAQBOOL SILVER MD Unavailable Unavailable RYE, MAQBOOL SILVER MD Unavailable Unavailable REY, MAQBOOL SILVER MD Unavailable Unavailable REY, MAQBOOL SILVER MD Unavailable Unavailable REY, MAQBOOL SILVER MD Unavailable Unavailable REY, MAQBOOL SILVER MD Unavailable Unavailable REY, MAQBOOL SILVER MD Unavailable Unavailable REY, MAQBOOL SILVER MD Unavailable Unavailable REY, MAQBOOL SILVER MD Unavailable Unavailable TURRIN, CHIOMA Unavailable Unavailable TURRIN, CHIOMA Unavailable Unavailable TURRIN, CHIOMA Unavailable Unavailable TURRIN, CHIOMA Unavailable Unavailable SEMEL, Marianela HELMS MD Unavailable [...] SEMEL, Marianela HELMS MD Unavailable Unavailable SEMEL, A SCOOTER MD Unavailable Unavailable SEMEL, A SCOOTER MD Unavailable Unavailable SEMEL, A SCOOTER MD Unavailable Unavailable SEMEL, A SCOOTER MD Unavailable Unavailable SEMEL, A SCOOTER MD Unavailable Unavailable SEMEL, A SCOOTER MD Unavailable Unavailable SEMEL, A SCOOTER MD Unavailable Unavailable SEMEL, A SCOOTER MD Unavailable Unavailable SEMEL, A SCOOTER MD Unavailable Unavailable SEMEL, A SCOOTER MD Unavailable Unavailable SEMEL, A SCOOTER MD Unavailable Unavailable SEMEL, A SCOOTER MD Unavailable Unavailable SEMEL, A SCOOTER MD Unavailable Unavailable SEMEL, A SCOOTER MD Unavailable Unavailable SEMEL, A SCOOTER MD Unavailable Unavailable SEMEL, A SCOOTER MD Unavailable Unavailable SEMEL, A SCOOTER MD Unavailable Unavailable SEMEL, A SCOOTER MD Unavailable Unavailable SEMEL, A SCOOTER MD Unavailable Unavailable SEMEL, A SCOOTER MD Unavailable Unavailable SEMEL, A SCOOTER MD Unavailable Unavailable SEMEL, A SCOOTER MD Unavailable Unavailable SEMEL, A SCOOTER MD Unavailable Unavailable SEMEL, A SCOOTER MD Unavailable Unavailable SEMEL, A SCOOTER MD Unavailable Unavailable SEMEL, A SCOOTER MD Unavailable Unavailable SEMEL, A SCOOTER MD Unavailable Unavailable SEMEL, A SCOOTER MD Unavailable Unavailable SEMEL, A SCOOTER MD Unavailable Unavailable SEMEL, A SCOOTER MD Unavailable Unavailable SEMEL, A SCOOTER MD Unavailable Unavailable SEMEL, A SCOOTER MD Unavailable Unavailable SEMEL, A SCOOTER MD Unavailable Unavailable SEMEL, A SCOOTER MD Unavailable Unavailable Re-disclosure Warning The records [...] is protected by Article 27-F of the [facility] Public Health law. If you continue you may have access to information: Regarding HIV / AIDS; Provided by facilities licensed or operated by the [facility] Office of Mental Health; or Provided by the [facility] Office for People With Developmental Disabilities. If such information is present, then the following [facility] mandated warning applies: This information has [...] law may result in a fine or prison sentence or both. A general authorization for the release of medical or other information is NOT sufficient authorization for further disc losure. Allergies and Adverse Reactions Type Description Substance Reaction Status Data Source(s ) Unknown phenytoin Phenytoin Reaction Unknown [facility] ([facility]) Unknown oxycodone Oxycodone Reaction Unknown [facility] ([facility]) Unknown gabapentin gabapentin Reaction Unknown [facility] ([facility]) Unknown codeine Codeine Reaction Unknown [facility] ([facility]) Drug allergy DILANTIN DILANTIN STOMACH PAIN [facility] Drug allergy CODEINE CODEINE STOMACH PAIN [facility] Family History Family Member Name Family Member Gender Family Member Status Date o f Status Description Data Source(s) Unknown Male Problem [facility] ([facility]) () - in neck Unknown Female Problem [facility] ([facility]) Unknown Female Problem [facility] ([facility]) Unknown Female Problem [facility] ([facility]) Unknown Female Problem [facility] ([facility]) Unknown Female Problem [facility] ([facility]) Encounters Encounter Providers Location Date Indications Data Source(s ) O Attender: SILVER PETERSON MDConsultant: Mackenzie johnson MD 06/21/2021 12:00:00 AM EDT NDOC ([facility]) Patient admitted. Outpatient Attender: SAM Neff/Patricia/Damon/Sharona indl 06/12/2021 09:00:00 AM EDT MED[facility] ([facility]) Office Visit Attender: Marly MIKE PA-C Physical Therapy 06/01/2021 05:15:00 PM EDT MED[facility] ([facility]) Office Visit Attender: Marly MIKE PA-C Physical Therapy 05/25/2021 09:45:00 AM EDT MED[facility] ([facility]) OFFICE OUTPATIENT VISIT 15 MINUTES Attender: Marly MIKE PA-C Physical Therapy 05/09/2021 10:15:00 AM EDT MED[facility] ([facility]) Outpatient Attender: Priscilla Neff/Patricia/Damon/Reindaly 04/17/2021 10:00:00 AM EDT MED[facility] ([facility]) Emergency Attender: FARRUKH CASH MDConsultant: DANYA STONE WATERSHED TENDER 04/12/2021 11:40:00 AM EDT - 04/12/2021 03:47:00 PM EDT [facility] Patient discharged. Outpatient Attender: SCOOTER QUINONES MD Main Office 03/23/2021 02:45:0 0 PM EDT MED[facility] ([facility]) Outpatient Referrer: SCOOTER QUINONES MD 2021 11:21:22 AM EDT [facility] Office Visit Attender: Haider Sommer MD Main office - [place] 01/03/2021 02:15:00 PM EDT MEDENT ([facility]) Outpatient Attender: Haider Sommer MDConsultant: DANYA WATERMAN WATERSHED TENDER 12/18/2020 10:38:00 AM EDT - 12/18/2020 11:38:00 AM EDT [facility] Patient discharged. Emergency Attender: CHIOMA BLACKBURNConsultant: DANYA STONE NP 11/27/2020 03:26:00 PM EDT - 11/27/2020 05:44:00 PM EDT [facility] Patient discharged. Outpatient Attender: Marly MIEK PA-C Physical Therapy 11/16/2020 10:15:00 AM EST [facility] ([facility]) Outpatient Attender: Haider Sommer MD Main office - [place] 11/16/2020 08:30:00 AM EST [facility] ([facility]) Outpatient Attender: DANYA JETT NP [facility] 09:30:00 AM EST [facility] ([facility]) Outpatient Attender: SILVER PETERSON MDConsultant: DANYA STONE WATERSHED TENDER 09/12/2020 01:20:00 PM EST - 09/12/2020 02:20:00 PM [facility] Outpatient Attender: SILVER PETERSON MDConsultant: DANYA STONE WATERSHED TENDER 08/09/2020 02:27:00 PM EST - 08/09/2020 03:27:00 PM [facility] Outpatient Attender: SILVER PETERSON MD [facility] 08/09 12:30:00 PM EST [facility] ([facility]) Outpatient Attender: DANYA JETT NP [facility] 09:15:00 AM EST [facility] ([facility]) Outpatient Attender: SILVER PETERSON MD [facility] 06/28 02:00:00 PM EDT [facility] ([facility]) Inpatient Attender: SILVER PETERSON MDConsultant: DANYA STONE WATERSHED TENDER 05/28/2020 12:30:00 PM EDT - 06/13/2020 11:02:00 AM EDT [facility] Patient discharged. Immunizations Vaccine Date Status Description Data Source(s) COVID-19 VACCINE Connor 11/22/2020 12:00:00 AM EDT completed [facility] Vaccine Series Complete: YESThis Data wa s Submitted to [facility] Via [employer]. Medications Medication Brand Name Start Date Product Form Dose Route Admi nistrative Instructions Pharmacy Instructions Status Indications Reaction Description Data Source(s) 2 ML Sodium Hyaluronate 10 MG/ML Prefilled Syringe [Euflexxa ] Euflexxa 05/25/2021 12:00:00 AM EDT active MEDENT ([facility]) 30 ACTUAT fluticasone furoate 0.2 MG/ACT UAT / vilanterol 0.025 MG/ACTUAT Dry Powder Inhaler [Breo] Breo Ellipta 04/17/2021 12:00:00 AM EDT OR AL active MEDENT ([facility]) Accu-Chek Gisele Plus 03/21/2021 12:00:00 AM EDT active MED[facility] ([facility]) Lidocaine 0.05 MG/MG Topical Ointment Lidocaine 12/12/2020 12:00:00 AM EDT active MED[facility] ([facility]) Covid-19 vaccine, Unspecified 11/22/2020 12:00:00 AM EDT completed [facility] ([facility] ) Medication administered onsite sacubitril 24 MG / valsartan 26 MG Oral Tablet [Entresto] En tresto 11/01/2020 12:00:00 AM EST active M EDENT ([facility]) Calcitriol 0.00216 MG Oral Capsule Calcitriol 09/12/2020 12:00:[address] active [facility] ([facility]) Allopurinol 100 MG Oral Tablet Allopurinol 09/12/2020 12:00:00 AM EST active [facility] ([facility]) Methylprednisolone Methylprednisolone 08/01/2020 12:00:00 AM EST completed [facility] ([facility]) Insurance Providers Payer name Policy type / Coverage type Policy ID Covered green party ID Covered green party's relationship to vanec Policy Vance Plan Information [place]hi FHP-(DO Not Use) Medigap Part B [id number] Self 0 [id number] [place] FHP-(DO Not Use) Medigap Part B [id number] Self 0 [id number] [place] FHP-(DO Not Use) Medigap Part B [id number] Self 0 [id number] [place] FHP-(DO Not Use) Medigap Part B [id number] Self 0 [id number] [place] FHP-(DO Not Use) Medigap Part B [id number] Self 0 [id number] [place] FHP-(DO Not Use) Medigap Part B [id number] Self [place] FHP-(DO Not Use) Medigap Part B [id number] Self 0 [id number] UHC UNITED MEDICARE COMPLETE G [id number] Self [id number] MEDICARE [id number] [facility] [id number] Medicare [place] B [id number] Self 0 [id number] [place] [id number] Self [id number] [place] B [id number] Self [place] Med[place] B [id number] Self Medicare [place] Med[place] B [id number] Self 0 [id number] [place] Med[place] Part B [id number] Self 0 [id number] [place] Med[place] B [id number] Self 0 [id number] [place] Med[place] B [id number] Self 0 [id number] [place] Med[place] Part B [id number] Self 0 [id number] Medicare Advantage Medigap Part B [id number] Self [id number] Medicare Advantage Medigap Part B [id number] Self UHC UNITED MEDICARE COMPLETE G [id number] Self [id number] [facility] [id number] Self [id number] [facility] [facility]) [facility] [id number] Self [id number] [facility] ([facility]) Commercial [id number] Self [id number] [facility] ([facility]) [facility] [id number] Self [id number] [facility] ([facility]) Commercial [id number] Self [id number] [facility] ([facility]) Commercial [id number] Self [id number] [employer] [id number] SP [id number] AMER PROG [employer] G [id number] Self [id number] WELLCARE [id number] SP [id number] WELLCARE [id number] SP [id number] WELLCARE [id number] SP [id number] WELLCARE MEDICARE [id number] Mahsa [id number] WELLCARE MEDICARE [id number] Mahsa [id number] WELLCARE MEDICARE [id number] xxxxxxxxx [id number] INSURANCE COVID-19 COVID Mahsa C OVID [employer] Commercial [id number] Self [id number] [facility] [id number] SP [id number] [employer] [id number] 18 [id number] [employer] Commercial [id number] Self [id number] [employer]ION -O/P [id number] 18 [id number] [employer] Commercial [id number] Self [id number] MEDICARE COMPLETE [id number] SP [id number] [employer] [id number] SP [id number] WELLCARE [id number] SP [id number] WELLCARE O [id number] S [id number] MEDICARE COMPLETE [id number] SP [id number] MEDICARE COMPLETE-UHC O [id number] S [id number] INSURANCE COVID-19 [id number] [id number] INSURANCE COVID-19 COVID Mahsa C OVID MEDICARE [id number] SP [id number] A INSURANCE COVID-19 COVID Mahsa C OVID [facility] MEDICARE -CLINIC [id number] 18 [id number] [employer]/UNHC MEDICARE-O/P [id number] 18 [id number] MEDICARE [id number] SP [id number] [employer]IONS [id number] SP [id number] MEDICARE COMPLETE-UHC O [id number] S [id number] MEDICARE COMPLETE-UHC O [id number] S [id number] WELLCARE -I/P [id number] 18 [id number] WELLCARE - SWING [id number] 18 [id number] WELLCARE -O/P [id number] 18 [id number] MEDICARE [id number] SP [id number] [facility]) Commercial [id number] Self MEDICARE UNAVAILABLE SP UNAVAILA BLE OTHER LIABILITY O [id number] O [id number] OTHER LIABILITY [id number] SP [id number] SECURE H[employer]IZONS O [id number] S [id number] MEDICARE COMPLETE [id number] SP [id number] EVERCARE [id number] SP [id number] [employer] [id number] SP [id number] SECURE HORIZONS [id number] SP [id number] MEDICARE [id number] SP [id number] A [employer] [id number] SP [id number] [employer] [id number] SP [id number] TOD[employer] OPTIONS [id number] SP [id number] MEDICARE PART A SHADOW BILLING [id number] 18 [id number] SEC[employer] UNHC MEDICARE -PHYSICIAN [id number] 18 [id number] SECURE [employer]IZONS/UNHC MEDICARE- [id number] 18 [id number] [facility]) P [id number] S [id number] UNHC AMERICHOICE XIX -HMO [id number] 18 [id number] MEDICARE COMPLETE-[facility] P [id number] S [id number] [employer] Commercial [id number] Self [id number] A [employer] OPTIONS/BRUNEIAN O [id number] S [id number] [employer] MCR -I/P [id number] 18 [id number] MEDICARE PART A SHADOW BILLING [id number] 18 [id number] [employer] MCR [id number] Problems, Conditions, and Diagnoses Code Display Name Description Problem Type Effective Dates Data Source(s) Z95.0 Presence of cardiac pacemaker Presence of cardiac pace maker Diagnosis 06/21/2021 12:00:00 AM EDT [facility] ([facility]) Z66 Do not resuscitate Do not resuscitate Diagnosis 12:00:00 AM EDT [facility] ([facility]) M10.9 Gout, unspecified Gout, unspecified Diagnosis 06/21/2021 12:00:00 AM EDT [facility] ([facility]) E78.5 Hyperlipidemia, unspecified Hyperlipidemia, unspecifie d Diagnosis 06/21/2021 12:00:00 AM EDT [facility] ([facility]) K21.9 Gastro-esophageal reflux disease without esophagitis Gastro-esophageal reflux disease without esophagitis Diagnosis 06/21/2021 12:00:00 AM ED T [facility] ([facility]) F17.200 Nicotine dependence, unspecified, uncomp licated Nicotine dependence, unspecified, uncomplicated Diagnosis 06/21/2021 12:00:00 AM EDT [facility] ( [facility]) G47.33 Obstructive sleep apnea (adult) (pediatr ic) Obstructive sleep apnea (adult) (pediatric) Diagnosis 06/21/2021 12:00:00 AM EDT [facility] ([facility]) Z68.31 Body mass index (BMI) 31.0-31.9, adult B ashley mass index [BMI] 31.0-31.9, adult Diagnosis 06/21/2021 12:00:00 AM EDT [facility] ([facility]) E66.9 Obesity, unspecified Obesity, unspecified Diagnosis 06/21/2021 12:00:00 AM EDT [facility] ([facility]) D63.1 Anemia in chronic kidney disease Anemia in chron ic kidney disease Diagnosis 06/21/2021 12:00:00 AM EDT [facility] ([facility] ) N25.81 Secondary hyperparathyroidism of renal o rigin Secondary hyperparathyroidism of renal origin Diagnosis 06/21/2021 12:00:00 AM E DT [facility] ([facility]) I25.10 Atherosclerotic heart diseas e of [place] coronary artery without angina pectoris Atherosclerotic heart disease of [place] coronary artery without angina pectoris Diagnosis 06/21/2021 12:00:00 AM EDT [facility] ([facility]) J96.21 Acute and chronic respiratory failure wi th hypoxia Acute and chronic respiratory failure with hypoxia Diagnosis 06/21/2021 12:00:00 AM EDT [facility] ([facility]) B97.4 Respiratory syncytial virus as the cause of diseases classified elsewhere Respiratory syncytial virus as the cause of diseases classified elsewhere Diagnosis 06/21/2021 12:00:00 AM EDT [facility] ([facility] ) J06.9 Acute upper respiratory infection, unspe cified Acute upper respiratory infection, unspecified Diagnosis 06/21/2021 12:00:00 AM EDT [facility] ([facility]) J15.4 Pneumonia due to other streptococci Pneumonia du e to other streptococci Diagnosis 06/21/2021 12:00:00 AM EDT [facility] ([facility] ) J44.0 Chronic obstructive pulmonar y disease with acute lower respiratory infection Chronic obstructive pulmonary disease wi th (acute) lower respiratory infection Diagnosis 06/21/2021 12:00:00 AM EDT [facility] (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 Diagnosis 06/21/2021 12:00:00 AM EDT [facility] ([facility]) I50.33 Acute on chronic diastolic (congestive) heart failure Acute on chronic diastolic (congestive) heart failure Diagnosis 06/21/2021 12:00:00 AM EDT [facility] ([facility]) 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, or end stage renal disease Hypertensive heart and chronic kidney disease with heart failure and with stage 5 chronic kidney disease, or end stage renal disease Diagnosis 06/21/2021 12:00:00 AM E DT [facility] ([facility]) 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 Di agnosis 06/21/2021 12:00:00 AM EDT [facility] ([facility]) X96100 Personal history of nicotine dependence Personal history of nicotine dependence Diagnosis 04/12/2021 11:40:00 AM [facility] Z8701 Personal history of pneumonia (recurrent ) Personal history of pneumonia (recurrent) Diagnosis 04/12/2021 11:40:00 AM 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 Other cervical disc displacement at C6-C7 level Diagnosis 12/18/2020 10:38:00 AM EDT [facility] 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, 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, cervical region Diagnosis 12/18/2020 10:38:00 AM EDT [facility] R2681 Unsteadiness on feet Unsteadiness on feet Diagnosis 12/18/2020 10:38:00 AM EDT [facility] G4089 Other seizures Other seizures Diagnosis 12/18/2020 10:38: 00 AM EDT [facility] G250 Essential tremor Essential tremor Diagnosis 12/18/2020 10 :38:00 AM EDT [facility] F16354 Unspecified place in unspeci fied non-institutional (private) residence as the place of occurrence of the external cause Unspecified place in unspecified non-institutional (private) residence as the place of occurrence of the external cause Diagnosis 11/27/2020 03:26:00 PM EDT [facility] R147EGA Fall on same level from slip ping, tripping and stumbling without subsequent striking against object, initial encounter Fall on same level from slipping, tripping and stumbling without subsequent striking against object, initial encounter Diagnosis 11/27/2020 03:26:00 PM EDT [facility] X8680PJ Contusion of left hip, initial encounter Contusion of left hip, initial encounter Diagnosis 11/27/2020 03:26:00 PM EDT [facility] [id number] Contusion of right knee, initial encount er Contusion of right knee, initial encounter Diagnosis 11/27/2020 03:26:00 PM EDT [facility] J181 Lobar pneumonia, unspecified organism Lo bar pneumonia, unspecified organism Diagnosis 11/27/2020 03:26:00 PM EDT [facility] [id number] Contusion of left front wall of thorax, initial encounter Contusion of left front wall of thorax, initial encounter Diagnosis 03:26:00 PM EDT [facility] U543CJG Unspecified injury of thorax, initial en counter Unspecified injury of thorax, initial encounter Diagnosis 11/27/2020 03:26:00 PM EDT [facility] 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, lumbar region Unspecified inflammatory spondylopathy, lumbar region Diagnosis 09/12/2020 01:20:0 0 PM [facility] [id number] Unspecified injury of left elbow, initia l encounter Unspecified injury of left elbow, initial encounter Diagnosis 09/12/2020 01:20:00 PM [facility] J6993ZJ Unspecified injury of lower back, initia l encounter Unspecified injury of lower back, initial encounter Diagnosis 09/12/2020 01:20:00 PM [facility] D649 Anemia, unspecified Anemia, unspecified Diagnosis 0 09/12/2020 01:20:00 PM [facility] E8342 Hypomagnesemia Hypomagnesemia Diagnosis 08/09/2020 02:27: 00 PM [facility] I509 Heart failure, unspecified Heart failure, unspecified Diagnosis 08/09/2020 02:27:00 PM [facility] Z87.891 Ex-smoker Ex-smoker Problem 04/17/2021 12:00:00 AM ED T [facility] ([facility], ) J96.12 Chronic hypercapnic respiratory failure Chronic hypercapnic respiratory failure Problem 04/17/2021 12:00:00 AM EDT [facility] ([facility], ) 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 Problem 11/16/2020 12:00:00 AM EST [facility] ([facility], ) R26.81 Abnormal gait Abnormal gait Problem 11/16/2020 12:00:00 AM EST [facility] ([facility], ) G25.0 Essential tremor Essential tremor Problem 11/16/2020 12 :00:00 AM EST [facility] ([facility] ) Surgeries/Procedures Procedure Description Date Indications Data Source(s) Insertion Of Tunneled Centrally Inserted Central Venous Cath eter 06/12/2021 12:00:00 AM EDT [facility] ([facility]) Ultrasound Guidance For Vascular Access Requiring Ultrasound Eval 06/12/2021 12:00:00 AM [facility] Fluoroscopic Guidance For Central Venous Access Device Place ment 06/12/2021 12:00:00 AM EDT [facility] ([facility]) [facility]/DAY 25 MINUTES 06/12/2021 12:00:00 AM EDT [facility] ([facility], ) ARTHROCENTESIS ASPIR&/INJECTION MAJOR JT/BURSA 021 12:00:00 AM EDT [facility] ([facility] ) ARTHROCENTESIS ASPIR&/INJECTION MAJOR JT/BURSA 021 12:00:00 AM EDT [facility] ([facility]) ARTHROCENTESIS ASPIR&/INJECTION MAJOR JT/BURSA 021 12:00:00 AM EDT [facility] ([facility] ) OFFICE OUTPATIENT VISIT 15 MINUTES 05/09/2021 12:00:00 AM EDT [facility] ([facility]) DEMO&/EVAL OF PT UTILIZ AERSL GEN/NEB/INHLR/IPPB 04/17 12:00:00 AM EDT [facility] ([facility]) OFFICE OUTPATIENT NEW 45 MINUTES 04/17/2021 12:00:00 A M EDT [facility] ([facility]) ELECTROENCEPHALOGRAM W/REC AWAKE&ASLEEP 01/08/2021 12: 00:00 AM EDT [facility] ([facility], ) ELECTROENCEPHALOGRAM W/REC AWAKE&ASLEEP 01/08/2021 12: 00:00 AM EDT [facility] 2020 12:00:00 AM EDT [facility] ([facility]) ARTHROCENTESIS ASPIR&/INJECTION MAJOR JT/BURSA 021 12:00:00 AM EST [facility] ([facility]) RADIOLOGIC EXAM KNEE COMPLETE 4/MORE VIEWS 11/16/2020 12:00:00 AM EST [facility] ([facility]) OFFICE OUTPATIENT VISIT 25 MINUTES 11/16/2020 12:00:00 AM EST [facility] ([facility]) ECG ROUTINE ECG W/LEAST 12 LDS W/I&R [...] 12:00:00 AM EDT [facility] ([facility]) Results ID Date Data Source [id number] 07/05/2021 02:07:00 AM EDT [facility] Name Value Range Interpretation Code Description Data Ro rce(s) Supporting Document(s) SARS-CoV-2 (COVID 19) NEGATIVE - SARS-CoV-2 (COVID19) [facility] This lab was ordered by [facility] a nd reported by [facility]. ID Date Data Source [id number] 06/13/2021 08:25:00 AM EDT [facility] Name Value Range Interpretation Code Description Data Ro rce(s) Supporting Document(s) SARS coronavirus 2 RNA [Presence] in Res piratory specimen by AMARA with probe detection POSITIVE [facility] This lab was ordered by [facility] a nd reported by [facility]. ID Date Data Source [id number] 06/09/2021 04:08:00 AM EDT [facility] Name Value Range Interpretation Code Description Data Ro rce(s) Supporting Document(s) SARS coronavirus 2 RNA [Presence] in Res piratory specimen by AMARA with probe detection NEGATIVE [facility] This lab was ordered by [facility] a nd reported by [facility]. ID Date Data Source [id number] 06/08/2021 11:44:00 PM EDT [facility] ([facility] [...] (Silver Peterson MD) ID Date Data Source [id number] 06/08/2021 07:51:00 PM EDT [facility] Name Value Range Interpretation Code Description Data Ro rce(s) Supporting Document(s) SARS-CoV-2 (COVID 19) NEGATIVE - [facility]) [facility] was ordered by [facility] a nd reported by [facility]. ID Date Data Source [id number] 04/12/2021 11:40:00 AM EDT [facility] 1 OrderSheet [facility] Emergency Department [address] [place] [address] Phone #: ext- [phone] 04/12/2021 11:39 Patient: DONALD ARMANDO Sex: F : 1945 Age: 76yWEIGHT:84.8 kg (M) HEIGHT:63 inches (S) BMI:33.1ALLERGIES: Codeine, DilantinCHIDEB COMPLAINT: coughDIAGNOSIS: Chronic obstructive lung diseaseLAB ORDERSOrder [...] Whalen RN P.A.-C;Urinalysis (Clean STAT 12:04/12/2021 13:45 Kaelyn) Luis Whalen RN P.A.-C;COVID-19 CAH STAT 12:04/12/2021 12:19 Osmar(Symptomatic as Luis Whalen RNDefined by CDC) P.A.-C;([id number]) 2 OrderSheet [facility] Emergency Department [address] [place] [address] Phone #: ext- [phone] 04/12/2021 11:39 Patient: DONALD ARMANDO Sex: F : 1945 Age: 76y(Unknown if [...] Dose: 125 Luis Whalen RN 3 OrderSheet [facility] Emergency Department [address] [place] [address] Phone #: ext- [phone] 04/12/2021 11:39 Patient: DONALD ARMANDO Sex: F : 1945 Age: 76ymg (X1) P.A.-C;GENERAL ORDERSOrder Description Priority Entered Acknowledged InitialedBlood Pressure 12:17 04/12/2021 12:19 Marcellus Whalen RN P.A.-C;Instantizer Operator 12:17 04/12/2021 12:19 Osmar(continuous) Luis Whalen RN P.A.-C;EKG 12:17 04/12/2021 12:27 Chari Wooten dice spotterDamaso P.A.-C; Gpam0XOB 12:17 04/12/2021 12:19 Osmar Whalen RN P.A.-C;Obtain Old EKG 12:17 04/12/2021 12:19 Osmar Whalen RN P.A.-C;Obtain Old Records 12:17 04/12/2021 12:19 Osmar Whalen RN P.A.-C;Oxygen titrate to 12:17 04/12/2021 12:19 Osmar92Orlando Whalen RN P.A.-C;Pulse oximeter 12:17 04/12/2021 12:19 Osmar(Continuous) Luis Whalen RN P.A.-C;Saline Lock 12:17 04/12/2021 12:34 Osmar Whalen RN P.A.-C;Vitals 12:17 04/12/2021 12:19 Osmar Whalen RN P.A.-C;Oxygen (3 L/min) 12:17 04/12/2021 12:19 Osmar(GAB) (Titrate to O2 Luis Whalen RNSat >92%) P.ARosey-C;-- (Ambulation oO2 14:54 04/12/2021 15:04 Petersat. ) Luis Whalen RN P.A.-C;[Electronically signed by Osmar Whalen RN (15:46 04/12/2021)][Electronically signed by Luis Wooten P.A.-C (23:23 04/12/2021)] 4 OrderSheet [facility] Emergency Department [address] [place] [address] Phone #: ext- [phone] 04/12/2021 11:39 Patient: DONALD ARMANDO Sex: F : 1945 Age: 76y[Electronically locked by Osmar Whalen RN (15:46 04/12/2021)] Name Value Range Interpretation Code Description Data Ro rce(s) Supporting Document(s) ID Date Data Source [id number] 04/12/2021 11:40:00 AM EDT [facility] 1 Medication Reconciliation Report [facility] Emergency Department [address] [place] [address] Phone #: ext- [phone] 04/12/2021 11:39 Patient: [...] Oral 50mcg, daily 2 Medication Reconciliation Report [facility] Emergency Department [address] [place] [address] Phone #: ext- [phone] 04/12/2021 11:39 Patient: DONALD ARMANDO Sex: F [...] -- Dispense 5 tablet. Refills: 0.Substitution permitted.Pharmacy - [facility] #[id number] - [address], [place] [id number]. .azithromycin 250 mg tablet Take 2 tablet single dose for 1 days -- Take 2 tabs by mouth and day 1`andthen 1 tab by mouth for days 2-5. Dispense 6 tablet. Refills: 0. Substitution permitted.Pharmacy - [facility] #[id number] - [address], [place] [id number]. . -- Luis Wooten P.A.-C Name Value Range Interpretation Code Description Data Ro rce(s) Supporting Document(s) ID Date Data Source [id number] 04/12/2021 11:40:00 AM EDT [place] [address] Medication Administration Record [facility] Emergency Department [address] [place] [address] Phone #: ext- [phone] 04/12/2021 11:39 Patient: DONALD ARMANDO Sex: F [...] rce(s) Supporting Document(s) ID Date Data Source [id number] 04/12/2021 11:40:00 AM EDT [facility] 1 General Instructions [facility] Emergency Department [address] [place] [address] Phone #: ext- [phone] 04/12/2021 11:39 [facility]: [id number] Sex[facility] F : 1945 Age: 76yAcute exacerbation [...] days -- Dispense 5 tablet. Refills: 0.Substitution permitted.[facility] #[id number] - [address] [place] [id number]. .azithromycin 250 mg tablet Take 2 tablet single dose for 1 days -- Take 2 tabs by mouth and day 1`andthen 1 tab by mouth for days 2-5. Dispense 6 tablet. Refills: 0. Substitution permitted.[facility] #[id number] - [address], [place] [phone]. .Follow-up:Return to the emergency department as needed. Follow up with your healthcare provider in about twodays if not better. Call for an appointment. Follow up with a parts advisor and truer pinion and wheel as scheduled.Understanding of the discharge instructions verbalized by patient. ADDITIONAL INFORMATIONCOPD Flare 2 General Instructions [facility] Emergency Department [address] [place] [address] Phone #: ext- [phone] 04/12/2021 11:39 Patient: [...] of a different color 3 General Instructions [facility] Emergency Department [address] [place] [address] Phone #: ext- [phone] 04/12/2021 11:39 Patient: [...] the infection has cleared. 4 General Instructions [facility] Emergency Department [address] [place] [address] Phone #: ext- [phone] 04/12/2021 11:39 Patient: DONALD ARMANDO Sex: F : 1945 Age: 76y If [...] and fish, and low-fat dairy products.Preventing a nndpi-vkGzjhu-wbf happen. But the best way to treat [...] stay inside when possible. 5 General Instructions [facility] Emergency Department [address] [place] [address] Phone #: ext- [phone] 04/12/2021 11:39 Patient: [facility]AL[id number] Sex: F : 1945 Age: 76y Try [...] your healthcare provider about your ability to: [place] in your normal environment Correctly use inhaler (or your medicine delivery systems) [place] with other conditions you have and their [...] or bloody mucus (sputum) 6 General Instructions [facility] Emergency Department [address] [place] [address] Phone #: ext- [phone] 04/12/2021 11:39 Patient: DONALD ARMANDO Sex: F : 1945 Age: 76y You don't start to get better within 24 hours Swelling of your ankles gets worse Weakness [id number] [employer]. [address] [place] [address]. All rights reserved. This information is not [...] low-grade fever. Bronchitis usually 7 General Instructions [facility] Emergency Department [address] [place] [address] Phone #: ext- [phone] 04/12/2021 11:39 Patient: DONALD ARMANDO Sex: F : 1945 Age: 76ylasts 9 [...] away from secondhand smoke. You may use yqka-uqb-cewakzm medicines to control fever or pain, unless [...] loosen mucus in your nose and lungs. Lord-xsb-qhvskbo cough, cold, and sore-throat medicines will not [...] Coughing up more sputum 8 General Instructions [facility] Emergency Department [address] [place] [address] Phone #: ext- [phone] 04/12/2021 11:39 Patient: DONALD ARMANDO Sex: F : 1945 Age: 76y Weakness, drowsiness, headache, facial pain, ear pain, or a stiff neckCall 911Call 911 if any of these occur. Coughing up blood Weakness, drowsiness, headache, or stiff neck that get worse Trouble breathing, wheezing, or pain with breathing 1697-[address] [employer]. [address] [place] [address]. All rights reserved. This information is not intended as asubstitute for professional medical care. Always follow your healthcare professional's instructions. You have been given the following additional information: COPD Flare Bronchitis, Antibiotic Treatment (Adult)(Electronically signed by Luis Wooten P.A.-C 04/12/2021 23:23) Name Value Range Interpretation Code Description Data Ro rce(s) Supporting Document(s) ID Date Data Source [id number] 04/12/2021 11:40:00 AM EDT [facility] 1 Clinical Report - Nurses [facility] Emergency Department [address] [place] [address] Phone #: [phone]- [phone] 04/12/2021 11:39 Patient: DONALD ARMANDO Sex: F [...] and was sent here for possible CHF).Treatment DISH TECHNICIAN:Recently seen in the office.SEPSIS SCREEN: SIRS [...] Whalen RN. 2 Clinical Report - Nurses [facility] Emergency Department [address] [place] [address] Phone #: ext- [phone] 04/12/2021 11:39 Patient: [...] 2 seconds. 3 Clinical [place] [address] Phone #: ext- [phone] 04/12/2021 11:39 Patient: DONALD ARMANDO Sex: F : 1945 Age: 76y EXTREMITIES: Bilateral 1+ pitting edema of the lower extremities involving both lower legs. SKIN: Skin is warm and dry. Normal skin turgor. --11:55 04/12/21 Osmar Whalen RN.NURSING PROGRESS NOTESOxygen administered by nasal cannula at 3 liters. quality assurance monitor body, NIBP monitor and pulse oximeterplaced on patient; cardiac technician- Lead II; monitor alarms on. Patient [...] and shown to the PA. --12:51 04/12/21 [facility] Damaso Torres ER Tech1 13:48 04/12/2021 Solu-Medrol (methylPREDNISolone Sodium Succ) IVP [...] maintained @ 93% on 3L). --15:07 04/12/21 [facility] Damaso Torres ER Tech1 ( Patient was provided with a cup of coffee and a sandwich.). --15:08 04/12/21 [facility] Damaso Torres ER Tech1 15:28 04/12/2021 Si te #1 removed upon discharge. Catheter intact. Manual pressure and bandage applied. --15:28 04/12/21 Osmar Whalen RN.DISPOSITION / DISCHARGE 4 Clinical Report - Nurses [facility] Emergency Department [address] [place] [address] Phone #: ext- [phone] 04/12/2021 11:39 Patient: DONALD ARMANDO Sex: F : 1945 Age: 76y Condition at departure: improved and stable. Discharge instructions provided and reviewed with the patient. Reviewed medication(s) side effects, precautions, dosing and course information. Prescription(s) sent electronically to pharmacy. Patient verbalized understanding. Written instructions provided in [place]. The patient was discharged by the physician assistant teacher primary. She was discharged home and accompanied by [...] rce(s) Supporting Document(s) ID Date Data Source [id number] 04/12/2021 11:40:00 AM EDT [facility] 1 Clinical Report - Physicians/Mid Levels [facility] Emergency Department [address] [place] [address] Phone #: ext- [phone] 04/12/2021 11:39 Patient: [...] Substance Problems. 2 Clinical Report - Physicians/Mid Levels [facility] Emergency Department [address] [place] [address] Phone #: ext- [phone] 04/12/2021 11:39 Patient: DONALD ARMANDO [facility]#: [id number] Sex: F : 1945 Age: 76y Hypertension. [...] movement. 3 Clinical Report - Physicians/Mid Levels [facility] Emergency Department [address] [place] [address] Phone #: ext- [phone] 04/12/2021 11:39 Patient: DONALD ARMANDO Sex: F : 1945 Age: 76y Abdomen: [...] Progress Exam CT [place]OR[place] [address] PHONE: [phone] FAX: [phone] Name .................. : TR Whitley Acct Number.................. : [id number] ROOM. ................. : TR-05 Number ................... : [id number] Stay type ............. : E/R Discharge Date......... ... : Admit Date ......... : 04/12/21 Admit Phys .................... : MIRIAN Date of ....... : 1945 Family Phys ................... : CASPER Phone .................. : [phone] Age ................................ : 76 Film# .................. .:[id number] Sex ................................. : F Unsigned transcriptions are preliminary reports and do not represent a medical or legal document CT THORAX W/O CONTRAST 37204 COMPLETE:04/12/21 13:42 32499 Reason(s): NO CONTRAST: ? Abnormal CXR portable CT CHEST WITHOUT IV CONTRAST INDICATION: Pleural-based opacities seen on the left side, uncertain etiology. CT recommended. COMPARISON: Chest x-ray 04/12/2021, CT10/28/19 CONTRAST: None One or more of the following dose reduction techniques were utilized in effectively 4 Clinical Report - Physicians/Mid Levels [facility] Emergency Department [address] [place] [address] Phone #: ext- [phone] 04/12/2021 11:39 Patient: DONALD ARMANDO Sex: F [...] ribs. These are new [address] [place], [place] [address]PHONE: [phone] FAX: [phone] .................. : TR Whitley Acct Number.................. : [id number]. ................. : TR-05 MR Number ................... : [id number] type ............. : E/R Discharge Date......... ... :Admit Date ......... : 04/12/21 Admit Phys .................... : COONEYNORMDate of ....... : 1945 Family Phys ................... : KIRSCHMANPhone .................. : [phone] Age ................................ : 76Film# .................. .:[id number] Sex ................................. : FUnsigned transcriptions are preliminary reports and do not represent a medical or legal document CT THORAX W/O CONTRAST [address] COMPLETE:04/12/21 13:42 39506 Reason(s): NO CONTRAST: ? Abnormal CXR portablecompared to the prior CT from 2019. Abundant sclerosis around the fracture sitesaccount for the rounded opacities projected over the left lung on x-ray. No pulmonarymasses are identified. Electronically Reviewed and Signed ByDCTNAME , SIGNDATE, REGINASTranscribe Initials: SSR, Transcribe Date: 04/12/21 14:50, Dictation Date:<<REPDIST>> Page 2 of 2 5 Clinical Report - Physicians/Mid Levels [facility] Emergency Department [address] [place] [address] Phone #: ext- [phone] 04/12/2021 11:39 Patient: [...] Male GFR Interprentation 20-49 yrs >60 mL/min Ietmdi81-58 yrs >56 mL/min Normal 60-69 yrs >49 mL/min Normal 70-79yrs 6 Clinical Report - Physicians/Mid Levels [facility] Emergency Department [address] [place] [address] Phone #: ext- [phone] 04/12/2021 11:39 Patient: DONALD ARMANDO Sex: F : 1945 Age: 76y>42 mL/min Normal 80 and above >35 mL/min Normal Female GFRInterpretation 20-39 yrs >60 mL/min Normal 40-49 yrs >58 mL/minNormal 50-59 yrs >51 mL/min Normal 60-69 yrs >45 mL/min Azuiyn84-17 yrs >39 mL/min Normal 80 and above >32 mL/min NormalLipase: (AURA: 04/12/2021 12:34) ( MsgRcvd 04/12/2021 13:18) Final results Test Result Flag [...] VenousThrombosis, Pulmonary Embolus, Tissue heart valves, Acute NC Atrial Fibrillation, Valvular heart diseaseand recurrent Systemic Embolism. - International Normalized Ratio (INR): 2.5 - 3.5 forMechanical Prosthetic valve.Troponin-T: (AURA: 04/12/2021 12:34) ( [facility] 04/12/2021 12:59) Final results Test Result Flag Units (Reference) TROPONIN T <0.01 NG/ML (0.00 - 0.10) TROPONIN T0.1 ng/ml Recommended as the clinical threshold value forTroponin T.Magnesium: (AURA: 04/12/2021 12:34) ( [facility] 04/12/2021 13:18) Final results Test Result Flag Units (Reference) MAGNESIUM 2.2 MG/DL (1.7 - 2.2)BNP: ([facility]URA: 04/12/2021 12:34) ( [facility] 04/12/2021 13:22) Final results Test Result Flag Units (Reference) BNP 1469 H PG/ML (0 - 125)TSH: ([facility]URA: 04/12/2021 12:34) ( [facility] 04/12/2021 13:22) Final results Test Result Flag Units (Reference) TSH 5.41 H uIU/mL (0.47 - 5.01)Urinalysis: (AURA: 04/12/2021 13:45) ( [facility] 04/12/2021 14:17) Final results Test Result Flag Units (Reference) URINALYSIS URINALYSIS SOURCE R COLOR yellow (NORMAL: Yello CLARITY clear (NORMAL: Clear SPEC GRAVITY 1.010 (1.001 - 1.030 pH 7 (5 - 9) GLUCOSE NORM (NORMAL: Negat BILIRUBIN NEG (NORMAL: Negat KETONE NEG (NORMAL: Negat PROTEIN 15 (NORMAL: Negat NITRITE NEG (NORMAL: Negat 7 Clinical Report - Physicians/Mid Levels [facility] Emergency Department [address] [place] [address] Phone #: ext- [phone] 04/12/2021 11:39 - Patient: DONALD ARMANDO Sex: [...] Nasal A B: ([facility]URA: 04/12/2021 12:34) ( [facility] 04/12/2021 13:23) Final results Test Result Flag Units (Reference) INFLUENZA A NEGATIVE (NORMAL: NEGAT INFLUENZA B NEGATIVE (NORMAL: NEGAT INFLUENZA A REENTER NEGATIVE (NORMAL: NEGAT INFLUENZA B REENTER NEGATIVE (NORMAL: NEGAT PROCEDURAL CONTROL VALID KIT LOT # _[id number] 04/12/21.MRW. KIT EXP DATE _09.07.22 04/12/21.MRW.The Influenza A utilizing an isothermal nucleic acid amplification technology for thequalitativedetection of influenza A and B viral RNA.Negative results do not preclude influenza virus infection and shouldnot beused as the sole basis for diagnosis, treatment or other patient managementdecisions.Chest Portable 1 View: (AURA: 04/12/2021 12:17) ( [facility] 04/12/2021 13:44) Final [place] [address] PHONE: [phone] FAX: [phone] Name .................. : TR Whitley Acct Number.................. : [id number] ROOM. ................. : TR Number ................... : [id number] Stay type ............. : E/R Discharge Date......... ... : Admit Date ......... : 04/12/21 Admit Phys .................... : COAKINMARLEY Date of ....... : 1945 Family Phys ................... : CASPER Phone .................. : [phone] Age ................................ : 76 Film# .................. .:[id number] Sex ................................. : F Unsigned transcriptions are preliminary reports and do not represent a medical or legal document CHEST PORTABLE [id number] COMPLETE:04/12/21 12:17 58835 Reason(s): cough, congestion, hx of COPD. ? PNU vs COPD flare vs CHF flare 8 Clinical Report - Physicians/Mid Levels [facility] Emergency Department [address] [place] [address] Phone #: ext- [phone] 04/12/2021 11:39 Patient: DONALD ARMANDO Sex: F [...] MD , 04/12/21 13:44, COSMO Transcribe Initials: SSR, Transcribe Date: 04/12/21 13:39, Dictation Date: Page 1 of2 [facility] [address] [facility] [place] [address] PHONE: [phone] FAX: [phone] Name .................. : TR Whitley Acct Number.................. : [id number] ROOM. ............... .. : TR05 Number ................... : [id number] Stay type ............. : E/R Discharge Date......... ... : Admit Date ......... : 04/12/21 Admit Phys .................... : [facility] Date of ....... : 1945 Family Phys ................... : [facility] Phone .................. : [phone] Age ................................ : 76 Film# .................. .:[id number] Sex ................................. : F Unsigned transcriptions are preliminary reports and do not represent a medical or legal document CHEST PORTABLE [id number] COMPLETE:04/12/21 12:17 29134 Reason(s): cough, congestion, hx of COPD. ? PNU vs COPD flare vs CHF flare Copy for: 010 EMERGENCY SRV Copy for: JE FREDERICK via fax Copy for: CASPER RACHEL via modem Copy for: EMERGENCY DEPT via modem 9 Clinical Report - Physicians/Mid Levels [facility] Emergency Department [address] [place] [address] Phone #: ext- [phone] 04/12/2021 11:39 Patient: DONALD ARMANDO Sex: F : 1945 Age: 76y Copy for: [employer] MED REC Page 2 of 2.PROGRESS AND [...] nephrolgoy. Will order labs adn imaging. Pt currenlty stable, will hold on meds until labs return to evaluate. [facility]. Appears stable [id number] BUN: 40; today 52, increased Cerat: 2.3; today 2.3: stable GFR: 22; today 22: stable BNP: 4547; today 1469: decreased Will tx and obtain CT for leslye cantoral due to portable findings. 14:55 04/12/21. Enter [...] stable. 10 Clinical Report - Physicians/Mid Levels [facility] Emergency Department [address] [place] [address] Phone #: ext- [phone] 04/12/2021 11:39 Patient: DONALD ARMANDO Sex: F [...] No dietary restrictions. 11 Clinical Report - Physicians/[facility] Emergency Department [address] [place] [address] Phone #: ext- [phone] 04/12/2021 11:39 Patient: [...] Dispense 5 tablet. Refills: 0. Substitution permitted. [id number] [place] [phone]. . azithromycin 250 mg tablet Take 2 tablet single dose for 1 days -- Take 2 tabs by mouth and day 1`and then 1 tab by mouth for days 2-5. Dispense 6 tablet. Refills: 0. Substitution permitted. [facility] #[id number] [place] [address] [phone]. . Follow-up: Return to the emergency department as needed. Follow up with your healthcare provider in about two days if not better. Call for an appointment. Follow up with a parts advisor and truer pinion and wheel as scheduled. Understanding of the discharge instructions verbalized by patient.(Electronically signed by Luis Wooten P.A.-C 04/12/2021 23:23) Name Value Range Interpretation Code Description Data Ro rce(s) Supporting Document(s) ID Date Data Source [id number] 04/12/2021 10:26:00 [place] [address] RESPIRATORY CARE REPORT ==== ---------NAME------- NUMBER SEX AGE ADMIT DISC. XRAY# F/C EDWIN Whitley [id number] F 76 04/12/21 04/12/21 [id number] E/R DATE OF : 1945 M/R# [id number] #: [id number] TR-05 LOCATION: EMERGENCY DEPT EKG 96992 COMP LETE:04/12/21 16:06 Marbin [id number] PHYSICIAN: MIRIAN WOOTEN CH Name Value Range Interpretation Code Description Data Ro rce(s) Supporting Document(s) ID Date Data Source [id number] 04/12/2021 03:09:00 [place] [address] PHONE: [phone] FAX: [phone] Name .................. : TR Whitley Acct Number.................. : [id number] ROOM. ................. : TR-05 MR Number ................... : [id number] Stay type ............. : E/R Discharge Date......... ... : Admit Date ......... : 04/12/21 [facility] Date [facility] ....... : 1945 Family Phys ................... : [employer] Phone .................. : [phone] Age ................................ : 76 Film# .................. .:[id number] Sex ................................. : F Unsigned transcriptions are preliminary reports and do not represent a medical or legal document CT THORAX W/O CONTRAST 92446 COMPLETE:04/12/21 13:42 11705 Reason(s): NO CONTRAST: ? Abnormal CXR portable [...] These are new Page 1 of [address] [place] [address] PHONE: [phone] FAX: [phone] Name .................. : PATRICIADEVI BENNETT Gutierrez Acct Number.................. : [id number] ROOM. ................. : TR-05 MR Number ................... : [id number] Stay type ............. : E/R Discharge Date......... ... : Admit Date ......... : 04/12/21 [facility] Date of ....... : 1945 Family Phys ................... : [employer] Phone .................. : [phone] Age ................................ : 76 Film# .................. .:[id number] Sex ................................. : F Unsigned transcriptions are preliminary reports and do not represent a medical or legal document CT THORAX W/O CONTRAST 30646 COMPLETE:04/12/21 13:42 62132 Reason(s): NO CONTRAST: ? Abnormal CXR portable [...] rce(s) Supporting Document(s) ID Date Data Source [id number] 04/12/2021 01:44:00 [place] [address] PHONE: [phone] FAX: [phone] Name .................. : TR Whitley Acct Number.................. : [id number] ROOM. ................. : TR-05 Number ................... : [id number] Stay type ............. : E/R Discharge Date......... ... : Admit Date ......... : 04/12/21 Admit Phys .................... : COONEYNORM Date of ....... : 1945 Family Phys ................... : CASPER Phone .................. : [phone] Age ................................ : 76 Film# .................. .:[id number] Sex ................................. : F Unsigned transcriptions are preliminary reports and do not represent a medical or legal document CHEST PORTABLE 27642 COMPLETE:04/12/21 12:17 27512 Reason(s): cough, congestion, hx of COPD. ? [...] MD , 04/12/21 13:44, JWJuju Transcribe Initials: GOLDEN, Transcribe Date: 04/12/21 13:39, Dictation Date: Page 1 of 2 [place] [address] PHONE: [phone] FAX: [phone] Name .................. : TR Whitley Acct Number.................. : [id number] ROOM. ................. : TR05 Number ................... : [id number] Stay type ............. : E/R Discharge Date......... ... : Admit Date ......... : 04/12/21 Admit Phys .................... : COONEYNORM Date of ....... : 1945 Family Phys ................... : CASPER Phone .................. : [phone] Age ................................ : 76 Film# .................. .:[id number] Sex ................................. : F Unsigned transcriptions are preliminary reports and do not represent a medical or legal document CHEST PORTABLE 28820 COMPLETE:04/12/21 12:17 61390 Reason(s): cough, congestion, hx of COPD. ? PNU vs COPD flare vs CHF flare Copy for: 010 EMERGENCY SRV Copy for: JE FREDERICK via fax Copy for: CASPER RACHEL via modem Copy for: EMERGENCY DEPT via modem Copy for: 710 MED REC Page 2 of 2 Name Value Range Interpretation Code Description Data Ro rce(s) Supporting Document(s) ID Date Data Source [id number] 04/12/2021 01:45:00 PM EDT [facility] (Silver Peterson [...] SOURCE: Clean Catch ID Date Data Source [id number] 04/12/2021 02:15:00 PM EDT [facility] Name Value Range Interpretation Code Description Data Ro rce(s) Supporting Document(s) [facility] COLOR yellow NORMAL: Yellow [facility] CLARITY clear NORMAL: Clear [facility] Specific gravity of Urine by Test strip 1.010 1.001 - 1.030 [facility] pH 7 5 - 9 [facility] al Glucose [Mass/volume] in Urine by Test strip NORM NORMAL: Negat [facility] Bilirubin.total [Presence] in Urine by Test strip NEG NORMAL: Negative [facility] Ketones [Presence] in Urine by Test strip NEG NORMAL: Negative [facility] Protein [Mass/volume] in Urine by Test strip 15 NORMAL: Negat [facility] Nitrite [Presence] in Urine by Test strip NEG NORMAL: Negative [facility] BLOOD NEG NORMAL: Negative [facility] LEUK EST NEG NORMAL: Negative [facility] Urobilinogen [Mass/volume] in Urine by Test strip NOR less joyce n 1.0 mg/dL [facility] MICROSCOPIC See Below [facility] ital WBC 1 - 3 NORMAL: NONE SEEN [facility] EPITHELIAL FEW NORMAL: NONE SEEN [facility] Bacteria [Presence] in Urine sediment by Light microscopy Tr sonali NORMAL: NONE SEEN [facility] Amorphous sediment [Presence] in Urine sediment by Light melody roscopy RARE NORMAL: NONE SEEN [facility] Casts [#/area] in Urine sediment by Microscopy low power field See Be low [facility] Hyaline casts [#/area] in Urine sediment by Microscopy low p ower field 0-1 NORMAL: None Seen [facility] Coarse Granular Casts [#/area] in Urine sediment by Mi croscopy low power field 0-1 NORMAL: None Seen A [facility] ID Date Data Source [id number] 04/12/2021 12:34:00 PM EDT [facility] (Silver Peterson [...] management</content>
<content>decisions.</content>
<content></content> ID Date Data Source [id number] 04/12/2021 12:34:00 PM EDT [facility] (Silver Peterson [...] (Silver Peterson MD) ID Date Data Source [id number] 04/12/2021 12:34:00 PM EDT [facility] (Silver Peterson [...] concept) Laboratory test resu lt 0.2-1.3 [facility] (Sliver Peterson MD) Laboratory test finding [...] >32 mL/min Normal ID Date Data Source [id number] 04/12/2021 12:34:00 PM EDT [facility] (Silver Peterson [...] (Silver Peterson MD) ID Date Data Source [id number] 04/12/2021 12:34:00 PM EDT [facility] (Silver Peterson [...] Thrombosis, Pulmonary Embolus, Tissue heart valves, Acute [place] Atrial Fibrillation, Valvular heart disease and recurrent Systemic Embolism. -International Normalized Ratio (INR): 2 .5 - 3.5 for Mechanical Prosthetic valve. Laboratory test finding (navigational concept) 1.03 0.93-1.23 [facility] (Silver Peterson MD) ID Date Data Source [id number] 04/12/2021 12:34:00 PM EDT [facility] (Silver Peterson [...] (Silver Peterson MD) ID Date Data Source [id number] 04/12/2021 12:34:00 PM EDT [facility] Name Value Range Interpretation Code Description Data Ro rce(s) Supporting Document(s) COVID19 Case rprt NOT DETECTED [facility] This lab was ordered by [facility] and reported by [facility]. ID Date Data Source [id number] 04/12/2021 01:23:00 PM EDT [facility] NOT DETECTEDNOT DETECTED{ PROC EDURAL CONTROL VALID KIT LOT # _[id number] 04/12/21.MRW. KIT EXP DATE _07.21.21 04/12/21.MRW. NORMAL RANGE [...] rce(s) Supporting Document(s) ID Date Data Source [id number] 04/12/2021 01:22:00 PM EDT [facility] Name Value Range Interpretation Code Description Data Ro rce(s) Supporting Document(s) Influenza virus A Ag [Presence] in Nasopharynx by Immunoassa y NEGATIVE NORMAL: NEGATIVE [facility] Influenza virus B Ag [Presence] in Nasopharynx by Immunoassa y NEGATIVE NORMAL: NEGATIVE [facility] NEGATIVENEGATIVE PROCEDURAL CO NTROL VALID KIT LOT # _[id number] 04/12/21.MRW. KIT EXP DATE _09.07.22 04/12/21.MRW.The Influenza A & B assay is a rapid molecular in vitro diagnostic testutilizing an isothermal nucleic acid amplification technology for thequalitative detection of influenza A and B viral RNA.Negative results do not preclude influenza virus infection and should not beused as the sole basis for diagnosis, treatment or other patient managementdecisions. ID Date Data Source [id number] 04/12/2021 01:22:00 PM EDT [facility] Name Value Range Interpretation Code Description Data Ro rce(s) Supporting Document(s) Thyrotropin [Units/volume] in Serum or Plasma by Detec tion limit <= 0.05 mIU/L 5.41 uIU/mL 0.47 - 5.01 H [facility] ID Date Data Source [id number] 04/12/2021 01:22:00 PM EDT [facility] Name Value Range Interpretation Code Description Data Ro rce(s) Supporting Document(s) BNP 1469 PG/ML 0 - 125 H [facility] booker ID Date Data Source [id number] 04/12/2021 01:22:00 PM EDT [facility] Name Value Range Interpretation Code Description Data Ro rce(s) Supporting Document(s) COMPREHENSIVE METABOLIC PANEL [facility] COMPREHENSIVE METABOLIC PANEL Sodium [Moles/volume] in Serum or Plasma 143 mEq/L 134 - 153 [facility] Potassium [Moles/volume] in Serum or Plasma 4.9 mEq/L 3.6 - 5.0 [facility] Chloride [Moles/volume] in Serum or Plasma 101 mEq/L 98 - 107 [facility] Carbon dioxide, total [Moles/volume] in Serum or Plasma 34 MEQ/L 22 - 30 H [facility] Glucose [Mass/volume] in Serum or Plasma 88 MG/DL 70 - 99 [facility] BUN 52 MG/DL 7 - 21 H [facility] Creatinine [Mass/volume] in Serum or Plasma 2.3 MG/DL 0.7 - 1.5 [facility] [facility] BUN/CREAT 23 8 - 27 [facility] Protein [Mass/volume] in Serum or Plasma 6.3 G/DL 6.3 - 8.2 [facility] Albumin [Mass/volume] in Serum or Plasma 3.9 G/DL 3.9 - 5.0 [facility] Globulin [Mass/volume] in Serum by calculation 2.4 GM/DL 2.4 - 3.2 [facility] A/G RATIO 1.6 0.8 - 2.0 [facility] Calcium [Mass/volume] in Serum or Plasma 9.1 MG/DL 8.4 - 10.2 [facility] Bilirubin.total [Mass/volume] in Serum or Plasma <0.7 MG/DL 0.2 - 1.3 [facility] Alkaline phosphatase [Enzymatic activity/volume] in Serum or Plasma 81 U/L 38 - 126 [facility] Aspartate aminotransferase [Enzymatic activity/volume] in Serum or Plasma 11 U/L 5 - 40 [facility] Alanine aminotransferase [Enzymatic activity/volume] in Seru m or Plasma 7 U/L 7 - 56 [facility] Anion gap 3 in Serum or Plasma 8.0 mmol/L 8.0 - 16.0 [facility] AGE 76 yrs [facility] NON-AA GFR 22 mL/min [facility] AMER GFR >60 [facility] Male GFR In terprentation [...] >32 mL/min Normal ID Date Data Source [id number] 04/12/2021 01:18:00 PM EDT [facility] Name Value Range Interpretation Code Description Data Ro rce(s) Supporting Document(s) Magnesium [Mass/volume] in Serum or Plasma 2.2 MG/DL 1.7 - 2.2 [facility] ID Date Data Source [id number] 04/12/2021 01:18:00 PM EDT [facility] Name Value Range Interpretation Code Description Data Ro rce(s) Supporting Document(s) Lipase [Enzymatic activity/volume] in Serum or Plasma 26 U/L 13 - 60 [facility] ID Date Data Source [id number] 04/12/2021 12:59:00 PM EDT [facility] Name Value Range Interpretation Code Description Data Ro rce(s) Supporting Document(s) TROPONIN T <0.01 NG/ML 0.00 - 0.10 [facility] TROPONIN T0.1 ng/ml Recommended as the c linical threshold value forTroponin T. ID Date Data Source [id number] 04/12/2021 12:55:[address] [facility] Value Range Interpretation Code Description Data Ro rce(s) Supporting Document(s) Prothrombin time (PT) 13.6 SECONDS 11.0 - 15.5 [facility] INR in Platelet poor plasma by Coagulation assay 1.03 0.93 - 1. 23 [facility] aPTT in Blood by Coagulation assay 27.8 SECONDS 24.8 - 36.7 [facility] \\BLDo\\INR INTERPRETATION\\BLDx\\ Therapeutic range for Coumadin and related oral anticoagulants. - International Normalized Ratio (INR): 2.0 - 3.0 for Venous Thrombosis, Pulmonary Embolus, Tissue heart valves, Acute NC Atrial Fibrillation, Valvular heart disease and recurrent Systemic Embolism. - International Normalized Ratio (INR): 2.5 - 3.5 for Mechanical Prosthetic valve. ID Date Data Source [id number] 04/12/2021 12:44:00 PM EDT [facility] Name Value Range Interpretation Code Description Data Ro rce(s) Supporting Document(s) CBC W/AUTOMATED DIFF [facility] COMPLETE BLOOD COUNT Leukocytes [#/volume] in Blood by Automated count 9.5 10^3/uL 4.2 - 1 1.0 [facility] Erythrocytes [#/volume] in Blood by Automated count 2.99 10^6/uL 4. 20 - 5.40 L [facility] Hemoglobin [Mass/volume] in Blood 9.7 g/dL 12.0 - 16.0 L [facility] Hematocrit [Volume Fraction] of Blood by Automated count 32.0 % 3 7.0 - 47.0 L [facility] Erythrocyte mean corpuscular volume [Entitic volume] b y Automated count 107.0 fL 81.0 - 101 H [facility] Erythrocyte mean corpuscular hemoglobin [Entitic mass] by Automated count 32.4 pg 27.0 - 34.0 [facility] Erythrocyte mean corpuscular hemoglobin concentration [Mass/volume] by Automated count 30.3 g/dL 31.0 - 36.0 L [facility] Erythrocyte distribution width [Ratio] by Automated count 16.0 % 11.5 - 14.5 H [facility] Platelets [#/volume] in Blood by Automated count 194 10^3/uL 150 - 45 0 [facility] Platelet mean volume [Entitic volume] in Blood by Automated count 9.5 fL 7.4 - 10.4 [facility] Neutrophils/100 leukocytes in Blood by Automated count 73.5 % 37. 0 - 80.0 [facility] Lymphocytes/100 leukocytes in Blood by Manual count 12.4 % 25.0 - 40.0 L [facility] Monocytes/100 leukocytes in Blood by Automated count 7.8 % 3.0 - 8.0 [facility] Eosinophils/100 leukocytes in Blood by Automated count 3.5 % 0.0 - 7.0 [facility] Basophils/100 leukocytes in Blood by Automated count 0.5 % 0.0 - 2.5 [facility] %IG 2.3 % 0.0 - 0.0 [facility] %NRBC 0.0 % 0.0 - 0.0 [facility] al Neutrophils [#/volume] in Blood by Automated count 6.95 10^3/uL 2.00 - 6.90 H [facility] Lymphocytes [#/volume] in Blood by Automated count 1.17 10^3/uL 0.60 - 3.40 [facility] Monocytes [#/volume] in Blood by Automated count 0.74 10^3/uL 0.00 - 0.90 [facility] Eosinophils [#/volume] in Blood by Automated count 0.33 10^3/uL 0.00 - 0.70 [facility] Basophils [#/volume] in Blood by Automated count 0.05 10^3/uL 0.00 - 0.20 [facility] #IG 0.22 10^3/uL 0.00 - 0.10 [facility] #NRBC 0.00 10^3/uL 0.00 - 0.00 [facility] MANUAL DIFF NOT INDICATED [facility] RBC MORPH NOT INDICATED [facility] spital ID Date Data Source [id number] 03/23/2021 01:22:00 PM EDT [facility] WO IV CONTRASTCLINICAL [...] rce(s) Supporting Document(s) ID Date Data Source [id number] 02/07/2021 01:53:00 PM EDT [facility] (Silver Peterson MD) Name Value Range Interpretation Code Description Data Ro rce(s) Supporting Document(s) Magnesium [Mass/volume] in Serum or Plasma 2.6 mg/dL 1.8-2.4 Above high normal [facility] (Silver Peterson MD) Natriuretic peptide.B prohormone N-Terminal [Mass/volu me] in Serum or Plasma 1098 pg/mL Above high normal [facility] (Silver Peterson MD) ID Date Data Source [id number] 02/07/2021 01:53:00 PM EDT [facility] (Silver Peterson MD) Name Value Range Interpretation Code Description Data Ro rce(s) Supporting Document(s) Laboratory test finding (navigational concept) 206 mg/dL Above high normal [facility] (Silver Peterson MD) Laboratory test finding (navigational concept) 41 mg/dL Normal (applies to non-numeric results) [facility] (Silver Peterson MD) Laboratory test finding (navigational concept) 163 mg/dL Normal (applies to non-numeric results) [facility] (Silver Peterson MD) Laboratory test finding (navigational concept) 81 mg/dL Normal (applies to non-numeric results) [facility] (Silver Peterson MD) Laboratory test finding (navigational concept) 122 mg/dL Normal (applies to non-numeric results) [facility] (Silver Peterson MD) Laboratory test finding (navigational concept) 3.975 Normal (applies to non- numeric results) [facility] (Silver Peterson MD) ID Date Data Source [id number] 02/07/2021 01:53:00 PM EDT [facility] (Silver Peterson [...] Little GFR Left</content>
<content>ESRD GFR <15 on [employer]ING [employer]</content>
<content></content> Laboratory test finding (navigational concept) 106 [...] (Silver Peterson MD) ID Date Data Source [id number] 02/07/2021 01:53:00 PM EDT [facility] (Silver Peterson [...] (Silver Peterson MD) ID Date Data Source [id number] 12/20/2020 10:59:00 [place] [address] PHONE: [phone] FAX: [phone] Name .................. : TR DONALD E Acct Number.................. : [id number] ROOM. ................. : Number ................... : [id number] Stay type ............. : O/P Discharge Date......... ... : 12/18/20 Admit Date ......... : 12/18/20 Admit Phys .................... : HAIDER SOMMER Date of ....... : 1945 Family Phys ................... : CASPER Phone .................. : [phone] Age ................................ : 75 Film# .................. .:[id number] Sex ................................. : F Unsigned transcriptions are preliminary reports and do not represent a medical or legal document CT CERV SPINE W/O CONTRAS [id number] COMPLETE:12/18/20 19:20 [facility] 8545 Reason for Exam: UNSTEADINESS ON FEET [...] imperative reconstructive techniques. Page 1 of 2 [facility] [address] [place] [address] [place] [address] PHONE: [phone] FAX: [phone] Name .................. : TR Whitley Acct Number.................. : [id number] ROOM. ................. : MR Number ................... : [id number] Stay type ............. : O/P Discharge Date......... ... : 12/18/20 Admit Date ......... : 12/18/20 Admit Phys .................... : HAIDER SOMMER Date of ....... : 1945 Family Phys ................... : [employer] Phone .................. : [phone] Age ................................ : 75 Film# ... ............... .:[id number] Sex ................................. : F Unsigned transcriptions are preliminary reports and do not represent a medical or legal document CT CERV SPINE W/O CONTRAS [id number] COMPLETE:12/18/20 19:20 [facility] 8545 Reason for Exam: UNSTEADINESS ON FEET CT dose: 868.3 mGycm Electronically Reviewed and Signed By Viet Parra MD , 12/20/20 10:59, KGG Transcribe Initials: DZ , Transcribe Date: 12/19/20 05:34, Dictation Date: Copy for: HAIDER SOMMER via fax Copy for: CASPER DANYA via modem Copy for: [address] [place] [address] REC Page 2 of 2 Name Value Range Interpretation Code Description Data Ro rce(s) Supporting Document(s) ID Date Data Source [id number] 12/19/2020 11:57:00 AM EDT [facility] [address] [place] [address] PHONE: [phone] FAX: [phone] Name .................. : PATRICIADEVI BENNETT Gutierrez Acct Number.................. : [id number] ROOM. ................. : MR Number ................... : [id number] Stay type ............. : O/P Discharge Date......... ... : 12/18/20 Admit Date ......... : 12/18/20 Admit Phys .................... : HAIDER YUMIKO Date of ....... : 1945 Family Phys ................... : CASPER Phone .................. : [phone] Age ................................ : 75 Film# .................. .:[id number] Sex ................................. : F Unsigned transcriptions are preliminary reports and do not represent a medical or legal document CT HEAD W/O CONTRAST [id number] COMPLETE:12/18/20 19:20 [facility] 8544 Reason for Exam: TREMOR,SEIZURES, UNSTEADINESS ON [...] MD , 12/19/20 11:57, KGG Transcribe Initials: KIRIT , Transcribe Date: 12/19/20 03:17, Dictation Date: Copy for: HAIDER SOMMER via fax Copy for: CASPER RACHEL via laconiam Page 1 of 2 [place] [address] PHONE: [phone] FAX: [phone] Name .................. : TR Whitley Acct Number.................. : [id number] ROOM. ................. : Number ................... : [id number] Stay type ............. : O/P Discharge Date......... ... : 12/18/20 Admit Date ......... : 12/18/20 Admit Phys .................... : HAIDER SOMMER Date of ....... : 1945 Family Phys ................... : CASPER Phone .................. : [phone] Age ................................ : 75 Film# .................. .:[id number] Sex ................................. : F Unsigned transcriptions are preliminary reports and do not represent a medical or legal document CT HEAD W/O CONTRAST [id number] COMPLETE:12/18/20 19:20 [facility] 8544 Reason for Exam: TREMOR,SEIZURES, UNSTEADINESS ON FEET Copy for: 710 MED REC Page 2 of 2 Name Value Range Interpretation Code Description Data Ro rce(s) Supporting Document(s) ID Date Data Source [id number] 11/30/2020 06:26:00 PM EDT [facility] (Silver Peterson MD) Name Value Range Interpretation Code Description Data Ro rce(s) Supporting Document(s) Lipoprotein lipase [Enzymatic activity/volume] in Serum or P lasma 104 U/L 73-393 Normal (applies to non-numeric results) [facility] ( Silver Peterson MD) ID Date Data Source [id number] 11/30/2020 06:26:00 PM EDT [facility] (Silver Peterson [...] (Silver Peterson MD) ID Date Data Source [id number] 11/30/2020 06:26:00 PM EDT [facility] (Silver Peterson [...] <content>Troponin I Reference Interval f or Siemens [place] LOCI:</content>
<content></content>
<content>99th Percentile= 0.00-0.045 ng/ml</content>
<content></content>
<content>Risk Stratification:</content>
<content><= 0.10 ng/ml Decreased Risk for Adverse Clinical</content>
<content>Events.</content>
<content>0.10-1.50 ng/ml Increased Risk for Adverse Clinical</content>
<content>Events. Evaluation of additional</content>
<content>criterion and/or repeat testing in 2-6</content>
<content>hours is suggested to rule out myocardial</content>
<content>damage.</content>
<content>>= 1.50 ng/ml Indicative of Myocardial Injury.</content>
<content></content> ID Date Data Source [id number] 11/30/2020 06:14:00 PM EDT [facility] Name Value Range Interpretation Code Description Data Ro rce(s) Supporting Document(s) SARS coronavirus 2 RNA [Presence] in Res piratory specimen by AMARA with probe detection [facility] This lab was ordered by [facility] a nd reported by [facility]. ID Date Data Source [id number] 11/30/2020 05:20:00 PM EDT [facility] (Silver Peterson [...] (Silver Peterson MD) ID Date Data Source [id number] 11/30/2020 05:16:00 PM EDT [facility] (Silver Peterson MD) Name Value Range Interpretation Code Description Data Ro rce(s) Supporting Document(s) Natriuretic peptide.B prohormone N-Terminal [Mass/volu me] in Serum or Plasma 1279 pg/mL Above high normal [facility] (Silver Peterson MD) ID Date Data Source [id number] 11/30/2020 05:16:00 PM EDT [facility] (Silver Peterson [...] (Silver Peterson MD) ID Date Data Source [id number] 11/28/2020 12:41:00 [place] [address] PHONE: [phone] FAX: [phone] Name .................. : TR Whitley Acct Number.................. : [id number] ROOM. ................. : TR-08 Number ................... : [id number] Stay type ............. : E/R Discharge Date......... ... : 11/27/20 Admit Date ......... : 11/27/20 Admit Phys .................... : BERE ULRICH Date of ....... : 1945 Family Phys ................... : CASPER Phone .................. : [phone] Age ................................ : 75 Film# .................. .:[id number] Sex ................................. : F Unsigned transcriptions are preliminary reports and do not represent a medical or legal document SPINE THORACIC [id number] COMPLETE:11/27/20 16:48 KBO 6800 Reason(s): Fall THORACIC SPINE X-RAY: INDICATION: Fall. FINDINGS: Alignment is maintained. Anterior vertebral body heights are maintained. There is no fracture or dislocation. Multilevel degenerative disc disease is noted. There is exaggerated kyphosis. IMPRESSION: 1. No acute osseous abnormality of the thoracic spine. 2. Multilevel degenerative changes. Electronically Reviewed and Signed By Robert Gilliland M.D. , 11/28/20 12:41, [place]Y Transcribe Initials: DZ , Transcribe Date: 11/28/20 00:39, Dictation Date: Copy for: EDOUARD LOYA via fax Copy for: CASPER RACHEL via modem Copy for: EMERGENCY DEPT via modem Copy for: 710 MED REC DISCHARGED Page 1 of 1 Name Value Range Interpretation Code Description Data Ro rce(s) Supporting Document(s) ID Date Data Source [id number] 11/28/2020 12:41:00 [place] [address] PHONE: [phone] FAX: [phone] Name .................. : TR Whitley Acct Number.................. : [id number] ROOM. ................. : TR-08 Number ................... : [id number] Stay type ............. : E/R Discharge Date......... ... : 11/27/20 Admit Date ......... : 11/27/20 Admit Phys .................... : BERE SERG Date of ....... : 1945 Family Phys ................... : CASPER Phone .................. : [phone] Age ................................ : 75 Film# .................. .:[id number] Sex ................................. : F Unsigned transcriptions are preliminary reports and do not represent a medical or legal document CHEST 2 VIEWS [id number] COMPLETE:11/27/20 16:48 KBO 6799 Reason(s): Chest Pain [...] M.D. , 11/28/20 12:41, [place] Transcribe Initials: KIRIT , Transcribe Date: 11/28/20 00:35, Dictation Date: Copy for: EDOUARD LOYA via fax Copy for: CASPER RACHEL via modem Copy for: EMERGENCY DEPT via modem Copy for: 710 MED REC DISCHARGED Page 1 of 1 Name Value Range Interpretation Code Description Data Ro rce(s) Supporting Document(s) ID Date Data Source [id number] 11/28/2020 12:41:00 PM EDT [facility] [address] [place] [address] PHONE: [phone] FAX: [phone] Name .................. : TR BENNETT Gutierrez Acct Number.................. : [id number] ROOM. ................. : [facility] Number ................... : [id number] Stay type ............. : E/R Discharge Date......... ... : 11/27/20 Admit Date ......... : 11/27/20 Admit Phys .................... : BERE ULRICH Date of ....... : 1945 Family Phys ................... : [facility] Phone .................. : [phone] Age ................................ : 75 Film# .................. .:[id number] Sex ................................. : F Unsigned transcriptions are preliminary reports and do not represent a medical or legal document HIP UNILAT W PELV 2 TO 3V LT [id number] COMPLETE:11/27/20 16:48 KBO 6798 Reason(s): Hip Injury LEFT HIP WITH AP PELVIS X-RAY: INDICATION: Hip injury. FINDINGS/IMPRESSION: There is no fracture or dislocation. Moderate degenerative changes are noted of the left femoroacetabular joint. Electronically Reviewed and Signed By Robert Gilliland M.D. , 11/28/20 12:41, [place] Transcribe Initials: KIRIT , Transcribe Date: 11/28/20 00:33, Dictation Date: Copy for: EDOUARD LOYA via fax Copy for: CASPER RACHEL via modem Copy for: EMERGENCY DEPT via modem Copy for: 710 MED REC DISCHARGED Page 1 of 1 Name Value Range Interpretation Code Description Data Ro rce(s) Supporting Document(s) ID Date Data Source [id number] 11/27/2020 03:26:00 PM EDT [facility] 1 OrderSheet [facility] Emergency Department [address] [place] [address] Phone #: ext- [phone] 11/27/2020 15:12 Patient: DONALD ARMANDO Sex: F : 1945 Age: 75yWEIGHT:73.4 kg (S) HEIGHT:63 inches (S) BMI:28.7ALLERGIES: Codeine, DilantinCHIEF COMPLAINT: slipped, fall, attempting to get upDIAGNOSIS: Fall, Contusion, PneumoniaLAB ORDERSOrder Description Priority Entered Acknowledged InitialedUrinalysis (Clean STAT 16:42 11/27/2020 16:53 BurnhamCatch) [facility]; [id number] STUDY ORDERSOrder Description Priority Entered Acknowledged InitialedHip Left with Pelvis STAT 16:07 11/27/2020 16:13 Burnham2-3 Views [facility] ED; Tech1 Reason for Study: Hip Injury, Hip PainChest 2 View STAT 16:07 11/27/2020 16:13 Chari(Oxygen?(No)) Ravindra Kimble dice spotter, [facility] PA; Tech1 NOTES: Fall left rib pain Reason for Study: Chest PainSpine Thoracic AP STAT 16:07 11/27/2020 16:13 BurnhamAnd Lat Ravindra Kimble dice spotter, [facility](Oxygen?(No)) PA; Tech1 Reason for Study: Fall, Mid Back PainMEDICATION/IV/DRIP/FLUID ORDERSOrder Description Priority Entered Acknowledged InitialedTylenol PO 1000 16:07 11/27/2020 16:55 Petermg Ravindra Whalen RN PA;Vicodin (5-325mg) 17:17 11/27/2020 17:32 PeterPO 1 tab ( HIGH Ravindra SERRANO PA;MEDICATION)GENERAL ORDERS 2 OrderSheet [facility] Emergency Department [address] [place] [address] Phone #: ext- [phone] 11/27/2020 15:12 Patient: DONALD ARMANDO Sex: F : 1945 Age: 75yOrder Description Priority Entered Acknowledged InitialedSpirometry - 17:24 11/27/2020 Cancelled: Physician Order 17:33 WadeIncentive (RT Req.) Ravindra SILVA PA;[Electronically signed by Osmar Whalen RN (17:44 11/27/2020)][Electronically signed by Ravindra Kimble (21:39 11/27/2020)][Electronically locked by Osmar Whalen RN (17:44 11/27/2020)] Name Value Range Interpretation Code Description Data Ro rce(s) Supporting Document(s) ID Date Data Source [id number] 11/27/2020 03:26:00 PM EDT [facility] 1 Medication Reconciliation Report [facility] Emergency Department [address] [place] [address] Phone #: ext- [phone] 11/27/2020 15:12 Patient: [...] Oral 50mcg, daily 2 Medication Reconciliation Report [facility] Emergency Department [address] [place] [address] Phone #: ext- [phone] 11/27/2020 15:12 Patient: [...] Pharmacy - [facility]: $217.82. Adjudicatewith: BIN:[id number] PCN:BIJAN Group:EMR ID:[id number]. Phone:[phone].Pharmacy - [facility] [address] [place] [address]. .azithromycin 250 mg tablet -- Take 2 tablets on the first day then one tablet daily for 4 days, totalduration is 5 days. Dispense 6 tablet. Refills: 0. Substitution permitted.Pharmacy - [facility] [address] [place] [address]. .gabapentin 100 mg capsule Take 1 capsule three times a day for 30 days -- Dispense 90 capsule.Refills: 0. Substitution permitted. Note to Pharmacy - [facility]: $19.99. Adjudicate with:BIN:[id number] N:BIJAN Group:EMR ID:[id number]. Phone:[phone].[facility] [address] [place] [address]. . -- SHIRA Medina Name Value Range Interpretation Code Description Data Ro rce(s) Supporting Document(s) ID Date Data Source [id number] 11/27/2020 03:26:00 PM EDT [facility] 1 Medication Administration Record [facility] Emergency Department [address] [place] [address] Phone #: ext- [phone] 11/27/2020 15:12 Patient: DONALD ARMANDO Sex: F [...] rce(s) Supporting Document(s) ID Date Data Source [id number] 11/27/2020 03:26:00 PM EDT [facility] 1 General Instructions [facility] Emergency Department [address] [place] [address] Phone #: ext- [phone] 11/27/2020 15:12 Patient: [...] - [facility]: $217.82. Adjudicate with: BIN:[id number] PCN:BIJAN Group:EMR ID:[id number]. Phone:[phone]. Pharmacy - [id number] - [facility] [place], [place] [id number]. . azithromycin 250 mg tablet -- Take 2 tablets on the first day then one tablet daily for 4 days, total 2 General Instructions [facility] Emergency Department [address] [place] [address] Phone #: ext- [phone] 11/27/2020 15:12 [id number] Sex[facility] F : 1945 Age: 75y duration is 5 days. Dispense 6 tablet. Refills: 0. Substitution permitted. Pharmacy - [id number] [address] [place], [place] [id number]. . gabapentin 100 mg capsule Take 1 capsule three times a day for 30 days -- Dispense 90 capsule. Refills: 0. Substitution permitted. Note to Pharmacy - [facility]: $19.99. Adjudicate with: BIN:[id number] PCN:BIJAN Group:EMR ID:[id number]. Phone:[phone]. Pharmacy - [id number] - [address] [place], [place] [id number]. . Follow-up: Follow up with your doctor [...] muscles without stretching them. 3 General Instructions [facility] Emergency Department [address] [place] [address] Phone #: ext- [phone] 11/27/2020 15:12 --------- Patient: DONALD ARMANDO Sex: F : 1945 Age: 75y You [...] you don't trip over 4 General Instructions [facility] Emergency Department [address] [place] [address] Phone #: ext- [phone] 11/27/2020 15:12 Patient: DONALD ARMANDO Sex: F : 1945 Age: 75y them. [...] the reading, especially if it affects treatment.Call [phone] if any of these happen: Trouble breathing [...] in vomit, stools (black or red color) [id number] [employer]. [address] [place] [address], [place] [address]. All rights reserved. This information is not intended as asubstitute for professional medical care. Always follow your healthcare professional's instructions.Chest Bruise (Contusion) 5 General Instructions [facility] Emergency Department [address] [place] [address] Phone #: ext- [phone] 11/27/2020 15:12 Patient: [...] damp with warm water. 6 General Instructions [facility] Emergency Department [address] [place] [address] Phone #: ext- [phone] 11/27/2020 15:12 Patient: DONALD ARMANDO Sex: F : 1945 Age: 75y Hold a pillow to the affected area when you cough. This will help ease pain. You may use oalu-hlq-cyhcdoz pain medicine such as acetaminophen or ibuprofen [...] suddenly or lasts more than an hour [phone] [employer]. [address] [place] [address]. All rights reserved. This information is not [...] ulcer or digestive bleeding. 7 General Instructions [facility] Emergency Department [address] [place] [address] Phone #: oul- [phone] 11/27/2020 15:12 Patient: DONALD ARMADNO Sex: F : 1945 Age: 75y Elevate [...] individual fingers. Frequent bruising for unknown reasons [phone] [employer]. [address] [place] [address]. All rights reserved. This information is not [...] ulcer or digestive bleeding. 8 General Instructions [facility] Emergency Department [address] [place] [address] Phone #: ext- [phone] 11/27/2020 15:12 Patient: [...] injured area Frequent bruising for unknown reasons [phone] [employer]. [address] [place] [address], [place] [address]. All rights reserved. This information is not [...] first week of treatment. 9 General Instructions [facility] Emergency Department [address] [place] [address] Phone #: ext- [phone] 11/27/2020 15:12 Patient: DONALD ARMANDO Sex: Barbara : 1945 Age: 75yHome careFollow these guidelines [...] smoke in your home. 10 General Instructions [facility] Emergency Department [address] [place] [address] Phone #: ext- [phone] 11/27/2020 15:12 Patient: DONALD ARMANDO Sex: F : 1945 Age: 75y Prevent lung infections. Ask your healthcare provider about the flu and pneumonia vaccines. Take steps to prevent colds and other lung infections. Practice correct handwashing. Wash your hands often with soap and water. Use hand [employer] when you can't wash your hands. Stay [...] about whichpneumococcal vaccine is best for you.Call [phone] any of these occur: 11 General Instructions [facility] Emergency Department [address] [place] [address] Phone #: ext- [phone] 11/27/2020 15:12 Patient: [...] Symptoms that get worse or not improving [phone] [employer]. [address] [place] [address]. All rights reserved. This information is not intendedas a substitute for professional medical care. Always follow your healthcare professional's instructions. You have been given the following additional information: Mechanical Fall Chest Wall Contusion 12 General Instructions [facility] Emergency Department [address] [place] [address] Phone #: ext- [phone] 11/27/2020 15:12 Patient: DONALD ARMANDO Sex: F : 1945 Age: 75y Contusion, Upper Extremity Contusion, Lower Extremity Pneumonia (Adult)(Electronically signed by SHIRA Medina 11/27/2020 21:39) Name Value Range Interpretation Code Description Data Ro rce(s) Supporting Document(s) ID Date Data Source [id number] 11/27/2020 03:26:00 PM EDT [facility] 1 Clinical Report - Nurses [facility] Emergency Department [address] [place] [address] Phone #: ext- [phone] 11/27/2020 15:12 Patient: [...] axillary area, and bruised her right knee).Treatment DISH TECHNICIAN:None.SEPSIS SCREEN: SIRS SCREEN NEGATIVE. SEPSIS SCREEN NEGATIVE. No suspected or conf irmedsigns of infection present.KERRI COMA SCORE: 15- eyes open- spontaneous (4); best verbal response- oriented (5); bestmotor response- obeys commands (6). --15:31 11/27/20 Osmar Whalen RN15:25 11/27/20. BP: 105/75. MAP: 85. HR: 75. RR: 18. O2 saturation: 96%. Temp: 97.9 F. Pain level now:05/18. --15:31 11/27/20 Osmar Whlaen RN.Weight: 73.4 kg stated. Height/Length: 63 inches [...] at bedtime. 2 Clinical Report - Nurses [facility] Emergency Department [address] [place] [address] Phone #: ext- [phone] 11/27/2020 15:12 Patient: [...] palpation to 3 Clinical Report - Nurses [facility] Emergency Department [address] [place] [address] Phone #: ext- [phone] 11/27/2020 15:12 Patient: DONALD ARMANDO Sex: F [...] monitor and NIBP monitor placed on patient; cardiac technician- Lead II; monitor alarms on.Extremity elevated. Patient gowned. Reassurance given. Call light placed in reach. Side rails up x 2.Bed placed in lowest position. Brakes of bed on. Patient ready for evaluation- ED physician notified.--15:35 11/27/20 Osmar Whalen RN Patient transported to CT by stretcher with mask and bulk mail technician. --16:15 11/27/20 [place] dice spotter, Frankly Chat, ER Tech1 Correction --16:15 11/27/20 [place] dice spotter, Frankly Chat, ER Tech1 Patient transported to radiology by stretcher with bulk mail technician. --16:16 11/27/20 [place] dice spotter, Frankly Chat, ER Tech1 Patient ID band checked for patient name and birthdate: patient confirmed. Instructions provided to collect clean catch urine and patient verbalized understanding. Clean catch urine collected with return of yellow-colored clear urine; sample sent to lab for urinalysis and culture. Specimen labeled in the presence of the patient. --16:55 11/27/20 [place] dice spotter, Frankly Chat, ER Tech1 16:55 11/27/2020 Tylenol (APAP) PO [...] Patient verbalized understanding. Written instructions provided in [place]. The patient was discharged by the physician assistant teacher primary. She was discharged home and accompanied by family. She left in a wheelchair and via private vehicle. Family member driving. --17:44 11/27/20 Osmar Whalen RN 17:43 11/27/20. BP: 118/65. MAP: 82. HR: 71. RR: 18. O2 saturation: 96%. Pain level now: 02/15. 4 Clinical Report - Nurses [facility] Emergency Department [address] [place] [address] Phone #: ext- [phone] 11/27/2020 15:12 Patient: DONALD ARMANDO Sex: F : 1945 Age: 75y --17:44 11/27/20 Osmar Whalen RN.Locked/Released at 11/27/2020 17:44 by Osmar Whalen RN Name Value Range Interpretation Code Description Data Ro rce(s) Supporting Document(s) ID Date Data Source [id number] 11/27/2020 03:26:00 PM EDT [facility] 1 Clinical Report - Physicians/Mid Levels [facility] Emergency Department [address] [place] [address] Phone #: ext- [phone] 11/27/2020 15:12 Patient: [...] bedtime. 2 Clinical Report - Physicians/Mid Levels [facility] Emergency Department [address] [place] [address] Phone #: ext- [phone] 11/27/2020 15:12 Patient: DONALD ARMANDO Sex: F : 1945 Age: 75y Ventolin HFA Inhalation. Vitamin B12 Oral. Vitamin D3 Oral 50mcg, daily. Allergies: Codeine. Dilantin.SOCIAL HISTORYFormer smoker. No alcohol use or drug use.PHYSICAL EXAMVital Signs: 11/27/2020 15:25 BP: 105/75. MAP: 85. HR: 75. RR: 18. O2 saturation: 96%. Temp: 97.9 F.Pain level now: 05/18. Have been reviewed as normal. Oxygen saturation [...] time: 16:51 11/27/2020.PROGRESS AND PROCEDURESCourse of Care: 17:Nov 27 2020. (Discussed x-ray findings and pt is agreeable with dx and tx plan.). Patient counseled in person regarding the patient's stable condition, test results, diagnosis and need for 3 Clinical Report - Physicians/Mid Levels [facility] Emergency Department [address] [place] [address] Phone #: ext- [phone] 11/27/2020 15:12 Patient: DONALD ARMANDO Sex: F [...] - Discounted [facility]: $217.82. Adjudicate with: BIN:[id number] PCN:BIJAN Group:EMR ID:[id number]. Phone:[phone]. [id number] [id number]. . 4 Clinical Report - Physicians/[facility] Emergency Department [address] [place] [address] Phone #: ext- [phone] 11/27/2020 15:12 Patient: DONALD ARMANDO Sex: F : 1945 Age: 75y azithromycin 250 mg tablet -- Take 2 tablets on the first day then one tablet daily for 4 days, total duration is 5 days. Dispense 6 tablet. Refills: 0. Substitution permitted. Pharmacy - [facility] #[id number] [facility] [place], [place] [id number]. . gabapentin 100 mg capsule Take 1 capsule three times a day for 30 days -- Dispense 90 capsule. Refills: 0. Substitution permitted. Note to Pharmacy - Discounted [facility]: $19.99. Adjudicate with: BIN:[id number] PCN:CHIPPO Group:EMR ID:[id number]. Phone:[phone]. [facility] #[id number] - [address] [place], [place] [id number]. FaxNumber: [phone]. Follow-up: Follow up with your doctor in three days if not better. Reason for referral: evaluation and treatment. Summary of care provided to patient. Understanding of the discharge instructions verbalized by patient.(Electronically signed by SHIRA Medina 11/27/2020 21:39) Name Value Range Interpretation Code Description Data Ro rce(s) Supporting Document(s) ID Date Data Source [id number] 11/27/2020 04:45:00 PM EDT [facility] (Silver Peterson [...] SOURCE: Clean Catch ID Date Data Source [id number] 11/27/2020 05:14:00 PM EDT [facility] Name Value Range Interpretation Code Description Data Ro rce(s) Supporting Document(s) URINALYSIS [facility] UR[facility]ALYSIS [facility] COL[facility] yellow NORMAL: Yellow [facility]ital CLARITY clear NORMAL: Clear [facility] Specific gravity of Urine by Test strip 1.020 1.001 - 1.030 [facility] pH 5 5 - 9 [facility] al Glucose [Mass/volume] in Urine by Test strip NORM NORMAL: Negat [facility] Bilirubin.total [Presence] in Urine by Test strip NEG NORMAL: Negative [facility] Ketones [Presence] in Urine by Test strip NEG NORMAL: Negative [facility] Protein [Mass/volume] in Urine by Test strip NEG NORMAL: Negat [facility] Nitrite [Presence] in Urine by Test strip NEG NORMAL: Negative [facility] BLOOD NEG NORMAL: Negative [facility] Leukocyte esterase [Presence] in Urine by Test strip NEG FARRUKH L: Negative [facility] Urobilinogen [Mass/volume] in Urine by Test strip NOR less joyce n 1.0 mg/dL [facility] MICROSCOPIC Not Indicate [facility] ID Date Data Source [id number] 09/13/2020 01:40:00 PM EST [facility] [address] [place] [address] PHONE: [phone] FAX: [phone] Name .................. : TR Childerst Number.................. : [id number] ROOM. ................. : MR Number ................... : [id number] Stay type ............. : O/P Discharge Date......... ... : 09/12/20 Admit Date ......... : 09/12/20 Admit Phys .................... : REY PAUL Date of ....... : 1945 Family Phys ................... : [employer] Phone .................. : [phone] Age ................................ : 75 Film# .................. .:[id number] Sex ................................. : F Unsigned transcriptions are preliminary reports and do not represent a medical or legal document [place] [id number] COMPLETE:09/12/20 15:25 KBO 1498 (REASON FOR PROCESS: [...] CASPER RACHEL via modem Copy for: [facility] REC Page 1 of 1 Name Value Range Interpretation Code Description Data Ro rce(s) Supporting Document(s) ID Date Data Source [id number] 09/13/2020 01:40:00 PM EST [facility] [address] [place] [address] PHONE: [phone] FAX: [phone] Name .................. : TR Whitley Acct Number.................. : [id number] ROOM. ................. : MR Number ................... : [id number] Stay type ............. : O/P Discharge Date......... ... : 09/12/20 Admit Date ......... : 09/12/20 Admit Phys .................... : REY PAUL Date of ....... : 1945 Family Phys ................... : ENAPHILLIPFRANCISCA Phone .................. : [phone] Age ................................ : 75 Film# .................. .:[id number] Sex ................................. : F Unsigned transcriptions are preliminary reports and do not represent a medical or legal document SPINE LS COMPLETE [id number] COMPLETE:09/12/20 15:25 KBO 1497 (SPINE PROC REASON: [...] through S1. Electronically Reviewed and Signed By Robret Gilliland M.D. , 09/13/20 13:40, [facility] Transcribe Initials: KIRIT , Transcribe Date: 09/12/20 17:14, Dictation Date: Copy for: REY LOFTON via modem Copy for: CASPER RACHEL via modem Copy for: Laura MED REC Page 1 of 1 Name Value Range Interpretation Code Description Data Ro rce(s) Supporting Document(s) ID Date Data Source [id number] 09/12/2020 01:25:00 PM EST [facility] (Silver Peterson [...] >32 mL/min Normal ID Date Data Source [id number] 09/12/2020 01:25:00 PM EST [facility] (Silver Peterson [...] (navigational concept) 10.4 fL 7.4-10.4 [facility] (Silver Peterosn MD) Laboratory test finding (navigational concept) 17.2 [...] Peterson MD) COMMENT: ID Date Data Source [id number] 09/12/2020 02:48:00 PM EST [facility] Name Value Range Interpretation Code Description Data Ro rce(s) Supporting Document(s) COMPREHENSIVE METABOLIC PANEL [facility] COMPREHENSIVE METABOLIC PANEL Sodium [Moles/volume] in Serum or Plasma 144 mEq/L 134 - 153 [facility] Potassium [Moles/volume] in Serum or Plasma 5.2 mEq/L 3.6 - 5.0 H [facility] Chloride [Moles/volume] in Serum or Plasma 101 mEq/L 98 - 107 [facility] Carbon dioxide, total [Moles/volume] in Serum or Plasma 33 MEQ/L 22 - 30 H [facility] Glucose [Mass/volume] in Serum or Plasma 62 MG/DL 65 - 110 L [facility] BUN 62 MG/DL 7 - 21 H [facility] al Creatinine [Mass/volume] in Serum or Plasma 3.0 MG/DL 0.7 - 1.5 H [facility] BUN/CREAT 21 8 - 27 [facility] al Protein [Mass/volume] in Serum or Plasma 6.7 G/DL 6.3 - 8.2 [facility] Albumin [Mass/volume] in Serum or Plasma 4.0 G/DL 3.9 - 5.0 [facility] Globulin [Mass/volume] in Serum by calculation 2.7 GM/DL 2.4 - 3.2 [facility] A/G RATIO 1.5 0.8 - 2.0 [facility] Calcium [Mass/volume] in Serum or Plasma 9.5 MG/DL 8.4 - 10.2 [facility] Bilirubin.total [Mass/volume] in Serum or Plasma <0.7 MG/DL 0.2 - 1.3 [facility] Alkaline phosphatase [Enzymatic activity/volume] in Serum or Plasma 76 U/L 38 - 126 [facility] Aspartate aminotransferase [Enzymatic activity/volume] in Serum or Plasma 10 U/L 5 - 40 [facility] Alanine aminotransferase [Enzymatic activity/volume] in Seru m or Plasma 8 U/L 7 - 56 [facility] Anion gap 3 in Serum or Plasma 10.0 mmol/L 8.0 - 16.0 [facility] AGE 75 yrs [facility] NON-AA GFR 16 mL/min [facility] AFR AMER GFR >60 [facility] Male GFR In terprentation [...] >32 mL/min Normal ID Date Data Source [id number] 09/12/2020 02:08:00 PM EST [facility] Name Value Range Interpretation Code Description Data Ro rce(s) Supporting Document(s) CBC W/AUTOMATED DIFF [facility] COMPLETE BLOOD COUNT Leukocytes [#/volume] in Blood by Automated count 9.1 10^3/uL 4.2 - 1 1.0 [facility] Erythrocytes [#/volume] in Blood by Automated count 3.20 10^6/uL 4. 20 - 5.40 L [facility] Hemoglobin [Mass/volume] in Blood 9.9 g/dL 12.0 - 16.0 L [facility] Hematocrit [Volume Fraction] of Blood by Automated count 32.5 % 3 7.0 - 47.0 L [facility] Erythrocyte mean corpuscular volume [Entitic volume] b y Automated count 101.6 fL 81.0 - 101 H [facility] Erythrocyte mean corpuscular hemoglobin [Entitic mass] by Automated count 30.9 pg 27.0 - 34.0 [facility] Erythrocyte mean corpuscular hemoglobin concentration [Mass/volume] by Automated count 30.5 g/dL 31.0 - 36.0 L [facility] Erythrocyte distribution width [Ratio] by Automated count 17.1 % 11.5 - 14.5 H [facility] Platelets [#/volume] in Blood by Automated count 272 10^3/uL 150 - 45 0 [facility] Platelet mean volume [Entitic volume] in Blood by Automated count 10.4 fL 7.4 - 10.4 [facility] Neutrophils/100 leukocytes in Blood by Automated count 65.8 % 37. 0 - 80.0 [facility] Lymphocytes/100 leukocytes in Blood by Manual count 17.2 % 25.0 - 40.0 L [facility] Monocytes/100 leukocytes in Blood by Automated count 12.2 % 3.0 - 8.0 H [facility] Eosinophils/100 leukocytes in Blood by Automated count 3.2 % 0.0 - 7.0 [facility] 0.5 %IG 1.1 % 0.0 - 0.0 H [facility] %NRBC 0.0 % 0.0 - 0.0 [facility] Neutrophils [#/volume] in Blood by Automated count 5.99 10^3/uL 2.00 - 6.90 [facility] Lymphocytes [#/volume] in Blood by Automated count 1.57 10^3/uL 0.60 - 3.40 [facility] Monocytes [#/volume] in Blood by Automated count 1.11 10^3/uL 0.00 - 0.90 H [facility] Eosinophils [#/volume] in Blood by Automated count 0.29 10^3/uL 0.00 - 0.70 [facility] Basophils [#/volume] in Blood by Automated count 0.05 10^3/uL 0.00 - 0.20 [facility] #IG 0.10 10^3/uL 0.00 - 0.10 [facility] #NRBC 0.00 10^3/uL 0.00 - 0.00 [facility]ital MANUAL DIFF SEE BELOW [facility] ital Segmented neutrophils/100 leukocytes in Blood by Manual count 71 % 37 - 80 [facility] BAND 1 % 0 - 5 [facility] al %LYMPH 11 % 25 - 40 L [facility] %MONO 14 % 3 - 8 H [facility] %EOS 1 % 0 - 7 [facility] 2 RBC MORPH SEE BELOW [facility] Anisocytosis [Presence] in Blood by Light microscopy 1+ FARRUKH L: NONE SEEN A [facility] Macrocytes [Presence] in Blood by Light microscopy 1+ NORMAL: NONE SEEN A [facility] Poikilocytosis [Presence] in Blood by Light microscopy 1+ NOR MAL: NONE SEEN A [facility] { SICKLE CELL (NORMAL: NONE SEEN ) Ovalocytes [Presence] in Blood by Light microscopy 1+ NORMAL: NONE SEEN A [facility] Platelet adequacy [Presence] in Blood by Light microscopy NORMAL NORMAL: NORMAL [facility] COMMENT: ID Date Data Source [id number] 08/09/2020 02:36:00 PM EST [facility] (Silver Peterson [...] % 3.0-8.0 Above high normal [facility] (Silver Peterosn MD) Laboratory test finding (navigational concept) 1.5 [...] COMMENT: _0 08/09/20.1609.TAD. ID Date Data Source [id number] 08/09/2020 02:36:00 PM EST [facility] (Silver Peterson [...] >32 mL/min Normal ID Date Data Source [id number] 08/09/2020 02:36:00 PM EST [facility] (Silver Peterson [...] (Silver Peterson MD) ID Date Data Source [id number] 08/09/2020 04:09:00 PM EST [facility] Name Value Range Interpretation Code Description Data Ro rce(s) Supporting Document(s) CBC W/AUTOMATED DIFF [facility] COMPLETE BLOOD COUNT Leukocytes [#/volume] in Blood by Automated count 11.4 10^3/uL 4.2 - 11.0 H [facility] Erythrocytes [#/volume] in Blood by Automated count 3.80 10^6/uL 4. 20 - 5.40 L [facility] Hemoglobin [Mass/volume] in Blood 11.5 g/dL 12.0 - 16.0 L [facility] Hematocrit [Volume Fraction] of Blood by Automated count 37.9 % 3 7.0 - 47.0 [facility] Erythrocyte mean corpuscular volume [Entitic volume] by Auto mated count 99.7 fL 81.0 - 101 [facility] Erythrocyte mean corpuscular hemoglobin [Entitic mass] by Automated count 30.3 pg 27.0 - 34.0 [facility] Erythrocyte mean corpuscular hemoglobin concentration [Mass/volume] by Automated count 30.3 g/dL 31.0 - 36.0 L [facility] Erythrocyte distribution width [Ratio] by Automated count 17.2 % 11.5 - 14.5 H [facility] Platelets [#/volume] in Blood by Automated count 287 10^3/uL 150 - 45 0 [facility] Platelet mean volume [Entitic volume] in Blood by Automated count 10.5 fL 7.4 - 10.4 H [facility] Neutrophils/100 leukocytes in Blood by Automated count 70.6 % 37. 0 - 80.0 [facility] Lymphocytes/100 leukocytes in Blood by Manual count 14.1 % 25.0 - 40.0 L [facility] Monocytes/100 leukocytes in Blood by Automated count 9.8 % 3.0 - 8.0 H [facility] Eosinophils/100 leukocytes in Blood by Automated count 1.5 % 0.0 - 7.0 [facility] Basophils/100 leukocytes in Blood by Automated count 0.7 % 0.0 - 2.5 [facility] %IG 3.3 % 0.0 - 0.0 H [facility] %NRBC 0.0 % 0.0 - 0.0 [facility] al Neutrophils [#/volume] in Blood by Automated count 8.04 10^3/uL 2.00 - 6.90 H [facility] Lymphocytes [#/volume] in Blood by Automated count 1.60 10^3/uL 0.60 - 3.40 [facility] Monocytes [#/volume] in Blood by Automated count 1.11 10^3/uL 0.00 - 0.90 H [facility] Eosinophils [#/volume] in Blood by Automated count 0.17 10^3/uL 0.00 - 0.70 [facility] Basophils [#/volume] in Blood by Automated count 0.08 10^3/uL 0.00 - 0.20 [facility] #IG 0.37 10^3/uL 0.00 - 0.10 H [facility] #NRBC 0.00 10^3/uL 0.00 - 0.00 [facility] MANUAL DIFF SEE BELOW [facility] ital Segmented neutrophils/100 leukocytes in Blood by Manual count 78 % 37 - 80 [facility] %LYMPH 16 % 25 - 40 L [facility] %MONO 4 % 3 - 8 [facility] %EOS 2 % 0 - 7 [facility] al RBC MORPH SEE BELOW [facility] Anisocytosis [Presence] in Blood by Light microscopy 1+ FARRUKH L: NONE SEEN A [facility] { SICKLE CELL (NORMAL: NONE SEEN ) Platelet adequacy [Presence] in Blood by Light microscopy NORMAL NORMAL: NORMAL [facility] COMMENT: _0 08/09/20.1609.TAD. ID Date Data Source [id number] 08/09/2020 04:02:00 PM EST [facility] Name Value Range Interpretation Code Description Data Ro rce(s) Supporting Document(s) COMPREHENSIVE METABOLIC PANEL [facility] COMPREHENSIVE METABOLIC PANEL Sodium [Moles/volume] in Serum or Plasma 142 mEq/L 134 - 153 [facility] Potassium [Moles/volume] in Serum or Plasma 5.1 mEq/L 3.6 - 5.0 [facility] Chloride [Moles/volume] in Serum or Plasma 101 mEq/L 98 - 107 [facility] Carbon dioxide, total [Moles/volume] in Serum or Plasma 32 MEQ/L 22 - 30 [facility] Glucose [Mass/volume] in Serum or Plasma 126 MG/DL 65 - 110 [facility] BUN 57 MG/DL 7 - 21 [facility] Creatinine [Mass/volume] in Serum or Plasma 2.4 MG/DL 0.7 - 1.5 [facility] BUN/CREAT 24 8 - 27 [facility] Protein [Mass/volume] in Serum or Plasma 6.7 G/DL 6.3 - 8.2 [facility] Albumin [Mass/volume] in Serum or Plasma 4.1 G/DL 3.9 - 5.0 [facility] Globulin [Mass/volume] in Serum by calculation 2.6 GM/DL 2.4 - 3.2 [facility] A/G RATIO 1.6 0.8 - 2.0 [facility] al Calcium [Mass/volume] in Serum or Plasma 9.6 MG/DL 8.4 - 10.2 [facility] Bilirubin.total [Mass/volume] in Serum or Plasma <0.7 MG/DL 0.2 - 1.3 [facility] Alkaline phosphatase [Enzymatic activity/volume] in Serum or Plasma 65 U/L 38 - 126 [facility] Aspartate aminotransferase [Enzymatic activity/volume] in Se rum or Plasma 8 U/L 5 - 40 [facility] Alanine aminotransferase [Enzymatic activity/volume] in Seru m or Plasma 7 U/L 7 - 56 [facility] Anion gap 3 in Serum or Plasma 9.0 mmol/L 8.0 - 16.0 [facility]GE 75 [facility] 21 [facility]/min [facility] AFR AMER GFR >60 [facility] Male GFR In terprentation [...] >32 mL/min Normal ID Date Data Source [id number] 08/09/2020 04:02:00 PM EST [facility] Name Value Range Interpretation Code Description Data Ro rce(s) Supporting Document(s) Magnesium [Mass/volume] in Serum or Plasma 1.5 MG/DL 1.7 - 2.2 L [facility] ID Date Data Source [id number] 08/09/2020 04:02:00 PM [facility] Name Value Range Interpretation Code Description Data Ro rce(s) Supporting Document(s) Iron [Mass/volume] in Serum or Plasma 75 UG/DL 42 - 135 [facility] ID Date Data Source [id number] 08/09/2020 04:02:00 PM [facility] Name Value Range Interpretation Code Description Data Ro rce(s) Supporting Document(s) BNP 1329 PG/ML 0 - 125 [facility] booker ID Date Data Source [id number] 08/09/2020 03:48:00 PM [facility] Name Value Range Interpretation Code Description Data Ro rce(s) Supporting Document(s) Fibrin D-dimer FEU [Mass/volume] in Platelet poor plasma 3.96 ug /mL 0.27 - 0.50 [facility] ID Date Data Source [id number] 06/12/2020 10:46:00 [place] [address] PROGRESS NOTENAME: TR Whitley ROOM#: 119-1DATE OF : 1945 MR#: [id number] DATE: 05/28/20 OF SERVICE: 06/12/2020SUBJECTIVE:This patient has [...] rce(s) Supporting Document(s) ID Date Data Source [id number] 06/15/2020 02:17:00 [place] [address] DISCHARGE SUMMARYNAME: TR Whitley ROOM#: 119-1DATE OF : 1945 MR#: [id number] PHYS: Silver Peterson MD, PC DATE: 05/28/20 [...] ring because of regurgitation. [facility]. On examination, blood pressure was 130/80. Head [...] was 46, creatinine was 2.1. BNP was [address]. On 06/04, sodium was 143, potassiumwas 4.3, [...] IV was given for low hemoglobin. 1 [place] [address] DISCHARGE SUMMARYNAME: TR Whitley ROOM#: 119-1DATE OF : 1945 MR#: [id number] PHYS: Silver Peterson MD, PC DATE: 05/28/20 [...] 1 mg daily6. Gabapentin 100 mg b.i.d.7. [place] was stopped.8. Protonix 40 mg daily9. Plavix was stopped.10. Venlafaxine 60 mg daily11. Ventolin inhaler p.r.n.12. Metformin was vcijqrp96. Januvia was added at 50 mg daily [...] valve ring.5. History of atrial fibrillation 2 [place] [address] DISCHARGE SUMMARYNAME: TR Whitley ROOM#: 119-1DATE OF : 1945 MR#: [id number] PHYS: Silver Peterson MD, DATE: 05/28/20 DISCHARGED: 06/13/20 6. History of [...] rce(s) Supporting Document(s) ID Date Data Source [id number] 06/13/2020 12:18:00 [place] [address] PHONE: [phone] FAX: [phone] Name .................. : TR Whitley Acct Number.................. : [id number] ROOM. ................. : 119-1 MR Number ................... : [id number] Stay type ............. : I/P Discharge Date......... ... : Admit Date ......... : 05/28/20 Admit Phys .................... : REY BEVERLY Date of ....... : 1945 Family Phys ................... : [employer] Phone .................. : [phone] Age ................................ : 75 Film# .................. .:[id number] Sex ................................. : F Unsigned transcriptions are preliminary reports and do not represent a medical or legal document RENAL/URINARY BLADDER [id number] COMPLETE:06/11/20 12:38 BA [address]13 (PROCEDURE REASON :HYDRONEPHROSIS RENAL AND BLADDER ULTRASOUND: [...] MD , 06/13/20 12:18, TANISHA Transcribe Initials: DZ , Transcribe Date: 06/11/20 16:52, Dictation Date: Copy for: 710 MED REC DISCHARGED Page 1 of 1 Name Value Range Interpretation Code Description Data Ro rce(s) Supporting Document(s) ID Date Data Source [id number] 06/13/2020 07:09:00 AM EDT [facility] Name Value Range Interpretation Code Description Data Ro rce(s) Supporting Document(s) CBC W/AUTOMATED DIFF [facility] COMPLETE BLOOD COUNT Leukocytes [#/volume] in Blood by Automated count 6.4 10^3/uL 4.2 - 1 1.0 [facility] Erythrocytes [#/volume] in Blood by Automated count 2.92 10^6/uL 4. 20 - 5.40 L [facility] Hemoglobin [Mass/volume] in Blood 8.8 g/dL 12.0 - 16.0 L [facility] Hematocrit [Volume Fraction] of Blood by Automated count 29.9 % 3 7.0 - 47.0 L [facility] Erythrocyte mean corpuscular volume [Entitic volume] b y Automated count 102.4 fL 81.0 - 101 [facility] Erythrocyte mean corpuscular hemoglobin [Entitic mass] by Automated count 30.1 pg 27.0 - 34.0 [facility] Erythrocyte mean corpuscular hemoglobin concentration [Mass/volume] by Automated count 29.4 g/dL 31.0 - 36.0 L [facility] Erythrocyte distribution width [Ratio] by Automated count 17.0 % 11.5 - 14.5 [facility] Platelets [#/volume] in Blood by Automated count 227 10^3/uL 150 - 45 0 [facility] Platelet mean volume [Entitic volume] in Blood by Automated count 9.8 fL 7.4 - 10.4 [facility] Neutrophils/100 leukocytes in Blood by Automated count 64.1 % 37. 0 - 80.0 [facility] Lymphocytes/100 leukocytes in Blood by Manual count 11.7 % 25.0 - 40.0 L [facility] Monocytes/100 leukocytes in Blood by Automated count 14.5 % 3.0 - 8.0 H [facility] Eosinophils/100 leukocytes in Blood by Automated count 8.3 % 0.0 - 7.0 H [facility] Basophils/100 leukocytes in Blood by Automated count 0.5 % 0.0 - 2.5 [facility] %IG 0.9 % 0.0 - 0.0 [facility] %NRBC 0.0 % 0.0 - 0.0 [facility] al Neutrophils [#/volume] in Blood by Automated count 4.07 10^3/uL 2.00 - 6.90 [facility] Lymphocytes [#/volume] in Blood by Automated count 0.74 10^3/uL 0.60 - 3.40 [facility] Monocytes [#/volume] in Blood by Automated count 0.92 10^3/uL 0.00 - 0.90 [facility] Eosinophils [#/volume] in Blood by Automated count 0.53 10^3/uL 0.00 - 0.70 [facility] Basophils [#/volume] in Blood by Automated count 0.03 10^3/uL 0.00 - 0.20 [facility] #IG 0.06 10^3/uL 0.00 - 0.10 [facility] #NRBC 0.00 10^3/uL 0.00 - 0.00 [facility] ospital MANUAL DIFF NOT INDICATED [facility] RBC MORPH NOT INDICATED [facility] ID Date Data Source [id number] 06/13/2020 07:06:00 AM EDT [facility] Name Value Range Interpretation Code Description Data Ro rce(s) Supporting Document(s) COMPREHENSIVE METABOLIC PANEL [facility] COMPREHENSIVE METABOLIC PANEL Sodium [Moles/volume] in Serum or Plasma 144 mEq/L 134 - 153 [facility] Potassium [Moles/volume] in Serum or Plasma 4.5 mEq/L 3.6 - 5.0 [facility] Chloride [Moles/volume] in Serum or Plasma 104 mEq/L 98 - 107 [facility] Carbon dioxide, total [Moles/volume] in Serum or Plasma 35 MEQ/L 22 - 30 [facility] Glucose [Mass/volume] in Serum or Plasma 98 MG/DL 65 - 110 [facility] BUN 41 MG/DL 7 - 21 H [facility] Creatinine [Mass/volume] in Serum or Plasma 1.9 MG/DL 0.7 - 1.5 [facility] BUN/CREAT 22 8 - 27 [facility] Protein [Mass/volume] in Serum or Plasma 5.3 G/DL 6.3 - 8.2 L [facility] Albumin [Mass/volume] in Serum or Plasma 3.3 G/DL 3.9 - 5.0 L [facility] Globulin [Mass/volume] in Serum by calculation 2.0 GM/DL 2.4 - 3.2 L [facility] A/G RATIO 1.7 0.8 - 2.0 [facility] Calcium [Mass/volume] in Serum or Plasma 8.7 MG/DL 8.4 - 10.2 [facility] Bilirubin.total [Mass/volume] in Serum or Plasma <0.7 MG/DL 0.2 - 1.3 [facility] Alkaline phosphatase [Enzymatic activity/volume] in Serum or Plasma 94 U/L 38 - 126 [facility] Aspartate aminotransferase [Enzymatic activity/volume] in Serum or Plasma 14 U/L 5 - 40 [facility] Alanine aminotransferase [Enzymatic activity/volume] in Seru m or Plasma 25 U/L 7 - 56 [facility] Anion gap 3 in Serum or Plasma 5.0 mmol/L 8.0 - 16.0 L [facility] AGE 75 yrs [facility] al NON-AA GFR 28 mL/min [facility] AFR AMER GFR >60 [facility] Male GFR In terprentation [...] >32 mL/min Normal ID Date Data Source [id number] 06/12/2020 01:24:00 PM EDT [facility] [address] [place] [address] PHONE: [phone] FAX: [phone] Name .................. : TR Whitley Acct Number.................. : [id number] ROOM. ................. : 119-1 MR Number ................... : [id number] Stay type ............. : I/P Discharge Date......... ... : Admit Date ......... : 05/10 Admit Phys .................... : REY BEVERLY Date of ....... : 1945 Family Phys ................... : [employer] Phone .................. : [phone] Age ................................ : 75 Film# .................. .:[id number] Sex ................................. : F Unsigned transcriptions are preliminary reports and do not represent a medical or legal document CT THORAX W/O CONTRAST [id number] COMPLETE:06/09/20 09:55 SAIMA [address]370 (REASON FOR CHEST: EFFUSION CT OF THE [...] By Robert Gilliland M.D. , 06/12/20 13:24, [facility] Page [address] [place] [address] PHONE: [phone] FAX: [phone] Name .................. : TR Whitley Acct Number.................. : [id number] ROOM. ................. : 119-1 MR Number ................... : [id number] Stay type ............. : I/P Discharge Date......... ... : Admit Date ......... : 05/28/20 Admit Phys .................... : REY PAUL Date of ....... : 1945 Family Phys ................... : CASPER Phone .................. : [phone] Age ................................ : 75 Film# .................. .:[id number] Sex ................................. : F Unsigned transcriptions are preliminary reports and do not represent a medical or legal document CT THORAX W/O CONTRAST 19809 COMPLETE:06/09/20 09:55 SAIMA [address] (REASON FOR CHEST: EFFUSION Transcribe Initials: DZ , Transcribe Date: 06/10/20 03:30, Dictation Date: Copy for: 002 MSP Copy for: 710 MED REC Page 2 of 2 Name Value Range Interpretation Code Description Data Ro rce(s) Supporting Document(s) ID Date Data Source [id number] 06/11/2020 11:46:00 [place] [address] PROGRESS NOTENAME: TR Whitley ROOM#: 119-1DATE OF : 1945 MR#: [id number] DATE: 05/28/20 OF SERVICE: 06/11/20UBJECTIVE: This patient [...] be given for anemia.DD: Silver Peterson MD, SHAISTA 06/11/20 11:32DT: RAMIRO 06/11/20 11:41DS: Silver Peterson MD, SHAISTA 06/12/20 07:51 1 Name Value Range Interpretation Code Description Data Ro rce(s) Supporting Document(s) ID Date Data Source [id number] 06/10/2020 11:17:00 [place] [address] PROGRESS NOTENAME: TR Whitley ROOM#: 119-1DATE OF : 1945 MR#: [id number] DATE: 05/28/20 OF SERVICE: 06/10/20UBJECTIVE: This patient's [...] rce(s) Supporting Document(s) ID Date Data Source [id number] 06/09/2020 01:00:00 [place] [address] PROGRESS NOTENAME: TR Whitley ROOM#: 119-1DATE OF : 1945 MR#: [id number] DATE: 05/28/20 OF SERVICE: 06/09/20UBJECTIVE: This patient's [...] rce(s) Supporting Document(s) ID Date Data Source [id number] 06/08/2020 10:48:00 [place] [address] PROGRESS NOTENAME: TR Whitley ROOM#: 119-1DATE OF : 1945 MR#: [id number] DATE: 05/28/20 OF SERVICE: 06/08/2020SUBJECTIVE:This 75-year-old white [...] rce(s) Supporting Document(s) ID Date Data Source [id number] 06/07/2020 10:47:00 [place] [address] PROGRESS NOTENAME: TR Whitley ROOM#: 119-1DATE OF : 1945 MR#: [id number] DATE: 05/28/20 OF SERVICE: 06/07/2020SUBJECTIVE:Patient feels better. [...] rce(s) Supporting Document(s) ID Date Data Source [id number] 06/06/2020 01:48:00 [place] [address] PROGRESS NOTENAME: TR Whitley ROOM#: 119-1DATE OF : 1945 MR#: [id number] DATE: 05/28/20 OF SERVICE: 06/06/2020SUBJECTIVE:This patient is [...] isguarded.DD: Silver Peterson MD, PC 06/06/20 09:54DT: SSR 06/06/20 13:48DS: Silver Peterson MD, PC 06/12/20 07:51 1 Name Value Range Interpretation Code Description Data Ro rce(s) Supporting Document(s) ID Date Data Source [id number] 06/05/2020 11:50:00 [place] [address] PROGRESS NOTENAME: TR Whitley ROOM#: 119-1DATE OF : 1945 MR#: [id number] DATE: 05/28/20 OF SERVICE: 06/05/2020SUBJECTIVE:Patient complains of [...] rce(s) Supporting Document(s) ID Date Data Source [id number] 06/12/2020 06:55:00 AM EDT [facility] Name Value Range Interpretation Code Description Data [facility] rce(s) Supporting Document(s) CBC W/AUTOMATED DIFF [facility] COMPLETE BLOOD COUNT Leukocytes [#/volume] in Blood by Automated count 6.3 10^3/uL 4.2 - 1 1.0 [facility] Erythrocytes [#/volume] in Blood by Automated count 2.81 10^6/uL 4. 20 - 5.40 L [facility] Hemoglobin [Mass/volume] in Blood 8.6 g/dL 12.0 - 16.0 L [facility] Hematocrit [Volume Fraction] of Blood by Automated count 28.9 % 3 7.0 - 47.0 L [facility] Erythrocyte mean corpuscular volume [Entitic volume] b y Automated count 102.8 fL 81.0 - 101 H [facility] Erythrocyte mean corpuscular hemoglobin [Entitic mass] by Automated count 30.6 pg 27.0 - 34.0 [facility] Erythrocyte mean corpuscular hemoglobin concentration [Mass/volume] by Automated count 29.8 g/dL 31.0 - 36.0 L [facility] Erythrocyte distribution width [Ratio] by Automated count 17.0 % 11.5 - 14.5 H [facility] Platelets [#/volume] in Blood by Automated count 203 10^3/uL 150 - 45 0 [facility] Platelet mean volume [Entitic volume] in Blood by Automated count 10.2 fL 7.4 - 10.4 [facility] Neutrophils/100 leukocytes in Blood by Automated count 66.5 % 37. 0 - 80.0 [facility] Lymphocytes/100 leukocytes in Blood by Manual count 11.4 % 25.0 - 40.0 L [facility] Monocytes/100 leukocytes in Blood by Automated count 13.4 % 3.0 - 8.0 H [facility] Eosinophils/100 leukocytes in Blood by Automated count 7.6 % 0.0 - 7.0 H [facility] 0.3 %IG 0.8 % 0.0 - 0.0 [facility] %NRBC 0.0 % 0.0 - 0.0 [facility] al Neutrophils [#/volume] in Blood by Automated count 4.18 10^3/uL 2.00 - 6.90 [facility] Lymphocytes [#/volume] in Blood by Automated count 0.72 10^3/uL 0.60 - 3.40 [facility] Monocytes [#/volume] in Blood by Automated count 0.84 10^3/uL 0.00 - 0.90 [facility] Eosinophils [#/volume] in Blood by Automated count 0.48 10^3/uL 0.00 - 0.70 [facility] Basophils [#/volume] in Blood by Automated count 0.02 10^3/uL 0.00 - 0.20 [facility] #IG 0.05 10^3/uL 0.00 - 0.10 [facility] #NRBC 0.00 10^3/uL 0.00 - 0.00 [facility] MANUAL DIFF SEE BELOW [facility] ital Segmented neutrophils/100 leukocytes in Blood by Manual count 73 % 37 - 80 [facility] BAND 0 % 0 - 5 [facility] al %LYMPH 13 % 25 - 40 L [facility] al %MONO 6 % 3 - 8 [facility] %EOS 8 % 0 - 7 H [facility] al 0 RBC MORPH NOT INDICATED [facility] spital ID Date Data Source [id number] 06/12/2020 06:54:00 AM EDT [facility] Name Value Range Interpretation Code Description Data Ro rce(s) Supporting Document(s) COMPREHENSIVE METABOLIC PANEL [facility] COMPREHENSIVE METABOLIC PANEL Sodium [Moles/volume] in Serum or Plasma 143 mEq/L 134 - 153 [facility] Potassium [Moles/volume] in Serum or Plasma 4.4 mEq/L 3.6 - 5.0 [facility] Chloride [Moles/volume] in Serum or Plasma 101 mEq/L 98 - 107 [facility] Carbon dioxide, total [Moles/volume] in Serum or Plasma 36 MEQ/L 22 - 30 H [facility] Glucose [Mass/volume] in Serum or Plasma 115 MG/DL 65 - 110 H [facility] BUN 44 MG/DL 7 - 21 H [facility] al Creatinine [Mass/volume] in Serum or Plasma 2.7 MG/DL 0.7 - 1.5 H [facility] BUN/CREAT 16 8 - 27 [facility] al Protein [Mass/volume] in Serum or Plasma 5.6 G/DL 6.3 - 8.2 L [facility] Albumin [Mass/volume] in Serum or Plasma 3.4 G/DL 3.9 - 5.0 L [facility] Globulin [Mass/volume] in Serum by calculation 2.2 GM/DL 2.4 - 3.2 L [facility] A/G RATIO 1.5 0.8 - 2.0 [facility] Calcium [Mass/volume] in Serum or Plasma 8.2 MG/DL 8.4 - 10.2 L [facility] Bilirubin.total [Mass/volume] in Serum or Plasma <0.7 MG/DL 0.2 - 1.3 [facility] Alkaline phosphatase [Enzymatic activity/volume] in Serum or Plasma 96 U/L 38 - 126 [facility] Aspartate aminotransferase [Enzymatic activity/volume] in Serum or Plasma 19 U/L 5 - 40 [facility] Alanine aminotransferase [Enzymatic activity/volume] in Seru m or Plasma 29 U/L 7 - 56 [facility] Anion gap 3 in Serum or Plasma 6.0 mmol/L 8.0 - 16.0 L [facility] AGE 75 yrs [facility] al NON-AA GFR 18 mL/min [facility] AFR AMER GFR >60 [facility] pital Male GFR In terprentation 20-49 yrs [...] >32 mL/min Normal ID Date Data Source [id number] 06/04/2020 11:02:00 [place] [address] PROGRESS NOTENAME: TR Whitley ROOM#: 119-1DATE OF : 1945 MR#: [id number] DATE: 05/28/20 OF SERVICE: 06/04/20UBJECTIVE: She was [...] rce(s) Supporting Document(s) ID Date Data Source [id number] 06/03/2020 11:06:00 PM EDT [address] [address] PROGRESS NOTENAME: TR Whitley ROOM#: 119-1DATE OF : 1945 MR#: [id number] DATE: 05/28/20 OF SERVICE: 06/03/20UBJECTIVE: She was [...] Value Range Interpretation Code Description Data Ro e(s) Supporting Document(s) ID Date Data Source [id number] 06/11/2020 08:01:00 AM EDT [facility] Name Value Range Interpretation Code Description Data [facility](s) Supporting Document(s) CBC W/AUTOMATED DIFF [facility] COMPLETE BLOOD COUNT Leukocytes [#/volume] in Blood by Automated count 5.6 10^3/uL 4.2 - 1 1.0 [facility] Erythrocytes [#/volume] in Blood by Automated count 2.90 10^6/uL 4. 20 - 5.40 L [facility] Hemoglobin [Mass/volume] in Blood 8.9 g/dL 12.0 - 16.0 L [facility] Hematocrit [Volume Fraction] of Blood by Automated count 30.2 % 3 7.0 - 47.0 L [facility] Erythrocyte mean corpuscular volume [Entitic volume] b y Automated count 104.1 fL 81.0 - 101 H [facility] Erythrocyte mean corpuscular hemoglobin [Entitic mass] by Automated count 30.7 pg 27.0 - 34.0 [facility] Erythrocyte mean corpuscular hemoglobin concentration [Mass/volume] by Automated count 29.5 g/dL 31.0 - 36.0 L [facility] Erythrocyte distribution width [Ratio] by Automated count 17.3 % 11.5 - 14.5 H [facility] Platelets [#/volume] in Blood by Automated count 198 10^3/uL 150 - 45 0 [facility] Platelet mean volume [Entitic volume] in Blood by Automated count 10.3 fL 7.4 - 10.4 [facility] Neutrophils/100 leukocytes in Blood by Automated count 61.0 % 37. 0 - 80.0 [facility] Lymphocytes/100 leukocytes in Blood by Manual count 13.5 % 25.0 - 40.0 L [facility] Monocytes/100 leukocytes in Blood by Automated count 16.3 % 3.0 - 8.0 H [facility] Eosinophils/100 leukocytes in Blood by Automated count 7.6 % 0.0 - 7.0 H [facility] Basophils/100 leukocytes in Blood by Automated count 0.7 % 0.0 - 2.5 [facility] %IG 0.9 % 0.0 - 0.0 H [facility] al %NRBC 0.0 % 0.0 - 0.0 [facility] al Neutrophils [#/volume] in Blood by Automated count 3.43 10^3/uL 2.00 - 6.90 [facility] Lymphocytes [#/volume] in Blood by Automated count 0.76 10^3/uL 0.60 - 3.40 [facility] Monocytes [#/volume] in Blood by Automated count 0.92 10^3/uL 0.00 - 0.90 H [facility] Eosinophils [#/volume] in Blood by Automated count 0.43 10^3/uL 0.00 - 0.70 [facility] Basophils [#/volume] in Blood by Automated count 0.04 10^3/uL 0.00 - 0.20 [facility] #IG 0.05 10^3/uL 0.00 - 0.10 [facility]spital #NRBC 0.00 10^3/uL 0.00 - 0.00 [facility] ospital MANUAL DIFF NOT INDICATED [facility] RBC MORPH NOT INDICATED [facility] spital ID Date Data Source [id number] 06/11/2020 08:00:00 AM EDT [facility] Name Value Range Interpretation Code Description Data Ro rce(s) Supporting Document(s) COMPREHENSIVE METABOLIC PANEL [facility] COMPREHENSIVE METABOLIC PANEL Sodium [Moles/volume] in Serum or Plasma 143 mEq/L 134 - 153 [facility] [facility] Potassium [Moles/volume] in Serum or Plasma 5.6 mEq/L 3.6 - 5.0 [facility] Chloride [Moles/volume] in Serum or Plasma 104 mEq/L 98 - 107 [facility] Carbon dioxide, total [Moles/volume] in Serum or Plasma 34 MEQ/L 22 - 30 [facility] Glucose [Mass/volume] in Serum or Plasma 90 MG/DL 65 - 110 [facility] BUN 34 MG/DL 7 - 21 H [facility] Creatinine [Mass/volume] in Serum or Plasma 1.9 MG/DL 0.7 - 1.5 H [facility] BUN/CREAT 18 8 - 27 [facility] al Protein [Mass/volume] in Serum or Plasma 5.5 G/DL 6.3 - 8.2 L [facility] Albumin [Mass/volume] in Serum or Plasma 3.4 G/DL 3.9 - 5.0 L [facility] Globulin [Mass/volume] in Serum by calculation 2.1 GM/DL 2.4 - 3.2 L [facility] A/G RATIO 1.6 0.8 - 2.0 [facility] Calcium [Mass/volume] in Serum or Plasma 8.1 MG/DL 8.4 - 10.2 L [facility] Bilirubin.total [Mass/volume] in Serum or Plasma <0.7 MG/DL 0.2 - 1.3 [facility] Alkaline phosphatase [Enzymatic activity/volume] in Serum or Plasma 76 U/L 38 - 126 [facility] Aspartate aminotransferase [Enzymatic activity/volume] in Serum or Plasma 12 U/L 5 - 40 [facility] Alanine aminotransferase [Enzymatic activity/volume] in Seru m or Plasma 11 U/L 7 - 56 [facility] Anion gap 3 in Serum or Plasma 5.0 mmol/L 8.0 - 16.0 L [facility] AGE 75 yrs [facility] NON-AA GFR 28 mL/min [facility] booker AFR AMER GFR >60 [facility] Male GFR In terprentation [...] >32 mL/min Normal ID Date Data Source [id number] 06/11/2020 07:52:00 AM EDT [facility] Name Value Range Interpretation Code Description Data Ro rce(s) Supporting Document(s) Cobalamin (Vitamin B12) [Mass/volume] in Serum or Plasma 759 PG/ML 470 - 4048 [facility] ID Date Data Source [id number] 06/11/2020 07:40:00 AM EDT [facility] Name Value Range Interpretation Code Description Data Ro rce(s) Supporting Document(s) Magnesium [Mass/volume] in Serum or Plasma 1.9 MG/DL 1.7 - 2.2 [facility] Procedure Social History Code Duration Value Status Description Data Source(s ) Smoking 08/09/2021 12:00:00 AM EST Patient is a former smoker completed Patient is a former smoker [facility] ([facility]) Vital Signs ID Date Data Source UNK Name Value Range Interpretation Code Description Data Source(s) Systolic blood pressure 112 mm[Hg] 112 mm[Hg] M [facility] ([facility]) Diastolic blood pressure 60 mm[Hg] 60 mm[Hg] [facility] ([facility]) Heart rate 93 /min 93 /min [facility] ([facility]) Body height 63 [in_i] 63 [in_i] [facility] ([facility]) 5'3" Body weight 189.00 [lb_av] 189.00 [lb_av] [facility] ([facility]) Body mass index (BMI) [Ratio] 33.5 kg/m2 33.5 k g/m2 [facility] ([facility]) [place] body weight 115 [lb_av] 115 [lb_av] [facility] Body weight 85.730 kg 85.730 kg [facility] ([facility]) Body surface area Derived from formula 1.89 m2 1.89 m2 [facility] ([facility]) Body temperature 97.4 [degF] 97.4 [degF] [facility] ([facility]) Body height 63 [in_i] 63 [in_i] [facility] ([facility]) 5'3" Body weight 190.00 [lb_av] 190.00 [lb_av] [facility] ([facility]) pt in w/c Body mass index (BMI) [Ratio] 33.7 kg/m2 33.7 k g/m2 [facility] ([facility] Systolic blood pressure 122 mm[Hg] 122 mm[Hg] M [facility] ([facility]) Diastolic blood pressure 70 mm[Hg] 70 mm[Hg] [facility] ([facility]) Heart rate 97 /min 97 /min [facility] ([facility]) Oxygen saturation in Arterial blood by Pulse oximetry 933 % 933 % [facility] ([facility]) Body height 63 [in_i] 63 [in_i] [facility] ([facility]) 5'3" Body weight 186.00 [lb_av] 186.00 [lb_av] [facility] ([facility]) Body mass index (BMI) [Ratio] 32.9 kg/m2 32.9 k g/m2 [facility] ([facility]) [place] body weight 115 [lb_av] 115 [lb_av] [facility] ([facility]) Body weight 84.370 kg 84.370 kg [facility] ([facility]) Body surface area Derived from formula 1.87 m2 1.87 m2 [facility] ([facility]) Heart rate 100 /min 100 /min [facility] ([facility] Systolic blood pressure 180 mm[Hg] 180 mm[Hg] [facility] ([facility]) Body temperature 90.0 [degF] 90.0 [degF] [facility] ([facility]) Body height 63 [in_i] 63 [in_i] [facility] 5'3" Body weight 169.00 [lb_av] 169.00 [lb_av] [facility] ([facility] Body weight 76.658 kg 76.658 kg [facility] ([facility] Body mass index (BMI) [Ratio] 29.9 kg/m2 29.9 k g/m2 [facility] ([facility]) Diastolic blood pressure 80 mm[Hg] 80 mm[Hg] [facility] ([facility] Body mass index (BMI) [Ratio] 29.0 kg/m2 29.0 k g/m2 [facility] ([facility], ) Systolic blood pressure 100 mm[Hg] 100 mm[Hg] M [facility] ([facility], ) Heart rate 60 /min 60 /min [facility] ([facility], ) Respiratory rate 14 /min 14 /min [facility] ( [facility], ) Body height 63 [in_i] 63 [in_i] [facility] ([facility], ) 5'3" Body weight 164.00 [lb_av] 164.00 [lb_av] [facility] ([facility], ) [place] body weight 115 [lb_av] 115 [lb_av] [facility] ([facility], ) Diastolic blood pressure 60 mm[Hg] 60 mm[Hg] [facility] ([facility], ) Body temperature 97.4 [degF] 97.4 [degF] [facility] ([facility]) Heart rate 97 /min 97 /min [facility] ([facility]) Systolic blood pressure 134 mm[Hg] 134 mm[Hg] M [facility] ([facility]) Diastolic blood pressure 64 mm[Hg] 64 mm[Hg] [facility] ([facility]) Body height 63 [in_i] 63 [in_i] [facility] ([facility]) 5'3" Oxygen saturation in Arterial blood by Pulse [...] 154.00 [lb_av] [facility] ([facility]) Systolic blood pressure 100 [...] /min [facility] ( Silver Peterson [facility]) Body mass index (BMI) [Ratio] [...] Silver Peterson MD) ID Date Data Source [id number] 06/28/2020 09:35:48 AM EDT [facility] Name Value Range Interpretation Code Description Data Source(s) WEIGHT RECORDED 163.00 pounds 163.00 pounds [facility] Height 63 Inches 063 Inches [facility]
[2021-08-10] MEDS ORDERED: MORPHINE 4 MG/ML 1ML VIAL/SYRINGE (J2270) IV ONE ×2 (09:05→11:05)
[2021-08-10 10:04] LABS: HEMATOCRIT 30.4 % (36.0-47.0); HEMOGLOBIN 8.7 g/dl (12.0-15.5); MEAN CORPUSCULAR HEMOGLOBIN 31.9 pg (27.0-33.0); MEAN CORPUSCULAR HGB CONC 28.6 g/dl (32.0-36.5); MEAN CORPUSCULAR VOLUME 111.4 fl (80.0-96.0); PLATELET COUNT, AUTOMATED 214 10^3/uL (150-450); RED BLOOD COUNT 2.73 10^6/uL (4.00-5.40)
[2021-08-10 10:20] LABS: ALBUMIN 2.3 GM/DL (3.2-5.2); BILIRUBIN,TOTAL 0.3 MG/DL (0.2-1.0); CALCIUM LEVEL 8.5 MG/DL (8.8-10.2); CREATININE FOR GFR 3.44 MG/DL (0.55-1.30); GLOMERULAR FILTRATION RATE 13.9 (>39); TOTAL PROTEIN 6.5 GM/DL (6.4-8.2)
[2021-08-10 10:36] LABS: BASOPHILS 1 % (0-1); EOSINOPHILS 1 % (0-3); LYMPHOCYTES 11 % (16-44); METAMYELOCYTES 2 % (0-0); MONOCYTES 10 % (0-5); MYELOCYTES 6 % (0-0); NEUTROPHILS 66 % (28-66); PLATELET ESTIMATE NORMAL (NORMAL)
[2021-08-10 10:38] LABS: ANISOCYTOSIS 2+
--- NOTE | 2021-08-10 10:53 | REP ---
INDICATION: fx left hip, admission/surg. COMPARISON: 07/05/2021 TECHNIQUE: Portable FINDINGS: The technique utilized in obtaining the radiograph has magnified the cardiac silhouette and accentuated the interstitial markings. There is cardiomegaly accentuated by technique. The tip of the double-lumen central venous catheter is again seen in the superior vena cava. There is no change in the pacemaker device. The lung field opacities seen on the prior examination have improved. There is persistent chronic central pulmonary venous engorgement. No new patchy opacities or pleural effusions have developed. There is no significant change in appearance of the osseous structures. IMPRESSION: Chronic changes as described above. <Electronically signed by Francisco Sanders > 08/10/21 1452
--- NOTE | 2021-08-10 10:57 | REP ---
INDICATION: Fell from standing position, left hip tenderness. COMPARISON: 08/29/2015, 11/30/2020. TECHNIQUE: AP pelvis, AP and cross-table lateral left hip. FINDINGS: There is a comminuted fracture of the intertrochanteric region of the proximal left femur. There is a separate lesser trochanter fragment. There is medial displacement of the distal femoral shaft. There are moderate degenerative changes at both hip joints. There is an old fracture of the right pubic bones. Diffuse vascular calcifications are present. IMPRESSION: Comminuted fracture intertrochanteric region proximal left femur. <Electronically signed by Raymundo Baeza > 08/10/21 1051
[2021-08-10] MEDS ORDERED: ROSU10TA6 PO (11:41)
[2021-08-10] MEDS ORDERED: HOME MED LIST COMPLETE! XX SCH (11:45)
--- NOTE | 2021-08-10 12:16 | REP ---
INDICATION: pre-op. COMPARISON: None. TECHNIQUE: Two views of the distal femur FINDINGS: No acute fracture or destructive osseous lesion is identified on the images provided. IMPRESSION: As above. <Electronically signed by Francisco Sanders > 08/10/21 [id number]
--- NOTE | 2021-08-10 12:17 | REP ---
INDICATION: left hip and femur fx, needs for pre-op per Ortho TECHNIQUE: Four views excluding a sunrise view FINDINGS: There is no evidence of an acute fracture or destructive osseous lesion. Mild degenerative changes are identified. IMPRESSION: No acute osseous abnormality. <Electronically signed by Francisco Sanders > 08/10/21 [id number]
[2021-08-10 12:40] LABS: RSV AMPLIFICATION NEGATIVE (NEGATIVE)
[2021-08-10] MEDS ORDERED: SODIUM CHLORIDE 0.9% 1000ML IV PRN (12:40)
[2021-08-10] MEDS ORDERED: GLUCOSE 4GM CHEW TABLET PO PRN (13:15)
[2021-08-10] MEDS ORDERED: DEXTROSE 50% 50 ML SYRINGE IV PRN (13:15)
[2021-08-10] MEDS ORDERED: GLUCAGON INJ 1MG VIAL SC PRN (13:15)
[2021-08-10] MEDS ORDERED: PERCOCET 5MG/325MG TAB PO PRN ×2 (13:15)
--- OUTSIDE RECORDS SUMMARY | 2021-08-10 13:39 | CCD ---
Author Author [facility] Organization [facility] Address Unknown Phone Unavailable Care Team Providers Care Party Plan Sales Agent Name Role Phone Toney, L Priscilla OPERATIONAL TEST MECHANIC Unavailable Unavailable Toney, L Priscilla OPERATIONAL TEST MECHANIC Unavailable Unavailable Toney, L Priscilla OPERATIONAL TEST MECHANIC Unavailable Unavailable Toney, L Priscilla OPERATIONAL TEST MECHANIC Unavailable Unavailable Toney, L Priscilla OPERATIONAL TEST MECHANIC Unavailable Unavailable Toney, L Priscilla OPERATIONAL TEST MECHANIC Unavailable Unavailable Toney, L Priscilla OPERATIONAL TEST MECHANIC Unavailable Unavailable Toney, L Priscilla OPERATIONAL TEST MECHANIC Unavailable Unavailable Toney, L Priscilla OPERATIONAL TEST MECHANIC Unavailable Unavailable Toney, L Priscilla OPERATIONAL TEST MECHANIC Unavailable Unavailable Toney, L Priscilla OPERATIONAL TEST MECHANIC Unavailable Unavailable Toney, L Priscilla OPERATIONAL TEST MECHANIC Unavailable Unavailable Toney, L Priscilla OPERATIONAL TEST MECHANIC Unavailable Unavailable Toney, L Priscilla OPERATIONAL TEST MECHANIC Unavailable Unavailable Toney, L Priscilla OPERATIONAL TEST MECHANIC Unavailable Unavailable Toney, L Priscilla OPERATIONAL TEST MECHANIC Unavailable Unavailable Toney, L Priscilla OPERATIONAL TEST MECHANIC Unavailable Unavailable Toney, L Priscilla OPERATIONAL TEST MECHANIC Unavailable Unavailable Toney, L Priscilla OPERATIONAL TEST MECHANIC Unavailable Unavailable Toney, L Priscilla OPERATIONAL TEST MECHANIC Unavailable Unavailable Toney, L Priscilla OPERATIONAL TEST MECHANIC Unavailable Unavailable Toney, L Priscilla OPERATIONAL TEST MECHANIC Unavailable Unavailable Toney, L Priscilla OPERATIONAL TEST MECHANIC Unavailable Unavailable Toney, L Priscilla OPERATIONAL TEST MECHANIC Unavailable Unavailable Toney, L Priscilla OPERATIONAL TEST MECHANIC Unavailable Unavailable KIRSCHMAN, L DANYA OPERATIONAL TEST MECHANIC Unavailable Unavailable KIRSCHMAN, L DANYA OPERATIONAL TEST MECHANIC Unavailable Unavailable KIRSCHMAN, L DANYA OPERATIONAL TEST MECHANIC Unavailable Unavailable KIRSCHMAN, L DANYA OPERATIONAL TEST MECHANIC Unavailable Unavailable KIRSCHMAN, L DANYA OPERATIONAL TEST MECHANIC Unavailable Unavailable KIRSCHMAN, L DANYA OPERATIONAL TEST MECHANIC Unavailable Unavailable KIRSCHMAN, L DANYA OPERATIONAL TEST MECHANIC Unavailable Unavailable KIRSCHMAN, L DANYA OPERATIONAL TEST MECHANIC Unavailable Unavailable KIRSCHMAN, L DANYA OPERATIONAL TEST MECHANIC Unavailable Unavailable KIRSCHMAN, L DANYA OPERATIONAL TEST MECHANIC Unavailable Unavailable KIRSCHMAN, L DANYA OPERATIONAL TEST MECHANIC Unavailable Unavailable KIRSCHMAN, L DANYA OPERATIONAL TEST MECHANIC Unavailable Unavailable KIRSCHMAN, L DANYA OPERATIONAL TEST MECHANIC Unavailable Unavailable KIRSCHMAN, L DANYA OPERATIONAL TEST MECHANIC Unavailable Unavailable KIRSCHMAN, L DANYA OPERATIONAL TEST MECHANIC Unavailable Unavailable KIRSCHMAN, L DANYA OPERATIONAL TEST MECHANIC Unavailable Unavailable KIRSCHMAN, L DANYA OPERATIONAL TEST MECHANIC Unavailable Unavailable KIRSCHMAN, L DANYA OPERATIONAL TEST MECHANIC Unavailable Unavailable KIRSCHMAN, L DANYA OPERATIONAL TEST MECHANIC Unavailable Unavailable KIRSCHMAN, L DANYA OPERATIONAL TEST MECHANIC Unavailable Unavailable KIRSCHMAN, L DANYA OPERATIONAL TEST MECHANIC Unavailable Unavailable KIRSCHMAN, L DANYA OPERATIONAL TEST MECHANIC Unavailable Unavailable KIRSCHMAN, L DANYA OPERATIONAL TEST MECHANIC Unavailable Unavailable KIRSCHMAN, L DANYA OPERATIONAL TEST MECHANIC Unavailable Unavailable KIRSCHMAN, L DANYA OPERATIONAL TEST MECHANIC Unavailable Unavailable KIRSCHMAN, L DANYA OPERATIONAL TEST MECHANIC Unavailable Unavailable KIRSCHMAN, L DANYA OPERATIONAL TEST MECHANIC Unavailable Unavailable KIRSCHMAN, L DANYA OPERATIONAL TEST MECHANIC Unavailable Unavailable KIRSCHMAN, L DANYA OPERATIONAL TEST MECHANIC Unavailable Unavailable KIRSCHMAN, L DANYA OPERATIONAL TEST MECHANIC Unavailable Unavailable KIRSCHMAN, L DANYA OPERATIONAL TEST MECHANIC Unavailable Unavailable KIRSCHMAN, L DANYA OPERATIONAL TEST MECHANIC Unavailable Unavailable KIRSCHMAN, L DANYA OPERATIONAL TEST MECHANIC Unavailable Unavailable KIRSCHMAN, L DANYA OPERATIONAL TEST MECHANIC Unavailable Unavailable KIRSCHMAN, L DANYA OPERATIONAL TEST MECHANIC Unavailable Unavailable KIRSCHMAN, L DANYA OPERATIONAL TEST MECHANIC Unavailable Unavailable KIRSCHMAN, L DANYA OPERATIONAL TEST MECHANIC Unavailable Unavailable KIRSCHMAN, L DANYA OPERATIONAL TEST MECHANIC Unavailable Unavailable KIRSCHMAN, L DANYA OPERATIONAL TEST MECHANIC Unavailable Unavailable KIRSCHMAN, L DANYA OPERATIONAL TEST MECHANIC Unavailable Unavailable KIRSCHMAN, L DANYA OPERATIONAL TEST MECHANIC Unavailable Unavailable KIRSCHMAN, L DANYA OPERATIONAL TEST MECHANIC Unavailable Unavailable KIRSCHMAN, L DANYA OPERATIONAL TEST MECHANIC Unavailable Unavailable KIRSCHMAN, L DANYA OPERATIONAL TEST MECHANIC Unavailable Unavailable KIRSCHMAN, L DANYA OPERATIONAL TEST MECHANIC Unavailable Unavailable KIRSCHMAN, L DANYA OPERATIONAL TEST MECHANIC Unavailable Unavailable KIRSCHMAN, L DANYA OPERATIONAL TEST MECHANIC Unavailable Unavailable Vy, P Khalid MD Unavailable Unavailable Vy, P Khalid MD Unavailable Unavailable Vy, P Khalid MD Unavailable Unavailable Vy, P Khalid MD Unavailable Unavailable Yv, P Khalid MD Unavailable Unavailable Vy, P [...] Vy, Phong Mann MD Unavailable Unavailable Fish, [facility], PA-C Unavailable Unavailabl e Fish, [facility], PA-C Unavailable Unavailabl e Fish, [facility], PA-C Unavailable Unavailabl e Fish, [facility], PA-C Unavailable Unavailabl e Fish, [facility], PA-C Unavailable Unavailabl e Fish, [facility], PA-C Unavailable Unavailabl e Fish, [facility], PA-C Unavailable Unavailabl e Fish, [facility], PA-C Unavailable Unavailabl e Fish, [facility], PA-C Unavailable Unavailabl e Fish, [facility], PA-C Unavailable Unavailabl e Fish, [facility], PA-C Unavailable Unavailabl e Fish, [facility], PA-C Unavailable Unavailabl e Fish, [facility], PA-C Unavailable Unavailabl e Fish, [facility], PA-C Unavailable Unavailabl e Fish, [facility], PA-C Unavailable Unavailabl e Fish, [facility], PA-C Unavailable Unavailabl e Fish, [facility], PA-C Unavailable Unavailabl e Fish, [facility], PA-C Unavailable Unavailabl e Fish, [facility], PA-C Unavailable Unavailabl e Fish, [facility], PA-C Unavailable Unavailabl e Fish, Anitra Marly MPAS, PA-C Unavailable Unavailabl e Fish, [facility], PA-C Unavailable Unavailabl e Fish, [facility], PA-C Unavailable Unavailabl e Fish, [facility], PA-C Unavailable Unavailabl e Fish, [facility], PA-C Unavailable Unavailabl e Fish, [facility], PA-C Unavailable Unavailabl e Fish, [facility], PA-C Unavailable Unavailabl e Fish, [facility], PA-C Unavailable Unavailabl e Fish, [facility], PA-C Unavailable Unavailabl e Fish, [facility], PA-C Unavailable Unavailabl e Fish, [facility], PA-C Unavailable Unavailabl e Fish, [facility], PA-C Unavailable Unavailabl e Fish, [facility], PA-C Unavailable Unavailabl e Fish, [facility], PA-C Unavailable Unavailabl e Fish, [facility], PA-C Unavailable Unavailabl e Fish, [facility], PA-C Unavailable Unavailabl e KIRSCHMAN, L DANYA OPERATIONAL TEST MECHANIC Unavailable Unavailable KIRSCHMAN, L DANYA OPERATIONAL TEST MECHANIC Unavailable Unavailable KIRSCHMAN, L DANYA OPERATIONAL TEST MECHANIC Unavailable Unavailable KIRSCHMAN, L DANYA OPERATIONAL TEST MECHANIC Unavailable Unavailable KIRSCHMAN, L DANYA OPERATIONAL TEST MECHANIC Unavailable Unavailable KIRSCHMAN, L DANYA OPERATIONAL TEST MECHANIC Unavailable Unavailable KIRSCHMAN, L DANYA OPERATIONAL TEST MECHANIC Unavailable Unavailable KIRSCHMAN, L DANYA OPERATIONAL TEST MECHANIC Unavailable Unavailable KIRSCHMAN, L DANYA OPERATIONAL TEST MECHANIC Unavailable Unavailable KIRSCHMAN, L DANYA OPERATIONAL TEST MECHANIC Unavailable Unavailable KIRSCHMAN, L DANYA OPERATIONAL TEST MECHANIC Unavailable Unavailable KIRSCHMAN, L DANYA OPERATIONAL TEST MECHANIC Unavailable Unavailable KIRSCHMAN, L DANYA OPERATIONAL TEST MECHANIC Unavailable Unavailable KIRSCHMAN, L DANYA OPERATIONAL TEST MECHANIC Unavailable Unavailable KIRSCHMAN, L DANYA OPERATIONAL TEST MECHANIC Unavailable Unavailable KIRSCHMAN, L DANYA OPERATIONAL TEST MECHANIC Unavailable Unavailable KIRSCHMAN, L DANYA OPERATIONAL TEST MECHANIC Unavailable Unavailable KIRSCHMAN, L DANYA OPERATIONAL TEST MECHANIC Unavailable Unavailable KIRSCHMAN, L DANYA OPERATIONAL TEST MECHANIC Unavailable Unavailable KIRSCHMAN, L DANYA OPERATIONAL TEST MECHANIC Unavailable Unavailable KIRSCHMAN, L DANYA OPERATIONAL TEST MECHANIC Unavailable Unavailable KIRSCHMAN, L DANYA OPERATIONAL TEST MECHANIC Unavailable Unavailable KIRSCHMAN, L DANYA OPERATIONAL TEST MECHANIC Unavailable Unavailable KIRSCHMAN, L DANYA OPERATIONAL TEST MECHANIC Unavailable Unavailable KIRSCHMAN, L DANYA OPERATIONAL TEST MECHANIC Unavailable Unavailable KIRSCHMAN, L DANYA OPERATIONAL TEST MECHANIC Unavailable Unavailable KIRSCHMAN, L DANYA OPERATIONAL TEST MECHANIC Unavailable Unavailable KIRSCHMAN, L DANYA OPERATIONAL TEST MECHANIC Unavailable Unavailable KIRSCHMAN, L DANYA OPERATIONAL TEST MECHANIC Unavailable Unavailable KIRSCHMAN, L DANYA OPERATIONAL TEST MECHANIC Unavailable Unavailable KIRSCHMAN, L DANYA OPERATIONAL TEST MECHANIC Unavailable Unavailable KIRSCHMAN, L DANYA OPERATIONAL TEST MECHANIC Unavailable Unavailable KIRSCHMAN, L DANYA OPERATIONAL TEST MECHANIC Unavailable Unavailable KIRSCHMAN, L DANYA OPERATIONAL TEST MECHANIC Unavailable Unavailable KIRSCHMAN, L DANYA OPERATIONAL TEST MECHANIC Unavailable Unavailable KIRSCHMAN, L DANYA OPERATIONAL TEST MECHANIC Unavailable Unavailable KIRSCHMAN, L DANYA OPERATIONAL TEST MECHANIC Unavailable Unavailable KIRSCHMAN, L DANYA OPERATIONAL TEST MECHANIC Unavailable Unavailable KIRSCHMAN, L DANYA OPERATIONAL TEST MECHANIC Unavailable Unavailable KIRSCHMAN, L DANYA OPERATIONAL TEST MECHANIC Unavailable Unavailable KIRSCHMAN, L DANYA OPERATIONAL TEST MECHANIC Unavailable Unavailable KIRSCHMAN, L DANYA OPERATIONAL TEST MECHANIC Unavailable Unavailable KIRSCHMAN, L DANYA OPERATIONAL TEST MECHANIC Unavailable Unavailable KIRSCHMAN, L DANYA OPERATIONAL TEST MECHANIC Unavailable Unavailable KIRSCHMAN, L DANYA OPERATIONAL TEST MECHANIC Unavailable Unavailable KIRSCHMAN, L DANYA OPERATIONAL TEST MECHANIC Unavailable Unavailable KIRSCHMAN, L DANYA OPERATIONAL TEST MECHANIC Unavailable Unavailable Emelina CASH MD Unavailable Unavailable [...] MAQBOOL SILVER MD Unavailable Unavailable REY, MAQBOOL SILVRE MD Unavailable Unavailable REY, MAQBOOL SILVER MD [...] SEMEL, Marianela HELMS MD Unavailable Unavailable SEMEL, Mairanela HELMS MD Unavailable Unavailable SEMEL, Marianela HELMS [...] is protected by Article 27-F of the [facility] Public Health law. If you continue you may have access to information: Regarding HIV / AIDS; Provided by facilities licensed or operated by the [facility] Office of Mental Health; or Provided by the [facility] Office for People With Developmental Disabilities. If such information is present, then the following [facility] mandated warning applies: This information [...] law may result in a fine or care home sentence or both. A general authorization for the release of medical or other information is NOT sufficient authorization for further disc losure. Allergies and Adverse Reactions Type Description Substance Reaction Status Data Source(s ) Unknown phenytoin Phenytoin Reaction Unknown [facility] ([facility]) Unknown oxycodone Oxycodone Reaction Unknown [facility] ([facility]) Unknown gabapentin gabapentin Reaction Unknown [facility] ([facility]) Unknown codeine Codeine Reaction Unknown [facility] ([facility]) Drug allergy DILANTIN DILANTIN STOMACH PAIN [facility] Drug allergy CODEINE CODEINE STOMACH PAIN [facility] Family History Family Member Name Family Member Gender Family Member Status Date o f Status Description Data Source(s) Unknown Male Problem MEDENT ([facility]) () - in neck Unknown Female Problem [facility] ([facility]) Unknown Female Problem MEDENT ([facility]) Unknown Female Problem MEDENT ([facility]) Unknown Female Problem MED[facility] ([facility]) Unknown Female Problem MEDENT ([facility]) Encounters Encounter Providers Location Date Indications Data Source(s ) O Attender: SILVER PETERSON MDConsultant: Mackenzie johnson MD 06/21/2021 12:00:00 AM EDT NDOC ([facility]) Patient admitted. Outpatient Attender: SAM Neff/Patricia/Damon/Sharona indl 06/12/2021 09:00:00 AM EDT MEDENT ([facility]) Office Visit Attender: Marly MIKE PA-C Physical Therapy 06/01/2021 05:15:00 PM EDT MED[facility] ([facility]) Office Visit Attender: Marly MIKE PA-C Physical Therapy 05/25/2021 09:45:00 AM EDT MEDENT ([facility]) OFFICE OUTPATIENT VISIT 15 MINUTES Attender: Marly MIKE PA-C Physical Therapy 05/09/2021 10:15:00 AM EDT MEDENT ([facility]) Outpatient Attender: Priscilla Neff/Patricia/Damon/Reindaly 04/17/2021 10:00:00 AM EDT MEDENT ([facility]) Emergency Attender: FARRUKH CASH MDConsultant: DANYA STONE OPERATIONAL TEST MECHANIC 04/12/2021 11:40:00 AM EDT - 04/12/2021 03:47:00 PM EDT [facility] Patient discharged. Outpatient Attender: SCOOTER QUINONES MD Main Office 03/23/2021 02:45:0 0 PM EDT MEDENT ([facility]) Outpatient Referrer: SCOOTER QUINONES MD 2021 11:21:22 AM EDT [facility] Office Visit Attender: Haider Sommer MD Main office - [place] 01/03/2021 02:15:00 PM EDT MEDENT ([facility]) Outpatient Attender: Haider Sommer MDConsultant: DANYA WATERMAN OPERATIONAL TEST MECHANIC 12/18/2020 10:38:00 AM EDT - 12/18/2020 11:38:00 AM EDT [facility] Patient discharged. Emergency Attender: CHIOMA BLACKBURNConsultant: DANYA STONE NP 11/27/2020 03:26:00 PM EDT - 11/27/2020 05:44:00 PM EDT [facility] Patient discharged. Outpatient Attender: Marly MIKE PA-C Physical Therapy 11/16/2020 10:15:00 AM EST MEDENT ([facility]) Outpatient Attender: Haider Sommer MD Main office - [place] 11/16/2020 08:30:00 AM EST MEDENT ([facility]) Outpatient Attender: DANYA JETT NP [facility] 09:30:00 AM EST MED[facility] ([facility]) Outpatient Attender: SILVER PETERSON MDConsultant: DANYA STONE OPERATIONAL TEST MECHANIC 09/12/2020 01:20:00 PM EST - 09/12/2020 02:20:00 PM [facility] Outpatient Attender: SILVER PETERSON MDConsultant: DANYA STONE OPERATIONAL TEST MECHANIC 08/09/2020 02:27:00 PM EST - 08/09/2020 03:27:00 PM [facility] Outpatient Attender: SILVER PETERSON MD Medical [facility] 08/09 12:30:00 PM EST MED[facility] ([facility]) Outpatient Attender: DANYA JETT NP Medical Building 09:15:00 AM EST [facility] ([facility]) Outpatient Attender: SILVER PETERSON MD Medical [facility] 06/28 02:00:00 PM EDT [facility] ([facility]) Inpatient Attender: SILVER PETERSON MDConsultant: DANYA STONE OPERATIONAL TEST MECHANIC 05/28/2020 12:30:00 PM EDT - 06/13/2020 11:02:00 AM EDT [facility] Patient discharged. Immunizations Vaccine Date Status Description Data Source(s) COVID-19 VACCINE [facility] 11/22/2020 12:00:00 AM EDT completed [facility] Vaccine Series Complete: YESThis Data wa s Submitted to [facility] [employer]. Medications Medication Brand Name Start Date Product Form Dose Route Admi nistrative Instructions Pharmacy Instructions Status Indications Reaction Description Data Source(s) 2 ML Sodium Hyaluronate 10 MG/ML Prefilled Syringe [Euflexxa ] Euflexxa 05/25/2021 12:00:00 AM EDT active MEDENT ([facility]) 30 ACTUAT fluticasone furoate 0.2 [...] active M EDENT ([facility]) Calcitriol 0.53254 MG Oral Capsule Calcitriol 09/12/2020 12:00:00 AM [...] Ghi FHP-(DO Not Use) Medigap Part B [id number] Self 0 [id number] Ghi FHP-(DO Not Use) Medigap Part B [id number] Self 0 [id number] Ghi FHP-(DO Not Use) Medigap Part B [id number] Self 0 [id number] Ghi FHP-(DO Not Use) Medigap Part B [id number] Self 0 [id number] Ghi FHP-(DO Not Use) Medigap Part B [id number] Self 0 [id number] Ghi FHP-(DO Not Use) Medigap Part B [id number] Self Ghi FHP-(DO Not Use) Medigap Part B [id number] Self 0 [id number] UHC UNITED MEDICARE COMPLETE G [id number] Self [id number] MEDICARE [id number] [facility] [id number] [id number] Medicare [place] Med[place]ap Part B [id number] Self 0 [id number] [place] Med[place] B [id number] 63474.0 Self [id number] [place] B [id number] Self [place] Medigap Part B [id number] Self Medicare [place] Medigap Part B [id number] Self 0 [id number] Medicare [place] Med[place]ap Part B [id number] Self 0 [id number] Medicare [place] Medigap Part B [id number] Self 0 [id number] Medicare [place] Medigap Part B [id number] Self [id number] Medicare [place] Medigap Part B [id number] Self [id number] Medicare Advantage Medigap Part B [id number] Self [id number] Medicare Advantage Medigap Part B [id number] Self UHC UNITED MEDICARE COMPLETE G [id number] Self [id number] [facility] Part B [id number] Self [id number] [facility] ([facility] [employer] Part B [id number] Self [id number] [facility] ([facility]) Commercial [id number] Self [id number] [facility] ([facility]) [facility] [employer] Part B [id number] Self [id number] [facility] ([facility]) Commercial [id number] Self [id number] [facility] ([facility]) Commercial [id number] Self [id number] TODAYS OPTIONS [id number] SP [id number] AMER PROG TODAYS OPTIONS G [id number] Self [id number] WELLCARE [id number] SP [id number] WELLCARE [id number] SP [id number] WELLCARE [id number] SP [id number] WELLCARE MEDICARE [id number] Mahsa 09 [id number] WELLCARE MEDICARE [id number] Mahsa 09 [id number] WELLCARE MEDICARE [id number] xxxxxxxxx [phone] [id number] INSURANCE COVID-19 COVID Mahsa C OVID [employer] Commercial [id number] 8601.0 Self [id number] [facility] [id number] SP [id number] [place] [place] [id number] 18 [id number] [employer] Commercial [id number] [id number] Self [id number] TODAYS OPTION -O/P [id number] 18 [id number] [employer] Commercial [id number] 8601.0 Self [id number] MEDICARE COMPLETE [id number] SP [id number] TOD[employer] OPTIONS [id number] SP [id number] WELLCARE [id number] SP [id number] WELLCARE O [id number] S [id number] MEDICARE COMPLETE [id number] SP [id number] MEDICARE COMPLETE-UHC O [id number] S [id number] INSURANCE COVID-19 [id number] [id number] INSURANCE COVID-19 COVID Mahsa C OVID MEDICARE [id number] SP [id number] A INSURANCE COVID-19 COVID Mahsa C OVID SECURE [employer]/UNHC MEDICARE -CLINIC [id number] 18 [id number] [employer]/UNHC MEDICARE-O/P [id number] 18 [id number] MEDICARE [id number] SP [id number] [employer] OPTIONS [id number] SP [id number] MEDICARE COMPLETE-UHC O [id number] S [id number] MEDICARE COMPLETE-UHC O [id number] S [id number] WELLCARE -I/P [id number] 18 [id number] WELLCARE - SWING [id number] 18 [id number] WELLCARE -O/P [id number] 18 [id number] MEDICARE [id number] SP [id number] [id number] [facility]) Commercial [id number] Self MEDICARE UNAVAILABLE SP UNAVAILA BLE OTHER LIABILITY O [id number] O [id number] OTHER LIABILITY [id number] SP [id number] SECURE [employer]IZ[employer] O [id number] S [id number] MEDICARE COMPLETE [id number] SP [id number] EVERCARE [id number] SP [id number] SECURE [employer] [id number] SP [id number] SECURE HORIZONS [id number] SP [id number] MEDICARE [id number] SP [id number] A [employer] PLUS [id number] SP [id number] [employer] PL[employer] [id number] SP [id number] TOD[employer]YS OPTIONS [id number] SP [id number] MEDICARE PART A SHADOW BILLING [id number] 18 [id number] [employer] UNHC MEDICARE -PHYSICIAN [id number] 18 [id number] SECURE [employer]/UNHC MEDICARE- [id number] 18 [id number] [facility] P [id number] S [id number] UNHC AMERICHOICE XIX -HMO [id number] 18 [id number] MEDICARE COMPLETE-[facility] P [id number] S [id number] [employer] Commercial [id number] [id number] Self [id number] A TODAYS OPTIONS/NEPALESE O [id number] S [id number] [employer] MCR -I/P [id number] 18 [id number] MEDICARE PART A SHADOW BILLING [id number] 18 [id number] TOD[employer] OPTION MCR [id number] 18 [id number] Problems, Conditions, and Diagnoses Code Display Name Description Problem Type Effective Dates Data Source(s) Z95.0 Presence of cardiac pacemaker Presence of cardiac pace maker Diagnosis 06/21/2021 12:00:00 AM EDT NDOC ([facility]) Z66 Do not resuscitate Do not resuscitate Diagnosis 12:00:00 AM EDT NDOC ([facility]) M10.9 Gout, unspecified Gout, unspecified Diagnosis 06/21/2021 12:00:00 AM EDT NDOC ([facility]) E78.5 Hyperlipidemia, unspecified Hyperlipidemia, unspecifie d Diagnosis 06/21/2021 12:00:00 AM EDT NDOC ([facility]) K21.9 Gastro-esophageal reflux disease without esophagitis Gastro-esophageal reflux disease without esophagitis Diagnosis 06/21/2021 12:00:00 AM ED T NDOC ([facility]) F17.200 Nicotine dependence, unspecified, uncomp licated Nicotine dependence, unspecified, uncomplicated Diagnosis 06/21/2021 12:00:00 AM EDT NDOC ( [facility]) G47.33 Obstructive sleep apnea (adult) (pediatr ic) Obstructive sleep apnea (adult) (pediatric) Diagnosis 06/21/2021 12:00:00 AM EDT NDOC ([facility]) Z68.31 Body mass index (BMI) 31.0-31.9, adult B ashley mass index [BMI] 31.0-31.9, adult Diagnosis 06/21/2021 12:00:00 AM EDT [facility] [facility]) E66.9 Obesity, unspecified Obesity, unspecified Diagnosis 06/21/2021 12:00:00 AM EDT [facility] ([facility]) D63.1 Anemia in chronic kidney disease Anemia in chron ic kidney disease Diagnosis 06/21/2021 12:00:00 AM EDT [facility] ([facility] ) N25.81 Secondary hyperparathyroidism of renal o rigin Secondary hyperparathyroidism of renal origin Diagnosis 06/21/2021 12:00:00 AM E DT [facility] ([facility]) I25.10 Atherosclerotic heart diseas e of [place] coronary artery without angina pectoris Atherosclerotic heart disease of [place] coronary artery without angina pectoris Diagnosis 06/21/2021 12:00:00 AM EDT [facility] ([facility]) J96.21 Acute and chronic respiratory failure wi th hypoxia Acute and chronic respiratory failure with hypoxia Diagnosis 06/21/2021 12:00:00 AM EDT [facility] ([facility]) B97.4 Respiratory syncytial virus as the cause of diseases classified elsewhere Respiratory syncytial virus as the cause of diseases classified elsewhere Diagnosis 06/21/2021 12:00:00 AM EDT [facility] ([facility] ) J06.9 Acute upper respiratory infection, unspe cified Acute upper respiratory infection, unspecified Diagnosis 06/21/2021 12:00:00 AM EDT [facility] ([facility]) J15.4 Pneumonia due to other streptococci Pneumonia du e to other streptococci Diagnosis 06/21/2021 12:00:00 AM EDT [facility] ([facility] ) J44.0 Chronic obstructive pulmonar y disease with acute lower respiratory infection Chronic obstructive pulmonary disease wi th (acute) lower respiratory infection Diagnosis 06/21/2021 12:00:00 AM EDT [facility] ([facility]) J12.82 J12.82 Pneumonia due to coronavirus disease 2019 Diagnosis 06/21/2021 12:00:00 AM EDT [facility] ([facility]) U07.1 U07.1 COVID-19 Diagnosis 06/21/2021 12:00:00 AM ED T [facility] ([facility]) N17.9 Acute kidney failure, unspecified Acute kidney f ailure, unspecified Diagnosis 06/21/2021 12:00:00 AM EDT [facility] ([facility] ) N18.6 End stage renal disease End stage renal disease Diagno sis 06/21/2021 12:00:00 AM EDT [facility] ([facility]) 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 Diagnosis 06/21/2021 12:00:00 AM EDT [facility] ([facility]) I50.33 Acute on chronic diastolic (congestive) heart failure Acute on chronic diastolic (congestive) heart failure Diagnosis 06/21/2021 12:00:00 AM EDT [facility] ([facility]) 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, or end stage renal disease Hypertensive heart and chronic kidney disease with heart failure and with stage 5 chronic kidney disease, or end stage renal disease Diagnosis 06/21/2021 12:00:00 AM E DT [facility] ([facility]) 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 Di agnosis 06/21/2021 12:00:00 AM EDT [facility] ([facility]) W25777 Personal history of nicotine dependence Personal history of nicotine dependence Diagnosis 04/12/2021 11:40:00 AM [facility] Z8701 Personal history of pneumonia (recurrent ) Personal history of pneumonia (recurrent) Diagnosis 04/12/2021 11:40:00 AM [facility] Z950 Presence of cardiac pacemaker Presence of cardiac pace maker Diagnosis 04/12/2021 11:40:00 AM EDT [facility] Z7984 [facility] (current) use of oral hypoglyc emic drugs 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 (current) use of oral hypoglycemic drugs Diagnosis 04/12/2021 11:40:00 AM EDT [facility] Z7982 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 Other cervical disc displacement at C6-C7 level Diagnosis 12/18/2020 10:38:00 AM EDT [facility] 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, 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, cervical region Diagnosis 12/18/2020 10:38:00 AM EDT [facility] R2681 Unsteadiness on feet Unsteadiness on feet Diagnosis 12/18/2020 10:38:00 AM EDT [facility] G4089 Other seizures Other seizures Diagnosis 12/18/2020 10:38: 00 AM EDT [facility] G250 Essential tremor Essential tremor Diagnosis 12/18/2020 10 :38:00 AM EDT [facility] R65171 Unspecified place in unspeci fied non-institutional (private) residence as the place of occurrence of the external cause Unspecified place in unspecified non-institutional (private) residence as the place of occurrence of the external cause Diagnosis 11/27/2020 03:26:00 PM EDT [facility] [id number] Fall on same level from slip ping, tripping and stumbling without subsequent striking against object, initial encounter Fall on same level from slipping, tripping and stumbling without subsequent striking against object, initial encounter Diagnosis 11/27/2020 03:26:00 PM EDT [facility] [id number] Contusion of left hip, initial encounter Contusion of left hip, initial encounter Diagnosis 11/27/2020 03:26:00 PM EDT [facility] [id number] Contusion of right knee, initial encount er Contusion of right knee, initial encounter Diagnosis 11/27/2020 03:26:00 PM EDT [facility] J181 Lobar pneumonia, unspecified organism Lo bar pneumonia, unspecified organism Diagnosis 11/27/2020 03:26:00 PM EDT [facility] [id number] Contusion of left front wall of thorax, initial encounter Contusion of left front wall of thorax, initial encounter Diagnosis 03:26:00 PM EDT [facility] [id number] Unspecified injury of thorax, initial en counter Unspecified injury of thorax, initial encounter Diagnosis 11/27/2020 03:26:00 PM EDT [facility] 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, lumbar region Unspecified inflammatory spondylopathy, lumbar region Diagnosis 09/12/2020 01:20:0 0 PM [facility] [id number] Unspecified injury of left elbow, initia l encounter Unspecified injury of left elbow, initial encounter Diagnosis 09/12/2020 01:20:00 PM [facility] [id number] Unspecified injury of lower back, initia l encounter Unspecified injury of lower back, initial encounter Diagnosis 09/12/2020 01:20:00 PM [facility] D649 Anemia, unspecified Anemia, unspecified Diagnosis 0 09/12/2020 01:20:00 PM [facility] E8342 Hypomagnesemia Hypomagnesemia Diagnosis 08/09/2020 02:27: 00 PM [facility] I509 Heart failure, unspecified Heart failure, unspecified Diagnosis 08/09/2020 02:27:00 PM [facility] Z87.891 Ex-smoker Ex-smoker Problem 04/17/2021 12:00:00 AM ED T [facility] ([facility], ) J96.12 Chronic hypercapnic respiratory failure Chronic hypercapnic respiratory failure Problem 04/17/2021 12:00:00 AM EDT [facility] (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 Problem 11/16/2020 12:00:00 AM EST [facility] ([facility], ) R26.81 Abnormal gait Abnormal gait Problem 11/16/2020 12:00:00 AM EST [facility] ([facility], ) G25.0 Essential tremor Essential tremor Problem 11/16/2020 12 :00:00 AM EST [facility] ([facility] ) Surgeries/Procedures Procedure Description Date Indications Data Source(s) Insertion Of Tunneled Centrally Inserted Central Venous Cath eter 06/12/2021 12:00:00 AM EDT [facility] ([facility]) Ultrasound Guidance For Vascular Access Requiring Ultrasound Eval 06/12/2021 12:00:00 AM [facility]T [facility] Fluoroscopic Guidance For Central Venous Access Device Place ment 06/12/2021 12:00:00 AM EDT [facility] ([facility]) [facility]/DAY 25 MINUTES 06/12/2021 12:00:00 AM EDT [facility] ([facility], ) ARTHROCENTESIS ASPIR&/INJECTION MAJOR JT/BURSA 021 12:00:00 AM EDT [facility] ([facility] ) ARTHROCENTESIS ASPIR&/INJECTION MAJOR JT/BURSA 021 12:00:00 AM EDT [facility] ([facility]) ARTHROCENTESIS ASPIR&/INJECTION MAJOR JT/BURSA 021 12:00:00 AM EDT [facility] ([facility] ) OFFICE OUTPATIENT VISIT 15 MINUTES 05/09/2021 12:00:00 AM EDT [facility] ([facility]) DEMO&/EVAL OF PT UTILIZ AERSL GEN/NEB/INHLR/IPPB 04/17 12:00:00 AM EDT [facility] ([facility]) OFFICE OUTPATIENT NEW 45 MINUTES 04/17/2021 12:00:00 A M EDT [facility] ([facility]) ELECTROENCEPHALOGRAM W/REC AWAKE&ASLEEP 01/08/2021 12: 00:00 AM EDT [facility] ([facility], ) ELECTROENCEPHALOGRAM W/REC AWAKE&ASLEEP 01/08/2021 12: 00:00 AM EDT [facility] 2020 12:00:00 AM EDT [facility] (Silver Peterson MD) ARTHROCENTESIS ASPIR&/INJECTION MAJOR JT/BURSA 021 12:00:00 AM EST [facility] ([facility]) RADIOLOGIC EXAM KNEE COMPLETE 4/MORE VIEWS 11/16/2020 12:00:00 AM EST [facility] ([facility]) OFFICE OUTPATIENT VISIT 25 MINUTES 11/16/2020 12:00:00 AM EST [facility] ([facility]) ECG ROUTINE ECG W/LEAST 12 LDS W/I&R [...] Peterson MD) Results ID Date Data Source [id number] 07/05/2021 02:07:00 AM EDT [facility] Name Value Range Interpretation Code Description Data Ro rce(s) Supporting Document(s) SARS-CoV-2 (COVID 19) NEGATIVE - SARS-CoV-2 (COVID19) [facility] This lab was ordered by [facility] a nd reported by [facility]. ID Date Data Source [id number] 06/13/2021 08:25:00 AM EDT [facility] Name Value Range Interpretation Code Description Data Ro rce(s) Supporting Document(s) SARS coronavirus 2 RNA [Presence] in Res piratory specimen by AMARA with probe detection POSITIVE [facility] This lab was ordered by [facility] a nd reported by [facility]. ID Date Data Source [id number] 06/09/2021 04:08:00 AM EDT [facility] Name Value Range Interpretation Code Description Data Ro rce(s) Supporting Document(s) SARS coronavirus 2 RNA [Presence] in Res piratory specimen by AMARA with probe detection NEGATIVE [facility] This lab was ordered by [facility] a nd reported by [facility]. ID Date Data Source [id number] 06/08/2021 11:44:00 PM EDT [facility] (Silver Peterson [...] (Silver Peterson MD) ID Date Data Source [id number] 06/08/2021 07:51:00 PM EDT [facility] Name Value Range Interpretation Code Description Data Ro rce(s) Supporting Document(s) SARS-CoV-2 (COVID 19) NEGATIVE - SARS-CoV-2 (COVID19) [facility] This [facility] was ordered by [facility] a nd reported by [facility]. ID Date Data Source [id number] 04/12/2021 11:40:00 AM EDT [facility] 1 OrderSheet [facility] Emergency Department [address] [place] [address] Phone #: ext- [phone] 04/12/2021 11:39 Patient: [...] Osmar(Symptomatic as Luis Whalen RNDefined by CDC) P.A.-C;([id number]) 2 OrderSheet [facility] Emergency Department [address] [place] [address] Phone #: ext- [phone] 04/12/2021 11:39 Patient: [...] Dose: 125 Luis Whalen RN 3 OrderSheet [facility] Emergency Department [address] [place] [address] Phone #: ext- [phone] 04/12/2021 11:39 Patient: DONALD ARMANDO Sex: F : 1945 Age: 76ymg (X1) P.A.-C;GENERAL ORDERSOrder Description Priority Entered Acknowledged InitialedBlood Pressure 12:17 04/12/2021 12:19 Marcellus Whalen RN P.A.-C;Teacher Drama 12:17 04/12/2021 12:19 Osmar(continuous) Luis Whalen RN P.A.-C;EKG 12:17 04/12/2021 12:27 Chari Wooten calibration engineerDamaso P.A.-C; [id number] 12:17 04/12/2021 12:19 Osmar Whalen RN P.A.-C;Obtain [...] Luis Wooten P.A.-C (23:23 04/12/2021)] 4 OrderSheet [facility] Emergency Department [address] [place] [address] Phone #: ext- [phone] 04/12/2021 11:39 Patient: DONALD ARMANDO Sex: F : 1945 Age: 76y[Electronically locked by Osmar Whalen RN (15:46 04/12/2021)] Name Value Range Interpretation Code Description Data Ro rce(s) Supporting Document(s) ID Date Data Source [id number] 04/12/2021 11:40:00 AM EDT [facility] 1 Medication Reconciliation Report [facility] Emergency Department [address] [place] [address] Phone #: ext- [phone] 04/12/2021 11:39 Patient: [...] Oral 50mcg, daily 2 Medication Reconciliation Report [facility] Emergency Department [address] [place] [address] Phone #: ext- [phone] 04/12/2021 11:39 Patient: DONALD ARMANDO Sex: F [...] Dispense 5 tablet. Refills: 0.Substitution permitted.Pharmacy - [facility] #[id number] - [address], [place] [id number]. .azithromycin 250 mg tablet Take 2 tablet single dose for 1 days -- Take 2 tabs by mouth and day 1`andthen 1 tab by mouth for days 2-5. Dispense 6 tablet. Refills: 0. Substitution permitted.Pharmacy - [facility] #[id number] - [address], [place] [id number]. . -- Luis Wooten P.A.-C Name Value Range Interpretation Code Description Data Ro rce(s) Supporting Document(s) ID Date Data Source [id number] 04/12/2021 11:40:00 AM EDT [place] [address] Medication Administration Record [facility] Emergency Department [address] [place] [address] Phone #: ext- [phone] 04/12/2021 11:39 Patient: DONALD ARMANDO Sex: F [...] rce(s) Supporting Document(s) ID Date Data Source [id number] 04/12/2021 11:40:00 AM EDT [facility] 1 General Instructions [facility] Emergency Department [address] [place] [address] Phone #: ext- [phone] 04/12/2021 11:39 [id number] Sex[facility] F : 1945 Age: 76yAcute exacerbation [...] days -- Dispense 5 tablet. Refills: 0.Substitution permitted.[facility] #[id number] - [address] [place] [id number]. .azithromycin 250 mg tablet Take 2 tablet single dose for 1 days -- Take 2 tabs by mouth and day 1`andthen 1 tab by mouth for days 2-5. Dispense 6 tablet. Refills: 0. Substitution permitted.[facility] #[id number] - [address], [place] [id number]. .Follow-up:Return to the emergency department as needed. Follow up with your healthcare provider in about twodays if not better. Call for an appointment. Follow up with a camera repair technician and coffee farmer as scheduled.Understanding of the discharge instructions verbalized by patient. ADDITIONAL INFORMATIONCOPD Flare 2 General Instructions [facility] Emergency Department [address] [place] [address] Phone #: ext- [phone] 04/12/2021 11:39 Patient: [...] of a different color 3 General Instructions [facility] Emergency Department [address] [place] [address] Phone #: ext- [phone] 04/12/2021 11:39 Patient: [...] the infection has cleared. 4 General Instructions [facility] Emergency Department [address] [place] [address] Phone #: ext- [phone] 04/12/2021 11:39 Patient: [...] and fish, and low-fat dairy products.Preventing a odvtf-klWxrmn-kxm happen. But the best way to treat [...] stay inside when possible. 5 General Instructions [facility] Emergency Department [address] [place] [address] Phone #: ext- [phone] 04/12/2021 11:39 [id number] Sex: F : 1945 Age: 76y Try [...] your healthcare provider about your ability to: Pelican in your normal environment Correctly use inhaler (or your medicine delivery systems) Pelican with other conditions you have and their [...] or bloody mucus (sputum) 6 General Instructions [facility] Emergency Department [address] [place] [address] Phone #: ext- [phone] 04/12/2021 11:39 Patient: DONALD ARMANDO Sex: F : 1945 Age: 76y You don't start to get better within 24 hours Swelling of your ankles gets worse Weakness [id number] [employer]. [address] [place] [address]. All rights reserved. This information is not [...] low-grade fever. Bronchitis usually 7 General Instructions [facility] Emergency Department [address] [place] [address] Phone #: ext- [phone] 04/12/2021 11:39 Patient: [...] away from secondhand smoke. You may use kngt-idk-bjptzvm medicines to control fever or pain, unless [...] loosen mucus in your nose and lungs. Pboe-qda-bpjktts cough, cold, and sore-throat medicines will not [...] Coughing up more sputum 8 General Instructions [facility] Emergency Department [address] [place] [address] Phone #: ext- [phone] 04/12/2021 11:39 Patient: DONALD ARMANDO Sex: F : 1945 Age: 76y Weakness, drowsiness, headache, facial pain, ear pain, or a stiff neckCall 911Call 911 if any of these occur. Coughing up blood Weakness, drowsiness, headache, or stiff neck that get worse Trouble breathing, wheezing, or pain with breathing [id number] [employer] [place] [address]. All rights reserved. This information is not intended as asubstitute for professional medical care. Always follow your healthcare professional's instructions. You have been given the following additional information: COPD Flare Bronchitis, Antibiotic Treatment (Adult)(Electronically signed by Luis Wooten P.A.-C 04/12/2021 23:23) Name Value Range Interpretation Code Description Data Ro rce(s) Supporting Document(s) ID Date Data Source [id number] 04/12/2021 11:40:00 AM EDT [facility] 1 Clinical Report - Nurses [facility] Emergency Department [address] [place] [address] Phone #: [phone]- [phone] 04/12/2021 11:39 Patient: DONALD ARMANDO Sex: F [...] and was sent here for possible CHF).Treatment CHILD CARE ASSISTANT:Recently seen in the office.SEPSIS SCREEN: SIRS SCREEN [...] Whalen RN. 2 Clinical Report - Nurses [facility] Emergency Department [address] [place] [address] Phone #: ext- [phone] 04/12/2021 11:39 Patient: [...] 2 seconds. 3 Clinical [place] [address] Phone #: ext- [phone] 04/12/2021 11:39 Patient: DONALD ARMANDO Sex: F : 1945 Age: 76y EXTREMITIES: Bilateral 1+ pitting edema of the lower extremities involving both lower legs. SKIN: Skin is warm and dry. Normal skin turgor. --11:55 04/12/21 Osmar Whalen RN.NURSING PROGRESS NOTESOxygen administered by nasal cannula at 3 liters. compliance monitor, NIBP monitor and pulse oximeterplaced on patient; rn cardiac rehab- Lead II; monitor alarms on. Patient gowned. [...] and shown to the PA. --12:51 04/12/21 [facility] Damaso Torres ER Tech1 13:48 [...] maintained @ 93% on 3L). --15:07 04/12/21 [facility] Damaso Torres ER Tech1 ( Patient was provided with a cup of coffee and a sandwich.). --15:08 04/12/21 [facility] Damaso Torres ER Tech1 15:28 04/12/2021 Si te #1 removed upon discharge. Catheter intact. Manual pressure and bandage applied. --15:28 04/12/21 Osmar Whalen RN.DISPOSITION / DISCHARGE 4 Clinical Report - Nurses [facility] Emergency Department [address] [place] [address] Phone #: ext- [phone] 04/12/2021 11:39 Patient: DONALD ARMANDO Sex: F : 1945 Age: 76y Condition at departure: improved and stable. Discharge instructions provided and reviewed with the patient. Reviewed medication(s) side effects, precautions, dosing and course information. Prescription(s) sent electronically to pharmacy. Patient verbalized understanding. Written instructions provided in Turkish. The patient was discharged by the physician city carrier assistant. She was discharged home and accompanied [...] rce(s) Supporting Document(s) ID Date Data Source [id number] 04/12/2021 11:40:00 AM EDT [facility] 1 Clinical Report - Physicians/Mid Levels [facility] Emergency Department [address] [place] [address] Phone #: ext- [phone] 04/12/2021 11:39 Patient: [...] Problems. 2 Clinical Report - Physicians/Mid Levels [facility] Emergency Department [address] [place] [address] Phone #: ext- [phone] 04/12/2021 11:39 Patient: DONALD ARMANDO [facility]#: [id number] Sex: F : 1945 Age: 76y Hypertension. [...] movement. 3 Clinical Report - Physicians/Mid Levels [facility] Emergency Department [address] [place] [address] Phone #: ext- [phone] 04/12/2021 11:39 Patient: DONALD ARMANDO Sex: F [...] In Progress Exam [place] THOR[place] W/[place] [address] PHONE: [phone] FAX: [phone] Name .................. : TR Whitley Acct Number.................. : [id number] ROOM. ................. : TR-05 Number ................... : [id number] Stay type ............. : E/R Discharge Date......... ... : Admit Date ......... : 04/12/21 Admit Phys .................... : MIRIAN Date of ....... : 1945 Family Phys ................... : CASPER Phone .................. : [phone] Age ................................ : 76 Film# .................. .:[id number] Sex ................................. : F Unsigned transcriptions are preliminary reports and do not represent a medical or legal document CT THORAX W/O CONTRAST [id number] COMPLETE:04/12/21 13:42 [id number] Reason(s): NO CONTRAST: ? Abnormal CXR portable CT CHEST WITHOUT IV CONTRAST INDICATION: Pleural-based opacities seen on the left side, uncertain etiology. CT recommended. COMPARISON: Chest x-ray 04/12/2021, CT10/28/19 CONTRAST: None One or more of the following dose reduction techniques were utilized in effectively 4 Clinical Report - Physicians/Mid Levels [facility] Emergency Department [address] [place] [address] Phone #: ext- [phone] 04/12/2021 11:39 Patient: DONALD ARMANDO Sex: F [...] ribs. These are new [address] [place], [place] [address]PHONE: [phone] FAX: [phone] .................. : TR Whitley Acct Number.................. : [id number]. ................. : TR-05 MR Number ................... : [id number] type ............. : E/R Discharge Date......... ... :Admit Date ......... : 04/12/21 Admit Phys .................... : COONEYNORMDate of ....... : 1945 Family Phys ................... : KIRSCHMANPhone .................. : [phone] Age ................................ : 76Film# .................. .:[id number] Sex ................................. : FUnsigned transcriptions are preliminary reports and do not represent a medical or legal document CT THORAX W/O CONTRAST [id number] COMPLETE:04/12/21 13:42 [id number] Reason(s): NO CONTRAST: ? Abnormal CXR portablecompared to the prior CT from 2019. Abundant sclerosis around the fracture sitesaccount for the rounded opacities projected over the left lung on x-ray. No pulmonarymasses are identified. Electronically Reviewed and Signed ByDCTNAME , SIGNDATE, REGINASTranscribe Initials: SSR, Transcribe Date: 04/12/21 14:50, Dictation Date:<<REPDIST>> Page 2 of 2 5 Clinical Report - Physicians/Mid Levels [facility] Emergency Department [address] [place] [address] Phone #: ext- [phone] 04/12/2021 11:39 Patient: [...] Male GFR Interprentation 20-49 yrs >60 mL/min Abrnei12-85 yrs >56 mL/min Normal 60-69 yrs >49 mL/min Normal 70-79yrs 6 Clinical Report - Physicians/Mid Levels [facility] Emergency Department [address] [place] [address] Phone #: ext- [phone] 04/12/2021 11:39 Patient: DONALD ARMANDO Sex: F : 1945 Age: 76y>42 mL/min Normal 80 and above >35 mL/min Normal Female GFRInterpretation 20-39 yrs >60 mL/min Normal 40-49 yrs >58 mL/minNormal 50-59 yrs >51 mL/min Normal 60-69 yrs >45 mL/min Mgrrtz88-03 yrs >39 mL/min Normal 80 and above [...] VenousThrombosis, Pulmonary Embolus, Tissue heart valves, Acute NH Atrial Fibrillation, Valvular heart diseaseand recurrent Systemic Embolism. - International Normalized Ratio (INR): 2.5 - 3.5 forMechanical Prosthetic valve.Troponin-T: (AURA: 04/12/2021 12:34) ( [facility] 04/12/2021 12:59) Final results Test Result Flag Units (Reference) TROPONIN T <0.01 NG/ML (0.00 - 0.10) TROPONIN T0.1 ng/ml Recommended as the clinical threshold value forTroponin T.Magnesium: (AURA: 04/12/2021 12:34) ( [facility] 04/12/2021 13:18) Final results Test Result Flag Units (Reference) MAGNESIUM 2.2 MG/DL (1.7 - 2.2)BNP: (AURA: 04/12/2021 12:34) ( [facility] 04/12/2021 13:22) Final results Test Result Flag Units (Reference) BNP 1469 H PG/ML (0 - 125)TSH: (AURA: 04/12/2021 12:34) ( [facility] 04/12/2021 13:22) Final results Test Result Flag Units (Reference) TSH 5.41 H uIU/mL (0.47 - 5.01)Urinalysis: (AURA: 04/12/2021 13:45) ( [facility] 04/12/2021 14:17) Final results Test Result Flag Units (Reference) URINALYSIS URINALYSIS SOURCE R COLOR yellow (NORMAL: Yello CLARITY clear (NORMAL: Clear SPEC GRAVITY 1.010 (1.001 - 1.030 pH 7 (5 - 9) GLUCOSE NORM (NORMAL: Negat BILIRUBIN NEG (NORMAL: Negat KETONE NEG (NORMAL: Negat PROTEIN 15 (NORMAL: Negat NITRITE NEG (NORMAL: Negat 7 Clinical Report - Physicians/Mid Levels [facility] Emergency Department [address] [place] [address] Phone #: ext- [phone] 04/12/2021 11:39 - Patient: DONALD ARMANDO Sex: [...] Nasal A B: (AURA: 04/12/2021 12:34) ( [facility] 04/12/2021 13:23) Final results Test Result Flag [...] Portable 1 View: (AURA: 04/12/2021 12:17) ( [facility] 04/12/2021 13:44) Final results [place] [address] PHONE: [phone] FAX: [phone] Name .................. : TR Whitley Acct Number.................. : [id number] ROOM. ................. : TR Number ................... : [id number] Stay type ............. : E/R Discharge Date......... ... : Admit Date ......... : 04/12/21 Admit Phys .................... : COAKINMARLEY Date of ....... : 1945 Family Phys ................... : CASPER Phone .................. : [phone] Age ................................ : 76 Film# .................. .:[id number] Sex ................................. : F Unsigned transcriptions are preliminary reports and do not represent a medical or legal document CHEST PORTABLE [id number] COMPLETE:04/12/21 12:17 63265 Reason(s): cough, congestion, hx of COPD. ? PNU vs COPD flare vs CHF flare 8 Clinical Report - Physicians/Mid Levels [facility] Emergency Department [address] [place] [address] Phone #: ext- [phone] 04/12/2021 11:39 Patient: DONALD ARMANDO Sex: F [...] 04/12/21 13:39, Dictation Date: Page 1 of2 [facility] [address] [place] [address] PHONE: [phone] FAX: [phone] Name .................. : TR Whitley Acct Number.................. : [id number] ROOM. ............... .. : TR05 Number ................... : [id number] Stay type ............. : E/R Discharge Date......... ... : Admit Date ......... : 04/12/21 [facility] Date of ....... : 1945 Family Phys ................... : [facility] Phone .................. : [phone] Age ................................ : 76 Film# .................. .:[id number] Sex ................................. : F Unsigned transcriptions are preliminary reports and do not represent a medical or legal document CHEST PORTABLE [id number] COMPLETE:04/12/21 12:17 54346 Reason(s): cough, congestion, hx of COPD. ? PNU vs COPD flare vs CHF flare Copy for: 010 EMERGENCY SRV Copy for: JE FREDERICK via fax Copy for: CASPER RACHEL via modem Copy for: EMERGENCY DEPT via modem 9 Clinical Report - Physicians/Mid Levels [facility] Emergency Department [address] [place] [address] Phone #: ext- [phone] 04/12/2021 11:39 Patient: DONALD ARMANDO Sex: F : 1945 Age: 76y Copy for: Double [employer] MED REC Page 2 of 2.PROGRESS AND [...] return to evaluate. [facility]. Appears stable [id number] BUN: 40; today 52, increased Cerat: 2.3; [...] stable. 10 Clinical Report - Physicians/Mid Levels [facility] Emergency Department [address] [place] [address] Phone #: ext- [phone] 04/12/2021 11:39 Patient: DONALD ARMANDO Sex: F [...] No dietary restrictions. 11 Clinical Report - Physicians/[facility] Emergency Department [address] [place] [address] Phone #: ext- [phone] 04/12/2021 11:39 Patient: [...] Dispense 5 tablet. Refills: 0. Substitution permitted. [facility] #[id number] [place] [address] [id number]. . azithromycin 250 mg tablet Take 2 tablet single dose for 1 days -- Take 2 tabs by mouth and day 1`and then 1 tab by mouth for days 2-5. Dispense 6 tablet. Refills: 0. Substitution permitted. [facility] #[id number] [place] [address] [phone] [id number]. . Follow-up: Return to the emergency department as needed. Follow up with your healthcare provider in about two days if not better. Call for an appointment. Follow up with a camera repair technician and coffee farmer as scheduled. Understanding of the discharge instructions verbalized by patient.(Electronically signed by Luis Wooten P.A.-C 04/12/2021 23:23) Name Value Range Interpretation Code Description Data Ro rce(s) Supporting Document(s) ID Date Data Source [id number] 04/12/2021 10:26:00 [place] [address] RESPIRATORY CARE REPORT ==== ---------NAME------- NUMBER SEX AGE ADMIT DISC. XRAY# F/C EDWIN Whitley [id number] F 76 04/12/21 04/12/21 [id number] E/R DATE OF : 1945 M/R# [id number] #: [id number] TR-05 LOCATION: EMERGENCY DEPT EKG 31057 COMP LETE:04/12/21 16:06 Marbin [id number] PHYSICIAN: MIRIAN WOOTEN CH Name Value Range Interpretation Code Description Data Ro rce(s) Supporting Document(s) ID Date Data Source [id number] 04/12/2021 03:09:00 [place] [address] PHONE: [phone] FAX: [phone] Name .................. : TR Whitley Acct Number.................. : [id number] ROOM. ................. : TR-05 MR Number ................... : [id number] Stay type ............. : E/R Discharge Date......... ... : Admit Date ......... : 04/12/21 [facility] .................... : [facility] Date of ....... : 1945 Family Phys ................... : [place] Phone .................. : [phone] Age ................................ : 76 Film# .................. .:[id number] Sex ................................. : F Unsigned transcriptions are preliminary reports and do not represent a medical or legal document CT THORAX W/O CONTRAST [id number] COMPLETE:04/12/21 13:42 62505 Reason(s): NO CONTRAST: ? Abnormal CXR portable [...] These are new Page 1 of [address] [place] [address] PHONE: [phone] FAX: [phone] Name .................. : PATRICIADEVI BENNETT Gutierrez Acct Number.................. : [id number] ROOM. ................. : TR-05 MR Number ................... : [id number] Stay type ............. : E/R Discharge Date......... ... : Admit Date ......... : 04/12/21 Ad[facility] Phys .................... : [facility] Date of ....... : 1945 Family Phys ................... : [place] Phone .................. : [phone] Age ................................ : 76 Film# .................. .:[id number] Sex ................................. : F Unsigned transcriptions are preliminary reports and do not represent a medical or legal document CT THORAX W/O CONTRAST [id number] COMPLETE:04/12/21 13:42 27318 Reason(s): NO CONTRAST: ? Abnormal CXR portable [...] rce(s) Supporting Document(s) ID Date Data Source [id number] 04/12/2021 01:44:00 [place] [address] PHONE: [phone] FAX: [phone] Name .................. : TR Whitley Acct Number.................. : [id number] ROOM. ................. : TR-05 Number ................... : [id number] Stay type ............. : E/R Discharge Date......... ... : Admit Date ......... : 04/12/21 Admit Phys .................... : [facility] Date of ....... : 1945 Family Phys ................... : CASPER Phone .................. : [phone] Age ................................ : 76 Film# .................. .:[id number] Sex ................................. : F Unsigned transcriptions are preliminary reports and do not represent a medical or legal document CHEST PORTABLE [id number] COMPLETE:04/12/21 12:17 81029 Reason(s): cough, congestion, hx of COPD. ? [...] 13:39, Dictation Date: Page 1 of 2 [place] [address] PHONE: [phone] FAX: [phone] Name .................. : TR Whitley Acct Number.................. : [id number] ROOM. ................. : TR05 Number ................... : [id number] Stay type ............. : E/R Discharge Date......... ... : Admit Date ......... : 04/12/21 Admit Phys .................... : [facility] Date of ....... : 1945 Family Phys ................... : CASPER Phone .................. : [phone] Age ................................ : 76 Film# .................. .:[id number] Sex ................................. : F Unsigned transcriptions are preliminary reports and do not represent a medical or legal document CHEST PORTABLE [id number] COMPLETE:04/12/21 12:17 49845 Reason(s): cough, congestion, hx of COPD. ? PNU vs COPD flare vs CHF flare Copy for: 010 EMERGENCY SRV Copy for: JE FREDERICK via fax Copy for: CASPER RACHEL via modem Copy for: EMERGENCY DEPT via modem Copy for: 710 MED REC Page 2 of 2 Name Value Range Interpretation Code Description Data Ro rce(s) Supporting Document(s) ID Date Data Source [id number] 04/12/2021 01:45:00 PM EDT [facility] (Silver Peterson [...] SOURCE: Clean Catch ID Date Data Source [id number] 04/12/2021 02:15:00 PM EDT [facility] Name Value Range Interpretation Code Description Data Ro rce(s) Supporting Document(s) [facility] R [facility] COLOR yellow NORMAL: Yellow [facility] CLARITY clear NORMAL: Clear [facility] Specific gravity of Urine by Test strip 1.010 1.001 - 1.030 [facility] pH 7 5 - 9 [facility] al Glucose [Mass/volume] in Urine by Test strip NORM NORMAL: Negat [facility] Bilirubin.total [Presence] in Urine by Test strip NEG NORMAL: Negative [facility] Ketones [Presence] in Urine by Test strip NEG NORMAL: Negative [facility] Protein [Mass/volume] in Urine by Test strip 15 NORMAL: Negat [facility] Nitrite [Presence] in Urine by Test strip NEG NORMAL: Negative [facility] BLOOD NEG NORMAL: Negative [facility] LEUK EST NEG NORMAL: Negative [facility] Urobilinogen [Mass/volume] in Urine by Test strip NOR less joyce n 1.0 mg/dL [facility] MICROSCOPIC See Below [facility] ital WBC 1 - 3 NORMAL: NONE SEEN Health system EPITHELIAL FEW NORMAL: NONE SEEN [facility] Bacteria [Presence] in Urine sediment by Light microscopy Tr sonali NORMAL: NONE SEEN [facility] Amorphous sediment [Presence] in Urine sediment by Light melody roscopy RARE NORMAL: NONE SEEN [facility] Casts [#/area] in Urine sediment by Microscopy low power field See Be low [facility] Hyaline casts [#/area] in Urine sediment by Microscopy low p ower field 0-1 NORMAL: None Seen [facility] Coarse Granular Casts [#/area] in Urine sediment by Mi croscopy low power field 0-1 NORMAL: None Seen A [facility] ID Date Data Source [id number] 04/12/2021 12:34:00 PM EDT [facility] (Silver Peterson [...] management</content>
<content>decisions.</content>
<content></content> ID Date Data Source [id number] 04/12/2021 12:34:00 PM EDT [facility] (Silver Peterson [...] (Silver Peterson MD) ID Date Data Source [id number] 04/12/2021 12:34:00 PM EDT [facility] (Silver Peterson [...] >32 mL/min Normal ID Date Data Source [id number] 04/12/2021 12:34:00 PM EDT [facility] (Silver Peterson [...] (Silver Peterson MD) ID Date Data Source [id number] 04/12/2021 12:34:00 PM EDT [facility] (Silver Peterson [...] Thrombosis, Pulmonary Embolus, Tissue heart valves, Acute NH Atrial Fibrillation, Valvular heart disease and recurrent Systemic Embolism. -International Normalized Ratio (INR): 2 .5 - 3.5 for Mechanical Prosthetic valve. Laboratory test finding (navigational concept) 1.03 0.93-1.23 [facility] (Silver Peterson MD) ID Date Data Source [id number] 04/12/2021 12:34:00 PM EDT [facility] (Silver Peterson [...] (Silver Peterson MD) ID Date Data Source [id number] 04/12/2021 12:34:00 PM EDT [facility] Name Value Range Interpretation Code Description Data Ro rce(s) Supporting Document(s) COVID19 Case rprt NOT DETECTED [facility] This lab was ordered by [facility] and reported by [facility]. ID Date Data Source [id number] 04/12/2021 01:23:00 PM EDT [facility] NOT DETECTEDNOT DETECTED{ PROC EDURAL CONTROL [...] rce(s) Supporting Document(s) ID Date Data Source [id number] 04/12/2021 01:22:00 PM EDT [facility] Name Value Range Interpretation Code Description Data Ro rce(s) Supporting Document(s) Influenza virus A Ag [Presence] in Nasopharynx by Immunoassa y NEGATIVE NORMAL: NEGATIVE [facility] Influenza virus B Ag [Presence] in Nasopharynx by Immunoassa y NEGATIVE NORMAL: NEGATIVE [facility] NEGATIVENEGATIVE PROCEDURAL CO NTROL VALID KIT [...] other patient managementdecisions. ID Date Data Source [id number] 04/12/2021 01:22:00 PM EDT [facility] Name Value Range Interpretation Code Description Data Ro rce(s) Supporting Document(s) Thyrotropin [Units/volume] in Serum or Plasma by Detec tion limit <= 0.05 mIU/L 5.41 uIU/mL 0.47 - 5.01 H [facility] ID Date Data Source [id number] 04/12/2021 01:22:00 PM EDT [facility] Name Value Range Interpretation Code Description Data Ro rce(s) Supporting Document(s) BNP 1469 PG/ML 0 - 125 H [facility] ID Date Data Source [id number] 04/12/2021 01:22:00 PM EDT [facility] Name Value Range Interpretation Code Description Data Ro rce(s) Supporting Document(s) COMPREHENSIVE METABOLIC PANEL [facility] COMPREHENSIVE METABOLIC PANEL Sodium [Moles/volume] in Serum or Plasma 143 mEq/L 134 - 153 [facility] Potassium [Moles/volume] in Serum or Plasma 4.9 mEq/L 3.6 - 5.0 [facility] Chloride [Moles/volume] in Serum or Plasma 101 mEq/L 98 - 107 [facility] Carbon dioxide, total [Moles/volume] in Serum or Plasma 34 MEQ/L 22 - 30 H [facility] Glucose [Mass/volume] in Serum or Plasma 88 MG/DL 70 - 99 [facility] BUN 52 MG/DL 7 - 21 H [facility] Creatinine [Mass/volume] in Serum or Plasma 2.3 MG/DL 0.7 - 1.5 H [facility] BUN/CREAT 23 8 - 27 [facility] Protein [Mass/volume] in Serum or Plasma 6.3 G/DL 6.3 - 8.2 [facility] Albumin [Mass/volume] in Serum or Plasma 3.9 G/DL 3.9 - 5.0 [facility] Globulin [Mass/volume] in Serum by calculation 2.4 GM/DL 2.4 - 3.2 [facility] A/G RATIO 1.6 0.8 - 2.0 [facility] Calcium [Mass/volume] in Serum or Plasma 9.1 MG/DL 8.4 - 10.2 [facility] Bilirubin.total [Mass/volume] in Serum or Plasma <0.7 MG/DL 0.2 - 1.3 [facility] Alkaline phosphatase [Enzymatic activity/volume] in Serum or Plasma 81 U/L 38 - 126 [facility] Aspartate aminotransferase [Enzymatic activity/volume] in Serum or Plasma 11 U/L 5 - 40 [facility] Alanine aminotransferase [Enzymatic activity/volume] in Seru m or Plasma 7 U/L 7 - 56 [facility] Anion gap 3 in Serum or Plasma 8.0 mmol/L 8.0 - 16.0 [facility] AGE 76 yrs [facility] NON-AA GFR 22 mL/min [facility] AFR AMER GFR >60 [facility] Male GFR In terprentation 20-49 [...] >32 mL/min Normal ID Date Data Source [id number] 04/12/2021 01:18:00 PM EDT [facility] Name Value Range Interpretation Code Description Data Ro rce(s) Supporting Document(s) Magnesium [Mass/volume] in Serum or Plasma 2.2 MG/DL 1.7 - 2.2 [facility] ID Date Data Source [id number] 04/12/2021 01:18:00 PM EDT [facility] Name Value Range Interpretation Code Description Data Ro rce(s) Supporting Document(s) Lipase [Enzymatic activity/volume] in Serum or Plasma 26 U/L 13 - 60 [facility] ID Date Data Source [id number] 04/12/2021 12:59:00 PM EDT [facility] Name Value Range Interpretation Code Description Data Ro rce(s) Supporting Document(s) TROPONIN T <0.01 NG/ML 0.00 - 0.10 [facility] TROPONIN T0.1 ng/ml Recommended as the c linical threshold value forTroponin T. ID Date Data Source [id number] 04/12/2021 12:55:00 PM T [facility] Value Range Interpretation Code Description Data Ro rce(s) Supporting Document(s) Prothrombin time (PT) 13.6 SECONDS 11.0 - 15.5 [facility] INR in Platelet poor plasma by Coagulation assay 1.03 0.93 - 1. 23 [facility] aPTT in Blood by Coagulation assay 27.8 SECONDS 24.8 - 36.7 [facility] \\BLDo\\INR INTERPRETATION\\BLDx\\ Therapeutic range for Coumadin and related oral anticoagulants. - International Normalized Ratio (INR): 2.0 - 3.0 for Venous Thrombosis, Pulmonary Embolus, Tissue heart valves, Acute NH Atrial Fibrillation, Valvular heart disease and recurrent Systemic Embolism. - International Normalized Ratio (INR): 2.5 - 3.5 for Mechanical Prosthetic valve. ID Date Data Source [id number] 04/12/2021 12:44:00 PM EDT [facility] Name Value Range Interpretation Code Description Data Ro rce(s) Supporting Document(s) CBC W/AUTOMATED DIFF [facility] COMPLETE BLOOD COUNT Leukocytes [#/volume] in Blood by Automated count 9.5 10^3/uL 4.2 - 1 1.0 [facility] Erythrocytes [#/volume] in Blood by Automated count 2.99 10^6/uL 4. 20 - 5.40 L [facility] Hemoglobin [Mass/volume] in Blood 9.7 g/dL 12.0 - 16.0 L [facility] Hematocrit [Volume Fraction] of Blood by Automated count 32.0 % 3 7.0 - 47.0 L [facility] Erythrocyte mean corpuscular volume [Entitic volume] b y Automated count 107.0 fL 81.0 - 101 H [facility] Erythrocyte mean corpuscular hemoglobin [Entitic mass] by Automated count 32.4 pg 27.0 - 34.0 [facility] Erythrocyte mean corpuscular hemoglobin concentration [Mass/volume] by Automated count 30.3 g/dL 31.0 - 36.0 L [facility] Erythrocyte distribution width [Ratio] by Automated count 16.0 % 11.5 - 14.5 H [facility] Platelets [#/volume] in Blood by Automated count 194 10^3/uL 150 - 45 0 [facility] Platelet mean volume [Entitic volume] in Blood by Automated count 9.5 fL 7.4 - 10.4 [facility] Neutrophils/100 leukocytes in Blood by Automated count 73.5 % 37. 0 - 80.0 [facility] Lymphocytes/100 leukocytes in Blood by Manual count 12.4 % 25.0 - 40.0 L [facility] Monocytes/100 leukocytes in Blood by Automated count 7.8 % 3.0 - 8.0 [facility] Eosinophils/100 leukocytes in Blood by Automated count 3.5 % 0.0 - 7.0 [facility] Basophils/100 leukocytes in Blood by Automated count 0.5 % 0.0 - 2.5 [facility] %IG 2.3 % 0.0 - 0.0 [facility] %NRBC 0.0 % 0.0 - 0.0 [facility] al Neutrophils [#/volume] in Blood by Automated count 6.95 10^3/uL 2.00 - 6.90 H [facility] Lymphocytes [#/volume] in Blood by Automated count 1.17 10^3/uL 0.60 - 3.40 [facility] Monocytes [#/volume] in Blood by Automated count 0.74 10^3/uL 0.00 - 0.90 [facility] Eosinophils [#/volume] in Blood by Automated count 0.33 10^3/uL 0.00 - 0.70 [facility] Basophils [#/volume] in Blood by Automated count 0.05 10^3/uL 0.00 - 0.20 [facility] #IG 0.22 10^3/uL 0.00 - 0.10 H [facility] #NRBC 0.00 10^3/uL 0.00 - 0.00 [facility] MANUAL DIFF NOT INDICATED [facility] RBC MORPH NOT INDICATED [facility] ID Date Data Source [id number] 03/23/2021 01:22:00 PM EDT [facility] HE[facility] WO IV CONTRASTCLINICAL HISTORY: [...] rce(s) Supporting Document(s) ID Date Data Source [id number] 02/07/2021 01:53:00 PM EDT [facility] (Silver Peterson MD) Name Value Range Interpretation Code Description Data Ro rce(s) Supporting Document(s) Magnesium [Mass/volume] in Serum or Plasma 2.6 mg/dL 1.8-2.4 Above high normal [facility] (Silver Peterson MD) Natriuretic peptide.B prohormone N-Terminal [Mass/volu me] in Serum or Plasma 1098 pg/mL Above high normal [facility] (Silver Peterson MD) ID Date Data Source [id number] 02/07/2021 01:53:00 PM EDT [facility] (Silver Peterson MD) Name Value Range Interpretation Code Description Data Ro rce(s) Supporting Document(s) Laboratory test finding (navigational concept) 206 mg/dL Above high normal [facility] (Silver Peterson MD) Laboratory test finding (navigational concept) 41 mg/dL Normal (applies to non-numeric results) [facility] (Silver Peterson MD) Laboratory test finding (navigational concept) 163 mg/dL Normal (applies to non-numeric results) [facility] (Silvre Peterson MD) Laboratory test finding (navigational concept) 81 mg/dL Normal (applies to non-numeric results) [facility] (Silver Peterson MD) Laboratory test finding (navigational concept) 122 mg/dL Normal (applies to non-numeric results) [facility] (Silver Peterson MD) Laboratory test finding (navigational concept) 3.975 Normal (applies to non- numeric results) [facility] (Silver Peterson MD) ID Date Data Source [id number] 02/07/2021 01:53:00 PM EDT [facility] (Silver Peterson [...] Little GFR Left</content>
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
<content></content> Laboratory test finding (navigational concept) 106 [...] (Silver Peterson MD) ID Date Data Source [id number] 02/07/2021 01:53:00 PM EDT [facility] (Silver Peterson [...] Normal (applies to non-numeric results) [facility] (Silver Pteerson MD) Laboratory test finding (navigational concept) 6.4 [...] (Silver Peterson MD) ID Date Data Source [id number] 12/20/2020 10:59:00 [place] [address] PHONE: [phone] FAX: [phone] Name .................. : TR DONALD E Acct Number.................. : [id number] ROOM. ................. : Number ................... : [id number] Stay type ............. : O/P Discharge Date......... ... : 12/18/20 Admit Date ......... : 12/18/20 Admit Phys .................... : HAIDER SOMMER Date of ....... : 1945 Family Phys ................... : CASPER Phone .................. : [phone] Age ................................ : 75 Film# .................. .:[id number] Sex ................................. : F Unsigned transcriptions are preliminary reports and do not represent a medical or legal document CT CERV SPINE W/O CONTRAS [id number] COMPLETE:12/18/20 19:20 [facility] 8545 Reason for Exam: UNSTEADINESS [...] imperative reconstructive techniques. Page 1 of 2 [facility] [address] [place] [address] [place] [address] PHONE: [phone] FAX: [phone] Name .................. : TR Whitley Acct Number.................. : [id number] ROOM. ................. : MR Number ................... : [id number] Stay type ............. : O/P Discharge Date......... ... : 12/18/20 Admit Date ......... : 12/18/20 Admit Phys .................... : HAIDER SOMMER Date of ....... : 1945 Family Phys ................... : Takumii [place] Phone .................. : [phone] Age ................................ : 75 Film# ... ............... .:[id number] Sex ................................. : F Unsigned transcriptions are preliminary reports and do not represent a medical or legal document CT CERV SPINE W/O CONTRAS 10779 COMPLETE:12/18/20 19:20 [facility] 8545 Reason for Exam: UNSTEADINESS ON FEET CT dose: 868.3 mGycm Electronically Reviewed and Signed By Viet Parra MD , 12/20/20 10:59, KGG Transcribe Initials: DZ , Transcribe Date: 12/19/20 05:34, Dictation Date: Copy for: HAIDER SOMMER via fax Copy for: CASPER DANYA via modem Copy for: [address] [place] [address] REC Page 2 of 2 Name Value Range Interpretation Code Description Data Ro rce(s) Supporting Document(s) ID Date Data Source [id number] 12/19/2020 11:57:00 AM EDT [facility] [address] [place] [address] PHONE: [phone] FAX: [phone] Name .................. : PATRICIADEVI BENNETT Gutierrez Acct Number.................. : [id number] ROOM. ................. : MR Number ................... : [id number] Stay type ............. : O/P Discharge Date......... ... : 12/18/20 Admit Date ......... : 12/18/20 Admit Phys .................... : HAIDER YUMIKO Date of ....... : 1945 Family Phys ................... : CASPER Phone .................. : [phone] Age ................................ : 75 Film# .................. .:[id number] Sex ................................. : F Unsigned transcriptions are preliminary reports and do not represent a medical or legal document CT HEAD W/O CONTRAST 08271 COMPLETE:12/18/20 19:20 [facility] 8544 Reason for Exam: TREMOR,SEIZURES, [...] via fax Copy for: CASPER RACHEL via cataumetm Page 1 of 2 [place] [address] PHONE: [phone] FAX: [phone] Name .................. : TR Whitley Acct Number.................. : [id number] ROOM. ................. : Number ................... : [id number] Stay type ............. : O/P Discharge Date......... ... : 12/18/20 Admit Date ......... : 12/18/20 Admit Phys .................... : HAIDER SOMMER Date of ....... : 1945 Family Phys ................... : CASPER Phone .................. : [phone] Age ................................ : 75 Film# .................. .:[id number] Sex ................................. : F Unsigned transcriptions are preliminary reports and do not represent a medical or legal document CT HEAD W/O CONTRAST 62042 COMPLETE:12/18/20 19:20 [facility] 8544 Reason for Exam: TREMOR,SEIZURES, UNSTEADINESS ON FEET Copy for: 710 MED REC Page 2 of 2 Name Value Range Interpretation Code Description Data Ro rce(s) Supporting Document(s) ID Date Data Source [id number] 11/30/2020 06:26:00 PM EDT [facility] (Silver Peterson MD) Name Value Range Interpretation Code Description Data Ro rce(s) Supporting Document(s) Lipoprotein lipase [Enzymatic activity/volume] in Serum or P lasma 104 U/L 73-393 Normal (applies to non-numeric results) [facility] ( Silver Peterson MD) ID Date Data Source [id number] 11/30/2020 06:26:00 PM EDT [facility] (Silver Peterson [...] (Silver Peterson MD) ID Date Data Source [id number] 11/30/2020 06:26:00 PM EDT [facility] (Silver Peterson [...] <content>Troponin I Reference Interval f or Siemens [place] LOCI:</content>
<content></content>
<content>99th Percentile= 0.00-0.045 ng/ml</content>
<content></content>
<content>Risk Stratification:</content>
<content><= 0.10 ng/ml Decreased Risk for Adverse Clinical</content>
<content>Events.</content>
<content>0.10-1.50 ng/ml Increased Risk for Adverse Clinical</content>
<content>Events. Evaluation of additional</content>
<content>criterion and/or repeat testing in 2-6</content>
<content>hours is suggested to rule out myocardial</content>
<content>damage.</content>
<content>>= 1.50 ng/ml Indicative of Myocardial Injury.</content>
<content></content> ID Date Data Source [id number] 11/30/2020 06:14:00 PM EDT [facility] Name Value Range Interpretation Code Description Data Ro rce(s) Supporting Document(s) SARS coronavirus 2 RNA [Presence] in Res piratory specimen by AMARA with probe detection NEGATIVE [facility] This lab was ordered by [facility] a nd reported by [facility]. ID Date Data Source [id number] 11/30/2020 05:20:00 PM EDT [facility] (Silver Peterson [...] (Silver Peterson MD) ID Date Data Source [id number] 11/30/2020 05:16:00 PM EDT [facility] (Silver Peterson MD) Name Value Range Interpretation Code Description Data Ro rce(s) Supporting Document(s) Natriuretic peptide.B prohormone N-Terminal [Mass/volu me] in Serum or Plasma 1279 pg/mL Above high normal [facility] (Silver Peterson MD) ID Date Data Source [id number] 11/30/2020 05:16:00 PM EDT [facility] (Silver Peterson [...] (Silver Peterson MD) ID Date Data Source [id number] 11/28/2020 12:41:00 [place] [address] PHONE: [phone] FAX: [phone] Name .................. : TR Whitley Acct Number.................. : [id number] ROOM. ................. : TR-08 Number ................... : [id number] Stay type ............. : E/R Discharge Date......... ... : 11/27/20 Admit Date ......... : 11/27/20 Admit Phys .................... : BERE ULRICH Date of ....... : 1945 Family Phys ................... : CASPER Phone .................. : [phone] Age ................................ : 75 Film# .................. .:[id number] Sex ................................. : F Unsigned transcriptions are preliminary reports and do not represent a medical or legal document SPINE THORACIC 10442 COMPLETE:11/27/20 16:48 KBO 6800 Reason(s): Fall THORACIC SPINE X-RAY: INDICATION: Fall. FINDINGS: Alignment is maintained. Anterior vertebral body heights are maintained. There is no fracture or dislocation. Multilevel degenerative disc disease is noted. There is exaggerated kyphosis. IMPRESSION: 1. No acute osseous abnormality of the thoracic spine. 2. Multilevel degenerative changes. Electronically Reviewed and Signed By Robert Gilliland M.D. , 11/28/20 12:41, MDY Transcribe Initials: DZ , Transcribe Date: 11/28/20 00:39, Dictation Date: Copy for: EDOUARD LOYA via fax Copy for: CASPER RACHEL via modem Copy for: [facility]Y DEPT via modem Copy for: 710 MED REC DISCHARGED Page 1 of 1 Name Value Range Interpretation Code Description Data Ro rce(s) Supporting Document(s) ID Date Data Source [id number] 11/28/2020 12:41:00 [place] [address] PHONE: [phone] FAX: [phone] Name .................. : TR Whitley Acct Number.................. : [id number] ROOM. ................. : TR-08 Number ................... : [id number] Stay type ............. : E/R Discharge Date......... ... : 11/27/20 Admit Date ......... : 11/27/20 Admit Phys .................... : BERE SERG Date of ....... : 1945 Family Phys ................... : CASPER Phone .................. : [phone] Age ................................ : 75 Film# .................. .:[id number] Sex ................................. : F Unsigned transcriptions are preliminary reports and do not represent a medical or legal document CHEST 2 VIEWS 07458 COMPLETE:11/27/20 16:48 KBO 6799 Reason(s): Chest Pain [...] rce(s) Supporting Document(s) ID Date Data Source [id number] 11/28/2020 12:41:00 PM EDT [facility] [address] [place] [address] PHONE: [phone] FAX: [phone] Name .................. : TR BENNETT Gutierrez Acct Number.................. : [id number] ROOM. ................. : TR[facility] Number ................... : [id number] Stay type ............. : E/R Discharge Date......... ... : 11/27/20 Admit Date ......... : 11/27/20 Admit Phys .................... : BERE ULRICH Date of ....... : 1945 Family Phys ................... : [facility] Phone .................. : [phone] Age ................................ : 75 Film# .................. .:[id number] Sex ................................. : F Unsigned transcriptions are preliminary reports and do not represent a medical or legal document HIP UNILAT W PELV 2 TO 3V LT [id number] COMPLETE:11/27/20 16:48 KBO 6798 Reason(s): Hip Injury [...] rce(s) Supporting Document(s) ID Date Data Source [id number] 11/27/2020 03:26:00 PM EDT [facility] 1 OrderSheet [facility] Emergency Department [address] [place] [address] Phone #: ext- [phone] 11/27/2020 15:12 Patient: DONALD ARMANDO Sex: F : 1945 Age: 75yWEIGHT:73.4 kg (S) HEIGHT:63 inches (S) BMI:28.7ALLERGIES: Codeine, DilantinCHIEF COMPLAINT: slipped, fall, attempting to get upDIAGNOSIS: Fall, Contusion, PneumoniaLAB ORDERSOrder Description Priority Entered Acknowledged InitialedUrinalysis (Clean STAT 16:42 11/27/2020 16:53 BurnhamCatch) [facility] ED; [id number] STUDY ORDERSOrder Description Priority Entered Acknowledged InitialedHip Left with Pelvis STAT 16:07 11/27/2020 16:13 Burnham2-3 Views [facility] ED; Tech1 Reason for Study: Hip Injury, Hip PainChest 2 View STAT 16:07 11/27/2020 16:13 Chari(Oxygen?(No)) Ravindra Kimble calibration engineer, [facility] PA; Tech1 NOTES: Fall left rib pain Reason for Study: Chest PainSpine Thoracic AP STAT 16:07 11/27/2020 16:13 BurnhamAnd Lat Ravindra Kimble calibration engineer, [facility](Oxygen?(No)) PA; Tech1 Reason for Study: Fall, Mid Back PainMEDICATION/IV/DRIP/FLUID ORDERSOrder Description Priority Entered Acknowledged InitialedTylenol PO 1000 16:07 11/27/2020 16:55 Petermg Ravindra Whalen RN PA;Vicodin (5-325mg) 17:17 11/27/2020 17:32 PeterPO 1 tab ( HIGH Ravindra SERRANO PA;MEDICATION)GENERAL ORDERS 2 OrderSheet [facility] Emergency Department [address] [place] [address] Phone #: ext- [phone] 11/27/2020 15:12 Patient: [...] rce(s) Supporting Document(s) ID Date Data Source [id number] 11/27/2020 03:26:00 PM EDT [facility] 1 Medication Reconciliation Report [facility] Emergency Department [address] [place] [address] Phone #: ext- [phone] 11/27/2020 15:12 Patient: [...] Oral 50mcg, daily 2 Medication Reconciliation Report [facility] Emergency Department [address] [place] [address] Phone #: ext- [phone] 11/27/2020 15:12 Patient: [...] Pharmacy - [facility]: $217.82. Adjudicatewith: BIN:[id number] PCN:BIJAN Group:EMR ID:[id number]. Phone:[phone].Pharmacy - [facility] [address] [place] [address]. .azithromycin 250 mg tablet -- Take 2 tablets on the first day then one tablet daily for 4 days, totalduration is 5 days. Dispense 6 tablet. Refills: 0. Substitution permitted.Pharmacy - [facility] [address] [place] [address]. .gabapentin 100 mg capsule Take 1 capsule three times a day for 30 days -- Dispense 90 capsule.Refills: 0. Substitution permitted. Note to Pharmacy - [facility]: $19.99. Adjudicate with:BIN:[id number] N:BIJAN Group:EMR ID:[id number]. Phone:[phone].[facility] [address] [place] [address]. . -- SHIRA Medina Name Value Range Interpretation Code Description Data Ro rce(s) Supporting Document(s) ID Date Data Source [id number] 11/27/2020 03:26:00 PM EDT [facility] 1 Medication Administration Record [facility] Emergency Department [address] [place] [address] Phone #: [phone] ext- [phone] 11/27/2020 15:12 Patient: DONALD ARMANDO Sex: F [...] rce(s) Supporting Document(s) ID Date Data Source [id number] 11/27/2020 03:26:00 PM EDT [facility] 1 General Instructions [facility] Emergency Department [address] [place] [address] Phone #: ext- [phone] 11/27/2020 15:12 Patient: [...] - [facility]: $217.82. Adjudicate with: BIN:[id number] PCN:BIJAN Group:EMR ID:[id number]. Phone:[phone]. Pharmacy - [facility][id number] - [facility] [place], [place] [id number]. . azithromycin 250 mg tablet -- Take 2 tablets on the first day then one tablet daily for 4 days, total 2 General Instructions [facility] Emergency Department [address] [place] [address] Phone #: ext- [phone] 11/27/2020 15:12 [id number] Sex: F : 1945 Age: 75y duration is 5 days. Dispense 6 tablet. Refills: 0. Substitution permitted. Pharmacy - [id number] [address] [place], [place] [id number]. . gabapentin 100 mg capsule Take 1 capsule three times a day for 30 days -- Dispense 90 capsule. Refills: 0. Substitution permitted. Note to Pharmacy - [facility]: $19.99. Adjudicate with: BIN:[id number] PCN:BIJAN Group:EMR ID:[id number]. Phone:[phone]. Pharmacy - [facility] #[id number] - [address] [place], [place] [id number]. . Follow-up: Follow up with your doctor [...] muscles without stretching them. 3 General Instructions [facility] Emergency Department [address] [place] [address] Phone #: ext- [phone] 11/27/2020 15:12 --------- [...] you don't trip over 4 General Instructions [facility] Emergency Department [address] [place] [address] Phone #: ext- [phone] 11/27/2020 15:12 Patient: DONALD ARMANDO Sex: F [...] the reading, especially if it affects treatment.Call [id number] if any of these happen: Trouble breathing [...] in vomit, stools (black or red color) 6593-7698 [employer]. [address] [place] [address], [place] [address]. All rights reserved. This information is not intended as asubstitute for professional medical care. Always follow your healthcare professional's instructions.Chest Bruise (Contusion) 5 General Instructions [facility] Emergency Department [address] [place] [address] Phone #: ext- [phone] 11/27/2020 15:12 Patient: [...] damp with warm water. 6 General Instructions [facility] Emergency Department [address] [place] [address] Phone #: ext- [phone] 11/27/2020 15:12 Patient: DONALD ARMANDO Sex: F : 1945 Age: 75y Hold a pillow to the affected area when you cough. This will help ease pain. You may use [id number]-[id number] pain medicine such as acetaminophen or ibuprofen [...] suddenly or lasts more than an hour 4910-9695 [employer]. [address] [place] [address]. All rights reserved. This information is not [...] ulcer or digestive bleeding. 7 General Instructions [facility] Emergency Department [address] [place] [address] Phone #: [phone] txr- [phone] 11/27/2020 15:12 Patient: DONALD ARMANDO Sex: F [...] individual fingers. Frequent bruising for unknown reasons 3745-6223 [employer]. [address] [place] [address]. All rights reserved. This information is not [...] ulcer or digestive bleeding. 8 General Instructions [facility] Emergency Department [address] [place] [address] Phone #: ext- [phone] 11/27/2020 15:12 Patient: [...] injured area Frequent bruising for unknown reasons 4931-1407 [employer]. [address] [place] [address], [place] [address]. All rights reserved. This information is not [...] first week of treatment. 9 General Instructions [facility] Emergency Department [address] [place] [address] Phone #: ext- [phone] 11/27/2020 15:12 Patient: [...] smoke in your home. 10 General Instructions [facility] Emergency Department [address] [place] [address] Phone #: ext- [phone] 11/27/2020 15:12 Patient: DONALD ARMANDO Sex: F : 1945 Age: 75y Prevent lung infections. Ask your healthcare provider about the flu and pneumonia vaccines. Take steps to prevent colds and other lung infections. Practice correct handwashing. Wash your hands often with soap and water. Use hand communications department head when you can't wash your hands. Stay [...] about whichpneumococcal vaccine is best for you.Call [id number] any of these occur: 11 General Instructions [facility] Emergency Department [address] [place] [address] Phone #: ext- [phone] 11/27/2020 15:12 Patient: [...] Symptoms that get worse or not improving 1506-0754 [employer]. [address] [place] [address]. All rights reserved. This information is not intendedas a substitute for professional medical care. Always follow your healthcare professional's instructions. You have been given the following additional information: Mechanical Fall Chest Wall Contusion 12 General Instructions [facility] Emergency Department [address] [place] [address] Phone #: ext- [phone] 11/27/2020 15:12 Patient: DONALD ARMANDO Sex: F : 1945 Age: 75y Contusion, Upper Extremity Contusion, Lower Extremity Pneumonia (Adult)(Electronically signed by SHIRA Medina 11/27/2020 21:39) Name Value Range Interpretation Code Description Data Ro rce(s) Supporting Document(s) ID Date Data Source [id number] 11/27/2020 03:26:00 PM EDT [facility] 1 Clinical Report - Nurses [facility] Emergency Department [address] [place] [address] Phone #: ext- [phone] 11/27/2020 15:12 Patient: [...] axillary area, and bruised her right knee).Treatment CHILD CARE ASSISTANT:None.SEPSIS SCREEN: SIRS SCREEN NEGATIVE. SEPSIS SCREEN NEGATIVE. [...] at bedtime. 2 Clinical Report - Nurses [facility] Emergency Department [address] [place] [address] Phone #: ext- [phone] 11/27/2020 15:12 Patient: [...] palpation to 3 Clinical Report - Nurses [facility] Emergency Department [address] [place] [address] Phone #: ext- [phone] 11/27/2020 15:12 Patient: DONALD ARMANDO Sex: F [...] monitor and NIBP monitor placed on patient; rn cardiac rehab- Lead II; monitor alarms on.Extremity elevated. Patient gowned. Reassurance given. Call light placed in reach. Side rails up x 2.Bed placed in lowest position. Brakes of bed on. Patient ready for evaluation- ED physician notified.--15:35 11/27/20 Osmar Whalen RN Patient transported to CT by stretcher with mask and instructional technology coach. --16:15 11/27/20 [place] calibration engineer, [place], ER Tech1 Correction --16:15 11/27/20 [place] calibration engineer, [place], ER Tech1 Patient transported to radiology by stretcher with instructional technology coach. --16:16 11/27/20 [place] calibration engineer, [place], ER Tech1 Patient ID band checked for patient name and birthdate: patient confirmed. Instructions provided to collect clean catch urine and patient verbalized understanding. Clean catch urine collected with return of yellow-colored clear urine; sample sent to lab for urinalysis and culture. Specimen labeled in the presence of the patient. --16:55 11/27/20 [place] calibration engineer, [place], ER Tech1 16:55 11/27/2020 Tylenol (APAP) PO [...] Patient verbalized understanding. Written instructions provided in Turkish. The patient was discharged by the physician city carrier assistant. She was discharged home and accompanied by family. She left in a wheelchair and via private vehicle. Family member driving. --17:44 11/27/20 Osmar Whalen RN 17:43 11/27/20. BP: 118/65. MAP: 82. HR: 71. RR: 18. O2 saturation: 96%. Pain level now: 02/15. 4 Clinical Report - Nurses [facility] Emergency Department [address] [place] [address] Phone #: ext- [phone] 11/27/2020 15:12 Patient: DONALD ARMANDO Sex: F : 1945 Age: 75y --17:44 11/27/20 Osmar Whalen RN.Locked/Released at 11/27/2020 17:44 by Osmar Whalen RN Name Value Range Interpretation Code Description Data Ro rce(s) Supporting Document(s) ID Date Data Source [id number] 11/27/2020 03:26:00 PM EDT [facility] 1 Clinical Report - Physicians/Mid Levels [facility] Emergency Department [address] [place] [address] Phone #: ext- [phone] 11/27/2020 15:12 Patient: [...] bedtime. 2 Clinical Report - Physicians/Mid Levels [facility] Emergency Department [address] [place] [address] Phone #: ext- [phone] 11/27/2020 15:12 Patient: DONALD ARMANDO Sex: F [...] for 3 Clinical Report - Physicians/Mid Levels [facility] Emergency Department [address] [place] [address] Phone #: ext- [phone] 11/27/2020 15:12 Patient: DONALD ARMANDO Sex: F [...] - [facility]: $217.82. Adjudicate with: BIN:[id number] PCN:BIJAN Group:EMR ID:[id number]. Phone:[phone]. [id number] [id number]. . 4 Clinical Report - Physicians/[facility] Emergency Department [address] [place] [address] Phone #: ext- [phone] 11/27/2020 15:12 Patient: DONALD ARMANDO Sex: F : 1945 Age: 75y azithromycin 250 mg tablet -- Take 2 tablets on the first day then one tablet daily for 4 days, total duration is 5 days. Dispense 6 tablet. Refills: 0. Substitution permitted. Pharmacy - [facility] #[id number] [place], [place] [id number]. . gabapentin 100 mg capsule Take 1 capsule three times a day for 30 days -- Dispense 90 capsule. Refills: 0. Substitution permitted. Note to Pharmacy - [facility]: $19.99. Adjudicate with: BIN:[id number] PCN:CHIPPO Group:EMR ID:[id number]. Phone:[phone]. [facility] - [facility] #[id number] - [address] [place], [place] [phone]. FaxNumber: . Follow-up: Follow up with your doctor in three days if not better. Reason for referral: evaluation and treatment. Summary of care provided to patient. Understanding of the discharge instructions verbalized by patient.(Electronically signed by SHIRA Medina 11/27/2020 21:39) Name Value Range Interpretation Code Description Data Ro rce(s) Supporting Document(s) ID Date Data Source [id number] 11/27/2020 04:45:00 PM EDT [facility] (Silver Peterson [...] SOURCE: Clean Catch ID Date Data Source [id number] 11/27/2020 05:14:00 PM EDT [facility] Name Value Range Interpretation Code Description Data Ro rce(s) Supporting Document(s) URINALYSIS [facility] yellow NORMAL: Yellow [facility] ospital CLARITY clear NORMAL: Clear [facility] Specific gravity of Urine by Test strip 1.020 1.001 - 1.030 [facility] pH 5 5 - 9 [facility] al Glucose [Mass/volume] in Urine by Test strip NORM NORMAL: Negat [facility] Bilirubin.total [Presence] in Urine by Test strip NEG NORMAL: Negative [facility] Ketones [Presence] in Urine by Test strip NEG NORMAL: Negative [facility] Protein [Mass/volume] in Urine by Test strip NEG NORMAL: Negat [facility] Nitrite [Presence] in Urine by Test strip NEG NORMAL: Negative [facility] BLOOD NEG NORMAL: Negative [facility] Leukocyte esterase [Presence] in Urine by Test strip NEG FARRUKH L: Negative [facility] Urobilinogen [Mass/volume] in Urine by Test strip NOR less joyce n 1.0 mg/dL [facility] MICROSCOPIC Not Indicate [facility] ID Date Data Source [id number] 09/13/2020 01:40:00 PM EST [facility] [address] [place] [address] PHONE: [phone] FAX: [phone] Name .................. : TR Childerst Number.................. : [id number] ROOM. ................. : MR Number ................... : [id number] Stay type ............. : O/P Discharge Date......... ... : 09/12/20 Admit Date ......... : 09/12/20 Admit Phys .................... : REY PAUL Date of ....... : 1945 Family Phys ................... : Takumii [place] Phone .................. : [phone] Age ................................ : 75 Film# .................. .:[id number] Sex ................................. : F Unsigned transcriptions are preliminary reports and do not represent a medical or legal document [place] COMPLETE LT [id number] COMPLETE:09/12/20 15:25 KBO 1498 (REASON FOR PROCESS: [...] CASPER RACHEL via modem Copy for: 710 [facility] REC Page 1 of 1 Name Value Range Interpretation Code Description Data Ro rce(s) Supporting Document(s) ID Date Data Source [id number] 09/13/2020 01:40:00 PM EST [facility] [address] [place] [address] PHONE: [phone] FAX: [phone] Name .................. : TR Whitley Acct Number.................. : [id number] ROOM. ................. : MR Number ................... : [id number] Stay type ............. : O/P Discharge Date......... ... : 09/12/20 Admit Date ......... : 09/12/20 Admit Phys .................... : REY PAUL Date of ....... : 1945 Family Phys ................... : ENAPHILLIPFRANCISCA Phone .................. : [phone] Age ................................ : 75 Film# .................. .:[id number] Sex ................................. : F Unsigned transcriptions are preliminary reports and do not represent a medical or legal document SPINE LS COMPLETE [id number] COMPLETE:09/12/20 15:25 KBO 1497 (SPINE PROC REASON: [...] By Robert Gilliland M.D. , 09/13/20 13:40, [facility] Transcribe Initials: KIRIT , Transcribe Date: 09/12/20 17:14, Dictation Date: Copy for: REY LOFTON via modem Copy for: CASPER RACHEL via modem Copy for: Laura MED REC Page 1 of 1 Name Value Range Interpretation Code Description Data Ro rce(s) Supporting Document(s) ID Date Data Source [id number] 09/12/2020 01:25:00 PM EST [facility] (Silver Peterson [...] >32 mL/min Normal ID Date Data Source [id number] 09/12/2020 01:25:00 PM EST [facility] (Silver Peterson [...] Peterson MD) COMMENT: ID Date Data Source [id number] 09/12/2020 02:48:00 PM EST [facility] Name Value Range Interpretation Code Description Data Ro rce(s) Supporting Document(s) COMPREHENSIVE METABOLIC PANEL [facility] COMPREHENSIVE METABOLIC PANEL Sodium [Moles/volume] in Serum or Plasma 144 mEq/L 134 - 153 [facility] Potassium [Moles/volume] in Serum or Plasma 5.2 mEq/L 3.6 - 5.0 H [facility] Chloride [Moles/volume] in Serum or Plasma 101 mEq/L 98 - 107 [facility] Carbon dioxide, total [Moles/volume] in Serum or Plasma 33 MEQ/L 22 - 30 H [facility] Glucose [Mass/volume] in Serum or Plasma 62 MG/DL 65 - 110 L [facility] BUN 62 MG/DL 7 - 21 H [facility] al Creatinine [Mass/volume] in Serum or Plasma 3.0 MG/DL 0.7 - 1.5 H [facility] BUN/CREAT 21 8 - 27 [facility] al Protein [Mass/volume] in Serum or Plasma 6.7 G/DL 6.3 - 8.2 [facility] Albumin [Mass/volume] in Serum or Plasma 4.0 G/DL 3.9 - 5.0 [facility] Globulin [Mass/volume] in Serum by calculation 2.7 GM/DL 2.4 - 3.2 [facility] A/G RATIO 1.5 0.8 - 2.0 [facility] Calcium [Mass/volume] in Serum or Plasma 9.5 MG/DL 8.4 - 10.2 [facility] Bilirubin.total [Mass/volume] in Serum or Plasma <0.7 MG/DL 0.2 - 1.3 [facility] Alkaline phosphatase [Enzymatic activity/volume] in Serum or Plasma 76 U/L 38 - 126 [facility] Aspartate aminotransferase [Enzymatic activity/volume] in Serum or Plasma 10 U/L 5 - 40 [facility] Alanine aminotransferase [Enzymatic activity/volume] in Seru m or Plasma 8 U/L 7 - 56 [facility] Anion gap 3 in Serum or Plasma 10.0 mmol/L 8.0 - 16.0 [facility] AGE 75 yrs [facility] NON-AA GFR 16 mL/min [facility] AFR AMER GFR >60 [facility] Male GFR In terprentation 20-49 [...] >32 mL/min Normal ID Date Data Source [id number] 09/12/2020 02:08:00 PM EST [facility] Name Value Range Interpretation Code Description Data Ro rce(s) Supporting Document(s) CBC W/AUTOMATED DIFF [facility] COMPLETE BLOOD COUNT Leukocytes [#/volume] in Blood by Automated count 9.1 10^3/uL 4.2 - 1 1.0 [facility] Erythrocytes [#/volume] in Blood by Automated count 3.20 10^6/uL 4. 20 - 5.40 L [facility] Hemoglobin [Mass/volume] in Blood 9.9 g/dL 12.0 - 16.0 L [facility] Hematocrit [Volume Fraction] of Blood by Automated count 32.5 % 3 7.0 - 47.0 L [facility] Erythrocyte mean corpuscular volume [Entitic volume] b y Automated count 101.6 fL 81.0 - 101 H [facility] Erythrocyte mean corpuscular hemoglobin [Entitic mass] by Automated count 30.9 pg 27.0 - 34.0 [facility] Erythrocyte mean corpuscular hemoglobin concentration [Mass/volume] by Automated count 30.5 g/dL 31.0 - 36.0 L [facility] Erythrocyte distribution width [Ratio] by Automated count 17.1 % 11.5 - 14.5 H [facility] Platelets [#/volume] in Blood by Automated count 272 10^3/uL 150 - 45 0 [facility] Platelet mean volume [Entitic volume] in Blood by Automated count 10.4 fL 7.4 - 10.4 [facility] Neutrophils/100 leukocytes in Blood by Automated count 65.8 % 37. 0 - 80.0 [facility] Lymphocytes/100 leukocytes in Blood by Manual count 17.2 % 25.0 - 40.0 L [facility] Monocytes/100 leukocytes in Blood by Automated count 12.2 % 3.0 - 8.0 H [facility] Eosinophils/100 leukocytes in Blood by Automated count 3.2 % 0.0 - 7.0 [facility] 0.5 %IG 1.1 % 0.0 - 0.0 H [facility] %NRBC 0.0 % 0.0 - 0.0 [facility] Neutrophils [#/volume] in Blood by Automated count 5.99 10^3/uL 2.00 - 6.90 [facility] Lymphocytes [#/volume] in Blood by Automated count 1.57 10^3/uL 0.60 - 3.40 [facility] Monocytes [#/volume] in Blood by Automated count 1.11 10^3/uL 0.00 - 0.90 H [facility] Eosinophils [#/volume] in Blood by Automated count 0.29 10^3/uL 0.00 - 0.70 [facility] Basophils [#/volume] in Blood by Automated count 0.05 10^3/uL 0.00 - 0.20 [facility] #IG 0.10 10^3/uL 0.00 - 0.10 [facility] #NRBC 0.00 10^3/uL 0.00 - 0.00 [facility] ospital MANUAL DIFF SEE BELOW [facility] ital Segmented neutrophils/100 leukocytes in Blood by Manual count 71 % 37 - 80 [facility] BAND 1 % 0 - 5 [facility] %LYMPH 11 % 25 - 40 L [facility] %MONO 14 % 3 - 8 H [facility] %EOS 1 % 0 - 7 [facility] 2 RBC MORPH SEE BELOW [facility] Anisocytosis [Presence] in Blood by Light microscopy 1+ FARRUKH L: NONE SEEN A [facility] Macrocytes [Presence] in Blood by Light microscopy 1+ NORMAL: NONE SEEN A [facility] Poikilocytosis [Presence] in Blood by Light microscopy 1+ NOR MAL: NONE SEEN A [facility] { SICKLE CELL (NORMAL: NONE SEEN ) Ovalocytes [Presence] in Blood by Light microscopy 1+ NORMAL: NONE SEEN A [facility] Platelet adequacy [Presence] in Blood by Light microscopy NORMAL NORMAL: NORMAL [facility] COMMENT: ID Date Data Source [id number] 08/09/2020 02:36:00 PM EST [facility] (Silver Peterson [...] COMMENT: _0 08/09/20.1609.TAD. ID Date Data Source [id number] 08/09/2020 02:36:00 PM EST [facility] (Silver Peterson [...] >32 mL/min Normal ID Date Data Source [id number] 08/09/2020 02:36:00 PM EST [facility] (Silver Peterson [...] (Silver Peterson MD) ID Date Data Source [id number] 08/09/2020 04:09:00 PM EST [facility] Name Value Range Interpretation Code Description Data Ro rce(s) Supporting Document(s) CBC W/AUTOMATED DIFF [facility] COMPLETE BLOOD COUNT Leukocytes [#/volume] in Blood by Automated count 11.4 10^3/uL 4.2 - 11.0 H [facility] Erythrocytes [#/volume] in Blood by Automated count 3.80 10^6/uL 4. 20 - 5.40 L [facility] Hemoglobin [Mass/volume] in Blood 11.5 g/dL 12.0 - 16.0 L [facility] Hematocrit [Volume Fraction] of Blood by Automated count 37.9 % 3 7.0 - 47.0 [facility] Erythrocyte mean corpuscular volume [Entitic volume] by Auto mated count 99.7 fL 81.0 - 101 [facility] Erythrocyte mean corpuscular hemoglobin [Entitic mass] by Automated count 30.3 pg 27.0 - 34.0 [facility] Erythrocyte mean corpuscular hemoglobin concentration [Mass/volume] by Automated count 30.3 g/dL 31.0 - 36.0 L [facility] Erythrocyte distribution width [Ratio] by Automated count 17.2 % 11.5 - 14.5 H [facility] Platelets [#/volume] in Blood by Automated count 287 10^3/uL 150 - 45 0 [facility] Platelet mean volume [Entitic volume] in Blood by Automated count 10.5 fL 7.4 - 10.4 H [facility] Neutrophils/100 leukocytes in Blood by Automated count 70.6 % 37. 0 - 80.0 [facility] Lymphocytes/100 leukocytes in Blood by Manual count 14.1 % 25.0 - 40.0 L [facility] Monocytes/100 leukocytes in Blood by Automated count 9.8 % 3.0 - 8.0 H [facility] Eosinophils/100 leukocytes in Blood by Automated count 1.5 % 0.0 - 7.0 [facility] Basophils/100 leukocytes in Blood by Automated count 0.7 % 0.0 - 2.5 [facility] %IG 3.3 % 0.0 - 0.0 H [facility] %NRBC 0.0 % 0.0 - 0.0 [facility] al Neutrophils [#/volume] in Blood by Automated count 8.04 10^3/uL 2.00 - 6.90 H [facility] Lymphocytes [#/volume] in Blood by Automated count 1.60 10^3/uL 0.60 - 3.40 [facility] Monocytes [#/volume] in Blood by Automated count 1.11 10^3/uL 0.00 - 0.90 H [facility] Eosinophils [#/volume] in Blood by Automated count 0.17 10^3/uL 0.00 - 0.70 [facility] Basophils [#/volume] in Blood by Automated count 0.08 10^3/uL 0.00 - 0.20 [facility] #IG 0.37 10^3/uL 0.00 - 0.10 H [facility] #NRBC 0.00 10^3/uL 0.00 - 0.00 [facility] ospital MANUAL DIFF SEE BELOW [facility] ital Segmented neutrophils/100 leukocytes in Blood by Manual count 78 % 37 - 80 [facility] %LYMPH 16 % 25 - 40 L [facility] %MONO 4 % 3 - 8 [facility] %EOS 2 % 0 - 7 [facility] al RBC MORPH SEE BELOW [facility] Anisocytosis [Presence] in Blood by Light microscopy 1+ FARRUKH L: NONE SEEN A [facility] { SICKLE CELL (NORMAL: NONE SEEN ) Platelet adequacy [Presence] in Blood by Light microscopy NORMAL NORMAL: NORMAL [facility] COMMENT: _0 08/09/20.1609.TAD. ID Date Data Source [id number] 08/09/2020 04:02:00 PM EST [facility] Name Value Range Interpretation Code Description Data Ro rce(s) Supporting Document(s) COMPREHENSIVE METABOLIC PANEL [facility] COMPREHENSIVE METABOLIC PANEL Sodium [Moles/volume] in Serum or Plasma 142 mEq/L 134 - 153 [facility] Potassium [Moles/volume] in Serum or Plasma 5.1 mEq/L 3.6 - 5.0 H [facility] Chloride [Moles/volume] in Serum or Plasma 101 mEq/L 98 - 107 [facility] Carbon dioxide, total [Moles/volume] in Serum or Plasma 32 MEQ/L 22 - 30 H [facility] Glucose [Mass/volume] in Serum or Plasma 126 MG/DL 65 - 110 H [facility] BUN 57 MG/DL 7 - 21 H [facility] Creatinine [Mass/volume] in Serum or Plasma 2.4 MG/DL 0.7 - 1.5 H [facility] BUN/CREAT 24 8 - 27 [facility] Protein [Mass/volume] in Serum or Plasma 6.7 G/DL 6.3 - 8.2 [facility] Albumin [Mass/volume] in Serum or Plasma 4.1 G/DL 3.9 - 5.0 [facility] Globulin [Mass/volume] in Serum by calculation 2.6 GM/DL 2.4 - 3.2 [facility] A/G RATIO 1.6 0.8 - 2.0 [facility] al Calcium [Mass/volume] in Serum or Plasma 9.6 MG/DL 8.4 - 10.2 [facility] Bilirubin.total [Mass/volume] in Serum or Plasma <0.7 MG/DL 0.2 - 1.3 [facility] Alkaline phosphatase [Enzymatic activity/volume] in Serum or Plasma 65 U/L 38 - 126 [facility] Aspartate aminotransferase [Enzymatic activity/volume] in Se rum or Plasma 8 U/L 5 - 40 [facility] Alanine aminotransferase [Enzymatic activity/volume] in Seru m or Plasma 7 U/L 7 - 56 [facility] Anion gap 3 in Serum or Plasma 9.0 mmol/L 8.0 - 16.0 [facility]GE 75 [facility] 21 mL/min [facility] AFR AMER GFR >60 [facility] Male GFR In terprentation 20-49 [...] >32 mL/min Normal ID Date Data Source [id number] 08/09/2020 04:02:00 PM EST [facility] Name Value Range Interpretation Code Description Data Ro rce(s) Supporting Document(s) Magnesium [Mass/volume] in Serum or Plasma 1.5 MG/DL 1.7 - 2.2 L [facility] ID Date Data Source [id number] 08/09/2020 04:02:00 PM [facility] Name Value Range Interpretation Code Description Data Ro rce(s) Supporting Document(s) Iron [Mass/volume] in Serum or Plasma 75 UG/DL 42 - 135 [facility] ID Date Data Source [id number] 08/09/2020 04:02:00 PM [facility] Name Value Range Interpretation Code Description Data Ro rce(s) Supporting Document(s) BNP 1329 PG/ML 0 - 125 H [facility] ID Date Data Source [id number] 08/09/2020 03:48:00 PM [facility] Name Value Range Interpretation Code Description Data Ro rce(s) Supporting Document(s) Fibrin D-dimer FEU [Mass/volume] in Platelet poor plasma 3.96 ug /mL 0.27 - 0.50 H [facility] ID Date Data Source [id number] 06/12/2020 10:46:00 [place] [address] PROGRESS NOTENAME: TR Whitley ROOM#: 119-1DATE OF : 1945 MR#: [id number] DATE: 05/28/20 OF SERVICE: 06/12/2020SUBJECTIVE:This patient has [...] rce(s) Supporting Document(s) ID Date Data Source [id number] 06/15/2020 02:17:00 [place] [address] DISCHARGE SUMMARYNAME: TR Whitley ROOM#: 119-1DATE OF : 1945 MR#: [id number] PHYS: Silver Peterson MD, PC DATE: 05/28/20 [...] ring because of regurgitation. [facility]. On examination, blood pressure was 130/80. [...] was 46, creatinine was 2.1. BNP was [address]. On 06/04, sodium was 143, potassiumwas 4.3, [...] IV was given for low hemoglobin. 1 [place] [address] DISCHARGE SUMMARYNAME: TR Whitley ROOM#: 119-1DATE OF : 1945 MR#: [id number] PHYS: Silver Peterson MD, PC DATE: 05/28/20 [...] mg daily6. Gabapentin 100 mg b.i.d.7. [place] was stopped.8. Protonix 40 mg daily9. Plavix was stopped.10. Venlafaxine 60 mg daily11. Ventolin inhaler p.r.n.12. Metformin was lsyjqoi06. Januvia was added at 50 mg daily [...] valve ring.5. History of atrial fibrillation 2 [place] [address] DISCHARGE SUMMARYNAME: TR Whitley ROOM#: 119-1DATE OF : 1945 MR#: [id number] PHYS: Silver Peterson MD, DATE: 05/28/20 DISCHARGED: [...] rce(s) Supporting Document(s) ID Date Data Source [id number] 06/13/2020 12:18:00 [place] [address] PHONE: [phone] FAX: [phone] Name .................. : TR Whitley Acct Number.................. : [id number] ROOM. ................. : 119-1 MR Number ................... : [id number] Stay type ............. : I/P Discharge Date......... ... : Admit Date ......... : 05/28/20 Admit Phys .................... : REY BEVERLY Date of ....... : 1945 Family Phys ................... : Takumii [place] Phone .................. : [phone] Age ................................ : 75 Film# .................. .:[id number] Sex ................................. : F Unsigned transcriptions are preliminary reports and do not represent a medical or legal document RENAL/URINARY BLADDER [id number] COMPLETE:06/11/20 12:38 BA [address]140 (PROCEDURE REASON :HYDRONEPHROSIS RENAL AND BLADDER ULTRASOUND: [...] rce(s) Supporting Document(s) ID Date Data Source [id number] 06/13/2020 07:09:00 AM EDT [facility] Name Value Range Interpretation Code Description Data Ro rce(s) Supporting Document(s) CBC W/AUTOMATED DIFF [facility] COMPLETE BLOOD COUNT Leukocytes [#/volume] in Blood by Automated count 6.4 10^3/uL 4.2 - 1 1.0 [facility] Erythrocytes [#/volume] in Blood by Automated count 2.92 10^6/uL 4. 20 - 5.40 L [facility] Hemoglobin [Mass/volume] in Blood 8.8 g/dL 12.0 - 16.0 L [facility] Hematocrit [Volume Fraction] of Blood by Automated count 29.9 % 3 7.0 - 47.0 L [facility] Erythrocyte mean corpuscular volume [Entitic volume] b y Automated count 102.4 fL 81.0 - 101 H [facility] Erythrocyte mean corpuscular hemoglobin [Entitic mass] by Automated count 30.1 pg 27.0 - 34.0 [facility] Erythrocyte mean corpuscular hemoglobin concentration [Mass/volume] by Automated count 29.4 g/dL 31.0 - 36.0 L [facility] Erythrocyte distribution width [Ratio] by Automated count 17.0 % 11.5 - 14.5 H [facility] Platelets [#/volume] in Blood by Automated count 227 10^3/uL 150 - 45 0 [facility] Platelet mean volume [Entitic volume] in Blood by Automated count 9.8 fL 7.4 - 10.4 [facility] Neutrophils/100 leukocytes in Blood by Automated count 64.1 % 37. 0 - 80.0 [facility] Lymphocytes/100 leukocytes in Blood by Manual count 11.7 % 25.0 - 40.0 L [facility] Monocytes/100 leukocytes in Blood by Automated count 14.5 % 3.0 - 8.0 H [facility] Eosinophils/100 leukocytes in Blood by Automated count 8.3 % 0.0 - 7.0 H [facility] Basophils/100 leukocytes in Blood by Automated count 0.5 % 0.0 - 2.5 [facility] %IG 0.9 % 0.0 - 0.0 H [facility] %NRBC 0.0 % 0.0 - 0.0 [facility] al Neutrophils [#/volume] in Blood by Automated count 4.07 10^3/uL 2.00 - 6.90 [facility] Lymphocytes [#/volume] in Blood by Automated count 0.74 10^3/uL 0.60 - 3.40 [facility] Monocytes [#/volume] in Blood by Automated count 0.92 10^3/uL 0.00 - 0.90 H [facility] Eosinophils [#/volume] in Blood by Automated count 0.53 10^3/uL 0.00 - 0.70 [facility] Basophils [#/volume] in Blood by Automated count 0.03 10^3/uL 0.00 - 0.20 [facility] #IG 0.06 10^3/uL 0.00 - 0.10 [facility] #NRBC 0.00 10^3/uL 0.00 - 0.00 [facility]spital MANUAL DIFF NOT INDICATED [facility] RBC MORPH NOT INDICATED [facility] ID Date Data Source [id number] 06/13/2020 07:06:00 AM EDT [facility] Name Value Range Interpretation Code Description Data Ro rce(s) Supporting Document(s) COMPREHENSIVE METABOLIC PANEL [facility] COMPREHENSIVE METABOLIC PANEL Sodium [Moles/volume] in Serum or Plasma 144 mEq/L 134 - 153 [facility] Potassium [Moles/volume] in Serum or Plasma 4.5 mEq/L 3.6 - 5.0 [facility] Chloride [Moles/volume] in Serum or Plasma 104 mEq/L 98 - 107 [facility] Carbon dioxide, total [Moles/volume] in Serum or Plasma 35 MEQ/L 22 - 30 H [facility] Glucose [Mass/volume] in Serum or Plasma 98 MG/DL 65 - 110 [facility] BUN 41 MG/DL 7 - 21 H [facility] Creatinine [Mass/volume] in Serum or Plasma 1.9 MG/DL 0.7 - 1.5 H [facility] BUN/CREAT 22 8 - 27 [facility] Protein [Mass/volume] in Serum or Plasma 5.3 G/DL 6.3 - 8.2 L [facility] Albumin [Mass/volume] in Serum or Plasma 3.3 G/DL 3.9 - 5.0 L [facility] Globulin [Mass/volume] in Serum by calculation 2.0 GM/DL 2.4 - 3.2 L [facility] A/G RATIO 1.7 0.8 - 2.0 [facility] Calcium [Mass/volume] in Serum or Plasma 8.7 MG/DL 8.4 - 10.2 [facility] Bilirubin.total [Mass/volume] in Serum or Plasma <0.7 MG/DL 0.2 - 1.3 [facility] Alkaline phosphatase [Enzymatic activity/volume] in Serum or Plasma 94 U/L 38 - 126 [facility] Aspartate aminotransferase [Enzymatic activity/volume] in Serum or Plasma 14 U/L 5 - 40 [facility] Alanine aminotransferase [Enzymatic activity/volume] in Seru m or Plasma 25 U/L 7 - 56 [facility] Anion gap 3 in Serum or Plasma 5.0 mmol/L 8.0 - 16.0 L [facility] AGE 75 yrs [facility] NON-AA GFR 28 mL/min [facility] AFR AMER GFR >60 [facility] Male GFR In terprentation 20-49 [...] >32 mL/min Normal ID Date Data Source [id number] 06/12/2020 01:24:00 PM EDT [facility] [address] [place] [address] PHONE: [phone] FAX: [phone] Name .................. : TR Whitley Acct Number.................. : [id number] ROOM. ................. : 119-1 MR Number ................... : [id number] Stay type ............. : I/P Discharge Date......... ... : Admit Date ......... : 05/10 Admit Phys .................... : REY BEVERLY Date of ....... : 1945 Family Phys ................... : Takumii [place] Phone .................. : [phone] Age ................................ : 75 Film# .................. .:[id number] Sex ................................. : F Unsigned transcriptions are preliminary reports and do not represent a medical or legal document CT THORAX W/O CONTRAST [id number] COMPLETE:06/09/20 09:55 SAIMA 96645 (REASON FOR CHEST: EFFUSION CT OF THE [...] By Robert Gilliland M.D. , 06/12/20 13:24, [facility] Page [address] [place] [address] PHONE: [phone] FAX: [phone] Name .................. : TR Whitley Acct Number.................. : [id number] ROOM. ................. : 119-1 MR Number ................... : [id number] Stay type ............. : I/P Discharge Date......... ... : Admit Date ......... : 05/28/20 Admit Phys .................... : REY PAUL Date of ....... : 1945 Family Phys ................... : CASPER Phone .................. : [phone] Age ................................ : 75 Film# .................. .:[id number] Sex ................................. : F Unsigned transcriptions are preliminary reports and do not represent a medical or legal document CT THORAX W/O CONTRAST 03643 COMPLETE:06/09/20 09:55 SAIMA 70308 (REASON FOR CHEST: EFFUSION Transcribe Initials: DZ , Transcribe Date: 06/10/20 03:30, Dictation Date: Copy for: 002 MSP Copy for: 710 MED REC Page 2 of 2 Name Value Range Interpretation Code Description Data Ro rce(s) Supporting Document(s) ID Date Data Source [id number] 06/11/2020 11:46:00 [place] [address] PROGRESS NOTENAME: TR Whitley ROOM#: 119-1DATE OF : 1945 MR#: [id number] DATE: 05/28/20 OF SERVICE: 06/11/20UBJECTIVE: This patient [...] rce(s) Supporting Document(s) ID Date Data Source [id number] 06/10/2020 11:17:00 [place] [address] PROGRESS NOTENAME: TR Whitley ROOM#: 119-1DATE OF : 1945 MR#: [id number] DATE: 05/28/20 OF SERVICE: 06/10/20UBJECTIVE: This patient's [...] rce(s) Supporting Document(s) ID Date Data Source [id number] 06/09/2020 01:00:00 [place] [address] PROGRESS NOTENAME: TR [facility] ROOM#: 119-1DATE OF : 1945 MR#: [id number] DATE: 05/28/20 OF SERVICE: 06/09/20UBJECTIVE: This patient's [...] rce(s) Supporting Document(s) ID Date Data Source [id number] 06/08/2020 10:48:00 [place] [address] PROGRESS NOTENAME: TR [facility] ROOM#: 119-1DATE OF : 1945 MR#: [id number] DATE: 05/28/20 OF SERVICE: 06/08/2020SUBJECTIVE:This 75-year-old white [...] rce(s) Supporting Document(s) ID Date Data Source [id number] 06/07/2020 10:47:00 [place] [address] PROGRESS NOTENAME: TR [facility] ROOM#: 119-1DATE OF : 1945 MR#: [id number] DATE: 05/28/20 OF SERVICE: 06/07/2020SUBJECTIVE:Patient feels better. [...] rce(s) Supporting Document(s) ID Date Data Source [id number] 06/06/2020 01:48:00 [place] [address] PROGRESS NOTENAME: TR [facility] ROOM#: 119-1DATE OF : 1945 MR#: [id number] DATE: 05/28/20 OF SERVICE: 06/06/2020SUBJECTIVE:This patient is [...] rce(s) Supporting Document(s) ID Date Data Source [id number] 06/05/2020 11:50:00 [place] [address] PROGRESS NOTENAME: TR [place] ROOM#: 119-1DATE OF : 1945 MR#: [id number] DATE: 05/28/20 OF SERVICE: 06/05/2020SUBJECTIVE:Patient complains of [...] rce(s) Supporting Document(s) ID Date Data Source [id number] 06/12/2020 06:55:00 AM EDT [facility] Name Value Range Interpretation Code Description Data [facility] rce(s) Supporting Document(s) CBC W/AUTOMATED DIFF [facility] COMPLETE BLOOD COUNT Leukocytes [#/volume] in Blood by Automated count 6.3 10^3/uL 4.2 - 1 1.0 [facility] Erythrocytes [#/volume] in Blood by Automated count 2.81 10^6/uL 4. 20 - 5.40 L [facility] Hemoglobin [Mass/volume] in Blood 8.6 g/dL 12.0 - 16.0 L [facility] Hematocrit [Volume Fraction] of Blood by Automated count 28.9 % 3 7.0 - 47.0 L [facility] Erythrocyte mean corpuscular volume [Entitic volume] b y Automated count 102.8 fL 81.0 - 101 H [facility] Erythrocyte mean corpuscular hemoglobin [Entitic mass] by Automated count 30.6 pg 27.0 - 34.0 [facility] Erythrocyte mean corpuscular hemoglobin concentration [Mass/volume] by Automated count 29.8 g/dL 31.0 - 36.0 L [facility] Erythrocyte distribution width [Ratio] by Automated count 17.0 % 11.5 - 14.5 H [facility] Platelets [#/volume] in Blood by Automated count 203 10^3/uL 150 - 45 0 [facility] Platelet mean volume [Entitic volume] in Blood by Automated count 10.2 fL 7.4 - 10.4 [facility] Neutrophils/100 leukocytes in Blood by Automated count 66.5 % 37. 0 - 80.0 [facility] Lymphocytes/100 leukocytes in Blood by Manual count 11.4 % 25.0 - 40.0 L [facility] Monocytes/100 leukocytes in Blood by Automated count 13.4 % 3.0 - 8.0 H [facility] Eosinophils/100 leukocytes in Blood by Automated count 7.6 % 0.0 - 7.0 H [facility] 0.3 %IG 0.8 % 0.0 - 0.0 [facility]NR[facility] 0.0 % 0.0 - 0.0 [facility] al Neutrophils [#/volume] in Blood by Automated count 4.18 10^3/uL 2.00 - 6.90 [facility] Lymphocytes [#/volume] in Blood by Automated count 0.72 10^3/uL 0.60 - 3.40 [facility] Monocytes [#/volume] in Blood by Automated count 0.84 10^3/uL 0.00 - 0.90 [facility] Eosinophils [#/volume] in Blood by Automated count 0.48 10^3/uL 0.00 - 0.70 [facility] Basophils [#/volume] in Blood by Automated count 0.02 10^3/uL 0.00 - 0.20 [facility] #IG 0.05 10^3/uL 0.00 - 0.10 [facility] #NRBC 0.00 10^3/uL 0.00 - 0.00 [facility] MANUAL DIFF SEE BELOW [facility] ital Segmented neutrophils/100 leukocytes in Blood by Manual count 73 % 37 - 80 [facility] BAND 0 % 0 - 5 [facility] al %LYMPH 13 % 25 - 40 L [facility] al %MONO 6 % 3 - 8 [facility] %EOS 8 % 0 - 7 H [facility] al 0 RBC MORPH NOT INDICATED [facility] ID Date Data Source [id number] 06/12/2020 06:54:00 AM EDT [facility] Name Value Range Interpretation Code Description Data Ro rce(s) Supporting Document(s) COMPREHENSIVE METABOLIC PANEL [facility] COMPREHENSIVE METABOLIC PANEL Sodium [Moles/volume] in Serum or Plasma 143 mEq/L 134 - 153 [facility] Potassium [Moles/volume] in Serum or Plasma 4.4 mEq/L 3.6 - 5.0 [facility] Chloride [Moles/volume] in Serum or Plasma 101 mEq/L 98 - 107 [facility] Carbon dioxide, total [Moles/volume] in Serum or Plasma 36 MEQ/L 22 - 30 H [facility] Glucose [Mass/volume] in Serum or Plasma 115 MG/DL 65 - 110 H [facility] BUN 44 MG/DL 7 - 21 H [facility] al Creatinine [Mass/volume] in Serum or Plasma 2.7 MG/DL 0.7 - 1.5 H [facility] BUN/CREAT 16 8 - 27 [facility] al Protein [Mass/volume] in Serum or Plasma 5.6 G/DL 6.3 - 8.2 L [facility] Albumin [Mass/volume] in Serum or Plasma 3.4 G/DL 3.9 - 5.0 L [facility] Globulin [Mass/volume] in Serum by calculation 2.2 GM/DL 2.4 - 3.2 L [facility] A/G RATIO 1.5 0.8 - 2.0 [facility] Calcium [Mass/volume] in Serum or Plasma 8.2 MG/DL 8.4 - 10.2 L [facility] Bilirubin.total [Mass/volume] in Serum or Plasma <0.7 MG/DL 0.2 - 1.3 [facility] Alkaline phosphatase [Enzymatic activity/volume] in Serum or Plasma 96 U/L 38 - 126 [facility] Aspartate aminotransferase [Enzymatic activity/volume] in Serum or Plasma 19 U/L 5 - 40 [facility] Alanine aminotransferase [Enzymatic activity/volume] in Seru m or Plasma 29 U/L 7 - 56 [facility] Anion gap 3 in Serum or Plasma 6.0 mmol/L 8.0 - 16.0 L [facility] AGE 75 yrs [facility] al NON-AA GFR 18 mL/min [facility] AFR AMER GFR >[address] [facility] Male GFR In terprentation 20-49 yrs [...] >32 mL/min Normal ID Date Data Source [id number] 06/04/2020 11:02:00 [place] [address] PROGRESS NOTENAME: TR [facility] ROOM#: 119-1DATE OF : 1945 MR#: [id number] DATE: 05/28/20 OF SERVICE: 06/04/20UBJECTIVE: She was [...] rce(s) Supporting Document(s) ID Date Data Source [id number] 06/03/2020 11:06:00 PM EDT [address] [address] PROGRESS NOTENAME: TR [facility] ROOM#: 119-1DATE OF : 1945 MR#: [id number] DATE: 05/28/20 OF SERVICE: 06/03/20UBJECTIVE: She was [...] e(s) Supporting Document(s) ID Date Data Source [id number] 06/11/2020 08:01:00 AM EDT [facility] Name Value Range Interpretation Code Description Data [facility](s) Supporting Document(s) CBC W/AUTOMATED DIFF [facility] COMPLETE BLOOD COUNT Leukocytes [#/volume] in Blood by Automated count 5.6 10^3/uL 4.2 - 1 1.0 [facility] Erythrocytes [#/volume] in Blood by Automated count 2.90 10^6/uL 4. 20 - 5.40 L [facility] Hemoglobin [Mass/volume] in Blood 8.9 g/dL 12.0 - 16.0 L [facility] Hematocrit [Volume Fraction] of Blood by Automated count 30.2 % 3 7.0 - 47.0 L [facility] Erythrocyte mean corpuscular volume [Entitic volume] b y Automated count 104.1 fL 81.0 - 101 H [facility] Erythrocyte mean corpuscular hemoglobin [Entitic mass] by Automated count 30.7 pg 27.0 - 34.0 [facility] Erythrocyte mean corpuscular hemoglobin concentration [Mass/volume] by Automated count 29.5 g/dL 31.0 - 36.0 L [facility] Erythrocyte distribution width [Ratio] by Automated count 17.3 % 11.5 - 14.5 H [facility] Platelets [#/volume] in Blood by Automated count 198 10^3/uL 150 - 45 0 [facility] Platelet mean volume [Entitic volume] in Blood by Automated count 10.3 fL 7.4 - 10.4 [facility] Neutrophils/100 leukocytes in Blood by Automated count 61.0 % 37. 0 - 80.0 [facility] Lymphocytes/100 leukocytes in Blood by Manual count 13.5 % 25.0 - 40.0 L [facility] Monocytes/100 leukocytes in Blood by Automated count 16.3 % 3.0 - 8.0 H [facility] Eosinophils/100 leukocytes in Blood by Automated count 7.6 % 0.0 - 7.0 H [facility] Basophils/100 leukocytes in Blood by Automated count 0.7 % 0.0 - 2.5 [facility] %IG 0.9 % 0.0 - 0.0 H [facility] al %NRBC 0.0 % 0.0 - 0.0 [facility] al Neutrophils [#/volume] in Blood by Automated count 3.43 10^3/uL 2.00 - 6.90 [facility] Lymphocytes [#/volume] in Blood by Automated count 0.76 10^3/uL 0.60 - 3.40 [facility] Monocytes [#/volume] in Blood by Automated count 0.92 10^3/uL 0.00 - 0.90 H [facility] Eosinophils [#/volume] in Blood by Automated count 0.43 10^3/uL 0.00 - 0.70 [facility] Basophils [#/volume] in Blood by Automated count 0.04 10^3/uL 0.00 - 0.20 [facility] #IG 0.05 10^3/uL 0.00 - 0.10 [facility] #NRBC 0.00 10^3/uL 0.00 - 0.00 [facility] ospital MANUAL DIFF NOT INDICATED [facility] RBC MORPH NOT INDICATED [facility] ID Date Data Source [id number] 06/11/2020 08:00:00 AM EDT [facility] Name Value Range Interpretation Code Description Data Ro rce(s) Supporting Document(s) COMPREHENSIVE METABOLIC PANEL [facility] COMPREHENSIVE METABOLIC PANEL Sodium [Moles/volume] in Serum or Plasma 143 mEq/L 134 - 153 [facility] Potassium [Moles/volume] in Serum or Plasma 5.6 mEq/L 3.6 - 5.0 H [facility] Chloride [Moles/volume] in Serum or Plasma 104 mEq/L 98 - 107 [facility] Carbon dioxide, total [Moles/volume] in Serum or Plasma 34 MEQ/L 22 - 30 H [facility] Glucose [Mass/volume] in Serum or Plasma 90 MG/DL 65 - 110 [facility] BUN 34 MG/DL 7 - 21 H [facility] al Creatinine [Mass/volume] in Serum or Plasma 1.9 MG/DL 0.7 - 1.5 H [facility] BUN/CREAT 18 8 - 27 [facility] al Protein [Mass/volume] in Serum or Plasma 5.5 G/DL 6.3 - 8.2 L [facility] Albumin [Mass/volume] in Serum or Plasma 3.4 G/DL 3.9 - 5.0 L [facility] Globulin [Mass/volume] in Serum by calculation 2.1 GM/DL 2.4 - 3.2 L [facility] A/G RATIO 1.6 0.8 - 2.0 [facility] Calcium [Mass/volume] in Serum or Plasma 8.1 MG/DL 8.4 - 10.2 L [facility] Bilirubin.total [Mass/volume] in Serum or Plasma <0.7 MG/DL 0.2 - 1.3 [facility] Alkaline phosphatase [Enzymatic activity/volume] in Serum or Plasma 76 U/L 38 - 126 [facility] Aspartate aminotransferase [Enzymatic activity/volume] in Serum or Plasma 12 U/L 5 - 40 [facility] Alanine aminotransferase [Enzymatic activity/volume] in Seru m or Plasma 11 U/L 7 - 56 [facility] Anion gap 3 in Serum or Plasma 5.0 mmol/L 8.0 - 16.0 L [facility] AGE 75 yrs [facility] NON-AA GFR 28 mL/min [facility] booker AFR AMER GFR >60 [facility] Male GFR In terprentation 20-49 [...] >32 mL/min Normal ID Date Data Source [id number] 06/11/2020 07:52:00 AM EDT [facility] Name Value Range Interpretation Code Description Data Ro rce(s) Supporting Document(s) Cobalamin (Vitamin B12) [Mass/volume] in Serum or Plasma 759 PG/ML 103 - 6235 [facility] ID Date Data Source [id number] 06/11/2020 07:40:00 AM EDT [facility] Name Value Range Interpretation Code Description Data Ro rce(s) Supporting Document(s) Magnesium [Mass/volume] in Serum or Plasma 1.9 MG/DL 1.7 - 2.2 [facility] Procedure Social History Code Duration Value Status Description Data Source(s ) Smoking 08/09/2021 12:00:00 AM EST Patient is a former smoker completed Patient is a former smoker [facility] ([facility]) Vital Signs ID Date Data Source UNK Name Value Range Interpretation Code Description Data Source(s) Systolic blood pressure 112 mm[Hg] 112 mm[Hg] M [facility] ([facility]) Diastolic blood pressure 60 mm[Hg] 60 mm[Hg] [facility] ([facility]) Heart rate 93 /min 93 /min [facility] ([facility]) Body height 63 [in_i] 63 [in_i] [facility] ([facility]) 5'3" Body weight 189.00 [lb_av] 189.00 [lb_av] [facility] ([facility]) Body mass index (BMI) [Ratio] 33.5 kg/m2 33.5 k g/m2 [facility] ([facility]) [place] body weight 115 [lb_av] 115 [lb_av] [facility] Body weight 85.730 kg 85.730 kg [facility] ([facility]) Body surface area Derived from formula 1.89 m2 1.89 m2 [facility] ([facility]) Body temperature 97.4 [degF] 97.4 [degF] [facility] ([facility]) Body height 63 [in_i] 63 [in_i] [facility] ([facility]) 5'3" Body weight 190.00 [lb_av] 190.00 [lb_av] [facility] ([facility]) pt in w/c Body mass index (BMI) [Ratio] 33.7 kg/m2 33.7 k g/m2 [facility] ([facility] Systolic blood pressure 122 mm[Hg] 122 mm[Hg] M [facility] ([facility]) Diastolic blood pressure 70 mm[Hg] 70 mm[Hg] [facility] ([facility]) Heart rate 97 /min 97 /min [facility] ([facility]) Oxygen saturation in Arterial blood by Pulse oximetry 933 % 933 % [facility] ([facility]) Body height 63 [in_i] 63 [in_i] [facility] ([facility]) 5'3" Body weight 186.00 [lb_av] 186.00 [lb_av] [facility] ([facility]) Body mass index (BMI) [Ratio] 32.9 kg/m2 32.9 k g/m2 [facility] ([facility]) [place] body weight 115 [lb_av] 115 [lb_av] [facility] ([facility]) Body weight 84.370 kg 84.370 kg [facility] ([facility]) Body surface area Derived from formula 1.87 m2 1.87 m2 [facility] ([facility]) Systolic blood pressure 180 mm[Hg] 180 mm[Hg] [facility] ([facility] Body temperature 90.0 [degF] 90.0 [degF] [facility] ([facility]) Heart rate 100 /min 100 /min [facility] Diastolic blood pressure 80 mm[Hg] 80 mm[Hg] [facility] ([facility]) Body weight 76.658 kg 76.658 kg [facility] Body mass index (BMI) [Ratio] 29.9 kg/m2 29.9 k g/m2 [facility] ([facility]) Body height 63 [in_i] 63 [in_i] [facility] ([facility] 5'3" Body weight 169.00 [lb_av] 169.00 [lb_av] [facility] ([facility] Body mass index (BMI) [Ratio] 29.0 kg/m2 29.0 k g/m2 [facility] ([facility], ) Diastolic blood pressure 60 mm[Hg] 60 mm[Hg] [facility] ([facility], ) Systolic blood pressure 100 mm[Hg] 100 mm[Hg] M [facility] ([facility], ) Heart rate 60 /min 60 /min [facility] ([facility]) Respiratory rate 14 /min 14 /min [facility] ( [facility]) Body height 63 [in_i] 63 [in_i] [facility] ([facility], ) 5'3" Body weight 164.00 [lb_av] 164.00 [lb_av] [facility] ([facility], ) [place] body weight 115 [lb_av] 115 [lb_av] [facility] ([facility]) Body temperature 97.4 [degF] 97.4 [degF] [facility] ([facility]) Body height 63 [in_i] 63 [in_i] [facility] ([facility]) 5'3" Systolic blood pressure 134 mm[Hg] 134 mm[Hg] [...] [lb_av] [facility] ([facility]) Body temperature 97.0 [degF] [...] Silver Peterson MD) ID Date Data Source [id number] 06/28/2020 09:35:48 AM EDT [facility] Name Value Range Interpretation Code Description Data Source(s) WEIGHT RECORDED 163.00 pounds 163.00 pounds [facility] Height 63 Inches 063 Inches [facility]
--- NOTE | 2021-08-10 13:43 | HPEPDOC ---
General Date of Admission 08/10/21 Date of Service: Aug 10, 2021 Chief Complaint The patient is a 76-year-old female admitted with a reason for visit of FALL. Source: Patient, RN/MD History of Present Illness 7 76-year-old female from home with past medical history of ESRD, COPD on home oxygen, atrial fibrillation status post watchman device placement as well as pacemaker, congestive heart failure, chronic anemia, iron deficiency presented to the emergency room after a mechanical fall at home this morning when she was ambulating with her walker to the bathroom. The wheel of the walker had gotten stuck at the bathroom door so she was trying to move backward a few steps to dislodge the wheel when she tripped over and fell on her left side with severe pain at her left hip. Her daughter who lives with her called the ambulance. In the ED she was found to have left femoral intertrochanteric fracture as well as a separate left greater trochanter fracture. She was also noted to have an old right pubic rami fracture. Patient complained of sharp aching pain 8/ 10 at the left hip with severe muscle spasm on minimal movement. Patient was admitted for left femoral neck fracture. Home Medications Scheduled Allopurinol (Allopurinol) 100 Mg Tablet, 100 MG PO DAILY, (Reported) Amiodarone HCl (Amiodarone HCl) 200 Mg Tablet, 200 MG PO DAILY, (Reported) Atorvastatin Calcium (Atorvastatin Calcium) 20 Mg Tablet, 20 MG PO DAILY, (Reported) Calcitriol (Calcitriol) 0.25 Mcg Capsule, 0.25 MCG PO DAILY, (Reported) Calcium Carbonate (Calcium) 600 Mg Tablet, 600 MG PO BID, (Reported) Cholecalciferol (Vitamin D3) (Vitamin D3) 1,000 Unit Tablet, 1,000 UNITS PO QPM, (Reported) TAKES AT 1600 Ferrous Sulfate (Ferrous Sulfate) 325 Mg Tablet, 325 MG PO BID, (Reported) Fluticasone/Vilanterol (Breo Ellipta 200-25 Mcg INH) 1 Each Blst.w.dev, 1 PUFF INH DAILY, (Reported) Folic Acid (Folic Acid) 1 Mg Tablet, 1 MG PO DAILY, (Reported) Furosemide (Furosemide) 40 Mg Tablet, 80 MG PO DAILY, (Reported) Glipizide (Glipizide ER) 2.5 Mg Tab.er.24, 2.5 MG PO DAILY, (Reported) Magnesium Oxide (Magnesium Oxide) 400 Mg Tablet, 400 MG PO QPM, (Reported) TAKES AT 1600 Pantoprazole Sodium (Pantoprazole Sodium) 40 Mg Tablet.dr, 40 MG PO DAILY, (Reported) Raloxifene HCl (Raloxifene HCl) 60 Mg Tablet, 60 MG PO DAILY, (Reported) Rosuvastatin Calcium (Rosuvastatin Calcium) 10 Mg Tablet, 10 MG PO DAILY, (Reported) Sitagliptin (Januvia) 50 Mg Tablet, 50 MG PO DAILY, (Reported) dilTIAZem HCl (Diltiazem 24Hr Cd) 120 Mg Cap.er.24h, 120 MG PO DAILY, (Reported) Scheduled PRN Albuterol Sulf (Albuterol Sulfate) 2.5 Mg/3 Ml Vial.neb, 2.5 MG INH QID PRN for SHORTNESS OF BREATH, (Reported) Albuterol Sulfate (Ventolin Hfa) 18 Gm Hfa.aer.ad, 2 PUFFS INH Q6H PRN for SOB/WHEEZING, (Reported) Allergies Coded Allergies: codeine (Verified Adverse Reaction, Intermediate, stabbing abd pain, 11/30/20) phenytoin (Verified Adverse Reaction, Intermediate, feels like being stabbed in abd, 11/30/20) gabapentin (Verified Adverse Reaction, Mild, VERTIGO, 11/30/20) oxycodone (Verified Adverse Reaction, Mild, SHAKINESS, 11/30/20) Past Medical History Medical History ESRD Secondary hyperparathyroidism Anemia of chronic disease COPD with chronic hypoxic and hypercarbic respiratory failure on 3 L oxygen at home History of COVID pneumonia in beginning of June 2021 along with rhinovirus infection. RSV infection and bacterial pneumonia in end of June 2021 Hypertension Type 2 Diabetes Mellitus Coronary artery disease Congestive heart failure Hyperuricemia GERD CATHRYN Paroxysmal atrial fibrillation status post watchman left atrial appendage closure implant 2019 Pacemaker Implant - 2014 Peripheral artery disease status post Femoral-Femoral bypass- 2002 Hyperlipidemia Iron deficiency Osteoporosis Family History Significant Family History: Diabetes, Hypertension Social History * Smoker: former Smoker (Reports that she quit in 2019) Alcohol: occationally Drugs: denies A-FIB/CHADSVASC A-FIB History Current/History of A-Fib/PAF?: Yes Current PO Anticoag Therapy: No Review of Systems Constitutional: Denies: Chills, Fever, Night Sweats Eyes: Denies: Pain, Vision change Skin: Denies: Rash, Lesions Pulmonary: Reports: Cough Cardiovascular: Denies: Chest Pain, Palpitations, Orthopnea, Paroxysmal Noc. Dyspnea, Lt Headedness Gastrointestinal: Denies: Nausea, Vomiting, Abdominal Pain, Diarrhea Genitourinary: Reports: Other Symptoms (Does not make much urine) Hematologic: Denies: Bruising, Bleeding Excessively Musculoskeletal: Reports: Back Pain, Joint Pain (Left hip pain), Spasms Neurological: Denies: Weakness, Numbness, Change in speech, Confusion Physical Examination General Exam: Positive: Alert, Cooperative, No Acute Distress Eye Exam: Positive: PERRLA, Conjunctiva & lids normal, EOMI; Negative: Sclera icteric ENT Exam: Positive: Atraumatic, Mucous membr. moist/pink, Pharynx Normal Neck Exam: Positive: Supple, JVD; Negative: thyromegaly Chest Exam: Positive: Rhonchi, Diminished, Other (Crackles at both the bases) Heart Exam: Positive: Rate Normal, Regular Rhythm, Normal S1, Normal S2; Negative: Murmurs, Rubs Telemetry: Positive: Other Telemetry: (Paced rhythm) Abdomen Exam: Positive: Normal bowel sounds, Soft; Negative: Tenderness Extremity Exam: Positive: Edema; Negative: Clubbing, Cyanosis Neuro Exam: Positive: Normal Speech, Normal Tone, Sensation Intact Psych Exam: Positive: Memory Intact, Oriented x 3 Vital Signs Vital Signs Date Time Temp Pulse Resp B/P (MAP) Pulse Ox O2 Delivery O2 Flow Rate FiO2 08/10/21 11:22 20 90 Nasal Cannula 3.0 08/10/21 08:40 97.0 97 126/82 (97) Laboratory Data Labs 24H Laboratory Tests 2 08/10/21 09:43: Immature Granulocyte % (Auto) , Neutrophils (%) (Auto) , Nucleated Red Blood Cells % (auto) 0.6H, Neutrophils 66, Band Neutrophils 3, Lymphocytes (Manual) 11L, Monocytes (Manual) 10H, Eosinophils (Manual) 1, Basophils (Manual) 1, Metamyelocytes 2H, Myelocytes 6H, Anisocytosis 2+, Macrocytosis 2+, Platelet Estimate NORMAL, Anion Gap 8, Glomerular Filtration Rate 13.9L, Calcium Level 8.5L, Total Bilirubin 0.3, Aspartate Amino Transf (AST/SGOT) 15, Alanine Aminotransferase (ALT/SGPT) 16, Alkaline Phosphatase 85, Total Protein 6.5, Albumin 2.3L, Albumin/Globulin Ratio 0.5L 08/10/21 11:34: Coronavirus (COVID-19)(PCR) NEGATIVE, Influenza Type A (RT-PCR) NEGATIVE, Influenza Type B (RT-PCR) NEGATIVE, Respiratory Syncytial Virus (PCR) NEGATIVE CBC/BMP Laboratory Tests 08/10/21 09:43 Assessment/Plan 76-year-old female from home with past medical history of ESRD, COPD on home oxygen, atrial fibrillation status post watchman device placement as well as pacemaker, congestive heart failure, chronic anemia, iron deficiency presented to the emergency room after a mechanical fall at home this morning when she was ambulating with her walker to the bathroom. The wheel of the walker had gotten stuck at the bathroom door so she was trying to move backward a few steps to dislodge the wheel when she tripped over and fell on her left side with severe pain at her left hip. Her daughter who lives with her called the ambulance. In the ED she was found to have left femoral intertrochanteric fracture as well as a separate left greater trochanter fracture. She was also noted to have an old right pubic rami fracture. Patient complained of sharp aching pain 8/ 10 at the left hip with severe muscle spasm on minimal movement. Patient was admitted for left femoral neck fracture. Left femoral neck fracture Orthopedic has been consulted Bed rest Pain control with Percocet and morphine. Medical optimization Patient will need to be dialyzed and get blood transfusion before patient can be cleared for surgery. Will need optimization of volume status before she can go for surgery. Will arrange for dialysis to be done today along with blood transfusion. Patient is at high cardiac risk for the proposed procedure We will keep the patient on telemetry pre and post surgery ESRD Nephrology has been consulted Patient will be scheduled for dialysis this afternoon Anemia of chronic disease and iron deficiency We will give 1 unit of blood transfusion during dialysis Continue ferrous sulfate when discharged COPD with chronic hypoxic and hypercarbic respiratory failure Does not seem to be in any exacerbation at this time We will continue Symbicort in place of Breo continue albuterol, oxygen supplementation 3 L Diabetes We will place the patient on lispro as per sliding scale Hold oral medications Hypertension We will continue with diltiazem Atrial fibrillation status post placement of watchman device and pacemaker Continue amiodarone and diltiazem Patient is now in paced rhythm GERD Continue PPI Gout Continue allopurinol Plan / VTE VTE Prophylaxis Ordered?: Yes Ritika Magana MD Aug 10, 2021 13:43
[2021-08-10] MEDS ORDERED: LIDOCAINE 2% 5ML JELLY UROJET TOP ONE (13:50)
[2021-08-10 15:30] VITALS: BP 132/60
[2021-08-10 15:45] VITALS: BP 130/70
[2021-08-10] MEDS: ALBUTEROL SULFATE 2.5 MG/0.5 ML INH NEB SOLN NEB SCH ×2 (16:00→23:51)
[2021-08-10 16:15] VITALS: BP 128/78
[2021-08-10 16:30] VITALS: BP 150/76
[2021-08-10] MEDS ORDERED: HumaLOG INSULIN (NovoLOG) PER UNIT SC SCH (17:30)
[2021-08-10] MEDS ORDERED: MORPHINE 2 MG/ML 1ML VIAL (J2270) IV PRN (20:15)
[2021-08-10] MEDS ORDERED: DOCUSATE SODIUM 100MG CAPSULE PO PRN (20:15)
[2021-08-10] MEDS: SYMBICORT 160/4.5MCG INHALER 6GM INH SCH (20:25)
[2021-08-10] MEDS: HEPARIN SOD (PORCINE) 5000UNITS/ML 1ML VIAL/SYRINGE SQ SCH (20:47)
[2021-08-10] MEDS: ATORVASTATIN 20 MG TAB PO SCH (20:47)
[2021-08-10] MEDS: allopurinoL 100 MG TAB PO SCH (20:47)
[2021-08-10] MEDS: PANTOPRAZOLE 40MG TAB (PROTONIX) PO SCH (20:47)
[2021-08-10] MEDS: AMIODARONE 200 MG TAB (PACERONE) PO SCH (20:47)
[2021-08-10 22:00] VITALS: BP 119/70
[2021-08-10] MEDS ORDERED: ONDANSETRON 4MG/2ML VIAL IV PRN (23:20)
[2021-08-10] MEDS ORDERED: MORPHINE 2 MG/ML 1ML VIAL (J2270) IV ONE (23:20)
[2021-08-10] MEDS: guaiFENesin ER 600 MG TAB PO PRN (23:33)
[2021-08-10 23:57] VITALS: BP 120/69
[2021-08-11] VITALS (18 sets, daily range): BP systolic 94–155; BP diastolic 53–72
[2021-08-11 00:18] LABS: ABG BASE EXCESS -7.1 (-2.0-2.0); ABG HCO3 22.3 MEQ/L (22.0-26.0); ABG PARTIAL PRESSURE O2 77.4 mmHg (75.0-100.0); ABG STANDARD HCO3 18.6 MEQ/L (22.0-26.0); ABG TOTAL CO2 24.3 MEQ/L (23.0-31.0)
[2021-08-11 00:34] LABS: ABG PARTIAL PRESSURE CO2 65.1 mmHg (35.0-45.0); ABG pH (ARTERIAL) 7.152 UNITS (7.350-7.450)
--- NOTE | 2021-08-11 01:05 | REPVR ---
PROCEDURE INFORMATION: Exam: CT Left Lower Extremity Without Contrast, Hip Exam date and time: 08/10/2021 11:06 PM Age: 76 years old Clinical indication: Left peritrochanteric fracture TECHNIQUE: Imaging protocol: CT of the Left lower extremity without contrast was performed. Exam focused on the hip. Radiation optimization: All CT scans at this facility use at least one of these dose optimization techniques: automated exposure control; mA and/or kV adjustment per patient size (includes targeted exams where dose is matched to clinical indication); or iterative reconstruction. COMPARISON: 1. CT- Left Hip WITHOUT CONTRAST 11/14/2016 9:36 AM 2. CR Hip,AP,LAT to include Pelvis 08/10/2021 10:10:44 AM FINDINGS: Tubes, catheters and devices: There is a Galvan catheter in appropriate position in the urinary bladder. Bones/joints: There is an acute, comminuted, impacted, displaced 3-part left intertrochanteric fracture in varus alignment, and the left lesser femoral trochanter forms a separate fracture fragment. An acute, complete fracture of the base of the left femoral neck is also noted. The left femoral head is seated in the left acetabulum. There is severe osteoarthritis of the left hip. There are old healed fractures of the right superior and inferior pubic rami. Soft tissues: There is soft tissue swelling, bruising, and hemorrhage adjacent to the left intertrochanteric and left femoral neck fractures. Vasculature: There are extensive atherosclerotic calcifications. A left femoral artery bypass graft was partially imaged. Bowel: There is severe sigmoid diverticulosis. The bowel was not fully imaged. Urinary bladder: There is gas in the urinary bladder. There is thickening of the wall of the partially distended urinary bladder. IMPRESSION: 1. Acute, comminuted, impacted, displaced 3 part left intertrochanteric fracture in varus alignment and a complete fracture of the base of the left femoral neck with surrounding soft tissue swelling, bruising, and hemorrhage. 2. Severe osteoarthritis of the left hip. 3. Thickening of the wall of the urinary bladder, which may be secondary to its partially distended state, bladder wall hypertrophy, or cystitis. Correlation with urinalysis is suggested. 4. Severe sigmoid diverticulosis. Electronically signed by: Rj Zhu On 08/11/2021 01:05:05 AM
--- NOTE | 2021-08-11 01:05 | REPVR ---
PROCEDURE INFORMATION: Exam: XR Chest Exam date and time: 08/11/2021 12:19 AM Age: 76 years old Clinical indication: Desaturation. TECHNIQUE: Imaging protocol: XR of the chest. Views: 1 view. COMPARISON: 1. CR Chest, 1 view 08/10/2021 10:[address] Chest without contrast 07/04/2021 10:57:05 PM FINDINGS: Tubes, catheters and devices: There is a dual lumen right internal jugular central venous line terminating in the junction of the superior vena cava and right atrium. A left subclavian pacemaker device is noted with leads projecting over the expected locations of the right atrium, right ventricle, and left ventricular epicardial vein. A mitral annuloplasty ring is noted. Lungs: There is a patchy airspace opacity in the left lung base. There is scarring in the right upper lobe. Pleural spaces: Unremarkable. No pleural effusion. No pneumothorax. Heart/Mediastinum: The heart is enlarged, which is stable compared to the prior chest x-ray on 08/10/2021. The mediastinal contours are unremarkable. Vasculature: There are atherosclerotic calcifications of the aorta. Bones/joints: There are old healed bilateral rib fractures, which are better visualized in the CT chest on 07/04/2021. IMPRESSION: 1. Patchy airspace opacity in the left lung base, which may represent pneumonia. 2. Cardiomegaly, which is stable compared to the prior chest x-ray on 08/10/2021. Electronically signed by: Rj Zhu On 08/11/2021 01:04:46 AM
[2021-08-11] MEDS: methylPREDNISolone 40MG 1ML VIAL IV SCH ×3 (01:06→23:49)
--- NOTE | 2021-08-11 01:23 | IPNPDOC ---
Text Note Date of Service The patient was seen on 08/11/21. NOTE Patient seen after acute desat 70% on 6 L nasal cannula (pt baseline is 3l NC). She was placed on nonrebreather and given a breathing treatment however required high flow nasal cannula 15L placement to be 87 percent. With repositioning and more time patient weaned to 10 L high flow 92%. She did have reported milky dale sputum expectorated. This is right after she arrived back on floor from CT for her hip. Stat chest x- ray and ABG ordered. Patient did have episode of nausea and emesis prior to the desat when down in CT; pt was able to sit up and vomit in emesis bag reportedly, and she was given zofran. Pt seen at bedside with washrag on forehead, ill appearance. She does appear exhausted but opens eyes and responds to verbal stimuli and ox3. She is not tachycardic or tachypneic. She is shallow in her inspiration, central body habitus noted and congestion w ith her cough. Lower lung saavedra diminished, coarse rales R side. 99.2F, hr 88, 120/69, rr 18 BG 131 Pt does not appear overtly hypervolemic. Of note, she produced 200ml UO, had HD today and received 1u PRBC for anticipated surgery. Pt had been requiring o2 increase 6l NC prior to the emesis episode and had been reportedly rhonchorous at shift change. Pt also does have CATHRYN, but does not use CPAP has she cannot tolerate. Will check procalcitonin and consider empiric coverage as well as continue scheduled breathing treatments, methods to break up congestion and consider steroid for COPD exacerbation given her increased o2 demand/ rhonchi prior to emesis. Caution with opiates to limit resp depression effects. Additionally, MOLST addressed with pt (on file) and she confirmed DNR/DNI- this was adjusted in computer. Update: ABG pH 7.152, pCO2 65.1 pO2 77.4, HCO3 22.3 CXR with LLL opacity, possibly pna. Will cover empirically. Pt possibly chronic co2 retainer, given her untreated CATHRYN and central body habitus. However, pCO2 65.1 is increased from the 50s she usually per chart review and she is not typically acidotic. Pt with known intolerance to CPAP. When asked if given antianxiety medication could she tolerate a mask (for consideration of Bipap); she responded "I don't know" and quickly falls asleep. She does not appear uncomfortable and currently at 8L HFNC 92%, however as she is a shallow inspiratory effort with CATHRYN and DNR/DNI - concern if she becomes further lethargic/ acidotic/ hypercapneic and do think it is appropriate to consider Bipap trial sooner than later. Pulmonology consulted for possible BiPAP. Spoke with Dr. Harrison who agreed with ICU transfer and BIPAP. He gave BIPAP settings to be placed and plan for next ABG to be done at 0600. Pulm will see pt in AM and appreciate further recommendations for optimization in order for consideration of proceeding with surgical intervention. Pt with several comorbidities and increased risk for decompensation. Nurse and Chimney Supervisor Brick made aware of ICU transfer. VS,Fishbone, I+O VS, Fishbone, I+O Laboratory Tests 08/10/21 09:43 Vital Signs Date Time Temp Pulse Resp B/P (MAP) Pulse Ox O2 Delivery O2 Flow Rate FiO2 08/11/21 00:04 92 High Flow Cannula 10.0 08/10/21 23:57 99.2 88 18 120/69 (86) I&O- Last 24 Hours up to 6 AM 08/11/21 06:00 Intake Total 400 ml Output Total 2500 ml Balance -2100 ml HU GREENE NP Aug 11, 2021 00:13
[2021-08-11] MEDS ORDERED: cefTRIAXone SOD 1 GM in D5W MINI-BAG PLUS 50 ML IV SCH (02:00)
[2021-08-11] MEDS ORDERED: LevoFLOXacin IV 250 MG in IV 1 EA IV ONE (03:00)
[2021-08-11] MEDS ORDERED: LevoFLOXacin IV 500 MG in IV 1 EA IV ONE (03:00)
--- NOTE | 2021-08-11 04:57 | CR ---
CONSULTATION DATE: 08/11/2021 REQUESTING PHYSICIAN: Ritika Magana M.D. REASON FOR CONSULTATION: Management of hemodialysis on this patient with end-stage renal disease and a hip fracture. HISTORY OF PRESENT ILLNESS: Ms. Zita Montanez is a 76-year-old female with a past medical history of end-stage renal disease on hemodialysis, chronic obstructive pulmonary disease (COPD) on home oxygen, atrial fibrillation, status post Watchman device placement and status post pacemaker, congestive heart failure and other comorbid conditions listed below. The patient came to the emergency room after a mechanical fall at home this morning when she was ambulating with her walker to the bathroom. She tripped and fell over on her left side with severe pain at her left hip. Her daughter who resides with her called emergency medical service (EMS) and the patient was brought to the emergency room where she was found to have a left femoral intertrochanteric fracture, as well as a separate left greater trochanteric fracture. She was also noted to have an old right pubic rami fracture. The patient was seen and examined by myself in the emergency room this afternoon. She complains of pain and mild unstable shortness of breath. PAST MEDICAL HISTORY: 1. End-stage renal disease on hemodialysis. 2. Chronic obstructive pulmonary disease (COPD) with chronic hypoxic and hypercapnic respiratory failure on 3 liters of oxygen at home. 3. History of COVID pneumonia in early June 2021. 4. History of respiratory syncytial virus (RSV) infection and bacterial pneumonia at the end of June 2020. 5. Hypertension. 6. Type 2 diabetes mellitus. 7. Coronary artery disease. 8. Anemia of chronic disease. 9. Secondary hyperparathyroidism. 10.Congestive heart failure. 11.Hyperuricemia. 12.Gastroesophageal reflux disease (GERD) 13.Obstructive sleep apnea. 14.Paroxysmal atrial fibrillation, status post Watchman implant. 15.Status post pacemaker. 16.Peripheral arterial disease. 17.Dyslipidemia. 18.Osteoporosis. SURGICAL HISTORY: Status post Watchman, status post pacemaker, status post femoral-femoral bypass. FAMILY HISTORY: Diabetes and hypertension. SOCIAL HISTORY: She is an ex-smoker, quite in 2019. Reports occasional alcohol and no drugs. HOME MEDICATIONS: Allopurinol 100 mg by mouth daily, amiodarone 200 mg by mouth daily, atorvastatin 20 mg by mouth daily, calcitriol 0.25 mcg by mouth daily, calcium carbonate 600 mg by mouth twice a day, vitamin D3,1000 units by mouth q p.m., ferrous sulfate 325 mg by mouth twice a day, folic acid 1 mg by mouth daily, furosemide 80 mg by mouth daily, glipizide 2.5 mg by mouth daily, magnesium oxide 400 mg by mouth q p.m, Protonix 40 mg by mouth daily, raloxifene 60 mg by mouth daily, rosuvastatin 10 mg by mouth daily, sitaglitin 50 mg by mouth daily, diltiazem 120 mg by mouth daily, as needed albuterol. ALLERGIES: CODEINE, GABAPENTIN, OXYCODONE, PHENYTOIN. REVIEW OF SYSTEMS: Constitutional: Denies fevers or chills. Eyes: Denies visual changes or hearing. ENT: Denies odynophagia or rhinorrhea or epistaxis. Cardiac: Has a history of congestive heart failure. Reports leg swelling. Reports no active chest pain. Respiratory: Reports chronic obstructive pulmonary disease (COPD), oxygen dependence and chronic dyspnea. Gastrointestinal: Denies nausea, vomiting, diarrhea. Genitourinary: Reports oliguria, no dysuria. Endocrine: Reports secondary hyperparathyroidism and diabetes. Hematological: Reports anemia. Denies anticoagulant use. Musculoskeletal: Reports left hip pain and history of osteoporosis. Neurologic: Denies seizure or syncope. Psychiatric: Reports depression. Skin: Denies any new rashes or ulcers. The remainder of the review of systems is negative or as per history of present illness. PHYSICAL EXAMINATION: Vital signs: Temperature 98.1, pulse 88, respiratory rate 18, blood pressure 132/60, saturating 94% on 4 liters nasal canula. General: The patient is seen lying in the stretcher in the emergency room and later receiving hemodialysis. She is awake, alert and oriented times 3 in mild distress secondary to pain. Extraocular muscles are intact. Tongue is moist. Neck is supple. Jugular veins are elevated. Heart sounds are regular. S1, S2. There is 1 to 2+ pitting edema in the legs. Lungs show diminished breath sounds at the bases with bibasilar crackles, but she is comfortable on nasal cannula. There is no accessory muscle use. No tachypnea. Abdomen is soft and nontender. Extremities: Her hip was not examined. Her distal legs have pitting edema. Dialysis access: She has a PermCath seen in use in the dialysis unit. Neurologic: She is oriented times 3. No focal deficit. LABORATORY DATA: White count 13.0, hemoglobin 8.7, platelets 214. Sodium 143, potassium 4.0, bicarbonate 30, BUN 35, albumin 2.3. Chest x-ray shows pulmonary venous engorgement. IMPATIENT MEDICATIONS: Albuterol q 8 hours, allopurinol 100 mg by mouth daily, amiodarone 200 mg by mouth daily, atorvastatin 20 mg by mouth daily, Symbicort 2 puffs inhaled twice a day, heparin 5000 units subcutaneous twice a day, morphine 4 mg IV times two doses, oxycodone as needed, Protonix 40 mg by mouth daily. PROBLEMS: 1. End-stage renal disease on hemodialysis. The patient is in mild moderate fluid overload. Her plans for the OR is not yet concrete, but will most likely go to the OR on August 11. Hence, I dialyzed the patient today with 2.5 liters of fluid removed and next dialysis is most likely going to be on Friday. Her electrolytes are acceptable. 2. Diastolic congestive heart failure. The patient is dependent on dialysis for volume control, 2.5 liters were removed today and there is mild hypovolemia on examination with peripheral edema and some pulmonary edema. Next dialysis will most likely be on Friday and we will reassess her volume status on a daily basis. 3. Anemia in the setting of chronic kidney disease and left hip fracture. Hemoglobin is 8.7. She will get one unit of blood with dialysis today in anticipation of OR tomorrow. 4. Left femoral neck fracture. Pending orthopedic evaluation. Pain management as per primary team. The patient was dialyzed today and had blood transfused to help optimize her for the OR. 5. Chronic obstructive pulmonary disease (COPD) with chronic hypoxic and hypercapnic respiratory failure. The patient is requiring her baseline amount of oxygen. No signs of exacerbation. She continues on her usual home oxygen and inhalers. 6. Atrial fibrillation. She continues on amiodarone. At home, she also takes diltiazem, but this appears to be held at present in view of controlled blood pressures.
[2021-08-11] MEDS: HumaLOG INSULIN (NovoLOG) PER UNIT SC SCH ×5 (05:48→23:48)
[2021-08-11 06:06] LABS: ABG BASE EXCESS -3.6 (-2.0-2.0); ABG HCO3 25.9 MEQ/L (22.0-26.0); ABG O2 SATURATION 98.3 % (95.0-99.0); ABG PARTIAL PRESSURE O2 126.4 mmHg (75.0-100.0); ABG STANDARD HCO3 21.5 MEQ/L (22.0-26.0)
[2021-08-11 06:07] LABS: ABG PARTIAL PRESSURE CO2 70.9 mmHg (35.0-45.0)
[2021-08-11 06:16] LABS: BASO # 0.1 10^3/uL (0.0-0.2); BASO % 0.4 % (0.0-1.0); HEMOGLOBIN 10.5 g/dl (12.0-15.5); LYMPH # 1.1 10^3/uL (1.5-5.0); LYMPH % 4.8 % (24.0-44.0); MEAN CORPUSCULAR HEMOGLOBIN 31.5 pg (27.0-33.0); MEAN CORPUSCULAR HGB CONC 29.2 g/dl (32.0-36.5); MEAN CORPUSCULAR VOLUME 108.1 fl (80.0-96.0); MONO # 0.5 10^3/uL (0.0-0.8); NEUTROPHILS # 20.5 10^3/uL (1.5-8.5); NEUTROPHILS % 88.5 % (36.0-66.0); PLATELET COUNT, AUTOMATED 193 10^3/uL (150-450); RED BLOOD COUNT 3.33 10^6/uL (4.00-5.40); WHITE BLOOD COUNT 23.2 10^3/uL (4.0-10.0)
[2021-08-11 06:43] LABS: CALCIUM LEVEL 9.5 MG/DL (8.8-10.2); CREATININE FOR GFR 2.89 MG/DL (0.55-1.30); POTASSIUM SERUM 4.9 MEQ/L (3.5-5.1)
--- NOTE | 2021-08-11 07:28 | ECGEPIP ---
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
[2021-08-11] MEDS: IPRATROPIUM 0.5MG/ALBUTEROL 2.5MG INH SOL UD 3ML (DUONEB) NEB SCH ×2 (08:04→20:00)
[2021-08-11] MEDS ORDERED: IBUPROFEN 400MG TAB PO PRN (09:00)
[2021-08-11] MEDS: HEPARIN SOD (PORCINE) 5000UNITS/ML 1ML VIAL/SYRINGE SQ SCH ×2 (09:00→21:01)
[2021-08-11 09:36] LABS: ABG BASE EXCESS -4.5 (-2.0-2.0); ABG HCO3 24.3 MEQ/L (22.0-26.0); ABG O2 SATURATION 92.9 % (95.0-99.0); ABG STANDARD HCO3 20.7 MEQ/L (22.0-26.0); ABG TOTAL CO2 26.2 MEQ/L (23.0-31.0)
[2021-08-11 09:39] LABS: ABG PARTIAL PRESSURE CO2 62.6 mmHg (35.0-45.0); ABG pH (ARTERIAL) 7.207 UNITS (7.350-7.450)
--- NOTE | 2021-08-11 10:13 | CR.PDOC ---
General Date of Consultation: Aug 11, 2021 Consultation REASON FOR CRITICAL CARE CONSULTATION/CHIEF COMPLAINT: Respiratory failure HISTORY OF PRESENT ILLNESS: 76-year-old female with history of end-stage renal disease, COPD, A. fib status post watchman device as well as pacemaker, CHF, chronic anemia who initially presented to the hospital status post mechanical fall at home. It occurred while she was ambulating to the bathroom. When she arrived to the ED she was hemodynamically stable and imaging revealed a left femoral intertrochanteric fracture. She was complaining of severe left hip pain. She was admitted to [facility] and orthopedic consult was pending. After coming back from CT scan it was noted that she was lethargic and hypoxic and her ABG showed that she was acutely hypercapnic. To note she did receive multiple doses of morphine and Percocet. She received hemodialysis yesterday and 2500 cc was removed. She s till does make urine and she had a urine output last 24 hours of 200 cc. ICU was called for her desaturation and acute hypercapnic respiratory failure requiring NIV. She was transferred to the ICU and she has been on AVAPS since early this morning. I have seen her at bedside and she is awake and alert and following commands. She is not in any distress. She is currently on AVAPS and her repeat ABG shows improvement in her hypercapnia. PAST MEDICAL/SURGICAL HISTORY: COPD on home oxygen, chronic hypercapnic respiratory failure, atrial fibrillation, end-stage renal disease, CHF, gout, diabetes, CAD, PAD, hypertension, pacemaker placement FAMILY HISTORY: No significant cardiopulmonary disease history SOCIAL HISTORY: Former smoker reports that she quit in the year 2019. Occasional alcohol use and denies illicit drug use. ALLERGIES: Please see below. HOME MEDICATIONS: Please see below. REVIEW OF SYSTEMS: CONSTITUTIONAL: Denies fever, chills, night sweats, weight loss EYES: No blurring of vision or redness. ENT: No sore throat. No epistaxis. No tinnitus. CARDIOVASCULAR: No chest pain. No palpitations. RESPIRATORY: No dyspnea, no wheeze, no cough, no hemoptysis GASTROINTESTINAL: No nausea, vomiting, or diarrhea. GENITOURINARY: No frequency, urgency, nocturia. No hematuria or dysuria. MUSCULOSKELETAL: She endorses pain on the left hip and leg INTEGUMENTARY: No rash or swelling NEUROLOGIC: No headache. No numbness or tingling of the extremities. No weakness. PSYCHIATRIC: No confusion or mood changes. ENDOCRINE: No fatigue, no goiter. HEMATOLOGICAL: No bleeding. No petechiae. No bruising. PHYSICAL EXAMINATION: VITAL SIGNS: Please see below. GENERAL APPEARANCE: Alert and awake. Not in respiratory distress on AVAPS HEENT: no thyromegaly, trachea midline, PERRLA. normal mucous membranes RESPIRATORY: CTA B/L, good air entry. Not tachypneic CARDIOVASCULAR: +s1 s2, no murmurs. ABDOMEN: nontender, not distended, +BS EXTREMITIES: no edema or erythema. palpable distal pulses SKIN: no rash, no purpura NEUROLOGICAL: no sensory or motor deficits, orientedx3. LABS/IMAGING: Chest x-ray from the photocopying machine operator yesterday possible left base opacity. Dialysis catheter right IJ in place. Pacemaker in place. IMPRESSION: The most critical problems requiring my immediate presence at bedside are: 1. Acute on chronic hypercapnic respiratory failure likely secondary to respiratory depression from narcotics 2. Left femoral neck fracture status post mechanical fall 3. History of COPD on home oxygen not in exacerbation 4. History of A. fib status post watchman procedure and pacemaker currently rate controlled 5. End-stage renal disease on hemodialysis PLAN: CONTACT LENS ASSISTANT: Avoid narcotics for pain control. Would use Tylenol and NSAIDs for acute pain for now.. PULM: Patient has improvement in her blood gas. Placed on nasal cannula with goal SPO2 89 to 92%. Would DC Solu-Medrol as patient is not in exacerbation. Continue with bronchodilators [id number] and as needed. Incentive spirometer. From pulmonary standpoint she is high risk for postoperative pulmonary complications including respiratory failure, pneumonia, PE, atelectasis. Given this is an emergency surgery need to weigh the benefit and risks. There is no contraindication from pulmonary standpoint to have the surgery. Neuraxial anesthesia is possible. Given she has end-stage renal disease would avoid narcotics with active metabolites that can contribute to respiratory depression. Will need prolonged postop monitoring and if able, extubate to noninvasive ventilation. Incentive spirometer and early immobilization as tolerated. DVT prophylaxis. CARDIO: Maintain MAPs 60-65. GI: N.p.o. RENAL: monitor lytes. Hemodialysis per nephrology ID: DC antibiotics as I suspect the leukocytosis is reactive from her left hip fracture. I do not suspect that she is having any acute pneumonia at this time. ENDO: Monitor FS per routine. Goal range 140-180. HEME: DVT ppx DISPOSITION: We will transfer back to ICU after surgery. A total of 68 minutes of critical care time was spent on patient care, not including procedures Vital Signs/I&O Vital Signs Date Time Temp Pulse Resp B/P (MAP) Pulse Ox O2 Delivery O2 Flow Rate FiO2 08/11/21 08:08 18 08/11/21 08:00 50 08/11/21 08:00 109 08/11/21 06:00 112/62 (79) 96 NIPPV (BIPAP/CPAP) 08/11/21 03:00 98.0 08/11/21 01:16 8.0 I&O- Last 24 Hours up to 6 AM 08/11/21 06:00 Intake Total 790 ml Output Total 2700 ml Balance -1910 ml Laboratory Data Labs 24H Laboratory Tests 2 08/10/21 11:34: Coronavirus (COVID-19)(PCR) NEGATIVE, Influenza Type A (RT-PCR) NEGATIVE, Influenza Type B (RT-PCR) NEGATIVE, Respiratory Syncytial Virus (PCR) NEGATIVE 08/10/21 19:02: Bedside Glucose (Misc Panel) 90 08/10/21 20:48: Bedside Glucose (Misc Panel) 105 08/10/21 23:59: Bedside Glucose (Misc Panel) 131H 08/11/21 00:03: Blood Gas Bicarbonate Standard 18.6L, Arterial Blood pH 7.152*L, Arterial Blood Partial Pressure CO2 65.1*H, Arterial Blood Partial Pressure O2 77.4, Arterial Blood Total CO2 24.3, Arterial Blood HCO3 22.3, Arterial Blood Base Excess -7.1L , Arterial Blood Oxygen Saturation 93.0L 08/11/21 05:39: Bedside Glucose (Misc Panel) 174H 08/11/21 05:50: Immature Granulocyte % (Auto) 4.3H, Neutrophils (%) (Auto) 88.5H, Lymphocytes (%) (Auto) 4.8L, Monocytes (%) (Auto) 2.0, Eosinophils (%) (Auto) 0.0, Basophils (%) (Auto) 0.4, Neutrophils # (Auto) 20.5H, Lymphocytes # (Auto) 1.1L, Monocytes # (Auto) 0.5, Eosinophils # (Auto) 0.0, Basophils # (Auto) 0.1, Nucleated Red Blood Cells % (auto) 0.4H, Anion Gap 6L, Glomerular Filtration Rate 17.0L, Calcium Level 9.5, Procalcitonin 0.40 08/11/21 05:55: Blood Gas Bicarbonate Standard 21.5L, Arterial Blood pH 7.180*L, Arterial Blood Partial Pressure CO2 70.9*H, Arterial Blood Partial Pressure O2 126.4H, Arterial Blood Total CO2 28.0, Arterial Blood HCO3 25.9, Arterial Blood Base Excess - 3.6L, Arterial Blood Oxygen Saturation 98.3 08/11/21 09:20: Blood Gas Bicarbonate Standard 20.7L, Arterial Blood pH 7.207*L, Arterial Blood Partial Pressure CO2 62.6*H, Arterial Blood Partial Pressure O2 68.0L, Arterial Blood Total CO2 26.2, Arterial Blood HCO3 24.3, Arterial Blood Base Excess - 4.5L, Arterial Blood Oxygen Saturation 92.9L CBC/BMP Laboratory Tests 08/11/21 05:50 Microbiology Microbiology 08/11/21 Gram Stain - Final, Resulted 08/11/21 Sputum Culture, Resulted Pending Allergies Coded Allergies: codeine (Verified Adverse Reaction, Intermediate, stabbing abd pain, 11/30/20) phenytoin (Verified Adverse Reaction, Intermediate, feels like being stabbed in abd, 11/30/20) gabapentin (Verified Adverse Reaction, Mild, VERTIGO, 11/30/20) oxycodone (Verified Adverse Reaction, Mild, SHAKINESS, 11/30/20) Home Medications Scheduled Allopurinol (Allopurinol) 100 Mg Tablet, 100 MG PO DAILY, (Reported) Amiodarone HCl (Amiodarone HCl) 200 Mg Tablet, 200 MG PO DAILY, (Reported) Atorvastatin Calcium (Atorvastatin Calcium) 20 Mg Tablet, 20 MG PO DAILY, (Reported) Calcitriol (Calcitriol) 0.25 Mcg Capsule, 0.25 MCG PO DAILY, (Reported) Calcium Carbonate (Calcium) 600 Mg Tablet, 600 MG PO BID, (Reported) Cholecalciferol (Vitamin D3) (Vitamin D3) 1,000 Unit Tablet, 1,000 UNITS PO QPM, (Reported) TAKES AT 1600 Ferrous Sulfate (Ferrous Sulfate) 325 Mg Tablet, 325 MG PO BID, (Reported) Fluticasone/Vilanterol (Breo Ellipta 200-25 Mcg INH) 1 Each Blst.w.dev, 1 PUFF INH DAILY, (Reported) Folic Acid (Folic Acid) 1 Mg Tablet, 1 MG PO DAILY, (Reported) Furosemide (Furosemide) 40 Mg Tablet, 80 MG PO DAILY, (Reported) Glipizide (Glipizide ER) 2.5 Mg Tab.er.24, 2.5 MG PO DAILY, (Reported) Magnesium Oxide (Magnesium Oxide) 400 Mg Tablet, 400 MG PO QPM, (Reported) TAKES AT 1600 Pantoprazole Sodium (Pantoprazole Sodium) 40 Mg Tablet.dr, 40 MG PO DAILY, (R eported) Raloxifene HCl (Raloxifene HCl) 60 Mg Tablet, 60 MG PO DAILY, (Reported) Rosuvastatin Calcium (Rosuvastatin Calcium) 10 Mg Tablet, 10 MG PO DAILY, (Reported) Sitagliptin (Januvia) 50 Mg Tablet, 50 MG PO DAILY, (Reported) dilTIAZem HCl (Diltiazem 24Hr Cd) 120 Mg Cap.er.24h, 120 MG PO DAILY, (Reported) Scheduled PRN Albuterol Sulf (Albuterol Sulfate) 2.5 Mg/3 Ml Vial.neb, 2.5 MG INH QID PRN for SHORTNESS OF BREATH, (Reported) Albuterol Sulfate (Ventolin Hfa) 18 Gm Hfa.aer.ad, 2 PUFFS INH Q6H PRN for SOB/WHEEZING, (Reported) MELQUIADES JOSÉ MD Aug 11, 2021 10:13
[2021-08-11] MEDS ORDERED: LIDOCAINE 2% 100MG/5ML SDV (FOR ANES.) As Ordered ONE ×2 (10:16→13:48)
[2021-08-11] MEDS ORDERED: propofoL 200 MG/20 ML VIAL As Ordered ONE ×2 (10:16→13:48)
[2021-08-11] MEDS ORDERED: ROCURONIUM BROMIDE 50 MG/5 ML VIAL As Ordered ONE ×2 (10:16→13:48)
[2021-08-11] MEDS ORDERED: fentaNYL 250 MCG/5 ML INJECTION (J3010) As Ordered ONE (10:17)
[2021-08-11] MEDS ORDERED: KETAMINE HCL 200 MG/20 ML VIAL As Ordered ONE (10:38)
[2021-08-11] MEDS ORDERED: MIDAZOLAM INJ 2MG/2ML VIAL (J2250 PER 1MG) As Ordered ONE (10:39)
[2021-08-11] MEDS ORDERED: ceFAZolin 2 GM/D5W 50 ML IV BAG (J0690 PER 500MG) As Ordered ONE (10:43)
[2021-08-11] MEDS ORDERED: TRANEXAMIC ACID 100 MG/ML 10ML VIAL As Ordered ONE (10:43)
[2021-08-11] MEDS: SYMBICORT 160/4.5MCG INHALER 6GM INH SCH ×2 (11:22→20:04)
[2021-08-11] MEDS ORDERED: BUPIVACAINE LIPOSOME/PF 1.3% 20ML VIAL (13.3MG/ML)(EXPAREL)(C9290 PER1MG) As Ordered ONE (13:50)
--- NOTE | 2021-08-11 14:10 | REP ---
INDICATION: LEFT IM NAIL. COMPARISON: Comparison CT study August 10, 2021. TECHNIQUE: Fifteen views. 260.5 seconds of fluoroscopy time is reported. FINDINGS: A sequence of 15 last image hold fluoroscopically obtained spot radiographs of the left hip and femur document open reduction internal fixation for subtrochanteric fracture. IMPRESSION: Procedural imaging. <Electronically signed by Mikie Rose > 08/11/21 [id number]
[2021-08-11] MEDS ORDERED: ONDANSETRON 4MG/2ML VIAL As Ordered ONE (14:15)
[2021-08-11] MEDS ORDERED: ONDANSETRON 4MG/2ML VIAL IV PRN (14:45)
[2021-08-11] MEDS ORDERED: LR 1,000 ML IV SCH (14:45)
[2021-08-11] MEDS ORDERED: fentaNYL 100 MCG/2 ML INJECTION (J3010) IV PRN (14:45)
[2021-08-11] MEDS: ATORVASTATIN 20 MG TAB PO SCH (15:42)
[2021-08-11] MEDS: AMIODARONE 200 MG TAB (PACERONE) PO SCH (15:42)
[2021-08-11] MEDS: PANTOPRAZOLE 40MG TAB (PROTONIX) PO SCH (15:42)
[2021-08-11] MEDS: allopurinoL 100 MG TAB PO SCH (15:43)
--- NOTE | 2021-08-11 16:01 | IPN ---
NEPHROLOGY PROGRESS NOTE DATE: 08/11/2021 SUBJECTIVE: Mrs. Montanez is seen this morning on her bedside in the intensive care unit. She was dialyzed yesterday and tolerated her dialysis treatment very well. After dialysis, she developed worsening mentation and worsening respiratory status. Apparently, she had developed CO2 retention due to pain medications. She was treated with bilevel positive airway pressure (BiPAP) and this morning now she is off BiPAP. loss prevention agent today, her blood gas showed a pH of 7.18 with pCO2 70.9 and pO2 126. A repeat blood gas at 9:20 a.m. showed a pH of 7.20 with pCO2 down to 62.6 and pO2 68. Her chemistry is appropriate this morning, with BUN 20 and creatinine 2.89, sodium 134 and potassium 4.9. Chest x-ray done yesterday showed only patchy air space opacity in the left lung base and cardiomegaly, but no evidence of any significant hypervolemia. She is scheduled for her surgery for left hip fracture today. Patient is feeling better and has no fever or chills. PHYSICAL EXAMINATION: VITAL SIGNS: At the time of my visit, temperature 98.4 degrees Fahrenheit, heart rate about 110 per minute, respiratory rate 18 per minute, blood pressure 119/58 mmHg, oxygen saturation 91%. HEAD: Atraumatic. Oral mucosa is dry. There is no thrush or ulcers. NECK: Supple and jugular venous distention (JVD) only mildly elevated. HEART SOUNDS: Tachycardic and irregular. LUNGS: Diminished breath sounds at bases. ABDOMEN: Soft and nontender. Bowel sounds are normal. EXTREMITIES: Without any cyanosis or clubbing. NEUROLOGIC: She is awake and grossly intact. LABORATORY DATA: Today's labs show sodium 134, potassium 4.9, BUN 20, creatinine 2.89, calcium 9.5, glucose 175. Procalcitonin is 0.40 Her most recent blood gas showed a pH of 7.20, pCO2 of 62.6 and pO2 of 68. WBC count is up to 23.2, hemoglobin 10.5, hematocrit 36, platelets 193. PROBLEMS: 1. End-stage renal disease. Patient was dialyzed yesterday and she tolerated her dialysis treatment well. Electrolytes are within acceptable range. No urgent need for dialysis today. 2. Congestive heart failure and hypoxemia. She has chronic hypoxemia with chronic lung disease. Clinically, her volume status seems very well compensated and I do not feel that another dialysis is needed today. 3. Respiratory insufficiency. Most likely, this was related to pain medications causing CO2 retention and altered mentation. She does have improved status now after being on bilevel positive airway pressure (BiPAP). She will need to be monitored closely postoperatively. 4. Anemia. Her anemia is stable after transfusion of 1 unit of packed red blood cells (PRBCs). CBC shall be repeated again tomorrow. 5. Left hip fracture. Patient is scheduled for operating room (OR) today.
--- NOTE | 2021-08-11 16:14 | IPNPDOC ---
Subjective Date Seen The patient was seen on 08/11/21. Subjective Chief Complaint/HPI Alert oriented thsi am, no acute respiratory distress. Tolerating nasal canula. Went to OR this am. Post OR doing ok on nasal canula. Objective Physical Examination General Exam: Positive: Alert, Cooperative, No Acute Distress Eye Exam: Positive: PERRLA, Conjunctiva & lids normal, EOMI; Negative: Sclera icteric ENT Exam: Positive: Atraumatic, Mucous membr. moist/pink, Pharynx Normal Neck Exam: Positive: Supple, JVD; Negative: thyromegaly Chest Exam: Positive: Diminished, Other (Crackles at both the bases) Heart Exam: Positive: Rate Normal, Regular Rhythm, Normal S1, Normal S2; Negative: Murmurs, Rubs Telemetry: Positive: Other Telemetry: (Paced rhythm) Abdomen Exam: Positive: Normal bowel sounds, Soft; Negative: Tenderness Extremity Exam: Positive: Edema; Negative: Clubbing, Cyanosis Neuro Exam: Positive: Normal Speech, Normal Tone, Sensation Intact Psych Exam: Positive: Memory Intact, Oriented x 3 Assessment /Plan Assessment 76-year-old female from home with past medical history of ESRD, COPD on home oxygen, atrial fibrillation status post watchman device placement as well as pacemaker, congestive heart failure, chronic anemia, iron deficiency presented to the emergency room after a mechanical fall at home this morning when she was ambulating with her walker to the bathroom. The wheel of the walker had gotten stuck at the bathroom door so she was trying to move backward a few steps to dislodge the wheel when she tripped over and fell on her left side with severe pain at her left hip. Her daughter who lives with her called the ambulance. In the ED she was found to have left femoral intertrochanteric fracture as well as a separate left greater trochanter fracture. She was also noted to have an old right pubic rami fracture. Patient was admitted for left femoral neck fracture. Overnight on 08/10/21 patient was noted to be lethargic and ABG showed acute on chronic respiratory failure with hypercarbia and hypoxia thought to be related to narcotics. She also had an episode of vomiting went she was lethargic so thoughts about as aspiration pneumonia was also entertained. She was moved to ICU and placed on BIPAP. Acute on chronic respiratory failure with hypercarbia likely due to narcotics given for her pain from the hip fracture. Patient was on BIPAP overnight, then put on nasal canula this am which she tolerated. this am went to OR will Check ABG in the evening to see if she needs to be again on BIPAP or not. Left femoral neck fracture s/p Intramedullary rodding of femur on 08/11/21 pain control with tylenol and ibuprofen will avoid narcotics. Aspiration pneumonia this is unlikely procal at 0.4, CXR no change from before will stop ceftriaxone Leucocytosis reactive due to steroids, acute fracture. stop antibiotics ESRD HD as per nephrology Anemia of chronic disease and iron deficiency received 1 unit of PRBC Continue ferrous sulfate when discharged COPD with acute on chronic hypoxic and hypercarbic respiratory failure We will continue Symbicort in place of Breo continue albuterol She has also been started on methyl pred. Diabetes We will place the patient on lispro as per sliding scale Hold oral medications Hypertension We will continue with diltiazem Atrial fibrillation status post placement of watchman device and pacemaker Continue amiodarone and diltiazem Patient is now in paced rhythm GERD Continue PPI Gout Continue allopurinol Plan/VTE VTE Prophylaxis Ordered?: Yes VS, I&O, 24H, Fishbone Vital Signs/I&O Vital Signs Date Time Temp Pulse Resp B/P (MAP) Pulse Ox O2 Delivery O2 Flow Rate FiO2 08/11/21 15:45 98.6 117 18 106/58 (74) 96 Nasal Cannula 6.0 08/11/21 08:00 40 I&O- Last 24 Hours up to 6 AM 08/11/21 07:00 Intake Total 790 ml Output Total 2720 ml Balance -1930 ml Laboratory Data 24H LABS Laboratory Tests 2 08/10/21 19:02: Bedside Glucose (Misc Panel) 90 08/10/21 20:48: Bedside Glucose (Misc Panel) 105 08/10/21 23:59: Bedside Glucose (Misc Panel) 131H 08/11/21 00:03: Blood Gas Bicarbonate Standard 18.6L, Arterial Blood pH 7.152*L, Arterial Blood Partial Pressure CO2 65.1*H, Arterial Blood Partial Pressure O2 77.4, Arterial Blood Total CO2 24.3, Arterial Blood HCO3 22.3, Arterial Blood Base Excess - 7.1L, Arterial Blood Oxygen Saturation 93.0L 08/11/21 05:39: Bedside Glucose (Misc Panel) 174H 08/11/21 05:50: Immature Granulocyte % (Auto) 4.3H, Neutrophils (%) (Auto) 88.5H, Lymphocytes (%) (Auto) 4.8L, Monocytes (%) (Auto) 2.0, Eosinophils (%) (Auto) 0.0, Basophils (%) (Auto) 0.4, Neutrophils # (Auto) 20.5H, Lymphocytes # (Auto) 1.1L, Monocytes # (Auto) 0.5, Eosinophils # (Auto) 0.0, Basophils # (Auto) 0.1, Nucleated Red Blood Cells % (auto) 0.4H, Anion Gap 6L, Glomerular Filtration Rate 17.0L, Calcium Level 9.5, Procalcitonin 0.40 08/11/21 05:55: Blood Gas Bicarbonate Standard 21.5L, Arterial Blood pH 7.180*L, Arterial Blood Partial Pressure CO2 70.9*H, Arterial Blood Partial Pressure O2 126.4H, Arterial Blood Total CO2 28.0, Arterial Blood HCO3 25.9, Arterial Blood Base Excess - 3.6L, Arterial Blood Oxygen Saturation 98.3 08/11/21 09:20: Blood Gas Bicarbonate Standard 20.7L, Arterial Blood pH 7.207*L, Arterial Blood Partial Pressure CO2 62.6*H, Arterial Blood Partial Pressure O2 68.0L, Arterial Blood Total CO2 26.2, Arterial Blood HCO3 24.3, Arterial Blood Base Excess - 4.5L, Arterial Blood Oxygen Saturation 92.9L CBC/BMP Laboratory Tests 08/11/21 05:50 Microbiology Microbiology 08/11/21 Gram Stain - Final, Resulted 08/11/21 Sputum Culture, Resulted Pending Ritika Magana MD Aug 11, 2021 16:11
--- NOTE | 2021-08-11 17:03 | RO ---
OPERATIVE NOTE DATE OF OPERATION: 08/11/2021 TIME: 12:06 p.m. PREOPERATIVE DIAGNOSIS: Left hip peritrochanteric fracture. POSTOPERATIVE DIAGNOSIS: Left hip peritrochanteric fracture. NAME OF OPERATION: Left hip cephalomedullary nail (long). SURGEON: Domenico Pressley MD OUTSIDE FOOD SERVER: None. SUPERVISING ATTENDING: Domenico Pressley MD FINDINGS: The patient had a left peritrochanteric hip fracture. INDICATIONS: This was a 76-year-old female with a complicated past medical history with a left peritrochanteric hip fracture sustained on the espinoza of the 09 of August after a ground-level fall. She was admitted to [facility] on the for surgical evaluation of the left hip. The orthopedic surgeon who was initially consulted was Dr. Nba Nunez. Dr. Nunez referred the patient to me of which I proceeded to evaluate the patient for a surgical intervention as described above. This would enable early range of motion and weightbearing. ANESTHESIA: GETA. TOURNIQUET TIME: None used. ESTIMATED BLOOD LOSS: 300 mL. IV FLUIDS: Please see anesthesia report. IV ANTIBIOTICS: 2 gm Ancef. IMPLANTS: Synthes. CULTURES: None. SPECIMENS: None. DESCRIPTION OF PROCEDURE: The patient was met in the preoperative holding area where the patient's operative extremity was signed, the patient's consent was confirmed to be correct, and the patient's identity was confirmed to be correct. The patient was then transported to the operating theater where she was placed in a supine position on a fracture table. A safety strap secured the patient to the bed. All bony prominences were well padded. The contralateral lower extremity had an SCD placed. A timeout was called which confirmed the correct patient, correct operative extremity and correct consent. All staff were in agreement. The patient was then draped in the usual sterile fashion. We began the procedure by obtaining AP and lateral fluoroscopic images of the patient's left hip. This allowed me to make the correct percutaneous incisions necessary to proceed with implantation of the cephalomedullary nail. After obtaining fluoroscopic imaging, I then applied manual skeletal traction in order to assist with reduction of the fracture. I was able to make the reduction much closer to its [place] anatomy. I then performed an anterior percutaneous incision in order to extend the flexed proximal fragment of the calcar and femoral neck. After making a percutaneous incision anterior to the calcar region, I used hemostats to widen the tract and placed a ball spike point pusher on the anterior cortex of the calcar region in order to take the proximal fragment of extension and into a neutral alignment. This provided the necessary vector of force in order to reduce the fracture. I then made a second small lateral percutaneous incision about 90 degrees from the first percutaneous incision. This was on the inferior aspect of the greater trochanter and in line with the calcar region. After incising the skin sharply, I then incised the IT band, using a Hernandez elevator in order to elevate the musculature off the anterior aspect of the patient's proximal femur. I then placed a ball hook within the percutaneous incision and used this to grasp the medial aspect of the patient's calcar and abduct the patient's left leg into neutral position. I then proceeded with the case. I made a 3 cm incision three fingerbreadths proximal to the greater trochanter on the lateral aspect. I then placed a thin guidewire just medial to the greater trochanteric on the AP view and in line with femoral neck and shaft on the lateral view. This was advanced to the level of the lesser trochanter. I then used a soft tissue protector and entry reamer in order to gain access into the proximal femoral canal. I then removed the entry reamer as well as the threaded guide pin. At this point in time which maintaining my reduction using an fleet administrative assistant, I placed a ball-tip guidewire down the shaft of the femur. I introduced this to the level of the physeal scar of the distal femur. I then used this to measure the length of the femoral implant which would be 380 mm x 11.5 mm. I sequentially reamed from 9.5 to a 12.5 mm reamer and then advanced an 11.5 mm x 380 mm long cephalomedullary nail into position using light taps of the mallet. I then removed the ball-tip wire. At this point in time, I then applied the triple sleeve onto the jig. I used this to place a threaded guide pin within the femoral neck which was center/center on the AP and lateral views along the femoral neck. This was advanced to subchondral bone within the femoral head. However, this did not penetrate the femoral head. This was measured to be 95 mm which was to be length of our lag screw. I then placed the cannulated lag screw over the threaded guide pin. At this point in time, I let down the gross traction of the patient's left leg and compressed across the basicervical region of the fracture. This would aid in healing. I then placed the set screw into position which was tightened. I then turned my attention to the distal femur and placed two distal femur interlocking screws using perfect flandreau technique. I then removed the jig, obtained final fluoroscopic imaging, demonstrating that I was satisfied with the fracture reduction as well as the implant placement. I copiously irrigated all my surgical sites. I closed the dermal layer of each of my surgical sites with 2-0 Vicryl and the skin with bharat. I did close one percutaneous incision, the anterior one with 3-0 nylon suture due to is location within the pannus. I then placed an arthroplasty style dressing over the patient's surgical incisions. The patient was then awakened from anesthesia, transferred to the postanesthesia care unit. At this point in time, the patient will be weightbearing as tolerated to the left lower extremity. She can initiate physical therapy per the cephalomedullary nail/peritrochanteric/subtrochanteric rehabilitative protocol. She will be given the appropriate postoperative medication by her hospitalist provider. The patient can follow up in the [facility] clinic on the August, for a wound check and staple removal.
--- NOTE | 2021-08-11 17:45 | ER ---
ER CONSULTATION DATE: 08/10/2021 TIME: 6:00 p.m. CONSULTED SERVICE: Orthopedic Surgery. CONSULTED PHYSICIAN: Domenico Pressley MD HISTORY OF PRESENT ILLNESS: This is a 76-year-old female with a left hip peritrochanteric fracture with a fracture line of the basicervical region which extends distal to the level of the lesser trochanter. The patient sustained a ground-level fall at home while using a walker. She is a home-bound walker with assistive devices. The patient had immediate left hip pain and inability to bear weight on her left side. She has a past medical history of end-stage renal disease, COPD on home oxygen, atrial fibrillation status post Watchman device placement as well as pacemaker, congestive heart failure, chronic anemia iron-deficiency. The patient lives with her daughter. The patient did have a previous chronic right pubic rami fracture. The patient was admitted to the [facility] on the August for left hip pain. Orthopedic Surgery was consulted for the aforementioned diagnosis for further evaluation and treatment. PAST MEDICAL HISTORY: 1. ESRD. 2. Secondary hyperparathyroidism. 3. Anemia of chronic disease. 4. COPD. 5. History of COVID. 6. RSV. 7. Hypertension. 8. Type-2 diabetes. 9. Coronary artery disease. 10. Congestive heart failure. 11. Hyperuricemia. 12. GERD. 13. CATHRYN. 14. Paroxysmal atrial fibrillation. 15. Peripheral arterial disease. 16. Hyperlipidemia. 17. Iron-deficiency. 18. Osteoporosis. PAST SURGICAL HISTORY INCLUDES: Pacemaker implant 2014. Medications and allergies, please see internal medicine note. FAMILY HISTORY: 1. Diabetes. 2. Hypertension. SOCIAL HISTORY: Previous smoker, quit in 2019. Social drinker. Not an IV drug user. REVIEW OF SYSTEMS: Fourteen point review of systems as described above. PHYSICAL EXAMINATION: The patient had tenderness to palpation about the left hip. She held her left hip in flexion, abduction, external rotation. There are no breaks in the skin. She had positive log roll test. She was otherwise neurovascularly intact in the left lower extremity. She had a 5/5 motor strength to the EHL, FHL, tibialis anterior, gastrocnemius and peroneal musculature. Sensation was intact to light touch to the deep and superficial peroneal, sural, saphenous, and tibial nerve distributions. She had a palpable dorsalis pedis and posterior tibial arterial pulse and brisk capillary refill to the digits. RADIOGRAPHS: Radiographs demonstrate a peritrochanteric fracture. She has a fracture line in the basicervical region that extends distal to the lesser trochanter which appears to involve the subtrochanteric region. She also has a fracture line of the greater trochanter. CT scan confirms the above. IMPRESSION: A 76-year-old female in poor health with a left peritrochanteric hip fracture. PLAN: At this point in time, we will proceed with a left cephalomedullary nail (long) to stabilize the left hip fracture as described above. The patient will be optimized for surgery on the August, in order to encourage early range of motion of the left hip as well as posture. Surgical fixation is planned within 48 hours of admittance. I spoke to the hospitalist who optimized the patient. She will be NPO starting 7:00 a.m. tomorrow morning.
[2021-08-11 21:31] LABS: ABG BASE EXCESS -8.7 (-2.0-2.0); ABG HCO3 19.4 MEQ/L (22.0-26.0); ABG O2 SATURATION 97.7 % (95.0-99.0); ABG PARTIAL PRESSURE CO2 53.3 mmHg (35.0-45.0); ABG PARTIAL PRESSURE O2 104.2 mmHg (75.0-100.0); ABG STANDARD HCO3 17.4 MEQ/L (22.0-26.0); ABG TOTAL CO2 21.1 MEQ/L (23.0-31.0)
[2021-08-11] MEDS: ACETAMINOPHEN TAB 650MG DOSE (2X325MG) PO PRN (23:48)
[2021-08-12] VITALS (12 sets, daily range): BP systolic 99–121; BP diastolic 53–67
[2021-08-12] MEDS: IPRATROPIUM 0.5MG/ALBUTEROL 2.5MG INH SOL UD 3ML (DUONEB) NEB SCH ×4 (01:37→20:00)
[2021-08-12 06:34] LABS: BASO % 0.2 % (0.0-1.0); HEMATOCRIT 27.7 % (36.0-47.0); LYMPH # 0.9 10^3/uL (1.5-5.0); LYMPH % 3.9 % (24.0-44.0); MEAN CORPUSCULAR HEMOGLOBIN 31.5 pg (27.0-33.0); MEAN CORPUSCULAR HGB CONC 29.6 g/dl (32.0-36.5); MEAN CORPUSCULAR VOLUME 106.5 fl (80.0-96.0); MONO # 0.4 10^3/uL (0.0-0.8); MONO % 1.6 % (2.0-8.0); NEUTROPHILS # 22.3 10^3/uL (1.5-8.5); NEUTROPHILS % 91.6 % (36.0-66.0); PLATELET COUNT, AUTOMATED 158 10^3/uL (150-450); WHITE BLOOD COUNT 24.3 10^3/uL (4.0-10.0)
[2021-08-12 06:37] LABS: HEMOGLOBIN 8.2 g/dl (12.0-15.5)
[2021-08-12 06:56] LABS: CALCIUM LEVEL 8.2 MG/DL (8.8-10.2); CREATININE FOR GFR 4.76 MG/DL (0.55-1.30); GLOMERULAR FILTRATION RATE 9.5 (>39); POTASSIUM SERUM 5.5 MEQ/L (3.5-5.1)
[2021-08-12] MEDS: SYMBICORT 160/4.5MCG INHALER 6GM INH SCH ×2 (07:50→20:34)
[2021-08-12] MEDS ORDERED: IPRATROPIUM 0.5MG/ALBUTEROL 2.5MG INH SOL UD 3ML (DUONEB) NEB PRN (08:15)
[2021-08-12] MEDS ORDERED: SODIUM CHLORIDE 0.9% 1000ML IV PRN (08:25)
[2021-08-12] MEDS: HumaLOG INSULIN (NovoLOG) PER UNIT SC SCH ×4 (08:42→21:00)
[2021-08-12] MEDS: HEPARIN SOD (PORCINE) 5000UNITS/ML 1ML VIAL/SYRINGE SQ SCH ×2 (08:42→21:19)
[2021-08-12] MEDS: ACETAMINOPHEN TAB 650MG DOSE (2X325MG) PO PRN (08:43)
[2021-08-12] MEDS: ATORVASTATIN 20 MG TAB PO SCH (08:43)
[2021-08-12] MEDS: allopurinoL 100 MG TAB PO SCH (08:43)
[2021-08-12] MEDS: PANTOPRAZOLE 40MG TAB (PROTONIX) PO SCH (08:43)
[2021-08-12] MEDS: AMIODARONE 200 MG TAB (PACERONE) PO SCH (08:43)
--- NOTE | 2021-08-12 09:23 | IPNPDOC ---
Text Note Date of Service The patient was seen on 08/12/21. NOTE CRITICAL CARE PROGRESS NOTE: SUBJECTIVE: Patient seen and examined at bedside. There were no overnight events. Patient is postop day 1. She was noninvasive ventilation overnight. She is not currently on any drips or IV fluids. She is currently on nasal cannula oxygen and she is not in distress. She had a T-max of 100.1. She is a positive fluid balance of 1380. She endorses that she is in severe pain in the left hip All other ROS are negative except as mentioned above PHYSICAL EXAMINATION: VITAL SIGNS: Please see below. GENERAL APPEARANCE: Alert and awake. HEENT: no thyromegaly, trachea midline, PERRLA. normal mucous membranes RESPIRATORY: CTA B/L, good air entry. CARDIOVASCULAR: +s1 s2, no murmurs. ABDOMEN: nontender, not distended, +BS EXTREMITIES: Left leg dressing clean dry and intact. No edema or erythema. palpable distal pulses SKIN: no rash, no purpura NEUROLOGICAL: no sensory or motor deficits, orientedx3. PERTINENT LABS/IMAGING: No chest x-ray today. IMPRESSION: 1. Acute on chronic hypercapnic respiratory failure likely secondary to respiratory depression from narcotics, improved 2. Left femoral neck fracture status post mechanical fall, status post medullary nail fixation, postop day 1 3. History of COPD on home oxygen not in exacerbation. History of CATHRYN noncompliant with PAP therapy. Both likely contributing to chronic hypercapnic respiratory failure. 4. History of A. fib status post watchman procedure and pacemaker currently rate controlled 5. End-stage renal disease on hemodialysis 6. Metabolic encephalopathy secondary to CO2 narcosis improved PLAN: PEOPLESOFT TALEO MANAGER: Avoid PEOPLESOFT TALEO MANAGER depressants. Would use Tylenol and NSAIDs for acute pain for now. PULM: Patient has improvement in her hypercapnia. Placed on nasal cannula with goal SPO2 89 to 92%. DC Solu-Medrol as patient is not in exacerbation. Continue with bronchodilators [id number] and as needed. Her baseline CO2 is 50-55. Incentive spirometer and early immobilization as tolerated. DC AVAPS can use tabletop CPAP 10 cm of water nightly. CARDIO: Maintain MAPs 60-65. GI: P.o. diet advance as tolerated. RENAL: monitor lytes. Spoke with nephrology. patient has worsening metabolic acidosis secondary to her renal failure and she will need dialysis today. ID: Monitor off antibiotics. ENDO: Monitor FS per routine. Goal range 140-180. HEME: DVT ppx DISPOSITION: Patient will need physical therapy as tolerated. Patient will need hemodialysis to correct her metabolic acidosis. Patient can be transferred out of the ICU. Patient will need CPAP pressure 10 nightly and outpatient pulmonary follow-up. Pulmonary/icu will sign off please recall as needed if there is any change in the patient's status. A total of 36 minutes of critical care time was spent on patient care, not including procedures VS,Fishbone, I+O VS, Fishbone, I+O Laboratory Tests 08/12/21 05:52 Vital Signs Date Time Temp Pulse Resp B/P (MAP) Pulse Ox O2 Delivery O2 Flow Rate FiO2 08/12/21 07:48 82 08/12/21 03:27 50 08/12/21 02:00 105/53 (70) 96 NIPPV (BIPAP/CPAP) 08/12/21 01:37 18 08/12/21 00:00 98.6 08/11/21 18:00 6.0 I&O- Last 24 Hours up to 6 AM0 08/12/21 06:00 Intake Total 1530 ml Output Total 20 ml Balance 1510 ml MELQUIADES JOSÉ MD Aug 12, 2021 09:23
[2021-08-12] MEDS: DARBEPOETIN 200MCG/0.4ML *DIALYSIS* SYRINGE (J0882 PER 1MCG) IV SCH (11:17)
[2021-08-12] MEDS: KETOROLAC 30 MG/ML 1ML VIAL IV SCH ×2 (12:00→21:21)
--- NOTE | 2021-08-12 12:30 | IPNPDOC ---
Subjective Date Seen The patient was seen on 08/12/21. Subjective Chief Complaint/HPI Patient awake alert oriented x3 seen at HD reports that her breathing is better. She is currently on 5 to 6 L of nasal cannula oxygen. Reports that she has severe pain in the left hip and even the minimum moving of her foot is causing her unbearable pain. Objective Physical Examination General Exam: Positive: Alert, Cooperative, No Acute Distress Eye Exam: Positive: PERRLA, Conjunctiva & lids normal, EOMI ENT Exam: Positive: Atraumatic, Mucous membr. moist/pink, Pharynx Normal Neck Exam: Positive: Supple Chest Exam: Positive: Diminished, Other; Negative: Rhonchi, Wheezing Heart Exam: Positive: Rate Normal, Regular Rhythm, Normal S1, Normal S2 Telemetry: Positive: Other Telemetry: Abdomen Exam: Positive: Normal bowel sounds, Soft Extremity Exam: Positive: Edema Neuro Exam: Positive: Normal Speech, Normal Tone, Sensation Intact Psych Exam: Positive: Memory Intact, Oriented x 3 Assessment /Plan Assessment 76-year-old female from home with past medical history of ESRD, COPD on home oxygen, atrial fibrillation status post watchman device placement as well as pacemaker, congestive heart failure, chronic anemia, iron deficiency presented to the emergency room after a mechanical fall at home this morning when she was ambulating with her walker to the bathroom. The wheel of the walker had gotten stuck at the bathroom door so she was trying to move backward a few steps to dislodge the wheel when she tripped over and fell on her left side with severe pain at her left hip. Her daughter who lives with her called the ambulance. In the ED she was found to have left femoral intertrochanteric fracture as well as a separate left greater trochanter fracture. She was also noted to have an old right pubic rami fracture. Patient was admitted for left femoral neck fracture. Overnight on 08/10/21 patient was noted to be lethargic and ABG showed acute on chronic respiratory failure with hypercarbia and hypoxia thought to be related to narcotics. She also had an episode of vomiting went she was lethargic so thoughts about as aspiration pneumonia was also entertained. She was moved to ICU and placed on BIPAP. Acute on chronic respiratory failure with hypercarbia likely due to narcotics given for her pain from the hip fracture. Now resolved Patient to continue CPAP at 10 cm of water at night and nasal cannula during the day Left femoral neck fracture s/p Intramedullary rodding of femur on 08/11/21 pain control with tylenol and Toradol and tramadol We will have to be cautious about use of narcotics Incentive spirometer Leucocytosis reactive due to steroids, acute fracture. ESRD HD as per nephrology Anemia of chronic disease and iron deficiency received 1 unit of PRBC also getting darbepoetin during HD Continue ferrous sulfate COPD with acute on chronic hypoxic and hypercarbic respiratory failure This was due to narcotics which is now is We will continue Symbicort in place of Breo continue albuterol We will continue with incentive spirometry and chest PT Diabetes We will place the patient on lispro as per sliding scale Fingerstick before meals and at bedtime carb consistent diet Hypertension Blood pressure well controlled without any medication. diltiazem has been stopped Atrial fibrillation status post placement of watchman device and pacemaker Continue amiodarone. Diltiazem stopped due to low blood pressure. Patient is now in paced rhythm GERD Continue PPI Gout Continue allopurinol Plan/VTE VTE Prophylaxis Ordered?: Yes VS, I&O, 24H, [facility] Vital Signs/I&O Vital Signs Date Time Temp Pulse Resp B/P (MAP) Pulse Ox O2 Delivery O2 Flow Rate FiO2 08/12/21 09:00 81 112/57 (75) 95 High Flow Cannula 6.0 08/12/21 08:00 98.6 18 08/12/21 07:00 50 I&O- Last 24 Hours up to 6 AM 08/12/21 06:00 Intake Total 1530 ml Output Total 20 ml Balance 1510 ml Laboratory Data 24H LABS Laboratory Tests 2 08/11/21 17:50: Bedside Glucose (Misc Panel) 117H 08/11/21 21:24: Blood Gas Bicarbonate Standard 17.4L, Arterial Blood pH 7.180*L, Arterial Blood Partial Pressure CO2 53.3H, Arterial Blood Partial Pressure O2 104.2H, Arterial Blood Total CO2 21.1L, Arterial Blood HCO3 19.4L, Arterial Blood Base Excess - 8.7L, Arterial Blood Oxygen Saturation 97.7 08/11/21 23:47: Bedside Glucose (Misc Panel) 119H 08/12/21 05:25: Bedside Glucose (Misc Panel) 170H 08/12/21 05:52: Immature Granulocyte % (Auto) 2.7, Neutrophils (%) (Auto) 91.6H, Lymphocytes (%) (Auto) 3.9L, Monocytes (%) (Auto) 1.6L, Eosinophils (%) (Auto) 0.0, Basophils (%) (Auto) 0.2, Neutrophils # (Auto) 22.3H, Lymphocytes # (Auto) 0.9L, Monocytes # (Auto) 0.4, Eosinophils # (Auto) 0.0, Basophils # (Auto) 0.0, Nucleated Red Blood Cells % (auto) 0.7H, Anion Gap 14, Glomerular Filtration Rate 9.5L, Calcium Level 8.2L CBC/BMP Laboratory Tests 08/12/21 05:52 Microbiology Microbiology 08/11/21 Gram Stain - Final, Resulted 08/11/21 Sputum Culture, Resulted Pending Ritika Magana MD Aug 12, 2021 12:29
[2021-08-12] MEDS: SENOKOT S TAB PO SCH ×2 (16:18→21:22)
[2021-08-12] MEDS: MIRALAX *UNIT DOSE* 17GM PACKET PO SCH (16:27)
[2021-08-12] MEDS: ACETAMINOPHEN TAB 650MG DOSE (2X325MG) PO SCH ×2 (16:27→21:23)
--- NOTE | 2021-08-12 17:56 | IPN ---
NEPHROLOGY PROGRESS NOTE DATE: 08/12/2021 SUBJECTIVE: Mrs. Montanez is seen this morning during hemodialysis. I have discussed with Dr. Harrison this morning who called, to request for another dialysis session today due to worsening hypoxemia. The patient had her left hip fracture surgery yesterday and tolerated it well. She was on BIPAP through the night. This morning she is still requiring 6 liters of oxygen with high flow cannula. I was called and asked to arrange for dialysis again today in view of decompensated volume status. The patient is currently being dialyzed already and she seems to be tolerating it well. OBJECTIVE: PHYSICAL EXAMINATION: VITAL SIGNS: Temperature is 98.6 degrees Fahrenheit, heart rate 80 per minute and respiratory rate 20 per minute. Blood pressure is 112/57 mm of mercury and oxygen saturation is 95%. HEENT: Her head is atraumatic. NECK: Supple and JVD is moderately elevated. Hemodialysis catheter is in place in the right internal jugular vein. HEART: Sounds are irregular. LUNGS: Diminished breath sounds and bilateral expiratory wheeze. ABDOMEN: Soft and nontender and bowel sounds are normal. EXTREMITIES: Without any cyanosis or clubbing. She does have edema on her legs. Her left leg is still internally rotated. Left hip area surgical incision is clean. NEUROLOGICAL: She is grossly intact. LABORATORY STUDIES: Today's labs show a WBC count of 24.3, hemoglobin 8.2 and hematocrit 27.7. Sodium 133, potassium 5.5, CO2 20, BUN 44 and creatinine 4.76, glucose 154, and calcium 8.2. PROBLEMS: 1. Hyperkalemia the patient is being dialyzed and we are using 2.0 mEq of potassium bath. This will correct her hyperkalemia completely. 2. Hypoxemia Volume status is still decompensated. She has congestive heart failure in addition to end-stage renal disease. We are trying to remove about 2.5 liters fluid as tolerated. She seems to be tolerating it well so far. 3. Metabolic acidosis and hypoxemia the patient's acidosis is partly respiratory acidosis and partly related to end-stage renal disease. This will be corrected with dialysis. I hope that removing fluid will also help with her respiratory acidosis. 4. Anemia - The patient has anemia of chronic kidney disease and in addition, she also had hip surgery yesterday. She is now volume overloaded and at this point there is no emergent need for a transfusion. I anticipate improvement in anemia with fluid removal. CBC should be repeated again tomorrow. 5. Hypotension - The patient has chronic hypotension, however at present she seems to be stable and tolerating dialysis well. She is not on Midodrine at present.
[2021-08-13] VITALS (11 sets, daily range): BP systolic 91–125; BP diastolic 51–65; O2SAT 82–95
[2021-08-13] MEDS: IPRATROPIUM 0.5MG/ALBUTEROL 2.5MG INH SOL UD 3ML (DUONEB) NEB SCH ×4 (01:15→21:23)
[2021-08-13] MEDS: KETOROLAC 30 MG/ML 1ML VIAL IV SCH ×3 (04:24→21:04)
[2021-08-13 05:43] LABS: BASO % 0.2 % (0.0-1.0); HEMATOCRIT 25.5 % (36.0-47.0); HEMOGLOBIN 7.7 g/dl (12.0-15.5); LYMPH % 9.6 % (24.0-44.0); MEAN CORPUSCULAR HEMOGLOBIN 31.7 pg (27.0-33.0); MEAN CORPUSCULAR HGB CONC 30.2 g/dl (32.0-36.5); MEAN CORPUSCULAR VOLUME 104.9 fl (80.0-96.0); NEUTROPHILS # 16.4 10^3/uL (1.5-8.5); NEUTROPHILS % 76.6 % (36.0-66.0); PLATELET COUNT, AUTOMATED 178 10^3/uL (150-450); RED BLOOD COUNT 2.43 10^6/uL (4.00-5.40); WHITE BLOOD COUNT 21.3 10^3/uL (4.0-10.0)
[2021-08-13] MEDS: ACETAMINOPHEN TAB 650MG DOSE (2X325MG) PO SCH ×3 (06:06→21:04)
[2021-08-13 06:16] LABS: MONO # 2.4 10^3/uL (0.0-0.8)
[2021-08-13 06:30] LABS: CALCIUM LEVEL 7.3 MG/DL (8.8-10.2); CREATININE FOR GFR 3.88 MG/DL (0.55-1.30); GLOMERULAR FILTRATION RATE 12.1 (>39)
[2021-08-13] MEDS: SYMBICORT 160/4.5MCG INHALER 6GM INH SCH ×2 (07:43→10:09)
[2021-08-13] MEDS: PANTOPRAZOLE 40MG TAB (PROTONIX) PO SCH (08:04)
[2021-08-13] MEDS: allopurinoL 100 MG TAB PO SCH (08:04)
[2021-08-13] MEDS: SENOKOT S TAB PO SCH ×2 (08:04→21:04)
[2021-08-13] MEDS: AMIODARONE 200 MG TAB (PACERONE) PO SCH (08:04)
[2021-08-13] MEDS: HEPARIN SOD (PORCINE) 5000UNITS/ML 1ML VIAL/SYRINGE SQ SCH ×2 (08:04→21:04)
[2021-08-13] MEDS: ATORVASTATIN 20 MG TAB PO SCH (08:04)
[2021-08-13] MEDS: HumaLOG INSULIN (NovoLOG) PER UNIT SC SCH ×4 (08:05→21:00)
[2021-08-13] MEDS: MIRALAX *UNIT DOSE* 17GM PACKET PO SCH (08:05)
--- NOTE | 2021-08-13 10:58 | IPNPDOC ---
Subjective Date Seen The patient was seen on 08/13/21. Subjective Chief Complaint/HPI Patient has mobilized out of bed to chair. Denies any shortness of breath. She is now on 5 L of oxygen. No fever or chills in the last 24 hours. She does not make much urine so will DC Galvan. Sputum culture is positive so we will restart her on antibiotics. Pain is better controlled today. She tells me that her mouth gets very dry at night so she has to sleep on water all night long. Tells me that she drinks a lot of fluids. Discussed with her that she will have to follow a fluid restriction otherwise she will always be fluid overloaded with problems with breathing. She also tells me that she does not have a CPAP at home and does not like to use it. Objective Physical Examination General Exam: Positive: Alert, Cooperative, No Acute Distress Eye Exam: Positive: PERRLA, Conjunctiva & lids normal, EOMI ENT Exam: Positive: Atraumatic, Mucous membr. moist/pink, Pharynx Normal Neck Exam: Positive: Supple Chest Exam: Positive: Diminished, Other; Negative: Rhonchi, Wheezing Heart Exam: Positive: Rate Normal, Regular Rhythm, Normal S1, Normal S2 Telemetry: Positive: Other Telemetry: Abdomen Exam: Positive: Normal bowel sounds, Soft Extremity Exam: Positive: Edema (trace) Skin Exam: Positive: Other skin issue (Large hand sized bruise on the left post chest ) Neuro Exam: Positive: Normal Speech, Normal Tone, Sensation Intact Psych Exam: Positive: Memory Intact, Oriented x 3 Assessment /Plan Assessment 76-year-old female from home with past medical history of ESRD, COPD on home oxygen, atrial fibrillation status post watchman device placement as well as pacemaker, congestive heart failure, chronic anemia, iron deficiency presented to the emergency room after a mechanical fall at home this morning when she was ambulating with her walker to the bathroom. The wheel of the walker had gotten stuck at the bathroom door so she was trying to move backward a few steps to dislodge the wheel when she tripped over and fell on her left side with severe pain at her left hip. Her daughter who lives with her called the ambulance. In the ED she was found to have left femoral intertrochanteric fracture as well as a separate left greater trochanter fracture. She was also noted to have an old right pubic rami fracture. Patient was admitted for left femoral neck fracture. Overnight on 08/10/21 patient was noted to be lethargic and ABG showed acute on chronic respiratory failure with hypercarbia and hypoxia thought to be related to narcotics. She also had an episode of vomiting went she was lethargic so thoughts about as aspiration pneumonia was also entertained. She was moved to ICU and placed on BIPAP. Left femoral neck fracture s/p Intramedullary rodding of femur on 08/11/21 pain control with tylenol and Toradol and tramadol and norco We will have to be cautious about use of narcotics Incentive spirometer PT/OT bowel regimen. Acute on chronic respiratory failure with hypercarbia likely due to narcotics given for her pain from the hip fracture. Now resolved Patient to continue CPAP at 10 cm of water at night and nasal cannula during the day Possible aspiration pneumonia Patient sputum culture is growing Streptococcus pneumoniae heavy She did vomit in an obtunded state Continues to have persistent leukocytosis So will treat as a pneumonia and give ceftriaxone Leukocytosis Likely combination of infection and reactive to steroids and acute fracture ESRD HD as per nephrology Anemia of chronic disease and iron deficiency received 1 unit of PRBC also getting darbepoetin during HD Continue ferrous sulfate COPD with acute on chronic hypoxic and hypercarbic respiratory failure This was due to narcotics which is now is We will continue Symbicort in place of Breo continue albuterol We will continue with incentive spirometry and chest PT Diabetes We will place the patient on lispro as per sliding scale Fingerstick before meals and at bedtime carb consistent diet Hypertension Blood pressure well controlled without any medication. diltiazem has been stopped Atrial fibrillation status post placement of watchman device and pacemaker Continue amiodarone. Diltiazem stopped due to low blood pressure. Patient is now in paced rhythm GERD Continue PPI Gout Continue allopurinol Plan/VTE VTE Prophylaxis Ordered?: Yes VS, I&O, 24H, Fishbone Vital Signs/I&O Vital Signs Date Time Temp Pulse Resp B/P (MAP) Pulse Ox O2 Delivery O2 Flow Rate FiO2 08/13/21 10:38 98 High Flow Cannula 5.0 08/13/21 08:00 95.5 98 18 100/51 (67) 08/12/21 08:00 50 I&O- Last 24 Hours up to 6 AM 08/13/21 05:59 Intake Total 240 ml Output Total 2160 ml Balance -1920 ml Laboratory Data 24H LABS Laboratory Tests 2 08/12/21 16:29: Bedside Glucose (Misc Panel) 120H 08/12/21 21:22: Bedside Glucose (Misc Panel) 119H 08/13/21 04:47: Immature Granulocyte % (Auto) 2.6, Neutrophils (%) (Auto) 76.6H, Lymphocytes (%) (Auto) 9.6L, Monocytes (%) (Auto) 11.0H, Eosinophils (%) (Auto) 0.0, Basophils (%) (Auto) 0.2, Neutrophils # (Auto) 16.4H, Lymphocytes # (Auto) 2.0, Monocytes # (Auto) 2.4H, Eosinophils # (Auto) 0.0, Basophils # (Auto) 0.0, Nucleated Red Blood Cells % (auto) 1.0H, Anion Gap 11, Glomerular Filtration Rate 12.1L, Calcium Level 7.3L CBC/BMP Laboratory Tests 08/13/21 04:47 Microbiology Microbiology 08/11/21 Gram Stain - Final, Resulted 08/11/21 Sputum Culture - Preliminary, Resulted Streptococcus Pneumoniae Ritika Magana MD Aug 13, 2021 10:58
[2021-08-13] MEDS: cefTRIAXone SOD 1 GM in D5W MINI-BAG PLUS 50 ML IV SCH (11:34)
--- NOTE | 2021-08-13 15:22 | IPN ---
PROGRESS NOTE DATE: 08/13/2021 SUBJECTIVE: Mrs. Montanez is seen this morning at her bedside. She is currently sitting in the chair. She reports it was quite difficult for her to get out of bed into chair. She just had left hip fracture, status post surgery two days ago. She was dialyzed yesterday due to hyperkalemia and hypoxemia and her respiratory status seems improved. OBJECTIVE: VITAL SIGNS: Temperature is 95.5 degrees Fahrenheit, heart rate 98 per minute and respiratory rate 18 per minute. Blood pressure 100/50 mmHg and oxygen saturation 98% on 5 liters oxygen. HEENT: Her head is atraumatic. Mild facial edema is noted. NECK: Supple and JVD not elevated sitting upright. She has a dialysis catheter in right internal jugular vein. HEART: Sounds are irregular and tachycardic. LUNGS: Diminished breath sounds bilaterally. ABDOMEN: Soft and nontender and bowel sounds are normal. EXTREMITIES: Without any cyanosis or clubbing. She does have trace edema on her legs. NEUROLOGICAL: She is at baseline mentation. Today's labs show WBC count 21.3, hemoglobin 7.7 and hematocrit 25.5. Platelets 178. Sodium 133, potassium 4.0, CO2 27, BUN 39 and creatinine 3.88. Glucose 107 and calcium 7.3. PROBLEMS: 1. End-stage renal disease. The patient was dialyzed yesterday again due to hyperkalemia and next regular dialysis will be tomorrow. At this point there is no emergent need for dialysis today. 2. Hyperkalemia. Her potassium level was 5.5 yesterday which has improved down to 4.0 today. No emergent intervention needed. 3. Hypoxemia and congestive heart failure. She does have chronic lung disease in addition to congestive heart failure. We were able to remove about 2 liters of fluid yesterday with the dialysis. Her hypoxemia has improved and will plan next dialysis for tomorrow. She is still requiring 5 liters of oxygen which is higher than her baseline of about 2-3 liters. 4. Anemia. Her anemia is also worsening, most likely related to blood loss with hip surgery. Will consider transfusing her with the dialysis tomorrow. 5. Hypotension. She has chronic hypotension and has been on Midodrine which she is not receiving here in the hospital. We will watch her for the next 24 hours and see how she does during the next dialysis treatment and then consider to put her on Midodrine if needed.
[2021-08-14] VITALS (11 sets, daily range): BP systolic 89–115; BP diastolic 46–73
[2021-08-14] MEDS: IPRATROPIUM 0.5MG/ALBUTEROL 2.5MG INH SOL UD 3ML (DUONEB) NEB SCH ×5 (01:32→19:32)
[2021-08-14] MEDS: KETOROLAC 30 MG/ML 1ML VIAL IV SCH ×3 (03:07→20:59)
[2021-08-14] MEDS: ACETAMINOPHEN TAB 650MG DOSE (2X325MG) PO SCH ×3 (06:10→20:58)
[2021-08-14 06:35] LABS: BASO % 0.2 % (0.0-1.0); EOS # 0.1 10^3/uL (0.0-0.5); EOS % 0.2 % (0.0-3.0); HEMATOCRIT 23.4 % (36.0-47.0); HEMOGLOBIN 7.2 g/dl (12.0-15.5); LYMPH # 1.8 10^3/uL (1.5-5.0); LYMPH % 7.8 % (24.0-44.0); MEAN CORPUSCULAR HEMOGLOBIN 32.1 pg (27.0-33.0); MEAN CORPUSCULAR HGB CONC 30.8 g/dl (32.0-36.5); MEAN CORPUSCULAR VOLUME 104.5 fl (80.0-96.0); MONO % 9.2 % (2.0-8.0); NEUTROPHILS # 18.7 10^3/uL (1.5-8.5); NEUTROPHILS % 78.8 % (36.0-66.0); PLATELET COUNT, AUTOMATED 164 10^3/uL (150-450); RED BLOOD COUNT 2.24 10^6/uL (4.00-5.40); WHITE BLOOD COUNT 23.7 10^3/uL (4.0-10.0)
[2021-08-14 06:42] LABS: MONO # 2.2 10^3/uL (0.0-0.8)
[2021-08-14 07:11] LABS: CALCIUM LEVEL 7.2 MG/DL (8.8-10.2); CREATININE FOR GFR 5.61 MG/DL (0.55-1.30); GLOMERULAR FILTRATION RATE 7.9 (>39); POTASSIUM SERUM 4.1 MEQ/L (3.5-5.1)
[2021-08-14] MEDS: SYMBICORT 160/4.5MCG INHALER 6GM INH SCH ×2 (07:24→19:31)
[2021-08-14] MEDS ORDERED: SODIUM CHLORIDE 0.9% 1000ML IV PRN (07:40)
[2021-08-14] MEDS: HumaLOG INSULIN (NovoLOG) PER UNIT SC SCH ×4 (08:18→21:00)
[2021-08-14] MEDS: PANTOPRAZOLE 40MG TAB (PROTONIX) PO SCH (08:19)
[2021-08-14] MEDS: ATORVASTATIN 20 MG TAB PO SCH (08:19)
[2021-08-14] MEDS: allopurinoL 100 MG TAB PO SCH (08:19)
[2021-08-14] MEDS: HEPARIN SOD (PORCINE) 5000UNITS/ML 1ML VIAL/SYRINGE SQ SCH ×2 (08:19→20:59)
[2021-08-14] MEDS: MIRALAX *UNIT DOSE* 17GM PACKET PO SCH (09:00)
[2021-08-14] MEDS: SENOKOT S TAB PO SCH ×2 (09:00→20:58)
[2021-08-14] MEDS ORDERED: ALTEPLASE 2MG/2ML VIAL IV PRN (09:15)
--- NOTE | 2021-08-14 10:24 | IPNPDOC ---
Subjective Date Seen The patient was seen on 08/14/21. Subjective Chief Complaint/HPI Patient refused CPAP last night. was having desaturations during sleep. Getting 2 units of blood today during HD. Denies any sob. Pain is controlled Objective Physical Examination General Exam: Positive: Alert, Cooperative, No Acute Distress Eye Exam: Positive: PERRLA, Conjunctiva & lids normal, EOMI ENT Exam: Positive: Atraumatic, Mucous membr. moist/pink, Pharynx Normal Neck Exam: Positive: Supple Chest Exam: Positive: Diminished, Other; Negative: Rhonchi, Wheezing Heart Exam: Positive: Rate Normal, Regular Rhythm, Normal S1, Normal S2 Telemetry: Positive: Other Telemetry: Abdomen Exam: Positive: Normal bowel sounds, Soft Extremity Exam: Positive: Edema (trace) Skin Exam: Positive: Other skin issue (Large hand sized bruise on the left post chest ) Neuro Exam: Positive: Normal Speech, Normal Tone, Sensation Intact Psych Exam: Positive: Memory Intact, Oriented x 3 Assessment /Plan Assessment 76-year-old female from home with past medical history of ESRD, COPD on home oxygen, atrial fibrillation status post watchman device placement as well as pacemaker, congestive heart failure, chronic anemia, iron deficiency presented to the emergency room after a mechanical fall at home this morning when she was ambulating with her walker to the bathroom. The wheel of the walker had gotten stuck at the bathroom door so she was trying to move backward a few steps to dislodge the wheel when she tripped over and fell on her left side with severe pain at her left hip. Her daughter who lives with her called the ambulance. In the ED she was found to have left femoral intertrochanteric fracture as well as a separate left greater trochanter fracture. She was also noted to have an old right pubic rami fracture. Patient was admitted for left femoral neck fracture. Overnight on 08/10/21 patient was noted to be lethargic and ABG showed acute on chronic respiratory failure with hypercarbia and hypoxia thought to be related to narcotics. She also had an episode of vomiting went she was lethargic so thoughts about as aspiration pneumonia was also entertained. She was moved to ICU and placed on BIPAP. Left femoral neck fracture s/p Intramedullary rodding of femur on 08/11/21 pain control with tylenol, Toradol, tramadol and norco We will have to be cautious about use of narcotics Incentive spirometer PT/OT bowel regimen. Acute on chronic respiratory failure with hypercarbia likely due to narcotics given for her pain from the hip fracture. Now resolved Patient to continue CPAP at 10 cm of water at night and nasal cannula during the day maintain sats st 86% to 90% Possible aspiration pneumonia Patient sputum culture is growing Streptococcus pneumoniae heavy and Moraxella catarrhalis She did vomit in an obtunded state Continues to have persistent leukocytosis So will treat as a pneumonia and give ceftriaxone Leukocytosis Likely combination of infection and reactive to steroids and acute fracture ESRD HD as per nephrology Anemia of chronic disease and iron deficiency received 1 unit of PRBC also getting darbepoetin during HD Continue ferrous sulfate COPD with acute on chronic hypoxic and hypercarbic respiratory failure This was due to narcotics which is now is We will continue Symbicort in place of Breo continue albuterol We will continue with incentive spirometry and chest PT Diabetes We will place the patient on lispro as per sliding scale Fingerstick before meals and at bedtime carb consistent diet Hypertension Blood pressure well controlled without any medication. diltiazem has been stopped Atrial fibrillation status post placement of watchman device and pacemaker Continue amiodarone. Diltiazem stopped due to low blood pressure. Patient is now in paced rhythm GERD Continue PPI Gout Continue allopurinol Plan/VTE VTE Prophylaxis Ordered?: Yes VS, I&O, 24H, Fishbone Vital Signs/I&O Vital Signs Date Time Temp Pulse Resp B/P (MAP) Pulse Ox O2 Delivery O2 Flow Rate FiO2 08/14/21 06:00 97.7 74 18 115/58 (77) 97 Nasal Cannula 6.0 08/12/21 08:00 50 I&O- Last 24 Hours up to 6 AM 08/14/21 06:00 Intake Total 1970 ml Output Total 20 ml Balance 1950 ml Laboratory Data 24H LABS Laboratory Tests 2 08/13/21 11:39: Bedside Glucose (Misc Panel) 136H 08/13/21 16:59: Bedside Glucose (Misc Panel) 127H 08/13/21 20:58: Bedside Glucose (Misc Panel) 112H 08/14/21 06:15: Immature Granulocyte % (Auto) 3.8H, Neutrophils (%) (Auto) 78.8H, Lymphocytes (%) (Auto) 7.8L, Monocytes (%) (Auto) 9.2H, Eosinophils (%) (Auto) 0.2, Basophils (%) (Auto) 0.2, Neutrophils # (Auto) 18.7H, Lymphocytes # (Auto) 1.8, Monocytes # (Auto) 2.2H, Eosinophils # (Auto) 0.1, Basophils # (Auto) 0.0, Nucleated Red Blood Cells % (auto) 0.6H, Anion Gap 13, Glomerular Filtration Rate 7.9L, Calcium Level 7.2L CBC/BMP Laboratory Tests 08/14/21 06:15 Microbiology Microbiology 08/11/21 Gram Stain - Final, Complete 08/11/21 Sputum Culture - Final, Complete Moraxella Catarrhalis Streptococcus Pneumoniae Ritika Magana MD Aug 14, 2021 10:24
--- NOTE | 2021-08-14 12:45 | IPN ---
PROGRESS NOTE DATE: 08/14/2021 SUBJECTIVE: Mrs. Montanez is seen this morning at her bedside during dialysis. Her hemodialysis catheter is not working very well. We have used Activase; however, it is still working very sluggish. The patient on the other hand feels somewhat better. She still has pain in her left hip and back. She denies any nausea or vomiting. Her dyspnea is chronic and stable at baseline. She has no fever or chills. OBJECTIVE: VITAL SIGNS: Temperature is 97.7 degrees Fahrenheit, heart rate 74 per minute and respiratory rate 18 per minute. Blood pressure 115/58 mmHg and oxygen saturation 97%. HEENT: Her head is atraumatic. NECK: Supple and JVD not abnormally elevated. Hemodialysis catheter present in right internal jugular vein. HEART: Sounds are irregular. LUNGS: Diminished breath sounds and bibasilar crackles. ABDOMEN: Soft and nontender and bowel sounds are normal. EXTREMITIES: Without any cyanosis or clubbing. Left hip surgical incision is clean. NEUROLOGICAL: She is at baseline mentation. Today's labs show WBC count 23.7, hemoglobin 7.2 and hematocrit 23.4. Platelets 164. Sodium 133, potassium 4.1, CO2 25, BUN 64 and creatinine 5.61. Glucose 109 and calcium 7.2. PROBLEMS: 1. End-stage renal disease. The patient is being dialyzed today and she is tolerating dialysis extremely well. However, her dialysis catheter is not working too good. We have already used Activase; however, catheter is still working very sluggish. Will get a chest x-ray today to look for any anatomical problems with the catheter. It is possible that she might need change of catheter. 2. Hyponatremia. She has mild hyponatremia which is stable and unchanged. This will likely improve with dialysis. No other intervention will be needed. 3. Anemia. Her anemia is slightly worse and is related to recent hip fracture and surgery. She will be given 2 units of packed RBCs during dialysis today. 4. Congestive heart failure, volume status is reasonable, will try to remove at least 2.5 liters of fluid today if she tolerates. So far she is doing well. 5. COPD. This is a chronic issue and she seems to be stable at present. 6. Left hip fracture, status post ORIF. Pain is being controlled with Tramadol and Toradol. She will probably need some rehab.
[2021-08-14] MEDS: AMIODARONE 200 MG TAB (PACERONE) PO SCH (15:45)
[2021-08-14] MEDS: NORCO, ANEXSIA 5/325MG TABLET (HYDROcodone/ACETAMINOPHEN) PO PRN (15:46)
[2021-08-14] MEDS: cefTRIAXone SOD 1 GM in D5W MINI-BAG PLUS 50 ML IV SCH (15:46)
--- NOTE | 2021-08-14 18:40 | ECGEPIP ---
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
[2021-08-14 22:29] LABS: ABG BASE EXCESS 1.4 (-2.0-2.0); ABG HCO3 27.6 MEQ/L (22.0-26.0); ABG O2 SATURATION 96.2 % (95.0-99.0); ABG PARTIAL PRESSURE CO2 50.7 mmHg (35.0-45.0); ABG PARTIAL PRESSURE O2 84.9 mmHg (75.0-100.0); ABG STANDARD HCO3 25.7 MEQ/L (22.0-26.0); ABG TOTAL CO2 29.1 MEQ/L (23.0-31.0); ABG pH (ARTERIAL) 7.353 UNITS (7.350-7.450)
[2021-08-14] MEDS ORDERED: diphenhydrAMINE 50MG/ML VIAL (J1200) IV ONE (23:35)
[2021-08-15] MEDS: KETOROLAC 30 MG/ML 1ML VIAL IV SCH ×3 (04:00→23:45)
[2021-08-15 06:00] VITALS: BP 82/58
[2021-08-15] MEDS: ACETAMINOPHEN TAB 650MG DOSE (2X325MG) PO SCH ×4 (06:26→23:46)
[2021-08-15] MEDS: SYMBICORT 160/4.5MCG INHALER 6GM INH SCH ×3 (07:30→20:09)
[2021-08-15] MEDS: IPRATROPIUM 0.5MG/ALBUTEROL 2.5MG INH SOL UD 3ML (DUONEB) NEB SCH (07:31)
[2021-08-15] MEDS: PANTOPRAZOLE 40MG TAB (PROTONIX) PO SCH (08:23)
[2021-08-15] MEDS: AMIODARONE 200 MG TAB (PACERONE) PO SCH (08:25)
[2021-08-15] MEDS: ATORVASTATIN 20 MG TAB PO SCH (08:25)
[2021-08-15] MEDS: SENOKOT S TAB PO SCH ×2 (08:25→21:08)
[2021-08-15] MEDS: NORCO, ANEXSIA 5/325MG TABLET (HYDROcodone/ACETAMINOPHEN) PO PRN ×2 (08:25→21:09)
[2021-08-15] MEDS: allopurinoL 100 MG TAB PO SCH (08:25)
[2021-08-15] MEDS: HumaLOG INSULIN (NovoLOG) PER UNIT SC SCH ×4 (08:26→20:18)
[2021-08-15] MEDS: HEPARIN SOD (PORCINE) 5000UNITS/ML 1ML VIAL/SYRINGE SQ SCH ×2 (08:26→21:10)
[2021-08-15] MEDS: MIRALAX *UNIT DOSE* 17GM PACKET PO SCH (08:27)
[2021-08-15 08:39] LABS: BASO # 0.1 10^3/uL (0.0-0.2); BASO % 0.3 % (0.0-1.0); EOS # 0.2 10^3/uL (0.0-0.5); EOS % 0.8 % (0.0-3.0); LYMPH # 2.2 10^3/uL (1.5-5.0); LYMPH % 9.4 % (24.0-44.0); MEAN CORPUSCULAR HEMOGLOBIN 29.2 pg (27.0-33.0); MEAN CORPUSCULAR VOLUME 97.4 fl (80.0-96.0); MONO % 7.6 % (2.0-8.0); NEUTROPHILS # 17.9 10^3/uL (1.5-8.5); NEUTROPHILS % 78.3 % (36.0-66.0); PLATELET COUNT, AUTOMATED 163 10^3/uL (150-450); RED BLOOD COUNT 3.49 10^6/uL (4.00-5.40); WHITE BLOOD COUNT 22.9 10^3/uL (4.0-10.0)
[2021-08-15 09:01] LABS: CALCIUM LEVEL 7.9 MG/DL (8.8-10.2); CREATININE FOR GFR 3.98 MG/DL (0.55-1.30); GLOMERULAR FILTRATION RATE 11.7 (>39); POTASSIUM SERUM 4.1 MEQ/L (3.5-5.1)
--- NOTE | 2021-08-15 09:06 | REP ---
INDICATION: PERMACATH PLACEMENT COMPARISON: 08/10/2021 TECHNIQUE: Portable AP view of the chest FINDINGS: Double-lumen catheter with tip in the SVC. Mediastinum and cardiac silhouette are stable. Lung saavedra demonstrate stable increased interstitial and pulmonary vascular markings along with possible patchy airspace disease. Findings are essentially unchanged. No definite effusion. No pneumothorax. IMPRESSION: Double-lumen catheter with tip in the SVC. No pneumothorax. No change in the bilateral lung saavedra. <Electronically signed by Eddi Bergman > 08/15/21 0902
[2021-08-15 09:39] LABS: MONO # 1.8 10^3/uL (0.0-0.8)
[2021-08-15 09:43] LABS: HEMOGLOBIN 10.2 g/dl (12.0-15.5)
--- NOTE | 2021-08-15 10:21 | IPNPDOC ---
Subjective Date Seen The patient was seen on 08/15/21. Subjective Chief Complaint/HPI Reports could not sleep last night due to the CPAP. She was again tachycardic after getting nebulizer treatment yesterday and this morning. EKG showed tachycardia with all paced complexes with underlying Afib. continues to need 5 to 6 liters of oxygen. Denies any hip pain. Denies any SOB though she does have pursed lip breathing. Objective Physical Examination General Exam: Positive: Alert, Cooperative, No Acute Distress Eye Exam: Positive: PERRLA, Conjunctiva & lids normal, EOMI ENT Exam: Positive: Atraumatic, Mucous membr. moist/pink, Pharynx Normal Neck Exam: Positive: Supple Chest Exam: Positive: Diminished, Other; Negative: Rhonchi, Wheezing Heart Exam: Positive: Rate Normal, Regular Rhythm, Normal S1, Normal S2 Telemetry: Positive: Other Telemetry: Abdomen Exam: Positive: Normal bowel sounds, Soft Extremity Exam: Positive: Edema (trace) Skin Exam: Positive: Other skin issue (Large hand sized bruise on the left post chest ) Neuro Exam: Positive: Normal Speech, Normal Tone, Sensation Intact Psych Exam: Positive: Memory Intact, Oriented x 3 Assessment /Plan Assessment 76-year-old female from home with past medical history of ESRD, COPD on home oxygen, atrial fibrillation status post watchman device placement as well as pacemaker, congestive heart failure, chronic anemia, iron deficiency presented to the emergency room after a mechanical fall at home this morning when she was ambulating with her walker to the bathroom. The wheel of the walker had gotten stuck at the bathroom door so she was trying to move backward a few steps to dislodge the wheel when she tripped over and fell on her left side with severe pain at her left hip. Her daughter who lives with her called the ambulance. In the ED she was found to have left femoral intertrochanteric fracture as well as a separate left greater trochanter fracture. She was also noted to have an old right pubic rami fracture. Patient was admitted for left femoral neck fracture. Overnight on 08/10/21 patient was noted to be lethargic and ABG showed acute on chronic respiratory failure with hypercarbia and hypoxia thought to be related to narcotics. She also had an episode of vomiting went she was lethargic so thoughts about as aspiration pneumonia was also entertained. She was moved to ICU and placed on BIPAP. Left femoral neck fracture s/p Intramedullary rodding of femur on 08/11/21 pain control with tylenol, Toradol, tramadol and norco We will have to be cautious about use of narcotics Incentive spirometer PT/OT bowel regimen. Acute on chronic respiratory failure with hypercarbia due to narcotics given for her pain from the hip fracture. Now resolved Patient to continue CPAP at 10 cm of water at night and nasal cannula during the day maintain sats st 86% to 90% Possible aspiration pneumonia Patient sputum culture is growing Streptococcus pneumoniae heavy and Moraxella catarrhalis She did vomit in an obtunded state Continues to have persistent leukocytosis continue with cefdinir. Leukocytosis Likely combination of infection and reactive to recent steroids and acute fracture No improvement yet. ESRD HD as per nephrology Anemia of chronic disease and iron deficiency received 3 unit of PRBC also getting darbepoetin during HD Continue ferrous sulfate COPD with acute on chronic hypoxic and hypercarbic respiratory failure This was due to narcotics which is now is We will continue Symbicort in place of Breo continue lev albuterol We will continue with incentive spirometry and chest PT Diabetes We will place the patient on lispro as per sliding scale Fingerstick before meals and at bedtime carb consistent diet Hypertension Blood pressure well controlled without any medication. diltiazem has been st opped Atrial fibrillation status post placement of watchman device and pacemaker Continue amiodarone. Diltiazem stopped due to low blood pressure. pulse rate getting uncontrolled intermittently. Patient is now in paced rhythm GERD Continue PPI Gout Continue allopurinol Plan/VTE VTE Prophylaxis Ordered?: Yes VS, I&O, 24H, [facility] Vital Signs/I&O Vital Signs Date Time Temp Pulse Resp B/P (MAP) Pulse Ox O2 Delivery O2 Flow Rate FiO2 08/15/21 08:25 18 Nasal Cannula 6.0 08/15/21 06:00 97.3 80 82/58 (66) 93 08/12/21 08:00 50 I&O- Last 24 Hours up to 6 AM 08/15/21 06:00 Intake Total 1200 ml Output Total 2700 ml Balance -1500 ml Laboratory Data 24H LABS Laboratory Tests 2 08/14/21 17:41: Bedside Glucose (Misc Panel) 131H 08/14/21 20:16: Bedside Glucose (Misc Panel) 138H 08/14/21 22:20: Blood Gas Bicarbonate Standard 25.7, Arterial Blood pH 7.353, Arterial Blood Partial Pressure CO2 50.7H, Arterial Blood Partial Pressure O2 84.9, Arterial Blood Total CO2 29.1, Arterial Blood HCO3 27.6H, Arterial Blood Base Excess 1.4, Arterial Blood Oxygen Saturation 96.2 08/15/21 08:02: Bedside Glucose (Misc Panel) 196H 08/15/21 08:19: Immature Granulocyte % (Auto) 3.6H, Neutrophils (%) (Auto) 78.3H, Lymphocytes (%) (Auto) 9.4L, Monocytes (%) (Auto) 7.6, Eosinophils (%) (Auto) 0.8, Basophils (%) (Auto) 0.3, Neutrophils # (Auto) 17.9H, Lymphocytes # (Auto) 2.2, Monocytes # (Auto) 1.8H, Eosinophils # (Auto) 0.2, Basophils # (Auto) 0.1, Nucleated Red Blood Cells % (auto) 2.3H, Anion Gap 11, Glomerular Filtration Rate 11.7L, Calcium Level 7.9L CBC/BMP Laboratory Tests 08/15/21 08:19 Microbiology Microbiology 08/11/21 Gram Stain - Final, Complete 08/11/21 Sputum Culture - Final, Complete Moraxella Catarrhalis Streptococcus Pneumoniae Ritika Magana MD Aug 15, 2021 10:21
[2021-08-15] MEDS ORDERED: CEFDINIR 300 MG CAP (OMNICEF) PO ONE (11:00)
--- NOTE | 2021-08-15 11:22 | IPNPDOC ---
Subjective Date Seen The patient was seen on 08/15/21. Subjective Chief Complaint/HPI SUBJECTIVE: Patient is seen and examined at bedside rounds this morning. She is sitting up in bed and does not appear to be in acute distress. She's s/p day 2 of L hip ORIF and states pain is currently controlled. She denies any increased sob and lower extremity edema. She continues to have good UO and OBJECTIVE: VS: See below GENERAL: Patient was seen at bedside, sitting in her chair. Shes not in any acute distress, and no increased work of breathing. On 6L NC satting at 93%. NEUROLOGIC: Alert and Oriented x3, interactive and conversational. No focal deficits. HEENT: Head normocephalic, atraumatic. Extraocular muscles are intact. Oral mucosa is moist. No significant adenopathy palpated. HEART: Sounds are regular, NS1, S2. Trace pitting edema. There is no JVD appreciated. Trace pitting edema LUNGS: clear on auscultation. No rhonci, rales or crackles. ABDOMEN: Soft, obese and nontender. Normal bowel sounds. No guarding on palp ation. EXTREMITIES/SKIN: No bruising, cyanosis, petechia, clubbing appreciated. Trace edema bilat extr PSYCH: Mood and affect are appropriate IMPRESSION AND PLAN: 1. End-stage renal disease on HD. The patient was diaylzed yesterday and tolerated without any hemodynamic compromise. Her next dialysis will be tomorrow. Her fluid status on exam is acceptable and she has not had reported sob that deviates from her baseline. She has not had increased lower extr edema in bilateral lower extremities. 2. Heart failure with preserved EF. Patient is diaylsis dependent for volume control with 2.5L of fluid removed yesterday at HD. 3. Afib. c.w amiodarone and digoxin. Rate and rhythm controlled currently with HR in the 70s-90s. 4. Hyponatremia. She has mild hyponatremia which is stable and unchanged. This will likely improve with dialysis. No other intervention will be needed. 5. Anemia. Her anemia is slightly worse and is related to recent hip fracture and surgery. She received 2 PRBCs during dialysis yesterday with improvement in her Hg. Will continue to closely monitor. 6. COPD. She has chronic hypoxic and hypercapnic respirator failure. She has been requiring her baseline home O2. She denies any increased work of breathing or feeling short of breath. Her lower extr edema has also improved. C/w on O2 to keep O2 sat between 88-92% and c/w with her inhalers. 7. Left hip fracture, status post ORIF day 2. Pain is being controlled with Tramadol and Toradol. She will need some rehab and work with PT/OT. currently, her pain is controlled on current regimen. VS, I&O, 24H, Fishbone Vital Signs/I&O Vital Signs Date Time Temp Pulse Resp B/P (MAP) Pulse Ox O2 Delivery O2 Flow Rate FiO2 08/15/21 08:25 18 Nasal Cannula 6.0 08/15/21 06:00 97.3 80 82/58 (66) 93 08/12/21 08:00 50 I&O- Last 24 Hours up to 6 AM 08/15/21 06:00 Intake Total 1200 ml Output Total 2700 ml Balance -1500 ml Laboratory Data 24H LABS Laboratory Tests 2 08/14/21 17:41: Bedside Glucose (Misc Panel) 131H 08/14/21 20:16: Bedside Glucose (Misc Panel) 138H 08/14/21 22:20: Blood Gas Bicarbonate Standard 25.7, Arterial Blood pH 7.353, Arterial Blood Partial Pressure CO2 50.7H, Arterial Blood Partial Pressure O2 84.9, Arterial Blood Total CO2 29.1, Arterial Blood HCO3 27.6H, Arterial Blood Base Excess 1.4, Arterial Blood Oxygen Saturation 96.2 08/15/21 08:02: Bedside Glucose (Misc Panel) 196H 08/15/21 08:19: Immature Granulocyte % (Auto) 3.6H, Neutrophils (%) (Auto) 78.3H, Lymphocytes (%) (Auto) 9.4L, Monocytes (%) (Auto) 7.6, Eosinophils (%) (Auto) 0.8, Basophils (%) (Auto) 0.3, Neutrophils # (Auto) 17.9H, Lymphocytes # (Auto) 2.2, Monocytes # (Auto) 1.8H, Eosinophils # (Auto) 0.2, Basophils # (Auto) 0.1, Nucleated Red Blood Cells % (auto) 2.3H, Anion Gap 11, Glomerular Filtration Rate 11.7L, Calcium Level 7.9L CBC/BMP Laboratory Tests 08/15/21 08:19 Microbiology Microbiology 08/11/21 Gram Stain - Final, Complete 08/11/21 Sputum Culture - Final, Complete Moraxella Catarrhalis Streptococcus Pneumoniae GME ATTESTATION GME ATTESTATION My faculty preceptor for this patient encounter was physically present during the encounter and was fully available. All aspects of the patient interview, examination, medical decision making process, and medical care plan development were reviewed and approved by the faculty preceptor. The faculty preceptor is aware and concurs with the plan as stated in the body of this note and will attest to such by his/her cosignature. Judy Solis DO Aug 15, 2021 11:22
[2021-08-15] MEDS: DIGOXIN 0.25 MG TAB PO SCH ×3 (12:48→23:46)
[2021-08-15] MEDS: LEVALBUTEROL 1.25 MG/0.5 ML CONCENTRATE NEB INH SCH ×2 (13:22→20:00)
[2021-08-15] MEDS: IPRATROPIUM 0.02% SOLN 0.5MG 2.5ML NEB INH SCH ×2 (13:22→20:00)
[2021-08-15 14:52] VITALS: BP 104/64
[2021-08-15] MEDS ORDERED: IPRATROPIUM 0.5MG/ALBUTEROL 2.5MG INH SOL UD 3ML (DUONEB) NEB SCH ×2 (16:00→20:00)
[2021-08-15] MEDS: guaiFENesin ER 600 MG TAB PO PRN (21:09)
[2021-08-15 22:00] VITALS: BP 115/61
[2021-08-15] MEDS ORDERED: MAALOX 30 ML SUSP *UDC PO ONE (23:25)
[2021-08-16] MEDS: KETOROLAC 30 MG/ML 1ML VIAL IV SCH (03:07)
[2021-08-16 06:00] VITALS: BP 110/49
[2021-08-16] MEDS: PANTOPRAZOLE 40MG TAB (PROTONIX) PO SCH (06:17)
[2021-08-16] MEDS: HEPARIN SOD (PORCINE) 5000UNITS/ML 1ML VIAL/SYRINGE SQ SCH ×2 (06:17→20:46)
[2021-08-16] MEDS: MIRALAX *UNIT DOSE* 17GM PACKET PO SCH (06:17)
[2021-08-16] MEDS: SENOKOT S TAB PO SCH ×2 (06:17→20:46)
[2021-08-16] MEDS: ACETAMINOPHEN TAB 650MG DOSE (2X325MG) PO SCH ×3 (06:18→20:47)
[2021-08-16] MEDS: ATORVASTATIN 20 MG TAB PO SCH (06:18)
[2021-08-16] MEDS: AMIODARONE 200 MG TAB (PACERONE) PO SCH (06:18)
[2021-08-16] MEDS: allopurinoL 100 MG TAB PO SCH (06:18)
[2021-08-16] MEDS: HumaLOG INSULIN (NovoLOG) PER UNIT SC SCH ×4 (07:30→20:39)
[2021-08-16] MEDS ORDERED: SODIUM CHLORIDE 0.9% 1000ML IV PRN (07:40)
[2021-08-16] MEDS: SYMBICORT 160/4.5MCG INHALER 6GM INH SCH ×2 (08:00→19:47)
[2021-08-16] MEDS: IPRATROPIUM 0.02% SOLN 0.5MG 2.5ML NEB INH SCH ×3 (08:00→19:47)
[2021-08-16] MEDS: LEVALBUTEROL 1.25 MG/0.5 ML CONCENTRATE NEB INH SCH ×3 (08:00→19:47)
[2021-08-16 08:21] LABS: BASO # 0.1 10^3/uL (0.0-0.2); BASO % 0.4 % (0.0-1.0); EOS # 0.3 10^3/uL (0.0-0.5); EOS % 1.7 % (0.0-3.0); HEMATOCRIT 30.9 % (36.0-47.0); HEMOGLOBIN 9.3 g/dl (12.0-15.5); LYMPH # 1.7 10^3/uL (1.5-5.0); LYMPH % 9.1 % (24.0-44.0); MEAN CORPUSCULAR HEMOGLOBIN 29.2 pg (27.0-33.0); MEAN CORPUSCULAR HGB CONC 30.1 g/dl (32.0-36.5); MEAN CORPUSCULAR VOLUME 97.2 fl (80.0-96.0); MONO % 9.7 % (2.0-8.0); NEUTROPHILS # 14.3 10^3/uL (1.5-8.5); NEUTROPHILS % 75.4 % (36.0-66.0); PLATELET COUNT, AUTOMATED 163 10^3/uL (150-450); RED BLOOD COUNT 3.18 10^6/uL (4.00-5.40); WHITE BLOOD COUNT 18.9 10^3/uL (4.0-10.0)
[2021-08-16] MEDS: NORCO, ANEXSIA 5/325MG TABLET (HYDROcodone/ACETAMINOPHEN) PO PRN ×2 (08:40→19:02)
[2021-08-16 08:51] LABS: CALCIUM LEVEL 7.9 MG/DL (8.8-10.2); CREATININE FOR GFR 4.87 MG/DL (0.55-1.30); GLOMERULAR FILTRATION RATE 9.3 (>39); POTASSIUM SERUM 4.5 MEQ/L (3.5-5.1)
[2021-08-16 09:21] LABS: MONO # 1.8 10^3/uL (0.0-0.8)
--- NOTE | 2021-08-16 11:30 | IPNPDOC ---
Subjective Date Seen The patient was seen on 08/16/21. Subjective Chief Complaint/HPI Pulse rate has been controlled overnight. All paced rhythm. Still requiring 5 to 6 liters of oxygen. Seen at HD did not offer any complaints. Objective Physical Examination General Exam: Positive: Alert, Cooperative, No Acute Distress Eye Exam: Positive: PERRLA, Conjunctiva & lids normal, EOMI ENT Exam: Positive: Atraumatic, Mucous membr. moist/pink, Pharynx Normal Neck Exam: Positive: Supple Chest Exam: Positive: Diminished, Other; Negative: Rhonchi, Wheezing Heart Exam: Positive: Rate Normal, Regular Rhythm, Normal S1, Normal S2 Telemetry: Positive: Other Telemetry: Abdomen Exam: Positive: Normal bowel sounds, Soft Extremity Exam: Positive: Edema (trace) Skin Exam: Positive: Other skin issue (Large hand sized bruise on the left post chest ) Neuro Exam: Positive: Normal Speech, Normal Tone, Sensation Intact Psych Exam: Positive: Memory Intact, Oriented x 3 Assessment /Plan Assessment 76-year-old female from home with past medical history of ESRD, COPD on home oxygen, atrial fibrillation status post watchman device placement as well as pacemaker, congestive heart failure, chronic anemia, iron deficiency presented to the emergency room after a mechanical fall at home this morning when she was ambulating with her walker to the bathroom. The wheel of the walker had gotten stuck at the bathroom door so she was trying to move backward a few steps to dislodge the wheel when she tripped over and fell on her left side with severe pain at her left hip. Her daughter who lives with her called the ambulance. In the ED she was found to have left femoral intertrochanteric fracture as well as a separate left greater trochanter fracture. She was also noted to have an old right pubic rami fracture. Patient was admitted for left femoral neck fracture. Overnight on 08/10/21 patient was noted to be lethargic and ABG showed acute on chronic respiratory failure with hypercarbia and hypoxia thought to be related to narcotics. She also had an episode of vomiting went she was lethargic so thoughts about as aspiration pneumonia was also entertained. She was moved to ICU and placed on BIPAP. Left femoral neck fracture s/p Intramedullary rodding of femur on 08/11/21 pain control with tylenol, Toradol, tramadol and norco We will have to be cautious about use of narcotics Incentive spirometer PT/OT bowel regimen. Acute on chronic respiratory failure with hypercarbia due to narcotics given for her pain from the hip fracture. Now resolved Patient to continue CPAP at 10 cm of water at night and nasal cannula during the day maintain sats st 86% to 90% Possible aspiration pneumonia Patient sputum culture is growing Streptococcus pneumoniae heavy and Moraxella catarrhalis She did vomit in an obtunded state Continues to have persistent leukocytosis continue with cefdinir. Leukocytosis Likely combination of infection and reactive to recent steroids and acute fracture ESRD HD as per nephrology Anemia of chronic disease and iron deficiency received 3 unit of PRBC also getting darbepoetin during HD Continue ferrous sulfate COPD with acute on chronic hypoxic and hypercarbic respiratory failure This was due to narcotics which is now is We will continue Symbicort in place of Breo continue lev albuterol We will continue with incentive spirometry and chest PT Diabetes We will place the patient on lispro as per sliding scale Fingerstick before meals and at bedtime carb consistent diet Hypertension Blood pressure well controlled without any medication. diltiazem has been stopped Atrial fibrillation status post placement of watchman device and pacemaker Continue amiodarone. Diltiazem stopped due to low blood pressure. pulse rate getting uncontrolled intermittently. Patient is now in paced rhythm GERD Continue PPI Gout Continue allopurinol Plan/VTE VTE Prophylaxis Ordered?: Yes VS, I&O, 24H, Fishbone Vital Signs/I&O Vital Signs Date Time Temp Pulse Resp B/P (MAP) Pulse Ox O2 Delivery O2 Flow Rate FiO2 08/16/21 08:40 20 08/16/21 06:00 98.5 80 110/49 (69) 97 Nasal Cannula 6.0 08/12/21 08:00 50 I&O- Last 24 Hours up to 6 AM 08/16/21 06:00 Intake Total 1440 ml Balance 1440 ml Laboratory Data 24H LABS Laboratory Tests 2 08/15/21 16:36: Bedside Glucose (Misc Panel) 133H 08/15/21 20:01: Bedside Glucose (Misc Panel) 116H 08/16/21 07:47: Bedside Glucose (Misc Panel) 96 08/16/21 07:51: Immature Granulocyte % (Auto) 3.7H, Neutrophils (%) (Auto) 75.4H, Lymphocytes (%) (Auto) 9.1L, Monocytes (%) (Auto) 9.7H, Eosinophils (%) (Auto) 1.7, Basophils (%) (Auto) 0.4, Neutrophils # (Auto) 14.3H, Lymphocytes # (Auto) 1.7, Monocytes # (Auto) 1.8H, Eosinophils # (Auto) 0.3, Basophils # (Auto) 0.1, Nucleated Red Blood Cells % (auto) 0.8H, Anion Gap 11, Glomerular Filtration Rate 9.3L, Calcium Level 7.9L CBC/BMP Laboratory Tests 08/16/21 07:51 Microbiology Microbiology 08/11/21 Gram Stain - Final, Complete 08/11/21 Sputum Culture - Final, Complete Moraxella Catarrhalis Streptococcus Pneumoniae Ritika Magana MD Aug 16, 2021 11:30
--- NOTE | 2021-08-16 11:45 | IPNPDOC ---
Subjective Date Seen The patient was seen on 08/16/21. Subjective Chief Complaint/HPI SUBJECTIVE: Patient is seen at bedside in the HD unit this morning receiving her HD treatment. Her cathether is working but positional. She denies any increased sob and lower extremity edema. Her bp was a bit on the lower side with SBP in the 98s. Denies any lightheadedness or n/v. OBJECTIVE: VS: See below GENERAL: Patient was seen in the HD unit receiving her treatment. Sitting up in bed, on 6L NC satting 97%. Shes not in any acute distress, and no increased work of breathing. NEUROLOGIC: Alert and Oriented x3, interactive and conversational. No focal deficits. HEENT: Head normocephalic, atraumatic. Extraocular muscles are intact. Oral mucosa is moist. No significant adenopathy palpated. HEART: Sounds are regular, NS1, S2. Trace pitting edema. There is no JVD appreciated. Trace pitting edema LUNGS: clear on auscultation. No rhonci, rales or crackles. ABDOMEN: Soft, obese and nontender. Normal bowel sounds. No guarding on pa lpation. EXTREMITIES/SKIN: No bruising, cyanosis, petechia, clubbing appreciated. Trace edema bilat extr PSYCH: Mood and affect are appropriate IMPRESSION AND PLAN: 1. End-stage renal disease on HD. HD today. Her bp is running on the lower side and will be cautious with excess fluid removal and will remove as much as patient can tolerate. She usu gets approx 2.5L removed. Her fluid status on exam is acceptable and she has not had reported sob that deviates from her b aseline. She has not had increased lower extr edema in bilateral lower extremities. 2. Heart failure with preserved EF. Patient is dialysis dependent for volume control and is being dialyzed today. 3. Afib. c.w amiodarone and digoxin. Rate and rhythm controlled currently with HR in the 70s-80s. 4. Hyponatremia. She has mild hyponatremia which is stable and unchanged. This will likely improve with dialysis. No other intervention will be needed. 5. Anemia. Her anemia is slightly worse and is related to recent hip fracture and surgery. She received 2 PRBCs during dialysis 08/14 with improvement in her Hg. Will continue to closely monitor. 6. COPD. She has chronic hypoxic and hypercapnic respirator failure. She has been requiring her baseline home O2. She denies any increased work of breathing or feeling short of breath. Her lower extr edema has also improved. C/w on O2 to keep O2 sat between 88-92% and c/w with her inhalers. 7. Left hip fracture, status post ORIF day 3. Pain is being controlled with Tramadol and Toradol. She will need some rehab and work with PT/OT. currently, her pain is controlled on current regimen. VS, I&O, 24H, Fishbone VS, I&O, 24H, Fishbone Vital Signs/I&O Vital Signs Date Time Temp Pulse Resp B/P (MAP) Pulse Ox O2 Delivery O2 Flow Rate FiO2 08/16/21 08:40 20 08/16/21 06:00 98.5 80 110/49 (69) 97 Nasal Cannula 6.0 08/12/21 08:00 50 I&O- Last 24 Hours up to 6 AM 08/16/21 06:00 Intake Total 1440 ml Balance 1440 ml Laboratory Data 24H LABS Laboratory Tests 2 08/15/21 16:36: Bedside Glucose (Misc Panel) 133H 08/15/21 20:01: Bedside Glucose (Misc Panel) 116H 08/16/21 07:47: Bedside Glucose (Misc Panel) 96 08/16/21 07:51: Immature Granulocyte % (Auto) 3.7H, Neutrophils (%) (Auto) 75.4H, Lymphocytes (%) (Auto) 9.1L, Monocytes (%) (Auto) 9.7H, Eosinophils (%) (Auto) 1.7, Basophils (%) (Auto) 0.4, Neutrophils # (Auto) 14.3H, Lymphocytes # (Auto) 1.7, Monocytes # (Auto) 1.8H, Eosinophils # (Auto) 0.3, Basophils # (Auto) 0.1, Nucleated Red Blood Cells % (auto) 0.8H, Anion Gap 11, Glomerular Filtration Rate 9.3L, Calcium Level 7.9L CBC/BMP Laboratory Tests 08/16/21 07:51 Microbiology Microbiology 08/11/21 Gram Stain - Final, Complete 08/11/21 Sputum Culture - Final, Complete Moraxella Catarrhalis Streptococcus Pneumoniae GME ATTESTATION GME ATTESTATION My faculty preceptor for this patient encounter was physically present during the encounter and was fully available. All aspects of the patient interview, examination, medical decision making process, and medical care plan development were reviewed and approved by the faculty preceptor. The faculty preceptor is aware and concurs with the plan as stated in the body of this note and will att est to such by his/her cosignature. Judy Solis DO Aug 16, 2021 11:45
[2021-08-16 12:52] VITALS: O2SAT 90
[2021-08-16] MEDS: guaiFENesin ER 600 MG TAB PO PRN (13:12)
[2021-08-16] MEDS: CALCIUM CARBONATE 500 MG CHEW U/D PO PRN (13:13)
[2021-08-16 14:00] VITALS: BP 90/57
[2021-08-16] MEDS: traMADol 50 MG TAB PO PRN (14:59)
[2021-08-16] MEDS: **CEFDINIR AFTER HD** MISC XX SCH (15:00)
[2021-08-16] MEDS: CEFDINIR 300 MG CAP (OMNICEF) PO SCH (15:00)
[2021-08-16] MEDS ORDERED: PILL CUTTER 1 EACH XX PRN (15:00)
[2021-08-16] MEDS: BISACODYL 10 MG SUPP PR SCH (20:46)
[2021-08-16 20:50] VITALS: O2SAT 90
[2021-08-16 22:00] VITALS: BP 105/62
[2021-08-17] MEDS: ACETAMINOPHEN TAB 650MG DOSE (2X325MG) PO SCH ×3 (05:16→21:18)
[2021-08-17 06:00] VITALS: BP 109/63
[2021-08-17] MEDS: SYMBICORT 160/4.5MCG INHALER 6GM INH SCH ×2 (06:10→19:42)
[2021-08-17 08:05] LABS: BASO # 0.1 10^3/uL (0.0-0.2); BASO % 0.5 % (0.0-1.0); EOS # 0.3 10^3/uL (0.0-0.5); EOS % 1.9 % (0.0-3.0); HEMATOCRIT 31.3 % (36.0-47.0); HEMOGLOBIN 9.4 g/dl (12.0-15.5); LYMPH # 2.3 10^3/uL (1.5-5.0); LYMPH % 12.4 % (24.0-44.0); MEAN CORPUSCULAR HEMOGLOBIN 29.9 pg (27.0-33.0); MEAN CORPUSCULAR VOLUME 99.7 fl (80.0-96.0); MONO % 12.2 % (2.0-8.0); NEUTROPHILS # 12.5 10^3/uL (1.5-8.5); NEUTROPHILS % 68.9 % (36.0-66.0); PLATELET COUNT, AUTOMATED 183 10^3/uL (150-450); RED BLOOD COUNT 3.14 10^6/uL (4.00-5.40); WHITE BLOOD COUNT 18.2 10^3/uL (4.0-10.0)
[2021-08-17 08:24] LABS: CALCIUM LEVEL 8.3 MG/DL (8.8-10.2); CREATININE FOR GFR 3.41 MG/DL (0.55-1.30); POTASSIUM SERUM 4.7 MEQ/L (3.5-5.1)
[2021-08-17] MEDS: HumaLOG INSULIN (NovoLOG) PER UNIT SC SCH ×4 (08:31→20:48)
[2021-08-17 08:57] LABS: MONO # 2.2 10^3/uL (0.0-0.8)
[2021-08-17] MEDS: IPRATROPIUM 0.02% SOLN 0.5MG 2.5ML NEB INH SCH ×3 (09:23→19:42)
[2021-08-17] MEDS: LEVALBUTEROL 1.25 MG/0.5 ML CONCENTRATE NEB INH SCH ×3 (09:24→19:42)
--- NOTE | 2021-08-17 09:34 | IPNPDOC ---
Subjective Date Seen The patient was seen on 08/17/21. Subjective Chief Complaint/HPI Requiring less oxygen today and overnight she only is down to 3 L which is her usual oxygen requirement. No acute issues overnight. Pulse has been controlled. Objective Physical Examination General Exam: Positive: Alert, Cooperative, No Acute Distress Eye Exam: Positive: PERRLA, Conjunctiva & lids normal, EOMI ENT Exam: Positive: Atraumatic, Mucous membr. moist/pink, Pharynx Normal Neck Exam: Positive: Supple Chest Exam: Positive: Diminished, Other; Negative: Rhonchi, Wheezing Heart Exam: Positive: Rate Normal, Regular Rhythm, Normal S1, Normal S2 Telemetry: Positive: Other Telemetry: Abdomen Exam: Positive: Normal bowel sounds, Soft Extremity Exam: Positive: Edema (trace) Skin Exam: Positive: Other skin issue (Large hand sized bruise on the left post chest ) Neuro Exam: Positive: Normal Speech, Normal Tone, Sensation Intact Psych Exam: Positive: Memory Intact, Oriented x 3 Assessment /Plan Assessment 76-year-old female from home with past medical history of ESRD, COPD on home oxygen, atrial fibrillation status post watchman device placement as well as pacemaker, congestive heart failure, chronic anemia, iron deficiency presented to the emergency room after a mechanical fall at home this morning when she was ambulating with her walker to the bathroom. The wheel of the walker had gotten stuck at the bathroom door so she was trying to move backward a few steps to dislodge the wheel when she tripped over and fell on her left side with severe pain at her left hip. Her daughter who lives with her called the ambulance. In the ED she was found to have left femoral intertrochanteric fracture as well as a separate left greater trochanter fracture. She was also noted to have an old right pubic rami fracture. Patient was admitted for left femoral neck fracture. Overnight on 08/10/21 patient was noted to be lethargic and ABG showed acute on chronic respiratory failure with hypercarbia and hypoxia thought to be related to narcotics. She also had an episode of vomiting went she was lethargic so thoughts about as aspiration pneumonia was also entertained. She was moved to ICU and placed on BIPAP. Left femoral neck fracture s/p Intramedullary rodding of femur on 08/11/21 pain control with tylenol, Toradol, tramadol and norco We will have to be cautious about use of narcotics Incentive spirometer PT/OT bowel regimen. Acute on chronic respiratory failure with hypercarbia due to narcotics given for her pain from the hip fracture. Now resolved Patient to continue CPAP at 10 cm of water at night and nasal cannula during the day maintain sats st 86% to 90% Possible aspiration pneumonia Patient sputum culture is growing Streptococcus pneumoniae heavy and Moraxella catarrhalis She did vomit in an obtunded state Continues to have persistent leukocytosis continue with cefdinir. Leukocytosis Likely combination of infection and reactive to recent steroids and acute fracture ESRD HD as per nephrology Anemia of chronic disease and iron deficiency received 3 unit of PRBC also getting darbepoetin during HD Continue ferrous sulfate COPD with acute on chronic hypoxic and hypercarbic respiratory failure This was due to narcotics which is now is We will continue Symbicort in place of Breo continue lev albuterol We will continue with incentive spirometry and chest PT Diabetes We will place the patient on lispro as per sliding scale Fingerstick before meals and at bedtime carb consistent diet Hypertension Blood pressure well controlled without any medication. diltiazem has been stopped Atrial fibrillation status post placement of watchman device and pacemaker Continue amiodarone. Diltiazem stopped due to low blood pressure. Started on digoxin for rate control Patient is now in paced rhythm GERD Continue PPI Gout Continue allopurinol Plan/VTE VTE Prophylaxis Ordered?: Yes VS, I&O, 24H, Fishbone Vital Signs/I&O Vital Signs Date Time Temp Pulse Resp B/P (MAP) Pulse Ox O2 Delivery O2 Flow Rate FiO2 08/17/21 06:00 97.2 99 20 109/63 (78) 94 NIPPV (BIPAP/CPAP) 3.0 08/12/21 08:00 50 I&O- Last 24 Hours up to 6 AM 08/17/21 06:00 Intake Total 800 ml Output Total 1625 ml Balance -825 ml Laboratory Data 24H LABS Laboratory Tests 2 08/16/21 12:49: Bedside Glucose (Misc Panel) 107 08/16/21 17:05: Bedside Glucose (Misc Panel) 83 08/16/21 19:49: Bedside Glucose (Misc Panel) 145H 08/17/21 07:10: Immature Granulocyte % (Auto) 4.1H, Neutrophils (%) (Auto) 68.9H, Lymphocytes (%) (Auto) 12.4L, Monocytes (%) (Auto) 12.2H, Eosinophils (%) (Auto) 1.9, Basophils (%) (Auto) 0.5, Neutrophils # (Auto) 12.5H, Lymphocytes # (Auto) 2.3, Monocytes # (Auto) 2.2H, Eosinophils # (Auto) 0.3, Basophils # (Auto) 0.1, Nu cleated Red Blood Cells % (auto) 0.4H, Anion Gap 8, Glomerular Filtration Rate 14.0L, Calcium Level 8.3L CBC/BMP Laboratory Tests 08/17/21 07:10 Microbiology Microbiology 08/11/21 Gram Stain - Final, Complete 08/11/21 Sputum Culture - Final, Complete Moraxella Catarrhalis Streptococcus Pneumoniae Ritika Magana MD Aug 17, 2021 09:34
[2021-08-17] MEDS: PANTOPRAZOLE 40MG TAB (PROTONIX) PO SCH ×2 (10:14→20:10)
[2021-08-17] MEDS: traMADol 50 MG TAB PO PRN (10:15)
[2021-08-17] MEDS: AMIODARONE 200 MG TAB (PACERONE) PO SCH (10:16)
[2021-08-17] MEDS: allopurinoL 100 MG TAB PO SCH (10:16)
[2021-08-17] MEDS: SENOKOT S TAB PO SCH ×2 (10:16→20:10)
[2021-08-17] MEDS: DIGOXIN 0.125 MG TAB PO SCH (10:17)
[2021-08-17] MEDS: ATORVASTATIN 20 MG TAB PO SCH (10:17)
[2021-08-17] MEDS: MIRALAX *UNIT DOSE* 17GM PACKET PO SCH (10:17)
[2021-08-17] MEDS: HEPARIN SOD (PORCINE) 5000UNITS/ML 1ML VIAL/SYRINGE SQ SCH ×2 (10:18→20:11)
--- NOTE | 2021-08-17 11:42 | IPNPDOC ---
Subjective Date Seen The patient was seen on 08/17/21. Subjective Chief Complaint/HPI SUBJECTIVE: Patient is seen and examined at bedside this morning. She is sitting down in chair in the HD unit this morning receiving her HD treatment. Her cathether is working but positional. She denies any increased sob and lower extremity edema. Her bp was a bit on the lower side with SBP in the 98s. Denies any lightheadedness or n/v. OBJECTIVE: VS: See below GENERAL: Patient was seen in the HD unit receiving her treatment. Sitting up in bed, on 5 L nasal cannula satting above 90%. Shes not in any acute distress, and no increased work of breathing. NEUROLOGIC: Alert and Oriented x3, interactive and conversational. No focal deficits. HEENT: Head normocephalic, atraumatic. Extraocular muscles are intact. Oral mucosa is moist. No significant adenopathy palpated. HEART: Sounds are regular, NS1, S2. Trace pitting edema. There is no JVD appreciated. Trace pitting edema LUNGS: Some wheezing on the right lower basis. Otherwise no rhonchi, rales appreciated. ABDOMEN: Soft, obese and nontender. Normal bowel sounds. No guarding on palpation. EXTREMITIES/SKIN: No bruising, cyanosis, petechia, clubbing appreciated. Trace edema bilat extr PSYCH: Mood and affect are appropriate IMPRESSION AND PLAN: 1. End-stage renal disease on HD. HD was yesterday. Her blood pressure was running a bit on the lower side and less fluids were removed total 1.3 L yesterday. Tolerated without being too symptomatic. Her fluid status on exam is acceptable still in this morning she was able to sat above 90% on 3 L nasal cannula. 2. Heart failure with preserved EF. Patient is dialysis dependent for volume control and next HD will be tomorrow. Fluid status is acceptable on exam. 3. Mid epigastric pain. Patient complains of postprandial mid epigastric pain. She has a history of GERD which was controlled with PPI however, this pain is new. Will order for CT abdomen/pelvis with p.o. and IV contrast or barium esophagram per primary to further investigate. Primary started sucralfate. 4. Afib. c.w amiodarone and digoxin. Rate and rhythm controlled currently with HR in the 70s-80s. 5. Hyponatremia. She had mild hyponatremia which should resolve yesterday. 6. Anemia. Her anemia is slightly worse and is related to recent hip fracture and surgery. She received 2 PRBCs during dialysis 08/14 with improvement in her Hg. Will continue to closely monitor. 7. COPD. She has chronic hypoxic and hypercapnic respirator failure. She has been requiring her baseline home O2. She denies any increased work of breathing or feeling short of breath. Her lower extr edema has also improved. C/w on O2 to keep O2 sat between 88-92% and c/w with her inhalers. 8. Left hip fracture, status post ORIF day 4. Pain is being controlled with Tramadol and Toradol. She will need some rehab and work with PT/OT. currently, her pain is controlled on current regimen. VS, I&O, 24H, Fishbone Vital Signs/I&O Vital Signs Date Time Temp Pulse Resp B/P (MAP) Pulse Ox O2 Delivery O2 Flow Rate FiO2 08/17/21 10:17 98 08/17/21 10:15 20 08/17/21 06:00 97.2 109/63 (78) 94 NIPPV (BIPAP/CPAP) 3.0 08/12/21 08:00 50 I&O- Last 24 Hours up to 6 AM0 08/17/21 06:00 Intake Total 800 ml Output Total 1625 ml Balance -825 ml Laboratory Data 24H LABS Laboratory Tests 2 08/16/21 12:49: Bedside Glucose (Misc Panel) 107 08/16/21 17:05: Bedside Glucose (Misc Panel) 83 08/16/21 19:49: Bedside Glucose (Misc Panel) 145H 08/17/21 07:10: Immature Granulocyte % (Auto) 4.1H, Neutrophils (%) (Auto) 68.9H, Lymphocytes (% ) (Auto) 12.4L, Monocytes (%) (Auto) 12.2H, Eosinophils (%) (Auto) 1.9, Basophils (%) (Auto) 0.5, Neutrophils # (Auto) 12.5H, Lymphocytes # (Auto) 2.3, Monocytes # (Auto) 2.2H, Eosinophils # (Auto) 0.3, Basophils # (Auto) 0.1, Nucleated Red Blood Cells % (auto) 0.4H, Anion Gap 8, Glomerular Filtration Rate 14.0L, Calcium Level 8.3L CBC/BMP Laboratory Tests 08/17/21 07:10 Microbiology Microbiology 08/11/21 Gram Stain - Final, Complete 08/11/21 Sputum Culture - Final, Complete Moraxella Catarrhalis Streptococcus Pneumoniae GME ATTESTATION GME ATTESTATION My faculty preceptor for this patient encounter was physically present during the encounter and was fully available. All aspects of the patient interview, examination, medical decision making process, and medical care plan development were reviewed and approved by the faculty preceptor. The faculty preceptor is aware and concurs with the plan as stated in the body of this note and will attest to such by his/her cosignature. Judy Solis DO Aug 17, 2021 11:42
[2021-08-17] MEDS: GASTROGRAFIN SOLUTION 30ML PO SCH ×2 (11:46→12:12)
--- NOTE | 2021-08-17 12:02 | DS.PDOC ---
Discharge Summary General Date of Admission Aug 10, 2021 at 13:09 Date of Discharge 08/17/21 Discharge Summary PROCEDURES PERFORMED DURING STAY: s/p Intramedullary rodding of femur on 08/11/21 DISCHARGE DIAGNOSES: Left femoral neck fracture Acute on chronic respiratory failure with hypercarbia due to narcotics Stress gastritis. Possible aspiration pneumonia Acute on Chronic anemia received 3 units of PRBC. SECONDARY DIAGNOSIS: ESRD Secondary hyperparathyroidism Anemia of chronic disease COPD with chronic hypoxic and hypercarbic respiratory failure on 3 L oxygen at home History of COVID pneumonia in beginning of June 2021 along with rhinovirus infection. RSV infection and bacterial pneumonia in end of June 2021 Hypertension Type 2 Diabetes Mellitus Coronary artery disease Congestive heart failure Hyperuricemia GERD CATHRYN Paroxysmal atrial fibrillation status post watchman left atrial appendage closure implant 2019 Pacemaker Implant - 2014 Peripheral artery disease status post Femoral-Femoral bypass- 2002 Hyperlipidemia Iron deficiency Osteoporosis COMPLICATIONS/CHIEF COMPLAINT: Esrd, Fracture Of Left Femur. HOSPITAL COURSE: 76-year-old female from home with past medical history of ESRD, COPD on home oxygen, atrial fibrillation status post watchman device placement as well as pacemaker, congestive heart failure, chronic anemia, iron deficiency presented to the emergency room after a mechanical fall at home this morning when she was ambulating with her walker to the bathroom. The wheel of the walker had gotten stuck at the bathroom door so she was trying to move backward a few steps to dislodge the wheel when she tripped over and fell on her left side with severe pain at her left hip. Her daughter who lives with her called the ambulance. In the ED she was found to have left femoral intertrochanteric fracture as well as a separate left greater trochanter fracture. She was also noted to have an old right pubic rami fracture. Patient was admitted for left femoral neck fracture. Overnight on 08/10/21 patient was noted to be lethargic and ABG showed acute on chronic respiratory failure with hypercarbia and hypoxia thought to be related to narcotics. She also had an episode of vomiting went she was lethargic so thoughts about as aspiration pneumonia was also enter tained. She was moved to ICU and placed on BIPAP. She recovered from the acute resp failure and had OR on 08/11/21. Hospital course has been complicated with fluid overload and difficult to wean down to home oxygenation level but after an additional session of HD with aggressive fluid removal and PRBC transfusion she is now down to her usual 3 liters of Oxygen. She does not like to use the CPAP and has been tolerating it only about 4 hours at night. Her Diltiazem was stopped due to hypotension . This caused her pulse rate to become uncontrolled so she has been started on digoxin with control of heart rate. At this time she complains of an ongoing epigastric pain likely due to stress gastritis. Left femoral neck fracture s/p Intramedullary rodding of femur on 08/11/21 pain control with tylenol, Toradol, tramadol and norco We will have to be cautious about use of narcotics Incentive spirometer PT/OT bowel regimen. Epigastric pain likely stress gastritis continue PPI and sucralfate. Acute on chronic respiratory failure with hypercarbia due to narcotics given for her pain from the hip fracture. Now resolved Patient to continue CPAP at 10 cm of water at night and nasal cannula during the day maintain sats st 86% to 90% Possible aspiration pneumonia Patient sputum culture is growing Streptococcus pneumoniae heavy and Moraxella catarrhalis She did vomit in an obtunded state Continues to have persistent leukocytosis continue with cefdinir as per renal dose. Leukocytosis Likely combination of infection and reactive to recent steroids and acute fracture improving slowly. ESRD HD as per nephrology Anemia of chronic disease and iron deficiency and also likely blood loss in fracture hematoma. received 3 unit of PRBC also getting darbepoetin during HD Continue ferrous sulfate COPD with acute on chronic hypoxic and hypercarbic respiratory failure This was due to narcotics which is now is We will continue Symbicort in place of Breo continue lev albuterol We will continue with incentive spirometry and chest PT Diabetes We will place the patient on lispro as per sliding scale Fingerstick before meals and at bedtime carb consistent diet Hypertension Blood pressure well controlled without any medication. diltiazem has been stopped Atrial fibrillation status post placement of watchman device and pacemaker Continue amiodarone. Diltiazem stopped due to low blood pressure. Started on digoxin for rate control Patient is now in paced rhythm GERD Continue PPI Gout Continue allopurinol DISCHARGE MEDICATIONS: Please see below. ALLERGIES: Please see below. PHYSICAL EXAMINATION ON DISCHARGE: VITAL SIGNS: Please see below. General Exam: Positive: Alert, Cooperative, No Acute Distress Eye Exam: Positive: PERRLA, Conjunctiva & lids normal, EOMI ENT Exam: Positive: Atraumatic, Mucous membr. moist/pink, Pharynx Normal Neck Exam: Positive: Supple Chest Exam: Positive: Diminished, Other; Negative: Rhonchi, Wheezing Heart Exam: Positive: Rate Normal, Regular Rhythm, Normal S1, Normal S2 Telemetry: Positive: Other Telemetry: Abdomen Exam: Positive: Normal bowel sounds, Soft Extremity Exam: Positive: Edema (trace) Skin Exam: Positive: Other skin issue (Large hand sized bruise on the left post chest ) Neuro Exam: Positive: Normal Speech, Normal Tone, Sensation Intact Psych Exam: Positive: Memory Intact, Oriented x 3 LABORATORY DATA: Please see below. ACTIVITY: [As tolerated]. DIET: Consistent carb with 1.8 L fluid restriction DISCHARGE PLAN: ARU DISCHARGE CONDITION: [Stable]. TIME SPENT ON DISCHARGE: 40 minutes. Vital Signs/I&Os Vital Signs Date Time Temp Pulse Resp B/P (MAP) Pulse Ox O2 Delivery O2 Flow Rate FiO2 08/17/21 10:17 98 08/17/21 10:15 20 08/17/21 06:00 97.2 109/63 (78) 94 NIPPV (BIPAP/CPAP) 3.0 08/12/21 08:00 50 I&O- Last 24 Hours up to 6 AM 08/17/21 06:00 Intake Total 800 ml Output Total 1625 ml Balance -825 ml Laboratory Data Labs 24H Laboratory Tests 2 08/16/21 12:49: Bedside Glucose (Misc Panel) 107 08/16/21 17:05: Bedside Glucose (Misc Panel) 83 08/16/21 19:49: Bedside Glucose (Misc Panel) 145H 08/17/21 07:10: Immature Granulocyte % (Auto) 4.1H, Neutrophils (%) (Auto) 68.9H, Lymphocytes (%) (Auto) 12.4L, Monocytes (%) (Auto) 12.2H, Eosinophils (%) (Auto) 1.9, Baso phils (%) (Auto) 0.5, Neutrophils # (Auto) 12.5H, Lymphocytes # (Auto) 2.3, Monocytes # (Auto) 2.2H, Eosinophils # (Auto) 0.3, Basophils # (Auto) 0.1, Nucleated Red Blood Cells % (auto) 0.4H, Anion Gap 8, Glomerular Filtration Rate 14.0L, Calcium Level 8.3L CBC/BMP Laboratory Tests 08/17/21 07:10 FSBS Laboratory Tests Test 08/16/21 12:49 08/16/21 17:05 08/16/21 19:49 Range/Units Bedside Glucose (Misc Panel) 107 83 145 83-110 MG/DL Microbiology Microbiology 08/11/21 Gram Stain - Final, Complete 08/11/21 Sputum Culture - Final, Complete Moraxella Catarrhalis Streptococcus Pneumoniae Discharge Medications Scheduled Allopurinol (Allopurinol) 100 Mg Tablet, 100 MG PO DAILY, (Reported) Amiodarone HCl (Amiodarone HCl) 200 Mg Tablet, 200 MG PO DAILY, (Reported) Atorvastatin Calcium (Atorvastatin Calcium) 20 Mg Tablet, 20 MG PO DAILY, (Reported) Calcitriol (Calcitriol) 0.25 Mcg Capsule, 0.25 MCG PO DAILY, (Reported) Calcium Carbonate (Calcium) 600 Mg Tablet, 600 MG PO BID, (Reported) Cholecalciferol (Vitamin D3) (Vitamin D3) 1,000 Unit Tablet, 1,000 UNITS PO QPM, (Reported) TAKES AT 1600 Ferrous Sulfate (Ferrous Sulfate) 325 Mg Tablet, 325 MG PO BID, (Reported) Fluticasone/Vilanterol (Breo Ellipta 200-25 Mcg INH) 1 Each Blst.w.dev, 1 PUFF INH DAILY, (Reported) Folic Acid (Folic Acid) 1 Mg Tablet, 1 MG PO DAILY, (Reported) Furosemide (Furosemide) 40 Mg Tablet, 80 MG PO DAILY, (Reported) Glipizide (Glipizide ER) 2.5 Mg Tab.er.24, 2.5 MG PO DAILY, (Reported) Magnesium Oxide (Magnesium Oxide) 400 Mg Tablet, 400 MG PO QPM, (Reported) TAKES AT 1600 Pantoprazole Sodium (Pantoprazole Sodium) 40 Mg Tablet.dr, 40 MG PO DAILY, (Reported) Raloxifene HCl (Raloxifene HCl) 60 Mg Tablet, 60 MG PO DAILY, (Reported) Rosuvastatin Calcium (Rosuvastatin Calcium) 10 Mg Tablet, 10 MG PO DAILY, (Reported) Sitagliptin (Januvia) 50 Mg Tablet, 50 MG PO DAILY, (Reported) dilTIAZem HCl (Diltiazem 24Hr Cd) 120 Mg Cap.er.24h, 120 MG PO DAILY, (Reported) Scheduled PRN Albuterol Sulf (Albuterol Sulfate) 2.5 Mg/3 Ml Vial.neb, 2.5 MG INH QID PRN for SHORTNESS OF BREATH, (Reported) Albuterol Sulfate (Ventolin Hfa) 18 Gm Hfa.aer.ad, 2 PUFFS INH Q6H PRN for SOB/WHEEZING, (Reported) Allergies Coded Allergies: codeine (Verified Adverse Reaction, Intermediate, stabbing abd pain, 11/30/20) phenytoin (Verified Adverse Reaction, Intermediate, feels like being stabbed in abd, 11/30/20) gabapentin (Verified Adverse Reaction, Mild, VERTIGO, 11/30/20) oxycodone (Verified Adverse Reaction, Mild, SHAKINESS, 11/30/20) Ritika Magana MD Aug 17, 2021 12:02
[2021-08-17] MEDS: SUCRALFATE SUSP 1GM/10ML UD PO SCH ×3 (12:11→20:09)
[2021-08-17] MEDS ORDERED: ISOVUE-370 76% 100ML VIAL As Ordered ONE (13:03)
[2021-08-17] MEDS: BISACODYL 10 MG SUPP PR SCH ×2 (13:57→20:10)
[2021-08-17 14:00] VITALS: BP 98/57
[2021-08-17] MEDS: **CEFDINIR AFTER HD** MISC XX SCH (16:00)
[2021-08-17 17:49] VITALS: O2SAT 93
[2021-08-17 20:10] VITALS: O2SAT 92
[2021-08-17] MEDS: NORCO, ANEXSIA 5/325MG TABLET (HYDROcodone/ACETAMINOPHEN) PO PRN (20:10)
[2021-08-17 22:00] VITALS: BP 112/54
[2021-08-17] MEDS: CALCIUM CARBONATE 500 MG CHEW U/D PO PRN (22:57)
[2021-08-18] MEDS: ACETAMINOPHEN TAB 650MG DOSE (2X325MG) PO SCH ×3 (05:12→21:36)
[2021-08-18 06:00] VITALS: BP 124/66
[2021-08-18] MEDS: SUCRALFATE SUSP 1GM/10ML UD PO SCH ×4 (06:20→21:34)
[2021-08-18] MEDS: SENOKOT S TAB PO SCH ×2 (06:21→21:00)
[2021-08-18] MEDS: HEPARIN SOD (PORCINE) 5000UNITS/ML 1ML VIAL/SYRINGE SQ SCH ×2 (06:21→21:35)
[2021-08-18] MEDS: ATORVASTATIN 20 MG TAB PO SCH (06:23)
[2021-08-18] MEDS: DIGOXIN 0.125 MG TAB PO SCH (06:23)
[2021-08-18] MEDS: AMIODARONE 200 MG TAB (PACERONE) PO SCH (06:23)
[2021-08-18] MEDS: PANTOPRAZOLE 40MG TAB (PROTONIX) PO SCH ×2 (06:24→21:35)
[2021-08-18] MEDS: allopurinoL 100 MG TAB PO SCH (06:24)
[2021-08-18 07:15] LABS: DIGOXIN LEVEL 2.6 NG/ML (0.5-2.0)
[2021-08-18] MEDS: HumaLOG INSULIN (NovoLOG) PER UNIT SC SCH ×4 (07:30→20:32)
[2021-08-18] MEDS: SYMBICORT 160/4.5MCG INHALER 6GM INH SCH ×2 (07:47→19:50)
[2021-08-18] MEDS: IPRATROPIUM 0.02% SOLN 0.5MG 2.5ML NEB INH SCH ×3 (07:48→20:00)
[2021-08-18] MEDS: LEVALBUTEROL 1.25 MG/0.5 ML CONCENTRATE NEB INH SCH ×3 (07:48→20:00)
[2021-08-18] MEDS: MIRALAX *UNIT DOSE* 17GM PACKET PO SCH (08:03)
[2021-08-18] MEDS: BISACODYL 10 MG SUPP PR SCH ×2 (08:03→21:00)
[2021-08-18] MEDS ORDERED: DIGOXIN IMMUNE FAB (OVINE) 40MG VIAL (J1162) IV ONE (08:10)
[2021-08-18] MEDS ORDERED: SODIUM CHLORIDE 0.9% 1000ML IV PRN (08:15)
[2021-08-18 08:23] LABS: ALBUMIN 1.9 GM/DL (3.2-5.2); BILIRUBIN,DIRECT 0.1 MG/DL (0.0-0.2); BILIRUBIN,TOTAL 0.4 MG/DL (0.2-1.0); C REACTIVE PROTEIN QUANTITATIV 4.59 MG/DL (0.00-0.30); TOTAL PROTEIN 5.5 GM/DL (6.4-8.2)
--- NOTE | 2021-08-18 08:41 | REP ---
INDICATION: abd distention. COMPARISON: [facility] 08/29/2015. TECHNIQUE: Supine AP image of the abdomen was obtained. FINDINGS: There is a large amount of stool in the rectal vault. There is stool throughout the colon. There is IV contrast seen within the urinary bladder. There is no abnormal bowel dilatation or free intraperitoneal air. There is a medullary nail and compression screw in the left femur. IMPRESSION: Moderate constipation with a large amount of stool in the rectal vault. <Electronically signed by Jose Carlos Taveras > 08/18/21 0870
--- NOTE | 2021-08-18 08:45 | REP ---
INDICATION: cough. COMPARISON: Portable chest, 08/15/2021. TECHNIQUE: AP portable chest image was obtained. FINDINGS: There is cardiomegaly, pulmonary venous hypertension and pulmonary interstitial edema consistent with mild congestive heart failure/volume overload. There are bilateral pleural effusions. There is airspace disease in the left lung base consistent with atelectasis. There is a multi lead pacemaker. There is a right IJ large bore hemodialysis catheter with the tip in the area of the right atrium. IMPRESSION: Mild congestive heart failure/volume overload. Left pleural effusion with left basilar atelectasis. No significant change. <Electronically signed by Jose Carlos Taveras > 08/18/21 1478
[2021-08-18 09:12] LABS: HEMATOCRIT 29.2 % (36.0-47.0); HEMOGLOBIN 8.8 g/dl (12.0-15.5); MEAN CORPUSCULAR HEMOGLOBIN 29.7 pg (27.0-33.0); MEAN CORPUSCULAR HGB CONC 30.1 g/dl (32.0-36.5); MEAN CORPUSCULAR VOLUME 98.6 fl (80.0-96.0); PLATELET COUNT, AUTOMATED 205 10^3/uL (150-450); RED BLOOD COUNT 2.96 10^6/uL (4.00-5.40); WHITE BLOOD COUNT 13.6 10^3/uL (4.0-10.0)
[2021-08-18] MEDS: METOCLOPRAMIDE INJ 10MG/2ML VIAL (J2765 PER 1) IV SCH ×3 (09:17→21:34)
[2021-08-18 09:22] LABS: CALCIUM LEVEL 8.6 MG/DL (8.8-10.2); CREATININE FOR GFR 3.28 MG/DL (0.55-1.30); GLOMERULAR FILTRATION RATE 14.7 (>39)
--- NOTE | 2021-08-18 09:59 | IPN ---
PROGRESS NOTE DATE: 08/18/2021 SUBJECTIVE: The patient complains of abdominal distention, abdominal discomfort mostly in the epigastric region without radiation, denies dysuria, urgency, frequency, fever or chills. She has had some nausea without vomiting, no prior episode in the past. Digoxin level is 2.6 this morning. OBJECTIVE: Vitals: Temperature 98.6, pulse 70, respiratory rate 20, blood pressure 124/66, 95% on three liters nasal cannula. General: The patient is awake, alert and oriented to person, place and time, no acute distress, speaks in full sentences. No JVD or thyromegaly. No cervical lymphadenopathy. Lungs: Diminished with bilateral crackles. Heart: S1, S2, sinus rhythm. Abdomen: Distended, positive bowel sounds, soft. The patient has large ecchymosis on the left chest. Extremities: No cyanosis, clubbing, positive trace edema. Laboratory data, imaging study, microbiology: Please see the chart. ASSESSMENT AND PLAN: This is a 76-year-old female with history of end-stage renal disease on maintenance dialysis Friday, , Friday, chronic hypoxic respiratory failure, COPD, chronic A fib, status post Watchman, pacemaker, CHF with preserved systolic function, chronic anemia and iron deficiency, status post mechanical fall with a left femoral intertrochanteric fracture and a separate left greater trochanteric fracture, patient had old right pubic rami fracture, admitted and developed [id number] respiratory failure with hypercarbia and hypoxia on 08/10/2021 secondary to opioids with aspiration pneumonia, treated in the ICU on BiPAP with nib finisher. The patient has been transferred from ICU. CURRENT ISSUES: 1. Nausea, vomiting, elevated Digoxin, Digoxin toxicity, telemetry monitoring, Digibind, check 12-lead EKG. Continue with dialysis. Recheck Digoxin level, monitor for persistent EKG changes on telemetry. 2. Left femoral neck fracture, status post intramedullary niko of the femur on 08/11. Pain is controlled on Tylenol, Toradol, Tramadol. Avoid oversedation due to increased risk of hypercarbia and hypoxia. Continue on incentive spirometry, PT/OT. ARU are consulted, possible transfer on Friday. 3. Khite-ql-orsziap hypoxic respiratory failure with chronic hypercarbia. Needed BiPAP management in the ICU, currently at baseline on CPAP 10 cm at night, nasal cannula during the day to maintain saturations of 88 to 92%. 4. Aspiration pneumonia with sputum culture growing pneumo and Moraxella catarrhalis on cefdinir. 5. End-stage renal disease on maintenance dialysis Friday, , Friday managed by nephrology. 6. Anemia of chronic disease and iron deficiency, status post three units RBC transfusion and darbepoetin during dialysis and ferrous sulfate. 7. COPD with yghga-ty-nuldryy hypoxic hypercarbic respiratory failure. Resolved, now at baseline. 8. Type 2 diabetes. Lispro per sliding scale. Consistent carbohydrate diet and finger sticks q.a.c., h.s. 9. Hypertension. Controlled on no medications. 10. Chronic A fib with Watchman and pacemaker on amiodarone. Diltiazem discontinued due to low blood pressure, digoxin stopped due to digoxin toxicity. We will check another dig level in 12 to 24 hours. 11. GERD. On PPI. 12. Gout. On allopurinol. 13. Abdominal pain. Await CT of abdomen and pelvis. Result may be related to elevated digoxin level and dig toxicity. MTDD
[2021-08-18] MEDS ORDERED: NS IV ONE (10:00)
[2021-08-18] MEDS ORDERED: DIGOXIN IMMUNE FAB IV ONE (10:00)
[2021-08-18] MEDS: NORCO, ANEXSIA 5/325MG TABLET (HYDROcodone/ACETAMINOPHEN) PO PRN (10:12)
--- NOTE | 2021-08-18 10:42 | IPN ---
NEPHROLOGY PROGRESS NOTE DATE: 08/18/2021 SUBJECTIVE: Miss Ahumada is seen and examined this morning in the Hemodialysis Unit receiving a treatment. She has had some trouble with flows from her permacath. She is likely to require a permacath exchange. She also complains of abdominal distention, feeling of gassiness and feeling bloated and some nausea. She had an abdominal x-ray that showed constipation with a large amount of stool in the rectal vault. OBJECTIVE: PHYSICAL EXAMINATION: VITAL SIGNS: Temperature 98.6, pulse 70, respiratory rate 20, blood pressure 124/66, saturating 95% on 3 liters nasal cannula. INTAKE AND OUTPUT: Intake yesterday was 960. Goal dialysis removal today is 1 to 1.5 liters. GENERAL APPEARANCE: The patient is seen awake, alert, oriented x3, comfortable, comfortable, receiving dialysis, in no distress. HEENT: The extraocular muscles are intact. Tongue is moist. NECK: Jugular veins are not elevated. HEART: Regular, S1, S2. There is no peripheral edema. LUNGS: Diminished bilaterally with faint crackles. CHEST: There is a permacath in the right chest wall which is presently in use. ABDOMEN: Distended. There are bowel sounds. There is mild tenderness to palpation diffusely but no rebound or guarding. There EXTREMITIES: There is no peripheral edema. NEUROLOGICAL: She is oriented x3, interactive, conversational. PSYCHIATRIC: Appropriate mood and affect. SKIN: Some pallor. LABORATORY STUDIES: Sodium 135, potassium 5.0, bicarbonate 26, BUN 51, lactic acid 0.7, albumin 1.9, hemoglobin 8.8, platelet count 205. IMAGING: Abdomen x-ray with constipation and stool in the rectal vault. Chest x-ray done today shows mild congestive heart failure pattern, left pleural effusion. INPATIENT MEDICATIONS: The patient's medications were reviewed by myself. I note that the Primary Team is going to give a dose of Digoxin Immune Varinder and her oral Digoxin was discontinued. Her Protonix was increased to 40 mg p.o. twice daily and I note she is being started on Reglan 5 mg IV q. 6 hourly. Remainder medications are unchanged as compared to yesterday. PROBLEMS: 1. End-stage renal disease on hd- The patient has had trouble with her catheter flows. She is likely going to need a permacath exchange. I will discuss with Interventional Radiology on Friday. Today she is being dialyzed with goal fluid removal of 1.5 liters as tolerated. Her electrolytes are acceptable. She continues on her normal amount of home oxygen but I do note mild congestive heart failure pattern on chest x-ray done pre-dialysis this morning. 2. Anemia secondary to chronic renal failure - hemoglobin is low at 8.8. She continues on Aranesp with dialysis and I will get repeat iron studies. Her most recent iron studies in June were deficient. 3. Chronic hypoxemic respiratory failure with hypercapnia - The patient uses 3 liters of oxygen at home and currently has stable oxygen requirements. Chest x-ray done pre-dialysis today does show mild congestive heart failure pattern. We are removing 1.5 liters with her treatment today. She has underlying chronic obstructive pulmonary disease. 4. Chronic atrial fibrillation with Watchman I note her Digoxin level was elevated and Primary Team has stopped Digoxin. She is on Amiodarone. 5. Abdominal distention and nausea - The patient has significant constipation on abdominal x-ray. She is going to be started on Reglan by the Primary Team and on and increased dose of proton pump inhibitor along with Carafate. The CT abdomen/pelvis report is not yet available. 6. Diastolic congestive heart failure volume status is regulated via dialysis. The patient has congestive heart failure pattern on chest x-ray pre-dialysis today. We will remove 1.5 liters with her treatment today. 7. Mild hyponatremia it will improve with dialysis and fluid removal. 8. Protein calorie malnutrition albumin is depressed at 1.9. The patient is encouraged for protein intake. MTDD
[2021-08-18] MEDS ORDERED: BUPIVACAINE LIPOSOME/PF 1.3% 20ML VIAL (13.3MG/ML)(EXPAREL)(C9290 PER1MG) ONE (12:27)
[2021-08-18 13:12] VITALS: O2SAT 92
[2021-08-18 14:00] VITALS: BP 101/56
[2021-08-18] MEDS: **CEFDINIR AFTER HD** MISC XX SCH (16:00)
[2021-08-18] MEDS: CEFDINIR 300 MG CAP (OMNICEF) PO SCH (18:03)
[2021-08-18 22:00] VITALS: BP 108/60
[2021-08-18 22:58] VITALS: O2SAT 96
[2021-08-19] MEDS: traMADol 50 MG TAB PO PRN (00:32)
[2021-08-19] MEDS: METOCLOPRAMIDE INJ 10MG/2ML VIAL (J2765 PER 1) IV SCH ×4 (01:01→21:00)
[2021-08-19] MEDS: ACETAMINOPHEN TAB 650MG DOSE (2X325MG) PO SCH ×3 (05:00→21:04)
[2021-08-19 06:00] VITALS: BP 111/58
[2021-08-19 06:27] LABS: HEMATOCRIT 30.6 % (36.0-47.0); HEMOGLOBIN 8.8 g/dl (12.0-15.5); MEAN CORPUSCULAR HEMOGLOBIN 28.9 pg (27.0-33.0); MEAN CORPUSCULAR HGB CONC 28.8 g/dl (32.0-36.5); MEAN CORPUSCULAR VOLUME 100.3 fl (80.0-96.0); PLATELET COUNT, AUTOMATED 216 10^3/uL (150-450); RED BLOOD COUNT 3.05 10^6/uL (4.00-5.40); WHITE BLOOD COUNT 12.5 10^3/uL (4.0-10.0)
[2021-08-19 06:56] LABS: ALBUMIN 1.9 GM/DL (3.2-5.2); BILIRUBIN,TOTAL 0.4 MG/DL (0.2-1.0); CALCIUM LEVEL 8.2 MG/DL (8.8-10.2); CREATININE FOR GFR 2.54 MG/DL (0.55-1.30); GLOMERULAR FILTRATION RATE 19.7 (>39); PERCENT SATURATION 21.3 % (13.2-45.0); POTASSIUM SERUM 4.6 MEQ/L (3.5-5.1); TOTAL PROTEIN 5.7 GM/DL (6.4-8.2)
[2021-08-19] MEDS: HumaLOG INSULIN (NovoLOG) PER UNIT SC SCH ×4 (07:30→20:00)
[2021-08-19 07:35] LABS: ANISOCYTOSIS 1+; BASOPHILS 2 % (0-1); EOSINOPHILS 4 % (0-3); LYMPHOCYTES 11 % (16-44); METAMYELOCYTES 3 % (0-0); MONOCYTES 4 % (0-5); MYELOCYTES 2 % (0-0); NEUTROPHILS 71 % (28-66); PLATELET ESTIMATE NORMAL (NORMAL)
[2021-08-19] MEDS: IPRATROPIUM 0.02% SOLN 0.5MG 2.5ML NEB INH SCH ×3 (07:45→20:00)
[2021-08-19] MEDS: SYMBICORT 160/4.5MCG INHALER 6GM INH SCH ×2 (07:45→20:00)
[2021-08-19] MEDS: LEVALBUTEROL 1.25 MG/0.5 ML CONCENTRATE NEB INH SCH ×3 (07:45→20:00)
--- NOTE | 2021-08-19 08:01 | ECGEPIP ---
[facility] Test Date: 2021-08-18 Pat Name: DONALD ARMANDO Department: Room: [place] [address] Gender: Female Coil Winder Strap: shayy : 1945 Requested By: SHEREE Catalan Order Number: [id number] Reading MD: Derrell Jennings Measurements Intervals [place] Rate: 70 P: -6 [place]: 174 QRS: -79 QRSD: 130 T: 75 QT: 390 QTc: 421 Interpretive Statements AV dual-paced rhythm Compared to prior tracing of 08/14/2021, atrial fibrillation has resolved Electronically Signed on 08-19-2021 8:00:56 EST by Derrell Jennings
[2021-08-19] MEDS: allopurinoL 100 MG TAB PO SCH (08:15)
[2021-08-19] MEDS: PANTOPRAZOLE 40MG TAB (PROTONIX) PO SCH ×2 (08:15→21:05)
[2021-08-19] MEDS: HEPARIN SOD (PORCINE) 5000UNITS/ML 1ML VIAL/SYRINGE SQ SCH ×2 (08:16→21:09)
[2021-08-19] MEDS: SENOKOT S TAB PO SCH ×2 (08:16→21:05)
[2021-08-19] MEDS: BISACODYL 10 MG SUPP PR SCH ×2 (08:16→21:00)
[2021-08-19] MEDS: SUCRALFATE SUSP 1GM/10ML UD PO SCH ×4 (08:16→21:05)
[2021-08-19] MEDS: AMIODARONE 200 MG TAB (PACERONE) PO SCH (08:16)
[2021-08-19] MEDS: ATORVASTATIN 20 MG TAB PO SCH (08:16)
[2021-08-19] MEDS: MIRALAX *UNIT DOSE* 17GM PACKET PO SCH (08:16)
[2021-08-19 10:02] LABS: DIGOXIN LEVEL 3.5 NG/ML (0.5-2.0)
--- NOTE | 2021-08-19 10:04 | IPN ---
PROGRESS NOTE DATE: 08/19/2021 SUBJECTIVE: Patient complains of right flank pain without dysuria, urgency, frequency, fever, chills. Patient has not had any recurrent falls during the hospital stay. Able to ambulate with assistance. OBJECTIVE: VITAL SIGNS: Temperature 97.8, pulse 72, respiratory rate 20, blood pressure 111/58, 88% on 3 liters nasal cannula to 96%. GENERAL: Awake, alert, oriented to person, place and time, answering questions appropriately. HEENT: No pallor, icterus or jaundice. No use or respiratory accessory muscles. LUNGS: Diminished. HEART: S1, S2. Sinus rhythm. ABDOMEN: Obese, soft, nontender, nondistended. Positive bowel sounds. No costovertebral angle (CVA) tenderness. Left chest ecchymosis. EXTREMITIES: No cyanosis, clubbing. Positive edema bilaterally trace. Postoperative left hip. LABORATORY DATA/IMAGING STUDIES/MICROBIOLOGY: Please see the chart. ASSESSMENT: A 76-year-old with end-stage renal disease on maintenance dialysis Friday, , Friday, chronic obstructive pulmonary disease (COPD), chronic atrial fibrillation, on home oxygen, status post Watchman pacemaker, congestive heart failure (CHF) with preserved systolic function, anemia of iron deficiency, had a mechanical fall with left femoral intratrochanteric fracture and separate left greater trochanteric fracture and old right pubic rami fracture admitted and developed acute on chronic and hypoxic and hypercarbic respiratory failure due to opioids and aspiration pneumonia, treated in the intensive care unit (ICU) with bilevel positive airway pressure (BiPAP) by window shade estimator, and has been transferred out of ICU. IMPRESSION: 1. Digoxin toxicity with nausea, vomiting, abdominal pain. Patient has received dialysis and discontinued digoxin. Status post Digibind. Back to normal without nausea or vomiting this morning. 2. Right flank pain. Check right femoral x-ray. Check urinalysis (UA). Lidoderm patch for now. 3. Acute on chronic hypoxic respiratory failure with chronic hypercarbia status post bilevel positive airway pressure (BiPAP) management in ICU due to opioids. 4. Aspiration pneumonia with Lili catarrhalis completing a full course of antibiotics. Currently on cefdinir. 5. End-stage renal disease on hemodialysis Friday, , Friday, managed by nephrology. 6. Mechanical fall with left hip fracture status post open reduction internal fixation (ORIF). Postoperative management per orthopedic surgery. Awaiting acute rehabilitation unit (ARU) on Friday. 7. Chronic obstructive pulmonary disease (COPD). Status post acute on chronic hypoxic hypercarbic respiratory failure, now back to baseline. Resolved with continuous positive airway pressure (CPAP) in ICU. 8. Hypertension. Controlled on medications. 9. Diabetes. On sliding scale, consistent carbohydrate diet. Fingersticks in the morning and at bedtime. 10. Chronic atrial fibrillation. Due to low blood pressure, diltiazem has been discontinued. Patient is on amiodarone. Digoxin has been stopped due to digoxin toxicity. Recheck digoxin level this morning. 11. Gastroesophageal reflux disease (GERD). On proton pump inhibitor (PPI). 12. Gout. On allopurinol. 13. Abdominal pain. CT abdomen and pelvis report is still pending.
[2021-08-19] MEDS ORDERED: DIGOXIN IMMUNE FAB (OVINE) 40MG VIAL (J1162) IV ONE (10:05)
--- NOTE | 2021-08-19 10:48 | REP ---
INDICATION: belly pain. This study was acquired on 17 August 2021 and is presented to me for interpretation on 19 August 2021 at this time. COMPARISON: Comparison is made with prior CT study abdomen and pelvis from June 09, 2021. TECHNIQUE: Helical scanning is acquired following the intravenous injection of 100 mL of Isovue 370. Oral contrast was also administered. 3 mm axial images re-formatted. Coronal and sagittal MPR images are provided. FINDINGS: Preliminary digital occupational therapist per diem radiograph demonstrate stool in the proximal colon and some gas in the distal colon. No evidence of obstruction. Cardiac pacemaker leads are noted. There is femoral niko fixation of the left hip. On lung window settings, there is no evidence of pleural effusion. There is bilateral lower lobe subsegmental atelectasis and peripheral fibrosis in the subpleural region. Peribronchial thickening is seen in the lung bases. Four-chamber cardiac enlargement with pacemaker. Patient appears to be post mitral and tricuspid valve replacement. No pericardial effusion is seen. The liver is normal in size homogeneous in texture. Gallbladder is surgically absent. No significant biliary ductal dilation. No adrenal mass is seen. The spleen is unremarkable. Kidneys enhance symmetrically and are morphologically intact. There is a 1.1 cm cyst in the left kidney. No retroperitoneal mass or adenopathy is seen. No abnormality is noted in the pancreas. There is a descending duodenal diverticulum filled with gas. There is moderate stool and air in colonic loops. No obstructive lesion is seen. Oral contrast labels normal small bowel loops. The appendix is surgically absent. The uterus is surgically absent. Urinary bladder there is left colonic diverticulosis without CT evidence of diverticulitis. Is unremarkable. Vascular calcification is noted. There is vascular calcification at the origin of the celiac and superior mesenteric arteries but these vessels are patent. The inferior mesenteric artery origin appears patent as well. 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 Orthopedic fixation device in the left hip. No bony destructive lesion is appreciated. There is soft tissue swelling and a very small hematoma collection in the subcutaneous fat adjacent to greater trochanter on the left consistent with postoperative change. The IMPRESSION: Left colonic diverticulosis without CT evidence of diverticulitis. No evidence of free air or abscess. Subpleural fibrosis and bibasilar atelectasis in the lung bases. Post cholecystectomy, hysterectomy, and appendectomy. Postoperative changes are seen in the subcutaneous fat adjacent to the left hip. No acute abdominal or pelvic abnormality. <Electronically signed by Mikie Rose > 08/19/21 [id number]
--- NOTE | 2021-08-19 10:51 | REP ---
INDICATION: right hip pain s/p fall. COMPARISON: None. TECHNIQUE: Four views of the right femur are provided. FINDINGS: Four views of the right femur demonstrate diffuse osteopenia. Vascular calcification is noted. No fracture or subluxation is visible. There are osteoarthritic changes at the knee, and at the hip. No opaque foreign body noted. IMPRESSION: No fracture or subluxation noted. Diffuse osteopenia, vascular calcification, osteoarthritic changes. <Electronically signed by Mikie Rose > 08/19/21 [id number]
[2021-08-19 12:43] VITALS: O2SAT 94
[2021-08-19] MEDS: LIDOCAINE 5% (LIDODERM) PATCH TD SCH (13:39)
[2021-08-19] MEDS: **CEFDINIR AFTER HD** MISC XX SCH (14:40)
[2021-08-19] MEDS: NORCO, ANEXSIA 5/325MG TABLET (HYDROcodone/ACETAMINOPHEN) PO PRN (18:37)
--- NOTE | 2021-08-19 20:44 | ECGEPIP ---
[facility] Test Date: 2021-08-19 Pat Name: DONALD ARMANDO Department: Room: [place] [address] Gender: Female Integrated Marketing Manager: ANDI : 1945 Requested By: SHEREE Catalan Order Number: [id number] Reading MD: Derrell Jennings Measurements Intervals [place] Rate: 71 P: -16 [place]: 172 QRS: 255 QRSD: 130 T: 70 QT: 392 QTc: 425 Interpretive Statements AV dual-paced rhythm with PVC No significant change when compared to prior tracing of 08/18/2021, except for PVC Electronically Signed on 08-19-2021 20:43:54 EST by Derrell Jennings
[2021-08-19] MEDS: **NOTE PATIENT COMMENT** MISC XX SCH (21:15)
[2021-08-20 00:11] VITALS: O2SAT 95
[2021-08-20] MEDS: METOCLOPRAMIDE INJ 10MG/2ML VIAL (J2765 PER 1) IV SCH ×4 (02:16→21:22)
[2021-08-20] MEDS: ACETAMINOPHEN TAB 650MG DOSE (2X325MG) PO SCH ×3 (05:38→21:22)
[2021-08-20 06:00] VITALS: BP 118/58
[2021-08-20] MEDS: HumaLOG INSULIN (NovoLOG) PER UNIT SC SCH ×4 (07:30→21:00)
[2021-08-20] MEDS: SYMBICORT 160/4.5MCG INHALER 6GM INH SCH ×2 (08:24→19:54)
[2021-08-20] MEDS: IPRATROPIUM 0.02% SOLN 0.5MG 2.5ML NEB INH SCH ×3 (08:24→19:55)
[2021-08-20] MEDS: LEVALBUTEROL 1.25 MG/0.5 ML CONCENTRATE NEB INH SCH ×3 (08:25→19:55)
[2021-08-20] MEDS: MIRALAX *UNIT DOSE* 17GM PACKET PO SCH (09:00)
[2021-08-20] MEDS: BISACODYL 10 MG SUPP PR SCH ×2 (09:00→21:00)
[2021-08-20] MEDS: HEPARIN SOD (PORCINE) 5000UNITS/ML 1ML VIAL/SYRINGE SQ SCH ×2 (09:10→21:22)
[2021-08-20] MEDS: SUCRALFATE SUSP 1GM/10ML UD PO SCH ×4 (09:10→21:22)
[2021-08-20] MEDS: allopurinoL 100 MG TAB PO SCH (09:11)
[2021-08-20] MEDS: PANTOPRAZOLE 40MG TAB (PROTONIX) PO SCH ×2 (09:11→21:21)
[2021-08-20] MEDS: SENOKOT S TAB PO SCH ×2 (09:11→21:21)
[2021-08-20] MEDS: ATORVASTATIN 20 MG TAB PO SCH (09:11)
[2021-08-20] MEDS: LIDOCAINE 5% (LIDODERM) PATCH TD SCH (09:11)
[2021-08-20] MEDS: AMIODARONE 200 MG TAB (PACERONE) PO SCH (09:11)
[2021-08-20] MEDS ORDERED: IRON SUCROSE 100MG 5ML VIAL (J1756 PER 1MG) IV SCH (10:45)
--- NOTE | 2021-08-20 11:23 | IPNPDOC ---
Date Seen The patient was seen on 08/20/21. Progress Note SUBJECTIVE: c/o right flank pain yesterday w neg ct abd/pelvis and neg xr right hip. no c/o today of flank pain. no f/c/n/abd pain, but c/o chronic cough and wheeze. "I always have it." Per nephrology, permacath exchange in Am by vascular surgery. OBJECTIVE: VITAL SIGNS: see below GENERAL: Awake, alert, oriented to person, place and time, answering questions appropriately. dry cough no disress HEENT: No pallor, icterus or jaundice. No use or respiratory accessory muscles.no jvd LUNGS: Diminished.bl expiratory wheezing. HEART: S1, S2. Sinus rhythm. ABDOMEN: Obese, soft, nontender, nondistended. Positive bowel sounds. No costovertebral angle (CVA) tenderness. Left chest ecchymosis. EXTREMITIES: No cyanosis, clubbing. Positive edema bilaterally trace. Postoperative left hip. LABORATORY DATA/IMAGING STUDIES/MICROBIOLOGY: Please see the chart. ASSESSMENT: A 76-year-old with end-stage renal disease on maintenance dialysis Friday, , Friday, chronic obstructive pulmonary disease (COPD), chronic atrial fibrillation, on home oxygen, status post Watchman pacemaker, congestive heart failure (CHF) with preserved systolic function, anemia of iron deficiency, had a mechanical fall with left femoral intratrochanteric fracture and separate left greater trochanteric fracture and old right pubic rami fracture admitted and developed acute on chronic and hypoxic and hypercarbic respiratory failure due to opioids and aspiration pneumonia, treated in the intensive care unit (ICU) with bilevel positive airway pressure (BiPAP) by ballet company artistic director, and has been transferred out of ICU. IMPRESSION: 1. Digoxin toxicity with nausea, vomiting, anorexia, resolveds/p digibind. dc'ed digoxin. 2. Right flank pain. neg right femoral x-ray.neg ct abd/pelvis Lidoderm patch for now. 3. Acute on chronic hypoxic respiratory failure with chronic hypercarbia status post bilevel positive airway pressure (BiPAP) management in ICU due to opioids. 4. Aspiration pneumonia with Lili catarrhalis completing a full course of antibiotics. Currently on cefdinir. 5. End-stage renal disease on hemodialysis Friday, , Friday, managed by nephrology. permacath exchange by vascular on 08/21/21.npo after midnight. 6. Mechanical fall with left hip fracture status post open reduction internal fixation (ORIF). Postoperative management per orthopedic surgery. aru consulted. 7. Chronic obstructive pulmonary disease (COPD). Status post acute on chronic hypoxic hypercarbic respiratory failure, now back to baseline. Resolved with continuous positive airway pressure (CPAP) in ICU. 8. Hypertension. Controlled on medications. 9. Diabetes. On sliding scale, consistent carbohydrate diet. Fingersticks in the morning and at bedtime. 10. Chronic atrial fibrillation. Due to low blood pressure, diltiazem has been discontinued. Patient is on amiodarone. Digoxin has been stopped due to digoxin toxicity. tele continued. 11. Gastroesophageal reflux disease (GERD). On proton pump inhibitor (PPI). 12. Gout. On allopurinol. 13. Abdominal pain. resolved after digoxin discontinued. ct abd negative. disposition: may dc to ARU if accepted, permacath exhange in am. VS, I&O, 24H, Fishbone Vital Signs/I&O Vital Signs Date Time Temp Pulse Resp B/P (MAP) Pulse Ox O2 Delivery O2 Flow Rate FiO2 08/20/21 06:00 99.0 72 18 118/58 (78) 91 Nasal Cannula 3.0 I&O- Last 24 Hours up to 6 AM 08/20/21 06:00 Intake Total 1330 ml Output Total 0 ml Balance 1330 ml Laboratory Data 24H LABS Laboratory Tests 2 08/19/21 11:44: Bedside Glucose (Misc Panel) 95 08/19/21 16:50: Bedside Glucose (Misc Panel) 90 08/19/21 19:54: Bedside Glucose (Misc Panel) 149H 08/20/21 06:09: Digoxin Level 2.4H 08/20/21 06:25: Bedside Glucose (Misc Panel) 94 Microbiology Microbiology 08/11/21 Gram Stain - Final, Complete 08/11/21 Sputum Culture - Final, Complete Moraxella Catarrhalis Streptococcus Pneumoniae SHEREE LIMA MD Aug 20, 2021 11:23
[2021-08-20 11:39] LABS: HEPATITIS B CORE ANTIBODY IGM NEGATIVE (NEGATIVE); HEPATITIS B SURFACE ANTIBODY NEGATIVE (POSITIVE); HEPATITIS B SURFACE ANTIGEN NEGATIVE (NEGATIVE); HEPATITIS C VIRUS ABY INDEX 0.1 INDEX (<0.8)
--- NOTE | 2021-08-20 12:00 | IPN ---
PROGRESS NOTE DATE: 08/19/2021 SUBJECTIVE: Ms. Ahumada is seen this morning at the bedside. She reports she feels better than yesterday. She reports that abdominal distention has improved. She was dialyzed yesterday with 1.1 liters of fluid removed. Her dialysis Perm-A-Cath has had poor function with poor flows. OBJECTIVE: VITAL SIGNS: Temperature is 97.9, pulse is 80, respiratory rate is 18, blood pressure is 101/56, saturating 95% on 3 liters nasal cannula. INTAKE AND OUTPUT: Intake yesterday was 1640, dialysis yesterday removed 1.1 liters. Urine output yesterday was 600 ml. Weight on the bed scale today is 79.6 kg. GENERAL: Patient is seen awake, alert and oriented, comfortable, in no apparent distress. HEENT: Extraocular muscles are intact. Tongue is moist. NECK: Jugular veins are not elevated. There is a tunneled Perm-A-Cath in the right chest wall with a clean dressing. HEART: Heart sounds are regular, S1 and S2. There is absolutely no peripheral edema in the legs. LUNGS: Prolonged expiration with diminished breath sounds but no crackles. She is comfortable on nasal cannula. No accessory muscle use. No tachypnea. ABDOMEN: Soft and nontender to palpation. EXTREMITIES: There is no leg edema. There is a dressing at the left hip. NEUROLOGIC: She is oriented x3, interactive and conversational. PSYCHIATRIC: Appropriate mood and affect. LABORATORY DATA: White count is 12.5, hemoglobin is 8.8, platelets 216,000, sodium 137, potassium 4.6, bicarbonate 28, BUN 37, creatinine 2.4, lactic acid 0.7, transferring saturation 21%. Albumin 1.9. X-ray of the femur is noted with no acute fracture (on the right). There is diffuse osteopenia and osteoarthritic changes. A chest x-ray done yesterday is noted with left pleural effusion and left atelectasis. INPATIENT MEDICATIONS: Reviewed by myself. I note she was started on a Lidocaine Patch. Her remainder of medications are unchanged as compared to yesterday. PROBLEMS: 1. Endstage renal disease on hemodialysis, on a Friday, and Friday schedule. Patient was dialyzed yesterday, 1.1 liters were removed. Her volume status was acceptable. Electrolytes are stable. She has had poor flow from her Perm-A-Cath. I will discuss with Vascular Surgery on Friday regarding Perm-A-Cath exchange. 2. Anemia secondary to chronic renal failure. Hemoglobin is low at 8.8. She continues on Aranesp with dialysis. Her iron stores are on the low side and I will order three doses of Venofer to be given with dialysis. 3. Chronic hypoxic respiratory failure with underlying COPD. She continues on her usual amount of home oxygen. 4. Chronic atrial fibrillation. I note elevated Digoxin level which has been stopped by the primary team. She continues on amiodarone. 5. Chronic diastolic congestive heart failure, volume status is regulated by dialysis and she is acceptably compensated on exam. She used to have significant leg edema in the recent past and no longer has that. Continue current dialysis prescription.
[2021-08-20] MEDS: **CEFDINIR AFTER HD** MISC XX SCH (13:47)
[2021-08-20 14:00] VITALS: BP 124/65
[2021-08-20] MEDS: NORCO, ANEXSIA 5/325MG TABLET (HYDROcodone/ACETAMINOPHEN) PO PRN (15:05)
[2021-08-20] MEDS: **NOTE PATIENT COMMENT** MISC XX SCH (21:22)
[2021-08-20 22:00] VITALS: BP 123/65
[2021-08-20 23:00] VITALS: O2SAT 96
[2021-08-21] MEDS: NORCO, ANEXSIA 5/325MG TABLET (HYDROcodone/ACETAMINOPHEN) PO PRN ×2 (02:23→17:45)
[2021-08-21] MEDS: METOCLOPRAMIDE INJ 10MG/2ML VIAL (J2765 PER 1) IV SCH ×4 (02:23→21:33)
[2021-08-21] MEDS: ACETAMINOPHEN TAB 650MG DOSE (2X325MG) PO SCH ×3 (06:00→21:33)
[2021-08-21] MEDS: SUCRALFATE SUSP 1GM/10ML UD PO SCH ×4 (07:30→21:33)
[2021-08-21] MEDS: HumaLOG INSULIN (NovoLOG) PER UNIT SC SCH ×4 (07:30→21:00)
[2021-08-21] MEDS: LEVALBUTEROL 1.25 MG/0.5 ML CONCENTRATE NEB INH SCH ×3 (08:00→19:42)
[2021-08-21] MEDS: SYMBICORT 160/4.5MCG INHALER 6GM INH SCH ×2 (08:00→19:41)
[2021-08-21] MEDS: IPRATROPIUM 0.02% SOLN 0.5MG 2.5ML NEB INH SCH ×3 (08:00→19:42)
[2021-08-21] MEDS ORDERED: LIDOCAINE 1% MDV 20ML VIAL As Ordered ONE (08:00)
[2021-08-21 08:04] LABS: HEMATOCRIT 30.1 % (36.0-47.0); HEMOGLOBIN 8.5 g/dl (12.0-15.5); MEAN CORPUSCULAR HEMOGLOBIN 28.7 pg (27.0-33.0); MEAN CORPUSCULAR HGB CONC 28.2 g/dl (32.0-36.5); MEAN CORPUSCULAR VOLUME 101.7 fl (80.0-96.0); PLATELET COUNT, AUTOMATED 228 10^3/uL (150-450); RED BLOOD COUNT 2.96 10^6/uL (4.00-5.40); WHITE BLOOD COUNT 8.8 10^3/uL (4.0-10.0)
[2021-08-21 08:30] LABS: CALCIUM LEVEL 8.1 MG/DL (8.8-10.2); CREATININE FOR GFR 2.6 MG/DL (0.55-1.30); GLOMERULAR FILTRATION RATE 19.2 (>39); POTASSIUM SERUM 4.6 MEQ/L (3.5-5.1)
[2021-08-21] MEDS ORDERED: NS 1,000 ML IV SCH (09:15)
[2021-08-21] MEDS ORDERED: ISOVUE-300 61% 50ML VIAL As Ordered ONE (09:27)
[2021-08-21] MEDS ORDERED: MIDAZOLAM INJ 2MG/2ML VIAL (J2250 PER 1MG) As Ordered ONE (09:48)
[2021-08-21] MEDS ORDERED: fentaNYL 100 MCG/2 ML INJECTION (J3010) As Ordered ONE (09:48)
[2021-08-21] MEDS ORDERED: LIDOCAINE W/EPINEPHRINE 1% 20ML VIAL As Ordered ONE (09:54)
[2021-08-21] MEDS: DARBEPOETIN 200MCG/0.4ML *DIALYSIS* SYRINGE (J0882 PER 1MCG) IV SCH (11:11)
[2021-08-21 11:35] LABS: INR 1.16; PROTHROMBIN TIME 15.2 SECONDS (12.7-14.5)
[2021-08-21 11:58] LABS: PARTIAL THROMBOPLASTIN TIME 209.4 SECONDS (25.9-37.0)
[2021-08-21] MEDS: LIDOCAINE 5% (LIDODERM) PATCH TD SCH (12:31)
[2021-08-21] MEDS: BISACODYL 10 MG SUPP PR SCH ×2 (12:41→21:00)
--- NOTE | 2021-08-21 13:20 | IPN ---
NEPHROLOGY PROGRESS NOTE DATE: 08/21/2021 SUBJECTIVE: Ms. Montanez is seen and examined this morning in the hemodialysis unit. She had exchange of her Permacath this morning. Her new Permacath is working well with good blood flows. She reports no complaints. No new shortness of breath. Her dialysis is uneventful. PHYSICAL EXAMINATION: VITAL SIGNS: Temperature 98.2, pulse 78, respiratory rate 18, blood pressure 123/65, saturating 96% on 3 liters nasal cannula. INTAKE AND OUTPUT: Goal dialysis fluid removal today is 1.5 liters. Weight in the bed scale is 80.1 kg. GENERAL: Patient is seen lying in bed receiving her dialysis treatment, awake, alert, oriented times three, in no distress. HEENT: Extraocular muscles intact. Tongue is moist. NECK: Supple. Jugular veins are not elevated. There is a tunneled Permacath in the right chest wall with some fresh blood on the dressing. HEART SOUNDS: Regular. S1, S2. There is no edema on the legs. LUNGS: Prolonged expiration with diminished breath sounds, but no crackles. She is comfortable on nasal cannula. There is no accessory muscle use. No tachypnea. ABDOMEN: Soft and nontender to palpation. EXTREMITIES: There is no leg edema. There is a dressing on the left hip. NEUROLOGIC: She is oriented times three, interactive, conversational and comfortable while receiving her hemodialysis. PSYCHIATRIC: Appropriate mood and affect. LABORATORY STUDIES: White count 8.8, hemoglobin 8.5, platelets 228. Sodium 141, potassium 4.6, bicarbonate 29. INR 1.1. INPATIENT MEDICATIONS: Reviewed by myself. She continues on Aranesp with dialysis and Venofer. No medication changes are noted over the past 24 hours. PROBLEMS: 1. End-stage renal disease on hemodialysis on Friday, , Friday schedule. Patient has a new Permacath placed. It is functioning well. She is being dialyzed today without any issues. Volume status and electrolytes are acceptable. Continue current dialysis prescription. 2. Anemia secondary to chronic renal failure and borderline iron deficiency. She continues on Aranesp with dialysis and is ordered for three doses of Venofer as well. 3. Chronic hypoxic respiratory failure/chronic obstructive pulmonary disease (COPD). She continues on her usual amount of home oxygen. 4. Chronic diastolic congestive heart failure. Volume status is regulated by dialysis and she is acceptably compensated on exam. Continue current dialysis prescription. 5. Mechanical fall with left hip fracture status post open reduction internal fixation. Patient is pending rehabilitation placement.
[2021-08-21] MEDS: MIRALAX *UNIT DOSE* 17GM PACKET PO SCH (14:44)
[2021-08-21 14:45] VITALS: BP 96/74
[2021-08-21] MEDS: ATORVASTATIN 20 MG TAB PO SCH (14:52)
[2021-08-21] MEDS: AMIODARONE 200 MG TAB (PACERONE) PO SCH (14:52)
[2021-08-21] MEDS: PANTOPRAZOLE 40MG TAB (PROTONIX) PO SCH ×2 (14:52→21:33)
[2021-08-21] MEDS: HEPARIN SOD (PORCINE) 5000UNITS/ML 1ML VIAL/SYRINGE SQ SCH ×2 (14:53→21:33)
[2021-08-21] MEDS: SENOKOT S TAB PO SCH ×2 (14:53→21:32)
[2021-08-21] MEDS: allopurinoL 100 MG TAB PO SCH (14:53)
--- NOTE | 2021-08-21 15:46 | IPN ---
PROGRESS NOTE DATE: 08/20/2021 SUBJECTIVE: Zita is seen and examined this morning at the bedside. She has no complaints. Tells me that her abdomen feels a lot better. Reports pain is controlled. Reports no nausea with oral intake. I spoke with vascular surgery (Dr. Mai) regarding her poorly functioning Perm-A-Cath, and she is going to have the Perm-A-Cath exchanged tomorrow morning and will have dialysis afterward. VITAL SIGNS: Temperature 99, pulse 72, respiratory rate 18, blood pressure 118/58, saturating 91%-95% on 3 liters nasal cannula. Intake yesterday was 1240. There were three voids recorded. GENERAL: Patient seen awake, alert, oriented times three, comfortable in no distress. Extraocular muscles are intact. Tongue is moist. Neck is supple. There is a tunneled Perm-A-Cath in the right chest wall. HEART: Sounds are regular, s1. S2. There is no pericardial effusion. LUNGS: Show good air movement bilaterally. No crackle or rales. There is prolonged expiration. There is no wheeze. ABDOMEN: Soft and nontender. There are bowel sounds. NEUROLOGIC: She is oriented times three, interactive and conversational. EXTREMITIES: No cyanosis or clubbing. No edema. There is a dressing on her left hip. LABORATORY DATA: There are no new labs today. INPATIENT MEDICATIONS: Reviewed by myself, and no changes over the past 24 hours. PROBLEMS: 1. End-stage renal disease on hemodialysis on Friday, , Friday schedule. Patient is due for dialysis tomorrow. Her Perm-A-Cath has had poor function. Vascular surgery will see her for Perm-A-Cath exchange tomorrow morning, and we will plan for dialysis afterward. We will remove 2 liters as tolerated by her hemodynamics. Her electrolytes are acceptable. Continue current dialysis prescription. 2. Anemia secondary to end-stage renal disease and chronic inflammatory state and iron deficiency. Continue Aranesp with dialysis, and three doses of Venofer have been ordered as well. 3. Poorly functioning dialysis Perm-A-Cath. Patient is going to be nothing by mouth after midnight for Perm-A-Cath exchange tomorrow.
[2021-08-21] MEDS: **CEFDINIR AFTER HD** MISC XX SCH (16:17)
[2021-08-21 16:47] VITALS: O2SAT 92
--- NOTE | 2021-08-21 20:59 | IPNPDOC ---
Date Seen The patient was seen on 08/21/21. Progress Note SUBJECTIVE: "I feel tired." s/p permacath exchange and dialysis. pt denies pain, sob, chest pain, pressure, n/v/abd pain. says her left hip pain is 4/10,and does not want pain meds. OBJECTIVE: VITAL SIGNS: see below GENERAL: no distress. HEENT: No pallor, icterus or jaundice. No use or respiratory accessory muscles.no jvd no stridor no carotid bruits LUNGS: Diminished.aebe no rales HEART: S1, S2. Sinus rhythm. ABDOMEN: Obese, soft, nontender, nondistended. Positive bowel sounds. No costovertebral angle (CVA) tenderness. EXTREMITIES: No cyanosis, clubbing. Positive edema bilaterally trace. Postoperative left hip. SKIN: permacath w/o crepitus, tenderness, or erythema LABORATORY DATA/IMAGING STUDIES/MICROBIOLOGY: Please see the chart. ASSESSMENT: A 76-year-old with end-stage renal disease on maintenance dialysis Friday, , Friday, chronic obstructive pulmonary disease (COPD), chronic atrial fibrillation, on home oxygen, status post Watchman pacemaker, congestive heart failure (CHF) with preserved systolic function, anemia of iron deficiency, had a mechanical fall with left femoral intratrochanteric fracture and separate left greater trochanteric fracture and old right pubic rami fracture admitted and developed acute on chronic and hypoxic and hypercarbic respiratory failure due to opioids and aspiration pneumonia, treated in the intensive care unit (ICU) with bilevel positive airway pressure (BiPAP) by bass guitar teacher, and has been transferred out of ICU. IMPRESSION: 1. Digoxin toxicity ,resolved 2. Right flank pain, resolved 3. Acute on chronic hypoxic respiratory failure with chronic hypercarbia status post bilevel positive airway pressure (BiPAP) management in ICU due to opioids, resolved 4. Aspiration pneumonia with Lili catarrhalis 5. End-stage renal disease on hemodialysis Friday, , Friday, permacath exchanged by vascular on 08/21/21 6. Mechanical fall with left hip fracture status post open reduction internal fixation (ORIF). 7. Chronic obstructive pulmonary disease (COPD). 8. Hypertension. 9. Diabetes. 10. chronic atrial fibrillation. 11. Gastroesophageal reflux disease (GERD). 12. Gout. 13. Poorly functioning permacath s/p exchange 08/21/21 PLAN: placed on iv heparin gtt yesterday prior to permacath exchange today. HD managed by nephrology . pain is controlled with current pain regimen. blood cx obtained to rule out bacteremia prior to permacath exchange. ARU consulted. medically stable for discharge to ARU. Afib stable on amiodarone. digoxin discontinued. VS, I&O, 24H, Fishbone Vital Signs/I&O Vital Signs Date Time Temp Pulse Resp B/P (MAP) Pulse Ox O2 Delivery O2 Flow Rate FiO2 08/21/21 18:25 18 3.0 08/21/21 17:45 Nasal Cannula 08/21/21 16:47 92 08/21/21 14:45 96.9 105 96/74 (81) I&O- Last 24 Hours up to 6 AM 08/21/21 06:00 Intake Total 120 ml Output Total 800 ml Balance -680 ml Laboratory Data 24H LABS Laboratory Tests 2 08/21/21 06:18: Bedside Glucose (Misc Panel) 85 08/21/21 07:46: Nucleated Red Blood Cells % (auto) 0.0, Anion Gap 6L, Glomerular Filtration Rate 19.2L, Calcium Level 8.1L 08/21/21 10:53: Prothrombin Time 15.2H, Prothromb Time International Ratio 1.16, Activated Partial Thromboplast Time 209.4*H 08/21/21 14:41: Bedside Glucose (Misc Panel) 65L 08/21/21 16:29: Bedside Glucose (Misc Panel) 118H 08/21/21 20:35: Bedside Glucose (Misc Panel) 114H CBC/BMP Laboratory Tests 08/21/21 07:46 Microbiology Microbiology 08/11/21 Gram Stain - Final, Complete 08/11/21 Sputum Culture - Final, Complete Moraxella Catarrhalis Streptococcus Pneumoniae SHEREE LIMA MD Aug 21, 2021 20:59
[2021-08-21] MEDS: **NOTE PATIENT COMMENT** MISC XX SCH (21:34)
[2021-08-21 22:00] VITALS: BP 126/66
[2021-08-21 23:46] VITALS: O2SAT 93
[2021-08-22] MEDS: METOCLOPRAMIDE INJ 10MG/2ML VIAL (J2765 PER 1) IV SCH ×3 (02:12→13:10)
[2021-08-22] MEDS: NORCO, ANEXSIA 5/325MG TABLET (HYDROcodone/ACETAMINOPHEN) PO PRN ×2 (02:13→11:55)
[2021-08-22] MEDS: ACETAMINOPHEN TAB 650MG DOSE (2X325MG) PO SCH ×2 (05:22→13:10)
[2021-08-22 05:31] VITALS: BP 136/68
[2021-08-22] MEDS: SYMBICORT 160/4.5MCG INHALER 6GM INH SCH (07:01)
[2021-08-22] MEDS: IPRATROPIUM 0.02% SOLN 0.5MG 2.5ML NEB INH SCH ×2 (07:01→13:53)
[2021-08-22] MEDS: LEVALBUTEROL 1.25 MG/0.5 ML CONCENTRATE NEB INH SCH ×2 (07:03→13:53)
[2021-08-22] MEDS: HumaLOG INSULIN (NovoLOG) PER UNIT SC SCH ×2 (07:30→11:46)
[2021-08-22] MEDS: SUCRALFATE SUSP 1GM/10ML UD PO SCH ×2 (08:21→11:53)
[2021-08-22] MEDS: MIRALAX *UNIT DOSE* 17GM PACKET PO SCH (08:22)
[2021-08-22] MEDS: BISACODYL 10 MG SUPP PR SCH (08:22)
[2021-08-22] MEDS: SENOKOT S TAB PO SCH (08:22)
[2021-08-22] MEDS: ATORVASTATIN 20 MG TAB PO SCH (08:22)
[2021-08-22] MEDS: AMIODARONE 200 MG TAB (PACERONE) PO SCH (08:23)
[2021-08-22] MEDS: LIDOCAINE 5% (LIDODERM) PATCH TD SCH (08:23)
[2021-08-22] MEDS: allopurinoL 100 MG TAB PO SCH (08:23)
[2021-08-22] MEDS: PANTOPRAZOLE 40MG TAB (PROTONIX) PO SCH (08:23)
[2021-08-22] MEDS: HEPARIN SOD (PORCINE) 5000UNITS/ML 1ML VIAL/SYRINGE SQ SCH (08:26)
[2021-08-22 09:36] LABS: HEMATOCRIT 31.2 % (36.0-47.0); MEAN CORPUSCULAR HEMOGLOBIN 29.6 pg (27.0-33.0); MEAN CORPUSCULAR HGB CONC 28.8 g/dl (32.0-36.5); MEAN CORPUSCULAR VOLUME 102.6 fl (80.0-96.0); PLATELET COUNT, AUTOMATED 240 10^3/uL (150-450); RED BLOOD COUNT 3.04 10^6/uL (4.00-5.40); WHITE BLOOD COUNT 9.9 10^3/uL (4.0-10.0)
[2021-08-22 10:01] LABS: CALCIUM LEVEL 8.1 MG/DL (8.8-10.2); CREATININE FOR GFR 2.08 MG/DL (0.55-1.30); GLOMERULAR FILTRATION RATE 24.8 (>39)
--- NOTE | 2021-08-22 11:07 | IPN ---
PROGRESS NOTE DATE: 08/22/2021 SUBJECTIVE: The patient has no new complaints. Denies chest pain, pressure, tightness, or shortness of breath. Pain is controlled in the left lower extremity, does not want changes in pain medications. Pain was oozing out of the right Perm-A-Cath site yesterday with blood. Heparin has been changed this morning to sub q. b.i.d. IV Heparin drip was discontinued yesterday. No other issues per nursing. OBJECTIVE: VITAL SIGNS: Temperature is 97.3, pulse is 71, respiratory rate is 20, blood pressure is 136/68, 97% on 3 liters nasal cannula. GENERAL: Patient is awake, alert and oriented x3, head of bed elevation at 45 degrees, speaking in full sentences without any use of respiratory accessory muscles. HEENT: Patient is anicteric. No jaundice. No cyanosis or pallor. Has no conversational dyspnea. NECK: No JVD, thyromegaly or cervical lymphadenopathy. Moist mucous membranes. LUNGS: Diminished bilaterally. No wheezing or rales. HEART: S1 and S2. Regular rate and rhythm. ABDOMEN: Obese, soft, nontender and nondistended. EXTREMITIES: Left postop changes. No cyanosis or clubbing. LABORATORY DATA/IMAGING STUDIES/MICROBIOLOGY: Please see the chart. ASSESSMENT AND PLAN: This is a 76-year-old female with endstage renal disease on maintenance dialysis Friday, and Friday, diastolic heart failure with preserved ejection fraction, COPD, chronic atrial fibrillation, on home oxygen, Watchman pacemaker, had a mechanical fall with left femoral intertrochanteric fracture and separate left greater trochanteric fracture and old right pubic rami fracture, developed acute on chronic respiratory failure due to opioids and aspiration pneumonia, completed antibiotics but required ICU care and BiPAP. Patient had elevated Digoxin level with complaints of nausea, vomiting, and abdominal pain, Digoxin has been discontinued. ACTIVE ISSUES: 1. Mechanical fall with left femoral intertrochanteric fracture status post ORIF. Postop management per Orthopedic Surgery, ARU consulted, awaiting insurance coverage. 2. Acute hypoxic respiratory failure due to opioids, status post BiPAP and ICU care, resolved, now at baseline. Endstage renal disease on maintenance dialysis Friday, and Friday, Perm-A-Cath exchange on 08/21 with some oozing of the site but now stable. 3. Chronic atrial fibrillation, not on any anticoagulation. 4. Reflux, chronic. 5. COPD, compensated. 6. Hypertension, stable. 7. Diabetes.
[2021-08-22] MEDS ORDERED: TRAM50TA2 PO (12:12)
[2021-08-22] MEDS ORDERED: HYDR-3715 PO (12:12)
[2021-08-22] MEDS ORDERED: LIDO5TD TD (12:12)
[2021-08-22] MEDS ORDERED: HEPA500023 SQ (12:12)
[2021-08-22] MEDS ORDERED: SENN-52 PO (12:12)
[2021-08-22] MEDS ORDERED: PANT40TA29 PO (12:12)
[2021-08-22] MEDS ORDERED: MIRA1POW3 PO (12:12)
[2021-08-22] MEDS ORDERED: SUCR1ORA PO (12:12)
[2021-08-22] MEDS ORDERED: LEVA12INH INH (12:14)
[2021-08-22] MEDS ORDERED: MUCI600T31 PO (12:14)
[2021-08-22] MEDS ORDERED: REGL5TAB2 PO (12:14)
[2021-08-22] MEDS ORDERED: CEFD300CAP PO (12:14)
[2021-08-22] MEDS ORDERED: SYMB16INH INH (12:17)
[2021-08-22] MEDS ORDERED: INSUHUMDS SC ×2 (12:17)
[2021-08-22] MEDS ORDERED: DEXT4TAB15 PO (12:17)
[2021-08-22] MEDS ORDERED: IPRA2IN INH (12:17)
[2021-08-22] MEDS ORDERED: CALC200T15 PO (12:17)
--- NOTE | 2021-08-22 12:21 | DS.PDOC ---
Discharge Summary General Date of Admission Aug 10, 2021 at 13:09 Date of Discharge 08/22/21 -DISCHARGED TO ACUTE REHAB UNIT. Discharge Summary CONSULTANTS: DR JOSÉ-PULMONARY DR MOHAMUD-NEPHROLOGY DR PETERS-ORTHOPEDIC SURGERY DR HATFIELD-VASCULAR SURGERY PROCEDURES PERFORMED DURING STAY: s/p Intramedullary rodding of femur on 08/11/21 permacath exchange 08/21/21 DISCHARGE DIAGNOSES: Left femoral neck fracture Acute on chronic respiratory failure with hypercarbia due to narcotics Stress gastritis. Possible aspiration pneumonia Acute on Chronic anemia received 3 units of PRBC. Malfunctioning permacath s/p permacath exchange SECONDARY DIAGNOSIS: ESRD Secondary hyperparathyroidism Anemia of chronic disease COPD with chronic hypoxic and hypercarbic respiratory failure on 3 L oxygen at home History of COVID pneumonia in beginning of June 2021 along with rhinovirus infection. RSV infection and bacterial pneumonia in end of June 2021 Hypertension Type 2 Diabetes Mellitus Coronary artery disease Congestive heart failure Hyperuricemia GERD CATHRYN Paroxysmal atrial fibrillation status post watchman left atrial appendage closure implant 2019 Pacemaker Implant - 2014 Peripheral artery disease status post Femoral-Femoral bypass- 2002 Hyperlipidemia Iron deficiency Osteoporosis COMPLICATIONS/CHIEF COMPLAINT: Esrd, Fracture Of Left Femur. HOSPITAL COURSE: 76-year-old female from home with past medical history of ESRD, COPD on home oxygen, atrial fibrillation status post watchman device placement as well as pacemaker, congestive heart failure, chronic anemia, iron deficiency presented to the emergency room after a mechanical fall at home this morning when she was ambulating with her walker to the bathroom. The wheel of the walker had gotten stuck at the bathroom door so she was trying to move backward a few steps to dislodge the wheel when she tripped over and fell on her left s patrice with severe pain at her left hip. Her daughter who lives with her called the ambulance. In the ED she was found to have left femoral intertrochanteric fracture as well as a separate left greater trochanter fracture. She was also noted to have an old right pubic rami fracture. Patient was admitted for left femoral neck fracture. Overnight on 08/10/21 patient was noted to be lethargic and ABG showed acute on chronic respiratory failure with hypercarbia and hypoxia thought to be related to narcotics. She also had an episode of vomiting went she was lethargic so thoughts about as aspiration pneumonia was also entertained. She was moved to ICU and placed on BIPAP. She recovered from the ac sylvia resp failure and had OR on 08/11/21. Hospital course has been complicated with fluid overload and difficult to wean down to home oxygenation level but after an additional session of HD with aggressive fluid removal and PRBC transfusion she is now down to her usual 3 liters of Oxygen. She does not like to use the CPAP and has been tolerating it only about 4 hours at night. Her Diltiazem was stopped due to hypotension . This caused her pulse rate to become uncontrolled so she has been started on digoxin with control of heart rate. At this time she complains of an ongoing epigastric pain likely due to stress gastritis. Left femoral neck fracture s/p Intramedullary rodding of femur on 08/11/21 pain control with tylenol, Toradol, tramadol and norco We will have to be cautious about use of narcotics Incentive spirometer PT/OT bowel regimen. Epigastric pain likely stress gastritis continue PPI and sucralfate. Acute on chronic respiratory failure with hypercarbia due to narcotics given for her pain from the hip fracture. Now resolved Patient to continue CPAP at 10 cm of water at night and nasal cannula during the day maintain sats st 86% to 90% Possible aspiration pneumonia Patient sputum culture is growing Streptococcus pneumoniae heavy and Moraxella catarrhalis She did vomit in an obtunded state Continues to have persistent leukocytosis continue with cefdinir as per renal dose. Leukocytosis Likely combination of infection and reactive to recent steroids and acute fra cture improving slowly. ESRD HD as per nephrology Malfunctioning permacath permacath exchange by vascular surgery on 08/21/21 s/p iv heparin Anemia of chronic disease and iron deficiency and also likely blood loss in fracture hematoma. received 3 unit of PRBC also getting darbepoetin during HD Continue ferrous sulfate COPD with acute on chronic hypoxic and hypercarbic respiratory failure This was due to narcotics which is now is We will continue Symbicort in place of Breo continue lev albuterol We will continue with incentive spirometry and chest PT Diabetes We will place the patient on lispro as per sliding scale Fingerstick before meals and at bedtime carb consistent diet Hypertension Blood pressure well controlled without any medication. diltiazem has been stopped Atrial fibrillation status post placement of watchman device and pacemaker Continue amiodarone. Diltiazem stopped due to low blood pressure. Started on digoxin for rate control Patient is now in paced rhythm GERD Continue PPI Gout Continue allopurinol DISCHARGE MEDICATIONS: Please see below. ALLERGIES: Please see below. PHYSICAL EXAMINATION ON DISCHARGE: VITAL SIGNS: Please see below. General Exam: Positive: Alert, Cooperative, No Acute Distress Eye Exam: Positive: PERRLA, Conjunctiva & lids normal, EOMI ENT Exam: Positive: Atraumatic, Mucous membr. moist/pink, Pharynx Normal Neck Exam: Positive: Supple Chest Exam: Positive: Diminished, Other; Negative: Rhonchi, Wheezing Heart Exam: Positive: Rate Normal, Regular Rhythm, Normal S1, Normal S2 Telemetry: Positive: Other Telemetry: Abdomen Exam: Positive: Normal bowel sounds, Soft Extremity Exam: Positive: Edema (trace) Skin Exam: Positive: Other skin issue (Large hand sized bruise on the left post chest ) Neuro Exam: Positive: Normal Speech, Normal Tone, Sensation Intact Psych Exam: Positive: Memory Intact, Oriented x 3 LABORATORY DATA: Please see below. ACTIVITY: [As tolerated]. DIET: Consistent carb with 1.8 L fluid restriction DISCHARGE PLAN: ARU DISCHARGE CONDITION: [Stable]. TIME SPENT ON DISCHARGE: 40 minutes. Vital Signs/I&Os Vital Signs Date Time Temp Pulse Resp B/P (MAP) Pulse Ox O2 Delivery O2 Flow Rate FiO2 08/22/21 11:55 75 18 114/58 95 Nasal Cannula 08/22/21 05:31 97.3 3.0 I&O- Last 24 Hours up to 6 AM 08/22/21 06:00 Intake Total 540 ml Output Total 1300 ml Balance -760 ml Laboratory Data Labs 24H Laboratory Tests 2 08/21/21 14:41: Bedside Glucose (Misc Panel) 65L 08/21/21 16:29: Bedside Glucose (Misc Panel) 118H 08/21/21 20:35: Bedside Glucose (Misc Panel) 114H 08/22/21 06:18: Bedside Glucose (Misc Panel) 86 08/22/21 09:19: Nucleated Red Blood Cells % (auto) 0.0, Anion Gap 6L, Glomerular Filtration Rate 24.8L, Calcium Level 8.1L 08/22/21 11:25: Bedside Glucose (Misc Panel) 95 CBC/BMP Laboratory Tests 08/22/21 09:19 FSBS Laboratory Tests Test 08/21/21 14:41 08/21/21 16:29 08/21/21 20:35 08/22/21 06:18 Range/Units Bedside Glucose (Misc Panel) 65 118 114 86 83-110 MG/DL Test 08/22/21 11:25 Range/Units Bedside Glucose (Misc Panel) 95 83-110 MG/DL Discharge Medications Scheduled Allopurinol (Allopurinol) 100 Mg Tablet, 100 MG PO DAILY, (Reported) Amiodarone HCl (Amiodarone HCl) 200 Mg Tablet, 200 MG PO DAILY, (Reported) Atorvastatin Calcium (Atorvastatin Calcium) 20 Mg Tablet, 20 MG PO DAILY, (Reported) Budesonide/Formoterol (Symbicort 160-4.5 Mcg Inhaler) 6 Gm Hfa.aer.ad, 2 PUFF INH RBID Calcitriol (Calcitriol) 0.25 Mcg Capsule, 0.25 MCG PO DAILY, (Reported) Calcium Carbonate (Calcium) 600 Mg Tablet, 600 MG PO BID, (Reported) Cefdinir (Cefdinir) 300 Mg Capsule, 300 MG PO HD Cholecalciferol (Vitamin D3) (Vitamin D3) 1,000 Unit Tablet, 1,000 UNITS PO QPM, (Reported) TAKES AT 1600 Ferrous Sulfate (Ferrous Sulfate) 325 Mg Tablet, 325 MG PO BID, (Reported) Fluticasone/Vilanterol (Breo Ellipta 200-25 Mcg INH) 1 Each Blst.w.dev, 1 PUFF INH DAILY, (Reported) Folic Acid (Folic Acid) 1 Mg Tablet, 1 MG PO DAILY, (Reported) Furosemide (Furosemide) 40 Mg Tablet, 80 MG PO DAILY, (Reported) Heparin Sodium,Porcine (Heparin Sodium) 5,000 Unit/1 Ml Syringe, 5,000 UNITS SQ BID Insulin Human Lispro (Humalog) 100 Unit/1 Ml Vial, 0 UNITS SC AC Insulin Human Lispro (Humalog) 100 Unit/1 Ml Vial, 0 UNITS SC QHS Ipratropium Harrison (Ipratropium Harrison) 0.2 Mg/1 Ml Solution, 0.5 MG INH RTID Levalbuterol Hydrochloride (Xopenex Concentrate) 1.25 Mg/0.5 Ml Vial.neb, 0.63 MG INH RTID Lidocaine (Lidocaine) 5% Adh..patch, 2 PATCH TD DAILY Metoclopramide Hcl (Reglan) 5 Mg Tablet, 5 MG PO ACHS Pantoprazole Sodium (Pantoprazole Sodium) 40 Mg Tablet.dr, 40 MG PO BID Polyethylene Glycol 3350 (Miralax) 17 Gm Powd.pack, 1 PKT PO DAILY Raloxifene HCl (Raloxifene HCl) 60 Mg Tablet, 60 MG PO DAILY, (Reported) Rosuvastatin Calcium (Rosuvastatin Calcium) 10 Mg Tablet, 10 MG PO DAILY, (Reported) Sennosides/Docusate Sodium (Senna Plus Tablet) 1 Each Tablet, 2 TAB PO BID Sucralfate (Sucralfate) 1 Gm/10 Ml Oral.susp, 1 GM PO ACHS Scheduled PRN Albuterol Sulf (Albuterol Sulfate) 2.5 Mg/3 Ml Vial.neb, 2.5 MG INH QID PRN for SHORTNESS OF BREATH, (Reported) Albuterol Sulfate (Ventolin Hfa) 18 Gm Hfa.aer.ad, 2 PUFFS INH Q6H PRN for SOB /WHEEZING, (Reported) Calcium Carbonate (Calcium Carbonate) 200 Mg Tab.chew, 1,000 MG PO Q4HP PRN for HEARTBURN Dextrose (Glucose) 4 Gm Tab.chew, 0 GM PO ASDIRECTED PRN for SEE LABEL COMMENTS Guaifenesin (Mucinex) 600 Mg Tab.er.12h, 600 MG PO BIDP PRN for congestion, cough Hydrocodone/Acetaminophen (Hydrocodone-Acetamin 5-325 mg) 1 Each Tablet, 1 TAB PO Q8HP PRN for PAIN LEVEL 8-10 Tramadol HCl (Tramadol HCl) 50 Mg Tablet, 25 MG PO Q12HP PRN for PAIN LEVEL 5-7 Allergies Coded Allergies: codeine (Verified Adverse Reaction, Intermediate, stabbing abd pain, 11/30/20) phenytoin (Verified Adverse Reaction, Intermediate, feels like being stabbed in abd, 11/30/20) gabapentin (Verified Adverse Reaction, Mild, VERTIGO, 11/30/20) oxycodone (Verified Adverse Reaction, Mild, SHAKINESS, 11/30/20) SHEREE LIMA MD Aug 22, 2021 12:19
[2021-08-22 14:00] VITALS: BP 140/80
[2021-08-22 15:06] VITALS: O2SAT 95
--- NOTE | 2021-08-22 16:30 | IPN ---
PROGRESS NOTE DATE: 08/22/2021 SUBJECTIVE: Ms. Ahumada is seen and examined this morning sitting out of bed in the chair. She reports no complaints except for pain at her fracture site, which she reports is tolerable. She was dialyzed yesterday with 1 liter of fluid removed. Her treatment was uneventful. She is pending rehabilitation placement. OBJECTIVE: VITAL SIGNS: Temperature 97.3, pulse 71, respiratory rate 20, blood pressure 136/68, saturating 97% on 3 liter nasal cannula. INTAKE/OUTPUT: Intake yesterday was not fully recorded. Urine output was 650. Hemodialysis removed 1 liter. Weight in the bed scale today is 81.2 kg. GENERAL: Patient is seen sitting in the chair, awake, alert, oriented, comfortable and in no distress. HEENT: Extraocular muscles are intact. Tongue is moist. Neck is supple. There is a tunneled Permacath in the right chest wall. HEART: Sounds are regular, S1, S2. There is no peripheral edema. The legs are dry and wrinkled. LUNGS: Show good air movement. No crackle or rale. There is prolonged expiration. She is comfortable on nasal cannula. ABDOMEN: Soft and nontender. NEUROLOGIC: She is oriented x3, interactive and conversational. EXTREMITIES: No cyanosis or clubbing. No leg edema. The left hip site was not examined today. LABORATORY STUDIES: White count 9.9, hemoglobin 9.0, platelets 240,000. Sodium 140, potassium 4.0, bicarbonate 30, BUN 29. INPATIENT MEDICATIONS: Reviewed by myself and no changes noted as compared to yesterday. PROBLEMS: 1. End-stage renal disease on hemodialysis on a Friday, , Friday schedule: Patient was dialyzed yesterday; 1 liter of fluid was removed. Her new Permacath is working well. Her volume status and electrolytes are acceptable. Her next dialysis will be on . 2. Anemia secondary to end-stage renal disease and chronic inflammatory state and iron deficiency: She continues on Aranesp with dialysis and is receiving a total of three doses of Venofer as well. 3. Diastolic congestive heart failure: Patient's volume status is regulated via dialysis and is well compensated; 1 liter was removed yesterday. She still makes urine as well. She had peripheral edema earlier on this admission and that has resolved now. Her next dialysis will be on . 4. Mechanical fall with left femoral intertrochanteric fracture; status post open reduction internal fixation: Patient reports adequate pain control managed by primary team and she is pending rehabilitation placement.
--- NOTE | 2021-09-06 10:46 | ROOPDOC ---
[facility] Report Of Operation Report of Operation DATE OF PROCEDURE: 08/21/21 PREPROCEDURE DIAGNOSES: Malfunctioning Dialysis Catheter POSTPROCEDURE DIAGNOSES: Malfunctioning Dialysis Catheter PROCEDURE PERFORMED: 1. Permacath Removal 2. Permacath Placement 3. Central Venography SURGEON: Kyleigh Perez MD ANESTHESIA: Local and sedation ESTIMATED BLOOD LOSS: Approximately 2 mL COMPLICATIONS: None REMARKS: None DESCRIPTION OF PROCEDURE: The patient was brought to the Interventional Radiology Suite and placed on the IR table in supine position. After adequate anesthesia was administered, the right neck and chest were prepped and draped in the standard surgical fashion. Infusion of local anesthesia was administered at the catheter insertion site. A quick venography was performed to evaluate location of catheter tip. Several leads from patient's pacemaker were surrounding the catheter which most likely resulted in obstruction at the catheter tip and sideholes for normal dialysis function. The cuff was dissected free from the surrounding tissues with a Mosquito clamp. Once the cuff was freed, the catheter was removed. Pressure was held over the internal jugular vein entry site. Using ultrasound guidance, percutaneous entry into the right IJ was performed using a micropuncture needle. Over guidewire exchange, a microsheath was placed and a Nitrex wire than passed into the SVC. A separate incision was made on the right anterior chest just below the clavicle and the dialysis catheter was tunneled from the anterior chest incision to the neck puncture site with the Enmanuel cuff of the catheter located just below the clavicle. Under fluoroscopic guidance, a tear-away sheath was then placed over the wire and into the SVC. The catheter was then placed through the sheath with the tip located at the cavoatrial junction. The sheath was removed and both ports were tested for flow and then flushed with saline solution. IV Heparin was then instilled into both ports. A 2-0 Prolene suture was used to anchor the catheter to the chest and a 4-0 Monocryl suture to close the neck puncture site. Sterile dressings were then placed. KYLEIGH PEREZ MD Aug 21, 2021 18:21
== END 2021-08-22 15:25 | DRG 480 ==
LOC: M ED 08:34 → M ED INP 13:09 → ENRESERV 13:45 → M MSPAV 18:22 → M PCU 08-11 02:34 → M MS5PR 08-13 17:14 → M MSPAV 08-15 14:35
PROVIDERS: ADMIT Internal Medicine Nephrology; ATTEND General Practice
PROC: 5A1D70Z Performance of Urinary Filtration, Intermittent, Less than 6 Hours Per Day (ICD-10-PCS; 2021-08-10)
PROC: 5A0935Z Assistance with Respiratory Ventilation, Less than 24 Consecutive Hours (ICD-10-PCS; 2021-08-10)
PROC: 0QS706Z Reposition Left Upper Femur with Intramedullary Internal Fixation Device, Open Approach (ICD-10-PCS; principal; 2021-08-11 14:45)
PROC: 30233N1 Transfusion of Nonautologous Red Blood Cells into Peripheral Vein, Percutaneous Approach (ICD-10-PCS; 2021-08-14)
PROC: 02HV33Z Insertion of Infusion Device into Superior Vena Cava, Percutaneous Approach (ICD-10-PCS; 2021-08-21)
DX: S72.102A Unspecified trochanteric fracture of left femur, initial encounter for closed fracture (principal); N18.6 End stage renal disease; J96.22 Acute and chronic respiratory failure with hypercapnia; J69.0 Pneumonitis due to inhalation of food and vomit; G93.41 Metabolic encephalopathy; N25.81 Secondary hyperparathyroidism of renal origin; J96.11 Chronic respiratory failure with hypoxia; I13.2 Hypertensive heart and chronic kidney disease with heart failure and with stage 5 chronic kidney disease, or end stage renal disease; I50.32 Chronic diastolic (congestive) heart failure; E87.2 Acidosis; E87.1 Hypo-osmolality and hyponatremia; D62 Acute posthemorrhagic anemia; E46 Unspecified protein-calorie malnutrition; E87.4 Mixed disorder of acid-base balance; J44.9 Chronic obstructive pulmonary disease, unspecified; Z99.81 Dependence on supplemental oxygen; I48.0 Paroxysmal atrial fibrillation; Z95.0 Presence of cardiac pacemaker; D63.1 Anemia in chronic kidney disease; F50.9 Eating disorder, unspecified; Z86.16 Personal history of COVID-19; I25.10 Atherosclerotic heart disease of native coronary artery without angina pectoris; E11.22 Type 2 diabetes mellitus with diabetic chronic kidney disease; K21.9 Gastro-esophageal reflux disease without esophagitis; G47.33 Obstructive sleep apnea (adult) (pediatric); E78.5 Hyperlipidemia, unspecified; M81.0 Age-related osteoporosis without current pathological fracture; Z66 Do not resuscitate; Z87.891 Personal history of nicotine dependence; Z20.822 Contact with and (suspected) exposure to COVID-19; Z88.5 Allergy status to narcotic agent; Z88.8 Allergy status to other drugs, medicaments and biological substances; Z79.899 Other long term (current) drug therapy; W01.0XXA Fall on same level from slipping, tripping and stumbling without subsequent striking against object, initial encounter; Y92.009 Unspecified place in unspecified non-institutional (private) residence as the place of occurrence of the external cause; M10.9 Gout, unspecified; Z99.2 Dependence on renal dialysis; D72.829 Elevated white blood cell count, unspecified; I73.9 Peripheral vascular disease, unspecified; E87.5 Hyperkalemia; I95.9 Hypotension, unspecified

== ENCOUNTER 2021-08-22 13:47 | Inpatient (IN) | payer MEDICARE ==
[~2021-08-22] VITALS: Ht 160 cm; Wt 80.5 kg
[~2021-08-22 13:47] MED LIST changes: +CALC200T15 PO; +CEFD300CAP PO; +DEXT4TAB15 PO; +HEPA500023 SQ; +HYDR-3715 PO; +INSUHUMDS SC; +IPRA2IN INH; +LEVA12INH INH; +LIDO5TD TD; +MIRA1POW3 PO; +REGL5TAB2 PO; +ROSU10TA6 PO; +SENN-52 PO; +SUCR1ORA PO; +SYMB16INH INH; +TRAM50TA2 PO
[2021-08-22] MEDS ORDERED: ONDANSETRON 4 MG ORAL DISINTEGRATING TAB PO PRN (14:40)
[2021-08-22] MEDS ORDERED: CALCIUM CARBONATE 500 MG CHEW U/D PO PRN (14:40)
[2021-08-22] MEDS ORDERED: GLUCAGON INJ 1MG VIAL SC PRN (14:40)
[2021-08-22] MEDS ORDERED: CEFDINIR 300 MG CAP (OMNICEF) PO SCH (14:40)
[2021-08-22] MEDS ORDERED: GLUCOSE 4GM CHEW TABLET PO PRN (14:40)
[2021-08-22] MEDS ORDERED: DEXTROSE 50% 50 ML SYRINGE IV PRN (14:40)
[2021-08-22 15:40] VITALS: BP 139/60
[2021-08-22] MEDS ORDERED: PILL CUTTER 1 EACH XX PRN (16:20)
[2021-08-22] MEDS: SUCRALFATE 1 GM TAB PO SCH ×2 (17:07→20:38)
[2021-08-22] MEDS: HumaLOG INSULIN (NovoLOG) PER UNIT SC SCH ×2 (17:07→20:49)
[2021-08-22] MEDS: METOCLOPRAMIDE 5 MG TAB PO SCH ×2 (17:07→20:37)
[2021-08-22] MEDS: REMEDY PHYTOPLEX Z-GUARD PASTE 113GM TUBE (FROM STOREROOM PRODUCT) TOP SCH ×3 (17:08→20:52)
[2021-08-22] MEDS: guaiFENesin 200 MG TAB PO SCH ×2 (17:08→20:38)
[2021-08-22] MEDS ORDERED: SODIUM CHLORIDE 0.9% 1000ML IV PRN (19:30)
[2021-08-22 20:00] VITALS: BP 142/66
[2021-08-22] MEDS: LEVALBUTEROL HFA 45MCG/ACT 15 GM INHALER INH SCH (20:00)
[2021-08-22] MEDS: IPRATROPIUM HFA INHALER 12.9 GRAMS (ATROVENT HFA) INH SCH (20:00)
[2021-08-22] MEDS: ACETAMINOPHEN 500 MG TAB PO SCH (20:37)
[2021-08-22] MEDS: SENOKOT S TAB PO SCH (20:37)
[2021-08-22] MEDS: HEPARIN SOD (PORCINE) 5000UNITS/ML 1ML VIAL/SYRINGE SC SCH (20:38)
[2021-08-22] MEDS: PANTOPRAZOLE 40MG TAB (PROTONIX) PO SCH (20:38)
[2021-08-22] MEDS: **NOTE PATIENT COMMENT** MISC XX SCH (20:40)
[2021-08-22] MEDS: SYMBICORT 160/4.5MCG INHALER 6GM INH SCH (20:49)
[2021-08-22] MEDS: traMADol 50 MG TAB PO PRN (22:21)
[2021-08-23 05:53] VITALS: BP 133/63
[2021-08-23] MEDS: SYMBICORT 160/4.5MCG INHALER 6GM INH SCH ×2 (07:30→21:06)
[2021-08-23] MEDS: LEVALBUTEROL HFA 45MCG/ACT 15 GM INHALER INH SCH ×4 (07:31→20:00)
[2021-08-23] MEDS: IPRATROPIUM HFA INHALER 12.9 GRAMS (ATROVENT HFA) INH SCH ×3 (07:31→20:00)
[2021-08-23 07:54] LABS: BASO # 0.1 10^3/uL (0.0-0.2); BASO % 0.7 % (0.0-1.0); EOS # 0.2 10^3/uL (0.0-0.5); EOS % 2.2 % (0.0-3.0); HEMATOCRIT 29.3 % (36.0-47.0); HEMOGLOBIN 8.4 g/dl (12.0-15.5); LYMPH # 1.6 10^3/uL (1.5-5.0); LYMPH % 14.3 % (24.0-44.0); MEAN CORPUSCULAR HEMOGLOBIN 29.2 pg (27.0-33.0); MEAN CORPUSCULAR HGB CONC 28.7 g/dl (32.0-36.5); MEAN CORPUSCULAR VOLUME 101.7 fl (80.0-96.0); MONO # 1.1 10^3/uL (0.0-0.8); MONO % 10.2 % (2.0-8.0); NEUTROPHILS # 7.7 10^3/uL (1.5-8.5); NEUTROPHILS % 69.5 % (36.0-66.0); PLATELET COUNT, AUTOMATED 231 10^3/uL (150-450); RED BLOOD COUNT 2.88 10^6/uL (4.00-5.40); WHITE BLOOD COUNT 11.1 10^3/uL (4.0-10.0)
[2021-08-23 08:14] LABS: ALBUMIN 1.8 GM/DL (3.2-5.2); BILIRUBIN,TOTAL 0.3 MG/DL (0.2-1.0); CALCIUM LEVEL 8.5 MG/DL (8.8-10.2); CREATININE FOR GFR 2.26 MG/DL (0.55-1.30); GLOMERULAR FILTRATION RATE 22.5 (>39); POTASSIUM SERUM 3.9 MEQ/L (3.5-5.1)
[2021-08-23] MEDS: ACETAMINOPHEN 500 MG TAB PO SCH ×3 (08:46→20:49)
[2021-08-23] MEDS: SUCRALFATE 1 GM TAB PO SCH ×4 (08:46→20:48)
[2021-08-23] MEDS: METOCLOPRAMIDE 5 MG TAB PO SCH ×4 (08:47→20:49)
[2021-08-23] MEDS: PANTOPRAZOLE 40MG TAB (PROTONIX) PO SCH ×2 (08:47→20:48)
[2021-08-23] MEDS: ATORVASTATIN 20 MG TAB PO SCH (08:47)
[2021-08-23] MEDS: AMIODARONE 200 MG TAB (PACERONE) PO SCH (08:47)
[2021-08-23] MEDS: HumaLOG INSULIN (NovoLOG) PER UNIT SC SCH ×4 (08:47→20:49)
[2021-08-23] MEDS: traMADol 50 MG TAB PO PRN (08:47)
[2021-08-23] MEDS: guaiFENesin 200 MG TAB PO SCH ×3 (08:47→20:48)
[2021-08-23] MEDS: SENOKOT S TAB PO SCH ×2 (08:47→20:49)
[2021-08-23] MEDS: LIDOCAINE 5% (LIDODERM) PATCH TD SCH (08:48)
[2021-08-23] MEDS: MIRALAX *UNIT DOSE* 17GM PACKET PO SCH (08:48)
[2021-08-23] MEDS: REMEDY PHYTOPLEX Z-GUARD PASTE 113GM TUBE (FROM STOREROOM PRODUCT) TOP SCH ×3 (08:48→20:50)
[2021-08-23] MEDS: HEPARIN SOD (PORCINE) 5000UNITS/ML 1ML VIAL/SYRINGE SC SCH ×2 (08:48→20:49)
--- NOTE | 2021-08-23 09:15 | HPEPDOC ---
Site Lead Note DATE OF ADMISSION: 08-22-21 DATE OF SERVICE: 08-23-21 TIME OF ADMISSION: Please refer to physician's admission order. SOURCE OF ADMISSION INFORMATION: [facility] record and patient CHIEF COMPLAINT: left hip fracture HISTORY OF PRESENT ILLNESS: 76F pmh ESRD on HD, COPD on home , Afib s/p watchman device placement and pacemaker, CHF, PAD s/p femoral-femoral bypass, CAD, Covid PNA June 2021, anemia of chronic disease and iron deficiency who fell onto her left side and presented to [facility] ED on 08-10-21 with pain and inability to walk with CT of her left LE revealing Acute, comminuted, impacted, displaced 3 part left in tertrochanteric fracture in varus alignment and a complete fracture of the base of the left femoral neck with surrounding soft tissue swelling, bruising, and hemorrhage. She was evaluated by orthopedics who performed an ORIF on 08-11-21 for a left hip peritrochanteric fracture. She was followed closely by renal and her hospital course was complicated by hypercarbic respiratory failure due to opioids requiring BIPAP and aspiration PNA. She was also treated for digoxin toxicity. She had significant mobility and ADL impairments and deemed medically appropriate for discharge to ARU on 08-22-21. REVIEW OF SYSTEMS: The following is a completed review of systems and has been reviewed. Review of systems otherwise unremarkable. PAIN: Patient self reports left hip pain EYES: No recent vision changes EARS, NOSE, & THROAT: No throat pain, or dysphagia, or rhinorrhea CARDIOVASCULAR: Denies chest pain or palpitations PULMONARY: Denies shortness of breath, +dyspnea on exertion (chronic) GASTROINTESTINAL: Denies constipation/diarrhea GENITOURINARY: oliguric MUSCULOSKELETAL: s/p left femur fracture NEUROLOGICAL:denies paresthesias HEMATOLOGICAL: +anemia SKIN: + left hip incision PSYCHIATRIC: Unremarkable All other review of systems found to be negative. PAST MEDICAL HISTORY: As per HPI PAST SURGICAL HISTORY: As per HPI ALLERGIES: Please see below. MEDICATIONS: Please see below. FAMILY HISTORY: DM and HTN SOCIAL HISTORY: Former smoker, occasional etoh, no illicit drugs DIET: consistent carb, low sodium PHYSICAL EXAMINATION: VITAL SIGNS: Please see below. GENERAL: Pleasant and cooperative. No acute distress. HEENT: PERRL. Extraocular movements intact. Clear conjunctiva CARDIOVASCULAR: Regular rate and rhythm. No murmurs, rubs, or gallops LUNGS: Clear to auscultation bilaterally. No wheezes. No rhonchi ABDOMEN: Soft, nontender, nondistended. Positive bowel sounds. Normal active bowel sounds NEUROLOGICAL: Alert and oriented times three. Cranial nerves II through XII grossly intact. Sensation grossly intact in all 4limbs EXTREMITIES: 4+\5 strength bilateral upper extremities. 4\5 strength right lower extremity. 4/5 ankle DF/EHL (limited exam due to hip facture) SKIN: sacrum with scant areas of blanchable erythema , left hip incision c/d/i no periwound induration LABORATORY DATA: Please see below. IMAGING: Imaging documentation personally reviewed by record FUNCTIONAL STATUS: Premorbid: Mod-Independent with all activities of daily life as well as mobility, requiring some help with bathing and IADLs On Admission: Mod-Max assist with functional transfers, dressing, toileting, ambulation GOALS: Contact guard ambulation household distances, Mod-I wheelchair mobility, supervision-contact guard for dressing, toileting, bathing ASSESSMENT:76-year-old F with past medical history of afib s/p watchamn's procedure, PM, CHF ESRD on HD who presents status post PLAN: 1. REhab- PT/OT advance mobility and ADLs, strengthen/stretch/maintain ROM all 4 limbs 2.Ortho- left femur fracture s/p ORIF cont WBAT and pain management- f/u ortho on d/c 3. CArdiac- hx of CHF cont dialy weights, fluid restrict, on HD for fluid management - Afib s/p watchmans device and PM cont amiodarone -HLD cont statin -medicine consulted to assist in overall management 4. Resp- hx of COPD on home with recent Covid PNA in June- cont inhaler treatments, guaifenesin, and Cefdinir started on acute care side out of concern for PNA 5. REnal- ESRD on HD renal consulted -s/p permacath placement 6. heme- anemia of chronic disease- renal managing 7. GI ppx- sucralfate and protonix -gastroparesis? cont reglan with meals 8. DVT ppx- heparin 9. Endo-: hx of DM cont ISS 10. Pain- judicious use of norco as patient had opioid induced hypercarbic respiratory failure, cont tylenol and lidoderm patch 11. Dispo: TBD POST ADMISSION PHYSICIAN EVALUATION: Medical and functional status: Description of medical status, medical assessment: As above. Rehabilitation diagnosis and current and prior cold morbid medical conditions as above. Risk of complications and plans to mitigate them as above. Description of functional status current status is as above. Prior status as above. Status compared to preadmission: There are no clinically significant differences between the patient's current status and the information described on the preadmission screening document. Treatment plan anticipated: Treatment plan is as described above. Required disciplines including physical therapy, occupational therapy, others as noted above Intensity of services: 3 hours a day, 6 days a week. Special considerations: There are no specific special or safety considerations that would likely preclude immediate implementation of an intensive rehabilitation program or subsequently influence the plan of care. ATTESTATION: Considering all the information above, it is my best judgment that this patient requires intensive rehabilitation therapy as described above and an inpatient hospital environment due to the complexity of nursing, medical, and rehabilitation needs required by the patient. Furthermore, this patient can reasonably be expected to participate in an benefit from an inpatient rehabilitation stay with an interdisciplinary team approach to the delivery of rehabilitation care under the direction and supervision of rehabilitation physician. PROGNOSIS:good ESTIMATED LENGTH OF STAY:12-16 days. PROJECTED DISCHARGE DESTINATION: Home with family support and any durable medi dominique equipment required to increase functional safety and mobility. TIME SPENT COUNSELING AND COORDINATING INITIAL CARE: Greater than 70 minutes. Vital Signs Vital Sign - Last 24 Hours 08/22/21 08/22/21 08/22/21 08/22/21 15:40 20:00 20:00 22:21 Temp 97.8 98.5 Pulse 71 71 Resp 20 20 16 B/P (MAP) 139/60 (86) 142/66 (91) Pulse Ox 96 93 O2 Delivery Nasal Cannula Nasal Cannula O2 Flow Rate 3.0 3.0 3.0 08/22/21 08/23/21 08/23/21 22:51 05:53 08:47 Temp 97.6 Pulse 73 Resp 18 16 18 B/P (MAP) 133/63 (86) Pulse Ox 92 O2 Delivery Nasal Cannula O2 Flow Rate 3.0 Laboratory Data CBC/BMP Laboratory Tests 08/23/21 07:21 Labs 24H Laboratory Tests 2 08/22/21 16:46: Bedside Glucose (Misc Panel) 107 08/22/21 20:40: Bedside Glucose (Misc Panel) 148H 08/23/21 05:56: Bedside Glucose (Misc Panel) 104 08/23/21 07:21: Immature Granulocyte % (Auto) 3.1H, Neutrophils (%) (Auto) 69.5H, Lymphocytes (%) (Auto) 14.3L, Monocytes (%) (Auto) 10.2H, Eosinophils (%) (Auto) 2.2, Bas ophils (%) (Auto) 0.7, Neutrophils # (Auto) 7.7, Lymphocytes # (Auto) 1.6, Monocytes # (Auto) 1.1H, Eosinophils # (Auto) 0.2, Basophils # (Auto) 0.1, Nucleated Red Blood Cells % (auto) 0.0, Anion Gap 5L, Glomerular Filtration Rate 22.5L, Calcium Level 8.5L, Total Bilirubin 0.3, Aspartate Amino Transf (AST/SGOT) 21, Alanine Aminotransferase (ALT/SGPT) 22, Alkaline Phosphatase 90, Total Protein 6.0L, Albumin 1.8L, Albumin/Globulin Ratio 0.4L FSBS Laboratory Tests Test 08/22/21 16:46 08/22/21 20:40 08/23/21 05:56 Range/Units Bedside Glucose (Misc Panel) 107 148 104 83-110 MG/DL Home Medications Scheduled Allopurinol (Allopurinol) 100 Mg Tablet, 100 MG PO DAILY, (Reported) Amiodarone HCl (Amiodarone HCl) 200 Mg Tablet, 200 MG PO DAILY, (Reported) Atorvastatin Calcium (Atorvastatin Calcium) 20 Mg Tablet, 20 MG PO DAILY, (Reported) Budesonide/Formoterol (Symbicort 160-4.5 Mcg Inhaler) 6 Gm Hfa.aer.ad, 2 PUFF INH RBID Calcitriol (Calcitriol) 0.25 Mcg Capsule, 0.25 MCG PO DAILY, (Reported) Calcium Carbonate (Calcium) 600 Mg Tablet, 600 MG PO BID, (Reported) Cefdinir (Cefdinir) 300 Mg Capsule, 300 MG PO HD Cholecalciferol (Vitamin D3) (Vitamin D3) 1,000 Unit Tablet, 1,000 UNITS PO QPM, (Reported) TAKES AT 1600 Ferrous Sulfate (Ferrous Sulfate) 325 Mg Tablet, 325 MG PO BID, (Reported) Fluticasone/Vilanterol (Breo Ellipta 200-25 Mcg INH) 1 Each Blst.w.dev, 1 PUFF INH DAILY, (Reported) Folic Acid (Folic Acid) 1 Mg Tablet, 1 MG PO DAILY, (Reported) Furosemide (Furosemide) 40 Mg Tablet, 80 MG PO DAILY, (Reported) Heparin Sodium,Porcine (Heparin Sodium) 5,000 Unit/1 Ml Syringe, 5,000 UNITS SQ BID Insulin Human Lispro (Humalog) 100 Unit/1 Ml Vial, 0 UNITS SC AC Insulin Human Lispro (Humalog) 100 Unit/1 Ml Vial, 0 UNITS SC QHS Ipratropium [place] (Ipratropium [place]) 0.2 Mg/1 Ml Solution, 0.5 MG INH RTID Levalbuterol Hydrochloride (Xopenex Concentrate) 1.25 Mg/0.5 Ml Vial.neb, 0.63 MG INH RTID Lidocaine (Lidocaine) 5% Adh..patch, 2 PATCH TD DAILY Metoclopramide Hcl (Reglan) 5 Mg Tablet, 5 MG PO ACHS Pantoprazole Sodium (Pantoprazole Sodium) 40 Mg Tablet.dr, 40 MG PO BID Polyethylene Glycol 3350 (Miralax) 17 Gm Powd.pack, 1 PKT PO DAILY Raloxifene HCl (Raloxifene HCl) 60 Mg Tablet, 60 MG PO DAILY, (Reported) Rosuvastatin Calcium (Rosuvastatin Calcium) 10 Mg Tablet, 10 MG PO DAILY, (Reported) Sennosides/Docusate Sodium (Senna Plus Tablet) 1 Each Tablet, 2 TAB PO BID Sucralfate (Sucralfate) 1 Gm/10 Ml Oral.susp, 1 GM PO ACHS Scheduled PRN Albuterol Sulf (Albuterol Sulfate) 2.5 Mg/3 Ml Vial.neb, 2.5 MG INH QID PRN for SHORTNESS OF BREATH, (Reported) Albuterol Sulfate (Ventolin Hfa) 18 Gm Hfa.aer.ad, 2 PUFFS INH Q6H PRN for SOB/WHEEZING, (Reported) Calcium Carbonate (Calcium Carbonate) 200 Mg Tab.chew, 1,000 MG PO Q4HP PRN for HEARTBURN Dextrose (Glucose) 4 Gm Tab.chew, 0 GM PO ASDIRECTED PRN for SEE LABEL COMMENTS Guaifenesin (Mucinex) 600 Mg Tab.er.12h, 600 MG PO BIDP PRN for congestion, cough Hydrocodone/Acetaminophen (Hydrocodone-Acetamin 5-325 mg) 1 Each Tablet, 1 TAB PO Q8HP PRN for PAIN LEVEL 8-10 Tramadol HCl (Tramadol HCl) 50 Mg Tablet, 25 MG PO Q12HP PRN for PAIN LEVEL 5-7 Allergies Coded Allergies: codeine (Verified Adverse Reaction, Intermediate, stabbing abd pain, 11/30/20) phenytoin (Verified Adverse Reaction, Intermediate, feels like being stabbed in abd, 11/30/20) gabapentin (Verified Adverse Reaction, Mild, VERTIGO, 11/30/20) oxycodone (Verified Adverse Reaction, Mild, SHAKINESS, 11/30/20) A-FIB/CHADSVASC A-FIB History Current/History of A-Fib/PAF?: No Current PO Anticoag Therapy: No DIXON CHENG MD Aug 23, 2021 09:14
[2021-08-23] MEDS ORDERED: DARBEPOETIN 100 MCG/0.5 ML *DIALYSIS* SYRINGE (J0882) IV SCH (10:00)
[2021-08-23] MEDS: NORCO, ANEXSIA 5/325MG TABLET (HYDROcodone/ACETAMINOPHEN) PO SCH (10:37)
--- NOTE | 2021-08-23 13:13 | CR.PDOC ---
General Date of Consultation: Aug 23, 2021 Referring Provider: DIXON CHENG MD Consultation CHIEF COMPLAINT: left hip fracture for rehab services REASON FOR CONSULT: med mgt of chronic medical problems HISTORY OF PRESENT ILLNESS: 76-year-old female from home with past medical history of ESRD, COPD on home oxy gen, atrial fibrillation status post watchman device placement as well as pacemaker, congestive heart failure, chronic anemia, iron deficiency admitted to the medical service and transferred to acute rehab unit on 08/22/2021 after being admitted for a mechanical fall while walking to the bathroom with her walker was found to have an acute left femoral intertrochanteric fracture as well as a separate left greater trochanter fracture, and old right pubic rami fracture. Her medical hospitalization was complicated by acute on chronic respiratory failure with hypercarbia and hypoxia thought to be related to opioids, aspiration pneumonia for which she was treated with a full course of antibiotics, transferred to ICU and placed on BIPAP, fluid overload managed by dialysis, and anemia requiring blood transfusion, medically optimized and went to the operating room on 08/11/21 for intramedullary rodding of the femur. Patient was transferred to the medical floor and had intermittent complaints of chest pain and abdominal pain negative work-up for acute cardiac ischemia, placed on PPI and Carafate for possible gastritis. Patient was discharged to acute rehab unit for rehab services. Today she has no new complaints aside from some leakage at the permacath on the right anterior chest requesting dressing to be changed. 10 point review of system otherwise negative. PAST MEDICAL HISTORY Left femoral neck fracture s/p intramedullary rodding of femur 08/11/21 Acute on chronic respiratory failure with hypercarbia due to narcotics Stress gastritis. Possible aspiration pneumonia Acute on Chronic anemia received 3 units of PRBC. Malfunctioning permacath s/p permacath exchange ESRD Secondary hyperparathyroidism Anemia of chronic disease COPD with chronic hypoxic and hypercarbic respiratory failure on 3 L oxygen at home History of COVID pneumonia in beginning of June 2021 along with rhinovirus infection. RSV infection and bacterial pneumonia in end of June 2021 Hypertension Type 2 Diabetes Mellitus Coronary artery disease Congestive heart failure Hyperuricemia GERD CATHRYN Paroxysmal atrial fibrillation status post watchman left atrial appendage closure implant 2019 Pacemaker Implant - 2014 Peripheral artery disease status post Femoral-Femoral bypass- 2002 Hyperlipidemia Iron deficiency Osteoporosis PAST SURGICAL HISTORY: s/p Intramedullary rodding of femur on 08/11/21 permacath exchange 08/21/21 HOSPITAL MEDICATIONS: SEE BELOW DISCHARGE MEDICATIONS: Please see below. ALLERGIES: Please see below. PHYSICAL EXAMINATION VITAL SIGNS: Please see below. General Exam: supine with head of elevation at 30 degrees in no distress no pallor or cyanosis HEENT: No JVD thyromegaly cervical lymphadenopathy face is symmetric tongue is midline moist mucous membranes Chest Exam: Diminished without rales or wheezing right permacath with bloody dressing Heart: S1-S2 regular rate rhythm Abdomen Exam: Positive bowel sounds soft nontender nondistended obese no rebound or guarding Extremity Exam: Trace edema bilaterally Skin Exam: Multiple ecchymotic areas bilateral upper extremities chest and abdomen LABORATORY DATA/imaging studies/microbiology: Please see below. ASSESSMENT AND PLAN: 76-year-old female from home with past medical history of ESRD, COPD on home oxygen, atrial fibrillation status post watchman device placement as well as pacemaker, congestive heart failure, chronic anemia, iron deficiency admitted to the medical service and transferred to acute rehab unit on 08/22/2021 after being admitted for a mechanical fall while walking to the bathroom with her walker was found to have an acute left femoral intertrochanteric fracture as well as a separate left greater trochanter fracture, and old right pubic rami fracture. Her medical hospitalization was complicated by acute on chronic respiratory failure with hypercarbia and hypoxia thought to be related to opioids, aspiration pneumonia for which she was treated with a full course of antibiotics, transferred to ICU and placed on BIPAP, fluid overload managed by dialysis, and anemia requiring blood transfusion, medically optimized and went to the operating room on 08/11/21 for intramedullary rodding of the femur. Patient was transferred to the medical floor and had intermittent complaints of chest pain and abdominal pain negative work-up for acute cardiac ischemia, placed on PPI and Carafate for possible gastritis. Patient was discharged to acute rehab unit for rehab services. Today she has no new complaints aside from some leakage at the permacath on the right anterior chest requesting dressing to be changed. 10 point review of system otherwise negative. Left femoral neck fracture s/p Intramedullary rodding of femur on 08/11/21 pain control with tylenol, Toradol, tramadol and norco We will have to be cautious about use of narcotics Incentive spirometer PT/OT bowel regimen. Epigastric pain likely stress gastritis continue PPI and sucralfate. Acute on chronic respiratory failure with hypercarbia due to narcotics given for her pain from the hip fracture. Now resolved Patient to continue CPAP at 10 cm of water at night and nasal cannula during the day maintain sats st 86% to 90% Possible aspiration pneumonia Patient sputum culture is growing Streptococcus pneumoniae heavy and Moraxella catarrhalis She did vomit in an obtunded state Continues to have persistent leukocytosis Completed cefdinir Leukocytosis Likely combination of infection and reactive to recent steroids and acute fracture improving slowly. ESRD HD as per nephrology Malfunctioning permacath permacath exchange by vascular surgery on 08/21/21 Anemia of chronic disease and iron deficiency and also likely blood loss in fracture hematoma. received 3 unit of PRBC also getting darbepoetin during HD Continue ferrous sulfate COPD with acute on chronic hypoxic and hypercarbic respiratory failure This was due to narcotics which is now is We will continue Symbicort in place of Breo continue lev albuterol We will continue with incentive spirometry and chest PT Diabetes We will place the patient on lispro as per sliding scale Fingerstick before meals and at bedtime carb consistent diet Hypertension Blood pressure well controlled without any medication. diltiazem has been stopped Atrial fibrillation status post placement of watchman device and pacemaker Continue amiodarone. Diltiazem stopped due to low blood pressure. Started on digoxin for rate control Patient is now in paced rhythm GERD Continue PPI Gout Continue allopurinol Vital Signs/I&O Vital Signs Date Time Temp Pulse Resp B/P (MAP) Pulse Ox O2 Delivery O2 Flow Rate FiO2 08/23/21 11:15 18 08/23/21 09:00 3.0 08/23/21 05:53 97.6 73 133/63 (86) 92 Nasal Cannula I&O- Last 24 Hours up to 6 AM 08/23/21 06:00 Intake Total 300 ml Output Total 1 ml Balance 299 ml Laboratory Data Labs 24H Laboratory Tests 2 08/22/21 16:46: Bedside Glucose (Misc Panel) 107 08/22/21 20:40: Bedside Glucose (Misc Panel) 148H 08/23/21 05:56: Bedside Glucose (Misc Panel) 104 08/23/21 07:21: Immature Granulocyte % (Auto) 3.1H, Neutrophils (%) (Auto) 69.5H, Lymphocytes (%) (Auto) 14.3L, Monocytes (%) (Auto) 10.2H, Eosinophils (%) (Auto) 2.2, Basophils (%) (Auto) 0.7, Neutrophils # (Auto) 7.7, Lymphocytes # (Auto) 1.6, Monocytes # (Auto) 1.1H, Eosinophils # (Auto) 0.2, Basophils # (Auto) 0.1, Nucleated Red Blood Cells % (auto) 0.0, Anion Gap 5L, Glomerular Filtration Rate 22.5L, Calcium Level 8.5L, Total Bilirubin 0.3, Aspartate Amino Transf (AST/SGOT) 21, Alanine Aminotransferase (ALT/SGPT) 22, Alkaline Phosphatase 90, Total Protein 6.0L, Albumin 1.8L, Albumin/Globulin Ratio 0.4L 08/23/21 12:09: Bedside Glucose (Misc Panel) 92 CBC/BMP Laboratory Tests 08/23/21 07:21 Allergies Coded Allergies: codeine (Verified Adverse Reaction, Intermediate, stabbing abd pain, 11/30/20) phenytoin (Verified Adverse Reaction, Intermediate, feels like being stabbed in abd, 11/30/20) gabapentin (Verified Adverse Reaction, Mild, VERTIGO, 11/30/20) oxycodone (Verified Adverse Reaction, Mild, SHAKINESS, 11/30/20) Home Medications Scheduled Allopurinol (Allopurinol) 100 Mg Tablet, 100 MG PO DAILY, (Reported) Amiodarone HCl (Amiodarone HCl) 200 Mg Tablet, 200 MG PO DAILY, (Reported) Atorvastatin Calcium (Atorvastatin Calcium) 20 Mg Tablet, 20 MG PO DAILY, (Reported) Budesonide/Formoterol (Symbicort 160-4.5 Mcg Inhaler) 6 Gm Hfa.aer.ad, 2 PUFF INH RBID for 30 Days, #1 Calcitriol (Calcitriol) 0.25 Mcg Capsule, 0.25 MCG PO DAILY, (Reported) Calcium Carbonate (Calcium) 600 Mg Tablet, 600 MG PO BID, (Reported) Cefdinir (Cefdinir) 300 Mg Capsule, 300 MG PO HD for 10 Days, #10 Cholecalciferol (Vitamin D3) (Vitamin D3) 1,000 Unit Tablet, 1,000 UNITS PO QPM, (Reported) TAKES AT 1600 Ferrous Sulfate (Ferrous Sulfate) 325 Mg Tablet, 325 MG PO BID, (Reported) Fluticasone/Vilanterol (Breo Ellipta 200-25 Mcg INH) 1 Each Blst.w.dev, 1 PUFF INH DAILY, (Reported) Folic Acid (Folic Acid) 1 Mg Tablet, 1 MG PO DAILY, (Reported) Furosemide (Furosemide) 40 Mg Tablet, 80 MG PO DAILY, (Reported) Heparin Sodium,Porcine (Heparin Sodium) 5,000 Unit/1 Ml Syringe, 5,000 UNITS SQ BID for 30 Days, #60 Insulin Human Lispro (Humalog) 100 Unit/1 Ml Vial, 0 UNITS SC AC for 5 Days, #50 Insulin Human Lispro (Humalog) 100 Unit/1 Ml Vial, 0 UNITS SC QHS for 5 Days, #5 Ipratropium Peculiar (Ipratropium Peculiar) 0.2 Mg/1 Ml Solution, 0.5 MG INH RTID for 5 Days, #15 Levalbuterol Hydrochloride (Xopenex Concentrate) 1.25 Mg/0.5 Ml Vial.neb, 0.63 MG INH RTID for 5 Days, #15 Lidocaine (Lidocaine) 5% Adh..patch, 2 PATCH TD DAILY for 10 Days, #10 Metoclopramide Hcl (Reglan) 5 Mg Tablet, 5 MG PO ACHS, #20 Pantoprazole Sodium (Pantoprazole Sodium) 40 Mg Tablet.dr, 40 MG PO BID for 30 Days, #60 Polyethylene Glycol 3350 (Miralax) 17 Gm Powd.pack, 1 PKT PO DAILY for 10 Days, #10 Raloxifene HCl (Raloxifene HCl) 60 Mg Tablet, 60 MG PO DAILY, (Reported) Rosuvastatin Calcium (Rosuvastatin Calcium) 10 Mg Tablet, 10 MG PO DAILY, (Reported) Sennosides/Docusate Sodium (Senna Plus Tablet) 1 Each Tablet, 2 TAB PO BID for 10 Days, #40 Sucralfate (Sucralfate) 1 Gm/10 Ml Oral.susp, 1 GM PO ACHS for 10 Days, #40 Scheduled PRN Albuterol Sulf (Albuterol Sulfate) 2.5 Mg/3 Ml Vial.neb, 2.5 MG INH QID PRN for SHORTNESS OF BREATH, (Reported) Albuterol Sulfate (Ventolin Hfa) 18 Gm Hfa.aer.ad, 2 PUFFS INH Q6H PRN for SOB/WHEEZING, (Reported) Calcium Carbonate (Calcium Carbonate) 200 Mg Tab.chew, 1,000 MG PO Q4HP PRN for HEARTBURN for 5 Days, #30 Dextrose (Glucose) 4 Gm Tab.chew, 0 GM PO ASDIRECTED PRN for SEE LABEL COMMENTS for 5 Days, #5 Guaifenesin (Mucinex) 600 Mg Tab.er.12h, 600 MG PO BIDP PRN for congestion, cough for 10 Days, #20 Hydrocodone/Acetaminophen (Hydrocodone-Acetamin 5-325 mg) 1 Each Tablet, 1 TAB PO Q8HP PRN for PAIN LEVEL 8-10 for 5 Days, #15 Tramadol HCl (Tramadol HCl) 50 Mg Tablet, 25 MG PO Q12HP PRN for PAIN LEVEL 5-7 for 5 Days, #10 SHEREE LIMA MD Aug 23, 2021 13:13
[2021-08-23] MEDS: IRON SUCROSE 100MG 5ML VIAL (J1756 PER 1MG) IV SCH (13:38)
--- NOTE | 2021-08-23 15:46 | IPN ---
PROGRESS NOTE DATE: 08/23/2021 SUBJECTIVE: Zita was seen and examined this afternoon in the hemodialysis unit receiving a dialysis treatment. She has no new complaints. Reports rehabilitation has started off well. Denies any shortness of breath beyond her usual baseline. Dialysis has been uneventful. VITAL SIGNS: Temperature 97.6, pulse 73, respiratory rate 16, blood pressure 133/63, saturating 92% on 3 liters nasal cannula. Weight in the bed scale today is 84 kg. GENERAL: Patient is seen awake, alert, oriented, receiving her treatment in no distress. Extraocular muscles are intact. Tongue is moist. Neck is supple. Jugular veins are not elevated. HEART: Sounds are regular, S1, S2. There is no pericardial effusion. LUNGS: Show diminished breath sounds bilaterally but no crackles or rales. She is comfortable on nasal cannula. There is a tunneled Perm-A-Cath in the right chest wall with some dried blood under the dressing. ABDOMEN: Soft and nontender. EXTREMITIES: There is no leg edema. There is no cyanosis. NEUROLOGIC: She is oriented times three. ABDOMEN: Soft and nontender. LABORATORY DATA: White count 11.1, hemoglobin 8.4, platelets 231. Sodium 139, potassium 3.9, bicarbonate 32, BUN 38, albumin 1.8. INPATIENT MEDICATIONS: Reviewed by myself and no changes noted as compared to yesterday. PROBLEMS: 1. End-stage renal disease, on hemodialysis on a Friday, , Friday schedule. Patient is being dialyzed today with goal fluid removal of 1.5 liters as tolerated by hemodynamics. Her electrolytes and volume status are acceptable. Continue current dialysis prescription. 2. Anemia secondary to iron deficiency, end-stage renal disease, and inflammatory state. She is written to receive two more doses of IV Venofer with dialysis, and she is also receiving Aranesp. I would transfuse for hemoglobin less than 8. 3. Secondary hyperparathyroidism of renal origin. Prior labs are reviewed. Her parathyroid hormone level is less than 100, and she is not currently on any phosphorus binders. I will repeat these labs, as it has been more than a month since they were done. 4. Left femoral neck fracture status post intramedullary rodding of femur on August 11. Patient continues with rehabilitation in the acute rehabilitation unit. 5. Chronic obstructive pulmonary disease (COPD) with chronic oxygen dependence. Patient continues on her usual amount of home oxygen and also on her usual bronchodilators and inhaled steroids. Her volume status is well compensated, and she is tolerating dialysis with fluid removal without issue.
[2021-08-23 17:25] VITALS: BP 123/56
[2021-08-23 20:00] VITALS: BP 129/77
[2021-08-23] MEDS: **NOTE PATIENT COMMENT** MISC XX SCH (20:50)
[2021-08-24] MEDS: NORCO, ANEXSIA 5/325MG TABLET (HYDROcodone/ACETAMINOPHEN) PO PRN ×2 (01:34→13:01)
[2021-08-24 06:00] VITALS: BP 138/63
[2021-08-24 06:27] LABS: BASO # 0.1 10^3/uL (0.0-0.2); BASO % 0.8 % (0.0-1.0); EOS # 0.3 10^3/uL (0.0-0.5); EOS % 2.4 % (0.0-3.0); HEMATOCRIT 32.5 % (36.0-47.0); HEMOGLOBIN 9.4 g/dl (12.0-15.5); LYMPH # 1.9 10^3/uL (1.5-5.0); LYMPH % 16.4 % (24.0-44.0); MEAN CORPUSCULAR HEMOGLOBIN 29.5 pg (27.0-33.0); MEAN CORPUSCULAR HGB CONC 28.9 g/dl (32.0-36.5); MEAN CORPUSCULAR VOLUME 101.9 fl (80.0-96.0); MONO % 8.8 % (2.0-8.0); NEUTROPHILS # 7.8 10^3/uL (1.5-8.5); NEUTROPHILS % 67.4 % (36.0-66.0); PLATELET COUNT, AUTOMATED 245 10^3/uL (150-450); RED BLOOD COUNT 3.19 10^6/uL (4.00-5.40); WHITE BLOOD COUNT 11.5 10^3/uL (4.0-10.0)
[2021-08-24] MEDS: SUCRALFATE 1 GM TAB PO SCH ×4 (06:40→20:41)
[2021-08-24] MEDS: NORCO, ANEXSIA 5/325MG TABLET (HYDROcodone/ACETAMINOPHEN) PO SCH (06:40)
[2021-08-24] MEDS: METOCLOPRAMIDE 5 MG TAB PO SCH ×4 (06:41→20:42)
[2021-08-24 06:55] LABS: CALCIUM LEVEL 8.8 MG/DL (8.8-10.2); CREATININE FOR GFR 1.57 MG/DL (0.55-1.30); GLOMERULAR FILTRATION RATE 34.3 (>39); PHOSPHORUS LEVEL 2.3 MG/DL (2.5-4.9); POTASSIUM SERUM 4.1 MEQ/L (3.5-5.1)
[2021-08-24] MEDS: HumaLOG INSULIN (NovoLOG) PER UNIT SC SCH ×4 (07:30→20:37)
[2021-08-24] MEDS: LEVALBUTEROL HFA 45MCG/ACT 15 GM INHALER INH SCH ×4 (07:43→19:50)
[2021-08-24] MEDS: IPRATROPIUM HFA INHALER 12.9 GRAMS (ATROVENT HFA) INH SCH ×3 (07:43→19:50)
[2021-08-24] MEDS: SYMBICORT 160/4.5MCG INHALER 6GM INH SCH ×2 (07:43→19:50)
[2021-08-24] MEDS: ATORVASTATIN 20 MG TAB PO SCH (08:59)
[2021-08-24] MEDS: SENOKOT S TAB PO SCH ×2 (08:59→20:41)
[2021-08-24] MEDS: PANTOPRAZOLE 40MG TAB (PROTONIX) PO SCH ×2 (09:00→20:41)
[2021-08-24] MEDS: AMIODARONE 200 MG TAB (PACERONE) PO SCH (09:00)
[2021-08-24] MEDS: guaiFENesin 200 MG TAB PO SCH ×3 (09:00→20:41)
[2021-08-24] MEDS: MIRALAX *UNIT DOSE* 17GM PACKET PO SCH (09:00)
[2021-08-24] MEDS: ACETAMINOPHEN 500 MG TAB PO SCH ×3 (09:02→20:42)
[2021-08-24] MEDS: HEPARIN SOD (PORCINE) 5000UNITS/ML 1ML VIAL/SYRINGE SC SCH ×2 (09:02→20:42)
[2021-08-24] MEDS: LIDOCAINE 5% (LIDODERM) PATCH TD SCH (09:03)
[2021-08-24] MEDS: REMEDY PHYTOPLEX Z-GUARD PASTE 113GM TUBE (FROM STOREROOM PRODUCT) TOP SCH ×3 (09:03→20:42)
[2021-08-24 09:41] LABS: PTH INTACT 35.5 PG/ML (18.5-88.0)
[2021-08-24 14:00] VITALS: BP 170/71
[2021-08-24] MEDS ORDERED: HOME MED LIST COMPLETE! XX SCH (16:15)
[2021-08-24 20:00] VITALS: BP 113/56
[2021-08-24] MEDS: **NOTE PATIENT COMMENT** MISC XX SCH (20:43)
[2021-08-25 06:00] VITALS: BP 141/64
[2021-08-25] MEDS: NORCO, ANEXSIA 5/325MG TABLET (HYDROcodone/ACETAMINOPHEN) PO SCH (06:27)
[2021-08-25] MEDS: HumaLOG INSULIN (NovoLOG) PER UNIT SC SCH ×4 (07:30→20:42)
[2021-08-25] MEDS: SYMBICORT 160/4.5MCG INHALER 6GM INH SCH ×2 (07:31→19:45)
[2021-08-25] MEDS: LEVALBUTEROL HFA 45MCG/ACT 15 GM INHALER INH SCH ×4 (07:32→19:45)
[2021-08-25] MEDS: IPRATROPIUM HFA INHALER 12.9 GRAMS (ATROVENT HFA) INH SCH ×3 (07:32→19:45)
[2021-08-25] MEDS: SUCRALFATE 1 GM TAB PO SCH ×4 (07:42→20:41)
[2021-08-25] MEDS: SENOKOT S TAB PO SCH ×2 (07:42→20:41)
[2021-08-25] MEDS: METOCLOPRAMIDE 5 MG TAB PO SCH ×4 (07:42→20:41)
[2021-08-25] MEDS: ACETAMINOPHEN 500 MG TAB PO SCH ×3 (07:42→20:41)
[2021-08-25] MEDS: guaiFENesin 200 MG TAB PO SCH ×3 (07:42→20:41)
[2021-08-25] MEDS: HEPARIN SOD (PORCINE) 5000UNITS/ML 1ML VIAL/SYRINGE SC SCH ×2 (07:43→20:41)
[2021-08-25] MEDS ORDERED: SODIUM CHLORIDE 0.9% 1000ML IV PRN (07:50)
[2021-08-25 08:28] LABS: HEMATOCRIT 31.4 % (36.0-47.0); HEMOGLOBIN 9.1 g/dl (12.0-15.5); MEAN CORPUSCULAR HEMOGLOBIN 29.6 pg (27.0-33.0); MEAN CORPUSCULAR VOLUME 102.3 fl (80.0-96.0); PLATELET COUNT, AUTOMATED 236 10^3/uL (150-450); RED BLOOD COUNT 3.07 10^6/uL (4.00-5.40); WHITE BLOOD COUNT 13.1 10^3/uL (4.0-10.0)
[2021-08-25] MEDS: REMEDY PHYTOPLEX Z-GUARD PASTE 113GM TUBE (FROM STOREROOM PRODUCT) TOP SCH ×3 (09:00→20:41)
[2021-08-25] MEDS: PANTOPRAZOLE 40MG TAB (PROTONIX) PO SCH ×2 (09:00→20:41)
[2021-08-25] MEDS: MIRALAX *UNIT DOSE* 17GM PACKET PO SCH (09:00)
[2021-08-25 09:25] LABS: CALCIUM LEVEL 8.9 MG/DL (8.8-10.2); CREATININE FOR GFR 2.44 MG/DL (0.55-1.30); GLOMERULAR FILTRATION RATE 20.6 (>39); POTASSIUM SERUM 3.4 MEQ/L (3.5-5.1); PTH INTACT 44.3 PG/ML (18.5-88.0)
[2021-08-25] MEDS: IRON SUCROSE 100MG 5ML VIAL (J1756 PER 1MG) IV SCH (10:04)
[2021-08-25] MEDS ORDERED: ALTEPLASE 2MG/2ML VIAL XX ONE ×2 (11:20→11:45)
--- NOTE | 2021-08-25 13:24 | IPNPDOC ---
Text Note Date of Service The patient was seen on 08/25/21. NOTE Subjective: Patient was seen during hemodialysis session this morning. She has no complaints. She denies having any fever, chills, shortness of breath, nausea, vomiting. She does report to have mild left heel pain likely from her fracture. Objective: General: Patient was getting her dialysis session this morning when I saw her, she was laying in bed, no apparent distress. Cardiac: S1 and S2 are normal, regular rate and rhythm normal no murmurs appreciated. She has right permacath placed in her chest. Lungs: Diminished breath sounds appreciated in bilateral lateral lungs. No crackles or wheezes appreciated. Abdomen: Soft, nontender, positive bowel sounds appreciated in all 4 quadrants. Extremities: Patient has no pedal edema appreciated in bilateral lower legs. Neuro: Patient is alert oriented x3. Assessment/plan: 76-year-old female patient with extensive past medical history of ESRD on hemodialysis, COPD on home oxygen, A. fib with an old watchman device and pacemaker, CHF, PAD s/p femoral bypass, CAD, anemia of chronic disease, who had a fall at home and had left intertrochanteric fracture followed by she was admitted to the hospital and had a surgery for the same .who now is in acute rehabilitation following her surgery. ESRD: On hemodialysis Friday. Patient was seen during her dialysis session today. And is getting about 2.5 L taken out. Her electrolyte and volume status are adjusted by dialysis. Anemia of chronic disease: Patient has iron deficiency anemia as well as anemia from her ESRD. She is getting IV Venofer with dialysis and is also receiving Aransep. Chronic COPD: Patient is oxygen dependent outside hospital as well. She is getting bronchodilators and inhaled steroids and is managed by primary team Left femoral neck fracture: Patient had surgery and intramedullary niko was placed in on August 11. She is in acute rehab unit for rehabilitation. VS,Fishbone, I+O VS, Fishbone, I+O Laboratory Tests 08/25/21 08:09 Vital Signs Date Time Temp Pulse Resp B/P (MAP) Pulse Ox O2 Delivery O2 Flow Rate FiO2 08/25/21 09:00 3.0 08/25/21 06:59 18 Nasal Cannula 08/25/21 06:00 98.2 70 141/64 (89) 93 I&O- Last 24 Hours up to 6 AM 08/25/21 06:00 Intake Total 1560 ml Balance 1560 ml Joseph Bazan MD Aug 25, 2021 13:24 ELIZA MOHAMUD DO Aug 26, 2021 11:50
[2021-08-25] MEDS: ATORVASTATIN 20 MG TAB PO SCH (13:48)
[2021-08-25] MEDS: LIDOCAINE 5% (LIDODERM) PATCH TD SCH (13:48)
[2021-08-25] MEDS: AMIODARONE 200 MG TAB (PACERONE) PO SCH (13:48)
[2021-08-25 14:00] VITALS: BP 132/74
--- NOTE | 2021-08-25 15:42 | IPN ---
PROGRESS NOTE DATE: 08/25/2021 TIME: 11:37 a.m. SUBJECTIVE: Zita was brought to surgery for a left peritrochanteric hip fracture two weeks prior and she was seen in dialysis. She was comfortable today. Endorses no pain in the left hip. Bandages were clean, dry and intact. OBJECTIVE: GENERAL: Patient was alert and oriented to person, time and place. EXTREMITIES: She had sensation intact to light touch to the deep and superficial peroneal, sural, saphenous and tibial nerve distributions. She had 5/5 motor strength of the exterior hallucis longus (EHL), flexor hallucis longus (FHL), tibialis, anterior gastrocnemius musculature. She had brisk capillary refill through the digits of her left foot and palpable dorsalis pedis and posterior tibial arterial pulse. ASSESSMENT: This is a 76-year-old female who is doing very well postoperative from her left cephalomedullary nail. PLAN: At this point in time, patient is weightbearing was tolerated to the left lower extremity. She will have her bharat removed and replaced with Steri-Strips on either August 30, 2021 or August 31, 2021. Physical therapy should work with this patient to continue strengthening her left lower extremity and move her as tolerated with a goal of returning her to her baseline ambulation, which is walking with a walker/community ambulator with assistive device. Patient will follow up in my clinic either on August 28, 2021 or September 06, 2021, at the [facility] orthopedic clinic for a two week postoperative wound check.
[2021-08-25] MEDS: NORCO, ANEXSIA 5/325MG TABLET (HYDROcodone/ACETAMINOPHEN) PO PRN (17:13)
[2021-08-25 20:00] VITALS: BP 119/56
[2021-08-25] MEDS: **NOTE PATIENT COMMENT** MISC XX SCH (20:42)
[2021-08-26 06:00] VITALS: BP 119/56
[2021-08-26] MEDS: NORCO, ANEXSIA 5/325MG TABLET (HYDROcodone/ACETAMINOPHEN) PO SCH (06:09)
[2021-08-26] MEDS: HumaLOG INSULIN (NovoLOG) PER UNIT SC SCH ×4 (07:27→20:18)
[2021-08-26] MEDS: MIRALAX *UNIT DOSE* 17GM PACKET PO SCH (07:29)
[2021-08-26] MEDS: LEVALBUTEROL HFA 45MCG/ACT 15 GM INHALER INH SCH ×4 (08:00→20:00)
[2021-08-26] MEDS: SYMBICORT 160/4.5MCG INHALER 6GM INH SCH ×2 (08:00→20:57)
[2021-08-26] MEDS: IPRATROPIUM HFA INHALER 12.9 GRAMS (ATROVENT HFA) INH SCH ×3 (08:00→20:00)
[2021-08-26] MEDS: PANTOPRAZOLE 40MG TAB (PROTONIX) PO SCH ×2 (08:36→20:46)
[2021-08-26] MEDS: ATORVASTATIN 20 MG TAB PO SCH (08:36)
[2021-08-26] MEDS: guaiFENesin 200 MG TAB PO SCH ×3 (08:36→20:46)
[2021-08-26] MEDS: AMIODARONE 200 MG TAB (PACERONE) PO SCH (08:36)
[2021-08-26] MEDS: ACETAMINOPHEN 500 MG TAB PO SCH ×3 (08:36→20:47)
[2021-08-26] MEDS: HEPARIN SOD (PORCINE) 5000UNITS/ML 1ML VIAL/SYRINGE SC SCH ×2 (08:37→20:47)
[2021-08-26] MEDS: LIDOCAINE 5% (LIDODERM) PATCH TD SCH (08:37)
[2021-08-26] MEDS: SUCRALFATE 1 GM TAB PO SCH ×4 (08:38→20:46)
[2021-08-26] MEDS: METOCLOPRAMIDE 5 MG TAB PO SCH ×4 (08:38→20:46)
[2021-08-26] MEDS: REMEDY PHYTOPLEX Z-GUARD PASTE 113GM TUBE (FROM STOREROOM PRODUCT) TOP SCH ×3 (09:00→20:18)
[2021-08-26] MEDS: SENOKOT S TAB PO SCH ×2 (09:00→20:47)
[2021-08-26 14:00] VITALS: BP 141/64
[2021-08-26] MEDS: NORCO, ANEXSIA 5/325MG TABLET (HYDROcodone/ACETAMINOPHEN) PO PRN (16:51)
[2021-08-26 19:46] VITALS: BP 137/63
[2021-08-26] MEDS: **NOTE PATIENT COMMENT** MISC XX SCH (20:51)
[2021-08-27 06:00] VITALS: BP 132/62
[2021-08-27] MEDS: NORCO, ANEXSIA 5/325MG TABLET (HYDROcodone/ACETAMINOPHEN) PO SCH (06:02)
[2021-08-27 06:45] LABS: HEMOGLOBIN 9.1 g/dl (12.0-15.5); MEAN CORPUSCULAR HEMOGLOBIN 29.5 pg (27.0-33.0); MEAN CORPUSCULAR HGB CONC 28.4 g/dl (32.0-36.5); MEAN CORPUSCULAR VOLUME 103.9 fl (80.0-96.0); PLATELET COUNT, AUTOMATED 197 10^3/uL (150-450); RED BLOOD COUNT 3.08 10^6/uL (4.00-5.40); WHITE BLOOD COUNT 11.5 10^3/uL (4.0-10.0)
[2021-08-27 07:07] LABS: CALCIUM LEVEL 8.6 MG/DL (8.8-10.2); CREATININE FOR GFR 2.7 MG/DL (0.55-1.30); GLOMERULAR FILTRATION RATE 18.3 (>39); POTASSIUM SERUM 3.8 MEQ/L (3.5-5.1)
[2021-08-27 07:09] LABS: ANISOCYTOSIS 2+; ATYPICAL LYMPH 2 % (0-5); BASOPHILS 2 % (0-1); EOSINOPHILS 3 % (0-3); LYMPHOCYTES 19 % (16-44); MONOCYTES 6 % (0-5); MYELOCYTES 1 % (0-0); NEUTROPHILS 66 % (28-66); PLATELET ESTIMATE NORMAL (NORMAL)
[2021-08-27] MEDS: IPRATROPIUM HFA INHALER 12.9 GRAMS (ATROVENT HFA) INH SCH ×3 (07:24→20:00)
[2021-08-27] MEDS: LEVALBUTEROL HFA 45MCG/ACT 15 GM INHALER INH SCH ×4 (07:24→20:00)
[2021-08-27] MEDS: SYMBICORT 160/4.5MCG INHALER 6GM INH SCH ×2 (07:24→20:00)
[2021-08-27] MEDS: HumaLOG INSULIN (NovoLOG) PER UNIT SC SCH ×4 (07:30→20:54)
[2021-08-27] MEDS: AMIODARONE 200 MG TAB (PACERONE) PO SCH (08:13)
[2021-08-27] MEDS: SUCRALFATE 1 GM TAB PO SCH ×4 (08:13→20:53)
[2021-08-27] MEDS: guaiFENesin 200 MG TAB PO SCH ×3 (08:13→20:53)
[2021-08-27] MEDS: SENOKOT S TAB PO SCH ×2 (08:13→20:53)
[2021-08-27] MEDS: ACETAMINOPHEN 500 MG TAB PO SCH ×3 (08:14→20:54)
[2021-08-27] MEDS: METOCLOPRAMIDE 5 MG TAB PO SCH ×4 (08:14→20:53)
[2021-08-27] MEDS: PANTOPRAZOLE 40MG TAB (PROTONIX) PO SCH ×2 (08:14→20:54)
[2021-08-27] MEDS: ATORVASTATIN 20 MG TAB PO SCH (08:14)
[2021-08-27] MEDS: LIDOCAINE 5% (LIDODERM) PATCH TD SCH (08:15)
[2021-08-27] MEDS: HEPARIN SOD (PORCINE) 5000UNITS/ML 1ML VIAL/SYRINGE SC SCH ×2 (08:15→20:53)
[2021-08-27] MEDS: MIRALAX *UNIT DOSE* 17GM PACKET PO SCH (08:15)
[2021-08-27] MEDS: REMEDY PHYTOPLEX Z-GUARD PASTE 113GM TUBE (FROM STOREROOM PRODUCT) TOP SCH ×3 (08:16→20:55)
[2021-08-27] MEDS ORDERED: LIDOCAINE 5% (LIDODERM) PATCH TD SCH (11:30)
--- NOTE | 2021-08-27 11:43 | IPNPDOC ---
PM&R Progress Note DATE OF SERVICE: Aug 27, 2021 Correspondence Transcriber Progress Note Subjective: PAtient stating her leg hurts and she is fearful of falling which is limiting her ability to [employer] therapy. She thinks that once the bharat come out she will move betetr. REVIEW OF SYSTEMS: The following is a completed review of systems and has been reviewed. Review of systems otherwise unremarkable. PAIN: Patient self reports left hip pain EYES: No recent vision changes EARS, NOSE, & THROAT: No throat pain, or dysphagia, or rhinorrhea CARDIOVASCULAR: Denies chest pain or palpitations PULMONARY: Denies shortness of breath, +dyspnea on exertion (chronic) GASTROINTESTINAL: Denies constipation/diarrhea GENITOURINARY: oliguric MUSCULOSKELETAL: s/p left femur fracture NEUROLOGICAL:denies paresthesias HEMATOLOGICAL: +anemia SKIN: + left hip incision PSYCHIATRIC: Unremarkable All other review of systems found to be negative. PHYSICAL EXAMINATION: VITAL SIGNS: Please see below. GENERAL: Pleasant and cooperative. No acute distress. HEENT: PERRL. Extraocular movements intact. Clear conjunctiva CARDIOVASCULAR: Regular rate and rhythm. No murmurs, rubs, or gallops LUNGS: scattered Wheezes ABDOMEN: Soft, nontender, nondistended. Positive bowel sounds. Normal active bowel sounds NEUROLOGICAL: Alert and oriented times three. Cranial nerves II through XII grossly intact. Sensation grossly intact in all 4limbs EXTREMITIES: 4+\5 strength bilateral upper extremities. 4\5 strength right lower extremity. 4/5 ankle DF/EHL (limited exam due to hip facture) SKIN: sacrum with scant areas of blanchable erythema , left hip incision c/d/i no periwound induration ASSESSMENT:76-year-old F with past medical history of afib s/p watchamn's procedure, PM, CHF ESRD on HD who presents status post PLAN: 1. REhab- PT/OT advance mobility and ADLs, strengthen/stretch/maintain ROM all 4 limbs 2.Ortho- left femur fracture s/p ORIF cont WBAT and pain management- f/u ortho on d/c 3. CArdiac- hx of CHF cont dialy weights, fluid restrict, on HD for fluid management - Afib s/p watchmans device and PM cont amiodarone -HLD cont statin -medicine consulted to assist in overall management 4. Resp- hx of COPD on home with recent Covid PNA in June- cont inhaler treatments, guaifenesin, and Cefdinir started on acute care side out of concern for PNA- d/c'd -patient with wheeze on today's exam, CXR showing overall improvement of recent opacities, will order procalcitonin and sputum cx and start oral prednisone for now as patient may be developing COPD exacerbation- 5. REnal- ESRD on HD renal consulted -s/p permacath placement 6. heme- anemia of chronic disease- renal managing 7. GI ppx- sucralfate and protonix -gastroparesis? cont reglan with meals 8. DVT ppx- heparin 9. Endo-: hx of DM cont ISS 10. Pain- judicious use of norco as patient had opioid induced hypercarbic respiratory failure, cont tylenol and lidoderm patch 11. Dispo: TBD Barriers to d/c and functional status: Patient is ambulate 3 ft with Mod assist but requiring kun steady for all [id number] due to fear of falling, patient has the ability to do more, but is self-limiting. Plan is to bring her daughter in immediately for training to help motivate patient, hopefully will not require lioft device in order go get home, therapy to start working on slide board transfers as well. She still needs extensive PT and OT intervention. Medically patient has ESRD with anemia, pain, monitoring incisions and daily weights Allergies Coded Allergies: codeine (Verified Adverse Reaction, Intermediate, stabbing abd pain, 11/30/20) phenytoin (Verified Adverse Reaction, Intermediate, feels like being stabbed in abd, 11/30/20) gabapentin (Verified Adverse Reaction, Mild, VERTIGO, 11/30/20) oxycodone (Verified Adverse Reaction, Mild, SHAKINESS, 11/30/20) Vital Signs Vital Signs Date Time Temp Pulse Resp B/P (MAP) Pulse Ox O2 Delivery O2 Flow Rate FiO2 08/27/21 09:00 3.0 08/27/21 06:32 18 08/27/21 06:02 Nasal Cannula 08/27/21 06:00 98.3 97 132/62 (85) 92 Laboratory Data CBC/BMP Laboratory Tests 08/27/21 06:27 Labs 24H Laboratory Tests 2 08/26/21 16:36: Bedside Glucose (Misc Panel) 110 08/26/21 19:50: Bedside Glucose (Misc Panel) 121H 08/27/21 06:24: Bedside Glucose (Misc Panel) 86 08/27/21 06:27: Immature Granulocyte % (Auto) , Neutrophils (%) (Auto) , Nucleated Red Blood Cells % (auto) 1.1H, Neutrophils 66, Band Neutrophils 1, Lymphocytes (Manual) 19, Monocytes (Manual) 6H, Eosinophils (Manual) 3, Basophils (Manual) 2H, Myelocytes 1H, Atypical Lymphocytes 2, Anisocytosis 2+, Platelet Estimate NORMAL, Anion Gap 6L, Glomerular Filtration Rate 18.3L, Calcium Level 8.6L 08/27/21 11:18: Bedside Glucose (Misc Panel) 80L Current Medications Current Medications Current Medications Medications (Trade) Dose Ordered Sig/Beatrice Route PRN Reason Start Time Stop Time Status Last Admin Dose Admin Acetaminophen (Tylenol Tab) 1,000 mg TID PO 08/22/21 21:00 08/27/21 08:14 Acetaminophen/ Hydrocodone Bitart ([place], Anexsia 5/325) 1 tab DAILY@0700 PO 08/23/21 07:00 08/27/21 06:02 Acetaminophen/ Hydrocodone Bitart (Mil[place], Anexsia 5/325) 1 tab Q8HP PRN PO MODERATE PAIN (PS 5-7) 08/23/21 10:00 08/26/21 16:51 Amiodarone HCl (Pacerone, Cordarone) 200 mg DAILY PO 08/23/21 09:00 08/27/21 08:13 Atorvastatin Calcium (Lipitor) 20 mg DAILY PO 08/23/21 09:00 08/27/21 08:14 Budesonide/ Formoterol Fumarate (Symbicort 160/ 4.5mcg) 2 puff RBID INH 08/22/21 20:00 08/27/21 07:24 Calcium Carbonate (Tums) 500 mg Q6HP PRN PO HEARTBURN 08/22/21 14:40 Cefdinir (Omnicef) 300 mg HD PO 08/22/21 14:40 08/27/21 11:28 DC 08/25/21 15:20 Darbepoetin Ramy (Aranesp (Dialysis Use)) 100 mcg HD IV 08/23/21 10:00 Dextrose (Dextrose 50%) 25 ml ASDIRECTED PRN IV SEE LABEL COMMENTS 08/22/21 14:40 Glucagon (Glucagon) 1 mg ASDIRECTED PRN SC SEE LABEL COMMENTS 08/22/21 14:40 Glucose (Glucose) 16 GM ASDIRECTED PRN PO SEE LABEL COMMENTS 08/22/21 14:40 Guaifenesin (Robitussin Tab) 400 mg TID PO 08/22/21 16:00 08/27/21 08:13 Heparin Sodium (Heparin) Please refer to ... ASDIRECTED XX 08/22/21 19:30 08/23/21 19:29 DC Heparin Sodium (Heparin) Please refer to ... ASDIRECTED XX 08/25/21 07:50 08/26/21 07:49 DC Heparin Sodium (Heparin) dose as per volume indica... ASDIRECTED PRN IV SEE LABEL COMMENTS 08/22/21 19:30 08/23/21 19:29 DC Heparin Sodium (Heparin) dose as per volume indica... ASDIRECTED PRN IV SEE LABEL COMMENTS 08/25/21 07:50 08/26/21 07:49 DC Heparin Sodium (Porcine) (Heparin) 5,000 units Q12H SC 08/22/21 21:00 08/27/21 08:15 Home Med (Home Med List Complete!) ASDIRECTED XX 08/24/21 16:15 08/24/21 16:16 DC Insulin Human Lispro (HumaLOG INSULIN) SEE PROTOCOL TABLE AC SC 08/22/21 17:30 08/26/21 16:50 Insulin Human Lispro (HumaLOG INSULIN) SEE PROTOCOL TABLE QHS SC 08/22/21 21:00 Ipratropium Holloway (Atrovent Hfa) 2 puff RTID INH 08/22/21 20:00 08/27/21 07:24 Iron (Venofer) 100 mg HD IV 08/23/21 10:00 08/25/21 10:04 Levalbuterol HCl (Xopenex Hfa) 2 puff RQID INH 08/22/21 20:00 08/27/21 07:24 Lidocaine (Lidoderm Patch) 2 patch DAILY TD 08/23/21 09:00 08/27/21 08:15 Metoclopramide HCl (Reglan) 5 mg ACHS PO 08/22/21 17:30 08/27/21 08:14 Non-Formulary Medication ( See Comment Field Below ) REMOVE LIDODERM PATCH DAILY@21 XX 08/22/21 21:00 08/26/21 20:51 Ondansetron HCl (Zofran Odt) 4 mg Q6HP PRN PO NAUSEA OR VOMITING 08/22/21 14:40 Pantoprazole Sodium (Protonix) 40 mg BID PO 08/22/21 21:00 08/27/21 08:14 Polyethylene Glycol (Miralax) 1 pkt DAILY PO 08/23/21 09:00 Senna/Docusate Sodium (Senokot S) 1 tab BID PO 08/22/21 21:00 08/27/21 08:13 Sodium Chloride (Nacl 0.9%) 200 ml ASDIRECTED PRN IV SEE LABEL COMMENTS 08/22/21 19:30 08/23/21 19:29 DC Sodium Chloride (Nacl 0.9%) 200 ml ASDIRECTED PRN IV SEE LABEL COMMENTS 08/25/21 07:50 08/26/21 07:49 DC Sucralfate (Carafate) 1 gm ACHS PO 08/22/21 17:30 08/27/21 08:13 Tramadol HCl (Ultram) 25 mg Q4HP PRN PO MODERATE PAIN (PS 5-7) 08/22/21 14:40 08/23/21 10:01 DC 08/23/21 08:47 DIXON CHENG MD Aug 27, 2021 11:43
[2021-08-27 14:00] VITALS: BP 166/78
--- NOTE | 2021-08-27 14:07 | REP ---
INDICATION: r/o infiltrate, wheeze COMPARISON: 08/18/2021 TECHNIQUE: PA and lateral. FINDINGS: The mediastinum and cardiac silhouette demonstrate chronic stable changes. Lung saavedra demonstrate chronic changes with superimposed bilateral opacities (left greater than right) which appear to be improved compared to prior examination. No effusion. No pneumothorax.. IMPRESSION: Chronic stable changes. Superimposed opacities (left greater than right) appear improved. <Electronically signed by Eddi Bergman > 08/27/21 [id number]
--- NOTE | 2021-08-27 15:45 | IPNPDOC ---
Text Note Date of Service The patient was seen on 08/27/21. NOTE Was seen and examined this morning. No acute events overnight. Participating in therapy. PHYSICAL EXAMINATION General Exam: supine with head of elevation at 30 degrees in no distress no pallor or cyanosis HEENT: No JVD thyromegaly cervical lymphadenopathy face is symmetric tongue is midline moist mucous membranes Chest Exam: Diminished without rales or wheezing right permacath with bloody dressing Heart: S1-S2 regular rate rhythm Abdomen Exam: Positive bowel sounds soft nontender nondistended obese no rebound or guarding Extremity Exam: Trace edema bilaterally Skin Exam: Multiple ecchymotic areas bilateral upper extremities chest and abdomen LABORATORY DATA/imaging studies/microbiology: Please see below. ASSESSMENT AND PLAN: 76-year-old female from home with past medical history of ESRD, COPD on home oxygen, atrial fibrillation status post watchman device placement as well as pacemaker, congestive heart failure, chronic anemia, iron deficiency admitted to the medical service and transferred to acute rehab unit on 08/22/2021 after being admitted for a mechanical fall while walking to the bathroom with her walker was found to have an acute left femoral intertrochanteric fracture as well as a separate left greater trochanter fracture, and old right pubic rami fracture. Her medical hospitalization was complicated by acute on chronic respiratory failure with hypercarbia and hypoxia thought to be related to opioids, aspiration pneumonia for which she was treated with a full course of antibiotics, transferred to ICU and placed on BIPAP, fluid overload managed by dialysis, and anemia requiring blood transfusion, medically optimized and went to the operating room on 08/11/21 for intramedullary rodding of the femur. Patient was transferred to acute rehab unit for rehab services. Left femoral neck fracture s/p Intramedullary rodding of femur on 08/11/21 pain control with tylenol, Toradol, tramadol and norco We will have to be cautious about use of narcotics Incentive spirometer PT/OT bowel regimen. Acute on chronic respiratory failure with hypercarbia due to narcotics given for her pain from the hip fracture. Now resolved. Continues to be on 3 L. Supplement oxygen to maintain saturation above 92 Possible aspiration pneumonia Patient sputum culture is growing Streptococcus pneumoniae heavy and Moraxella catarrhalis She did vomit in an obtunded state Continues to have persistent leukocytosis Completed cefdinir. We will continue to monitor. Leukocytosis Likely combination of infection and reactive to recent steroids and acute fracture improving slowly. ESRD HD as per nephrology Malfunctioning permacath permacath exchange by vascular surgery on 08/21/21 Anemia of chronic disease and iron deficiency and also likely blood loss in fracture hematoma. received 3 unit of PRBC also getting darbepoetin during HD Continue ferrous sulfate COPD with acute on chronic hypoxic and hypercarbic respiratory failure We will continue Symbicort in place of Breo continue lev albuterol We will continue with incentive spirometry and chest PT Diabetes We will place the patient on lispro as per sliding scale Fingerstick before meals and at bedtime carb consistent diet Hypertension Blood pressure well controlled without any medication. diltiazem has been stopped Atrial fibrillation status post placement of watchman device and pacemaker Continue amiodarone. digoxin for rate control Patient is now in paced rhythm GERD Continue PPI Disposition as per primary VS,Anna, I+O VS, Anna, I+O Laboratory Tests 08/27/21 06:27 Vital Signs Date Time Temp Pulse Resp B/P (MAP) Pulse Ox O2 Delivery O2 Flow Rate FiO2 08/27/21 09:00 3.0 08/27/21 06:32 18 08/27/21 06:02 Nasal Cannula 08/27/21 06:00 98.3 97 132/62 (85) 92 I&O- Last 24 Hours up to 6 AM 08/27/21 06:00 Intake Total 1080 ml Output Total 3 ml Balance 1077 ml JI OSBORNE MD Aug 27, 2021 15:45
[2021-08-27] MEDS: predniSONE 10 MG TAB PO SCH (16:17)
[2021-08-27] MEDS ORDERED: SODIUM CHLORIDE 0.9% 1000ML IV PRN (18:10)
[2021-08-27 20:00] VITALS: BP 164/72
--- NOTE | 2021-08-27 20:35 | IPN ---
NEPHROLOGY PROGRESS NOTE DATE: 08/27/2021 SUBJECTIVE: Mrs. Montanez is seen this morning at her bedside. She is sitting in the wheelchair at the time of my visit. She reports pain in her left hip and shortness of breath is unchanged. She denies any nausea or vomiting. She has no fevers or chills. OBJECTIVE: PHYSICAL EXAMINATION: VITAL SIGNS: Temperature 98.3 degrees Fahrenheit, heart rate 96 per minute and respiratory rate 18 per minute. Blood pressure 132/52 mm of mercury and oxygen saturation 92% on 3 liters oxygen. HEENT: Her head is atraumatic. She has no oral thrush or ulcers. NECK: Veins are difficult to be assessed. She has a permacath in the right internal jugular vein. HEART: Irregular. LUNGS: Diminished breath sounds bilaterally. ABDOMEN: Soft and nontender and bowel sounds are normal. EXTREMITIES: Without any cyanosis or clubbing. She has edema on both legs, more on the left than the right. NEUROLOGICAL: She is at her baseline mentation without any focal deficits. LABORATORY STUDIES: Today's labs show sodium of 138, potassium 3.8, chloride 108, CO2 24, BUN 34 and creatinine 2.7. Glucose is 97 and calcium is 8.6. WBC count 11.5, hemoglobin 9.1 and hematocrit 32, platelet count 197. PROBLEMS: 1. End-stage renal disease - The patient is dialysis dependent. She was last dialyzed on Friday and we will schedule her next dialysis tomorrow. 2. Congestive heart failure volume status is decompensated. She has a history of chronic lower extremity edema and hypotension. We are unable to remove fluid more aggressively due to low blood pressure during dialysis. I have discussed with the patient about the potential need for frequent dialysis with small amounts of fluid removal, however the patient does not wish to get more than three times a week dialysis. In fact she has been talking about getting dialysis only twice a week as an outpatient. I have encouraged the patient to continue with at least three times a week dialysis. We will keep on trying to convince her for extra ultrafiltration in between dialysis treatments in order to correct her volume status. 3. Hypokalemia - The patient had mild hypokalemia which has improved. We will use a 3.0 mEq potassium bath for her next dialysis. 4. Anemia her anemia has been stable and unchanged. No intervention is needed. She receives Aranesp once a week during dialysis. 5. Chronic obstructive pulmonary disease The patient remains stable and has been chronically steroid dependent. 6. Diabetes her diabetes has been reasonably well controlled.
[2021-08-27] MEDS: **NOTE PATIENT COMMENT** MISC XX SCH (20:55)
[2021-08-27] MEDS ORDERED: **NOTE PATIENT COMMENT** MISC XX SCH (21:00)
[2021-08-28 05:11] VITALS: BP 135/64
[2021-08-28] MEDS: NORCO, ANEXSIA 5/325MG TABLET (HYDROcodone/ACETAMINOPHEN) PO SCH ×2 (06:18→22:25)
[2021-08-28 06:41] LABS: BASO # 0.1 10^3/uL (0.0-0.2); BASO % 0.5 % (0.0-1.0); EOS # 0.1 10^3/uL (0.0-0.5); EOS % 0.5 % (0.0-3.0); HEMATOCRIT 32.3 % (36.0-47.0); HEMOGLOBIN 9.3 g/dl (12.0-15.5); LYMPH # 1.9 10^3/uL (1.5-5.0); LYMPH % 15.8 % (24.0-44.0); MEAN CORPUSCULAR HGB CONC 28.8 g/dl (32.0-36.5); MEAN CORPUSCULAR VOLUME 104.2 fl (80.0-96.0); MONO # 1.3 10^3/uL (0.0-0.8); MONO % 10.7 % (2.0-8.0); NEUTROPHILS # 8.3 10^3/uL (1.5-8.5); PLATELET COUNT, AUTOMATED 207 10^3/uL (150-450); WHITE BLOOD COUNT 12.1 10^3/uL (4.0-10.0)
[2021-08-28] MEDS: SYMBICORT 160/4.5MCG INHALER 6GM INH SCH ×2 (07:21→20:00)
[2021-08-28] MEDS: LEVALBUTEROL HFA 45MCG/ACT 15 GM INHALER INH SCH ×4 (07:22→20:00)
[2021-08-28] MEDS: IPRATROPIUM HFA INHALER 12.9 GRAMS (ATROVENT HFA) INH SCH ×3 (07:22→20:00)
[2021-08-28] MEDS: HumaLOG INSULIN (NovoLOG) PER UNIT SC SCH ×5 (07:30→21:00)
[2021-08-28 08:45] LABS: CALCIUM LEVEL 8.6 MG/DL (8.8-10.2); CREATININE FOR GFR 2.73 MG/DL (0.55-1.30); GLOMERULAR FILTRATION RATE 18.1 (>39); POTASSIUM SERUM 3.9 MEQ/L (3.5-5.1)
[2021-08-28] MEDS: SENOKOT S TAB PO SCH ×2 (09:00→21:00)
[2021-08-28] MEDS: MIRALAX *UNIT DOSE* 17GM PACKET PO SCH (09:00)
[2021-08-28] MEDS: REMEDY PHYTOPLEX Z-GUARD PASTE 113GM TUBE (FROM STOREROOM PRODUCT) TOP SCH ×3 (09:00→22:26)
[2021-08-28] MEDS: guaiFENesin 200 MG TAB PO SCH ×3 (09:04→22:23)
[2021-08-28] MEDS: ATORVASTATIN 20 MG TAB PO SCH (09:04)
[2021-08-28] MEDS: PANTOPRAZOLE 40MG TAB (PROTONIX) PO SCH ×2 (09:05→22:22)
[2021-08-28] MEDS: predniSONE 10 MG TAB PO SCH (09:05)
[2021-08-28] MEDS: AMIODARONE 200 MG TAB (PACERONE) PO SCH (09:06)
[2021-08-28] MEDS: HEPARIN SOD (PORCINE) 5000UNITS/ML 1ML VIAL/SYRINGE SC SCH ×2 (09:06→22:35)
[2021-08-28] MEDS: ACETAMINOPHEN 500 MG TAB PO SCH ×3 (09:06→22:24)
[2021-08-28] MEDS: LIDOCAINE 5% (LIDODERM) PATCH TD SCH (09:07)
[2021-08-28] MEDS: METOCLOPRAMIDE 5 MG TAB PO SCH ×4 (09:15→22:23)
[2021-08-28] MEDS: SUCRALFATE 1 GM TAB PO SCH ×4 (09:15→22:23)
--- NOTE | 2021-08-28 09:40 | IPNPDOC ---
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 She would like to continue therapy for another week to see if she can get stronger. She agrees to trial of an antidepressant. DAughter agrees with treatment and also believes patient is struggling with depression. REVIEW OF SYSTEMS: The following is a completed review of systems and has been reviewed. Review of systems otherwise unremarkable. PAIN: Patient self reports left hip pain EYES: No recent vision changes EARS, NOSE, & THROAT: No throat pain, or dysphagia, or rhinorrhea CARDIOVASCULAR: Denies chest pain or palpitations PULMONARY: Denies shortness of breath, +dyspnea on exertion (chronic) GASTROINTESTINAL: Denies constipation/diarrhea GENITOURINARY: oliguric MUSCULOSKELETAL: s/p left femur fracture NEUROLOGICAL:denies paresthesias HEMATOLOGICAL: +anemia SKIN: + left hip incision PSYCHIATRIC: Unremarkable All other review of systems found to be negative. PHYSICAL EXAMINATION: VITAL SIGNS: Please see below. GENERAL: Pleasant and cooperative. No acute distress. HEENT: PERRL. Extraocular movements intact. Clear conjunctiva CARDIOVASCULAR: Regular rate and rhythm. No murmurs, rubs, or gallops LUNGS: CTA ABDOMEN: Soft, nontender, nondistended. Positive bowel sounds. Normal active bowel sounds NEUROLOGICAL: Alert and oriented times three. Cranial nerves II through XII grossly intact. Sensation grossly intact in all 4limbs EXTREMITIES: 4+\5 strength bilateral upper extremities. 4\5 strength right lower extremity. 4/5 ankle DF/EHL (limited exam due to hip facture) SKIN: sacrum with scant areas of blanchable erythema , left hip incision c/d/i no periwound induration ASSESSMENT:76-year-old F with past medical history of afib s/p watchamn's procedure, PM, CHF ESRD on HD who presents status post PLAN: 1. REhab- PT/OT advance mobility and ADLs, strengthen/stretch/maintain ROM all 4 limbs 2.Ortho- left femur fracture s/p ORIF cont WBAT and pain management- f/u ortho on d/c -per ortho bharat to be d/c'd on 08/30 3. CArdiac- hx of CHF cont dialy weights, fluid restrict, on HD for fluid management - Afib s/p watchmans device and PM cont amiodarone -HLD cont statin -medicine consulted to assist in overall management 4. Resp- hx of COPD on home with recent Covid PNA in June- cont inhaler treatments, guaifenesin, s/p course of antibiotics on acute care side out of concern for PNA -patient with wheeze on yesterday's exam, CXR showing overall improvement of recent opacities -patient afebrbile, procalcitonin is low, unlikely patient has ongoing infectious, f/u sputum cx and cont oral prednisone for now as patient may be developing COPD exacerbation although appears stable today 5. REnal- ESRD on HD renal consulted -s/p permacath placement 6. heme- anemia of chronic disease- renal managing 7. GI ppx- sucralfate and protonix -gastroparesis? cont reglan with meals 8. DVT ppx- heparin 9. Endo-: hx of DM cont ISS 10. Pain- judicious use of norco as patient had opioid induced hypercarbic resp iratory failure, cont tylenol and lidoderm patch 11. Psych- will start remeron 7.5 mg qhs for depression 12. Dispo: TBD Barriers to d/c and functional status: Patient is ambulate 3 ft with Mod assist but requiring kun steady for all [id number] due to fear of falling, patient has the ability to do more, but is self-limiting and likely depressed. Her daughter states she is able to take care of her mother at her current elvel of function, btu would like her to try getting stronger and at least work on [id number].hopefully will not require lift device in order go get home, therapy to start working on slide board transfers as well. She still needs extensive PT and OT intervention. Medically patient has ESRD with anemia, pain, monitoring incisions and daily weights, starting antidepressant to help optimize participation in therapy Allergies Coded Allergies: codeine (Verified Adverse Reaction, Intermediate, stabbing abd pain, 11/30/20) phenytoin (Verified Adverse Reaction, Intermediate, feels like being stabbed in abd, 11/30/20) gabapentin (Verified Adverse Reaction, Mild, VERTIGO, 11/30/20) oxycodone (Verified Adverse Reaction, Mild, SHAKINESS, 11/30/20) Vital Signs Vital Signs Date Time Temp Pulse Resp B/P (MAP) Pulse Ox O2 Delivery O2 Flow Rate FiO2 08/28/21 07:30 17 08/28/21 05:11 98.7 71 135/64 (87) 97 Nasal Cannula 3.0 Laboratory Data CBC/BMP Laboratory Tests 08/28/21 06:09 08/28/21 06:11 Labs 24H Laboratory Tests 2 08/27/21 11:18: Bedside Glucose (Misc Panel) 80L 08/27/21 17:09: Bedside Glucose (Misc Panel) 107 08/27/21 20:03: Bedside Glucose (Misc Panel) 134H 08/28/21 06:09: Anion Gap 8, Glomerular Filtration Rate 18.1L, Calcium Level 8.6L 08/28/21 06:11: Immature Granulocyte % (Auto) 4.5H, Neutrophils (%) (Auto) 68.0H, Lymphocytes (%) (Auto) 15.8L, Monocytes (%) (Auto) 10.7H, Eosinophils (%) (Auto) 0.5, Basophils (%) (Auto) 0.5, Neutrophils # (Auto) 8.3, Lymphocytes # (Auto) 1.9, Monocytes # (Auto) 1.3H, Eosinophils # (Auto) 0.1, Basophils # (Auto) 0.1, Nucleated Red Blood Cells % (auto) 0.7H, Procalcitonin 0.17 08/28/21 06:20: Bedside Glucose (Misc Panel) 68L Current Medications Current Medications Current Medications Medications (Trade) Dose Ordered Sig/Beatrice Route PRN Reason Start Time Stop Time Status Last Admin Dose Admin Acetaminophen (Tylenol Tab) 1,000 mg TID PO 08/22/21 21:00 08/28/21 09:06 Acetaminophen/ Hydrocodone Bitart ([place], Anexsia 5/325) 1 tab DAILY@0700 PO 08/23/21 07:00 08/28/21 06:18 Acetaminophen/ Hydrocodone Bitart ([place], Anexsia 5/325) 1 tab Q8HP PRN PO MODERATE PAIN (PS 5-7) 08/23/21 10:00 08/26/21 16:51 Amiodarone HCl (Pacerone, Cordarone) 200 mg DAILY PO 08/23/21 09:00 08/28/21 09:06 Atorvastatin Calcium (Lipitor) 20 mg DAILY PO 08/23/21 09:00 08/28/21 09:04 Budesonide/ Formoterol Fumarate (Symbicort 160/ 4.5mcg) 2 puff RBID INH 08/22/21 20:00 08/28/21 07:21 Calcium Carbonate (Tums) 500 mg Q6HP PRN PO HEARTBURN 08/22/21 14:40 Cefdinir (Omnicef) 300 mg HD PO 08/22/21 14:40 08/27/21 11:28 DC 08/25/21 15:20 Darbepoetin Ramy (Aranesp (Dialysis Use)) 100 mcg HD IV 08/23/21 10:00 Dextrose (Dextrose 50%) 25 ml ASDIRECTED PRN IV SEE LABEL COMMENTS 08/22/21 14:40 Glucagon (Glucagon) 1 mg ASDIRECTED PRN SC SEE LABEL COMMENTS 08/22/21 14:40 Glucose (Glucose) 16 GM ASDIRECTED PRN PO SEE LABEL COMMENTS 08/22/21 14:40 Guaifenesin (Robitussin Tab) 400 mg TID PO 08/22/21 16:00 08/28/21 09:04 Heparin Sodium (Heparin) Please refer to ... ASDIRECTED XX 08/22/21 19:30 08/23/21 19:29 DC Heparin Sodium (Heparin) Please refer to ... ASDIRECTED XX 08/25/21 07:50 08/26/21 07:49 DC Heparin Sodium (Heparin) Please refer to ... ASDIRECTED XX 08/27/21 18:10 08/28/21 18:09 Heparin Sodium (Heparin) dose as per volume indica... ASDIRECTED PRN IV SEE LABEL COMMENTS 08/22/21 19:30 08/23/21 19:29 DC Heparin Sodium (Heparin) dose as per volume indica... ASDIRECTED PRN IV SEE LABEL COMMENTS 08/25/21 07:50 08/26/21 07:49 DC Heparin Sodium (Heparin) dose as per volume indica... ASDIRECTED PRN IV SEE LABEL COMMENTS 08/27/21 18:10 08/28/21 18:09 Heparin Sodium (Porcine) (Heparin) 5,000 units Q12H SC 08/22/21 21:00 08/28/21 09:06 Home Med (Home Med List Complete!) ASDIRECTED XX 08/24/21 16:15 08/24/21 16:16 DC Insulin Human Lispro (HumaLOG INSULIN) SEE PROTOCOL TABLE AC SC 08/22/21 17:30 08/27/21 17:25 Insulin Human Lispro (HumaLOG INSULIN) SEE PROTOCOL TABLE QHS SC 08/22/21 21:00 Ipratropium [place] (Atrovent Hfa) 2 puff RTID INH 08/22/21 20:00 08/27/21 12:47 Iron (Venofer) 100 mg HD IV 08/23/21 10:00 08/25/21 10:04 Levalbuterol HCl (Xopenex Hfa) 2 puff RQID INH 08/22/21 20:00 08/27/21 15:55 Lidocaine (Lidoderm Patch) 2 patch DAILY TD 08/23/21 09:00 08/28/21 09:07 Lidocaine (Lidoderm Patch) 2 patch DAILY TD 08/27/21 11:30 UNV Metoclopramide HCl (Reglan) 5 mg ACHS PO 08/22/21 17:30 08/28/21 09:15 Non-Formulary Medication ( See Comment Field Below ) REMOVE LIDODERM PATCH DAILY@21 XX 08/22/21 21:00 08/27/21 20:55 Non-Formulary Medication ( See Comment Field Below ) REMOVE LIDODERM PATCH DAILY@21 XX 08/27/21 21:00 UNV Ondansetron HCl (Zofran Odt) 4 mg Q6HP PRN PO NAUSEA OR VOMITING 08/22/21 14:40 Pantoprazole Sodium (Protonix) 40 mg BID PO 08/22/21 21:00 08/28/21 09:05 Polyethylene Glycol (Miralax) 1 pkt DAILY PO 08/23/21 09:00 Prednisone (Deltasone) 10 mg DAILY PO 08/27/21 09:00 08/28/21 09:05 Senna/Docusate Sodium (Senokot S) 1 tab BID PO 08/22/21 21:00 08/27/21 20:53 Sodium Chloride (Nacl 0.9%) 200 ml ASDIRECTED PRN IV SEE LABEL COMMENTS 08/22/21 19:30 08/23/21 19:29 DC Sodium Chloride (Nacl 0.9%) 200 ml ASDIRECTED PRN IV SEE LABEL COMMENTS 08/25/21 07:50 08/26/21 07:49 DC Sodium Chloride (Nacl 0.9%) 200 ml ASDIRECTED PRN IV SEE LABEL COMMENTS 08/27/21 18:10 08/28/21 18:09 Sucralfate (Carafate) 1 gm ACHS PO 08/22/21 17:30 08/28/21 09:15 Tramadol HCl (Ultram) 25 mg Q4HP PRN PO MODERATE PAIN (PS 5-7) 08/22/21 14:40 08/23/21 10:01 DC 08/23/21 08:47 DIXON CHENG MD Aug 28, 2021 09:40
--- NOTE | 2021-08-28 14:37 | IPN ---
NEPHROLOGY PROGRESS NOTE DATE: 08/28/2021 SUBJECTIVE: Ms. Montanez is seen this morning on her bedside. She is sitting in a chair. She is complaining of pain in her left thigh and wants her bharat removed. She has chronic dyspnea and remains on 3 liters of oxygen. She has no fever or chills. She denies any nausea, vomiting or diarrhea. PHYSICAL EXAMINATION: Temperature 98.7 degrees Fahrenheit, heart rate 70 per minute and respiratory rate 18 per minute. Blood pressure 135/64 mmHg and oxygen saturation 97% on 3 liters of oxygen. Head: Atraumatic. There is mild facial edema. Neck: She has a right sided internal jugular vein Permacath present. Minimal bleeding at the catheter exit site is noted with clotted blood. There is no fresh active bleeding. Her neck veins are moderately distended. Heart: Sounds are irregular in rhythm. Lungs: With bilateral rhonchi and mild wheezing. Abdomen: Soft and nontender and bowel sounds are normal. Extremities: Without any cyanosis or clubbing. She has massive edema on her left lower extremity and moderate edema on the right lower extremity. Neurologically: She is awake, alert and at her baseline mentation. LABORATORY DATA: Today's labs show: WBC count 12.1, hemoglobin 9.3, hematocrit 32.3 and platelets 207. Sodium 141, potassium 3.9, CO2 23, BUN 42, creatinine 2.73. A procalcitonin level is 0.17. PROBLEMS/PLAN: 1. End-stage renal disease: Patient is due for dialysis later today. She will be dialyzed this afternoon. 2. Congestive heart failure/hypervolemia: Patient is quite volume overloaded and I have discussed with her about need for frequent hemodialysis. She seems to be agreeable today, but today is her regular dialysis day. It remains to be seen if she will go tomorrow for ultrafiltration. Our plan is to try to remove about 2.5 liters of fluid today and then perform another 2 hours of extra ultrafiltration tomorrow. 3. Anemia: At the present time her anemia is stable and does not need any urgent intervention. She is receiving a weekly dose of Aranesp in dialysis along with Venofer 100 mg with each hemodialysis. 4. Hypotension: She does get hypotensive during dialysis so aggressive fluid removal is difficult. She is not on any anti-hypertensive medication. We will monitor her closely and consider midodrine if needed. 5. %%CCLIST%%
[2021-08-28 20:00] VITALS: BP 131/71
[2021-08-28] MEDS: **NOTE PATIENT COMMENT** MISC XX SCH (21:00)
[2021-08-28] MEDS ORDERED: SODIUM CHLORIDE 0.9% 1000ML IV PRN (21:00)
[2021-08-28] MEDS: MIRTAZAPINE 7.5MG PER 1/2 TABLET PO SCH (22:23)
[2021-08-28] MEDS: NORCO, ANEXSIA 5/325MG TABLET (HYDROcodone/ACETAMINOPHEN) PO PRN (22:25)
[2021-08-29] MEDS: NORCO, ANEXSIA 5/325MG TABLET (HYDROcodone/ACETAMINOPHEN) PO PRN (04:32)
[2021-08-29 05:19] VITALS: BP 138/65
[2021-08-29 06:24] LABS: BASO # 0.1 10^3/uL (0.0-0.2); BASO % 0.9 % (0.0-1.0); EOS # 0.2 10^3/uL (0.0-0.5); EOS % 2.4 % (0.0-3.0); HEMATOCRIT 30.6 % (36.0-47.0); HEMOGLOBIN 8.8 g/dl (12.0-15.5); LYMPH # 2.1 10^3/uL (1.5-5.0); LYMPH % 23.7 % (24.0-44.0); MEAN CORPUSCULAR HEMOGLOBIN 29.6 pg (27.0-33.0); MEAN CORPUSCULAR HGB CONC 28.8 g/dl (32.0-36.5); MONO # 1.2 10^3/uL (0.0-0.8); MONO % 12.8 % (2.0-8.0); NEUTROPHILS % 55.5 % (36.0-66.0); PLATELET COUNT, AUTOMATED 184 10^3/uL (150-450); RED BLOOD COUNT 2.97 10^6/uL (4.00-5.40)
[2021-08-29] MEDS: NORCO, ANEXSIA 5/325MG TABLET (HYDROcodone/ACETAMINOPHEN) PO SCH (06:40)
[2021-08-29 06:54] LABS: CALCIUM LEVEL 8.8 MG/DL (8.8-10.2); CREATININE FOR GFR 2.21 MG/DL (0.55-1.30); GLOMERULAR FILTRATION RATE 23.1 (>39); POTASSIUM SERUM 3.5 MEQ/L (3.5-5.1)
[2021-08-29] MEDS: HumaLOG INSULIN (NovoLOG) PER UNIT SC SCH ×4 (07:30→21:00)
[2021-08-29] MEDS: LEVALBUTEROL HFA 45MCG/ACT 15 GM INHALER INH SCH ×4 (08:00→20:00)
[2021-08-29] MEDS: IPRATROPIUM HFA INHALER 12.9 GRAMS (ATROVENT HFA) INH SCH ×3 (08:00→20:00)
[2021-08-29] MEDS: SYMBICORT 160/4.5MCG INHALER 6GM INH SCH ×2 (08:58→20:04)
[2021-08-29] MEDS: MIRALAX *UNIT DOSE* 17GM PACKET PO SCH (09:00)
[2021-08-29] MEDS: SENOKOT S TAB PO SCH ×2 (09:00→21:00)
[2021-08-29] MEDS: guaiFENesin 200 MG TAB PO SCH ×3 (09:39→21:22)
[2021-08-29] MEDS: HEPARIN SOD (PORCINE) 5000UNITS/ML 1ML VIAL/SYRINGE SC SCH ×2 (09:40→21:24)
[2021-08-29] MEDS: SUCRALFATE 1 GM TAB PO SCH ×4 (09:41→21:22)
[2021-08-29] MEDS: ACETAMINOPHEN 500 MG TAB PO SCH ×3 (09:41→21:23)
[2021-08-29] MEDS: PANTOPRAZOLE 40MG TAB (PROTONIX) PO SCH ×2 (09:42→21:23)
[2021-08-29] MEDS: predniSONE 10 MG TAB PO SCH (09:42)
[2021-08-29] MEDS: ATORVASTATIN 20 MG TAB PO SCH (09:42)
[2021-08-29] MEDS: AMIODARONE 200 MG TAB (PACERONE) PO SCH (09:42)
[2021-08-29] MEDS: METOCLOPRAMIDE 5 MG TAB PO SCH ×4 (09:42→21:23)
[2021-08-29] MEDS: REMEDY PHYTOPLEX Z-GUARD PASTE 113GM TUBE (FROM STOREROOM PRODUCT) TOP SCH ×3 (09:44→21:25)
[2021-08-29] MEDS: LIDOCAINE 5% (LIDODERM) PATCH TD SCH (09:44)
--- NOTE | 2021-08-29 10:17 | IPNPDOC ---
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 REVIEW OF SYSTEMS: The following is a completed review of systems and has been reviewed. Review of systems otherwise unremarkable. PAIN: Patient self reports left hip pain EYES: No recent vision changes EARS, NOSE, & THROAT: No throat pain, or dysphagia, or rhinorrhea CARDIOVASCULAR: Denies chest pain or palpitations PULMONARY: Denies shortness of breath, +dyspnea on exertion (chronic) GASTROINTESTINAL: Denies constipation/diarrhea GENITOURINARY: oliguric MUSCULOSKELETAL: s/p left femur fracture NEUROLOGICAL:denies paresthesias HEMATOLOGICAL: +anemia SKIN: + left hip incision PSYCHIATRIC: Unremarkable All other review of systems found to be negative. PHYSICAL EXAMINATION: VITAL SIGNS: Please see below. GENERAL: Pleasant and cooperative. No acute distress. HEENT: PERRL. Extraocular movements intact. Clear conjunctiva CARDIOVASCULAR: Regular rate and rhythm. No murmurs, rubs, or gallops LUNGS: CTA ABDOMEN: Soft, nontender, nondistended. Positive bowel sounds. Normal active bowel sounds NEUROLOGICAL: Alert and oriented times three. Cranial nerves II through XII grossly intact. Sensation grossly intact in all 4limbs EXTREMITIES: 4+\5 strength bilateral upper extremities. 4\5 strength right lower extremity. 4/5 ankle DF/EHL (limited exam due to hip facture) SKIN: sacrum with scant areas of blanchable erythema , left hip incision c/d/i no periwound induration ASSESSMENT:76-year-old F with past medical history of afib s/p watchamn's procedure, PM, CHF ESRD on HD who presents status post PLAN: 1. REhab- PT/OT advance mobility and ADLs, strengthen/stretch/maintain ROM all 4 limbs 2.Ortho- left femur fracture s/p ORIF cont WBAT and pain management- f/u ortho on d/c -per ortho bharat to be d/c'd on 08/30 3. CArdiac- hx of CHF cont dialy weights, fluid restrict, on HD for fluid management - Afib s/p watchmans device and PM cont amiodarone -HLD cont statin -medicine consulted to assist in overall management 4. Resp- hx of COPD on home with recent Covid PNA in June- cont inhaler treatments, guaifenesin, s/p course of antibiotics on acute care side out of concern for PNA -patient with wheeze on yesterday's exam, CXR showing overall improvement of recent opacities -patient afebrbile, procalcitonin is low, unlikely patient has ongoing infectious, f/u sputum cx and cont oral prednisone for now as patient may be developing COPD exacerbation although appears stable today 5. REnal- ESRD on HD renal consulted -s/p permacath placement 6. heme- anemia of chronic disease- renal managing 7. GI ppx- sucralfate and protonix -gastroparesis? cont reglan with meals 8. DVT ppx- heparin 9. Endo-: hx of DM cont ISS 10. Pain- judicious use of norco as patient had opioid induced hypercarbic respiratory failure, cont tylenol and lidoderm patch 11. Psych- cont remeron 7.5 mg qhs for depression 12. Dispo: 09-05-21 to home with family Barriers to d/c and functional status: Patient is ambulate 3 ft with Mod assist but requiring kun steady for all [id number] due to fear of falling, patient has the ability to do more, but is self-limiting and likely depressed. Her daughter states she is able to take care of her mother at her current elvel of function, btu would like her to try getti ng stronger and at least work on [id number].hopefully will not require lift device in order go get home, therapy to start working on slide board transfers as well. She still needs extensive PT and OT intervention. Medically patient has ESRD with anemia, pain, monitoring incisions and daily weights, starting antidepressant to help optimize participation in therapy Allergies Coded Allergies: codeine (Verified Adverse Reaction, Intermediate, stabbing abd pain, 11/30/20) phenytoin (Verified Adverse Reaction, Intermediate, feels like being stabbed in abd, 11/30/20) gabapentin (Verified Adverse Reaction, Mild, VERTIGO, 11/30/20) oxycodone (Verified Adverse Reaction, Mild, SHAKINESS, 11/30/20) Vital Signs Vital Signs Date Time Temp Pulse Resp B/P (MAP) Pulse Ox O2 Delivery O2 Flow Rate FiO2 08/29/21 08:52 18 Nasal Cannula 3.0 08/29/21 05:19 97.8 70 138/65 (89) 99 Laboratory Data CBC/BMP Laboratory Tests 08/29/21 06:01 Labs 24H Laboratory Tests 2 08/28/21 11:17: Bedside Glucose (Misc Panel) 108 08/28/21 17:52: Bedside Glucose (Misc Panel) 171H 08/28/21 22:33: Bedside Glucose (Misc Panel) 75L 08/29/21 00:02: Bedside Glucose (Misc Panel) 91 08/29/21 06:01: Immature Granulocyte % (Auto) 4.7H, Neutrophils (%) (Auto) 55.5, Lymphocytes (%) (Auto) 23.7L, Monocytes (%) (Auto) 12.8H, Eosinophils (%) (Auto) 2.4, Basophils (%) (Auto) 0.9, Neutrophils # (Auto) 5.0, Lymphocytes # (Auto) 2.1, Monocytes # (Auto) 1.2H, Eosinophils # (Auto) 0.2, Basophils # (Auto) 0.1, Nucleated Red Blood Cells % (auto) 0.9H, Anion Gap 4L, Glomerular Filtration Rate 23.1L, Calcium Level 8.8 Current Medications Current Medications Current Medications Medications (Trade) Dose Ordered Sig/Beatrice Route PRN Reason Start Time Stop Time Status Last Admin Dose Admin Acetaminophen (Tylenol Tab) 1,000 mg TID PO 08/22/21 21:00 08/29/21 09:41 Acetaminophen/ Hydrocodone Bitart ([place], Anexsia 5/325) 1 tab DAILY@0700 PO 08/23/21 07:00 08/29/21 06:40 Acetaminophen/ Hydrocodone Bitart ([place], Anexsia 5/325) 1 tab Q8HP PRN PO MODERATE PAIN (PS 5-7) 08/23/21 10:00 08/28/21 22:25 Amiodarone HCl ([place]acer[place], Cordarone) 200 mg DAILY PO 08/23/21 09:00 08/29/21 09:42 Atorvastatin Calcium (Lipitor) 20 mg DAILY PO 08/23/21 09:00 08/29/21 09:42 Budesonide/ Formoterol Fumarate (Symbicort 160/ 4.5mcg) 2 puff RBID INH 08/22/21 20:00 08/29/21 08:58 Calcium Carbonate (Tums) 500 mg Q6HP PRN PO HEARTBURN 08/22/21 14:40 Cefdinir (Omnicef) 300 mg HD PO 08/22/21 14:40 08/27/21 11:28 DC 08/25/21 15:20 Darbepoetin Ramy (Aranesp (Dialysis Use)) 100 mcg HD IV 08/23/21 10:00 08/28/21 13:10 Dextrose (Dextrose 50%) 25 ml ASDIRECTED PRN IV SEE LABEL COMMENTS 08/22/21 14:40 Glucagon (Glucagon) 1 mg ASDIRECTED PRN SC SEE LABEL COMMENTS 08/22/21 14:40 Glucose (Glucose) 16 GM ASDIRECTED PRN PO SEE LABEL COMMENTS 08/22/21 14:40 Guaifenesin (Robitussin Tab) 400 mg TID PO 08/22/21 16:00 08/29/21 09:39 Heparin Sodium (Heparin) Please refer to ... ASDIRECTED XX 08/22/21 19:30 08/23/21 19:29 DC Heparin Sodium (Heparin) Please refer to ... ASDIRECTED XX 08/25/21 07:50 08/26/21 07:49 DC Heparin Sodium (Heparin) Please refer to ... ASDIRECTED XX 08/27/21 18:10 08/28/21 18:09 DC Heparin Sodium (Heparin) Please refer to ... ASDIRECTED XX 08/28/21 21:00 08/29/21 20:59 Heparin Sodium (Heparin) dose as per volume indica... ASDIRECTED PRN IV SEE LABEL COMMENTS 08/22/21 19:30 08/23/21 19:29 DC Heparin Sodium (Heparin) dose as per volume indica... ASDIRECTED PRN IV SEE LABEL COMMENTS 08/25/21 07:50 08/26/21 07:49 DC Heparin Sodium (Heparin) dose as per volume indica... ASDIRECTED PRN IV SEE LABEL COMMENTS 08/27/21 18:10 08/28/21 18:09 DC Heparin Sodium (Heparin) dose as per volume indica... ASDIRECTED PRN IV SEE LABEL COMMENTS 08/28/21 21:00 08/29/21 20:59 Heparin Sodium (Porcine) (Heparin) 5,000 units Q12H SC 08/22/21 21:00 08/29/21 09:40 Home Med (Home Med List Complete!) ASDIRECTED XX 08/24/21 16:15 08/24/21 16:16 DC Insulin Human Lispro (HumaLOG INSULIN) SEE PROTOCOL TABLE AC SC 08/22/21 17:30 08/28/21 18:17 Insulin Human Lispro (HumaLOG INSULIN) SEE PROTOCOL TABLE QHS SC 08/22/21 21:00 Ipratropium [place] (Atrovent Hfa) 2 puff RTID INH 08/22/21 20:00 08/28/21 13:06 Iron (Venofer) 100 mg HD IV 08/23/21 10:00 08/25/21 10:04 Levalbuterol HCl (Xopenex Hfa) 2 puff RQID INH 08/22/21 20:00 08/28/21 15:31 Lidocaine (Lidoderm Patch) 2 patch DAILY TD 08/23/21 09:00 08/29/21 09:44 Lidocaine (Lidoderm Patch) 2 patch DAILY TD 08/27/21 11:30 UNV Metoclopramide HCl (Reglan) 5 mg ACHS PO 08/22/21 17:30 08/29/21 09:42 Mirtazapine (Remeron) 7.5 mg QHS PO 08/28/21 21:00 08/28/21 22:23 Non-Formulary Medication ( See Comment Field Below ) REMOVE LIDODERM PATCH DAILY@21 XX 08/22/21 21:00 08/28/21 21:00 Non-Formulary Medication ( See Comment Field Below ) REMOVE LIDODERM PATCH DAILY@21 XX 08/27/21 21:00 UNV Ondansetron HCl (Zofran Odt) 4 mg Q6HP PRN PO NAUSEA OR VOMITING 08/22/21 14:40 Pantoprazole Sodium (Protonix) 40 mg BID PO 08/22/21 21:00 08/29/21 09:42 Polyethylene Glycol (Miralax) 1 pkt DAILY PO 08/23/21 09:00 Prednisone (Deltasone) 10 mg DAILY PO 08/27/21 09:00 08/29/21 09:42 Senna/Docusate Sodium (Senokot S) 1 tab BID PO 08/22/21 21:00 08/27/21 20:53 Sodium Chloride (Nacl 0.9%) 200 ml ASDIRECTED PRN IV SEE LABEL COMMENTS 08/22/21 19:30 08/23/21 19:29 DC Sodium Chloride (Nacl 0.9%) 200 ml ASDIRECTED PRN IV SEE LABEL COMMENTS 08/25/21 07:50 08/26/21 07:49 DC Sodium Chloride (Nacl 0.9%) 200 ml ASDIRECTED PRN IV SEE LABEL COMMENTS 08/27/21 18:10 08/28/21 18:09 DC Sodium Chloride (Nacl 0.9%) 200 ml ASDIRECTED PRN IV SEE LABEL COMMENTS 08/28/21 21:00 08/29/21 20:59 Sucralfate (Carafate) 1 gm ACHS PO 08/22/21 17:30 08/29/21 09:41 Tramadol HCl (Ultram) 25 mg Q4HP PRN PO MODERATE PAIN (PS 5-7) 08/22/21 14:40 08/23/21 10:01 DC 08/23/21 08:47 DIXON CHENG MD Aug 29, 2021 10:17
--- NOTE | 2021-08-29 12:46 | IPN ---
NEPHROLOGY PROGRESS NOTE DATE: 08/29/2021 SUBJECTIVE: Ms. Montanez is seen this morning on her bedside. She is feeling better, but still has some cough and shortness of breath. She also has complaints of pain in her left thigh where she has bharat. She was dialyzed yesterday and we were able to remove 3.5 liters of fluid which she tolerated well. PHYSICAL EXAMINATION: Temperature 97.8 degrees Fahrenheit, heart rate 70 per minute and respiratory rate 18 per minute. Blood pressure 138/65 mmHg and oxygen saturation 99% on 3 liters of oxygen. Head: Atraumatic. Neck: Supple and JVD difficult to be assessed. Permacath is present in the right internal jugular vein. Heart: Sounds are regular. Lungs: With bilateral expiratory wheezing and rhonchi. Abdomen: Soft and nontender and bowel sounds are normal. Extremities: Without any cyanosis or clubbing. Lower extremity edema is much improved compared to yesterday. Neurologically: She is awake, alert and oriented times 3. LABORATORY DATA: Today's labs show: WBC count 9, hemoglobin 8.8, hematocrit 30.6. Sodium 139, potassium 3.5, BUN 25, creatinine 2.21. PROBLEMS/PLAN: 1. End-stage renal disease: Patient was dialyzed yesterday and her labs are appropriate. She will be scheduled for her next dialysis tomorrow. 2. Congestive heart failure/hypervolemia: Volume status has improved with 3.5 liters of fluid taken off yesterday. We will plan to do an extra session of ultrafiltration later this afternoon for 2 hours and we will try to remove another 2 liters of fluid as tolerated. 3. Hypokalemia: Her potassium level is 3.5 and this is related to dialysis. No intervention is needed and this will improve as she is eating well. 4. Anemia: Her anemia is stable and she will continue with Aranesp and Venofer in dialysis. No other intervention is needed.
[2021-08-29] MEDS ORDERED: ALTEPLASE 2MG/2ML VIAL XX ONE ×4 (13:25→14:00)
--- NOTE | 2021-08-29 15:24 | IPNPDOC ---
Date Seen The patient was seen on 08/29/21. Progress Note Subjective: Patient denies any left hip pain. Denies shortness of breath chest pain pressure tightness lightheadedness fever chills cough Patient says she has good appetite no diarrhea abdominal pain nausea or vomiting PHYSICAL EXAMINATION VITAL SIGNS: Please see below. General Exam: In dialysis no distress sleeping but arousable answers questions appropriately No distress no cyanosis HEENT: No JVD thyromegaly cervical lymphadenopathy face is symmetric tongue is midline moist mucous membranes Chest Exam: Diminished without rales or wheezing right permacath Heart: S1-S2 regular rate rhythm Abdomen Exam: Positive bowel sounds soft nontender nondistended obese no rebound or guarding Extremity Exam: Trace edema bilaterally postop left hip Skin Exam: Multiple ecchymotic areas bilateral upper extremities chest and abdomen LABORATORY DATA/imaging studies/microbiology: Please see below. ASSESSMENT AND PLAN: 76-year-old female from home with past medical history of ESRD, COPD on home oxygen, atrial fibrillation status post watchman device placement as well as pacemaker, congestive heart failure, chronic anemia, iron deficiency admitted to the medical service and transferred to acute rehab unit on 08/22/2021 after being admitted for a mechanical fall while walking to the bathroom with her walker was found to have an acute left femoral intertrochanteric fracture as well as a separate left greater trochanter fracture, and old right pubic rami fracture. Her medical hospitalization was complicated by acute on chronic respiratory failure with hypercarbia and hypoxia thought to be related to opioids, aspiration pneumonia for which she was treated with a full course of an tibiotics, transferred to ICU and placed on BIPAP, fluid overload managed by dialysis, and anemia requiring blood transfusion, medically optimized and went to the operating room on 08/11/21 for intramedullary rodding of the femur. Patient was transferred to the medical floor and had intermittent complaints of chest pain and abdominal pain negative work-up for acute cardiac ischemia, placed on PPI and Carafate for possible gastritis. Patient was discharged to acute rehab unit for rehab services. Left femoral neck fracture s/p Intramedullary rodding of femur on 08/11/21-ARU as needed pain meds bowel regimen postop management per orthopedic surgery stress gastritis-continue PPI and sucralfate. Acute on chronic respiratory failure with hypercarbia-patient needed ICU care with CPAP but now resolved aspiration pneumonia -Streptococcus pneumoniae heavy and Moraxella catarrhalis,Completed full course of cefdini ESRD-HD as per nephrology Malfunctioning permacath-permacath exchange by vascular surgery on 08/21/21 Anemia of chronic disease and iron deficiency-status post 3 unit of PRBC also getting darbepoetin on ferrous sulfate COPD with acute on chronic hypoxic and hypercarbic respiratory failure-resolved continue with bronchodilators Diabetes-on sliding scale insulin with coverage consistent carbohydrate diet Hypertension-controlled Atrial fibrillation status post placement of watchman device and pacemaker-on amiodarone. Diltiazem stopped due to low blood pressure. GERD-PPI Gout-Continue allopurinol VS, I&O, 24H, Fishbone Vital Signs/I&O Vital Signs Date Time Temp Pulse Resp B/P (MAP) Pulse Ox O2 Delivery O2 Flow Rate FiO2 08/29/21 08:52 18 Nasal Cannula 3.0 08/29/21 05:19 97.8 70 138/65 (89) 99 I&O- Last 24 Hours up to 6 AM 08/29/21 06:00 Intake Total 720 ml Output Total 3500 ml Balance -2780 ml Laboratory Data 24H LABS Laboratory Tests 2 08/28/21 17:52: Bedside Glucose (Misc Panel) 171H 08/28/21 22:33: Bedside Glucose (Misc Panel) 75L 08/29/21 00:02: Bedside Glucose (Misc Panel) 91 08/29/21 06:01: Immature Granulocyte % (Auto) 4.7H, Neutrophils (%) (Auto) 55.5, Lymphocytes (%) (Auto) 23.7L, Monocytes (%) (Auto) 12.8H, Eosinophils (%) (Auto) 2.4, Basophils (%) (Auto) 0.9, Neutrophils # (Auto) 5.0, Lymphocytes # (Auto) 2.1, Monocytes # (Auto) 1.2H, Eosinophils # (Auto) 0.2, Basophils # (Auto) 0.1, Nucleated Red Blood Cells % (auto) 0.9H, Anion Gap 4L, Glomerular Filtration Rate 23.1L, Calcium Level 8.8 08/29/21 11:29: Bedside Glucose (Misc Panel) 104 CBC/BMP Laboratory Tests 08/29/21 06:01 SHEERE LIMA MD Aug 29, 2021 13:40
[2021-08-29 20:00] VITALS: BP 166/77
[2021-08-29] MEDS ORDERED: SODIUM CHLORIDE 0.9% 1000ML IV PRN (21:10)
[2021-08-29] MEDS: MIRTAZAPINE 7.5MG PER 1/2 TABLET PO SCH (21:22)
[2021-08-29] MEDS: **NOTE PATIENT COMMENT** MISC XX SCH (21:25)
[2021-08-29 21:28] VITALS: BP 160/84
[2021-08-30 06:00] VITALS: BP_SYST 153; BP_SYST 169; BP_DIAS 62; BP_DIAS 75
[2021-08-30] MEDS: NORCO, ANEXSIA 5/325MG TABLET (HYDROcodone/ACETAMINOPHEN) PO SCH (07:04)
[2021-08-30] MEDS: HumaLOG INSULIN (NovoLOG) PER UNIT SC SCH ×4 (07:30→20:30)
[2021-08-30] MEDS: IPRATROPIUM HFA INHALER 12.9 GRAMS (ATROVENT HFA) INH SCH ×3 (08:00→20:00)
[2021-08-30] MEDS: SYMBICORT 160/4.5MCG INHALER 6GM INH SCH ×2 (08:00→20:32)
[2021-08-30] MEDS: LEVALBUTEROL HFA 45MCG/ACT 15 GM INHALER INH SCH ×4 (08:00→20:00)
[2021-08-30] MEDS: MIRALAX *UNIT DOSE* 17GM PACKET PO SCH (09:00)
[2021-08-30] MEDS: SENOKOT S TAB PO SCH ×2 (09:00→20:31)
[2021-08-30] MEDS: predniSONE 10 MG TAB PO SCH (09:28)
[2021-08-30] MEDS: ATORVASTATIN 20 MG TAB PO SCH (09:28)
[2021-08-30] MEDS: guaiFENesin 200 MG TAB PO SCH ×3 (09:29→20:29)
[2021-08-30] MEDS: HEPARIN SOD (PORCINE) 5000UNITS/ML 1ML VIAL/SYRINGE SC SCH ×2 (09:29→20:30)
[2021-08-30] MEDS: ACETAMINOPHEN 500 MG TAB PO SCH ×3 (09:29→20:30)
[2021-08-30] MEDS: PANTOPRAZOLE 40MG TAB (PROTONIX) PO SCH ×2 (09:29→20:29)
[2021-08-30] MEDS: AMIODARONE 200 MG TAB (PACERONE) PO SCH (09:29)
[2021-08-30] MEDS: LIDOCAINE 5% (LIDODERM) PATCH TD SCH (09:30)
[2021-08-30] MEDS: SUCRALFATE 1 GM TAB PO SCH ×4 (09:41→20:29)
[2021-08-30] MEDS: METOCLOPRAMIDE 5 MG TAB PO SCH ×4 (09:41→20:30)
[2021-08-30] MEDS: REMEDY PHYTOPLEX Z-GUARD PASTE 113GM TUBE (FROM STOREROOM PRODUCT) TOP SCH ×3 (09:45→20:30)
--- NOTE | 2021-08-30 12:13 | IPN ---
PROGRESS NOTE DATE: 08/30/2021 SUBJECTIVE: Ms. Montanez is seen this morning on her bedside. She just finished her physical and came back to her room. She is somewhat exhausted at present. She has complaint of pain in her left thigh where she has stapled following her hip surgery. She denies any fever or chills. She is chronically short of breath. PHYSICAL EXAMINATION: VITALS: Temperature 97 degrees Fahrenheit, heart rate 78 per minute, respiratory rate 18 per minute, blood pressure 153/62 mmHg, and oxygen saturation 96%. HEENT: Head is atraumatic. Neck veins are difficult to be assessed. She has a hemodialysis catheter in the right internal jugular vein. HEART: Heart sounds are regular. LUNGS: Diminished breath sounds and bibasilar rales. ABDOMEN: Soft and nontender. Bowel sounds are normal. EXTREMITIES: Without any cyanosis or clubbing. She has 3+ edema on her left lower extremity and 2+ on the right lower extremity. NEUROLOGIC: She is awake, alert and oriented x3. LABORATORY DATA: She did not have any new labs today and yesterday's labs have already been reviewed. PROBLEMS: 1. End-stage renal disease: Patient is scheduled for dialysis later today and will be dialyzed for 3 hours. 2. Hypervolemia and congestive heart failure: Her volume status is gradually improving. We have removed 5.5 liters of fluid over the last two days and we will try to remove another 2.5 liters today as tolerated. I would plan to do another extra ultrafiltration tomorrow if she is agreeable. 3. Hypokalemia: Her potassium level was 3.5 yesterday and we will continue to use higher potassium baths for dialysis. We are not planning to repeat her labs today, but will repeat her labs tomorrow. Her potassium can be supplemented as needed. 4. Left leg pain: She has complaint of pain at the staple site on her left thigh. I have talked to the nursing staff and they are planning to remove her bharat today. 5. Anemia: Patient remains on Aranesp 100 mcg daily with 100 mcg once a week with dialysis and she also receives Venofer 100 mg with each dialysis, which will be continued.
[2021-08-30] MEDS: ALTEPLASE 2MG/2ML VIAL IV PRN (16:02)
[2021-08-30 20:00] VITALS: BP 142/69
[2021-08-30] MEDS: MIRTAZAPINE 7.5MG PER 1/2 TABLET PO SCH (20:29)
[2021-08-30] MEDS: **NOTE PATIENT COMMENT** MISC XX SCH (20:31)
[2021-08-31] MEDS: LEVALBUTEROL HFA 45MCG/ACT 15 GM INHALER INH SCH ×4 (02:00→20:00)
[2021-08-31 06:00] VITALS: BP 149/69
[2021-08-31 06:16] LABS: BASO # 0.1 10^3/uL (0.0-0.2); BASO % 0.7 % (0.0-1.0); EOS # 0.3 10^3/uL (0.0-0.5); EOS % 2.4 % (0.0-3.0); HEMATOCRIT 34.7 % (36.0-47.0); LYMPH # 2.4 10^3/uL (1.5-5.0); LYMPH % 23.4 % (24.0-44.0); MEAN CORPUSCULAR HEMOGLOBIN 29.7 pg (27.0-33.0); MEAN CORPUSCULAR HGB CONC 28.8 g/dl (32.0-36.5); MONO # 1.2 10^3/uL (0.0-0.8); MONO % 11.9 % (2.0-8.0); NEUTROPHILS # 5.9 10^3/uL (1.5-8.5); NEUTROPHILS % 57.5 % (36.0-66.0); PLATELET COUNT, AUTOMATED 200 10^3/uL (150-450); RED BLOOD COUNT 3.37 10^6/uL (4.00-5.40); WHITE BLOOD COUNT 10.3 10^3/uL (4.0-10.0)
[2021-08-31] MEDS: NORCO, ANEXSIA 5/325MG TABLET (HYDROcodone/ACETAMINOPHEN) PO SCH (06:37)
[2021-08-31 06:44] LABS: CALCIUM LEVEL 8.7 MG/DL (8.8-10.2); CREATININE FOR GFR 2.66 MG/DL (0.55-1.30); GLOMERULAR FILTRATION RATE 18.7 (>39)
[2021-08-31] MEDS: HumaLOG INSULIN (NovoLOG) PER UNIT SC SCH ×4 (07:30→20:46)
[2021-08-31] MEDS: IPRATROPIUM HFA INHALER 12.9 GRAMS (ATROVENT HFA) INH SCH ×3 (07:34→20:59)
[2021-08-31] MEDS: SYMBICORT 160/4.5MCG INHALER 6GM INH SCH ×2 (07:34→20:00)
[2021-08-31] MEDS: TIOTROPIUM INHALER/CAPSULE (SPIRIVA) INH SCH (08:00)
[2021-08-31] MEDS: SUCRALFATE 1 GM TAB PO SCH ×4 (08:57→20:45)
[2021-08-31] MEDS: PANTOPRAZOLE 40MG TAB (PROTONIX) PO SCH ×2 (08:57→20:45)
[2021-08-31] MEDS: METOCLOPRAMIDE 5 MG TAB PO SCH ×4 (08:57→20:45)
[2021-08-31] MEDS: ATORVASTATIN 20 MG TAB PO SCH (08:57)
[2021-08-31] MEDS: guaiFENesin 200 MG TAB PO SCH ×3 (08:57→20:45)
[2021-08-31] MEDS: AMIODARONE 200 MG TAB (PACERONE) PO SCH (08:58)
[2021-08-31] MEDS: predniSONE 10 MG TAB PO SCH (08:58)
[2021-08-31] MEDS: ACETAMINOPHEN 500 MG TAB PO SCH ×3 (08:58→20:46)
[2021-08-31] MEDS: MIRALAX *UNIT DOSE* 17GM PACKET PO SCH (08:59)
[2021-08-31] MEDS: SENOKOT S TAB PO SCH ×2 (08:59→20:45)
[2021-08-31] MEDS: LIDOCAINE 5% (LIDODERM) PATCH TD SCH (08:59)
[2021-08-31] MEDS: REMEDY PHYTOPLEX Z-GUARD PASTE 113GM TUBE (FROM STOREROOM PRODUCT) TOP SCH ×3 (08:59→20:47)
[2021-08-31] MEDS: HEPARIN SOD (PORCINE) 5000UNITS/ML 1ML VIAL/SYRINGE SC SCH ×2 (08:59→20:46)
[2021-08-31] MEDS ORDERED: SODIUM CHLORIDE 0.9% 1000ML IV PRN (09:50)
--- NOTE | 2021-08-31 11:03 | CR.PDOC ---
General Date of Consultation: Aug 31, 2021 Consultation REASON FOR PULMONOLOGY CONSULTATION/CHIEF COMPLAINT: COPD HISTORY OF PRESENT ILLNESS: 76-year-old female with history of end-stage renal disease, COPD on home oxygen, A. fib status post watchman device as well as pacemaker, CHF, chronic anemia who initially presented to the hospital status post mechanical fall at home. It occurred while she was ambulating to the bathroom. When she arrived to the ED she was hemodynamically stable and imaging revealed a left femoral intertrochant gaudencio fracture. She was complaining of severe left hip pain. She was admitted to [facility] and orthopedic consult was pending. After coming back from CT scan it was noted that she was lethargic and hypoxic and her ABG showed that she was acutely hypercapnic. To note she did receive multiple doses of morphine and Percocet. She was admitted to the ICU for acute on chronic hypercapnic respira tory failure which improved with noninvasive ventilation and several rounds of hemodialysis. She subsequently went for her orthopedic surgery and was then discharged to inpatient rehab. Pulmonary is reconsulted due to the concern of COPD exacerbation. Patient is seen at bedside. She is afebrile over the last 24 hours. She feels that her respiratory status is at her baseline from before she was hospitalized. She does have cough that is intermittently productive of yellow sputum but she says that this is her baseline. She is working with physical therapy. She does not have any shortness of breath at this time. She is currently on 3 L nasal cannula and satting 95%. She denies any fever, chills, hemoptysis, wheezing. She did receive dialysis yesterday and she does feel that there was some improvement in her breathing today. PAST MEDICAL/SURGICAL HISTORY: COPD on home oxygen, chronic hypercapnic respiratory failure, atrial fibrillation, end-stage renal disease, CHF, gout, diabetes, CAD, PAD, hypertension, pacemaker placement FAMILY HISTORY: No significant cardiopulmonary disease history SOCIAL HISTORY: Former smoker reports that she quit in the year 2019. Occasional alcohol use and denies illicit drug use. ALLERGIES: Please see below. HOME MEDICATIONS: Please see below. REVIEW OF SYSTEMS: CONSTITUTIONAL: Denies fever, chills, night sweats, weight loss EYES: No blurring of vision or redness. ENT: No sore throat. No epistaxis. No tinnitus. CARDIOVASCULAR: No chest pain. No palpitations. RESPIRATORY: See HPI GASTROINTESTINAL: No nausea, vomiting, or diarrhea. GENITOURINARY: No frequency, urgency, nocturia. No hematuria or dysuria. MUSCULOSKELETAL: Left leg pain INTEGUMENTARY: No rash or swelling NEUROLOGIC: No headache. No numbness or tingling of the extremities. No weakness. PSYCHIATRIC: No confusion or mood changes. ENDOCRINE: No fatigue, no goiter. HEMATOLOGICAL: No bleeding. No petechiae. No bruising. PHYSICAL EXAMINATION: VITAL SIGNS: Please see below. GENERAL APPEARANCE: Alert and awake. Sitting up in wheelchair. HEENT: no thyromegaly, trachea midline, PERRLA. normal mucous membranes RESPIRATORY: CTA B/L, good air entry. CARDIOVASCULAR: +s1 s2, no murmurs. ABDOMEN: nontender, not distended, +BS EXTREMITIES: no edema or erythema. palpable distal pulses SKIN: no rash, no purpura NEUROLOGICAL: no sensory or motor deficits, orientedx3. LABS/IMAGING: No chest x-ray from today ASSESSMENT: 1. Chronic hypoxic/hypercapnic respiratory failure secondary to COPD on home oxygen. Not currently in exacerbation 2. Left femoral neck fracture status post mechanical fall, status post medullary nail fixation 3. History of CATHRYN noncompliant with PAP therapy. 4. History of A. fib status post watchman procedure and pacemaker 5. End-stage renal disease on hemodialysis 6. Metabolic encephalopathy resolved PLAN: * Continue with Symbicort and would add Spiriva to optimize her respiratory status. Continue with nebulizers as needed. * I do not believe she needs any further courses of antibiotics or steroids. * I again advised that she use tabletop CPAP at night however she is refusing. * Judicious use of narcotics for pain control * DVT prophylax Thank you for the courtesy of this consult. Please text me on Vocera for any questions or concerns. Melquiades Harrison MD Pulmonary/Critical Care Vital Signs/I&O Vital Signs Date Time Temp Pulse Resp B/P (MAP) Pulse Ox O2 Delivery O2 Flow Rate FiO2 08/31/21 09:00 3.0 08/31/21 07:10 18 Nasal Cannula 08/31/21 06:00 98.3 71 149/69 (95) 95 I&O- Last 24 Hours up to 6 AM 08/31/21 06:00 Intake Total 1230 ml Output Total 2100 ml Balance -870 ml Laboratory Data Labs 24H Laboratory Tests 2 08/30/21 11:23: Bedside Glucose (Misc Panel) 101 08/30/21 16:37: Bedside Glucose (Misc Panel) 133H 08/30/21 20:01: Bedside Glucose (Misc Panel) 132H 08/31/21 05:32: Bedside Glucose (Misc Panel) 88 08/31/21 05:49: Immature Granulocyte % (Auto) 4.1H, Neutrophils (%) (Auto) 57.5, Lymphocytes (%) (Auto) 23.4L, Monocytes (%) (Auto) 11.9H, Eosinophils (%) (Auto) 2.4, Basophils (%) (Auto) 0.7, Neutrophils # (Auto) 5.9, Lymphocytes # (Auto) 2.4, Monocytes # (Auto) 1.2H, Eosinophils # (Auto) 0.3, Basophils # (Auto) 0.1, Nucleated Red Blood Cells % (auto) 0.3H, Anion Gap 9, Glomerular Filtration Rate 18.7L, Calcium Level 8.7L CBC/BMP Laboratory Tests 08/31/21 05:49 Allergies Coded Allergies: codeine (Verified Adverse Reaction, Intermediate, stabbing abd pain, 11/30/20) phenytoin (Verified Adverse Reaction, Intermediate, feels like being stabbed in abd, 11/30/20) gabapentin (Verified Adverse Reaction, Mild, VERTIGO, 11/30/20) oxycodone (Verified Adverse Reaction, Mild, SHAKINESS, 11/30/20) Home Medications Scheduled Allopurinol (Allopurinol) 100 Mg Tablet, 100 MG PO DAILY, (Reported) Amiodarone HCl (Amiodarone HCl) 200 Mg Tablet, 200 MG PO DAILY, (Reported) Atorvastatin Calcium (Atorvastatin Calcium) 20 Mg Tablet, 20 MG PO DAILY, (Re ported) Budesonide/Formoterol (Symbicort 160-4.5 Mcg Inhaler) 6 Gm Hfa.aer.ad, 2 PUFF INH RBID for 30 Days, #1 Calcitriol (Calcitriol) 0.25 Mcg Capsule, 0.25 MCG PO DAILY, (Reported) Calcium Carbonate (Calcium) 600 Mg Tablet, 600 MG PO BID, (Reported) Cefdinir (Cefdinir) 300 Mg Capsule, 300 MG PO HD for 10 Days, #10 Cholecalciferol (Vitamin D3) (Vitamin D3) 1,000 Unit Tablet, 1,000 UNITS PO QPM, (Reported) TAKES AT 1600 Ferrous Sulfate (Ferrous Sulfate) 325 Mg Tablet, 325 MG PO BID, (Reported) Fluticasone/Vilanterol (Breo Ellipta 200-25 Mcg INH) 1 Each Blst.w.dev, 1 PUFF INH DAILY, (Reported) Folic Acid (Folic Acid) 1 Mg Tablet, 1 MG PO DAILY, (Reported) Furosemide (Furosemide) 40 Mg Tablet, 80 MG PO DAILY, (Reported) Heparin Sodium,Porcine (Heparin Sodium) 5,000 Unit/1 Ml Syringe, 5,000 UNITS SQ BID for 30 Days, #60 Insulin Human Lispro (Humalog) 100 Unit/1 Ml Vial, 0 UNITS SC AC for 5 Days, #50 Insulin Human Lispro (Humalog) 100 Unit/1 Ml Vial, 0 UNITS SC QHS for 5 Days, #5 Ipratropium Roosevelt (Ipratropium Roosevelt) 0.2 Mg/1 Ml Solution, 0.5 MG INH RTID for 5 Days, #15 Levalbuterol Hydrochloride (Xopenex Concentrate) 1.25 Mg/0.5 Ml Vial.neb, 0.63 MG INH RTID for 5 Days, #15 Lidocaine (Lidocaine) 5% Adh..patch, 2 PATCH TD DAILY for 10 Days, #10 Metoclopramide Hcl (Reglan) 5 Mg Tablet, 5 MG PO ACHS, #20 Pantoprazole Sodium (Pantoprazole Sodium) 40 Mg Tablet.dr, 40 MG PO BID for 30 Days, #60 Polyethylene Glycol 3350 (Miralax) 17 Gm Powd.pack, 1 PKT PO DAILY for 10 Days, #10 Raloxifene HCl (Raloxifene HCl) 60 Mg Tablet, 60 MG PO DAILY, (Reported) Rosuvastatin Calcium (Rosuvastatin Calcium) 10 Mg Tablet, 10 MG PO DAILY, (Reported) Sennosides/Docusate Sodium (Senna Plus Tablet) 1 Each Tablet, 2 TAB PO BID for 10 Days, #40 Sucralfate (Sucralfate) 1 Gm/10 Ml Oral.susp, 1 GM PO ACHS for 10 Days, #40 Scheduled PRN Albuterol Sulf (Albuterol Sulfate) 2.5 Mg/3 Ml Vial.neb, 2.5 MG INH QID PRN for SHORTNESS OF BREATH, (Reported) Albuterol Sulfate (Ventolin Hfa) 18 Gm Hfa.aer.ad, 2 PUFFS INH Q6H PRN for SOB/WHEEZING, (Reported) Calcium Carbonate (Calcium Carbonate) 200 Mg Tab.chew, 1,000 MG PO Q4HP PRN for HEARTBURN for 5 Days, #30 Dextrose (Glucose) 4 Gm Tab.chew, 0 GM PO ASDIRECTED PRN for SEE LABEL COMMENTS for 5 Days, #5 Guaifenesin (Mucinex) 600 Mg Tab.er.12h, 600 MG PO BIDP PRN for congestion, cough for 10 Days, #20 Hydrocodone/Acetaminophen (Hydrocodone-Acetamin 5-325 mg) 1 Each Tablet, 1 TAB PO Q8HP PRN for PAIN LEVEL 8-10 for 5 Days, #15 Tramadol HCl (Tramadol HCl) 50 Mg Tablet, 25 MG PO Q12HP PRN for PAIN LEVEL 5-7 for 5 Days, #10 MELQUIADES HARRISON MD Aug 31, 2021 11:03
--- NOTE | 2021-08-31 12:54 | IPN ---
PROGRESS NOTE DATE: 08/31/2021 SUBJECTIVE: Ms. Montanez is seen this morning on her bedside. She is sitting in the chair. She still has complaint of pain in her left thigh. She had her bharat removed yesterday. The patient also had regular hemodialysis and we were able to remove another 2.1 liter of fluid. Total we have removed 7.5 liters over the last three days. Her dyspnea is chronic and stable. Her lower extremity edema has improved significantly. She denies any nausea or vomiting. OBJECTIVE: On physical examination, temperature 98.3 degrees Fahrenheit, heart rate 70 per minute and respiratory rate 18 per minute. Blood pressure 149/69 mmHg and oxygen saturation 95% on 3 liters of oxygen. Her head is atraumatic. Neck supple and jugular venous distention (JVD) difficult to be assess. Hemodialysis PermCath is present in right internal jugular vein. Heart sounds are regular and lungs are much clearer now. Abdomen: Soft and nontender and bowel sounds are normal. Extremities without any cyanosis or clubbing. Left thigh incision is clean and without any signs of infection. Lower extremity edema has improved significantly. LABORATORY DATA: Today's labs show WBC count 10.3, hemoglobin 10.0 and hematocrit 34.7. Platelets 200. Sodium 135, potassium 4.0, Co2 27, BUN 31 and creatinine 2.66. PROBLEMS: 1. End-stage renal disease. The patient was dialyzed yesterday and she tolerated dialysis treatment very well. Next regular dialysis will be scheduled for Friday. 2. Congestive heart failure/peripheral edema. Volume status has improved significantly with frequent dialysis and aggressive fluid removal. She is available to go for another session of ultrafiltration today and we will try to remove another 1.5 liters of fluid today. 3. Anemia. Her anemia has been stable and improved. She receives Aranesp once a week and Venofer with each dialysis.
[2021-08-31 14:00] VITALS: BP 137/72
[2021-08-31 20:00] VITALS: BP 145/70
[2021-08-31] MEDS: MIRTAZAPINE 7.5MG PER 1/2 TABLET PO SCH (20:45)
[2021-08-31] MEDS: **NOTE PATIENT COMMENT** MISC XX SCH (20:47)
[2021-09-01] MEDS: LEVALBUTEROL HFA 45MCG/ACT 15 GM INHALER INH SCH ×4 (02:00→20:00)
[2021-09-01 06:00] VITALS: BP 125/61
[2021-09-01] MEDS: SUCRALFATE 1 GM TAB PO SCH ×4 (06:33→20:46)
[2021-09-01] MEDS: METOCLOPRAMIDE 5 MG TAB PO SCH ×4 (06:33→20:47)
[2021-09-01] MEDS: NORCO, ANEXSIA 5/325MG TABLET (HYDROcodone/ACETAMINOPHEN) PO SCH (06:34)
[2021-09-01] MEDS: HumaLOG INSULIN (NovoLOG) PER UNIT SC SCH ×4 (07:30→20:47)
[2021-09-01] MEDS: SYMBICORT 160/4.5MCG INHALER 6GM INH SCH ×2 (08:00→20:00)
[2021-09-01] MEDS: MIRALAX *UNIT DOSE* 17GM PACKET PO SCH (09:00)
[2021-09-01] MEDS: SENOKOT S TAB PO SCH ×2 (09:00→20:47)
[2021-09-01] MEDS: TIOTROPIUM INHALER/CAPSULE (SPIRIVA) INH SCH (09:09)
[2021-09-01] MEDS: IPRATROPIUM HFA INHALER 12.9 GRAMS (ATROVENT HFA) INH SCH ×3 (09:09→20:00)
[2021-09-01] MEDS: guaiFENesin 200 MG TAB PO SCH ×3 (10:21→20:46)
[2021-09-01] MEDS: ACETAMINOPHEN 500 MG TAB PO SCH ×3 (10:23→20:47)
[2021-09-01] MEDS: ATORVASTATIN 20 MG TAB PO SCH (10:23)
[2021-09-01] MEDS: AMIODARONE 200 MG TAB (PACERONE) PO SCH (10:23)
[2021-09-01] MEDS: predniSONE 10 MG TAB PO SCH (10:23)
[2021-09-01] MEDS: PANTOPRAZOLE 40MG TAB (PROTONIX) PO SCH ×2 (10:23→20:47)
[2021-09-01] MEDS: HEPARIN SOD (PORCINE) 5000UNITS/ML 1ML VIAL/SYRINGE SC SCH ×2 (10:25→20:46)
[2021-09-01] MEDS: REMEDY PHYTOPLEX Z-GUARD PASTE 113GM TUBE (FROM STOREROOM PRODUCT) TOP SCH ×3 (10:26→20:48)
[2021-09-01] MEDS: LIDOCAINE 5% (LIDODERM) PATCH TD SCH (10:29)
[2021-09-01 18:00] VITALS: BP 130/62
--- NOTE | 2021-09-01 18:29 | IPN ---
NEPHROLOGY PROGRESS NOTE DATE: 09/01/2021 SUBJECTIVE: Mrs. Montanez is seen this morning at her bedside. She is sitting in her wheelchair as usual. She underwent ultrafiltration yesterday and we were able to remove 1.5 liters of fluid. In the last 4 days we have removed a total of 5 liters of fluid. She has tolerated it well so far. OBJECTIVE: PHYSICAL EXAMINATION: VITAL SIGNS: Temperature 97 degrees Fahrenheit, heart rate 70 per minute and respiratory rate 18 per minute. Blood pressure is 125/60 mm of mercury and oxygen saturation is 98% on 3 liters oxygen. HEENT: Her head is atraumatic. NECK: Supple and JVD is difficult to be assessed. She has a right sided internal jugular vein permacath present. HEART: Regular. LUNGS: Few basilar crackles. ABDOMEN: Soft and nontender and bowel sounds are normal. EXTREMITIES: Without any cyanosis or clubbing. Lower extremity edema has improved significantly. NEUROLOGICAL: She is at her baseline mentation without any focal deficits. LABORATORY STUDIES: The patient has no new labs sent today. PROBLEMS: 1. End-stage renal disease - The patient is regularly dialyzed on a Friday, and Friday schedule. She had her regular dialysis on and an extra ultrafiltration on Friday. We will plan her next dialysis tomorrow. 2. Congestive heart failure volume status has improved significantly with aggressive fluid removal and frequent hemodialysis. She has tolerated it well so far. 3. Anemia her anemia has been stable and improved. CBC will be checked next week again. She received Aranesp 100 mcg once a week with hemodialysis which will be continued. She has also been receiving intravenous Venofer 100 mg with each hemodialysis and will complete a total of 10 doses. 4. Deconditioning and need for rehab - The patient is making slow progress with acute rehab. The patient is likely to go home next week.
[2021-09-01 20:00] VITALS: BP 116/57
[2021-09-01] MEDS: MIRTAZAPINE 7.5MG PER 1/2 TABLET PO SCH (20:47)
[2021-09-01] MEDS: **NOTE PATIENT COMMENT** MISC XX SCH (20:48)
[2021-09-02 06:00] VITALS: BP 125/60
[2021-09-02] MEDS: SUCRALFATE 1 GM TAB PO SCH ×4 (06:34→21:12)
[2021-09-02] MEDS: NORCO, ANEXSIA 5/325MG TABLET (HYDROcodone/ACETAMINOPHEN) PO SCH (06:34)
[2021-09-02] MEDS: METOCLOPRAMIDE 5 MG TAB PO SCH ×4 (06:34→21:12)
[2021-09-02] MEDS ORDERED: SODIUM CHLORIDE 0.9% 1000ML IV PRN (07:00)
[2021-09-02] MEDS: HumaLOG INSULIN (NovoLOG) PER UNIT SC SCH ×4 (07:30→21:00)
[2021-09-02] MEDS: guaiFENesin 200 MG TAB PO SCH ×3 (08:04→21:12)
[2021-09-02] MEDS: PANTOPRAZOLE 40MG TAB (PROTONIX) PO SCH ×2 (08:04→21:12)
[2021-09-02] MEDS: AMIODARONE 200 MG TAB (PACERONE) PO SCH (08:04)
[2021-09-02] MEDS: ATORVASTATIN 20 MG TAB PO SCH (08:04)
[2021-09-02] MEDS: predniSONE 10 MG TAB PO SCH (08:04)
[2021-09-02] MEDS: ACETAMINOPHEN 500 MG TAB PO SCH ×3 (08:04→21:14)
[2021-09-02] MEDS: LIDOCAINE 5% (LIDODERM) PATCH TD SCH (08:05)
[2021-09-02] MEDS: HEPARIN SOD (PORCINE) 5000UNITS/ML 1ML VIAL/SYRINGE SC SCH ×2 (08:10→21:15)
[2021-09-02] MEDS: REMEDY PHYTOPLEX Z-GUARD PASTE 113GM TUBE (FROM STOREROOM PRODUCT) TOP SCH ×3 (08:11→21:15)
[2021-09-02] MEDS: MIRALAX *UNIT DOSE* 17GM PACKET PO SCH (09:00)
[2021-09-02] MEDS: SENOKOT S TAB PO SCH ×2 (09:00→21:12)
[2021-09-02 09:08] LABS: ALBUMIN 2.5 GM/DL (3.2-5.2); CALCIUM LEVEL 8.5 MG/DL (8.8-10.2); CREATININE FOR GFR 3.63 MG/DL (0.55-1.30); PHOSPHORUS LEVEL 3.9 MG/DL (2.5-4.9); POTASSIUM SERUM 4.5 MEQ/L (3.5-5.1)
[2021-09-02] MEDS: LEVALBUTEROL HFA 45MCG/ACT 15 GM INHALER INH SCH ×3 (10:43→20:00)
[2021-09-02] MEDS: TIOTROPIUM INHALER/CAPSULE (SPIRIVA) INH SCH (10:44)
[2021-09-02] MEDS: IPRATROPIUM HFA INHALER 12.9 GRAMS (ATROVENT HFA) INH SCH ×3 (10:44→20:00)
[2021-09-02] MEDS: SYMBICORT 160/4.5MCG INHALER 6GM INH SCH ×2 (10:45→20:26)
[2021-09-02] MEDS: ALTEPLASE 2MG/2ML VIAL IV PRN (11:42)
--- NOTE | 2021-09-02 12:39 | IPN ---
NEPHROLOGY PROGRESS NOTE DATE: 09/02/2021 SUBJECTIVE: Ms. Montanez is seen this morning on her bedside. She is being dialyzed this morning. She did not have any physical therapy scheduled, so she was available for dialysis in the morning. Her chronic dyspnea remains unchanged and she is still on 3 liters oxygen. She denies any fever or chills. PHYSICAL EXAMINATION: VITAL SIGNS: Temperature 97.3 degrees Fahrenheit, heart rate 72 per minute, respiratory rate 18 per minute, blood pressure 125/60 mmHg, oxygen saturation 96% on 3 liters oxygen. HEAD: Atraumatic. NECK: Supple and jugular venous distention (JVD) difficult to be assessed. Hemodialysis Permacath is present in right internal jugular vein. HEART SOUNDS: Regular. LUNGS: Diminished breath sounds and basilar crepitations. ABDOMEN: Soft and nontender. Bowel sounds are normal. EXTREMITIES: Without any cyanosis or clubbing. NEUROLOGIC: She is at her baseline mentation. LABORATORY DATA: This morning's labs show sodium 139, potassium 4.5, CO2 25, BUN 61, creatinine 3.63, glucose 181, calcium 8.5. PROBLEMS: 1. End-stage renal disease. Patient will be dialyzed for three hours this morning. Her electrolytes are stable. 2. Congestive heart failure and hypoxemia. Volume status is chronically decompensated, but much improved since we frequently dialyzed her last week. We will about 2.5 liter removal as tolerated. 3. Anemia. Her anemia has been stable and she received Venofer 100 mg with every dialysis and Aranesp 100 mcg once a week. Her CBC will be repeated tomorrow. 4. Chronic obstructive pulmonary disease (COPD) and chronic hypoxemia. It remains unchanged and she is still requiring 3 liters of oxygen. 5. Deconditioning. Patient is still very weak and continues with rehabilitation. She is likely to be discharged next week.
[2021-09-02 12:45] VITALS: BP 134/61
[2021-09-02 14:00] VITALS: BP 146/70
[2021-09-02 20:00] VITALS: BP 154/72
[2021-09-02] MEDS: MIRTAZAPINE 7.5MG PER 1/2 TABLET PO SCH (21:13)
[2021-09-02] MEDS: **NOTE PATIENT COMMENT** MISC XX SCH (21:18)
[2021-09-02] MEDS ORDERED: NORCO, ANEXSIA 5/325MG TABLET (HYDROcodone/ACETAMINOPHEN) PO PRN (22:10)
[2021-09-03] MEDS: LEVALBUTEROL HFA 45MCG/ACT 15 GM INHALER INH SCH ×4 (01:16→21:23)
[2021-09-03 04:00] VITALS: BP 141/66
[2021-09-03 06:03] LABS: BASO # 0.1 10^3/uL (0.0-0.2); BASO % 0.8 % (0.0-1.0); EOS # 0.3 10^3/uL (0.0-0.5); EOS % 2.6 % (0.0-3.0); HEMATOCRIT 33.3 % (36.0-47.0); HEMOGLOBIN 9.7 g/dl (12.0-15.5); LYMPH # 2.2 10^3/uL (1.5-5.0); LYMPH % 20.2 % (24.0-44.0); MEAN CORPUSCULAR HEMOGLOBIN 30.2 pg (27.0-33.0); MEAN CORPUSCULAR HGB CONC 29.1 g/dl (32.0-36.5); MEAN CORPUSCULAR VOLUME 103.7 fl (80.0-96.0); MONO # 1.5 10^3/uL (0.0-0.8); MONO % 13.9 % (2.0-8.0); NEUTROPHILS # 6.2 10^3/uL (1.5-8.5); NEUTROPHILS % 57.8 % (36.0-66.0); PLATELET COUNT, AUTOMATED 197 10^3/uL (150-450); RED BLOOD COUNT 3.21 10^6/uL (4.00-5.40); WHITE BLOOD COUNT 10.7 10^3/uL (4.0-10.0)
[2021-09-03 06:29] LABS: CALCIUM LEVEL 8.7 MG/DL (8.8-10.2); CREATININE FOR GFR 2.82 MG/DL (0.55-1.30); GLOMERULAR FILTRATION RATE 17.4 (>39); POTASSIUM SERUM 4.4 MEQ/L (3.5-5.1)
[2021-09-03] MEDS: NORCO, ANEXSIA 5/325MG TABLET (HYDROcodone/ACETAMINOPHEN) PO SCH (06:56)
[2021-09-03] MEDS: HumaLOG INSULIN (NovoLOG) PER UNIT SC SCH ×4 (07:30→20:22)
[2021-09-03] MEDS: IPRATROPIUM HFA INHALER 12.9 GRAMS (ATROVENT HFA) INH SCH ×3 (07:45→21:23)
[2021-09-03] MEDS: SYMBICORT 160/4.5MCG INHALER 6GM INH SCH ×2 (07:48→21:23)
[2021-09-03] MEDS: TIOTROPIUM INHALER/CAPSULE (SPIRIVA) INH SCH (07:48)
[2021-09-03] MEDS: SENOKOT S TAB PO SCH ×2 (09:00→20:21)
[2021-09-03] MEDS: MIRALAX *UNIT DOSE* 17GM PACKET PO SCH (09:00)
[2021-09-03] MEDS: METOCLOPRAMIDE 5 MG TAB PO SCH ×4 (09:11→20:21)
[2021-09-03] MEDS: AMIODARONE 200 MG TAB (PACERONE) PO SCH (09:11)
[2021-09-03] MEDS: PANTOPRAZOLE 40MG TAB (PROTONIX) PO SCH ×2 (09:11→20:21)
[2021-09-03] MEDS: predniSONE 10 MG TAB PO SCH (09:11)
[2021-09-03] MEDS: ATORVASTATIN 20 MG TAB PO SCH (09:11)
[2021-09-03] MEDS: SUCRALFATE 1 GM TAB PO SCH ×4 (09:11→20:21)
[2021-09-03] MEDS: ACETAMINOPHEN 500 MG TAB PO SCH ×3 (09:12→20:21)
[2021-09-03] MEDS: guaiFENesin 200 MG TAB PO SCH ×3 (09:12→20:21)
[2021-09-03] MEDS: REMEDY PHYTOPLEX Z-GUARD PASTE 113GM TUBE (FROM STOREROOM PRODUCT) TOP SCH ×3 (09:13→20:22)
[2021-09-03] MEDS: HEPARIN SOD (PORCINE) 5000UNITS/ML 1ML VIAL/SYRINGE SC SCH ×2 (09:13→20:22)
[2021-09-03] MEDS: LIDOCAINE 5% (LIDODERM) PATCH TD SCH (09:14)
--- NOTE | 2021-09-03 12:03 | IPN ---
NEPHROLOGY PROGRESS NOTE DATE: 09/03/2021 SUBJECTIVE: Ms. Montanez is seen this morning on her bedside. She is currently in the gym doing her physical therapy. She was dialyzed yesterday and she tolerated her dialysis well. She denies any nausea or vomiting. Her chronic dyspnea is unchanged and she remains on 3 liters of oxygen. PHYSICAL EXAMINATION: Temperature 98 degrees Fahrenheit, heart rate 70 per minute and respiratory rate 18 per minute. Blood pressure 141/66 mmHg and oxygen saturation 96%. Head: Atraumatic. Neck: Supple and JVD difficult to be assessed. Hemodialysis catheter in the right internal jugular vein is intact. Heart: Sounds are regular. Lungs: With diminished breath sounds and a few basilar creps. Abdomen: Soft and nontender and bowel sounds are normal. Extremities: Without any cyanosis or clubbing. Minimal lower extremity edema is noted. Neurologically: She is at her baseline mentation. LABORATORY DATA: Today's labs show: WBC count 10.7, hemoglobin 9.7, hematocrit 33.3 and platelets 197. Sodium 137, potassium 4.4, CO2 28, BUN 44, creatinine 2.82, glucose 82, calcium 8.7. PROBLEMS/PLAN: 1. End-stage renal disease: Patient was dialyzed yesterday and next dialysis will be scheduled for tomorrow. Her regular dialysis days are Tuesdays, and Saturdays. No urgent need for dialysis today. 2. Congestive heart failure: Volume status reasonably well compensated and we will continue to manage it with dialysis. We will try to remove about 2.5 liters of fluid with dialysis tomorrow. 3. Anemia: Her anemia is stable and she will continue to receive a weekly dose of Aranesp. She is also receiving intravenous iron with her hemodialysis. 4. Hypertension: At present blood pressure is stable and no changes are being made today.
[2021-09-03 14:00] VITALS: BP 139/70
--- NOTE | 2021-09-03 16:21 | IPNPDOC ---
PM&R Progress Note DATE OF SERVICE: Aug 30, 2021 [employer] Progress Note Subjective: Patient seen in therapy stating she feels more congested and is not having a good day. REVIEW OF SYSTEMS: The following is a completed review of systems and has been reviewed. Review of systems otherwise unremarkable. PAIN: Patient self reports left hip pain EYES: No recent vision changes EARS, NOSE, & THROAT: No throat pain, or dysphagia, or rhinorrhea CARDIOVASCULAR: Denies chest pain or palpitations PULMONARY: Denies shortness of breath, +dyspnea on exertion (chronic) GASTROINTESTINAL: Denies constipation/diarrhea GENITOURINARY: oliguric MUSCULOSKELETAL: s/p left femur fracture NEUROLOGICAL:denies paresthesias HEMATOLOGICAL: +anemia SKIN: + left hip incision PSYCHIATRIC: Unremarkable All other review of systems found to be negative. PHYSICAL EXAMINATION: VITAL SIGNS: Please see below. GENERAL: Pleasant and cooperative. No acute distress. HEENT: PERRL. Extraocular movements intact. Clear conjunctiva CARDIOVASCULAR: Regular rate and rhythm. No murmurs, rubs, or gallops LUNGS: CTA ABDOMEN: Soft, nontender, nondistended. Positive bowel sounds. Normal active bowel sounds NEUROLOGICAL: Alert and oriented times three. Cranial nerves II through XII grossly intact. Sensation grossly intact in all 4limbs EXTREMITIES: 4+\5 strength bilateral upper extremities. 4\5 strength right lower extremity. 4/5 ankle DF/EHL (limited exam due to hip facture) SKIN: sacrum with scant areas of blanchable erythema , left hip incision c/d/i no periwound induration ASSESSMENT:76-year-old F with past medical history of afib s/p watchamn's procedure, PM, CHF ESRD on HD who presents status post PLAN: 1. REhab- PT/OT advance mobility and ADLs, strengthen/stretch/maintain ROM all 4 limbs 2.Ortho- left femur fracture s/p ORIF cont WBAT and pain management- f/u ortho on d/c -per ortho bharat to be d/c'd on 08/30 3. CArdiac- hx of CHF cont dialy weights, fluid restrict, on HD for fluid management - Afib s/p watchmans device and PM cont amiodarone -HLD cont statin -medicine consulted to assist in overall management 4. Resp- hx of COPD on home with recent Covid PNA in June- cont inhaler treatments, guaifenesin, s/p course of antibiotics on acute care side out of concern for PNA -patient with intermittent wheeze on exam, CXR showing overall improvement of recent opacities -patient afebrbile, procalcitonin is low, unlikely patient has ongoing infectious, f/u sputum cx and cont oral prednisone for now as patient may be developing COPD exacerbation although appears stable today, will Xopenex and consult pulmonology for further recs 5. REnal- ESRD on HD renal consulted -s/p permacath placement 6. heme- anemia of chronic disease- renal managing 7. GI ppx- sucralfate and protonix -gastroparesis? cont reglan with meals 8. DVT ppx- heparin 9. Endo-: hx of DM cont ISS 10. Pain- judicious use of norco as patient had opioid induced hypercarbic respiratory failure, cont tylenol and lidoderm patch 11. Psych- cont remeron 7.5 mg qhs for depression 12. Dispo: 09-05-21 to home with family Barriers to d/c and functional status: Patient is ambulate 3 ft with Mod assist but requiring kun steady for all [id number] due to fear of falling, patient has the ability to do more, but is self-limiting and likely depressed. Her daughter states she is able to take care of her mother at her current level of function, but would like her to try getting stronger and at least work on [id number].hopefully will not require lift device in order go get home, therapy to start working on slide board transfers as well. Daughter has been trained and is agreeable to take mom home at current level. She still needs extensive PT and OT intervention. Medically patient has ESRD with anemia, pain, monitoring incisions and daily weights, started antidepressant to help optimize participation in therapy, will need fu rther management by pulmonology as well. Allergies Coded Allergies: codeine (Verified Adverse Reaction, Intermediate, stabbing abd pain, 11/30/20) phenytoin (Verified Adverse Reaction, Intermediate, feels like being stabbed in abd, 11/30/20) gabapentin (Verified Adverse Reaction, Mild, VERTIGO, 11/30/20) oxycodone (Verified Adverse Reaction, Mild, SHAKINESS, 11/30/20) Vital Signs Vital Signs Date Time Temp Pulse Resp B/P (MAP) Pulse Ox O2 Delivery O2 Flow Rate FiO2 09/03/21 14:00 98.7 87 19 139/70 (93) 96 Nasal Cannula 3.0 Laboratory Data CBC/BMP Laboratory Tests 09/03/21 05:43 Labs 24H Laboratory Tests 2 09/02/21 16:23: Bedside Glucose (Misc Panel) 146H 09/02/21 20:19: Bedside Glucose (Misc Panel) 106 09/03/21 05:43: Immature Granulocyte % (Auto) 4.7H, Neutrophils (%) (Auto) 57.8, Lymphocytes (%) (Auto) 20.2L, Monocytes (%) (Auto) 13.9H, Eosinophils (%) (Auto) 2.6, Basophils (%) (Auto) 0.8, Neutrophils # (Auto) 6.2, Lymphocytes # (Auto) 2.2, Monocytes # (Auto) 1.5H, Eosinophils # (Auto) 0.3, Basophils # (Auto) 0.1, Nucleated Red Blood Cells % (auto) 0.0, Anion Gap 5L, Glomerular Filtration Rate 17.4L, Calcium Level 8.7L 09/03/21 06:26: Bedside Glucose (Misc Panel) 89 09/03/21 11:37: Bedside Glucose (Misc Panel) 210H Current Medications Current Medications Current Medications Medications (Trade) Dose Ordered Sig/Beatrice Route PRN Reason Start Time Stop Time Status Last Admin Dose Admin Acetaminophen (Tylenol Tab) 1,000 mg TID PO 08/22/21 21:00 09/03/21 09:12 Acetaminophen/ Hydrocodone Bitart ([place], Anexsia 5/325) 1 tab DAILY@0700 PO 08/23/21 07:00 09/03/21 06:56 Acetaminophen/ Hydrocodone Bitart ([place], Anexsia 5/325) 1 tab Q8HP PRN PO MODERATE PAIN (PS 5-7) 08/23/21 10:00 08/28/21 22:25 Acetaminophen/ Hydrocodone Bitart ([place], Anexsia 5/325) 2 tab Q8HP PRN PO SEVERE PAIN (PS 8-10) 09/02/21 22:10 09/02/21 22:50 Alteplase, Recombinant (Cathflo Activase) 4 mg ASDIRECTED PRN IV SEE LABEL COMMENTS 08/30/21 15:15 09/02/21 11:42 Amiodarone HCl (Pacerone, Cordarone) 200 mg DAILY PO 08/23/21 09:00 09/03/21 09:11 Atorvastatin Calcium (Lipitor) 20 mg DAILY PO 08/23/21 09:00 09/03/21 09:11 Budesonide/ Formoterol Fumarate (Symbicort 160/ 4.5mcg) 2 puff RBID INH 08/22/21 20:00 09/03/21 07:48 Calcium Carbonate (Tums) 500 mg Q6HP PRN PO HEARTBURN 08/22/21 14:40 Cefdinir (Omnicef) 300 mg HD PO 08/22/21 14:40 08/27/21 11:28 DC 08/25/21 15:20 Darbepoetin Ramy (Aranesp (Dialysis Use)) 100 mcg HD IV 08/23/21 10:00 08/28/21 13:10 Dextrose (Dextrose 50%) 25 ml ASDIRECTED PRN IV SEE LABEL COMMENTS 08/22/21 14:40 Glucagon (Glucagon) 1 mg ASDIRECTED PRN SC SEE LABEL COMMENTS 08/22/21 14:40 Glucose (Glucose) 16 GM ASDIRECTED PRN PO SEE LABEL COMMENTS 08/22/21 14:40 Guaifenesin (Robitussin Tab) 400 mg TID PO 08/22/21 16:00 09/03/21 09:12 Heparin Sodium (Heparin) Please refer to ... ASDIRECTED XX 08/22/21 19:30 08/23/21 19:29 DC Heparin Sodium (Heparin) Please refer to ... ASDIRECTED XX 08/25/21 07:50 08/26/21 07:49 DC Heparin Sodium (Heparin) Please refer to ... ASDIRECTED XX 08/27/21 18:10 08/28/21 18:09 DC Heparin Sodium (Heparin) Please refer to ... ASDIRECTED XX 08/28/21 21:00 08/29/21 20:59 DC Heparin Sodium (Heparin) Please refer to ... ASDIRECTED XX 08/29/21 21:10 08/30/21 21:09 DC Heparin Sodium (Heparin) Please refer to ... ASDIRECTED XX 08/31/21 09:50 09/01/21 09:49 DC Heparin Sodium (Heparin) Please refer to ... ASDIRECTED XX 09/02/21 07:00 09/03/21 06:59 DC Heparin Sodium (Heparin) dose as per volume indica... ASDIRECTED PRN IV SEE LABEL COMMENTS 08/22/21 19:30 08/23/21 19:29 DC Heparin Sodium (Heparin) dose as per volume indica... ASDIRECTED PRN IV SEE LABEL COMMENTS 08/25/21 07:50 08/26/21 07:49 DC Heparin Sodium (Heparin) dose as per volume indica... ASDIRECTED PRN IV SEE LABEL COMMENTS 08/27/21 18:10 08/28/21 18:09 DC Heparin Sodium (Heparin) dose as per volume indica... ASDIRECTED PRN IV SEE LABEL COMMENTS 08/28/21 21:00 08/29/21 20:59 DC Heparin Sodium (Heparin) dose as per volume indica... ASDIRECTED PRN IV SEE LABEL COMMENTS 08/29/21 21:10 08/30/21 21:09 DC Heparin Sodium (Heparin) dose as per volume indica... ASDIRECTED PRN IV SEE LABEL COMMENTS 08/31/21 09:50 09/01/21 09:49 DC Heparin Sodium (Heparin) dose as per volume indica... ASDIRECTED PRN IV SEE LABEL COMMENTS 09/02/21 07:00 09/03/21 06:59 DC Heparin Sodium (Porcine) (Heparin) 5,000 units Q12H SC 08/22/21 21:00 09/03/21 09:13 Home Med (Home Med List Complete!) ASDIRECTED XX 08/24/21 16:15 08/24/21 16:16 DC Insulin Human Lispro (HumaLOG INSULIN) SEE PROTOCOL TABLE AC SC 08/22/21 17:30 09/03/21 12:17 Insulin Human Lispro (HumaLOG INSULIN) SEE PROTOCOL TABLE QHS SC 08/22/21 21:00 Ipratropium [place] (Atrovent Hfa) 2 puff RTID INH 08/22/21 20:00 09/02/21 14:52 Iron (Venofer) 100 mg HD IV 08/23/21 10:00 08/25/21 10:04 Levalbuterol HCl (Xopenex Hfa) 2 puff RQ6H INH 08/30/21 08:00 09/03/21 13:27 Levalbuterol HCl (Xopenex Hfa) 2 puff RQID INH 08/22/21 20:00 08/30/21 09:32 DC 08/29/21 12:00 Lidocaine (Lidoderm Patch) 2 patch DAILY TD 08/23/21 09:00 09/03/21 09:14 Lidocaine (Lidoderm Patch) 2 patch DAILY TD 08/27/21 11:30 UNV Metoclopramide HCl (Reglan) 5 mg ACHS PO 08/22/21 17:30 09/03/21 12:17 Mirtazapine (Remeron) 7.5 mg QHS PO 08/28/21 21:00 09/02/21 21:13 Miscellaneous (Unresolved Clarification Entry) SEE LABEL COMMENTS DAILY XX 09/02/21 09:00 09/02/21 13:51 DC Non-Formulary Medication ( See Comment Field Below ) REMOVE LIDODERM PATCH DAILY@21 XX 08/22/21 21:00 09/02/21 21:18 Non-Formulary Medication ( See Comment Field Below ) REMOVE LIDODERM PATCH DAILY@21 XX 08/27/21 21:00 UNV Ondansetron HCl (Zofran Odt) 4 mg Q6HP PRN PO NAUSEA OR VOMITING 08/22/21 14:40 Pantoprazole Sodium (Protonix) 40 mg BID PO 08/22/21 21:00 09/03/21 09:11 Polyethylene Glycol (Miralax) 1 pkt DAILY PO 08/23/21 09:00 Prednisone (Deltasone) 10 mg DAILY PO 08/27/21 09:00 09/03/21 09:11 Senna/Docusate Sodium (Senokot S) 1 tab BID PO 08/22/21 21:00 09/02/21 21:12 Sodium Chloride (Nacl 0.9%) 200 ml ASDIRECTED PRN IV SEE LABEL COMMENTS 08/22/21 19:30 08/23/21 19:29 DC Sodium Chloride (Nacl 0.9%) 200 ml ASDIRECTED PRN IV SEE LABEL COMMENTS 08/25/21 07:50 08/26/21 07:49 DC Sodium Chloride (Nacl 0.9%) 200 ml ASDIRECTED PRN IV SEE LABEL COMMENTS 08/27/21 18:10 08/28/21 18:09 DC Sodium Chloride (Nacl 0.9%) 200 ml ASDIRECTED PRN IV SEE LABEL COMMENTS 08/28/21 21:00 08/29/21 20:59 DC Sodium Chloride (Nacl 0.9%) 200 ml ASDIRECTED PRN IV SEE LABEL COMMENTS 08/29/21 21:10 08/30/21 21:09 DC Sodium Chloride (Nacl 0.9%) 200 ml ASDIRECTED PRN IV SEE LABEL COMMENTS 08/31/21 09:50 09/01/21 09:49 DC Sodium Chloride (Nacl 0.9%) 200 ml ASDIRECTED PRN IV SEE LABEL COMMENTS 09/02/21 07:00 09/03/21 06:59 DC Sucralfate (Carafate) 1 gm ACHS PO 08/22/21 17:30 09/03/21 12:17 Tiotropium [place] (Spiriva Handihaler) 1 inhalation DAILY@08 INH 08/31/21 08:00 09/03/21 07:48 Tramadol HCl (Ultram) 25 mg Q4HP PRN PO MODERATE PAIN (PS 5-7) 08/22/21 14:40 08/23/21 10:01 DC 08/23/21 08:47 DIXON CHENG MD Sep 03, 2021 16:21
--- NOTE | 2021-09-03 16:21 | IPNPDOC ---
PM&R Progress Note DATE OF SERVICE: Sep 03, 2021 [employer] Progress Note Subjective: Patient seen in her room requesting a high dose of norco. REVIEW OF SYSTEMS: The following is a completed review of systems and has been reviewed. Review of systems otherwise unremarkable. PAIN: Patient self reports left hip pain EYES: No recent vision changes EARS, NOSE, & THROAT: No throat pain, or dysphagia, or rhinorrhea CARDIOVASCULAR: Denies chest pain or palpitations PULMONARY: Denies shortness of breath, +dyspnea on exertion (chronic) GASTROINTESTINAL: Denies constipation/diarrhea GENITOURINARY: oliguric MUSCULOSKELETAL: s/p left femur fracture NEUROLOGICAL:denies paresthesias HEMATOLOGICAL: +anemia SKIN: + left hip incision PSYCHIATRIC: Unremarkable All other review of systems found to be negative. PHYSICAL EXAMINATION: VITAL SIGNS: Please see below. GENERAL: Pleasant and cooperative. No acute distress. HEENT: PERRL. Extraocular movements intact. Clear conjunctiva CARDIOVASCULAR: Regular rate and rhythm. No murmurs, rubs, or gallops LUNGS: CTA ABDOMEN: Soft, nontender, nondistended. Positive bowel sounds. Normal active bowel sounds NEUROLOGICAL: Alert and oriented times three. Cranial nerves II through XII grossly intact. Sensation grossly intact in all 4limbs EXTREMITIES: 4+\5 strength bilateral upper extremities. 4\5 strength right lower extremity. 4/5 ankle DF/EHL (limited exam due to hip facture) SKIN: sacrum with scant areas of blanchable erythema , left hip incision c/d/i no periwound induration ASSESSMENT:76-year-old F with past medical history of afib s/p watchamn's procedure, PM, CHF ESRD on HD who presents status post PLAN: 1. REhab- PT/OT advance mobility and ADLs, strengthen/stretch/maintain ROM all 4 limbs 2.Ortho- left femur fracture s/p ORIF cont WBAT and pain management- f/u ortho on d/c -per ortho bharat to be d/c'd on 08/30 3. CArdiac- hx of CHF cont dialy weights, fluid restrict, on HD for fluid management - Afib s/p watchmans device and PM cont amiodarone -HLD cont statin -medicine consulted to assist in overall management 4. Resp- hx of COPD on home with recent Covid PNA in June- cont inhaler treatments, guaifenesin, s/p course of antibiotics on acute care side out of concern for PNA -patient with intermittent wheeze on exam, CXR showing overall improvement of recent opacities -patient afebrile, procalcitonin is low, unlikely patient has ongoing infectious, cont oral prednisone, Xopenex, Sybicort, and SPiriva, pulm recs aprpecaited, no need for further antibiotics 5. REnal- ESRD on HD renal consulted -s/p permacath placement 6. heme- anemia of chronic disease- renal managing 7. GI ppx- sucralfate and protonix -gastroparesis? cont reglan with meals 8. DVT ppx- heparin 9. Endo-: hx of DM cont ISS 10. Pain- judicious use of norco as patient had opioid induced hypercarbic respiratory failure, cont tylenol and lidoderm patch 11. Psych- cont remeron 7.5 mg qhs for depression 12. Dispo: 09-05-21 to home with family Barriers to d/c and functional status: Patient is ambulate further, up to 6 feet, able to do sit-to stands at contact guard level, making small but steady gains in therapy. Daughter has been trained and is agreeable to take mom home at current level. She still needs extensive PT and OT intervention. Medically patient has ESRD with anemia, pain, monitoring incisions and daily weights, started antidepressant to help optimize participation in therapy, she has been evlauted by pulmonology and will be closely followed as outpatient with renal team, safe for discharge to home 09-05-21 Allergies Coded Allergies: codeine (Verified Adverse Reaction, Intermediate, stabbing abd pain, 11/30/20) phenytoin (Verified Adverse Reaction, Intermediate, feels like being stabb ed in abd, 11/30/20) gabapentin (Verified Adverse Reaction, Mild, VERTIGO, 11/30/20) oxycodone (Verified Adverse Reaction, Mild, SHAKINESS, 11/30/20) Vital Signs Vital Signs Date Time Temp Pulse Resp B/P (MAP) Pulse Ox O2 Delivery O2 Flow Rate FiO2 09/03/21 14:00 98.7 87 19 139/70 (93) 96 Nasal Cannula 3.0 Laboratory Data CBC/BMP Laboratory Tests 09/03/21 05:43 Labs 24H Laboratory Tests 2 09/02/21 16:23: Bedside Glucose (Misc Panel) 146H 09/02/21 20:19: Bedside Glucose (Misc Panel) 106 09/03/21 05:43: Immature Granulocyte % (Auto) 4.7H, Neutrophils (%) (Auto) 57.8, Lymphocytes (%) (Auto) 20.2L, Monocytes (%) (Auto) 13.9H, Eosinophils (%) (Auto) 2.6, Basophils (%) (Auto) 0.8, Neutrophils # (Auto) 6.2, Lymphocytes # (Auto) 2.2, Monocytes # (Auto) 1.5H, Eosinophils # (Auto) 0.3, Basophils # (Auto) 0.1, Nucleated Red Blood Cells % (auto) 0.0, Anion Gap 5L, Glomerular Filtration Rate 17.4L, Calcium Level 8.7L 09/03/21 06:26: Bedside Glucose (Misc Panel) 89 09/03/21 11:37: Bedside Glucose (Misc Panel) 210H Current Medications Current Medications Current Medications Medications (Trade) Dose Ordered Sig/Betarice Route PRN Reason Start Time Stop Time Status Last Admin Dose Admin Acetaminophen (Tylenol Tab) 1,000 mg TID PO 08/22/21 21:00 09/03/21 09:12 Acetaminophen/ Hydrocodone Bitart ([place], Anexsia 5/325) 1 tab DAILY@0700 PO 08/23/21 07:00 09/03/21 06:56 Acetaminophen/ Hydrocodone Bitart ([place], Anexsia 5/325) 1 tab Q8HP PRN PO MODERATE PAIN (PS 5-7) 08/23/21 10:00 08/28/21 22:25 Acetaminophen/ Hydrocodone Bitart ([place], Anexsia 5/325) 2 tab Q8HP PRN PO SEVERE PAIN (PS 8-10) 09/02/21 22:10 09/02/21 22:50 Alteplase, Recombinant (Cathflo Activase) 4 mg ASDIRECTED PRN IV SEE LABEL COMMENTS 08/30/21 15:15 09/02/21 11:42 Amiodarone HCl (Pacerone, Cordarone) 200 mg DAILY PO 08/23/21 09:00 09/03/21 09:11 Atorvastatin Calcium (Lipitor) 20 mg DAILY PO 08/23/21 09:00 09/03/21 09:11 Budesonide/ Formoterol Fumarate (Symbicort 160/ 4.5mcg) 2 puff RBID INH 08/22/21 20:00 09/03/21 07:48 Calcium Carbonate (Tums) 500 mg Q6HP PRN PO HEARTBURN 08/22/21 14:40 Cefdinir (Omnicef) 300 mg HD PO 08/22/21 14:40 08/27/21 11:28 DC 08/25/21 15:20 Darbepoetin Ramy (Aranesp (Dialysis Use)) 100 mcg HD IV 08/23/21 10:00 08/28/21 13:10 Dextrose (Dextrose 50%) 25 ml ASDIRECTED PRN IV SEE LABEL COMMENTS 08/22/21 14:40 Glucagon (Glucagon) 1 mg ASDIRECTED PRN SC SEE LABEL COMMENTS 08/22/21 14:40 Glucose (Glucose) 16 GM ASDIRECTED PRN PO SEE LABEL COMMENTS 08/22/21 14:40 Guaifenesin (Robitussin Tab) 400 mg TID PO 08/22/21 16:00 09/03/21 09:12 Heparin Sodium (Heparin) Please refer to ... ASDIRECTED XX 08/22/21 19:30 08/23/21 19:29 DC Heparin Sodium (Heparin) Please refer to ... ASDIRECTED XX 08/25/21 07:50 08/26/21 07:49 DC Heparin Sodium (Heparin) Please refer to ... ASDIRECTED XX 08/27/21 18:10 08/28/21 18:09 DC Heparin Sodium (Heparin) Please refer to ... ASDIRECTED XX 08/28/21 21:00 08/29/21 20:59 DC Heparin Sodium (Heparin) Please refer to ... ASDIRECTED XX 08/29/21 21:10 08/30/21 21:09 DC Heparin Sodium (Heparin) Please refer to ... ASDIRECTED XX 08/31/21 09:50 09/01/21 09:49 DC Heparin Sodium (Heparin) Please refer to ... ASDIRECTED XX 09/02/21 07:00 09/03/21 06:59 DC Heparin Sodium (Heparin) dose as per volume indica... ASDIRECTED PRN IV SEE LABEL COMMENTS 08/22/21 19:30 08/23/21 19:29 DC Heparin Sodium (Heparin) dose as per volume indica... ASDIRECTED PRN IV SEE LABEL COMMENTS 08/25/21 07:50 08/26/21 07:49 DC Heparin Sodium (Heparin) dose as per volume indica... ASDIRECTED PRN IV SEE LABEL COMMENTS 08/27/21 18:10 08/28/21 18:09 DC Heparin Sodium (Heparin) dose as per volume indica... ASDIRECTED PRN IV SEE LABEL COMMENTS 08/28/21 21:00 08/29/21 20:59 DC Heparin Sodium (Heparin) dose as per volume indica... ASDIRECTED PRN IV SEE LABEL COMMENTS 08/29/21 21:10 08/30/21 21:09 DC Heparin Sodium (Heparin) dose as per volume indica... ASDIRECTED PRN IV SEE LABEL COMMENTS 08/31/21 09:50 09/01/21 09:49 DC Heparin Sodium (Heparin) dose as per volume indica... ASDIRECTED PRN IV SEE LABEL COMMENTS 09/02/21 07:00 09/03/21 06:59 DC Heparin Sodium (Porcine) (Heparin) 5,000 units Q12H SC 08/22/21 21:00 09/03/21 09:13 Home Med (Home Med List Complete!) ASDIRECTED XX 08/24/21 16:15 08/24/21 16:16 DC Insulin Human Lispro (HumaLOG INSULIN) SEE PROTOCOL TABLE AC SC 08/22/21 17:30 09/03/21 12:17 Insulin Human Lispro (HumaLOG INSULIN) SEE PROTOCOL TABLE QHS SC 08/22/21 21:00 Ipratropium [place] (Atrovent Hfa) 2 puff RTID INH 08/22/21 20:00 09/02/21 14:52 Iron (Venofer) 100 mg HD IV 08/23/21 10:00 08/25/21 10:04 Levalbuterol HCl (Xopenex Hfa) 2 puff RQ6H INH 08/30/21 08:00 09/03/21 13:27 Levalbuterol HCl (Xopenex Hfa) 2 puff RQID INH 08/22/21 20:00 08/30/21 09:32 DC 08/29/21 12:00 Lidocaine (Lidoderm Patch) 2 patch DAILY TD 08/23/21 09:00 09/03/21 09:14 Lidocaine (Lidoderm Patch) 2 patch DAILY TD 08/27/21 11:30 UNV Metoclopramide HCl (Reglan) 5 mg ACHS PO 08/22/21 17:30 09/03/21 12:17 Mirtazapine (Remeron) 7.5 mg QHS PO 08/28/21 21:00 09/02/21 21:13 Miscellaneous (Unresolved Clarification Entry) SEE LABEL COMMENTS DAILY XX 09/02/21 09:00 09/02/21 13:51 DC Non-Formulary Medication ( See Comment Field Below ) REMOVE LIDODERM PATCH DAILY@21 XX 08/22/21 21:00 09/02/21 21:18 Non-Formulary Medication ( See Comment Field Below ) REMOVE LIDODERM PATCH DAILY@21 XX 08/27/21 21:00 UNV Ondansetron HCl (Zofran Odt) 4 mg Q6HP PRN PO NAUSEA OR VOMITING 08/22/21 14:40 Pantoprazole Sodium (Protonix) 40 mg BID PO 08/22/21 21:00 09/03/21 09:11 Polyethylene Glycol (Miralax) 1 pkt DAILY PO 08/23/21 09:00 Prednisone (Deltasone) 10 mg DAILY PO 08/27/21 09:00 09/03/21 09:11 Senna/Docusate Sodium (Senokot S) 1 tab BID PO 08/22/21 21:00 09/02/21 21:12 Sodium Chloride (Nacl 0.9%) 200 ml ASDIRECTED PRN IV SEE LABEL COMMENTS 08/22/21 19:30 08/23/21 19:29 DC Sodium Chloride (Nacl 0.9%) 200 ml ASDIRECTED PRN IV SEE LABEL COMMENTS 08/25/21 07:50 08/26/21 07:49 DC Sodium Chloride (Nacl 0.9%) 200 ml ASDIRECTED PRN IV SEE LABEL COMMENTS 08/27/21 18:10 08/28/21 18:09 DC Sodium Chloride (Nacl 0.9%) 200 ml ASDIRECTED PRN IV SEE LABEL COMMENTS 08/28/21 21:00 08/29/21 20:59 DC Sodium Chloride (Nacl 0.9%) 200 ml ASDIRECTED PRN IV SEE LABEL COMMENTS 08/29/21 21:10 08/30/21 21:09 DC Sodium Chloride (Nacl 0.9%) 200 ml ASDIRECTED PRN IV SEE LABEL COMMENTS 08/31/21 09:50 09/01/21 09:49 DC Sodium Chloride (Nacl 0.9%) 200 ml ASDIRECTED PRN IV SEE LABEL COMMENTS 09/02/21 07:00 09/03/21 06:59 DC Sucralfate (Carafate) 1 gm ACHS PO 08/22/21 17:30 09/03/21 12:17 Tiotropium [place] (Spiriva Handihaler) 1 inhalation DAILY@08 INH 08/31/21 08:00 09/03/21 07:48 Tramadol HCl (Ultram) 25 mg Q4HP PRN PO MODERATE PAIN (PS 5-7) 08/22/21 14:40 08/23/21 10:01 DC 08/23/21 08:47 DIXON CHENG MD Sep 03, 2021 16:21
[2021-09-03] MEDS ORDERED: NORCO, ANEXSIA 5/325MG TABLET (HYDROcodone/ACETAMINOPHEN) PO PRN (16:54)
[2021-09-03 20:00] VITALS: BP 122/60
[2021-09-03] MEDS: MIRTAZAPINE 7.5MG PER 1/2 TABLET PO SCH (20:21)
[2021-09-03] MEDS: **NOTE PATIENT COMMENT** MISC XX SCH (20:22)
[2021-09-04] MEDS: LEVALBUTEROL HFA 45MCG/ACT 15 GM INHALER INH SCH ×5 (01:06→20:00)
[2021-09-04 05:41] VITALS: BP 132/67
[2021-09-04] MEDS: NORCO, ANEXSIA 5/325MG TABLET (HYDROcodone/ACETAMINOPHEN) PO SCH (06:04)
[2021-09-04] MEDS: HumaLOG INSULIN (NovoLOG) PER UNIT SC SCH ×4 (07:30→20:46)
[2021-09-04] MEDS ORDERED: SODIUM CHLORIDE 0.9% 1000ML IV PRN (07:55)
[2021-09-04] MEDS ORDERED: DARBEPOETIN 200MCG/0.4ML *DIALYSIS* SYRINGE (J0882 PER 1MCG) IV SCH (07:55)
[2021-09-04] MEDS: IPRATROPIUM HFA INHALER 12.9 GRAMS (ATROVENT HFA) INH SCH ×3 (08:00→20:00)
[2021-09-04] MEDS: TIOTROPIUM INHALER/CAPSULE (SPIRIVA) INH SCH ×2 (08:00→09:58)
[2021-09-04] MEDS: SYMBICORT 160/4.5MCG INHALER 6GM INH SCH ×3 (08:00→20:00)
[2021-09-04] MEDS: MIRALAX *UNIT DOSE* 17GM PACKET PO SCH ×2 (09:00→10:13)
[2021-09-04] MEDS: guaiFENesin 200 MG TAB PO SCH ×3 (10:13→20:44)
[2021-09-04] MEDS: PANTOPRAZOLE 40MG TAB (PROTONIX) PO SCH ×2 (10:13→20:44)
[2021-09-04] MEDS: SENOKOT S TAB PO SCH ×2 (10:13→20:45)
[2021-09-04] MEDS: AMIODARONE 200 MG TAB (PACERONE) PO SCH (10:13)
[2021-09-04] MEDS: predniSONE 10 MG TAB PO SCH (10:13)
[2021-09-04] MEDS: ATORVASTATIN 20 MG TAB PO SCH (10:13)
[2021-09-04] MEDS: HEPARIN SOD (PORCINE) 5000UNITS/ML 1ML VIAL/SYRINGE SC SCH ×2 (10:14→20:45)
[2021-09-04] MEDS: ACETAMINOPHEN 500 MG TAB PO SCH ×3 (10:18→20:45)
[2021-09-04] MEDS: REMEDY PHYTOPLEX Z-GUARD PASTE 113GM TUBE (FROM STOREROOM PRODUCT) TOP SCH ×3 (10:20→20:46)
[2021-09-04] MEDS: SUCRALFATE 1 GM TAB PO SCH ×4 (10:21→20:45)
[2021-09-04] MEDS: METOCLOPRAMIDE 5 MG TAB PO SCH ×4 (10:22→20:45)
[2021-09-04] MEDS: DICLOFENAC EPOLAMINE 1.3 % PATCH TOP SCH ×2 (10:23→20:46)
[2021-09-04] MEDS ORDERED: PRED10TA2 PO (11:44)
[2021-09-04] MEDS ORDERED: ATOR1TAB21 PO (11:44)
[2021-09-04] MEDS ORDERED: FERR1TAB8 PO (11:44)
[2021-09-04] MEDS ORDERED: SYMB16INH INH (11:44)
[2021-09-04] MEDS ORDERED: TIOT18INH INH (11:44)
[2021-09-04] MEDS ORDERED: METO5TAB2 PO (11:44)
[2021-09-04] MEDS ORDERED: BREO1INH3 INH (11:44)
[2021-09-04] MEDS ORDERED: LEVAINH INH (11:44)
[2021-09-04] MEDS ORDERED: PANT40TA29 PO (11:44)
[2021-09-04] MEDS ORDERED: AMIO200T3 PO (11:44)
[2021-09-04] MEDS ORDERED: SUCR1TA PO (11:44)
[2021-09-04] MEDS ORDERED: HYDR-3715 PO (11:44)
[2021-09-04] MEDS ORDERED: IPRAINH INH (11:44)
[2021-09-04] MEDS ORDERED: VENTAER INH (11:44)
[2021-09-04] MEDS ORDERED: CALC1CAP31 PO (11:44)
[2021-09-04] MEDS ORDERED: MIRT-62 PO (11:44)
[2021-09-04] MEDS ORDERED: FOLI1TAB11 PO (11:44)
--- NOTE | 2021-09-04 12:16 | IPNPDOC ---
PM&R Progress Note DATE OF SERVICE: Sep 04, 2021 [employer] Progress Note Subjective: Patient reporting her breathing is better overall and she feels ready to go home tomorrow. REVIEW OF SYSTEMS: The following is a completed review of systems and has been reviewed. Review of systems otherwise unremarkable. PAIN: Patient self reports left hip pain EYES: No recent vision changes EARS, NOSE, & THROAT: No throat pain, or dysphagia, or rhinorrhea CARDIOVASCULAR: Denies chest pain or palpitations PULMONARY: Denies shortness of breath, +dyspnea on exertion (chronic) GASTROINTESTINAL: Denies constipation/diarrhea GENITOURINARY: oliguric MUSCULOSKELETAL: s/p left femur fracture NEUROLOGICAL:denies paresthesias HEMATOLOGICAL: +anemia SKIN: + left hip incision PSYCHIATRIC: Unremarkable All other review of systems found to be negative. PHYSICAL EXAMINATION: VITAL SIGNS: Please see below. GENERAL: Pleasant and cooperative. No acute distress. HEENT: PERRL. Extraocular movements intact. Clear conjunctiva CARDIOVASCULAR: Regular rate and rhythm. No murmurs, rubs, or gallops LUNGS: CTA ABDOMEN: Soft, nontender, nondistended. Positive bowel sounds. Normal active bowel sounds NEUROLOGICAL: Alert and oriented times three. Cranial nerves II through XII grossly intact. Sensation grossly intact in all 4limbs EXTREMITIES: 4+\5 strength bilateral upper extremities. 4\5 strength right lower extremity. 4/5 ankle DF/EHL (limited exam due to hip facture) SKIN: sacrum with scant areas of blanchable erythema , left hip incision c/d/i no periwound induration ASSESSMENT:76-year-old F with past medical history of afib s/p watchamn's procedure, PM, CHF ESRD on HD who presents status post PLAN: 1. REhab- PT/OT advance mobility and ADLs, strengthen/stretch/maintain ROM all 4 limbs 2.Ortho- left femur fracture s/p ORIF cont WBAT and pain management- f/u ortho on d/c -per ortho bharat to be d/c'd on 08/30 3. CArdiac- hx of CHF cont dialy weights, fluid restrict, on HD for fluid management - Afib s/p watchmans device and PM cont amiodarone -HLD cont statin -medicine consulted to assist in overall management 4. Resp- hx of COPD on home with recent Covid PNA in June- cont inhaler treatments, guaifenesin, s/p course of antibiotics on acute care side out of concern for PNA -patient with intermittent wheeze on exam, CXR showing overall improvement of recent opacities -patient afebrile, procalcitonin is low, unlikely patient has ongoing infectious, cont oral prednisone, Xopenex, Sybicort, and SPiriva, pulm recs aprpecaited, no need for further antibiotics 5. REnal- ESRD on HD renal consulted -s/p permacath placement 6. heme- anemia of chronic disease- renal managing 7. GI ppx- sucralfate and protonix -gastroparesis? cont reglan with meals 8. DVT ppx- heparin 9. Endo-: hx of DM cont ISS 10. Pain- judicious use of norco as patient had opioid induced hypercarbic respiratory failure, cont tylenol and lidoderm patch 11. Psych- cont remeron 7.5 mg qhs for depression 12. Dispo: 09-05-21 to home with family Barriers to d/c and functional status: Patient is ambulate further, up to 6 feet, able to do sit-to stands at contact guard level, making small but steady gains in therapy. Daughter has been trained and is agreeable to take mom home at current level. She still needs extensive PT and OT intervention. Medically patient has ESRD with anemia, pain, monitoring incisions and daily weights, started antidepressant to help optimize participation in therapy, she has been evaluated by pulmonology and will be closely followed as outpatient with renal team, safe for discharge to home 09-05-21. Patient has family member in her home with Covid who is able to quarantine themselves from patient. Patient's caregiver, her daughter does not have Covid and feels comfortable taking mom home tomorrow (discussed over phone) Allergies Coded Allergies: codeine (Verified Adverse Reaction, Intermediate, stabbing abd pain, 11/30/20) phenytoin (Verified Adverse Reaction, Intermediate, feels like being stabbed in abd, 11/30/20) gabapentin (Verified Adverse Reaction, Mild, VERTIGO, 11/30/20) oxycodone (Verified Adverse Reaction, Mild, SHAKINESS, 11/30/20) Vital Signs Vital Signs Date Time Temp Pulse Resp B/P (MAP) Pulse Ox O2 Delivery O2 Flow Rate FiO2 09/04/21 06:44 18 Nasal Cannula 3.0 09/04/21 05:41 97.8 90 132/67 (88) 96 Laboratory Data Labs 24H Laboratory Tests 2 09/03/21 16:47: Bedside Glucose (Misc Panel) 150H 09/03/21 19:38: Bedside Glucose (Misc Panel) 132H 09/04/21 05:19: Bedside Glucose (Misc Panel) 83 09/04/21 11:18: Bedside Glucose (Misc Panel) 167H Current Medications Current Medications Current Medications Medications (Trade) Dose Ordered Sig/Beatrice Route PRN Reason Start Time Stop Time Status Last Admin Dose Admin Acetaminophen (Tylenol Tab) 1,000 mg TID PO 08/22/21 21:00 09/04/21 10:18 Acetaminophen/ Hydrocodone Bitart (Repton, Anexsia 5/325) 1 tab DAILY@0700 PO 08/23/21 07:00 09/04/21 06:04 Acetaminophen/ Hydrocodone Bitart (Repton, Anexsia 5/325) 1 tab Q8HP PRN PO MODERATE PAIN (PS 5-7) 08/23/21 10:00 09/03/21 16:55 DC 08/28/21 22:25 Acetaminophen/ Hydrocodone Bitart ([place], Anexsia 5/325) 1.5 tab Q8HP PRN PO MODERATE PAIN (PS 5-7) 09/03/21 16:54 Acetaminophen/ Hydrocodone Bitart (Repton, Anexsia 5/325) 2 tab Q8HP PRN PO SEVERE PAIN (PS 8-10) 09/02/21 22:10 09/02/21 22:50 Alteplase, Recombinant (Cathflo Activase) 4 mg ASDIRECTED PRN IV SEE LABEL COMMENTS 08/30/21 15:15 09/02/21 11:42 Amiodarone HCl (Pacerone, Cordarone) 200 mg DAILY PO 08/23/21 09:00 09/04/21 10:13 Atorvastatin Calcium (Lipitor) 20 mg DAILY PO 08/23/21 09:00 09/04/21 10:13 Budesonide/ Formoterol Fumarate (Symbicort 160/ 4.5mcg) 2 puff RBID INH 08/22/21 20:00 09/04/21 09:58 Calcium Carbonate (Tums) 500 mg Q6HP PRN PO HEARTBURN 08/22/21 14:40 Cefdinir (Omnicef) 300 mg HD PO 08/22/21 14:40 08/27/21 11:28 DC 08/25/21 15:20 Darbepoetin Ramy (Aranesp (Dialysis Use)) 100 mcg HD IV 08/23/21 10:00 09/04/21 07:59 DC 08/28/21 13:10 Darbepoetin Ramy (Aranesp (Dialysis Use)) 200 mcg HD IV 09/04/21 07:55 Dextrose (Dextrose 50%) 25 ml ASDIRECTED PRN IV SEE LABEL COMMENTS 08/22/21 14:40 Diclofenac Epolamine (Flector 1.3%) 1 patch Q12H TOP 09/04/21 09:00 09/04/21 10:23 Glucagon (Glucagon) 1 mg ASDIRECTED PRN SC SEE LABEL COMMENTS 08/22/21 14:40 Glucose (Glucose) 16 GM ASDIRECTED PRN PO SEE LABEL COMMENTS 08/22/21 14:40 Guaifenesin (Robitussin Tab) 400 mg TID PO 08/22/21 16:00 09/04/21 10:13 Heparin Sodium (Heparin) Please refer to ... ASDIRECTED XX 08/22/21 19:30 08/23/21 19:29 DC Heparin Sodium (Heparin) Please refer to ... ASDIRECTED XX 08/25/21 07:50 08/26/21 07:49 DC Heparin Sodium (Heparin) Please refer to ... ASDIRECTED XX 08/27/21 18:10 08/28/21 18:09 DC Heparin Sodium (Heparin) Please refer to ... ASDIRECTED XX 08/28/21 21:00 08/29/21 20:59 DC Heparin Sodium (Heparin) Please refer to ... ASDIRECTED XX 08/29/21 21:10 08/30/21 21:09 DC Heparin Sodium (Heparin) Please refer to ... ASDIRECTED XX 08/31/21 09:50 09/01/21 09:49 DC Heparin Sodium (Heparin) Please refer to ... ASDIRECTED XX 09/02/21 07:00 09/03/21 06:59 DC Heparin Sodium (Heparin) Please refer to ... ASDIRECTED XX 09/04/21 07:55 09/05/21 07:54 Heparin Sodium (Heparin) dose as per volume indica... ASDIRECTED PRN IV SEE LABEL COMMENTS 08/22/21 19:30 08/23/21 19:29 DC Heparin Sodium (Heparin) dose as per volume indica... ASDIRECTED PRN IV SEE LABEL COMMENTS 08/25/21 07:50 08/26/21 07:49 DC Heparin Sodium (Heparin) dose as per volume indica... ASDIRECTED PRN IV SEE LABEL COMMENTS 08/27/21 18:10 08/28/21 18:09 DC Heparin Sodium (Heparin) dose as per volume indica... ASDIRECTED PRN IV SEE LABEL COMMENTS 08/28/21 21:00 08/29/21 20:59 DC Heparin Sodium (Heparin) dose as per volume indica... ASDIRECTED PRN IV SEE LABEL COMMENTS 08/29/21 21:10 08/30/21 21:09 DC Heparin Sodium (Heparin) dose as per volume indica... ASDIRECTED PRN IV SEE LABEL COMMENTS 08/31/21 09:50 09/01/21 09:49 DC Heparin Sodium (Heparin) dose as per volume indica... ASDIRECTED PRN IV SEE LABEL COMMENTS 09/02/21 07:00 09/03/21 06:59 DC Heparin Sodium (Heparin) dose as per volume indica... ASDIRECTED PRN IV SEE LABEL COMMENTS 09/04/21 07:55 09/05/21 07:54 Heparin Sodium (Porcine) (Heparin) 5,000 units Q12H SC 08/22/21 21:00 09/04/21 10:14 Home Med (Home Med List Complete!) ASDIRECTED XX 08/24/21 16:15 08/24/21 16:16 DC Insulin Human Lispro (HumaLOG INSULIN) SEE PROTOCOL TABLE AC SC 08/22/21 17:30 09/03/21 17:38 Insulin Human Lispro (HumaLOG INSULIN) SEE PROTOCOL TABLE QHS SC 08/22/21 21:00 Ipratropium [place] (Atrovent Hfa) 2 puff RTID INH 08/22/21 20:00 09/02/21 14:52 Iron (Venofer) 100 mg HD IV 08/23/21 10:00 08/25/21 10:04 Levalbuterol HCl (Xopenex Hfa) 2 puff RQ6H INH 08/30/21 08:00 09/04/21 09:58 Levalbuterol HCl (Xopenex Hfa) 2 puff RQID INH 08/22/21 20:00 08/30/21 09:32 DC 08/29/21 12:00 Lidocaine (Lidoderm Patch) 2 patch DAILY TD 08/23/21 09:00 09/04/21 09:49 DC 09/03/21 09:14 Lidocaine (Lidoderm Patch) 2 patch DAILY TD 08/27/21 11:30 UNV Metoclopramide HCl (Reglan) 5 mg ACHS PO 08/22/21 17:30 09/04/21 10:22 Mirtazapine (Remeron) 7.5 mg QHS PO 08/28/21 21:00 09/03/21 20:21 Miscellaneous (Unresolved Clarification Entry) SEE LABEL COMMENTS DAILY XX 09/02/21 09:00 09/02/21 13:51 DC Non-Formulary Medication ( See Comment Field Below ) REMOVE LIDODERM PATCH DAILY@21 XX 08/22/21 21:00 09/03/21 20:22 Non-Formulary Medication ( See Comment Field Below ) REMOVE LIDODERM PATCH DAILY@21 XX 08/27/21 21:00 UNV Ondansetron HCl (Zofran Odt) 4 mg Q6HP PRN PO NAUSEA OR VOMITING 08/22/21 14:40 Pantoprazole Sodium (Protonix) 40 mg BID PO 08/22/21 21:00 09/04/21 10:13 Polyethylene Glycol (Miralax) 1 pkt DAILY PO 08/23/21 09:00 Prednisone (Deltasone) 10 mg DAILY PO 08/27/21 09:00 09/04/21 10:13 Senna/Docusate Sodium (Senokot S) 1 tab BID PO 08/22/21 21:00 09/04/21 10:13 Sodium Chloride (Nacl 0.9%) 200 ml ASDIRECTED PRN IV SEE LABEL COMMENTS 08/22/21 19:30 08/23/21 19:29 DC Sodium Chloride (Nacl 0.9%) 200 ml ASDIRECTED PRN IV SEE LABEL COMMENTS 08/25/21 07:50 08/26/21 07:49 DC Sodium Chloride (Nacl 0.9%) 200 ml ASDIRECTED PRN IV SEE LABEL COMMENTS 08/27/21 18:10 08/28/21 18:09 DC Sodium Chloride (Nacl 0.9%) 200 ml ASDIRECTED PRN IV SEE LABEL COMMENTS 08/28/21 21:00 08/29/21 20:59 DC Sodium Chloride (Nacl 0.9%) 200 ml ASDIRECTED PRN IV SEE LABEL COMMENTS 08/29/21 21:10 08/30/21 21:09 DC Sodium Chloride (Nacl 0.9%) 200 ml ASDIRECTED PRN IV SEE LABEL COMMENTS 08/31/21 09:50 09/01/21 09:49 DC Sodium Chloride (Nacl 0.9%) 200 ml ASDIRECTED PRN IV SEE LABEL COMMENTS 09/02/21 07:00 09/03/21 06:59 DC Sodium Chloride (Nacl 0.9%) 200 ml ASDIRECTED PRN IV SEE LABEL COMMENTS 09/04/21 07:55 09/05/21 07:54 Sucralfate (Carafate) 1 gm ACHS PO 08/22/21 17:30 09/04/21 10:21 Tiotropium [place] (Spiriva Handihaler) 1 inhalation DAILY@08 INH 08/31/21 08:00 09/04/21 09:58 Tramadol HCl (Ultram) 25 mg Q4HP PRN PO MODERATE PAIN (PS 5-7) 08/22/21 14:40 08/23/21 10:01 DC 08/23/21 08:47 DIXON CHENG MD Sep 04, 2021 12:16
--- NOTE | 2021-09-04 13:09 | IPN ---
PROGRESS NOTE DATE: 09/04/2021 SUBJECTIVE: Mrs. Montanez is seen this morning on her bedside. She is sitting in the wheelchair as usual. Her chronic dyspnea remains unchanged and she is still on 3 liters of oxygen. She denies any nausea, vomiting, fever or chills. She is scheduled for dialysis this afternoon. OBJECTIVE: VITAL SIGNS: Temperature is 97.8 degrees Fahrenheit, heart rate is 88 per minute and respiratory rate is 18 per minute. Blood pressure 132/67 mmHg and oxygen saturation 96%. HEAD: Atraumatic. NECK: Supple. JVD is not visible sitting upright. Hemodialysis catheter in right internal jugular vein is unchanged. There is no sign of infection. HEART: Heart sounds are regular. LUNGS: Diminished breath sounds at bases and a few coarse crepitations. ABDOMEN: Soft and nontender. Bowel sounds are normal. EXTREMITIES: Without any cyanosis or clubbing. Lower extremity edema is 1+ below the knees. NEUROLOGIC: She is at her baseline mentation without any focal deficits. LABORATORY DATA: Patient did not have any new labs done today. PROBLEMS: 1. Endstage renal disease. Patient is regularly dialyzed on Friday, and Friday schedule. She will be dialyzed this afternoon. 2. Congestive heart failure and hypoxemia. She has chronic lung disease and volume status is reasonably well compensated. We will plan to remove about 2 liters of fluid with dialysis today. She remains on chronic oxygen. 3. Anemia. Her anemia has been stable and hemoglobin was 9.7 yesterday. We will give her Aranesp 200 mcg this week instead of 100 mcg. 4. Left hip fracture status post surgery. She is making progress with the acute rehab. She is likely to go home tomorrow.
[2021-09-04 15:30] VITALS: BP 131/60
[2021-09-04 20:00] VITALS: BP 114/60
[2021-09-04] MEDS: MIRTAZAPINE 7.5MG PER 1/2 TABLET PO SCH (20:44)
[2021-09-04] MEDS: **NOTE PATIENT COMMENT** MISC XX SCH (20:47)
[2021-09-05] MEDS: LEVALBUTEROL HFA 45MCG/ACT 15 GM INHALER INH SCH (02:00)
[2021-09-05 05:00] VITALS: BP 140/68
[2021-09-05] MEDS: NORCO, ANEXSIA 5/325MG TABLET (HYDROcodone/ACETAMINOPHEN) PO SCH (06:11)
[2021-09-05] MEDS: HumaLOG INSULIN (NovoLOG) PER UNIT SC SCH (07:15)
[2021-09-05] MEDS: MIRALAX *UNIT DOSE* 17GM PACKET PO SCH (07:44)
[2021-09-05] MEDS: SENOKOT S TAB PO SCH (07:45)
[2021-09-05] MEDS: predniSONE 10 MG TAB PO SCH (08:09)
[2021-09-05] MEDS: DICLOFENAC EPOLAMINE 1.3 % PATCH TOP SCH (08:09)
[2021-09-05] MEDS: PANTOPRAZOLE 40MG TAB (PROTONIX) PO SCH (08:09)
[2021-09-05] MEDS: ATORVASTATIN 20 MG TAB PO SCH (08:09)
[2021-09-05] MEDS: SUCRALFATE 1 GM TAB PO SCH (08:09)
[2021-09-05] MEDS: AMIODARONE 200 MG TAB (PACERONE) PO SCH (08:09)
[2021-09-05] MEDS: HEPARIN SOD (PORCINE) 5000UNITS/ML 1ML VIAL/SYRINGE SC SCH (08:09)
[2021-09-05] MEDS: REMEDY PHYTOPLEX Z-GUARD PASTE 113GM TUBE (FROM STOREROOM PRODUCT) TOP SCH (08:10)
[2021-09-05] MEDS: ACETAMINOPHEN 500 MG TAB PO SCH (08:10)
[2021-09-05] MEDS: METOCLOPRAMIDE 5 MG TAB PO SCH (08:10)
[2021-09-05] MEDS: guaiFENesin 200 MG TAB PO SCH (08:10)
== END 2021-09-05 09:50 | disposition home health service (06) | DRG 559 ==
LOC: M PM&R 15:30
PROVIDERS: ADMIT Physical Medicine & Rehabilitation; ATTEND Physical Medicine & Rehabilitation
DX: S72.142D Displaced intertrochanteric fracture of left femur, subsequent encounter for closed fracture with routine healing (principal); N18.6 End stage renal disease; J44.9 Chronic obstructive pulmonary disease, unspecified; I48.0 Paroxysmal atrial fibrillation; I50.9 Heart failure, unspecified; E11.22 Type 2 diabetes mellitus with diabetic chronic kidney disease; E11.51 Type 2 diabetes mellitus with diabetic peripheral angiopathy without gangrene; I25.10 Atherosclerotic heart disease of native coronary artery without angina pectoris; Z86.16 Personal history of COVID-19; D63.1 Anemia in chronic kidney disease; D50.9 Iron deficiency anemia, unspecified; W18.30XD Fall on same level, unspecified, subsequent encounter; Y92.009 Unspecified place in unspecified non-institutional (private) residence as the place of occurrence of the external cause; Y93.9 Activity, unspecified; Y99.9 Unspecified external cause status; Z95.0 Presence of cardiac pacemaker; Z99.81 Dependence on supplemental oxygen; Z95.828 Presence of other vascular implants and grafts; Z98.62 Peripheral vascular angioplasty status; Z74.09 Other reduced mobility; Z74.1 Need for assistance with personal care; Z99.2 Dependence on renal dialysis; Z79.4 Long term (current) use of insulin; Z79.899 Other long term (current) drug therapy; Z88.5 Allergy status to narcotic agent; Z88.8 Allergy status to other drugs, medicaments and biological substances; Z66 Do not resuscitate; G47.33 Obstructive sleep apnea (adult) (pediatric); M81.0 Age-related osteoporosis without current pathological fracture; K21.9 Gastro-esophageal reflux disease without esophagitis; E87.6 Hypokalemia

== ENCOUNTER 2021-09-17 12:00 | Inpatient (IN) | payer MEDICARE ==
[~2021-09-17 12:00] MED LIST changes: -AMIO200T3 PO; +AMIO200T49 PO; +IPRAINH INH; +LEVAINH INH; +METO5TAB2 PO; +MIRT-62 PO; +SUCR1TA PO; +TIOT18INH INH
[2021-09-17 13:37] LABS: BASO % 0.5 % (0.0-1.0); EOS # 0.2 10^3/uL (0.0-0.5); EOS % 2.1 % (0.0-3.0); HEMOGLOBIN 9.7 g/dl (12.0-15.5); LYMPH # 1.4 10^3/uL (1.5-5.0); LYMPH % 16.8 % (24.0-44.0); MEAN CORPUSCULAR HGB CONC 27.7 g/dl (32.0-36.5); MEAN CORPUSCULAR VOLUME 108.4 fl (80.0-96.0); MONO # 0.9 10^3/uL (0.0-0.8); MONO % 10.2 % (2.0-8.0); NEUTROPHILS # 5.9 10^3/uL (1.5-8.5); NEUTROPHILS % 68.5 % (36.0-66.0); PLATELET COUNT, AUTOMATED 235 10^3/uL (150-450); RED BLOOD COUNT 3.23 10^6/uL (4.00-5.40); WHITE BLOOD COUNT 8.6 10^3/uL (4.0-10.0)
[2021-09-17 14:13] LABS: ALBUMIN 2.5 GM/DL (3.2-5.2); ALT/SGPT 20 U/L (12-78); BILIRUBIN,DIRECT < 0.1 MG/DL (0.0-0.2); BILIRUBIN,TOTAL 0.3 MG/DL (0.2-1.0); BLOOD UREA NITROGEN 55 MG/DL (7-18); CALCIUM LEVEL 9.3 MG/DL (8.8-10.2); CARBON DIOXIDE LEVEL 27 MEQ/L (21-32); CHLORIDE LEVEL 114 MEQ/L (98-107); CREATININE FOR GFR 2.03 MG/DL (0.55-1.30); FREE T4 1.18 NG/DL (0.76-1.46); GLOMERULAR FILTRATION RATE 25.5 (>39); GLUCOSE, FASTING 70 MG/DL (70-100); POTASSIUM SERUM 5.8 MEQ/L (3.5-5.1); SODIUM LEVEL 146 MEQ/L (136-145); TOTAL PROTEIN 6.1 GM/DL (6.4-8.2)
[2021-09-17] MEDS ORDERED: GLIP2.5T6 PO (15:06)
[2021-09-17] MEDS ORDERED: MORPHINE 2 MG/ML 1ML VIAL (J2270) IV PRN (15:25)
[2021-09-17] MEDS ORDERED: FLEET ENEMA PR PRN (15:25)
[2021-09-17] MEDS ORDERED: HYOSCYAMINE SULFATE 0.125 MG SUBL TABLET PO PRN (15:25)
[2021-09-17] MEDS ORDERED: ACETAMINOPHEN TAB 650MG DOSE (2X325MG) PO PRN (15:25)
[2021-09-17] MEDS ORDERED: SCOPOLAMINE 1MG TRANSDERMAL PATCH TOP PRN (15:25)
[2021-09-17] MEDS ORDERED: LORazepam 1 MG TAB PO PRN (15:25)
[2021-09-17] MEDS ORDERED: BISACODYL 10 MG SUPP PR PRN (15:25)
[2021-09-17] MEDS ORDERED: ACETAMINOPHEN 650 MG SUPP PR PRN (15:25)
[2021-09-17] MEDS ORDERED: ONDANSETRON 4 MG ORAL DISINTEGRATING TAB PO PRN (15:25)
[2021-09-17] MEDS ORDERED: LORazepam 2 MG/ML VIAL IV PRN (15:25)
[2021-09-17] MEDS ORDERED: ATROPINE SULFATE 1% OP SOLN 2 ML BTL SL PRN (15:25)
[2021-09-17] MEDS ORDERED: ONDANSETRON 4MG/2ML VIAL IV PRN (15:25)
[2021-09-17] MEDS ORDERED: DILT120C78 PO (16:21)
[2021-09-17] MEDS ORDERED: ATOR1TAB21 PO (16:21)
[2021-09-17] MEDS ORDERED: ATRO0.063 INH (16:21)
[2021-09-17] MEDS ORDERED: METO5TAB2 PO (16:21)
[2021-09-17] MEDS ORDERED: TUMS500C PO (16:21)
[2021-09-17] MEDS ORDERED: FERR324T2 PO (16:21)
[2021-09-17] MEDS ORDERED: MUCI600T31 PO (16:21)
[2021-09-17] MEDS ORDERED: SITA50TAB PO (16:21)
[2021-09-17] MEDS ORDERED: BREO1INH3 INH (16:21)
[2021-09-17] MEDS ORDERED: LEVA45AE INH (16:21)
[2021-09-17] MEDS ORDERED: HYDR-3713 PO (16:21)
[2021-09-17] MEDS ORDERED: PRED10TA2 PO (16:21)
[2021-09-17] MEDS ORDERED: FOLI1TAB11 PO (16:21)
[2021-09-17] MEDS ORDERED: PANT-23 PO (16:21)
[2021-09-17] MEDS ORDERED: MIRT-62 PO (16:21)
[2021-09-17] MEDS ORDERED: CALC1CAP31 PO (16:21)
[2021-09-17] MEDS ORDERED: SUCR1TAB56 PO (16:21)
[2021-09-17] MEDS ORDERED: IPRA2IN NEB (16:21)
[2021-09-17] MEDS ORDERED: ROSU20TA5 PO (16:21)
[2021-09-17] MEDS ORDERED: SPIR1CAP INH (16:21)
[2021-09-17] MEDS ORDERED: SYMB16INH INH (16:21)
[2021-09-17] MEDS ORDERED: AMIO200T49 PO (16:21)
[2021-09-17] MEDS ORDERED: HOME MED LIST COMPLETE! XX SCH (16:25)
[2021-09-17 19:24] VITALS: BP 136/65
[2021-09-18] MEDS: MORPHINE 10MG/0.5ML ORAL CONCENTRATE SOLUTION U/D SL PRN ×3 (01:03→13:30)
[2021-09-18] MEDS ORDERED: MORP1SOL5 PO (09:50)
[2021-09-18] MEDS ORDERED: HYOS125TA PO (09:50)
[2021-09-18] MEDS ORDERED: ATIV1TAB10 PO (09:50)
== END 2021-09-18 13:45 | disposition hospice, home (50) | DRG 951 ==
LOC: EDBD 12:00 → M ED 12:00 → M ED INP 15:24 → ENRESERV 19:08 → M MS5PR 20:50
PROVIDERS: ADMIT Family Medicine; ATTEND Internal Medicine
DX: Z51.5 Encounter for palliative care (principal); N18.6 End stage renal disease; I13.2 Hypertensive heart and chronic kidney disease with heart failure and with stage 5 chronic kidney disease, or end stage renal disease; N25.81 Secondary hyperparathyroidism of renal origin; J96.11 Chronic respiratory failure with hypoxia; J96.12 Chronic respiratory failure with hypercapnia; D63.1 Anemia in chronic kidney disease; J44.9 Chronic obstructive pulmonary disease, unspecified; E11.22 Type 2 diabetes mellitus with diabetic chronic kidney disease; I50.9 Heart failure, unspecified; Z66 Do not resuscitate; I25.10 Atherosclerotic heart disease of native coronary artery without angina pectoris; K21.9 Gastro-esophageal reflux disease without esophagitis; G47.33 Obstructive sleep apnea (adult) (pediatric); I48.0 Paroxysmal atrial fibrillation; R91.8 Other nonspecific abnormal finding of lung field; E79.0 Hyperuricemia without signs of inflammatory arthritis and tophaceous disease; Z95.0 Presence of cardiac pacemaker; Z95.828 Presence of other vascular implants and grafts; Z87.891 Personal history of nicotine dependence; Z99.2 Dependence on renal dialysis; Z79.84 Long term (current) use of oral hypoglycemic drugs; Z79.899 Other long term (current) drug therapy; Z88.5 Allergy status to narcotic agent; Z88.8 Allergy status to other drugs, medicaments and biological substances; Z91.15 Patient's noncompliance with renal dialysis; Z99.81 Dependence on supplemental oxygen